=== PATIENT | female | born 1940 | race Caucasian/White ===

== ENCOUNTER 2023-06-19 10:44 | Emergency (ER) | payer MEDICARE, OTHER, SELFPAY ==
[2023-06-19] VITALS (34 sets, daily range): BP systolic 134–176; BP diastolic 48–64; PULSE 67–80; TEMP 36.6; O2SAT 90–100; BMI 21.8
--- NOTE | 2023-06-19 11:02 | ED.GENADUL1 ---
HPI HPI - General Adult General Chief complaint: Weakness Stated complaint: BLOOD PRESSURE Time Seen by Provider: 06/19/23 10:57 Source: patient Mode of arrival: ambulance Limitations: no limitations History of Present Illness HPI narrative: Brought by squad to the emergency room. Initially she called them because she has had a cough for couple of days. Initially she had some mucus. She did not see any blood in it. She did not have myalgias arthralgias sore throat or influenza type symptoms. She said today she continued to have a little bit of a cough but then she says she just did not feel very good and felt weak so she called for the paramedics. She did not have any chest pain pressure or heaviness in her chest. She he was seen by the paramedics who gave her nitroglycerin followed by labetalol and her initial blood pressure that was elevated by the report became quite low. On arrival here her blood pressure has stabilized. She is not having any discomfort heaviness or discomfort in her chest or abdomen area. She has not had nausea vomiting or diarrhea symptoms recently. She has not had any real change in her medications recently. 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 Related Data Home Medications ?Medication ?Instructions ?Recorded ?Confirmed amlodipine 5 mg tablet 5 mg PO DAILY 06/19/23 06/19/23 atorvastatin 80 mg tablet 40 mg PO .qhs 06/19/23 06/19/23 clopidogrel 75 mg tablet 75 mg PO DAILY 06/19/23 06/19/23 levothyroxine 100 mcg tablet 100 mcg PO DAILY 06/19/23 06/19/23 metoprolol succinate 25 mg 12.5 mg PO DAILY 06/19/23 06/19/23 tablet,extended release 24 hr prednisone 5 mg tablet 10 mg PO DAILY PRN flares 06/19/23 06/19/23 Allergies Allergy/AdvReac Type Severity Reaction Status Date / Time No Known Drug Allergies Allergy Verified 06/19/23 10:51 Opioid HPI Opioid Management Most Recent Opioid Data: No Data to Display Exam Narrative Exam Narrative: Patient was seen shortly after arrival she is awake alert oriented x 3 good historian denies any symptoms or discomfort at this time but still says she just feels a little bit weak. She is able to complete sentences she has no stridor she has no recurring cough or evidence of bronchospasm Her skin is warm and dry there is no clamminess or diaphoresis, mucous membranes are moist and pink. There is no scleral icterus or evidence of pallor Her lungs were clear with no wheeze rales or rhonchi. She does not have a bronchospastic Cough. Heart rate and rhythm were regular although her EKG showed ventricular trigeminy. She does not have any epigastric pain. Abdominal area is soft and supple with no guarding rebound rigidity or discomfort to palpation. Her extremities have good warmth no evidence of hypoperfusion no evidence of swelling or edema. Constitutional Vital Signs, click to edit/add: Last Vital Signs Temp 97.9 F 06/19/23 10:48 Pulse 68 06/19/23 13:15 Resp 31 H 06/19/23 11:45 BP 166/56 H 06/19/23 13:15 Pulse Ox 97 06/19/23 11:45 O2 Del Method Room Air 06/19/23 10:48 Course Vital Signs Vital signs: Vital Signs Temperature 97.9 F 06/19/23 10:48 Pulse Rate 70 06/19/23 10:48 Respiratory Rate 18 06/19/23 10:48 Blood Pressure 144/48 H 06/19/23 10:48 Pulse Oximetry 100 06/19/23 10:48 Oxygen Delivery Method Room Air 06/19/23 10:48 Temperature 97.9 F 06/19/23 10:48 Pulse Rate 68 06/19/23 13:15 Respiratory Rate 31 H 06/19/23 11:45 Blood Pressure 166/56 H 06/19/23 13:15 Pulse Oximetry 97 06/19/23 11:45 Oxygen Delivery Method Room Air 06/19/23 10:48 Medical Decision Making [facility] Narrative Medical decision making narrative: We did an extensive workup on this patient's symptoms. A respiratory panel was negative for all pathogens. Her lactate was modestly elevated but was coming down. She voided very efficiently and well her urine does not show any evidence urinary infection. She never had any further hypotension. I believe she was overmedicated by paramedics before arrival here. I will discuss her case for appropriate follow-up with her primary care doctor. Lab Data Labs: Lab Results 06/19/23 06/19/23 06/19/23 Range/Units 11:23 11:24 12:41 WBC 11.3 H (4.0-11.0) 10^3/uL RBC 4.28 (4.20-5.40) 10^6/uL Hgb 12.3 (12.0-16.0) g/dL Hct 37.6 (36.0-48.0) % MCV 87.9 (81.0-99.0) fL MCH 28.7 (26.7-34.0) pg MCHC 32.7 (29.9-35.2) g/dL RDW 13.1 (11.0-15.0) % Plt Count 222 (150-450) 10^3/uL MPV 10.7 (9.5-13.5) fL Neut % (Auto) 81.5 H (43.0-75.0) % Lymph % (Auto) 8.8 L (20.5-60.0) % [place] % (Auto) 8.2 (1.7-12.0) % Eos % (Auto) 0.7 L (0.9-7.0) % Baso % (Auto) 0.4 (0.2-2.0) % Neut # (Auto) 9.2 H (1.4-6.5) 10^3/uL Lymph # (Auto) 1.0 L (1.2-3.8) 10^3/uL [place] # (Auto) 0.9 H (0.3-0.8) 10^3/uL Eos # (Auto) 0.1 (0.0-0.7) 10^3/uL Baso # (Auto) 0.1 (0.0-0.1) 10^3/uL Abs Immat Gran (auto) 0.04 H (0.00-0.03) 10^3/uL Imm/Tot Granulo (auto) 0.4 (0.0-0.5) % PT 10.8 (9.0-11.6) sec INR 1.02 D-Dimer 1.10 H* (<=0.59) mg/L FEU VBG pH (7.330-7.430) VBG pCO2 (40.0-52.0) mmHg Sodium 131 L (136-145) mmol/L Potassium 3.2 L (3.5-5.1) mmol/L Chloride 97 L (98-107) mmol/L Carbon Dioxide 20.3 L (21.0-32.0) mmol/L Anion Gap 16.9 BUN 15.0 (7.0-18.0) mg/dL Creatinine 0.97 (0.55-1.02) mg/dL Est GFR ( Amer) >60 (>=60) Est GFR (Non-Af Amer) 55 L (>=60) BUN/Creatinine Ratio 15.5 Glucose 139 H (74-106) mg/dL Lactate 3.4 H* (0.4-2.0) mmol/L Calcium 8.5 (8.5-10.1) mg/dL Total Bilirubin 0.5 (0.2-1.0) mg/dL AST 23 (15-37) U/L ALT 22 (14-59) U/L Alkaline Phosphatase 79 (46-116) U/L Troponin I High Sens 40.5 (4.0-51.3) pg/mL NT-Pro-B Natriuret Pep 811.0 (<=1800.0) pg/mL Total Protein 6.7 (6.4-8.2) g/dL Albumin 2.9 L (3.4-5.0) g/dL Globulin 3.8 g/dL Albumin/Globulin Ratio 0.8 Procalcitonin <0.05 (0.00-0.50) ng/mL Urine Color Lt. yellow (YELLOW) Urine Clarity Clear (CLEAR) Urine pH 7.5 (5.0-9.0) Ur Specific [place] 1.015 (1.005-1.025) Urine Protein Negative (NEG/TRACE) mg/dL Urine Glucose (UA) Negative (NEGATIVE) mg/dL Urine Ketones Negative (NEGATIVE) mg/dL Urine Occult Blood Small A (NEGATIVE) Urine Nitrite Negative (NEGATIVE) Urine Bilirubin Negative (NEGATIVE) Urine Urobilinogen 0.2 (0.2-1.0) EU/dL Ur Leukocyte Esterase Negative (NEGATIVE) Urine RBC 5-10 A (0-2) #/HPF Urine WBC 0-2 A (NONE SEEN) #/HPF Ur Squamous Epith Cells Rare (NONE/RARE) #/LPF Urine Crystals None seen (None Seen) #/HPF Urine Bacteria Trace A (NONE SEEN) #/HPF Urine Casts None seen (NONE SEEN) #/LPF Urine Mucus None seen (NONE SEEN) Ur Culture Indicated? No Adenovirus (PCR) Not detected (NOT DETECTE) C. pneumoniae DNA (PCR) Not detected (NOT DETECTE) Coronavirus Type OC43 Not detected (NOT DETECTE) Coronavirus Type HKU1 Not detected (NOT DETECTE) Coronavirus Type 229E Not detected (NOT DETECTE) Coronavirus Type NL63 Not detected (NOT DETECTE) Human Metapneumovir PCR Not detected (NOT DETECTE) M. pneumoniae (PCR) Not detected (NOT DETECTE) Parainfluenza PCR Not detected (NOT DETECTE) Parainfluenza 2 (PCR) Not detected (NOT DETECTE) Parainfluenza 3 (PCR) Not detected (NOT DETECTE) Parainfluenza 4 (PCR) Not detected (NOT DETECTE) RSV (RT-PCR) Not detected (NOT DETECTE) Entero/Rhino (PCR) Not detected (NOT DETECTE) SARS-CoV-2 (PCR) Not detected (NOT DETECTE) Bordetella pertussis (PCR) Not detected (NOT DETECTE) B parapertussis DNA PCR Not detected (NOT DETECTE) Influenza Type A (PCR) Not detected (NOT DETECTE) Influenza Type B (PCR) Not detected (NOT DETECTE) 06/19/23 06/19/23 Range/Units 12:55 14:26 WBC (4.0-11.0) 10^3/uL RBC (4.20-5.40) 10^6/uL Hgb (12.0-16.0) g/dL Hct (36.0-48.0) % MCV (81.0-99.0) fL MCH (26.7-34.0) pg MCHC (29.9-35.2) g/dL RDW (11.0-15.0) % Plt Count (150-450) 10^3/uL MPV (9.5-13.5) fL Neut % (Auto) (43.0-75.0) % Lymph % (Auto) (20.5-60.0) % [place] % (Auto) (1.7-12.0) % Eos % (Auto) (0.9-7.0) % Baso % (Auto) (0.2-2.0) % Neut # (Auto) (1.4-6.5) 10^3/uL Lymph # (Auto) (1.2-3.8) 10^3/uL [place] # (Auto) (0.3-0.8) 10^3/uL Eos # (Auto) (0.0-0.7) 10^3/uL Baso # (Auto) (0.0-0.1) 10^3/uL Abs Immat Gran (auto) (0.00-0.03) 10^3/uL Imm/Tot Granulo (auto) (0.0-0.5) % PT (9.0-11.6) sec INR D-Dimer (<=0.59) mg/L FEU VBG pH 7.415 (7.330-7.430) VBG pCO2 33.5 L (40.0-52.0) mmHg Sodium (136-145) mmol/L Potassium (3.5-5.1) mmol/L Chloride (98-107) mmol/L Carbon Dioxide (21.0-32.0) mmol/L Anion Gap BUN (7.0-18.0) mg/dL Creatinine (0.55-1.02) mg/dL Est GFR ( Amer) (>=60) Est GFR (Non-Af Amer) (>=60) BUN/Creatinine Ratio Glucose (74-106) mg/dL Lactate 3.3 H* (0.4-2.0) mmol/L Calcium (8.5-10.1) mg/dL Total Bilirubin (0.2-1.0) mg/dL AST (15-37) U/L ALT (14-59) U/L Alkaline Phosphatase (46-116) U/L Troponin I High Sens (4.0-51.3) pg/mL NT-Pro-B Natriuret Pep (<=1800.0) pg/mL Total Protein (6.4-8.2) g/dL Albumin (3.4-5.0) g/dL Globulin g/dL Albumin/Globulin Ratio Procalcitonin (0.00-0.50) ng/mL Urine Color (YELLOW) Urine Clarity (CLEAR) Urine pH (5.0-9.0) Ur Specific [place] (1.005-1.025) Urine Protein (NEG/TRACE) mg/dL Urine Glucose (UA) (NEGATIVE) mg/dL Urine Ketones (NEGATIVE) mg/dL Urine Occult Blood (NEGATIVE) Urine Nitrite (NEGATIVE) Urine Bilirubin (NEGATIVE) Urine Urobilinogen (0.2-1.0) EU/dL Ur Leukocyte Esterase (NEGATIVE) Urine RBC (0-2) #/HPF Urine WBC (NONE SEEN) #/HPF Ur Squamous Epith Cells (NONE/RARE) #/LPF Urine Crystals (None Seen) #/HPF Urine Bacteria (NONE SEEN) #/HPF Urine Casts (NONE SEEN) #/LPF Urine Mucus (NONE SEEN) Ur Culture Indicated? Adenovirus (PCR) (NOT DETECTE) C. pneumoniae DNA (PCR) (NOT DETECTE) Coronavirus Type OC43 (NOT DETECTE) Coronavirus Type HKU1 (NOT DETECTE) Coronavirus Type 229E (NOT DETECTE) Coronavirus Type NL63 (NOT DETECTE) Human Metapneumovir PCR (NOT DETECTE) M. pneumoniae (PCR) (NOT DETECTE) Parainfluenza PCR (NOT DETECTE) Parainfluenza 2 (PCR) (NOT DETECTE) Parainfluenza 3 (PCR) (NOT DETECTE) Parainfluenza 4 (PCR) (NOT DETECTE) RSV (RT-PCR) (NOT DETECTE) Entero/Rhino (PCR) (NOT DETECTE) SARS-CoV-2 (PCR) (NOT DETECTE) Bordetella pertussis (PCR) (NOT DETECTE) B parapertussis DNA PCR (NOT DETECTE) Influenza Type A (PCR) (NOT DETECTE) Influenza Type B (PCR) (NOT DETECTE) Discharge Plan Discharge Stand Alone Forms: Portal Instructions Chief Complaint: Weakness Clinical Impression: Weakness Patient Disposition: Home, Self-Care Time of Disposition Decision: 15:28 Prescriptions / Home Meds: No Action amlodipine 5 mg tablet 5 mg PO DAILY atorvastatin 80 mg tablet 40 mg PO .qhs clopidogrel 75 mg tablet 75 mg PO DAILY levothyroxine 100 mcg tablet 100 mcg PO DAILY metoprolol succinate 25 mg tablet extended release 24 hr 12.5 mg PO DAILY prednisone 5 mg tablet 10 mg PO DAILY PRN (Reason: flares) Print Language: Lithuanian Additional Instructions: Continue present medication. Follow-up with your primary care doctor this week. Return should there be any change in your symptoms Referrals: Jonathon Alvarez MD [Primary Care Provider] - 1 week
--- NOTE | 2023-06-19 11:06 | XR_ITS ---
The [address] [address] Patient Name: MARISOL BARBOSA MRN: [id number] date: 1940 Sex: F Assigned Patient Location: ER Current Patient Location: ER Accession/Order Number: [id number] Exam Date: 06/19/2023 11:35 Report Date: 06/19/2023 13:17 At the request of: NATASHA GARG Procedure: XR chest 1V PROCEDURE: XR chest 1V, 06/19/2023 11:35 AM EDT CLINICAL INDICATIONS: Cough, symptoms for 3 days, weakness, hypertension COMPARISON: 01/02/2010 TECHNIQUE: Upright portable chest 1135 hours FINDINGS: There has been previous sternotomy. The heart is enlarged. Moderate thoracic aortic calcified plaque noted. Lung volumes upper normal. Trace bronchial wall thickening noted. Acute consolidation, pleural effusion, or pneumothorax is not demonstrated. Bilateral shoulder arthropathy is seen. Acute osseous pathology is not evident. Regional soft tissues normal. XR/XR chest 1V IMPRESSION: 1. Cardiomegaly 2. Trace bronchial wall thickening noted. Mild bronchitis, airways disease could present this pattern. 3. No acute pulmonary consolidation, pleural effusion or pneumothorax Electronically authenticated by: SAMANTA TABARES Date: 06/19/2023 13:17
--- NOTE | 2023-06-19 11:06 | ECG_ITS ---
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
[2023-06-19] MEDS: 0.9 % SODIUM CHLORIDE 1,000 ML 999 ML IV (11:10)
[2023-06-19 11:36] LABS: Basophils Absolute Auto 0.1 10^3/uL (0.0-0.1); Basophils Percent Auto 0.4 % (0.2-2.0); Eosinophils Absolute Auto 0.1 10^3/uL (0.0-0.7); Eosinophils Percent Auto 0.7 % (0.9-7.0); Hematocrit 37.6 % (36.0-48.0); Hemoglobin 12.3 g/dL (12.0-16.0); Immature Granulocytes Abs Auto 0.04 10^3/uL (0.00-0.03); Immature Granulocytes Pct Auto 0.4 % (0.0-0.5); Lymphocytes Percent Auto 8.8 % (20.5-60.0); Mean Corpuscular HGB Conc 32.7 g/dL (29.9-35.2); Mean Corpuscular Hemoglobin 28.7 pg (26.7-34.0); Mean Corpuscular Volume 87.9 fL (81.0-99.0); Mean Platelet Volume 10.7 fL (9.5-13.5); Monocytes Absolute Auto 0.9 10^3/uL (0.3-0.8); Monocytes Percent Auto 8.2 % (1.7-12.0); Neutrophils Absolute Auto 9.2 10^3/uL (1.4-6.5); Neutrophils Percent Auto 81.5 % (43.0-75.0); Platelet Count 222 10^3/uL (150-450); Red Blood Count 4.28 10^6/uL (4.20-5.40); Red Cell Distribution Width 13.1 % (11.0-15.0); White Blood Count 11.3 10^3/uL (4.0-11.0)
[2023-06-19 11:36] LABS: Adenovirus NOT DETECTED (NOT DETECTE); Bordetella parapertussis NOT DETECTED (NOT DETECTE); Coronavirus 229E NOT DETECTED (NOT DETECTE); Coronavirus HKU1 NOT DETECTED (NOT DETECTE); Coronavirus NL63 NOT DETECTED (NOT DETECTE); Coronavirus OC43 NOT DETECTED (NOT DETECTE); Human Metapneumovirus NOT DETECTED (NOT DETECTE); Human Rhinovirus/Enterovirus NOT DETECTED (NOT DETECTE); Influenza A NOT DETECTED (NOT DETECTE); Influenza B NOT DETECTED (NOT DETECTE); Mycoplasma pneumoniae NOT DETECTED (NOT DETECTE); Parainfluenza Virus 1 NOT DETECTED (NOT DETECTE); Parainfluenza Virus 2 NOT DETECTED (NOT DETECTE); Parainfluenza Virus 3 NOT DETECTED (NOT DETECTE); Parainfluenza Virus 4 NOT DETECTED (NOT DETECTE); Respiratory Syncytial Virus NOT DETECTED (NOT DETECTE); SARS-CoV-2 NOT DETECTED (NOT DETECTE)
--- NOTE | 2023-06-19 11:39 | ECG_ITS ---
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
[2023-06-19] MEDS: ONDANSETRON PF 4 MG/2 ML VIAL IV (11:45)
[2023-06-19 12:05] LABS: Alanine Aminotransferase 22 U/L (14-59); Albumin Globulin Ratio 0.8; Albumin Level 2.9 g/dL (3.4-5.0); Alkaline Phosphatase 79 U/L (46-116); Anion Gap 16.9; Aspartate Amino Transferase 23 U/L (15-37); BUN Creatinine Ratio 15.5; Bilirubin Total 0.5 mg/dL (0.2-1.0); Calcium 8.5 mg/dL (8.5-10.1); Carbon Dioxide 20.3 mmol/L (21.0-32.0); Chloride 97 mmol/L (98-107); Estimated GFR (African America >60 (>=60); Estimated GFR (Non-African Ame 55 (>=60); Globulin 3.8 g/dL; Glucose 139 mg/dL (74-106); Potassium 3.2 mmol/L (3.5-5.1); Sodium 131 mmol/L (136-145); Total Protein 6.7 g/dL (6.4-8.2); Troponin I High Sensitivity 40.5 pg/mL (4.0-51.3)
[2023-06-19 12:09] LABS: Lactate/Lactic Acid 3.4 mmol/L (0.4-2.0)
--- NOTE | 2023-06-19 12:24 | CT_ITS ---
The [address] [address] Patient Name: MARISOL BARBOSA MRN: [id number] date: 1940 Sex: F Assigned Patient Location: ER Current Patient Location: ER Accession/Order Number: [id number] Exam Date: 06/19/2023 13:30 Report Date: 06/19/2023 15:16 At the request of: NATASHA GARG Procedure: CT angio chest EXAMINATION: CT angio chest HISTORY: Weakness/elevated D-dimer COMPARISON: None. TECHNIQUE: Axial scans obtained postcontrast. Type and amount of contrast specified at institution. MIP (maximum intensity projection) images or 3D post processing was performed. Dose reduction techniques were achieved by using automated exposure control and/or adjustment of mA and/or kV according to patient size and/or use of iterative reconstruction technique. FINDINGS: Bolus opacification of the pulmonary arteries was adequate for purposes of diagnosis. There is no central, lobar, or segmental pulmonary arterial filling defect to suggest pulmonary embolus. Focal peripheral patchy infiltrate lateral segment left lower lobe likely atelectasis. Lungs otherwise clear and expanded. No pneumothorax. No hilar or mediastinal lymphadenopathy. Prior sternotomy and CABG. Cardiac chambers are normal in size. No pericardial effusion. Atherosclerotic changes involving wall of aorta with calcified plaque. No dissection or aneurysm. No pulmonary venous congestion. There is no pleural effusion or mass. No pulmonary nodules or masses are identified. No acute upper abdominal findings. Cholecystectomy. There is no body wall mass. There is no destructive osseous process. CT/CT angio chest IMPRESSION: 1. Negative for acute PE. 2. Localized scarring and atelectasis lateral segment left lower lobe. Electronically authenticated by: BRITTANI SANCHEZ Date: 06/19/2023 15:16
[2023-06-19] MEDS: 0.9 % SODIUM CHLORIDE 1,641 ML 547 ML IV (12:45)
[2023-06-19 12:52] LABS: INR 1.02; Prothrombin Time 10.8 sec (9.0-11.6)
[2023-06-19 13:08] LABS: PCO2 VBG 33.5 mmHg (40.0-52.0); pH VBG 7.415 (7.330-7.430)
[2023-06-19 13:09] LABS: Bilirubin Urine NEGATIVE (NEGATIVE); Blood Urine SMALL (NEGATIVE); Clarity Urine CLEAR (CLEAR); Color Urine LT. YELLOW (YELLOW); Glucose Urine UA NEGATIVE (NEGATIVE); Ketones Urine NEGATIVE (NEGATIVE); Leukocyte Esterase Urine NEGATIVE (NEGATIVE); Nitrite Urine NEGATIVE (NEGATIVE); Protein Urine NEGATIVE (NEG/TRACE); Specific Gravity Urine 1.015 (1.005-1.025); Urobilinogen Urine 0.2 EU/dL (0.2-1.0); pH Urine 7.5 (5.0-9.0)
[2023-06-19 13:14] LABS: Urine Microscopic Indicated YES
[2023-06-19 13:17] LABS: Bacteria Urine TRACE #/HPF (NONE SEEN); Cast Seen? NONE SEEN #/LPF (NONE SEEN); Crystals Seen? None Seen #/HPF (None Seen); Mucus Urine NONE SEEN (NONE SEEN); Squamous Epithelial Cell Urine RARE #/LPF (NONE/RARE); Urine Culture Indicated NO; WBC Urine 0-2 #/HPF (NONE SEEN)
[2023-06-19 13:17] LABS: PROCALCITONIN <0.05 ng/mL (0.00-0.50)
--- NOTE | 2023-06-19 13:27 | CT_ITS ---
The [address] [address] Patient Name: MARISOL BARBOSA MRN: [id number] date: 1940 Sex: F Assigned Patient Location: ER Current Patient Location: ER Accession/Order Number: [id number] Exam Date: 06/19/2023 13:30 Report Date: 06/19/2023 13:58 At the request of: NATASHA GARG Procedure: CT head/brain wo con EXAM: CT head/brain wo con HISTORY: dizziness,HTN COMPARISON: CT brain 01/02/2022 TECHNIQUE: Axial CT scans through the head were obtained without IV contrast administration. Dose reduction techniques were achieved by using: automated exposure control and/or adjustment of mA and /or kV according to patient size and/or use of iterative reconstruction technique. FINDINGS: There is no evidence of acute intracranial hemorrhage or abnormal extra-axial fluid collection. No mass effect or midline shift is seen. There is no evidence of large acute territorial infarction. There is no hydrocephalus. The cortical sulci and ventricles are within normal limits. Moderate decreased attenuation of the supratentorial white matter, likely represents chronic microvascular ischemia. To the limit of CT, the posterior fossa appears unremarkable. Mild atherosclerotic calcifications of bilateral intracranial carotid arteries. No definite acute fracture is identified. Soft tissues are unremarkable. The visualized orbits show no abnormality. The visualized paranasal sinuses show no air-fluid level. Mastoid air cells are clear. CT/CT head/brain wo con IMPRESSION: No CT evidence of acute intracranial abnormality. If there is sufficient clinical concern for acute brain parenchymal pathology, consider MRI for further evaluation. Moderate chronic microvascular ischemia. Electronically authenticated by: TAN ARCEU Date: 06/19/2023 13:58
[2023-06-19 15:13] LABS: Lactate/Lactic Acid 3.3 mmol/L (0.4-2.0)
== END 2023-06-19 16:06 | disposition home or self-care (01) ==
PROVIDERS: Emergency Provider Emergency Medicine Emergency Medical Services; Family Provider Internal Medicine Interventional Cardiology; PCP Family Medicine
DX: R53.1 Weakness (principal); Z20.822 Contact with and (suspected) exposure to COVID-19; R79.1 Abnormal coagulation profile; Z79.899 Other long term (current) drug therapy; Z79.890 Hormone replacement therapy; Z79.02 Long term (current) use of antithrombotics/antiplatelets; Z95.1 Presence of aortocoronary bypass graft
CPT/HCPCS: 0202U; 36415; 70450; 71045; 71275; 80053; 81001; 82800; 83605; 83880; 84145; 84484; 85025; 85378; 85610; 87040; 93005; 96374; 99285; Q9967

== ENCOUNTER 2023-07-15 07:22 | Outpatient (OUT) | payer MEDICARE, OTHER, SELFPAY ==
[2023-07-15 08:01] LABS: Basophils Absolute Auto 0.1 10^3/uL (0.0-0.1); Basophils Percent Auto 0.8 % (0.2-2.0); Eosinophils Absolute Auto 0.3 10^3/uL (0.0-0.7); Eosinophils Percent Auto 4.1 % (0.9-7.0); Hematocrit 41.2 % (36.0-48.0); Hemoglobin 13.3 g/dL (12.0-16.0); Immature Granulocytes Abs Auto 0.02 10^3/uL (0.00-0.03); Immature Granulocytes Pct Auto 0.3 % (0.0-0.5); Lymphocytes Absolute Auto 2.1 10^3/uL (1.2-3.8); Lymphocytes Percent Auto 28.2 % (20.5-60.0); Mean Corpuscular HGB Conc 32.3 g/dL (29.9-35.2); Mean Corpuscular Hemoglobin 28.7 pg (26.7-34.0); Mean Corpuscular Volume 88.8 fL (81.0-99.0); Mean Platelet Volume 10.4 fL (9.5-13.5); Monocytes Absolute Auto 0.7 10^3/uL (0.3-0.8); Monocytes Percent Auto 9.9 % (1.7-12.0); Neutrophils Absolute Auto 4.1 10^3/uL (1.4-6.5); Neutrophils Percent Auto 56.7 % (43.0-75.0); Platelet Count 288 10^3/uL (150-450); Red Blood Count 4.64 10^6/uL (4.20-5.40); Red Cell Distribution Width 13.9 % (11.0-15.0); White Blood Count 7.3 10^3/uL (4.0-11.0)
[2023-07-15 10:32] LABS: Alanine Aminotransferase 22 U/L (14-59); Albumin Globulin Ratio 0.8; Albumin Level 3.3 g/dL (3.4-5.0); Alkaline Phosphatase 82 U/L (46-116); Anion Gap 12.8; Aspartate Amino Transferase 20 U/L (15-37); BUN Creatinine Ratio 16.5; Bilirubin Direct 0.1 mg/dL (0.0-0.2); Bilirubin Total 0.5 mg/dL (0.2-1.0); Calcium 9.4 mg/dL (8.5-10.1); Chloride 103 mmol/L (98-107); Chol HDL Ratio 2.2; Cholesterol 146 mg/dL (<=200); Estimated GFR (African America >60 (>=60); Estimated GFR (Non-African Ame 51 (>=60); Free T3 2.54 pg/mL (2.18-3.98); Globulin 4.1 g/dL; Glucose 91 mg/dL (74-106); HDL Cholesterol 67 mg/dL (40-60); Potassium 3.8 mmol/L (3.5-5.1); Sodium 140 mmol/L (136-145); Thyroid Stimulating Hormone 0.543 uIU/mL (0.358-3.740); Total Protein 7.4 g/dL (6.4-8.2); Triglycerides 98 mg/dL (<=150); VLDL CHOLESTEROL 19.6 mg/dL
[2023-07-15 10:39] LABS: Free T4 1.33 ng/dL (0.76-1.46)
== END 2023-07-15 07:23 | disposition home or self-care (01) ==
LOC: LAB 07:24
PROVIDERS: Family Provider Internal Medicine Interventional Cardiology; PCP Family Medicine; Visit Provider Family Medicine
DX: E78.5 Hyperlipidemia, unspecified (principal); N18.31 Chronic kidney disease, stage 3a; Z79.899 Other long term (current) drug therapy; E03.9 Hypothyroidism, unspecified; I12.9 Hypertensive chronic kidney disease with stage 1 through stage 4 chronic kidney disease, or unspecified chronic kidney disease
CPT/HCPCS: 36415; 80048; 80061; 80076; 82306; 84439; 84443; 84481; 85025

== ENCOUNTER 2023-09-26 10:44 | Observation (INO) | payer MEDICARE, OTHER, SELFPAY ==
[2023-09-26] VITALS (36 sets, daily range): BP systolic 128–224; BP diastolic 51–80; PULSE 47–70; TEMP 36.4–36.8; O2SAT 90–100; BMI 21.5; BMI 22.5
--- NOTE | 2023-09-26 11:37 | CT_ITS ---
The [address] [address] Patient Name: MARISOL BARBOSA MRN: [id number] date: 1940 Sex: F Assigned Patient Location: ER Current Patient Location: ER Accession/Order Number: [id number] Exam Date: 09/26/2023 12:15 Report Date: 09/26/2023 12:39 At the request of: JASON BRODY Procedure: CT head/brain wo con EXAM: CT head/brain wo con HISTORY: dizziness COMPARISON: CT brain 06/19/2023 TECHNIQUE: Axial CT scans through the head were obtained without IV contrast administration. Dose reduction techniques were achieved by using: automated exposure control and/or adjustment of mA and /or kV according to patient size and/or use of iterative reconstruction technique. FINDINGS: There is no evidence of acute intracranial hemorrhage or abnormal extra-axial fluid collection. No mass effect or midline shift is seen. There is no evidence of large acute territorial infarction. There is no hydrocephalus. Old lacunar infarction versus dilated perivascular space in the left basal ganglia. There is mild global cortical atrophy with periventricular decreased white matter attenuation. To the limit of CT, the posterior fossa appears unremarkable. There are atherosclerotic calcifications of bilateral cavernous carotid arteries No definite acute fracture is identified. Soft tissues are unremarkable. The visualized orbits show no abnormality. The visualized paranasal sinuses show no air-fluid level. Mastoid air cells are clear. CT/CT head/brain wo con IMPRESSION: No CT evidence of acute intracranial abnormality. If there is clinical suspicion for acute cerebrovascular accident, brain MRI would be recommended for further evaluation. Moderate chronic microvascular ischemic changes. Electronically authenticated by: TAN UNLU Date: 09/26/2023 12:39
--- NOTE | 2023-09-26 11:37 | ECG_ITS ---
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
--- NOTE | 2023-09-26 11:37 | XR_ITS ---
The [address] [address] Patient Name: MARISOL BARBOSA MRN: [id number] date: 1940 Sex: F Assigned Patient Location: ER Current Patient Location: MS Accession/Order Number: [id number] Exam Date: 09/26/2023 12:13 Report Date: 09/26/2023 14:39 At the request of: JASON BRODY Procedure: XR chest 1V EXAM: XR chest 1V HISTORY: dizziness COMPARISON: Chest 06/19/2023. TECHNIQUE: One view of the chest. FINDINGS: There are median sternotomy wires and mediastinal surgical clips consistent with CABG. The cardiac silhouette is normal in size. There is mild ectasia and atherosclerotic calcification of the thoracic aorta. Lungs are clear. There is no pleural effusion or pneumothorax. Bones and soft tissues appear unremarkable. XR/XR chest 1V IMPRESSION: No acute cardiopulmonary process. Electronically authenticated by: JOHANA CISNEROS Date: 09/26/2023 14:39
--- NOTE | 2023-09-26 11:42 | ED_ITS ---
HPI HPI - General Adult General Chief complaint: Dizziness Stated complaint: DIZZINESS/NAUSEA Time Seen by Provider: 09/26/23 10:47 Source: patient Mode of arrival: walk-in History of Present Illness HPI narrative: 83-year-old female to the emergency department with chief complaint of dizziness. Patient reports that she woke up this morning and feels persistently dizzy and nauseous. This has been worsening over the last 2 days. She reports her blood pressure has been high at home. She does have a history of hypertension on amlodipine and Coreg. She has been taking her medications. She denies any vision changes, numbness, weakness, tingling. She reports difficulty walking. Related Data Home Medications ?Medication ?Instructions ?Recorded ?Confirmed amlodipine 5 mg tablet 5 mg PO DAILY 06/19/23 09/26/23 atorvastatin 80 mg tablet 40 mg PO .qhs 06/19/23 09/26/23 clopidogrel 75 mg tablet 75 mg PO DAILY 06/19/23 09/26/23 levothyroxine 100 mcg tablet 100 mcg PO DAILY 06/19/23 09/26/23 prednisone 5 mg tablet 10 mg PO DAILY PRN flares 06/19/23 09/26/23 carvedilol 12.5 mg tablet 12.5 mg PO Q12H 09/26/23 09/26/23 sodium chloride 1,000 mg soluble 1,000 mg PO BID 09/26/23 09/26/23 tablet Allergies Allergy/AdvReac Type Severity Reaction Status Date / Time No Known Drug Allergies Allergy Verified 06/19/23 10:51 Opioid HPI Opioid Management Most Recent Opioid Data: No Data to Display Review of Systems ROS Status of ROS 10 or more systems reviewed and unremark able except as noted in history and below Exam Narrative Exam Narrative: VITALS: I have reviewed the triage vital signs. GENERAL: Well developed, well appearing adult in no acute distress. NEURO: Alert and oriented x4. Moves all extremities. Face is symmetric and expressive. Cranial nerves II through XII grossly intact as tested. Muscular strength and sensation grossly intact upper and lower extremities bilaterally. No dysarthria. No aphasia. No ataxia. Normal gait. NIHSS 0. EYES: PERRL. No scleral icterus or conjunctival injection. No discharge. HENT: Normocephalic, atraumatic. Hearing is grossly intact. Nares grossly patent and without discharge. Mucous membranes moist. NECK: No JVD. Patient moves neck without restriction. CARDIO: Rhythm regular. Normal rate. No murmur, rub, or gallop. Pulses equal bilaterally in the upper and lower extremity. No lower extremity edema. PULM: Lungs clear to auscultation in all giron. No wheezes, rales, or rhonchi. No conversational dyspnea. No splinting, stridor, or accessory muscle use. GI/: Abdomen is soft and non-tender. Normoactive bowel sounds. EXTREMITIES: Symmetric muscle bulk. No joint swelling. No clubbing, cyanosis, or deformity. SKIN: Warm and dry. Normal turgor. No rash or lesions appreciated. PSYCH: Mood, affect, and interaction is appropriate to the setting. Constitutional Vital Signs, click to edit/add: Last Vital Signs Temp 97.9 F 09/26/23 10:48 Pulse 50 L 09/26/23 13:02 Resp 19 09/26/23 13:02 BP 187/64 H 09/26/23 13:02 Pulse Ox 97 09/26/23 13:02 O2 Del Method Room Air 09/26/23 10:48 Course Vital Signs Vital signs: Vital Signs Temperature 97.9 F 09/26/23 10:48 Pulse Rate 67 09/26/23 10:48 Respiratory Rate 16 09/26/23 10:48 Blood Pressure 220/80 H 09/26/23 10:48 Pulse Oximetry 99 09/26/23 10:48 Oxygen Delivery Method Room Air 09/26/23 10:48 Temperature 97.9 F 09/26/23 10:48 Pulse Rate 50 L 09/26/23 13:02 Respiratory Rate 19 09/26/23 13:02 Blood Pressure 187/64 H 09/26/23 13:02 Pulse Oximetry 97 09/26/23 13:02 Oxygen Delivery Method Room Air 09/26/23 10:48 Medical Decision Making [facility] Narrative Medical decision making narrative: 83-year-old female to the emergency department with chief complaint of dizziness. Hypertensive, otherwise stable vitals. No focal neurologic deficits appreciated on exam. Basic labs ordered. CT imaging of the head to evaluate for stroke. Will trend her blood pressure to see where she settles out and determine need for acute intervention. Zofran for nausea. Patient and her son agree with this plan. Lab work reviewed and noted. She is hyponatremic 140 down to 127 today. Blood pressure is improving. Patient feels improved. Her blood pressure did spike back up in the 200s. 5 of IV hydralazine was given. Case discussed with the hospitalist who agreed admit the patient to his service. Patient and her son agree with this plan Medical Records Medical records reviewed: Yes I reviewed the patient's medical records Lab Data Lab results reviewed: Yes I reviewed the patient's lab results Labs: Lab Results 09/26/23 09/26/23 09/26/23 Range/Units 10:56 11:37 12:00 WBC 9.7 (4.0-11.0) 10^3/uL RBC 5.32 (4.20-5.40) 10^6/uL Hgb 15.4 (12.0-16.0) g/dL Hct 45.4 (36.0-48.0) % MCV 85.3 (81.0-99.0) fL MCH 28.9 (26.7-34.0) pg MCHC 33.9 (29.9-35.2) g/dL RDW 13.7 (11.0-15.0) % Plt Count 298 (150-450) 10^3/uL MPV 10.8 (9.5-13.5) fL Neut % (Auto) 72.2 (43.0-75.0) % Lymph % (Auto) 18.7 L (20.5-60.0) % [place] % (Auto) 6.7 (1.7-12.0) % Eos % (Auto) 1.6 (0.9-7.0) % Baso % (Auto) 0.5 (0.2-2.0) % Neut # (Auto) 7.0 H (1.4-6.5) 10^3/uL Lymph # (Auto) 1.8 (1.2-3.8) 10^3/uL [place] # (Auto) 0.7 (0.3-0.8) 10^3/uL Eos # (Auto) 0.2 (0.0-0.7) 10^3/uL Baso # (Auto) 0.1 (0.0-0.1) 10^3/uL Abs Immat Gran (auto) 0.03 (0.00-0.03) 10^3/uL Imm/Tot Granulo (auto) 0.3 (0.0-0.5) % Sodium 127 L (136-145) mmol/L Potassium 3.8 (3.5-5.1) mmol/L Chloride 92 L (98-107) mmol/L Carbon Dioxide 26.9 (21.0-32.0) mmol/L Anion Gap 11.9 BUN 17.0 (7.0-18.0) mg/dL Creatinine 0.86 (0.55-1.02) mg/dL Est GFR ( Amer) >60 (>=60) Est GFR (Non-Af Amer) >60 (>=60) BUN/Creatinine Ratio 19.8 Glucose 113 H (74-106) mg/dL Calcium 9.1 (8.5-10.1) mg/dL Troponin I High Sens 47.3 (4.0-51.3) pg/mL Urine Color Lt. yellow (YELLOW) Urine Clarity Clear (CLEAR) Urine pH 7.0 (5.0-9.0) Ur Specific [place] 1.010 (1.005-1.025) Urine Protein Negative (NEG/TRACE) mg/dL Urine Glucose (UA) Negative (NEGATIVE) mg/dL Urine Ketones Negative (NEGATIVE) mg/dL Urine Occult Blood Negative (NEGATIVE) Urine Nitrite Negative (NEGATIVE) Urine Bilirubin Negative (NEGATIVE) Urine Urobilinogen 0.2 (0.2-1.0) EU/dL Ur Leukocyte Esterase Negative (NEGATIVE) ECG Data Attestation: I personally reviewed and interpreted this ECG as follows: (Normal sinus rhythm at a rate of 58. Normal QTc. No STEMI.) Critical Care Time Critical Care Time Critical Care Time: Yes Total Critical Care Time: 31 Attestation: Critical Care Procedure Note Authorized and Performed by: Costa Nance DO Total critical care time: 31 minutes Due to a high probability of clinically significant, life threatening deterioration, the patient required my highest level of preparedness to intervene emergently and I personally spent this critical care time directly and personally managing the patient. This critical care time included obtaining a history; examining the patient; pulse oximetry; ordering and review of studies; arranging urgent treatment with development of a management plan; evaluation of patient's response to treatment; frequent reassessment; and, discussions with other providers. This critical care time was performed to assess and manage the high probability of imminent, life-threatening deterioration that could result in multi-organ failure. It was exclusive of separately billable procedures and treating other patients and teaching time. Please see MDM section and the rest of the note for further information on patient assessment and treatment. Discharge Plan Discharge Chief Complaint: Dizziness Clinical Impression: Hyponatremia, Hypertension Patient Disposition: Admitted as Observation Time of Disposition Decision: 13:42 Condition: Fair Prescriptions / Home Meds: No Action amlodipine 5 mg tablet 5 mg PO DAILY atorvastatin 80 mg tablet 40 mg PO .qhs clopidogrel 75 mg tablet 75 mg PO DAILY levothyroxine 100 mcg tablet 100 mcg PO DAILY prednisone 5 mg tablet 10 mg PO DAILY PRN (Reason: flares) sodium chloride 1,000 mg tablet,soluble 1,000 mg PO BID carvedilol 12.5 mg tablet 12.5 mg PO Q12H Print Language: Pakistani Referrals: Jonathon Alvarez MD [Primary Care Provider] - 1 week
[2023-09-26 11:49] LABS: Basophils Absolute Auto 0.1 10^3/uL (0.0-0.1); Basophils Percent Auto 0.5 % (0.2-2.0); Eosinophils Absolute Auto 0.2 10^3/uL (0.0-0.7); Eosinophils Percent Auto 1.6 % (0.9-7.0); Hematocrit 45.4 % (36.0-48.0); Hemoglobin 15.4 g/dL (12.0-16.0); Immature Granulocytes Abs Auto 0.03 10^3/uL (0.00-0.03); Immature Granulocytes Pct Auto 0.3 % (0.0-0.5); Lymphocytes Absolute Auto 1.8 10^3/uL (1.2-3.8); Lymphocytes Percent Auto 18.7 % (20.5-60.0); Mean Corpuscular HGB Conc 33.9 g/dL (29.9-35.2); Mean Corpuscular Hemoglobin 28.9 pg (26.7-34.0); Mean Corpuscular Volume 85.3 fL (81.0-99.0); Mean Platelet Volume 10.8 fL (9.5-13.5); Monocytes Absolute Auto 0.7 10^3/uL (0.3-0.8); Monocytes Percent Auto 6.7 % (1.7-12.0); Neutrophils Percent Auto 72.2 % (43.0-75.0); Platelet Count 298 10^3/uL (150-450); Red Blood Count 5.32 10^6/uL (4.20-5.40); Red Cell Distribution Width 13.7 % (11.0-15.0); White Blood Count 9.7 10^3/uL (4.0-11.0)
[2023-09-26 12:09] LABS: Anion Gap 11.9; BUN Creatinine Ratio 19.8; Calcium 9.1 mg/dL (8.5-10.1); Carbon Dioxide 26.9 mmol/L (21.0-32.0); Chloride 92 mmol/L (98-107); Estimated GFR (African America >60 (>=60); Estimated GFR (Non-African Ame >60 (>=60); Glucose 113 mg/dL (74-106); Potassium 3.8 mmol/L (3.5-5.1); Sodium 127 mmol/L (136-145)
[2023-09-26 12:12] LABS: Bilirubin Urine NEGATIVE (NEGATIVE); Blood Urine NEGATIVE (NEGATIVE); Clarity Urine CLEAR (CLEAR); Color Urine LT. YELLOW (YELLOW); Glucose Urine UA NEGATIVE (NEGATIVE); Ketones Urine NEGATIVE (NEGATIVE); Leukocyte Esterase Urine NEGATIVE (NEGATIVE); Nitrite Urine NEGATIVE (NEGATIVE); Protein Urine NEGATIVE (NEG/TRACE); Urobilinogen Urine 0.2 EU/dL (0.2-1.0)
[2023-09-26 12:15] LABS: Troponin I High Sensitivity 47.3 pg/mL (4.0-51.3)
[2023-09-26 12:20] LABS: Urine Microscopic Indicated NO
--- NOTE | 2023-09-26 13:37 | P.HP_ITS ---
HPI H&P: HPI History of Present Illness Chief complaint: DIZZINESS/NAUSEA Narrative: Patient presented to the emergency room with increasing dizziness. She does describe 2 types of dizziness, she does have some vertiginous symptoms but also more off-balance lightheaded symptoms. In ER blood pressure significantly elevated, improving slowly on its own, with dizziness and off-balance persisting. Found to have significant hyponatremia. When she had her bypass surgery approximately 20 months ago she had issues with hyponatremia and spending additional week trying to resolve this. She to her knowledge does not have an etiology for why she becomes hyponatremic. She was placed on sodium chloride tablets. Has been stable with that. When I saw patient in the emergency room, she was resting comfortably in bed, did not move significantly with her head secondary to that causing exacerbation of her dizziness. Opioid HPI Opioid Management Most Recent Pain and Opioid Data: No Data to Display Review of Systems ROS Status of ROS 10 or more systems reviewed and unremark able except as noted in history and below Meds Home Medications and Allergies Home Medications ?Medication ?Instructions ?Recorded ?Confirmed ?Type amlodipine 5 mg tablet 5 mg PO DAILY 06/19/23 09/26/23 History atorvastatin 80 mg tablet 40 mg PO .qhs 06/19/23 09/26/23 History clopidogrel 75 mg tablet 75 mg PO DAILY 06/19/23 09/26/23 History levothyroxine 100 mcg tablet 100 mcg PO DAILY 06/19/23 09/26/23 History prednisone 5 mg tablet 10 mg PO DAILY PRN flares 06/19/23 09/26/23 History carvedilol 12.5 mg tablet 12.5 mg PO Q12H 09/26/23 09/26/23 History sodium chloride 1,000 mg soluble 1,000 mg PO BID 09/26/23 09/26/23 History tablet Allergies Allergy/AdvReac Type Severity Reaction Status Date / Time No Known Drug Allergies Allergy Verified 06/19/23 10:51 Exam Constitutional Vital Signs, click to edit/add: Last Vital Signs Temp 97.9 F 09/26/23 10:48 Pulse 50 L 09/26/23 13:02 Resp 19 09/26/23 13:02 BP 187/64 H 09/26/23 13:02 Pulse Ox 97 09/26/23 13:02 O2 Del Method Room Air 09/26/23 10:48 Documenting provider has reviewed patient's vital signs: yes Common normals: no apparent distress Chest Common normals: inspection of chest normal Respiratory Common normals: normal respiratory effort and no retractions Cardio Common normals: regular rate, regular rhythm and no murmurs GI Common normals: Normal to inspection, nondistended, normoactive bowel sounds present, soft to palpation and non-tender Extremity Common normals: normal to inspection and no clubbing, cyanosis or edema Neuro Common normals: oriented x3, CN's II-XII intact bilaterally and moves all extremities Results Labs Labs: Short CBC 09/26/23 Range/Units 11:37 WBC 9.7 (4.0-11.0) 10^3/uL Hgb 15.4 (12.0-16.0) g/dL Hct 45.4 (36.0-48.0) % Plt Count 298 (150-450) 10^3/uL BMP 09/26/23 10:56 Sodium 127 L Potassium 3.8 Chloride 92 L Carbon Dioxide 26.9 BUN 17.0 Creatinine 0.86 Glucose 113 H Calcium 9.1 Urine 09/26/23 Range/Units 12:00 Urine Color Lt. yellow (YELLOW) Urine Clarity Clear (CLEAR) Urine pH 7.0 (5.0-9.0) Ur Specific [place] 1.010 (1.005-1.025) Urine Protein Negative (NEG/TRACE) mg/dL Urine Glucose (UA) Negative (NEGATIVE) mg/dL Assessment and Plan Assessment and Plan (1) Weakness: (2) Hyponatremia: (3) Coronary artery disease: (4) Hypertension: Plan Admission findings: Bradycardia, hypertensive urgency with symptomatic hypertension, dizziness as the neurological complaint, but is improved somewhat with blood pressure slowly improving. Monitor on telemetry, neurochecks. Hyponatremia-this is chronic for her, this is worse from a level standpoint than previously. Check urine sodium, continue with oral sodium supplementation, serial labs. Hypertension by history-as outlined above, will maintain home medications, as needed hydralazine. Vertigo type symptoms-try meclizine Near syncope likely more related to blood pressure control, if symptoms completely resolved we will hold off on carotid Doppler and echocardiogram. No focal neurological deficits to suggest TIA or CVA Hypothyroidism-check levels Admission status: Weakness and lightheadedness, poss related to vertigo versus hypertensive urgency on top of the vertigo. Blood pressure slowly improving, medically necessary treatment likely to span only 1 midnight, observation status.
[2023-09-26] MEDS: HYDRALAZINE HCL 20 MG/ML VIAL 5 MG IVP (13:52)
[2023-09-26] MEDS: 0.9 % SODIUM CHLORIDE 1,000 ML 125 ML IV ×2 (13:53→20:49)
[2023-09-26 14:11] LABS: Free T3 2.93 pg/mL (2.18-3.98); Magnesium 2.2 mg/dL (1.8-2.4); Thyroid Stimulating Hormone 0.405 uIU/mL (0.358-3.740)
[2023-09-26] MEDS: SODIUM CHLORIDE 1,000 MG TABLET 1000 MG PO (15:39)
[2023-09-26] MEDS: MECLIZINE HCL 12.5 MG TABLET 25 MG PO ×2 (15:41→20:49)
[2023-09-26] MEDS: CARVEDILOL 12.5 MG TABLET PO (20:49)
[2023-09-26 21:43] LABS: Sodium Urine Random 20 mmol/L (30-90)
[2023-09-27] VITALS (9 sets, daily range): BP systolic 148–183; BP diastolic 53–67; PULSE 45–60; TEMP 36.6–36.8; O2SAT 95
[2023-09-27] MEDS: MECLIZINE HCL 12.5 MG TABLET 25 MG PO ×2 (02:34→08:57)
[2023-09-27 05:33] LABS: Basophils Percent Auto 0.7 % (0.2-2.0); Eosinophils Absolute Auto 0.2 10^3/uL (0.0-0.7); Eosinophils Percent Auto 3.7 % (0.9-7.0); Hemoglobin 11.9 g/dL (12.0-16.0); Immature Granulocytes Abs Auto 0.01 10^3/uL (0.00-0.03); Immature Granulocytes Pct Auto 0.2 % (0.0-0.5); Lymphocytes Absolute Auto 1.7 10^3/uL (1.2-3.8); Lymphocytes Percent Auto 30.4 % (20.5-60.0); Mean Corpuscular HGB Conc 33.1 g/dL (29.9-35.2); Mean Corpuscular Hemoglobin 28.7 pg (26.7-34.0); Mean Platelet Volume 10.5 fL (9.5-13.5); Monocytes Absolute Auto 0.8 10^3/uL (0.3-0.8); Monocytes Percent Auto 13.3 % (1.7-12.0); Neutrophils Percent Auto 51.7 % (43.0-75.0); Platelet Count 217 10^3/uL (150-450); Red Blood Count 4.14 10^6/uL (4.20-5.40); Red Cell Distribution Width 14.1 % (11.0-15.0); White Blood Count 5.7 10^3/uL (4.0-11.0)
[2023-09-27 06:03] LABS: Alanine Aminotransferase 15 U/L (14-59); Albumin Globulin Ratio 0.7; Albumin Level 2.5 g/dL (3.4-5.0); Alkaline Phosphatase 62 U/L (46-116); Anion Gap 13.6; Aspartate Amino Transferase 15 U/L (15-37); BUN Creatinine Ratio 18.8; Bilirubin Total 0.4 mg/dL (0.2-1.0); Calcium 8.2 mg/dL (8.5-10.1); Carbon Dioxide 22.4 mmol/L (21.0-32.0); Chloride 106 mmol/L (98-107); Estimated GFR (African America >60 (>=60); Estimated GFR (Non-African Ame >60 (>=60); Globulin 3.4 g/dL; Glucose 91 mg/dL (74-106); Sodium 138 mmol/L (136-145); Total Protein 5.9 g/dL (6.4-8.2)
[2023-09-27] MEDS: 0.9 % SODIUM CHLORIDE 1,000 ML 125 ML IV (06:37)
--- NOTE | 2023-09-27 08:16 | P.DS_ITS ---
DS: Providers Provider Date of admission: 09/26/23 14:30 Primary care physician: Jonathon Alvarez MD Consults: 09/26/23 13:29 Consult to Pharmacy Routine Consulting Provider: Reason for consultation: Please [place] me when Med Rec is Updated Has provider been notified: No Occupational Therapy Eval and Treat Routine Reason for consultation: Only if needed for Rehab Has provider been notified: No Physical Therapy Eval and Treat Routine Reason for consultation: Eval and Treat Has provider been notified: No DS: Diagnosis Discharge Diagnosis (1) Weakness: (2) Hyponatremia: (3) Coronary artery disease: (4) Hypertension: Plan Admission findings: Bradycardia, hypertensive urgency with symptomatic hypertension, dizziness as the neurological complaint, but is improved somewhat with blood pressure slowly improving. Stable at the time of discharge Hyponatremia-this is chronic for her, this is worse from a level standpoint than previously. Normal at the time of discharge Hypertension by history-stable at the time of discharge Vertigo type symptoms-resolved at the time of discharge Near syncope likely more related to blood pressure control, if symptoms completely resolved we will hold off on carotid Doppler and echocardiogram. No focal neurological deficits to suggest TIA or CVA Hypothyroidism-check levels Admission status: Weakness and lightheadedness, poss related to vertigo versus hypertensive urgency on top of the vertigo. Blood pressure slowly improving, medically necessary treatment likely to span only 1 midnight, observation status. ? DS: Summary Hospital Course Hospital Course: Patient presented to the emergency room with dizziness and near syncope. She also describes some vertiginous symptoms, significant bradycardia in the emergency room as well. Patient was watched on telemetry and her heart rates been staying in the 50s, she was given fluids overnight, meclizine and overall is improved. She feels back to her baseline. With that the patient will be discharged home in improving condition. Medications see list. Follow-up with PCP for better blood pressure control and will send patient home with a 7-day Holter. Status at Discharge Overall status at discharge: patient is back to baseline Time Spent with Patient Time attestation: Total time spent providing and/or coordinating discharge services: Time spent: greater than 30 minutes Exam Constitutional Vital Signs, click to edit/add: Last Vital Signs Temp 97.9 F 09/27/23 02:54 Pulse 51 L 09/27/23 06:00 Resp 18 09/27/23 02:54 BP 183/66 H 09/27/23 02:57 Pulse Ox 95 07/15/24 02:54 O2 Del Method Room Air 09/27/23 02:54 Documenting provider has reviewed patient's vital signs: yes Common normals: no apparent distress Chest Common normals: inspection of chest normal Respiratory Common normals: normal respiratory effort and no retractions Cardio Common normals: regular rate (Bradycardia at times), regular rhythm and no murmurs GI Common normals: Normal to inspection, nondistended, normoactive bowel sounds present, soft to palpation and non-tender Extremity Common normals: normal to inspection and no clubbing, cyanosis or edema Neuro Common normals: oriented x3, CN's II-XII intact bilaterally and moves all extremities DS: Data Data Completed and Pending Labs on day of discharge: Labs from last 24 hours 09/27/23 09/26/23 09/26/23 05:03 21:00 12:00 WBC 5.7 RBC 4.14 L Hgb 11.9 L Hct 36.0 MCV 87.0 MCH 28.7 MCHC 33.1 RDW 14.1 Plt Count 217 MPV 10.5 Neut % (Auto) 51.7 Lymph % (Auto) 30.4 [place] % (Auto) 13.3 H Eos % (Auto) 3.7 Baso % (Auto) 0.7 Neut # (Auto) 3.0 Lymph # (Auto) 1.7 [place] # (Auto) 0.8 Eos # (Auto) 0.2 Baso # (Auto) 0.0 Abs Immat Gran (auto) 0.01 Imm/Tot Granulo (auto) 0.2 Sodium 138 Potassium 4.0 Chloride 106 Carbon Dioxide 22.4 Anion Gap 13.6 BUN 15.0 Creatinine 0.80 Est GFR ( Amer) >60 Est GFR (Non-Af Amer) >60 BUN/Creatinine Ratio 18.8 Glucose 91 Calcium 8.2 L Magnesium Total Bilirubin 0.4 AST 15 ALT 15 Alkaline Phosphatase 62 Troponin I High Sens NT-Pro-B Natriuret Pep Total Protein 5.9 L Albumin 2.5 L Globulin 3.4 Albumin/Globulin Ratio 0.7 TSH Thyroxine (T4) Free T3 Urine Color Lt. yellow Urine Clarity Clear Urine pH 7.0 Ur Specific [place] 1.010 Urine Protein Negative Urine Glucose (UA) Negative Urine Ketones Negative Urine Occult Blood Negative Urine Nitrite Negative Urine Bilirubin Negative Urine Urobilinogen 0.2 Ur Leukocyte Esterase Negative Ur Random Sodium 20 L 09/26/23 09/26/23 11:37 10:56 WBC 9.7 RBC 5.32 Hgb 15.4 Hct 45.4 MCV 85.3 MCH 28.9 MCHC 33.9 RDW 13.7 Plt Count 298 MPV 10.8 Neut % (Auto) 72.2 Lymph % (Auto) 18.[address] [place] % (Auto) 6.7 Eos % (Auto) 1.6 Baso % (Auto) 0.5 Neut # (Auto) 7.0 H Lymph # (Auto) 1.8 [place] # (Auto) 0.7 Eos # (Auto) 0.2 Baso # (Auto) 0.1 Abs Immat Gran (auto) 0.03 Imm/Tot Granulo (auto) 0.3 Sodium 127 L Potassium 3.8 Chloride 92 L Carbon Dioxide 26.9 Anion Gap 11.9 BUN 17.0 Creatinine 0.86 Est GFR ( Amer) >60 Est GFR (Non-Af Amer) >60 BUN/Creatinine Ratio 19.8 Glucose 113 H Calcium 9.1 Magnesium 2.2 Total Bilirubin AST ALT Alkaline Phosphatase Troponin I High Sens 47.3 NT-Pro-B Natriuret Pep 1014.0 Total Protein Albumin Globulin Albumin/Globulin Ratio TSH 0.405 Thyroxine (T4) 14.10 H Free T3 2.93 Urine Color Urine Clarity Urine pH Ur Specific [place] Urine Protein Urine Glucose (UA) Urine Ketones Urine Occult Blood Urine Nitrite Urine Bilirubin Urine Urobilinogen Ur Leukocyte Esterase Ur Random Sodium Discharge Plan Discharge Disposition: Home, Self-Care Condition: Fair Discharge Medications: New lisinopril 20 mg Tablet 20 mg PO QD Qty: 30 11RF meclizine 12.5 mg Tablet 25 mg PO Q6H Qty: 20 0RF levothyroxine 100 mcg Tablet 88 mcg PO ACB Qty: 30 11RF Continued amlodipine 5 mg tablet 5 mg PO DAILY atorvastatin 80 mg tablet 40 mg PO .qhs clopidogrel 75 mg tablet 75 mg PO DAILY prednisone 5 mg tablet 10 mg PO DAILY PRN (Reason: flares) sodium chloride 1,000 mg tablet,soluble 1,000 mg PO BID carvedilol 12.5 mg tablet 12.5 mg PO Q12H Discontinued levothyroxine 100 mcg tablet 100 mcg PO DAILY Activity: increase activity as tolerated Diet: advance to your usual diet Print Language: Yi Patient Instructions: Lisinopril (By mouth), Levothyroxine (By mouth), Meclizine (By mouth), Hyponatremia (ED), Hypertension in the Older Adult (ED) Forms: Portal Instructions Follow Up Appointments: October 06 @ 11:30am with Dr. Alvarez [phone] Discharge Date/Time: 09/27/23 09:55
[2023-09-27] MEDS: AMLODIPINE BESYLATE 5 MG TABLET PO (08:57)
[2023-09-27] MEDS: LISINOPRIL 20 MG TABLET PO (08:57)
--- NOTE | 2023-09-27 08:57 | CM.NOTE ---
Rounds made with Dr. Palacio. Offers no complaints of dizziness. Discharge today. Has a Cardiology appointment approx October 18, 2023. Follow up with PCP in approx 10 days. Verbalizes understanding.
[2023-09-27] MEDS: CARVEDILOL 12.5 MG TABLET PO (08:58)
[2023-09-27] MEDS: CLOPIDOGREL BISULFATE 75 MG TABLET PO (08:58)
--- NOTE | 2023-09-27 10:00 | SWNOTE1 ---
SW met with pt to discuss dc needs. Pt lives at home alone. Her son and daughter live a few miles away from her. Pt does not use any DME at home. She voiced she is feeling better and has no concerns about discharge. No anticipated discharge needs at this time. SW to follow as needed. Medicare Outpatient Observation Notice reviewed and discussed with patient. Pt. verbalized understanding and signed the form. Original given to patient and copy placed in patient?s chart.
--- NOTE | 2023-09-28 12:32 | CM.DCFOLLOWU ---
1st attempt 09/28/23
--- NOTE | 2023-09-28 12:34 | CM.DCFOLLOWU ---
1st attempt 09/28/23
--- NOTE | 2023-09-29 11:23 | CM.DCFOLLOWU ---
Person spoke with: patient How are you feeling? OK, feeling dizzy off and on, possibly from new meds. Going to see acute dialysis registered nurse tomorrow How is your pain? none Did you understand your discharge instructions? yes Do you have any questions about your discharge instructions? no Were you given any prescriptions at discharge? yes Were you able to get your prescriptions filled? yes Do you understand how to take your medications as ordered? yes Do you have any questions about your follow up appointment and do you plan to keep your follow up appointment? no questions, follow ups reviewed Is there anything else that you would like to discuss? no Questions/Comments/Concerns/Other: none
== END 2023-09-27 09:55 | disposition home or self-care (01) ==
LOC: ER 13:43 → MS 14:36
PROVIDERS: Admitting Provider Family Medicine; Emergency Provider Student in an Organized Health Care Education/Training Program; Family Provider Internal Medicine Interventional Cardiology; PCP Family Medicine; Visit Provider Family Medicine
DX: I16.0 Hypertensive urgency (principal); R00.1 Bradycardia, unspecified; R42 Dizziness and giddiness; E87.1 Hypo-osmolality and hyponatremia; R55 Syncope and collapse; E03.9 Hypothyroidism, unspecified; I25.10 Atherosclerotic heart disease of native coronary artery without angina pectoris; R53.1 Weakness
CPT/HCPCS: 36415; 70450; 71045; 80048; 80053; 81003; 83735; 83880; 84300; 84436; 84443; 84481; 84484; 85025; 93005; 93242; 94761; 96361; 96374; 99285; G0328; G0378; J0360

== ENCOUNTER 2023-10-07 15:45 | Outpatient (OUT) | payer MEDICARE, OTHER, SELFPAY ==
--- OUTSIDE RECORDS SUMMARY | 2023-10-07 15:57 | XMS_ITS | CCD ---
Author Organization [facility] Care Team Providers Care Radio Time Salesperson Name Role Phone PROVIDER, UNKNOWN Attending Unavailable PROVIDER, UNKNOWN Admitting Unavailable NO FAMILY, PHYSICIAN Primary Care Provider Unava ilable MARILU HarrisC Brianda Box Attending Provider MD Jonathon Kaur Primary Care Provider MD Kyree Blair Admit Provider PIPER Flanagan Other Provider Unavailable DO Tee Braun Other Provider [phone] MD Solitario Lucas Other Provider [phone] MD Felipe Cabezas Other Provider MD Gold Patrick Other Provider MD Nikolai Egan Other Provider ZAC York Other Provider MD Jillian Hernandez Other Provider MD Jono Jenkins Other Provider MD Wilmer Guzman Other Provider Desiree [facility] Noelle Box Other Provider [phone] MD Miri Hill Other Provider [phone] MD Vandana Torres Attending Provider Unknown, Pcp Unavailable Unavailable Abu-Christian Albin Unavailable Unavailable Cardiac Surgery Unavailable Unavailable Rusty Dejesus Unavailable Miri Hill Unavailable Unavailable Sivakumar Corbett Unavailable Unavailable Kvng Romo Unavailable Jonathon Kaur Unavailable Unavailable Unavailable MD Jonathon Kaur Primary Care Provider MD Kyree Blair Admit Provider [phone] PIPER Flanagan Other Provider Unavailable DO Tee Braun Other Provider MD Solitario Lucas Other Provider MD Felipe Cabezas Other Provider MD Gold Patrick Other Provider MD Nikolai Egan Other Provider ZAC York Other Provider MD Jillian Hernandez Other Provider MD Jono Jenkins Najerrell Other Provider MD Wilmer Guzman Other Provider Desiree [facility] Noelle Box Other Provider [phone] MD Miri Hill Other Provider MD Vandana Torres Attending Provider DO Kvng Romo Attending Provider MEME Harris-Keira Box Attending Provider Blake Zhao Unavailable NATASHA, DR JONATHON Shaffer Admitting Unavailable NADERER, DR JONATHON Shaffer Attending Unavailable NADERER, DR JONATHON Shaffer Consulting Unavailable NADEREKeagan, DR JONATHON Shaffer Primary Care Unavailable MISC, DR BONILLA Attending Unavailable MISC, DR BONILLA Consulting Unavailable NADEREKeagan, DR JONATHON Shaffer Primary Care Unavailable MISC, DR BONILLA Admitting Unavailable ELTAHAWY, DR SERNA Consulting Unavailable NADEREKeagan, DR JONATHON Shaffer Primary Care Unavailable NADEREKeagan, DR JONATHON Shaffer Admitting Unavailable NADEREKeagan, DR JONATHON Shaffer Attending Unavailable NADEREKeagan, DR JONATHON Shaffer Consulting Unavailable RENETTA, DR BUCSH Consulting Unavailable LEASBURG, DR BUD Hogan Consulting Unavailable MIKEEREKeagan, DR JONATHON Shaffer Primary Care Unavailable JAMES JOHNSON Admitting Unavailable JAMES JOHNSON Attending Unavailable JEREL ., JAMES Consulting Unavailable ALANIS, IRON Consulting Unavailable MISC, DR BONILLA Consulting Unavailable MISC, DR BONILLA Admitting Unavailable NADERER, DR JONATHON Shaffer Primary Care Unavailable MISC, DR BONILLA Attending Unavailable NADERER, DR JONATHON Shaffer Admitting Unavailable NADERER, DR JONATHON Shaffer Attending Unavailable NADERER, DR JONATHON Shaffer Consulting Unavailable NADERER, DR JONATHON Shaffer Primary Care Unavailable MD Jonathon Kaur Primary Care Provider MD Blake Zhao Attending Provider DIANA Harris Attending Provider Fidmargarito, Dr. Chery Attending Unavailable Fidone, Dr. Chery Referring Unavailable Naderer, Dr. Jonathon Tan Primary Care Unavai lable Fidone, Dr. Chery Attending Unavailable ABU-CHRISTIAN, ALBIN Referring Unavailable UNKNOWN, PCP Primary Care Unavailable Young, Dr. Kvng Busch Attending Unavail able ABU-CHRISTIAN, ALBIN Referring Unavailable Naderer, Dr. Jonathon Tan Primary Care Unavai lable Min M.D., Radha Attending Unavailable Min M.D., Radha Referring Unavailable Naderer, Dr. Jonathon Tan Primary Care Unavai lable ABU-CHRISTIAN, ALBIN Attending Unavailable Naderer, Dr. Jonathon Tan Primary Care Unavai lable ABU-CHRISTIAN, ALBIN Attending Unavailable Naderer, Dr. Jonathon Tan Primary Care Unavai lable ABU-CHRISTIAN, ALBIN Attending Unavailable Naderer, Dr. Jonathon Tan Primary Care Unavai lable Fidone, Dr. Chery Attending Unavailable Fidone, Dr. Chery Referring Unavailable Naderer, Dr. Jonathon Tan Primary Care MD Jonathon Sutton Primary Care Provider MD Blake Zhao Attending Provider DIANA Harris Attending Provider JONATHON KAUR Attending Unavailable MD Jonathon Kaur Primary Care Provider [phone] DIANA Harris Attending Provider Blake Zhao Attending Unavailable Jonathon Kaur Primary Care Unavailable Blake Zhao Admitting Unavailable ObermeyerBrianda L Admitting Unavailable Obermeyreinier, Brianda L Attending Unavailable Jonathon Kaur Primary Care Unavailable Blake Zhao Attending Unavailable Jonathon Kaur Primary Care Unavailable Blake Zhao Admitting Unavailable Obermeyer, Brianda L Admitting Unavailable Obermeyer, Brianda L Attending Unavailable Jonathon Kaur Primary Care Unavailable Obermeyer, Brianda L Admitting Unavailable Obermeyer, Brianda L Attending Unavailable Jonathon Kaur Primary Care Unavailable JORGE BARRIGA Attending Unavailable DAPHNE PATEL Attending Unavailable DAPHNE PATEL Attending Unavailable Medications Current Medications Medication Drug Class(es) Dates Sig (Normalized) Sig (Original) acetaminophen 325 mg oral tablet (1 source) Start: 01-16-2022 take 2 tablets by mouth every six hours as needed acetaminophen 325 mg oral tablet ; 2 tab(s) orally every 6 hours, As Needed - for pain Quantity: 0 Refills: 0 Ordered: 16-Jan-2022 Stephania Kim Start: 16-Jan-2022 Generic Substitution Allowed amLODIPine 5 mg oral tablet (2 sources) Dihydropyridine Calcium Channel Kristal Start: 05-25-2023 Amlodipine Active MG PO May 25, 2023 12:00am ascorbic acid 100 mg oral tablet (1 source) Vitamin C take 1 tablet by mouth once daily Vitamin C 100 mg oral tablet ; 1 tab(s) orally once a day Quantity: 0 Refills: 0 Ordered: 08-Jan-2022 Gerity, Sammie Generic Substitution Allowed aspirin 81 mg delayed release oral tablet (10 sources) Platelet Aggregation Inhibitor, Nonsteroidal Anti-inflammatory Drug Start: 01-16-2022 take 1 tablet by mouth once daily Aspirin Enteric Coated 81 mg oral delayed release tablet ; 1 tab(s) orally once a day Quantity: 0 Refills: 0 Ordered: 16-Jan-2022 Stephania Kim Start: 16-Jan-2022 Generic Substitution Allowed atorvastatin (12 sources) HMG-CoA Reductase Inhibitor Start: 05-25-2023 Atorvastatin Active MG PO May 25, 2023 12:00am Start: 01-27-2022 take 1 tablet by saturnino th once daily Atorvastatin Calcium 80 MG Oral Tablet TAKE 1 TABLET BY MOUTH DAILY Quantity: 90 Refills: 3 Ordered: 13-Feb-2022 Miri Hill MD Start : 03-Feb-2022 Active take 0.5 tablet by m outh once daily Atorvastatin Calcium 80 MG Oral Tablet TAKE 1/2 TABLET DAILY. Quantity: 0 Refills: 0 Ordered: 27-Mar-2022 DO Active clopidogrel 75 mg oral tablet (12 sources) P2Y12 Platelet Inhibitor Start: 05-25-2023 Clopidogrel Active M G PO May 25, 2023 12:00am Start: 01-27-2022 take 1 tablet by saturnino th once daily Clopidogrel Bisulfate 75 MG Oral Tablet TAKE 1 TABLET BY MOUTH DAILY Quantity: 30 Refills: 0 Ordered: 04-Feb-2022 DO Start : 03-Feb-2022 Active ergocalciferol 0.05 mg oral capsule (1 source) Provitamin D2 Compound take 1 capsule by mouth once daily Vitamin D2 50 mcg (2000 intl units) oral capsule ; 1 cap(s) orally once a day Quantity: 0 Refills: 0 Ordered: 08-Jan-2022 Sammie Tena Generic Substitution Allowed fluticasone propionate 0.05 mg/actuat metered dose nasal spray (1 source) Corticosteroid Start: 2021 take 1 spray(s) nasal route once daily fluticasone 50 mcg/inh nasal spray ; 1 spray(s) in each nostril once a day Quantity: 0 Refills: 0 Ordered: 27-Jan-2022 Stephania Kim Start: 27-Jan-2022 Generic Substitution Allowed inFLIXimab 100 mg injection (1 source) Tumor Necrosis Factor Kristal inject 100 mg intravenously every two months inFLIXimab 100 mg intravenous injection ; 100 milligram(s) intravenous every 2 months Quantity: 0 Refills: 0 Ordered: 08-Jan-2022 Sammie Tena Status: Discontinued Generic Substitution Allowed levothyroxine sodium 0.1 mg oral tablet (14 sources) l-Thyroxine Start: 2021 take 100 ug by mouth once daily Levothyroxine Active 100 MCG PO Daily January 02, 2022 12:00am take 1 tablet by mouth once selma y levothyroxine 100 mcg (0.1 mg) oral tablet ; 1 tab(s) orally once a day Quantity: 0 Refills: 0 Ordered: 08-Jan-2022 Gerity, Sammie Generic Substitution Allowed methylPREDNISolone 4 mg oral tablet (1 source) Corticosteroid methylPREDNISolo ne 4 mg oral tablet ; take as directed on the package Quantity: 0 Refills: 0 Ordered: 08-Jan-2022 Sammie Tena Status: Discontinued Generic Substitution Allowed 24 hr metoprolol succinate 25 mg extended release oral tablet (12 sources) beta-Adrenergic Kristal Start: 05-25-19 Metoprolol Succinate Active MG PO May 25, 2023 12:00am Start: 02-04-2022 take 1.5 tablets by mouth once daily Metoprolol Succinate ER 50 MG Oral Tablet Extended Release 24 Hour TAKE 1.5 TABLET Daily Quantity: 0 Refills: 0 Ordered: 04-Feb-2022 DO Start : 04-Feb-2022 Active Start: 01-27-2022 take 1.5 tablets by mouth once daily at bedtime metoprolol succinate 50 mg oral tablet, extended release ; 1.5 tabs = 75 mg orally once a day (at bedtime) Quantity: 0 Refills: 0 Ordered: 27-Jan-2022 Stephania Kim Start: 27-Jan-2022 Generic Substitution Allowed take 0.5 tablet by m outh once daily Toprol XL 50 MG Oral Tablet Extended Release 24 Hour TAKE 1/2 TABLET DAILY. Quantity: 0 Refills: 0 Ordered: 26-Mar-2022 DO Active per pcp Metoprolol Succi aj ER 50 MG Oral for 90 Days Active Multiple Vitamins with Minerals oral tablet (1 source) Start: 01-16-2022 take 1 tablet by mouth once daily Multiple Vitamins with Minerals oral tablet ; 1 tab(s) orally once a day Quantity: 0 Refills: 0 Ordered: 16-Jan-2022 Stephania Kim Start: 16-Jan-2022 Generic Substitution Allowed polyethylene glycol 3350 47621 mg powder for oral solution (1 source) Osmotic Laxative Start: 01-16-2022 polyethylene glycol 3350 oral powder for reconstitution ; 17 gram(s) orally once a day, As Needed - for constipation. May buy over the counter. Quantity: 0 Refills: 0 Ordered: 16-Jan-2022 Stephania Kim Start: 16-Jan-2022 Generic Substitution Allowed predniSONE 5 mg oral tablet (2 sources) Start: 05-25-2023 Prednisone Act bryant MG PO May 25, 2023 12:00am sodium chloride 1000 mg oral tablet (10 sources) Start: 05-25-2023 take 1000 mg by mouth once daily Sodium Chloride Active 1000 MG PO Daily May 25, 2023 12:00am Start: 02-17-2022 take 1 tablet by saturnino th twice daily Sodium Chloride 1 GM Oral Tablet TAKE 1 TABLET BY MOUTH TWICE DAILY Quantity: 60 Refills: 6 Ordered: 18-Aug-2022 Kvng Romo DO Start : 17-Feb-2022 Active Start: 02-17-2022 take 1 tablet by saturnino th once daily Sodium Chloride 1 GM Oral Tablet Take 1 tablet 2x/day. Quantity: 60 Refills: 3 Ordered: 17-Feb-2022 Kvng Romo DO Start : 17-Feb-2022 Active take 1 tablet by saturnino th twice daily Sodium Chloride 1 GM TAKE 1 TABLET BY MOUTH TWICE DAILY Oral for 90 Days Active thiamine 50 mg oral tablet (1 source) take 1 tablet by saturnino th once daily thiamine 50 mg oral tablet ; 1 tab(s) orally once a day Quantity: 0 Refills: 0 Ordered: 08-Jan-2022 Gerced, Sammie Generic Substitution Allowed Urea (1 source) ure-Na 15 g oral powder for reconstitution ; 15 gram(s) orally 2 times a day Quantity: 0 Refills: 0 Ordered: 27-Jan-2022 Stephania Kim Generic Substitution Allowed zinc sulfate 66 mg oral tablet (1 source) take 1 tablet by saturnino th once daily zinc sulfate 66 mg oral tablet ; 1 tab(s) orally once a day Quantity: 0 Refills: 0 Ordered: 08-Jan-2022 Gerity, Sammie Generic Substitution Allowed Completed/Discontinued Medications Medication Drug Class(es) Dates Sig (Normalized) Sig (Original) docusate sodium 100 mg oral capsule (4 sources) Start: 02-03-2022 take 1 capsule by mouth once daily as needed Docusate Sodium 100 MG Oral Capsule TAKE 1 CAPSULE BY MOUTH DAILY NEEDED Quantity: 30 Refills: 0 Ordered: 04-Feb-2022 DO Start : 03-Feb-2022 Active Start: 01-16-2022 take 1 capsule by mo [facility] twice daily as needed docusate sodium 100 mg oral capsule ; 1 cap(s) orally 2 times a day, As Needed for hard stools. May buy over the counter. Quantity: 0 Refills: 0 Ordered: 16-Jan-2022 Stephania Kim Start: 16-Jan-2022 Generic Substitution Allowed furosemide 20 mg oral tablet (8 sources) Loop Diuretic Start: 02-17-2022 take 1 tablet by mouth twice daily Furosemide 20 MG Oral Tablet TAKE 1 TABLET BY MOUTH TWICE DAILY Quantity: 60 Refills: 6 Ordered: 18-Aug-2022 Kvng Romo DO Start : 17-Feb-2022 Active 4 ml golimumab 12.5 mg/ml injection (6 sources) Tumor Necrosis Factor Kristal Start: 01-02-2022 End: 05-25-2023 Golimumab (Simponi Aria) 12.5 mg/mL Solution Discontinued 125 MG IV EVERY 8 WEEKS January 02, 2022 12:00am May 25, 2023 12:47pm administer over 30 mins heparin sodium, porcine 5000 unt/ml injectable solution (18 sources) Unfractionated Heparin, Anti-coagulant Start: 01-06-2022 End: 05-25-2023 take 2400 [IU] intravenously once Heparin (Porcine) Discontinued 2400 UNIT IV-PUSH Per protocol January 06, 2022 12:00am May 25, 2023 12:47pm Start: 01-06-2022 End: 05-25-2023 take 4000 [IU] intravenously once Heparin (Porcine) Di scontinued 4000 UNIT IV-PUSH Per protocol January 06, 2022 12:00am May 25, 2023 12:47pm Start: 01-06-2022 End: 05-25-2023 Heparin(Porcine) In 0.45% Na cl Discontinued [id number] UNIT IV .Q24H January 06, 2022 12:00am May 25, 2023 12:47pm lisinopril 5 mg oral tablet (17 sources) Angiotensin Converting Enzyme Inhibitor Start: 02-25-2022 take 1 tablet by mouth once daily Lisinopril 5 MG Oral Tablet TAKE 1 TABLET BY MOUTH DAILY Quantity: 90 Refills: 0 Ordered: 02-Mar-2022 DO Start : 25-Feb-2022 Active Start: 02-03-2022 take 1 tablet by saturnino th once daily Lisinopril 2.5 MG Oral Tablet TAKE 1 TABLET BY MOUTH DAILY Quantity: 30 Refills: 0 Ordered: 04-Feb-2022 DO Start : 03-Feb-2022 Active Start: 01-27-2022 take 1 tablet by saturnino th once daily lisinopril 2.5 mg oral tablet ; 1 tab(s) orally once a day Quantity: 0 Refills: 0 Ordered: 27-Jan-2022 Stephania Kim Start: 27-Jan-2022 Generic Substitution Allowed Start: 01-02-2022 End: 05-25-2023 take 25 mg by mouth once daily Lisinopril Discontinued 25 MG PO Daily January 02, 2022 12:00am May 25, 2023 12:48pm take 1 tablet by saturnino th once daily lisinopril 40 mg oral tablet ; 1 tab(s) orally once a day Quantity: 0 Refills: 0 Ordered: 08-Jan-2022 Sammie Tena Status: Discontinued Generic Substitution Allowed polysaccharide iron complex 150 mg oral capsule (4 sources) Start: 02-03-2022 take 1 capsule by mouth once daily IFerex 150 150 MG Oral Capsule TAKE 1 CAPSULE BY MOUTH DAILY Quantity: 30 Refills: 0 Ordered: 04-Feb-2022 DO Start : 03-Feb-2022 Active Start: 01-27-2022 take 1 capsule by mo uth once daily iron polysaccharide (as elemental iron) 150 mg oral capsule ; 1 cap(s) orally once a day x1 month Quantity: 0 Refills: 0 Ordered: 27-Jan-2022 Stephania Kim Start: 27-Jan-2022 Generic Substitution Allowed sodium bicarbonate 650 mg oral tablet (2 sources) Start: 02-03-2022 take 1 tablet by mouth once daily Sodium Bicarbonate 650 MG Oral Tablet TAKE 1 TABLET BY MOUTH DAILY Quantity: 30 Refills: 0 Ordered: 04-Feb-2022 DO Start : 03-Feb-2022 Active Start: 01-27-2022 take 1 tablet by saturnino th twice daily sodium bicarbonate 650 mg oral tablet ; 1 tab(s) orally 2 times a day Quantity: 0 Refills: 0 Ordered: 27-Jan-2022 Stephania Kim Start: 27-Jan-2022 Generic Substitution Allowed Problems Active Problems Problem Classification Problem Date Documented Date Episodic/Chronic Acute myocardial infarction (12 sources) Myocardial infarction; Translations: [Non-ST elevation (NSTEMI) myocardial infarction] Onset: 01-06-2022 01-02-2022 Chronic Cardiac dysrhythmias (4 sources) Multiple premature ventricular complexes; Translations: [Other premature beats] Chronic Coagulation and hemorrhagic disorders (1 source) Thrombocytopenic disorder; Translations: [Thrombocytopenia, unspecified] 01-09-2022 Chronic Conditions associated with dizziness or vertigo (4 sources) Lightheadedness; Translations: [Dizziness and giddiness] Episodic Congestive heart failure; nonhypertensive (4 sources) Left heart failure; Translations: [Left heart failure] Onset: 01-12-2022 01-13-2022 Chronic Congestive heart failure; nonhypertensive (5 sources) Congestive heart failure; nonhypertensive 01-06-2022 Coronary atherosclerosis and other heart disease (20 sources) Ischemic myocardial dysfunction; Translations: [Ischemic cardiomyopathy] Onset: 01-13-2022 01-04-2022 Chronic Deficiency and other anemia (1 source) Anemia due to blood loss; Translations: [Iron deficiency anemia secondary to blood loss (chronic)] 01-16-2022 Chronic Deficiency and other anemia (1 source) Deficiency and other anemia 01-16-2022 Disorders of lipid metabolism (3 sources) Hyperlipidemia, unspecified; Translations: [Mixed hyperlipidemia] Onset: 06-24-2022 Chronic Essential hypertension (20 sources) Hypertensive disorder; Translations: [Essential (primary) hypertension] Onset: 06-26-2022 01-02-2022 Chronic Fluid and electrolyte disorders (18 sources) Hyponatremia; Translations: [Hyposmolality and/or hyponatremia] Onset: 04-03-2022 01-16-2022 Episodic Hypertension with complications and secondary hypertension (4 sources) Hypertensive heart disease with heart failure; Translations: [Hypertensive heart disease without heart failure] 01-06-2022 Chronic Occlusion or stenosis of precerebral arteries (11 sources) Right carotid artery stenosis; Translations: [Occlusion and stenosis of right carotid artery] Chronic Osteoarthritis (1 source) Primary generalized (osteo)arthritis; Translations: [PRIMARY GENERALIZED OSTEOARTHRITIS] Onset: 08-27-2021 Chronic Other aftercare (1 source) Anticoagulant control - finding; Translations: [Long-term (current) use of anticoagulants] 01-09-2022 Episodic Other aftercare (5 sources) Other buttermilk drier operator (current) drug therapy; Translations: [OTH [facility] CURRENT DRUG THERAPY] Onset: 03-11-2022 Episodic Other circulatory disease (7 sources) Disorder of carotid artery; Translations: [Unspecified disorders of arteries and arterioles] Chronic Other endocrine disorders (6 sources) Syndrome of inappropriate vasopressin secretion; Translations: [Other disorders of neurohypophysis] Chronic Other nervous system disorders (2 sources) Acute postoperative pain; Translations: [Other acute postoperative pain] 01-13-2022 Episodic Residual codes; unclassified (11 sources) Body mass index 20-24 - normal; Translations: [Body Mass Index between 19-24, adult] Episodic Rheumatoid arthritis and related disease (14 sources) Rheumatoid arthritis; Translations: [Rheumatoid arthritis, unspecified] Onset: 08-25-2021 01-03-2022 Chronic Screening and history of mental health and substance abuse codes (8 sources) Ex-smoker; Translations: [Personal history of tobacco use] Onset: 01-06-2022 Episodic Comment on above: 1 pack daily- Quit i n ; Thyroid disorders (9 sources) Hypothyroidism; Translations: [Hypothyroidism, unspecified] Onset: 07-02-2022 01-02-2022 Chronic Unclassified (2 sources) 47443; CABG X2/3 PABLO VEIN; CAD 01-08-2022 Comment on above: [id number]; CABG X2/3 ESPINOZA A VEIN; CAD Unclassified (1 source) HOSP DISCHARGE CAROTID STENOSIS PT PREFERS PROVIDER CHANGE DUE TO DISTANCE 01-22-2022 Comment on above: HOSP DISCHARGE CAROT ID STENOSIS PT PREFERS PROVIDER CHANGE DUE TO DISTANCE Unclassified (1 source) RN PHONE VISIT 01-19-2022 Comment on above: RN PHONE VISIT Unclassified (1 source) VIRTUAL -- 5-6 WK HOSP F/U FOR CAROTID STENOSIS -- NO TESTING 01-08-2022 Comment on above: VIRTUAL -- 5-6 WK HO SP F/U FOR CAROTID STENOSIS -- NO TESTING Unclassified (1 source) HOSP DISCHARGE HYPONATREMIA 01-28-2022 Comment on above: HOSP DISCHARGE HYPON ATREMIA Unclassified (1 source) ALBIN ABU-CHRISTIAN NPVRFRL POST CABG HF HTN 01-19-2022 Comment on above: ALBIN ABU-CHRISTIAN NPVRF RL POST CABG HF HTN Unclassified (1 source) Non-ST elevation myocardial infarction (NSTEMI) 01-07-2022 Unclassified (1 source) Thrombocytopenia 01-09-2022 Unclassified (1 source) Anticoagulation adequate 01-09-2022 Unclassified (1 source) S/P CABG x 3 01-28-2022 Unclassified (1 source) CONTACT W/AND (SUSP) EXPOS COVID-19; Translations: [CONTACT W/AND (SUSP) EXPOS COVID-19] Onset: 01-06-2022 Unclassified (1 source) Rheumatoid arthritis with rheumatoid factor of multiple sites without organ or systems involvement; Translations: [Rheumatoid arthritis with rheumatoid factor of multiple sites without organ or systems involvement] Onset: 12-15-2022 Unclassified (1 source) Occlusion and stenosis of bilateral carotid arteries; Translations: [Occlusion and stenosis of bilateral carotid arteries] Onset: 11-24-2022 Past or Other Problems Problem Classification Problem Date Documented Da te Episodic/Chronic Coronary atherosclerosis and other heart disease (6 sources) Presence of aortocoronary bypass graft; Translations: [Presence of aortocoronary bypass graft] Onset: 02-27-2022 Episodic E Codes: Fall (1 source) Unspecified fall, initial encounter; Translations: [UNSPECIFIED FALL INITIAL ENCOUNTER] Onset: 01-06-2022 Episodic Immunizations and screening for infectious disease (1 source) Encounter for immunization; Translations: [ENCOUNTER FOR IMMUNIZATION] Onset: 01-06-2022 Episodic Nonspecific chest pain (3 sources) Chest pain, unspecified; Translations: [CHEST PAIN UNSPECIFIED] Onset: 01-02-2022 Episodic Open wounds of extremities (1 source) Laceration without foreign body of right elbow, initial encounter; Translations: [LACERATION W/O FB RT ELBOW INITIAL] Onset: 01-06-2022 Episodic Pleurisy; pneumothorax; pulmonary collapse (1 source) Atelectasis; Translations: [Atelectasis] Onset: 02-27-2022 Episodic Unclassified (1 source) CAD 01-08-2022 Comment on above: CAD Results Test Name Value Interpretation Reference Range Facility Office Visiton 09-30-2023 Follow-up visit [id number] Lorraine Barbosa 1940 F Date Provider Department Center 09/30/2023 [address] PATEL [facility] Family History Problem Relation Age of Onset Valvular heart disease Mother Heart attack Father Heart attack Brother Coronary artery disease Brother Family Status - Relation Status Age at Mother Father Brother Level of Service:32555 [place] OFFICE/OUTPATIENT ESTABLISHED LOW MDM 20 MIN Normal [facility] Alanine aminotransferase [En zymatic activity/volume] in Serum or PlasmaOrdered By: Rakan Del Toro on 09-23-2023 ALT [Catalytic activity/Vol] 14 U/L Normal 7-52 [facility] Comment on above: Performed By: #### C BC ESR, CMP #### [address] Albumin [Mass/volume] in Ser um or Plasma by Bromocresol green (BCG) dye binding methoOrdered By: Rakan Del Toro on 09-23-2023 Albumin BCG dye [Mass/Vol] 3.8 g/dL 3.5-5.7 [facility] Alkaline phosphatase [Enzyma tic activity/volume] in Serum or PlasmaOrdered By: Rakan Del Toro on 09-23-2023 ALP [Catalytic activity/Vol] 63 U/L Normal 34-104 [facility] Comment on above: Result Comment: PERF ORMED BY: [place] [address] PATHOLOGIST STAFFING ASSOCIATE RENE BOWSER M.D. Performed By: #### C BC ESR, CMP #### [address] Aspartate aminotransferase [ Enzymatic activity/volume] in Serum or PlasmaOrdered By: Rakan Del Toro on 09-23-2023 AST [Catalytic activity/Vol] 22 U/L Normal 13-39 [facility] Comment on above: Performed By: #### C BC, ESR, CMP #### [address] Automated basophil %Ordered By: Rakan Del Toro on 09-23-2023 Basophils/100 WBC (Bld) 0.8 % Normal . [facility] Comment on above: Performed By: #### C BC, ESR, CMP #### [address] Automated basophil countOrde red By: Rakan Del Toro on 09-23-2023 Basophils (Bld) [#/Vol] 0.1 10*3/uL Normal 0.0-0.2 [facility] Comment on above: Performed By: #### C BC, ESR, CMP #### [address] Automated blood monocyte cou ntOrdered By: Rakan Coxrow on 09-23-2023 Monocytes (Bld) [#/Vol] 0.9 10*3/uL High 0.0-0.8 [facility] Comment on above: Performed By: #### C BC, ESR, CMP #### [address] Automated eosinophil %Ordere d By: Rakan Coxrow on 09-23-2023 Eosinophils/100 WBC (Bld) 2.7 % Normal . [facility] Comment on above: Performed By: #### C BC, ESR, CMP #### [address] Automated eosinophil countOr dered By: Rakan Coxrow on 09-23-2023 Eosinophils (Bld) [#/Vol] 0.2 10*3/uL Normal 0.0-0.45 [facility] Comment on above: Performed By: #### C BC, ESR, CMP #### [address] Automated monocyte %Ordered By: Rakan Coxrow on 09-23-2023 Monocytes/100 WBC (Bld) 11.3 % Normal . [facility] Comment on above: Performed By: #### C BC, ESR, CMP #### [address] Automated neutrophil %Ordere d By: Rakan Coxrow on 09-23-2023 Neutrophils/100 WBC (Bld) 67.2 % Normal . [facility] Comment on above: Performed By: #### C BC, ESR, CMP #### [address] Bilirubin.total [Mass/volume ] in Serum or PlasmaOrdered By: Rakan Coxrow on 09-23-2023 Bilirubin [Mass/Vol] 0.4 mg/dL Normal 0.3-1.0 [facility] Comment on above: Performed By: #### C BC, ESR, CMP #### [address] Calcium [Mass/volume] in Ser um or PlasmaOrdered By: Rakan Renetta on 09-23-2023 Calcium [Mass/Vol] 9.3 mg/dL Normal 8.6-10.3 [facility] Comment on above: Performed By: #### C BC, ESR, CMP #### [address] Carbon dioxide, total [Moles /volume] in Serum or PlasmaOrdered By: Rakan Renetta on 09-23-2023 CO2 [Moles/Vol] 24.9 mmol/L Normal 21.0-31.0 [facility] Comment on above: Performed By: #### C BC, ESR, CMP #### [address] Chloride [Moles/volume] in S sarwat or PlasmaOrdered By: Rakan Del Toro on 09-23-2023 Chloride [Moles/Vol] 96 mmol/L Low 98-107 [facility] Comment on above: Performed By: #### C BC, ESR, CMP #### [address] Complete Blood Count Auto Di ffon 09-23-2023 Mean Corpuscular HGB Conc 33.9 g/dL Normal 32.0-35.0 [facility] Comment on above: Performed By: #### C BC, ESR, CMP #### [address] NRBC% 0.1 /100{WBC} Normal 0-0.5 [facility] Comment on above: Performed By: #### C BC, ESR, CMP #### [address] Comprehensive Metabolic Pane radha 09-23-2023 Albumin [Mass/Vol] 3.8 g/dL Normal 3.5-5.7 [facility] Comment on above: Performed By: #### C BC, ESR, CMP #### [place] [address] [place] GFR/1.73 sq M.predicted MDRD (S/P/Bld) [Vol rate/Area] mL/min/{1.73_m2} Normal [facility] Comment on above: Performed By: #### C BC, ESR, CMP #### [address] Creatinine [Mass/volume] in Serum or PlasmaOrdered By: Rakan Del Toro on 09-23-2023 Creatinine [Mass/Vol] 0.84 mg/dL Normal 0.60-1.20 [facility] Comment on above: Performed By: #### C BC, ESR, CMP #### [address] Erythrocyte Sedimentation Ra moose 09-23-2023 ESR (Bld) [Velocity] 50 mm/h High 0-29 [facility] Comment on above: Result Comment: PERF ORMED BY: [place] [address] PATHOLOGIST STAFFING ASSOCIATE RENE BOWSER M.D. Performed By: #### C BC, ESR, CMP #### [address] Erythrocyte distribution wid th [Ratio] by Automated countOrdered By: Rakan Del Toro on 09-23-2023 Erythrocyte distribution width (RBC) [Ratio] 14.6 % Normal 11.9-15.3 [facility] Comment on above: Performed By: #### C BC, ESR, CMP #### [address] Erythrocyte sedimentation ra te by Photometric methodOrdered By: Rakan Del Toro on 09-23-2023 ESR Photometric method (Bld) [Velocity] 50 mm/hr High 0-29 [facility] Erythrocytes [#/volume] in B lood by Automated countOrdered By: Rakan Del Toro on 09-23-2023 RBC (Bld) [#/Vol] 4.53 10*6/uL Normal 3.60-5.00 [facility] Comment on above: Performed By: #### C BC, ESR, CMP #### [address] Glucose [Mass/volume] in Ser um or PlasmaOrdered By: Rakan Del Toro on 09-23-2023 Glucose [Mass/Vol] 106 mg/dL High 70-100 [facility] Comment on above: ADA recommended refe rence rangeRandom Glucose Reference Range is dependent on time and content of last meal. Glucose of more than 200 mg/dL in a nonstressed, ambulatory subject supports the diagnosis of Diabetes Mellitus. Result Comment: [place] Glucose Reference Range is dependent on time and content of last meal. Glucose of more than 200 mg/dL in a nonstressed, ambulatory subject supports the diagnosis of Diabetes Mellitus. ADA recommended reference range Performed By: #### C BC, ESR, CMP #### [facility] [address] [place] [address] Hematocrit [Volume Fraction] of Blood by Automated countOrdered By: Rakan Del Toro on 09-23-2023 Hematocrit (Bld) [Volume fraction] 38.8 % Normal 34.0-46.4 [facility] Comment on above: Performed By: #### C BC, ESR, CMP #### [facility] [address] [place] [address] Hemoglobin [Mass/volume] in BloodOrdered By: Rakan Del Toro on 09-23-2023 Hemoglobin (Bld) [Mass/Vol] 13.2 g/dL Normal 11.8-15.4 [facility] Comment on above: Performed By: #### C BC, ESR, CMP #### [facility] [address] [place] [address] Leukocytes [#/volume] correc abena for nucleated erythrocytes in Blood by Automated counOrdered By: Rakan Del Toro on 09-23-2023 WBC corrected for nucl RBC Auto (Bld) [#/Vol] 8.2 10*3/uL 3.8-11.6 [facility] Leukocytes [#/volume] in Blo od by Automated countOrdered By: Rakan Del Toro on 09-23-2023 WBC (Bld) [#/Vol] 8.2 10*3/uL Normal 3.8-11.6 [facility] Comment on above: Performed By: #### C BC, ESR, CMP #### [address] Lymphocytes [#/volume] in Bl ood by Automated countOrdered By: Rakan Renetta on 09-23-2023 Lymphocytes (Bld) [#/Vol] 1.5 10*3/uL Normal 1.00-4.8 [facility] Comment on above: Performed By: #### C BC, ESR, CMP #### [address] Lymphocytes/100 leukocytes i n Blood by Automated countOrdered By: Rakan Del Toro on 09-23-2023 Lymphocytes/100 WBC (Bld) 18.0 % Normal . [facility] Comment on above: Performed By: #### C BC, ESR, CMP #### [address] MCH [Entitic mass] by Automa abena countOrdered By: Rakan Del Toro on 09-23-2023 MCH (RBC) [Entitic mass] 29.1 pg Normal 24.7-34.3 [facility] Comment on above: Performed By: #### C BC, ESR, CMP #### [address] MCHC Auto (RBC) [Mass/Vol]Or dered By: Rakan Del Toro on 09-23-2023 MCHC (RBC) [Mass/Vol] 33.9 g/dL 32.0-35.0 [facility] MCV [Entitic volume] by Auto mated countOrdered By: Rakan Del Toro on 09-23-2023 MCV (RBC) [Entitic vol] 85.7 fL Normal 80-100 [facility] Comment on above: Performed By: #### C BC, ESR, CMP #### [address] Neutrophils [#/volume] in Bl ood by Automated countOrdered By: Rkaan Del Toro on 09-23-2023 Neutrophils (Bld) [#/Vol] 5.5 10*3/uL Normal 1.8-7.7 [facility] Comment on above: Performed By: #### C BC, ESR, CMP #### [address] No Panel InformationOrdered By: Rakan Coxrow on 09-23-2023 Estimated GFR (CKD-EPI) > 60.0 mL/Min [facility] Creatinine Clearance (Chem N/A [facility] Nucleated erythrocytes [Pres ence] in Blood by Automated countOrdered By: Rakan Coxrow on 09-23-2023 Nucleated RBC Auto Ql (Bld) 0.1 /100{WBC} 0-0.5 [facility] Platelet mean volume [Entiti c volume] in Blood by Automated countOrdered By: Rakan Coxrow on 09-23-2023 Platelet mean volume (Bld) [Entitic vol] 9.3 fL Normal 6.3-10.7 [facility] Comment on above: Performed By: #### C BC, ESR, CMP #### [address] Platelets [#/volume] in Bloo d by Automated countOrdered By: Rakan Del Toro on 09-23-2023 Platelets (Bld) [#/Vol] 239 10*3/uL Normal 150-450 [facility] Comment on above: Performed By: #### C BC, ESR, CMP #### [address] Potassium [Moles/volume] in Serum or PlasmaOrdered By: Rakan Del Toro on 09-23-2023 Potassium [Moles/Vol] 4.3 mmol/L Normal 3.5-5.1 [facility] Comment on above: Performed By: #### C BC, ESR, CMP #### [place] [address] [place] Protein [Mass/volume] in Ser um or PlasmaOrdered By: Rakan Del Toro on 09-23-2023 Protein [Mass/Vol] 7.3 g/dL Normal 6.4-8.9 [facility] Comment on above: Performed By: #### C BC, ESR, CMP #### [address] Serum globulin measurement b y calculation (mass/volume)Ordered By: Rakan Coxrow on 09-23-2023 Globulin (S) [Mass/Vol] 3.5 g/dL [facility] Comment on above: Performed By: #### C BC, ESR, CMP #### [facility] [address] Serum or plasma albumin/glob ulin mass ratioOrdered By: Rakan Renetta on 09-23-2023 Albumin/Globulin [Mass ratio] 1.1 {ratio} [facility] Comment on above: Performed By: #### C BC, ESR, CMP #### [address] Serum or plasma anion gap de terminationOrdered By: Rakananahi Del Toro on 09-23-2023 Anion gap [Moles/Vol] 11.4 mmol/L Normal 6.0-15.0 [facility] Comment on above: Performed By: #### C BC, ESR, CMP #### [address] Sodium [Moles/volume] in Ser um or PlasmaOrdered By: Rakan Del Toro on 09-23-2023 Sodium [Moles/Vol] 128 mmol/L Low 136-145 [facility] Comment on above: Performed By: #### C BC, ESR, CMP #### [address] Urea nitrogen [Mass/volume] in Serum or PlasmaOrdered By: Rakan Del Toro on 09-23-2023 Urea nitrogen [Mass/Vol] 19 mg/dL Normal 7-25 [facility] Comment on above: Performed By: #### C BC, ESR, CMP #### [address] Office Visiton 07-19-2023 Follow-up visit [id number] Lorraine Barbosa 1940 F Date Provider Department Center 07/19/2023 [facility] Family History Problem Relation Age of Onset Valvular heart disease Mother Heart attack Father Heart attack Brother Coronary artery disease Brother Family Status - Relation Status Age at Mother Father Brother Level of Service:45096 [place] OFFICE/OUTPATIENT ESTABLISHED MOD MDM 30 MIN Normal [facility] Alanine aminotransferase [En zymatic activity/volume] in Serum or PlasmaOrdered By: Brianda Harris on 06-03-2023 ALT [Catalytic activity/Vol] 16 U/L Normal 7-52 [facility] Comment on above: Performed By: #### C MP, CBC, ESR #### [facility] [address] Albumin [Mass/volume] in Ser um or Plasma by Bromocresol green (BCG) dye binding methoOrdered By: Brianda Harris on 06-03-2023 Albumin BCG dye [Mass/Vol] 4.1 g/dL 3.5-5.7 [facility] Alkaline phosphatase [Enzyma tic activity/volume] in Serum or PlasmaOrdered By: Brianda Harris on 06-03-2023 ALP [Catalytic activity/Vol] 69 U/L Normal 34-104 [facility] Comment on above: Result Comment: PERF ORMED BY: [place] [address] PATHOLOGIST STAFFING ASSOCIATE RENE BOWSER M.D. Performed By: #### C MP, CBC, ESR #### [facility] [address] Aspartate aminotransferase [ Enzymatic activity/volume] in Serum or PlasmaOrdered By: Brianda Harris on 06-03-2023 AST [Catalytic activity/Vol] 23 U/L Normal 13-39 [facility] Comment on above: Performed By: #### C MP, CBC, ESR #### [facility] [address] [place] [address] [place] Automated basophil %Ordered By: Brianda Harris on 06-03-2023 Basophils/100 WBC (Bld) 0.9 % Normal . [facility] Comment on above: Performed By: #### C MP, CBC, ESR #### [facility] [address] [place] [address] [place] Automated basophil countOrde red By: Brianda Harris on 06-03-2023 Basophils (Bld) [#/Vol] 0.1 10*3/uL Normal 0.0-0.2 [facility] Comment on above: Performed By: #### C MP, CBC, ESR #### [address] Automated blood monocyte cou ntOrdered By: Brianda Harris on 06-03-2023 Monocytes (Bld) [#/Vol] 0.9 10*3/uL High 0.0-0.8 [facility] Comment on above: Performed By: #### C MP, CBC, ESR #### [address] Automated eosinophil %Ordere d By: Brianda Harris on 06-03-2023 Eosinophils/100 WBC (Bld) 2.4 % Normal . [facility] Comment on above: Performed By: #### C MP, CBC, ESR #### [address] Automated eosinophil countOr dered By: Brianda Harris on 06-03-2023 Eosinophils (Bld) [#/Vol] 0.2 10*3/uL Normal 0.0-0.45 [facility] Comment on above: Performed By: #### C MP, CBC, ESR #### [address] Automated monocyte %Ordered By: Brianda Harris on 06-03-2023 Monocytes/100 WBC (Bld) 11.1 % Normal . [facility] Comment on above: Performed By: #### C MP, CBC, ESR #### [address] Automated neutrophil %Ordere d By: Brianda Harris on 06-03-2023 Neutrophils/100 WBC (Bld) 66.3 % Normal . [facility] Comment on above: Performed By: #### C MP, CBC, ESR #### [address] Bilirubin.total [Mass/volume ] in Serum or PlasmaOrdered By: Brianda Harris on 06-03-2023 Bilirubin [Mass/Vol] 0.5 mg/dL Normal 0.3-1.0 [facility] Comment on above: Performed By: #### C MP, CBC, ESR #### [address] Calcium [Mass/volume] in Ser um or PlasmaOrdered By: Brianda Harris on 06-03-2023 Calcium [Mass/Vol] 9.4 mg/dL Normal 8.6-10.3 [facility] Comment on above: Performed By: #### C MP, CBC, ESR #### [address] Carbon dioxide, total [Moles /volume] in Serum or PlasmaOrdered By: Brianda Harris on 06-03-2023 CO2 [Moles/Vol] 25.4 mmol/L Normal 21.0-31.0 [facility] Comment on above: Performed By: #### C MP, CBC, ESR #### [address] Chloride [Moles/volume] in S sarwat or PlasmaOrdered By: Brianda Harris on 06-03-2023 Chloride [Moles/Vol] 102 mmol/L Normal 98-107 [facility] Comment on above: Performed By: #### C MP, CBC, ESR #### [address] Complete Blood Count Auto Di ffon 06-03-2023 Mean Corpuscular HGB Conc 32.9 g/dL Normal 32.0-35.0 [facility] Comment on above: Performed By: #### C MP, CBC, ESR #### [address] NRBC% 0.1 /100{WBC} Normal 0-0.5 [facility] Comment on above: Performed By: #### C MP, CBC, ESR #### [address] Comprehensive Metabolic Pane radha 06-03-2023 Albumin [Mass/Vol] 4.1 g/dL Normal 3.5-5.7 [facility] Comment on above: Performed By: #### C MP, CBC, ESR #### [address] GFR/1.73 sq M.predicted MDRD (S/P/Bld) [Vol rate/Area] mL/min/{1.73_m2} Normal [facility] Comment on above: Performed By: #### C MP, CBC, ESR #### [address] Creatinine [Mass/volume] in Serum or PlasmaOrdered By: Brianda Harris on 06-03-2023 Creatinine [Mass/Vol] 0.89 mg/dL Normal 0.60-1.20 [facility] Comment on above: Performed By: #### C MP, CBC, ESR #### [address] Erythrocyte Sedimentation Ra moose 06-03-2023 ESR (Bld) [Velocity] 42 mm/h High 0-29 [facility] Comment on above: Result Comment: PERF ORMED BY: [place] [address] PATHOLOGIST STAFFING ASSOCIATE RENE BOWSER M.D. Performed By: #### C MP, CBC, ESR #### [address] Erythrocyte distribution wid th [Ratio] by Automated countOrdered By: Brianda Harris on 06-03-2023 Erythrocyte distribution width (RBC) [Ratio] 14.1 % Normal 11.9-15.3 [facility] Comment on above: Performed By: #### C MP, CBC, ESR #### [address] Erythrocyte sedimentation ra te by Photometric methodOrdered By: Brianda Harris on 06-03-2023 ESR Photometric method (Bld) [Velocity] 42 mm/hr 0-29 [facility] Erythrocytes [#/volume] in B lood by Automated countOrdered By: Brianda Harris on 06-03-2023 RBC (Bld) [#/Vol] 4.80 10*6/uL Normal 3.60-5.00 [facility] Comment on above: Performed By: #### C MP, CBC, ESR #### [facility] [address] [place] [address] [place] Glucose [Mass/volume] in Ser um or PlasmaOrdered By: Brianda Harris on 06-03-2023 Glucose [Mass/Vol] 91 mg/dL Normal 70-100 [facility] Comment on above: ADA recommended refe rence rangeRandom Glucose Reference Range is dependent on time and content of last meal. Glucose of more than 200 mg/dL in a nonstressed, ambulatory subject supports the diagnosis of Diabetes Mellitus. Result Comment: [place] om Glucose Reference Range is dependent on time and content of last meal. Glucose of more than 200 mg/dL in a nonstressed, ambulatory subject supports the diagnosis of Diabetes Mellitus. ADA recommended reference range Performed By: #### C MP, CBC, ESR #### [facility] [address] Hematocrit [Volume Fraction] of Blood by Automated countOrdered By: Brianda Harris on 06-03-2023 Hematocrit (Bld) [Volume fraction] 41.8 % Normal 34.0-46.4 [facility] Comment on above: Performed By: #### C MP, CBC, ESR #### [facility] [address] Hemoglobin [Mass/volume] in BloodOrdered By: Brianda Harris on 06-03-2023 Hemoglobin (Bld) [Mass/Vol] 13.8 g/dL Normal 11.8-15.4 [facility] Comment on above: Performed By: #### C MP, CBC, ESR #### [facility] [address] Leukocytes [#/volume] correc abena for nucleated erythrocytes in Blood by Automated counOrdered By: Brianda Harris on 06-03-2023 WBC corrected for nucl RBC Auto (Bld) [#/Vol] 8.3 10*3/uL 3.8-11.6 [facility] Leukocytes [#/volume] in Blo od by Automated countOrdered By: Brianda Harris on 06-03-2023 WBC (Bld) [#/Vol] 8.3 10*3/uL Normal 3.8-11.6 [facility] Comment on above: Performed By: #### C MP, CBC, ESR #### [facility] [address] [place] [address] [place] Lymphocytes [#/volume] in Bl ood by Automated countOrdered By: Brianda Harris on 06-03-2023 Lymphocytes (Bld) [#/Vol] 1.6 10*3/uL Normal 1.00-4.8 [facility] Comment on above: Performed By: #### C MP, CBC, ESR #### [facility] [address] [place] [address] [place] Lymphocytes/100 leukocytes i n Blood by Automated countOrdered By: Brianda Harris on 06-03-2023 Lymphocytes/100 WBC (Bld) 19.3 % Normal . [facility] Comment on above: Performed By: #### C MP, CBC, ESR #### [facility] [address] [place] [address] [place] MCH [Entitic mass] by Automa abena countOrdered By: Brianda Harris on 06-03-2023 MCH (RBC) [Entitic mass] 28.7 pg Normal 24.7-34.3 [facility] Comment on above: Performed By: #### C MP, CBC, ESR #### [place] [address] [place] MCHC Auto (RBC) [Mass/Vol]Or dered By: Brianda Harris on 06-03-2023 MCHC (RBC) [Mass/Vol] 32.9 g/dL 32.0-35.0 [facility] MCV [Entitic volume] by Auto mated countOrdered By: Brianda Harris on 06-03-2023 MCV (RBC) [Entitic vol] 87.0 fL Normal 80-100 [facility] Comment on above: Performed By: #### C MP, CBC, ESR #### [facility] [address] Neutrophils [#/volume] in Bl ood by Automated countOrdered By: Brianda Harris on 06-03-2023 Neutrophils (Bld) [#/Vol] 5.5 10*3/uL Normal 1.8-7.7 [facility] Comment on above: Performed By: #### C MP, CBC, ESR #### [address] No Panel InformationOrdered By: Brianda Harris on 06-03-2023 Estimated GFR (CKD-EPI) > 60.0 mL/Min [facility] Creatinine Clearance (Chem N/A [facility] Nucleated erythrocytes [Pres ence] in Blood by Automated countOrdered By: Brianda Harris on 06-03-2023 Nucleated RBC Auto Ql (Bld) 0.1 /100{WBC} 0-0.5 [facility] Platelet mean volume [Entiti c volume] in Blood by Automated countOrdered By: Brianda Harris on 06-03-2023 Platelet mean volume (Bld) [Entitic vol] 9.3 fL Normal 6.3-10.7 [facility] Comment on above: Performed By: #### C MP, CBC, ESR #### [facility] [address] [place] [address] Platelets [#/volume] in Bloo d by Automated countOrdered By: Brianda Harris on 06-03-2023 Platelets (Bld) [#/Vol] 251 10*3/uL Normal 150-450 [facility] Comment on above: Performed By: #### C MP, CBC, ESR #### [address] Potassium [Moles/volume] in Serum or PlasmaOrdered By: Brianda Harris on 06-03-2023 Potassium [Moles/Vol] 3.8 mmol/L Normal 3.5-5.1 [facility] Comment on above: Performed By: #### C MP, CBC, ESR #### [address] Protein [Mass/volume] in Ser um or PlasmaOrdered By: Brianda Harris on 06-03-2023 Protein [Mass/Vol] 7.1 g/dL Normal 6.4-8.9 [facility] Comment on above: Performed By: #### C MP, CBC, ESR #### [address] Serum globulin measurement b y calculation (mass/volume)Ordered By: Brianda Harris on Globulin (S) [Mass/Vol] 3.0 g/dL [facility] Comment on above: Performed By: #### C MP, CBC, ESR #### [address] Serum or plasma albumin/glob ulin mass ratioOrdered By: Brianda Harris on 06-03-2023 Albumin/Globulin [Mass ratio] 1.4 {ratio} [facility] Comment on above: Performed By: #### C MP, CBC, ESR #### [address] Serum or plasma anion gap de terminationOrdered By: Brianda Harris on 06-03-2023 Anion gap [Moles/Vol] 11.4 mmol/L Normal 6.0-15.0 [facility] Comment on above: Performed By: #### C MP, CBC, ESR #### [address] Sodium [Moles/volume] in Ser um or PlasmaOrdered By: Brianda Harris on 06-03-2023 Sodium [Moles/Vol] 135 mmol/L Low 136-145 [facility] Comment on above: Performed By: #### C MP, CBC, ESR #### [address] Urea nitrogen [Mass/volume] in Serum or PlasmaOrdered By: Brianda Harris on 06-03-2023 Urea nitrogen [Mass/Vol] 24 mg/dL Normal 7- [facility] Comment on above: Performed By: #### C MP, CBC, ESR #### [facility] [address] [place] [id number] [place] US carotid doppler BIon 05-13 US carotid doppler BI [facility] [address] [place] [address] [place] [address] Ultrasound Report Signed Patient: Cely Barbosa MR#: [id number] 80 : 1940 Acct:[id number] Age/Sex: 83 / F ADM Date: 05/25/23 Loc: [facility] Room: Type: [facility] Attending Dr: Blake Zhao MD Ordering Provider: Blake Zhao MD Date of Service: 05/25/23 US/US carotid doppler BI: [id number] Copies to: Blake Zhao MD CAROTID DUPLEX INDICATION: Known carotid occlusive disease PROCEDURE: Color-flow duplex scanning is used to interrogate the extracranial carotid arterial system, as well as both vertebral arteries. Both carotid bifurcations show mild to moderate heterogeneous plaque formation. The proximal right internal carotid artery shows a highest peak systolic velocity of 412 cm/s with an end-diastolic velocity of 28.2 cm/s . The mid internal carotid artery measures 146 cm/s peak systolic and 24.1 cm/s end diastolic. The distal segment measures 133 cm/s peak systolic with an end diastolic velocity of 23 cm/s . The velocities of the right common carotid artery are 81.8 cm/s peak systolic and 12.1 cm/s end-diastolic proximally and 82.3 cm/s peak systolic and 12.6 cm/s end diastolic distally. The peak systolic velocity ratio of the internal to the common carotid artery is 5.04. The right external carotid artery measures 351 cm/s peak systolic. The right vertebral artery is patent at 88.4 cm/s with antegrade flow. The proximal left internal carotid artery shows a highest peak systolic velocity of 250 cm/s with an end-diastolic velocity of 48.5 cm/s . The mid internal carotid artery measures 236 cm/s peak systolic and 27.7 cm/s end diastolic. The distal segment measures 123 cm/s peak systolic with an end diastolic velocity of 21.3 cm/s . The velocities of the left common carotid artery are 127 cm/s peak systolic and 14.7 cm/s end-diastolic proximally and 146 cm/s peak systolic and 17.2 cm/s end diastolic distally. The peak systolic velocity ratio of the internal to the common carotid artery is 1.71 . The left external carotid artery measures 376 cm/s peak systolic. The left vertebral artery is patent at 60.1 cm/s with antegrade flow. 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 The end-diastolic velocity is not particularly elevated and the stenosis may be in the range of 50- 69% but they markedly elevated peak systolic velocity and the elevated peak systolic velocity ratio suggest a greater than 70% stenosis. 50-69% stenosis of the left extracranial internal carotid artery. Impression dictated by: Blake Zhao M.D.05/31/2023 12:47 PM Dictation Location: [place] [address] Tech: Juliana Licona Transcribed By: TORIN 05/31/23 124 Dictated By: Blake Zhao MD 05/31/23 124 Signed By: 05/31/23 1247 Normal [facility] Office Visiton 12-21-2022 Follow-up visit [id number] Lorraine Barbosa 1940 F Date Provider Department [place] 12/21/2022 [id number] BARRIGA [facility] Family History Problem Relation Age of Onset Valvular heart disease Mother Heart attack Father Heart attack Brother Coronary artery disease Brother Family Status - Relation Status Age at Mother Father Brother Level of Service:42744 CA OFFICE/OUTPATIENT ESTABLISHED MOD MDM 30-39 MIN Normal [facility] Alanine aminotransferase [En zymatic activity/volume] in Serum or PlasmaOrdered By: Brianda Harris on 12-15-2022 ALT [Catalytic activity/Vol] 16 U/L Normal 7-52 [facility] Comment on above: Performed By: #### C MP, CBC, ESR #### [facility] [address] [place] [address] Albumin [Mass/volume] in Ser um or Plasma by Bromocresol green (BCG) dye binding methoOrdered By: Brianda Harris on 12-15-2022 Albumin BCG dye [Mass/Vol] 3.8 g/dL 3.5-5.7 [facility] Alkaline phosphatase [Enzyma tic activity/volume] in Serum or PlasmaOrdered By: Brianda Harris on 12-15-2022 ALP [Catalytic activity/Vol] 60 U/L Normal 34-104 [facility] Comment on above: Result Comment: PERF ORMED BY: [place] [address] PATHOLOGIST STAFFING ASSOCIATE RENE BOWSER M.D. Performed By: #### C MP, CBC, ESR #### [address] Aspartate aminotransferase [ Enzymatic activity/volume] in Serum or PlasmaOrdered By: Brianda Harris on 12-15-2022 AST [Catalytic activity/Vol] 20 U/L Normal 13-39 [facility] Comment on above: Performed By: #### C MP, CBC, ESR #### [address] Automated basophil %Ordered By: Brianda Harris on 12-15-2022 Basophils/100 WBC (Bld) 0.6 % Normal . [facility] Comment on above: Performed By: #### C MP, CBC, ESR #### [address] Automated basophil countOrde red By: Brianda Harris on 12-15-2022 Basophils (Bld) [#/Vol] 0.1 10*3/uL Normal 0.0-0.2 [facility] Comment on above: Performed By: #### C MP, CBC, ESR #### [address] Automated blood monocyte cou ntOrdered By: Brianda Harris on 12-15-2022 Monocytes (Bld) [#/Vol] 1.2 10*3/uL High 0.0-0.8 [facility] Comment on above: Performed By: #### C MP, CBC, ESR #### [address] Automated eosinophil %Ordere d By: Brianda Harris on 12-15-2022 Eosinophils/100 WBC (Bld) 1.5 % Normal . [facility] Comment on above: Performed By: #### C MP, CBC, ESR #### [address] Automated eosinophil countOr dered By: Brianda Harris on 12-15-2022 Eosinophils (Bld) [#/Vol] 0.2 10*3/uL Normal 0.0-0.45 [facility] Comment on above: Performed By: #### C MP, CBC, ESR #### [address] Automated monocyte %Ordered By: Brianda Harris on 12-15-2022 Monocytes/100 WBC (Bld) 10.6 % Normal . [facility] Comment on above: Performed By: #### C MP, CBC, ESR #### [address] Automated neutrophil %Ordere d By: Brianda Harris on 12-15-2022 Neutrophils/100 WBC (Bld) 62.3 % Normal . [facility] Comment on above: Performed By: #### C MP, CBC, ESR #### [address] Bilirubin.total [Mass/volume ] in Serum or PlasmaOrdered By: Brianda Harris on 12-15-2022 Bilirubin [Mass/Vol] 0.3 mg/dL Normal 0.3-1.0 [facility] Comment on above: Performed By: #### C MP, CBC, ESR #### [address] Calcium [Mass/volume] in Ser um or PlasmaOrdered By: Brianda Harris on 12-15-2022 Calcium [Mass/Vol] 9.3 mg/dL Normal 8.6-10.3 [facility] Comment on above: Performed By: #### C MP, CBC, ESR #### [address] Carbon dioxide, total [Moles /volume] in Serum or PlasmaOrdered By: Brianda Harris on 12-15-2022 CO2 [Moles/Vol] 26.6 mmol/L Normal 21.0-31.0 [facility] Comment on above: Performed By: #### C MP, CBC, ESR #### [address] Chloride [Moles/volume] in S sarwat or PlasmaOrdered By: Brianda Harris on 12-15-2022 Chloride [Moles/Vol] 102 mmol/L Normal 98-107 [facility] Comment on above: Performed By: #### C MP, CBC, ESR #### [address] Complete Blood Count Auto Di ffon 12-15-2022 Mean Corpuscular HGB Conc 33.5 g/dL Normal 32.0-35.0 [facility] Comment on above: Performed By: #### C MP, CBC, ESR #### [address] NRBC% 0.1 /100{WBC} Normal 0-0.5 [facility] Comment on above: Performed By: #### C MP, CBC, ESR #### [address] Comprehensive Metabolic Pane radha 12-15-2022 Albumin [Mass/Vol] 3.8 g/dL Normal 3.5-5.7 [facility] Comment on above: Performed By: #### C MP, CBC, ESR #### [address] GFR/1.73 sq M.predicted MDRD (S/P/Bld) [Vol rate/Area] mL/min/{1.73_m2} Normal [facility] Comment on above: Performed By: #### C MP, CBC, ESR #### [address] Creatinine [Mass/volume] in Serum or PlasmaOrdered By: Brianda Harris on 12-15-2022 Creatinine [Mass/Vol] 0.87 mg/dL Normal 0.60-1.20 [facility] Comment on above: Performed By: #### C MP, CBC, ESR #### [address] Erythrocyte Sedimentation Ra moose 12-15-2022 ESR (Bld) [Velocity] 44 mm/h High 0-29 [facility] Comment on above: Result Comment: PERF ORMED BY: [place] [address] PATHOLOGIST STAFFING ASSOCIATE RENE BOWSER M.D. Performed By: #### C MP, CBC, ESR #### [address] Erythrocyte distribution wid th [Ratio] by Automated countOrdered By: Brianda Harris on 12-15-2022 Erythrocyte distribution width (RBC) [Ratio] 14.7 % Normal 11.9-15.3 [facility] Comment on above: Performed By: #### C MP, CBC, ESR #### [address] Erythrocyte sedimentation ra te by Photometric methodOrdered By: Brianda Harris on 12-15-2022 ESR Photometric method (Bld) [Velocity] 44 mm/hr 0-29 [facility] Erythrocytes [#/volume] in B lood by Automated countOrdered By: Brianda Harris on 12-15-2022 RBC (Bld) [#/Vol] 5.01 10*6/uL High 3.60-5.00 [facility] Comment on above: Performed By: #### C MP, CBC, ESR #### [address] Glucose [Mass/volume] in Ser um or PlasmaOrdered By: Brianda Harris on 12-15-2022 Glucose [Mass/Vol] 69 mg/dL Low 70-100 [facility] Comment on above: ADA recommended refe rence rangeRandom Glucose Reference Range is dependent on time and content of last meal. Glucose of more than 200 mg/dL in a nonstressed, ambulatory subject supports the diagnosis of Diabetes Mellitus. Result Comment: [place] om Glucose Reference Range is dependent on time and content of last meal. Glucose of more than 200 mg/dL in a nonstressed, ambulatory subject supports the diagnosis of Diabetes Mellitus. ADA recommended reference range Performed By: #### C MP, CBC, ESR #### [address] Hematocrit [Volume Fraction] of Blood by Automated countOrdered By: Brianda Harris on 12-15-2022 Hematocrit (Bld) [Volume fraction] 43.3 % Normal 34.0-46.4 [facility] Comment on above: Performed By: #### C MP, CBC, ESR #### [address] Hemoglobin [Mass/volume] in BloodOrdered By: Brianda Harris on 12-15-2022 Hemoglobin (Bld) [Mass/Vol] 14.5 g/dL Normal 11.8-15.4 [facility] Comment on above: Performed By: #### C MP, CBC, ESR #### [address] Leukocytes [#/volume] correc abena for nucleated erythrocytes in Blood by Automated counOrdered By: Brianda Harris on 12-15-2022 WBC corrected for nucl RBC Auto (Bld) [#/Vol] 11.5 10*3/uL 3.8-11.6 [facility] Leukocytes [#/volume] in Blo od by Automated countOrdered By: Brianda Harris on 12-15-2022 WBC (Bld) [#/Vol] 11.5 10*3/uL Normal 3.8-11.6 [facility] Comment on above: Performed By: #### C MP, CBC, ESR #### [address] [place] [address] [place] Lymphocytes [#/volume] in Bl ood by Automated countOrdered By: Brianda Harris on 12-15-2022 Lymphocytes (Bld) [#/Vol] 2.9 10*3/uL Normal 1.00-4.8 [facility] Comment on above: Performed By: #### C MP, CBC, ESR #### [address] Lymphocytes/100 leukocytes i n Blood by Automated countOrdered By: Brianda Harris on 12-15-2022 Lymphocytes/100 WBC (Bld) 25.0 % Normal . [facility] Comment on above: Performed By: #### C MP, CBC, ESR #### [address] MCH [Entitic mass] by Automa abena countOrdered By: Brianda Harris on 12-15-2022 MCH (RBC) [Entitic mass] 29.0 pg Normal 24.7-34.3 [facility] Comment on above: Performed By: #### C MP, CBC, ESR #### [address] MCHC Auto (RBC) [Mass/Vol]Or dered By: Brianda Harris on 12-15-2022 MCHC (RBC) [Mass/Vol] 33.5 g/dL 32.0-35.0 [facility] MCV [Entitic volume] by Auto mated countOrdered By: Brianda Harris on 12-15-2022 MCV (RBC) [Entitic vol] 86.4 fL Normal 80-100 [facility] Comment on above: Performed By: #### C MP, CBC, ESR #### [place] [address] [place] Neutrophils [#/volume] in Bl ood by Automated countOrdered By: Brianda Harris on 12-15-2022 Neutrophils (Bld) [#/Vol] 7.1 10*3/uL Normal 1.8-7.7 [facility] Comment on above: Performed By: #### C MP, CBC, ESR #### [address] No Panel InformationOrdered By: Brianda Harris on 12-15-2022 Estimated GFR (CKD-EPI) > 60.0 mL/Min [facility] Creatinine Clearance (Chem N/A [facility] Nucleated erythrocytes [Pres ence] in Blood by Automated countOrdered By: Brianda Harris on 12-15-2022 Nucleated RBC Auto Ql (Bld) 0.1 /100{WBC} 0-0.5 [facility] Platelet mean volume [Entiti c volume] in Blood by Automated countOrdered By: Brianda Harris on 12-15-2022 Platelet mean volume (Bld) [Entitic vol] 9.2 fL Normal 6.3-10.7 [facility] Comment on above: Performed By: #### C MP, CBC, ESR #### [facility] [address] [place] [address] Platelets [#/volume] in Bloo d by Automated countOrdered By: Brianda Harris on 12-15-2022 Platelets (Bld) [#/Vol] 305 10*3/uL Normal 150-450 [facility] Comment on above: Performed By: #### C MP, CBC, ESR #### [address] Potassium [Moles/volume] in Serum or PlasmaOrdered By: Brianda Harris on 12-15-2022 Potassium [Moles/Vol] 3.8 mmol/L Normal 3.5-5.1 [facility] Comment on above: Performed By: #### C MP, CBC, ESR #### [place] [address] [place] Protein [Mass/volume] in Ser um or PlasmaOrdered By: Brianda Harris on 12-15-2022 Protein [Mass/Vol] 6.8 g/dL Normal 6.4-8.9 [facility] Comment on above: Performed By: #### C MP, CBC, ESR #### [facility] [address] Serum globulin measurement b y calculation (mass/volume)Ordered By: Brianda Harris on 12-15-2022 Globulin (S) [Mass/Vol] 3.0 g/dL [facility] Comment on above: Performed By: #### C MP, CBC, ESR #### [address] Serum or plasma albumin/glob ulin mass ratioOrdered By: Brianda Harris on 12-15-2022 Albumin/Globulin [Mass ratio] 1.3 {ratio} [facility] Comment on above: Performed By: #### C MP, CBC, ESR #### [address] Serum or plasma anion gap de terminationOrdered By: Brianda Harris on 12-15-2022 Anion gap [Moles/Vol] 12.2 mmol/L Normal 6.0-15.0 [facility] Comment on above: Performed By: #### C MP, CBC, ESR #### [address] Sodium [Moles/volume] in Ser um or PlasmaOrdered By: Brianda Harris on 12-15-2022 Sodium [Moles/Vol] 137 mmol/L Normal 136-145 [facility] Comment on above: Performed By: #### C MP, CBC, ESR #### [address] Urea nitrogen [Mass/volume] in Serum or PlasmaOrdered By: Brianda Harris on 12-15-2022 Urea nitrogen [Mass/Vol] 27 mg/dL High 7-25 [facility] Comment on above: Performed By: #### C MP, CBC, ESR #### [address] US carotid doppler BIon 09- US carotid doppler BI [facility] [place] [address] [place] [address] Ultrasound Report Signed Patient: Cely Barbosa MR#: [id number] 80 : 1940 Acct:[id number] Age/Sex: 82 / F ADM Date: 11/24/22 Loc: [facility] Room: Type: [facility] Attending Dr: Blake Zhao MD Ordering Provider: Blake Zhao MD Date of Service: 11/24/22 US/US carotid doppler BI: I65.23 Copies to: Blake Zhao MD CAROTID DUPLEX INDICATION: known carotid occlusive disease PROCEDURE: Color-flow duplex scanning is used to interrogate the extracranial carotid arterial system, as well as both vertebral arteries. Both carotid bifurcations show mild to moderate heterogeneous plaque formation. The proximal right internal carotid artery shows a highest peak systolic velocity of 335 cm/s with an end-diastolic velocity of 34.9 cm/s . The mid internal carotid artery measures 109 cm/s peak systolic and 18 cm/s end diastolic. The distal segment measures 95.1 cm/s peak systolic with an end diastolic velocity of 20.5 cm/s . The velocities of the right common carotid artery are 73.9 cm/s peak systolic and 7.46 cm/s end-diastolic proximally and 73.3 cm/s peak systolic and 12.4 cm/s end diastolic distally. The peak systolic velocity ratio of the internal to the common carotid artery is 4.57. The right external carotid artery measures 202 cm/s peak systolic. The right vertebral artery is patent at 59 cm/s with antegrade flow. The proximal left internal carotid artery shows a highest peak systolic velocity of 104 cm/s with an end-diastolic velocity of 25.2 cm/s . The mid internal carotid artery measures 154 cm/s peak systolic and 17.6 cm/s end diastolic. The distal segment measures 91.9 cm/s peak systolic with an end diastolic velocity of 20.6 cm/s . The velocities of the left common carotid artery are 83.2 cm/s peak systolic and 12.4 cm/s end-diastolic proximally and 147 cm/s peak systolic and 32.9 cm/s end diastolic distally. The peak systolic velocity ratio of the internal to the common carotid artery is 1.05 . The left external carotid artery measures 203 cm/s peak systolic. The left vertebral artery is patent at 57.5 cm/s with antegrade flow. US/US carotid doppler BI IMPRESSION: Greater than 70% stenosis of the right internal carotid artery. Approximately 50% stenosis of the left internal carotid artery. Impression dictated by: Blake Zhao M.D.11/24/2022 1:54 PM Dictation Location: [place] [address] Tech: Lorraine Heckmarlene Transcribed By: TORIN 11/24/22 1354 Dictated By: Blake Zhao MD 11/24/22 1351 Signed By: 11/24/22 1354 Normal [facility] CBC AUTO DIFFon 06-26-2022 BASO # 0.1 103/ul Normal 0.0-0.1 [facility] Comment on above: Performed By: #### C MADM, BNP, CMP #### [facility] [address] [place] [address] Dr. Marco Greer Basophils/100 WBC (Bld) 0.6 % Normal 0.2-2.0 [facility] Comment on above: Performed By: #### C MADM, BNP, CMP #### [facility] [address] [place] [address] [address] Marco Greer EO # 0.2 103/ul Normal 0.0-0.7 [facility] Comment on above: Performed By: #### C MADM, BNP, CMP #### [facility] [address] [place] [address] [address] Marco Greer Eosinophils/100 WBC (Bld) 2.1 % Normal 0.9-7.0 [facility] Comment on above: Performed By: #### C MADM, BNP, CMP #### [facility] [address] [place] [address] [address] Marco Greer Erythrocyte distribution width (RBC) [Ratio] 17.3 % Critically high 11.0-15.0 [facility] Comment on above: Performed By: #### C MADM, BNP, CMP #### [facility] [address] [place] [address] Dr. Marco Greer Hematocrit (Bld) [Volume fraction] 40.2 % Normal 36.0-48.0 [facility] Comment on above: Performed By: #### C MADM, BNP, CMP #### [facility] [address] [place] [address] Dr. Marco Greer Hemoglobin (Bld) [Mass/Vol] 13.0 g/dL Normal 12.0-16.0 [facility] Comment on above: Performed By: #### C MADM, BNP, CMP #### [facility] [address] [place] [address] Dr. Marco Greer IG # 0.06 10e3/ul Critically high 0.00-0.03 [facility] Comment on above: Performed By: #### C MADM, BNP, CMP #### [facility] [address] [place] [address] Dr. Marco Greer IG % 0.6 % Critically high 0.0-0.5 [facility] Comment on above: Performed By: #### C MADM, BNP, CMP #### [facility] [address] [place] [address] Dr. Marco Greer LYMPH # 2.1 103/ul Normal 1.2-3.8 [facility] Comment on above: Performed By: #### C MADM, BNP, CMP #### [facility] [address] [place] [address] Dr. Marco Greer Lymphocytes/100 WBC (Bld) 19.6 % Critically low 20.5-60.0 [facility] Comment on above: Performed By: #### C MADM, BNP, CMP #### [facility] [address] [place] [address] Dr. Marco Greer MANUAL DIFF REQ NO Normal [facility] Comment on above: Performed By: #### C MADM, BNP, CMP #### [facility] [address] [place] [address] Dr. Marco Greer MCH (RBC) [Entitic mass] 27.3 pg Normal 26.7-34.0 [facility] Comment on above: Performed By: #### C MADM, BNP, CMP #### [facility] [address] [place] [address] Dr. Marco Greer MCHC (RBC) [Mass/Vol] 32.3 g/dL Normal 29.9-35.2 [facility] Comment on above: Performed By: #### C MADM, BNP, CMP #### [facility] [address] [place] [address] Dr. Marco Greer MCV (RBC) [Entitic vol] 84.5 fL Normal 81.0-99.0 [facility] Comment on above: Performed By: #### C MADM, BNP, CMP #### [facility] [address] [place] [address] Dr. Marco Greer MONO # 0.9 103/ul Critically high 0.3-0.8 [facility] Comment on above: Performed By: #### C MADM, BNP, CMP #### [facility] [address] [place] [address] Dr. Marco Greer Monocytes/100 WBC (Bld) 8.6 % Normal 1.7-12.0 [facility] Comment on above: Performed By: #### C MADM, BNP, CMP #### [facility] [address] [place] [address] Dr. Marco Greer NEUT # 7.4 103/ul Critically high 1.4-6.5 [facility] Comment on above: Performed By: #### C MADM, BNP, CMP #### [facility] [address] [place] [address] Dr. Marco Greer Neutrophils/100 WBC (Bld) 68.5 % Normal 43.0-75.0 [facility] Comment on above: Performed By: #### C MADM, BNP, CMP #### [facility] [address] [place] [address] Dr. Marco Greer Platelet mean volume (Bld) [Entitic vol] 9.6 fL Normal 9.5-13.5 [facility] Comment on above: Performed By: #### C MADM, BNP, CMP #### [facility] [address] [place] [address] Dr. Marco Greer PLT 283 103/ul Normal 150-450 [facility] Comment on above: Performed By: #### C MADM, BNP, CMP #### [facility] [address] [place] [address] [address] Marco Greer RBC 4.76 106/ul Normal 4.20-5.40 [facility] Comment on above: Performed By: #### C MADM, BNP, CMP #### [facility] [address] [place] [address] [address] Marco Greer WBC 10.7 103/ul Normal 4.0-11.0 [facility] Comment on above: Performed By: #### C MADM, BNP, CMP #### [facility] [address] [place] [address] [address] Marco Greer FREE T3on 06-26-2022 FREE T3 2.47 pg/mlL Normal 2.18-3.98 [facility] Comment on above: Performed By: #### C MADM, BNP, CMP #### [facility] [address] [place] [address] Dr. Marco Greer FREE T4on 06-26-2022 Free T4 [Mass/Vol] 1.39 ng/dL Normal 0.76-1.46 [facility] Comment on above: Performed By: #### C MP #### [facility] [address] [place] [address] Dr. Marco Greer LIPID PROFILEon 06-26-2022 CHOL-HDL RATIO NORM SEE BELOW Normal [facility] Comment on above: Result Comment: 3.3 - 4.4 LOW RISK 4.4 - 7.1 AVERAGE RISK 7.1 - 11.0 MODERATE RISK >11.0 HIGH RISK Performed By: #### C MADM, BNP, CMP #### [facility] [address] [place] [address] Dr. Marco Greer Cholesterol [Mass/Vol] 234 mg/dL Critically high <=200 [facility] Comment on above: Performed By: #### C MADM, BNP, CMP #### [facility] [address] [place] [address] Dr. Marco Greer Cholesterol in HDL [Mass/Vol] 63 mg/dL Critically high 40-60 [facility] Comment on above: Performed By: #### C MADM, BNP, CMP #### [facility] [address] [place] [address] [address] Marco Greer Cholesterol in LDL [Mass/Vol] 139.2 mg/dL Normal [facility] Comment on above: Performed By: #### C MADM, BNP, CMP #### [facility] [address] [place] [address] [address] Marco Greer Cholesterol.total/Chol esterol in HDL [Mass ratio] 3.7 {ratio} Normal [facility] Comment on above: Performed By: #### C MADM, BNP, CMP #### [facility] [address] [place] [address] [address] Marco Greer HDL NORMAL > or = 60 mg/dl - LO W CARDIOVASCULAR RISK <40 mg/dl - HIGH CARDIOVASCULAR RISK Normal [facility] Comment on above: Performed By: #### C MADM, BNP, CMP #### [facility] [address] [place] [address] [address] Marco Greer LDL CALC NORMAL SEE BELOW Normal [facility] Comment on above: Result Comment: <100 mg/dl OPTIMAL 100 - 129 mg/dl NEAR OR ABOVE OPTIMAL 130 - 159 mg/dl BORDERLINE HIGH 160 - 189 mg/dl HIGH >190 mg/dl VERY HIGH Performed By: #### C MADM, BNP, CMP #### [facility] [address] [place] [address] [address] Marco Greer Triglyceride [Mass/Vol] 159 mg/dL Critically high <=150 [facility] Comment on above: Performed By: #### C MADM, BNP, CMP #### [facility] [address] [place] [address] [address] Marco Greer VLDL CALC 31.8 mg/dL Normal [facility] Comment on above: Performed By: #### C MADM, BNP, CMP #### [facility] [address] [address] [address] Marco Greer LIVER PROFILEon 06-26-2022 Albumin [Mass/Vol] 3.1 g/dL Critically low 3.4-5.0 [facility] Comment on above: Performed By: #### C MADM, BNP, CMP #### [facility] [address] [address] [address] Marco Greer Albumin/Globulin [Mass ratio] 0.7 {ratio} Normal [facility] Comment on above: Performed By: #### C MADM, BNP, CMP #### [facility] [address] [address] [address] Marco Greer ALP [Catalytic activity/Vol] 75 U/L Normal 46-116 [facility] Comment on above: Performed By: #### C MADM, BNP, CMP #### [facility] [address] [address] [address] Marco Greer ALT [Catalytic activity/Vol] 28 U/L Normal 14-59 [facility] Comment on above: Performed By: #### C MADM, BNP, CMP #### [facility] [address] [address] [address] Marco Greer AST [Catalytic activity/Vol] 22 U/L Normal 15-37 [facility] Comment on above: Performed By: #### C MADM, BNP, CMP #### [facility] [address] [address] [address] Marco Greer BILI, CONJUGATED 0.1 mg/dL Normal 0.0-0.2 [facility] Comment on above: Performed By: #### C MADM, BNP, CMP #### [facility] [address] [place] [address] [address] Marco Greer Bilirubin [Mass/Vol] 0.3 mg/dL Normal 0.2-1.0 [facility] Comment on above: Performed By: #### C MADM, BNP, CMP #### [facility] [address] [address] [address] Marco Greer Globulin (S) [Mass/Vol] 4.3 g/dL Normal [facility] Comment on above: Performed By: #### C MADM, BNP, CMP #### [facility] [address] [address] [address] Marco Greer Protein [Mass/Vol] 7.4 g/dL Normal 6.4-8.2 [facility] Comment on above: Performed By: #### C MADM, BNP, CMP #### [facility] [address] [address] [address] Marco Greer PROF CHEM 8 (BAS METB)on Anion gap [Moles/Vol] 14.3 mmol/L Normal [facility] Comment on above: Performed By: #### F T3, TSH, BMP, LIVER, LIPID #### [facility] [address] [place] [address] Dr. Marco Greer Calcium [Mass/Vol] 9.2 mg/dL Normal 8.5-10.1 [facility] Comment on above: Performed By: #### F T3, TSH, BMP, LIVER, LIPID #### [facility] [address] [address] [address] Marco Greer Chloride [Moles/Vol] 100 mmol/L Normal 98-107 [facility] Comment on above: Performed By: #### F T3, TSH, BMP, LIVER, LIPID #### [facility] [address] [address] [address] Marco Greer CO2 [Moles/Vol] 27.2 mmol/L Normal 21.0-32.0 [facility] Comment on above: Performed By: #### F T3, TSH, BMP, LIVER, LIPID #### [facility] [address] [place] [address] Dr. Marco Greer Creatinine [Mass/Vol] 0.94 mg/dL Normal 0.55-1.02 [facility] Comment on above: Performed By: #### F T3, TSH, BMP, LIVER, LIPID #### [facility] [address] [address] [address] Marco Greer EGFR-AF CITIZEN [place] >60 Normal >=60 [facility] Comment on above: Performed By: #### F T3, TSH, BMP, LIVER, LIPID #### [facility] [address] [address] [address] Marco Greer EGFR-NON AF CITIZEN [place] 57 mL/min/1.73m2 Critically low >=60 [facility] Comment on above: Performed By: #### F T3, TSH, BMP, LIVER, LIPID #### [facility] [address] [address] [address] Marco Greer Glucose [Mass/Vol] 84 mg/dL Normal 74-106 [facility] Comment on above: Performed By: #### F T3, TSH, BMP, LIVER, LIPID #### [facility] [address] [place] [address] Dr. Marco Greer Potassium [Moles/Vol] 4.5 mmol/L Normal 3.5-5.1 [facility] Comment on above: Performed By: #### F T3, TSH, BMP, LIVER, LIPID #### [facility] [address] [place] [address] Dr. Marco Greer Sodium [Moles/Vol] 137 mmol/L Normal 136-145 [facility] Comment on above: Performed By: #### F T3, TSH, BMP, LIVER, LIPID #### [facility] [address] [place] [address] Dr. Marco Greer Urea nitrogen [Mass/Vol] 21.0 mg/dL Critically high 7.0-18.0 [facility] Comment on above: Performed By: #### F T3, TSH, BMP, LIVER, LIPID #### [facility] [address] [place] [address] Dr. Marco Greer Urea nitrogen/Creatinine [Mass ratio] 22.3 mg/mg Normal [facility] Comment on above: Performed By: #### F T3, TSH, BMP, LIVER, LIPID #### [facility] [address] [place] [address] Dr. Marco Greer SED RATE WESTERGRENon 2022 SED RATE 56 mm/hr Critically high <=30 [facility] Comment on above: Performed By: #### C MP #### [facility] [address] [place] [address] Dr. Marco Greer TSHon 06-26-2022 TSH 0.286 uIU/mL Critically low 0.358-3.74 0 [facility] Comment on above: Performed By: #### C MADM, BNP, CMP #### [facility] [address] [place] [address] Dr. Marco Greer PROF CHEM 8 (BAS METB)on Anion gap [Moles/Vol] 14.2 mmol/L Normal [facility] Comment on above: Performed By: #### C MADM, BNP, CMP #### [facility] [address] [place] [address] Dr. Marco Greer Calcium [Mass/Vol] 9.0 mg/dL Normal 8.5-10.1 [facility] Comment on above: Performed By: #### C MADM, BNP, CMP #### [facility] [address] [place] [address] Dr. Marco Greer Chloride [Moles/Vol] 102 mmol/L Normal 98-107 [facility] Comment on above: Performed By: #### C MADM, BNP, CMP #### [facility] [address] [place] [address] Dr. Marco Greer CO2 [Moles/Vol] 27.3 mmol/L Normal 21.0-32.0 [facility] Comment on above: Performed By: #### C MADM, BNP, CMP #### [facility] [address] [place] [address] Dr. Marco Greer Creatinine [Mass/Vol] 1.18 mg/dL Critically high 0.55-1.02 [facility] Comment on above: Performed By: #### C MADM, BNP, CMP #### [facility] [address] [place] [address] Dr. Marco Greer EGFR-AF [place] 53 mL/min/1.73m2 Critically low >=60 [facility] Comment on above: Performed By: #### C MADM, BNP, CMP #### [facility] [address] [place] [address] Dr. Marco Greer EGFR-NON AF [place] 44 mL/min/1.73m2 Critically low >=60 [facility] Comment on above: Performed By: #### C MADM, BNP, CMP #### [facility] [address] [address] [address] Marco Greer Glucose [Mass/Vol] 115 mg/dL Critically high 74-106 [facility] Comment on above: Performed By: #### C MADM, BNP, CMP #### [facility] [address] [place] [address] Dr. Marco Greer Potassium [Moles/Vol] 3.5 mmol/L Normal 3.5-5.1 [facility] Comment on above: Performed By: #### C MADM, BNP, CMP #### [facility] [address] [address] [address] Marco Greer Sodium [Moles/Vol] 140 mmol/L Normal 136-145 [facility] Comment on above: Performed By: #### C MADM, BNP, CMP #### [facility] [address] [place] [address] Dr. Marco Greer Urea nitrogen [Mass/Vol] 31.0 mg/dL Critically high 7.0-18.0 [facility] Comment on above: Performed By: #### C MADM, BNP, CMP #### [facility] [address] [place] [address] Dr. Marco Greer Urea nitrogen/Creatinine [Mass ratio] 26.3 mg/mg Normal [facility] Comment on above: Performed By: #### C MADM, BNP, CMP #### [facility] [address] [place] [address] Dr. Marco Greer Cardiovasc Arrhythmia Result son 04-01-2022 Cardiovas Arrhythmia Results Reason For Visit Event Monitor: Costa is only wearing monitor for 5 days CELY is here for the application of a 30 day event monitor in office., Diagnosis: lightheaded and PVC Ordering Physician: Dr. Miri Hill MD Enrollment sent to: [employer] [address] Monitor number [id number] applied. Procedure Date I received for dictation 04/13/22 5 day monitor Indication for test - dizziness 2 patient triggered events at rest. 1 auto triggered event. All rhythms are normal sinus rhythm. Heart rates varied from 73 - 87 bpm. Imp: No clinically significant rhythm. Clinical correlation recommended. Diagnosis/Problems Assessed Lightheaded (780.4) (R42) PVC (premature ventricular contraction) (427.69) (I49.3) Future Appointments Date/TimeProviderSpecialty Site 06/19/2022 03:00 VASHTIlindsey, Miri, [id number] [facility] 2 [place] 250 DO Signatures Electronically signed by : Radha Copeland MD; Apr 13 2022 9:10AM EST (Author) Normal Recognia Office Visit (Cardiology)on 03-27-2022 Follow-up visit Diagnoses/Problems Assessed S/P CABG x 3 (V45.81) (Z95.1) Benign essential hypertension (401.1) (I10) Bilateral carotid artery disease, unspecified type (447.9) (I77.9) CAD (coronary artery disease) (414.00) (I25.10) PVC (premature ventricular contraction) (427.69) (I49.3) Former smoker (V15.82) (Z87.891) 1 pack daily- Quit in Lightheaded (780.4) (R42) Body mass index (BMI) of 20.0 to 20.9 in adult (V85.1) (Z68.20) Orders Body mass index (BMI) of 20.0 to 20.9 in adult, Lightheaded, PVC (premature ventricular contraction) IO Event Monitor 30 days; Status:Active - Perform Order,Retrospective Authorization; Requested for:[id number]; SocHx: Former smoker Tobacco Use Screening; Status:Complete; Done: [id number] Patient Instructions Please bring all medicines, vitamins, and herbal supplements with you when you come to the office. Prescriptions will not be filled unless you are compliant with your follow up appointments or have a follow up appointment scheduled as per instruction of your physician. Refills should be requested at the time of your visit. Event Holter monitor for 5 days Follow up in 3 months Patient to monitor blood pressures at home and keep a log to bring to next appt. Chief Complaint CELY BARBOSA is being seen for a medication change. Dizzness and fatigue. History of Present Illness 81 yo female here for follow-up. She was recently participating in cardiac rehab as she is s/p CABG and was noted to have frequent PVCs during that time. She states she was asymptomatic during this episode. She was advised to f/u with cardiology. She was also seen by nephrology who is managing hyponatremia. 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 Atorvastatin Calcium 80 MG Oral TabletTAKE 1/2 TABLET DAILY. Clopidogrel Bisulfate 75 MG Oral TabletTAKE 1 TABLET BY MOUTH DAILY Furosemide 20 MG Oral TabletTAKE 1 TABLET BY MOUTH TWICE DAILY Levothyroxine Sodium 100 MCG Oral TabletTake 1 tablet daily Lisinopril 5 MG Oral TabletTAKE 1 TABLET BY MOUTH DAILY Sodium Chloride 1 GM Oral TabletTake 1 tablet 2x/day. Toprol XL 50 MG Oral Tablet Extended Release 24 HourTAKE 1/2 TABLET DAILY. Patient brought in an updated medication list. Mitra Ellis MA Allergies Medication No Known Drug Allergies Recorded By: Yanira Lazaro; 02/13/2022 11:12:05 AM Social History Problems Former smoker (V15.82) (Z87.891) 1 pack daily- Quit in No alcohol use No caffeine use No illicit drug use Review of Systems Constitutional: not feeling tired. Cardiovascular: no intermittent leg claudication and as noted in HPI. Respiratory: no cough and no shortness of breath. Gastrointestinal: nausea, but no change in bowel habits and no blood in stools. Integumentary: no skin rashes. Neurological: dizziness, but no seizures and no frequent falls. All other systems have been reviewed and are negative for complaint. Vitals Vital Signs Recorded: 27Mar2022 11:52AM Heart Rate60, L Radial Eitbsiao311, LUE, Sitting Zoayqzisc91, LUE, Sitting Height5 ft 4 in Ovsmqx459 lb BMI Hnbravsrfq39.43 kg/m2 BSA Calculated1.57 Tobacco Useb) No PHQ-2 #1. Over the last 2 weeks have you felt down, depressed or hopeless? (If yes, answer PHQ-9 below)No PHQ-2 #2. Over the last 2 weeks have you felt little interest or pleasure in doing things? (If yes, answer PHQ-9 below)No Falls Screening (Age 18+)a) No falls within the last year Physical Exam Constitutional: alert and in no acute distress. Neck: neck is supple, symmetric, trachea midline, no masses and no thyromegaly . Pulmonary: no increased work of breathing or signs of respiratory distress and lungs clear to auscultation. Cardiovascular: carotid pulses 2+ bilaterally with no bruit , JVP was normal, no thrills , regular rhythm, normal S1 and S2, no murmurs , pedal pulses 2+ bilaterally and no edema . Abdomen: abdomen non-tender, no masses and no hepatomegaly . Skin: skin warm and dry, normal skin turgor . Psychiatric judgment and insight is normal and oriented to person, place and time . Impressions 1. Coronary artery disease - S/p CABG x 3 - On DAPT with ASA and plavix, on lipitor 2. HLD - On statin 3. HTN - On toprol-xL and lisinopril - Patient's BP is high in clinic today but she states home health checks her BPs regularly and they are low to normal. Also had low BPs while in hospital. BP at PCPs office re (more content not included)... [facility] Screening.on 023 Adult depression screening assessment No [facility] 250 DO Work Phone: Fall risk assessment a) No falls within the last year [facility] 250 DO Work Phone: Tobacco use status CPHS b) No [facility]-[place] 250 DO Work Phone: CBC AUTO DIFFon 03-11-2022 BASO # 0.1 103/ul Normal 0.0-0.1 [facility] Comment on above: Performed By: #### C MADM, BNP, CMP #### [facility] [address] [address] [address] Marco Greer Basophils/100 WBC (Bld) 0.9 % Normal 0.2-2.0 [facility] Comment on above: Performed By: #### C MADM, BNP, CMP #### [facility] [address] [place] [address] Dr. Marco Greer EO # 0.9 103/ul Critically high 0.0-0.7 [facility] Comment on above: Performed By: #### C MADM, BNP, CMP #### [facility] [address] [place] [address] Dr. Marco Greer Eosinophils/100 WBC (Bld) 9.3 % Critically high 0.9-7.0 [facility] Comment on above: Performed By: #### C MADM, BNP, CMP #### [facility] [address] [place] [address] Dr. Marco Greer Erythrocyte distribution width (RBC) [Ratio] 15.5 % Critically high 11.0-15.0 [facility] Comment on above: Performed By: #### C MADM, BNP, CMP #### [facility] [address] [place] [address] Dr. Marco Greer Hematocrit (Bld) [Volume fraction] 37.4 % Normal 36.0-48.0 [facility] Comment on above: Performed By: #### C MADM, BNP, CMP #### [facility] [address] [place] [address] Dr. Marco Greer Hemoglobin (Bld) [Mass/Vol] 11.9 g/dL Critically low 12.0-16.0 [facility] Comment on above: Performed By: #### C MADM, BNP, CMP #### [facility] [address] [place] [address] Dr. Marco Greer IG # 0.03 10e3/ul Normal 0.00-0.03 [facility] Comment on above: Performed By: #### C MADM, BNP, CMP #### [facility] [address] [place] [address] Dr. Marco Greer IG % 0.3 % Normal 0.0-0.5 [facility] Comment on above: Performed By: #### C MADM, BNP, CMP #### [facility] [address] [place] [address] Dr. Marco Greer LYMPH # 2.0 103/ul Normal 1.2-3.8 [facility] Comment on above: Performed By: #### C MADM, BNP, CMP #### [facility] [address] [place] [address] Dr. Marco Greer Lymphocytes/100 WBC (Bld) 20.9 % Normal 20.5-60.0 [facility] Comment on above: Performed By: #### C MADM, BNP, CMP #### [facility] [address] [place] [address] Dr. Marco Greer MANUAL DIFF REQ NO Normal [facility] Comment on above: Performed By: #### C MADM, BNP, CMP #### [facility] [address] [place] [address] Dr. Marco Greer MCH (RBC) [Entitic mass] 27.2 pg Normal 26.7-34.0 [facility] Comment on above: Performed By: #### C MADM, BNP, CMP #### [facility] [address] [place] [address] Dr. Marco Greer MCHC (RBC) [Mass/Vol] 31.8 g/dL Normal 29.9-35.2 [facility] Comment on above: Performed By: #### C MADM, BNP, CMP #### [facility] [address] [place] [address] Dr. Marco Greer MCV (RBC) [Entitic vol] 85.6 fL Normal 81.0-99.0 [facility] Comment on above: Performed By: #### C MADM, BNP, CMP #### [facility] [address] [place] [address] Dr. Marco Greer MONO # 0.9 103/ul Critically high 0.3-0.8 [facility] Comment on above: Performed By: #### C MADM, BNP, CMP #### [facility] [address] [place] [address] Dr. Marco Greer Monocytes/100 WBC (Bld) 9.1 % Normal 1.7-12.0 [facility] Comment on above: Performed By: #### C MADM, BNP, CMP #### [facility] [address] [place] [address] Dr. Marco Greer NEUT # 5.6 103/ul Normal 1.4-6.5 [facility] Comment on above: Performed By: #### C MADM, BNP, CMP #### [facility] [address] [place] [address] Dr. Marco Greer Neutrophils/100 WBC (Bld) 59.5 % Normal 43.0-75.0 [facility] Comment on above: Performed By: #### C MADM, BNP, CMP #### [facility] [address] [place] [address] Dr. Marco Greer Platelet mean volume (Bld) [Entitic vol] 9.9 fL Normal 9.5-13.5 [facility] Comment on above: Performed By: #### C MADM, BNP, CMP #### [facility] [address] [place] [address] Dr. Marco Greer PLT 343 103/ul Normal 150-450 [facility] Comment on above: Performed By: #### C MADM, BNP, CMP #### [facility] [address] [place] [address] Dr. Marco Greer RBC 4.37 106/ul Normal 4.20-5.40 [facility] Comment on above: Performed By: #### C MADM, BNP, CMP #### [facility] [address] [place] [address] Dr. Marco Greer WBC 9.4 103/ul Normal 4.0-11.0 [facility] Comment on above: Performed By: #### C MADM, BNP, CMP #### [facility] [address] [place] [address] Dr. Marco Greer CRPon 03-11-2022 CRP [Mass/Vol] mg/L Normal <=1.0 [facility] Comment on above: Performed By: #### C MP #### [facility] [address] [address] [address] Marco Greer FREE T3on 03-11-2022 FREE T3 2.74 pg/mlL Normal 2.18-3.98 [facility] Comment on above: Performed By: #### C MP #### [facility] [address] [place] [address] Dr. Marco Greer FREE T4on 03-11-2022 Free T4 [Mass/Vol] 1.41 ng/dL Normal 0.76-1.46 [facility] Comment on above: Performed By: #### C MADM, BNP, CMP #### [facility] [address] [address] [address] Marco Greer LIVER PROFILEon 03-11-2022 Albumin [Mass/Vol] 3.0 g/dL Critically low 3.4-5.0 [facility] Comment on above: Performed By: #### C MP #### [facility] [address] [place] [address] Dr. Marco Greer Albumin/Globulin [Mass ratio] 0.9 {ratio} Normal [facility] Comment on above: Performed By: #### C MP #### [facility] [address] [place] [address] Dr. Marco Greer ALP [Catalytic activity/Vol] 89 U/L Normal 46-116 [facility] Comment on above: Performed By: #### C MP #### [facility] [address] [place] [address] Dr. Marco Greer ALT [Catalytic activity/Vol] 19 U/L Normal 14-59 [facility] Comment on above: Performed By: #### C MP #### [facility] [address] [place] [address] Dr. Marco Greer AST [Catalytic activity/Vol] 22 U/L Normal 15-37 [facility] Comment on above: Performed By: #### C MP #### [facility] [address] [place] [address] Dr. Marco Greer BILI, CONJUGATED 0.1 mg/dL Normal 0.0-0.2 [facility] Comment on above: Performed By: #### C MP #### [facility] [address] [address] [address] aMrco Greer Bilirubin [Mass/Vol] 0.3 mg/dL Normal 0.2-1.0 [facility] Comment on above: Performed By: #### C MP #### [facility] [address] [address] [address] Marco Greer Globulin (S) [Mass/Vol] 3.5 g/dL Normal [facility] Comment on above: Performed By: #### C MP #### [facility] [address] [address] [address] Marco Greer Protein [Mass/Vol] 6.5 g/dL Normal 6.4-8.2 [facility] Comment on above: Performed By: #### C MP #### [facility] [address] [place] [address] Dr. Marco Greer PROF CHEM 8 (BAS METB)on Anion gap [Moles/Vol] 11.3 mmol/L Normal [facility] Comment on above: Performed By: #### C MP #### [facility] [address] [place] [address] Dr. Marco Greer Calcium [Mass/Vol] 8.7 mg/dL Normal 8.5-10.1 [facility] Comment on above: Performed By: #### C MP #### [facility] [address] [place] [address] Dr. Marco Greer Chloride [Moles/Vol] 103 mmol/L Normal 98-107 [facility] Comment on above: Performed By: #### C MP #### [facility] [address] [place] [address] Dr. Marco Greer CO2 [Moles/Vol] 26.6 mmol/L Normal 21.0-32.0 [facility] Comment on above: Performed By: #### C MP #### [facility] [address] [place] [address] Dr. Marco Greer Creatinine [Mass/Vol] 0.88 mg/dL Normal 0.55-1.02 [facility] Comment on above: Performed By: #### C MP #### [facility] [address] [address] [address] Marco Greer EGFR-AF [place]IZ[place] >60 Normal >=60 [facility] Comment on above: Performed By: #### C MP #### [facility] [address] [place] [address] Dr. Marco Greer EGFR-NON AF [place]IZ[place] OF [place] >60 Normal >=60 [facility] Comment on above: Performed By: #### C MP #### [facility] [address] [address] [address] Marco Greer Glucose [Mass/Vol] 91 mg/dL Normal 74-106 [facility] Comment on above: Performed By: #### C MP #### [facility] [address] [place] [address] Dr. Marco Greer Potassium [Moles/Vol] 3.9 mmol/L Normal 3.5-5.1 [facility] Comment on above: Performed By: #### C MP #### [facility] [address] [place] [address] Dr. Marco Greer Sodium [Moles/Vol] 137 mmol/L Normal 136-145 [facility] Comment on above: Performed By: #### C MP #### [facility] [address] [place] [address] Dr. Marco Greer Urea nitrogen [Mass/Vol] 20.0 mg/dL Critically high 7.0-18.0 [facility] Comment on above: Performed By: #### C MP #### [facility] [address] [place] [address] Dr. Marco Greer Urea nitrogen/Creatinine [Mass ratio] 22.7 mg/mg Normal [facility] Comment on above: Performed By: #### C MP #### [facility] [address] [place] [address] Dr. Marco Greer SED RATE [facility] 2021 SED RATE 60 mm/hr Critically high <=30 [facility] Comment on above: Performed By: #### C MADM, BNP, CMP #### [facility] [address] [place], [place] [address] Dr. Marco Greer TSHon 03-11-2022 TSH 0.600 uIU/mL Normal 0.358-3.74 0 [facility] Comment on above: Performed By: #### C MP #### [facility] [address] [place], [place] [address] Dr. Marco Greer Albumin [Mass/volume] in Ser um or PlasmaOrdered By: Brianda Harris on 03-04-2022 Albumin [Mass/Vol] 3.1 g/dL 3.2-5.5 [facility] Basophils Auto (Bld) [#/Vol] Ordered By: Brianda Harris on 03-04-2022 Basophils (Bld) [#/Vol] 0.1 10*3/uL 0.0-0.2 [facility] Basophils/100 WBC Auto (Bld) Ordered By: Brianda Harris on 03-04-2022 Basophils/100 WBC (Bld) 0.5 % . [facility] Creatinine and Glomerular fi ltration rate.predicted panel (S/P/Bld)Ordered By: Brianda Harris on 03-04-2022 Creatinine [Mass/Vol] 0.88 mg/dL 0.44-1.03 [facility] Eosinophils Auto (Bld) [#/Vo l]Ordered By: Brianda Harris on 03-04-2022 Eosinophils (Bld) [#/Vol] 0.0 10*3/uL 0.0-0.45 [facility] Eosinophils/100 WBC Auto (Bl d)Ordered By: Brianda Harris on 03-04-2022 Eosinophils/100 WBC (Bld) 0.4 % . [facility] Erythrocyte distribution wid th Auto (RBC) [Ratio]Ordered By: Brianda Harris on 03-04-2022 Erythrocyte distribution width (RBC) [Ratio] 15.7 % 11.9-15.3 [facility] Erythrocyte sedimentation ra te by Photometric methodOrdered By: Brianda Harris on 03-04-2022 ESR Photometric method (Bld) [Velocity] 59 mm/hr 0-29 [facility] Estimated glomerular filtrat ion rate (GFR) non- AmericanOrdered By: Brianda Harris on 03-04-2022 GFR/1.73 sq M.predicted among non-blacks MDRD (S/P/Bld) [Vol rate/Area] > 60 mL/Min [facility] Globulin Calc (S) [Mass/Vol] Ordered By: Brianda Harris on 03-04-2022 Globulin (S) [Mass/Vol] 3.7 g/dL [facility] Hematocrit Auto (Bld) [Volum e fraction]Ordered By: Brianda Harris on 03-04-2022 Hematocrit (Bld) [Volume fraction] 36.5 % 34.0-46.4 [facility] Hemoglobin [Mass/volume] in BloodOrdered By: Brianda Harris on 03-04-2022 Hemoglobin (Bld) [Mass/Vol] 11.7 g/dL 11.8-15.4 [facility] Leukocytes [#/volume] correc abena for nucleated erythrocytes in Blood by Automated counOrdered By: Brianda Harris on 03-04-2022 WBC corrected for nucl RBC Auto (Bld) [#/Vol] 10.4 10*3/uL 3.8-11.6 [facility] Lymphocytes Auto (Bld) [#/Vo l]Ordered By: Brianda Harris on 03-04-2022 Lymphocytes (Bld) [#/Vol] 0.9 10*3/uL 1.00-4.8 [facility] Lymphocytes/100 WBC Auto (Bl d)Ordered By: Brianda Harris on 03-04-2022 Lymphocytes/100 WBC (Bld) 8.5 % . [facility] MCH Auto (RBC) [Entitic mass ]Ordered By: Brianda Harris on 03-04-2022 MCH (RBC) [Entitic mass] 26.7 pg 24.7-34.3 [facility] MCHC Auto (RBC) [Mass/Vol]Or dered By: Brianda Harris on 03-04-2022 MCHC (RBC) [Mass/Vol] 31.9 g/dL 32.0-35.0 [facility] MCV Auto (RBC) [Entitic vol] Ordered By: Brianda Harris on 03-04-2022 MCV (RBC) [Entitic vol] 83.8 fL 80-100 [facility] Monocytes Auto (Bld) [#/Vol] Ordered By: Brianda Harris on 03-04-2022 Monocytes (Bld) [#/Vol] 0.2 10*3/uL 0.0-0.8 [facility] Monocytes/100 WBC Auto (Bld) Ordered By: Brianda Harris on 03-04-2022 Monocytes/100 WBC (Bld) 2.3 % . [facility] Neutrophils Auto (Bld) [#/Vo l]Ordered By: Brianda Harris on 03-04-2022 Neutrophils (Bld) [#/Vol] 9.2 10*3/uL 1.8-7.7 [facility] Neutrophils/100 WBC Auto (Bl d)Ordered By: Brianda Harris on 03-04-2022 Neutrophils/100 WBC (Bld) 88.3 % . [facility] No Panel InformationOrdered By: Brianda Harris on 03-04-2022 Estimated GFR () > 60 mL/Min [facility] Comment on above: GFR estimated refere nce range: According to KDOQI guidelines, <60 ml/min/1.73m2 is sufficient to diagnose a patient with chronic kidney disease. Pharmacy Creatinine Clearance (Chem N/A [facility] Nucleated erythrocytes [Pres ence] in Blood by Automated countOrdered By: Brianda Harris on 03-04-2022 Nucleated RBC Auto Ql (Bld) 0.0 /100{WBC} 0-0.5 [facility] Platelet mean volume Auto (B ld) [Entitic vol]Ordered By: Brianda Harris on 03-04-2022 Platelet mean volume (Bld) [Entitic vol] 8.5 fL 6.3-10.7 [facility] Platelets Auto (Bld) [#/Vol] Ordered By: Brianda Harris on 03-04-2022 Platelets (Bld) [#/Vol] 395 10*3/uL 150-450 [facility] Protein [Mass/volume] in Ser um or PlasmaOrdered By: Brianda Harris on 03-04-2022 Protein [Mass/Vol] 6.8 g/dL 6.1-7.9 [facility] RBC Auto (Bld) [#/Vol]Ordere d By: Brianda Harris on 03-04-2022 RBC (Bld) [#/Vol] 4.36 10*6/uL 3.60-5.00 [facility] Serum or plasma alanine kenny otransferase measurement without P-5'-P (enzymatic activiOrdered By: Brianda Harris on 03-04-2022 ALT No additional P-5'-P [Catalytic activity/Vol] 25 U/L 10-60 [facility] Serum or plasma albumin/glob ulin mass ratioOrdered By: Brianda Harris on 03-04-2022 Albumin/Globulin [Mass ratio] 0.8 {ratio} [facility] Serum or plasma alkaline lisy sphatase measurement (enzymatic activity/volume)Ordered By: Brianda Harris on 03-04-2022 ALP [Catalytic activity/Vol] 87 U/L 32-92 [facility] Serum or plasma anion gap de terminationOrdered By: Brianda Harris on 03-04-2022 Anion gap [Moles/Vol] 12.6 mmol/L 6.0-15.0 [facility] Serum or plasma aspartate am inotransferase measurement (enzymatic activity/volume)Ordered By: Brianda Harris on 03-04-2022 AST [Catalytic activity/Vol] 29 U/L 10-42 [facility] Serum or plasma calcium rashmi urement (mass/volume)Ordered By: Brianda Harris on 03-04-2022 Calcium [Mass/Vol] 8.9 mg/dL 8.2-10.2 [facility] Serum or plasma chloride reece surement (moles/volume)Ordered By: Brianda Harris on 03-04-2022 Chloride [Moles/Vol] 98 mmol/L 95-114 [facility] Serum or plasma glucose rashmi urement (mass/volume)Ordered By: Brianda Harris on 03-04-2022 Glucose [Mass/Vol] 109 mg/dL 70-100 [facility] Comment on above: ADA recommended refe rence rangeRandom Glucose Reference Range is dependent on time and content of last meal. Glucose of more than 200 mg/dL in a nonstressed, ambulatory subject supports the diagnosis of Diabetes Mellitus. Serum or plasma potassium me asurement (moles/volume)Ordered By: Brianda Harris on 03-04-2022 Potassium [Moles/Vol] 3.6 mmol/L 3.5-5.1 [facility] Serum or plasma sodium measu rement (moles/volume)Ordered By: Brianda Harris on 03-04-2022 Sodium [Moles/Vol] 131 mmol/L 136-146 [facility] Serum or plasma total biliru bin measurement (mass/volume)Ordered By: Brianda Harris on 03-04-2022 Bilirubin [Mass/Vol] 0.5 mg/dL 0.3-1.2 [facility] Serum or plasma total carbon dioxide measurement (moles/volume)Ordered By: Brianda Harris on 03-04-2022 CO2 [Moles/Vol] 24.0 mmol/L 22.0-30.0 [facility] Serum or plasma urea nitroge n measurement (mass/volume)Ordered By: Brianda Harris on 03-04-2022 Urea nitrogen [Mass/Vol] 15 mg/dL 9-23 [facility] WBC Auto (Bld) [#/Vol]Ordere d By: Brianda Harris on 03-04-2022 WBC (Bld) [#/Vol] 10.4 10*3/uL 3.8-11.6 [facility] Electrocardiogram 12 Leadon 02-27-2022 Electrocardiogram 12 Lead Ventricular Rate 61 Atrial Rate 61 P-R Interval 172 QRS Duration 90 Q-T Interval 446 QTC Calculation(Bazett) 448 P Ingomar 64 R Ingomar 27 T Ingomar 95 QRS Count 11 Q Onset 221 P Onset 135 P Offset 188 T Offset 444 QTC Fredericia 448 Diagnosis Class Abnormal Diagnosis Sinus rhythm with occasional Premature ventricular complexes Possible Left atrial enlargement Anterior infarct (cited on or before 06-JAN-2022) T wave abnormality, consider lateral ischemia Abnormal ECG When compared with ECG of 06-JAN-2022 11:46, T wave inversion more evident in Anterior-lateral leads Confirmed by Jan Gaona ([id number]) on 03/02/2022 2:16:11 PM [facility] No Panel Informationon 02-27 [email or web address] ?RetrieveTestByDateTime?Pa fopzjWM=[id number]&Date=&Time=13%3a11%3a48% 3a00&TestType=ECG&Site=1&O utputType=PDF&Ext=PDF [facility] 250 DO Work Phone: Sinus rhythm with occasional Premature ventricular complexes [facility] 250 DO Work Phone: Abnormal [facility] 250 DO Work Phone: [phone] [facility] 250 DO Work Phone: [phone] [facility] 250 DO Work Phone: [phone] [facility] 250 DO Work Phone: 135 1 [facility] 250 DO Work Phone: 221 1 [facility] 250 DO Work Phone: 11 1 [facility] 250 DO Work Phone: 95 1 [facility] 250 DO Work Phone: 27 1 [facility] 250 DO Work Phone: 64 1 [facility] 250 DO Work Phone: 446 1 [facility] 250 DO Work Phone: 90 1 [facility] 250 DO Work Phone: 172 1 [facility] 250 DO Work Phone: 61 1 [facility] 250 DO Work Phone: Office Visit (Cardiac Surger y)on 02-27-2022 Follow-up visit Diagnoses/Problems Assessed CAD (coronary artery disease) (414.00) (I25.10) S/P CABG x 3 (V45.81) (Z95.1) Orders CAD (coronary artery disease) Electrocardiogram 12 Lead; Status:Complete; Done: [id number] 01:23PM S/P CABG x 3 Cardiac Rehab Referral Evaluation and Treatment BELLVUE Status: Hold For - Scheduling,Retrospective By Protocol Authorization Requested for: [id number] Agreement : I agree to have my patient participate in the phase III outpatient cardiac rehabilitation program after completion of the phase II program. Consent : I consent to have my patient participate in the cardiac rehabilitation program. I will continue regular medical care of my patient throughout his/her participation in the program. Individualized Treatment Plan and Exercise Prescription : Defer the patients ITP and exercise prescription to be developed by the staff for your review and approval I authorize the Cardiac Rehabilitation Department to : Current lab values are helpful in order to assess the lipid status and individualize diet therapy. A venous blood sample will be drawn and lipids analyzed at the laboratory I authorize the Cardiac Rehabilitation Department to : Schedule a symptom limited graded exercise test with 12 lead ECG prior to starting cardiac rehabilitation and at discharge, if needed. Provider Impressions Excellent recovery following coronary bypass grafting x3 Impaired ventricular function. She would be referred for cardiac rehab. Further follow-up will be under the care of the cardiology team. I will arrange any further follow-up but happy to see her again at any point if required Chief Complaint Patient is here for a P/OP visit following CABG x3 done on January 12, 2022. Rehan CASTAÑEDAN, RN-BC. History of Present IllnessI reviewed her at the clinic today. She underwent coronary bypass grafting x3 on January 12 background of impaired left ventricular function. She has made an excellent recovery. At review today she had no complaints. She has been followed up at the cardiology clinic and is keen to start rehab. 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) Surgical History Problems History of Arm surgery History of Cholecystectomy Denied: History of Complete colonoscopy History of Coronary artery bypass graft Family History Mother Family history of Status post heart valve replacement Father Family history of myocardial infarction (V17.3) (Z82.49) Sister Family history of diabetes mellitus (V18.0) (Z83.3) Brother Family history of myocardial infarction (V17.3) (Z82.49) History of PTCA Social History Problems Former smoker (V15.82) (Z87.891) 1 pack daily- Quit in No alcohol use No caffeine use No illicit drug use Allergies Medication No Known Drug Allergies Recorded By: Yanira Lazaro; 02/13/2022 11:12:05 AM Current Meds Medication NameInstruction Aspirin 81 MG Oral Tablet Delayed ReleaseTAKE 1 TABLET DAILY. Atorvastatin Calcium 80 MG Oral TabletTAKE 1 TABLET BY MOUTH DAILY Clopidogrel Bisulfate 75 MG Oral TabletTAKE 1 TABLET BY MOUTH DAILY Docusate Sodium 100 MG Oral CapsuleTAKE 1 CAPSULE BY MOUTH DAILY NEEDED Furosemide 20 MG Oral TabletTAKE 1 TABLET BY MOUTH TWICE DAILY IFerex 150 150 MG Oral CapsuleTAKE 1 CAPSULE BY MOUTH DAILY Levothyroxine Sodium 100 MCG Oral TabletTake 1 tablet daily Lisinopril 2.5 MG Oral TabletTAKE 1 TABLET BY MOUTH DAILY Metoprolol Succinate ER 50 MG Oral Tablet Extended Release 24 HourTAKE 1.5 TABLET Daily Sodium Chloride 1 GM Oral TabletTake 1 tablet 2x/day. Vitals Vital Signs Recorded: [id number] 01:19PM Heart Rate61 Rrsypfcm086, LUE, Sitting Plenkjusb52, LUE, Sitting Height5 ft 4 in Biitth816 lb 2 oz BMI Uyigesgrqq85.79 kg/m2 BSA Calculated1.58 Tobacco Useb) No Falls Screening (Age 18+)a) No falls within the last year O2 Tseosqhbzx73, RA Pain Scale0/10 Physical Exam On examination she looked well Her blood pressure at the clinic today was 174/63. Auscultation of this reviewed by her primary care physician in due course and she indicated that her blood pressure has not been high previously. Sternal wound essentially healed. Examination was otherwise unremarkable. Results/Data Chest x-ray was mostly clear and her EKG demonstrated sinus rhythm at a rate of 60 bpm. Signatures Electronically signed by : Albin Pierce MD; Feb 27 2022 2:11PM EST (Author) [facility]27[facility]2022 XR Chest 2 Views Please click on the link to view the study images [facility] [address] [place] Work Phone: TH CHEST 2 VIEW PA AND LATon 02-27-2022 TH CHEST 2 VIEW PA AND LAT Patient Name: CELY BARBOSA STUDY: TH CHEST 2 VIEW PA AND LAT; 02/27/2022 11:28 am INDICATION: P/OP Z95.1: S/P CABG x 3. COMPARISON: Chest radiograph 01/24/2022 ACCESSION NUMBER(S): [id number] ORDERING CLINICIAN: ALBIN PIERCE FINDINGS: PA and lateral radiographs of the chest were provided. Additional PA dual energy images were also provided. Status post median sternotomy with similar appearance of cerclage wires. Postsurgical changes are noted of the cardiomediastinum. Epicardial leads are present. CARDIOMEDIASTINAL SILHOUETTE: Cardiomediastinal silhouette is stable in size and configuration. LUNGS: There is mild volume loss involving the left lung without definite evidence of a pleural effusion. Linear basilar opacities favor subsegmental atelectasis. Nonspecific cavitary appearing lesion is noted at the left lung base. No pneumothorax. ABDOMEN: No remarkable upper abdominal findings. BONES: No acute osseous changes. IMPRESSION: 1. Bibasilar atelectasis, left greater than right with questionable cavitary/cystic lesions within the left lung base. Correlate with recent pneumonia involving the left lung. I personally reviewed the images/study and I agree with the resident findings as stated. This study was interpreted at [facility], [place], [place]. Electronically signed by: Keagan ROSARIO MD [facility] Tobacco Screening.on 022 Fall risk assessment a) No falls within the last year [facility] [address] [place] Work Phone: Tobacco use status [facility] b) No [facility] [address] [place] Work Phone: Creatinine and Glomerular fi ltration rate.predicted panel (S/P/Bld)Ordered By: Kvng Romo on 02-24-2022 Creatinine [Mass/Vol] 0.81 mg/dL 0.44-1.03 [facility] Estimated glomerular filtrat ion rate (GFR) non- AmericanOrdered By: Kvng Romo on 02-24-2022 GFR/1.73 sq M.predicted among non-blacks MDRD (S/P/Bld) [Vol rate/Area] > 60 mL/Min [facility] No Panel InformationOrdered By: Kvng Romo on 02-24-2022 Estimated GFR () > 60 mL/Min [facility] Comment on above: GFR estimated refere nce range: According to KDOQI guidelines, <60 ml/min/1.73m2 is sufficient to diagnose a patient with chronic kidney disease. Pharmacy Creatinine Clearance (Chem N/A [facility] Serum or plasma anion gap de terminationOrdered By: Kvng Romo on 02-24-2022 Anion gap [Moles/Vol] 15.0 mmol/L 6.0-15.0 [facility] Serum or plasma calcium rashmi urement (mass/volume)Ordered By: Kvng Romo on 02-24-2022 Calcium [Mass/Vol] 9.1 mg/dL 8.2-10.2 [facility] Serum or plasma chloride reece surement (moles/volume)Ordered By: Kvng Romo on 02-24-2022 Chloride [Moles/Vol] 96 mmol/L 95-114 [facility] Serum or plasma glucose rashmi urement (mass/volume)Ordered By: Kvng Romo on 02-24-2022 Glucose [Mass/Vol] 77 mg/dL 70-100 [facility] Comment on above: ADA recommended refe rence rangeRandom Glucose Reference Range is dependent on time and content of last meal. Glucose of more than 200 mg/dL in a nonstressed, ambulatory subject supports the diagnosis of Diabetes Mellitus. Serum or plasma potassium me asurement (moles/volume)Ordered By: Kvng Romo on 02-24-2022 Potassium [Moles/Vol] 3.9 mmol/L 3.5-5.1 [facility] Serum or plasma sodium measu rement (moles/volume)Ordered By: Kvng Romo on 02-24-2022 Sodium [Moles/Vol] 129 mmol/L 136-146 [facility] Serum or plasma total carbon dioxide measurement (moles/volume)Ordered By: Kvng Romo on 02-24-2022 CO2 [Moles/Vol] 21.9 mmol/L 22.0-30.0 [facility] Serum or plasma urea nitroge n measurement (mass/volume)Ordered By: Kvng Romo on 02-24-2022 Urea nitrogen [Mass/Vol] 10 mg/dL 9-23 [facility] Initial Visit (Nephrology)on 02-17-2022 Initial Visit (Nephrology) Diagnoses/Problems Benign essential hypertension (401.1) (I10) S/P CABG x 3 (V45.81) (Z95.1) 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 We discussed low sodium and not something that we should really tolerate She was on sodium bicarbonate her bicarb levels in her blood are normal and her potassium is actually low currently She was limiting her potassium intake I have discussed to be able to liberalize her potassium intake Also we will start her on salt tabs and Lasix and stop the sodium bicarbonate. We will recheck her labs in a month If her sodium level has normalized at that time then we will talk about backing off medications and see what is the lowest that we will be able to get at She can use salt with her meals Continue fluid restriction as she is on We will have to watch volume status closely however it does not appear that volume is an issue for her She will call if she has issues or needs Provider Impressions Hyponatremia with underlying SIADH with urine osmole 400 and urine sodium of 45 History of coronary artery disease with recent CABG Hypothyroidism Metabolic acidosis on sodium bicarbonate Hypertension Dyslipidemia Chief Complaint NPV- Hospital follow up/ Hyponatremia Labs 02/11/2022 History of Present IllnessAileen is here for a new patient visit She is here for follow-up after being admitted at [facility] [place] [facility] after a mechanical fall and she underwent a coronary artery bypass graft surgery. She was seen also secondary to hyponatremia she has chronic hyponatremia per records with baseline sodium per the records of 04 12- She was on urea packets, Lasix as needed and a sodium bicarbonate when she was in the hospital in [place] In December a urine osmolality was measured at 400 and a urine sodium was measured at 45 pretty consistent with SIADH. Her most recent metabolic panel was scanned in on February 11 Sodium is 133 potassium 3.2 bicarb is 25 BUN is 13 with a creatinine of 0.77 albumin is just on the low side at 3.2 Medications currently include aspirin, atorvastatin, Plavix, levothyroxine, lisinopril, sodium bicarbonate and metoprolol. She is doing pretty well. She has no CP. She has itching. She livis in [place]. She She is limiting her fluid intake with 6 cups per day. Review of Systems Constitutional: no fever, no chills, no recent weight gain and no recent weight loss. Eyes: no blurred vision and no diplopia. ENT: no hearing loss, no earache, no sore throat, no swollen glands in the neck and no nasal discharge. Cardiovascular: no chest pain, no palpitations and no lower extremity edema. Respiratory: no shortness of breath, no chronic cough and no shortness of breath during exertion. Gastrointestinal: no abdominal pain, no constipation, no heartburn, no vomiting, no bloody stools and no change in bowel movements. Genitourinary: no dysuria and no hematuria. Musculoskeletal: no arthralgias and no myalgias. Skin: no rashes and no skin lesions. Neurological: no headaches and no dizziness. Psychiatric: no confusion, no depression and no anxiety. Endocrine: no heat intolerance, no cold intolerance, appetite not increased, no thyroid disorder, no increased urinary frequency and no dry skin. Hematologic/Lymphatic: does not bleed easily and does not bruise easily. All other systems have been reviewed and are negative for complaint. Active Problems Benign essential hypertension (401.1) (I10) Bilateral carotid artery disease, unspecified type (447.9) (I77.9) Body mass index (BMI) of 21.0 to 21.9 in adult (V85.1) (Z68.21) CAD (coronary artery disease) (414.00) (I25.10) Former smoker (V15.82) (Z87.891) 1 pack daily- Quit in S/P CABG x 3 (V45.81) (Z95.1) Surgical History History of Arm surgery History of Cholecystectomy Denied: History of Complete colonoscopy History of Coronary artery bypass graft Family History Family history of Status post heart valve replacement Family history of myocardial infarction (V17.3) (Z82.49) Family history of diabetes mellitus (V18.0) (Z83.3) Family history of myocardial infarction (V17.3) (Z82.49) History of PTCA Social History Former smoker (V15.82) (Z87.891) 1 pack daily- Quit in No alcohol use No caffeine use No illicit drug use Allergies No Known Drug Allergies Recorded By: Yanira Lazaro; 02/13/2022 11:12:05 AM Current Meds Medication NameInstruction Aspirin 81 MG Oral Tablet Delayed ReleaseTAKE 1 TABLET DAILY. Atorvastatin Calcium 80 MG Oral TabletTAKE 1 TABLET BY MOUTH DA (more content not included)... Normal [facility] Tobacco Screening.on 022 Fall risk assessment a) No falls within the last year [facility] Work Phone: Tobacco use status [facility] b) No [facility] Work Phone: Office Visit (Cardiology)on 02-13-2022 Follow-up visit Diagnoses/Problems Assessed S/P CABG x 3 (V45.81) (Z95.1) CAD (coronary artery disease) (414.00) (I25.10) Body mass index (BMI) of 21.0 to 21.9 in adult (V85.1) (Z68.21) Former smoker (V15.82) (Z87.891) 1 pack daily- Quit in Benign essential hypertension (401.1) (I10) Bilateral carotid artery disease, unspecified type (447.9) (I77.9) Orders Benign essential hypertension, Body mass index (BMI) of 21.0 to 21.9 in adult, CAD (coronary artery disease), S/P CABG x 3 IO EKG Electrocardiogram- 12 Lead; Status:Complete; Done: 13Feb2022 CAD (coronary artery disease), S/P CABG x 3 Renew: Aspirin 81 MG Oral Tablet Delayed Release; TAKE 1 TABLET DAILY Renew: Atorvastatin Calcium 80 MG Oral Tablet; TAKE 1 TABLET BY MOUTH DAILY SocHx: Former smoker Tobacco Use Screening; Status:Complete; Done: 13Feb2022 Patient Instructions Please bring all medicines, vitamins, and herbal supplements with you when you come to the office. Prescriptions will not be filled unless you are compliant with your follow up appointments or have a follow up appointment scheduled as per instruction of your physician. Refills should be requested at the time of your visit. Patient provided Falls Prevention education sheet. Dr. Alejandro and Dr. Zhao names provided to pt for local vascular Follow up in 4 months Chief Complaint CELY BARBOSA is being seen for Dr. Albin Pierce- Post CABG, HF, HTN. History of Present Illness 81 yo female here to establish care. Recently underwent 3vCABG (PABLO-LAD, SVG-OM, SVG-diagonal) after NSTEMI. She has done very well post-operatively. She did have some hyponatremia during her hospitalization for which nephrology was consulted and for which she will be seeing in a couple weeks. Most recent Na 133+. She is wearing compression stockings and has noticed an improvement in R leg swelling s/p vein harvesting. No chest pain, SOB, palpitations. Surgical History Problems History of Arm surgery History of Cholecystectomy Denied: History of Complete colonoscopy History of Coronary artery bypass graft Current Meds Medication NameInstruction Aspirin 81 MG Oral Tablet Delayed ReleaseTAKE 1 TABLET DAILY. Atorvastatin Calcium 80 MG Oral TabletTAKE 1 TABLET BY MOUTH DAILY Clopidogrel Bisulfate 75 MG Oral TabletTAKE 1 TABLET BY MOUTH DAILY Docusate Sodium 100 MG Oral CapsuleTAKE 1 CAPSULE BY MOUTH DAILY NEEDED IFerex 150 150 MG Oral CapsuleTAKE 1 CAPSULE BY MOUTH DAILY Levothyroxine Sodium 100 MCG Oral TabletTake 1 tablet daily Lisinopril 2.5 MG Oral TabletTAKE 1 TABLET BY MOUTH DAILY Metoprolol Succinate ER 50 MG Oral Tablet Extended Release 24 HourTAKE 1.5 TABLET Daily Sodium Bicarbonate 650 MG Oral TabletTAKE 1 TABLET BY MOUTH DAILY Allergies Medication No Known Drug Allergies Recorded By: Yanira Lazaro; 02/13/2022 11:12:05 AM Social History Problems Former smoker (V15.82) (Z87.891) 1 pack daily- Quit in No alcohol use No caffeine use No illicit drug use Review of Systems Constitutional: not feeling tired. Cardiovascular: no intermittent leg claudication and as noted in HPI. Respiratory: shortness of breath, but no cough. Gastrointestinal: no change in bowel habits and no blood in stools. Integumentary: no skin rashes. Neurological: no seizures and no frequent falls. All other systems have been reviewed and are negative for complaint. Vitals Vital Signs Printed in Appendix #1 below. EKG done in office today Physical Exam Constitutional: alert and in no acute distress. Neck: neck is supple, symmetric, trachea midline, no masses and no thyromegaly . Pulmonary: no increased work of breathing or signs of respiratory distress and lungs clear to auscultation. Cardiovascular: carotid pulses 2+ bilaterally with no bruit , JVP was normal, no thrills , regular rhythm, normal S1 and S2, no murmurs , pedal pulses 2+ bilaterally and no edema . Abdomen: abdomen non-tender, no masses and no hepatomegaly . Skin: skin warm and dry, normal skin turgor . Psychiatric judgment and insight is normal and oriented to person, place and time . Impressions 1. Coronary artery disease - S/p CABG x 3 - On DAPT with ASA and plavix, on lipitor - Has f/u with CTS next week 2. HLD - On statin 3. HTN - On toprol-xL and lisinopril - Patient's BP is high in clinic today but she states home health checks her BPs regularly and they are low to normal. Also had low BPs while in hospital. BP at PCPs office recently was also normal - I have asked patient to continue to monitor home BPs 4. Carotid artery disease - Already scheduled to see vascular surgery for this RTC in 3 months. Signatures Electronically signed by : Miri Hill MD; Feb 13 2022 12:09PM EST (Author) Appendix #1 Vital Signs Patient: CELY BARBOSA; : 1940; Recorded: [id number] 11:46AMRecorded: [id number] 11:20AMRecorded: [id number] 11:15AM [id number], LUE, Si (more content not included)... Normal [employer] Tobacco Screening.on 022 Adult depression screening assessment No [facility] [employer] 250 DO Work Phone: Fall risk assessment b) One or more fall s in the last year [facility] [employer] 250 DO Work Phone: Tobacco use status CPHS b) No [facility] kori 250 DO Work Phone: CBC AUTO DIFFon 02-10-2022 BASO # 0.1 103/ul Normal 0.0-0.1 [facility] Comment on above: Performed By: #### C MADM, BNP, CMP #### [facility] [address] [address] [address] Marco Greer Basophils/100 WBC (Bld) 1.1 % Normal 0.2-2.0 [facility] Comment on above: Performed By: #### C MADM, BNP, CMP #### [facility] [address] [address] [address] Marco Greer EO # 0.5 103/ul Normal 0.0-0.7 [facility] Comment on above: Performed By: #### C MADM, BNP, CMP #### [facility] [address] [address] [address] Marco Greer Eosinophils/100 WBC (Bld) 6.0 % Normal 0.9-7.0 [facility] Comment on above: Performed By: #### C MADM, BNP, CMP #### [facility] [address] [place] [address] Dr. Marco Greer Erythrocyte distribution width (RBC) [Ratio] 15.2 % Critically high 11.0-15.0 [facility] Comment on above: Performed By: #### C MADM, BNP, CMP #### [facility] [address] [place] [address] Dr. Marco Greer Hematocrit (Bld) [Volume fraction] 39.6 % Normal 36.0-48.0 [facility] Comment on above: Performed By: #### C MADM, BNP, CMP #### [facility] [address] [place] [address] Dr. Marco Greer Hemoglobin (Bld) [Mass/Vol] 12.4 g/dL Normal 12.0-16.0 [facility] Comment on above: Performed By: #### C MADM, BNP, CMP #### [facility] [address] [place] [address] Dr. Marco Greer IG # 0.02 10e3/ul Normal 0.00-0.03 [facility] Comment on above: Performed By: #### C MADM, BNP, CMP #### [facility] [address] [place] [address] Dr. Marco Greer IG % 0.3 % Normal 0.0-0.5 [facility] Comment on above: Performed By: #### C MADM, BNP, CMP #### [facility] [address] [place] [address] Dr. Marco Greer LYMPH # 1.2 103/ul Normal 1.2-3.8 [facility] Comment on above: Performed By: #### C MADM, BNP, CMP #### [facility] [address] [place] [address] Dr. Marco Greer Lymphocytes/100 WBC (Bld) 15.5 % Critically low 20.5-60.0 [facility] Comment on above: Performed By: #### C MADM, BNP, CMP #### [facility] [address] [place] [address] Dr. Marco Greer MANUAL DIFF REQ NO Normal [facility] Comment on above: Performed By: #### C MADM, BNP, CMP #### [facility] [address] [place] [address] Dr. Marco Greer MCH (RBC) [Entitic mass] 28.1 pg Normal 26.7-34.0 [facility] Comment on above: Performed By: #### C MADM, BNP, CMP #### [facility] [address] [place] [address] Dr. Marco Greer MCHC (RBC) [Mass/Vol] 31.3 g/dL Normal 29.9-35.2 [facility] Comment on above: Performed By: #### C MADM, BNP, CMP #### [facility] [address] [place] [address] Dr. Marco Greer MCV (RBC) [Entitic vol] 89.6 fL Normal 81.0-99.0 [facility] Comment on above: Performed By: #### C MADM, BNP, CMP #### [facility] [address] [place] [address] Dr. Marco Greer MONO # 0.7 103/ul Normal 0.3-0.8 [facility] Comment on above: Performed By: #### C MADM, BNP, CMP #### [facility] [address] [place] [address] Dr. Marco Greer Monocytes/100 WBC (Bld) 8.9 % Normal 1.7-12.0 [facility] Comment on above: Performed By: #### C MADM, BNP, CMP #### [facility] [address] [place] [address] Dr. Marco Greer NEUT # 5.4 103/ul Normal 1.4-6.5 [facility] Comment on above: Performed By: #### C MADM, BNP, CMP #### [facility] [address] [place] [address] Dr. Marco Greer Neutrophils/100 WBC (Bld) 68.2 % Normal 43.0-75.0 [facility] Comment on above: Performed By: #### C MADM, BNP, CMP #### [facility] [address] [place] [address] Dr. Marco Greer Platelet mean volume (Bld) [Entitic vol] 10.1 fL Normal 9.5-13.5 [facility] Comment on above: Performed By: #### C MADM, BNP, CMP #### [facility] [address] [place] [address] Dr. Marco Greer PLT 518 103/ul Critically high 150-450 [facility] Comment on above: Performed By: #### C MADM, BNP, CMP #### [facility] [address] [place] [address] Dr. Marco Greer RBC 4.42 106/ul Normal 4.20-5.40 [facility] Comment on above: Performed By: #### C MADM, BNP, CMP #### [facility] [address] [place] [address] Dr. Marco Greer WBC 7.9 103/ul Normal 4.0-11.0 [facility] Comment on above: Performed By: #### C MADM, BNP, CMP #### [facility] [address] [place] [address] Dr. Marco Grere CRPon 02-10-2022 CRP 1.6 mg/dL Critically high <=1.0 [facility] Comment on above: Performed By: #### C RP, LIVER, TSH, BMP, FT3 #### [facility] [address] [place] [address] Dr. Marco Greer FREE T3on 02-10-2022 FREE T3 1.99 pg/mlL Critically low 2.18-3.98 [facility] Comment on above: Performed By: #### C RP, LIVER, TSH, BMP, FT3 #### [facility] [address] [place] [address] Dr. Marco Greer FREE T4on 02-10-2022 Free T4 [Mass/Vol] 1.43 ng/dL Normal 0.76-1.46 [facility] Comment on above: Performed By: #### C MP #### [facility] [address] [place] [address] Dr. Marco Greer LIVER PROFILEon 02-10-2022 Albumin [Mass/Vol] 3.2 g/dL Critically low 3.4-5.0 [facility] Comment on above: Performed By: #### C RP, LIVER, TSH, BMP, FT3 #### [facility] [address] [place] [address] Dr. Marco Greer Albumin/Globulin [Mass ratio] 0.7 {ratio} Normal [facility] Comment on above: Performed By: #### C RP, LIVER, TSH, BMP, FT3 #### [facility] [address] [place] [address] Dr. Marco Greer ALP [Catalytic activity/Vol] 109 U/L Normal 46-116 [facility] Comment on above: Performed By: #### C RP, LIVER, TSH, BMP, FT3 #### [facility] [address] [place] [address] Dr. Marco Greer ALT [Catalytic activity/Vol] 22 U/L Normal 14-59 [facility] Comment on above: Performed By: #### C RP, LIVER, TSH, BMP, FT3 #### [facility] [address] [place] [address] Dr. Marco Greer AST [Catalytic activity/Vol] 24 U/L Normal 15-37 [facility] Comment on above: Performed By: #### C RP, LIVER, TSH, BMP, FT3 #### [facility] [address] [place] [address] Dr. Marco Greer BILI, CONJUGATED 0.2 mg/dL Normal 0.0-0.2 [facility] Comment on above: Performed By: #### C RP, LIVER, TSH, BMP, FT3 #### [facility] [address] [place] [address] Dr. Marco Greer Bilirubin [Mass/Vol] 0.5 mg/dL Normal 0.2-1.0 [facility] Comment on above: Performed By: #### C RP, LIVER, TSH, BMP, FT3 #### [facility] [address] [place] [address] Dr. Marco Greer Globulin (S) [Mass/Vol] 4.3 g/dL Normal [facility] Comment on above: Performed By: #### C RP, LIVER, TSH, BMP, FT3 #### [facility] [address] [place] [address] Dr. Marco Greer Protein [Mass/Vol] 7.5 g/dL Normal 6.4-8.2 [facility] Comment on above: Performed By: #### C RP, LIVER, TSH, BMP, FT3 #### [facility] [address] [place] [address] Dr. Marco Greer PROF CHEM 8 (BAS METB)on Anion gap [Moles/Vol] 13.8 mmol/L Normal [facility] Comment on above: Performed By: #### C RP, LIVER, TSH, BMP, FT3 #### [facility] [address] [place] [address] Dr. Marco Greer Calcium [Mass/Vol] 9.3 mg/dL Normal 8.5-10.1 [facility] Comment on above: Performed By: #### C RP, LIVER, TSH, BMP, FT3 #### [facility] [address] [place] [address] Dr. Marco Greer Chloride [Moles/Vol] 97 mmol/L Critically low 98-107 [facility] Comment on above: Performed By: #### C RP, LIVER, TSH, BMP, FT3 #### [facility] [address] [place] [address] Dr. Marco Greer CO2 [Moles/Vol] 25.4 mmol/L Normal 21.0-32.0 [facility] Comment on above: Performed By: #### C RP, LIVER, TSH, BMP, FT3 #### [facility] [address] [place] [address] Dr. Marco Greer Creatinine [Mass/Vol] 0.77 mg/dL Normal 0.55-1.02 [facility] Comment on above: Performed By: #### C RP, LIVER, TSH, BMP, FT3 #### [facility] [address] [place] [address] Dr. Marco Greer EGFR-AF CITIZ[place] >60 Normal >=60 [facility] Comment on above: Performed By: #### C RP, LIVER, TSH, BMP, FT3 #### [facility] [address] [place] [address] Dr. Marco Greer EGFR-NON AF CITIZEN [place] >60 Normal >=60 [facility] Comment on above: Performed By: #### C RP, LIVER, TSH, BMP, FT3 #### [facility] [address] [place] [address] Dr. Marco Greer Glucose [Mass/Vol] 78 mg/dL Normal 74-106 [facility] Comment on above: Performed By: #### C RP, LIVER, TSH, BMP, FT3 #### [facility] [address] [place] [address] Dr. Marco Greer Potassium [Moles/Vol] 3.2 mmol/L Critically low 3.5-5.1 [facility] Comment on above: Performed By: #### C RP, LIVER, TSH, BMP, FT3 #### [facility] [address] [place] [address] Dr. Marco Greer Sodium [Moles/Vol] 133 mmol/L Critically low 136-145 [facility] Comment on above: Performed By: #### C RP, LIVER, TSH, BMP, FT3 #### [facility] [address] [place] [address] Dr. Marco Greer Urea nitrogen [Mass/Vol] 13.0 mg/dL Normal 7.0-18.0 [facility] Comment on above: Performed By: #### C RP, LIVER, TSH, BMP, FT3 #### [facility] [address] [place] [address] Dr. Marco Greer Urea nitrogen/Creatinine [Mass ratio] 16.9 mg/mg Normal [facility] Comment on above: Performed By: #### C RP, LIVER, TSH, BMP, FT3 #### [facility] [address] [place] [address] Dr. Marco Greer SED RATE WESTERGRENon 2021 SED RATE 83 mm/hr Critically high <=30 [facility] Comment on above: Performed By: #### C MADM, BNP, CMP #### [facility] [address] [address] [address] Marco Greer TSHon 02-10-2022 TSH 4.983 uIU/mL Critically high 0.358-3.74 0 [facility] Comment on above: Performed By: #### C RP, LIVER, TSH, BMP, FT3 #### [facility] [address] [address] [address] Marco Greer Laboratory - Hematology and Cell countson 01-28-2022 Erythrocyte distribution width (RBC) [Ratio] 15.9 % above high threshold See Below [facility] kori [employer] DO Work Phone: Comment on above: Reference Range: 11. 5 - 14.5 Hematocrit (Bld) [Volume fraction] 29.8 % below low threshold See Below [facility] k[employer] DO Work Phone: Comment on above: Reference Range: 36. 0 - 46.0 Hemoglobin (Bld) [Mass/Vol] 9.8 g/dL below low threshold See Below [facility] [employer] [address] DO Work Phone: Comment on above: Reference Range: 12. 0 - 16.0 MCHC (RBC) [Mass/Vol] 32.9 g/dL See Below [address] [address] DO Work Phone: Comment on above: Reference Range: 32. 0 - 36.0 MCV (RBC) [Entitic vol] 92 fL 80 - [address] [address] DO Work Phone: Platelets (Bld) [#/Vol] 435 10*3/uL 150 - 450 [address] [address] DO Work Phone: RBC (Bld) [#/Vol] 3.25 {x10E12/L} below low threshold See Below [facility] 250 DO Work Phone: Comment on above: Reference Range: 4.0 0 - 5.20 WBC (Bld) [#/Vol] 9.2 10*3/uL 4.4 - 11.3 [facility] [employer] 250 DO Work Phone: Magnesium, Serumon 2 Magnesium [Mass/Vol] 2.02 mg/dL See Below [facility] [employer] 250 DO Work Phone: Comment on above: Reference Range: 1.6 0 - 2.40 No Panel Informationon 01-28 0.0 {/100_WBC} 0.0-0.[address] [facility] [employer] 250 DO Work Phone: Renal Function Panelon 01-28 Albumin BCP dye [Mass/Vol] 2.8 g/dL below low threshold 3.4 - 5.[address] [facility] [employer] 250 DO Work Phone: Anion gap [Moles/Vol] 16 mmol/L 10 - 20 [facility] [employer] DO Work Phone: Calcium [Mass/Vol] 8.5 mg/dL below low threshold 8.6 - 10.[address] [facility] [employer] 250 DO Work Phone: Chloride [Moles/Vol] 99 mmol/L 98 - 107 [facility] [employer] 250 DO Work Phone: CO2 [Moles/Vol] 23 mmol/L 21 - [address] [facility] [employer] 250 DO Work Phone: Creatinine [Mass/Vol] 0.71 mg/dL See Below [facility] [employer] 250 DO Work Phone: Comment on above: Reference Range: 0.5 0 - 1.05 Glucose [Mass/Vol] 71 mg/dL below low threshold 74 - [address] [facility] [employer] 250 DO Work Phone: Phosphate [Mass/Vol] 3.8 mg/dL 2.5 - 4.9 [facility] [employer] kori MAYKOR DO Work Phone: Comment on above: The performance andra acteristics of phosphorus testing in heparinized plasma have been validated by the individual laboratory site where testing is performed. Testing on heparinized plasma is not approved by the FDA; however, such approval is not necessary. Potassium [Moles/Vol] 4.9 mmol/L 3.5 - 5.3 [facility] [employer] DO Work Phone: Sodium [Moles/Vol] 133 mmol/L below low threshold 136 - 145 [address] [address] DO Work Phone: Urea nitrogen [Mass/Vol] 48 mg/dL above high threshold 6 - 23 [address] [address] DO Work Phone: Renal Function Panel 86 {mL/min/1.73m2} >90 [address] [address] DO Work Phone: Comment on above: CALCULATIONS OF MOISES MATED GFR ARE PERFORMED USING THE 2020 CKD-EPI STUDY REFIT EQUATION WITHOUT THE RACE VARIABLE FOR THE IDMS-TRACEABLE CREATININE METHODS.https://jasn.asnjournals.org/content//A SN.[email or web address] Coronavirus 2019 RNA by PCR, Screening Asymptomticon 01-27-2022 Coronavirus 2019 RNA by PCR, Screening Asymptomtic Not detected Normal See Below [facility] kori [employer]KOR DO Work Phone: Comment on above: SOURCE: Nasal, Nasop haryngealReference Range: Not Detected.This assay is designed to detect the ORF1ab and/or S genes of SARS-CoV-2 via nucleic acid amplification. A Not Detected result does not preclude 2019-nCoV infection since the adequacy of sample collection and/or low viral burden may result in presence of viral nucleic acids below the clinical sensitivity of this test method. Fact sheet for providers: www.fda.gov/media/298425/downloadFact sheet for patients: www.fda.gov/media/017537/downloadThis test has received FDA Emergency Use Authorization (EUA) and has been verified by [facility] ([facility]). This test is only authorized for the duration of time that circumstances exist to justify the authorization of the emergency use of in vitro diagnostic tests for the detection of SARS-CoV-2 virus and/or diagnosis of COVID-19 infection under section 564(b)(1) of the Act, 21 U.S.C. 360bbb-3(b)(1), unless the authorization is terminated or revoked sooner. [facility] is certified under CLIA-88 as qualified to perform high complexity testing. Testing is performed in the [facility] laboratories located at [address] [place] [address]. Laboratory - Hematology and Cell countson 01-27-2022 Erythrocyte distribution width (RBC) [Ratio] 15.6 % above high threshold See Below [facility] [employer] DO Work Phone: Comment on above: Reference Range: 11. 5 - 14.5 Hematocrit (Bld) [Volume fraction] 28.3 % below low threshold See Below [facility] [employer] DO Work Phone: Comment on above: Reference Range: 36. 0 - 46.0 Hemoglobin (Bld) [Mass/Vol] 9.5 g/dL below low threshold See Below [facility] [employer] DO Work Phone: Comment on above: Reference Range: 12. 0 - 16.0 MCHC (RBC) [Mass/Vol] 33.6 g/dL See Below [facility] [employer] DO Work Phone: Comment on above: Reference Range: 32. 0 - 36.0 MCV (RBC) [Entitic vol] 90 fL 80 - [address] [facility] [employer] DO Work Phone: Platelets (Bld) [#/Vol] 462 10*3/uL above high threshold 150 - [address] [facility] [employer] DO Work Phone: RBC (Bld) [#/Vol] 3.16 {x10E12/L} below low threshold See Below [facility] [employer] 250 DO Work Phone: Comment on above: Reference Range: 4.0 0 - 5.20 WBC (Bld) [#/Vol] 10.4 10*3/uL 4.4 - 11.3 MP-No [facility] [employer] 250 DO Work Phone: Magnesium, Serumon 2 Magnesium [Mass/Vol] 1.99 mg/dL See Below -[facility] [employer]ori 250 DO Work Phone: Comment on above: Reference Range: 1.6 0 - 2.40 No Panel Informationon 01-27 0.0 {/100_WBC} 0.0-0.0 [facility] [employer] DO Work Phone: Renal Function Panelon 01-27 Albumin BCP dye [Mass/Vol] 2.7 g/dL below low threshold 3.4 - 5.[address] [facility] [employer]ori 250 DO Work Phone: Anion gap [Moles/Vol] 12 mmol/L 10 - 20 [facility] kori 250 DO Work Phone: Calcium [Mass/Vol] 8.3 mg/dL below low threshold 8.6 - 10.6 [facility] kori 250 DO Work Phone: Chloride [Moles/Vol] 95 mmol/L below low threshold 98 - 107 [facility] kori 250 DO Work Phone: CO2 [Moles/Vol] 26 mmol/L 21 - 32 [facility] 250 DO Work Phone: Creatinine [Mass/Vol] 0.73 mg/dL See Below [facility] [employer]ori 250 DO Work Phone: Comment on above: Reference Range: 0.5 0 - 1.05 Glucose [Mass/Vol] 77 mg/dL 74 - 99 [facility] [employer] 250 DO Work Phone: Phosphate [Mass/Vol] 4.2 mg/dL 2.5 - 4.9 [facility] [employer] 250 DO Work Phone: Comment on above: The performance andra acteristics of phosphorus testing in heparinized plasma have been validated by the individual laboratory site where testing is performed. Testing on heparinized plasma is not approved by the FDA; however, such approval is not necessary. Potassium [Moles/Vol] 4.9 mmol/L 3.5 - 5.3 [facility] kori [employer]KOR DO Work Phone: Sodium [Moles/Vol] 128 mmol/L below low threshold 136 - 145 [address] [address] DO Work Phone: Urea nitrogen [Mass/Vol] 48 mg/dL above high threshold 6 - 23 [facility] [employer] DO Work Phone: Renal Function Panel 83 {mL/min/1.73m2} >90 [facility] [employer] DO Work Phone: Comment on above: CALCULATIONS OF MOISES MATED GFR ARE PERFORMED USING THE 2020 CKD-EPI STUDY REFIT EQUATION WITHOUT THE RACE VARIABLE FOR THE IDMS-TRACEABLE CREATININE METHODS.https://jasn.asnjournals.org/content//A .[id number] Laboratory - Hematology and Cell countson 01-26-2022 Erythrocyte distribution width (RBC) [Ratio] 15.5 % above high threshold See Below [facility] [employer] DO Work Phone: Comment on above: Reference Range: 11. 5 - 14.5 Hematocrit (Bld) [Volume fraction] 30.3 % below low threshold See Below [facility] [employer] DO Work Phone: Comment on above: Reference Range: 36. 0 - 46.0 Hemoglobin (Bld) [Mass/Vol] 10.0 g/dL below low threshold See Below [facility] [employer] 250 DO Work Phone: Comment on above: Reference Range: 12. 0 - 16.0 MCHC (RBC) [Mass/Vol] 33.0 g/dL See Below [facility] [employer]ori 250 DO Work Phone: Comment on above: Reference Range: 32. 0 - 36.0 MCV (RBC) [Entitic vol] 90 fL 80 - 100 [facility] [employer] DO Work Phone: Platelets (Bld) [#/Vol] 454 10*3/uL above high threshold 150 - 450 [facility] kori MAYKOR DO Work Phone: RBC (Bld) [#/Vol] 3.36 {x10E12/L} below low threshold See Below [facility] [employer] k[employer] MAYKOR DO Work Phone: Comment on above: Reference Range: 4.0 0 - 5.20 WBC (Bld) [#/Vol] 12.6 10*3/uL above high threshold 4.4 - 11.[address] [facility] kori MAYKOR DO Work Phone: Magnesium, Serumon 2 Magnesium [Mass/Vol] 2.00 mg/dL See Below [facility] [employer]ori 250 DO Work Phone: Comment on above: Reference Range: 1.6 0 - 2.40 No Panel Informationon 01-26 0.0 {/100_WBC} 0.0-0.0 [facility] kori MAYKOR DO Work Phone: Renal Function Panelon 01-26 Albumin BCP dye [Mass/Vol] 3.1 g/dL below low threshold 3.4 - 5.0 [facility] Technical CorporationEss[facility] Health kori MAYKOR DO Work Phone: Anion gap [Moles/Vol] 16 mmol/L 10 - 20 [facility]Gu[facility] and Technical CorporationAst[facility] MAYKOR DO Work Phone: Calcium [Mass/Vol] 8.7 mg/dL 8.6 - 10.6 [facility] kori 250 DO Work Phone: Chloride [Moles/Vol] 92 mmol/L below low threshold 98 - 107 [facility] 250 DO Work Phone: CO2 [Moles/Vol] 24 mmol/L 21 - 32 [place] [address] DO Work Phone: Creatinine [Mass/Vol] 0.82 mg/dL See Below [place] [address] DO Work Phone: Comment on above: Reference Range: 0.5 0 - 1.05 Glucose [Mass/Vol] 113 mg/dL above high threshold 74 - 99 [place] [address] DO Work Phone: Phosphate [Mass/Vol] 4.2 mg/dL 2.5 - 4.9 [facility] kori 250 DO Work Phone: Comment on above: The performance andra acteristics of phosphorus testing in heparinized plasma have been validated by the individual laboratory site where testing is performed. Testing on heparinized plasma is not approved by the FDA; however, such approval is not necessary. Potassium [Moles/Vol] 4.3 mmol/L 3.5 - 5.3 [place] [address] DO Work Phone: Sodium [Moles/Vol] 128 mmol/L below low threshold 136 - 145 [facility] MAYKOR DO Work Phone: Urea nitrogen [Mass/Vol] 46 mg/dL above high threshold 6 - 23 [facility] MAYKOR DO Work Phone: Renal Function Panel 72 {mL/min/1.73m2} >90 [place] [address] DO Work Phone: Comment on above: CALCULATIONS OF MOISES MATED GFR ARE PERFORMED USING THE 2020 CKD-EPI STUDY REFIT EQUATION WITHOUT THE RACE VARIABLE FOR THE IDMS-TRACEABLE CREATININE METHODS.https://jasn.asnjournals.org/content//A SN.[id number] Albumin BCP dye [Mass/Vol] 2.9 g/dL below low threshold 3.4 - 5.0 [facility]imercy health DO Work Phone: Anion gap [Moles/Vol] 14 mmol/L 10 - 20 [place] [address] DO Work Phone: Calcium [Mass/Vol] 8.4 mg/dL below low threshold 8.6 - 10.6 [place] [address] DO Work Phone: Chloride [Moles/Vol] 92 mmol/L below low threshold 98 - 107 [place] [address] DO Work Phone: CO2 [Moles/Vol] 25 mmol/L 21 - 32 [place] [address] DO Work Phone: Creatinine [Mass/Vol] 0.73 mg/dL See Below [place] [address] DO Work Phone: Comment on above: Reference Range: 0.5 0 - 1.05 Glucose [Mass/Vol] 79 mg/dL 74 - 99 [facility] kori MAYKOR DO Work Phone: Phosphate [Mass/Vol] 4.4 mg/dL 2.5 - 4.9 [facility] kori MAYKOR DO Work Phone: Comment on above: The performance andra acteristics of phosphorus testing in heparinized plasma have been validated by the individual laboratory site where testing is performed. Testing on heparinized plasma is not approved by the FDA; however, such approval is not necessary. Potassium [Moles/Vol] 5.2 mmol/L 3.5 - 5.3 [place] [address] DO Work Phone: Sodium [Moles/Vol] 126 mmol/L below low threshold 136 - 145 [place] [address] DO Work Phone: Urea nitrogen [Mass/Vol] 40 mg/dL above high threshold 6 - [address] [facility] [employer] Surikate DO Work Phone: Renal Function Panel 83 {mL/min/1.73m2} >[address] [facility] [employer] Surikate DO Work Phone: Comment on above: CALCULATIONS OF MOISES MATED GFR ARE PERFORMED USING THE 2020 CKD-EPI STUDY REFIT EQUATION WITHOUT THE RACE VARIABLE FOR THE IDMS-TRACEABLE CREATININE METHODS.https://jasn.asnjournals.org/content//A SN.[email or web address] Laboratory - Hematology and Cell countson 01-25-2022 Erythrocyte distribution width (RBC) [Ratio] 15.2 % above high threshold See Below [facility] [employer] Surikate DO Work Phone: Comment on above: Reference Range: 11. 5 - 14.5 Hematocrit (Bld) [Volume fraction] 29.7 % below low threshold See Below [facility] [employer] Surikate DO Work Phone: Comment on above: Reference Range: 36. 0 - 46.0 Hemoglobin (Bld) [Mass/Vol] 9.9 g/dL below low threshold See Below [facility] [employer] Surikate DO Work Phone: Comment on above: Reference Range: 12. 0 - 16.0 MCHC (RBC) [Mass/Vol] 33.3 g/dL See Below [facility] [employer] Surikate DO Work Phone: Comment on above: Reference Range: 32. 0 - 36.0 MCV (RBC) [Entitic vol] 89 fL 80 - [address] [facility] Surikate DO Work Phone: Platelets (Bld) [#/Vol] 490 10*3/uL above high threshold 150 - [address] [facility] [employer] Surikate DO Work Phone: RBC (Bld) [#/Vol] 3.33 {x10E12/L} below low threshold See Below [facility] [employer] Surikate DO Work Phone: Comment on above: Reference Range: 4.0 0 - 5.20 WBC (Bld) [#/Vol] 15.4 10*3/uL above high threshold 4.4 - 11.[address] [facility] [employer]Macaren[employer] Surikate DO Work Phone: Magnesium, Serumon 2 Magnesium [Mass/Vol] 1.89 mg/dL See Below [facility] [employer] kori 250 DO Work Phone: Comment on above: Reference Range: 1.6 0 - 2.40 No Panel Informationon 01-25 0.0 {/100_WBC} 0.0-0.[address] [facility] Id[employer]Guerita Surikate DO Work Phone: Renal Function Panelon 01-25 Albumin BCP dye [Mass/Vol] 3.1 g/dL below low threshold 3.4 - 5.[address] [facility] [employer] Sur[employer]ate DO Work Phone: Anion gap [Moles/Vol] 16 mmol/L 10 - 20 [facility] ClinicGuo Xian Scientific and Technical CorporationGuerita kori MAYKOR DO Work Phone: Calcium [Mass/Vol] 8.5 mg/dL below low threshold 8.6 - 10.[address] [facility] [employer]Gu[employer] kori MAYKOR DO Work Phone: Chloride [Moles/Vol] 91 mmol/L below low threshold 98 - [address] [facility] [employer] kori 250 DO Work Phone: CO2 [Moles/Vol] 22 mmol/L 21 - [address] [facility] [employer] Surikate DO Work Phone: Creatinine [Mass/Vol] 0.72 mg/dL See Below [facility] [employer] kori Jhonny DO Work Phone: Comment on above: Reference Range: 0.5 0 - 1.05 Glucose [Mass/Vol] 94 mg/dL 74 - 99 [facility] [employer] 250 DO Work Phone: Phosphate [Mass/Vol] 4.5 mg/dL 2.5 - 4.9 [facility] kori 250 DO Work Phone: Comment on above: The performance andra acteristics of phosphorus testing in heparinized plasma have been validated by the individual laboratory site where testing is performed. Testing on heparinized plasma is not approved by the FDA; however, such approval is not necessary. Potassium [Moles/Vol] 5.1 mmol/L 3.5 - 5.3 [place] [address] DO Work Phone: Sodium [Moles/Vol] 124 mmol/L below low threshold 136 - 145 [place] [address] DO Work Phone: Urea nitrogen [Mass/Vol] 40 mg/dL above high threshold 6 - 23 [place] [address] DO Work Phone: Renal Function Panel 84 {mL/min/1.73m2} >90 [place] [address] DO Work Phone: Comment on above: CALCULATIONS OF MOISES MATED GFR ARE PERFORMED USING THE 2020 CKD-EPI STUDY REFIT EQUATION WITHOUT THE RACE VARIABLE FOR THE IDMS-TRACEABLE CREATININE METHODS.https://jasn.asnjournals.org/content//A SN.[id number] Albumin BCP dye [Mass/Vol] 3.1 g/dL below low threshold 3.4 - 5.0 [facility] 250 DO Work Phone: Anion gap [Moles/Vol] 15 mmol/L 10 - 20 [facility] MAYKOR DO Work Phone: Calcium [Mass/Vol] 8.6 mg/dL 8.6 - 10.6 [facility] kori 250 DO Work Phone: Chloride [Moles/Vol] 92 mmol/L below low threshold 98 - 107 [facility] MAYKOR DO Work Phone: CO2 [Moles/Vol] 21 mmol/L 21 - 32 [facility] kori 250 DO Work Phone: Creatinine [Mass/Vol] 0.74 mg/dL See Below [place] [address] DO Work Phone: Comment on above: Reference Range: 0.5 0 - 1.05 Glucose [Mass/Vol] 85 mg/dL 74 - 99 [facility] kori 250 DO Work Phone: Phosphate [Mass/Vol] 3.9 mg/dL 2.5 - 4.9 [facility] kori 250 DO Work Phone: Comment on above: The performance andra acteristics of phosphorus testing in heparinized plasma have been validated by the individual laboratory site where testing is performed. Testing on heparinized plasma is not approved by the FDA; however, such approval is not necessary. Potassium [Moles/Vol] 5.3 mmol/L 3.5 - 5.3 [place] [address] DO Work Phone: Sodium [Moles/Vol] 123 mmol/L below low threshold 136 - 145 [place] [address] DO Work Phone: Urea nitrogen [Mass/Vol] 17 mg/dL 6 - 23 [place] [address] DO Work Phone: Renal Function Panel 82 {mL/min/1.73m2} >90 [place] [address] DO Work Phone: Comment on above: CALCULATIONS OF MOISES MATED GFR ARE PERFORMED USING THE 2020 CKD-EPI STUDY REFIT EQUATION WITHOUT THE RACE VARIABLE FOR THE IDMS-TRACEABLE CREATININE METHODS.https://jasn.asnjournals.org/content//A SN.9180618442 Cortisol, Unspecifiedon 11- Cortisol [Mass/Vol] 18.4 ug/dL 2.5 - 20.0 [facility] Surikate DO Work Phone: Laboratory - Chemistry and C hemistry - challengeon 01-24-2022 Creatinine (U) [Mass/Vol] 71.9 mg/dL See Below [facility]imer[facility] health DO Work Phone: Comment on above: Reference Range: 20. 0 - 320.0 Osmolality (U) [Osmolality] 646 mosm/kg 200 - 1200 [place] [address] DO Work Phone: Potassium (U) [Moles/Vol] 48 mmol/L See Below [place] [address] DO Work Phone: Comment on above: Reference Range: Not Established Potassium/Creatinine (U) [Molar ratio] 67 {mmol/g_Creat} See Below [place] [address] DO Work Phone: Comment on above: Reference Range: Not Established Sodium (U) [Moles/Vol] 131 mmol/L See Below [place] [address] DO Work Phone: Comment on above: Reference Range: Not Established Sodium/Creatinine (U) [Ratio] 182 {mmol/g_Creat} See Below [place] [address] DO Work Phone: Comment on above: Reference Range: Not Established Urea nitrogen (U) [Mass/Vol] 671 mg/dL See Below [place] [address] DO Work Phone: Comment on above: Reference Range: Not Established Urea/Creatinine (U) [Molar ratio] 9.3 {g/g_Creat} See Below [place] [address] DO Work Phone: Comment on above: Reference Range: Not Established Laboratory - Hematology and Cell countson 01-24-2022 Erythrocyte distribution width (RBC) [Ratio] 15.2 % above high threshold See Below [place] [address] DO Work Phone: Comment on above: Reference Range: 11. 5 - 14.5 Hematocrit (Bld) [Volume fraction] 29.8 % below low threshold See Below [facility] [employer] kori 250 DO Work Phone: Comment on above: Reference Range: 36. 0 - 46.0 Hemoglobin (Bld) [Mass/Vol] 10.0 g/dL below low threshold See Below [facility] [employer]Vincent sheikh 250 DO Work Phone: Comment on above: Reference Range: 12. 0 - 16.0 MCHC (RBC) [Mass/Vol] 33.6 g/dL See Below [facility] [employer]Vincent sheikh 250 DO Work Phone: Comment on above: Reference Range: 32. 0 - 36.0 MCV (RBC) [Entitic vol] 89 fL 80 - [address] [facility] Sai sheikh 250 DO Work Phone: Platelets (Bld) [#/Vol] 463 10*3/uL above high threshold 150 - [address] [facility] [employer] kori 250 DO Work Phone: RBC (Bld) [#/Vol] 3.33 {x10E12/L} below low threshold See Below [facility] [employer]Guerita kori 250 DO Work Phone: Comment on above: Reference Range: 4.0 0 - 5.20 WBC (Bld) [#/Vol] 12.6 10*3/uL above high threshold 4.4 - 11.[address] [facility] [employer]Vincent sheikh 250 DO Work Phone: Magnesium, Serumon 2 Magnesium [Mass/Vol] 1.85 mg/dL See Below [facility] [employer] kori 250 DO Work Phone: Comment on above: Reference Range: 1.6 0 - 2.40 No Panel Informationon 01-24 210 {mmol/g_Creat} 38 - 318 [facility] [employer] kori 250 DO Work Phone: 151 mmol/L See Below [facility] [employer]Guer[employer] kori 250 DO Work Phone: Comment on above: Reference Range: Not Established 0.0 {/100_WBC} 0.0-0.[address] [facility] kori 250 DO Work Phone: Osmolality, Serumon 01-25-20 22 Osmolality [Osmolality] 260 {mOsm/kg_H2O} below low threshold 280 - [address] [facility] [place] 250 DO Work Phone: Radiologyon 01-24-2022 XR Chest Single view Normal [facility] [place] 250 DO Work Phone: Renal Function Panelon 01-24 Albumin BCP dye [Mass/Vol] 3.0 g/dL below low threshold 3.4 - 5.0 [facility] 250 DO Work Phone: Anion gap [Moles/Vol] 13 mmol/L 10 - 20 [place] [address] DO Work Phone: Calcium [Mass/Vol] 8.2 mg/dL below low threshold 8.6 - 10.6 [facility] MAYKOR DO Work Phone: Chloride [Moles/Vol] 95 mmol/L below low threshold 98 - 107 [facility] 250 DO Work Phone: CO2 [Moles/Vol] 20 mmol/L below low threshold 21 - 32 [facility] 250 DO Work Phone: Creatinine [Mass/Vol] 0.73 mg/dL See Below [facility] 250 DO Work Phone: Comment on above: Reference Range: 0.5 0 - 1.05 Glucose [Mass/Vol] 88 mg/dL 74 - 99 [facility] kori 250 DO Work Phone: Phosphate [Mass/Vol] 3.4 mg/dL 2.5 - 4.9 [facility] kori 250 DO Work Phone: Comment on above: The performance andra acteristics of phosphorus testing in heparinized plasma have been validated by the individual laboratory site where testing is performed. Testing on heparinized plasma is not approved by the FDA; however, such approval is not necessary. Potassium [Moles/Vol] 5.1 mmol/L 3.5 - 5.3 [facility] kori MAYKOR DO Work Phone: Sodium [Moles/Vol] 123 mmol/L below low threshold 136 - 145 [facility] MAYKOR DO Work Phone: Urea nitrogen [Mass/Vol] 17 mg/dL 6 - 23 [facility] MAYKOR DO Work Phone: Renal Function Panel 83 {mL/min/1.73m2} >90 [facility] MAYKOR DO Work Phone: Comment on above: CALCULATIONS OF MOISSE MATED GFR ARE PERFORMED USING THE 2020 CKD-EPI STUDY REFIT EQUATION WITHOUT THE RACE VARIABLE FOR THE IDMS-TRACEABLE CREATININE METHODS.https://jasn.asnjournals.org/content//A .[id number] Laboratory - Hematology and Cell countson 01-23-2022 Erythrocyte distribution width (RBC) [Ratio] 15.5 % above high threshold See Below [facility] MAYKOR DO Work Phone: Comment on above: Reference Range: 11. 5 - 14.5 Hematocrit (Bld) [Volume fraction] 32.9 % below low threshold See Below [facility] MAYKOR DO Work Phone: Comment on above: Reference Range: 36. 0 - 46.0 Hemoglobin (Bld) [Mass/Vol] 10.6 g/dL below low threshold See Below [facility] MAYKOR DO Work Phone: Comment on above: Reference Range: 12. 0 - 16.0 MCHC (RBC) [Mass/Vol] 32.2 g/dL See Below [place] [address] DO Work Phone: Comment on above: Reference Range: 32. 0 - 36.0 MCV (RBC) [Entitic vol] 95 fL 80 - 100 [facility] kori 250 DO Work Phone: Platelets (Bld) [#/Vol] 420 10*3/uL 150 - 450 [facility] 250 DO Work Phone: [phone] RBC (Bld) [#/Vol] 3.47 {x10E12/L} below low threshold See Below [facility] Jhonny DO Work Phone: Comment on above: Reference Range: 4.0 0 - 5.20 WBC (Bld) [#/Vol] 11.9 10*3/uL above high threshold 4.4 - 11.3 [facility] 250 DO Work Phone: Magnesium, Serumon Magnesium [Mass/Vol] 1.95 mg/dL See Below [facility] MAYKOR DO Work Phone: Comment on above: Reference Range: 1.6 0 - 2.40 No Panel Informationon 01-23 0.0 {/100_WBC} 0.0-0.0 [facility] MAYKOR DO Work Phone: Renal Function Panelon 01-23 Albumin BCP dye [Mass/Vol] 2.9 g/dL below low threshold 3.4 - 5.0 [facility] MAYKOR DO Work Phone: Anion gap [Moles/Vol] 14 mmol/L 10 - 20 [facility] 250 DO Work Phone: Calcium [Mass/Vol] 8.5 mg/dL below low threshold 8.6 - 10.6 [facility] 250 DO Work Phone: Chloride [Moles/Vol] 96 mmol/L below low threshold 98 - 107 [facility] MAYKOR DO Work Phone: CO2 [Moles/Vol] 20 mmol/L below low threshold 21 - 32 [facility] kori MAYKOR DO Work Phone: Creatinine [Mass/Vol] 0.80 mg/dL See Below [place] [address] DO Work Phone: Comment on above: Reference Range: 0.5 0 - 1.05 Glucose [Mass/Vol] 78 mg/dL 74 - 99 [facility] Sur[employer] DO Work Phone: Phosphate [Mass/Vol] 4.2 mg/dL 2.5 - 4.9 [facility] Surikate DO Work Phone: Comment on above: The performance andra acteristics of phosphorus testing in heparinized plasma have been validated by the individual laboratory site where testing is performed. Testing on heparinized plasma is not approved by the FDA; however, such approval is not necessary. Potassium [Moles/Vol] 5.4 mmol/L above high threshold 3.5 - 5.3 [facility] MAYKOR DO Work Phone: Sodium [Moles/Vol] 125 mmol/L below low threshold 136 - 145 [place] [address] DO Work Phone: Urea nitrogen [Mass/Vol] 15 mg/dL 6 - 23 [place] [address] DO Work Phone: Renal Function Panel 74 {mL/min/1.73m2} >90 [place] [address] DO Work Phone: Comment on above: CALCULATIONS OF MOISES MATED GFR ARE PERFORMED USING THE 2020 CKD-EPI STUDY REFIT EQUATION WITHOUT THE RACE VARIABLE FOR THE IDMS-TRACEABLE CREATININE METHODS.https://jasn.asnjournals.org/content//A SN.[id number] Coronavirus 2019 RNA by PCR, Screening Asymptomticon 01-22-2022 Coronavirus 2019 RNA by PCR, Screening Asymptomtic Not detected Normal See Below [facility] MAYKOR DO Work Phone: Comment on above: SOURCE: Nasal, Nasop haryngealReference Range: Not Detected.This assay is designed to detect the ORF1ab and/or S genes of SARS-CoV-2 via nucleic acid amplification. A Not Detected result does not preclude 2019-nCoV infection since the adequacy of sample collection and/or low viral burden may result in presence of viral nucleic acids below the clinical sensitivity of this test method. Fact sheet for providers: www.fda.gov/media/818097/downloadFact sheet for patients: www.fda.gov/media/781649/downloadThis test has received FDA Emergency Use Authorization (EUA) and has been verified by [facility] ([facility]). This test is only authorized for the duration of time that circumstances exist to justify the authorization of the emergency use of in vitro diagnostic tests for the detection of SARS-CoV-2 virus and/or diagnosis of COVID-19 infection under section 564(b)(1) of the Act, 21 U.S.C. 360bbb-3(b)(1), unless the authorization is terminated or revoked sooner. [facility] is certified under CLIA-88 as qualified to perform high complexity testing. Testing is performed in the [facility] laboratories located at [address] [place] [address]. Laboratory - Hematology and Cell countson 01-22-2022 Erythrocyte distribution width (RBC) [Ratio] 15.2 % above high threshold See Below [facility] [employer] DO Work Phone: Comment on above: Reference Range: 11. 5 - 14.5 Hematocrit (Bld) [Volume fraction] 31.2 % below low threshold See Below [facility] Surikate DO Work Phone: Comment on above: Reference Range: 36. 0 - 46.0 Hemoglobin (Bld) [Mass/Vol] 10.0 g/dL below low threshold See Below [facility] Surikate DO Work Phone: Comment on above: Reference Range: 12. 0 - 16.0 MCHC (RBC) [Mass/Vol] 32.1 g/dL See Below [facility] kori 250 DO Work Phone: Comment on above: Reference Range: 32. 0 - 36.0 MCV (RBC) [Entitic vol] 94 fL 80 - [address] [facility] [employer] kori 250 DO Work Phone: Platelets (Bld) [#/Vol] 409 10*3/uL 150 - [address] [facility] [employer]Gu[employer] kori 250 DO Work Phone: RBC (Bld) [#/Vol] 3.33 {x10E12/L} below low threshold See Below [facility] [employer] kori 250 DO Work Phone: Comment on above: Reference Range: 4.0 0 - 5.20 WBC (Bld) [#/Vol] 12.4 10*3/uL above high threshold 4.4 - 11.[address] [facility] [employer] kori 250 DO Work Phone: Magnesium, Serumon 2 Magnesium [Mass/Vol] 1.94 mg/dL See Below [facility] [employer] kori 250 DO Work Phone: Comment on above: Reference Range: 1.6 0 - 2.40 No Panel Informationon 01-22 0.0 {/100_WBC} 0.0-0.[address] [facility] [employer]Macarena kori 250 DO Work Phone: Renal Function Panelon 01-22 Albumin BCP dye [Mass/Vol] 3.1 g/dL below low threshold 3.4 - 5.[address] [facility] [employer] 250 DO Work Phone: Anion gap [Moles/Vol] 13 mmol/L 10 - 20 [facility] [employer] kori 250 DO Work Phone: Calcium [Mass/Vol] 8.7 mg/dL 8.6 - 10.6 [facility] [employer] 250 DO Work Phone: Chloride [Moles/Vol] 97 mmol/L below low threshold 98 - [address] [facility] 250 DO Work Phone: CO2 [Moles/Vol] 19 mmol/L below low threshold 21 - 32 [place] [address] DO Work Phone: Creatinine [Mass/Vol] 0.81 mg/dL See Below [place] [address] DO Work Phone: Comment on above: Reference Range: 0.5 0 - 1.05 Glucose [Mass/Vol] 90 mg/dL 74 - 99 [facility] Surikate DO Work Phone: Phosphate [Mass/Vol] 4.3 mg/dL 2.5 - 4.9 [facility] kori MAYKOR DO Work Phone: Comment on above: The performance andra acteristics of phosphorus testing in heparinized plasma have been validated by the individual laboratory site where testing is performed. Testing on heparinized plasma is not approved by the FDA; however, such approval is not necessary. Potassium [Moles/Vol] 5.3 mmol/L 3.5 - 5.3 [place] [address] DO Work Phone: Urea nitrogen [Mass/Vol] 15 mg/dL 6 - 23 [place] [address] DO Work Phone: Renal Function Panel 73 {mL/min/1.73m2} >90 [place] [address] DO Work Phone: Comment on above: CALCULATIONS OF MOISES MATED GFR ARE PERFORMED USING THE 2020 CKD-EPI STUDY REFIT EQUATION WITHOUT THE RACE VARIABLE FOR THE IDMS-TRACEABLE CREATININE METHODS.https://jasn.asnjournals.org/content//A SN.[id number] Albumin BCP dye [Mass/Vol] 2.8 g/dL below low threshold 3.4 - 5.0 [place] [address] DO Work Phone: Anion gap [Moles/Vol] 14 mmol/L 10 - 20 [place] [address] DO Work Phone: Calcium [Mass/Vol] 7.9 mg/dL below low threshold 8.6 - 10.6 [facility] kori 250 DO Work Phone: Chloride [Moles/Vol] 96 mmol/L below low threshold 98 - 107 [facility] 250 DO Work Phone: CO2 [Moles/Vol] 20 mmol/L below low threshold 21 - 32 [facility] 250 DO Work Phone: Creatinine [Mass/Vol] 0.77 mg/dL See Below [place] [address] DO Work Phone: Comment on above: Reference Range: 0.5 0 - 1.05 Glucose [Mass/Vol] 79 mg/dL 74 - 99 [facility] kori 250 DO Work Phone: Phosphate [Mass/Vol] 3.9 mg/dL 2.5 - 4.9 [facility] kori 250 DO Work Phone: Comment on above: The performance andra acteristics of phosphorus testing in heparinized plasma have been validated by the individual laboratory site where testing is performed. Testing on heparinized plasma is not approved by the FDA; however, such approval is not necessary. Potassium [Moles/Vol] 5.8 mmol/L above high threshold 3.5 - 5.3 [facility] MAYKOR DO Work Phone: Sodium [Moles/Vol] 124 mmol/L below low threshold 136 - 145 [facility] 250 DO Work Phone: Urea nitrogen [Mass/Vol] 11 mg/dL 6 - 23 [place] [address] DO Work Phone: Renal Function Panel 78 {mL/min/1.73m2} >90 [place] [address] DO Work Phone: Comment on above: CALCULATIONS OF MOISES MATED GFR ARE PERFORMED USING THE 2020 CKD-EPI STUDY REFIT EQUATION WITHOUT THE RACE VARIABLE FOR THE IDMS-TRACEABLE CREATININE METHODS.https://jasn.asnjournals.org/content//A .[email or web address] Laboratory - Hematology and Cell countson 01-21-2022 Erythrocyte distribution width (RBC) [Ratio] 14.8 % above high threshold See Below [facility] [employer] Surikate DO Work Phone: Comment on above: Reference Range: 11. 5 - 14.5 Hematocrit (Bld) [Volume fraction] 33.4 % below low threshold See Below [facility] [employer] kori [facility] DO Work Phone: Comment on above: Reference Range: 36. 0 - 46.0 Hemoglobin (Bld) [Mass/Vol] 10.8 g/dL below low threshold See Below [facility] [employer] [facility] DO Work Phone: Comment on above: Reference Range: 12. 0 - 16.0 MCHC (RBC) [Mass/Vol] 32.3 g/dL See Below [facility] [employer] [facility] DO Work Phone: Comment on above: Reference Range: 32. 0 - 36.0 MCV (RBC) [Entitic vol] 91 fL 80 - [address] [facility] [place] [address] DO Work Phone: Platelets (Bld) [#/Vol] 393 10*3/uL 150 - [address] [facility] DO Work Phone: RBC (Bld) [#/Vol] 3.67 {x10E12/L} below low threshold See Below [facility] [employer] Surikate DO Work Phone: Comment on above: Reference Range: 4.0 0 - 5.20 WBC (Bld) [#/Vol] 13.1 10*3/uL above high threshold 4.4 - 11.[address] [facility] kori MAYKOR DO Work Phone: Magnesium, Serumon 2 Magnesium [Mass/Vol] 1.94 mg/dL See Below [facility] [employer] kori MAYKOR DO Work Phone: Comment on above: Reference Range: 1.6 0 - 2.40 No Panel Informationon 01-21 0.0 {/100_WBC} 0.0-0.[address] [facility] DO Work Phone: Renal Function Panelon 01-21 Albumin BCP dye [Mass/Vol] 3.1 g/dL below low threshold 3.4 - 5.0 [facility] kori MAYKOR DO Work Phone: Anion gap [Moles/Vol] 14 mmol/L 10 - 20 [place] [address] DO Work Phone: Calcium [Mass/Vol] 8.1 mg/dL below low threshold 8.6 - 10.6 [place] [address] DO Work Phone: Chloride [Moles/Vol] 93 mmol/L below low threshold 98 - 107 [facility] MAYKOR DO Work Phone: CO2 [Moles/Vol] 20 mmol/L below low threshold 21 - 32 [place] [address] DO Work Phone: Creatinine [Mass/Vol] 0.70 mg/dL See Below [place] [address] DO Work Phone: Comment on above: Reference Range: 0.5 0 - 1.05 Glucose [Mass/Vol] 117 mg/dL above high threshold 74 - 99 [facility] kori MAYKOR DO Work Phone: Phosphate [Mass/Vol] 2.9 mg/dL 2.5 - 4.9 [facility] kori 250 DO Work Phone: Comment on above: The performance andra acteristics of phosphorus testing in heparinized plasma have been validated by the individual laboratory site where testing is performed. Testing on heparinized plasma is not approved by the FDA; however, such approval is not necessary.MILD HEMOLYSIS DETECTED. The result may be falsely elevated due tohemolysis or other interferents. Clinical correlation is recommended.Repeat testing may be considered. Potassium [Moles/Vol] 5.1 mmol/L 3.5 - 5.3 [facility] [employer] DO Work Phone: Comment on above: MILD HEMOLYSIS DETEC ABENA. The result may be falsely elevated due tohemolysis or other interferents. Clinical correlation is recommended.Repeat testing may be considered. Sodium [Moles/Vol] 122 mmol/L below low threshold 136 - [address] [facility] [employer] Surikate DO Work Phone: Urea nitrogen [Mass/Vol] 8 mg/dL 6 - 23 [facility] [employer] DO Work Phone: Renal Function Panel 87 {mL/min/1.73m2} >[address] [facility] Surikate DO Work Phone: Comment on above: CALCULATIONS OF MOISES MATED GFR ARE PERFORMED USING THE 2020 CKD-EPI STUDY REFIT EQUATION WITHOUT THE RACE VARIABLE FOR THE IDMS-TRACEABLE CREATININE METHODS.https://jasn.asnjournals.org/content//A .[email or web address] Laboratory - Hematology and Cell countson 01-20-2022 Erythrocyte distribution width (RBC) [Ratio] 14.2 % See Below [facility] Surikate DO Work Phone: Comment on above: Reference Range: 11. 5 - 14.5 Hematocrit (Bld) [Volume fraction] 30.7 % below low threshold See Below [facility] Sur[employer] DO Work Phone: Comment on above: Reference Range: 36. 0 - 46.0 Hemoglobin (Bld) [Mass/Vol] 11.1 g/dL below low threshold See Below [facility] [employer] Surikate DO Work Phone: Comment on above: Reference Range: 12. 0 - 16.0 MCHC (RBC) [Mass/Vol] 36.2 g/dL above high threshold See Below [facility] Sai sheikh 250 DO Work Phone: Comment on above: Reference Range: 32. 0 - 36.0 MCV (RBC) [Entitic vol] 84 fL 80 - [address] [facility] Sai padillay 250 DO Work Phone: [phone] Platelets (Bld) [#/Vol] 382 10*3/uL 150 - [address] [facility] Becky kori 250 DO Work Phone: RBC (Bld) [#/Vol] 3.65 {x10E12/L} below low threshold See Below [facility] Jhonny DO Work Phone: Comment on above: Reference Range: 4.0 0 - 5.20 WBC (Bld) [#/Vol] 14.9 10*3/uL above high threshold 4.4 - 11.3 [facility] kori Jhonny DO Work Phone: Magnesium, Serumon 2 Magnesium [Mass/Vol] 1.77 mg/dL See Below [facility] Sai sheikh 250 DO Work Phone: Comment on above: Reference Range: 1.6 0 - 2.40 No Panel Informationon 01-20 0.0 {/100_WBC} 0.0-0.[address] [facility] Becky kori Jhonny DO Work Phone: Radiologyon 01-20-2022 XR Chest 2 Views Normal [facility] pad[facility]ay 250 DO Work Phone: Renal Function Panelon 01-20 Albumin BCP dye [Mass/Vol] 3.1 g/dL below low threshold 3.4 - 5.0 [facility] Jhonny DO Work Phone: Anion gap [Moles/Vol] 12 mmol/L 10 - 20 [facility] Jhonny DO Work Phone: Calcium [Mass/Vol] 8.2 mg/dL below low threshold 8.6 - 10.6 [facility] 250 DO Work Phone: Chloride [Moles/Vol] 92 mmol/L below low threshold 98 - 107 [place] [address] DO Work Phone: CO2 [Moles/Vol] 22 mmol/L 21 - 32 [place] [address] DO Work Phone: Creatinine [Mass/Vol] 0.71 mg/dL See Below [place] [address] DO Work Phone: Comment on above: Reference Range: 0.5 0 - 1.05 Glucose [Mass/Vol] 77 mg/dL 74 - 99 [facility] MAYKOR DO Work Phone: Phosphate [Mass/Vol] 3.2 mg/dL 2.5 - 4.9 [place] [address] DO Work Phone: Comment on above: The performance andra acteristics of phosphorus testing in heparinized plasma have been validated by the individual laboratory site where testing is performed. Testing on heparinized plasma is not approved by the FDA; however, such approval is not necessary. Potassium [Moles/Vol] 4.4 mmol/L 3.5 - 5.3 [place] [address] DO Work Phone: Sodium [Moles/Vol] 122 mmol/L below low threshold 136 - 145 [place] [address] DO Work Phone: Urea nitrogen [Mass/Vol] 9 mg/dL 6 - 23 [place] [address] DO Work Phone: Renal Function Panel 86 {mL/min/1.73m2} >90 [place] [address] DO Work Phone: Comment on above: CALCULATIONS OF MOISES MATED GFR ARE PERFORMED USING THE 2020 CKD-EPI STUDY REFIT EQUATION WITHOUT THE RACE VARIABLE FOR THE IDMS-TRACEABLE CREATININE METHODS.https://jasn.asnjournals.org/content//A SN.[email or web address] Albumin BCP dye [Mass/Vol] 3.1 g/dL below low threshold 3.4 - 5.0 [facility] kori MAYKOR DO Work Phone: Anion gap [Moles/Vol] 16 mmol/L 10 - 20 [place] [address] DO Work Phone: Calcium [Mass/Vol] 8.1 mg/dL below low threshold 8.6 - 10.6 [place] [address] DO Work Phone: Chloride [Moles/Vol] 91 mmol/L below low threshold 98 - 107 [place] [address] DO Work Phone: CO2 [Moles/Vol] 19 mmol/L below low threshold 21 - 32 [place] [address] DO Work Phone: Creatinine [Mass/Vol] 0.64 mg/dL See Below [place] [address] DO Work Phone: Comment on above: Reference Range: 0.5 0 - 1.05 Glucose [Mass/Vol] 72 mg/dL below low threshold 74 - 99 [place] [address] DO Work Phone: Phosphate [Mass/Vol] 3.6 mg/dL 2.5 - 4.9 [place] [address] DO Work Phone: Comment on above: The performance andra acteristics of phosphorus testing in heparinized plasma have been validated by the individual laboratory site where testing is performed. Testing on heparinized plasma is not approved by the FDA; however, such approval is not necessary. Potassium [Moles/Vol] 4.9 mmol/L 3.5 - 5.3 [place] [address] DO Work Phone: Sodium [Moles/Vol] 121 mmol/L below low threshold 136 - 145 [place] [address] DO Work Phone: Urea nitrogen [Mass/Vol] 8 mg/dL 6 - 23 [place] [address] DO Work Phone: Renal Function Panel 89 {mL/min/1.73m2} >90 [place] [address] DO Work Phone: Comment on above: CALCULATIONS OF MOISES MATED GFR ARE PERFORMED USING THE 2020 CKD-EPI STUDY REFIT EQUATION WITHOUT THE RACE VARIABLE FOR THE IDMS-TRACEABLE CREATININE METHODS.https://jasn.asnjournals.org/content/early//A SN.2583000658 Amylase, Body Fluidon 2021 Amylase (Body fld) [Catalytic activity/Vol] 10 U/L [place] [address] DO Work Phone: Comment on above: SOURCE: Pleural flui d (thoracentesis fld)REF VALUENOT ESTABLISHEDThe performance characteristics of this test have beenvalidated by the [facility] laboratory. This test has not been approved by the FDA; however, such approval is not necessary. Cell Count + Differential, B heather Fluidon 01-19-2022 WBC (Bld) [#/Vol] 0.614 10*3/uL [facility] kori 250 DO Work Phone: Cell Count + Differential, Body Fluid 100 1 [facility] 250 DO Work Phone: [phone] Cell Count + Differential, Body Fluid 1 % [facility] 250 DO Work Phone: Cell Count + Differential, Body Fluid 47 % [facility] 250 DO Work Phone: Cell Count + Differential, Body Fluid 16 % [facility] 250 DO Work Phone: [phone] Cell Count + Differential, Body Fluid 36 % [facility] 250 DO Work Phone: [phone] Cell Count + Differential, Body Fluid 194637 /uL [facility] 250 DO Work Phone: Cell Count, Fluidon 01-20-20 22 WBC (Bld) [#/Vol] 0.605 10*3/uL -N [place] [address] DO Work Phone: [phone] Cell Count, Fluid 789024 /uL [facility] [place] [address] DO Work Phone: [phone] Cell Count, Fluid Cloudy CLEAR [facility] 250 DO Work Phone: Cell Count, Fluid Red YELLOW [place] [address] DO Work Phone: Comment on above: SOURCE: Pleural flui d (thoracentesis fld) Cult, AFB, Misc.+ smearon Mycobacterium sp identified Org specific cx Nom (Unsp spec) [place] [address] DO Work Phone: [phone] Cult, Body Fluid, + smearon 01-19-2022 Bacteria identified Cx Nom (Body fld) [place] [address] DO Work Phone: Cult, Fungus +smearon 2021 Fungus identified Cx Nom (Unsp spec) [place] [address] DO Work Phone: Cult, Urineon 01-19-2022 Bacteria identified Cx Nom (U) Abnormal [place] [address] DO Work Phone: Glucose, Fluidon 01-19-2022 Glucose (Body fld) [Mass/Vol] 134 mg/dL [place] [address] DO Work Phone: [phone] Comment on above: SOURCE: Pleural flui d (thoracentesis fld)REF VALUENOT ESTABLISHEDThe performance characteristics of this test have beenvalidated by the [facility] laboratory. This test has not been approved by the FDA; however, such approval is not necessary. Laboratory - Chemistry and C hemistry - challengeon 01-19-2022 Creatinine (U) [Mass/Vol] 49.0 mg/dL See Below [place] [address] DO Work Phone: Comment on above: Reference Range: 20. 0 - 320.0 Osmolality (U) [Osmolality] 250 mosm/kg 200 - 1200 [facility] pad[facility]ay 250 DO Work Phone: Potassium (U) [Moles/Vol] 27 mmol/L See Below [place] [address] DO Work Phone: Comment on above: Reference Range: Not Established Potassium/Creatinine (U) [Molar ratio] 55 {mmol/g_Creat} See Below [facility] DO Work Phone: Comment on above: Reference Range: Not Established Sodium (U) [Moles/Vol] 41 mmol/L See Below [facility] HealthGuerit[facility] [place] [address] DO Work Phone: Comment on above: Reference Range: Not Established Sodium/Creatinine (U) [Ratio] 84 {mmol/g_Creat} See Below [facility] DO Work Phone: Comment on above: Reference Range: Not Established Urea nitrogen (U) [Mass/Vol] 250 mg/dL See Below [facility] DO Work Phone: Comment on above: Reference Range: Not Established Urea/Creatinine (U) [Molar ratio] 5.1 {g/g_Creat} See Below [facility] DO Work Phone: Comment on above: Reference Range: Not Established Laboratory - Hematology and Cell countson 01-19-2022 Erythrocyte distribution width (RBC) [Ratio] 14.6 % above high threshold See Below [facility] DO Work Phone: Comment on above: Reference Range: 11. 5 - 14.5 Hematocrit (Bld) [Volume fraction] 34.4 % below low threshold See Below [place] [address] DO Work Phone: Comment on above: Reference Range: 36. 0 - 46.0 Hemoglobin (Bld) [Mass/Vol] 11.6 g/dL below low threshold See Below [facility] Sai sheikh 250 DO Work Phone: Comment on above: Reference Range: 12. 0 - 16.0 MCHC (RBC) [Mass/Vol] 33.7 g/dL See Below [facility] Sai sheikh 250 DO Work Phone: Comment on above: Reference Range: 32. 0 - 36.0 MCV (RBC) [Entitic vol] 89 fL 80 - [address] [facility] Sai padillay 250 DO Work Phone: Platelets (Bld) [#/Vol] 392 10*3/uL 150 - [address] [facility] 250 DO Work Phone: RBC (Bld) [#/Vol] 3.85 {x10E12/L} below low threshold See Below [facility] Becky kori Barry DO Work Phone: Comment on above: Reference Range: 4.0 0 - 5.20 WBC (Bld) [#/Vol] 19.0 10*3/uL above high threshold 4.4 - 11.[address] [facility] Sai padillay 250 DO Work Phone: Magnesium, Serumon 2 Magnesium [Mass/Vol] 1.74 mg/dL See Below [facility] Sai sheikh 250 DO Work Phone: Comment on above: Reference Range: 1.6 0 - 2.40 No Panel Informationon 01-19 84 {mmol/g_Creat} 38 - 318 [facility] Sai sheikh 250 DO Work Phone: 41 mmol/L See Below [facility] Becky kori 250 DO Work Phone: Comment on above: Reference Range: Not Established Normal [facility] Sai sheikh 250 DO Work Phone: 230 U/L [facility] 250 DO Work Phone: Comment on above: SOURCE: Pleural flui d (thoracentesis fld)REF VALUENOT ESTABLISHEDThe performance characteristics of this test have beenvalidated by the [facility] laboratory. This test has not been approved by the FDA; however, such approval is not necessary. 0.0 {/100_WBC} 0.0-0.0 [facility] kori 250 DO Work Phone: Osmolality, Serumon 01-20-20 22 Osmolality [Osmolality] 252 {mOsm/kg_H2O} below low threshold 280 - 300 [facility] kori 250 DO Work Phone: Radiologyon 01-19-2022 XR Chest Single view Normal [facility] 250 DO Work Phone: Renal Function Panelon 01-19 Albumin BCP dye [Mass/Vol] 3.3 g/dL below low threshold 3.4 - 5.0 [place] [address] DO Work Phone: Anion gap [Moles/Vol] 14 mmol/L 10 - 20 [place] [address] DO Work Phone: [phone] Calcium [Mass/Vol] 7.5 mg/dL below low threshold 8.6 - 10.6 [facility] 250 DO Work Phone: Chloride [Moles/Vol] 88 mmol/L below low threshold 98 - 107 [facility] 250 DO Work Phone: CO2 [Moles/Vol] 23 mmol/L 21 - 32 [facility] 250 DO Work Phone: Creatinine [Mass/Vol] 0.58 mg/dL See Below [facility] 250 DO Work Phone: Comment on above: Reference Range: 0.5 0 - 1.05 Glucose [Mass/Vol] 82 mg/dL 74 - 99 [facility]Gu[facility] Scientific and Technical CorporationEssentia Health kori 250 DO Work Phone: Phosphate [Mass/Vol] 3.0 mg/dL 2.5 - 4.9 [facility] kori 250 DO Work Phone: Comment on above: The performance andra acteristics of phosphorus testing in heparinized plasma have been validated by the individual laboratory site where testing is performed. Testing on heparinized plasma is not approved by the FDA; however, such approval is not necessary. Potassium [Moles/Vol] 4.4 mmol/L 3.5 - 5.3 [facility] 250 DO Work Phone: Sodium [Moles/Vol] 121 mmol/L below low threshold 136 - 145 [place] [address] DO Work Phone: Urea nitrogen [Mass/Vol] 8 mg/dL 6 - 23 [place] [address] DO Work Phone: Renal Function Panel >90 >90 [place] [address] DO Work Phone: Comment on above: CALCULATIONS OF MOISES MATED GFR ARE PERFORMED USING THE 2020 CKD-EPI STUDY REFIT EQUATION WITHOUT THE RACE VARIABLE FOR THE IDMS-TRACEABLE CREATININE METHODS.https://jasn.asnjournals.org/content//A SN.[id number] Albumin BCP dye [Mass/Vol] 3.1 g/dL below low threshold 3.4 - 5.0 [place] [address] DO Work Phone: Anion gap [Moles/Vol] 16 mmol/L 10 - 20 [facility] 250 DO Work Phone: Calcium [Mass/Vol] 7.9 mg/dL below low threshold 8.6 - 10.6 [place] [address] DO Work Phone: Chloride [Moles/Vol] 91 mmol/L below low threshold 98 - 107 [place] [address] DO Work Phone: CO2 [Moles/Vol] 19 mmol/L below low threshold 21 - 32 [facility] 250 DO Work Phone: Creatinine [Mass/Vol] 0.58 mg/dL See Below [place] [address] DO Work Phone: Comment on above: Reference Range: 0.5 0 - 1.05 Glucose [Mass/Vol] 125 mg/dL above high threshold 74 - 99 [place] [address] DO Work Phone: Phosphate [Mass/Vol] 3.0 mg/dL 2.5 - 4.9 [place] [address] DO Work Phone: Comment on above: The performance andra acteristics of phosphorus testing in heparinized plasma have been validated by the individual laboratory site where testing is performed. Testing on heparinized plasma is not approved by the FDA; however, such approval is not necessary. Potassium [Moles/Vol] 4.6 mmol/L 3.5 - 5.3 [place] [address] DO Work Phone: Sodium [Moles/Vol] 121 mmol/L below low threshold 136 - 145 [place] [address] DO Work Phone: Urea nitrogen [Mass/Vol] 9 mg/dL 6 - 23 [place] [address] DO Work Phone: Renal Function Panel >90 >90 [place] [address] DO Work Phone: Comment on above: CALCULATIONS OF MOISES MATED GFR ARE PERFORMED USING THE 2020 CKD-EPI STUDY REFIT EQUATION WITHOUT THE RACE VARIABLE FOR THE IDMS-TRACEABLE CREATININE METHODS.https://jasn.asnjournals.org/content//A SN.1485661420 Total Protein, Body Fluidon 01-19-2022 Protein (Body fld) [Mass/Vol] 2.7 g/dL [place] [address] DO Work Phone: Comment on above: SOURCE: Pleural flui d (thoracentesis fld)REF VALUENOT ESTABLISHEDThe performance characteristics of this test have beenvalidated by the performing [facility] laboratory. This test has not been approved by the FDA; however, such approval is not necessary. URINALYSIS WITH CULTURE IF I NDICATEDon 01-19-2022 Protein (U) [Mass/Vol] 100 (2+) Abnormal NEGATIVE [facility] [employer] 250 DO Work Phone: Specific gravity (U) [Rel density] 1.011 1 See Below [facility] [employer] 250 DO Work Phone: Comment on above: Reference Range: 1.0 05 - 1.035 Uric Acid, Serumon 2 Urate [Mass/Vol] 4.2 mg/dL 2.3 - 6.[address] [facility] [employer] 250 DO Work Phone: Comment on above: Venipuncture immedia tely after or during the administration of Metamizole may lead to falsely low results. Testing should be performed immediately prior to Metamizole dosing. Urinalysison 01-19-2022 Color (U) YELLOW See Below [facility] [employer] 250 DO Work Phone: Comment on above: Reference Range: STR AW,YELLOW Glucose Ql (U) Negative NEGATIVE [facility] [employer] 250 DO Work Phone: Ketones Ql (U) Negative NEGATIVE [facility] [employer] 250 DO Work Phone: Leukocyte esterase Test strip Ql (U) LARGE (3+) Abnormal NEGATIVE [facility] [employer] 250 DO Work Phone: pH (U) 7.0 [pH] 5.0 - 8.[address] [facility] [employer] 250 DO Work Phone: Protein (U) [Mass/Vol] 30 (1+) Abnormal NEGATIVE [facility] [employer] 250 DO Work Phone: RBC (U) [#/Vol] LARGE (3+) Abnormal NEGATIVE [facility] [employer] 250 DO Work Phone: Specific gravity (U) [Rel density] 1.[address] [facility] [employer] [facility] DO Work Phone: Comment on above: Reference Range: 1.0 05 - 1.035 Urinalysis Negative NEGATIVE [facility] DO Work Phone: Urinalysis <2.0 0.0 - 1.9 [facility] 250 DO Work Phone: Urinalysis HAZY CLEAR [place] [address] DO Work Phone: Urinalysis, Microscopicon Urinalysis, Microscopic <1 [place] [address] DO Work Phone: Urinalysis, Microscopic >182 Abnormal 0-5 [place] [address] DO Work Phone: [phone] Urinalysis, Microscopic RARE [facility] kori 250 DO Work Phone: Urinalysis, Microscopic 1+ [facility] 250 DO Work Phone: Urinalysis, Microscopic 396 {/HPF} Abnormal 0-5 [facility] 250 DO Work Phone: Urinalysis, Microscopic 658 {/HPF} Abnormal 0-5 [facility] 250 DO Work Phone: Laboratory - Hematology and Cell countson 01-18-2022 Erythrocyte distribution width (RBC) [Ratio] 14.5 % See Below [place] [address] DO Work Phone: Comment on above: Reference Range: 11. 5 - 14.5 Hematocrit (Bld) [Volume fraction] 35.0 % below low threshold See Below [place] [address] DO Work Phone: Comment on above: Reference Range: 36. 0 - 46.0 Hemoglobin (Bld) [Mass/Vol] 11.7 g/dL below low threshold See Below [facility] kori 250 DO Work Phone: Comment on above: Reference Range: 12. 0 - 16.0 MCHC (RBC) [Mass/Vol] 33.4 g/dL See Below [facility] [employer] kori 250 DO Work Phone: Comment on above: Reference Range: 32. 0 - 36.0 MCV (RBC) [Entitic vol] 90 fL 80 - 100 [facility] kori MAYKOR DO Work Phone: Platelets (Bld) [#/Vol] 390 10*3/uL 150 - 450 [facility]Gu[facility] CorporationEss[facility] Health kori MAYKOR DO Work Phone: RBC (Bld) [#/Vol] 3.90 {x10E12/L} below low threshold See Below [facility] [employer] kori Jhonny DO Work Phone: Comment on above: Reference Range: 4.0 0 - 5.20 WBC (Bld) [#/Vol] 14.4 10*3/uL above high threshold 4.4 - 11.[address] [facility] [employer] kori MAYKOR DO Work Phone: Magnesium, Serumon 2 Magnesium [Mass/Vol] 1.82 mg/dL See Below [facility] [employer] Sur[employer]ate DO Work Phone: Comment on above: Reference Range: 1.6 0 - 2.40 No Panel Informationon 01-18 0.0 {/100_WBC} 0.0-0.[address] [facility] [employer] kori MAYKOR DO Work Phone: Radiologyon 01-18-2022 XR Chest Single view Normal [facility] kori MAYKOR DO Work Phone: Renal Function Panelon 01-18 Albumin BCP dye [Mass/Vol] 3.3 g/dL below low threshold 3.4 - 5.[address] [facility] MAYKOR DO Work Phone: Anion gap [Moles/Vol] 14 mmol/L 10 - 20 [facility] kori 250 DO Work Phone: Calcium [Mass/Vol] 8.2 mg/dL below low threshold 8.6 - 10.6 [place] [address] DO Work Phone: Chloride [Moles/Vol] 91 mmol/L below low threshold 98 - 107 [place] [address] DO Work Phone: CO2 [Moles/Vol] 23 mmol/L 21 - 32 [place] [address] DO Work Phone: Creatinine [Mass/Vol] 0.73 mg/dL See Below [place] [address] DO Work Phone: Comment on above: Reference Range: 0.5 0 - 1.05 Glucose [Mass/Vol] 90 mg/dL 74 - 99 [facility] MAYKOR DO Work Phone: Phosphate [Mass/Vol] 3.3 mg/dL 2.5 - 4.9 [facility] MAYKOR DO Work Phone: Comment on above: The performance andra acteristics of phosphorus testing in heparinized plasma have been validated by the individual laboratory site where testing is performed. Testing on heparinized plasma is not approved by the FDA; however, such approval is not necessary. Potassium [Moles/Vol] 4.1 mmol/L 3.5 - 5.3 [place] [address] DO Work Phone: Sodium [Moles/Vol] 124 mmol/L below low threshold 136 - 145 [place] [address] DO Work Phone: Urea nitrogen [Mass/Vol] 10 mg/dL 6 - 23 [place] [address] DO Work Phone: Renal Function Panel 83 {mL/min/1.73m2} >90 [place] [address] DO Work Phone: Comment on above: CALCULATIONS OF MOISES MATED GFR ARE PERFORMED USING THE 2020 CKD-EPI STUDY REFIT EQUATION WITHOUT THE RACE VARIABLE FOR THE IDMS-TRACEABLE CREATININE METHODS.https://jasn.asnjournals.org/content//A SN.[email or web address] Laboratory - Hematology and Cell countson 01-17-2022 Erythrocyte distribution width (RBC) [Ratio] 14.4 % See Below [facility] [employer] Surikate DO Work Phone: Comment on above: Reference Range: 11. 5 - 14.5 Hematocrit (Bld) [Volume fraction] 33.4 % below low threshold See Below [facility] kor[facility] health DO Work Phone: Comment on above: Reference Range: 36. 0 - 46.0 Hemoglobin (Bld) [Mass/Vol] 11.2 g/dL below low threshold See Below [facility] [employer] korimercy health DO Work Phone: Comment on above: Reference Range: 12. 0 - 16.0 MCHC (RBC) [Mass/Vol] 33.5 g/dL See Below [facility] health DO Work Phone: Comment on above: Reference Range: 32. 0 - 36.0 MCV (RBC) [Entitic vol] 90 fL 80 - [address] [facility] korimercy health DO Work Phone: Platelets (Bld) [#/Vol] 325 10*3/uL 150 - 450 [facility] kori MAYKOR DO Work Phone: RBC (Bld) [#/Vol] 3.73 {x10E12/L} below low threshold See Below [facility] kori MAYKOR DO Work Phone: Comment on above: Reference Range: 4.0 0 - 5.20 WBC (Bld) [#/Vol] 13.2 10*3/uL above high threshold 4.4 - 11.[address] [facility] kori MAYKOR DO Work Phone: Magnesium, Serumon 2 Magnesium [Mass/Vol] 1.83 mg/dL See Below [facility] [employer] kori 250 DO Work Phone: Comment on above: Reference Range: 1.6 0 - 2.40 No Panel Informationon 01-17 0.0 {/100_WBC} 0.0-0.[address] [facility] health DO Work Phone: Renal Function Panelon 01-17 Albumin BCP dye [Mass/Vol] 2.8 g/dL below low threshold 3.4 - 5.0 [facility] kori MAYKOR DO Work Phone: Anion gap [Moles/Vol] 14 mmol/L 10 - 20 [place] [address] DO Work Phone: Calcium [Mass/Vol] 8.1 mg/dL below low threshold 8.6 - 10.6 [place] [address] DO Work Phone: Chloride [Moles/Vol] 96 mmol/L below low threshold 98 - 107 [facility] 250 DO Work Phone: CO2 [Moles/Vol] 21 mmol/L 21 - 32 [place] [address] DO Work Phone: Creatinine [Mass/Vol] 0.64 mg/dL See Below [place] [address] DO Work Phone: Comment on above: Reference Range: 0.5 0 - 1.05 Glucose [Mass/Vol] 79 mg/dL 74 - 99 [facility] and Technical CorporationEssent[facility] Health kori 250 DO Work Phone: Phosphate [Mass/Vol] 3.5 mg/dL 2.5 - 4.9 [facility] kori 250 DO Work Phone: Comment on above: The performance andra acteristics of phosphorus testing in heparinized plasma have been validated by the individual laboratory site where testing is performed. Testing on heparinized plasma is not approved by the FDA; however, such approval is not necessary. Potassium [Moles/Vol] 4.3 mmol/L 3.5 - 5.3 [facility] [employer] Surikate DO Work Phone: Sodium [Moles/Vol] 127 mmol/L below low threshold 136 - 145 [facility] kori MAYKOR DO Work Phone: Urea nitrogen [Mass/Vol] 11 mg/dL 6 - 23 [facility] kori MAYKOR DO Work Phone: Renal Function Panel 89 {mL/min/1.73m2} >[address] [facility] kori MAYKOR DO Work Phone: Comment on above: CALCULATIONS OF MOISES MATED GFR ARE PERFORMED USING THE 2020 CKD-EPI STUDY REFIT EQUATION WITHOUT THE RACE VARIABLE FOR THE IDMS-TRACEABLE CREATININE METHODS.https://jasn.asnjournals.org/content//A .[id number] Laboratory - Hematology and Cell countson 01-16-2022 Erythrocyte distribution width (RBC) [Ratio] 14.6 % above high threshold See Below [facility] [employer] kori MAYKOR DO Work Phone: Comment on above: Reference Range: 11. 5 - 14.5 Hematocrit (Bld) [Volume fraction] 33.9 % below low threshold See Below [facility] [employer] [employer] kori MAYKOR DO Work Phone: Comment on above: Reference Range: 36. 0 - 46.0 Hemoglobin (Bld) [Mass/Vol] 11.7 g/dL below low threshold See Below [facility] koir MAYKOR DO Work Phone: Comment on above: Reference Range: 12. 0 - 16.0 MCHC (RBC) [Mass/Vol] 34.5 g/dL See Below [facility] kori MAYKOR DO Work Phone: Comment on above: Reference Range: 32. 0 - 36.0 MCV (RBC) [Entitic vol] 89 fL 80 - 100 [facility] kori MAYKOR DO Work Phone: Platelets (Bld) [#/Vol] 285 10*3/uL 150 - [address] [facility] kori 250 DO Work Phone: RBC (Bld) [#/Vol] 3.80 {x10E12/L} below low threshold See Below [facility] 250 DO Work Phone: Comment on above: Reference Range: 4.0 0 - 5.20 WBC (Bld) [#/Vol] 12.4 10*3/uL above high threshold 4.4 - 11.3 [facility]Gu[facility] CorporationEssent[facility] Health korimercy health DO Work Phone: Magnesium, Serumon 2 Magnesium [Mass/Vol] 1.85 mg/dL See Below [facility] kori 250 DO Work Phone: Comment on above: Reference Range: 1.6 0 - 2.40 No Panel Informationon 01-16 0.0 {/100_WBC} 0.0-0.0 [facility] MAYKOR DO Work Phone: Renal Function Panelon 01-16 Albumin BCP dye [Mass/Vol] 2.9 g/dL below low threshold 3.4 - 5.0 [place] [address] DO Work Phone: Anion gap [Moles/Vol] 14 mmol/L 10 - 20 [facility] 250 DO Work Phone: Calcium [Mass/Vol] 8.3 mg/dL below low threshold 8.6 - 10.6 [facility] kori 250 DO Work Phone: Chloride [Moles/Vol] 97 mmol/L below low threshold 98 - 107 [facility] 250 DO Work Phone: CO2 [Moles/Vol] 23 mmol/L 21 - 32 [place] [address] DO Work Phone: Creatinine [Mass/Vol] 0.53 mg/dL See Below [place] [address] DO Work Phone: Comment on above: Reference Range: 0.5 0 - 1.05 Glucose [Mass/Vol] 81 mg/dL 74 - 99 [facility] 250 DO Work Phone: Phosphate [Mass/Vol] 2.8 mg/dL 2.5 - 4.9 [place] [address] DO Work Phone: Comment on above: The performance andra acteristics of phosphorus testing in heparinized plasma have been validated by the individual laboratory site where testing is performed. Testing on heparinized plasma is not approved by the FDA; however, such approval is not necessary. Potassium [Moles/Vol] 4.8 mmol/L 3.5 - 5.3 [place] [address] DO Work Phone: Sodium [Moles/Vol] 129 mmol/L below low threshold 136 - 145 [place] [address] DO Work Phone: Urea nitrogen [Mass/Vol] 13 mg/dL 6 - 23 [place] [address] DO Work Phone: Renal Function Panel >90 >90 [place] [address] DO Work Phone: Comment on above: CALCULATIONS OF MOISES MATED GFR ARE PERFORMED USING THE 2020 CKD-EPI STUDY REFIT EQUATION WITHOUT THE RACE VARIABLE FOR THE IDMS-TRACEABLE CREATININE METHODS.https://jasn.asnjournals.org/content///A SN.7497542431 Laboratory - Chemistry and C hemistry - challengeon 01-15-2022 Glucose [Mass/Vol] 128 mg/dL above high threshold 74 - 99 [place] [address] DO Work Phone: Glucose [Mass/Vol] 141 mg/dL above high threshold 74 - 99 [place] [address] DO Work Phone: Glucose [Mass/Vol] 75 mg/dL 74 - 99 [facility] [employer] kori 250 DO Work Phone: Glucose [Mass/Vol] 83 mg/dL 74 - 99 [facility] k[facility] 250 DO Work Phone: Laboratory - Hematology and Cell countson 01-15-2022 Erythrocyte distribution width (RBC) [Ratio] 14.7 % above high threshold See Below [facility] Jhonny DO Work Phone: Comment on above: Reference Range: 11. 5 - 14.5 Hematocrit (Bld) [Volume fraction] 31.5 % below low threshold See Below [facility] kori 250 DO Work Phone: Comment on above: Reference Range: 36. 0 - 46.0 Hemoglobin (Bld) [Mass/Vol] 10.6 g/dL below low threshold See Below [facility] Jhonny DO Work Phone: Comment on above: Reference Range: 12. 0 - 16.0 MCHC (RBC) [Mass/Vol] 33.7 g/dL See Below [facility] Jhonny DO Work Phone: Comment on above: Reference Range: 32. 0 - 36.0 MCV (RBC) [Entitic vol] 89 fL 80 - 100 [facility] korimercy health DO Work Phone: Platelets (Bld) [#/Vol] 234 10*3/uL 150 - 450 [facility] 250 DO Work Phone: RBC (Bld) [#/Vol] 3.52 {x10E12/L} below low threshold See Below [facility] Jhonny DO Work Phone: Comment on above: Reference Range: 4.0 0 - 5.20 WBC (Bld) [#/Vol] 12.6 10*3/uL above high threshold 4.4 - 11.3 [facility] 250 DO Work Phone: Magnesium, Serumon 2 Magnesium [Mass/Vol] 1.96 mg/dL See Below [facility] [employer] kori 250 DO Work Phone: Comment on above: Reference Range: 1.6 0 - 2.40 No Panel Informationon 01-15 0.0 {/100_WBC} 0.0-0.[address] [facility] kori 250 DO Work Phone: Radiologyon 01-15-2022 XR Chest 2 Views Normal [facility] 250 DO Work Phone: Renal Function Panelon 01-15 Albumin BCP dye [Mass/Vol] 2.9 g/dL below low threshold 3.4 - 5.0 [facility] 250 DO Work Phone: Anion gap [Moles/Vol] 13 mmol/L 10 - 20 [facility] 250 DO Work Phone: Calcium [Mass/Vol] 8.1 mg/dL below low threshold 8.6 - 10.[address] [facility] 250 DO Work Phone: Chloride [Moles/Vol] 100 mmol/L 98 - 107 [facility] kori 250 DO Work Phone: CO2 [Moles/Vol] 22 mmol/L 21 - 32 [facility] 250 DO Work Phone: Creatinine [Mass/Vol] 0.67 mg/dL See Below [facility] kori 250 DO Work Phone: Comment on above: Reference Range: 0.5 0 - 1.05 Glucose [Mass/Vol] 74 mg/dL 74 - 99 [facility] kori 250 DO Work Phone: Phosphate [Mass/Vol] 2.8 mg/dL 2.5 - 4.9 [facility] kori 250 DO Work Phone: Comment on above: The performance andra acteristics of phosphorus testing in heparinized plasma have been validated by the individual laboratory site where testing is performed. Testing on heparinized plasma is not approved by the FDA; however, such approval is not necessary. Potassium [Moles/Vol] 4.1 mmol/L 3.5 - 5.3 [employer] [facility] [employer] DO Work Phone: Sodium [Moles/Vol] 131 mmol/L below low threshold 136 - 145 [facility] [employer] DO Work Phone: Urea nitrogen [Mass/Vol] 15 mg/dL 6 - [address] [facility] [employer] DO Work Phone: Renal Function Panel 88 {mL/min/1.73m2} >90 [facility] [employer] DO Work Phone: Comment on above: CALCULATIONS OF MOISES MATED GFR ARE PERFORMED USING THE 2020 CKD-EPI STUDY REFIT EQUATION WITHOUT THE RACE VARIABLE FOR THE IDMS-TRACEABLE CREATININE METHODS.https://jasn.asnjournals.org/content/early//A SN.6196546358 URINALYSIS WITH CULTURE IF I NDICATEDon 01-15-2022 Color (U) YELLOW See Below [facility] [employer] DO Work Phone: Comment on above: Reference Range: STR AW,YELLOW Glucose Ql (U) Negative NEGATIVE [facility] [employer] DO Work Phone: Ketones Ql (U) 5 (TRACE) Abnormal NEGATIVE [facility] [employer] DO Work Phone: Leukocyte esterase Test strip Ql (U) Negative NEGATIVE [facility] [employer] DO Work Phone: pH (U) 7.0 [pH] 5.0 - 8.0 [facility] [employer] DO Work Phone: Protein (U) [Mass/Vol] Negative NEGATIVE [facility] [employer] DO Work Phone: RBC (U) [#/Vol] SMALL (1+) Abnormal NEGATIVE [facility] [employer] kori 250 DO Work Phone: Specific gravity (U) [Rel density] 1.011 1 See Below [facility] kori 250 DO Work Phone: Comment on above: Reference Range: 1.0 05 - 1.035 URINALYSIS WITH CULTURE IF INDICATED Negative NEGATIVE [facility] [employer] kori 250 DO Work Phone: URINALYSIS WITH CULTURE IF INDICATED <2.0 0.0 - 1.9 [facility] kori 250 DO Work Phone: URINALYSIS WITH CULTURE IF INDICATED CLEAR CLEAR [facility] kori [facility] DO Work Phone: Urinalysis, Microscopicon Urinalysis, Microscopic <1 0-5 [place] [address] DO Work Phone: Urinalysis, Microscopic 18 {/HPF} Abnormal 0-5 [place] [address] DO Work Phone: Calcium, Ionized Levelon Calcium, Ionized Level 1.12 mmol/L See Below [facility] [employer] kori MAYKOR DO Work Phone: Comment on above: Reference Range: 1.1 0 - 1.33 The performance characteristics of ionized calcium tested in heparinized plasma or serum have been validated by the individual laboratory site where testing is performed. Testing on heparinized plasma or serum is not approved by the FDA; however, such approval is not necessary. Calcium, Ionized Level 1.13 mmol/L See Below [facility] kori MAYKOR DO Work Phone: Comment on above: Reference Range: 1.1 0 - 1.33 The performance characteristics of ionized calcium tested in heparinized plasma or serum have been validated by the individual laboratory site where testing is performed. Testing on heparinized plasma or serum is not approved by the FDA; however, such approval is not necessary. Laboratory - Chemistry and C hemistry - challengeon 01-14-2022 Glucose [Mass/Vol] 88 mg/dL 74 - 99 [facility] Sai sheikh 250 DO Work Phone: Glucose [Mass/Vol] 105 mg/dL above high threshold 74 - [address] [facility] Sai padillay 250 DO Work Phone: Glucose [Mass/Vol] 96 mg/dL 74 - 99 [facility] Sai padillay 250 DO Work Phone: Glucose [Mass/Vol] 83 mg/dL 74 - 99 [facility] Becky kori 250 DO Work Phone: Glucose [Mass/Vol] 85 mg/dL 74 - 99 [facility] kori 250 DO Work Phone: Laboratory - Hematology and Cell countson 01-14-2022 Erythrocyte distribution width (RBC) [Ratio] 14.6 % above high threshold See Below [facility] Sai Barry DO Work Phone: Comment on above: Reference Range: 11. 5 - 14.5 Hematocrit (Bld) [Volume fraction] 28.8 % below low threshold See Below [facility] Sai Barry DO Work Phone: Comment on above: Reference Range: 36. 0 - 46.0 Hemoglobin (Bld) [Mass/Vol] 9.8 g/dL below low threshold See Below [facility] Becky kori Jhonny DO Work Phone: Comment on above: Reference Range: 12. 0 - 16.0 MCHC (RBC) [Mass/Vol] 34.0 g/dL See Below [facility] Jhonny DO Work Phone: Comment on above: Reference Range: 32. 0 - 36.0 MCV (RBC) [Entitic vol] 88 fL 80 - 100 [facility] korimercy health DO Work Phone: Platelets (Bld) [#/Vol] 209 10*3/uL 150 - 450 [facility] kori 250 DO Work Phone: RBC (Bld) [#/Vol] 3.26 {x10E12/L} below low threshold See Below [facility] [employer] kori 250 DO Work Phone: Comment on above: Reference Range: 4.0 0 - 5.20 WBC (Bld) [#/Vol] 13.8 10*3/uL above high threshold 4.4 - 11.[address] [facility] [employer] kori 250 DO Work Phone: Erythrocyte distribution width (RBC) [Ratio] 14.6 % above high threshold See Below [facility] [employer] kori 250 DO Work Phone: Comment on above: Reference Range: 11. 5 - 14.5 Hematocrit (Bld) [Volume fraction] 30.4 % below low threshold See Below [facility] [employer] Surikate DO Work Phone: Comment on above: Reference Range: 36. 0 - 46.0 Hemoglobin (Bld) [Mass/Vol] 10.7 g/dL below low threshold See Below [facility] [employer] kori MAYKOR DO Work Phone: Comment on above: Reference Range: 12. 0 - 16.0 MCHC (RBC) [Mass/Vol] 35.2 g/dL See Below [facility] [employer] Surikate DO Work Phone: Comment on above: Reference Range: 32. 0 - 36.0 MCV (RBC) [Entitic vol] 86 fL 80 - 100 [facility] kori 250 DO Work Phone: Platelets (Bld) [#/Vol] 203 10*3/uL 150 - 450 [facility]Gu[facility] CorporationEss[facility]ia Health kori 250 DO Work Phone: RBC (Bld) [#/Vol] 3.52 {x10E12/L} below low threshold See Below [facility] [employer] kori MAYKOR DO Work Phone: Comment on above: Reference Range: 4.0 0 - 5.20 WBC (Bld) [#/Vol] 14.7 10*3/uL above high threshold 4.4 - 11.[address] [facility] [employer]Macarena kori 250 DO Work Phone: Magnesium, Serumon Magnesium [Mass/Vol] 1.89 mg/dL See Below [facility] [employer]Macarena padillay 250 DO Work Phone: Comment on above: Reference Range: 1.6 0 - 2.40 Magnesium [Mass/Vol] 1.97 mg/dL See Below [facility] [employer]Gu[employer] kori 250 DO Work Phone: Comment on above: Reference Range: 1.6 0 - 2.40 No Panel Informationon 01-14 0.0 {/100_WBC} 0.0-0.0 [facility] Scientific and Technical CorporationGuerita kori 250 DO Work Phone: 0.0 {/100_WBC} 0.0-0.0 [facility] kori 250 DO Work Phone: Radiologyon 01-14-2022 XR Chest Single view Normal [facility] [employer] kori 250 DO Work Phone: Renal Function Panelon 01-14 Albumin BCP dye [Mass/Vol] 3.0 g/dL below low threshold 3.4 - 5.0 [facility] kori 250 DO Work Phone: Anion gap [Moles/Vol] 12 mmol/L 10 - 20 [facility] 250 DO Work Phone: Calcium [Mass/Vol] 8.0 mg/dL below low threshold 8.6 - 10.6 [facility] okri 250 DO Work Phone: Chloride [Moles/Vol] 97 mmol/L below low threshold 98 - 107 [facility] 250 DO Work Phone: CO2 [Moles/Vol] 22 mmol/L 21 - 32 [facility] 250 DO Work Phone: Creatinine [Mass/Vol] 0.77 mg/dL See Below [place] [address] DO Work Phone: Comment on above: Reference Range: 0.5 0 - 1.05 Glucose [Mass/Vol] 135 mg/dL above high threshold 74 - 99 [place] [address] DO Work Phone: Phosphate [Mass/Vol] 2.6 mg/dL 2.5 - 4.9 [facility] 250 DO Work Phone: Comment on above: The performance andra acteristics of phosphorus testing in heparinized plasma have been validated by the individual laboratory site where testing is performed. Testing on heparinized plasma is not approved by the FDA; however, such approval is not necessary. Potassium [Moles/Vol] 4.1 mmol/L 3.5 - 5.3 [place] [address] DO Work Phone: Sodium [Moles/Vol] 127 mmol/L below low threshold 136 - 145 [place] [address] DO Work Phone: Urea nitrogen [Mass/Vol] 16 mg/dL 6 - 23 [place] [address] DO Work Phone: Renal Function Panel 78 {mL/min/1.73m2} >90 [place] [address] DO Work Phone: Comment on above: CALCULATIONS OF MOISES MATED GFR ARE PERFORMED USING THE 2020 CKD-EPI STUDY REFIT EQUATION WITHOUT THE RACE VARIABLE FOR THE IDMS-TRACEABLE CREATININE METHODS.https://jasn.asnjournals.org/content///A SN.5172783195 Albumin BCP dye [Mass/Vol] 2.9 g/dL below low threshold 3.4 - 5.0 [place] [address] DO Work Phone: Anion gap [Moles/Vol] 13 mmol/L 10 - 20 [place] [address] DO Work Phone: Calcium [Mass/Vol] 7.8 mg/dL below low threshold 8.6 - 10.6 [facility] kori 250 DO Work Phone: Chloride [Moles/Vol] 98 mmol/L 98 - 107 [facility] 250 DO Work Phone: CO2 [Moles/Vol] 22 mmol/L 21 - 32 [place] [address] DO Work Phone: Creatinine [Mass/Vol] 0.72 mg/dL See Below [place] [address] DO Work Phone: Comment on above: Reference Range: 0.5 0 - 1.05 Glucose [Mass/Vol] 99 mg/dL 74 - 99 [facility] 250 DO Work Phone: Phosphate [Mass/Vol] 2.7 mg/dL 2.5 - 4.9 [facility] 250 DO Work Phone: Comment on above: The performance andra acteristics of phosphorus testing in heparinized plasma have been validated by the individual laboratory site where testing is performed. Testing on heparinized plasma is not approved by the FDA; however, such approval is not necessary. Potassium [Moles/Vol] 4.1 mmol/L 3.5 - 5.3 [place] [address] DO Work Phone: Sodium [Moles/Vol] 129 mmol/L below low threshold 136 - 145 [place] [address] DO Work Phone: Urea nitrogen [Mass/Vol] 16 mg/dL 6 - 23 [place] [address] DO Work Phone: Renal Function Panel 85 {mL/min/1.73m2} >90 [place] [address] DO Work Phone: Comment on above: CALCULATIONS OF MOISES MATED GFR ARE PERFORMED USING THE 2020 CKD-EPI STUDY REFIT EQUATION WITHOUT THE RACE VARIABLE FOR THE IDMS-TRACEABLE CREATININE METHODS.https://jasn.asnjournals.org/content//A .9004482472 Albumin BCP dye [Mass/Vol] 3.0 g/dL below low threshold 3.4 - 5.[address] [facility] [employer] Surikate DO Work Phone: Anion gap [Moles/Vol] 13 mmol/L 10 - 20 [place] [address] DO Work Phone: Calcium [Mass/Vol] 7.9 mg/dL below low threshold 8.6 - 10.6 [place] [address] DO Work Phone: Chloride [Moles/Vol] 97 mmol/L below low threshold 98 - 107 [place] [address] DO Work Phone: CO2 [Moles/Vol] 23 mmol/L 21 - 32 [place] [address] DO Work Phone: Creatinine [Mass/Vol] 0.81 mg/dL See Below [place] [address] DO Work Phone: Comment on above: Reference Range: 0.5 0 - 1.05 Glucose [Mass/Vol] 97 mg/dL 74 - 99 [facility] Surikate DO Work Phone: Phosphate [Mass/Vol] 3.1 mg/dL 2.5 - 4.9 [facility] Surikate DO Work Phone: Comment on above: The performance andra acteristics of phosphorus testing in heparinized plasma have been validated by the individual laboratory site where testing is performed. Testing on heparinized plasma is not approved by the FDA; however, such approval is not necessary. Potassium [Moles/Vol] 4.7 mmol/L 3.5 - 5.3 [facility] korimercy health DO Work Phone: Sodium [Moles/Vol] 128 mmol/L below low threshold 136 - 145 [facility] MAYKOR DO Work Phone: Urea nitrogen [Mass/Vol] 16 mg/dL 6 - [address] [facility] [employer] 250 DO Work Phone: Renal Function Panel 73 {mL/min/1.73m2} >[address] [facility] [employer] 250 DO Work Phone: Comment on above: CALCULATIONS OF MOISES MATED GFR ARE PERFORMED USING THE 2020 CKD-EPI STUDY REFIT EQUATION WITHOUT THE RACE VARIABLE FOR THE IDMS-TRACEABLE CREATININE METHODS.https://jasn.asnjournals.org/content//A SN.8852127785 Activated partial thrombopla stin time (aPTT) in platelet poor plasma by coagulation aOrdered By: Vandana Torres on 01-06-2022 aPTT Coag (PPP) [Time] 61.7 s 25.1-36.5 [facility] Creatinine and Glomerular fi ltration rate.predicted panel (S/P/Bld)Ordered By: Vandana Torres on 01-06-2022 Creatinine [Mass/Vol] 0.78 mg/dL 0.44-1.03 [facility] Estimated glomerular filtrat ion rate (GFR) non- AmericanOrdered By: Vandana Torres on 01-06-2022 GFR/1.73 sq M.predicted among non-blacks MDRD (S/P/Bld) [Vol rate/Area] > 60 mL/Min [facility] No Panel Informationon 01-06 [email or web address] ?RetrieveTestByDateTime?Pa [id number]&Date=&Time=11%3a46%3a43% 3a00&TestType=ECG&Site=1&O utputType=PDF&Ext=PDF [facility] [employer] 250 DO Work Phone: Sinus rhythm with occasional Premature ventricular complexes [facility] [employer] 250 DO Work Phone: Abnormal [facility] [facility] DO Work Phone: [phone] [facility] kori 250 DO Work Phone: [phone] [facility]ori 250 DO Work Phone: [phone] [facility] kori 250 DO Work Phone: [phone] [facility] kori 250 DO Work Phone: [phone] [facility] kori 250 DO Work Phone: [phone] [facility] kori 250 DO Work Phone: [phone] [facility] kori 250 DO Work Phone: [phone] [facility] kori 250 DO Work Phone: [phone] [facility] kori 250 DO Work Phone: [phone] [facility] kori 250 DO Work Phone: [phone] [facility] kori 250 DO Work Phone: [phone] [facility] kori 250 DO Work Phone: [phone] [facility] kori 250 DO Work Phone: No Panel InformationOrdered By: Vandana Torres on 01-06-2022 Estimated GFR () > 60 mL/Min [facility] Comment on above: GFR estimated refere nce range: According to KDOQI guidelines, <60 ml/min/1.73m2 is sufficient to diagnose a patient with chronic kidney disease. Pharmacy Creatinine Clearance (Chem 49.24 [facility] Serum or plasma anion gap de terminationOrdered By: Vandana Torres on 01-06-2022 Anion gap [Moles/Vol] 11.8 mmol/L 6.0-15.0 [facility] Serum or plasma calcium rashmi urement (mass/volume)Ordered By: Vandana Torres on 01-06-2022 Calcium [Mass/Vol] 8.5 mg/dL 8.2-10.2 [facility] Serum or plasma chloride reece surement (moles/volume)Ordered By: Vandana Torres on 01-06-2022 Chloride [Moles/Vol] 103 mmol/L 95-114 [facility] Serum or plasma glucose rashmi urement (mass/volume)Ordered By: Vandana Torres on 01-06-2022 Glucose [Mass/Vol] 108 mg/dL 70-100 [facility] Comment on above: ADA recommended refe rence rangeRandom Glucose Reference Range is dependent on time and content of last meal. Glucose of more than 200 mg/dL in a nonstressed, ambulatory subject supports the diagnosis of Diabetes Mellitus. Serum or plasma potassium me asurement (moles/volume)Ordered By: Vandana Torres on 01-06-2022 Potassium [Moles/Vol] 4.1 mmol/L 3.5-5.1 [facility] Serum or plasma sodium measu rement (moles/volume)Ordered By: Vandana Torres on 01-06-2022 Sodium [Moles/Vol] 131 mmol/L 136-146 [facility] Serum or plasma total carbon dioxide measurement (moles/volume)Ordered By: Vandana Torres on 01-06-2022 CO2 [Moles/Vol] 20.3 mmol/L 22.0-30.0 [facility] Serum or plasma urea nitroge n measurement (mass/volume)Ordered By: Vandana Torres on 01-06-2022 Urea nitrogen [Mass/Vol] 11 mg/dL 9- [facility] Basophils Auto (Bld) [#/Vol] Ordered By: Gold Patrick on 01-05-2022 Basophils (Bld) [#/Vol] 0.1 10*3/uL 0.0-0.2 [facility] Basophils/100 WBC Auto (Bld) Ordered By: Gold Patrick on 01-05-2022 Basophils/100 WBC (Bld) 1.0 % . [facility] Eosinophils Auto (Bld) [#/Vo l]Ordered By: Gold Patrick on 01-05-2022 Eosinophils (Bld) [#/Vol] 0.2 10*3/uL 0.0-0.45 [facility] Eosinophils/100 WBC Auto (Bl d)Ordered By: Gold Patrick on 01-05-2022 Eosinophils/100 WBC (Bld) 2.9 % . [facility] Erythrocyte distribution wid th Auto (RBC) [Ratio]Ordered By: Gold Patrick on 01-05-2022 Erythrocyte distribution width (RBC) [Ratio] 14.6 % 11.9-15.3 [facility] Hematocrit Auto (Bld) [Volum e fraction]Ordered By: Gold Patrick on 01-05-2022 Hematocrit (Bld) [Volume fraction] 38.3 % 34.0-46.4 [facility] Hemoglobin [Mass/volume] in BloodOrdered By: Gold Patrick on 01-05-2022 Hemoglobin (Bld) [Mass/Vol] 12.8 g/dL 11.8-15.4 [facility] Laboratory - CoagulationOrde red By: Gold Patrick on 01-05-2022 PT Coag (PPP) [Time] 12.4 s 9.0-12.9 [facility] - Hematology and Cell countsOrdered By: Gold Patrick on 01-05-2022 Nucleated RBC/100 WBC (Bld) [Ratio] 0.0 % 0-0.5 [facility] Leukocytes [#/volume] in Blo od by Automated countOrdered By: Gold Patrick on 01-05-2022 WBC (Bld) [#/Vol] 7.9 10*3/uL 4.5-11.0 [facility] Lymphocytes Auto (Bld) [#/Vo l]Ordered By: Gold Patrick on 01-05-2022 Lymphocytes (Bld) [#/Vol] 2.0 10*3/uL 1.00-4.8 [facility] Lymphocytes/100 WBC Auto (Bl d)Ordered By: Gold Patrick on 01-05-2022 Lymphocytes/100 WBC (Bld) 25.1 % . [facility] MCH Auto (RBC) [Entitic mass ]Ordered By: Gold Patrick on 01-05-2022 MCH (RBC) [Entitic mass] 28.8 pg 24.7-34.3 [facility] MCHC Auto (RBC) [Mass/Vol]Or dered By: Gold Patrick on 01-05-2022 MCHC (RBC) [Mass/Vol] 33.4 g/dL 32.0-35.0 [facility] MCV Auto (RBC) [Entitic vol] Ordered By: Gold Patrick on 01-05-2022 MCV (RBC) [Entitic vol] 86.4 fL 80-100 [facility] Monocytes Auto (Bld) [#/Vol] Ordered By: Gold Patrick on 01-05-2022 Monocytes (Bld) [#/Vol] 0.7 10*3/uL 0.0-0.8 [facility] Monocytes/100 WBC Auto (Bld) Ordered By: Gold Patrick on 01-05-2022 Monocytes/100 WBC (Bld) 9.2 % . [facility] Neutrophils Auto (Bld) [#/Vo l]Ordered By: Gold Patrick on 01-05-2022 Neutrophils (Bld) [#/Vol] 4.9 10*3/uL 1.8-7.7 [facility] Neutrophils/100 WBC Auto (Bl d)Ordered By: Gold Patrick on 01-05-2022 Neutrophils/100 WBC (Bld) 61.8 % . [facility] No Panel InformationOrdered By: Vandana Torres on 01-05-2022 Urine Osmolality 211 mosm 250-900 [facility] Platelet mean volume Auto (B ld) [Entitic vol]Ordered By: Gold Patrick on 01-05-2022 Platelet mean volume (Bld) [Entitic vol] 9.1 fL 6.3-10.7 [facility] Platelet poor plasma interna tional normalized ratio (INR) by coagulation assay (relatOrdered By: Gold Patrick on 01-05-2022 INR Coag (PPP) [Relative time] 1.1 {INR} [facility] Comment on above: INR Therapeutic Rang e A) Pre- and Peroperative OAT started two weeks before surgery. NOT HIP SURGERY: 1.5 - 2.5 HIP SURGERY: 2 - 3B) Primary and secondary prevention of venous THROMBOSIS: 2 - 3C) Active venous thrombosis, pulmonary embolismand prevention of recurrent venous thrombosis: 2 - 3D) Prevention of arterial thromboembolismincluding patients with mechanical heart valves: 3 - 4.5 Platelets Auto (Bld) [#/Vol] Ordered By: Gold Patrick on 01-05-2022 Platelets (Bld) [#/Vol] 210 10*3/uL 150-450 [facility] RBC Auto (Bld) [#/Vol]Ordere d By: Gold Patrick on 01-05-2022 RBC (Bld) [#/Vol] 4.43 10*6/uL 3.60-5.00 [facility] Urine sodium measurement (mo les/volume)Ordered By: Vandana Torres on 01-05-2022 Sodium (U) [Moles/Vol] 30.0 mmol/L [facility] Comment on above: No reference range e stablished Cholesterol [Mass/volume] in Serum or PlasmaOrdered By: Jaya Bae on 01-03-2022 Cholesterol [Mass/Vol] 196 mg/dL 140-200 [facility] Comment on above: Chol less than 200 m g/dl low riskChol 201-239 mg/dl borderline riskChol 240 mg/dl and greater high risk Cholesterol in LDL Calc [Mas s/Vol]Ordered By: Jaya Bae on 01-03-2022 Cholesterol in LDL [Mass/Vol] 133 mg/dL 0-100 [facility] Comment on above: LDL ATP III CLASSIFI CATIONLDL less than 100 mg/dL OptimalLDL 100-129 mg/dL Near or above optimalLDL 130-159 mg/dL Borderline highLDL 160-189 mg/dL HighLDL greater than 189 mg/dL Very high Cholesterol in VLDL Calc [Ma ss/Vol]Ordered By: Jaya Bae on 01-03-2022 Cholesterol in VLDL [Mass/Vol] 14 mg/dL [facility] Laboratory - Chemistry and C hemistry - challengeOrdered By: Jaya Bae on 01-03-2022 Cobalamin (Vitamin B12) [Mass/Vol] 458 pg/mL 180-914 [facility] Magnesium [Mass/Vol] 2.0 mg/dL 1.6-2.6 [facility] No Panel InformationOrdered By: Jaya Bae on 01-03-2022 25-Hydroxy Vitamin D Total 42.8 ng/mL 30-100 [facility] Comment on above: VITAMIN D STATUS 25( [place])VITAMIN D RANGE (ng/mL) Deficient <20 Insufficient 20 to <30Sufficient 30 to 100Reference: Kasey DO,Ranjeet PAGE, Earl REYES, et al. Evaluation,treatment, and prevention of vitamin D deficiency; an Endocrine Society clinical practice guideline. JCEM. 2010; 96(7):1911-30. Serum or plasma high density lipoprotein (HDL) cholesterol measurementOrdered By: Jaya Bae on 01-03-2022 Cholesterol in HDL [Mass/Vol] 49 mg/dL 35-85 [facility] Comment on above: HDL CHOL ATP-III CLA SSIFICATION Cardiovascular RiskHDL > or equal to 60 mg/dL LOWHDL < 40 mg/dL HIGH Serum or plasma total choles terol/high density lipoprotein (HDL) cholesterol mass ratOrdered By: Jaya Bae on 01-03-2022 Cholesterol.total/Chol esterol in HDL [Mass ratio] 4.0 {ratio} <5.0 [facility] TSH DL <= 0.005 mIU/L QnOrde red By: Jaya Bae on 01-03-2022 TSH Qn 0.04 m[IU]/L 0.45-5.33 [facility] Triglyceride [Mass/volume] i n Serum or PlasmaOrdered By: Jaya Bae on 01-03-2022 Triglyceride [Mass/Vol] 70 mg/dL 35-149 [facility] Comment on above: TRIG ATP III CLASSIF ICATIONTRIG less than 150 mg/dL NormalTRIG 150-199 mg/dL Borderline highTRIG 200-500 mg/dL High TRIG greater than 500 mg/dL Very highStandard traceable to the Center for Disease Conrtrol and Prevention (CDC) test method. Troponin I.cardiac [Mass/vol ume] in Serum or Plasma by High sensitivity methodOrdered By: Jaya Bae on 01-03-2022 Troponin I.cardiac High sensitivity method [Mass/Vol] 7668 pg/mL 0-15 [facility] Comment on above: Results calledat 062 5 on 01/03/22 BNPon 01-02-2022 Natriuretic peptide B (Bld) [Mass/Vol] 971.0 pg/mL Normal <=1,800.0 [facility] Comment on above: Performed By: #### C MADM, BNP, CMP #### [facility] [address] [address] [address] Marco Greer Body fluid albumin measureme nt (mass/volume)Ordered By: Jaya Bae on 01-02-2022 Albumin (Body fld) [Mass/Vol] 3.1 g/dL 3.2-5.5 [facility] CARDIAC BALJIT ADMITon 022 CK [Catalytic activity/Vol] 103 U/L Normal 26-192 [facility] Comment on above: Performed By: #### C MADM, BNP, CMP #### [facility] [address] [address] [address] Marco Greer CK.MB [Mass/Vol] 12.75 ng/mL Critically high <=3.60 [facility] Comment on above: Performed By: #### C MADM, BNP, CMP #### [facility] [address] [address] [address] Marco Greer HSTROP 2985.3 pg/mL Critically high 4.0-51.3 [facility] Comment on above: Result Comment: CUT- OFF POINTS HAVE BEEN ESTABLISHED BASED ON THE FOURTH UNIVERSAL DEFINITIONS OF MYOCARDIAL INFARCTION. THE UPPER REFERENCE LIMIT (URL) OF TROPONIN, DEFINED THE 99TH PERCENTILE OF cTnI DISTRIBUTION IN A REFERENCE POPULATION, HAS BEEN CONFIRMED THE DECISION THRESHOLD FOR OR DIAGNOSIS. Performed By: #### C MADM, BNP, CMP #### [facility] [address] [address] [address] Marco Greer MANINDER 282 ng/mL Critically high 9-82 [facility] Comment on above: Performed By: #### C MADM, BNP, CMP #### [facility] [address] [place] [address] Dr. Marco Greer CBC AUTO DIFFon 01-02-2022 BASO # 0.0 103/ul Normal 0.0-0.1 [facility] Comment on above: Performed By: #### C MP #### [facility] [address] [place] [address] Dr. Marco Greer Basophils/100 WBC (Bld) 0.4 % Normal 0.2-2.0 [facility] Comment on above: Performed By: #### C MP #### [facility] [address] [place] [address] Dr. Marco Greer EO # 0.1 103/ul Normal 0.0-0.7 [facility] Comment on above: Performed By: #### C MP #### [facility] [address] [place] [address] Dr. Marco Greer Eosinophils/100 WBC (Bld) 0.6 % Critically low 0.9-7.0 [facility] Comment on above: Performed By: #### C MP #### [facility] [address] [place] [address] Dr. Marco Greer Erythrocyte distribution width (RBC) [Ratio] 14.3 % Normal 11.0-15.0 [facility] Comment on above: Performed By: #### C MP #### [facility] [address] [place] [address] Dr. Marco Greer Hematocrit (Bld) [Volume fraction] 41.3 % Normal 36.0-48.0 [facility] Comment on above: Performed By: #### C MP #### [facility] [address] [place] [address] Dr. Marco Greer Hemoglobin (Bld) [Mass/Vol] 13.6 g/dL Normal 12.0-16.0 [facility] Comment on above: Performed By: #### C MP #### [facility] [address] [place] [address] Dr. Marco Greer IG # 0.04 10e3/ul Critically high 0.00-0.03 [facility] Comment on above: Performed By: #### C MP #### [facility] [address] [place] [address] Dr. Marco Greer IG % 0.4 % Normal 0.0-0.5 [facility] Comment on above: Performed By: #### C MP #### [facility] [address] [place] [address] Dr. Marco Greer LYMPH # 1.6 103/ul Normal 1.2-3.8 [facility] Comment on above: Performed By: #### C MP #### [facility] [address] [place] [address] Dr. Marco Greer Lymphocytes/100 WBC (Bld) 15.9 % Critically low 20.5-60.0 [facility] Comment on above: Performed By: #### C MP #### [facility] [address] [place] [address] Dr. Marco Greer MANUAL DIFF REQ NO Normal [facility] Comment on above: Performed By: #### C MP #### [facility] [address] [place] [address] Dr. Marco Greer MCH (RBC) [Entitic mass] 28.7 pg Normal 26.7-34.0 [facility] Comment on above: Performed By: #### C MP #### [facility] [address] [place] [address] Dr. Marco Greer MCHC (RBC) [Mass/Vol] 32.9 g/dL Normal 29.9-35.2 [facility] Comment on above: Performed By: #### C MP #### [facility] [address] [place] [address] Dr. Marco Greer MCV (RBC) [Entitic vol] 87.1 fL Normal 81.0-99.0 [facility] Comment on above: Performed By: #### C MP #### [facility] [address] [address] [address] Marco Greer MONO # 0.7 103/ul Normal 0.3-0.8 [facility] Comment on above: Performed By: #### C MP #### [facility] [address] [place] [address] Dr. Marco Greer Monocytes/100 WBC (Bld) 7.1 % Normal 1.7-12.0 [facility] Comment on above: Performed By: #### C MP #### [facility] [address] [place] [address] Dr. Marco Greer NEUT # 7.8 103/ul Critically high 1.4-6.5 [facility] Comment on above: Performed By: #### C MP #### [facility] [address] [place] [address] Dr. Marco Greer Neutrophils/100 WBC (Bld) 75.6 % Critically high 43.0-75.0 [facility] Comment on above: Performed By: #### C MP #### [facility] [address] [place] [address] Dr. Marco Greer Platelet mean volume (Bld) [Entitic vol] 10.5 fL Normal 9.5-13.5 [facility] Comment on above: Performed By: #### C MP #### [facility] [address] [place] [address] Dr. Marco Greer PLT 233 103/ul Normal 150-450 [facility] Comment on above: Performed By: #### C MP #### [facility] [address] [place] [address] Dr. Marco Greer RBC 4.74 106/ul Normal 4.20-5.40 [facility] Comment on above: Performed By: #### C MP #### [facility] [address] [place] [address] Dr. Marco Greer WBC 10.3 103/ul Normal 4.0-11.0 [facility] Comment on above: Performed By: #### C MP #### [facility] [address] [place] [address] HEAD WO CONon 01-02-[address] HEAD WO CON CT HEAD WITHOUT CONT RAST. INDICATION: Fall. COMPARISON: 08/17/2020 TECHNIQUE: Axial CT head images from the skull base to the vertex without IV contrast were acquired. Coronal and sagittal reformats were also obtained. FINDINGS: EXTRA-AXIAL SPACE: Age-appropriate ventricles. No acute extra-axial collection. No extra-axial mass. No midline shift. CEREBRUM: There are areas of periventricular and deep white matter low-attenuation, which is nonspecific but likely reflective of chronic microvascular ischemic disease.. No CT evidence of acute large territorial cortical infarct, hemorrhage or mass effect. CEREBELLUM: No focal abnormality. No CT evidence of acute infarct, hemorrhage or mass effect. BRAINSTEM: No focal abnormality. No CT evidence of acute infarct, hemorrhage or mass effect. EXTRACRANIAL STRUCTURES. The paranasal sinuses are clear. Mastoid air cells are clear. Orbits are unremarkable. No discrete pituitary mass. Intact calvarium. IMPRESSION: No acute intracranial abnormality. Electronically authenticated by: IRON ALANIS Date: 2022-01-02 13:37 Normal [facility] Covid-19 PCR (CVDTB)on 12-14 SARS-CoV-2 (COVID-19) RNA NADER+probe Ql (Unsp spec) Not detected Normal NOT DETECTED [facility] Comment on above: Result Comment: When diagnostic testing is negative, the possibility of a false negative should be considered in the context of a patient's recent exposures and the presence of clinical signs and symptoms consistent with SARS-CoV-2. This test is not yet approved or cleared by the [place] FDA. When there are no FDA-approved or cleared tests available, and other criteria are met, FDA can make tests available under an emergency access mechanism called an Emergency Use Authorization (EUA). The EUA for this test is supported by the [place] of Health and Human Service's declaration that circumstances exist to justify the emergency use of in vitro diagnostics for the detection and/or diagnosis of the virus that causes COVID-19. This EUA will remain in effect for the duration of the COVID-19 declaration justifying emergency of IVDs, unless it is terminated or revoked by the FDA (after which the test may no longer be used). Performed By: #### C MADM, BNP, CMP #### [facility] [address] [address] [address] Marco Greer Globulin Calc (S) [Mass/Vol] Ordered By: Jaya Bae on 01-02-2022 Globulin (S) [Mass/Vol] 3.9 g/dL [facility] PROF 14(COMP METB)on 022 Albumin [Mass/Vol] 3.0 g/dL Critically low 3.4-5.0 [facility] Comment on above: Performed By: #### C MADM, BNP, CMP #### [facility] [address] [address] [address] Marco Greer Albumin/Globulin [Mass ratio] 0.7 {ratio} Normal [facility] Comment on above: Performed By: #### C MADM, BNP, CMP #### [facility] [address] [place] [address] Dr. Marco Greer ALP [Catalytic activity/Vol] 68 U/L Normal 46-116 [facility] Comment on above: Performed By: #### C MADM, BNP, CMP #### [facility] [address] [address] [address] Marco Greer ALT [Catalytic activity/Vol] 19 U/L Normal 14-59 [facility] Comment on above: Performed By: #### C MADM, BNP, CMP #### [facility] [address] [address] [address] Marco Greer Anion gap [Moles/Vol] 11.2 mmol/L Normal [facility] Comment on above: Performed By: #### C MADM, BNP, CMP #### [facility] [address] [address] [address] Marco Greer AST [Catalytic activity/Vol] 24 U/L Normal 15-37 [facility] Comment on above: Performed By: #### C MADM, BNP, CMP #### [facility] [address] [address] [address] Marco Greer Bilirubin [Mass/Vol] 0.4 mg/dL Normal 0.2-1.0 [facility] Comment on above: Performed By: #### C MADM, BNP, CMP #### [facility] [address] [address] [address] Marco Greer Calcium [Mass/Vol] 9.1 mg/dL Normal 8.5-10.1 [facility] Comment on above: Performed By: #### C MADM, BNP, CMP #### [facility] [address] [place] [address] Dr. Marco Greer Chloride [Moles/Vol] 101 mmol/L Normal 98-107 [facility] Comment on above: Performed By: #### C MADM, BNP, CMP #### [facility] [address] [place] [address] Dr. Marco Greer CO2 [Moles/Vol] 24.1 mmol/L Normal 21.0-32.0 [facility] Comment on above: Performed By: #### C MADM, BNP, CMP #### [facility] [address] [place] [address] Dr. Marco Greer Creatinine [Mass/Vol] 0.99 mg/dL Normal 0.55-1.02 [facility] Comment on above: Performed By: #### C MADM, BNP, CMP #### [facility] [address] [place] [address] Dr. Marco Greer EGFR-AF [place]IZ[place] >60 Normal >=60 [facility] Comment on above: Performed By: #### C MADM, BNP, CMP #### [facility] [address] [place] [address] Dr. Marco Greer EGFR-NON AF CITIZEN OF [place] 54 mL/min/1.73m2 Critically low >=60 [facility] Comment on above: Performed By: #### C MADM, BNP, CMP #### [facility] [address] [place] [address] Dr. Marco Greer Globulin (S) [Mass/Vol] 4.5 g/dL Normal [facility] Comment on above: Performed By: #### C MADM, BNP, CMP #### [facility] [address] [place] [address] Dr. Marco Greer Glucose [Mass/Vol] 145 mg/dL Critically high 74-106 T [facility] Comment on above: Performed By: #### C MADM, BNP, CMP #### [facility] [address] [place] [address] Dr. Marco Greer Potassium [Moles/Vol] 3.3 mmol/L Critically low 3.5-5.1 [facility] Comment on above: Performed By: #### C MADM, BNP, CMP #### [facility] [address] [place] [address] Dr. Marco Greer Protein [Mass/Vol] 7.5 g/dL Normal 6.4-8.2 [facility] Comment on above: Performed By: #### C MADM, BNP, CMP #### [facility] [address] [place] [address] Dr. Marco Greer Sodium [Moles/Vol] 133 mmol/L Critically low 136-145 [facility] Comment on above: Performed By: #### C MADM, BNP, CMP #### [facility] [address] [place] [address] Dr. Marco Greer Urea nitrogen [Mass/Vol] 16.0 mg/dL Normal 7.0-18.0 [facility] Comment on above: Performed By: #### C MADM, BNP, CMP #### [facility] [address] [place] [address] Dr. Marco Greer Urea nitrogen/Creatinine [Mass ratio] 16.2 mg/mg Normal [facility] Comment on above: Performed By: #### C MADM, BNP, CMP #### [facility] [address] [place] [address] Dr. Marco Greer PROTIMEon 01-02-2022 INR Coag (PPP) [Relative time] 1.02 {INR} Normal [facility] Comment on above: Performed By: #### C MADM, BNP, CMP #### [facility] [address] [place] [address] Dr. Marco Greer INR GUIDELINES SEE BELOW Normal [facility] Comment on above: Result Comment: YULIET RED INR: 2.0 - 3.0 CONDITIONS NOT LISTED BELOW 2.5 - 3.5 FOR PROSTHETIC HEART VALVE REPLACEMENT 2.5 - 3.5 RECURRENT THROMBOSIS Performed By: #### C MADM, BNP, CMP #### [facility] [address] [place], [place] [address] Dr. Marco Greer PT Coag (PPP) [Time] 11.0 s Normal 9.0-11.6 [facility] Comment on above: Performed By: #### C MADM, BNP, CMP #### [facility] [address] [place], [place] [address] Dr. Marco Greer PTTon 01-02-2022 aPTT Coag (Bld) [Time] 31.0 s Normal 22.3-36.2 [facility] Comment on above: Performed By: #### C MADM, BNP, CMP #### [facility] [address] [place], [place] [address] Dr. Marco Greer Protein [Mass/volume] in Ser um or PlasmaOrdered By: Jaya Bae on 01-02-2022 Protein [Mass/Vol] 7.0 g/dL 6.1-7.9 [facility] Serum or plasma alanine kenny otransferase measurement without P-5'-P (enzymatic activiOrdered By: Jaya Bae on 01-02-2022 ALT No additional P-5'-P [Catalytic activity/Vol] 20 U/L [facility] Serum or plasma albumin/glob ulin mass ratioOrdered By: Jaya Bae on 01-02-2022 Albumin/Globulin [Mass ratio] 0.8 {ratio} [facility] Serum or plasma alkaline lisy sphatase measurement (enzymatic activity/volume)Ordered By: Jaya Bae on 01-02-2022 ALP [Catalytic activity/Vol] 58 U/L 92 [facility] Serum or plasma aspartate am inotransferase measurement (enzymatic activity/volume)Ordered By: Jaya Bae on 01-02-2022 AST [Catalytic activity/Vol] 59 U/L [facility] Serum or plasma total biliru bin measurement (mass/volume)Ordered By: Jaya Bae on 01-02-2022 Bilirubin [Mass/Vol] 0.6 mg/dL 0.3-1.2 [facility] XR CHEST 1 Von 01-02-2022 XR CHEST 1 V EXAMINATION: XR CHES T 1 V HISTORY: CHEST PAIN, UNSPECIFIED COMPARISON: 06/19/2021 TECHNIQUE: AP portable erect FINDINGS: LUNGS: No significant pulmonary parenchymal abnormalities. VASCULATURE: No increased pulmonary vasculature. PLEURA: No pneumothorax, effusion, or pleural thickening. CARDIAC: No cardiomegaly or cardiac silhouette abnormality. MEDIASTINUM: No visible mass or adenopathy. BONES: No fracture or visible bone lesion. OTHER: Negative. IMPRESSION: No acute disease. Electronically authenticated by: BUD BROUSSARD Date: 2022-01-02 13:42 Normal [facility] Albumin [Mass/volume] in Ser um or PlasmaOrdered By: Brianda Harris on 11-26-2021 Albumin [Mass/Vol] 3.1 g/dL 3.2-5.5 [facility] Basophils Auto (Bld) [#/Vol] Ordered By: Brianda Harris on 11-26-2021 Basophils (Bld) [#/Vol] 0.1 10*3/uL 0.0-0.2 [facility] Basophils/100 WBC Auto (Bld) Ordered By: Brianda Harris on 11-26-2021 Basophils/100 WBC (Bld) 0.4 % . [facility] Creatinine and Glomerular fi ltration rate.predicted panel (S/P/Bld)Ordered By: Brianda Harris on 11-26-2021 Creatinine [Mass/Vol] 0.69 mg/dL 0.44-1.03 [facility] Eosinophils Auto (Bld) [#/Vo l]Ordered By: Brianda Harris on 11-26-2021 Eosinophils (Bld) [#/Vol] 0.0 10*3/uL 0.0-0.45 [facility] Eosinophils/100 WBC Auto (Bl d)Ordered By: Brianda Harris on 11-26-2021 Eosinophils/100 WBC (Bld) 0.1 % . [facility] Erythrocyte distribution wid th Auto (RBC) [Ratio]Ordered By: Brianda Harris on 11-26-2021 Erythrocyte distribution width (RBC) [Ratio] 14.1 % 11.9-15.3 [facility] Erythrocyte sedimentation ra te by Photometric methodOrdered By: Brianda Harris on 11-26-2021 ESR Photometric method (Bld) [Velocity] 78 mm/hr 0-29 [facility] Estimated glomerular filtrat ion rate (GFR) non- AmericanOrdered By: Brianda Harris on 11-26-2021 GFR/1.73 sq M.predicted among non-blacks MDRD (S/P/Bld) [Vol rate/Area] > 60 mL/Min [facility] Globulin Calc (S) [Mass/Vol] Ordered By: Brianda Harris on 11-26-2021 Globulin (S) [Mass/Vol] 4.1 g/dL [facility] Hematocrit Auto (Bld) [Volum e fraction]Ordered By: Brianda Harris on 11-26-2021 Hematocrit (Bld) [Volume fraction] 40.4 % 34.0-46.4 [facility] Hemoglobin [Mass/volume] in BloodOrdered By: Brianda Harris on 11-26-2021 Hemoglobin (Bld) [Mass/Vol] 13.2 g/dL 11.8-15.4 [facility] Laboratory - Hematology and Cell countsOrdered By: Brianda Harris on 11-26-2021 Nucleated RBC/100 WBC (Bld) [Ratio] 0.1 % 0-0.5 [facility] Leukocytes [#/volume] in Blo od by Automated countOrdered By: Brianda Harris on 11-26-2021 WBC (Bld) [#/Vol] 15.8 10*3/uL 4.5-11.0 [facility] Lymphocytes Auto (Bld) [#/Vo l]Ordered By: Brianda Harris on 11-26-2021 Lymphocytes (Bld) [#/Vol] 1.2 10*3/uL 1.00-4.8 [facility] Lymphocytes/100 WBC Auto (Bl d)Ordered By: Brianda Harris on 11-26-2021 Lymphocytes/100 WBC (Bld) 7.8 % . [facility] MCH Auto (RBC) [Entitic mass ]Ordered By: Brianda Harris on 11-26-2021 MCH (RBC) [Entitic mass] 28.2 pg 24.7-34.3 [facility] MCHC Auto (RBC) [Mass/Vol]Or dered By: Brianda Harris on 11-26-2021 MCHC (RBC) [Mass/Vol] 32.6 g/dL 32.0-35.0 [facility] MCV Auto (RBC) [Entitic vol] Ordered By: Brianda Harris on 11-26-2021 MCV (RBC) [Entitic vol] 86.4 fL 80-100 [facility] Monocytes Auto (Bld) [#/Vol] Ordered By: Brianda Harris on 11-26-2021 Monocytes (Bld) [#/Vol] 0.8 10*3/uL 0.0-0.8 [facility] Monocytes/100 WBC Auto (Bld) Ordered By: Brianda Harris on 11-26-2021 Monocytes/100 WBC (Bld) 5.0 % . [facility] Neutrophils Auto (Bld) [#/Vo l]Ordered By: Brianda Harris on 11-26-2021 Neutrophils (Bld) [#/Vol] 13.7 10*3/uL 1.8-7.7 [facility] Neutrophils/100 WBC Auto (Bl d)Ordered By: Brianda Harris on 11-26-2021 Neutrophils/100 WBC (Bld) 86.7 % . [facility] No Panel InformationOrdered By: Brianda Harris on 11-26-2021 Estimated GFR () > 60 mL/Min [facility] Comment on above: GFR estimated refere nce range: According to KDOQI guidelines, <60 ml/min/1.73m2 is sufficient to diagnose a patient with chronic kidney disease. Pharmacy Creatinine Clearance (Chem N/A [facility] Platelet mean volume Auto (B ld) [Entitic vol]Ordered By: Brianda Harris on 11-26-2021 Platelet mean volume (Bld) [Entitic vol] 9.3 fL 6.3-10.7 [facility] Platelets Auto (Bld) [#/Vol] Ordered By: Brianda Harris on 11-26-2021 Platelets (Bld) [#/Vol] 277 10*3/uL 150-450 [facility] Protein [Mass/volume] in Ser um or PlasmaOrdered By: Brianda Harris on 11-26-2021 Protein [Mass/Vol] 7.2 g/dL 6.1-7.9 [facility] RBC Auto (Bld) [#/Vol]Ordere d By: Brianda Harris on 11-26-2021 RBC (Bld) [#/Vol] 4.68 10*6/uL 3.60-5.00 [facility] Serum or plasma alanine kenny otransferase measurement without P-5'-P (enzymatic activiOrdered By: Brianda Harris on 11-26-2021 ALT No additional P-5'-P [Catalytic activity/Vol] 20 U/L 10-60 [facility] Serum or plasma albumin/glob ulin mass ratioOrdered By: Brianda Harris on 11-26-2021 Albumin/Globulin [Mass ratio] 0.8 {ratio} [facility] Serum or plasma alkaline lisy sphatase measurement (enzymatic activity/volume)Ordered By: Brianda Harris on 11-26-2021 ALP [Catalytic activity/Vol] 60 U/L 32-92 [facility] Serum or plasma anion gap de terminationOrdered By: Brianda Harris on 11-26-2021 Anion gap [Moles/Vol] 18.5 mmol/L 6.0-15.0 [facility] Serum or plasma aspartate am inotransferase measurement (enzymatic activity/volume)Ordered By: Brianda Harris on 11-26-2021 AST [Catalytic activity/Vol] 28 U/L 10-42 [facility] Serum or plasma calcium rashmi urement (mass/volume)Ordered By: Brianda Harris on 11-26-2021 Calcium [Mass/Vol] 9.1 mg/dL 8.2-10.2 [facility] Serum or plasma chloride reece surement (moles/volume)Ordered By: Brianda Harris on 11-26-2021 Chloride [Moles/Vol] 90 mmol/L 95-114 [facility] Serum or plasma glucose rashmi urement (mass/volume)Ordered By: Brianda Harris on 11-26-2021 Glucose [Mass/Vol] 93 mg/dL 70-100 [facility] Comment on above: ADA recommended refe rence rangeRandom Glucose Reference Range is dependent on time and content of last meal. Glucose of more than 200 mg/dL in a nonstressed, ambulatory subject supports the diagnosis of Diabetes Mellitus. Serum or plasma potassium me asurement (moles/volume)Ordered By: Brianda Harris on 11-26-2021 Potassium [Moles/Vol] 3.7 mmol/L 3.5-5.1 [facility] Serum or plasma sodium measu rement (moles/volume)Ordered By: Brianda Harris on 11-26-2021 Sodium [Moles/Vol] 127 mmol/L 136-146 [facility] Serum or plasma total biliru bin measurement (mass/volume)Ordered By: Brianda Harris on 11-26-2021 Bilirubin [Mass/Vol] 0.3 mg/dL 0.3-1.2 [facility] Serum or plasma total carbon dioxide measurement (moles/volume)Ordered By: Brianda Harris on 11-26-2021 CO2 [Moles/Vol] 22.2 mmol/L 22.0-30.0 [facility] Serum or plasma urea nitroge n measurement (mass/volume)Ordered By: Brianda Harris on 11-26-2021 Urea nitrogen [Mass/Vol] 13 mg/dL 9-23 [facility] CBC AUTO DIFFon 08-25-2021 BASO # 0.0 103/ul Normal 0.0-0.1 [facility] Comment on above: Performed By: #### C MADM, BNP, CMP #### [facility] [address] [address] [address] Marco Greer Basophils/100 WBC (Bld) 0.8 % Normal 0.2-2.0 [facility] Comment on above: Performed By: #### C MADM, BNP, CMP #### [facility] [address] [place] [address] Dr. Marco Greer EO # 0.2 103/ul Normal 0.0-0.7 [facility] Comment on above: Performed By: #### C MADM, BNP, CMP #### [facility] [address] [place] [address] Dr. Marco Greer Eosinophils/100 WBC (Bld) 4.0 % Normal 0.9-7.0 [facility] Comment on above: Performed By: #### C MADM, BNP, CMP #### [facility] [address] [place] [address] Dr. Marco Greer Erythrocyte distribution width (RBC) [Ratio] 14.7 % Normal 11.0-15.0 [facility] Comment on above: Performed By: #### C MADM, BNP, CMP #### [facility] [address] [place] [address] Dr. Marco Greer Hematocrit (Bld) [Volume fraction] 40.4 % Normal 36.0-48.0 [facility] Comment on above: Performed By: #### C MADM, BNP, CMP #### [facility] [address] [place] [address] Dr. Marco Greer Hemoglobin (Bld) [Mass/Vol] 13.3 g/dL Normal 12.0-16.0 [facility] Comment on above: Performed By: #### C MADM, BNP, CMP #### [facility] [address] [place] [address] Dr. Marco Greer IG # 0.01 10e3/ul Normal 0.00-0.03 [facility] Comment on above: Performed By: #### C MADM, BNP, CMP #### [facility] [address] [place] [address] Dr. Marco Greer IG % 0.2 % Normal 0.0-0.5 [facility] Comment on above: Performed By: #### C MADM, BNP, CMP #### [facility] [address] [place] [address] Dr. Marco Greer LYMPH # 1.7 103/ul Normal 1.2-3.8 [facility] Comment on above: Performed By: #### C MADM, BNP, CMP #### [facility] [address] [place] [address] Dr. Marco Greer Lymphocytes/100 WBC (Bld) 36.1 % Normal 20.5-60.0 [facility] Comment on above: Performed By: #### C MADM, BNP, CMP #### [facility] [address] [place] [address] Dr. Marco Greer MANUAL DIFF REQ NO Normal [facility] Comment on above: Performed By: #### C MADM, BNP, CMP #### [facility] [address] [place] [address] Dr. Marco Greer MCH (RBC) [Entitic mass] 28.9 pg Normal 26.7-34.0 [facility] Comment on above: Performed By: #### C MADM, BNP, CMP #### [facility] [address] [place] [address] Dr. Marco Greer MCHC (RBC) [Mass/Vol] 32.9 g/dL Normal 29.9-35.2 [facility] Comment on above: Performed By: #### C MADM, BNP, CMP #### [facility] [address] [place] [address] Dr. Marco Greer MCV (RBC) [Entitic vol] 87.8 fL Normal 81.0-99.0 [facility] Comment on above: Performed By: #### C MADM, BNP, CMP #### [facility] [address] [place] [address] Dr. Marco Greer MONO # 0.9 103/ul Critically high 0.3-0.8 [facility] Comment on above: Performed By: #### C MADM, BNP, CMP #### [facility] [address] [place] [address] Dr. Mraco Greer Monocytes/100 WBC (Bld) 19.0 % Critically high 1.7-12.0 [facility] Comment on above: Performed By: #### C MADM, BNP, CMP #### [facility] [address] [place] [address] Dr. Marco Greer NEUT # 1.9 103/ul Normal 1.4-6.5 [facility] Comment on above: Performed By: #### C MADM, BNP, CMP #### [facility] [address] [place] [address] Dr. Marco Greer Neutrophils/100 WBC (Bld) 39.9 % Critically low 43.0-75.0 [facility] Comment on above: Performed By: #### C MADM, BNP, CMP #### [facility] [address] [place] [address] Dr. Marco Greer Platelet mean volume (Bld) [Entitic vol] 11.1 fL Normal 9.5-13.5 [facility] Comment on above: Performed By: #### C MADM, BNP, CMP #### [facility] [address] [place] [address] Dr. Marco Greer PLT 230 103/ul Normal 150-450 [facility] Comment on above: Performed By: #### C MADM, BNP, CMP #### [facility] [address] [place] [address] Dr. Marco Greer RBC 4.60 106/ul Normal 4.20-5.40 [facility] Comment on above: Performed By: #### C MADM, BNP, CMP #### [facility] [address] [place] [address] Dr. Marco Greer WBC 4.7 103/ul Normal 4.0-11.0 [facility] Comment on above: Performed By: #### C MADM, BNP, CMP #### [facility] [address] [place] [address] Dr. Marco Greer PROF 14(COMP METB)on 022 Albumin [Mass/Vol] 3.1 g/dL Critically low 3.4-5.0 [facility] Comment on above: Performed By: #### C MP #### [facility] [address] [place] [address] Dr. Marco Greer Albumin/Globulin [Mass ratio] 0.8 {ratio} Normal [facility] Comment on above: Performed By: #### C MP #### [facility] [address] [place] [address] Dr. Marco Greer ALP [Catalytic activity/Vol] 65 U/L Normal 46-116 [facility] Comment on above: Performed By: #### C MP #### [facility] [address] [place] [address] Dr. Marco Greer ALT [Catalytic activity/Vol] 21 U/L Normal 14-59 [facility] Comment on above: Performed By: #### C MP #### [facility] [address] [place] [address] Dr. Marco Greer Anion gap [Moles/Vol] 12.0 mmol/L Normal [facility] Comment on above: Performed By: #### C MP #### [facility] [address] [place] [address] Dr. Marco Greer AST [Catalytic activity/Vol] 21 U/L Normal 15-37 [facility] Comment on above: Performed By: #### C MP #### [facility] [address] [place] [address] Dr. Marco Greer Bilirubin [Mass/Vol] 0.3 mg/dL Normal 0.2-1.0 [facility] Comment on above: Performed By: #### C MP #### [facility] [address] [place] [address] Dr. Marco Greer Calcium [Mass/Vol] 8.8 mg/dL Normal 8.5-10.1 [facility] Comment on above: Performed By: #### C MP #### [facility] [address] [place] [address] Dr. Marco Greer Chloride [Moles/Vol] 99 mmol/L Normal 98-107 [facility] Comment on above: Performed By: #### C MP #### [facility] [address] [place] [address] Dr. Marco Greer CO2 [Moles/Vol] 26.3 mmol/L Normal 21.0-32.0 [facility] Comment on above: Performed By: #### C MP #### [facility] [address] [address] [address] Marco Greer Creatinine [Mass/Vol] 0.80 mg/dL Normal 0.55-1.02 [facility] Comment on above: Performed By: #### C MP #### [facility] [address] [address] [address] Marco Greer EGFR-AF CITIZEN [place] >60 Normal >=60 [facility] Comment on above: Performed By: #### C MP #### [facility] [address] [address] [address] Marco Greer EGFR-NON AF CITIZEN OF [place] >60 Normal >=60 [facility] Comment on above: Performed By: #### C MP #### [facility] [address] [place] [address] Dr. Marco Greer Globulin (S) [Mass/Vol] 3.8 g/dL Normal [facility] Comment on above: Performed By: #### C MP #### [facility] [address] [address] [address] Marco Greer Glucose [Mass/Vol] 87 mg/dL Normal 74-106 [facility] Comment on above: Performed By: #### C MP #### [facility] [address] [place] [address] Dr. Marco Greer Potassium [Moles/Vol] 4.3 mmol/L Normal 3.5-5.1 [facility] Comment on above: Performed By: #### C MP #### [facility] [address] [place] [address] Dr. Marco Greer Protein [Mass/Vol] 6.9 g/dL Normal 6.4-8.2 [facility] Comment on above: Performed By: #### C MP #### [facility] [address] [place] [address] Dr. Marco Greer Sodium [Moles/Vol] 133 mmol/L Critically low 136-145 [facility] Comment on above: Performed By: #### C MP #### [facility] [address] [address] [address] Marco Greer Urea nitrogen [Mass/Vol] 10.0 mg/dL Normal 7.0-18.0 [facility] Comment on above: Performed By: #### C MP #### [facility] [address] [address] [address] Marco Greer Urea nitrogen/Creatinine [Mass ratio] 12.5 mg/mg Normal [facility] Comment on above: Performed By: #### C MP #### [facility] [address] [address] [address] Marco Greer SED RATE [facility] 2021 SED RATE 38 mm/hr Critically high <=30 [facility] Comment on above: Performed By: #### C MADM, BNP, CMP #### [facility] [address] [address] [address] Marco Greer Vital Signs Date Time Vital Sign Value Performing Clinician Facility 05-25-2023 12:53-0400 Body height 162.56 cm MD Jonathon Kaur Work Phone: [facility] 05-25-2023 12:53-0400 Body mass index (BMI) [Ratio] 21.6 kg/m2 MD Jonathon Kaur Work Phone: [facility] 05-25-2023 12:53-0400 Body temperature 96.4 [degF] MD Jonathon Kaur Work Phone: [facility] 05-25-2023 12:53-0400 Body weight 57.15 kg MD Jonathon Kaur Work Phone: [facility] 05-25-2023 12:53-0400 Diastolic blood pressure 68 mm[Hg] MD Jonathon Kaur Work Phone: [facility] 05-25-2023 12:53-0400 Heart rate 60 /min MD Jonathon Kaur Work Phone: [facility] 05-25-2023 12:53-0400 SaO2% (BldA) [Mass fraction] 99 % MD Jonathon Kaur Work Phone: [facility] 05-25-2023 12:53-0400 Systolic blood pressure 120 mm[Hg] MD Jonathon Kaur Work Phone: [facility] 04-21-2022 13:15-0500 Body height 162.56 cm Blake Buehrer Other [facility] Other 04-21-2022 13:15-0500 Body mass index (BMI) [Ratio] 20.42 kg/m2 Blake Buehrer Other [facility] Other 04-21-2022 13:15-0500 Body temperature 96.3 [degF] Blake Buehrer Other [facility] Other 04-21-2022 13:15-0500 Body weight 53.98 kg Blake Buehrer Other [facility] Other 04-21-2022 13:15-0500 Diastolic blood pressure 60 mm[Hg] Blake Buehrer Other [facility] Other 04-21-2022 13:15-0500 SaO2% (BldA) [Mass fraction] 98 % Blake Buehrer Other [facility] Other 04-21-2022 13:15-0500 Systolic blood pressure 160 mm[Hg] Blake Buehrer Other [facility] Other 04-06-2022 10:45-0500 Body height 162.56 cm Blake Buehrer Other [facility] Other 01-23-2023 10:45-0500 Body mass index (BMI) [Ratio] 20.42 kg/m2 Blake Zhao Other [facility] Other 04-06-2022 10:45-0500 Body temperature 97.8 [degF] Blake Zhao Other [facility] Other 04-06-2022 10:45-0500 Body weight 53.98 kg Blake Zhao Other [facility] Other 04-06-2022 10:45-0500 Diastolic blood pressure 78 mm[Hg] Blake Zhao Other [facility] Other 04-06-2022 10:45-0500 SaO2% (BldA) [Mass fraction] 95 % Blake Zhao Other [facility] Other 04-06-2022 10:45-0500 Systolic blood pressure 112 mm[Hg] Blake Zhao Other [facility] Other 03-27-2022 11:52-0500 Body height 162.56 cm Jonathon A Naderer Work Phone: [facility] [place] [address] [place] Work Phone: 03-27-2022 11:52-0500 Body mass index (BMI) [Ratio] 20.43 kg/m2 Jonathon A Naderer Work Phone: XT-Scvdsmxdds-Dmnmfo [place] [address] [place] Work Phone: 03-27-2022 11:52-0500 Body surface area Derived from formula 1.57 m2 Jonathon A Naderer Work Phone: QA-Xpgxmmvuab-Emwjxh [place] [address] [place] Work Phone: 03-27-2022 11:52-0500 Body weight 53.98 kg Jonathon Mckeonerer Work Phone: JK-Aapljuhxay-Wrvhlx [place] [address] [place] Work Phone: 03-27-2022 11:52-0500 Diastolic blood pressure 70 mm[Hg] Jonathon Mckeonerer Work Phone: LA-Luwcubptne-Znhxfy [place] [address] [place] Work Phone: 03-27-2022 11:52-0500 Heart rate 60 /min Jonathon Mckeonerer Work Phone: DG-Reqxtiucbe-Xrroze [place] [address] [place] Work Phone: 03-27-2022 11:52-0500 Systolic blood pressure 168 mm[Hg] Jonathon Mckeonerer Work Phone: ZA-Npxptgofrd-Zrwmtc [place] [address] [place] Work Phone: 02-27-2022 13:19-0500 Body height 162.56 cm Jonathon Mckeonerer Work Phone: SY-Yrmmgvqaeu-HSO [facility] [address] [place] Work Phone: 02-27-2022 13:19-0500 Body mass index (BMI) [Ratio] 20.79 kg/m2 Jonathon Mckeonerer Work Phone: MG-Iuaqbikxic-TBB [facility] [address] [place] Work Phone: 02-27-2022 13:19-0500 Body surface area Derived from formula 1.58 m2 Jonathon Mckeonerer Work Phone: EE-Klojpaskvw-GHX [facility] [address] [place] Work Phone: 02-27-2022 13:19-0500 Body weight 54.94 kg Jonathon Mckeonerer Work Phone: SC-Hvqjhikjfb-ITZ [facility] [address] [place] Work Phone: 02-27-2022 13:19-0500 Diastolic blood pressure 63 mm[Hg] Jonathon Mckeonerer Work Phone: NZ-Aukwrwzcsm-VAW [facility] [address] [place] Work Phone: 02-27-2022 13:19-0500 Heart rate 61 /min Jonathon Leesr Work Phone: VQ-Yhvubqvprm-RTW [facility] [address] [place] Work Phone: 02-27-2022 13:19-0500 SaO2% (BldA) [Mass fraction] 95 % Jonathon Edmund Nabeelr Work Phone: NP-Bsmrtuokzo-VNB [facility] [address] [place] Work Phone: 02-27-2022 13:19-0500 Systolic blood pressure 174 mm[Hg] Jonathon Edmund Nabeelr Work Phone: YT-Xzfbfjsrev-GDK [facility] [address] [place] Work Phone: 02-27-2022 13:19-0500 0 1 Jonathon Leesr Work Phone: [facility] [address] [place] Work Phone: Comment on above: [employer] 02-17-2022 13:53-0500 Body height 162.56 cm Jonathon Leesr Work Phone: [facility] Work Phone: 02-17-2022 13:53-0500 Body mass index (BMI) [Ratio] 21.89 kg/m2 Jonathon Edmund Mikeerer Work Phone: [facility] Work Phone: 02-17-2022 13:53-0500 Body surface area Derived from formula 1.62 m2 Jonathon Shaffer Mikeerer Work Phone: [facility] Work Phone: 02-17-2022 13:53-0500 Body weight 57.83 kg Jonathon Shaffer Mikeerer Work Phone: [facility] Work Phone: 02-17-2022 13:53-0500 Diastolic blood pressure 90 mm[Hg] Jonathon Shaffer Naderer Work Phone: [facility] Work Phone: 02-17-2022 13:53-0500 Heart rate 54 /min Jonathon Shaffer Naderer Work Phone: [facility] Work Phone: 02-17-2022 13:53-0500 Systolic blood pressure 132 mm[Hg] Jonathon Shaffer Naderer Work Phone: [facility] Work Phone: 02-13-2022 11:46-0500 Diastolic blood pressure 84 mm[Hg] Jonathon Shaffer Naderer Work Phone: [facility] [address] [place] Work Phone: 02-13-2022 11:46-0500 Systolic blood pressure 192 mm[Hg] Jonathon Shaffer Naderer Work Phone: [facility] [address] [place] Work Phone: 02-13-2022 11:20-0500 Diastolic blood pressure 62 mm[Hg] Jonathon Shaffer Naderer Work Phone: [facility] [address] [place] Work Phone: 02-13-2022 11:20-0500 Systolic blood pressure 200 mm[Hg] Jonathon Shaffer Naderer Work Phone: [facility] [address] [place] Work Phone: 02-13-2022 11:15-0500 Body height 162.56 cm Jonathon A Naderer Work Phone: [facility] [address] [place] Work Phone: 02-13-2022 11:15-0500 Body mass index (BMI) [Ratio] 21.46 kg/m2 Jonathon Shaffer Naderer Work Phone: [facility] [address] [place] Work Phone: 02-13-2022 11:15-0500 Body surface area Derived from formula 1.6 m2 Jonathon Shaffer Naderer Work Phone: [facility] 250 DO Work Phone: 02-13-2022 11:15-0500 Body weight 56.7 kg Jonathon A Naderer Work Phone: [facility] 250 DO Work Phone: 02-13-2022 11:15-0500 Diastolic blood pressure 70 mm[Hg] Jonathon Shaffer Naderer Work Phone: [facility] 250 DO Work Phone: 02-13-2022 11:15-0500 Heart rate 61 /min Jonathon Shaffer Naderer Work Phone: [facility] 250 DO Work Phone: 02-13-2022 11:15-0500 Systolic blood pressure 204 mm[Hg] Jonathon A Naderer Work Phone: [facility] 250 DO Work Phone: 01-28-2022 17:01-0500 Body temperature 98.6 [degF] Pcp Unknown [facility] 01-28-2022 17:01-0500 Diastolic blood pressure 68 mm[Hg] Pcp Unknown [facility] 01-28-2022 17:01-0500 Heart rate 75 /min Pcp Unknown [facility] 01-28-2022 17:01-0500 Respiratory rate 18 /min Pcp Unknown [facility] 01-28-2022 17:01-0500 SaO2% (BldA) [Mass fraction] 97 % Pcp Unknown [facility] 01-28-2022 17:01-0500 Systolic blood pressure 148 mm[Hg] Pcp Unknown [facility] 01-28-2022 03:27-0500 Body weight 62.2 kg Pcp Unknown [facility] 01-06-2022 08:00-0400 Body temperature 97.2 [degF] PHYSICIAN NO [facility] [place] 01-06-2022 08:00-0400 Diastolic blood pressure 56 mm[Hg] PHYSICIAN NO [facility] 01-06-2022 08:00-0400 Heart rate 74 /min PHYSICIAN NO [facility] 01-06-2022 08:00-0400 Respiratory rate 18 /min PHYSICIAN NO [facility] 01-06-2022 08:00-0400 SaO2% (BldA) [Mass fraction] 97 % PHYSICIAN NO [facility] 01-06-2022 08:00-0400 Systolic blood pressure 125 mm[Hg] PHYSICIAN NO [facility] 01-06-2022 06:00-0400 Body weight 58.9 kg PHYSICIAN NO [facility] [place] 01-02-2022 18:59-0400 Body height 162.56 cm PHYSICIAN NO [facility] [place] Encounters Encounter Date Encounter Type Care Provider Facility Start: 09-30-2023 End: 09-30-2023 ambulatory [facility] Start: 09-23-2023 End: 09-23-2023 Patient encounter procedure MD Jonathon Kaur Work Phone: [facility] [address] Work Phone: Start: 09-23-2023 End: 09-23-2023 ambulatory MD Jonathon Kaur Work Phone: [facility] Work Phone: Start: 07-19-2023 End: 07-19-2023 ambulatory [facility] Start: 07-14-2023 End: 07-14-2023 ambulatory JONATHON KAUR Not Available Start: 06-03-2023 End: 06-03-2023 Patient encounter procedure MD Jonathon Kaur Work Phone: [facility] [address] Work Phone: Start: 06-03-2023 End: 06-03-2023 ambulatory MD Jonathon Kaur Work Phone: [facility] Work Phone: Start: 05-25-2023 End: 05-25-2023 Patient encounter procedure MD Jonathon Kaur Work Phone: [facility] Work Phone: Start: 05-25-2023 End: 05-25-2023 ambulatory Blake Zhao Facility:[facility] Start: 12-21-2022 End: 12-21-2022 ambulatory JORGE [facility] Start: 12-15-2022 End: 12-15-2022 Patient encounter procedure MD Jonathon Kaur Work Phone: [facility] [address] Work Phone: Start: 12-15-2022 End: 12-15-2022 ambulatory MD Jonathon Kaur Work Phone: [facility] Work Phone: Start: 11-24-2022 End: 11-24-2022 Patient encounter procedure MD Jonathon Kaur Work Phone: [facility] Start: 11-24-2022 End: 11-24-2022 ambulatory MD Jonathon Kaur Work Phone: [facility] Work Phone: Start: 08-18-2022 Rx Renewal Jonathon Kaur Work Phone: [facility] Work Phone: Start: 06-26-2022 End: 06-27-[address] DAPHNE PATEL Facility: Start: 05-20-2022 Rx Renewal Jonathon Kaur Work Phone: [facility] [place] Work Phone: Start: 04-21-2022 End: 04-21-2022 ambulatory Blake Kenyonkeagan Other [facility] Other Start: 04-21-2022 Office outpatient visit 25 minutes Blake Zhao [facility] Start: 04-13-2022 ambulatory Radha Copeland M.D. Facility : Start: 04-06-2022 End: 04-06-2022 ambulatory Blake Singhrasta Other [facility] Other Start: 04-06-2022 Office outpatient ne w 45 minutes Blake Singhrer [facility] Surgery Start: 04-03-2022 End: 04-04-[address] DOCTOR PABON Facility:[facility] Start: 04-01-2022 Patient encounter procedure Jonathon Kaur Work Phone: [facility] 250 DO Work Phone: Start: 04-01-[address] Miri Hunt ty: Start: 03-27-2022 Office outpatient visit 25 minutes Jonathon Kaur Work Phone: [facility]-Gxxoiprzyw-Ihlpwvho 250 DO Work Phone: Start: 03-27-[address] Miri Hunt ty: Start: 03-11-2022 End: 03-12-[address] JONATHON KAUR Facility:[facility] Start: 03-04-2022 End: 03-04-2022 ambulatory MD Jonathon Kaur Work Phone: [facility] Work Phone: Start: 03-04-2022 End: 03-04-2022 Patient encounter procedure MD Jonathon Kaur Work Phone: [facility] [address] Start: 02-27-2022 ambulatory ALBIN PIERCE Facility :[facility] Start: 02-27-2022 Postop follow up vis it related to original px Jonathon Kaur Work Phone: LF-Mqvwwihwlh-MXT Tierra Sanchez [address] [place] Work Phone: Start: 02-27-2022 ambulatory ALBIN ABU-CHRISTIAN Facility :[facility] Start: 02-27-2022 ambulatory ALBIN ABU-CHRISTIAN Facility :[facility] Start: 02-24-2022 End: 02-24-2022 Departed Referred MD Jonathon Kaur Work Phone: [facility] [address] [place] Start: 02-17-2022 Office outpatient ne w 45 minutes Jonathon Kaur Work Phone: [facility] Work Phone: Start: 02-17-[address] Kvng Romo Facility:[id number] Start: 02-13-2022 Office outpatient ne w 45 minutes Jonathon Kaur Work Phone: [facility] 250 DO Work Phone: Start: 02-13-[address] Miri Hunt ty: Start: 02-10-2022 End: 02-11-[address] JONATHON KAUR Facility:[facility] Start: 01-06-2022 End: 01-06-2022 ambulatory [facility] PROVIDER [facility] Start: 01-06-2022 End: 01-28-2022 Evaluation and management of inpatient Albin Abu-Christian [facility] Dinesh [id number] Rm [id number] Start: 01-02-2022 End: 01-06-2022 Evaluation and management of inpatient PHYSICIAN NO [facility] [place] [facility] Start: 01-02-2022 End: 01-02-[address] BUD BROUSSARD Facility:[facility] Start: 11-26-2021 End: 11-26-2021 Patient encounter procedure PHYSICIAN NO [facility] [address] Start: 08-25-2021 End: 08-26-[address] DOCTOR PABON Facility:[facility] Procedures Date Procedure Procedure Detail Performing Clinician Start: 05-25-2023 Doppler ultrasonogra phy of bilateral carotid arteries MD Jonathon Kaur Work Phone: Start: 11-24-2022 Doppler ultrasonogra phy of bilateral carotid arteries MD Jonathon Kaur Work Phone: Start: 01-13-2022 End: 01-13-2022 Arterial Full Panel -Stat Jillian eid Start: 01-12-2022 Blood coagulation panel Jillian Hagan Start: 01-12-2022 Fibrinogen [Mass/vol ume] in Platelet poor plasma by Coagulation assay Jillian Hagan Start: 01-08-2022 aPTT in Platelet poo r plasma by Coagulation assay Jason Ibanez Start: 01-07-2022 End: 01-21-2022 Intraoperative Transesophageal Echo Stephania Kim Start: 01-05-2022 CL LHC & COR Angio PHYS ICIAN NO FAMILY Cholecystectomy Jonathon Arreguin er Work Phone: Coronary artery bypa ss graft Jonathon Kaur Work Phone: History of coronary artery bypass grafting S/P CABG x 3 Jonathon Kaur Work Phone: Surgical repair of u pper extremity Jonahton Kaur Work Phone: NEGATED: Highlighted row has not occurred! Total colonoscopy oJnathon Kaur Work Phone: Plan of Treatment Date Care Activity Detail Author Start: 06-19-2022 FUV, Provider: Miri Hill, Status: Pen, Time: 3:00 PM FUV, Provider: Miri Hill, Status: Pen, Time: 3:00 PM [facility] 250 DO Work Phone: Start: 04-03-2022 NPV, Provider: Sivakumar Corbett, Status: Pen, Time: 9:15 AM NPV, Provider: Sivakumar Corbett, Status: Pen, Time: 9:15 AM [facility] 250 DO Work Phone: Start: 04-03-2022 Patient encounter procedure [facility] [place] Start: 04-02-2022 EVENT JEREMY, Provider: DEV PEPPER STRAIGHTENER 1,[id number], Status: Pen, Time: 1:30 PM EVENT JEREMY, Provider: DEV PEPPER STRAIGHTENER 1,[id number], Status: Pen, Time: 1:30 PM [facility]-[place]si[facility] [place] 250 DO Work Phone: Start: 02-27-2022 Patient encounter procedure [facility] Start: 02-27-2022 POV, Provider: Albin Pierce, Status: Pen, Time: 1:00 PM POV, Provider: Albin Pierce, Status: Pen, Time: 1:00 PM -[facility] 250 DO Work Phone: Start: 02-17-2022 Patient encounter procedure [facility] Card[facility] [place] Start: 02-17-2022 NPV, Provider: Kvng Romo, Status: Pen, Time: 1:45 PM NPV, Provider: Kvng Romo, Status: Pen, Time: 1:45 PM -[facility] 250 DO Work Phone: Start: 02-17-2022 Patient encounter procedure [facility] U[facility] [place] Start: 02-13-2022 Patient encounter procedure [facility] [place] Start: 01-12-2022 End: 01-13-2023 Bisacodyl Rectal 10 mg Suppository Daily PRN ; Suppository (DULCOLAX)DOSE = 10 mg Rectal Daily, PRN Constipation Start: 12-Jan-2022 End: 12-Jan-2023 Ordered: 12-Jan-2022 Jillian Hagan Intent [facility] Start: 01-08-2022 Preprocedural cardiovascular examination Preprocedural cardiovascular examination Date: 08-Jan-2022 [facility] Start: 01-06-2022 Cardiac ischemia Cardiac ischemia Date: 06-Jan-2022 [facility] Start: 01-06-2022 Carotid stenosis Carotid stenosis Date: 06-Jan-2022 [facility] Start: 01-06-2022 Pre-operative cardiovascular examination [facility] Start: 01-06-2022 PVD (peripheral vascular disease) PVD (peripheral vascular disease) Date: 06-Jan-2022 [facility] Start: 01-06-2022 [facility] Start: 01-05-2022 [facility] Start: 01-02-2022 Referral to brush sander [facility] Start: 01-02-2022 Hospital admission [facility] Start: 01-02-2022 Fluoroscopy of Left Heart using Low Osmolar Contrast Fluoroscopy of Left Heart using Low Osmolar Contrast [facility] Start: 01-02-2022 Fluoroscopy of Multiple Coronary Arteries using Low Osmolar Contrast Fluoroscopy of Multiple Coronary Arteries using Low Osmolar Contrast [facility] Start: 01-02-2022 Measurement of Cardiac Sampling and Pressure, Left Heart, Percutaneous Approach Measurement of Cardiac Sampling and Pressure, Left Heart, Percutaneous Approach [facility] Patient referral [facility] Work Phone: US.doppler Carotid arteries - bilateral [facility] Payers Date Payer Category Payer Self-pay [id number] 2019 Unknown 2010 Unknown [id number] 1959 Medicare [id number] 1959 Unknown [id number] 1942 Unknown [id number] 2.16. [id number] 1942 Unknown [id number] 2.16.84 0.1.428279.3.579.2.593 1942 Unknown [id number] 2.16.84 0.1.192581.3.579.2.593 1942 Unknown [id number] 2.16.84 0.1.354023.3.579.2.593 1942 Unknown [id number] 2.16.84 0.1.433591.3.579.2.593 1942 Unknown [id number] 2.16.84 0.1.643871.3.579.2.593 1942 Unknown [id number] 2.16.84 0.1.852209.3.579.2.593 1942 Unknown [id number] 2.16. 840.1.733915.3.579.2.356 1942 Unknown [id number] 2.16. 840.1.419201.3.579.2.356 1942 Unknown [id number] 2.16. 840.1.610072.3.579.2.356 1942 Unknown [id number] 2.16. 840.1.236906.3.579.2.356 1942 Unknown [id number] 2.16. 840.1.318507.3.579.2.356 1942 Unknown [id number] 2.16. 840.1.995280.3.579.2.356 1942 Unknown [id number] 2.16. 840.1.455232.3.579.2.356 1942 Unknown [id number] 2.16. 840.1.725778.3.579.2.356 1942 Unknown [id number] 2.16.84 0.1.952825.3.579.2.1259 Unknown [id number] 2.16.8 40.1.274110.3.579.2.531 Unknown [id number] 2.16.8 40.1.617937.3.579.2.531 Unknown [id number] 2.16.8 40.1.829139.3.579.2.531 Unknown [id number] 2.16.8 40.1.122886.3.579.2.531 Unknown [id number] 2.16.8 40.1.102041.3.579.2.531 Social History Date Type Detail Facility Start: 01-03-2022 End: 01-03-2022 Tobacco smoking status NHIS Ex-smoker (finding) [facility] Start: 1940 Sex Assigned At Female [facility] Tobacco smoking consumption unknown [facility] No alcohol use No alcohol use [facility] 250 DO Work Phone: Comment on above: 1 pack daily- Quit i n 1990s; Sex Assigned At Sex Assigned At [facility] Other Goals Date Patient Goal Desired Activity /State Functional Status Date Assessment Result Facility 01-02-2022 Functional status Patient at Baseline [facility] Work Phone: Bladder: fully continent [facility] Mental Status Date Assessment Result Facility 01-17-2022 Mentally alert [facility] 01-02-2022 Cognitive function Cognitive Sta tus Patient at Baseline [facility] Work Phone: Clinical Notes 01-02-2022 to 09-30-2023 Note Date & Type Note Facility 09-30-2023 Note [facility] Note Chief Complaint: Patient here for 6 mo follow up CAD, chronic systolic heart failure, and hypertension. Had routine labs last week with lipid panel. She presented to [facility] last month for BP over 200 systolic. Denies chest pain, SOB, and palpitations. Chief Complaint: hospital Wednesday, BP was over 224 on top, started new BP med, sodium was low, thyroid was high. HPI: Cely Barbosa is a 83 y.o. female with a history of hypertension and dyslipidemia and recent coronary artery bypass graft surgery here to establish care. In December, she was feeling unwell, she was brought to the [facility] and found to have a non-ST elevation myocardial infarction. She was subsequently transferred to [facility] for cardiac catheterization and then [facility] for bypass surgery. She has been doing well since. She currently denies exertional symptoms UPDATE 07/19/2023 She presented to [facility] ED last month for BP over 200 systolic. Denies chest pain, SOB, and palpitations. Currently she feels well. She has had no significant symptoms since I last saw her. Cardiology ROS: Review of Systems Gastrointestinal: Positive for nausea. Neurological: Positive for dizziness and light-headedness. All other systems reviewed and are negative. Past Medical History She has a past medical history of Abnormal ECG, Arrhythmia, Carotid artery stenosis, Coronary artery disease, Hypertension, Hyponatremia, and PVC (premature ventricular contraction). Surgical History She has a past surgical history that includes Cardiac catheterization; Coronary artery bypass graft; Cholecystectomy; and Elbow surgery. Social History She reports that she has quit smoking. Her smoking use included cigarettes. She has never used smokeless tobacco. She reports that she does not currently use alcohol. No history on file for drug use. Family History Family History Problem Relation Name Age of Onset Valvular heart disease Mother Heart attack Father Heart attack Brother Coronary artery disease Brother Allergies Patient has no known allergies. Medications Current Outpatient Medications: amLODIPine (Norvasc) 5 mg tablet, Take 5 mg by mouth in the morning., Disp: , Rfl: atorvastatin (Lipitor) 80 mg tablet, Take 40 mg by mouth at bedtime., Disp: , Rfl: carvedilol (Coreg) 25 mg tablet, Take 25 mg by mouth with breakfast and with evening meal., Disp: , Rfl: clopidogrel (Plavix) 75 mg tablet, Take 75 mg by mouth in the morning., Disp: , Rfl: levothyroxine (Synthroid, Levoxyl) 100 mcg tablet, Take 100 mcg by mouth in the morning., Disp: , Rfl: lisinopril 20 mg tablet, Take 20 mg by mouth in the morning., Disp: , Rfl: meclizine (Antivert) 12.5 mg tablet, Take 12.5 mg by mouth every 6 (six) hours if needed for nausea., Disp: , Rfl: sodium chloride 1,000 mg tablet, Take 0.5 g by mouth once daily as directed., Disp: , Rfl: aspirin 81 mg EC tablet, Take 81 mg by mouth in the morning., Disp: , Rfl: carvedilol (Coreg) 12.5 mg tablet, Take 1 tablet (12.5 mg) by mouth with breakfast and with evening meal. STOP METOPROLOL (Patient not taking: Reported on 09/30/2023), Disp: 180 tablet, Rfl: 3 inFLIXimab (Remicade) 100 mg injection, Infuse into a venous catheter., Disp: , Rfl: metoprolol succinate XL (Toprol-XL) 25 mg 24 hr tablet, Take 12.5 mg by mouth in the morning. Do not crush or chew., Disp: , Rfl: Last Recorded Vitals BP 151/69 Pulse 56 Resp 18 Ht 1.626 m (5' 4 ) Wt 58.8 kg (129 lb 9.6 oz) SpO2 98% BMI 22.25 kg/m??? Physical Examination: GENERAL: alert and oriented x3, well developed, in no acute distress. HEAD: atraumatic, normocephalic. EYES: GEORGE, EOMI. NECK: trachea midline, no JVD present, no carotid bruits present. CARDIAC: S1, S2 present. RRR. No murmur, rubs, or gallops. RESPIRATORY: CTAB, no increased effort of breathing, no rales, rhonchi, or wheezing. ABDOMEN: soft, nontender, nondistended. EXTREMITIES: no lower extremity edema, peripheral pulses are 2+ bilaterally. No rash/skin discoloration present. NEURO: strength/sensation equal and symmetric in bilateral upper and lower extremities. PSYCH: appropriate mood, affect, and judgement. Echocardiogram 01/02/2022 Ejection fraction 35 to 40%. Severe hypokinesis of the mid to distal anteroseptal and apex Trace aortic regurgitation mitral regurgitation tricuspid regurgitation Cardiac catheterization 01/01/2022 for non-STEMI Left main: Complex distal disease 75% stenosis involving the ostium of the left circumflex and LAD LAD: Complex ostial disease, 70% mid vessel stenosis at the bifurcation with the diagonal, mid to distal 60 to 70% stenosis Circumflex 75 to 80% stenosis RCA: No significant disease Left ventriculography EF around 45%. Coronary artery bypass graft surgery 01/12/2022: Left internal mammary artery graft to the left anterior descend (more content not included)... [facility] 07-19-2023 Note [facility] Cardiology Clinic Note Chief Complaint: Patient here for 6 mo follow up CAD, chronic systolic heart failure, and hypertension. Had routine labs last week with lipid panel. She presented to [facility] ED last month for BP over 200 systolic. Denies chest pain, SOB, and palpitations. HPI: Cely Barbosa is a 83 y.o. female with a history of hypertension and dyslipidemia and recent coronary artery bypass graft surgery here to establish care. In December, she was feeling unwell, she was brought to the [facility] and found to have a non-ST elevation myocardial infarction. She was subsequently transferred to [facility] for cardiac catheterization and then [facility] for bypass surgery. She has been doing well since. She currently denies exertional symptoms UPDATE 07/19/2023 She presented to [facility] ED last month for BP over 200 systolic. Denies chest pain, SOB, and palpitations. Currently she feels well. She has had no significant symptoms since I last saw her. Cardiology ROS: Review of Systems Respiratory: Positive for cough. Hematologic/Lymphatic: Bruises/bleeds easily. Musculoskeletal: Positive for arthritis and joint pain. All other systems reviewed and are negative. Past Medical History She has a past medical history of Abnormal ECG, Arrhythmia, Carotid artery stenosis, Coronary artery disease, Hypertension, Hyponatremia, and PVC (premature ventricular contraction). Surgical History She has a past surgical history that includes Cardiac catheterization; Coronary artery bypass graft; Cholecystectomy; and Elbow surgery. Social History She reports that she has quit smoking. Her smoking use included cigarettes. She has never used smokeless tobacco. She reports that she does not currently use alcohol. No history on file for drug use. Family History Family History Problem Relation Name Age of Onset Valvular heart disease Mother Heart attack Father Heart attack Brother Coronary artery disease Brother Allergies Patient has no known allergies. Medications Current Outpatient Medications: amLODIPine (Norvasc) 5 mg tablet, Take 5 mg by mouth in the morning., Disp: , Rfl: aspirin 81 mg EC tablet, Take 81 mg by mouth in the morning., Disp: , Rfl: atorvastatin (Lipitor) 80 mg tablet, Take 40 mg by mouth at bedtime., Disp: , Rfl: clopidogrel (Plavix) 75 mg tablet, Take 75 mg by mouth in the morning., Disp: , Rfl: furosemide (Lasix) 20 mg tablet, Take 10 mg by mouth in the morning., Disp: , Rfl: inFLIXimab (Remicade) 100 mg injection, Infuse into a venous catheter., Disp: , Rfl: levothyroxine (Synthroid, Levoxyl) 100 mcg tablet, Take 100 mcg by mouth in the morning., Disp: , Rfl: metoprolol succinate XL (Toprol-XL) 50 mg 24 hr tablet, Take 25 mg by mouth in the morning., Disp: , Rfl: predniSONE (Deltasone) 5 mg tablet, Take 10 mg by mouth if needed., Disp: , Rfl: sodium chloride 1,000 mg tablet, Take 0.5 g by mouth once daily as directed., Disp: , Rfl: Last Recorded Vitals BP 174/62 (BP Location: Left arm, Patient Position: Sitting) Pulse 74 Ht 1.626 m (5' 4 ) Wt 59.4 kg (131 lb) SpO2 98% BMI 22.49 kg/m??? Physical Examination: GENERAL: alert and oriented x3, well developed, in no acute distress. HEAD: atraumatic, normocephalic. EYES: GEORGE, EOMI. NECK: trachea midline, no JVD present, no carotid bruits present. CARDIAC: S1, S2 present. RRR. No murmur, rubs, or gallops. RESPIRATORY: CTAB, no increased effort of breathing, no rales, rhonchi, or wheezing. ABDOMEN: soft, nontender, nondistended. EXTREMITIES: no lower extremity edema, peripheral pulses are 2+ bilaterally. No rash/skin discoloration present. NEURO: strength/sensation equal and symmetric in bilateral upper and lower extremities. PSYCH: appropriate mood, affect, and judgement. Echocardiogram 01/02/2022 Ejection fraction 35 to 40%. Severe hypokinesis of the mid to distal anteroseptal and apex Trace aortic regurgitation mitral regurgitation tricuspid regurgitation Cardiac catheterization 01/01/2022 for non-STEMI Left main: Complex distal disease 75% stenosis involving the ostium of the left circumflex and LAD LAD: Complex ostial disease, 70% mid vessel stenosis at the bifurcation with the diagonal, mid to distal 60 to 70% stenosis Circumflex 75 to 80% stenosis RCA: No significant disease Left ventriculography EF around 45%. Coronary artery bypass graft surgery 01/12/2022: Left internal mammary artery graft to the left anterior descending, vein graft to the obtuse marginal and diagonal Echocardiogram 08/04/2022 Global left ventricular systolic function is normal; EF is 55%. Normal diastolic function. Mild aortic valve stenosis; mild AR. Normal right-sided pressures. No pericardial effusion. CT/CT angio chest 06/2023 IMPRESSION: 1. Negative for acute PE. 2. Localized scarring and atelectasis lateral segment lef (more content not included)... [facility] 12-21-2022 Note Patient here for 6 m o follow up CAD, HFrEF, and hypertension. She had labs in June and echo back in July 2022. PCP switched her from lisinopril to amlodipine. She said her BP has been better controlled with the switch. Denies chest pain, SOB, and LE edema. C/o easy bruising. She has completed cardiac rehab since her last visit. Review of Systems Cardiovascular: Positive for palpitations ( once in awhile at night ). Hematologic/Lymphatic: Bruises/bleeds easily. Musculoskeletal: Positive for arthritis and joint pain. All other systems reviewed and are negative. [facility] 12-21-2022 Note Cardiology Clinic No te Subjective Cely Barbosa is a 82 y.o. year old female patient with history of hypertension and dyslipidemia and coronary artery disease status post recent 3-vessel coronary artery bypass graft (12/2021) seen in follow-up. 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 Atherosclerosis of little traverse coronary artery of little traverse heart Essential hypertension, benign Heart failure (CMS/HCC) Hyperlipidemia Hyponatremia Other abnormalities of gait and mobility Chronic arthritis Rheumatoid arthritis (CMS/FORMERLY [facility]) S/P CABG (coronary artery bypass graft) Family History Problem Relation Name Age of Onset Valvular heart disease Mother Heart attack Father Heart attack Brother Coronary artery disease Brother Social History Tobacco Use Smoking status: Former Types: Cigarettes Smokeless tobacco: Never Substance Use Topics Alcohol use: Not Currently HPI In December 2022, she was feeling unwell, she was brought to the [facility] and found to have a non-ST elevation myocardial infarction. She was subsequently transferred to [facility] for cardiac catheterization and then [facility] for bypass surgery. Update: 12/21/2022 Seen in follow-up Has occasional palpitations brief in nature lasting seconds to a couple of minutes Blood pressure is elevated, no longer taking Lisinopril Denies chest pain, dyspnea or lower extremity edema Review of Systems Cardiovascular: Positive for palpitations. Negative for chest pain, claudication, dyspnea on exertion, irregular heartbeat, leg swelling, near-syncope, orthopnea, paroxysmal nocturnal dyspnea and syncope. Objective Visit Vitals BP 159/73 (BP Location: Left arm, Patient Position: Sitting) Pulse 70 Ht 1.626 m (5' 4 ) Wt 59.9 kg (132 lb) SpO2 99% BMI 22.66 kg/m??? Smoking Status Former BSA 1.64 m??? Physical Exam General: Awake, alert, NAD Neck: No elevated JVP. No carotid bruit Pulm: Breath sounds clear to ascultation bilaterally with no wheeze, crackles or rhonchi Cards: Regular rate and rhythm, S1, S2. No S3 or S4 gallop. Murmur: none Extr: Lower extremity edema: None. Skin: warm, dry, well perfused Neuro: A&Ox3, No gross deficits Allergies No Known Allergies Medications Current Outpatient Medications: amLODIPine (Norvasc) 5 mg tablet, Take 5 mg by mouth in the morning., Disp: , Rfl: aspirin 81 mg EC tablet, Take 81 mg by mouth in the morning., Disp: , Rfl: atorvastatin (Lipitor) 80 mg tablet, Take 40 mg by mouth at bedtime., Disp: , Rfl: clopidogrel (Plavix) 75 mg tablet, Take 75 mg by mouth in the morning., Disp: , Rfl: furosemide (Lasix) 20 mg tablet, Take 10 mg by mouth in the morning., Disp: , Rfl: inFLIXimab (Remicade) 100 mg injection, Infuse into a venous catheter., Disp: , Rfl: levothyroxine (Synthroid, Levoxyl) 100 mcg tablet, Take 100 mcg by mouth in the morning., Disp: , Rfl: metoprolol succinate XL (Toprol-XL) 50 mg 24 hr tablet, Take 25 mg by mouth in the morning., Disp: , Rfl: predniSONE (Deltasone) 5 mg tablet, Take 10 mg by mouth if needed., Disp: , Rfl: sodium chloride 1,000 mg tablet, Take 0.5 g by mouth once daily as directed., Disp: , Rfl: Recent Labs 06/26/2022 Sodium 137, potassium 4.5, chloride 100, BUN 21, serum creatinine 0.94, estimated GFR 57% Total cholesterol 234, HDL 63, triglycerides 159, LDL 139 WBC 10.7, hemoglobin 13, hematocrit 40.2, platelets 283 Imaging and other tests Echo: 08/04/2022 Normal ventricular systolic function. LVEF is 55% Normal diastolic function Mild aortic valve stenosis Normal right-sided pressures No pericardial effusion Holter monitor: 04/01 - 04/06/2022 Sinus rhythm with rates ranging from 73 to 87 bpm Echocardiogram 01/02/2022 Ejection fraction 35 to 40%. Severe hypokinesis of the mid to distal anteroseptal and apex Trace aortic regurgitation mitral regurgitation tricuspid regurgitation Cardiac catheterization 01/01/2022 for non-STEMI Left main: Complex distal disease 75% stenosis involving the ostium of the left circumflex and LAD LAD: Complex ostial disease, 70% mid vessel stenosis at the bifurcation with the diagonal, mid to distal 60 to 70% stenosis Circumflex 75 to 80% stenosis RCA: No significant disease Left ventriculography EF around 45%. Coronary artery bypass graft surgery 01/12/2022: Left internal mammary artery graft to the left anterior descending, vein graft to the obtuse marginal and diagonal Assessment Diagnoses and all orders for this visit: Coronary artery disease involving little traverse coronary artery of little traverse heart without angina pectoris Hx of CABG Chronic systolic heart failure (CMS/HCC) Essential hypertension Mixed hyperlipidemia Plan 1. Coronary artery disease (more content not included)... [facility] 04-21-2022 Evaluation note Encounter Date Diagnosis Assessment Notes Apr, Right-sided extracranial carotid artery stenosis (ICD-10 - I65.21) Apr, Other 70% right internal carotid artery stenosis She is asymptomatic and on good medical therapy. We had a long discussion today about the choices between operative management and medical management. Given her recent coronary revascularization and age she wishes to continue with medical management at this time. She and her family are aware that should she develop symptoms intervention would be required. We will see her back in 6 months with a repeat duplex examination. Brenco Other 01-23-2023 Evaluation note* Encounter Date Diagnosis Assessment Notes Treatment Notes Treatment Clinical Notes Mar, Asymptomatic stenosis of right carotid artery (ICD-10 - I65.21) Mar, Other Right carotid stenosis greater than 70% She will undergo CT angiogram to better define her carotid anatomy, the degree of stenosis, and the severity of common carotid artery disease. I will see her back once her CT is completed so we can review the findings and decide on intervention versus medical therapy along with mode of intervention if such as needed. She would prefer TCAR after discussion if her anatomy is acceptable. [facility] Other 10-31-2022 History of Present illness Narrative* I reviewed her at the clinic today. She underwent coronary bypass grafting x3 on January 12 background of impaired left ventricular function. She has made an excellent recovery. At review today she had no complaints. * She has been followed up at the cardiology clinic and is keen to start rehab. [id number] [address] [address] [place] Work Phone: 1(234) 376-531210-31-2022 Reason for referral (narrative)* Reason for Referral: OT re-eval s/p CABG x3 (01/12) [facility]10-24-2022 Progress note Author Vandana Torres [facility] January 05, 2022 11:26am Note Date/Time January 05, 2022 1 1:26am [facility] [address] [place] [address] Hospitalist Progress Note Signed Patient: Cely Barbosa MR#: [id number] : 1940 Acct:[id number] Age/Sex: 81 / F Adm Date: 2 Loc: Room: [address] [place] [address] Type: ADM IN Attending Dr: Vandana Torres MD Copies to: ~ Date of Service: 01/05/2022 Subjective Subjective Narrative: Patient examined bedside with no overnight event. She denies any chest pain. Seen by cardiology and scheduled for cardiac cath later today. ASSESSMENT AND PLAN: 81F with PMH of RA, Hypothyroidism who p/w fall to [facility] and transferred for the evaluation and treatment of possible NSTEMI NSTEMI with Cardiomyopathy No chest pain today at rest, Feeling better The patient presents with chest pain after a fall. Troponin is elevated up to 8000 CXR ([facility] ED) reported as no acute cardiopulmonary abnormality Serial EKG shows NSR, no acute changes LDL 133, HDL 49 Mg wnl Echocardiogram shows EF 40%, severe hypokinesis of the mid to distal anteroseptal wall and apex, Nitroglycerin prn Morphine prn Telemetry Antiplatelet: Aspirin Anticoagulation: Heparin Drip Beta kristal therapy Cardiology was consulted, recommendation appreciated. For [facility] on Wednesday Mechanical Fall with right elbow laceration Right elbow XR ([facility] ED) reported as no Fx CT brain ([facility]) reported no acute intracranial process CT cervical spine without contrast ([facility] ED) reported DJD no acutebony injury Vit D, b12 are wnl TSH borderline low at 0.04 (Synthroid dosing better done in outpatient setting) PT/OT after cardiac cath Hyponatremia, Hypoalbuminemia Mild, outpatient follow up Check urine sodium and osmolality to further evaluate. Chronic Conditions: Unless mentioned Above, All chronic conditions are stable. home medications/treatment if any were continued DVT Px : Addressed Deposition: To be determined CC: Follow up for the conditions above. INTERVAL HPI: As Above, Pt resting in bed. feeling better anxious About the heart cath in the morning ROS: Denies any fever, abdominal pain Exam Physical Exam Vital Signs: Temp Pulse Resp BP Pulse Ox O2 Del Method 98.0 F 63 16 122/56 L 96 Room Air 01/05/22 08:00 01/05/22 08:00 01/05/22 08:00 01/05/22 08:00 01/05/22 08:00 01/05/22 08:00 Objective Lab Results CBC & Chem 7: 01/05/22 04:26 01/05/22 04:26 Meds Allergies and Active Meds Allergies No Known Allergies Allergy (Verified 01/02/22 19:02) Active Meds: Active Medications Generic Name Dose Route Start Last Admin Trade Name Freq PRN Reason Stop Dose Admin Acetaminophen 650 mg 01/02/22 19:49 01/03/22 21:49 Acetaminophen 325 Mg Tablet PO 01/02/23 19:48 650 mg Q6H PRN Administration Pain 1-5 or fever Alprazolam 0.5 mg 01/03/22 19:08 Alprazolam 0.5 Mg Tablet PO 07/02/22 19:07 Q6H PRN Anxiety Aspirin 81 mg 01/03/22 09:00 01/05/22 08:45 Aspirin 81 Mg Tab.Chew PO 01/03/23 08:59 81 mg DAILY RUSTY Administration Atorvastatin Calcium 40 mg 01/03/22 21:00 01/04/22 20:51 Atorvastatin 40 Mg Tablet PO 01/03/23 20:59 40 mg QPM RUSTY Administration Heparin Sodium (Porcine) 2,200 unit 01/02/22 19:49 01/04/22 22:25 Heparin *Protocol Bolus* 5,000 Unit/Ml Vial 40 unit/kg (2200 unit) 01/02/23 19:48 2,200 unit IV-PUSH Administration PROTOCOL PRN PTT 40-53 Heparin Sodium (Porcine) 4,000 unit 01/02/22 19:49 Heparin *Protocol Bolus* 5,000 Unit/Ml Vial IV-PUSH 01/02/23 19:48 PROTOCOL PRN PTT < 40 Dextrose/Sodium Chloride 1,000 mls @ 100 mls/hr 01/05/22 08:00 01/05/22 10:10 5 % Dextrose-0.45 % Nacl IV 01/05/23 07:59 100 mls/hr .Q10H RUSTY Administration Levothyroxine Sodium 100 mcg 01/03/22 06:30 01/05/22 07:35 Levothyroxine 100 Mcg Tablet PO 01/03/23 06:29 100 mcg DAILY@0630 RUSTY Administration Lisinopril 25 mg 01/03/22 09:00 01/05/22 08:44 Lisinopril 5 Mg Tablet PO 01/03/23 08:59 25 mg DAILY RUSTY Administration Metoprolol Tartrate 12.5 mg 01/02/22 21:00 01/05/22 08:45 Metoprolol Tartrate 12.5 Mg Tablet PO 01/02/23 20:59 12.5 mg BID RUSTY Administration Miscellaneous Information 1 each 01/04/22 11:39 Consult To Pharmacy MISCELLANE 01/04/23 11:38 .PHACONSULT PRN ZZ.Pharmacy Consult Protocol Morphine Sulfate 1 mg 01/02/22 19:49 Morphine Sulfate 2 Mg/Ml Vial IV-PUSH Q4H PRN Pain Scale 7 - 10 Nitroglycerin 0.4 mg 01/02/22 19:49 Nitroglycerin 0.4 Mg Tab.Subl SUBLINGUAL Q5MIN.X3 PRN Chest Pain Ondansetron HCl 4 mg 01/02/22 19:49 Ondansetron 4 Mg/2 Ml Vial IV-PUSH 01/02/23 19:48 Q6H PRN Nausea And Vomiting Oxycodone/Acetaminophen 1 tab 01/02/22 19:49 Oxycodone/Acetaminophen 5-325 Mg Tablet PO Q6H PRN Pain Scale 6 - 10 Potassium Chloride 40 meq 01/04/22 11:39 Potassium Chloride Er 20 Meq Tab.Er.Prt PO STAT PRN Hypokalemia Sodium Chloride 0 ml 01/04/22 11:39 Sodium Chloride 0.9 % 10 Ml Syringe IV-PUSH 01/04/23 11:38 PRN PRN Flush Zolpidem Tartrate 5 mg 01/03/22 19:08 Zolpidem 5 Mg Tablet PO 07/02/22 19:07 QHS PRN Sleep A&P - Hospitalist Assessment/Plan (1) NSTEMI (non-ST elevated myocardial infarction): (2) Hypertension: (3) Hypothyroid: Plan . Documented By: Vandana Torres MD 01/05/221120 Signed By: <Electronically signed by Vandana Torres MD> 01/05/22 [address] [facility] Work Phone: 1(433) 259-287410-24-2022 Progress note Author Gold Patrick [facility] January 05, 2022 11:26am Note Date/Time January 05, 2022 1 1:26am [facility] [address] [place] [address] Cardiology Progress Note Signed Patient: Cely Barbosa MR#: [id number] : 1940 Acct:[id number] Age/Sex: 81 / F Adm Date: 2 Loc: Room: [address] [place] [address] Type: ADM IN Attending Dr: Vandana Torres MD Copies to: ~ Date of Service: 01/05/2022 Subjective Interval history: No complaint. Echocardiogram showed LV systolic Exam Physical Exam Vital Signs: Temp Pulse Resp BP Pulse Ox O2 Del Method 98.0 F 63 16 122/56 L 96 Room Air 01/05/22 08:00 01/05/22 08:00 01/05/22 08:00 01/05/22 08:00 01/05/22 08:00 01/05/22 08:00 Eyes General: appearance normal, both eyes and all related structures Pupils: PERRL Neck Neck: normal visual inspection, supple and no lymphadenopathy noted Neck mass: No Thyroid: thyroid normal Carotids: normal carotid upstroke Chest Chest palpation & inspection: normal inspection of the chest Resp Effort & Inspection: normal respiratory effort Auscultation: clear to auscultation bilaterally Cardio Palpation: normal PMI Rate: regular rate Rhythm: regular rhythm Heart Sounds: S1 normal and S2 normal GI Palpation: soft and no hepatosplenomegaly Percussion: normal to percussion Auscultation: normal bowel sounds Skin General: no rashes or lesions noted and dry skin Neuro General: patient alert, patient awake, patient oriented x3, tone normal and moves all extremities Objective Labs CBC & Chem 7: 01/05/22 04:26 01/05/22 04:26 Labs: Laboratory Results - last 24 hr 01/04/22 01/04/22 01/05/22 14:31 21:46 04:26 Corrected WBC Uncorrected WBC Count RBC Hgb Hct MCV MCH MCHC RDW Plt Count MPV Neut % (Auto) Lymph % (Auto) Roane % (Auto) Eos % (Auto) Baso % (Auto) Neut # (Auto) Lymph # (Auto) Roane # (Auto) Eos # (Auto) Baso # (Auto) Nucleated RBC % (auto) PT INR APTT 46.6 H 51.9 H 103.6 H* PHA Creatinine Clear Sodium Potassium Chloride Carbon Dioxide Anion Gap BUN Creatinine Est GFR ( Amer) Est GFR (Non-Af Amer) Glucose Calcium 01/05/22 01/05/22 01/05/22 04:26 04:26 04:26 Corrected WBC 7.9 Uncorrected WBC Count 7.9 RBC 4.43 Hgb 12.8 Hct 38.3 MCV 86.4 MCH 28.8 MCHC 33.4 RDW 14.6 Plt Count 210 MPV 9.1 Neut % (Auto) 61.8 Lymph % (Auto) 25.1 Roane % (Auto) 9.2 Eos % (Auto) 2.9 Baso % (Auto) 1.0 Neut # (Auto) 4.9 Lymph # (Auto) 2.0 Roane # (Auto) 0.7 Eos # (Auto) 0.2 Baso # (Auto) 0.1 Nucleated RBC % (auto) 0.0 PT 12.4 INR 1.1 APTT 113.1 H* PHA Creatinine Clear 47.46 Sodium 131 L Potassium 4.2 Chloride 102 Carbon Dioxide 22.2 Anion Gap 11.0 BUN 10 Creatinine 0.83 Est GFR ( Amer) > 60 Est GFR (Non-Af Amer) > 60 Glucose 99 Calcium 8.5 01/05/22 06:26 Corrected WBC Uncorrected WBC Count RBC Hgb Hct MCV MCH MCHC RDW Plt Count MPV Neut % (Auto) Lymph % (Auto) Roane % (Auto) Eos % (Auto) Baso % (Auto) Neut # (Auto) Lymph # (Auto) Roane # (Auto) Eos # (Auto) Baso # (Auto) Nucleated RBC % (auto) PT INR APTT 43.0 H PHA Creatinine Clear Sodium Potassium Chloride Carbon Dioxide Anion Gap BUN Creatinine Est GFR ( Amer) Est GFR (Non-Af Amer) Glucose Calcium A&P - Cardiology (1) NSTEMI (non-ST elevated myocardial infarction): Assessment/Problem Details: Patient presented with large myocardial infarction. She had intermittent ST segment elevation but by the time she arrived over here she was completely chestpain- free and ECG changes seem to normalize. She did have significant troponin rise. At the time my assessment around 9:00 the patient had no further chest pain since last night 7 PM and appears to be stable Code(s): I21.4 - Non-ST elevation (NSTEMI) myocardial infarction Status: Acute (2) Hypertension: Code(s): I10 - Essential (primary) hypertension Status: Acute (3) Hypothyroid: Code(s): E03.9 - Hypothyroidism, unspecified Status: Acute (4) Rheumatoid arthritis: Code(s): M06.9 - Rheumatoid arthritis, unspecified Status: Acute (5) Ischemic cardiomyopathy: Code(s): I25.5 - Ischemic cardiomyopathy Status: Acute Plan 1. Standard therapy for acute coronary syndrome including aspirin, beta-kristal, IV heparin and nitrate as needed 2. plan to proceed with cardiac catheterization today. Risk, benefit alternative and possible need for PCI discussed with patient she understood and agreed. ative reviewed with the patient. If patient had any recurrence of her ischemic symptomatology will consider urgent cardiac cath Documented By: Gold Patrick MD 01/05/221124 Signed By: <Electronically signed by MD Gold Patrick> 01/05/221125 [facility] Work Phone: 1(950) 668-674010-24-2022 [facility] Progress note Author Jaya Bae [facility] January 04, 2022 6:30pm Note Date/Time January 04, 2022 6 :19pm [facility] [address] [place] [address] Hospitalist Progress Note Signed Patient: Cely Barbosa MR#: [id number] : 1940 Acct:[id number] Age/Sex: 81 / F Adm Date: 2 Loc: 4 Room: [address] [place] [address] Type: ADM IN Attending Dr: Jaya Bae MD Copies to: ~ Date of Service: 01/04/2022 Subjective Subjective Narrative: Hospitalist Progress Note ASSESSMENT AND PLAN: 81F with PMH of RA, Hypothyroidism who p/w fall to [facility] and transferred for the evaluation and treatment of possible NSTEMI NSTEMI with Cardiomyopathy No chest pain today at rest, Feeling better The patient presents with chest pain after a fall. Troponin is elevated up to 8000 CXR ([facility] ED) reported as no acute cardiopulmonary abnormality Serial EKG shows NSR, no acute changes LDL 133, HDL 49 Mg wnl Echocardiogram shows EF 40%, severe hypokinesis of the mid to distal anteroseptal wall and apex, Nitroglycerin prn Morphine prn Telemetry Antiplatelet: Aspirin Anticoagulation: Heparin Drip Beta kristal therapy Cardiology was consulted, recommendation appreciated. For [facility] on Wednesday Mechanical Fall with right elbow laceration Right elbow XR ([facility] ED) reported as no Fx CT brain ([facility] ED) reported no acute intracranial process CT cervical spine without contrast ([facility] ED) reported DJD no acutebony injury Vit D, b12 are wnl TSH borderline low at 0.04 (Synthroid dosing better done in outpatient setting) PT/OT after cardiac cath Hyponatremia, Hypoalbuminemia Mild, outpatient follow up Chronic Conditions: Unless mentioned Above, All chronic conditions are stable. home medications/treatment if any were continued DVT Px : Addressed Deposition: To be determined CC: Follow up for the conditions above. INTERVAL HPI: As Above, Pt resting in bed. feeling better anxious About the heart cath in the morning ROS: Denies any fever, abdominal pain Plan of care Discussed with: the medical team, the patient Exam Physical Exam Vital Signs: Temp Pulse Resp BP Pulse Ox O2 Del Method 36.3 C L 64 16 151/51 H 99 Room Air 01/04/22 16:00 01/04/22 16:00 01/04/22 16:00 01/04/22 16:00 01/04/22 16:00 01/04/22 16:00 Narrative: GEN: Pleasant, Cooperative, Not in acute distress. LUNGS: CTA. normal respiratory effort. CV: S1S2 nl, ? M/R/G ABD: Soft, ND, NT, + BS, ? HSM EXT: No edema in LE bilaterally, no calf muscle tenderness. RUE with bruises. right elbow dressed NEURO: ? FND PSYCH: nl affect, AOx3. Objective Lab Results CBC & Chem 7: 01/04/22 04:38 01/04/22 04:38 Meds Allergies and Active Meds Allergies No Known Allergies Allergy (Verified 01/02/22 19:02) Active Meds: Active Medications Generic Name Dose Route Start Last Admin Trade Name Freq PRN Reason Stop Dose Admin Acetaminophen 650 mg 01/02/22 19:49 01/03/22 21:49 Acetaminophen 325 Mg Tablet PO 01/02/23 19:48 650 mg Q6H PRN Administration Pain 1-5 or fever Alprazolam 0.5 mg 01/03/22 19:08 Alprazolam 0.5 Mg Tablet PO 07/02/22 19:07 Q6H PRN Anxiety Aspirin 81 mg 01/03/22 09:00 01/04/22 08:52 Aspirin 81 Mg Tab.Chew PO 01/03/23 08:59 81 mg DAILY RUSTY Administration Atorvastatin Calcium 40 mg 01/03/22 21:00 01/03/22 21:49 Atorvastatin 40 Mg Tablet PO 01/03/23 20:59 40 mg QPM RUSTY Administration Heparin Sodium (Porcine) 2,200 unit 01/02/22 19:49 01/04/22 15:32 Heparin *Protocol Bolus* 5,000 Unit/Ml Vial 40 unit/kg (2200 unit) 01/02/23 19:48 2,200 unit IV-PUSH Administration PROTOCOL PRN PTT 40-53 Heparin Sodium (Porcine) 4,000 unit 01/02/22 19:49 Heparin *Protocol Bolus* 5,000 Unit/Ml Vial IV-PUSH 01/02/23 19:48 PROTOCOL PRN PTT < 40 Heparin Sodium/Sodium Chloride 25,000 unit in 250 mls @ 7 mls/hr 01/02/22 20:00 01/04/22 15:32 Heparin IV 01/05/22 08:00 500 units/hr .Q24H RUSTY 5 mls/hr Titration Protocol 700 UNITS/HR Dextrose/Sodium Chloride 1,000 mls @ 100 mls/hr 01/05/22 08:00 5 % Dextrose-0.45 % Nacl IV 01/05/23 07:59 .Q10H RUSTY Levothyroxine Sodium 100 mcg 01/03/22 06:30 01/04/22 06:34 Levothyroxine 100 Mcg Tablet PO 01/03/23 06:29 100 mcg DAILY@0630 RUSTY Administration Lisinopril 25 mg 01/03/22 09:00 01/04/22 08:52 Lisinopril 5 Mg Tablet PO 01/03/23 08:59 25 mg DAILY RUSTY Administration Metoprolol Tartrate 12.5 mg 01/02/22 21:00 01/04/22 08:52 Metoprolol Tartrate 12.5 Mg Tablet PO 01/02/23 20:59 12.5 mg BID RUSTY Administration Miscellaneous Information 1 each 01/04/22 11:39 Consult To Pharmacy MISCELLANE 01/04/23 11:38 .PHACONSULT PRN ZZ.Pharmacy Consult Protocol Morphine Sulfate 1 mg 01/02/22 19:49 Morphine Sulfate 2 Mg/Ml Vial IV-PUSH Q4H PRN Pain Scale 7 - 10 Nitroglycerin 0.4 mg 01/02/22 19:49 Nitroglycerin 0.4 Mg Tab.Subl SUBLINGUAL Q5MIN.X3 PRN Chest Pain Ondansetron HCl 4 mg 01/02/22 19:49 Ondansetron 4 Mg/2 Ml Vial IV-PUSH 01/02/23 19:48 Q6H PRN Nausea And Vomiting Oxycodone/Acetaminophen 1 tab 01/02/22 19:49 Oxycodone/Acetaminophen 5-325 Mg Tablet PO Q6H PRN Pain Scale 6 - 10 Potassium Chloride 40 meq 01/04/22 11:39 Potassium Chloride Er 20 Meq Tab.Er.Prt PO STAT PRN Hypokalemia Sodium Chloride 0 ml 01/04/22 11:39 Sodium Chloride 0.9 % 10 Ml Syringe IV-PUSH 01/04/23 11:38 PRN PRN Flush Zolpidem Tartrate 5 mg 01/03/22 19:08 Zolpidem 5 Mg Tablet PO 07/02/22 19:07 QHS PRN Sleep A&P - Hospitalist Assessment/Plan (1) NSTEMI (non-ST elevated myocardial infarction): (2) Hypertension: (3) Hypothyroid: Plan . Documented By: Jaya Bae MD 01/04/221816 Signed By: <Electronically signed by Jaya Bae MD> 01/04/221829 [facility] Work Phone: [phone] 792-374210-23-2022 Progress note Author Gold Patrick [facility] January 04, 2022 11:39am Note Date/Time January 04, 2022 1 1:38am [facility] [address] [place] [address] Cardiology Progress Note Signed Patient: Cely Barbosa MR#: [id number] : 1940 Acct:[id number] Age/Sex: 81 / F Adm Date: 2 Loc: Room: [address] [place] [address] Type: ADM IN Attending Dr: Jaya Bae MD Copies to: ~ Date of Service: 01/04/2022 Subjective Interval history: No complaint. Echocardiogram showed LV systolic Exam Physical Exam Vital Signs: Temp Pulse Resp BP Pulse Ox O2 Del Method 98.8 F 62 16 147/64 H 98 Room Air 01/04/22 08:00 01/04/22 08:00 01/04/22 08:00 01/04/22 08:00 01/04/22 08:00 01/04/22 08:00 Eyes General: appearance normal, both eyes and all related structures Pupils: PERRL Neck Neck: normal visual inspection, supple and no lymphadenopathy noted Neck mass: No Thyroid: thyroid normal Carotids: normal carotid upstroke Chest Chest palpation & inspection: normal inspection of the chest Cardio Palpation: normal PMI Rate: regular rate Rhythm: regular rhythm Heart Sounds: S1 normal and S2 normal Neuro General: patient alert, patient awake, patient oriented x3, tone normal and moves all extremities Extrem General: full ROM, capillary refill normal and no clubbing, cyanosis or edema Objective Labs CBC & Chem 7: 01/04/22 04:38 01/04/22 04:38 Labs: Laboratory Results - last 24 hr 01/03/22 01/03/22 01/03/22 11:32 17:52 23:48 Corrected WBC Uncorrected WBC Count RBC Hgb Hct MCV MCH MCHC RDW Plt Count MPV Neut % (Auto) Lymph % (Auto) Roane % (Auto) Eos % (Auto) Baso % (Auto) Neut # (Auto) Lymph # (Auto) Roane # (Auto) Eos # (Auto) Baso # (Auto) Nucleated RBC % (auto) PT INR APTT 42.8 H 48.8 H 124.4 H* PHA Creatinine Clear Sodium Potassium Chloride Carbon Dioxide Anion Gap BUN Creatinine Est GFR ( Amer) Est GFR (Non-Af Amer) Glucose Calcium 01/04/22 01/04/22 01/04/22 01:56 04:38 04:38 Corrected WBC 5.7 Uncorrected WBC Count 5.7 RBC 4.46 Hgb 12.8 Hct 38.6 MCV 86.6 MCH 28.7 MCHC 33.2 RDW 14.6 Plt Count 192 MPV 9.4 Neut % (Auto) 53.5 Lymph % (Auto) 32.1 Roane % (Auto) 10.5 Eos % (Auto) 2.9 Baso % (Auto) 1.0 Neut # (Auto) 3.0 Lymph # (Auto) 1.8 Roane # (Auto) 0.6 Eos # (Auto) 0.2 Baso # (Auto) 0.1 Nucleated RBC % (auto) 0.1 PT INR APTT 59.2 H PHA Creatinine Clear 47.46 Sodium 132 L Potassium 3.9 Chloride 101 Carbon Dioxide 23.1 Anion Gap 11.8 BUN 11 Creatinine 0.83 Est GFR ( Amer) > 60 Est GFR (Non-Af Amer) > 60 Glucose 96 Calcium 8.5 01/04/22 01/04/22 04:38 08:31 Corrected WBC Uncorrected WBC Count RBC Hgb Hct MCV MCH MCHC RDW Plt Count MPV Neut % (Auto) Lymph % (Auto) Roane % (Auto) Eos % (Auto) Baso % (Auto) Neut # (Auto) Lymph # (Auto) Roane # (Auto) Eos # (Auto) Baso # (Auto) Nucleated RBC % (auto) PT 13.2 H INR 1.2 APTT 44.7 H 59.1 H PHA Creatinine Clear Sodium Potassium Chloride Carbon Dioxide Anion Gap BUN Creatinine Est GFR ( Amer) Est GFR (Non-Af Amer) Glucose Calcium A&P - Cardiology (1) NSTEMI (non-ST elevated myocardial infarction): Assessment/Problem Details: Patient presented with large myocardial infarction. She had intermittent ST segment elevation but by the time she arrived over here she was completely chestpain- free and ECG changes seem to normalize. She did have significant troponin rise. At the time my assessment around 9:00 the patient had no further chest pain since last night 7 PM and appears to be stable Code(s): I21.4 - Non-ST elevation (NSTEMI) myocardial infarction Status: Acute (2) Hypertension: Code(s): I10 - Essential (primary) hypertension Status: Acute (3) Hypothyroid: Code(s): E03.9 - Hypothyroidism, unspecified Status: Acute (4) Rheumatoid arthritis: Code(s): M06.9 - Rheumatoid arthritis, unspecified Status: Acute (5) Ischemic cardiomyopathy: Code(s): I25.5 - Ischemic cardiomyopathy Status: Acute Plan 1. Standard therapy for acute coronary syndrome including aspirin, beta-kristal, IV heparin and nitrate as needed 2. Start statin therapy 3. If remains stable we will proceed with cardiac catheterization tomorrow y. Risk, benefit alternative reviewed with the patient. If patient had any recurrence of her ischemic symptomatology will consider urgent cardiac cath Documented By: Gold Patrick MD 01/04/221137 Signed By: <Electronically signed by MD Gold Patrick> 01/04/229 [facility] Work Phone: [phone] 524-987510-23-2022 Progress note Author Jaya Bae [facility] January 04, 2022 12:52am Note Date/Time January 03, 2022 7 :13pm [facility] [address] [place] [address] Hospitalist Progress Note Signed Patient: Cely Barbosa MR#: [id number] : 1940 Acct:[id number] Age/Sex: 81 / F Adm Date: 2 Loc: Room: [address] [place] [address] Type: ADM IN Attending Dr: Jaya Bae MD Copies to: ~ Date of Service: 01/03/2022 Subjective Subjective Narrative: Hospitalist Progress Note ASSESSMENT AND PLAN: 81F with PMH of RA, Hypothyroidism who p/w fall to [facility] and transferred for the evaluation and treatment of possible NSTEMI NSTEMI with Cardiomyopathy No chest pain today at rest The patient presents with chest pain after a fall. Troponin is elevated up to 8000 CXR ([facility] ED) reported as no acute cardiopulmonary abnormality Serial EKG shows NSR, no acute changes LDL 133, HDL 49 Mg wnl Echocardiogram shows EF 40%, severe hypokinesis of the mid to distal anteroseptal wall and apex, Nitroglycerin prn Morphine prn Telemetry Antiplatelet: Aspirin Anticoagulation: Heparin Drip Beta kristal therapy Cardiology was consulted, recommendation appreciated. For [facility] on Wednesday Mechanical Fall with right elbow laceration Right elbow XR ([facility] ED) reported as no Fx CT brain ([facility] ED) reported no acute intracranial process CT cervical spine without contrast ([facility] ED) reported DJD no acutebony injury Vit D, b12 are wnl TSH borderline low at 0.04 (Synthroid dosing better done in outpatient setting) PT/OT after cardiac cath Hyponatremia, Hypoalbuminemia Mild, outpatient follow up Chronic Conditions: Unless mentioned Above, All chronic conditions are stable. home medications/treatment if any were continued DVT Px : Addressed Deposition: To be determined CC: Follow up for the conditions above. INTERVAL HPI: As Above, Pt resting in bed. feeling little . anxious about the [facility] will add xanax as needed ROS: Denies any fever, abdominal pain Plan of care Discussed with: the medical team, the patient Exam Physical Exam Vital Signs: Temp Pulse Resp BP Pulse Ox O2 Del Method 36.6 C 62 14 127/66 98 Room Air 01/03/22 17:00 01/03/22 17:00 01/03/22 17:00 01/03/22 17:00 01/03/22 17:00 01/03/22 17:00 Narrative: GEN: Pleasant, Cooperative, Not in acute distress. LUNGS: CTA. normal respiratory effort. CV: S1S2 nl, ? M/R/G ABD: Soft, ND, NT, + BS, ? HSM EXT: No edema in LE bilaterally, no calf muscle tenderness. RUE with bruises . right elbow dressed NEURO: ? FND PSYCH: nl affect, ? hallucinations, nl speech, AOx3. Objective Lab Results CBC & Chem 7: 01/03/22 04:43 01/02/22 20:45 Meds Allergies and Active Meds Allergies No Known Allergies Allergy (Verified 01/02/22 19:02) Active Meds: Active Medications Generic Name Dose Route Start Last Admin Trade Name Neo PRN Reason Stop Dose Admin Acetaminophen 650 mg 01/02/22 19:49 01/03/22 04:19 Acetaminophen 325 Mg Tablet PO 01/02/23 19:48 650 mg Q6H PRN Administration Pain 1-5 or fever Aspirin 81 mg 01/03/22 09:00 01/03/22 08:46 Aspirin 81 Mg Tab.Chew PO 01/03/23 08:59 81 mg DAILY RUSTY Administration Atorvastatin Calcium 40 mg 01/03/22 21:00 Atorvastatin 40 Mg Tablet PO 01/03/23 20:59 QPM RUSTY Heparin Sodium (Porcine) 2,200 unit 01/02/22 19:49 01/03/22 18:11 Heparin *Protocol Bolus* 5,000 Unit/Ml Vial 40 unit/kg (2200 unit) 01/02/23 19:48 2,200 unit IV-PUSH Administration PROTOCOL PRN PTT 40-53 Heparin Sodium (Porcine) 4,000 unit 01/02/22 19:49 Heparin *Protocol Bolus* 5,000 Unit/Ml Vial IV-PUSH 01/02/23 19:48 PROTOCOL PRN PTT < 40 Heparin Sodium/Sodium Chloride 25,000 unit in 250 mls @ 7 mls/hr 01/02/22 20:00 01/03/22 18:11 Heparin IV 01/02/23 19:59 600 units/hr .Q24H RUSTY 6 mls/hr Titration Protocol 700 UNITS/HR Levothyroxine Sodium 100 mcg 01/03/22 06:30 01/03/22 06:40 Levothyroxine 100 Mcg Tablet PO 01/03/23 06:29 100 mcg DAILY@0630 RUSTY Administration Lisinopril 25 mg 01/03/22 09:00 01/03/22 08:46 Lisinopril 5 Mg Tablet PO 01/03/23 08:59 25 mg DAILY RUSTY Administration Metoprolol Tartrate 12.5 mg 01/02/22 21:00 01/03/22 08:46 Metoprolol Tartrate 12.5 Mg Tablet PO 01/02/23 20:59 12.5 mg BID RUSTY Administration Morphine Sulfate 1 mg 01/02/22 19:49 Morphine Sulfate 2 Mg/Ml Vial IV-PUSH Q4H PRN Pain Scale 7 - 10 Nitroglycerin 0.4 mg 01/02/22 19:49 Nitroglycerin 0.4 Mg Tab.Subl SUBLINGUAL Q5MIN.X3 PRN Chest Pain Ondansetron HCl 4 mg 01/02/22 19:49 Ondansetron 4 Mg/2 Ml Vial IV-PUSH 01/02/23 19:48 Q6H PRN Nausea And Vomiting Oxycodone/Acetaminophen 1 tab 01/02/22 19:49 Oxycodone/Acetaminophen 5-325 Mg Tablet PO Q6H PRN Pain Scale 6 - 10 A&P - Hospitalist Assessment/Plan (1) NSTEMI (non-ST elevated myocardial infarction): (2) Hypertension: (3) Hypothyroid: Plan . Documented By: Jaya Bae MD 01/03/221908 Signed By: <Electronically signed by Jaya Bae MD> 01/04/22 005 [facility] Work Phone: [phone] 446-146910-22-2022 Consult note Author Gold Patrick [facility] January 03, 2022 1:48pm Note Date/Time January 03, 2022 1 :39pm [facility] [address] [place] [address] Cardiology Consult Note Signed Patient: Cely Barbosa MR#: [id number] : 1940 Acct:[id number] Age/Sex: 81 / F Adm Date: 2 Loc: Room: [address] [place] [address] Type: ADM IN Attending Dr: Jaya Bae MD Copies to: MD Jaya Vicente MD Mourhaf A Traboulssi, MD~ Cardiology HPI History of Present Illness Consult Date: 01/03/22 Reason for Consult: Cardiac consultation requested for evaluation for acute coronary syndrome HPI: Ms. Barbosa is a 81 year old female with no prior history of coronary artery disease. She reports yesterday while outside apparently she fell because of theevent. Following that she started to feel some chest pressure, shortness of breath, diaphoresis, lightheadedness and mild nausea. Symptoms did not improve. Symptoms started according to her around 11:00. She went to [facility] where a suspicion of acute coronary syndrome. She was treated appropriately andwas transferred over here. She arrived over here around 6:00 by then her symptoms seem to have subsided. I reviewed several EKG she appears to have intermittent ST segment elevation in V2 to V6 however this seemed to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 here to establish care. Recently underwent 3vCABG (PABLO-LAD, SVG-OM, SVG-diagonal) after NSTEMI. She has done very well post-operatively. She did have some hyponatremia during her hospitalization for which nephrology was consulted and for which she will be seeing in a couple weeks. Most recent Na 133+. She is wearing compression stockings and has noticed an improvement in R leg swelling s/p vein harvesting. No chest pain, SOB, palpitations.-[facility] [address] DO Work Phone: History of Present illness Narrative* She is here for a new patient visit * She is here for follow-up after being admitted at [facility] after a mechanical fall andshe underwent a coronary artery bypass graft surgery. * She was seen also secondary to hyponatremia she has chronic hyponatremia per records with baseline sodium per the records of 04 12- * She was on urea packets, Lasix as needed and a sodium bicarbonate when she was in the hospital in [place] * In December a urine osmolality was measured at 400 and a urine sodium was measured at 45 pretty consistent with SIADH. * Her most recent metabolic panel was scanned in on February 11 * Sodium is 133 potassium 3.2 bicarb is 25 BUN is 13 with a creatinine of 0.77 albumin is just on thelow side at 3.2 * Medications currently include aspirin, atorvastatin, Plavix, levothyroxine, lisinopril, sodium bicarbonate and metoprolol. * She is doing pretty well. * She has no CP. * She has itching. * She livis in [place]. * She * She is limiting her fluid intake with 6 cups per day. [facility] Work Phone: History of Present illness H[age]tyzesoe70 yo female here for follow-up. She was recently participating in cardiac rehab as she is s/p CABGand was noted to have frequent PVCs during that time. She states she was asymptomatic during this episode. She was advised to f/u with cardiology. She was also seen by nephrology who is managing hyponatremia.[facility] Work Phone: Hospital Discharge instructionsAmbulatory Orders* DME Home Medical Equipment Time Frame: 1 Day, Location: Determined By Patient Additional Instructions [facility] to manage care: - Full code - Routine vital signs - Right upper arm, right hand and left forearm skin tear- Clean with NS and pat dry. Apply Hydrogel to the wound bed. Top with Adaptic and 4x4 gauze. Secure with conform and paper tape. To the right hand top with Adaptic and Telfa and secure with opsite. Change daily and as needed. DISCHARGE INSTRUCTIONS FOR CARDIAC PLATING ENGINEER PHONE NUMBER OF YOUR PHYSICIAN: [phone] PROCEDURE: Heart Cath The following instructions have been prepared to help you care for yourself, or be cared for upon your return home. 1. You were given conscious sedation. Do not operate a vehicle, power tools, make important decisions, or drink alcohol for 24 hours. You might be drowsy or light headed. Return to the Emergency Room if you have trouble breathing, walking or nausea and vomiting. 2. FOR BLEEDING: Apply continuous pressure to the site and call 911. 3. Operative Site Care: Keep the dressing clean and dry. You may change the dressing only if soiled or wet. You may remove the dressing the following morning. You may wash over the puncture site in the shower. If the puncture site is at the wrist no soaking for 3 days. Some bruising or slight swelling may be present. -Signs of infection are redness, warmth, swelling, getting more sore, colored drainage, fever or chills. -Should the arm or leg become cold, numb, blue or white, call the brush sander immediately. 4. ACTIVITY: You are advised to go directly home from the hospital. Restrict your activities for the rest of the day. Resume light or normal activities tomorrow. Do not engage in any activity that will stress the puncture site. Avoid heavy lifting (over 15 lbs.), straining or bending at the catheter site for 48 hours after discharge. If the puncture site is at the wrist do not manipulate wrist for 24 hours and no lifting more than 3 lbs for 3 days. 5. DIET:You may eat your regular diet when you desire. 6. MEDICATIONS: Resume your daily prescription schedule. Prescriptions may be sent with you if needed. Use as directed. When taking pain medications, you may experience dizziness or drowsiness. Do not drink alcohol or drive when taking pain medications. 7. If you should experience episodes of angina e.g. chest discomfort, heaviness, tightness, pressure, burning, with or without radiation to the neck, jaws, arms, or back- Use 1 Nitrostat under your tongue every 5-10 minutes, and up to 3 tablets. If no relief- Call 911 and go to the nearest Emergency Room. -Notify the office for recurrent angina, chest pain or other concerns. You may NOT drive yourself home! Follow the medication instructions provided on your discharge. If the dosages and instructions on this sheet differ from the dosage and instructions on the bottle, follow the instructions on the bottle. [facility] is not responsible for incorrect prescription information provided by the patient during their visit. Do not stop your medications without consulting your health care provider. Please take the list with you to your next doctor's appointment.[facility] Work Phone: Hospital Discharge instructions* Activity:Weight- bearing Instructions: weight-bearing as tolerated. Other activity instructions: As part of your recovery process you will be referred to cardiac rehab as an outpatient. After your discharge from the hospital and home recovery period, you will have your follow up visit with your brush sander. They will clear you to exercise and further refer you to an outpatient cardiac rehab facility. Please call [facility] at [phone] extension [phone] to set up future appointments. * Labs 1 (Modify Template):Lab Test(s): Basic Metabolic Panel, CBC, MagnesiumDate To Be Drawn: Twice weekly on Mondays and while in [facility]/ rehab * Oxygen:Other Instructions incentive spirometer 10x/ hr while awake. * Additional Orders:Vital Signs: Every shiftWeight: daily weights; keep a log and bring to all of your appointmentsAdditional Instructions: Keep Your Move in the Tube!! And think of a [employer] dinosaur! Please refer to the Move in the Tube handout. Load bearing activities can be completed if you are staying in the tube. If you are attempting load bearing activities, let pain be your guide with when trying an activity out of the tube . If an activity hurts or is uncomfortable go back to doing it while you stay in the tube . There is no time limit to stay in the tube . Non-load bearing activities which are your activities of daily living can be completed with your arms out of the tube as long as you remain pain free. Some activities of daily living examples are dressing, personal care, showering, washing hair, and toilet hygiene. * Activity:- Continue to increase activity and use incentive spirometer, cough and deep breathing. - Pace activities as tolerated. Avoid heavy physical exertion and lifting. Balance rest periods with activity. - All medication refills will be obtained from the Primary Care Provider or Clerical Manager. -For severe chest pain, extreme shortness of breath, coughing up frothy sputum, or fainting, GO DIRECTLY TO THE EMERGENCY ROOM OR CALL 911 IF YOU HAVE ANY OF THESE SYMPTOMS. - No pushing, pulling, or lifting objects greater than 10 pounds for 3 months (sternal precautions). - MAY shower. - MAY NOT drive for 4 to 6 weeks, until follow up visit with the surgeon. Discuss driving at your follow-up appointment. - Maintain a daily weight log. Use same scale, before breakfast, after voiding. Take the log to your follow-up appointments. - Inform Radiology of retained epicardial pacing wires if you ever need a MRI. Make an appointment with the Cardiac Surgeon if the wires ever poke out, or if you develop chronic drainage or pain from the site of the previous wires. No NSAIDs (common [id number] NSAIDs are ibuprofen/Motrin/Advil, naproxen/Naprosyn/Aleve) for 3 months after cardiac surgery; ifNSAIDs needed after 3 months, clear use with brush sander before starting. * Wound Instructions:- Cleanse incisions with soap and water daily. No dressing, leave open to air. No lotions, creams or tub soaks/swimming until healed. * Call Provider If:- Redness, drainage or other problems with incisions, notify the Cardiac Surgeon'soffice. - Signs and symptoms of Heart Failure: call your Clerical Manager if you have weight gain of 3 pounds or more in less than 3 days; shortness of breath at rest, with activity, or when lying flat; dizziness or fainting. - Notify the Cardiac Surgeon s office of any readmission to a hospital beforeyour follow-up appointment with the Cardiac Surgeon. * Care Recommendation:I recommend that INPATIENT care is required at: SkilledEstimated Stay: Convalescent stay < 30 daysPrognosis: GoodRehab Potential/Function: Improve * Therapy Orders:Occupational Therapy Orders: [facility] ([facility]), dailyPhysical Therapy Orders: [facility]), daily * Follow Up Appointment 1:Physician/Dept/Service: Dr. Albin Champagne, cardiac surgeonScheduled Date/Time: 27-Feb-2022 12:00[facility]: [facility] [phone]: 02/27at 12pm for chest xray in [facility] 5th floor radiology, then 1pm for appointment in [place] [address] * Follow Up Appointment 2:Physician/Dept/Service: Dr. Jonathon Kaur, PCPLocation: [facility]; [address] [place], [place] [address]Phone Number: [phone] * Follow Up Appointment 3:Physician/Dept/Service: Dr. Miri Hill, CardiologyReason for Referral: Heart Failure and General CardiologyScheduled Date/Time: 13-Feb-2022 11:15Location: [facility]; [address] [facility], [place] [address]Phone Number: [phone]: Please bring insurance information and photo ID * Follow Up Appointment 4:Physician/Dept/Service: Dr. Sivakumar Corbett, Vascular SurgeryReason for Referral: carotid stenosisScheduled Date/Time: 03-Apr-2022 09:15Location: [address] [facility], [facility] [address] [address]Pjgoq Number: [phone]: Please bring insurance information and photo ID * Follow Up Appointment 5:Physician/Dept/Service: Dr. Kvng Romo, NephrologyScheduled Date/Time: 17-Feb-2022 13:45Location: [address] [facility], [facility] [address] [address]Bievp Number: [phone]: Please bring insurance information and photo ID * IV Hydration:Type Of Vascular Access: Peripheral IVPeripheral IV #1 Insertion Date: [id number] IV #1 Location: left basilic vein (medial side of arm)Device #1: butterfly cathPeripheral IV #1 Gauge: 22 gauge * Safety:Siderails: noRestraints: noSitter: noFall Risk: dizziness, weakness * Incision 1:Location: MidsternumAppearance: WNLDressing: SOPHIE * Community Support:Support System: [facility] Summary Purpose Family History No Family History Records Found Relationship Condition Age at Onset Recorded Date/T ana Not Specified Coronary artery disease Unknown Unknown Family Member Name Dates Details Family history of diabetes m ellitus: Sister(V18.0, Z83.3) Status:Active Family history of myocardial infarction: Father, Brother(V17.3, Z82.49) Status:Active History of PTCA: Brother(V45 .82, Z98.61) Status:Active Status post heart valve repl acement: Mother(V43.3, Z95.4) Status:Active Unknown Family Member Name Dates Details Family history of diabetes m ellitus: Sister(V18.0, Z83.3) Status:Active Family history of myocardial infarction: Father, Brother(V17.3, Z82.49) Status:Active History of PTCA: Brother(V45 .82, Z98.61) Status:Active Status post heart valve repl acement: Mother(V43.3, Z95.4) Status:Active Unknown Family Member Name Dates Details Family history of diabetes m ellitus: Sister(V18.0, Z83.3) Status:Active Family history of myocardial infarction: Father, Brother(V17.3, Z82.49) Status:Active History of PTCA: Brother(V45 .82, Z98.61) Status:Active Status post heart valve repl acement: Mother(V43.3, Z95.4) Status:Active Unknown Family Member Name Dates Details Family history of diabetes m ellitus: Sister(V18.0, Z83.3) Status:Active Family history of myocardial infarction: Father, Brother(V17.3, Z82.49) Status:Active History of PTCA: Brother(V45 .82, Z98.61) Status:Active Status post heart valve repl acement: Mother(V43.3, Z95.4) Status:Active Unknown Family Member Name Dates Details Family history of diabetes m ellitus: Sister(V18.0, Z83.3) Status:Active Family history of myocardial infarction: Father, Brother(V17.3, Z82.49) Status:Active History of PTCA: Brother(V45 .82, Z98.61) Status:Active Status post heart valve repl acement: Mother(V43.3, Z95.4) Status:Active Unknown Family Member Name Dates Details Family history of diabetes m ellitus: Sister(V18.0, Z83.3) Status:Active Family history of myocardial infarction: Father, Brother(V17.3, Z82.49) Status:Active History of PTCA: Brother(V45 .82, Z98.61) Status:Active Status post heart valve repl acement: Mother(V43.3, Z95.4) Status:Active Unknown Family Member Name Dates Details Family history of diabetes m ellitus: Sister(V18.0, Z83.3) Status:Active Family history of myocardial infarction: Father, Brother(V17.3, Z82.49) Status:Active History of PTCA: Brother(V45 .82, Z98.61) Status:Active Status post heart valve repl acement: Mother(V43.3, Z95.4) Status:Active Relationship Condition Age at Onset Recorded Date/T ana Not Specified Coronary artery disease Unknown father Unknown Not Specified Unknown Relationship Condition Age at Onset Recorded Date/T ana Not Specified Coronary artery disease Unknown father Unknown mother Unknown Advance Directives No Advanced Directives Records Found Advance Directive Response Recorded Date/ Time Advance Directives No June 20 2:51pm Advance Directive Response Recorded Date/ Time Advance Directives No June 20 1:51pm Chief Complaint and Reason for Visit Chief Complaint M05.79 M15.0 Z79.899 N stemi Reason for Visit Hypertension Hypothyroid Ischemic cardiomyopathy NSTEMI (non-ST elevated myocardial infarction) Rheumatoid arthritis Chief Complaint N stemi E87.1 Reason for Visit Hypertension Hypothyroid Ischemic cardiomyopathy NSTEMI (non-ST elevated myocardial infarction) Rheumatoid arthritis Chief Complaint I65.23 Chief Complaint I65.23 6 month follow up; Carotid U/S at 12:00pm Reason for Visit Bilateral carotid ar ramya stenosis Chief Complaint M05.79 M15.0 Z79.899 Chief Complaint CELY BARBOSA is being seen for Dr. Albin Pierce- Post CABG, HF, HTN.* NPV- Hospital follow up/ Hyponatremia * Labs 02/11/2022 Patient is here for a P/OP visit following CABG x3 done on January 12, 2022. Rehan CASTAÑEDAN, RN-BC.CELY BARBOSA is being seen for a medication change. Dizzness and fatigue. Additional Source Comments INFORMATION SOURCE (unrecogn ized section and content) DATE CREATED AUTHOR 01/07/2022 [employer] [facility] DATE CREATED AUTHOR AUTHOR'S ORGANIZ ATION 04/13/2022 [employer] DATE CREATED AUTHOR AUTHOR'S ORGANIZ ATION 07/02/2022 [facility] DATE CREATED AUTHOR AUTHOR'S ORGANIZ ATION 02/11/2023 [facility] DATE CREATED AUTHOR AUTHOR'S ORGANIZ ATION 07/15/2023 [facility] EPIC DATE CREATED AUTHOR AUTHOR'S ORGANIZ ATION 10/04/2023 [facility] DATE CREATED AUTHOR AUTHOR'S ORGANIZ ATION 10/04/2023 [facility] Care Teams (unrecognized sec tion and content) Team Status: Inactive Member Role Status Dates PHYSICIAN NO FAMILY Primary Care Provider Active DIANA Merida Attending Provider Active Team Status: Inactive Member Role Status Dates Jonathon Kaur MD Primary Care Provider Active Kyree Blair MD Admit Provider Active Sandrine Flanagan RN Other Provider Active Tee Braun , Other Provider Active Solitario Lucas MD Other Provider Active Felipe Cabezas MD Other Provider Active Gold Patrick MD Other Provider Active Nikolai Egan MD Other Provider Active Sydney Rivas , EMAIL ADMINISTRATOR Other Provider Active Jillian Hernandez MD Other Provider Active Jono Jenkins MD Other Provider Active Wilmer Guzman MD Other Provider Active Noelle Ramírez , [facility]- Other Provider Active Miri Hill MD Other Provider Active Vandana Torres MD Attending Provider Active Team Status: Active Member Role Status Dates Jonathon Kaur MD Primary Care Provider Active Team Status: Inactive Member Role Status Dates Jonathon Kaur MD Primary Care Provider Active Kvng Romo DO Attending Provider Active Team Status: Inactive Member Role Status Dates Jonathon Kaur MD Primary Care Provider Active DIANA Merida Attending Provider Active Team Status: Inactive Member Role Status Dates Jonathon Kaur MD Primary Care Provider Active Blake Zhao MD Attending Provider Active Team Status: Inactive Member Role Status Dates Jonathon Kaur MD Primary Care Provider Active S tart: May 25, 2023 End: May 25, 2023 Blake Zhao MD Attending Provider Active S tart: May 25, 2023 End: May 25, 2023 Team Status: Inactive Member Role Status Dates Jonathon Kaur MD Primary Care Provider Active S tart: June 03, 2023 End: June 03, 2023 DIANA Merida Attending Provider Active Start: June 03, 2023 End: June 03, 2023 Team Status: Inactive Member Role Status Dates Jonathon Kaur MD Primary Care Provider Active S tart: September 23, 2023 End: September 23, 2023 DIANA Merida Attending Provider Active Start: September 23, 2023 End: September 23, 2023 <item> Privacy Markings (unrecogniz ed section and content) Section Author: Ronda Vazquez PROHIBITION ON REDISCLOSURE OF CONFIDENTIAL INFORMATION This notice accompanies a disclosure of information concerning a client made to you with the consent of such client. Reason for Visit (unrecogniz ed section and content) Event Monitor: Costa is on ly wearing monitor for 5 daysCELY is here for the application of a 30 day event monitor in office., Diagnosis: lightheaded and PVCOrdering Physician: Dr. Miri Hill MDEnrollment sent to: Acumentricsor number [id number] applied.URGENT REF FOR RIGHT ICA GREATER THATN 70%, Abnormal carotid duplex2 WK FOLLOW UP; CT[facility] 04/08/22, Follow-up carotid stenosis Goals (unrecognized section and content) Goals may be documented in a n alternate section FOR RECORDS PERTAINING TO PATIENTS WHO ARE OR HAVE BEEN ENROLLED IN A CHEMICAL DEPENDENCY/SUBSTANCEABUSE PROGRAM, SOME INFORMATION MAY BE OMITTED. This clinical summary was aggregated from multiple sources. Caution should be exercised in using it in the provision of clinical care. This summary normalizes information from multiple sources, and as a consequence, information in this document may materially change the coding, format and clinical context of patient data. In addition, data may be omitted in some cases. CLINICAL DECISIONS SHOULD BE BASED ON THE PRIMARY CLINICAL RECORDS. [facility]. provides no warranty or guarantee of the accuracy or completeness of information in this document.
[2023-10-07 16:22] LABS: BUN Creatinine Ratio 23.1; Calcium 9.2 mg/dL (8.5-10.1); Carbon Dioxide 25.8 mmol/L (21.0-32.0); Chloride 97 mmol/L (98-107); Estimated GFR (African America >60 (>=60); Estimated GFR (Non-African Ame 59 (>=60); Glucose 129 mg/dL (74-106); Potassium 3.8 mmol/L (3.5-5.1); Sodium 132 mmol/L (136-145)
== END 2023-10-07 15:46 | disposition home or self-care (01) ==
LOC: LAB 15:45
PROVIDERS: Family Provider Internal Medicine Interventional Cardiology; PCP Family Medicine; Visit Provider Family Medicine
DX: Z79.899 Other long term (current) drug therapy (principal)
CPT/HCPCS: 36415; 80048

== ENCOUNTER 2023-10-28 12:51 | Outpatient (OUT) | payer MEDICARE, OTHER, SELFPAY ==
[2023-10-28 15:58] LABS: Anion Gap 13.8; BUN Creatinine Ratio 26.1; Calcium 9.2 mg/dL (8.5-10.1); Carbon Dioxide 26.1 mmol/L (21.0-32.0); Chloride 89 mmol/L (98-107); Estimated GFR (African America >60 (>=60); Estimated GFR (Non-African Ame >60 (>=60); Glucose 110 mg/dL (74-106); Potassium 3.9 mmol/L (3.5-5.1); Sodium 125 mmol/L (136-145)
== END 2023-10-28 12:52 | disposition home or self-care (01) ==
LOC: LAB 11-01 12:52
PROVIDERS: Family Provider Internal Medicine Interventional Cardiology; PCP Family Medicine; Visit Provider Internal Medicine Interventional Cardiology
DX: I10 Essential (primary) hypertension (principal)
CPT/HCPCS: 36415; 80048

== ENCOUNTER 2023-11-11 10:22 | Outpatient (OUT) | payer MEDICARE, OTHER, SELFPAY ==
[2023-11-11 11:20] LABS: Anion Gap 12.4; BUN Creatinine Ratio 25.3; Calcium 8.9 mg/dL (8.5-10.1); Carbon Dioxide 25.9 mmol/L (21.0-32.0); Chloride 95 mmol/L (98-107); Estimated GFR (African America >60 (>=60); Estimated GFR (Non-African Ame >60 (>=60); Glucose 72 mg/dL (74-106); Potassium 4.3 mmol/L (3.5-5.1); Sodium 129 mmol/L (136-145)
== END 2023-11-11 10:23 | disposition home or self-care (01) ==
LOC: LAB 10:23
PROVIDERS: Family Provider Internal Medicine Interventional Cardiology; PCP Family Medicine; Visit Provider Internal Medicine Interventional Cardiology
DX: I11.9 Hypertensive heart disease without heart failure (principal)
CPT/HCPCS: 36415; 80048

== ENCOUNTER 2024-01-04 16:54 | Observation (INO) | payer MEDICARE, OTHER, SELFPAY ==
[2024-01-04 16:59] VITALS: BP 180/66; PULSE 70; TEMP 36.7; O2SAT 100; BMI 21.6
--- OUTSIDE RECORDS SUMMARY | 2024-01-04 17:04 | XMS_ITS | CCD ---
Author Organization [facility] Care Team Providers Care Operations Intelligence Superintendent Name Role Phone PROVIDER, UNKNOWN Attending Unavailable PROVIDER, UNKNOWN Admitting Unavailable NO FAMILY, PHYSICIAN Primary Care Provider Unava ilable DIANA Harris Attending Provider MD Jonathon Kaur Primary Care Provider MD Kyree Blair Admit Provider [phone] PIPER Flanagan Other Provider Unavailable DO Tee Braun Other Provider [phone] MD Solitario Lucas Other Provider [phone] MD Felipe Cabezas Other Provider MD Gold Patrick Other Provider MD Nikolai Egan Other Provider ZAC York Other Provider MD Jillian Hernandez Other Provider MD Jono Jenkins Other Provider MD Wilmer Guzman Other Provider Desiree CONSTRUCTION PROJECT ENGINEER- Noelle Box Other Provider [phone] MD Miri Hill Other Provider [phone] MD Vandana Torres Attending Provider [phone] Unknown, Pcp Unavailable Unavailable Abu-Christian Albin Unavailable [...] Provider MD Wilmer Guzman Other Provider Desiree [facility] Noelle Box Other Provider [phone] MD Miri Hill Other Provider [phone] MD Vandana Torres Attending Provider DO Kvng Romo Attending Provider MEME Harris-Keira Box Attending Provider Blake Zhao Unavailable NTAASHA, DR JONATHON Shaffer Admitting Unavailable NADEREKeagan, DR JONATHON Shaffer Attending Unavailable NADEREKeagan, DR JONATHON Shaffer Consulting Unavailable NADEREKeagan, DR JONATHON Shaffer Primary Care Unavailable MISC, DR BONILLA Attending Unavailable MISC, DR BONILLA Consulting Unavailable NADPAULINE, DR JONATHON Shaffer Primary Care Unavailable MISC, DR BONILLA Admitting Unavailable ELTAHAWY, DR SERNA Consulting Unavailable NADEREKeagan, DR JONATHON Shaffer Primary Care Unavailable NADEREKeagan, DR JONATHON Shaffer Admitting Unavailable NADEREKeagan, DR JONATHON Shaffer Attending Unavailable NADEREKeagan, DR JONATHON Shaffer Consulting Unavailable RENETTA, DR BUSCH Consulting Unavailable RIVESVILLE, DR BUD Hogan Consulting Unavailable NATASHA, DR JONATHON Shaffer Primary Care Unavailable JAMES JOHNSON Admitting Unavailable JEREL ., JAMES Attending Unavailable JEREL ., JAMES Consulting Unavailable ALANISIRON Consulting Unavailable MISC, DR BONILLA Consulting Unavailable [...] Dr. Jonathon Tan Primary Care Unavai lable ABU-CHRSITIAN, ALBIN Attending Unavailable Naderer, Dr. Jonathon Tan Primary Care Unavai lable Fidone, Dr. Chery Attending Unavailable Fidone, Dr. Chery Referring Unavailable Naderer, Dr. Jonathon Tan Primary Care MD Jonathon Sutton Primary Care Provider MD Blake Zhao Attending Provider [phone] DIANA Harris Attending Provider JONATHON KAUR Attending Unavailable MD Jonathon Kaur Primary Care Provider [phone] DIANA Harris Attending Provider DAPHNE MCGUIRE Attending Unavailable AMANDA, DAPHNE Attending Unavailable JORGE BARRIGA Attending Unavailable DAPHNE MCGUIRE Attending Unavailable MD Blake Zhao Attending Provider Obermeyer Brianda L Admitting Unavailable Obermeyer, Brianda L Attending Unavailable Jonathon Kaur Primary Care Unavailable Obermeyer, Brianda L Admitting Unavailable Obermeyer, Brianda L Attending Unavailable Jonathon Kaur Primary Care Unavailable Blake Zhao Attending Unavailable Jonathon Kaur Primary Care Unavailable Blake Zhao Admitting Unavailable Blake Zhao Attending Unavailable Jonathon Kaur Primary Care Unavailable Blake Zhao Admitting Unavailable Obermeyer Brianda L Admitting Unavailable Obermeyer, Brianda Box Attending Unavailable oJnathon Kaur Primary Care Unavailable Medications Current Medications Medication Drug Class(es) [...] Substitution Allowed amLODIPine 5 mg oral tablet (4 sources) Dihydropyridine Calcium Channel Kristal Start: 05-25-2023 [...] Kim Start: 16-Jan-2022 Generic Substitution Allowed atorvastatin (14 sources) HMG-CoA Reductase Inhibitor Start: 05-25-2023 Atorvastatin [...] DO Active clopidogrel 75 mg oral tablet (14 sources) P2Y12 Platelet Inhibitor Start: 05-25-2023 Clopidogrel [...] Allowed levothyroxine sodium 0.1 mg oral tablet (16 sources) l-Thyroxine Start: 2021 take 100 ug [...] package Quantity: 0 Refills: 0 Ordered: 08-Jan-2022 Gerity, Sammie Status: Discontinued Generic Substitution Allowed 24 hr metoprolol succinate 25 mg extended release oral tablet (14 sources) beta-Adrenergic Kristal Start: 05-25-19 Metoprolol Succinate [...] 16-Jan-2022 Generic Substitution Allowed polyethylene glycol 3350 75196 mg powder for oral solution (1 source) Osmotic Laxative Start: 01-16-2022 polyethylene glycol 3350 oral powder for reconstitution ; 17 gram(s) orally once a day, As Needed - for constipation. May buy over the counter. Quantity: 0 Refills: 0 Ordered: 16-Jan-2022 Stephania Kim Start: 16-Jan-2022 Generic Substitution Allowed predniSONE 5 mg oral tablet (4 sources) Start: 05-25-2023 Prednisone Act bryant MG PO May 25, 2023 12:00am sodium chloride 1000 mg oral tablet (12 sources) Start: 05-25-2023 take 1000 mg by [...] Ordered: 08-Jan-2022 Gerity, Sammie Generic Substitution Allowed Urea (1 source) [...] Start: 01-16-2022 take 1 capsule by mo ut twice daily as needed docusate sodium 100 [...] Active 4 ml golimumab 12.5 mg/ml injection (8 sources) Tumor Necrosis Factor Kristal Start: 01-02-2022 End: 05-25-2023 Golimumab (Simponi Aria) 12.5 mg/mL Solution Discontinued 125 MG IV EVERY 8 WEEKS January 02, 2022 12:00am May 25, 2023 12:47pm administer over 30 mins heparin sodium, porcine 5000 unt/ml injectable solution (20 sources) Unfractionated Heparin, Anti-coagulant Start: 01-06-2022 End: [...] 05-25-2023 Heparin(Porcine) In 0.45% Na cl Discontinued 96914 UNIT IV .Q24H January 06, 2022 12:00am May 25, 2023 12:47pm lisinopril 5 mg oral tablet (19 sources) Angiotensin Converting Enzyme Inhibitor Start: 02-25-2022 [...] Date Documented Date Episodic/Chronic Acute myocardial infarction (14 sources) Myocardial infarction; Translations: [Non-ST elevation (NSTEMI) [...] Chronic Occlusion or stenosis of precerebral arteries (17 sources) Right carotid artery stenosis; Translations: [Occlusion and stenosis of right carotid artery] Onset: 12-06-2023 Chronic Osteoarthritis (1 source) Primary generalized (osteo)arthritis; Translations: [PRIMARY GENERALIZED OSTEOARTHRITIS] Onset: 08-27-2021 Chronic Other aftercare (1 source) Anticoagulant control - finding; Translations: [Long-term (current) use of anticoagulants] 01-09-2022 Episodic Other aftercare (5 sources) Other long term care pharmacist (current) drug therapy; Translations: [OTH IS TECHNICIAN CURRENT DRUG THERAPY] Onset: 03-11-2022 Episodic Other [...] adult] Episodic Rheumatoid arthritis and related disease (16 sources) Rheumatoid arthritis; Translations: [Rheumatoid arthritis, unspecified] Onset: 08-25-2021 01-03-2022 Chronic Screening and history of mental health and substance abuse codes (8 sources) Ex-smoker; Translations: [Personal history of tobacco use] Onset: 01-06-2022 Episodic Comment on above: 1 pack daily- Quit i n ; Thyroid disorders (11 sources) Hypothyroidism; Translations: [Hypothyroidism, unspecified] Onset: 07-02-2022 01-02-2022 Chronic Unclassified (2 sources) 33527; CABG X2/3 PABLO VEIN; CAD 01-08-2022 Comment on above: 29670; CABG X2/3 ESPINOZA A VEIN; CAD Unclassified [...] DISCHARGE HYPON ATREMIA Unclassified (1 source) ALBIN PIERCE NPVRFRL POST CABG HF HTN 01-19-2022 Comment on above: ALBIN PIERCE NPVRF RL POST CABG HF HTN Unclassified (1 source) Non-ST elevation myocardial infarction (NSTEMI) 01-07-2022 Unclassified (1 source) Thrombocytopenia 01-09-2022 Unclassified (1 source) Anticoagulation adequate 01-09-2022 Unclassified (1 source) S/P CABG x 3 01-28-2022 Unclassified (1 source) CONTACT W/AND (SUSP) EXPOS COVID-19; Translations: [CONTACT W/AND (SUSP) EXPOS COVID-19] Onset: 01-06-2022 Unclassified (1 source) Resistant hypertension; Translations: [Resistant hypertension] Onset: 10-18-2023 Unclassified (1 source) Occlusion and stenosis of bilateral carotid arteries; Translations: [Occlusion and stenosis of bilateral carotid arteries] Onset: 05-25-2023 Unclassified (1 source) Rheumatoid arthritis with rheumatoid factor of multiple sites without organ or systems involvement; Translations: [Rheumatoid arthritis with rheumatoid factor of multiple sites without organ or systems involvement] Onset: 12-15-2022 Past or Other Problems Problem Classification Problem [...] source) CAD 01-08-2022 Comment on above: CAD Unclassified (1 source) Resistant hypertension; Translations: [Resistant hypertension] Onset: 10-18-2023 Results Test Name Value Interpretation Reference Range Facility US carotid doppler BIon 09- US carotid doppler [facility] [address] [place] [address] Ultrasound Report Signed Patient: Nenita Finch MR#: [id number] 8 : 1940 Acct:[id number] Age/Sex: 83 / F ADM Date: 12/06/23 Loc: [facility] Room: Type: [facility] Attending Dr: Blake Zhao MD Ordering Provider: Blake Zhao MD Date of Service: 12/06/23 US/US carotid doppler BI: I65.29 - Occlusion and stenosis of unspecified carotid ar... Copies to: Blake Zhao MD CAROTID DUPLEX INDICATION: Follow-up known carotid occlusive disease PROCEDURE: Color-flow duplex scanning is used to interrogate the extracranial carotid arterial system, as well as both vertebral arteries. Both carotid bifurcations show mild to moderate heterogeneous plaque formation. The proximal right internal carotid artery shows a highest peak systolic velocity of 400 cm/s with an end-diastolic velocity of 43.9 cm/s . The mid internal carotid artery measures 152 cm/s peak systolic and 32.9 cm/s end diastolic. The distal segment measures 130 cm/s peak systolic with an end diastolic velocity of 26.1 cm/s . The velocities of the right common carotid artery are 78.9 cm/s peak systolic and 13.7 cm/s end-diastolic proximally and 93.2 cm/s peak systolic and 11.8 cm/s end diastolic distally. The peak systolic velocity ratio of the internal to the common carotid artery is 4.29. The right external carotid artery measures 274 cm/s peak systolic. The right vertebral artery is patent at 83.9 cm/s with antegrade flow. The proximal left internal carotid artery shows a highest peak systolic velocity of 245 cm/s with an end-diastolic velocity of 42.3 cm/s . The mid internal carotid artery measures 185 cm/s peak systolic and 39.8 cm/s end diastolic. The distal segment measures 107 cm/s peak systolic with an end diastolic velocity of 20.8 cm/s . The velocities of the left common carotid artery are 85 cm/s peak systolic and 11.3 cm/s end-diastolic proximally and 133 cm/s peak systolic and 22.3 cm/s end diastolic distally. The peak systolic velocity ratio of the internal to the common carotid artery is 1.84 . The left external carotid artery measures 251 cm/s peak systolic. The left vertebral artery is patent at 52.1 cm/s with antegrade flow. US/US carotid doppler BI IMPRESSION: Greater than 70% stenosis of the right extracranial internal carotid artery. 50-69% stenosis of the left extracranial internal carotid artery. Both vertebral arteries are patent with antegrade flow. Impression dictated by: Blake Zhao M.D.12/06/2023 12:38 PM Dictation Location: [place] [address] Tech: Jannie Nieto Transcribed By: TORIN 12/06/23 1238 Dictated By: Blake Zhao MD 12/06/23 1237 Signed By: 12/06/23 1238 Normal [facility] 11-03-2023 36 Patient returned my call this morning and was made aware of medication changes per Dr. Mcguire. She will have labs 1 week later. RX and lab order sent. [facility] 11-02-2023 36 LM on patient's CITTIO number for her to return my call. [facility] 11-01-2023 36 Patient called to jessica garcia you aware that she's not tolerating the addition of chlorthalidone. She's been nauseous since she started it. She did have labs recently. Did you want to make any changes? Please advise. Thanks. [facility] Office Visiton 10-18-2023 Follow-up visit [id number] Lorraine Finch justino 1940 F Date Provider Department Center 10/18/2023 DAPHNE GILLETTE Family History Problem Relation Age of Onset Valvular heart disease Mother Heart attack Father Heart attack Brother Coronary artery disease Brother Family Status - Relation Status Age at Mother Father Brother Level of Service:16635 MO OFFICE/OUTPATIENT ESTABLISHED MOD MDM 30 MIN [facility] Office Visiton 09-30-2023 Follow-up visit [id number] Lorraine Finch justino 1940 F Date Provider Department Center 09/30/2023 DAPHNE GILLETTE Family History Problem Relation Age of Onset Valvular heart disease Mother Heart attack Father Heart attack Brother Coronary artery disease Brother Family Status - Relation Status Age at Mother Father Brother Level of Service:01799 MO OFFICE/OUTPATIENT ESTABLISHED LOW MDM 20 MIN Normal [facility] Alanine aminotransferase [En zymatic activity/volume] in Serum or PlasmaOrdered By: Rakan eDl Toro on 09-23-2023 ALT [Catalytic activity/Vol] 14 U/L Normal 7-52 [facility] Comment on above: Performed By: #### C BC, CMP, ESR #### [facility] [address] [place] [address] [place] Albumin [Mass/volume] in Ser um or Plasma by Bromocresol green (BCG) dye binding methoOrdered By: Rakan Del Toro on 09-23-2023 Albumin BCG dye [Mass/Vol] 3.8 g/dL 3.5-5.7 [facility] Alkaline phosphatase [Enzyma tic activity/volume] in Serum or PlasmaOrdered By: Rakan Del Toro on 09-23-2023 ALP [Catalytic activity/Vol] 63 U/L Normal 34-104 [facility] Comment on above: Result Comment: PERF ORMED BY: [place] [address] PATHOLOGIST DENTAL PROFESSIONAL RENE BOWSER M.D. Performed By: #### C BC, CMP, ESR #### [address] Aspartate aminotransferase [ Enzymatic activity/volume] in Serum or PlasmaOrdered By: Rakan Del Toro on 09-23-2023 AST [Catalytic activity/Vol] 22 U/L Normal 13-39 [facility] Comment on above: Performed By: #### C BC, CMP, ESR #### [address] Automated basophil %Ordered By: Rakan Del Toro on 09-23-2023 Basophils/100 WBC (Bld) 0.8 % Normal . [facility] Comment on above: Performed By: #### C BC, CMP, ESR #### [place] [address] [place] Automated basophil countOrde red By: Rakan Del Toro on 09-23-2023 Basophils (Bld) [#/Vol] 0.1 10*3/uL Normal 0.0-0.2 [facility] Comment on above: Performed By: #### C BC, CMP, ESR #### [address] Automated blood monocyte cou ntOrdered By: Rakananahi Del Toro on 09-23-2023 Monocytes (Bld) [#/Vol] 0.9 10*3/uL High 0.0-0.8 [facility] Comment on above: Performed By: #### C BC, CMP, ESR #### [address] Automated eosinophil %Ordere d By: Rakan Renetta on 09-23-2023 Eosinophils/100 WBC (Bld) 2.7 % Normal . [facility] Comment on above: Performed By: #### C BC, CMP, ESR #### [address] Automated eosinophil countOr dered By: Rakan Del Toro on 09-23-2023 Eosinophils (Bld) [#/Vol] 0.2 10*3/uL Normal 0.0-0.45 [facility] Comment on above: Performed By: #### C BC, CMP, ESR #### [address] Automated monocyte %Ordered By: Rakan Del Toro on 09-23-2023 Monocytes/100 WBC (Bld) 11.3 % Normal . [facility] Comment on above: Performed By: #### C BC, CMP, ESR #### [address] Automated neutrophil %Ordere d By: Rakan Del Toor on 09-23-2023 Neutrophils/100 WBC (Bld) 67.2 % Normal . [facility] Comment on above: Performed By: #### C BC, CMP, ESR #### [address] Bilirubin.total [Mass/volume ] in Serum or PlasmaOrdered By: Rakan Del Toro on 07-11-2024 Bilirubin [Mass/Vol] 0.4 mg/dL Normal 0.3-1.0 [facility] Comment on above: Performed By: #### C BC, CMP, ESR #### [facility] [address] Calcium [Mass/volume] in Ser um or PlasmaOrdered By: Rakan Renetta on 09-23-2023 Calcium [Mass/Vol] 9.3 mg/dL Normal 8.6-10.3 [facility] Comment on above: Performed By: #### C BC, CMP, ESR #### [address] Carbon dioxide, total [Moles /volume] in Serum or PlasmaOrdered By: Rakan Renetta on 09-23-2023 CO2 [Moles/Vol] 24.9 mmol/L Normal 21.0-31.0 [facility] Comment on above: Performed By: #### C BC, CMP, ESR #### [address] Chloride [Moles/volume] in S sarwat or PlasmaOrdered By: Rakananahi Del Toro on 09-23-2023 Chloride [Moles/Vol] 96 mmol/L Low 98-107 [facility] Comment on above: Performed By: #### C BC, CMP, ESR #### [address] Complete Blood Count Auto Di ffon 09-23-2023 Mean Corpuscular HGB Conc 33.9 g/dL Normal 32.0-35.0 [facility] Comment on above: Performed By: #### C BC, CMP, ESR #### [address] NRBC% 0.1 /100{WBC} Normal 0-0.5 [facility] Comment on above: Performed By: #### C BC, CMP, ESR #### [address] Comprehensive Metabolic Pane radha 09-23-2023 Albumin [Mass/Vol] 3.8 g/dL Normal 3.5-5.7 [facility] Comment on above: Performed By: #### C BC, CMP, ESR #### [address] GFR/1.73 sq M.predicted MDRD (S/P/Bld) [Vol rate/Area] mL/min/{1.73_m2} Normal [facility] Comment on above: Performed By: #### C BC, CMP, ESR #### [address] Creatinine [Mass/volume] in Serum or PlasmaOrdered By: Rakan Del Toro on 09-23-2023 Creatinine [Mass/Vol] 0.84 mg/dL Normal 0.60-1.20 [facility] Comment on above: Performed By: #### C BC, CMP, ESR #### [address] Erythrocyte Sedimentation Ra moose 09-23-2023 ESR (Bld) [Velocity] 50 mm/h High 0-29 [facility] Comment on above: Result Comment: PERF ORMED BY: [place] [address] PATHOLOGIST DENTAL PROFESSIONAL RENE BOWSER M.D. Performed By: #### C BC, CMP, ESR #### [address] Erythrocyte distribution wid th [Ratio] by Automated countOrdered By: Rakan Del Toro on 09-23-2023 Erythrocyte distribution width (RBC) [Ratio] 14.6 % Normal 11.9-15.3 [facility] Comment on above: Performed By: #### C BC, CMP, ESR #### [address] Erythrocyte sedimentation ra te by Photometric methodOrdered By: Rakan Del Toro on 09-23-2023 ESR Photometric method (Bld) [Velocity] 50 mm/hr High 0-29 [facility] Erythrocytes [#/volume] in B lood by Automated countOrdered By: Rakan Del Toro on 09-23-2023 RBC (Bld) [#/Vol] 4.53 10*6/uL Normal 3.60-5.00 [facility] Comment on above: Performed By: #### C ANALILIA ALVES, ESR #### [facility] [address] Glucose [Mass/volume] in Ser um or PlasmaOrdered By: Rakan Del Toro on 09-23-2023 Glucose [Mass/Vol] 106 mg/dL High 70-100 [facility] Comment on above: ADA recommended refe rence rangeRandom Glucose Reference Range is dependent on time and content of last meal. Glucose of more than 200 mg/dL in a nonstressed, ambulatory subject supports the diagnosis of Diabetes Mellitus. Result Comment: [place] om Glucose Reference Range is dependent on time and content of last meal. Glucose of more than 200 mg/dL in a nonstressed, ambulatory subject supports the diagnosis of Diabetes Mellitus. ADA recommended reference range Performed By: #### C ANALILIA ALVES, ESR #### [facility] [address] Hematocrit [Volume Fraction] of Blood by Automated countOrdered By: Rakan Del Toro on 09-23-2023 Hematocrit (Bld) [Volume fraction] 38.8 % Normal 34.0-46.4 [facility] Comment on above: Performed By: #### C ANALILIA ALVES, ESR #### [facility] [address] Hemoglobin [Mass/volume] in BloodOrdered By: Rakan Del Toro on 09-23-2023 Hemoglobin (Bld) [Mass/Vol] 13.2 g/dL Normal 11.8-15.4 [facility] Comment on above: Performed By: #### C ANALILIA ALVES, ESR #### [facility] [address] Leukocytes [#/volume] correc abena for nucleated erythrocytes in Blood by Automated counOrdered By: Rakan Del Toro on 09-23-2023 WBC corrected for nucl RBC Auto (Bld) [#/Vol] 8.2 10*3/uL 3.8-11.6 [facility] Leukocytes [#/volume] in Blo od by Automated countOrdered By: Rakan Coxrow on 09-23-2023 WBC (Bld) [#/Vol] 8.2 10*3/uL Normal 3.8-11.6 [facility] Comment on above: Performed By: #### C BC, CMP, ESR #### [address] Lymphocytes [#/volume] in Bl ood by Automated countOrdered By: Rakan Renetta on 09-23-2023 Lymphocytes (Bld) [#/Vol] 1.5 10*3/uL Normal 1.00-4.8 [facility] Comment on above: Performed By: #### C BC, CMP, ESR #### [address] Lymphocytes/100 leukocytes i n Blood by Automated countOrdered By: Rakan Del Toro on 09-23-2023 Lymphocytes/100 WBC (Bld) 18.0 % Normal . [facility] Comment on above: Performed By: #### C BC, CMP, ESR #### [address] MCH [Entitic mass] by Automa abena countOrdered By: Rakananahi Del Toro on 09-23-2023 MCH (RBC) [Entitic mass] 29.1 pg Normal 24.7-34.3 [facility] Comment on above: Performed By: #### C BC, CMP, ESR #### [address] MCHC Auto (RBC) [Mass/Vol]Or dered By: Rakan Del Toro on 09-23-2023 MCHC (RBC) [Mass/Vol] 33.9 g/dL 32.0-35.0 [facility] MCV [Entitic volume] by Auto mated countOrdered By: Rakan Del Toro on 09-23-2023 MCV (RBC) [Entitic vol] 85.7 fL Normal 80-100 [facility] Comment on above: Performed By: #### C BC, CMP, ESR #### [place] [address] [place] Neutrophils [#/volume] in Bl ood by Automated countOrdered By: Rakananahi Del Toro on 09-23-2023 Neutrophils (Bld) [#/Vol] 5.5 10*3/uL Normal 1.8-7.7 [facility] Comment on above: Performed By: #### C BC, CMP, ESR #### [facility] [address] No Panel InformationOrdered By: Rakan Del Toro on 09-23-2023 Estimated GFR (CKD-EPI) > 60.0 mL/Min [facility] Creatinine Clearance (Chem N/A [facility] Nucleated erythrocytes [Pres ence] in Blood by Automated countOrdered By: Rakan Del Toro on 09-23-2023 Nucleated RBC Auto Ql (Bld) 0.1 /100{WBC} 0-0.5 [facility] Platelet mean volume [Entiti c volume] in Blood by Automated countOrdered By: Rakan Del Toro on 09-23-2023 Platelet mean volume (Bld) [Entitic vol] 9.3 fL Normal 6.3-10.7 [facility] Comment on above: Performed By: #### C BC, CMP, ESR #### [facility] [address] [place] [address] [place] Platelets [#/volume] in Bloo d by Automated countOrdered By: Rakan Del Toro on 09-23-2023 Platelets (Bld) [#/Vol] 239 10*3/uL Normal 150-450 [facility] Comment on above: Performed By: #### C BC, CMP, ESR #### [facility] [address] [place] [address] [place] Potassium [Moles/volume] in Serum or PlasmaOrdered By: Rakan Del Toro on 09-23-2023 Potassium [Moles/Vol] 4.3 mmol/L Normal 3.5-5.1 [facility] Comment on above: Performed By: #### C BC, CMP, ESR #### [place] [address] [place] Protein [Mass/volume] in Ser um or PlasmaOrdered By: Rakan Del Toro on 09-23-2023 Protein [Mass/Vol] 7.3 g/dL Normal 6.4-8.9 [facility] Comment on above: Performed By: #### C ANALILIA ALVES, ESR #### [address] Serum globulin measurement b y calculation (mass/volume)Ordered By: Rakan Del Toro on 09-23-2023 Globulin (S) [Mass/Vol] 3.5 g/dL Normal [facility] Comment on above: Performed By: #### C LONG CMP, ESR #### [address] Serum or plasma albumin/glob ulin mass ratioOrdered By: Rakan Del Toro on 09-23-2023 Albumin/Globulin [Mass ratio] 1.1 {ratio} [facility] Comment on above: Performed By: #### C LONG CMP, ESR #### [address] Serum or plasma anion gap de terminationOrdered By: Rakan Del Toro on 09-23-2023 Anion gap [Moles/Vol] 11.4 mmol/L Normal 6.0-15.0 [facility] Comment on above: Performed By: #### C ANALILIA ALVES, ESR #### [address] Sodium [Moles/volume] in Ser um or PlasmaOrdered By: Rakan Del Toro on 09-23-2023 Sodium [Moles/Vol] 128 mmol/L Low 136-145 [facility] Comment on above: Performed By: #### C LONG CMP, ESR #### [address] Urea nitrogen [Mass/volume] in Serum or PlasmaOrdered By: Rakan Del Toro on 09-23-2023 Urea nitrogen [Mass/Vol] 19 mg/dL Normal 7-25 [facility] Comment on above: Performed By: #### C LONG CMP, ESR #### [address] Office Visiton 07-19-2023 Follow-up visit [id number] Lorraine Finch 1940 F Date Provider Department Center 07/19/2023 271-[id number] MCGUIRE CARD Cristóbal Champion Family History Problem Relation Age of Onset Valvular heart disease Mother Heart attack Father Heart attack Brother Coronary artery disease Brother Family Status - Relation Status Age at Mother Father Brother Level of Service:43342 MO OFFICE/OUTPATIENT ESTABLISHED MOD MDM 30 MIN Normal [facility] Alanine aminotransferase [En zymatic activity/volume] in Serum or PlasmaOrdered By: Brianda Harris on 06-03-2023 ALT [Catalytic activity/Vol] 16 U/L Normal 7-52 [facility] Comment on above: Performed By: #### C MP, CBC, ESR #### [facility] [address] [place] [address] [place] Albumin [Mass/volume] in Ser um or Plasma by Bromocresol green (BCG) dye binding methoOrdered By: Brianda Harris on 06-03-2023 Albumin BCG dye [Mass/Vol] 4.1 g/dL 3.5-5.7 [facility] Alkaline phosphatase [Enzyma tic activity/volume] in Serum or PlasmaOrdered By: Brianda Harris on 06-03-2023 ALP [Catalytic activity/Vol] 69 U/L Normal 34-104 [facility] Comment on above: Result Comment: PERF ORMED BY: [place] [address] PATHOLOGIST DENTAL PROFESSIONAL RENE BOWSER M.D. Performed By: #### C MP, CBC, ESR #### [facility] [address] [place] [address] [place] Aspartate aminotransferase [ Enzymatic activity/volume] in Serum or PlasmaOrdered By: Brianda Harris on 06-03-2023 AST [Catalytic activity/Vol] 23 U/L Normal 13-39 [facility] Comment on above: Performed By: #### C MP, CBC, ESR #### [facility] [address] [place] [address] [place] Automated basophil %Ordered By: Brianda Harris on 06-03-2023 Basophils/100 WBC (Bld) 0.9 % Normal . [facility] Comment on above: Performed By: #### C MP, CBC, ESR #### [address] Automated basophil countOrde red By: Brianda Harris on 06-03-2023 Basophils (Bld) [#/Vol] 0.1 10*3/uL Normal 0.0-0.2 [facility] Comment on above: Performed By: #### C MP, CBC, ESR #### [address] Automated blood monocyte cou ntOrdered By: Brianda Harris on 06-03-2023 Monocytes (Bld) [#/Vol] 0.9 10*3/uL High 0.0-0.8 [facility] Comment on above: Performed By: #### C MP, CBC, ESR #### [address] Automated eosinophil %Ordere d By: Brianda Harris on 06-03-2023 Eosinophils/100 WBC (Bld) 2.4 % Normal . [facility] Comment on above: Performed By: #### C MP, CBC, ESR #### [address] Automated eosinophil countOr dered By: Brianda Harris on 06-03-2023 Eosinophils (Bld) [#/Vol] 0.2 10*3/uL Normal 0.0-0.45 [facility] Comment on above: Performed By: #### C MP, CBC, ESR #### [address] Automated monocyte %Ordered By: Brianda Harris on 06-03-2023 Monocytes/100 WBC (Bld) 11.1 % Normal . [facility] Comment on above: Performed By: #### C MP, CBC, ESR #### [address] Automated neutrophil %Ordere d By: Brianda Harris on 06-03-2023 Neutrophils/100 WBC (Bld) 66.3 % Normal . [facility] Comment on above: Performed By: #### C MP, CBC, ESR #### [facility] [address] Bilirubin.total [Mass/volume ] in Serum or PlasmaOrdered By: Brianda Harris on 06-03-2023 Bilirubin [Mass/Vol] 0.5 mg/dL Normal 0.3-1.0 [facility] Comment on above: Performed By: #### C MP, CBC, ESR #### [facility] [address] Calcium [Mass/volume] in Ser um or PlasmaOrdered By: Brianda Harris on 06-03-2023 Calcium [Mass/Vol] 9.4 mg/dL Normal 8.6-10.3 [facility] Comment on above: Performed By: #### C MP, CBC, ESR #### [address] Carbon dioxide, total [Moles /volume] in Serum or PlasmaOrdered By: Brianda Harris on 06-03-2023 CO2 [Moles/Vol] 25.4 mmol/L Normal 21.0-31.0 [facility] Comment on above: Performed By: #### C MP, CBC, ESR #### [address] Chloride [Moles/volume] in S sarwat or PlasmaOrdered By: Brianda Harris on 06-03-2023 Chloride [Moles/Vol] 102 mmol/L Normal 98-107 [facility] Comment on above: Performed By: #### C MP, CBC, ESR #### [address] Complete Blood Count Auto Di ffon 06-03-2023 Mean Corpuscular HGB Conc 32.9 g/dL Normal 32.0-35.0 [facility] Comment on above: Performed By: #### C MP, CBC, ESR #### [address] NRBC% 0.1 /100{WBC} Normal 0-0.5 [facility] Comment on above: Performed By: #### C MP, CBC, ESR #### [address] Comprehensive Metabolic Pane radha 06-03-2023 Albumin [Mass/Vol] 4.1 g/dL Normal 3.5-5.7 [facility] Comment on above: Performed By: #### C MP, CBC, ESR #### [address] GFR/1.73 sq M.predicted MDRD (S/P/Bld) [Vol rate/Area] mL/min/{1.73_m2} Normal [facility] Comment on above: Performed By: #### C MP, CBC, ESR #### [address] Creatinine [Mass/volume] in Serum or PlasmaOrdered By: Brianda Harris on 06-03-2023 Creatinine [Mass/Vol] 0.89 mg/dL Normal 0.60-1.20 [facility] Comment on above: Performed By: #### C MP, CBC, ESR #### [address] Erythrocyte Sedimentation Ra moose 06-03-2023 ESR (Bld) [Velocity] 42 mm/h High 0-29 [facility] Comment on above: Result Comment: PERF ORMED BY: [place] [address] PATHOLOGIST DENTAL PROFESSIONAL RENE BOWSER M.D. Performed By: #### C MP, CBC, ESR #### [address] Erythrocyte distribution wid th [Ratio] by Automated countOrdered By: Brianda Harris on 06-03-2023 Erythrocyte distribution width (RBC) [Ratio] 14.1 % Normal 11.9-15.3 [facility] Comment on above: Performed By: #### C MP, CBC, ESR #### [address] [place] [address] [place] Erythrocyte sedimentation ra te by Photometric methodOrdered By: Brianda Harris on 06-03-2023 ESR Photometric method (Bld) [Velocity] 42 mm/hr 0-29 [facility] Erythrocytes [#/volume] in B lood by Automated countOrdered By: Brianda Harris on 06-03-2023 RBC (Bld) [#/Vol] 4.80 10*6/uL Normal 3.60-5.00 [facility] Comment on above: Performed By: #### C MP, CBC, ESR #### [facility] [address] Glucose [Mass/volume] in Ser um or PlasmaOrdered By: Brianda Harris on 06-03-2023 Glucose [Mass/Vol] 91 mg/dL Normal 70-100 [facility] Comment on above: ADA recommended refe rence rangeRandom Glucose Reference Range is dependent on time and content of last meal. Glucose of more than 200 mg/dL in a nonstressed, ambulatory subject supports the diagnosis of Diabetes Mellitus. Result Comment: [place] om Glucose Reference Range is dependent on time and content of last meal. Glucose of more than 200 mg/dL in a nonstressed, ambulatory subject supports the diagnosis of Diabetes Mellitus. ADA recommended reference range Performed By: #### C MP, CBC, ESR #### [facility] [address] Hematocrit [Volume Fraction] of Blood by Automated countOrdered By: Brianda Harris on 06-03-2023 Hematocrit (Bld) [Volume fraction] 41.8 % Normal 34.0-46.4 [facility] Comment on above: Performed By: #### C MP, CBC, ESR #### [facility] [address] [place] [address] [place] Hemoglobin [Mass/volume] in BloodOrdered By: Brianda Harris on 06-03-2023 Hemoglobin (Bld) [Mass/Vol] 13.8 g/dL Normal 11.8-15.4 [facility] Comment on above: Performed By: #### C MP, CBC, ESR #### [address] Leukocytes [#/volume] correc abena for nucleated erythrocytes in Blood by Automated counOrdered By: Brianda Harris on 06-03-2023 WBC corrected for nucl RBC Auto (Bld) [#/Vol] 8.3 10*3/uL 3.8-11.6 [facility] Leukocytes [#/volume] in Blo od by Automated countOrdered By: Brianda Harris on 06-03-2023 WBC (Bld) [#/Vol] 8.3 10*3/uL Normal 3.8-11.6 [facility] Comment on above: Performed By: #### C MP, CBC, ESR #### [address] Lymphocytes [#/volume] in Bl ood by Automated countOrdered By: Brianda Harris on 06-03-2023 Lymphocytes (Bld) [#/Vol] 1.6 10*3/uL Normal 1.00-4.8 [facility] Comment on above: Performed By: #### C MP, CBC, ESR #### [facility] [address] [place] [address] Lymphocytes/100 leukocytes i n Blood by Automated countOrdered By: Brianda Harris on 06-03-2023 Lymphocytes/100 WBC (Bld) 19.3 % Normal . [facility] Comment on above: Performed By: #### C MP, CBC, ESR #### [facility] [address] [place] [address] MCH [Entitic mass] by Automa abena countOrdered By: Brianda Harris on 06-03-2023 MCH (RBC) [Entitic mass] 28.7 pg Normal 24.7-34.3 [facility] Comment on above: Performed By: #### C MP, CBC, ESR #### [address] MCHC Auto (RBC) [Mass/Vol]Or dered By: Brianda Harris on 06-03-2023 MCHC (RBC) [Mass/Vol] 32.9 g/dL 32.0-35.0 [facility] MCV [Entitic volume] by Auto mated countOrdered By: Brianda Harris on 06-03-2023 MCV (RBC) [Entitic vol] 87.0 fL Normal 80-100 [facility] Comment on above: Performed By: #### C MP, CBC, ESR #### [facility] [address] [place] [address] Neutrophils [#/volume] in Bl ood by Automated countOrdered By: Brianda Harris on 06-03-2023 Neutrophils (Bld) [#/Vol] 5.5 10*3/uL Normal 1.8-7.7 [facility] Comment on above: Performed By: #### C MP, CBC, ESR #### [address] No Panel InformationOrdered By: Brianda Harris on 06-03-2023 Estimated GFR (CKD-EPI) > 60.0 mL/Min [facility] Creatinine Clearance (Chem N/A [facility] Nucleated erythrocytes [Pres ence] in Blood by Automated countOrdered By: Brianda Harris on 06-03-2023 Nucleated RBC Auto Ql (Bld) 0.1 /100{WBC} 0-0.5 [facility] Platelet mean volume [Entiti c volume] in Blood by Automated countOrdered By: Brianda Harris on 06-03-2023 Platelet mean volume (Bld) [Entitic vol] 9.3 fL Normal 6.3-10.7 [facility] Comment on above: Performed By: #### C MP, CBC, ESR #### [address] Platelets [#/volume] in Bloo d by Automated countOrdered By: Brianda Harris on 06-03-2023 Platelets (Bld) [#/Vol] 251 10*3/uL Normal 150-450 [facility] Comment on above: Performed By: #### C MP, CBC, ESR #### [facility] [address] Potassium [Moles/volume] in Serum or PlasmaOrdered By: Brianda Harris on 06-03-2023 Potassium [Moles/Vol] 3.8 mmol/L Normal 3.5-5.1 [facility] Comment on above: Performed By: #### C MP, CBC, ESR #### [address] Protein [Mass/volume] in Ser um or PlasmaOrdered By: Brianda Harris on 06-03-2023 Protein [Mass/Vol] 7.1 g/dL Normal 6.4-8.9 [facility] Comment on above: Performed By: #### C MP, CBC, ESR #### [address] Serum globulin measurement b y calculation (mass/volume)Ordered By: Brianda Harris on 06-03-2023 Globulin (S) [Mass/Vol] 3.0 g/dL [facility] Comment on above: Performed By: #### C MP, CBC, ESR #### [address] Serum or plasma albumin/glob ulin mass ratioOrdered By: Brianda Harris on 06-03-2023 Albumin/Globulin [Mass ratio] 1.4 {ratio} [facility] Comment on above: Performed By: #### C MP, CBC, ESR #### [address] Serum or plasma anion gap de terminationOrdered By: Brianda Harris on 06-03-2023 Anion gap [Moles/Vol] 11.4 mmol/L Normal 6.0-15.0 [facility] Comment on above: Performed By: #### C MP, CBC, ESR #### [place] [address] [place] Sodium [Moles/volume] in Ser um or PlasmaOrdered By: Brianda Harris on 06-03-2023 Sodium [Moles/Vol] 135 mmol/L Low 136-145 [facility] Comment on above: Performed By: #### C MP, CBC, ESR #### [facility] [address] Urea nitrogen [Mass/volume] in Serum or PlasmaOrdered By: Brianda Harris on 06-03-2023 Urea nitrogen [Mass/Vol] 24 mg/dL Normal 7-25 [facility] Comment on above: Performed By: #### C MP, CBC, ESR #### [facility] [address] [place] [id number] [facility] US carotid doppler BIon 05-13 US carotid doppler BI [facility] [place] [address] [place] [address] Ultrasound Report Signed Patient: Cely Finch MR#: [id number] : 1940 Acct:[id number] Age/Sex: 83 / F ADM Date: 05/25/23 Loc: [facility] Room: Type: [facility] Attending Dr: Blake Zhao MD Ordering Provider: [...] Blake Zhao M.D.05/31/2023 12:47 PM Dictation Location: [place] [address] Tech: Juliana Licona Transcribed By: TORIN 05/31/23 1247 Dictated By: Blake Zhao MD 05/31/23 1243 Signed By: 05/31/23 1247 Normal [facility] Office Visiton 12-21-2022 Follow-up visit [id number] Lorraine Finch 1940 F Date Provider Department Center 12/21/2022 [id number] BARRIGA Family History Problem Relation Age of Onset Valvular heart disease Mother Heart attack Father Heart attack Brother Coronary artery disease Brother Family Status - Relation Status Age at Mother Father Brother Level of Service:93023 MO OFFICE/OUTPATIENT ESTABLISHED MOD MDM 30-39 MIN Normal [facility] Alanine aminotransferase [En zymatic activity/volume] in Serum or PlasmaOrdered By: Brianda Harris on 12-15-2022 ALT [Catalytic activity/Vol] 16 U/L Normal 7-52 [facility] Comment on above: Performed By: #### C MP, ESR, CBC #### [address] Albumin [Mass/volume] in Ser um or Plasma by Bromocresol green (BCG) dye binding methoOrdered By: Brianda Harris on 12-15-2022 Albumin BCG dye [Mass/Vol] 3.8 g/dL 3.5-5.7 [facility] Alkaline phosphatase [Enzyma tic activity/volume] in Serum or PlasmaOrdered By: Brianda Harris on 12-15-2022 ALP [Catalytic activity/Vol] 60 U/L Normal 34-104 [facility] Comment on above: Result Comment: PERF ORMED BY: [place] [address] PATHOLOGIST DENTAL PROFESSIONAL RENE BOWSER M.D. Performed By: #### C MP, ESR, CBC #### [address] Aspartate aminotransferase [ Enzymatic activity/volume] in Serum or PlasmaOrdered By: Brianda Harris on 12-15-2022 AST [Catalytic activity/Vol] 20 U/L Normal 13-39 [facility] Comment on above: Performed By: #### C MP, ESR, CBC #### [address] Automated basophil %Ordered By: Brianda Harris on 12-15-2022 Basophils/100 WBC (Bld) 0.6 % Normal . [facility] Comment on above: Performed By: #### C MP, ESR, CBC #### [address] Automated basophil countOrde red By: Brianda Harris on 12-15-2022 Basophils (Bld) [#/Vol] 0.1 10*3/uL Normal 0.0-0.2 [facility] Comment on above: Performed By: #### C MP, ESR, CBC #### [address] Automated blood monocyte cou ntOrdered By: Brianad Harris on 12-15-2022 Monocytes (Bld) [#/Vol] 1.2 10*3/uL High 0.0-0.8 [facility] Comment on above: Performed By: #### C MP, ESR, CBC #### [address] Automated eosinophil %Ordere d By: Brianda Harris on 12-15-2022 Eosinophils/100 WBC (Bld) 1.5 % Normal . [facility] Comment on above: Performed By: #### C MP, ESR, CBC #### [address] Automated eosinophil countOr dered By: Brianda Harris on 12-15-2022 Eosinophils (Bld) [#/Vol] 0.2 10*3/uL Normal 0.0-0.45 [facility] Comment on above: Performed By: #### C MP, ESR, CBC #### [address] Automated monocyte %Ordered By: Brianda Harris on 12-15-2022 Monocytes/100 WBC (Bld) 10.6 % Normal . [facility] Comment on above: Performed By: #### C MP, ESR, CBC #### [address] Automated neutrophil %Ordere d By: Brianda Harris on 12-15-2022 Neutrophils/100 WBC (Bld) 62.3 % Normal . [facility] Comment on above: Performed By: #### C MP, ESR, CBC #### [address] Bilirubin.total [Mass/volume ] in Serum or PlasmaOrdered By: Brianda Harris on 12-15-2022 Bilirubin [Mass/Vol] 0.3 mg/dL Normal 0.3-1.0 [facility] Comment on above: Performed By: #### C MP, ESR, CBC #### [address] Calcium [Mass/volume] in Ser um or PlasmaOrdered By: Brianda Harris on 12-15-2022 Calcium [Mass/Vol] 9.3 mg/dL Normal 8.6-10.3 [facility] Comment on above: Performed By: #### C MP, ESR, CBC #### [address] Carbon dioxide, total [Moles /volume] in Serum or PlasmaOrdered By: Brianda Harris on 12-15-2022 CO2 [Moles/Vol] 26.6 mmol/L Normal 21.0-31.0 [facility] Comment on above: Performed By: #### C MP, ESR, CBC #### [address] Chloride [Moles/volume] in S sarwat or PlasmaOrdered By: Brianda Harris on 12-15-2022 Chloride [Moles/Vol] 102 mmol/L Normal 98-107 [facility] Comment on above: Performed By: #### C MP, ESR, CBC #### [address] Complete Blood Count Auto Di ffon 12-15-2022 Mean Corpuscular HGB Conc 33.5 g/dL Normal 32.0-35.0 [facility] Comment on above: Performed By: #### C MP, ESR, CBC #### [address] NRBC% 0.1 /100{WBC} Normal 0-0.5 [facility] Comment on above: Performed By: #### C MP, ESR, CBC #### [address] Comprehensive Metabolic Pane radha 12-15-2022 Albumin [Mass/Vol] 3.8 g/dL Normal 3.5-5.7 [facility] Comment on above: Performed By: #### C MP, ESR, CBC #### [address] GFR/1.73 sq M.predicted MDRD (S/P/Bld) [Vol rate/Area] mL/min/{1.73_m2} Normal [facility] Comment on above: Performed By: #### C MP, ESR, CBC #### [address] Creatinine [Mass/volume] in Serum or PlasmaOrdered By: Brianda Harris on 12-15-2022 Creatinine [Mass/Vol] 0.87 mg/dL Normal 0.60-1.20 [facility] Comment on above: Performed By: #### C MP, ESR, CBC #### [address] Erythrocyte Sedimentation Ra moose 12-15-2022 ESR (Bld) [Velocity] 44 mm/h High 0-29 [facility] Comment on above: Result Comment: PERF ORMED BY: [place] [address] PATHOLOGIST DENTAL PROFESSIONAL RENE BOWSER M.D. Performed By: #### C MP, CBC, ESR #### [address] Erythrocyte distribution wid th [Ratio] by Automated countOrdered By: Brianda Harris on 12-15-2022 Erythrocyte distribution width (RBC) [Ratio] 14.7 % Normal 11.9-15.3 [facility] Comment on above: Performed By: #### C MP, ESR, CBC #### [address] Erythrocyte sedimentation ra te by Photometric methodOrdered By: Brianda Harris on 12-15-2022 ESR Photometric method (Bld) [Velocity] 44 mm/hr 0-29 [facility] Erythrocytes [#/volume] in B lood by Automated countOrdered By: Brianda Harris on 12-15-2022 RBC (Bld) [#/Vol] 5.01 10*6/uL High 3.60-5.00 [facility] Comment on above: Performed By: #### C MP, ESR, CBC #### [facility] [address] [place] [address] [place] Glucose [Mass/volume] in Ser um or PlasmaOrdered By: Brianda Harris on 12-15-2022 Glucose [Mass/Vol] 69 mg/dL Low 70-100 [facility] Comment on above: ADA recommended refe rence rangeRandom Glucose Reference Range is dependent on time and content of last meal. Glucose of more than 200 mg/dL in a nonstressed, ambulatory subject supports the diagnosis of Diabetes Mellitus. Result Comment: [place] Glucose Reference Range is dependent on time and content of last meal. Glucose of more than 200 mg/dL in a nonstressed, ambulatory subject supports the diagnosis of Diabetes Mellitus. ADA recommended reference range Performed By: #### C MP, ESR, CBC #### [facility] [address] Hematocrit [Volume Fraction] of Blood by Automated countOrdered By: Brianda Harris on 12-15-2022 Hematocrit (Bld) [Volume fraction] 43.3 % Normal 34.0-46.4 [facility] Comment on above: Performed By: #### C MP, ESR, CBC #### [facility] [address] Hemoglobin [Mass/volume] in BloodOrdered By: Brianda Harris on 12-15-2022 Hemoglobin (Bld) [Mass/Vol] 14.5 g/dL Normal 11.8-15.4 [facility] Comment on above: Performed By: #### C MP, ESR, CBC #### [facility] [address] Leukocytes [#/volume] correc abena for nucleated erythrocytes in Blood by Automated counOrdered By: Brianda Harris on 12-15-2022 WBC corrected for nucl RBC Auto (Bld) [#/Vol] 11.5 10*3/uL 3.8-11.6 [facility] Leukocytes [#/volume] in Blo od by Automated countOrdered By: Brianda Harris on 12-15-2022 WBC (Bld) [#/Vol] 11.5 10*3/uL Normal 3.8-11.6 [facility] Comment on above: Performed By: #### C MP, ESR, CBC #### [facility] [address] Lymphocytes [#/volume] in Bl ood by Automated countOrdered By: Brianda Harris on 12-15-2022 Lymphocytes (Bld) [#/Vol] 2.9 10*3/uL Normal 1.00-4.8 [facility] Comment on above: Performed By: #### C MP, ESR, CBC #### [facility] [address] Lymphocytes/100 leukocytes i n Blood by Automated countOrdered By: Brianda Harris on 12-15-2022 Lymphocytes/100 WBC (Bld) 25.0 % Normal . [facility] Comment on above: Performed By: #### C MP, ESR, CBC #### [address] MCH [Entitic mass] by Automa abena countOrdered By: Brianda Harris on 12-15-2022 MCH (RBC) [Entitic mass] 29.0 pg Normal 24.7-34.3 [facility] Comment on above: Performed By: #### C MP, ESR, CBC #### [address] MCHC Auto (RBC) [Mass/Vol]Or dered By: Brianda Harris on 12-15-2022 MCHC (RBC) [Mass/Vol] 33.5 g/dL 32.0-35.0 [facility] MCV [Entitic volume] by Auto mated countOrdered By: Brianda Harris on 12-15-2022 MCV (RBC) [Entitic vol] 86.4 fL Normal 80-100 [facility] Comment on above: Performed By: #### C MP, ESR, CBC #### [place] [address] [place] Neutrophils [#/volume] in Bl ood by Automated countOrdered By: Brianda Harris on 12-15-2022 Neutrophils (Bld) [#/Vol] 7.1 10*3/uL Normal 1.8-7.7 [facility] Comment on above: Performed By: #### C MP, ESR, CBC #### [address] No Panel InformationOrdered By: Brianda Harris on 12-15-2022 Estimated GFR (CKD-EPI) > 60.0 mL/Min [facility] Creatinine Clearance (Chem N/A [facility] Nucleated erythrocytes [Pres ence] in Blood by Automated countOrdered By: Brianda Harris on 12-15-2022 Nucleated RBC Auto Ql (Bld) 0.1 /100{WBC} 0-0.5 [facility] Platelet mean volume [Entiti c volume] in Blood by Automated countOrdered By: Brianda Harris on 12-15-2022 Platelet mean volume (Bld) [Entitic vol] 9.2 fL Normal 6.3-10.7 [facility] Comment on above: Performed By: #### C MP, ESR, CBC #### [place] [address] [place] Platelets [#/volume] in Bloo d by Automated countOrdered By: Brianda Harris on 12-15-2022 Platelets (Bld) [#/Vol] 305 10*3/uL Normal 150-450 [facility] Comment on above: Performed By: #### C MP, ESR, CBC #### [place] [address] [place] Potassium [Moles/volume] in Serum or PlasmaOrdered By: Brianda Harris on 12-15-2022 Potassium [Moles/Vol] 3.8 mmol/L Normal 3.5-5.1 [facility] Comment on above: Performed By: #### C MP, ESR, CBC #### [place] [address] [place] Protein [Mass/volume] in Ser um or PlasmaOrdered By: Brianda Harris on 12-15-2022 Protein [Mass/Vol] 6.8 g/dL Normal 6.4-8.9 [facility] Comment on above: Performed By: #### C MP, ESR, CBC #### [address] Serum globulin measurement b y calculation (mass/volume)Ordered By: Brianda Harris on 12-15-2022 Globulin (S) [Mass/Vol] 3.0 g/dL Normal [facility] Comment on above: Performed By: #### C MP, ESR, CBC #### [address] Serum or plasma albumin/glob ulin mass ratioOrdered By: Brianda Harris on 12-15-2022 Albumin/Globulin [Mass ratio] 1.3 {ratio} [facility] Comment on above: Performed By: #### C MP, ESR, CBC #### [address] Serum or plasma anion gap de terminationOrdered By: Brianda Harris on 12-15-2022 Anion gap [Moles/Vol] 12.2 mmol/L Normal 6.0-15.0 [facility] Comment on above: Performed By: #### C MP, ESR, CBC #### [address] Sodium [Moles/volume] in Ser um or PlasmaOrdered By: Brianda Harris on 12-15-2022 Sodium [Moles/Vol] 137 mmol/L Normal 136-145 [facility] Comment on above: Performed By: #### C MP, ESR, CBC #### [address] Urea nitrogen [Mass/volume] in Serum or PlasmaOrdered By: Brianda Harris on 12-15-2022 Urea nitrogen [Mass/Vol] 27 mg/dL High 7-25 [facility] Comment on above: Performed By: #### C MP, ESR, CBC #### [address] [place] [address] [facility] CBC AUTO DIFFon 06-26-2022 BASO # 0.1 103/ul Normal 0.0-0.1 [facility] Comment on above: Performed By: #### C MADM, BNP, CMP #### [facility] [place] [facility] [address] [place] [address] Dr. Marco Greer Basophils/100 WBC (Bld) 0.6 % Normal 0.2-2.0 [facility] [place] Comment on above: Performed By: #### C MADM, BNP, CMP #### [facility] [place] [facility] [address] [place] [address] Dr. Marco Greer EO # 0.2 103/ul Normal 0.0-0.7 [facility] Comment on above: Performed By: #### C MADM, BNP, CMP #### [facility] [place] [facility] [address] [place] [address] Dr. Marco Greer Eosinophils/100 WBC (Bld) 2.1 % Normal 0.9-7.0 [facility] Comment on above: Performed By: #### C MADM, BNP, CMP #### [facility] [place] [facility] [address] [place] [address] Dr. Marco Greer Erythrocyte distribution width (RBC) [Ratio] 17.3 % Critically high 11.0-15.0 [facility] Comment on above: Performed By: #### C MADM, BNP, CMP #### [facility] [place] [facility] [address] [place] [address] Dr. Marco Greer Hematocrit (Bld) [Volume fraction] 40.2 % Normal 36.0-48.0 [facility] Comment on above: Performed By: #### C MADM, BNP, CMP #### [facility] [place] [facility] [address] [place] [address] Dr. Marco Greer Hemoglobin (Bld) [Mass/Vol] 13.0 g/dL Normal 12.0-16.0 [facility] Comment on above: Performed By: #### C MADM, BNP, CMP #### [facility] [place] [facility] [address] [place] [address] Dr. Marco Greer IG # 0.06 10e3/ul Critically high 0.00-0.03 [facility] Comment on above: Performed By: #### C MADM, BNP, CMP #### [facility] [place] [facility] [address] [place] [address] Dr. Marco Greer IG % 0.6 % Critically high 0.0-0.5 [facility] Comment on above: Performed By: #### C MADM, BNP, CMP #### [facility] [place] [facility] [address] [place] [address] Dr. Marco Greer LYMPH # 2.1 103/ul Normal 1.2-3.8 [facility] [place] Comment on above: Performed By: #### C MADM, BNP, CMP #### [facility] [place] [facility] [address] [place] [address] Dr. Marco Greer Lymphocytes/100 WBC (Bld) 19.6 % Critically low 20.5-60.0 [facility] Comment on above: Performed By: #### C MADM, BNP, CMP #### [facility] [place] [facility] [address] [place] [address] Dr. Marco Greer MANUAL DIFF REQ NO Normal [facility] [place] Comment on above: Performed By: #### C MADM, BNP, CMP #### [facility] [place] [facility] [address] [place] [address] Dr. Marco Greer MCH (RBC) [Entitic mass] 27.3 pg Normal 26.7-34.0 [facility] Comment on above: Performed By: #### C MADM, BNP, CMP #### [facility] [place] [facility] [address] [place] [address] Dr. Marco Greer MCHC (RBC) [Mass/Vol] 32.3 g/dL Normal 29.9-35.2 [facility] [place] Comment on above: Performed By: #### C MADM, BNP, CMP #### [facility] [place] [facility] [address] [place] [address] Dr. Marco Greer MCV (RBC) [Entitic vol] 84.5 fL Normal 81.0-99.0 [facility] Comment on above: Performed By: #### C MADM, BNP, CMP #### [facility] [place] [facility] [address] [address] [address] Marco Greer MONO # 0.9 103/ul Critically high 0.3-0.8 [facility] [place] Comment on above: Performed By: #### C MADM, BNP, CMP #### [facility] [place] [facility] [address] [address] [address] Marco Greer Monocytes/100 WBC (Bld) 8.6 % Normal 1.7-12.0 [facility] [place] Comment on above: Performed By: #### C MADM, BNP, CMP #### [facility] [place] [facility] [address] [place] [address] Dr. Marco Greer NEUT # 7.4 103/ul Critically high 1.4-6.5 [facility] Comment on above: Performed By: #### C MADM, BNP, CMP #### [facility] [place] [facility] [address] [place] [address] Dr. Marco Greer Neutrophils/100 WBC (Bld) 68.5 % Normal 43.0-75.0 [facility] [place] Comment on above: Performed By: #### C MADM, BNP, CMP #### [facility] [place] [facility] [address] [place] [address] Dr. Marco Greer Platelet mean volume (Bld) [Entitic vol] 9.6 fL Normal 9.5-13.5 [facility] Comment on above: Performed By: #### C MADM, BNP, CMP #### [facility] [place] [facility] [address] [place] [address] Dr. Marco Greer PLT 283 103/ul Normal 150-450 [facility] [place] Comment on above: Performed By: #### C MADM, BNP, CMP #### [facility] [place] [facility] [address] [place] [address] Dr. Marco Greer RBC 4.76 106/ul Normal 4.20-5.40 [facility] [place] Comment on above: Performed By: #### C MADM, BNP, CMP #### [facility] [place] [facility] [address] [place] [address] Dr. Marco Greer WBC 10.7 103/ul Normal 4.0-11.0 [facility] [place] Comment on above: Performed By: #### C MADM, BNP, CMP #### [facility] [place] [facility] [address] [address] [address] Marco Greer FREE T3on 06-26-2022 FREE T3 2.47 pg/mlL Normal 2.18-3.98 [facility] Comment on above: Performed By: #### C MADM, BNP, CMP #### [facility] [place] [facility] [address] [address] [address] Marco Greer FREE T4on 06-26-2022 Free T4 [Mass/Vol] 1.39 ng/dL Normal 0.76-1.46 [facility] Comment on above: Performed By: #### C MP #### [facility] [place] [facility] [address] [place] [address] Dr. Marco Greer LIPID PROFILEon 06-26-2022 CHOL-HDL RATIO NORM SEE BELOW Normal [facility] Comment on above: Result Comment: 3.3 - 4.4 LOW RISK 4.4 - 7.1 AVERAGE RISK 7.1 - 11.0 MODERATE RISK >11.0 HIGH RISK Performed By: #### C MADM, BNP, CMP #### [facility] [place] [facility] [address] [address] [address] Marco Greer Cholesterol [Mass/Vol] 234 mg/dL Critically high <=200 [facility] Comment on above: Performed By: #### C MADM, BNP, CMP #### [facility] [place] [facility] [address] [address] [address] Marco Greer Cholesterol in HDL [Mass/Vol] 63 mg/dL Critically high 40-60 [facility] [place] Comment on above: Performed By: #### C MADM, BNP, CMP #### [facility] [place] [facility] [address] [address] [address] Marco Greer Cholesterol in LDL [Mass/Vol] 139.2 mg/dL Normal [facility] [place] Comment on above: Performed By: #### C MADM, BNP, CMP #### [facility] [place] [facility] [address] [address] [address] Marco Greer Cholesterol.total/Chol esterol in HDL [Mass ratio] 3.7 {ratio} Normal [facility] Comment on above: Performed By: #### C MADM, BNP, CMP #### [facility] [place] [facility] [address] [address] [address] Marco Greer HDL NORMAL > or = 60 mg/dl - LO W CARDIOVASCULAR RISK <40 mg/dl - HIGH CARDIOVASCULAR RISK Normal [facility] Comment on above: Performed By: #### C MADM, BNP, CMP #### [facility] [place] [facility] [address] [address] [address] Marco Greer LDL CALC NORMAL SEE BELOW Normal [facility] Comment on above: Result Comment: <100 mg/dl OPTIMAL 100 - 129 mg/dl NEAR OR ABOVE OPTIMAL 130 - 159 mg/dl BORDERLINE HIGH 160 - 189 mg/dl HIGH >190 mg/dl VERY HIGH Performed By: #### C MADM, BNP, CMP #### [facility] [place] [facility] [address] [address] [address] Marco Greer Triglyceride [Mass/Vol] 159 mg/dL Critically high <=150 [facility] Comment on above: Performed By: #### C MADM, BNP, CMP #### [facility] [place] [facility] [address] [address] [address] Marco Greer VLDL CALC 31.8 mg/dL Normal [facility] Comment on above: Performed By: #### C MADM, BNP, CMP #### [facility] [place] [facility] [address] [place] [address] Dr. Marco Greer LIVER PROFILEon 06-26-2022 Albumin [Mass/Vol] 3.1 g/dL Critically low 3.4-5.0 [facility] Comment on above: Performed By: #### C MADM, BNP, CMP #### [facility] [place] [facility] [address] [address] [address] Marco Greer Albumin/Globulin [Mass ratio] 0.7 {ratio} Normal [facility] Comment on above: Performed By: #### C MADM, BNP, CMP #### [facility] [place] [facility] [address] [address] [address] Marco Greer ALP [Catalytic activity/Vol] 75 U/L Normal 46-116 [facility] Comment on above: Performed By: #### C MADM, BNP, CMP #### [facility] [place] [facility] [address] [place] [address] Dr. Marco Greer ALT [Catalytic activity/Vol] 28 U/L Normal 14-59 [facility] Comment on above: Performed By: #### C MADM, BNP, CMP #### [facility] [place] [facility] [address] [place] [address] Dr. Marco Greer AST [Catalytic activity/Vol] 22 U/L Normal 15-37 [facility] Comment on above: Performed By: #### C MADM, BNP, CMP #### [facility] [place] [facility] [address] [place] [address] Dr. Marco Greer BILI, CONJUGATED 0.1 mg/dL Normal 0.0-0.2 [facility] Comment on above: Performed By: #### C MADM, BNP, CMP #### [facility] [place] [facility] [address] [place] [address] Dr. Marco Greer Bilirubin [Mass/Vol] 0.3 mg/dL Normal 0.2-1.0 [facility] Comment on above: Performed By: #### C MADM, BNP, CMP #### [facility] [place] [facility] [address] [place] [address] Dr. Marco Greer Globulin (S) [Mass/Vol] 4.3 g/dL Normal [facility] Comment on above: Performed By: #### C MADM, BNP, CMP #### [facility] [place] [facility] [address] [place] [address] Dr. Marco Greer Protein [Mass/Vol] 7.4 g/dL Normal 6.4-8.2 [facility] Comment on above: Performed By: #### C MADM, BNP, CMP #### [facility] [place] [facility] [address] [place] [address] Dr. Marco Greer PROF CHEM 8 (BAS METB)on Anion gap [Moles/Vol] 14.3 mmol/L Normal [facility] Comment on above: Performed By: #### F T3, TSH, BMP, LIVER, LIPID #### [facility] [place] [facility] [address] [address] [address] Marco Greer Calcium [Mass/Vol] 9.2 mg/dL Normal 8.5-10.1 [facility] [place] Comment on above: Performed By: #### F T3, TSH, BMP, LIVER, LIPID #### [facility] [place] [facility] [address] [address] [address] Marco Greer Chloride [Moles/Vol] 100 mmol/L Normal 98-107 [facility] [place] Comment on above: Performed By: #### F T3, TSH, BMP, LIVER, LIPID #### [facility] [place] [facility] [address] [address] [address] Marco Greer CO2 [Moles/Vol] 27.2 mmol/L Normal 21.0-32.0 [facility] Comment on above: Performed By: #### F T3, TSH, BMP, LIVER, LIPID #### [facility] [place] [facility] [address] [address] [address] Marco Greer Creatinine [Mass/Vol] 0.94 mg/dL Normal 0.55-1.02 [facility] Comment on above: Performed By: #### F T3, TSH, BMP, LIVER, LIPID #### [facility] [place] [facility] [address] [address] [address] Marco Greer EGFR-AF LAO >60 Normal >=60 [facility] [place] Comment on above: Performed By: #### F T3, TSH, BMP, LIVER, LIPID #### [facility] [place] [facility] [address] [address] [address] Marco Greer EGFR-NON AF LAO 57 mL/min/1.73m2 Critically low >=60 [facility] [place] Comment on above: Performed By: #### F T3, TSH, BMP, LIVER, LIPID #### [facility] [place] [facility] [address] [address] [address] Marco Greer Glucose [Mass/Vol] 84 mg/dL Normal 74-106 [facility] Comment on above: Performed By: #### F T3, TSH, BMP, LIVER, LIPID #### [facility] [place] [facility] [address] [address] [address] Marco Greer Potassium [Moles/Vol] 4.5 mmol/L Normal 3.5-5.1 [facility] Comment on above: Performed By: #### F T3, TSH, BMP, LIVER, LIPID #### [facility] [place] [facility] [address] [address] [address] Marco Greer Sodium [Moles/Vol] 137 mmol/L Normal 136-145 [facility] Comment on above: Performed By: #### F T3, TSH, BMP, LIVER, LIPID #### [facility] [place] [facility] [address] [address] [address] Marco Greer Urea nitrogen [Mass/Vol] 21.0 mg/dL Critically high 7.0-18.0 [facility] Comment on above: Performed By: #### F T3, TSH, BMP, LIVER, LIPID #### [facility] [place] [facility] [address] [place] [address] Dr. Marco Greer Urea nitrogen/Creatinine [Mass ratio] 22.3 mg/mg Normal [facility] Comment on above: Performed By: #### F T3, TSH, BMP, LIVER, LIPID #### [facility] [place] [facility] [address] [place] [address] Dr. Marco Gre[facility] mm/hr Critically high <=30 [facility] Comment on above: Performed By: #### C MP #### [facility] [place] [facility] [address] [place] [address] Dr. Marco Greer TSHon 06-26-2022 TSH 0.286 uIU/mL Critically low 0.358-3.74 0 [facility] Comment on above: Performed By: #### C MADM, BNP, CMP #### [facility] [place] [facility] [address] [place] [address] Dr. Marco Greer PROF CHEM 8 (BAS METB)on Anion gap [Moles/Vol] 14.2 mmol/L Normal [facility] Comment on above: Performed By: #### C MADM, BNP, CMP #### [facility] [place] [facility] [address] [place] [address] Dr. Marco Greer Calcium [Mass/Vol] 9.0 mg/dL Normal 8.5-10.1 [facility] Comment on above: Performed By: #### C MADM, BNP, CMP #### [facility] [place] [facility] [address] [place] [address] Dr. Marco Greer Chloride [Moles/Vol] 102 mmol/L Normal 98-107 [facility] Comment on above: Performed By: #### C MADM, BNP, CMP #### [facility] [place] [facility] [address] [place] [address] Dr. Marco Greer CO2 [Moles/Vol] 27.3 mmol/L Normal 21.0-32.0 [facility] [place] Comment on above: Performed By: #### C MADM, BNP, CMP #### [facility] [place] [facility] [address] [place] [address] Dr. Marco Greer Creatinine [Mass/Vol] 1.18 mg/dL Critically high 0.55-1.02 [facility] Comment on above: Performed By: #### C MADM, BNP, CMP #### [facility] [place] [facility] [address] [place] [address] Dr. Marco Greer EGFR-AF LAO 53 mL/min/1.73m2 Critically low >=60 [facility] [place] Comment on above: Performed By: #### C MADM, BNP, CMP #### [facility] [place] [facility] [address] [place] [address] Dr. Marco Greer EGFR-NON AF LAO 44 mL/min/1.73m2 Critically low >=60 [facility] Comment on above: Performed By: #### C MADM, BNP, CMP #### [facility] [place] [facility] [address] [place] [address] Dr. Marco Greer Glucose [Mass/Vol] 115 mg/dL Critically high 74-106 T [facility] Comment on above: Performed By: #### C MADM, BNP, CMP #### [facility] [place] [facility] [address] [place] [address] Dr. Marco Greer Potassium [Moles/Vol] 3.5 mmol/L Normal 3.5-5.1 [facility] [place] Comment on above: Performed By: #### C MADM, BNP, CMP #### [facility] [place] [facility] [address] [place], [place] [address] Dr. Marco Greer Sodium [Moles/Vol] 140 mmol/L Normal 136-145 [facility] Comment on above: Performed By: #### C MADM, BNP, CMP #### [facility] [place] [facility] [address] [place], [place] [address] Dr. Marco Greer Urea nitrogen [Mass/Vol] 31.0 mg/dL Critically high 7.0-18.0 [facility] Comment on above: Performed By: #### C MADM, BNP, CMP #### [facility] [place] [facility] [address] [place], [place] [address] Dr. Macro Greer Urea nitrogen/Creatinine [Mass ratio] 26.3 mg/mg Normal [facility] Comment on above: Performed By: #### C MADM, BNP, CMP #### [facility] [place] [facility] [address] [place], [place] [address] Dr. Marco Greer Cardiovasc Arrhythmia Result son 04-01-2022 Cardiovas Arrhythmia Results Reason For Visit Event Monitor: Costa is only wearing monitor for 5 days CELY is here for the application of a 30 day event monitor in office., Diagnosis: lightheaded and PVC Ordering Physician: Dr. Miri Hill MD Enrollment sent to: [employer] Monitor number [id number] applied. Procedure Date I received for dictation [...] (I49.3) Future Appointments Date/TimeProviderSpecialty Site 06/19/2022 03:00 Miri Gray MDCardiology703 [facility] [address] 250 DO Signatures Electronically signed by : Radha Copeland MD; Apr 13 2022 9:10AM EST (Author) Normal [facility] Office Visit (Cardiology)on 03-27-2022 Follow-up visit Diagnoses/Problems [...] days; Status:Active - Perform Order,Retrospective Authorization; Requested for:[id number]; SocHx: Former smoker Tobacco Use Screening; Status:Complete; Done: 27Mar2022 Patient Instructions Please bring all medicines, vitamins, [...] bring to next appt. Chief Complaint CELY FINCH is being seen for a medication change. [...] Recorded: 27Mar2022 11:52AM Heart Rate60, L Radial [id number], LUE, Sitting [id number], LUE, Sitting Height5 ft 4 in Yeypsq489 lb BMI Qxlocifxqn65.43 kg/m2 BSA Calculated1.57 Tobacco Useb) No PHQ-2 [...] office re (more content not included)... Normal [facility] Tobacco Screening.on 023 Adult depression screening assessment No [facility]-Cardiolo gy-[place] 250 DO Work Phone: Fall risk assessment a) No falls within the last year [facility]-[place] 250 DO Work Phone: Tobacco use status CPHS b) No [facility]iol[facility]-[place] 250 DO Work Phone: CBC AUTO DIFFon 03-11-2022 BASO # 0.1 103/ul Normal 0.0-0.1 [facility] [place] Comment on above: Performed By: #### C MADM, BNP, CMP #### [facility] [place] [facility] [address] [place] [address] Dr. Marco Greer Basophils/100 WBC (Bld) 0.9 % Normal 0.2-2.0 [facility] [place] Comment on above: Performed By: #### C MADM, BNP, CMP #### [facility] [place] [facility] [address] [address] [address] Marco Greer EO # 0.9 103/ul Critically high 0.0-0.7 [facility] Comment on above: Performed By: #### C MADM, BNP, CMP #### [facility] [place] [facility] [address] [place] [address] Dr. Marco Greer Eosinophils/100 WBC (Bld) 9.3 % Critically high 0.9-7.0 [facility] [place] Comment on above: Performed By: #### C MADM, BNP, CMP #### [facility] [place] [facility] [address] [place] [address] Dr. Marco Greer Erythrocyte distribution width (RBC) [Ratio] 15.5 % Critically high 11.0-15.0 [facility] [place] Comment on above: Performed By: #### C MADM, BNP, CMP #### [facility] [place] [facility] [address] [place] [address] Dr. Marco Greer Hematocrit (Bld) [Volume fraction] 37.4 % Normal 36.0-48.0 [facility] Comment on above: Performed By: #### C MADM, BNP, CMP #### [facility] [place] [facility] [address] [place] [address] Dr. Marco Greer Hemoglobin (Bld) [Mass/Vol] 11.9 g/dL Critically low 12.0-16.0 [facility] Comment on above: Performed By: #### C MADM, BNP, CMP #### [facility] [place] [facility] [address] [place] [address] Dr. Marco Greer IG # 0.03 10e3/ul Normal 0.00-0.03 [facility] Comment on above: Performed By: #### C MADM, BNP, CMP #### [facility] [place] [facility] [address] [place] [address] Dr. Marco Greer IG % 0.3 % Normal 0.0-0.5 [facility] [place] Comment on above: Performed By: #### C MADM, BNP, CMP #### [facility] [place] [facility] [address] [place] [address] Dr. Marco Greer LYMPH # 2.0 103/ul Normal 1.2-3.8 [facility] [place] Comment on above: Performed By: #### C MADM, BNP, CMP #### [facility] [place] [facility] [address] [place] [address] Dr. Marco Greer Lymphocytes/100 WBC (Bld) 20.9 % Normal 20.5-60.0 [facility] [place] Comment on above: Performed By: #### C MADM, BNP, CMP #### [facility] [place] [facility] [address] [place] [address] Dr. Marco Greer MANUAL DIFF REQ NO Normal [facility] [place] Comment on above: Performed By: #### C MADM, BNP, CMP #### [facility] [place] [facility] [address] [place] [address] Dr. Marco Greer MCH (RBC) [Entitic mass] 27.2 pg Normal 26.7-34.0 [facility] [place] Comment on above: Performed By: #### C MADM, BNP, CMP #### [facility] [place] [facility] [address] [place] [address] Dr. Marco Greer MCHC (RBC) [Mass/Vol] 31.8 g/dL Normal 29.9-35.2 [facility] [place] Comment on above: Performed By: #### C MADM, BNP, CMP #### [facility] [place] [facility] [address] [place] [address] Dr. Marco Greer MCV (RBC) [Entitic vol] 85.6 fL Normal 81.0-99.0 [facility] [place] Comment on above: Performed By: #### C MADM, BNP, CMP #### [facility] [place] [facility] [address] [place] [address] Dr. Marco Greer MONO # 0.9 103/ul Critically high 0.3-0.8 [facility] [place] Comment on above: Performed By: #### C MADM, BNP, CMP #### [facility] [place] [facility] [address] [place] [address] Dr. Marco Greer Monocytes/100 WBC (Bld) 9.1 % Normal 1.7-12.0 [facility] [place] Comment on above: Performed By: #### C MADM, BNP, CMP #### [facility] [place] [facility] [address] [place] [address] Dr. Marco Greer NEUT # 5.6 103/ul Normal 1.4-6.5 [facility] [place] Comment on above: Performed By: #### C MADM, BNP, CMP #### [facility] [place] [facility] [address] [place] [address] Dr. Marco Greer Neutrophils/100 WBC (Bld) 59.5 % Normal 43.0-75.0 [facility] [place] Comment on above: Performed By: #### C MADM, BNP, CMP #### [facility] [place] [facility] [address] [place] [address] Dr. Marco Greer Platelet mean volume (Bld) [Entitic vol] 9.9 fL Normal 9.5-13.5 [facility] [place] Comment on above: Performed By: #### C MADM, BNP, CMP #### [facility] [place] [facility] [address] [place] [address] Dr. Marco Greer PLT 343 103/ul Normal 150-450 [facility] [place] Comment on above: Performed By: #### C MADM, BNP, CMP #### [facility] [place] [facility] [address] [place] [address] Dr. Marco Greer RBC 4.37 106/ul Normal 4.20-5.40 [facility] [place] Comment on above: Performed By: #### C MADM, BNP, CMP #### [facility] [place] [facility] [address] [place] [address] Dr. Marco Greer WBC 9.4 103/ul Normal 4.0-11.0 [facility] [place] Comment on above: Performed By: #### C MADM, BNP, CMP #### [facility] [place] [facility] [address] [place] [address] Dr. Marco Greer CRPon 03-11-2022 CRP [Mass/Vol] mg/L Normal <=1.0 [facility] Comment on above: Performed By: #### C MP #### [facility] [place] [facility] [address] [place] [address] Dr. Marco Greer FREE T3on 03-11-2022 FREE T3 2.74 pg/mlL Normal 2.18-3.98 [facility] Comment on above: Performed By: #### C MP #### [facility] [address] [place] [address] Dr. Marco Greer FREE T4on 03-11-2022 Free T4 [Mass/Vol] 1.41 ng/dL Normal 0.76-1.46 [facility] Comment on above: Performed By: #### C MADM, BNP, CMP #### [facility] [place] [facility] [address] [place] [address] Dr. Marco Greer LIVER PROFILEon 03-11-2022 Albumin [Mass/Vol] 3.0 g/dL Critically low 3.4-5.0 Th e [facility] Comment on above: Performed By: #### C MP #### [facility] [address] [place] [address] Dr. Marco Greer Albumin/Globulin [Mass ratio] 0.9 {ratio} Normal [facility] Comment on above: Performed By: #### C MP #### [facility] [place] [facility] [address] [place] [address] Dr. Marco Greer ALP [Catalytic activity/Vol] 89 U/L Normal 46-116 [facility] Comment on above: Performed By: #### C MP #### [facility] [place] [facility] [address] [place] [address] Dr. Marco Greer ALT [Catalytic activity/Vol] 19 U/L Normal 14-59 [facility] Comment on above: Performed By: #### C MP #### [facility] [place] [facility] [address] [place] [address] Dr. Marco Greer AST [Catalytic activity/Vol] 22 U/L Normal 15-37 [facility] Comment on above: Performed By: #### C MP #### [facility] [place] [facility] [address] [place] [address] Dr. Marco Greer BILI, CONJUGATED 0.1 mg/dL Normal 0.0-0.2 [facility] Comment on above: Performed By: #### C MP #### [facility] [place] [facility] [address] [place] [address] Dr. Marco Greer Bilirubin [Mass/Vol] 0.3 mg/dL Normal 0.2-1.0 [facility] Comment on above: Performed By: #### C MP #### [facility] [place] [facility] [address] [place] [address] Dr. Marco Greer Globulin (S) [Mass/Vol] 3.5 g/dL Normal [facility] [place] Comment on above: Performed By: #### C MP #### [facility] [place] [facility] [address] [address] [address] Marco Greer Protein [Mass/Vol] 6.5 g/dL Normal 6.4-8.2 [facility] Comment on above: Performed By: #### C MP #### [facility] [place] [facility] [address] [place] [address] Dr. Marco Greer PROF CHEM 8 (BAS METB)on Anion gap [Moles/Vol] 11.3 mmol/L Normal [facility] Comment on above: Performed By: #### C MP #### [facility] [place] [facility] [address] [place] [address] Dr. Marco Greer Calcium [Mass/Vol] 8.7 mg/dL Normal 8.5-10.1 [facility] Comment on above: Performed By: #### C MP #### [facility] [place] [facility] [address] [place] [address] Dr. Marco Greer Chloride [Moles/Vol] 103 mmol/L Normal 98-107 [facility] Comment on above: Performed By: #### C MP #### [facility] [place] [facility] [address] [place] [address] Dr. Marco Greer CO2 [Moles/Vol] 26.6 mmol/L Normal 21.0-32.0 [facility] Comment on above: Performed By: #### C MP #### [facility] [place] [facility] [address] [place] [address] Dr. Marco Greer Creatinine [Mass/Vol] 0.88 mg/dL Normal 0.55-1.02 [facility] Comment on above: Performed By: #### C MP #### [facility] [place] [facility] [address] [place] [address] Dr. Marco Greer EGFR-AF LAO >60 Normal >=60 [facility] Comment on above: Performed By: #### C MP #### [facility] [place] [facility] [address] [place] [address] Dr. Marco Greer EGFR-NON AF LAO >60 Normal >=60 [facility] Comment on above: Performed By: #### C MP #### [facility] [place] [facility] [address] [address] [address] Marco Greer Glucose [Mass/Vol] 91 mg/dL Normal 74-106 [facility] Comment on above: Performed By: #### C MP #### [facility] [place] [facility] [address] [address] [address] Marco Greer Potassium [Moles/Vol] 3.9 mmol/L Normal 3.5-5.1 [facility] Comment on above: Performed By: #### C MP #### [facility] [place] [facility] [address] [address] [address] Marco Greer Sodium [Moles/Vol] 137 mmol/L Normal 136-145 [facility] Comment on above: Performed By: #### C MP #### [facility] [place] [facility] [address] [address] [address] Marco Greer Urea nitrogen [Mass/Vol] 20.0 mg/dL Critically high 7.0-18.0 [facility] Comment on above: Performed By: #### C MP #### [facility] [place] [facility] [address] [address] [address] Marco Greer Urea nitrogen/Creatinine [Mass ratio] 22.7 mg/mg Normal [facility] Comment on above: Performed By: #### C MP #### [facility] [place] [facility] [address] [address] [address] Marco Greer SED RATE [facility] 2021 SED RATE 60 mm/hr Critically high <=30 [facility] Comment on above: Performed By: #### C MADM, BNP, CMP #### [facility] [place] [facility] [address] [address] [address] Marco Greer TSHon 03-11-2022 TSH 0.600 uIU/mL Normal 0.358-3.74 0 [facility] Comment on above: Performed By: #### C MP #### [facility] [place] [facility] [address] [place] [address] Dr. Marco Greer Albumin [Mass/volume] in Ser um or PlasmaOrdered By: Brianda Harris on 03-04-2022 Albumin [Mass/Vol] 3.1 g/dL 3.2-5.5 [facility] Basophils Auto (Bld) [#/Vol] Ordered By: Brianda Harris on 03-04-2022 Basophils (Bld) [#/Vol] 0.1 10*3/uL 0.0-0.2 [facility] Basophils/100 WBC Auto (Bld) Ordered By: Brianda Harris on 03-04-2022 Basophils/100 WBC (Bld) 0.5 % . [facility] Creatinine and Glomerular fi ltration rate.predicted panel (S/P/Bld)Ordered By: Brianda Harris on 03-04-2022 Creatinine [Mass/Vol] 0.88 mg/dL 0.44-1.03 [facility] Eosinophils Auto (Bld) [#/Vo l]Ordered By: Brianda Harris on 03-04-2022 Eosinophils (Bld) [#/Vol] 0.0 10*3/uL 0.0-0.45 [facility] Eosinophils/100 WBC Auto (Bl d)Ordered By: Brianda Harris on 03-04-2022 Eosinophils/100 WBC (Bld) 0.4 % . [facility] Erythrocyte distribution wid th Auto (RBC) [Ratio]Ordered By: Brianda Harris on 03-04-2022 Erythrocyte distribution width (RBC) [Ratio] 15.7 % 11.9-15.3 [facility] Erythrocyte sedimentation ra te by Photometric methodOrdered By: Brianda Harris on 03-04-2022 ESR Photometric method (Bld) [Velocity] 59 mm/hr 0-29 [facility] Estimated glomerular filtrat ion rate (GFR) non- AmericanOrdered By: Brianda Harris on 03-04-2022 GFR/1.73 sq M.predicted among non-blacks MDRD (S/P/Bld) [Vol rate/Area] > 60 mL/Min [facility] Globulin Calc (S) [Mass/Vol] Ordered By: Brianda Harris on 03-04-2022 Globulin (S) [Mass/Vol] 3.7 g/dL [facility] Hematocrit Auto (Bld) [Volum e fraction]Ordered By: Brianda Harris on 03-04-2022 Hematocrit (Bld) [Volume fraction] 36.5 % 34.0-46.4 [facility] Hemoglobin [Mass/volume] in BloodOrdered By: Brianda Harris on 03-04-2022 Hemoglobin (Bld) [Mass/Vol] 11.7 g/dL 11.8-15.4 [facility] Leukocytes [#/volume] correc abena for nucleated erythrocytes in Blood by Automated counOrdered By: Brianda Harris on 03-04-2022 WBC corrected for nucl RBC Auto (Bld) [#/Vol] 10.4 10*3/uL 3.8-11.6 [facility] Lymphocytes Auto (Bld) [#/Vo l]Ordered By: Brianda Harris on 03-04-2022 Lymphocytes (Bld) [#/Vol] 0.9 10*3/uL 1.00-4.8 [facility] Lymphocytes/100 WBC Auto (Bl d)Ordered By: Brianda Harris on 03-04-2022 Lymphocytes/100 WBC (Bld) 8.5 % . [facility] MCH Auto (RBC) [Entitic mass ]Ordered By: Brianda Harris on 03-04-2022 MCH (RBC) [Entitic mass] 26.7 pg 24.7-34.3 [facility] MCHC Auto (RBC) [Mass/Vol]Or dered By: Brianda Harris on 03-04-2022 MCHC (RBC) [Mass/Vol] 31.9 g/dL 32.0-35.0 [facility] MCV Auto (RBC) [Entitic vol] Ordered By: Brianda Harris on 03-04-2022 MCV (RBC) [Entitic vol] 83.8 fL 80-100 [facility] Monocytes Auto (Bld) [#/Vol] Ordered By: Brianda Harris on 03-04-2022 Monocytes (Bld) [#/Vol] 0.2 10*3/uL 0.0-0.8 [facility] Monocytes/100 WBC Auto (Bld) Ordered By: Brianda Harris on 03-04-2022 Monocytes/100 WBC (Bld) 2.3 % . [facility] Neutrophils Auto (Bld) [#/Vo l]Ordered By: Brianda Harris on 03-04-2022 Neutrophils (Bld) [#/Vol] 9.2 10*3/uL 1.8-7.7 [facility] Neutrophils/100 WBC Auto (Bl d)Ordered By: Brianda Harris on 03-04-2022 Neutrophils/100 WBC (Bld) 88.3 % . [facility] No Panel InformationOrdered By: Brianda Harris on 03-04-2022 Estimated GFR () > 60 mL/Min [facility] Comment on above: GFR estimated refere nce range: According to KDOQI guidelines, <60 ml/min/1.73m2 is sufficient to diagnose a patient with chronic kidney disease. Pharmacy Creatinine Clearance (Chem N/A [facility] Nucleated erythrocytes [Pres ence] in Blood by Automated countOrdered By: Brianda Harris on 03-04-2022 Nucleated RBC Auto Ql (Bld) 0.0 /100{WBC} 0-0.5 [facility] Platelet mean volume Auto (B ld) [Entitic vol]Ordered By: Brianda Harris on 03-04-2022 Platelet mean volume (Bld) [Entitic vol] 8.5 fL 6.3-10.7 [facility] Platelets Auto (Bld) [#/Vol] Ordered By: Brianda Harris on 03-04-2022 Platelets (Bld) [#/Vol] 395 10*3/uL 150-450 [facility] Protein [Mass/volume] in Ser um or PlasmaOrdered By: Brianda Harris on 03-04-2022 Protein [Mass/Vol] 6.8 g/dL 6.1-7.9 [facility] RBC Auto (Bld) [#/Vol]Ordere d By: Brianda Harris on 03-04-2022 RBC (Bld) [#/Vol] 4.36 10*6/uL 3.60-5.00 [facility] Serum or plasma alanine kenny otransferase measurement without P-5'-P (enzymatic activiOrdered By: Brianda Harris on 03-04-2022 ALT No additional P-5'-P [Catalytic activity/Vol] 25 U/L 10-60 [facility] Serum or plasma albumin/glob ulin mass ratioOrdered By: Brianda Harris on 03-04-2022 Albumin/Globulin [Mass ratio] 0.8 {ratio} [facility] Serum or plasma alkaline lisy sphatase measurement (enzymatic activity/volume)Ordered By: Brianda Harris on 03-04-2022 ALP [Catalytic activity/Vol] 87 U/L 32-92 [facility] Serum or plasma anion gap de terminationOrdered By: Brianda Harris on 03-04-2022 Anion gap [Moles/Vol] 12.6 mmol/L 6.0-15.0 [facility] Serum or plasma aspartate am inotransferase measurement (enzymatic activity/volume)Ordered By: Brianda Harris on 03-04-2022 AST [Catalytic activity/Vol] 29 U/L 10 [facility] Serum or plasma calcium rashmi urement (mass/volume)Ordered By: Brianda Harris on 03-04-2022 Calcium [Mass/Vol] 8.9 mg/dL 8.2-10.2 [facility] Serum or plasma chloride reece surement (moles/volume)Ordered By: Brianda Harris on 03-04-2022 Chloride [Moles/Vol] 98 mmol/L 95-114 [facility] Serum or plasma glucose rashmi urement (mass/volume)Ordered By: Brianda Harris on 03-04-2022 Glucose [Mass/Vol] 109 mg/dL 70-100 [facility] Comment on above: ADA recommended refe rence rangeRandom Glucose Reference Range is dependent on time and content of last meal. Glucose of more than 200 mg/dL in a nonstressed, ambulatory subject supports the diagnosis of Diabetes Mellitus. Serum or plasma potassium me asurement (moles/volume)Ordered By: Brianda Harris on 03-04-2022 Potassium [Moles/Vol] 3.6 mmol/L 3.5-5.1 [facility] Serum or plasma sodium measu rement (moles/volume)Ordered By: Brianda Harris on 03-04-2022 Sodium [Moles/Vol] 131 mmol/L 136-146 [facility] Serum or plasma total biliru bin measurement (mass/volume)Ordered By: Brianda Harris on 03-04-2022 Bilirubin [Mass/Vol] 0.5 mg/dL 0.3-1.2 [facility] Serum or plasma total carbon dioxide measurement (moles/volume)Ordered By: Brianda Harris on 03-04-2022 CO2 [Moles/Vol] 24.0 mmol/L 22.0-30.0 [facility] Serum or plasma urea nitroge n measurement (mass/volume)Ordered By: Brianda Harris on 03-04-2022 Urea nitrogen [Mass/Vol] 15 mg/dL 9-23 [facility] WBC Auto (Bld) [#/Vol]Ordere d By: Brianda Harris on 03-04-2022 WBC (Bld) [#/Vol] 10.4 10*3/uL 3.8-11.6 [facility] Electrocardiogram 12 Leadon 02-27-2022 Electrocardiogram 12 Lead Ventricular Rate 61 Atrial Rate 61 P-R Interval 172 QRS Duration 90 Q-T Interval 446 QTC Calculation(Bazett) 448 P Seadrift 64 R Seadrift 27 T Seadrift 95 QRS Count 11 Q Onset 221 [...] in Anterior-lateral leads Confirmed by Jan Gaona ([id number]) on 03/02/2022 2:16:11 PM Normal [facility] No Panel Informationon 02-27 [email or web address] ?RetrieveTestByDateTime?Pa eggbtOF=[id number]&Date=&Time=13%3a11%3a48% 3a00&TestType=ECG&Site=1&O utputType=PDF&Ext=PDF [facility] 250 DO Work Phone: Sinus rhythm with occasional Premature ventricular complexes [facility] 250 DO Work Phone: Abnormal [facility] 250 DO Work Phone: [phone] [facility] 250 DO Work Phone: [phone] [facility] 250 DO Work Phone: [phone] [facility] 250 DO Work Phone: 135 1 [facility] 250 DO Work Phone: [phone] [facility] 250 DO Work Phone: 11 1 [facility] 250 DO Work Phone: 95 1 [facility] 250 DO Work Phone: 27 1 [facility] 250 DO Work Phone: 64 1 [facility] 250 DO Work Phone: 446 1 [facility] 250 DO Work Phone: 90 1 [facility] 250 DO Work Phone: 172 1 [facility] 250 DO Work Phone: 61 1 [facility] 250 DO Work Phone: Office Visit (Cardiac Surger y)on 02-27-2022 Follow-up visit Diagnoses/Problems Assessed CAD (coronary artery disease) (414.00) (I25.10) S/P CABG x 3 (V45.81) (Z95.1) Orders CAD (coronary artery disease) Electrocardiogram 12 Lead; Status:Complete; Done: [id number] 01:23PM S/P CABG x 3 Cardiac Rehab Referral Evaluation and Treatment BELLVUE Status: Hold For - Scheduling,Retrospective By Protocol Authorization Requested for: [id number] Agreement : I agree to have my [...] 1 tablet 2x/day. Vitals Vital Signs Recorded: [id number] 01:19PM Heart Rate61 Liglcjqy752, LUE, Sitting Khsbcmwoy04, LUE, Sitting Height5 ft 4 in Xhjxrr775 lb 2 oz BMI Zjechsjynv36.79 kg/m2 BSA Calculated1.58 Tobacco Useb) No Falls Screening (Age 18+)a) No falls within the last year O2 Vqfnolphik17, RA Pain Scale0/10 Physical Exam On examination [...] Feb 27 2022 2:11PM EST (Author) Normal [facility] 02-27-2022 XR Chest 2 Views Please click on the link to view the study images Normal [facility] [address] [place] Work Phone: TH CHEST 2 VIEW PA AND LATon 02-27-2022 TH CHEST 2 VIEW PA AND LAT Patient Name: CELY FINCH STUDY: TH CHEST 2 VIEW PA AND LAT; 02/27/2022 11:28 am INDICATION: P/OP Z95.1: S/P CABG x 3. COMPARISON: Chest radiograph 01/24/2022 ACCESSION NUMBER(S): [id number] ORDERING CLINICIAN: ALBIN PIERCE FINDINGS: PA and [...] as stated. This study was interpreted at [facility] [place], [place], [place]. Electronically signed by: Keagan ROSARIO MD Normal [facility] Tobacco Screening.on 022 Fall risk assessment a) No falls within the last year [facility] [address] [place] Work Phone: Tobacco use status [facility] b) No [facility] [address] [place] Work Phone: Creatinine and Glomerular fi ltration rate.predicted panel (S/P/Bld)Ordered By: Kvng Romo on 02-24-2022 Creatinine [Mass/Vol] 0.81 mg/dL 0.44-1.03 [facility] Estimated glomerular filtrat ion rate (GFR) non- AmericanOrdered By: Kvng Romo on 02-24-2022 GFR/1.73 sq M.predicted among non-blacks MDRD (S/P/Bld) [Vol rate/Area] > 60 mL/Min [facility] No Panel InformationOrdered By: Kvng Romo on 02-24-2022 Estimated GFR () > 60 mL/Min [facility] Comment on above: GFR estimated refere nce range: According to KDOQI guidelines, <60 ml/min/1.73m2 is sufficient to diagnose a patient with chronic kidney disease. Pharmacy Creatinine Clearance (Chem N/A [facility] Serum or plasma anion gap de terminationOrdered By: Kvng Romo on 02-24-2022 Anion gap [Moles/Vol] 15.0 mmol/L 6.0-15.0 [facility] Serum or plasma calcium rashmi urement (mass/volume)Ordered By: Kvng Romo on 02-24-2022 Calcium [Mass/Vol] 9.1 mg/dL 8.2-10.2 [facility] Serum or plasma chloride reece surement (moles/volume)Ordered By: Kvng Romo on 02-24-2022 Chloride [Moles/Vol] 96 mmol/L 95-114 [facility] Serum or plasma glucose rashmi urement (mass/volume)Ordered By: Kvng Romo on 02-24-2022 Glucose [Mass/Vol] 77 mg/dL 70-100 [facility] Comment on above: ADA recommended refe rence rangeRandom Glucose Reference Range is dependent on time and content of last meal. Glucose of more than 200 mg/dL in a nonstressed, ambulatory subject supports the diagnosis of Diabetes Mellitus. Serum or plasma potassium me asurement (moles/volume)Ordered By: Kvng Romo on 02-24-2022 Potassium [Moles/Vol] 3.9 mmol/L 3.5-5.1 [facility] Serum or plasma sodium measu rement (moles/volume)Ordered By: Kvng Romo on 02-24-2022 Sodium [Moles/Vol] 129 mmol/L 136-146 [facility] Serum or plasma total carbon dioxide measurement (moles/volume)Ordered By: Kvng Romo on 02-24-2022 CO2 [Moles/Vol] 21.9 mmol/L 22.0-30.0 [facility] Serum or plasma urea nitroge n measurement (mass/volume)Ordered By: Kvng Romo on 02-24-2022 Urea nitrogen [Mass/Vol] 10 mg/dL 9- [facility] Initial Visit (Nephrology)on 02-17-2022 Initial Visit (Nephrology) Diagnoses/Problems Benign essential hypertension (401.1) (I10) S/P CABG x 3 (V45.81) (Z95.1) 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 She was seen also secondary to hyponatremia she has chronic hyponatremia per records with baseline sodium per the records of 04 12- She was on urea packets, Lasix as needed and a sodium bicarbonate when she was in the hospital in [place] In December a urine osmolality was measured [...] MOUTH DA (more content not included)... Normal [facility] Tobacco Screening.on 022 Fall risk assessment a) No falls within the last year [facility] Work Phone: Tobacco use status PORTER [facility] b) No [facility] Work Phone: Office Visit (Cardiology)on 02-13-2022 Follow-up [...] IO EKG Electrocardiogram- 12 Lead; Status:Complete; Done: [id number] CAD (coronary artery disease), S/P CABG x 3 Renew: Aspirin 81 MG Oral Tablet Delayed Release; TAKE 1 TABLET DAILY Renew: Atorvastatin Calcium 80 MG Oral Tablet; TAKE 1 TABLET BY MOUTH DAILY SocHx: Former smoker Tobacco Use Screening; Status:Complete; Done: [id number] Patient Instructions Please bring all medicines, vitamins, [...] up in 4 months Chief Complaint CELY FINCH is being seen for Dr. Albin Pierce- [...] (Author) Appendix #1 Vital Signs Patient: CELY FINCH; : 1940; Recorded: [id number] 11:46AMRecorded: [id number] 11:20AMRecorded: [id number] 11:15AM [id number], LUE, Si (more content not included)... Normal Touchworks Tobacco Screening.on 022 Adult depression screening assessment No [facility] [employer] [place] 250 DO Work Phone: Fall risk assessment b) One or more fall s in the last year [facility] Wagon 250 DO Work Phone: Tobacco use status CPHS b) No [facility] [employer] [place] 250 DO Work Phone: CBC AUTO DIFFon 02-10-2022 BASO # 0.1 103/ul Normal 0.0-0.1 [facility] Comment on above: Performed By: #### C MADM, BNP, CMP #### [facility] [place] [facility] [address] [place] [address] Dr. Marco Greer Basophils/100 WBC (Bld) 1.1 % Normal 0.2-2.0 [facility] Comment on above: Performed By: #### C MADM, BNP, CMP #### [facility] [place] [facility] [address] [place] [address] Dr. Marco Greer EO # 0.5 103/ul Normal 0.0-0.7 [facility] Comment on above: Performed By: #### C MADM, BNP, CMP #### [facility] [place] [facility] [address] [place] [address] Dr. Marco Greer Eosinophils/100 WBC (Bld) 6.0 % Normal 0.9-7.0 [facility] Comment on above: Performed By: #### C MADM, BNP, CMP #### [facility] [place] [facility] [address] [place] [address] Dr. Marco Greer Erythrocyte distribution width (RBC) [Ratio] 15.2 % Critically high 11.0-15.0 [facility] Comment on above: Performed By: #### C MADM, BNP, CMP #### [facility] [place] [facility] [address] [place] [address] Dr. Marco Greer Hematocrit (Bld) [Volume fraction] 39.6 % Normal 36.0-48.0 [facility] Comment on above: Performed By: #### C MADM, BNP, CMP #### [facility] [place] [facility] [address] [place] [address] Dr. Marco Greer Hemoglobin (Bld) [Mass/Vol] 12.4 g/dL Normal 12.0-16.0 The [facility] [place] Comment on above: Performed By: #### C MADM, BNP, CMP #### [facility] [place] [facility] [address] [place] [address] Dr. Marco Greer IG # 0.02 10e3/ul Normal 0.00-0.03 The [facility] [place] Comment on above: Performed By: #### C MADM, BNP, CMP #### [facility] [place] [facility] [address] [place] [address] Dr. Marco Greer IG % 0.3 % Normal 0.0-0.5 [facility] Comment on above: Performed By: #### C MADM, BNP, CMP #### [facility] [place] [facility] [address] [place] [address] Dr. Marco Greer LYMPH # 1.2 103/ul Normal 1.2-3.8 The [facility] [place] Comment on above: Performed By: #### C MADM, BNP, CMP #### [facility] [place] [facility] [address] [place] [address] Dr. Marco Greer Lymphocytes/100 WBC (Bld) 15.5 % Critically low 20.5-60.0 The [facility] [place] Comment on above: Performed By: #### C MADM, BNP, CMP #### [facility] [place] [facility] [address] [place] [address] Dr. Marco Greer MANUAL DIFF REQ NO Normal The [facility] [place] Comment on above: Performed By: #### C MADM, BNP, CMP #### [facility] [place] [facility] [address] [place] [address] Dr. Marco Greer MCH (RBC) [Entitic mass] 28.1 pg Normal 26.7-34.0 The [facility] [place] Comment on above: Performed By: #### C MADM, BNP, CMP #### [facility] [place] [facility] [address] [place] [address] Dr. Marco Greer MCHC (RBC) [Mass/Vol] 31.3 g/dL Normal 29.9-35.2 The [facility] [place] Comment on above: Performed By: #### C MADM, BNP, CMP #### [facility] [place] [facility] [address] [place] [address] Dr. Marco Greer MCV (RBC) [Entitic vol] 89.6 fL Normal 81.0-99.0 The [facility] [place] Comment on above: Performed By: #### C MADM, BNP, CMP #### [facility] [place] [facility] [address] [place] [address] Dr. Marco Greer MONO # 0.7 103/ul Normal 0.3-0.8 The [facility] [place] Comment on above: Performed By: #### C MADM, BNP, CMP #### [facility] [place] [facility] [address] [place] [address] Dr. Marco Greer Monocytes/100 WBC (Bld) 8.9 % Normal 1.7-12.0 [facility] Comment on above: Performed By: #### C MADM, BNP, CMP #### [facility] [place] [facility] [address] [place] [address] Dr. Marco Greer NEUT # 5.4 103/ul Normal 1.4-6.5 [facility] Comment on above: Performed By: #### C MADM, BNP, CMP #### [facility] [place] [facility] [address] [place] [address] Dr. Marco Greer Neutrophils/100 WBC (Bld) 68.2 % Normal 43.0-75.0 The [facility] [place] Comment on above: Performed By: #### C MADM, BNP, CMP #### [facility] [place] [facility] [address] [place] [address] Dr. Marco Greer Platelet mean volume (Bld) [Entitic vol] 10.1 fL Normal 9.5-13.5 [facility] Comment on above: Performed By: #### C MADM, BNP, CMP #### [facility] [place] [facility] [address] [place] [address] Dr. Marco Greer PLT 518 103/ul Critically high 150-450 [facility] Comment on above: Performed By: #### C MADM, BNP, CMP #### [facility] [place] [facility] [address] [place] [address] Dr. Marco Greer RBC 4.42 106/ul Normal 4.20-5.40 [facility] Comment on above: Performed By: #### C MADM, BNP, CMP #### [facility] [place] [facility] [address] [place] [address] Dr. Marco Greer WBC 7.9 103/ul Normal 4.0-11.0 [facility] Comment on above: Performed By: #### C MADM, BNP, CMP #### [facility] [place] [facility] [address] [place] [address] Dr. Marco Greer CRPon 02-10-2022 CRP 1.6 mg/dL Critically high <=1.0 [facility] Comment on above: Performed By: #### C RP, LIVER, TSH, BMP, FT3 #### [facility] [place] [facility] [address] [place] [address] Dr. Marco Greer FREE T3on 02-10-2022 FREE T3 1.99 pg/mlL Critically low 2.18-3.98 [facility] Comment on above: Performed By: #### C RP, LIVER, TSH, BMP, FT3 #### [facility] [place] [facility] [address] [place] [address] Dr. Marco Greer FREE T4on 02-10-2022 Free T4 [Mass/Vol] 1.43 ng/dL Normal 0.76-1.46 [facility] Comment on above: Performed By: #### C MP #### [facility] [place] [facility] [address] [place] [address] Dr. Marco Greer LIVER PROFILEon 02-10-2022 Albumin [Mass/Vol] 3.2 g/dL Critically low 3.4-5.0 Th [facility] Comment on above: Performed By: #### C RP, LIVER, TSH, BMP, FT3 #### [facility] [place] [facility] [address] [place] [address] Dr. Marco Greer Albumin/Globulin [Mass ratio] 0.7 {ratio} Normal [facility] Comment on above: Performed By: #### C RP, LIVER, TSH, BMP, FT3 #### [facility] [place] [facility] [address] [place] [address] Dr. Marco Greer ALP [Catalytic activity/Vol] 109 U/L Normal 46-116 The [facility] [place] Comment on above: Performed By: #### C RP, LIVER, TSH, BMP, FT3 #### [facility] [place] [facility] [address] [place] [address] Dr. Marco Greer ALT [Catalytic activity/Vol] 22 U/L Normal 14-59 The [facility] [place] Comment on above: Performed By: #### C RP, LIVER, TSH, BMP, FT3 #### [facility] [place] [facility] [address] [place] [address] Dr. Marco Greer AST [Catalytic activity/Vol] 24 U/L Normal 15-37 [facility] Comment on above: Performed By: #### C RP, LIVER, TSH, BMP, FT3 #### [facility] [place] [facility] [address] [place] [address] Dr. Marco Greer BILI, CONJUGATED 0.2 mg/dL Normal 0.0-0.2 The [facility] Comment on above: Performed By: #### C RP, LIVER, TSH, BMP, FT3 #### [facility] [place] [facility] [address] [place] [address] Dr. Marco Greer Bilirubin [Mass/Vol] 0.5 mg/dL Normal 0.2-1.0 The [facility] [place] Comment on above: Performed By: #### C RP, LIVER, TSH, BMP, FT3 #### [facility] [place] [facility] [address] [place] [address] Dr. Marco Greer Globulin (S) [Mass/Vol] 4.3 g/dL Normal The [facility] [place] Comment on above: Performed By: #### C RP, LIVER, TSH, BMP, FT3 #### [facility] [place] [facility] [address] [place] [address] Dr. Marco Greer Protein [Mass/Vol] 7.5 g/dL Normal 6.4-8.2 The [facility] [place] Comment on above: Performed By: #### C RP, LIVER, TSH, BMP, FT3 #### [facility] [place] [facility] [address] [place] [address] Dr. Marco Greer PROF CHEM 8 (BAS METB)on Anion gap [Moles/Vol] 13.8 mmol/L Normal Th e [facility] [place] Comment on above: Performed By: #### C RP, LIVER, TSH, BMP, FT3 #### [facility] [place] [facility] [address] [place] [address] Dr. Marco Greer Calcium [Mass/Vol] 9.3 mg/dL Normal 8.5-10.1 [facility] Comment on above: Performed By: #### C RP, LIVER, TSH, BMP, FT3 #### [facility] [place] [facility] [address] [place] [address] Dr. Marco Greer Chloride [Moles/Vol] 97 mmol/L Critically low 98-107 [facility] Comment on above: Performed By: #### C RP, LIVER, TSH, BMP, FT3 #### [facility] [place] [facility] [address] [place] [address] Dr. Marco Greer CO2 [Moles/Vol] 25.4 mmol/L Normal 21.0-32.0 [facility] Comment on above: Performed By: #### C RP, LIVER, TSH, BMP, FT3 #### [facility] [place] [facility] [address] [place] [address] Dr. Marco Greer Creatinine [Mass/Vol] 0.77 mg/dL Normal 0.55-1.02 [facility] Comment on above: Performed By: #### C RP, LIVER, TSH, BMP, FT3 #### [facility] [place] [facility] [address] [place] [address] Dr. Marco Greer EGFR-AF LAO >60 Normal >=60 The [facility] [place] Comment on above: Performed By: #### C RP, LIVER, TSH, BMP, FT3 #### [facility] [place] [facility] [address] [place] [address] Dr. Marco Greer EGFR-NON AF LAO >60 Normal >=60 [facility] Comment on above: Performed By: #### C RP, LIVER, TSH, BMP, FT3 #### [facility] [place] [facility] [address] [place] [address] Dr. Marco Greer Glucose [Mass/Vol] 78 mg/dL Normal 74-106 [facility] Comment on above: Performed By: #### C RP, LIVER, TSH, BMP, FT3 #### [facility] [place] [facility] [address] [place] [address] Dr. Marco Greer Potassium [Moles/Vol] 3.2 mmol/L Critically low 3.5-5.1 [facility] Comment on above: Performed By: #### C RP, LIVER, TSH, BMP, FT3 #### [facility] [place] [facility] [address] [place] [address] Dr. Marco Greer Sodium [Moles/Vol] 133 mmol/L Critically low 136-145 Th [facility] Comment on above: Performed By: #### C RP, LIVER, TSH, BMP, FT3 #### [facility] [place] [facility] [address] [place] [address] Dr. Marco Greer Urea nitrogen [Mass/Vol] 13.0 mg/dL Normal 7.0-18.0 [facility] Comment on above: Performed By: #### C RP, LIVER, TSH, BMP, FT3 #### [facility] [place] [facility] [address] [place] [address] Dr. Marco Greer Urea nitrogen/Creatinine [Mass ratio] 16.9 mg/mg Normal [facility] Comment on above: Performed By: #### C RP, LIVER, TSH, BMP, FT3 #### [facility] [place] [facility] [address] [place] [address] Dr. Marco Gre[facility] 83 mm/hr Critically high <=30 [facility] Comment on above: Performed By: #### C MADM, BNP, CMP #### [facility] [place] [facility] [address] [place] [address] Dr. Marco Greer TSHon 02-10-2022 TSH 4.983 uIU/mL Critically high 0.358-3.74 0 [facility] Comment on above: Performed By: #### C RP, LIVER, TSH, BMP, FT3 #### [facility] [place] [facility] [address] [place], [place] [address] Dr. Marco Greer Laboratory - Hematology and Cell countson 01-28-2022 Erythrocyte distribution width (RBC) [Ratio] 15.9 % above high threshold See Below [facility] Jaco Solarsi [employer] DO Work Phone: Comment on above: Reference Range: 11. 5 - 14.5 Hematocrit (Bld) [Volume fraction] 29.8 % below low threshold See Below [facility] Jaco Solarsi [employer] DO Work Phone: Comment on above: Reference Range: 36. 0 - 46.0 Hemoglobin (Bld) [Mass/Vol] 9.8 g/dL below low threshold See Below [facility] Jaco Solarsi [facility] DO Work Phone: Comment on above: Reference Range: 12. 0 - 16.0 MCHC (RBC) [Mass/Vol] 32.9 g/dL See Below [facility] [employer] [facility] DO Work Phone: Comment on above: Reference Range: 32. 0 - 36.0 MCV (RBC) [Entitic vol] 92 fL 80 - 100 [place] [address] DO Work Phone: Platelets (Bld) [#/Vol] 435 10*3/uL 150 - 450 [facility] DO Work Phone: RBC (Bld) [#/Vol] 3.25 {x10E12/L} below low threshold See Below [facility] [employer] kori lark DO Work Phone: Comment on above: Reference Range: 4.0 0 - 5.20 WBC (Bld) [#/Vol] 9.2 10*3/uL 4.4 - 11.3 [facility] [employer]agon 250 DO Work Phone: Magnesium, Serumon Magnesium [Mass/Vol] 2.02 mg/dL See Below [facility] Jaco Solarsi kori 250 DO Work Phone: Comment on above: Reference Range: 1.6 0 - 2.40 No Panel Informationon 01-28 0.0 {/100_WBC} 0.0-0.0 [facility] kori 250 DO Work Phone: Renal Function Panelon 01-28 Albumin BCP dye [Mass/Vol] 2.8 g/dL below low threshold 3.4 - 5.0 [facility] kori 250 DO Work Phone: Anion gap [Moles/Vol] 16 mmol/L 10 - 20 [place] [address] DO Work Phone: Calcium [Mass/Vol] 8.5 mg/dL below low threshold 8.6 - 10.6 [facility] 250 DO Work Phone: Chloride [Moles/Vol] 99 mmol/L 98 - 107 [facility] kori 250 DO Work Phone: CO2 [Moles/Vol] 23 mmol/L 21 - 32 [place] [address] DO Work Phone: Creatinine [Mass/Vol] 0.71 mg/dL See Below [facility] 250 DO Work Phone: Comment on above: Reference Range: 0.5 0 - 1.05 Glucose [Mass/Vol] 71 mg/dL below low threshold 74 - 99 [facility] kori 250 DO Work Phone: Phosphate [Mass/Vol] 3.8 mg/dL 2.5 - 4.9 [facility] kori 250 DO Work Phone: Comment on above: The performance andra acteristics of phosphorus testing in heparinized plasma have been validated by the individual laboratory site where testing is performed. Testing on heparinized plasma is not approved by the FDA; however, such approval is not necessary. Potassium [Moles/Vol] 4.9 mmol/L 3.5 - 5.3 [facility] [employer] DO Work Phone: Sodium [Moles/Vol] 133 mmol/L below low threshold 136 - 145 [facility] [employer] DO Work Phone: Urea nitrogen [Mass/Vol] 48 mg/dL above high threshold 6 - 23 [facility] Jaco Solarsiasa [employer] DO Work Phone: Renal Function Panel 86 {mL/min/1.73m2} >90 [facility] Jaco Solarsiasa [employer] DO Work Phone: Comment on above: CALCULATIONS OF MOISES MATED GFR ARE PERFORMED USING THE 2020 CKD-EPI STUDY REFIT EQUATION WITHOUT THE RACE VARIABLE FOR THE IDMS-TRACEABLE CREATININE METHODS.https://jasn.asnjournals.org/content/early/A SN.2086112929 Coronavirus 2019 RNA by PCR, Screening Asymptomticon 01-27-2022 Coronavirus 2019 RNA by PCR, Screening Asymptomtic Not detected Normal See Below -[facility] [employer] kori lark DO Work Phone: Comment on above: SOURCE: [...] this test method. Fact sheet for providers: www.fda.gov/media/698086/downloadFact sheet for patients: www.fda.gov/media/207932/downloadThis test has received FDA Emergency Use Authorization (EUA) and has been verified by [facility] [place] ([facility]). This test is only authorized for the duration of time that circumstances exist to justify the authorization of the emergency use of in vitro diagnostic tests for the detection of SARS-CoV-2 virus and/or diagnosis of COVID-19 infection under section 564(b)(1) of the Act, 21 U.S.C. 360bbb-3(b)(1), unless the authorization is terminated or revoked sooner. [facility] [place] is certified under CLIA-88 as qualified to perform high complexity testing. Testing is performed in the [facility] laboratories located at [address] [place] [address]. Laboratory - Hematology and Cell countson 01-27-2022 Erythrocyte distribution width (RBC) [Ratio] 15.6 % above high threshold See Below [facility] Jaco Solarsi kori 250 DO Work Phone: Comment on above: Reference Range: 11. 5 - 14.5 Hematocrit (Bld) [Volume fraction] 28.3 % below low threshold See Below [facility] kori 250 DO Work Phone: Comment on above: Reference Range: 36. 0 - 46.0 Hemoglobin (Bld) [Mass/Vol] 9.5 g/dL below low threshold See Below [facility] DO Work Phone: Comment on above: Reference Range: 12. 0 - 16.0 MCHC (RBC) [Mass/Vol] 33.6 g/dL See Below [place] [address] DO Work Phone: Comment on above: Reference Range: 32. 0 - 36.0 MCV (RBC) [Entitic vol] 90 fL 80 - 100 [facility] DO Work Phone: Platelets (Bld) [#/Vol] 462 10*3/uL above high threshold 150 - 450 [facility] 250 DO Work Phone: RBC (Bld) [#/Vol] 3.16 {x10E12/L} below low threshold See Below [facility] 250 DO Work Phone: Comment on above: Reference Range: 4.0 0 - 5.20 WBC (Bld) [#/Vol] 10.4 10*3/uL 4.4 - 11.3 [facility] kori 250 DO Work Phone: Magnesium, Serumon 2 Magnesium [Mass/Vol] 1.99 mg/dL See Below [facility] Jaco Solarsi [place]oir 250 DO Work Phone: Comment on above: Reference Range: 1.6 0 - 2.40 No Panel Informationon 01-27 0.0 {/100_WBC} 0.0-0.0 [facility] crowd[facility]etingChi [facility] kori 250 DO Work Phone: Renal Function Panelon 01-27 Albumin BCP dye [Mass/Vol] 2.7 g/dL below low threshold 3.4 - 5.0 [facility] kori 250 DO Work Phone: Anion gap [Moles/Vol] 12 mmol/L 10 - 20 [place] [address] DO Work Phone: Calcium [Mass/Vol] 8.3 mg/dL below low threshold 8.6 - 10.6 [facility] 250 DO Work Phone: Chloride [Moles/Vol] 95 mmol/L below low threshold 98 - 107 [facility] 250 DO Work Phone: CO2 [Moles/Vol] 26 mmol/L 21 - 32 [place] [address] DO Work Phone: Creatinine [Mass/Vol] 0.73 mg/dL See Below [place] [address] DO Work Phone: Comment on above: Reference Range: 0.5 0 - 1.05 Glucose [Mass/Vol] 77 mg/dL 74 - 99 [facility] ServicesBrand[facility] kori 250 DO Work Phone: Phosphate [Mass/Vol] 4.2 mg/dL 2.5 - 4.9 [facility] kori 250 DO Work Phone: Comment on above: The performance andra acteristics of phosphorus testing in heparinized plasma have been validated by the individual laboratory site where testing is performed. Testing on heparinized plasma is not approved by the FDA; however, such approval is not necessary. Potassium [Moles/Vol] 4.9 mmol/L 3.5 - 5.3 [facility] Jaco Solarsi [employer] DO Work Phone: Sodium [Moles/Vol] 128 mmol/L below low threshold 136 - 145 [facility] kori lark DO Work Phone: Urea nitrogen [Mass/Vol] 48 mg/dL above high threshold 6 - 23 [facility] kori lark DO Work Phone: Renal Function Panel 83 {mL/min/1.73m2} >90 [facility] Jaco Solarsi [employer] DO Work Phone: Comment on above: CALCULATIONS OF MOISES MATED GFR ARE PERFORMED USING THE 2020 CKD-EPI STUDY REFIT EQUATION WITHOUT THE RACE VARIABLE FOR THE IDMS-TRACEABLE CREATININE METHODS.https://jasn.asnjournals.org/content//A .4826607699 Laboratory - Hematology and Cell countson 01-26-2022 Erythrocyte distribution width (RBC) [Ratio] 15.5 % above high threshold See Below [facility] Jaco Solarsi kori lark DO Work Phone: Comment on above: Reference Range: 11. 5 - 14.5 Hematocrit (Bld) [Volume fraction] 30.3 % below low threshold See Below [facility] Jaco Solarsi I[employer]ocks DO Work Phone: Comment on above: Reference Range: 36. 0 - 46.0 Hemoglobin (Bld) [Mass/Vol] 10.0 g/dL below low threshold See Below [facility] [employer] IPLocks DO Work Phone: Comment on above: Reference Range: 12. 0 - 16.0 MCHC (RBC) [Mass/Vol] 33.0 g/dL See Below [facility] [employer] IPLocks DO Work Phone: Comment on above: Reference Range: 32. 0 - 36.0 MCV (RBC) [Entitic vol] 90 fL 80 - 100 [facility] [employer]u kori 250 DO Work Phone: Platelets (Bld) [#/Vol] 454 10*3/uL above high threshold 150 - 450 [facility] Jaco Solarsi kori 250 DO Work Phone: RBC (Bld) [#/Vol] 3.36 {x10E12/L} below low threshold See Below [facility] Jaco Solarsi kori 250 DO Work Phone: Comment on above: Reference Range: 4.0 0 - 5.20 WBC (Bld) [#/Vol] 12.6 10*3/uL above high threshold 4.4 - 11.3 [facility] kori 250 DO Work Phone: Magnesium, Serumon 2 Magnesium [Mass/Vol] 2.00 mg/dL See Below [facility] Jaco Solarsi kori 250 DO Work Phone: Comment on above: Reference Range: 1.6 0 - 2.40 No Panel Informationon 01-26 0.0 {/100_WBC} 0.0-0.0 [facility] Jaco Solarsi kori 250 DO Work Phone: Renal Function Panelon 01-26 Albumin BCP dye [Mass/Vol] 3.1 g/dL below low threshold 3.4 - 5.0 [facility] DO Work Phone: Anion gap [Moles/Vol] 16 mmol/L 10 - 20 [facility] [address] kori 250 DO Work Phone: Calcium [Mass/Vol] 8.7 mg/dL 8.6 - 10.6 [facility] Jaco Solarsi kori 250 DO Work Phone: Chloride [Moles/Vol] 92 mmol/L below low threshold 98 - 107 [facility] kori 250 DO Work Phone: CO2 [Moles/Vol] 24 mmol/L 21 - 32 [facility] [facility] kori 250 DO Work Phone: Creatinine [Mass/Vol] 0.82 mg/dL See Below [place] [address] DO Work Phone: Comment on above: Reference Range: 0.5 0 - 1.05 Glucose [Mass/Vol] 113 mg/dL above high threshold 74 - 99 [place] [address] DO Work Phone: Phosphate [Mass/Vol] 4.2 mg/dL 2.5 - 4.9 [facility] 250 DO Work Phone: Comment on above: The performance andra acteristics of phosphorus testing in heparinized plasma have been validated by the individual laboratory site where testing is performed. Testing on heparinized plasma is not approved by the FDA; however, such approval is not necessary. Potassium [Moles/Vol] 4.3 mmol/L 3.5 - 5.3 [place] [address] DO Work Phone: Sodium [Moles/Vol] 128 mmol/L below low threshold 136 - 145 [place] [address] DO Work Phone: Urea nitrogen [Mass/Vol] 46 mg/dL above high threshold 6 - 23 [place] [address] DO Work Phone: Renal Function Panel 72 {mL/min/1.73m2} >90 [place] [address] DO Work Phone: Comment on above: CALCULATIONS OF MOISES MATED GFR ARE PERFORMED USING THE 2020 CKD-EPI STUDY REFIT EQUATION WITHOUT THE RACE VARIABLE FOR THE IDMS-TRACEABLE CREATININE METHODS.https://jasn.asnjournals.org/content//A SN.[id number] Albumin BCP dye [Mass/Vol] 2.9 g/dL below low threshold 3.4 - 5.0 [place] [address] DO Work Phone: Anion gap [Moles/Vol] 14 mmol/L 10 - 20 [place] [address] DO Work Phone: Calcium [Mass/Vol] 8.4 mg/dL below low threshold 8.6 - 10.6 [place] [address] DO Work Phone: Chloride [Moles/Vol] 92 mmol/L below low threshold 98 - 107 [place] [address] DO Work Phone: CO2 [Moles/Vol] 25 mmol/L 21 - 32 [place] [address] DO Work Phone: Creatinine [Mass/Vol] 0.73 mg/dL See Below [place] [address] DO Work Phone: Comment on above: Reference Range: 0.5 0 - 1.05 Glucose [Mass/Vol] 79 mg/dL 74 - 99 [facility] 250 DO Work Phone: Phosphate [Mass/Vol] 4.4 mg/dL 2.5 - 4.9 [facility] 250 DO Work Phone: Comment on above: The performance andra acteristics of phosphorus testing in heparinized plasma have been validated by the individual laboratory site where testing is performed. Testing on heparinized plasma is not approved by the FDA; however, such approval is not necessary. Potassium [Moles/Vol] 5.2 mmol/L 3.5 - 5.3 [place] [address] DO Work Phone: Sodium [Moles/Vol] 126 mmol/L below low threshold 136 - 145 [place] [address] DO Work Phone: Urea nitrogen [Mass/Vol] 40 mg/dL above high threshold 6 - 23 [place] [address] DO Work Phone: Renal Function Panel 83 {mL/min/1.73m2} >90 [place] [address] DO Work Phone: Comment on above: CALCULATIONS OF MOISES MATED GFR ARE PERFORMED USING THE 2020 CKD-EPI STUDY REFIT EQUATION WITHOUT THE RACE VARIABLE FOR THE IDMS-TRACEABLE CREATININE METHODS.https://jasn.asnjournals.org/content//A .[id number] Laboratory - Hematology and Cell countson 01-25-2022 Erythrocyte distribution width (RBC) [Ratio] 15.2 % above high threshold See Below [facility] IPLocks DO Work Phone: Comment on above: Reference Range: 11. 5 - 14.5 Hematocrit (Bld) [Volume fraction] 29.7 % below low threshold See Below [facility] IPLocks DO Work Phone: Comment on above: Reference Range: 36. 0 - 46.0 Hemoglobin (Bld) [Mass/Vol] 9.9 g/dL below low threshold See Below [place] [address] DO Work Phone: Comment on above: Reference Range: 12. 0 - 16.0 MCHC (RBC) [Mass/Vol] 33.3 g/dL See Below [facility] lark DO Work Phone: Comment on above: Reference Range: 32. 0 - 36.0 MCV (RBC) [Entitic vol] 89 fL 80 - 100 [place] [address] DO Work Phone: Platelets (Bld) [#/Vol] 490 10*3/uL above high threshold 150 - 450 [place] [address] DO Work Phone: RBC (Bld) [#/Vol] 3.33 {x10E12/L} below low threshold See Below [facility] lark DO Work Phone: Comment on above: Reference Range: 4.0 0 - 5.20 WBC (Bld) [#/Vol] 15.4 10*3/uL above high threshold 4.4 - 11.3 [facility] lark DO Work Phone: Magnesium, Serumon 2 Magnesium [Mass/Vol] 1.89 mg/dL See Below [facility] Atooma DO Work Phone: Comment on above: Reference Range: 1.6 0 - 2.40 No Panel Informationon 01-25 0.0 {/100_WBC} 0.0-0.0 [facility] Jaco Solarsi IPLocks DO Work Phone: Renal Function Panelon 01-25 Albumin BCP dye [Mass/Vol] 3.1 g/dL below low threshold 3.4 - 5.0 [facility] Jaco Solarsi IPLocks DO Work Phone: Anion gap [Moles/Vol] 16 mmol/L 10 - 20 [place] [address] DO Work Phone: Calcium [Mass/Vol] 8.5 mg/dL below low threshold 8.6 - 10.6 [facility] DO Work Phone: Chloride [Moles/Vol] 91 mmol/L below low threshold 98 - 107 [facility] [facility] IPLocks DO Work Phone: CO2 [Moles/Vol] 22 mmol/L 21 - 32 [place] [address] DO Work Phone: Creatinine [Mass/Vol] 0.72 mg/dL See Below [facility]orm[facility] IPLocks DO Work Phone: Comment on above: Reference Range: 0.5 0 - 1.05 Glucose [Mass/Vol] 94 mg/dL 74 - 99 [facility] Atooma DO Work Phone: Phosphate [Mass/Vol] 4.5 mg/dL 2.5 - 4.9 [facility] Jaco Solarsi IPLocks DO Work Phone: Comment on above: The performance andra acteristics of phosphorus testing in heparinized plasma have been validated by the individual laboratory site where testing is performed. Testing on heparinized plasma is not approved by the FDA; however, such approval is not necessary. Potassium [Moles/Vol] 5.1 mmol/L 3.5 - 5.3 [facility] Jaco Solarsi kori 250 DO Work Phone: Sodium [Moles/Vol] 124 mmol/L below low threshold 136 - 145 [facility] kori 250 DO Work Phone: Urea nitrogen [Mass/Vol] 40 mg/dL above high threshold 6 - 23 [place] [address] DO Work Phone: Renal Function Panel 84 {mL/min/1.73m2} >90 [facility] lark DO Work Phone: Comment on above: CALCULATIONS OF MOISES MATED GFR ARE PERFORMED USING THE 2020 CKD-EPI STUDY REFIT EQUATION WITHOUT THE RACE VARIABLE FOR THE IDMS-TRACEABLE CREATININE METHODS.https://jasn.asnjournals.org/content//A SN.[id number] Albumin BCP dye [Mass/Vol] 3.1 g/dL below low threshold 3.4 - 5.0 [facility] kori lark DO Work Phone: Anion gap [Moles/Vol] 15 mmol/L 10 - 20 [facility] lark DO Work Phone: Calcium [Mass/Vol] 8.6 mg/dL 8.6 - 10.6 [facility] Jaco Solarsi kori 250 DO Work Phone: Chloride [Moles/Vol] 92 mmol/L below low threshold 98 - 107 [facility] kori 250 DO Work Phone: CO2 [Moles/Vol] 21 mmol/L 21 - 32 [facility] lark DO Work Phone: Creatinine [Mass/Vol] 0.74 mg/dL See Below [facility] lark DO Work Phone: Comment on above: Reference Range: 0.5 0 - 1.05 Glucose [Mass/Vol] 85 mg/dL 74 - 99 [facility]StormAppTapalbu[facility] 250 DO Work Phone: Phosphate [Mass/Vol] 3.9 mg/dL 2.5 - 4.9 MP-N orth [facility] 250 DO Work Phone: Comment on above: The performance andra acteristics of phosphorus testing in heparinized plasma have been validated by the individual laboratory site where testing is performed. Testing on heparinized plasma is not approved by the FDA; however, such approval is not necessary. Potassium [Moles/Vol] 5.3 mmol/L 3.5 - 5.3 [place] [address] DO Work Phone: Sodium [Moles/Vol] 123 mmol/L below low threshold 136 - 145 [place] [address] DO Work Phone: Urea nitrogen [Mass/Vol] 17 mg/dL 6 - 23 [place] [address] DO Work Phone: Renal Function Panel 82 {mL/min/1.73m2} >90 [place] [address] DO Work Phone: Comment on above: CALCULATIONS OF MOISES MATED GFR ARE PERFORMED USING THE 2020 CKD-EPI STUDY REFIT EQUATION WITHOUT THE RACE VARIABLE FOR THE IDMS-TRACEABLE CREATININE METHODS.https://jasn.asnjournals.org/content//A .[id number] Cortisol, Unspecifiedon 01-13 Cortisol [Mass/Vol] 18.4 ug/dL 2.5 - 20.0 -No rth [place] [address] DO Work Phone: Laboratory - Chemistry and C hemistry - challengeon 01-24-2022 Creatinine (U) [Mass/Vol] 71.9 mg/dL See Below [place] [address] DO Work Phone: Comment on above: Reference Range: 20. 0 - 320.0 Osmolality (U) [Osmolality] 646 mosm/kg 200 - 1200 [place] [address] DO Work Phone: Potassium (U) [Moles/Vol] 48 mmol/L See Below [facility] DO Work Phone: Comment on above: Reference Range: Not Established Potassium/Creatinine (U) [Molar ratio] 67 {mmol/g_Creat} See Below [place] [address] DO Work Phone: Comment on above: Reference Range: Not Established Sodium (U) [Moles/Vol] 131 mmol/L See Below [place] [address] DO Work Phone: Comment on above: Reference Range: Not Established Sodium/Creatinine (U) [Ratio] 182 {mmol/g_Creat} See Below [place] [address] DO Work Phone: Comment on above: Reference Range: Not Established Urea nitrogen (U) [Mass/Vol] 671 mg/dL See Below [place] [address] DO Work Phone: Comment on above: Reference Range: Not Established Urea/Creatinine (U) [Molar ratio] 9.3 {g/g_Creat} See Below [facility] DO Work Phone: Comment on above: Reference Range: Not Established Laboratory - Hematology and Cell countson 01-24-2022 Erythrocyte distribution width (RBC) [Ratio] 15.2 % above high threshold See Below [place] [address] DO Work Phone: Comment on above: Reference Range: 11. 5 - 14.5 Hematocrit (Bld) [Volume fraction] 29.8 % below low threshold See Below [place] [address] DO Work Phone: Comment on above: Reference Range: 36. 0 - 46.0 Hemoglobin (Bld) [Mass/Vol] 10.0 g/dL below low threshold See Below [place] [address] DO Work Phone: Comment on above: Reference Range: 12. 0 - 16.0 MCHC (RBC) [Mass/Vol] 33.6 g/dL See Below [facility] Sai sheikh 250 DO Work Phone: Comment on above: Reference Range: 32. 0 - 36.0 MCV (RBC) [Entitic vol] 89 fL 80 - 100 [facility] Sai kori 250 DO Work Phone: Platelets (Bld) [#/Vol] 463 10*3/uL above high threshold 150 - 450 [facility] 250 DO Work Phone: RBC (Bld) [#/Vol] 3.33 {x10E12/L} below low threshold See Below [facility] 250 DO Work Phone: Comment on above: Reference Range: 4.0 0 - 5.20 WBC (Bld) [#/Vol] 12.6 10*3/uL above high threshold 4.4 - 11.3 [facility] 250 DO Work Phone: Magnesium, Serumon 2 Magnesium [Mass/Vol] 1.85 mg/dL See Below [facility] ProximexGuerita kori 250 DO Work Phone: Comment on above: Reference Range: 1.6 0 - 2.40 No Panel Informationon 01-24 210 {mmol/g_Creat} 38 - 318 [facility] Sai sheikh 250 DO Work Phone: 151 mmol/L See Below [facility] SystemKentonalbuquer[facility] 250 DO Work Phone: Comment on above: Reference Range: Not Established 0.0 {/100_WBC} 0.0-0.0 [facility] SystemEnriqueNew [facility] 250 DO Work Phone: Osmolality, Serumon 01-25-20 22 Osmolality [Osmolality] 260 {mOsm/kg_H2O} below low threshold 280 - 300 [facility] SystemVincent kori 250 DO Work Phone: Radiologyon 01-24-2022 XR Chest Single view Normal [facility] 250 DO Work Phone: Renal Function Panelon 01-24 Albumin BCP dye [Mass/Vol] 3.0 g/dL below low threshold 3.4 - 5.0 [place] [address] DO Work Phone: Anion gap [Moles/Vol] 13 mmol/L 10 - 20 [place] [address] DO Work Phone: Calcium [Mass/Vol] 8.2 mg/dL below low threshold 8.6 - 10.6 [place] [address] DO Work Phone: Chloride [Moles/Vol] 95 mmol/L below low threshold 98 - 107 [place] [address] DO Work Phone: CO2 [Moles/Vol] 20 mmol/L below low threshold 21 - 32 [place] [address] DO Work Phone: Creatinine [Mass/Vol] 0.73 mg/dL See Below [place] [address] DO Work Phone: Comment on above: Reference Range: 0.5 0 - 1.05 Glucose [Mass/Vol] 88 mg/dL 74 - 99 [facility] 250 DO Work Phone: Phosphate [Mass/Vol] 3.4 mg/dL 2.5 - 4.9 [facility] 250 DO Work Phone: Comment on above: The performance andra acteristics of phosphorus testing in heparinized plasma have been validated by the individual laboratory site where testing is performed. Testing on heparinized plasma is not approved by the FDA; however, such approval is not necessary. Potassium [Moles/Vol] 5.1 mmol/L 3.5 - 5.3 [place] [address] DO Work Phone: Sodium [Moles/Vol] 123 mmol/L below low threshold 136 - 145 [place] [address] DO Work Phone: Urea nitrogen [Mass/Vol] 17 mg/dL 6 - 23 [facility] Jaco Solarsi IPLocks DO Work Phone: Renal Function Panel 83 {mL/min/1.73m2} >90 [facility] [facility] kori lark DO Work Phone: Comment on above: CALCULATIONS OF MOISES MATED GFR ARE PERFORMED USING THE 2020 CKD-EPI STUDY REFIT EQUATION WITHOUT THE RACE VARIABLE FOR THE IDMS-TRACEABLE CREATININE METHODS.https://jasn.asnjournals.org/content/early/A .[id number] Laboratory - Hematology and Cell countson 01-23-2022 Erythrocyte distribution width (RBC) [Ratio] 15.5 % above high threshold See Below [facility] Jaco Solarsi IPLocks DO Work Phone: Comment on above: Reference Range: 11. 5 - 14.5 Hematocrit (Bld) [Volume fraction] 32.9 % below low threshold See Below [facility] Jaco Solarsi kori lark DO Work Phone: Comment on above: Reference Range: 36. 0 - 46.0 Hemoglobin (Bld) [Mass/Vol] 10.6 g/dL below low threshold See Below [facility] Jaco Solarsi IPLocks DO Work Phone: Comment on above: Reference Range: 12. 0 - 16.0 MCHC (RBC) [Mass/Vol] 32.2 g/dL See Below [facility] kori lark DO Work Phone: Comment on above: Reference Range: 32. 0 - 36.0 MCV (RBC) [Entitic vol] 95 fL 80 - 100 [facility] kori lark DO Work Phone: Platelets (Bld) [#/Vol] 420 10*3/uL 150 - 450 [facility] lark DO Work Phone: RBC (Bld) [#/Vol] 3.47 {x10E12/L} below low threshold See Below [facility] [employer]StormApp[employer] kori 250 DO Work Phone: Comment on above: Reference Range: 4.0 0 - 5.20 WBC (Bld) [#/Vol] 11.9 10*3/uL above high threshold 4.4 - 11.3 [facility] ProximexMacarena kori 250 DO Work Phone: Magnesium, Serumon 2 Magnesium [Mass/Vol] 1.95 mg/dL See Below [facility] ProximexGuerita kori 250 DO Work Phone: Comment on above: Reference Range: 1.6 0 - 2.40 No Panel Informationon 01-23 0.0 {/100_WBC} 0.0-0.0 [facility] ProximexGeurita IPLocks DO Work Phone: Renal Function Panelon 01-23 Albumin BCP dye [Mass/Vol] 2.9 g/dL below low threshold 3.4 - 5.0 [facility] ProximexGuerita IPLocks DO Work Phone: Anion gap [Moles/Vol] 14 mmol/L 10 - 20 [facility] CenterBrandMe crowdmarketingGuerita kori lark DO Work Phone: Calcium [Mass/Vol] 8.5 mg/dL below low threshold 8.6 - 10.6 [facility] SystemBrandMe crowdmarketingGuerita IPLocks DO Work Phone: Chloride [Moles/Vol] 96 mmol/L below low threshold 98 - 107 [facility] AnovaStormGuerita kori 250 DO Work Phone: CO2 [Moles/Vol] 20 mmol/L below low threshold 21 - 32 [facility] kori 250 DO Work Phone: Creatinine [Mass/Vol] 0.80 mg/dL See Below [facility] lark DO Work Phone: Comment on above: Reference Range: 0.5 0 - 1.05 Glucose [Mass/Vol] 78 mg/dL 74 - 99 [facility] Wagon 250 DO Work Phone: Phosphate [Mass/Vol] 4.2 mg/dL 2.5 - 4.9 -[facility] Atooma DO Work Phone: Comment on above: The performance andra acteristics of phosphorus testing in heparinized plasma have been validated by the individual laboratory site where testing is performed. Testing on heparinized plasma is not approved by the FDA; however, such approval is not necessary. Potassium [Moles/Vol] 5.4 mmol/L above high threshold 3.5 - 5.3 [facility] IPLocks DO Work Phone: Sodium [Moles/Vol] 125 mmol/L below low threshold 136 - 145 [place] [address] DO Work Phone: Urea nitrogen [Mass/Vol] 15 mg/dL 6 - 23 [place] [address] DO Work Phone: Renal Function Panel 74 {mL/min/1.73m2} >90 [place] [address] DO Work Phone: Comment on above: CALCULATIONS OF MOISES MATED GFR ARE PERFORMED USING THE 2020 CKD-EPI STUDY REFIT EQUATION WITHOUT THE RACE VARIABLE FOR THE IDMS-TRACEABLE CREATININE METHODS.https://jasn.asnjournals.org/content//A SN.2098099976 Coronavirus 2019 RNA by PCR, Screening Asymptomticon 01-22-2022 Coronavirus 2019 RNA by PCR, Screening Asymptomtic Not detected Normal See Below [facility] kori lark DO Work Phone: Comment on above: SOURCE: [...] this test method. Fact sheet for providers: www.fda.gov/media/752929/downloadFact sheet for patients: www.fda.gov/media/923921/downloadThis test has received FDA Emergency Use Authorization (EUA) and has been verified by [facility] ([facility]). This test is only authorized for the duration of time that circumstances exist to justify the authorization of the emergency use of in vitro diagnostic tests for the detection of SARS-CoV-2 virus and/or diagnosis of COVID-19 infection under section 564(b)(1) of the Act, 21 U.S.C. 360bbb-3(b)(1), unless the authorization is terminated or revoked sooner. [facility] is certified under CLIA-88 as qualified to perform high complexity testing. Testing is performed in the [facility] laboratories located at [address] [place] [address]. Laboratory - Hematology and Cell countson 01-22-2022 Erythrocyte distribution width (RBC) [Ratio] 15.2 % above high threshold See Below [facility] Atooma DO Work Phone: Comment on above: Reference Range: 11. 5 - 14.5 Hematocrit (Bld) [Volume fraction] 31.2 % below low threshold See Below [facility] Jaco Solarsi IPLocks DO Work Phone: Comment on above: Reference Range: 36. 0 - 46.0 Hemoglobin (Bld) [Mass/Vol] 10.0 g/dL below low threshold See Below [facility] Atooma DO Work Phone: Comment on above: Reference Range: 12. 0 - 16.0 MCHC (RBC) [Mass/Vol] 32.1 g/dL See Below [facility] Jaco Solarsi IPLocks DO Work Phone: Comment on above: Reference Range: 32. 0 - 36.0 MCV (RBC) [Entitic vol] 94 fL 80 - 100 [facility] SystemBrandMe crowd[facility]etingChi [facility] IPLocks DO Work Phone: Platelets (Bld) [#/Vol] 409 10*3/uL 150 - 450 [facility] SystemBrandMe crowdmarketingNew [facility] lark DO Work Phone: RBC (Bld) [#/Vol] 3.33 {x10E12/L} below low threshold See Below [facility] Wagon 250 DO Work Phone: Comment on above: Reference Range: 4.0 0 - 5.20 WBC (Bld) [#/Vol] 12.4 10*3/uL above high threshold 4.4 - 11.3 [facility] Jaco Solarsi kori 250 DO Work Phone: Magnesium, Serumon 2 Magnesium [Mass/Vol] 1.94 mg/dL See Below [facility] Wagon 250 DO Work Phone: Comment on above: Reference Range: 1.6 0 - 2.40 No Panel Informationon 01-22 0.0 {/100_WBC} 0.0-0.0 [facility] Jaco Solarsi kori 250 DO Work Phone: Renal Function Panelon 01-22 Albumin BCP dye [Mass/Vol] 3.1 g/dL below low threshold 3.4 - 5.0 [facility] Jaco Solarsi kori 250 DO Work Phone: Anion gap [Moles/Vol] 13 mmol/L 10 - 20 [facility] Jaco Solarsi kori 250 DO Work Phone: Calcium [Mass/Vol] 8.7 mg/dL 8.6 - 10.6 [facility] Wagon 250 DO Work Phone: Chloride [Moles/Vol] 97 mmol/L below low threshold 98 - 107 [facility] Wagon 250 DO Work Phone: CO2 [Moles/Vol] 19 mmol/L below low threshold 21 - 32 [facility] Jaco Solarsi kori 250 DO Work Phone: Creatinine [Mass/Vol] 0.81 mg/dL See Below [facility] Jaco Solarsi kori 250 DO Work Phone: Comment on above: Reference Range: 0.5 0 - 1.05 Glucose [Mass/Vol] 90 mg/dL 74 - 99 [facility] kori 250 DO Work Phone: Phosphate [Mass/Vol] 4.3 mg/dL 2.5 - 4.9 [facility]StormChi [facility] kori 250 DO Work Phone: Comment on above: The performance andra acteristics of phosphorus testing in heparinized plasma have been validated by the individual laboratory site where testing is performed. Testing on heparinized plasma is not approved by the FDA; however, such approval is not necessary. Potassium [Moles/Vol] 5.3 mmol/L 3.5 - 5.3 [place] [address] DO Work Phone: Urea nitrogen [Mass/Vol] 15 mg/dL 6 - 23 [place] [address] DO Work Phone: Renal Function Panel 73 {mL/min/1.73m2} >90 [place] [address] DO Work Phone: Comment on above: CALCULATIONS OF MOISES MATED GFR ARE PERFORMED USING THE 2020 CKD-EPI STUDY REFIT EQUATION WITHOUT THE RACE VARIABLE FOR THE IDMS-TRACEABLE CREATININE METHODS.https://jasn.asnjournals.org/content//A SN.[id number] Albumin BCP dye [Mass/Vol] 2.8 g/dL below low threshold 3.4 - 5.0 [place] [address] DO Work Phone: Anion gap [Moles/Vol] 14 mmol/L 10 - 20 [place] [address] DO Work Phone: Calcium [Mass/Vol] 7.9 mg/dL below low threshold 8.6 - 10.6 [place] [address] DO Work Phone: Chloride [Moles/Vol] 96 mmol/L below low threshold 98 - 107 [place] [address] DO Work Phone: CO2 [Moles/Vol] 20 mmol/L below low threshold 21 - 32 [facility] 250 DO Work Phone: Creatinine [Mass/Vol] 0.77 mg/dL See Below [place] [address] DO Work Phone: Comment on above: Reference Range: 0.5 0 - 1.05 Glucose [Mass/Vol] 79 mg/dL 74 - 99 [facility] kori 250 DO Work Phone: Phosphate [Mass/Vol] 3.9 mg/dL 2.5 - 4.9 [facility]St[facility]Chi [facility] kori 250 DO Work Phone: Comment on above: The performance andra acteristics of phosphorus testing in heparinized plasma have been validated by the individual laboratory site where testing is performed. Testing on heparinized plasma is not approved by the FDA; however, such approval is not necessary. Potassium [Moles/Vol] 5.8 mmol/L above high threshold 3.5 - 5.3 [place] [address] DO Work Phone: Sodium [Moles/Vol] 124 mmol/L below low threshold 136 - 145 [place] [address] DO Work Phone: Urea nitrogen [Mass/Vol] 11 mg/dL 6 - 23 [place] [address] DO Work Phone: Renal Function Panel 78 {mL/min/1.73m2} >90 [place] [address] DO Work Phone: Comment on above: CALCULATIONS OF MOISES MATED GFR ARE PERFORMED USING THE 2020 CKD-EPI STUDY REFIT EQUATION WITHOUT THE RACE VARIABLE FOR THE IDMS-TRACEABLE CREATININE METHODS.https://jasn.asnjournals.org/content//A SN.[id number] Laboratory - Hematology and Cell countson 01-21-2022 Erythrocyte distribution width (RBC) [Ratio] 14.8 % above high threshold See Below [place] [address] DO Work Phone: Comment on above: Reference Range: 11. 5 - 14.5 Hematocrit (Bld) [Volume fraction] 33.4 % below low threshold See Below [facility] Jaco Solarsi IPLocks DO Work Phone: Comment on above: Reference Range: 36. 0 - 46.0 Hemoglobin (Bld) [Mass/Vol] 10.8 g/dL below low threshold See Below [facility] Jaco Solarsi kori 250 DO Work Phone: Comment on above: Reference Range: 12. 0 - 16.0 MCHC (RBC) [Mass/Vol] 32.3 g/dL See Below [facility] Jaco Solarsi IPLocks DO Work Phone: Comment on above: Reference Range: 32. 0 - 36.0 MCV (RBC) [Entitic vol] 91 fL 80 - 100 [facility]Chi [facility] IPLocks DO Work Phone: Platelets (Bld) [#/Vol] 393 10*3/uL 150 - 450 [facility] Jaco Solarsi kori lark DO Work Phone: RBC (Bld) [#/Vol] 3.67 {x10E12/L} below low threshold See Below [facility] Jaco Solarsi kori lark DO Work Phone: Comment on above: Reference Range: 4.0 0 - 5.20 WBC (Bld) [#/Vol] 13.1 10*3/uL above high threshold 4.4 - 11.3 [facility] Jaco Solarsi kori lark DO Work Phone: Magnesium, Serumon 2 Magnesium [Mass/Vol] 1.94 mg/dL See Below [facility] Jaco Solarsi kori 250 DO Work Phone: Comment on above: Reference Range: 1.6 0 - 2.40 No Panel Informationon 01-21 0.0 {/100_WBC} 0.0-0.0 [facility] IPLocks DO Work Phone: Renal Function Panelon 01-21 Albumin BCP dye [Mass/Vol] 3.1 g/dL below low threshold 3.4 - 5.0 [facility] kori lark DO Work Phone: Anion gap [Moles/Vol] 14 mmol/L 10 - 20 [place] [address] DO Work Phone: Calcium [Mass/Vol] 8.1 mg/dL below low threshold 8.6 - 10.6 [place] [address] DO Work Phone: Chloride [Moles/Vol] 93 mmol/L below low threshold 98 - 107 [place] [address] DO Work Phone: CO2 [Moles/Vol] 20 mmol/L below low threshold 21 - 32 [place] [address] DO Work Phone: Creatinine [Mass/Vol] 0.70 mg/dL See Below [place] [address] DO Work Phone: Comment on above: Reference Range: 0.5 0 - 1.05 Glucose [Mass/Vol] 117 mg/dL above high threshold 74 - 99 [place] [address] DO Work Phone: Phosphate [Mass/Vol] 2.9 mg/dL 2.5 - 4.9 [facility] lark DO Work Phone: Comment on above: The [...] Potassium [Moles/Vol] 5.1 mmol/L 3.5 - 5.3 [place] [address] DO Work Phone: Comment on above: MILD HEMOLYSIS DETEC ABENA. The result may be falsely elevated due tohemolysis or other interferents. Clinical correlation is recommended.Repeat testing may be considered. Sodium [Moles/Vol] 122 mmol/L below low threshold 136 - 145 [facility] Atooma DO Work Phone: Urea nitrogen [Mass/Vol] 8 mg/dL 6 - 23 [facility] [facility] kori lark DO Work Phone: Renal Function Panel 87 {mL/min/1.73m2} >90 [facility] [facility] kori lark DO Work Phone: Comment on above: CALCULATIONS OF MOISES MATED GFR ARE PERFORMED USING THE 2020 CKD-EPI STUDY REFIT EQUATION WITHOUT THE RACE VARIABLE FOR THE IDMS-TRACEABLE CREATININE METHODS.https://jasn.asnjournals.org/content//A SN.[id number] Laboratory - Hematology and Cell countson 01-20-2022 Erythrocyte distribution width (RBC) [Ratio] 14.2 % See Below [facility] Jaco Solarsi kori lark DO Work Phone: Comment on above: Reference Range: 11. 5 - 14.5 Hematocrit (Bld) [Volume fraction] 30.7 % below low threshold See Below [facility] Jaco Solarsi IPLocks DO Work Phone: Comment on above: Reference Range: 36. 0 - 46.0 Hemoglobin (Bld) [Mass/Vol] 11.1 g/dL below low threshold See Below [facility] Jaco Solarsi IPLocks DO Work Phone: Comment on above: Reference Range: 12. 0 - 16.0 MCHC (RBC) [Mass/Vol] 36.2 g/dL above high threshold See Below [facility] Jaco Solarsi kori lark DO Work Phone: Comment on above: Reference Range: 32. 0 - 36.0 MCV (RBC) [Entitic vol] 84 fL 80 - 100 [facility] [facility] IPLocks DO Work Phone: Platelets (Bld) [#/Vol] 382 10*3/uL 150 - 450 [facility] [facility] kori lark DO Work Phone: RBC (Bld) [#/Vol] 3.65 {x10E12/L} below low threshold See Below [facility] ProximexGuerita kori 250 DO Work Phone: Comment on above: Reference Range: 4.0 0 - 5.20 WBC (Bld) [#/Vol] 14.9 10*3/uL above high threshold 4.4 - 11.3 [facility]BrandMe crowd[facility]etingChi [facility] kori 250 DO Work Phone: Magnesium, Serumon Magnesium [Mass/Vol] 1.77 mg/dL See Below [facility] kori 250 DO Work Phone: Comment on above: Reference Range: 1.6 0 - 2.40 No Panel Informationon 01-20 0.0 {/100_WBC} 0.0-0.0 [facility] 250 DO Work Phone: Radiologyon 01-20-2022 XR Chest 2 Views Normal [place] [address] DO Work Phone: Renal Function Panelon 01-20 Albumin BCP dye [Mass/Vol] 3.1 g/dL below low threshold 3.4 - 5.0 [facility] 250 DO Work Phone: Anion gap [Moles/Vol] 12 mmol/L 10 - 20 [facility] 250 DO Work Phone: Calcium [Mass/Vol] 8.2 mg/dL below low threshold 8.6 - 10.6 [facility] 250 DO Work Phone: Chloride [Moles/Vol] 92 mmol/L below low threshold 98 - 107 [facility] 250 DO Work Phone: CO2 [Moles/Vol] 22 mmol/L 21 - 32 [facility] 250 DO Work Phone: Creatinine [Mass/Vol] 0.71 mg/dL See Below [facility] 250 DO Work Phone: Comment on above: Reference Range: 0.5 0 - 1.05 Glucose [Mass/Vol] 77 mg/dL 74 - 99 [facility] 250 DO Work Phone: Phosphate [Mass/Vol] 3.2 mg/dL 2.5 - 4.9 [facility] 250 DO Work Phone: Comment on above: The performance andra acteristics of phosphorus testing in heparinized plasma have been validated by the individual laboratory site where testing is performed. Testing on heparinized plasma is not approved by the FDA; however, such approval is not necessary. Potassium [Moles/Vol] 4.4 mmol/L 3.5 - 5.3 [place] [address] DO Work Phone: Sodium [Moles/Vol] 122 mmol/L below low threshold 136 - 145 [place] [address] DO Work Phone: Urea nitrogen [Mass/Vol] 9 mg/dL 6 - 23 [place] [address] DO Work Phone: Renal Function Panel 86 {mL/min/1.73m2} >90 [place] [address] DO Work Phone: Comment on above: CALCULATIONS OF MOISES MATED GFR ARE PERFORMED USING THE 2020 CKD-EPI STUDY REFIT EQUATION WITHOUT THE RACE VARIABLE FOR THE IDMS-TRACEABLE CREATININE METHODS.https://jasn.asnjournals.org/content//A SN.6795467362 Albumin BCP dye [Mass/Vol] 3.1 g/dL below low threshold 3.4 - 5.0 [place] [address] DO Work Phone: Anion gap [Moles/Vol] 16 mmol/L 10 - 20 [place] [address] DO Work Phone: Calcium [Mass/Vol] 8.1 mg/dL below low threshold 8.6 - 10.6 [facility] 250 DO Work Phone: Chloride [Moles/Vol] 91 mmol/L below low threshold 98 - 107 [facility] 250 DO Work Phone: CO2 [Moles/Vol] 19 mmol/L below low threshold 21 - 32 [place] [address] DO Work Phone: Creatinine [Mass/Vol] 0.64 mg/dL See Below [place] [address] DO Work Phone: Comment on above: Reference Range: 0.5 0 - 1.05 Glucose [Mass/Vol] 72 mg/dL below low threshold 74 - 99 [place] [address] DO Work Phone: Phosphate [Mass/Vol] 3.6 mg/dL 2.5 - 4.9 [facility] lark DO Work Phone: Comment on above: The performance andra acteristics of phosphorus testing in heparinized plasma have been validated by the individual laboratory site where testing is performed. Testing on heparinized plasma is not approved by the FDA; however, such approval is not necessary. Potassium [Moles/Vol] 4.9 mmol/L 3.5 - 5.3 [place] [address] DO Work Phone: Sodium [Moles/Vol] 121 mmol/L below low threshold 136 - 145 [place] [address] DO Work Phone: Urea nitrogen [Mass/Vol] 8 mg/dL 6 - 23 [place] [address] DO Work Phone: Renal Function Panel 89 {mL/min/1.73m2} >90 [place] [address] DO Work Phone: Comment on above: CALCULATIONS OF MOISES MATED GFR ARE PERFORMED USING THE 2020 CKD-EPI STUDY REFIT EQUATION WITHOUT THE RACE VARIABLE FOR THE IDMS-TRACEABLE CREATININE METHODS.https://jasn.asnjournals.org/content/early/A SN.5428901343 Amylase, Body Fluidon 2021 Amylase (Body fld) [Catalytic activity/Vol] 10 U/L [facility] kori 250 DO Work Phone: [phone] Comment on above: SOURCE: Pleural flui d (thoracentesis fld)REF VALUENOT ESTABLISHEDThe performance characteristics of this test have beenvalidated by the [facility] laboratory. This test has not been approved by the FDA; however, such approval is not necessary. Cell Count + Differential, B heather Fluidon 01-19-2022 WBC (Bld) [#/Vol] 0.614 10*3/uL MP-N [facility] HeartBrandMe crowdmarketingChi [facility] kori 250 DO Work Phone: [phone] Cell Count + Differential, Body Fluid 100 1 [facility] kori 250 DO Work Phone: [phone] Cell Count + Differential, Body Fluid 1 % [facility] kori 250 DO Work Phone: Cell Count + Differential, Body Fluid 47 % [facility] kori 250 DO Work Phone: Cell Count + Differential, Body Fluid 16 % [facility] 250 DO Work Phone: Cell Count + Differential, Body Fluid 36 % [facility]Chi [facility] kori 250 DO Work Phone: [phone] Cell Count + Differential, Body Fluid [id number] /uL [facility] kori 250 DO Work Phone: Cell Count, Fluidon 01-20-20 22 WBC (Bld) [#/Vol] 0.605 10*3/uL MP[facility]N [facility]ori 250 DO Work Phone: Cell Count, Fluid 799046 /uL [facility] DO Work Phone: Cell Count, Fluid Cloudy CLEAR MP[facility] kori 250 DO Work Phone: [phone] Cell Count, Fluid Red YELLOW MP-Nort [place] [address] DO Work Phone: Comment on above: SOURCE: Pleural flui d (thoracentesis fld) Cult, AFB, Misc.+ smearon Mycobacterium sp identified Org specific cx Nom (Unsp spec) [place] [address] DO Work Phone: Cult, Body Fluid, + smearon 01-19-2022 Bacteria identified Cx Nom (Body fld) [place] [address] DO Work Phone: Cult, Fungus +smearon 2021 Fungus identified Cx Nom (Unsp spec) [place] [address] DO Work Phone: Cult, Urineon 01-19-2022 Bacteria identified Cx Nom (U) Abnormal [place] [address] DO Work Phone: Glucose, Fluidon 01-19-2022 Glucose (Body fld) [Mass/Vol] 134 mg/dL [place] [address] DO Work Phone: Comment on above: SOURCE: Pleural flui d (thoracentesis fld)REF VALUENOT ESTABLISHEDThe performance characteristics of this test have beenvalidated by the [facility] laboratory. This test has not been approved by the FDA; however, such approval is not necessary. Laboratory - Chemistry and C hemistry - challengeon 01-19-2022 Creatinine (U) [Mass/Vol] 49.0 mg/dL See Below [place] [address] DO Work Phone: Comment on above: Reference Range: 20. 0 - 320.0 Osmolality (U) [Osmolality] 250 mosm/kg 200 - 1200 [place] [address] DO Work Phone: Potassium (U) [Moles/Vol] 27 mmol/L See Below [place] [address] DO Work Phone: Comment on above: Reference Range: Not Established Potassium/Creatinine (U) [Molar ratio] 55 {mmol/g_Creat} See Below [facility] DO Work Phone: Comment on above: Reference Range: Not Established Sodium (U) [Moles/Vol] 41 mmol/L See Below [place] [address] DO Work Phone: Comment on above: Reference Range: Not Established Sodium/Creatinine (U) [Ratio] 84 {mmol/g_Creat} See Below [place] [address] DO Work Phone: Comment on above: Reference Range: Not Established Urea nitrogen (U) [Mass/Vol] 250 mg/dL See Below [place] [address] DO Work Phone: Comment on above: Reference Range: Not Established Urea/Creatinine (U) [Molar ratio] 5.1 {g/g_Creat} See Below [place] [address] DO Work Phone: Comment on above: Reference Range: Not Established Laboratory - Hematology and Cell countson 01-19-2022 Erythrocyte distribution width (RBC) [Ratio] 14.6 % above high threshold See Below [place] [address] DO Work Phone: Comment on above: Reference Range: 11. 5 - 14.5 Hematocrit (Bld) [Volume fraction] 34.4 % below low threshold See Below [place] [address] DO Work Phone: Comment on above: Reference Range: 36. 0 - 46.0 Hemoglobin (Bld) [Mass/Vol] 11.6 g/dL below low threshold See Below [place] [address] DO Work Phone: Comment on above: Reference Range: 12. 0 - 16.0 MCHC (RBC) [Mass/Vol] 33.7 g/dL See Below [place] [address] DO Work Phone: Comment on above: Reference Range: 32. 0 - 36.0 MCV (RBC) [Entitic vol] 89 fL 80 - 100 [facility] 250 DO Work Phone: Platelets (Bld) [#/Vol] 392 10*3/uL 150 - 450 [facility] 250 DO Work Phone: [phone] RBC (Bld) [#/Vol] 3.85 {x10E12/L} below low threshold See Below [place] [address] DO Work Phone: Comment on above: Reference Range: 4.0 0 - 5.20 WBC (Bld) [#/Vol] 19.0 10*3/uL above high threshold 4.4 - 11.3 [place] [address] DO Work Phone: Magnesium, Serumon 2 Magnesium [Mass/Vol] 1.74 mg/dL See Below [facility] 250 DO Work Phone: Comment on above: Reference Range: 1.6 0 - 2.40 No Panel Informationon 01-19 84 {mmol/g_Creat} 38 - 318 [facility] 250 DO Work Phone: 41 mmol/L See Below [place] [address] DO Work Phone: Comment on above: Reference Range: Not Established Normal [place] [address] DO Work Phone: 230 U/L [place] [address] DO Work Phone: Comment on above: SOURCE: Pleural flui d (thoracentesis fld)REF VALUENOT ESTABLISHEDThe performance characteristics of this test have beenvalidated by the [facility] laboratory. This test has not been approved by the FDA; however, such approval is not necessary. 0.0 {/100_WBC} 0.0-0.0 [facility] Jhonny DO Work Phone: Osmolality, Serumon 01-20-20 22 Osmolality [Osmolality] 252 {mOsm/kg_H2O} below low threshold 280 - 300 [facility]is[facility] DO Work Phone: Radiologyon 01-19-2022 XR Chest Single view Normal [facility] kori 250 DO Work Phone: Renal Function Panelon 01-19 Albumin BCP dye [Mass/Vol] 3.3 g/dL below low threshold 3.4 - 5.0 [place] [address] DO Work Phone: Anion gap [Moles/Vol] 14 mmol/L 10 - 20 [place] [address] DO Work Phone: Calcium [Mass/Vol] 7.5 mg/dL below low threshold 8.6 - 10.6 [place] [address] DO Work Phone: Chloride [Moles/Vol] 88 mmol/L below low threshold 98 - 107 [place] [address] DO Work Phone: CO2 [Moles/Vol] 23 mmol/L 21 - 32 [place] [address] DO Work Phone: Creatinine [Mass/Vol] 0.58 mg/dL See Below [facility] 250 DO Work Phone: Comment on above: Reference Range: 0.5 0 - 1.05 Glucose [Mass/Vol] 82 mg/dL 74 - 99 [facility] kori 250 DO Work Phone: Phosphate [Mass/Vol] 3.0 mg/dL 2.5 - 4.9 [facility] 250 DO Work Phone: Comment on above: The performance andra acteristics of phosphorus testing in heparinized plasma have been validated by the individual laboratory site where testing is performed. Testing on heparinized plasma is not approved by the FDA; however, such approval is not necessary. Potassium [Moles/Vol] 4.4 mmol/L 3.5 - 5.3 [facility] kori lark DO Work Phone: Sodium [Moles/Vol] 121 mmol/L below low threshold 136 - 145 [place] [address] DO Work Phone: Urea nitrogen [Mass/Vol] 8 mg/dL 6 - 23 [place] [address] DO Work Phone: Renal Function Panel >90 >90 [place] [address] DO Work Phone: Comment on above: CALCULATIONS OF MOISES MATED GFR ARE PERFORMED USING THE 2020 CKD-EPI STUDY REFIT EQUATION WITHOUT THE RACE VARIABLE FOR THE IDMS-TRACEABLE CREATININE METHODS.https://jasn.asnjournals.org/content///A SN.1561729230 Albumin BCP dye [Mass/Vol] 3.1 g/dL below low threshold 3.4 - 5.0 [place] [address] DO Work Phone: Anion gap [Moles/Vol] 16 mmol/L 10 - 20 [place] [address] DO Work Phone: Calcium [Mass/Vol] 7.9 mg/dL below low threshold 8.6 - 10.6 [place] [address] DO Work Phone: Chloride [Moles/Vol] 91 mmol/L below low threshold 98 - 107 [place] [address] DO Work Phone: CO2 [Moles/Vol] 19 mmol/L below low threshold 21 - 32 [place] [address] DO Work Phone: Creatinine [Mass/Vol] 0.58 mg/dL See Below [place] [address] DO Work Phone: Comment on above: Reference Range: 0.5 0 - 1.05 Glucose [Mass/Vol] 125 mg/dL above high threshold 74 - 99 [facility] 250 DO Work Phone: Phosphate [Mass/Vol] 3.0 mg/dL 2.5 - 4.9 [facility] Jaco Solarsi IPLocks DO Work Phone: Comment on above: The performance andra acteristics of phosphorus testing in heparinized plasma have been validated by the individual laboratory site where testing is performed. Testing on heparinized plasma is not approved by the FDA; however, such approval is not necessary. Potassium [Moles/Vol] 4.6 mmol/L 3.5 - 5.3 [facility] kori lark DO Work Phone: Sodium [Moles/Vol] 121 mmol/L below low threshold 136 - 145 [place] [address] DO Work Phone: Urea nitrogen [Mass/Vol] 9 mg/dL 6 - 23 [place] [address] DO Work Phone: Renal Function Panel >90 >90 [place] [address] DO Work Phone: Comment on above: CALCULATIONS OF MOISES MATED GFR ARE PERFORMED USING THE 2020 CKD-EPI STUDY REFIT EQUATION WITHOUT THE RACE VARIABLE FOR THE IDMS-TRACEABLE CREATININE METHODS.https://jasn.asnjournals.org/content//A SN.[id number] Total Protein, Body Fluidon 01-19-2022 Protein (Body fld) [Mass/Vol] 2.7 g/dL [place] [address] DO Work Phone: Comment on above: SOURCE: Pleural flui d (thoracentesis fld)REF VALUENOT ESTABLISHEDThe performance characteristics of this test have beenvalidated by the [facility] laboratory. This test has not been approved by the FDA; however, such approval is not necessary. URINALYSIS WITH CULTURE IF I NDICATEDon 01-19-2022 Protein (U) [Mass/Vol] 100 (2+) Abnormal NEGATIVE [facility] korisouthern [facility] DO Work Phone: Specific gravity (U) [Rel density] 1.011 1 See Below [facility] kori lark DO Work Phone: Comment on above: Reference Range: 1.0 05 - 1.035 Uric Acid, Serumon Urate [Mass/Vol] 4.2 mg/dL 2.3 - 6.7 [facility] Atooma DO Work Phone: Comment on above: Venipuncture immedia tely after or during the administration of Metamizole may lead to falsely low results. Testing should be performed immediately prior to Metamizole dosing. Urinalysison 01-19-2022 Color (U) YELLOW See Below [facility] Atooma DO Work Phone: Comment on above: Reference Range: STR AW,YELLOW Glucose Ql (U) Negative NEGATIVE [facility] Atooma DO Work Phone: Ketones Ql (U) Negative NEGATIVE [facility] Atooma DO Work Phone: Leukocyte esterase Test strip Ql (U) LARGE (3+) Abnormal NEGATIVE [facility] Atooma DO Work Phone: pH (U) 7.0 [pH] 5.0 - 8.0 [facility] Atooma DO Work Phone: Protein (U) [Mass/Vol] 30 (1+) Abnormal NEGATIVE [facility] Atooma DO Work Phone: RBC (U) [#/Vol] LARGE (3+) Abnormal NEGATIVE [facility] [employer] 250 DO Work Phone: Specific gravity (U) [Rel density] 1.010 1 See Below [facility] Ato[place] DO Work Phone: Comment on above: Reference Range: 1.0 05 - 1.035 Urinalysis Negative NEGATIVE [facility] Atooma DO Work Phone: Urinalysis <2.0 0.0 - 1.9 [facility] Atooma DO Work Phone: Urinalysis HAZY CLEAR [facility] 250 DO Work Phone: [phone] Urinalysis, Microscopicon Urinalysis, Microscopic <1 [facility] 250 DO Work Phone: Urinalysis, Microscopic >182 Abnormal 0-5 [place] [address] DO Work Phone: [phone] Urinalysis, Microscopic RARE [facility] 250 DO Work Phone: Urinalysis, Microscopic 1+ [facility] 250 DO Work Phone: [phone] Urinalysis, Microscopic 396 {/HPF} Abnormal 0-5 [facility] 250 DO Work Phone: Urinalysis, Microscopic 658 {/HPF} Abnormal 0-5 [place] [address] DO Work Phone: Laboratory - Hematology and Cell countson 01-18-2022 Erythrocyte distribution width (RBC) [Ratio] 14.5 % See Below [place] [address] DO Work Phone: Comment on above: Reference Range: 11. 5 - 14.5 Hematocrit (Bld) [Volume fraction] 35.0 % below low threshold See Below [place] [address] DO Work Phone: Comment on above: Reference Range: 36. 0 - 46.0 Hemoglobin (Bld) [Mass/Vol] 11.7 g/dL below low threshold See Below [place] [address] DO Work Phone: Comment on above: Reference Range: 12. 0 - 16.0 MCHC (RBC) [Mass/Vol] 33.4 g/dL See Below [place] [address] DO Work Phone: Comment on above: Reference Range: 32. 0 - 36.0 MCV (RBC) [Entitic vol] 90 fL 80 - 100 [facility] 250 DO Work Phone: Platelets (Bld) [#/Vol] 390 10*3/uL 150 - 450 [facility] crowd[facility]Chi [facility] kori 250 DO Work Phone: RBC (Bld) [#/Vol] 3.90 {x10E12/L} below low threshold See Below [facility] SystemBrandMe crowdmarketingNew [facility] 250 DO Work Phone: Comment on above: Reference Range: 4.0 0 - 5.20 WBC (Bld) [#/Vol] 14.4 10*3/uL above high threshold 4.4 - 11.3 [facility] SystemBrandMe crowd[facility]Chi [facility] kori 250 DO Work Phone: Magnesium, Serumon 2 Magnesium [Mass/Vol] 1.82 mg/dL See Below [facility] 250 DO Work Phone: Comment on above: Reference Range: 1.6 0 - 2.40 No Panel Informationon 01-18 0.0 {/100_WBC} 0.0-0.0 [facility] SystemBrandMe crowdmarketingNew [facility] 250 DO Work Phone: Radiologyon 01-18-2022 XR Chest Single view Normal [facility] 250 DO Work Phone: Renal Function Panelon 01-18 Albumin BCP dye [Mass/Vol] 3.3 g/dL below low threshold 3.4 - 5.0 [facility] 250 DO Work Phone: Anion gap [Moles/Vol] 14 mmol/L 10 - 20 [facility] 250 DO Work Phone: Calcium [Mass/Vol] 8.2 mg/dL below low threshold 8.6 - 10.6 [facility] 250 DO Work Phone: Chloride [Moles/Vol] 91 mmol/L below low threshold 98 - 107 [facility] 250 DO Work Phone: CO2 [Moles/Vol] 23 mmol/L 21 - 32 [place] [address] DO Work Phone: Creatinine [Mass/Vol] 0.73 mg/dL See Below [place] [address] DO Work Phone: Comment on above: Reference Range: 0.5 0 - 1.05 Glucose [Mass/Vol] 90 mg/dL 74 - 99 [facility] 250 DO Work Phone: Phosphate [Mass/Vol] 3.3 mg/dL 2.5 - 4.9 [facility] lark DO Work Phone: Comment on above: The performance andra acteristics of phosphorus testing in heparinized plasma have been validated by the individual laboratory site where testing is performed. Testing on heparinized plasma is not approved by the FDA; however, such approval is not necessary. Potassium [Moles/Vol] 4.1 mmol/L 3.5 - 5.3 [place] [address] DO Work Phone: Sodium [Moles/Vol] 124 mmol/L below low threshold 136 - 145 [place] [address] DO Work Phone: Urea nitrogen [Mass/Vol] 10 mg/dL 6 - 23 [place] [address] DO Work Phone: Renal Function Panel 83 {mL/min/1.73m2} >90 [place] [address] DO Work Phone: Comment on above: CALCULATIONS OF MOISES MATED GFR ARE PERFORMED USING THE 2020 CKD-EPI STUDY REFIT EQUATION WITHOUT THE RACE VARIABLE FOR THE IDMS-TRACEABLE CREATININE METHODS.https://jasn.asnjournals.org/content//A .[email or web address] Laboratory - Hematology and Cell countson 01-17-2022 Erythrocyte distribution width (RBC) [Ratio] 14.4 % See Below [place] [address] DO Work Phone: Comment on above: Reference Range: 11. 5 - 14.5 Hematocrit (Bld) [Volume fraction] 33.4 % below low threshold See Below [place] [facility] Jaco Solarsi IPLocks DO Work Phone: Comment on above: Reference Range: 36. 0 - 46.0 Hemoglobin (Bld) [Mass/Vol] 11.2 g/dL below low threshold See Below [facility] Jaco Solarsi IPLocks DO Work Phone: Comment on above: Reference Range: 12. 0 - 16.0 MCHC (RBC) [Mass/Vol] 33.5 g/dL See Below [facility] Jaco Solarsi IPLocks DO Work Phone: Comment on above: Reference Range: 32. 0 - 36.0 MCV (RBC) [Entitic vol] 90 fL 80 - 100 [facility]BrandMe [facility]etingChi [facility] kori lark DO Work Phone: Platelets (Bld) [#/Vol] 325 10*3/uL 150 - 450 [facility] Jaco Solarsi kori lark DO Work Phone: RBC (Bld) [#/Vol] 3.73 {x10E12/L} below low threshold See Below [facility] Jaco Solarsi kori lark DO Work Phone: Comment on above: Reference Range: 4.0 0 - 5.20 WBC (Bld) [#/Vol] 13.2 10*3/uL above high threshold 4.4 - 11.3 [facility] Jaco Solarsi IPLocks DO Work Phone: Magnesium, Serumon 2 Magnesium [Mass/Vol] 1.83 mg/dL See Below [facility] Jaco Solarsi IPLocks DO Work Phone: Comment on above: Reference Range: 1.6 0 - 2.40 No Panel Informationon 01-17 0.0 {/100_WBC} 0.0-0.0 [facility] [address] [facility] IPLocks DO Work Phone: Renal Function Panelon 01-17 Albumin BCP dye [Mass/Vol] 2.8 g/dL below low threshold 3.4 - 5.0 [facility] kori 250 DO Work Phone: Anion gap [Moles/Vol] 14 mmol/L 10 - 20 [place] [address] DO Work Phone: Calcium [Mass/Vol] 8.1 mg/dL below low threshold 8.6 - 10.6 [place] [address] DO Work Phone: Chloride [Moles/Vol] 96 mmol/L below low threshold 98 - 107 [place] [address] DO Work Phone: CO2 [Moles/Vol] 21 mmol/L 21 - 32 [place] [address] DO Work Phone: Creatinine [Mass/Vol] 0.64 mg/dL See Below [place] [address] DO Work Phone: Comment on above: Reference Range: 0.5 0 - 1.05 Glucose [Mass/Vol] 79 mg/dL 74 - 99 [facility] 250 DO Work Phone: Phosphate [Mass/Vol] 3.5 mg/dL 2.5 - 4.9 [place] [address] DO Work Phone: Comment on above: The performance andra acteristics of phosphorus testing in heparinized plasma have been validated by the individual laboratory site where testing is performed. Testing on heparinized plasma is not approved by the FDA; however, such approval is not necessary. Potassium [Moles/Vol] 4.3 mmol/L 3.5 - 5.3 [facility] lark DO Work Phone: Sodium [Moles/Vol] 127 mmol/L below low threshold 136 - 145 [place] [address] DO Work Phone: Urea nitrogen [Mass/Vol] 11 mg/dL 6 - 23 [place] [address] DO Work Phone: Renal Function Panel 89 {mL/min/1.73m2} >90 [facility] [place] DO Work Phone: Comment on above: CALCULATIONS OF MOISES MATED GFR ARE PERFORMED USING THE 2020 CKD-EPI STUDY REFIT EQUATION WITHOUT THE RACE VARIABLE FOR THE IDMS-TRACEABLE CREATININE METHODS.https://jasn.asnjournals.org/content//A .[email or web address] Laboratory - Hematology and Cell countson 01-16-2022 Erythrocyte distribution width (RBC) [Ratio] 14.6 % above high threshold See Below [facility] [place] DO Work Phone: Comment on above: Reference Range: 11. 5 - 14.5 Hematocrit (Bld) [Volume fraction] 33.9 % below low threshold See Below [facility] [place] DO Work Phone: Comment on above: Reference Range: 36. 0 - 46.0 Hemoglobin (Bld) [Mass/Vol] 11.7 g/dL below low threshold See Below [facility] [place] DO Work Phone: Comment on above: Reference Range: 12. 0 - 16.0 MCHC (RBC) [Mass/Vol] 34.5 g/dL See Below [facility] Atooma DO Work Phone: Comment on above: Reference Range: 32. 0 - 36.0 MCV (RBC) [Entitic vol] 89 fL 80 - 100 [facility] Atooma DO Work Phone: Platelets (Bld) [#/Vol] 285 10*3/uL 150 - 450 [facility] Atooma DO Work Phone: RBC (Bld) [#/Vol] 3.80 {x10E12/L} below low threshold See Below [facility] [place] DO Work Phone: Comment on above: Reference Range: 4.0 0 - 5.20 WBC (Bld) [#/Vol] 12.4 10*3/uL above high threshold 4.4 - 11.3 [facility] ProximexMacarena kori 250 DO Work Phone: Magnesium, Serumon 2 Magnesium [Mass/Vol] 1.85 mg/dL See Below [facility] Jaco Solarsiasa kori 250 DO Work Phone: Comment on above: Reference Range: 1.6 0 - 2.40 No Panel Informationon 01-16 0.0 {/100_WBC} 0.0-0.0 [facility] ProximexGuerita kori 250 DO Work Phone: Renal Function Panelon 01-16 Albumin BCP dye [Mass/Vol] 2.9 g/dL below low threshold 3.4 - 5.0 [facility] ProximexGuerita kori [facility] DO Work Phone: Anion gap [Moles/Vol] 14 mmol/L 10 - 20 [facility] CenterBrandMe crowdmarketingGuerita kori 250 DO Work Phone: Calcium [Mass/Vol] 8.3 mg/dL below low threshold 8.6 - 10.6 [facility] ProximexGuerita kori 250 DO Work Phone: Chloride [Moles/Vol] 97 mmol/L below low threshold 98 - 107 [facility] ProximexGuerita [facility] DO Work Phone: CO2 [Moles/Vol] 23 mmol/L 21 - 32 [facility] SystemBrandMe crowdmarketingGuerita kori 250 DO Work Phone: Creatinine [Mass/Vol] 0.53 mg/dL See Below [facility] ProximexGuerita kori 250 DO Work Phone: Comment on above: Reference Range: 0.5 0 - 1.05 Glucose [Mass/Vol] 81 mg/dL 74 - 99 [facility] Wagon 250 DO Work Phone: Phosphate [Mass/Vol] 2.8 mg/dL 2.5 - 4.9 [facility] Wagon 250 DO Work Phone: Comment on above: The performance andra acteristics of phosphorus testing in heparinized plasma have been validated by the individual laboratory site where testing is performed. Testing on heparinized plasma is not approved by the FDA; however, such approval is not necessary. Potassium [Moles/Vol] 4.8 mmol/L 3.5 - 5.3 [place] [address] DO Work Phone: Sodium [Moles/Vol] 129 mmol/L below low threshold 136 - 145 [place] [address] DO Work Phone: Urea nitrogen [Mass/Vol] 13 mg/dL 6 - 23 [place] [address] DO Work Phone: Renal Function Panel >90 >90 [place] [address] DO Work Phone: Comment on above: CALCULATIONS OF MOISES MATED GFR ARE PERFORMED USING THE 2020 CKD-EPI STUDY REFIT EQUATION WITHOUT THE RACE VARIABLE FOR THE IDMS-TRACEABLE CREATININE METHODS.https://jasn.asnjournals.org/content/early//A SN.3955857702 Laboratory - Chemistry and C hemistry - challengeon 01-15-2022 Glucose [Mass/Vol] 128 mg/dL above high threshold 74 - 99 [place] [address] DO Work Phone: Glucose [Mass/Vol] 141 mg/dL above high threshold 74 - 99 [facility] 250 DO Work Phone: Glucose [Mass/Vol] 75 mg/dL 74 - 99 [facility] 250 DO Work Phone: Glucose [Mass/Vol] 83 mg/dL 74 - 99 [facility] 250 DO Work Phone: Laboratory - Hematology and Cell countson 01-15-2022 Erythrocyte distribution width (RBC) [Ratio] 14.7 % above high threshold See Below [place] [address] DO Work Phone: Comment on above: Reference Range: 11. 5 - 14.5 Hematocrit (Bld) [Volume fraction] 31.5 % below low threshold See Below [facility] ProximexGuerita kori 250 DO Work Phone: Comment on above: Reference Range: 36. 0 - 46.0 Hemoglobin (Bld) [Mass/Vol] 10.6 g/dL below low threshold See Below [facility] kori 250 DO Work Phone: Comment on above: Reference Range: 12. 0 - 16.0 MCHC (RBC) [Mass/Vol] 33.7 g/dL See Below [place] [address] DO Work Phone: Comment on above: Reference Range: 32. 0 - 36.0 MCV (RBC) [Entitic vol] 89 fL 80 - 100 [place] [address] DO Work Phone: Platelets (Bld) [#/Vol] 234 10*3/uL 150 - 450 [facility] lark DO Work Phone: RBC (Bld) [#/Vol] 3.52 {x10E12/L} below low threshold See Below [facility] Jhonny DO Work Phone: Comment on above: Reference Range: 4.0 0 - 5.20 WBC (Bld) [#/Vol] 12.6 10*3/uL above high threshold 4.4 - 11.3 [facility] kori lark DO Work Phone: Magnesium, Serumon Magnesium [Mass/Vol] 1.96 mg/dL See Below [facility] kori 250 DO Work Phone: Comment on above: Reference Range: 1.6 0 - 2.40 No Panel Informationon 01-15 0.0 {/100_WBC} 0.0-0.0 [facility] kori lark DO Work Phone: Radiologyon 01-15-2022 XR Chest 2 Views Normal [place] [address] DO Work Phone: Renal Function Panelon 01-15 Albumin BCP dye [Mass/Vol] 2.9 g/dL below low threshold 3.4 - 5.0 [place] [address] DO Work Phone: Anion gap [Moles/Vol] 13 mmol/L 10 - 20 [place] [address] DO Work Phone: Calcium [Mass/Vol] 8.1 mg/dL below low threshold 8.6 - 10.6 [place] [address] DO Work Phone: Chloride [Moles/Vol] 100 mmol/L 98 - 107 [place] [address] DO Work Phone: CO2 [Moles/Vol] 22 mmol/L 21 - 32 [place] [address] DO Work Phone: Creatinine [Mass/Vol] 0.67 mg/dL See Below [place] [address] DO Work Phone: Comment on above: Reference Range: 0.5 0 - 1.05 Glucose [Mass/Vol] 74 mg/dL 74 - 99 [place] [address] DO Work Phone: Phosphate [Mass/Vol] 2.8 mg/dL 2.5 - 4.9 [place] [address] DO Work Phone: Comment on above: The performance andra acteristics of phosphorus testing in heparinized plasma have been validated by the individual laboratory site where testing is performed. Testing on heparinized plasma is not approved by the FDA; however, such approval is not necessary. Potassium [Moles/Vol] 4.1 mmol/L 3.5 - 5.3 [place] [address] DO Work Phone: Sodium [Moles/Vol] 131 mmol/L below low threshold 136 - 145 [place] [address] DO Work Phone: Urea nitrogen [Mass/Vol] 15 mg/dL 6 - 23 [facility] Work Phone: Renal Function Panel 88 {mL/min/1.73m2} >90 [facility] DO Work Phone: Comment on above: CALCULATIONS OF MOISES MATED GFR ARE PERFORMED USING THE 2020 CKD-EPI STUDY REFIT EQUATION WITHOUT THE RACE VARIABLE FOR THE IDMS-TRACEABLE CREATININE METHODS.https://jasn.asnjournals.org/content/early//A SN.1240270120 URINALYSIS WITH CULTURE IF I NDICATEDon 01-15-2022 Color (U) YELLOW See Below [facility] DO Work Phone: Comment on above: Reference Range: STR AW,YELLOW Glucose Ql (U) Negative NEGATIVE [facility] crowdmarketingPe[facility] DO Work Phone: Ketones Ql (U) 5 (TRACE) Abnormal NEGATIVE [facility] DO Work Phone: Leukocyte esterase Test strip Ql (U) Negative NEGATIVE [facility] DO Work Phone: pH (U) 7.0 [pH] 5.0 - 8.0 [facility] DO Work Phone: Protein (U) [Mass/Vol] Negative NEGATIVE [facility] DO Work Phone: RBC (U) [#/Vol] SMALL (1+) Abnormal NEGATIVE [facility] [place] DO Work Phone: Specific gravity (U) [Rel density] 1.011 1 See Below [employer] [place] DO Work Phone: Comment on above: Reference Range: 1.0 05 - 1.035 URINALYSIS WITH CULTURE IF INDICATED Negative NEGATIVE ZiebelCambridge CureVac DO Work Phone: URINALYSIS WITH CULTURE IF INDICATED <2.0 0.0 - 1.9 [place] [address] DO Work Phone: URINALYSIS WITH CULTURE IF INDICATED CLEAR CLEAR [place] [address] DO Work Phone: Urinalysis, Microscopicon Urinalysis, Microscopic <1 0-5 [place] [address] DO Work Phone: Urinalysis, Microscopic 18 {/HPF} Abnormal 0-5 [place] [address] DO Work Phone: Calcium, Ionized Levelon Calcium, Ionized Level 1.12 mmol/L See Below M [place] [address] DO Work Phone: Comment on above: Reference Range: 1.1 0 - 1.33 The performance characteristics of ionized calcium tested in heparinized plasma or serum have been validated by the individual laboratory site where testing is performed. Testing on heparinized plasma or serum is not approved by the FDA; however, such approval is not necessary. Calcium, Ionized Level 1.13 mmol/L See Below M [place] [address] DO Work Phone: Comment on above: Reference [...] Glucose [Mass/Vol] 88 mg/dL 74 - 99 [facility] 250 DO Work Phone: Glucose [Mass/Vol] 105 mg/dL above high threshold 74 - 99 [place] [address] DO Work Phone: Glucose [Mass/Vol] 96 mg/dL 74 - 99 [facility] 250 DO Work Phone: Glucose [Mass/Vol] 83 mg/dL 74 - 99 [facility] ProximexMacarena kori 250 DO Work Phone: Glucose [Mass/Vol] 85 mg/dL 74 - 99 [facility] ProximexGuerita kori 250 DO Work Phone: Laboratory - Hematology and Cell countson 01-14-2022 Erythrocyte distribution width (RBC) [Ratio] 14.6 % above high threshold See Below [facility] Jaco Solarsiasa IPLocks DO Work Phone: Comment on above: Reference Range: 11. 5 - 14.5 Hematocrit (Bld) [Volume fraction] 28.8 % below low threshold See Below [facility] Jaco Solarsi IPLocks DO Work Phone: Comment on above: Reference Range: 36. 0 - 46.0 Hemoglobin (Bld) [Mass/Vol] 9.8 g/dL below low threshold See Below [facility] Jaco Solarsi IPLocks DO Work Phone: Comment on above: Reference Range: 12. 0 - 16.0 MCHC (RBC) [Mass/Vol] 34.0 g/dL See Below [facility] Jaco Solarsi IPLocks DO Work Phone: Comment on above: Reference Range: 32. 0 - 36.0 MCV (RBC) [Entitic vol] 88 fL 80 - 100 [facility] [facility] IPLocks DO Work Phone: Platelets (Bld) [#/Vol] 209 10*3/uL 150 - 450 [facility] AnovaStormGuerita kori lark DO Work Phone: RBC (Bld) [#/Vol] 3.26 {x10E12/L} below low threshold See Below [facility] Jaco Solarsi IPLocks DO Work Phone: Comment on above: Reference Range: 4.0 0 - 5.20 WBC (Bld) [#/Vol] 13.8 10*3/uL above high threshold 4.4 - 11.3 [facility] Jaco Solarsi IPLocks DO Work Phone: Erythrocyte distribution width (RBC) [Ratio] 14.6 % above high threshold See Below [facility] Wagon 250 DO Work Phone: Comment on above: Reference Range: 11. 5 - 14.5 Hematocrit (Bld) [Volume fraction] 30.4 % below low threshold See Below [facility] Jaco Solarsi kori 250 DO Work Phone: Comment on above: Reference Range: 36. 0 - 46.0 Hemoglobin (Bld) [Mass/Vol] 10.7 g/dL below low threshold See Below [facility] Jaco Solarsi IPLocks DO Work Phone: Comment on above: Reference Range: 12. 0 - 16.0 MCHC (RBC) [Mass/Vol] 35.2 g/dL See Below [facility] IPLocks DO Work Phone: Comment on above: Reference Range: 32. 0 - 36.0 MCV (RBC) [Entitic vol] 86 fL 80 - 100 [facility] [facility] IPLocks DO Work Phone: Platelets (Bld) [#/Vol] 203 10*3/uL 150 - 450 [facility] Jaco Solarsi IPLocks DO Work Phone: RBC (Bld) [#/Vol] 3.52 {x10E12/L} below low threshold See Below [facility] Jaco Solarsi IPLocks DO Work Phone: Comment on above: Reference Range: 4.0 0 - 5.20 WBC (Bld) [#/Vol] 14.7 10*3/uL above high threshold 4.4 - 11.3 [facility] [facility] [facility] IPLocks DO Work Phone: Magnesium, Serumon 2 Magnesium [Mass/Vol] 1.89 mg/dL See Below [facility] IPLocks DO Work Phone: Comment on above: Reference Range: 1.6 0 - 2.40 Magnesium [Mass/Vol] 1.97 mg/dL See Below [facility] kori 250 DO Work Phone: Comment on above: Reference Range: 1.6 0 - 2.40 No Panel Informationon 01-14 0.0 {/100_WBC} 0.0-0.0 [facility] Wagon 250 DO Work Phone: 0.0 {/100_WBC} 0.0-0.0 [facility] Jaco Solarsi kori 250 DO Work Phone: Radiologyon 01-14-2022 XR Chest Single view Normal [facility] Jaco Solarsi kori 250 DO Work Phone: Renal Function Panelon 01-14 Albumin BCP dye [Mass/Vol] 3.0 g/dL below low threshold 3.4 - 5.0 [facility] Jaco Solarsi IPLocks DO Work Phone: Anion gap [Moles/Vol] 12 mmol/L 10 - 20 [facility] Jaco Solarsi kori 250 DO Work Phone: Calcium [Mass/Vol] 8.0 mg/dL below low threshold 8.6 - 10.6 [facility] Jaco Solarsi kori 250 DO Work Phone: Chloride [Moles/Vol] 97 mmol/L below low threshold 98 - 107 [facility] Jaco Solarsi kori 250 DO Work Phone: CO2 [Moles/Vol] 22 mmol/L 21 - 32 [facility] Jaco Solarsi kori 250 DO Work Phone: Creatinine [Mass/Vol] 0.77 mg/dL See Below [facility] Jaco Solarsi kori 250 DO Work Phone: Comment on above: Reference Range: 0.5 0 - 1.05 Glucose [Mass/Vol] 135 mg/dL above high threshold 74 - 99 [facility] Wagon 250 DO Work Phone: Phosphate [Mass/Vol] 2.6 mg/dL 2.5 - 4.9 [facility] Wagon 250 DO Work Phone: Comment on above: The performance andra acteristics of phosphorus testing in heparinized plasma have been validated by the individual laboratory site where testing is performed. Testing on heparinized plasma is not approved by the FDA; however, such approval is not necessary. Potassium [Moles/Vol] 4.1 mmol/L 3.5 - 5.3 [place] [address] DO Work Phone: Sodium [Moles/Vol] 127 mmol/L below low threshold 136 - 145 [place] [address] DO Work Phone: Urea nitrogen [Mass/Vol] 16 mg/dL 6 - 23 [place] [address] DO Work Phone: Renal Function Panel 78 {mL/min/1.73m2} >90 [place] [address] DO Work Phone: Comment on above: CALCULATIONS OF MOISES MATED GFR ARE PERFORMED USING THE 2020 CKD-EPI STUDY REFIT EQUATION WITHOUT THE RACE VARIABLE FOR THE IDMS-TRACEABLE CREATININE METHODS.https://jasn.asnjournals.org/content/early/A SN.6441927881 Albumin BCP dye [Mass/Vol] 2.9 g/dL below low threshold 3.4 - 5.0 [place] [address] DO Work Phone: Anion gap [Moles/Vol] 13 mmol/L 10 - 20 [place] [address] DO Work Phone: Calcium [Mass/Vol] 7.8 mg/dL below low threshold 8.6 - 10.6 [place] [address] DO Work Phone: Chloride [Moles/Vol] 98 mmol/L 98 - 107 [facility] 250 DO Work Phone: CO2 [Moles/Vol] 22 mmol/L 21 - 32 [place] [address] DO Work Phone: Creatinine [Mass/Vol] 0.72 mg/dL See Below [place] [address] DO Work Phone: Comment on above: Reference Range: 0.5 0 - 1.05 Glucose [Mass/Vol] 99 mg/dL 74 - 99 [facility] 250 DO Work Phone: Phosphate [Mass/Vol] 2.7 mg/dL 2.5 - 4.9 [facility] 250 DO Work Phone: Comment on above: The performance andra acteristics of phosphorus testing in heparinized plasma have been validated by the individual laboratory site where testing is performed. Testing on heparinized plasma is not approved by the FDA; however, such approval is not necessary. Potassium [Moles/Vol] 4.1 mmol/L 3.5 - 5.3 [place] [address] DO Work Phone: Sodium [Moles/Vol] 129 mmol/L below low threshold 136 - 145 [place] [address] DO Work Phone: Urea nitrogen [Mass/Vol] 16 mg/dL 6 - 23 [place] [address] DO Work Phone: Renal Function Panel 85 {mL/min/1.73m2} >90 [place] [address] DO Work Phone: Comment on above: CALCULATIONS OF MOISES MATED GFR ARE PERFORMED USING THE 2020 CKD-EPI STUDY REFIT EQUATION WITHOUT THE RACE VARIABLE FOR THE IDMS-TRACEABLE CREATININE METHODS.https://jasn.asnjournals.org/content///A SN.4623538958 Albumin BCP dye [Mass/Vol] 3.0 g/dL below low threshold 3.4 - 5.0 [place] [address] DO Work Phone: Anion gap [Moles/Vol] 13 mmol/L 10 - 20 [place] [address] DO Work Phone: Calcium [Mass/Vol] 7.9 mg/dL below low threshold 8.6 - 10.6 [facility] DO Work Phone: Chloride [Moles/Vol] 97 mmol/L below low threshold 98 - 107 [place] [address] DO Work Phone: CO2 [Moles/Vol] 23 mmol/L 21 - 32 [place] [address] DO Work Phone: Creatinine [Mass/Vol] 0.81 mg/dL See Below [place] [address] DO Work Phone: Comment on above: Reference Range: 0.5 0 - 1.05 Glucose [Mass/Vol] 97 mg/dL 74 - 99 [facility] kori lark DO Work Phone: Phosphate [Mass/Vol] 3.1 mg/dL 2.5 - 4.9 [facility] 250 DO Work Phone: Comment on above: The performance andra acteristics of phosphorus testing in heparinized plasma have been validated by the individual laboratory site where testing is performed. Testing on heparinized plasma is not approved by the FDA; however, such approval is not necessary. Potassium [Moles/Vol] 4.7 mmol/L 3.5 - 5.3 [place] [address] DO Work Phone: Sodium [Moles/Vol] 128 mmol/L below low threshold 136 - 145 [place] [address] DO Work Phone: Urea nitrogen [Mass/Vol] 16 mg/dL 6 - 23 [place] [address] DO Work Phone: Renal Function Panel 73 {mL/min/1.73m2} >90 [place] [address] DO Work Phone: Comment on above: CALCULATIONS OF MOISES MATED GFR ARE PERFORMED USING THE 2020 CKD-EPI STUDY REFIT EQUATION WITHOUT THE RACE VARIABLE FOR THE IDMS-TRACEABLE CREATININE METHODS.https://jasn.asnjournals.org/content//A SN.4798363464 Activated partial thrombopla stin time (aPTT) in platelet poor plasma by coagulation aOrdered By: Vandana Torres on 01-06-2022 aPTT Coag (PPP) [Time] 61.7 s 25.1-36.5 [facility] Creatinine and Glomerular fi ltration rate.predicted panel (S/P/Bld)Ordered By: Vandana Torres on 01-06-2022 Creatinine [Mass/Vol] 0.78 mg/dL 0.44-1.03 [facility] Estimated glomerular filtrat ion rate (GFR) non- AmericanOrdered By: Vandana Torres on 01-06-2022 GFR/1.73 sq M.predicted among non-blacks MDRD (S/P/Bld) [Vol rate/Area] > 60 mL/Min [facility] No Panel Informationon 01-06 [email or web address] ?RetrieveTestByDateTime?Pa fannvKN=[id number]&Date=&Time=11%3a46%3a43% 3a00&TestType=ECG&Site=1&O utputType=PDF&Ext=PDF [facility] 250 DO Work Phone: Sinus rhythm with occasional Premature ventricular complexes [facility] 250 DO Work Phone: Abnormal [facility]App[employer] kori 250 DO Work Phone: [phone] [facility] kori 250 DO Work Phone: [phone] [facility] kori 250 DO Work Phone: [phone] [facility] kori 250 DO Work Phone: 138 1 [facility] kori 250 DO Work Phone: [phone] 1 [facility]Sandu kori 250 DO Work Phone: 11 1 [facility]u kori 250 DO Work Phone: 70 1 [facility]-Sandu kori 250 DO Work Phone: [phone] [facility] kori 250 DO Work Phone: [phone] [facility] kori 250 DO Work Phone: [phone] [facility] kori 250 DO Work Phone: 84 1 [facility] kori 250 DO Work Phone: [phone] [facility] kori 250 DO Work Phone: [phone] [facility] kori 250 DO Work Phone: No Panel InformationOrdered By: Vandana Torres on 01-06-2022 Estimated GFR () > 60 mL/Min [facility] Comment on above: GFR estimated refere nce range: According to KDOQI guidelines, <60 ml/min/1.73m2 is sufficient to diagnose a patient with chronic kidney disease. Pharmacy Creatinine Clearance (Chem 49.24 [facility] Serum or plasma anion gap de terminationOrdered By: Vandana Torres on 01-06-2022 Anion gap [Moles/Vol] 11.8 mmol/L 6.0-15.0 [facility] Serum or plasma calcium rashmi urement (mass/volume)Ordered By: Vandana Torres on 01-06-2022 Calcium [Mass/Vol] 8.5 mg/dL 8.2-10.2 [facility] Serum or plasma chloride reece surement (moles/volume)Ordered By: Vandana Torres on 01-06-2022 Chloride [Moles/Vol] 103 mmol/L 95-114 [facility] Serum or plasma glucose rashmi urement (mass/volume)Ordered By: Vandana Torres on 01-06-2022 Glucose [Mass/Vol] 108 mg/dL 70-100 [facility] Comment on above: ADA recommended refe rence rangeRandom Glucose Reference Range is dependent on time and content of last meal. Glucose of more than 200 mg/dL in a nonstressed, ambulatory subject supports the diagnosis of Diabetes Mellitus. Serum or plasma potassium me asurement (moles/volume)Ordered By: Vandana Torres on 01-06-2022 Potassium [Moles/Vol] 4.1 mmol/L 3.5-5.1 [facility] Serum or plasma sodium measu rement (moles/volume)Ordered By: Vandana Torres on 01-06-2022 Sodium [Moles/Vol] 131 mmol/L 136-146 [facility] Serum or plasma total carbon dioxide measurement (moles/volume)Ordered By: Vandana Torres on 01-06-2022 CO2 [Moles/Vol] 20.3 mmol/L 22.0-30.0 [facility] Serum or plasma urea nitroge n measurement (mass/volume)Ordered By: Vandana Torres on 01-06-2022 Urea nitrogen [Mass/Vol] 11 mg/dL 12-05 [facility] Basophils Auto (Bld) [#/Vol] Ordered By: Gold Patrick on 01-05-2022 Basophils (Bld) [#/Vol] 0.1 10*3/uL 0.0-0.2 [facility] Basophils/100 WBC Auto (Bld) Ordered By: Gold Patrick on 01-05-2022 Basophils/100 WBC (Bld) 1.0 % . [facility] Eosinophils Auto (Bld) [#/Vo l]Ordered By: Gold Patrick on 01-05-2022 Eosinophils (Bld) [#/Vol] 0.2 10*3/uL 0.0-0.45 [facility] Eosinophils/100 WBC Auto (Bl d)Ordered By: Gold Patrick on 01-05-2022 Eosinophils/100 WBC (Bld) 2.9 % . [facility] Erythrocyte distribution wid th Auto (RBC) [Ratio]Ordered By: Gold Patrick on 01-05-2022 Erythrocyte distribution width (RBC) [Ratio] 14.6 % 11.9-15.3 [facility] Hematocrit Auto (Bld) [Volum e fraction]Ordered By: Gold Patrick on 01-05-2022 Hematocrit (Bld) [Volume fraction] 38.3 % 34.0-46.4 [facility] Hemoglobin [Mass/volume] in BloodOrdered By: Gold Patrick on 01-05-2022 Hemoglobin (Bld) [Mass/Vol] 12.8 g/dL 11.8-15.4 [facility] Laboratory - CoagulationOrde red By: Gold Patrick on 01-05-2022 PT Coag (PPP) [Time] 12.4 s 9.0-12.9 [facility] Laboratory - Hematology and Cell countsOrdered By: Gold Patrick on 01-05-2022 Nucleated RBC/100 WBC (Bld) [Ratio] 0.0 % 0-0.5 [facility] Leukocytes [#/volume] in Blo od by Automated countOrdered By: Gold Patrick on 01-05-2022 WBC (Bld) [#/Vol] 7.9 10*3/uL 4.5-11.0 [facility] Lymphocytes Auto (Bld) [#/Vo l]Ordered By: Gold Patrick on 01-05-2022 Lymphocytes (Bld) [#/Vol] 2.0 10*3/uL 1.00-4.8 [facility] Lymphocytes/100 WBC Auto (Bl d)Ordered By: Gold Patrick on 01-05-2022 Lymphocytes/100 WBC (Bld) 25.1 % . [facility] MCH Auto (RBC) [Entitic mass ]Ordered By: Gold Patrick on 01-05-2022 MCH (RBC) [Entitic mass] 28.8 pg 24.7-34.3 [facility] MCHC Auto (RBC) [Mass/Vol]Or dered By: Gold Patrick on 01-05-2022 MCHC (RBC) [Mass/Vol] 33.4 g/dL 32.0-35.0 [facility] MCV Auto (RBC) [Entitic vol] Ordered By: Gold Patrick on 01-05-2022 MCV (RBC) [Entitic vol] 86.4 fL 80-100 [facility] Monocytes Auto (Bld) [#/Vol] Ordered By: Glod Patrick on 01-05-2022 Monocytes (Bld) [#/Vol] 0.7 10*3/uL 0.0-0.8 [facility] Monocytes/100 WBC Auto (Bld) Ordered By: Gold Patrick on 01-05-2022 Monocytes/100 WBC (Bld) 9.2 % . [facility] Neutrophils Auto (Bld) [#/Vo l]Ordered By: Gold Patrick on 01-05-2022 Neutrophils (Bld) [#/Vol] 4.9 10*3/uL 1.8-7.7 [facility] Neutrophils/100 WBC Auto (Bl d)Ordered By: Gold Patrick on 01-05-2022 Neutrophils/100 WBC (Bld) 61.8 % . [facility] No Panel InformationOrdered By: Vandana Torres on 01-05-2022 Urine Osmolality 211 mosm 250-900 [facility] Platelet mean volume Auto (B ld) [Entitic vol]Ordered By: Gold Patrick on 01-05-2022 Platelet mean volume (Bld) [Entitic vol] 9.1 fL 6.3-10.7 [facility] Platelet poor plasma interna tional normalized ratio (INR) by coagulation assay (relatOrdered By: Gold Patrick on 01-05-2022 INR Coag (PPP) [Relative time] 1.1 {INR} [facility] Comment on above: INR Therapeutic Rang e [...] 01-05-2022 Platelets (Bld) [#/Vol] 210 10*3/uL 150-450 [facility] RBC Auto (Bld) [#/Vol]Ordere d By: Gold Patrick on 01-05-2022 RBC (Bld) [#/Vol] 4.43 10*6/uL 3.60-5.00 [facility] Urine sodium measurement (mo les/volume)Ordered By: Vandana Torres on 01-05-2022 Sodium (U) [Moles/Vol] 30.0 mmol/L [facility] Comment on above: No reference range e stablished Cholesterol [Mass/volume] in Serum or PlasmaOrdered By: Jaya Bae on 01-03-2022 Cholesterol [Mass/Vol] 196 mg/dL 140-200 [facility] Comment on above: Chol less than 200 m g/dl low riskChol 201-239 mg/dl borderline riskChol 240 mg/dl and greater high risk Cholesterol in LDL Calc [Mas s/Vol]Ordered By: Jaya Bae on 01-03-2022 Cholesterol in LDL [Mass/Vol] 133 mg/dL 0-100 [facility] Comment on above: LDL ATP III CLASSIFI CATIONLDL less than 100 mg/dL OptimalLDL 100-129 mg/dL Near or above optimalLDL 130-159 mg/dL Borderline highLDL 160-189 mg/dL HighLDL greater than 189 mg/dL Very high Cholesterol in VLDL Calc [Ma ss/Vol]Ordered By: Jaya Bae on 01-03-2022 Cholesterol in VLDL [Mass/Vol] 14 mg/dL [facility] Laboratory - Chemistry and C hemistry - challengeOrdered By: Jaya Bae on 01-03-2022 Cobalamin (Vitamin B12) [Mass/Vol] 458 pg/mL 180-914 [facility] Magnesium [Mass/Vol] 2.0 mg/dL 1.6-2.6 [facility] No Panel InformationOrdered By: Jaya Bae on 01-03-2022 25-Hydroxy Vitamin D Total 42.8 ng/mL 30-100 [facility] Comment on above: VITAMIN D STATUS 25( [...] Cholesterol in HDL [Mass/Vol] 49 mg/dL 35-85 [facility] Comment on above: HDL CHOL ATP-III CLA SSIFICATION Cardiovascular RiskHDL > or equal to 60 mg/dL LOWHDL < 40 mg/dL HIGH Serum or plasma total choles terol/high density lipoprotein (HDL) cholesterol mass ratOrdered By: Jaya Bae on 01-03-2022 Cholesterol.total/Chol esterol in HDL [Mass ratio] 4.0 {ratio} <5.0 [facility] TSH DL <= 0.005 mIU/L QnOrde red By: Jaya Bae on 01-03-2022 TSH Qn 0.04 m[IU]/L 0.45-5.33 [facility] Triglyceride [Mass/volume] i n Serum or PlasmaOrdered By: Jaya Bae on 01-03-2022 Triglyceride [Mass/Vol] 70 mg/dL 35-149 [facility] Comment on above: TRIG ATP III CLASSIF [...] High sensitivity method [Mass/Vol] 7668 pg/mL 0-15 [facility] Comment on above: Results calledat 062 5 on 10/22/22 BNPon 01-02-2022 Natriuretic peptide B (Bld) [Mass/Vol] 971.0 pg/mL Normal <=1,800.0 [facility] Comment on above: Performed By: #### C MADM, BNP, CMP #### [facility] [place] [facility] [address] [place] [address] Dr. Marco Greer Body fluid albumin measureme nt (mass/volume)Ordered By: Jaya Jeshiloh on 01-02-2022 Albumin (Body fld) [Mass/Vol] 3.1 g/dL 3.2-5.5 [facility] CARDIAC BALJIT ADMITon 022 CK [Catalytic activity/Vol] 103 U/L Normal 26-192 [facility] Comment on above: Performed By: #### C MADM, BNP, CMP #### [facility] [place] [facility] [address] [place] [address] Dr. Marco Greer CK.MB [Mass/Vol] 12.75 ng/mL Critically high <=3.60 [facility] Comment on above: Performed By: #### C MADM, BNP, CMP #### [facility] [place] [facility] [address] [address] [address] Marco Greer HSTROP 2985.3 pg/mL Critically high 4.0-51.3 [facility] Comment on above: Result Comment: CUT- OFF POINTS HAVE BEEN ESTABLISHED BASED ON THE FOURTH UNIVERSAL DEFINITIONS OF MYOCARDIAL INFARCTION. THE UPPER REFERENCE LIMIT (URL) OF TROPONIN, DEFINED THE 99TH PERCENTILE OF cTnI DISTRIBUTION IN A REFERENCE POPULATION, HAS BEEN CONFIRMED THE DECISION THRESHOLD FOR MT DIAGNOSIS. Performed By: #### C MADM, BNP, CMP #### [facility] [place] [facility] [address] [address] [address] Marco Greer MANINDER 282 ng/mL Critically high 9-82 [facility] Comment on above: Performed By: #### C MADM, BNP, CMP #### [facility] [place] [facility] [address] [place] [address] Dr. Marco Greer CBC AUTO DIFFon 01-02-2022 BASO # 0.0 103/ul Normal 0.0-0.1 [facility] Comment on above: Performed By: #### C MP #### [facility] [place] [facility] [address] [place] [address] Dr. Marco Greer Basophils/100 WBC (Bld) 0.4 % Normal 0.2-2.0 [facility] Comment on above: Performed By: #### C MP #### [facility] [place] [facility] [address] [place] [address] Dr. Marco Greer EO # 0.1 103/ul Normal 0.0-0.7 [facility] [place] Comment on above: Performed By: #### C MP #### [facility] [place] [facility] [address] [place] [address] Dr. Marco Greer Eosinophils/100 WBC (Bld) 0.6 % Critically low 0.9-7.0 [facility] Comment on above: Performed By: #### C MP #### [facility] [place] [facility] [address] [place] [address] Dr. Marco Greer Erythrocyte distribution width (RBC) [Ratio] 14.3 % Normal 11.0-15.0 [facility] Comment on above: Performed By: #### C MP #### [facility] [place] [facility] [address] [place] [address] Dr. Marco Greer Hematocrit (Bld) [Volume fraction] 41.3 % Normal 36.0-48.0 [facility] Comment on above: Performed By: #### C MP #### [facility] [place] [facility] [address] [place] [address] Dr. Marco Greer Hemoglobin (Bld) [Mass/Vol] 13.6 g/dL Normal 12.0-16.0 [facility] Comment on above: Performed By: #### C MP #### [facility] [place] [facility] [address] [place] [address] Dr. Marco Greer IG # 0.04 10e3/ul Critically high 0.00-0.03 [facility] Comment on above: Performed By: #### C MP #### [facility] [place] [facility] [address] [place] [address] Dr. Marco Greer IG % 0.4 % Normal 0.0-0.5 [facility] [place] Comment on above: Performed By: #### C MP #### [facility] [place] [facility] [address] [place] [address] Dr. Marco Greer LYMPH # 1.6 103/ul Normal 1.2-3.8 [facility] Comment on above: Performed By: #### C MP #### [facility] [place] [facility] [address] [place] [address] Dr. Marco Greer Lymphocytes/100 WBC (Bld) 15.9 % Critically low 20.5-60.0 [facility] Comment on above: Performed By: #### C MP #### [facility] [place] [facility] [address] [place] [address] Dr. Marco Greer MANUAL DIFF REQ NO Normal [facility] Comment on above: Performed By: #### C MP #### [facility] [place] [facility] [address] [place] [address] Dr. Marco Greer MCH (RBC) [Entitic mass] 28.7 pg Normal 26.7-34.0 [facility] Comment on above: Performed By: #### C MP #### [facility] [place] [facility] [address] [place] [address] Dr. Marco Greer MCHC (RBC) [Mass/Vol] 32.9 g/dL Normal 29.9-35.2 [facility] [place] Comment on above: Performed By: #### C MP #### [facility] [place] [facility] [address] [place] [address] Dr. Marco Greer MCV (RBC) [Entitic vol] 87.1 fL Normal 81.0-99.0 [facility] [place] Comment on above: Performed By: #### C MP #### [facility] [place] [facility] [address] [place] [address] Dr. Marco Greer MONO # 0.7 103/ul Normal 0.3-0.8 [facility] [place] Comment on above: Performed By: #### C MP #### [facility] [place] [facility] [address] [place] [address] Dr. Marco Greer Monocytes/100 WBC (Bld) 7.1 % Normal 1.7-12.0 [facility] Comment on above: Performed By: #### C MP #### [facility] [place] [facility] [address] [address] [address] Marco Greer NEUT # 7.8 103/ul Critically high 1.4-6.5 [facility] [place] Comment on above: Performed By: #### C MP #### [facility] [place] [facility] [address] [id number] Marco Greer Neutrophils/100 WBC (Bld) 75.6 % Critically high 43.0-75.0 [facility] [place] Comment on above: Performed By: #### C MP #### [facility] [place] [facility] [address] [address] [address] Marco Greer Platelet mean volume (Bld) [Entitic vol] 10.5 fL Normal 9.5-13.5 [facility] [place] Comment on above: Performed By: #### C MP #### [facility] [place] [facility] [address] [address] [address] Marco Greer PLT 233 103/ul Normal 150-450 [facility] [place] Comment on above: Performed By: #### C MP #### [facility] [place] [facility] [address] [address] [address] Marco Greer RBC 4.74 106/ul Normal 4.20-5.40 [facility] [place] Comment on above: Performed By: #### C MP #### [facility] [place] [facility] [address] [address] [address] Marco Greer WBC 10.3 103/ul Normal 4.0-11.0 [facility] [place] Comment on above: Performed By: #### C MP #### [facility] [place] [facility] [address] [place] [address] HEAD WO CONon [...] IRON ALANIS Date: 2022-01-02 13:37 Normal [facility] [place] [facility]14 SARS-CoV-2 (COVID-19) RNA NADER+probe Ql (Unsp spec) Not detected Normal NOT DETECTED [facility] [place] Comment on above: Result Comment: When diagnostic [...] for this test is supported by the Assistant Teacher of [employer] and [employer] Service's declaration that [...] By: #### C MADM, BNP, CMP #### [facility] [place] [facility] [address] [address] [address] Marco Greer Globulin Calc (S) [Mass/Vol] Ordered By: Jaya Bae on 01-02-2022 Globulin (S) [Mass/Vol] 3.9 g/dL [facility] PROF 14(COMP METB)on 022 Albumin [Mass/Vol] 3.0 g/dL Critically low 3.4-5.0 Th [facility] Comment on above: Performed By: #### C MADM, BNP, CMP #### [facility] [place] [facility] [address] [address] [address] Marco Greer Albumin/Globulin [Mass ratio] 0.7 {ratio} Normal [facility] Comment on above: Performed By: #### C MADM, BNP, CMP #### [facility] [place] [facility] [address] [address] [address] Marco Greer ALP [Catalytic activity/Vol] 68 U/L Normal 46-116 [facility] Comment on above: Performed By: #### C MADM, BNP, CMP #### [facility] [place] [facility] [address] [address] [address] Marco Greer ALT [Catalytic activity/Vol] 19 U/L Normal 14-59 [facility] Comment on above: Performed By: #### C MADM, BNP, CMP #### [facility] [place] [facility] [address] [place] [address] Dr. Marco Greer Anion gap [Moles/Vol] 11.2 mmol/L Normal [facility] Comment on above: Performed By: #### C MADM, BNP, CMP #### [facility] [place] [facility] [address] [address] [address] Marco Greer AST [Catalytic activity/Vol] 24 U/L Normal 15-37 [facility] Comment on above: Performed By: #### C MADM, BNP, CMP #### [facility] [place] [facility] [address] [address] [address] Marco Greer Bilirubin [Mass/Vol] 0.4 mg/dL Normal 0.2-1.0 [facility] Comment on above: Performed By: #### C MADM, BNP, CMP #### [facility] [place] [facility] [address] [address] [address] Marco Greer Calcium [Mass/Vol] 9.1 mg/dL Normal 8.5-10.1 [facility] Comment on above: Performed By: #### C MADM, BNP, CMP #### [facility] [place] [facility] [address] [address] [address] Marco Greer Chloride [Moles/Vol] 101 mmol/L Normal 98-107 [facility] Comment on above: Performed By: #### C MADM, BNP, CMP #### [facility] [place] [facility] [address] [address] [address] Marco Greer CO2 [Moles/Vol] 24.1 mmol/L Normal 21.0-32.0 [facility] Comment on above: Performed By: #### C MADM, BNP, CMP #### [facility] [place] [facility] [address] [place] [address] Dr. Marco Greer Creatinine [Mass/Vol] 0.99 mg/dL Normal 0.55-1.02 [facility] Comment on above: Performed By: #### C MADM, BNP, CMP #### [facility] [place] [facility] [address] [place] [address] Dr. Marco Greer EGFR-AF LAO >60 Normal >=60 [facility] Comment on above: Performed By: #### C MADM, BNP, CMP #### [facility] [place] [facility] [address] [place] [address] Dr. Marco Greer EGFR-NON AF LAO 54 mL/min/1.73m2 Critically low >=60 [facility] Comment on above: Performed By: #### C MADM, BNP, CMP #### [facility] [place] [facility] [address] [place] [address] Dr. Marco Greer Globulin (S) [Mass/Vol] 4.5 g/dL Normal [facility] Comment on above: Performed By: #### C MADM, BNP, CMP #### [facility] [place] [facility] [address] [place] [address] Dr. Marco Greer Glucose [Mass/Vol] 145 mg/dL Critically high 74-106 T [facility] Comment on above: Performed By: #### C MADM, BNP, CMP #### [facility] [place] [facility] [address] [place] [address] Dr. Marco Greer Potassium [Moles/Vol] 3.3 mmol/L Critically low 3.5-5.1 [facility] Comment on above: Performed By: #### C MADM, BNP, CMP #### [facility] [place] [facility] [address] [place] [address] Dr. Marco Greer Protein [Mass/Vol] 7.5 g/dL Normal 6.4-8.2 [facility] [place] Comment on above: Performed By: #### C MADM, BNP, CMP #### [facility] [place] [facility] [address] [place] [address] Dr. Marco Greer Sodium [Moles/Vol] 133 mmol/L Critically low 136-145 Th e [facility] [place] Comment on above: Performed By: #### C MADM, BNP, CMP #### [facility] [place] [facility] [address] [place] [address] Dr. Marco Greer Urea nitrogen [Mass/Vol] 16.0 mg/dL Normal 7.0-18.0 [facility] Comment on above: Performed By: #### C MADM BNP, CMP #### [facility] [place] [facility] [address] [place] [address] Dr. Marco Greer Urea nitrogen/Creatinine [Mass ratio] 16.2 mg/mg Normal [facility] [place] Comment on above: Performed By: #### C MADM, BNP, CMP #### [facility] [place] [facility] [address] [place] [address] Dr. Marco Greer PROTIMEon 01-02-2022 INR Coag (PPP) [Relative time] 1.02 {INR} Normal [facility] Comment on above: Performed By: #### C MADM, BNP, CMP #### [facility] [place] [facility] [address] [place] [address] Dr. Marco Greer INR GUIDELINES SEE BELOW Normal [facility] [place] Comment on above: Result Comment: YULIET RED INR: 2.0 - 3.0 CONDITIONS NOT LISTED BELOW 2.5 - 3.5 FOR PROSTHETIC HEART VALVE REPLACEMENT 2.5 - 3.5 RECURRENT THROMBOSIS Performed By: #### C MADM, BNP, CMP #### [facility] [place] [facility] [address] [place] [address] Dr. Marco Greer PT Coag (PPP) [Time] 11.0 s Normal 9.0-11.6 [facility] Comment on above: Performed By: #### C MADM, BNP, CMP #### [facility] [place] [facility] [address] [place] [address] Dr. Marco Greer PTTon 01-02-2022 aPTT Coag (Bld) [Time] 31.0 s Normal 22.3-36.2 Th e [facility] [place] Comment on above: Performed By: #### C MADM, BNP, CMP #### [facility] [place] [facility] [address] [place], [place] [address] Dr. Marco Greer Protein [Mass/volume] in Ser um or PlasmaOrdered By: Jaya Bae on 01-02-2022 Protein [Mass/Vol] 7.0 g/dL 6.1-7.9 [facility] Serum or plasma alanine kenny otransferase measurement without P-5'-P (enzymatic activiOrdered By: Jaya Bae on 01-02-2022 ALT No additional P-5'-P [Catalytic activity/Vol] 20 U/L 10-60 [facility] Serum or plasma albumin/glob ulin mass ratioOrdered By: Jaya Bae on 01-02-2022 Albumin/Globulin [Mass ratio] 0.8 {ratio} [facility] Serum or plasma alkaline lisy sphatase measurement (enzymatic activity/volume)Ordered By: Jaya Bae on 01-02-2022 ALP [Catalytic activity/Vol] 58 U/L 32-92 [facility] Serum or plasma aspartate am inotransferase measurement (enzymatic activity/volume)Ordered By: Jaya Bae on 01-02-2022 AST [Catalytic activity/Vol] 59 U/L 10-42 [facility] Serum or plasma total biliru bin measurement (mass/volume)Ordered By: Jaya Bae on 01-02-2022 Bilirubin [Mass/Vol] 0.6 mg/dL 0.3-1.2 [facility] XR CHEST 1 Von 01-02-2022 XR CHEST [...] by: BUD BROUSSARD Date: 2022-01-02 13:42 Normal [facility] Albumin [Mass/volume] in Ser um or PlasmaOrdered By: Brianda Harris on 11-26-2021 Albumin [Mass/Vol] 3.1 g/dL 3.2-5.5 [facility] Basophils Auto (Bld) [#/Vol] Ordered By: Brianda Harris on 11-26-2021 Basophils (Bld) [#/Vol] 0.1 10*3/uL 0.0-0.2 [facility] Basophils/100 WBC Auto (Bld) Ordered By: Brianda Harris on 11-26-2021 Basophils/100 WBC (Bld) 0.4 % . [facility] Creatinine and Glomerular fi ltration rate.predicted panel (S/P/Bld)Ordered By: Brianda Harris on 11-26-2021 Creatinine [Mass/Vol] 0.69 mg/dL 0.44-1.03 [facility] Eosinophils Auto (Bld) [#/Vo l]Ordered By: Brianda Harris on 11-26-2021 Eosinophils (Bld) [#/Vol] 0.0 10*3/uL 0.0-0.45 [facility] Eosinophils/100 WBC Auto (Bl d)Ordered By: Brianda Harris on 11-26-2021 Eosinophils/100 WBC (Bld) 0.1 % . [facility] Erythrocyte distribution wid th Auto (RBC) [Ratio]Ordered By: Brianda Harris on 11-26-2021 Erythrocyte distribution width (RBC) [Ratio] 14.1 % 11.9-15.3 [facility] Erythrocyte sedimentation ra te by Photometric methodOrdered By: Brianda Harris on 11-26-2021 ESR Photometric method (Bld) [Velocity] 78 mm/hr 0-29 [facility] Estimated glomerular filtrat ion rate (GFR) non- AmericanOrdered By: Brianda Harris on 11-26-2021 GFR/1.73 sq M.predicted among non-blacks MDRD (S/P/Bld) [Vol rate/Area] > 60 mL/Min [facility] Globulin Calc (S) [Mass/Vol] Ordered By: Brianda Harris on 11-26-2021 Globulin (S) [Mass/Vol] 4.1 g/dL [facility] Hematocrit Auto (Bld) [Volum e fraction]Ordered By: Brianda Harris on 11-26-2021 Hematocrit (Bld) [Volume fraction] 40.4 % 34.0-46.4 [facility] Hemoglobin [Mass/volume] in BloodOrdered By: Brianda Harris on 11-26-2021 Hemoglobin (Bld) [Mass/Vol] 13.2 g/dL 11.8-15.4 [facility] Laboratory - Hematology and Cell countsOrdered By: Brianda Harris on 11-26-2021 Nucleated RBC/100 WBC (Bld) [Ratio] 0.1 % 0-0.5 [facility] Leukocytes [#/volume] in Blo od by Automated countOrdered By: Brianda Harris on 11-26-2021 WBC (Bld) [#/Vol] 15.8 10*3/uL 4.5-11.0 [facility] Lymphocytes Auto (Bld) [#/Vo l]Ordered By: Brianda Harris on 11-26-2021 Lymphocytes (Bld) [#/Vol] 1.2 10*3/uL 1.00-4.8 [facility] Lymphocytes/100 WBC Auto (Bl d)Ordered By: Brianda Harris on 11-26-2021 Lymphocytes/100 WBC (Bld) 7.8 % . [facility] MCH Auto (RBC) [Entitic mass ]Ordered By: Brianda Harris on 11-26-2021 MCH (RBC) [Entitic mass] 28.2 pg 24.7-34.3 [facility] MCHC Auto (RBC) [Mass/Vol]Or dered By: Brianda Harris on 11-26-2021 MCHC (RBC) [Mass/Vol] 32.6 g/dL 32.0-35.0 [facility] MCV Auto (RBC) [Entitic vol] Ordered By: Brianda Harris on 11-26-2021 MCV (RBC) [Entitic vol] 86.4 fL 80-100 [facility] Monocytes Auto (Bld) [#/Vol] Ordered By: Brianda Harris on 11-26-2021 Monocytes (Bld) [#/Vol] 0.8 10*3/uL 0.0-0.8 [facility] Monocytes/100 WBC Auto (Bld) Ordered By: Brianda Harris on 11-26-2021 Monocytes/100 WBC (Bld) 5.0 % . [facility] Neutrophils Auto (Bld) [#/Vo l]Ordered By: Brianda Harris on 11-26-2021 Neutrophils (Bld) [#/Vol] 13.7 10*3/uL 1.8-7.7 [facility] Neutrophils/100 WBC Auto (Bl d)Ordered By: Brianda Harris on 11-26-2021 Neutrophils/100 WBC (Bld) 86.7 % . [facility] No Panel InformationOrdered By: Brianda Harris on 11-26-2021 Estimated GFR () > 60 mL/Min [facility] Comment on above: GFR estimated refere nce range: According to KDOQI guidelines, <60 ml/min/1.73m2 is sufficient to diagnose a patient with chronic kidney disease. Pharmacy Creatinine Clearance (Chem N/A [facility] Platelet mean volume Auto (B ld) [Entitic vol]Ordered By: Brianda Harris on 11-26-2021 Platelet mean volume (Bld) [Entitic vol] 9.3 fL 6.3-10.7 [facility] Platelets Auto (Bld) [#/Vol] Ordered By: Brianda Harris on 11-26-2021 Platelets (Bld) [#/Vol] 277 10*3/uL 150-450 [facility] Protein [Mass/volume] in Ser um or PlasmaOrdered By: Brianda Harris on 11-26-2021 Protein [Mass/Vol] 7.2 g/dL 6.1-7.9 [facility] RBC Auto (Bld) [#/Vol]Ordere d By: Brianda Harris on 11-26-2021 RBC (Bld) [#/Vol] 4.68 10*6/uL 3.60-5.00 [facility] Serum or plasma alanine kenny otransferase measurement without P-5'-P (enzymatic activiOrdered By: Brianda Harris on 11-26-2021 ALT No additional P-5'-P [Catalytic activity/Vol] 20 U/L 10-60 [facility] Serum or plasma albumin/glob ulin mass ratioOrdered By: Brianda Harris on 11-26-2021 Albumin/Globulin [Mass ratio] 0.8 {ratio} [facility] Serum or plasma alkaline lisy sphatase measurement (enzymatic activity/volume)Ordered By: Brianda Harris on 11-26-2021 ALP [Catalytic activity/Vol] 60 U/L 32-92 [facility] Serum or plasma anion gap de terminationOrdered By: Brianda Harris on 11-26-2021 Anion gap [Moles/Vol] 18.5 mmol/L 6.0-15.0 [facility] Serum or plasma aspartate am inotransferase measurement (enzymatic activity/volume)Ordered By: Brianda Harris on 11-26-2021 AST [Catalytic activity/Vol] 28 U/L 10-42 [facility] Serum or plasma calcium rashmi urement (mass/volume)Ordered By: Brianda Harris on 11-26-2021 Calcium [Mass/Vol] 9.1 mg/dL 8.2-10.2 [facility] Serum or plasma chloride reece surement (moles/volume)Ordered By: Brianda Harris on 11-26-2021 Chloride [Moles/Vol] 90 mmol/L 95-114 [facility] Serum or plasma glucose rashmi urement (mass/volume)Ordered By: Brianda Harris on 11-26-2021 Glucose [Mass/Vol] 93 mg/dL 70-100 [facility] Comment on above: ADA recommended refe rence rangeRandom Glucose Reference Range is dependent on time and content of last meal. Glucose of more than 200 mg/dL in a nonstressed, ambulatory subject supports the diagnosis of Diabetes Mellitus. Serum or plasma potassium me asurement (moles/volume)Ordered By: Brianda Harris on 11-26-2021 Potassium [Moles/Vol] 3.7 mmol/L 3.5-5.1 [facility] Serum or plasma sodium measu rement (moles/volume)Ordered By: Brianda Harris on 11-26-2021 Sodium [Moles/Vol] 127 mmol/L 136-146 [facility] Serum or plasma total biliru bin measurement (mass/volume)Ordered By: Brianda Harris on 11-26-2021 Bilirubin [Mass/Vol] 0.3 mg/dL 0.3-1.2 [facility] Serum or plasma total carbon dioxide measurement (moles/volume)Ordered By: Brianda Harris on 11-26-2021 CO2 [Moles/Vol] 22.2 mmol/L 22.0-30.0 [facility] Serum or plasma urea nitroge n measurement (mass/volume)Ordered By: Brianda Harris on 11-26-2021 Urea nitrogen [Mass/Vol] 13 mg/dL 9-23 [facility] CBC AUTO DIFFon 08-25-2021 BASO # 0.0 103/ul Normal 0.0-0.1 [facility] Comment on above: Performed By: #### C MADM, BNP, CMP #### [facility] [place] [facility] [address] [address] [address] Marco Greer Basophils/100 WBC (Bld) 0.8 % Normal 0.2-2.0 [facility] [place] Comment on above: Performed By: #### C MADM, BNP, CMP #### [facility] [place] [facility] [address] [address] [address] Marco Greer EO # 0.2 103/ul Normal 0.0-0.7 [facility] [place] Comment on above: Performed By: #### C MADM, BNP, CMP #### [facility] [place] [facility] [address] [address] [address] Marco Greer Eosinophils/100 WBC (Bld) 4.0 % Normal 0.9-7.0 [facility] [place] Comment on above: Performed By: #### C MADM, BNP, CMP #### [facility] [place] [facility] [address] [place] [address] Dr. Marco Greer Erythrocyte distribution width (RBC) [Ratio] 14.7 % Normal 11.0-15.0 [facility] Comment on above: Performed By: #### C MADM, BNP, CMP #### [facility] [place] [facility] [address] [place] [address] Dr. Marco Greer Hematocrit (Bld) [Volume fraction] 40.4 % Normal 36.0-48.0 [facility] Comment on above: Performed By: #### C MADM, BNP, CMP #### [facility] [place] [facility] [address] [place] [address] Dr. Marco Greer Hemoglobin (Bld) [Mass/Vol] 13.3 g/dL Normal 12.0-16.0 [facility] Comment on above: Performed By: #### C MADM, BNP, CMP #### [facility] [place] [facility] [address] [place] [address] Dr. Marco Greer IG # 0.01 10e3/ul Normal 0.00-0.03 [facility] [place] Comment on above: Performed By: #### C MADM, BNP, CMP #### [facility] [place] [facility] [address] [place] [address] Dr. Marco Greer IG % 0.2 % Normal 0.0-0.5 [facility] [place] Comment on above: Performed By: #### C MADM, BNP, CMP #### [facility] [place] [facility] [address] [place] [address] Dr. Marco Greer LYMPH # 1.7 103/ul Normal 1.2-3.8 [facility] [place] Comment on above: Performed By: #### C MADM, BNP, CMP #### [facility] [place] [facility] [address] [place] [address] Dr. Marco Greer Lymphocytes/100 WBC (Bld) 36.1 % Normal 20.5-60.0 [facility] [place] Comment on above: Performed By: #### C MADM, BNP, CMP #### [facility] [place] [facility] [address] [address] [address] Marco Greer MANUAL DIFF REQ NO Normal [facility] [place] Comment on above: Performed By: #### C MADM, BNP, CMP #### [facility] [place] [facility] [address] [place] [address] Dr. Marco Greer MCH (RBC) [Entitic mass] 28.9 pg Normal 26.7-34.0 [facility] Comment on above: Performed By: #### C MADM, BNP, CMP #### [facility] [place] [facility] [address] [place] [address] Dr. Marco Greer MCHC (RBC) [Mass/Vol] 32.9 g/dL Normal 29.9-35.2 [facility] Comment on above: Performed By: #### C MADM, BNP, CMP #### [facility] [place] [facility] [address] [place] [address] Dr. Marco Greer MCV (RBC) [Entitic vol] 87.8 fL Normal 81.0-99.0 [facility] Comment on above: Performed By: #### C MADM, BNP, CMP #### [facility] [place] [facility] [address] [place] [address] Dr. Marco Greer MONO # 0.9 103/ul Critically high 0.3-0.8 [facility] Comment on above: Performed By: #### C MADM, BNP, CMP #### [facility] [place] [facility] [address] [place] [address] Dr. Marco Greer Monocytes/100 WBC (Bld) 19.0 % Critically high 1.7-12.0 [facility] Comment on above: Performed By: #### C MADM, BNP, CMP #### [facility] [place] [facility] [address] [place] [address] Dr. Marco Greer NEUT # 1.9 103/ul Normal 1.4-6.5 [facility] Comment on above: Performed By: #### C MADM, BNP, CMP #### [facility] [place] [facility] [address] [place] [address] Dr. Marco Greer Neutrophils/100 WBC (Bld) 39.9 % Critically low 43.0-75.0 [facility] Comment on above: Performed By: #### C MADM, BNP, CMP #### [facility] [place] [facility] [address] [place] [address] Dr. Marco Greer Platelet mean volume (Bld) [Entitic vol] 11.1 fL Normal 9.5-13.5 [facility] Comment on above: Performed By: #### C MADM, BNP, CMP #### [facility] [place] [facility] [address] [place] [address] Dr. Marco Greer PLT 230 103/ul Normal 150-450 [facility] Comment on above: Performed By: #### C MADM, BNP, CMP #### [facility] [place] [facility] [address] [place] [address] Dr. Marco Greer RBC 4.60 106/ul Normal 4.20-5.40 [facility] Comment on above: Performed By: #### C MADM, BNP, CMP #### [facility] [place] [facility] [address] [place] [address] Dr. Marco Greer WBC 4.7 103/ul Normal 4.0-11.0 [facility] Comment on above: Performed By: #### C MADM, BNP, CMP #### [facility] [place] [facility] [address] [place] [address] Dr. Marco Greer PROF 14(COMP METB)on 022 Albumin [Mass/Vol] 3.1 g/dL Critically low 3.4-5.0 [facility] Comment on above: Performed By: #### C MP #### [facility] [place] [facility] [address] [place] [address] Dr. Marco Greer Albumin/Globulin [Mass ratio] 0.8 {ratio} Normal [facility] Comment on above: Performed By: #### C MP #### [facility] [place] [facility] [address] [place] [address] Dr. Marco Greer ALP [Catalytic activity/Vol] 65 U/L Normal 46-116 [facility] Comment on above: Performed By: #### C MP #### [facility] [place] [facility] [address] [place] [address] Dr. Marco Greer ALT [Catalytic activity/Vol] 21 U/L Normal 14-59 [facility] [place] Comment on above: Performed By: #### C MP #### [facility] [place] [facility] [address] [address] [address] Marco Greer Anion gap [Moles/Vol] 12.0 mmol/L Normal Th e [facility] [place] Comment on above: Performed By: #### C MP #### [facility] [place] [facility] [address] [address] [address] Marco Greer AST [Catalytic activity/Vol] 21 U/L Normal 15-37 [facility] Comment on above: Performed By: #### C MP #### [facility] [place] [facility] [address] [place] [address] Dr. Marco Greer Bilirubin [Mass/Vol] 0.3 mg/dL Normal 0.2-1.0 [facility] Comment on above: Performed By: #### C MP #### [facility] [place] [facility] [address] [place] [address] Dr. Marco Greer Calcium [Mass/Vol] 8.8 mg/dL Normal 8.5-10.1 [facility] Comment on above: Performed By: #### C MP #### [facility] [place] [facility] [address] [place] [address] Dr. Marco Greer Chloride [Moles/Vol] 99 mmol/L Normal 98-107 [facility] [place] Comment on above: Performed By: #### C MP #### [facility] [place] [facility] [address] [place] [address] Dr. Marco Greer CO2 [Moles/Vol] 26.3 mmol/L Normal 21.0-32.0 [facility] [place] Comment on above: Performed By: #### C MP #### [facility] [place] [facility] [address] [place] [address] Dr. Marco Greer Creatinine [Mass/Vol] 0.80 mg/dL Normal 0.55-1.02 [facility] [place] Comment on above: Performed By: #### C MP #### [facility] [place] [facility] [address] [place] [address] Dr. Marco Greer EGFR-AF LAO >60 Normal >=60 [facility] Comment on above: Performed By: #### C MP #### [facility] [place] [facility] [address] [address] [address] Marco Greer EGFR-NON AF LAO >60 Normal >=60 [facility] Comment on above: Performed By: #### C MP #### [facility] [place] [facility] [address] [address] [address] Marco Greer Globulin (S) [Mass/Vol] 3.8 g/dL Normal [facility] Comment on above: Performed By: #### C MP #### [facility] [place] [facility] [address] [address] [address] Marco Greer Glucose [Mass/Vol] 87 mg/dL Normal 74-106 [facility] Comment on above: Performed By: #### C MP #### [facility] [place] [facility] [address] [place] [address] Dr. Marco Greer Potassium [Moles/Vol] 4.3 mmol/L Normal 3.5-5.1 [facility] Comment on above: Performed By: #### C MP #### [facility] [place] [facility] [address] [place] [address] Dr. Marco Greer Protein [Mass/Vol] 6.9 g/dL Normal 6.4-8.2 [facility] Comment on above: Performed By: #### C MP #### [facility] [place] [facility] [address] [place] [address] Dr. Marco Greer Sodium [Moles/Vol] 133 mmol/L Critically low 136-145 [facility] Comment on above: Performed By: #### C MP #### [facility] [place] [facility] [address] [place] [address] Dr. Marco Greer Urea nitrogen [Mass/Vol] 10.0 mg/dL Normal 7.0-18.0 [facility] Comment on above: Performed By: #### C MP #### [facility] [place] [facility] [address] [address] [address] Marco Greer Urea nitrogen/Creatinine [Mass ratio] 12.5 mg/mg Normal [facility] Comment on above: Performed By: #### C MP #### [facility] [place] [facility] [address] [place], [place] [address] Dr. Marco Greer SED RATE [facility] 2021 SED RATE 38 mm/hr Critically high <=30 [facility] [place] Comment on above: Performed By: #### C MADM, BNP, CMP #### [facility] [place] [facility] [address] [place], [place] [address] Dr. Marco Greer Vital Signs Date Time Vital Sign Value Performing Clinician Facility 12-06-2023 11:46-0400 Body height 162.56 cm MD Jonathon Kaur Work Phone: [facility] 12-06-2023 11:46-0400 Body mass index (BMI) [Ratio] 21.5 kg/m2 MD Jonathon Kaur Work Phone: [facility] 12-06-2023 11:46-0400 Body temperature 97.6 [degF] MD Jonathon Kaur Work Phone: [facility] 12-06-2023 11:46-0400 Body weight 57 kg MD Jonathon Kaur Work Phone: [facility] 12-06-2023 11:46-0400 Diastolic blood pressure 82 mm[Hg] MD Jonathon Kaur Work Phone: [facility] 12-06-2023 11:46-0400 Heart rate 50 /min MD Jonathon Kaur Work Phone: [facility] 12-06-2023 11:46-0400 Respiratory rate 16 /min MD Jonathon Kaur Work Phone: [facility] 12-06-2023 11:46-0400 SaO2% (BldA) [Mass fraction] 95 % MD Jonathon Kaur Work Phone: [facility] 12-06-2023 11:46-0400 Systolic blood pressure 124 mm[Hg] MD Jonathon Kaur Work Phone: [facility] 05-25-2023 12:53-0400 Body height 162.56 cm MD Jonathon Kaur Work Phone: [facility] 05-25-2023 12:53-0400 Body mass index (BMI) [Ratio] 21.6 kg/m2 MD Jonathon Kaur Work Phone: [facility] 05-25-2023 12:53-0400 Body temperature 96.4 [degF] MD Jonathon Kaur Work Phone: [facility] 05-25-2023 12:53-0400 Body weight 57.15 kg MD Jonathon Kaur Work Phone: [facility] 05-25-2023 12:53-0400 Diastolic blood pressure 68 mm[Hg] MD Jonathon Kaur Work Phone: [facility] 05-25-2023 12:53-0400 Heart rate 60 /min MD Jonathon Kaur Work Phone: [facility] 05-25-2023 12:53-0400 SaO2% (BldA) [Mass fraction] 99 % MD Jonathon Kaur Work Phone: [facility] 05-25-2023 12:53-0400 Systolic blood pressure 120 mm[Hg] MD Jonathon Kaur Work Phone: [facility] 04-21-2022 13:15-0500 Body height 162.56 cm Blake Zhao Other [employer] [facility] [employer] Other 04-21-2022 13:15-0500 Body mass index (BMI) [Ratio] 20.42 kg/m2 Blake Zhao Other [facility] Other 04-21-2022 13:15-0500 Body temperature 96.3 [degF] Blake Zhao Other [facility] Other 04-21-2022 13:15-0500 Body weight 53.98 kg Blake Buehrer Other [facility] Other 04-21-2022 13:15-0500 Diastolic blood pressure 60 mm[Hg] Blake Buehrer Other [facility] Other 04-21-2022 13:15-0500 SaO2% (BldA) [Mass fraction] 98 % Blake Buehrer Other [facility] Other 04-21-2022 13:15-0500 Systolic blood pressure 160 mm[Hg] Blake Buehrer Other [facility] Other 04-06-2022 10:45-0500 Body height 162.56 cm Blake Buehrer Other [facility] Other 04-06-2022 10:45-0500 Body mass index (BMI) [Ratio] 20.42 kg/m2 Blake Buehrer Other [facility] Other 04-06-2022 10:45-0500 Body temperature 97.8 [degF] Blake Buehrer Other [facility] Other 04-06-2022 10:45-0500 Body weight 53.98 kg Blake Buehrer Other [facility] Other 04-06-2022 10:45-0500 Diastolic blood pressure 78 mm[Hg] Blake Buehrer Other [facility] Other 04-06-2022 10:45-0500 SaO2% (BldA) [Mass fraction] 95 % Blake Buehrer Other [facility] Other 04-06-2022 10:45-0500 Systolic blood pressure 112 mm[Hg] Blake Zhao Other [facility] Other 03-27-2022 11:52-0500 Body height 162.56 cm Jonathon A Naderer Work Phone: AQ-Rllfofhmje-Cyru[address] [place] [address] Work Phone: 03-27-2022 11:52-0500 Body mass index (BMI) [Ratio] 20.43 kg/m2 Jonathon A Naderer Work Phone: PR-Lcpmsajzjl-Xblcwp [place] [address] Work Phone: 03-27-2022 11:52-0500 Body surface area Derived from formula 1.57 m2 Jonathon A Naderer Work Phone: SE-Iejeuypjwn-[place] [address] Work Phone: 03-27-2022 11:52-0500 Body weight 53.98 kg Jonathon A Naderer Work Phone: RE-Ffimpzbjwx-Juyozj [address] Work Phone: 03-27-2022 11:52-0500 Diastolic blood pressure 70 mm[Hg] Jonathon A Naderer Work Phone: SB-Fiarycifoo-Rroeiq [place] [address] Work Phone: 03-27-2022 11:52-0500 Heart rate 60 /min Jonathon A Naderer Work Phone: ZI-Qvxazpbtyf-Zcheso [place] [address] Work Phone: 03-27-2022 11:52-0500 Systolic blood pressure 168 mm[Hg] Jonathon A Naderer Work Phone: JR-Kdyeuigxcs-Iiural [address] Work Phone: 02-27-2022 13:19-0500 Body height 162.56 cm Jonathon A Naderer Work Phone: DK-Ojveblnfga-GMN [facility] [address] [place] Work Phone: 02-27-2022 13:19-0500 Body mass index (BMI) [Ratio] 20.79 kg/m2 Jonathon Leesr Work Phone: KK-Rcsiiulxwc-TTC [facility] [address] [place] Work Phone: 02-27-2022 13:19-0500 Body surface area Derived from formula 1.58 m2 Jonathon Leesr Work Phone: YZ-Pyjfeijchp-GXM [facility] [address] [place] Work Phone: 02-27-2022 13:19-0500 Body weight 54.94 kg Jonathon Kaur Work Phone: MU-Yjgqkojyqt-YGT [facility] [address] [place] Work Phone: 02-27-2022 13:19-0500 Diastolic blood pressure 63 mm[Hg] Jonathon Leesr Work Phone: AO-Rxxqaksvgk-INA [facility] [address] [place] Work Phone: 02-27-2022 13:19-0500 Heart rate 61 /min Jonathon Kaur Work Phone: GF-Gqhamcgece-HDI [facility] [address] [place] Work Phone: 02-27-2022 13:19-0500 SaO2% (BldA) [Mass fraction] 95 % Jonathon Kaur Work Phone: TB-Umoqnjnpwa-GMG [facility] [address] [place] Work Phone: 02-27-2022 13:19-0500 Systolic blood pressure 174 mm[Hg] Jonathon Leesr Work Phone: FH-Lmdoyoijyy-HBF [facility] [address] [place] Work Phone: 02-27-2022 13:19-0500 0 1 Jonathon Leesr Work Phone: PA-Pcvsyrioxz-GNT [facility] [address] [place] Work Phone: Comment on above: [employer] 02-17-2022 13:53-0500 Body height 162.56 cm Jonathon Shaffer Naderer Work Phone: -[facility] Work Phone: 02-17-2022 13:53-0500 Body mass index (BMI) [Ratio] 21.89 kg/m2 Jonathon Shaffer Naderer Work Phone: -[facility] Work Phone: 02-17-2022 13:53-0500 Body surface area Derived from formula 1.62 m2 Jonathon Shaffer Naderer Work Phone: -[facility] Work Phone: 02-17-2022 13:53-0500 Body weight 57.83 kg Jonathon Shaffer Naderer Work Phone: -[facility] Work Phone: 02-17-2022 13:53-0500 Diastolic blood pressure 90 mm[Hg] Jonathon Shaffer Naderer Work Phone: -[facility] Work Phone: 02-17-2022 13:53-0500 Heart rate 54 /min Jonathon Shaffer Naderer Work Phone: -[facility] Work Phone: 02-17-2022 13:53-0500 Systolic blood pressure 132 mm[Hg] Jonathon Shaffer Naderer Work Phone: -[facility] Work Phone: 02-13-2022 11:46-0500 Diastolic blood pressure 84 mm[Hg] Jonathon Shaffer Naderer Work Phone: [facility] [address] Work Phone: 02-13-2022 11:46-0500 Systolic blood pressure 192 mm[Hg] Jonathon Shaffer Naderer Work Phone: [facility] [address] [place] Work Phone: 02-13-2022 11:20-0500 Diastolic blood pressure 62 mm[Hg] Jonathon Edmund Naderer Work Phone: [facility] [address] Work Phone: 02-13-2022 11:20-0500 Systolic blood pressure 200 mm[Hg] Jonathon Edmund Naderer Work Phone: [facility] [address] [place] Work Phone: 02-13-2022 11:15-0500 Body height 162.56 cm Jonathon Edmund Naderer Work Phone: [facility] [address] [place] Work Phone: 02-13-2022 11:15-0500 Body mass index (BMI) [Ratio] 21.46 kg/m2 Jonathon Edmund Naderer Work Phone: [facility] [facility] 250 DO Work Phone: 02-13-2022 11:15-0500 Body surface area Derived from formula 1.6 m2 Jonathon Edmund Naderer Work Phone: [facility] 250 DO Work Phone: 02-13-2022 11:15-0500 Body weight 56.7 kg Jonathon Edmund Naderer Work Phone: [facility] 250 DO Work Phone: 02-13-2022 11:15-0500 Diastolic blood pressure 70 mm[Hg] Jonathon Shaffer Naderer Work Phone: [facility] 250 DO Work Phone: 02-13-2022 11:15-0500 Heart rate 61 /min Jonathon Shaffer Naderer Work Phone: [facility] 250 DO Work Phone: 02-13-2022 11:15-0500 Systolic blood pressure 204 mm[Hg] Jonathon Kaur Work Phone: [facility] 250 DO Work Phone: 01-28-2022 17:01-0500 Body temperature 98.6 [degF] Pcp Unknown [facility] 01-28-2022 17:01-0500 Diastolic blood pressure 68 mm[Hg] Pcp Unknown [facility] 01-28-2022 17:01-0500 Heart rate 75 /min Pcp Unknown [facility] 01-28-2022 17:01-0500 Respiratory rate 18 /min Pcp Unknown [facility] 01-28-2022 17:01-0500 SaO2% (BldA) [Mass fraction] 97 % Pcp Unknown [facility] 01-28-2022 17:01-0500 Systolic blood pressure 148 mm[Hg] Pcp Unknown [facility] 01-28-2022 03:27-0500 Body weight 62.2 kg Pcp Unknown [facility] 01-06-2022 08:00-0400 Body temperature 97.2 [degF] PHYSICIAN NO [facility] 01-06-2022 08:00-0400 Diastolic blood pressure 56 mm[Hg] PHYSICIAN NO [facility] 01-06-2022 08:00-0400 Heart rate 74 /min PHYSICIAN NO [facility] 01-06-2022 08:00-0400 Respiratory rate 18 /min PHYSICIAN NO [facility] 01-06-2022 08:00-0400 SaO2% (BldA) [Mass fraction] 97 % PHYSICIAN NO [facility] 01-06-2022 08:00-0400 Systolic blood pressure 125 mm[Hg] PHYSICIAN NO [facility] 01-06-2022 06:00-0400 Body weight 58.9 kg PHYSICIAN NO [facility] 01-02-2022 18:59-0400 Body height 162.56 cm PHYSICIAN NO [facility] Encounters Encounter Date Encounter Type Care Provider Facility Start: 12-06-2023 End: 12-06-2023 ambulatory MD Jonathon Kaur Work Phone: [facility] Work Phone: Start: 12-06-2023 End: 12-06-2023 Patient encounter procedure MD Jonathon Kaur Work Phone: [facility] Work Phone: Start: 10-18-2023 End: 10-18-2023 ambulatory [facility] Start: 10-12-2023 Non-patient / Non-visit MD Jonathon Kaur Work Phone: [facility] Work Phone: Start: 09-30-2023 End: 09-30-2023 ambulatory [facility] Start: 09-23-2023 End: 09-23-2023 Patient encounter procedure MD Jonathon Kaur Work Phone: [facility] [address] Work Phone: Start: 09-23-2023 End: 09-23-2023 ambulatory MD Jonathon Kaur Work Phone: [facility] Work Phone: Start: 07-19-2023 End: 07-19-2023 ambulatory [facility] Start: 07-14-2023 End: 07-14-2023 ambulatory JONATHON KAUR Not Available Start: 06-03-2023 End: 06-03-2023 Patient encounter procedure MD Jonathon Kaur Work Phone: [facility] [address] Work Phone: Start: 06-03-2023 End: 06-03-2023 ambulatory MD Jonathon Kaur Work Phone: [facility] Work Phone: Start: 05-25-2023 End: 05-25-2023 Patient encounter procedure MD Jonathon Kaur Work Phone: [facility] V[facility] Surgery Work Phone: Start: 05-25-2023 End: 05-25-2023 ambulatory Blake Zhao Facility:[facility] Start: 12-21-2022 End: 12-21-2022 ambulatory [facility] Start: 12-15-2022 End: 12-15-2022 Patient encounter procedure MD Jonathon Kaur Work Phone: [facility] [address] Work Phone: Start: 12-15-2022 End: 12-15-2022 ambulatory MD Jonathon Kaur Work Phone: [facility] Work Phone: Start: 11-24-2022 End: 11-24-2022 ambulatory MD Jonathon Kaur Work Phone: [facility] Work Phone: Start: 11-24-2022 End: 11-24-2022 Patient encounter procedure MD Jonathon Kaur Work Phone: [facility] Start: 08-18-2022 Rx Renewal Jonathon Kaur Work Phone: [facility] Work Phone: Start: 06-26-2022 End: 06-27-[address] DAPHNE MCGUIRE Facility: Start: 05-20-2022 Rx Renewal Jonathon Kaur Work Phone: [facility] Work Phone: Start: 04-21-2022 End: 04-21-2022 ambulatory Blake Zhao Other [facility] Other Start: 04-21-2022 Office outpatient visit 25 minutes Blake Zhao [facility] Vascular Surgery Start: 04-13-2022 ambulatory Radha Copeland M.D. Facility : Start: 04-06-2022 End: 04-06-2022 ambulatory Blake Zhao Other [facility] Other Start: 04-06-2022 Office outpatient ne w 45 minutes Blake Zhao [facility] Vascular Surgery Start: 04-03-2022 End: 04-04-[address] DOCTOR PABON Facility:[facility] Start: 04-01-2022 Patient encounter procedure Jonathon Kaur Work Phone: [facility] 250 DO Work Phone: Start: 04-01-[address] Miri Hunt ty: Start: 03-27-2022 Office outpatient visit 25 minutes Jonathon Kaur Work Phone: [facility]-Ypsgscqccz-Fbuseuzq 250 DO Work Phone: Start: 03-27-[address] Miri Hunt ty: Start: 03-11-2022 End: 03-12-[address] JONATHON KAUR Facility: Start: 03-04-2022 End: 03-04-2022 ambulatory MD Jonathon Kaur Work Phone: [facility] Work Phone: Start: 03-04-2022 End: 03-04-2022 Patient encounter procedure MD Jonathon Kaur Work Phone: [facility] [address] Start: 02-27-2022 ambulatory ALBIN ABU-CHRISTIAN Facility :[facility] Start: 02-27-2022 Postop follow up vis it related to original px Jonathon Kaur Work Phone: ZZ-Srjiwnlegn-TMZ [place] [address] [place] Work Phone: Start: 02-27-2022 ambulatory ALBIN ABU-CHRISTIAN Facility :[facility] Start: 02-27-2022 ambulatory ALBIN ABU-CHRISTIAN Facility :[facility] Start: 02-24-2022 End: 02-24-2022 Departed Referred MD Jonathon Kaur Work Phone: [facility] [address] [place] Start: 02-17-2022 Office outpatient ne w 45 minutes Jonathon Kaur Work Phone: -[facility] Work Phone: Start: 02-17-[address] Kvng santana Graham Facility:[id number] Start: 02-13-2022 Office outpatient ne w 45 minutes Jonathon Kaur Work Phone: -[facility] 250 DO Work Phone: Start: 02-13-[address] Miri Hunt ty: Start: 02-10-2022 End: 02-11-[address] JONATHON KAUR Facility:[facility] Start: 01-06-2022 End: 01-06-2022 ambulatory UNKNOWN PROVIDER Facility:[facility] Start: 01-06-2022 End: 01-28-2022 Evaluation and management of inpatient Albin Abu-Christian [facility] [id number] Rm [id number] Start: 01-02-2022 End: 01-06-2022 Evaluation and management of inpatient PHYSICIAN NO [facility] [place] [facility] Start: 01-02-2022 End: 01-02-[address] BUD BROUSSARD Facility:[facility] Start: 11-26-2021 End: 11-26-2021 Patient encounter procedure PHYSICIAN NO [facility] [address] Start: 08-25-2021 End: 08-26-[address] DOCTOR PABON Facility:[facility] Procedures Date Procedure Procedure Detail Performing Clinician Start: 12-06-2023 Doppler ultrasonogra phy of bilateral carotid arteries MD Jonathon Kaur Work Phone: Start: 05-25-2023 Doppler ultrasonogra phy of bilateral [...] Phone: Surgical repair of u pper extremity Jonathon Kaur Work Phone: NEGATED: Highlighted row has not occurred! Total colonoscopy Jonathon Kaur Work Phone: Plan of Treatment Date Care Activity Detail Author Start: 12-06-2023 Doppler ultrasonography of bilateral carotid arteries US carotid doppler [facility] Start: 06-19-2022 FUV, Provider: Miri Hill, Status: Pen, Time: 3:00 PM FUV, Provider: Miri Hill, Status: Pen, Time: 3:[address] [facility]-Sanders 250 DO Work Phone: Start: 04-03-2022 NPV, Provider: Sivakumar Corbett, Status: Pen, Time: 9:15 AM NPV, Provider: Sivakumar Corbett, Status: Pen, Time: 9:[address] [facility] 250 DO Work Phone: Start: 04-03-2022 Patient encounter procedure [facility] [place] Start: 04-02-2022 EVENT JEREMY, Provider: DEV PEPPER CLAIMS REPRESENTATIVE 1,[id number], Status: Pen, Time: 1:30 PM EVENT JEREMY, Provider: DEV PEPPER CLAIMS REPRESENTATIVE 1,[id number], Status: Pen, Time: 1:30 PM [facility]-Ezyzhpwsig-Bgrtay [place] 250 DO Work Phone: Start: 02-27-2022 Patient encounter procedure [facility] Start: 02-27-2022 POV, Provider: Albin Pierce, Status: Pen, Time: 1:00 PM POV, Provider: Albin Pierce, Status: Pen, Time: 1:00 PM -[facility] 250 DO Work Phone: Start: 02-17-2022 Patient encounter procedure [facility] Cardiology [place] Start: 02-17-2022 NPV, Provider: Kvng Romo, Status: Pen, Time: 1:45 PM NPV, Provider: Kvng Romo, Status: Pen, Time: 1:45 PM -[facility] 250 DO Work Phone: Start: 02-17-2022 Patient encounter procedure [facility] Start: 02-13-2022 Patient encounter procedure [facility] Start: 01-12-2022 End: 01-13-2023 Bisacodyl Rectal 10 mg Suppository Daily PRN ; Suppository (DULCOLAX)DOSE = 10 mg Rectal Daily, PRN Constipation Start: 12-Jan-2022 End: 12-Jan-2023 Ordered: 12-Jan-2022 Jillian Hagan Intent [facility] Start: 01-08-2022 Preprocedural cardiovascular examination Preprocedural cardiovascular examination Date: 08-Jan-2022 [facility] Start: 01-06-2022 Cardiac ischemia Cardiac ischemia Date: 06-Jan-2022 [facility] Start: 01-06-2022 Carotid stenosis Carotid stenosis Date: 06-Jan-2022 [facility] Start: 01-06-2022 Pre-operative cardiovascular examination [facility] Start: 01-06-2022 PVD (peripheral vascular disease) PVD (peripheral vascular disease) Date: 06-Jan-2022 [facility] Start: 01-06-2022 [facility] Start: 01-05-2022 [facility] Start: 01-02-2022 Referral to dental mechanic [facility] Start: 01-02-2022 Hospital admission [facility] Start: 01-02-2022 Fluoroscopy of Left Heart using Low Osmolar Contrast Fluoroscopy of Left Heart using Low Osmolar Contrast [facility] Start: 01-02-2022 Fluoroscopy of Multiple Coronary Arteries using Low Osmolar Contrast Fluoroscopy of Multiple Coronary Arteries using Low Osmolar Contrast [facility] Start: 01-02-2022 Measurement of Cardiac Sampling and Pressure, Left Heart, Percutaneous Approach Measurement of Cardiac Sampling and Pressure, Left Heart, Percutaneous Approach [facility] Patient referral [facility] Work Phone: US.doppler Carotid arteries - bilateral [facility] Payers Date Payer Category Payer Self-pay [id number] 2019 Unknown 2010 Unknown [id number] 1959 Medicare [id number] 1959 Unknown [id number] 1942 Unknown [id number] 2.16. [id number] 1942 Unknown [id number] 2.16.84 0.1.263984.3.579.2.593 1942 Unknown [id number] 2.16.84 0.1.674715.3.579.2.593 1942 Unknown [id number] 2.16.84 0.1.098221.3.579.2.593 1942 Unknown [id number] 2.16.84 0.1.511876.3.579.2.593 1942 Unknown [id number] 2.16.84 0.1.538703.3.579.2.593 1942 Unknown [id number] 2.16.84 0.1.887850.3.579.2.593 1942 Unknown [id number] 2.16. 840.1.108993.3.579.2.356 1942 Unknown [id number] 2.16. 840.1.574953.3.579.2.356 1942 Unknown [id number] 2.16. 840.1.105128.3.579.2.356 1942 Unknown [id number] 2.16. 840.1.754196.3.579.2.356 1942 Unknown [id number] 2.16. 840.1.637988.3.579.2.356 1942 Unknown [id number] 2.16. 840.1.581655.3.579.2.356 1942 Unknown [id number] 2.16. 840.1.008677.3.579.2.356 1942 Unknown [id number] 2.16. 840.1.577071.3.579.2.356 1942 Unknown [id number] 2.16.84 0.1.414831.3.579.2.1259 Unknown [id number] 2.16.8 40.1.086437.3.579.2.531 Unknown [id number] 2.16.8 40.1.905430.3.579.2.531 Unknown [id number] 2.16.8 40.1.890175.3.579.2.531 Unknown [id number] 2.16.8 40.1.159925.3.579.2.531 Unknown [id number] 2.16.8 40.1.620259.3.579.2.531 Social History Date Type Detail Facility Start: 01-03-2022 End: 01-03-2022 Tobacco smoking status PAIS Ex-smoker (finding) [facility] Start: 1940 Sex Assigned At Female [facility] Tobacco smoking consumption unknown [facility] No alcohol use No alcohol use -[facility] 250 DO Work Phone: Comment on above: 1 pack daily- Quit i n 1990s; Sex Assigned At Sex Assigned At [facility] Other Goals Date Patient Goal Desired Activity /State Functional Status Date Assessment Result Facility 01-02-2022 Functional status Patient at Baseline [facility] Work Phone: Bladder: fully continent [facility] Mental Status Date Assessment Result Facility 01-17-2022 Mentally alert [facility] 01-02-2022 Cognitive function Cognitive Sta tus Patient at Baseline [facility] Work Phone: Clinical Notes 01-02-2022 to 10-18-2023 Note Date & Type Note Facility 10-18-2023 Note [facility] Cardiology Clinic Note Chief Complaint: Patient here for 6 mo follow up CAD, chronic systolic heart failure, and hypertension. Had routine labs last week with lipid panel. She presented to [facility] ED last month for BP over 200 systolic. Denies chest pain, SOB, and palpitations. Chief Complaint: hospital Wednesday, BP was over 224 on top, started new BP med, sodium was low, thyroid was high. HPI: Cely Finch is a 83 y.o. female with a history of hypertension and dyslipidemia and recent coronary artery bypass graft surgery here to establish care. In December, she was feeling unwell, she was brought to the [facility] and found to have a non-ST elevation myocardial infarction. She was subsequently transferred to [facility] for cardiac catheterization and then [facility] for bypass surgery. She has been doing well since. She currently denies exertional symptoms UPDATE 07/19/2023 She presented to [facility] ED last month for BP over 200 systolic. Denies chest pain, SOB, and palpitations. Currently she feels well. She has had no significant symptoms since I last saw her. UPDATE 10/18/2023: Feels okay Her PCP decreased her lisinopril due to low diastolic blood pressure She apparently has hyponatremia and is given salt tablets as well as encouraged to add salt at the table Cardiology ROS: Review of Systems Gastrointestinal: Positive [...] at bedtime., Disp: , Rfl: carvedilol (Coreg) 12.5 mg tablet, Take 1 tablet (12.5 mg) by mouth with breakfast and with evening meal. STOP METOPROLOL, Disp: 180 tablet, Rfl: 3 clopidogrel (Plavix) 75 mg tablet, Take 75 mg by mouth in the morning., Disp: , Rfl: inFLIXimab (Remicade) 100 mg injection, Infuse into a venous catheter., Disp: , Rfl: levothyroxine (Synthroid, Levoxyl) 100 mcg tablet, Take 100 mcg by mouth in the morning., Disp: , Rfl: lisinopril 20 mg tablet, Take 10 mg by mouth in the morning., Disp: , Rfl: meclizine (Antivert) 12.5 mg tablet, Take 12.5 mg by mouth every 6 (six) hours if needed for nausea., Disp: , Rfl: sodium chloride 1,000 mg tablet, Take 0.5 g by mouth once daily as directed., Disp: , Rfl: carvedilol (Coreg) 25 mg tablet, Take 25 mg by mouth with breakfast and with evening meal., Disp: , Rfl: metoprolol succinate XL (Toprol-XL) 25 mg 24 hr tablet, Take 12.5 mg by mouth in the morning. Do not crush or chew., Disp: , Rfl: Last Recorded Vitals BP (!) 184/72 (BP Location: Left arm, Patient Position: Sitting) Pulse 61 Ht 1.626 m (5' 4 ) Wt [...] to distal 60 to 70% stenosis Circumflex (more content not included)... [facility] 09-30-2023 Note [facility] Cardiology Clinic Note Chief Complaint: Patient here for 6 mo follow up CAD, chronic systolic heart failure, and hypertension. Had routine labs last week with lipid panel. She presented to [facility] ED last month for BP over 200 systolic. Denies chest pain, SOB, and palpitations. Chief Complaint: hospital Wednesday, BP was over 224 on top, started new BP med, sodium was low, thyroid was high. HPI: Cely Finch is a 83 y.o. female with a history of hypertension and dyslipidemia and recent coronary artery bypass graft surgery here to establish care. In December, she was feeling unwell, she was brought to the [facility] and found to have a non-ST elevation myocardial infarction. She was subsequently transferred to [facility] for cardiac catheterization and then [facility] for bypass surgery. She has been doing well since. She currently denies exertional symptoms UPDATE 07/19/2023 She presented to [facility] ED last month for BP over 200 [...] left anterior descend (more content not included)... [facility] 07-19-2023 Note [facility] Cardiology Clinic Note Chief Complaint: Patient here for 6 mo follow up CAD, chronic systolic heart failure, and hypertension. Had routine labs last week with lipid panel. She presented to [facility] ED last month for BP over 200 systolic. Denies chest pain, SOB, and palpitations. HPI: Cely Finch is a 83 y.o. female with a history of hypertension and dyslipidemia and recent coronary artery bypass graft surgery here to establish care. In December, she was feeling unwell, she was brought to the [facility] and found to have a non-ST elevation myocardial infarction. She was subsequently transferred to [facility] for cardiac catheterization and then [facility] for bypass surgery. She has been doing well since. She currently denies exertional symptoms UPDATE 07/19/2023 She presented to [facility] ED last month for BP over 200 [...] lateral segment lef (more content not included)... [facility] 12-21-2022 Note Cardiology Clinic No te Subjective Cely Finch is a 82 y.o. year old female patient with history of hypertension and dyslipidemia and coronary artery disease status post recent 3-vessel coronary artery bypass graft (12/2021) seen in follow-up. 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 Atherosclerosis of [place] coronary artery of [place] heart Essential hypertension, benign Heart failure (CMS/HCC) Hyperlipidemia Hyponatremia Other abnormalities of gait and mobility Chronic arthritis Rheumatoid arthritis (CMS/HCC) S/P CABG (coronary artery bypass graft) Family History Problem Relation Name Age of Onset Valvular heart disease Mother Heart attack Father Heart attack Brother Coronary artery disease Brother Social History Tobacco Use Smoking status: Former Types: Cigarettes Smokeless tobacco: Never Substance Use Topics Alcohol use: Not Currently HPI In December 2022, she was feeling unwell, she was brought to the [facility] and found to have a non-ST elevation myocardial infarction. She was subsequently transferred to [facility] for cardiac catheterization and then [facility] for bypass surgery. Update: 12/21/2022 Seen in [...] for this visit: Coronary artery disease involving [place] coronary artery of [place] heart without angina pectoris Hx of CABG Chronic systolic heart failure (CMS/HCC) Essential hypertension Mixed hyperlipidemia Plan 1. Coronary artery disease (more content not included)... [facility] 12-21-2022 Note Patient here for 6 [...] All other systems reviewed and are negative. [facility] 04-21-2022 Evaluation note Encounter Date Diagnosis [...] 6 months with a repeat duplex examination. [facility] Other 01-23-2023 Evaluation note* Encounter Date Diagnosis Assessment Notes Treatment Notes Treatment Clinical Notes Mar, Asymptomatic stenosis of right carotid artery (ICD-10 - I65.21) 23 Mar, 2022 Other Right carotid stenosis greater than 70% [...] after discussion if her anatomy is acceptable. [facility] Other 10-31-2022 History of Present illness Narrative* I reviewed her at the clinic today. She underwent coronary bypass grafting x3 on January 12 background of impaired left ventricular function. She has made an excellent recovery. At review today she had no complaints. * She has been followed up at the cardiology clinic and is keen to start rehab. MR-Bzvilwpuxd-HWT T[place] Sanchez [address] [place] Work Phone: 1(762) 301-811010-31-2022 Reason for referral (narrative)* Reason for Referral: OT re-eval s/p CABG x3 (01/12) [facility]10-24-2022 Progress note Author Vandana Torres [facility] January 05, 2022 11:26am Note Date/Time January 05, 2022 1 1:26am [facility] [address] [place] [address] Hospitalist Progress Note Signed Patient: Cely Finch MR#: [id number] : 1940 Acct:[id number] Age/Sex: 81 / F Adm Date: 2 Loc: Room: [address] [place] [address] Type: ADM IN Attending Dr: Vandana Torres MD Copies to: ~ Date of Service: 01/05/2022 Subjective Subjective Narrative: Patient examined bedside with no overnight event. She denies any chest pain. Seen by cardiology and scheduled for cardiac cath later today. ASSESSMENT AND PLAN: 81F with PMH of RA, Hypothyroidism who p/w fall to [facility] and transferred for the evaluation and treatment of possible NSTEMI NSTEMI with Cardiomyopathy No chest pain today at rest, Feeling better The patient presents with chest pain after a fall. Troponin is elevated up to 8000 CXR ([facility] ED) reported as no acute cardiopulmonary abnormality [...] with right elbow laceration Right elbow XR ([facility]) reported as no Fx CT brain ([facility]) reported no acute intracranial process CT cervical spine without contrast ([facility]) reported DJD no acutebony injury Vit [...] PRN Chest Pain Ondansetron HCl 4 mg 10/21/22 19:49 Ondansetron 4 Mg/2 Ml Vial IV-PUSH [...] signed by Vandana Torres MD> 01/05/22 [address] [facility] Work Phone: 1(650) 855-466310-24-2022 Progress note Author Gold Patrick [facility] January 05, 2022 11:26am Note Date/Time January 05, 2022 1 1:26am [facility] [address] [place] [address] Cardiology Progress Note Signed Patient: Cely Finch MR#: [id number] : 1940 Acct:[id number] Age/Sex: 81 / F Adm Date: 2 Loc: Room: [address] [place] [address] Type: ADM IN Attending Dr: Vandana Torres [...] MPV Neut % (Auto) Lymph % (Auto) [place] % (Auto) Eos % (Auto) Baso % (Auto) Neut # (Auto) Lymph # (Auto) [place] # (Auto) Eos # (Auto) Baso # [...] % (Auto) 61.8 Lymph % (Auto) 25.1 [place] % (Auto) 9.2 Eos % (Auto) 2.9 Baso % (Auto) 1.0 Neut # (Auto) 4.9 Lymph # (Auto) 2.0 [place] # (Auto) 0.7 Eos # (Auto) 0.2 [...] MPV Neut % (Auto) Lymph % (Auto) [place] % (Auto) Eos % (Auto) Baso % (Auto) Neut # (Auto) Lymph # (Auto) [place] # (Auto) Eos # (Auto) Baso # [...] By: <Electronically signed by MD Gold Patrick> 01/05/22 [address] [facility] Work Phone: 1([phone]) 118-275010-24-2022 [facility] Progress note Author Jaya Bae [facility] January 04, 2022 6:30pm Note Date/Time January 04, 2022 6 :19pm [facility] [address] [place] [address] Hospitalist Progress Note Signed Patient: Cely Finch MR#: [id number] : 1940 Acct:[id number] Age/Sex: 81 / F Adm Date: 2 Loc: Room: [address] [place] [address] Type: ADM IN Attending Dr: Jaya Bae MD Copies to: ~ Date of Service: 01/04/2022 Subjective Subjective Narrative: Hospitalist Progress Note ASSESSMENT AND PLAN: 81F with PMH of RA, Hypothyroidism who p/w fall to [facility] and transferred for the evaluation and treatment of possible NSTEMI NSTEMI with Cardiomyopathy No chest pain today at rest, Feeling better The patient presents with chest pain after a fall. Troponin is elevated up to 8000 CXR ([facility] ED) reported as no acute cardiopulmonary abnormality Serial EKG shows NSR, no acute changes LDL 133, HDL 49 Mg wnl Echocardiogram shows EF 40%, severe hypokinesis of the mid to distal anteroseptal wall and apex, Nitroglycerin prn Morphine prn Telemetry Antiplatelet: Aspirin Anticoagulation: Heparin Drip Beta kristal therapy Cardiology was consulted, recommendation appreciated. For [facility] on Wednesday Mechanical Fall with right elbow laceration Right elbow XR ([facility]) reported as no Fx CT brain ([facility]) reported no acute intracranial process CT cervical spine without contrast ([facility]) reported DJD no acutebony injury Vit [...] <Electronically signed by Jaya Bae MD> 01/04/22 [address] [facility] Work Phone: 1(402) 378-295510-23-2022 Progress note Author Gold Patrick [facility] January 04, 2022 11:39am Note Date/Time January 04, 2022 1 1:38am [facility] [address] [place] [address] Cardiology Progress Note Signed Patient: Cely Finch MR#: [id number] : 1940 Acct:[id number] Age/Sex: 81 / F Adm Date: 2 Loc: Room: [address] [place] [address] Type: ADM IN Attending Dr: Jaya Bae [...] MPV Neut % (Auto) Lymph % (Auto) [place] % (Auto) Eos % (Auto) Baso % (Auto) Neut # (Auto) Lymph # (Auto) [place] # (Auto) Eos # (Auto) Baso # [...] % (Auto) 53.5 Lymph % (Auto) 32.1 [place] % (Auto) 10.5 Eos % (Auto) 2.9 Baso % (Auto) 1.0 Neut # (Auto) 3.0 Lymph # (Auto) 1.8 [place] # (Auto) 0.6 Eos # (Auto) 0.2 [...] MPV Neut % (Auto) Lymph % (Auto) [place] % (Auto) Eos % (Auto) Baso % (Auto) Neut # (Auto) Lymph # (Auto) [place] # (Auto) Eos # (Auto) Baso # [...] By: <Electronically signed by MD Gold Patrick> 01/04/22 1139 [facility] Work Phone: 1(299) 143-497910-23-2022 Progress note Author Jaya Bae [facility] January 04, 2022 12:52am Note Date/Time January 03, 2022 7 :13pm [facility] [address] [place] [address] Hospitalist Progress Note Signed Patient: Cely Finch MR#: [id number] : 1940 Acct:[id number] Age/Sex: 81 / F Adm Date: 2 Loc: 4 Room: [address] [place] [address] Type: ADM IN Attending Dr: Jaya Bae MD Copies to: ~ Date of Service: 01/03/2022 Subjective Subjective Narrative: Hospitalist Progress Note ASSESSMENT AND PLAN: 81F with PMH of RA, Hypothyroidism who p/w fall to [facility] and transferred for the evaluation and treatment of possible NSTEMI NSTEMI with Cardiomyopathy No chest pain today at rest The patient presents with chest pain after a fall. Troponin is elevated up to 8000 CXR ([facility]) reported as no acute cardiopulmonary abnormality Serial EKG shows NSR, no acute changes LDL 133, HDL 49 Mg wnl Echocardiogram shows EF 40%, severe hypokinesis of the mid to distal anteroseptal wall and apex, Nitroglycerin prn Morphine prn Telemetry Antiplatelet: Aspirin Anticoagulation: Heparin Drip Beta kristal therapy Cardiology was consulted, recommendation appreciated. For C on Wednesday Mechanical Fall with right elbow laceration Right elbow XR ([facility]) reported as no Fx CT brain ([facility]) reported no acute intracranial process CT cervical spine without contrast ([facility]) reported DJD no acutebony injury Vit [...] bed. feeling little . anxious about the [facility] will add xanax as needed ROS: Denies any fever, abdominal pain Plan of care Discussed with: the medical team, the patient Exam Physical Exam Vital Signs: Temp Pulse Resp BP Pulse Ox O2 Del Method 36.6 C 62 14 127/66 98 Room Air 01/03/22 17:00 10/22/22 17:00 01/03/22 17:00 01/03/22 17:00 01/03/22 17:00 [...] Plan . Documented By: Jaya Bae MD 01/03/22 190 Signed By: <Electronically signed by Jaya Bae MD> 01/04/22 0052 [facility] Work Phone: 1(412) 988-445610-22-2022 Consult note Author Gold Patrick [facility] January 03, 2022 1:48pm Note Date/Time January 03, 2022 1 :39pm [facility] [address] [place] [address] Cardiology Consult Note Signed Patient: Cely Finch MR#: [id number] : 1940 Acct:[id number] Age/Sex: 81 / F Adm Date: 2 Loc: 4P Room: 7A1493-8 Type: ADM IN Attending Dr: Jaya Bae MD Copies to: MD Jaya Vicente MD Mourhaf A Traboulssi, MD~ Cardiology HPI History of Present Illness Consult Date: 01/03/22 Reason for Consult: Cardiac consultation requested for evaluation for acute coronary syndrome HPI: Ms. Finch is a 81 year old female with no prior history of coronary artery disease. She reports yesterday while outside apparently she fell because of theevent. Following that she started to feel some chest pressure, shortness of breath, diaphoresis, lightheadedness and mild nausea. Symptoms did not improve. Symptoms started according to her around 11:00. She went to [facility] where a suspicion of acute coronary syndrome. [...] Lymph # (Auto) 1.3 2.1 (1.00-4.8) x10E3/uL [place] # (Auto) 0.4 0.8 (0.0-0.8) x10E3/uL Eos [...] <Electronically signed by MD Gold Patrick> 01/03/22 134[address] [facility] Work Phone: 1(195) 575-471710-22-2022 History and physical note Author Jaya Bae [facility] January 02, 2022 11:51pm Note Date/Time January 02, 2022 1 1:51pm [facility] [address] [place] [address] Hospitalist H&P Signed Patient: Cely Finch MR#: [id number] : 1940 Acct:[id number] Age/Sex: 81 / F Adm Date: 2 Loc: Room: [address] [place] [address] Type: ADM IN Attending Dr: Kyree Blair MD Copies to: MD Jonathon Smith MD Marwan Wassouf, MD~ HPI DATE OF EXAMINATION: 01/02/22 HISTORY OF PRESENT ILLNESS: This is a pleasant 81F with PMH of RA, Hypothyroidism who p/w fall to [facility] and transferred for the evaluation and treatment [...] elbowafter the fall. as per record form [facility] she had one episode of nausea and vomited there. She denies any vision changes, weakness, loss of consciousness, slurred speech. no exacerbating or alleviating factors. no similar symptoms in the past. Her father at the age of 82 of MT. no historyof any CAD or stress tests. Review of Systems Review of Systems Review of systems: Ten Systems reviewed with the patient, all negative except what stated in the HPI [facility] Vaccinated for COVID-19?: No Medical History (Updated [...] % (Auto) 15.9 % (.) 01/02/22 20:45 [place] % (Auto) 5.5 % (.) 01/02/22 20:45 Eos % (Auto) 0.1 % (.) 01/02/22 20:45 Baso % (Auto) 0.6 % (.) 01/02/22 20:45 Neut # (Auto) 6.3 x10E3/uL (1.8-7.7) 01/02/22 20:45 Lymph # (Auto) 1.3 x10E3/uL (1.00-4.8) 01/02/22 20:45 [place] # (Auto) 0.4 x10E3/uL (0.0-0.8) 01/02/22 20:45 [...] of RA, Hypothyroidism who p/w fall to [facility] ED and transferred for the evaluation and treatment of possible NSTEMI NSTEMI No chest pain now The patient presents with chest pain after a fall . Troponin is elevated She was given aspirin in the ambulance. Her EKG reported some ectopy (no EKG wassent with the patient) she supposed to be on heparin drip but she arrived not onany drip CXR ([facility]) reported as no acute cardiopulmonary abnormality EKG was ordered on arrival (i personally reviewed it) shows NSR@68 bpm no acute changes Nitroglycerin prn Morphine prn Telemetry Antiplatelet: Aspirin Anticoagulation: start Heparin Drip Beta kristal therapy Serial EKGs Repeat Troponin Lipid panel in am Echocardiogram Cardiology consult Mechanical Fall with right elbow laceration Right elbow XR ([facility]) reported as no Fx CT brain ([facility]) reported no acute intracranial process CT cervical spine without contrast ([facility]) reported DJD no acutebony injury Likely [...] 01/02/22 1900 Signed By: <Electronically signed by Jyaa Bae MD> 01/02/22 [address] [facility] Work Phone: 1(753) 911-659010-21-2022 NotePROCEDURE: XR ELBOW RT MIN 3 VIEWS COMPARISON: 09/02/2020 HISTORY: Falls FINDINGS: BONES:Remote traumatic injury of the distal humerus with internal fixation utilizing 2 plates and screws. Severe degenerative changes with othe-tf-bzfx articulation and marginal osteophyte formation. No definite acute fracture or dislocation SOFT TISSUES:Negative. No visible soft tissue swelling. EFFUSION:None visible. OTHER: Limited nonstandard, nonorthogonal projections IMPRESSION: No acute fracture Electronically authenticated by: BUD BROUSSARD Date: 2022-01-02 13:44[facility]10-21-2022 NotePROCEDURE: CT CSPINE WO CON COMPARISON: None. [...] Electronically authenticated by: BUD BROUSSARD Date: 2022-01-02 13:41[facility] Author Vandana Torres [facility] January 06, 2022 1:35pm Note Date/Time January 06, 2022 1 :31pm [facility] [address] [place] [address] Discharge Summary Signed Patient: Cely Finch MR#: [id number] : 1940 Acct:[id number] Age/Sex: 81 / F Adm Date: 2 Loc: Room: [address] [place] [address]: Vandana Torres MD Copies to: [...] facility due to concern for non-ST elevated MT. She initially presented to ER after a fall leading to chest pain with diaphoresis. Her labs showed elevated troponin and was transferred to [facility] for further management. ED she remained pain-free [...] by cardiology. Patient has been accepted at [facility] for bypass surgery and transferred upon availability [...] Other Diet: Low-Fat and Low-Sodium Additional Instructions: [facility] to manage care: - Full code - [...] and as needed. DISCHARGE INSTRUCTIONS FOR CARDIAC SUPERVISOR FORMING DEPARTMENT PHONE NUMBER OF YOUR PHYSICIAN: [phone] PROCEDURE: Heart Cath The following instructions have [...] cold, numb, blue or white, call the dental mechanic immediately. 4. ACTIVITY: You are advised to [...] bottle, follow the instructions on the bottle. [facility] is not responsible for incorrect prescription information [...] by Vandana Torres MD> 01/06/22 1335 [facility] Work Phone: Evaluation note* Diagnosis Onset Date Resolution Status Hypertension acute Hypothyroid acute Ischemic cardiomyopathy acut e NSTEMI (non-ST elevated myocardial infarction) acute Rheumatoid arthritis acute [facility] Work Phone: Evaluation note* Extremities: pitting LE edema R>L; well perfusedNeurological: awake; A&Ox4; no focal defPsychological: Appropriate mood and behaviorSkin: warm and dryINCISIONS: midsternal, R leg SOPHIE, well approx, w/o s/s infectionEyes: clear scleraRespiratory/Thorax: nonlabored; fair inspir effort and cough; mildly diminished bases; on RAsternum stableHead/Neck: neck suppleCardiovascular: RRR, no m/g/rTele: SR 60s-80sepicardial wires cappedGastrointestinal: soft, non-tender, mildly distended, +BS, +BMGenitourinary: voiding w/o difficulty; denies dysuriaMusculoskeletal: ROSSI, generalized weakness and deconditioningENMT: mucous membranes moist, denturesConstitutional: Awake, NAD, alert and cooperative,laying in bed * Skin comment:Skin comment: Right SVG is BOW STRING MAKER Left groin site is SOPHIE Pt has generalized bruising. [facility] assessment information available [facility] Work Phone: Evaluation note* Diagnosis Onset Date Resolution Status Bilateral carotid artery stenosis acute [facility] Work Phone: Evaluation note* Diagnosis Onset Date Resolution Status Occlusion and stenosis of bilateral carotid arteries acute [facility] Work Phone: History general Narrative - Reported* Type Description Date Medical History Hypertension Surgical History cholecystectomy 2012 Surgical History CABG 2021 Hospitalization History See Above GPal Other History of Present illness Jywyznmci89 yo female here to establish care. Recently [...] s/p vein harvesting. No chest pain, SOB, palpitations.-[facility] Chandan [address] DO Work Phone: History of Present illness Narrative* She is here for a new patient visit * She is here for follow-up after being admitted at [facility] after a mechanical fall andshe underwent a coronary artery bypass graft surgery. * She was seen also secondary to hyponatremia she has chronic hyponatremia per records with baseline sodium per the records of 04 12- * She was on urea packets, Lasix as needed and a sodium bicarbonate when she was in the hospital in [place] * In December a urine osmolality was [...] fluid intake with 6 cups per day. [facility] Work Phone: History of Present illness Nbjtyeiwy89 yo female here for follow-up. She was recently participating in cardiac rehab as she is s/p CABGand was noted to have frequent PVCs during that time. She states she was asymptomatic during this episode. She was advised to f/u with cardiology. She was also seen by nephrology who is managing hyponatremia.[facility] DO Work Phone: Hospital Discharge instructionsAmbulatory Orders* DME Home Medical Equipment Time Frame: 1 Day, Location: Determined By Patient Additional Instructions [facility] to manage care: - Full code - [...] and as needed. DISCHARGE INSTRUCTIONS FOR CARDIAC SUPERVISOR FORMING DEPARTMENT PHONE NUMBER OF YOUR PHYSICIAN: [phone] PROCEDURE: Heart Cath The following instructions have [...] cold, numb, blue or white, call the dental mechanic immediately. 4. ACTIVITY: You are advised to [...] bottle, follow the instructions on the bottle. [facility] is not responsible for incorrect prescription information provided by the patient during their visit. Do not stop your medications without consulting your health care provider. Please take the list with you to your next doctor's appointment.[facility] Work Phone: Hospital Discharge instructions* Activity:Weight- bearing Instructions: weight-bearing as tolerated. Other activity instructions: As part of your recovery process you will be referred to cardiac rehab as an outpatient. After your discharge from the hospital and home recovery period, you will have your follow up visit with your dental mechanic. They will clear you to exercise and further refer you to an outpatient cardiac rehab facility. Please call [facility] [place] [facility] at [phone] to set up future appointments. * Labs 1 (Modify Template):Lab Test(s): Basic Metabolic Panel, CBC, MagnesiumDate To Be Drawn: Twice weekly on Mondays and while in correction/ rehab * Oxygen:Other Instructions incentive spirometer 10x/ hr while awake. * Additional Orders:Vital Signs: Every shiftWeight: daily weights; keep a log and bring to all of your appointmentsAdditional Instructions: Keep Your Move in the Tube!! And think of a Ricardo Senior dinosaur! Please refer to the Move in [...] obtained from the Primary Care Provider or Improvement Engineer. -For severe chest pain, extreme shortness of [...] of the previous wires. No NSAIDs (common jotm-dxe-plgwxhv NSAIDs are ibuprofen/Motrin/Advil, naproxen/Naprosyn/Aleve) for 3 months after cardiac surgery; ifNSAIDs needed after 3 months, clear use with dental mechanic before starting. * Wound Instructions:- Cleanse incisions with soap and water daily. No dressing, leave open to air. No lotions, creams or tub soaks/swimming until healed. * Call Provider If:- Redness, drainage or other problems with incisions, notify the Cardiac Surgeon'soffice. - Signs and symptoms of Heart Failure: call your Improvement Engineer if you have weight gain of 3 [...] Albin Champagne, cardiac surgeonScheduled Date/Time: 27-Feb-2022 12:00[facility]: [facility]: [phone]: 02/27at 12pm for chest xray in [facility] 5th floor radiology, then 1pm for appointment in [place] [address] * Follow Up Appointment 2:Physician/Dept/Service: Dr. Jonathon Kaur, PCPLocation: [facility]; [address], [place] [address]Ujpgo Number: [phone] * Follow Up Appointment 3:Physician/Dept/Service: Dr. Miri Hill, CardiologyReason for Referral: Heart Failure and General CardiologyScheduled Date/Time: 13-Feb-2022 11:15Location: [facility]; [address], [address] [address]Snuqa Number: [phone]: Please bring insurance information and photo ID * Follow Up Appointment 4:Physician/Dept/Service: Dr. Sivakumar Corbett, Vascular SurgeryReason for Referral: carotid stenosisScheduled Date/Time: 03-Apr-2022 09:15Location: [address], [address] [address]Dmnqf Number: [phone]: Please bring insurance information and photo ID * Follow Up Appointment 5:Physician/Dept/Service: Dr. Kvng Romo, NephrologyScheduled Date/Time: 17-Feb-2022 13:45Location: [address] [facility] [address] [address]Bkdqu Number: [phone]: Please bring insurance information and photo ID * IV Hydration:Type Of Vascular Access: Peripheral IVPeripheral IV #1 Insertion Date: [id number] IV #1 Location: left basilic vein (medial side of arm)Device #1: butterfly cathPeripheral IV #1 Gauge: 22 gauge * Safety:Siderails: noRestraints: noSitter: noFall Risk: dizziness, weakness * Incision 1:Location: MidsternumAppearance: WNLDressing: SOPHIE * Community Support:Support System: Family [facility] Summary Purpose Family History No Family History [...] Chief Complaint M05.79 M15.0 Z79.899 Chief Complaint M05.79 M15.0 Z79.899 6 MO F/U CAR U/S 1200 I65.23 Chief Complaint M05.79 M15.0 Z79.899 6 MO F/U CAR U/S 1200 I65.23 Reason for Visit 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 Albin Pierce- Post CABG, HF, HTN.* NPV- Hospital follow up/ Hyponatremia * Labs 02/11/2022 Patient is here for a P/OP visit following CABG x3 done on January 12, 2022. Rehan SHAFER, RN-BC.CELY FINCH is being seen for a medication change. Dizzness and fatigue. Additional Source Comments INFORMATION SOURCE (unrecogn ized section and content) DATE CREATED AUTHOR 01/07/2022 [facility] DATE CREATED AUTHOR AUTHOR'S ORGANIZ ATION 04/13/2022 [employer] DATE CREATED AUTHOR AUTHOR'S ORGANIZ ATION 07/02/2022 [facility] DATE CREATED AUTHOR AUTHOR'S ORGANIZ ATION 02/11/2023 [facility] DATE CREATED AUTHOR AUTHOR'S ORGANIZ ATION 07/15/2023 [facility] EPIC DATE CREATED AUTHOR AUTHOR'S ORGANIZ ATION 11/04/2023 [facility] DATE CREATED AUTHOR AUTHOR'S ORGANIZ ATION 12/08/2023 [facility] ys[facility] Care Teams (unrecognized sec tion and content) Team Status: Inactive Member Role Status Dates PHYSICIAN NO FAMILY Primary Care Provider Active MARILU MeridaC Attending Provider Active Team Status: Inactive Member Role Status Dates Jonathon Kaur MD Primary Care Provider Active Kyree Blair MD Admit Provider Active Sandrine Flanagan RN Other Provider Active Tee Braun DO Other Provider Active Solitario Lucas MD Other Provider Active Felipe Cabezas MD Other Provider Active Gold Patrick MD Other Provider Active Nikolai Egan MD Other Provider Active Sydney Rivas APRN Other Provider Active Jillian Hernandez MD Other Provider Active Jono Jenkins MD Other Provider Active Wilmer Guzman MD Other Provider Active Noelle Ramírez [facility] Other Provider Active Miri Hill MD Other Provider Active Vandana Torres MD Attending Provider Active Team Status: Active Member Role Status Dates Jonathon Kaur MD Primary Care Provider Active Team Status: Inactive Member Role Status Dates Jonathon Kaur MD Primary Care Provider Active Kvng Romo DO Attending Provider Active Team Status: Inactive Member Role Status Dates Jonathon Kaur MD Primary Care Provider Active MARILU MeridaC Attending Provider Active Team Status: Inactive Member [...] September 23, 2023 End: September 23, 2023 Team Status: Active Member Role Status Dates Jonathon Kaur MD Primary Care Provider Active S tart: October 12, 2023 Sivakumar Tyson DO Attending Provider Active Sta rt: October 12, 2023 Team Status: Inactive Member Role Status Dates Jonathon Kaur MD Primary Care Provider Active S tart: December 06, 2023 End: December 06, 2023 Blake Zhao MD Attending Provider Active S tart: December 06, 2023 End: December 06, 2023 Team Status: Active Member Role Status Dates Jonathon Kaur MD Primary Care Provider Active S tart: December 06, 2023 Blake Zhao MD Attending Provider Active S tart: December 06, 2023 <item> Privacy Markings (unrecogniz ed section [...] Physician: Dr. Miri Hill MDEnrollment sent to: [employer] number [id number] applied.URGENT REF FOR RIGHT ICA GREATER THATN 70%, Abnormal carotid duplex2 WK FOLLOW UP; [facility] 04/08/22, Follow-up carotid stenosis Goals (unrecognized section [...] BE BASED ON THE PRIMARY CLINICAL RECORDS. [employer] provides no warranty or guarantee of the accuracy or completeness of information in this document.
--- NOTE | 2024-01-04 17:06 | XR_ITS ---
The [place] [id number] Patient Name: MARISOL BARBOSA MRN: [id number] date: 1940 Sex: F Assigned Patient Location: ER Current Patient Location: ER Accession/Order Number: [id number] Exam Date: 01/04/2024 17:25 Report Date: 01/04/2024 18:12 At the request of: JEREMY BONE Procedure: XR hip RT 2V w/ pelvis EXAM: XR hip RT 2V w/ pelvis HISTORY: pain COMPARISON: None. TECHNIQUE: 3 views of right hip FINDINGS: There is no acute fracture or dislocation. There is bilateral hip moderate osteoarthritis. The soft tissue is unremarkable. XR/XR hip RT 2V w/ pelvis IMPRESSION: No acute process. Electronically authenticated by: ELIOT MARIE Date: 01/04/2024 18:12
--- NOTE | 2024-01-04 17:07 | XR_ITS ---
The [address] [address] Patient Name: MARISOL BARBOSA MRN: [id number] date: 1940 Sex: F Assigned Patient Location: ER Current Patient Location: ER Accession/Order Number: [id number] Exam Date: 01/04/2024 17:25 Report Date: 01/04/2024 18:20 At the request of: JEREMY BONE Procedure: XR ankle RT 2V EXAM: XR ankle RT 2V HISTORY: sprain. Fall. COMPARISON: None. TECHNIQUE: 2 views. FINDINGS: The ankle mortise is preserved. No evidence of fracture or dislocation. XR/XR ankle RT 2V IMPRESSION: No evidence of fracture or dislocation. Electronically authenticated by: TENZIN PACHECO Date: 01/04/2024 18:20
--- NOTE | 2024-01-04 17:14 | ED.BACK1 ---
HPI HPI - Back Pain/Injury General Chief Complaint: Back Pain/Injury Stated Complaint: FALL BACK PAIN Time Seen by Provider: 01/04/24 16:56 Source: patient Mode of arrival: Wheelchair Limitations: no limitations History of Present Illness HPI Narrative: The patient coming to the ER an hour after she tripped outside her house, she fell backward sitting and she is complaining of right side pain, no head injury no loss of consciousness she was able to stand up and walk she mentioned that it only hurts with certain movement Related Data Home Medications ?Medication ?Instructions ?Recorded ?Confirmed atorvastatin 80 mg tablet 40 mg PO .qhs 06/19/23 01/04/24 clopidogrel 75 mg tablet 75 mg PO DAILY 06/19/23 01/04/24 carvedilol 12.5 mg tablet 12.5 mg PO Q12H 09/26/23 01/04/24 sodium chloride 1,000 mg soluble 1,000 mg PO BID 09/26/23 01/04/24 tablet levothyroxine 88 mcg tablet 88 mcg PO .ACB 01/05/24 01/05/24 Previous Rx's ?Medication ?Instructions ?Recorded amlodipine 10 mg tablet 10 mg PO DAILY #30 tabs 01/05/24 diclofenac sodium 1 % topical gel 2 g topical QID PRN pain #100 grams 01/05/24 (Voltaren Arthritis Pain) lisinopril 20 mg tablet 20 mg PO DAILY #30 tabs 01/05/24 oxycodone-acetaminophen 5 mg-325 1 tab PO Q6H PRN pain 3 days #10 01/05/24 mg tablet (Percocet) tabs Allergies Allergy/AdvReac Type Severity Reaction Status Date / Time No Known Drug Allergies Allergy Verified 06/19/23 10:51 Opioid HPI Opioid Management Most Recent Opioid Data: Last Pain Scale 0 01/05/24 11:27 01/05/24 Last Pain Assessment 01/05/24 13:10 Last MAR Pain Assessment 01/05/24 11:27 Last ORT Total Score 0 01/04/24 22:20 01/04/24 Last ORT Risk Category Low Risk 01/04/24 22:20 01/04/24 PFSH PFSH Medical History (Updated 01/05/24 @ 10:23 by Shaikh Leti MD) Rheumatoid arthritis ?M06.9 - Rheumatoid arthritis, unspecified (ICD-10) HLD (hyperlipidemia) ?E78.5 - Hyperlipidemia, unspecified (ICD-10) Hypertension ?I10 - Essential (primary) hypertension (ICD-10) Hypertension ?I10 - Essential (primary) hypertension (ICD-10) Coronary artery disease ?I25.10 - Atherosclerotic heart disease of [place] coronary artery without angina pectoris (ICD-10) Hyponatremia ?E87.1 - Hypo-osmolality and hyponatremia (ICD-10) Weakness ?R53.1 - Weakness (ICD-10) Surgical History (Updated 09/26/23 @ 15:17 by Lorraine Mallory) History of open heart surgery (~12/2021) ?Z98.890 - Other specified postprocedural states (ICD-10) Family History (Updated 01/04/24 @ 22:26 by Goldie Nieves RN) Father Family history of myocardial infarction Family history of hypertension Sister Family history of diabetes mellitus Brother Family history of hypertension Social History (Updated 01/04/24 @ 22:28 by Goldie Nieves RN) Within the past year, how often did you have a drink containing alcohol: never Score interpretation: A score less than 3 is consistent with normal alcohol consumption. Smoking status: Former smoker Non-prescribed substance use: denies use Known occupational exposures/hazards: No Highest level of school completed/degree received: high school graduate Are you now , , , , never or living with a partner: In a typical week, how many times do you talk on the telephone with family, friends, or neighbors: 3 or more times per week How often do you get together with friends or relatives: 3 or more times per week Little interest or pleasure in doing things: not at all Feeling down, depressed, or hopeless: not at all Feel stressed/tense/nervous/anxious/difficulty sleeping: not at all Do you think of yourself as: straight/heterosexual Gender Identity: female Exam Constitutional Vital Signs, click to edit/add: Last Vital Signs Temp 97.8 F 01/05/24 10:28 Pulse 50 L 01/05/24 10:28 Resp 16 01/05/24 10:28 BP 113/52 01/05/24 10:28 Pulse Ox 97 01/05/24 11:20 O2 Del Method Room Air 01/05/24 11:20 Course Vital Signs Vital signs: Vital Signs Temperature 98.1 F 01/04/24 16:59 Pulse Rate 70 01/04/24 16:59 Respiratory Rate 18 01/04/24 16:59 Blood Pressure 180/66 H 01/04/24 16:59 Pulse Oximetry 100 01/04/24 16:59 Oxygen Delivery Method Room Air 01/04/24 16:59 Temperature 97.8 F 01/05/24 10:28 Pulse Rate 50 L 01/05/24 10:28 Respiratory Rate 16 01/05/24 10:28 Blood Pressure 113/52 01/05/24 10:28 Pulse Oximetry 97 01/05/24 11:20 Oxygen Delivery Method Room Air 01/05/24 11:20 MDM - Back Pain/Injury MDM Narrative Medical decision making narrative: The patient x-ray of the hip as well as x-ray of the right ankle showed no acute pathology Initially the patient only treated with Tylenol because she expressed that the pain was not severe but apparently when she walked to the bathroom she mentioned that she is in a lot of pain and she lives by herself The patient provided with Toradol in addition to tramadol and Norflex-----pt care transferred to Dr Alba awaiting further evaluation Lab Data Labs: Lab Results 01/04/24 Range/Units 21:40 WBC 7.7 (4.0-11.0) 10^3/uL RBC 4.50 (4.20-5.40) 10^6/uL Hgb 13.3 (12.0-16.0) g/dL Hct 39.6 (36.0-48.0) % MCV 88.0 (81.0-99.0) fL MCH 29.6 (26.7-34.0) pg MCHC 33.6 (29.9-35.2) g/dL RDW 14.6 (11.0-15.0) % Plt Count 254 (150-450) 10^3/uL MPV 10.6 (9.5-13.5) fL Neut % (Auto) 84.0 H (43.0-75.0) % Lymph % (Auto) 12.9 L (20.5-60.0) % [place] % (Auto) 2.3 (1.7-12.0) % Eos % (Auto) 0.1 L (0.9-7.0) % Baso % (Auto) 0.3 (0.2-2.0) % Neut # (Auto) 6.5 (1.4-6.5) 10^3/uL Lymph # (Auto) 1.0 L (1.2-3.8) 10^3/uL [place] # (Auto) 0.2 L (0.3-0.8) 10^3/uL Eos # (Auto) 0.0 (0.0-0.7) 10^3/uL Baso # (Auto) 0.0 (0.0-0.1) 10^3/uL Abs Immat Gran (auto) 0.03 (0.00-0.03) 10^3/uL Imm/Tot Granulo (auto) 0.4 (0.0-0.5) % Sodium 132 L (136-145) mmol/L Potassium 4.1 (3.5-5.1) mmol/L Chloride 98 (98-107) mmol/L Carbon Dioxide 19.6 L (21.0-32.0) mmol/L Anion Gap 18.5 BUN 25.0 H (7.0-18.0) mg/dL Creatinine 1.24 H (0.55-1.02) mg/dL Est GFR ( Amer) 50 L (>=60 mL/min/1.73m^2) Est GFR (Non-Af Amer) 42 L (>=60 mL/min/1.73m^2) BUN/Creatinine Ratio 20.2 Glucose 226 H (74-106) mg/dL Calcium 9.7 (8.5-10.1) mg/dL Discharge Plan Discharge Chief Complaint: Back Pain/Injury Clinical Impression: Fall Qualifiers: Encounter type: subsequent encounter Qualified Code(s): W19.XXXD - Unspecified fall, subsequent encounter Contusion of hip Qualifiers: Encounter type: subsequent encounter Laterality: right Qualified Code(s): S70.01XD - Contusion of right hip, subsequent encounter Fracture of transverse process of lumbar vertebra Qualifiers: Encounter type: subsequent encounter Fracture type: closed Fracture healing: with routine healing Qualified Code(s): S32.009D - Unspecified fracture of unspecified lumbar vertebra, subsequent encounter for fracture with routine healing Patient Disposition: Admitted as Observation Discharge Date/Time: 01/04/24 22:02
[2024-01-04] MEDS: ACETAMINOPHEN 325 MG TABLET 650 MG PO (18:05)
[2024-01-04] MEDS: KETOROLAC TROMETHAMINE 30 MG/ML VIAL 15 MG IM (18:40)
[2024-01-04] MEDS: TRAMADOL HCL 50 MG TABLET PO (18:41)
[2024-01-04] MEDS: ORPHENADRINE 60 MG/ 2 ML VIAL 30 MG IM (18:41)
[2024-01-04 19:01] VITALS: BP 193/72; PULSE 63; O2SAT 98
--- NOTE | 2024-01-04 19:20 | CT_ITS ---
The [address] [address] Patient Name: MARISOL BARBOSA MRN: [id number] date: 1940 Sex: F Assigned Patient Location: ER Current Patient Location: ER Accession/Order Number: [id number] Exam Date: 01/04/2024 19:30 Report Date: 01/04/2024 21:00 At the request of: DARLENE TORRES Procedure: CT lumbar spine wo con EXAM: CT lumbar spine wo con HISTORY: fall COMPARISON: None. TECHNIQUE: Axial CT scans of the lumbar spine were obtained without contrast. MPR images were obtained. Dose reduction techniques were achieved by using: automated exposure control and/or adjustment of mA and /or kV according to patient size and/or use of iterative reconstruction technique. FINDINGS: An acute minimally displaced fracture in the lateral right L1 transverse process. No other fracture. Decreased disc height from L2 to S1 and vacuum disc phenomena at L3-L4 and L5-S1 are secondary to disc degeneration. Mild posterior discovertebral complexes is at L2-L3, L4-5 and L5-S1 and mild posterior disc bulge at L3-L4 without central spinal stenosis. Mild to moderate stenosis of L5-S1 neural foramina secondary to decreased disc height and discovertebral complex. No spondylolysis or spondylolisthesis. No destructive bony lesions. SI joints are intact. The visualized retroperitoneum shows no adenopathy. CT/CT lumbar spine wo con IMPRESSION: An acute minimally displaced fracture in the lateral right L1 transverse process. No other fracture. Degenerative changes in the lumbar spine without central spinal stenosis. Mild to moderate stenosis of L5-S1 neural foramina. Electronically authenticated by: ALEE CUENCA Date: 01/04/2024 21:00
--- NOTE | 2024-01-04 19:20 | CT_ITS ---
The [address] [address] Patient Name: MARISOL BARBOSA MRN: [id number] date: 1940 Sex: F Assigned Patient Location: ER Current Patient Location: ER Accession/Order Number: [id number] Exam Date: 01/04/2024 19:30 Report Date: 01/04/2024 21:06 At the request of: DARLENE TORRES Procedure: CT hip RT wo con EXAM: CT hip RT wo con HISTORY: fall COMPARISON: Right hip x-ray of today's date. TECHNIQUE: Multiple axial images of the right hip are obtained without the use of IV contrast material. Coronal and sagittal reformatted sequences are submitted for review. FINDINGS: No acute fracture is seen. Alignment is normal. Joint spaces are preserved. The visualized soft tissues appear unremarkable. The visualized urinary bladder appears unremarkable. No significant free fluid or abnormal fluid collection is seen in the visualized right pelvic region. CT/CT hip RT wo con IMPRESSION: No acute fracture or malalignment. Electronically authenticated by: KT ANDERS Date: 01/04/2024 21:06
--- NOTE | 2024-01-04 21:23 | ECG_ITS ---
The [facility] Test Date: 2024-01-04 Pat Name: MARISOL BARBOSA Department: Room: - Gender: Female [employer]: : 1940 Requested By: [id number] Order Number: [id number] Reading MD: ERWIN FUENTES Measurements Intervals Stevenson Rate: 61 P: 46 NE: 164 QRS: 18 QRSD: 80 T: 27 QT: 398 QTc: 401 Interpretive Statements 1100 Sinus rhythm 5222 Moderate voltage criteria for LVH, may be normal variant 9130 borderline ECG Compared to ECG 09/26/2023 10:52:24 Left ventricular hypertrophy now present Ventricular premature complex(es) no longer present Electronically Signed On 01-04-2024 22:26:01 EDT by ERWIN FUENTES
--- NOTE | 2024-01-04 21:36 | ED.BACK1 ---
HPI HPI - Back Pain/Injury General Chief Complaint: Back Pain/Injury Stated Complaint: FALL BACK PAIN Time Seen by Provider: 01/04/24 16:56 Source: patient Mode of arrival: Wheelchair Limitations: no limitations History of Present Illness HPI Narrative: 83-year-old female presented to the emergency department and was initially seen by Dr. Ronquillo and signed out to me after discussing the case with her thoroughly. Please see her full history and physical exam. Related Data Home Medications ?Medication ?Instructions ?Recorded ?Confirmed amlodipine 5 mg tablet 5 mg PO DAILY 06/19/23 01/04/24 atorvastatin 80 mg tablet 40 mg PO .qhs 06/19/23 01/04/24 clopidogrel 75 mg tablet 75 mg PO DAILY 06/19/23 01/04/24 carvedilol 12.5 mg tablet 12.5 mg PO Q12H 09/26/23 01/04/24 sodium chloride 1,000 mg soluble 1,000 mg PO BID 09/26/23 01/04/24 tablet lisinopril 10 mg tablet 10 mg PO DAILY 01/04/24 01/04/24 Previous Rx's ?Medication ?Instructions ?Recorded levothyroxine 100 mcg tablet 88 mcg (0.88 x 100 mcg) PO ACB #30 09/27/23 tabs Allergies Allergy/AdvReac Type Severity Reaction Status Date / Time No Known Drug Allergies Allergy Verified 06/19/23 10:51 Opioid HPI Opioid Management Most Recent Opioid Data: Last Pain Scale 10 01/04/24 18:41 01/04/24 Last MAR Pain Assessment 01/04/24 18:41 Last ORT Total Score 0 09/26/23 14:42 09/26/23 Last ORT Risk Category Low Risk 09/26/23 14:42 09/26/23 [facility] Medical History (Updated 01/04/24 @ 21:39 by Keagan Alba MD) Hypertension ?I10 - Essential (primary) hypertension (ICD-10) Hypertension ?I10 - Essential (primary) hypertension (ICD-10) Coronary artery disease ?I25.10 - Atherosclerotic heart disease of [place] coronary artery without angina pectoris (ICD-10) Hyponatremia ?E87.1 - Hypo-osmolality and hyponatremia (ICD-10) Weakness ?R53.1 - Weakness (ICD-10) Surgical History (Updated 07/14/24 @ 15:17 by Lorraine Mallory) History of open heart surgery (~12/2021) ?Z98.890 - Other specified postprocedural states (ICD-10) Social History Highest level of school completed/degree received: high school graduate Exam Constitutional Vital Signs, click to edit/add: Last Vital Signs Temp 98.1 F 01/04/24 16:59 Pulse 63 01/04/24 19:01 Resp 17 01/04/24 19:01 BP 193/72 H 01/04/24 19:01 Pulse Ox 98 01/04/24 19:01 O2 Del Method Room Air 01/04/24 16:59 Course Vital Signs Vital signs: Vital Signs Temperature 98.1 F 01/04/24 16:59 Pulse Rate 70 01/04/24 16:59 Respiratory Rate 18 01/04/24 16:59 Blood Pressure 180/66 H 01/04/24 16:59 Pulse Oximetry 100 01/04/24 16:59 Oxygen Delivery Method Room Air 01/04/24 16:59 Temperature 98.1 F 01/04/24 16:59 Pulse Rate 63 01/04/24 19:01 Respiratory Rate 17 01/04/24 19:01 Blood Pressure 193/72 H 01/04/24 19:01 Pulse Oximetry 98 01/04/24 19:01 Oxygen Delivery Method Room Air 01/04/24 16:59 MDM - Back Pain/Injury MDM Narrative Medical decision making narrative: X-rays were negative but CAT scan shows L1 transverse process fracture and we discussed admission versus discharge home. She states she is having too much pain to go home and she lives by herself so should be admitted. I spoke to Dr. Valdez and the admitting service. Treatment diagnosis and disposition were discussed with the patient. Differential Diagnosis Differential diagnosis: Likely other (Lumbar fracture, hip fracture, contusion) Imaging Data CT lumbar: Radiologist's impression: ITS Impressions Hip/Pelvis X-Ray 01/04/24 17:06 IMPRESSION: No acute process. Electronically authenticated by: ELIOT MARIE Date: 01/04/2024 18:12 Ankle X-Ray 01/04/24 17:07 IMPRESSION: No evidence of fracture or dislocation. Electronically authenticated by: TENZIN PACHECO Date: 01/04/2024 18:[address] 10/22/24 19:20 IMPRESSION: No acute fracture or malalignment. Electronically authenticated by: KT ANDERS Date: 01/04/2024 21:[address] 01/04/24 19:20 IMPRESSION: An acute minimally displaced fracture in the lateral right L1 transverse process. No other fracture. Degenerative changes in the lumbar spine without central spinal stenosis. Mild to moderate stenosis of L5-S1 neural foramina. Electronically authenticated by: ALEE CUENCA Date: 01/04/2024 21:00 Discharge Plan Discharge Chief Complaint: Back Pain/Injury Clinical Impression: Fall, Contusion of hip, Fracture of transverse process of lumbar vertebra Patient Disposition: Admitted as Observation
[2024-01-04 21:59] LABS: Basophils Percent Auto 0.3 % (0.2-2.0); Eosinophils Percent Auto 0.1 % (0.9-7.0); Hematocrit 39.6 % (36.0-48.0); Hemoglobin 13.3 g/dL (12.0-16.0); Immature Granulocytes Abs Auto 0.03 10^3/uL (0.00-0.03); Immature Granulocytes Pct Auto 0.4 % (0.0-0.5); Lymphocytes Percent Auto 12.9 % (20.5-60.0); Mean Corpuscular HGB Conc 33.6 g/dL (29.9-35.2); Mean Corpuscular Hemoglobin 29.6 pg (26.7-34.0); Mean Platelet Volume 10.6 fL (9.5-13.5); Monocytes Absolute Auto 0.2 10^3/uL (0.3-0.8); Monocytes Percent Auto 2.3 % (1.7-12.0); Neutrophils Absolute Auto 6.5 10^3/uL (1.4-6.5); Platelet Count 254 10^3/uL (150-450); Red Cell Distribution Width 14.6 % (11.0-15.0); White Blood Count 7.7 10^3/uL (4.0-11.0)
[2024-01-04 22:08] LABS: Anion Gap 18.5; BUN Creatinine Ratio 20.2; Calcium 9.7 mg/dL (8.5-10.1); Carbon Dioxide 19.6 mmol/L (21.0-32.0); Chloride 98 mmol/L (98-107); Estimated GFR (African America 50 (>=60 mL/min/1.73m^2); Estimated GFR (Non-African Ame 42 (>=60 mL/min/1.73m^2); Glucose 226 mg/dL (74-106); Potassium 4.1 mmol/L (3.5-5.1); Sodium 132 mmol/L (136-145)
--- OUTSIDE RECORDS SUMMARY | 2024-01-04 22:13 | XMS_ITS | CCD ---
Author Organization [facility] Care Team Providers Care Surveyor Mine Name Role Phone PROVIDER, UNKNOWN Attending Unavailable [...] Provider MD Wilmer Guzman Other Provider Desiree PASSENGER TIRE BUILDER- Noelle Box Other Provider [phone] MD Miri Hill Other Provider [phone] [...] MD Gold Patrick Other Provider MD Nikolai Eagn Other Provider ZAC York Other Provider MD Jillian Hernandez Other Provider MD Jono Jenkins Najerrell Other Provider MD Wilmer Guzman Other Provider Desiree [facility] Noelle Box Other Provider [phone] MD Miri Hill Other Provider [phone] MD Vandana Torres Attending Provider DO Kvng Romo Attending Provider MEME Harris-Keira Box Attending Provider Blake Zhao Unavailable NATASHA, DR JONATHON Shaffer Admitting Unavailable NADEREKeagan, DR [...] Consulting Unavailable RENETTA, DR BUSCH Consulting Unavailable WASHINGTON, DR BUD Hogan Consulting Unavailable NATASHA, DR [...] Care MD Jonathon Sutton Primary Care Provider [phone] MD Blake Zhao Attending Provider DIANA Harris Attending Provider JONATHON KAUR Attending Unavailable MD Jonathon Kaur Primary Care Provider DIANA Harris Attending Provider DAPHNE MCGUIRE Attending Unavailable AMANDA, DAPHNE Attending Unavailable JORGE BARRIGA Attending Unavailable DAPHNE MCGUIRE Attending Unavailable MD Blake Zhao Attending Provider [phone] Obermeyer Brianda L Admitting Unavailable Obermeyer, Brianda [...] Admitting Unavailable Obermeyer, Brianda Box Attending Unavailable Jonathon Kaur Primary Care Unavailable Medications Current Medications [...] 16-Jan-2022 Generic Substitution Allowed polyethylene glycol 3350 24287 mg powder for oral solution (1 source) [...] 05-25-2023 Heparin(Porcine) In 0.45% Na cl Discontinued 83732 UNIT IV .Q24H January 06, 2022 12:00am [...] 01-09-2022 Episodic Other aftercare (5 sources) Other termination clerk (current) drug therapy; Translations: [[employer] SHIP STEWARD CURRENT DRUG THERAPY] Onset: 03-11-2022 Episodic Other [...] Onset: 07-02-2022 01-02-2022 Chronic Unclassified (2 sources) 55140; CABG X2/3 PABLO VEIN; CAD 01-08-2022 Comment on above: 37070; CABG X2/3 ESPINOZA A VEIN; CAD Unclassified [...] carotid doppler BIon 09- US carotid doppler [facility] [address] [place] [address] Ultrasound Report Signed Patient: Nenita Finch MR#: [id number] 8 : 1940 Acct:[id number] Age/Sex: 83 / F ADM Date: 12/06/23 Loc: [facility] Room: Type: [facility] Attending Dr: Blake Zhao MD Ordering Provider: [...] Blake Zhao M.D.12/06/2023 12:38 PM Dictation Location: [place] [address] Tech: Jannie Nieto Transcribed By: TORIN 12/06/23 1238 Dictated By: Blake Zhao MD 12/06/23 1237 Signed By: 12/06/23 1238 Normal [facility] 11-03-2023 36 Patient returned my call this morning and was made aware of medication changes per Dr. Mcguire. She will have labs 1 week later. RX and lab order sent. [facility] 11-02-2023 36 LM on patient's [employer] number for her to return my call. [facility] 11-01-2023 36 Patient called to jessica garcia you aware that she's not tolerating the addition of chlorthalidone. She's been nauseous since she started it. She did have labs recently. Did you want to make any changes? Please advise. Thanks. [facility] Office Visiton 10-18-2023 Follow-up visit [id number] Lorraine Finch justino 1940 F Date Provider Department Center 10/18/2023 DAPHNE GILLETTE Family History Problem Relation Age of Onset Valvular heart disease Mother Heart attack Father Heart attack Brother Coronary artery disease Brother Family Status - Relation Status Age at Mother Father Brother Level of Service:80358 MT OFFICE/OUTPATIENT ESTABLISHED MOD MDM 30 MIN [facility] Office Visiton 09-30-2023 Follow-up visit [id number] Lorraine Finch justino 1940 F Date Provider Department Center 09/30/2023 DAPHNE GILLETTE Family History Problem Relation Age of Onset Valvular heart disease Mother Heart attack Father Heart attack Brother Coronary artery disease Brother Family Status - Relation Status Age at Mother Father Brother Level of Service:91453 MT OFFICE/OUTPATIENT ESTABLISHED LOW MDM 20 MIN Normal [facility] Alanine aminotransferase [En zymatic activity/volume] in Serum or PlasmaOrdered By: Rakan Del Toro on 09-23-2023 ALT [Catalytic activity/Vol] 14 U/L Normal 7-52 [facility] Comment on above: Performed By: #### C BC, CMP, ESR #### [facility] [address] [place] [address] [place] Albumin [Mass/volume] in Ser um or Plasma by Bromocresol green (BCG) dye binding methoOrdered By: Rakan Del Toro on 09-23-2023 Albumin BCG dye [Mass/Vol] 3.8 g/dL 3.5-5.7 [facility] Alkaline phosphatase [Enzyma tic activity/volume] in Serum or PlasmaOrdered By: Rakan Del Toro on 09-23-2023 ALP [Catalytic activity/Vol] 63 U/L Normal 34-104 [facility] Comment on above: Result Comment: PERF ORMED BY: [place] [address] PATHOLOGIST DELICATESSEN SLICER RENE BOWSER M.D. Performed By: #### C BC, CMP, ESR #### [address] Aspartate aminotransferase [ Enzymatic activity/volume] in Serum or PlasmaOrdered By: Rakan Del Toro on 09-23-2023 AST [Catalytic activity/Vol] 22 U/L Normal 13-39 [facility] Comment on above: Performed By: #### C BC, CMP, ESR #### [address] Automated basophil %Ordered By: Rakan Del Toro on 09-23-2023 Basophils/100 WBC (Bld) 0.8 % Normal . [facility] Comment on above: Performed By: #### C BC, CMP, ESR #### [place] [address] [place] Automated basophil countOrde red By: Rakan Del Toro on 09-23-2023 Basophils (Bld) [#/Vol] 0.1 10*3/uL Normal 0.0-0.2 [facility] Comment on above: Performed By: #### C BC, CMP, ESR #### [address] Automated blood monocyte cou ntOrdered By: Rakananahi Del Toro on 09-23-2023 Monocytes (Bld) [#/Vol] 0.9 10*3/uL High 0.0-0.8 [facility] Comment on above: Performed By: #### C BC, CMP, ESR #### [address] Automated eosinophil %Ordere d By: Rakan Renetta on 09-23-2023 Eosinophils/100 WBC (Bld) 2.7 % Normal . [facility] Comment on above: Performed By: #### C BC, CMP, ESR #### [address] Automated eosinophil countOr dered By: Rakan Del Toro on 09-23-2023 Eosinophils (Bld) [#/Vol] 0.2 10*3/uL Normal 0.0-0.45 [facility] Comment on above: Performed By: #### C BC, CMP, ESR #### [address] Automated monocyte %Ordered By: Rakan Del Toro on 09-23-2023 Monocytes/100 WBC (Bld) 11.3 % Normal . [facility] Comment on above: Performed By: #### C BC, CMP, ESR #### [address] Automated neutrophil %Ordere d By: Rakan Del Toro on 09-23-2023 Neutrophils/100 WBC (Bld) 67.2 % Normal . [facility] Comment on above: Performed By: #### C BC, CMP, ESR #### [address] Bilirubin.total [Mass/volume ] in Serum or PlasmaOrdered By: Rakan Del Toro on 07-11-2024 Bilirubin [Mass/Vol] 0.4 mg/dL Normal 0.3-1.0 [facility] Comment on above: Performed By: #### C BC, CMP, ESR #### [facility] [address] Calcium [Mass/volume] in Ser um or PlasmaOrdered By: Rakan Renetta on 09-23-2023 Calcium [Mass/Vol] 9.3 mg/dL Normal 8.6-10.3 [facility] Comment on above: Performed By: #### C BC, CMP, ESR #### [address] Carbon dioxide, total [Moles /volume] in Serum or PlasmaOrdered By: Rakan Renetta on 09-23-2023 CO2 [Moles/Vol] 24.9 mmol/L Normal 21.0-31.0 [facility] Comment on above: Performed By: #### C BC, CMP, ESR #### [address] Chloride [Moles/volume] in S sarwat or PlasmaOrdered By: Rakananahi Del Toro on 09-23-2023 Chloride [Moles/Vol] 96 mmol/L Low 98-107 [facility] Comment on above: Performed By: #### C BC, CMP, ESR #### [address] Complete Blood Count Auto Di ffon 09-23-2023 Mean Corpuscular HGB Conc 33.9 g/dL Normal 32.0-35.0 [facility] Comment on above: Performed By: #### C BC, CMP, ESR #### [address] NRBC% 0.1 /100{WBC} Normal 0-0.5 [facility] Comment on above: Performed By: #### C BC, CMP, ESR #### [address] Comprehensive Metabolic Pane radha 09-23-2023 Albumin [Mass/Vol] 3.8 g/dL Normal 3.5-5.7 [facility] Comment on above: Performed By: #### C BC, CMP, ESR #### [address] GFR/1.73 sq M.predicted MDRD (S/P/Bld) [Vol rate/Area] mL/min/{1.73_m2} Normal [facility] Comment on above: Performed By: #### C BC, CMP, ESR #### [address] Creatinine [Mass/volume] in Serum or PlasmaOrdered By: Rakan Del Toro on 09-23-2023 Creatinine [Mass/Vol] 0.84 mg/dL Normal 0.60-1.20 [facility] Comment on above: Performed By: #### C BC, CMP, ESR #### [address] Erythrocyte Sedimentation Ra moose 09-23-2023 ESR (Bld) [Velocity] 50 mm/h High 0-29 [facility] Comment on above: Result Comment: PERF ORMED BY: [place] [address] PATHOLOGIST DELICATESSEN SLICER RENE BOWSER M.D. Performed By: #### C BC, CMP, ESR #### [address] Erythrocyte distribution wid th [Ratio] by Automated countOrdered By: Raakn Del Toro on 09-23-2023 Erythrocyte distribution width (RBC) [Ratio] 14.6 % Normal 11.9-15.3 [facility] Comment on above: Performed By: #### C BC, CMP, ESR #### [address] Erythrocyte sedimentation ra te by Photometric methodOrdered By: Rakan Del Toro on 09-23-2023 ESR Photometric method (Bld) [Velocity] 50 mm/hr High 0-29 [facility] Erythrocytes [#/volume] in B lood by Automated countOrdered By: Rakan Del Toro on 09-23-2023 RBC (Bld) [#/Vol] 4.53 10*6/uL Normal 3.60-5.00 [facility] Comment on above: Performed By: #### C ANALILIA ALVES, ESR #### [facility] [address] Glucose [Mass/volume] in Ser um or PlasmaOrdered By: Rakan Del Toro on 09-23-2023 Glucose [Mass/Vol] 106 mg/dL High 70-100 [facility] Comment on above: ADA recommended refe rence rangeRandom Glucose Reference Range is dependent on time and content of last meal. Glucose of more than 200 mg/dL in a nonstressed, ambulatory subject supports the diagnosis of Diabetes Mellitus. Result Comment: [place] om Glucose Reference Range is dependent on time and content of last meal. Glucose of more than 200 mg/dL in a nonstressed, ambulatory subject supports the diagnosis of Diabetes Mellitus. ADA recommended reference range Performed By: #### C ANALILIA ALVES, ESR #### [facility] [address] Hematocrit [Volume Fraction] of Blood by Automated countOrdered By: Rakan Del Toro on 09-23-2023 Hematocrit (Bld) [Volume fraction] 38.8 % Normal 34.0-46.4 [facility] Comment on above: Performed By: #### C ANALILIA ALVES, ESR #### [facility] [address] Hemoglobin [Mass/volume] in BloodOrdered By: Rakan Del Toro on 09-23-2023 Hemoglobin (Bld) [Mass/Vol] 13.2 g/dL Normal 11.8-15.4 [facility] Comment on above: Performed By: #### C ANALILIA ALVES, ESR #### [facility] [address] Leukocytes [#/volume] correc abena for nucleated erythrocytes in Blood by Automated counOrdered By: Rakan Del Toro on 09-23-2023 WBC corrected for nucl RBC Auto (Bld) [#/Vol] 8.2 10*3/uL 3.8-11.6 [facility] Leukocytes [#/volume] in Blo od by Automated countOrdered By: Rakan Coxrow on 09-23-2023 WBC (Bld) [#/Vol] 8.2 10*3/uL Normal 3.8-11.6 [facility] Comment on above: Performed By: #### C BC, CMP, ESR #### [address] Lymphocytes [#/volume] in Bl ood by Automated countOrdered By: Rakan Renetta on 09-23-2023 Lymphocytes (Bld) [#/Vol] 1.5 10*3/uL Normal 1.00-4.8 [facility] Comment on above: Performed By: #### C BC, CMP, ESR #### [address] Lymphocytes/100 leukocytes i n Blood by Automated countOrdered By: Rakan Del Toro on 09-23-2023 Lymphocytes/100 WBC (Bld) 18.0 % Normal . [facility] Comment on above: Performed By: #### C BC, CMP, ESR #### [address] MCH [Entitic mass] by Automa abena countOrdered By: Rakananahi Del Toro on 09-23-2023 MCH (RBC) [Entitic mass] 29.1 pg Normal 24.7-34.3 [facility] Comment on above: Performed By: #### C BC, CMP, ESR #### [address] MCHC Auto (RBC) [Mass/Vol]Or dered By: Rakan Del Toro on 09-23-2023 MCHC (RBC) [Mass/Vol] 33.9 g/dL 32.0-35.0 [facility] MCV [Entitic volume] by Auto mated countOrdered By: Rakan Del Toro on 09-23-2023 MCV (RBC) [Entitic vol] 85.7 fL Normal 80-100 [facility] Comment on above: Performed By: #### C BC, CMP, ESR #### [place] [address] [place] Neutrophils [#/volume] in Bl ood by Automated countOrdered By: Rakananahi Del Toro on 09-23-2023 Neutrophils (Bld) [#/Vol] 5.5 10*3/uL Normal 1.8-7.7 [facility] Comment on above: Performed By: #### C BC, CMP, ESR #### [facility] [address] No Panel InformationOrdered By: Rakan Del Toro on 09-23-2023 Estimated GFR (CKD-EPI) > 60.0 mL/Min [facility] Creatinine Clearance (Chem N/A [facility] Nucleated erythrocytes [Pres ence] in Blood by Automated countOrdered By: Rakan Del Toro on 09-23-2023 Nucleated RBC Auto Ql (Bld) 0.1 /100{WBC} 0-0.5 [facility] Platelet mean volume [Entiti c volume] in Blood by Automated countOrdered By: Rakan Del Toro on 09-23-2023 Platelet mean volume (Bld) [Entitic vol] 9.3 fL Normal 6.3-10.7 [facility] Comment on above: Performed By: #### C BC, CMP, ESR #### [facility] [address] [place] [address] [place] Platelets [#/volume] in Bloo d by Automated countOrdered By: Rakan Del Toro on 09-23-2023 Platelets (Bld) [#/Vol] 239 10*3/uL Normal 150-450 [facility] Comment on above: Performed By: #### C BC, CMP, ESR #### [facility] [address] [place] [address] [place] Potassium [Moles/volume] in Serum or PlasmaOrdered By: Rakan Del Toro on 09-23-2023 Potassium [Moles/Vol] 4.3 mmol/L Normal 3.5-5.1 [facility] Comment on above: Performed By: #### C BC, CMP, ESR #### [place] [address] [place] Protein [Mass/volume] in Ser um or PlasmaOrdered By: Rakan Del Toro on 09-23-2023 Protein [Mass/Vol] 7.3 g/dL Normal 6.4-8.9 [facility] Comment on above: Performed By: #### C ANALILIA ALVES, ESR #### [address] Serum globulin measurement b y calculation (mass/volume)Ordered By: Rakan Del Toro on 09-23-2023 Globulin (S) [Mass/Vol] 3.5 g/dL Normal [facility] Comment on above: Performed By: #### C LONG CMP, ESR #### [address] Serum or plasma albumin/glob ulin mass ratioOrdered By: Rakan Del Toro on 09-23-2023 Albumin/Globulin [Mass ratio] 1.1 {ratio} [facility] Comment on above: Performed By: #### C LONG CMP, ESR #### [address] Serum or plasma anion gap de terminationOrdered By: Rakan Del Toro on 09-23-2023 Anion gap [Moles/Vol] 11.4 mmol/L Normal 6.0-15.0 [facility] Comment on above: Performed By: #### C ANALILIA ALVES, ESR #### [address] Sodium [Moles/volume] in Ser um or PlasmaOrdered By: Rakan Del Toro on 09-23-2023 Sodium [Moles/Vol] 128 mmol/L Low 136-145 [facility] Comment on above: Performed By: #### C LONG CMP, ESR #### [address] Urea nitrogen [Mass/volume] in Serum or PlasmaOrdered By: Rakan Del Toro on 09-23-2023 Urea nitrogen [Mass/Vol] 19 mg/dL Normal 7-25 [facility] Comment on above: Performed By: #### C LONG CMP, ESR #### [address] Office Visiton 07-19-2023 Follow-up visit [id number] Lorraine Finch 1940 F Date Provider Department Center 07/19/2023 271-DAPHNE MCGUIRE CARD Cristóbal Champion Family History Problem Relation Age of Onset Valvular heart disease Mother Heart attack Father Heart attack Brother Coronary artery disease Brother Family Status - Relation Status Age at Mother Father Brother Level of Service:21693 MT OFFICE/OUTPATIENT ESTABLISHED MOD MDM 30 MIN Normal [facility] Alanine aminotransferase [En zymatic activity/volume] in Serum or PlasmaOrdered By: Brianda Harris on 06-03-2023 ALT [Catalytic activity/Vol] 16 U/L Normal 7-52 [facility] Comment on above: Performed By: #### C MP, CBC, ESR #### [facility] [address] [place] [address] [place] Albumin [Mass/volume] in Ser um or Plasma by Bromocresol green (BCG) dye binding methoOrdered By: Brianda Harris on 06-03-2023 Albumin BCG dye [Mass/Vol] 4.1 g/dL 3.5-5.7 [facility] Alkaline phosphatase [Enzyma tic activity/volume] in Serum or PlasmaOrdered By: Brianda Harris on 06-03-2023 ALP [Catalytic activity/Vol] 69 U/L Normal 34-104 [facility] Comment on above: Result Comment: PERF ORMED BY: [place] [address] PATHOLOGIST DELICATESSEN SLICER RENE BOWSER M.D. Performed By: #### C MP, CBC, ESR #### [facility] [address] [place] [address] [place] Aspartate aminotransferase [ Enzymatic activity/volume] in Serum or PlasmaOrdered By: Brianda Harris on 06-03-2023 AST [Catalytic activity/Vol] 23 U/L Normal 13-39 [facility] Comment on above: Performed By: #### C MP, CBC, ESR #### [facility] [address] [place] [address] [place] Automated basophil %Ordered By: Brianda Harris on 06-03-2023 Basophils/100 WBC (Bld) 0.9 % Normal . [facility] Comment on above: Performed By: #### C MP, CBC, ESR #### [address] Automated basophil countOrde red By: Brianda Harris on 06-03-2023 Basophils (Bld) [#/Vol] 0.1 10*3/uL Normal 0.0-0.2 [facility] Comment on above: Performed By: #### C MP, CBC, ESR #### [address] Automated blood monocyte cou ntOrdered By: Brianda Harris on 06-03-2023 Monocytes (Bld) [#/Vol] 0.9 10*3/uL High 0.0-0.8 [facility] Comment on above: Performed By: #### C MP, CBC, ESR #### [address] Automated eosinophil %Ordere d By: Brianda Harris on 06-03-2023 Eosinophils/100 WBC (Bld) 2.4 % Normal . [facility] Comment on above: Performed By: #### C MP, CBC, ESR #### [address] Automated eosinophil countOr dered By: Brianda Harris on 06-03-2023 Eosinophils (Bld) [#/Vol] 0.2 10*3/uL Normal 0.0-0.45 [facility] Comment on above: Performed By: #### C MP, CBC, ESR #### [address] Automated monocyte %Ordered By: Brianda Harris on 06-03-2023 Monocytes/100 WBC (Bld) 11.1 % Normal . [facility] Comment on above: Performed By: #### C MP, CBC, ESR #### [address] Automated neutrophil %Ordere d By: Brianda Harris on 06-03-2023 Neutrophils/100 WBC (Bld) 66.3 % Normal . [facility] Comment on above: Performed By: #### C MP, CBC, ESR #### [facility] [address] Bilirubin.total [Mass/volume ] in Serum or PlasmaOrdered By: Brianda Harris on 06-03-2023 Bilirubin [Mass/Vol] 0.5 mg/dL Normal 0.3-1.0 [facility] Comment on above: Performed By: #### C MP, CBC, ESR #### [facility] [address] Calcium [Mass/volume] in Ser um or PlasmaOrdered By: Brianda Harris on 06-03-2023 Calcium [Mass/Vol] 9.4 mg/dL Normal 8.6-10.3 [facility] Comment on above: Performed By: #### C MP, CBC, ESR #### [address] Carbon dioxide, total [Moles /volume] in Serum or PlasmaOrdered By: Brianda Harris on 06-03-2023 CO2 [Moles/Vol] 25.4 mmol/L Normal 21.0-31.0 [facility] Comment on above: Performed By: #### C MP, CBC, ESR #### [address] Chloride [Moles/volume] in S sarwat or PlasmaOrdered By: Brianda Harris on 06-03-2023 Chloride [Moles/Vol] 102 mmol/L Normal 98-107 [facility] Comment on above: Performed By: #### C MP, CBC, ESR #### [address] Complete Blood Count Auto Di ffon 06-03-2023 Mean Corpuscular HGB Conc 32.9 g/dL Normal 32.0-35.0 [facility] Comment on above: Performed By: #### C MP, CBC, ESR #### [address] NRBC% 0.1 /100{WBC} Normal 0-0.5 [facility] Comment on above: Performed By: #### C MP, CBC, ESR #### [address] Comprehensive Metabolic Pane radha 06-03-2023 Albumin [Mass/Vol] 4.1 g/dL Normal 3.5-5.7 [facility] Comment on above: Performed By: #### C MP, CBC, ESR #### [address] GFR/1.73 sq M.predicted MDRD (S/P/Bld) [Vol rate/Area] mL/min/{1.73_m2} Normal [facility] Comment on above: Performed By: #### C MP, CBC, ESR #### [address] Creatinine [Mass/volume] in Serum or PlasmaOrdered By: Brianda Harris on 06-03-2023 Creatinine [Mass/Vol] 0.89 mg/dL Normal 0.60-1.20 [facility] Comment on above: Performed By: #### C MP, CBC, ESR #### [address] Erythrocyte Sedimentation Ra moose 06-03-2023 ESR (Bld) [Velocity] 42 mm/h High 0-29 [facility] Comment on above: Result Comment: PERF ORMED BY: [place] [address] PATHOLOGIST DELICATESSEN SLICER RENE BOWSER M.D. Performed By: #### C MP, CBC, ESR #### [address] Erythrocyte distribution wid th [Ratio] by Automated countOrdered By: Brianda Harris on 06-03-2023 Erythrocyte distribution width (RBC) [Ratio] 14.1 % Normal 11.9-15.3 [facility] Comment on above: Performed By: #### C MP, CBC, ESR #### [address] [place] [address] [place] Erythrocyte sedimentation ra te by Photometric methodOrdered By: Brianda Harris on 06-03-2023 ESR Photometric method (Bld) [Velocity] 42 mm/hr 0-29 [facility] Erythrocytes [#/volume] in B lood by Automated countOrdered By: Brianda Harris on 06-03-2023 RBC (Bld) [#/Vol] 4.80 10*6/uL Normal 3.60-5.00 [facility] Comment on above: Performed By: #### C MP, CBC, ESR #### [facility] [address] Glucose [Mass/volume] in Ser um or PlasmaOrdered By: Brianda Harris on 06-03-2023 Glucose [Mass/Vol] 91 mg/dL Normal 70-100 [facility] Comment on above: ADA recommended refe rence rangeRandom Glucose Reference Range is dependent on time and content of last meal. Glucose of more than 200 mg/dL in a nonstressed, ambulatory subject supports the diagnosis of Diabetes Mellitus. Result Comment: [place] om Glucose Reference Range is dependent on time and content of last meal. Glucose of more than 200 mg/dL in a nonstressed, ambulatory subject supports the diagnosis of Diabetes Mellitus. ADA recommended reference range Performed By: #### C MP, CBC, ESR #### [facility] [address] Hematocrit [Volume Fraction] of Blood by Automated countOrdered By: Brianda Harris on 06-03-2023 Hematocrit (Bld) [Volume fraction] 41.8 % Normal 34.0-46.4 [facility] Comment on above: Performed By: #### C MP, CBC, ESR #### [facility] [address] [place] [address] [place] Hemoglobin [Mass/volume] in BloodOrdered By: Brianda Harris on 06-03-2023 Hemoglobin (Bld) [Mass/Vol] 13.8 g/dL Normal 11.8-15.4 [facility] Comment on above: Performed By: #### C MP, CBC, ESR #### [address] Leukocytes [#/volume] correc abena for nucleated erythrocytes in Blood by Automated counOrdered By: Brianda Harris on 06-03-2023 WBC corrected for nucl RBC Auto (Bld) [#/Vol] 8.3 10*3/uL 3.8-11.6 [facility] Leukocytes [#/volume] in Blo od by Automated countOrdered By: Brianda Harris on 06-03-2023 WBC (Bld) [#/Vol] 8.3 10*3/uL Normal 3.8-11.6 [facility] Comment on above: Performed By: #### C MP, CBC, ESR #### [address] Lymphocytes [#/volume] in Bl ood by Automated countOrdered By: Brianda Harris on 06-03-2023 Lymphocytes (Bld) [#/Vol] 1.6 10*3/uL Normal 1.00-4.8 [facility] Comment on above: Performed By: #### C MP, CBC, ESR #### [facility] [address] [place] [address] Lymphocytes/100 leukocytes i n Blood by Automated countOrdered By: Brianda Harris on 06-03-2023 Lymphocytes/100 WBC (Bld) 19.3 % Normal . [facility] Comment on above: Performed By: #### C MP, CBC, ESR #### [facility] [address] [place] [address] MCH [Entitic mass] by Automa aebna countOrdered By: Brianda Harris on 06-03-2023 MCH (RBC) [Entitic mass] 28.7 pg Normal 24.7-34.3 [facility] Comment on above: Performed By: #### C MP, CBC, ESR #### [address] MCHC Auto (RBC) [Mass/Vol]Or dered By: Brianda Harris on 06-03-2023 MCHC (RBC) [Mass/Vol] 32.9 g/dL 32.0-35.0 [facility] MCV [Entitic volume] by Auto mated countOrdered By: Brianda Harris on 06-03-2023 MCV (RBC) [Entitic vol] 87.0 fL Normal 80-100 [facility] Comment on above: Performed By: #### C MP, CBC, ESR #### [facility] [address] [place] [address] Neutrophils [#/volume] in Bl ood by Automated countOrdered By: Brianda Harris on 06-03-2023 Neutrophils (Bld) [#/Vol] 5.5 10*3/uL Normal 1.8-7.7 [facility] Comment on above: Performed By: #### C MP, CBC, ESR #### [address] No Panel InformationOrdered By: Brianda Harris on 06-03-2023 Estimated GFR (CKD-EPI) > 60.0 mL/Min [facility] Creatinine Clearance (Chem N/A [facility] Nucleated erythrocytes [Pres ence] in Blood by Automated countOrdered By: Brianda Harris on 06-03-2023 Nucleated RBC Auto Ql (Bld) 0.1 /100{WBC} 0-0.5 [facility] Platelet mean volume [Entiti c volume] in Blood by Automated countOrdered By: Brianda Harris on 06-03-2023 Platelet mean volume (Bld) [Entitic vol] 9.3 fL Normal 6.3-10.7 [facility] Comment on above: Performed By: #### C MP, CBC, ESR #### [address] Platelets [#/volume] in Bloo d by Automated countOrdered By: Brianda Harris on 06-03-2023 Platelets (Bld) [#/Vol] 251 10*3/uL Normal 150-450 [facility] Comment on above: Performed By: #### C MP, CBC, ESR #### [facility] [address] Potassium [Moles/volume] in Serum or PlasmaOrdered By: Brianda Harris on 06-03-2023 Potassium [Moles/Vol] 3.8 mmol/L Normal 3.5-5.1 [facility] Comment on above: Performed By: #### C MP, CBC, ESR #### [address] Protein [Mass/volume] in Ser um or PlasmaOrdered By: Brianda Harris on 06-03-2023 Protein [Mass/Vol] 7.1 g/dL Normal 6.4-8.9 [facility] Comment on above: Performed By: #### C MP, CBC, ESR #### [address] Serum globulin measurement b y calculation (mass/volume)Ordered By: Brianda Harris on 06-03-2023 Globulin (S) [Mass/Vol] 3.0 g/dL [facility] Comment on above: Performed By: #### C MP, CBC, ESR #### [address] Serum or plasma albumin/glob ulin mass ratioOrdered By: Brianda Harris on 06-03-2023 Albumin/Globulin [Mass ratio] 1.4 {ratio} [facility] Comment on above: Performed By: #### C MP, CBC, ESR #### [address] Serum or plasma anion gap de terminationOrdered By: Brianda Harris on 06-03-2023 Anion gap [Moles/Vol] 11.4 mmol/L Normal 6.0-15.0 [facility] Comment on above: Performed By: #### C MP, CBC, ESR #### [place] [address] [place] Sodium [Moles/volume] in Ser um or PlasmaOrdered By: Brianda Harris on 06-03-2023 Sodium [Moles/Vol] 135 mmol/L Low 136-145 [facility] Comment on above: Performed By: #### C MP, CBC, ESR #### [facility] [address] Urea nitrogen [Mass/volume] in Serum or PlasmaOrdered By: Brianda Harris on 06-03-2023 Urea nitrogen [Mass/Vol] 24 mg/dL Normal 7-25 [facility] Comment on above: Performed By: #### C MP, CBC, ESR #### [facility] [address] [place] [id number] [facility] US carotid doppler BIon 05-13 US carotid doppler BI [facility] [place] [address] [place] [address] Ultrasound Report Signed Patient: Cely Finch MR#: [id number] 80 : 1940 Acct:[id number] Age/Sex: 83 / F ADM Date: 05/25/23 Loc: [facility] Room: Type: [facility] Attending Dr: Blake Zhao MD Ordering Provider: [...] Blake Zhao M.D.05/31/2023 12:47 PM Dictation Location: [place] [address] Tech: Juliana Licona Transcribed By: TORIN 05/31/23 1247 Dictated By: Blake Zhao MD 05/31/23 1243 Signed By: 05/31/23 1247 Normal [facility] Office Visiton 12-21-2022 Follow-up visit [id number] Lorraine Finch 1940 F Date Provider Department Center 12/21/2022 [id number] BARRIGA Family History Problem Relation Age of Onset Valvular heart disease Mother Heart attack Father Heart attack Brother Coronary artery disease Brother Family Status - Relation Status Age at Mother Father Brother Level of Service:70895 MT OFFICE/OUTPATIENT ESTABLISHED MOD MDM 30-39 MIN Normal [facility] Alanine aminotransferase [En zymatic activity/volume] in Serum or PlasmaOrdered By: Brianda Harris on 12-15-2022 ALT [Catalytic activity/Vol] 16 U/L Normal 7-52 [facility] Comment on above: Performed By: #### C MP, ESR, CBC #### [address] Albumin [Mass/volume] in Ser um or Plasma by Bromocresol green (BCG) dye binding methoOrdered By: Brianda Harris on 12-15-2022 Albumin BCG dye [Mass/Vol] 3.8 g/dL 3.5-5.7 [facility] Alkaline phosphatase [Enzyma tic activity/volume] in Serum or PlasmaOrdered By: Brianda Harris on 12-15-2022 ALP [Catalytic activity/Vol] 60 U/L Normal 34-104 [facility] Comment on above: Result Comment: PERF ORMED BY: [place] [address] PATHOLOGIST DELICATESSEN SLICER RENE BOWSER M.D. Performed By: #### C MP, ESR, CBC #### [address] Aspartate aminotransferase [ Enzymatic activity/volume] in Serum or PlasmaOrdered By: Brianda Harris on 12-15-2022 AST [Catalytic activity/Vol] 20 U/L Normal 13-39 [facility] Comment on above: Performed By: #### C MP, ESR, CBC #### [address] Automated basophil %Ordered By: Brianda Harris on 12-15-2022 Basophils/100 WBC (Bld) 0.6 % Normal . [facility] Comment on above: Performed By: #### C MP, ESR, CBC #### [address] Automated basophil countOrde red By: Brianda Harris on 12-15-2022 Basophils (Bld) [#/Vol] 0.1 10*3/uL Normal 0.0-0.2 [facility] Comment on above: Performed By: #### C MP, ESR, CBC #### [address] Automated blood monocyte cou ntOrdered By: Brianda Harris on 12-15-2022 Monocytes (Bld) [#/Vol] 1.2 10*3/uL High 0.0-0.8 [facility] Comment on above: Performed By: #### C MP, ESR, CBC #### [address] Automated eosinophil %Ordere d By: Brianda Harris on 12-15-2022 Eosinophils/100 WBC (Bld) 1.5 % Normal . [facility] Comment on above: Performed By: #### C MP, ESR, CBC #### [address] Automated eosinophil countOr dered By: Brianda Harris on 12-15-2022 Eosinophils (Bld) [#/Vol] 0.2 10*3/uL Normal 0.0-0.45 [facility] Comment on above: Performed By: #### C MP, ESR, CBC #### [address] Automated monocyte %Ordered By: Brianda Harris on 12-15-2022 Monocytes/100 WBC (Bld) 10.6 % Normal . [facility] Comment on above: Performed By: #### C MP, ESR, CBC #### [address] Automated neutrophil %Ordere d By: Brianda Harris on 12-15-2022 Neutrophils/100 WBC (Bld) 62.3 % Normal . [facility] Comment on above: Performed By: #### C MP, ESR, CBC #### [address] Bilirubin.total [Mass/volume ] in Serum or PlasmaOrdered By: Brianda Harris on 12-15-2022 Bilirubin [Mass/Vol] 0.3 mg/dL Normal 0.3-1.0 [facility] Comment on above: Performed By: #### C MP, ESR, CBC #### [address] Calcium [Mass/volume] in Ser um or PlasmaOrdered By: Brianda Harris on 12-15-2022 Calcium [Mass/Vol] 9.3 mg/dL Normal 8.6-10.3 [facility] Comment on above: Performed By: #### C MP, ESR, CBC #### [address] Carbon dioxide, total [Moles /volume] in Serum or PlasmaOrdered By: Brianda Harris on 12-15-2022 CO2 [Moles/Vol] 26.6 mmol/L Normal 21.0-31.0 [facility] Comment on above: Performed By: #### C MP, ESR, CBC #### [address] Chloride [Moles/volume] in S sarwat or PlasmaOrdered By: Brianda Harris on 12-15-2022 Chloride [Moles/Vol] 102 mmol/L Normal 98-107 [facility] Comment on above: Performed By: #### C MP, ESR, CBC #### [address] Complete Blood Count Auto Di ffon 12-15-2022 Mean Corpuscular HGB Conc 33.5 g/dL Normal 32.0-35.0 [facility] Comment on above: Performed By: #### C MP, ESR, CBC #### [address] NRBC% 0.1 /100{WBC} Normal 0-0.5 [facility] Comment on above: Performed By: #### C MP, ESR, CBC #### [address] Comprehensive Metabolic Pane radha 12-15-2022 Albumin [Mass/Vol] 3.8 g/dL Normal 3.5-5.7 [facility] Comment on above: Performed By: #### C MP, ESR, CBC #### [address] GFR/1.73 sq M.predicted MDRD (S/P/Bld) [Vol rate/Area] mL/min/{1.73_m2} Normal [facility] Comment on above: Performed By: #### C MP, ESR, CBC #### [address] Creatinine [Mass/volume] in Serum or PlasmaOrdered By: Brianda Harris on 12-15-2022 Creatinine [Mass/Vol] 0.87 mg/dL Normal 0.60-1.20 [facility] Comment on above: Performed By: #### C MP, ESR, CBC #### [address] Erythrocyte Sedimentation Ra moose 12-15-2022 ESR (Bld) [Velocity] 44 mm/h High 0-29 [facility] Comment on above: Result Comment: PERF ORMED BY: [place] [address] PATHOLOGIST DELICATESSEN SLICER RENE BOWSER M.D. Performed By: #### C MP, CBC, ESR #### [address] Erythrocyte distribution wid th [Ratio] by Automated countOrdered By: Brianda Harris on 12-15-2022 Erythrocyte distribution width (RBC) [Ratio] 14.7 % Normal 11.9-15.3 [facility] Comment on above: Performed By: #### C MP, ESR, CBC #### [address] Erythrocyte sedimentation ra te by Photometric methodOrdered By: Brianda Harris on 12-15-2022 ESR Photometric method (Bld) [Velocity] 44 mm/hr 0-29 [facility] Erythrocytes [#/volume] in B lood by Automated countOrdered By: Brianda Harris on 12-15-2022 RBC (Bld) [#/Vol] 5.01 10*6/uL High 3.60-5.00 [facility] Comment on above: Performed By: #### C MP, ESR, CBC #### [facility] [address] [place] [address] [place] Glucose [Mass/volume] in Ser um or PlasmaOrdered By: Brianda Harris on 12-15-2022 Glucose [Mass/Vol] 69 mg/dL Low 70-100 [facility] Comment on above: ADA recommended refe rence rangeRandom Glucose Reference Range is dependent on time and content of last meal. Glucose of more than 200 mg/dL in a nonstressed, ambulatory subject supports the diagnosis of Diabetes Mellitus. Result Comment: [place] om Glucose Reference Range is dependent on time and content of last meal. Glucose of more than 200 mg/dL in a nonstressed, ambulatory subject supports the diagnosis of Diabetes Mellitus. ADA recommended reference range Performed By: #### C MP, ESR, CBC #### [facility] [address] Hematocrit [Volume Fraction] of Blood by Automated countOrdered By: Brianda Harris on 12-15-2022 Hematocrit (Bld) [Volume fraction] 43.3 % Normal 34.0-46.4 [facility] Comment on above: Performed By: #### C MP, ESR, CBC #### [facility] [address] Hemoglobin [Mass/volume] in BloodOrdered By: Brianda Harris on 12-15-2022 Hemoglobin (Bld) [Mass/Vol] 14.5 g/dL Normal 11.8-15.4 [facility] Comment on above: Performed By: #### C MP, ESR, CBC #### [facility] [address] Leukocytes [#/volume] correc abena for nucleated erythrocytes in Blood by Automated counOrdered By: Brianda Harris on 12-15-2022 WBC corrected for nucl RBC Auto (Bld) [#/Vol] 11.5 10*3/uL 3.8-11.6 [facility] Leukocytes [#/volume] in Blo od by Automated countOrdered By: Brianda Harris on 12-15-2022 WBC (Bld) [#/Vol] 11.5 10*3/uL Normal 3.8-11.6 [facility] Comment on above: Performed By: #### C MP, ESR, CBC #### [facility] [address] Lymphocytes [#/volume] in Bl ood by Automated countOrdered By: Brianda Harris on 12-15-2022 Lymphocytes (Bld) [#/Vol] 2.9 10*3/uL Normal 1.00-4.8 [facility] Comment on above: Performed By: #### C MP, ESR, CBC #### [facility] [address] Lymphocytes/100 leukocytes i n Blood by Automated countOrdered By: Brianda Harris on 12-15-2022 Lymphocytes/100 WBC (Bld) 25.0 % Normal . [facility] Comment on above: Performed By: #### C MP, ESR, CBC #### [address] MCH [Entitic mass] by Automa abena countOrdered By: Brianda Harris on 12-15-2022 MCH (RBC) [Entitic mass] 29.0 pg Normal 24.7-34.3 [facility] Comment on above: Performed By: #### C MP, ESR, CBC #### [address] MCHC Auto (RBC) [Mass/Vol]Or dered By: Brianda Harris on 12-15-2022 MCHC (RBC) [Mass/Vol] 33.5 g/dL 32.0-35.0 [facility] MCV [Entitic volume] by Auto mated countOrdered By: Brianda Harris on 12-15-2022 MCV (RBC) [Entitic vol] 86.4 fL Normal 80-100 [facility] Comment on above: Performed By: #### C MP, ESR, CBC #### [place] [address] [place] Neutrophils [#/volume] in Bl ood by Automated countOrdered By: Brianda Harris on 12-15-2022 Neutrophils (Bld) [#/Vol] 7.1 10*3/uL Normal 1.8-7.7 [facility] Comment on above: Performed By: #### C MP, ESR, CBC #### [address] No Panel InformationOrdered By: Brianda Harris on 12-15-2022 Estimated GFR (CKD-EPI) > 60.0 mL/Min [facility] Creatinine Clearance (Chem N/A [facility] Nucleated erythrocytes [Pres ence] in Blood by Automated countOrdered By: Brianda Harris on 12-15-2022 Nucleated RBC Auto Ql (Bld) 0.1 /100{WBC} 0-0.5 [facility] Platelet mean volume [Entiti c volume] in Blood by Automated countOrdered By: Brianda Harris on 12-15-2022 Platelet mean volume (Bld) [Entitic vol] 9.2 fL Normal 6.3-10.7 [facility] Comment on above: Performed By: #### C MP, ESR, CBC #### [place] [address] [place] Platelets [#/volume] in Bloo d by Automated countOrdered By: Brianda Harris on 12-15-2022 Platelets (Bld) [#/Vol] 305 10*3/uL Normal 150-450 [facility] Comment on above: Performed By: #### C MP, ESR, CBC #### [place] [address] [place] Potassium [Moles/volume] in Serum or PlasmaOrdered By: Brianda Harris on 12-15-2022 Potassium [Moles/Vol] 3.8 mmol/L Normal 3.5-5.1 [facility] Comment on above: Performed By: #### C MP, ESR, CBC #### [place] [address] [place] Protein [Mass/volume] in Ser um or PlasmaOrdered By: Brianda Harris on 12-15-2022 Protein [Mass/Vol] 6.8 g/dL Normal 6.4-8.9 [facility] Comment on above: Performed By: #### C MP, ESR, CBC #### [address] Serum globulin measurement b y calculation (mass/volume)Ordered By: Brianda Harris on 12-15-2022 Globulin (S) [Mass/Vol] 3.0 g/dL Normal [facility] Comment on above: Performed By: #### C MP, ESR, CBC #### [address] Serum or plasma albumin/glob ulin mass ratioOrdered By: Brianda Harris on 12-15-2022 Albumin/Globulin [Mass ratio] 1.3 {ratio} [facility] Comment on above: Performed By: #### C MP, ESR, CBC #### [address] Serum or plasma anion gap de terminationOrdered By: Brianda Harris on 12-15-2022 Anion gap [Moles/Vol] 12.2 mmol/L Normal 6.0-15.0 [facility] Comment on above: Performed By: #### C MP, ESR, CBC #### [address] Sodium [Moles/volume] in Ser um or PlasmaOrdered By: Brianda Harris on 12-15-2022 Sodium [Moles/Vol] 137 mmol/L Normal 136-145 [facility] Comment on above: Performed By: #### C MP, ESR, CBC #### [address] Urea nitrogen [Mass/volume] in Serum or PlasmaOrdered By: Brianda Harris on 12-15-2022 Urea nitrogen [Mass/Vol] 27 mg/dL High 7-25 [facility] Comment on above: Performed By: #### C MP, ESR, CBC #### [address] [place] [address] [facility] CBC AUTO DIFFon 06-26-2022 BASO # 0.1 103/ul Normal 0.0-0.1 [facility] Comment on above: Performed By: #### C MADM, BNP, CMP #### [facility] [address] [place] [address] Dr. Marco Greer Basophils/100 WBC (Bld) 0.6 % Normal 0.2-2.0 [facility] Comment on above: Performed By: #### C MADM, BNP, CMP #### [facility] [address] [place] [address] Dr. Marco Greer EO # 0.2 103/ul Normal 0.0-0.7 [facility] Comment on above: Performed By: #### C MADM, BNP, CMP #### [facility] [address] [place] [address] Dr. Marco Greer Eosinophils/100 WBC (Bld) 2.1 % Normal 0.9-7.0 [facility] Comment on above: Performed By: #### C MADM, BNP, CMP #### [facility] [address] [place] [address] Dr. Marco Greer Erythrocyte distribution width (RBC) [Ratio] 17.3 % Critically high 11.0-15.0 [facility] Comment on above: Performed By: #### C MADM, BNP, CMP #### [facility] [address] [place] [address] Dr. Marco Greer Hematocrit (Bld) [Volume fraction] 40.2 % Normal 36.0-48.0 [facility] Comment on above: Performed By: #### C MADM, BNP, CMP #### [facility] [address] [place] [address] Dr. Marco Greer Hemoglobin (Bld) [Mass/Vol] 13.0 g/dL Normal 12.0-16.0 [facility] Comment on above: Performed By: #### C MADM, BNP, CMP #### [facility] [address] [place] [address] Dr. Marco Greer IG # 0.06 10e3/ul Critically high 0.00-0.03 [facility] Comment on above: Performed By: #### C MADM, BNP, CMP #### [facility] [address] [place] [address] Dr. Marco Greer IG % 0.6 % Critically high 0.0-0.5 [facility] Comment on above: Performed By: #### C MADM, BNP, CMP #### [facility] [address] [place] [address] Dr. Marco Greer LYMPH # 2.1 103/ul Normal 1.2-3.8 [facility] Comment on above: Performed By: #### C MADM, BNP, CMP #### [facility] [address] [place] [address] Dr. Marco Greer Lymphocytes/100 WBC (Bld) 19.6 % Critically low 20.5-60.0 [facility] Comment on above: Performed By: #### C MADM, BNP, CMP #### [facility] [address] [place] [address] Dr. Marco Greer MANUAL DIFF REQ NO Normal [facility] Comment on above: Performed By: #### C MADM, BNP, CMP #### [facility] [address] [place] [address] Dr. Marco Greer MCH (RBC) [Entitic mass] 27.3 pg Normal 26.7-34.0 [facility] Comment on above: Performed By: #### C MADM, BNP, CMP #### [facility] [address] [place] [address] Dr. Marco Greer MCHC (RBC) [Mass/Vol] 32.3 g/dL Normal 29.9-35.2 [facility] Comment on above: Performed By: #### C MADM, BNP, CMP #### [facility] [address] [place] [address] Dr. Marco Greer MCV (RBC) [Entitic vol] 84.5 fL Normal 81.0-99.0 [facility] Comment on above: Performed By: #### C MADM, BNP, CMP #### [facility] [address] [place] [address] [address] Marco Greer MONO # 0.9 103/ul Critically high 0.3-0.8 [facility] Comment on above: Performed By: #### C MADM, BNP, CMP #### [facility] [address] [place] [address] [address] Marco Greer Monocytes/100 WBC (Bld) 8.6 % Normal 1.7-12.0 [facility] Comment on above: Performed By: #### C MADM, BNP, CMP #### [facility] [address] [place] [address] Dr. Marco Greer NEUT # 7.4 103/ul Critically high 1.4-6.5 [facility] Comment on above: Performed By: #### C MADM, BNP, CMP #### [facility] [address] [place] [address] Dr. Marco Greer Neutrophils/100 WBC (Bld) 68.5 % Normal 43.0-75.0 [facility] Comment on above: Performed By: #### C MADM, BNP, CMP #### [facility] [address] [place] [address] Dr. Marco Greer Platelet mean volume (Bld) [Entitic vol] 9.6 fL Normal 9.5-13.5 [facility] Comment on above: Performed By: #### C MADM, BNP, CMP #### [facility] [address] [place] [address] Dr. Marco Greer PLT 283 103/ul Normal 150-450 [facility] Comment on above: Performed By: #### C MADM, BNP, CMP #### [facility] [address] [place] [address] Dr. Marco Greer RBC 4.76 106/ul Normal 4.20-5.40 [facility] Comment on above: Performed By: #### C MADM, BNP, CMP #### [facility] [address] [place] [address] Dr. Marco Greer WBC 10.7 103/ul Normal 4.0-11.0 [facility] Comment on above: Performed By: #### C MADM, BNP, CMP #### [facility] [address] [place] [address] [address] Marco Greer FREE T3on 06-26-2022 FREE T3 2.47 pg/mlL Normal 2.18-3.98 [facility] Comment on above: Performed By: #### C MADM, BNP, CMP #### [facility] [address] [place] [address] [address] Marco Greer FREE T4on 06-26-2022 Free T4 [Mass/Vol] 1.39 ng/dL Normal 0.76-1.46 [facility] Comment on above: Performed By: #### C MP #### [facility] [address] [place] [address] Dr. Marco Greer LIPID PROFILEon 06-26-2022 CHOL-HDL RATIO NORM SEE BELOW Normal [facility] Comment on above: Result Comment: 3.3 - 4.4 LOW RISK 4.4 - 7.1 AVERAGE RISK 7.1 - 11.0 MODERATE RISK >11.0 HIGH RISK Performed By: #### C MADM, BNP, CMP #### [facility] [address] [place] [address] [address] Marco Greer Cholesterol [Mass/Vol] 234 mg/dL Critically high <=200 [facility] Comment on above: Performed By: #### C MADM, BNP, CMP #### [facility] [address] [place] [address] [address] Marco Greer Cholesterol in HDL [Mass/Vol] 63 mg/dL Critically high 40-60 [facility] Comment on above: Performed By: #### C MADM, BNP, CMP #### [facility] [address] [place] [address] [address] Marco Greer Cholesterol in LDL [Mass/Vol] 139.2 mg/dL Normal [facility] Comment on above: Performed By: #### C MADM, BNP, CMP #### [facility] [address] [address] [address] Marco Greer Cholesterol.total/Chol esterol in HDL [Mass ratio] 3.7 {ratio} Normal [facility] Comment on above: Performed By: #### C MADM, BNP, CMP #### [facility] [address] [address] [address] Marco Greer HDL NORMAL > or = 60 mg/dl - LO W CARDIOVASCULAR RISK <40 mg/dl - HIGH CARDIOVASCULAR RISK Normal [facility] Comment on above: Performed By: #### C MADM, BNP, CMP #### [facility] [address] [address] [address] Marco Greer LDL CALC NORMAL SEE BELOW Normal [facility] Comment on above: Result Comment: <100 mg/dl OPTIMAL 100 - 129 mg/dl NEAR OR ABOVE OPTIMAL 130 - 159 mg/dl BORDERLINE HIGH 160 - 189 mg/dl HIGH >190 mg/dl VERY HIGH Performed By: #### C MADM, BNP, CMP #### [facility] [address] [address] [address] Marco Greer Triglyceride [Mass/Vol] 159 mg/dL Critically high <=150 [facility] Comment on above: Performed By: #### C MADM, BNP, CMP #### [facility] [address] [address] [address] Marco Greer VLDL CALC 31.8 mg/dL Normal [facility] Comment on above: Performed By: #### C MADM, BNP, CMP #### [facility] [address] [place] [address] Dr. Marco Greer LIVER PROFILEon 06-26-2022 Albumin [Mass/Vol] 3.1 g/dL Critically low 3.4-5.[address] [facility] Comment on above: Performed By: #### C MADM, BNP, CMP #### [facility] [address] [address] [address] Marco Greer Albumin/Globulin [Mass ratio] 0.7 {ratio} Normal [facility] Comment on above: Performed By: #### C MADM, BNP, CMP #### [facility] [address] [address] [address] Marco Greer ALP [Catalytic activity/Vol] 75 U/L Normal 46-116 [facility] Comment on above: Performed By: #### C MADM, BNP, CMP #### [facility] [address] [place] [address] Dr. Marco Greer ALT [Catalytic activity/Vol] 28 U/L Normal 14-59 [facility] Comment on above: Performed By: #### C MADM, BNP, CMP #### [facility] [address] [place] [address] Dr. Marco Greer AST [Catalytic activity/Vol] 22 U/L Normal 15-37 [facility] Comment on above: Performed By: #### C MADM, BNP, CMP #### [facility] [address] [place] [address] Dr. Marco Greer BILI, CONJUGATED 0.1 mg/dL Normal 0.0-0.2 [facility] Comment on above: Performed By: #### C MADM, BNP, CMP #### [facility] [address] [place] [address] Dr. Marco Greer Bilirubin [Mass/Vol] 0.3 mg/dL Normal 0.2-1.0 [facility] Comment on above: Performed By: #### C MADM, BNP, CMP #### [facility] [address] [place] [address] Dr. Marco Greer Globulin (S) [Mass/Vol] 4.3 g/dL Normal [facility] Comment on above: Performed By: #### C MADM, BNP, CMP #### [facility] [address] [place] [address] Dr. Marco Greer Protein [Mass/Vol] 7.4 g/dL Normal 6.4-8.2 [facility] Comment on above: Performed By: #### C MADM, BNP, CMP #### [facility] [address] [place] [address] Dr. Marco Greer PROF CHEM 8 (BAS METB)on Anion gap [Moles/Vol] 14.3 mmol/L Normal [facility] Comment on above: Performed By: #### F T3, TSH, BMP, LIVER, LIPID #### [facility] [address] [address] [address] Marco Greer Calcium [Mass/Vol] 9.2 mg/dL Normal 8.5-10.1 [facility] Comment on above: Performed By: #### F T3, TSH, BMP, LIVER, LIPID #### [facility] [address] [address] [address] Marco Greer Chloride [Moles/Vol] 100 mmol/L Normal 98-107 [facility] Comment on above: Performed By: #### F T3, TSH, BMP, LIVER, LIPID #### [facility] [address] [address] [address] Marco Greer CO2 [Moles/Vol] 27.2 mmol/L Normal 21.0-32.0 [facility] Comment on above: Performed By: #### F T3, TSH, BMP, LIVER, LIPID #### [facility] [address] [address] [address] Marco Greer Creatinine [Mass/Vol] 0.94 mg/dL Normal 0.55-1.02 [facility] Comment on above: Performed By: #### F T3, TSH, BMP, LIVER, LIPID #### [facility] [address] [address] [address] Marco Greer EGFR-AF [place]IZ[place] >60 Normal >=60 [facility] Comment on above: Performed By: #### F T3, TSH, BMP, LIVER, LIPID #### [facility] [address] [address] [address] Marco Greer EGFR-NON AF [place]IZ[place] 57 mL/min/1.73m2 Critically low >=60 [facility] Comment on above: Performed By: #### F T3, TSH, BMP, LIVER, LIPID #### [facility] [address] [address] [address] Marco Greer Glucose [Mass/Vol] 84 mg/dL Normal 74-106 [facility] Comment on above: Performed By: #### F T3, TSH, BMP, LIVER, LIPID #### [facility] [address] [address] [address] Marco Greer Potassium [Moles/Vol] 4.5 mmol/L Normal 3.5-5.1 [facility] Comment on above: Performed By: #### F T3, TSH, BMP, LIVER, LIPID #### [facility] [address] [address] [address] Marco Greer Sodium [Moles/Vol] 137 mmol/L Normal 136-145 [facility] Comment on above: Performed By: #### F T3, TSH, BMP, LIVER, LIPID #### [facility] [address] [address] [address] Marco Greer Urea nitrogen [Mass/Vol] 21.0 mg/dL Critically high 7.0-18.0 [facility] Comment on above: Performed By: #### F T3, TSH, BMP, LIVER, LIPID #### [facility] [address] [place] [address] Dr. Marco Greer Urea nitrogen/Creatinine [Mass ratio] 22.3 mg/mg Normal [facility] Comment on above: Performed By: #### F T3, TSH, BMP, LIVER, LIPID #### [facility] [address] [place] [address] Dr. Marco Greer [facility] 56 mm/hr Critically high <=30 [facility] Comment on above: Performed By: #### C MP #### [facility] [address] [place] [address] Dr. Marco Greer TSHon 06-26-2022 TSH 0.286 uIU/mL Critically low 0.358-3.74 0 [facility] Comment on above: Performed By: #### C MADM, BNP, CMP #### [facility] [address] [place] [address] Dr. Marco Greer PROF CHEM 8 (BAS METB)on Anion gap [Moles/Vol] 14.2 mmol/L Normal [facility] Comment on above: Performed By: #### C MADM, BNP, CMP #### [facility] [address] [place] [address] Dr. Marco Greer Calcium [Mass/Vol] 9.0 mg/dL Normal 8.5-10.1 [facility] Comment on above: Performed By: #### C MADM, BNP, CMP #### [facility] [address] [place] [address] Dr. Marco Greer Chloride [Moles/Vol] 102 mmol/L Normal 98-107 [facility] Comment on above: Performed By: #### C MADM, BNP, CMP #### [facility] [address] [place] [address] Dr. Marco Greer CO2 [Moles/Vol] 27.3 mmol/L Normal 21.0-32.0 [facility] Comment on above: Performed By: #### C MADM, BNP, CMP #### [facility] [address] [place] [address] Dr. Marco Greer Creatinine [Mass/Vol] 1.18 mg/dL Critically high 0.55-1.02 [facility] Comment on above: Performed By: #### C MADM, BNP, CMP #### [facility] [address] [place] [address] Dr. Marco Greer EGFR-AF [place] 53 mL/min/1.73m2 Critically low >=60 [facility] Comment on above: Performed By: #### C MADM, BNP, CMP #### [facility] [address] [place] [address] Dr. Marco Greer EGFR-NON AF [place]IZ[place] 44 mL/min/1.73m2 Critically low >=60 [facility] Comment on above: Performed By: #### C MADM, BNP, CMP #### [facility] [address] [place] [address] Dr. Marco Greer Glucose [Mass/Vol] 115 mg/dL Critically high 74-106 [facility] Comment on above: Performed By: #### C MADM, BNP, CMP #### [facility] [address] [place] [address] Dr. Marco Greer Potassium [Moles/Vol] 3.5 mmol/L Normal 3.5-5.1 [facility] Comment on above: Performed By: #### C MADM, BNP, CMP #### [facility] [address] [place], [place] [address] Dr. Marco Greer Sodium [Moles/Vol] 140 mmol/L Normal 136-145 [facility] Comment on above: Performed By: #### C MADM, BNP, CMP #### [facility] [address] [place], [place] [address] Dr. Marco Greer Urea nitrogen [Mass/Vol] 31.0 mg/dL Critically high 7.0-18.0 [facility] Comment on above: Performed By: #### C MADM, BNP, CMP #### [facility] [address] [place], [place] [address] Dr. Marco Greer Urea nitrogen/Creatinine [Mass ratio] 26.3 mg/mg Normal [facility] Comment on above: Performed By: #### C MADM, BNP, CMP #### [facility] [address] [place], [place] [address] Dr. Marco Greer Cardiovasc Arrhythmia Result son 04-01-2022 Cardiovas Arrhythmia Results Reason For Visit Event Monitor: Costa is only wearing monitor for 5 days CELY is here for the application of a 30 day event monitor in office., Diagnosis: lightheaded and PVC Ordering Physician: Dr. Miri Hill MD Enrollment sent to: [employer] Monitor number [id number] applied. Procedure Date I received for dictation [...] Date/TimeProviderSpecialty Site 06/19/2022 03:00 Miri Gray MDCardiology703 [facility] [address] [place] 250 DO Signatures Electronically signed by : Radha Copeland MD; Apr 13 2022 9:10AM EST (Author) Normal [facility] Office Visit (Cardiology)on 03-27-2022 Follow-up visit Diagnoses/Problems [...] days; Status:Active - Perform Order,Retrospective Authorization; Requested for:[id number]; SocHx: Former smoker Tobacco Use Screening; Status:Complete; [...] Recorded: 27Mar2022 11:52AM Heart Rate60, L Radial Nvlujttn639, LUE, Sitting Tuwrgrvhd88, LUE, Sitting Height5 ft 4 in Tmrgta392 lb BMI Gxqrrpztsl45.43 kg/m2 BSA Calculated1.57 Tobacco Useb) No PHQ-2 [...] office re (more content not included)... Normal [facility] Tobacco Screening.on 023 Adult depression screening assessment No [facility] 250 DO Work Phone: Fall risk assessment a) No falls within the last year [facility]-[place] 250 DO Work Phone: Tobacco use status CPHS b) No [facility]-[place] 250 DO Work Phone: CBC AUTO DIFFon 03-11-2022 BASO # 0.1 103/ul Normal 0.0-0.1 [facility] Comment on above: Performed By: #### C MADM, BNP, CMP #### [facility] [address] [place] [address] Dr. Marco Greer Basophils/100 WBC (Bld) 0.9 % Normal 0.2-2.0 [facility] Comment on above: Performed By: #### C MADM, BNP, CMP #### [facility] [address] [address] [address] Marco Greer EO # 0.9 103/ul Critically high 0.0-0.7 [facility] Comment on above: Performed By: #### C MADM, BNP, CMP #### [facility] [address] [place] [address] Dr. Marco Greer Eosinophils/100 WBC (Bld) 9.3 % Critically high 0.9-7.0 [facility] Comment on above: Performed By: #### C MADM, BNP, CMP #### [facility] [address] [place] [address] Dr. Marco Greer Erythrocyte distribution width (RBC) [Ratio] 15.5 % Critically high 11.0-15.0 [facility] Comment on above: Performed By: #### C MADM, BNP, CMP #### [facility] [address] [place] [address] Dr. Marco Greer Hematocrit (Bld) [Volume fraction] 37.4 % Normal 36.0-48.0 [facility] Comment on above: Performed By: #### C MADM, BNP, CMP #### [facility] [address] [place] [address] Dr. Marco Greer Hemoglobin (Bld) [Mass/Vol] 11.9 g/dL Critically low 12.0-16.0 [facility] Comment on above: Performed By: #### C MADM, BNP, CMP #### [facility] [address] [place] [address] Dr. Marco Greer IG # 0.03 10e3/ul Normal 0.00-0.03 [facility] Comment on above: Performed By: #### C MADM, BNP, CMP #### [facility] [address] [place] [address] Dr. Marco Greer IG % 0.3 % Normal 0.0-0.5 [facility] Comment on above: Performed By: #### C MADM, BNP, CMP #### [facility] [address] [place] [address] Dr. Marco Greer LYMPH # 2.0 103/ul Normal 1.2-3.8 [facility] Comment on above: Performed By: #### C MADM, BNP, CMP #### [facility] [address] [place] [address] Dr. Marco Greer Lymphocytes/100 WBC (Bld) 20.9 % Normal 20.5-60.0 [facility] Comment on above: Performed By: #### C MADM, BNP, CMP #### [facility] [address] [place] [address] Dr. Marco Greer MANUAL DIFF REQ NO Normal [facility] Comment on above: Performed By: #### C MADM, BNP, CMP #### [facility] [address] [place] [address] Dr. Marco Greer MCH (RBC) [Entitic mass] 27.2 pg Normal 26.7-34.0 [facility] Comment on above: Performed By: #### C MADM, BNP, CMP #### [facility] [address] [place] [address] Dr. Marco Greer MCHC (RBC) [Mass/Vol] 31.8 g/dL Normal 29.9-35.2 [facility] Comment on above: Performed By: #### C MADM, BNP, CMP #### [facility] [address] [place] [address] Dr. Marco Greer MCV (RBC) [Entitic vol] 85.6 fL Normal 81.0-99.0 [facility] Comment on above: Performed By: #### C MADM, BNP, CMP #### [facility] [address] [place] [address] Dr. Marco Greer MONO # 0.9 103/ul Critically high 0.3-0.8 [facility] Comment on above: Performed By: #### C MADM, BNP, CMP #### [facility] [address] [place] [address] Dr. Marco Greer Monocytes/100 WBC (Bld) 9.1 % Normal 1.7-12.0 [facility] Comment on above: Performed By: #### C MADM, BNP, CMP #### [facility] [address] [place] [address] Dr. Marco Greer NEUT # 5.6 103/ul Normal 1.4-6.5 [facility] Comment on above: Performed By: #### C MADM, BNP, CMP #### [facility] [address] [place] [address] Dr. Marco Greer Neutrophils/100 WBC (Bld) 59.5 % Normal 43.0-75.0 [facility] Comment on above: Performed By: #### C MADM, BNP, CMP #### [facility] [address] [place] [address] Dr. Marco Greer Platelet mean volume (Bld) [Entitic vol] 9.9 fL Normal 9.5-13.5 [facility] Comment on above: Performed By: #### C MADM, BNP, CMP #### [facility] [address] [place] [address] Dr. Marco Greer PLT 343 103/ul Normal 150-450 [facility] Comment on above: Performed By: #### C MADM, BNP, CMP #### [facility] [address] [place] [address] Dr. Marco Greer RBC 4.37 106/ul Normal 4.20-5.40 [facility] Comment on above: Performed By: #### C MADM, BNP, CMP #### [facility] [address] [place] [address] Dr. Marco Greer WBC 9.4 103/ul Normal 4.0-11.0 [facility] Comment on above: Performed By: #### C MADM, BNP, CMP #### [facility] [address] [place] [address] Dr. Marco Greer CRPon 03-11-2022 CRP [Mass/Vol] mg/L Normal <=1.0 [facility] Comment on above: Performed By: #### C MP #### [facility] [address] [place] [address] Dr. Marco Greer FREE T3on 03-11-2022 FREE T3 2.74 pg/mlL Normal 2.18-3.98 [facility] Comment on above: Performed By: #### C MP #### [facility] [address] [place] [address] Dr. Marco Greer FREE T4on 03-11-2022 Free T4 [Mass/Vol] 1.41 ng/dL Normal 0.76-1.46 [facility] Comment on above: Performed By: #### C MADM, BNP, CMP #### [facility] [address] [place] [address] Dr. Marco Greer LIVER PROFILEon 03-11-2022 Albumin [Mass/Vol] 3.0 g/dL Critically low 3.4-5.0 Th e [facility] Comment on above: Performed By: #### C MP #### [facility] [address] [place] [address] Dr. Marco Greer Albumin/Globulin [Mass ratio] 0.9 {ratio} Normal [facility] Comment on above: Performed By: #### C MP #### [facility] [address] [place] [address] Dr. Marco Greer ALP [Catalytic activity/Vol] 89 U/L Normal 46-116 [facility] Comment on above: Performed By: #### C MP #### [facility] [address] [place] [address] Dr. Marco Greer ALT [Catalytic activity/Vol] 19 U/L Normal 14-59 [facility] Comment on above: Performed By: #### C MP #### [facility] [address] [place] [address] Dr. Marco Greer AST [Catalytic activity/Vol] 22 U/L Normal 15-37 [facility] Comment on above: Performed By: #### C MP #### [facility] [address] [place] [address] Dr. Marco Greer BILI, CONJUGATED 0.1 mg/dL Normal 0.0-0.2 [facility] Comment on above: Performed By: #### C MP #### [facility] [address] [place] [address] Dr. Marco Greer Bilirubin [Mass/Vol] 0.3 mg/dL Normal 0.2-1.0 [facility] Comment on above: Performed By: #### C MP #### [facility] [address] [place] [address] Dr. Marco Greer Globulin (S) [Mass/Vol] 3.5 g/dL Normal [facility] Comment on above: Performed By: #### C MP #### [facility] [address] [address] [address] Marco Greer Protein [Mass/Vol] 6.5 g/dL Normal 6.4-8.2 [facility] Comment on above: Performed By: #### C MP #### [facility] [address] [place] [address] Dr. Marco Greer PROF CHEM 8 (BAS METB)on Anion gap [Moles/Vol] 11.3 mmol/L Normal [facility] Comment on above: Performed By: #### C MP #### [facility] [address] [place] [address] Dr. Marco Greer Calcium [Mass/Vol] 8.7 mg/dL Normal 8.5-10.1 [facility] Comment on above: Performed By: #### C MP #### [facility] [address] [place] [address] Dr. Marco Greer Chloride [Moles/Vol] 103 mmol/L Normal 98-107 [facility] Comment on above: Performed By: #### C MP #### [facility] [address] [place] [address] Dr. Marco Greer CO2 [Moles/Vol] 26.6 mmol/L Normal 21.0-32.0 [facility] Comment on above: Performed By: #### C MP #### [facility] [address] [place] [address] Dr. Marco Greer Creatinine [Mass/Vol] 0.88 mg/dL Normal 0.55-1.02 [facility] Comment on above: Performed By: #### C MP #### [facility] [address] [place] [address] Dr. Marco Greer EGFR-AF [place] >60 Normal >=60 [facility] Comment on above: Performed By: #### C MP #### [facility] [address] [place] [address] Dr. Marco Greer EGFR-NON AF [place]IZ[place] >60 Normal >=60 [facility] Comment on above: Performed By: #### C MP #### [facility] [address] [address] [address] Marco Greer Glucose [Mass/Vol] 91 mg/dL Normal 74-106 [facility] Comment on above: Performed By: #### C MP #### [facility] [address] [address] [address] Marco Greer Potassium [Moles/Vol] 3.9 mmol/L Normal 3.5-5.1 [facility] Comment on above: Performed By: #### C MP #### [facility] [address] [address] [address] Marco Greer Sodium [Moles/Vol] 137 mmol/L Normal 136-145 [facility] Comment on above: Performed By: #### C MP #### [facility] [address] [address] [address] Marco Greer Urea nitrogen [Mass/Vol] 20.0 mg/dL Critically high 7.0-18.0 [facility] Comment on above: Performed By: #### C MP #### [facility] [address] [address] [address] Marco Greer Urea nitrogen/Creatinine [Mass ratio] 22.7 mg/mg Normal [facility] Comment on above: Performed By: #### C MP #### [facility] [address] [address] [address] Marco Greer SED RATE [facility] 2021 SED RATE 60 mm/hr Critically high <=30 [facility] Comment on above: Performed By: #### C MADM, BNP, CMP #### [facility] [address] [address] [address] Marco Greer TSHon 03-11-2022 TSH 0.600 uIU/mL Normal 0.358-3.74 0 [facility] Comment on above: Performed By: #### C MP #### [facility] [address] [place] [address] Dr. Marco Greer Albumin [Mass/volume] in Ser um or PlasmaOrdered By: Brianda Harris on 03-04-2022 Albumin [Mass/Vol] 3.1 g/dL 3.2-5.5 [facility] Basophils Auto (Bld) [#/Vol] Ordered By: Brianda Harris on 03-04-2022 Basophils (Bld) [#/Vol] 0.1 10*3/uL 0.0-0.2 [facility] Basophils/100 WBC Auto (Bld) Ordered By: Brianda Harris on 03-04-2022 Basophils/100 WBC (Bld) 0.5 % . [facility] Creatinine and Glomerular fi ltration rate.predicted panel (S/P/Bld)Ordered By: Brianda Harris on 03-04-2022 Creatinine [Mass/Vol] 0.88 mg/dL 0.44-1.03 [facility] Eosinophils Auto (Bld) [#/Vo l]Ordered By: Brianda Harris on 03-04-2022 Eosinophils (Bld) [#/Vol] 0.0 10*3/uL 0.0-0.45 [facility] Eosinophils/100 WBC Auto (Bl d)Ordered By: Brianda Harris on 03-04-2022 Eosinophils/100 WBC (Bld) 0.4 % . [facility] Erythrocyte distribution wid th Auto (RBC) [Ratio]Ordered By: Brianda Harris on 03-04-2022 Erythrocyte distribution width (RBC) [Ratio] 15.7 % 11.9-15.3 [facility] Erythrocyte sedimentation ra te by Photometric methodOrdered By: Brianda Harris on 03-04-2022 ESR Photometric method (Bld) [Velocity] 59 mm/hr 0-29 [facility] Estimated glomerular filtrat ion rate (GFR) non- AmericanOrdered By: Brianda Harris on 03-04-2022 GFR/1.73 sq M.predicted among non-blacks MDRD (S/P/Bld) [Vol rate/Area] > 60 mL/Min [facility] Globulin Calc (S) [Mass/Vol] Ordered By: Brianda Harris on 03-04-2022 Globulin (S) [Mass/Vol] 3.7 g/dL [facility] Hematocrit Auto (Bld) [Volum e fraction]Ordered By: Brianda Harris on 03-04-2022 Hematocrit (Bld) [Volume fraction] 36.5 % 34.0-46.4 [facility] Hemoglobin [Mass/volume] in BloodOrdered By: Brianda Harris on 03-04-2022 Hemoglobin (Bld) [Mass/Vol] 11.7 g/dL 11.8-15.4 [facility] Leukocytes [#/volume] correc abena for nucleated erythrocytes in Blood by Automated counOrdered By: Brianda Harris on 03-04-2022 WBC corrected for nucl RBC Auto (Bld) [#/Vol] 10.4 10*3/uL 3.8-11.6 [facility] Lymphocytes Auto (Bld) [#/Vo l]Ordered By: Brianda Harris on 03-04-2022 Lymphocytes (Bld) [#/Vol] 0.9 10*3/uL 1.00-4.8 [facility] Lymphocytes/100 WBC Auto (Bl d)Ordered By: Brianda Harris on 03-04-2022 Lymphocytes/100 WBC (Bld) 8.5 % . [facility] MCH Auto (RBC) [Entitic mass ]Ordered By: Brianda Harris on 03-04-2022 MCH (RBC) [Entitic mass] 26.7 pg 24.7-34.3 [facility] MCHC Auto (RBC) [Mass/Vol]Or dered By: Brianda Harris on 03-04-2022 MCHC (RBC) [Mass/Vol] 31.9 g/dL 32.0-35.0 [facility] MCV Auto (RBC) [Entitic vol] Ordered By: Brianda Harris on 03-04-2022 MCV (RBC) [Entitic vol] 83.8 fL 80-100 [facility] Monocytes Auto (Bld) [#/Vol] Ordered By: Brianda Harris on 03-04-2022 Monocytes (Bld) [#/Vol] 0.2 10*3/uL 0.0-0.8 [facility] Monocytes/100 WBC Auto (Bld) Ordered By: Brianda Harris on 03-04-2022 Monocytes/100 WBC (Bld) 2.3 % . [facility] Neutrophils Auto (Bld) [#/Vo l]Ordered By: Brianda Harris on 03-04-2022 Neutrophils (Bld) [#/Vol] 9.2 10*3/uL 1.8-7.7 [facility] Neutrophils/100 WBC Auto (Bl d)Ordered By: Brianda Harris on 03-04-2022 Neutrophils/100 WBC (Bld) 88.3 % . [facility] No Panel InformationOrdered By: Brianda Harris on 03-04-2022 Estimated GFR () > 60 mL/Min [facility] Comment on above: GFR estimated refere nce range: According to KDOQI guidelines, <60 ml/min/1.73m2 is sufficient to diagnose a patient with chronic kidney disease. Pharmacy Creatinine Clearance (Chem N/A [facility] Nucleated erythrocytes [Pres ence] in Blood by Automated countOrdered By: Brianda Harris on 03-04-2022 Nucleated RBC Auto Ql (Bld) 0.0 /100{WBC} 0-0.5 [facility] Platelet mean volume Auto (B ld) [Entitic vol]Ordered By: Brianda Harris on 03-04-2022 Platelet mean volume (Bld) [Entitic vol] 8.5 fL 6.3-10.7 [facility] Platelets Auto (Bld) [#/Vol] Ordered By: Brianda Harris on 03-04-2022 Platelets (Bld) [#/Vol] 395 10*3/uL 150-450 [facility] Protein [Mass/volume] in Ser um or PlasmaOrdered By: Brianda Harris on 03-04-2022 Protein [Mass/Vol] 6.8 g/dL 6.1-7.9 [facility] RBC Auto (Bld) [#/Vol]Ordere d By: Brianda Harris on 03-04-2022 RBC (Bld) [#/Vol] 4.36 10*6/uL 3.60-5.00 [facility] Serum or plasma alanine kenny otransferase measurement without P-5'-P (enzymatic activiOrdered By: Brianda Harris on 03-04-2022 ALT No additional P-5'-P [Catalytic activity/Vol] 25 U/L 10-60 [facility] Serum or plasma albumin/glob ulin mass ratioOrdered By: Brianda Harris on 03-04-2022 Albumin/Globulin [Mass ratio] 0.8 {ratio} [facility] Serum or plasma alkaline lisy sphatase measurement (enzymatic activity/volume)Ordered By: Brianda Harris on 03-04-2022 ALP [Catalytic activity/Vol] 87 U/L 32-92 [facility] Serum or plasma anion gap de terminationOrdered By: Brianda Harris on 03-04-2022 Anion gap [Moles/Vol] 12.6 mmol/L 6.0-15.0 [facility] Serum or plasma aspartate am inotransferase measurement (enzymatic activity/volume)Ordered By: Brianda Harris on 03-04-2022 AST [Catalytic activity/Vol] 29 U/L 10 [facility] Serum or plasma calcium rashmi urement (mass/volume)Ordered By: Brianda Harris on 03-04-2022 Calcium [Mass/Vol] 8.9 mg/dL 8.2-10.2 [facility] Serum or plasma chloride reece surement (moles/volume)Ordered By: Brianda Harris on 03-04-2022 Chloride [Moles/Vol] 98 mmol/L 95-114 [facility] Serum or plasma glucose rashmi urement (mass/volume)Ordered By: Brianda Harris on 03-04-2022 Glucose [Mass/Vol] 109 mg/dL 70-100 [facility] Comment on above: ADA recommended refe rence rangeRandom Glucose Reference Range is dependent on time and content of last meal. Glucose of more than 200 mg/dL in a nonstressed, ambulatory subject supports the diagnosis of Diabetes Mellitus. Serum or plasma potassium me asurement (moles/volume)Ordered By: Brianda Harris on 03-04-2022 Potassium [Moles/Vol] 3.6 mmol/L 3.5-5.1 [facility] Serum or plasma sodium measu rement (moles/volume)Ordered By: Brianda Harris on 03-04-2022 Sodium [Moles/Vol] 131 mmol/L 136-146 [facility] Serum or plasma total biliru bin measurement (mass/volume)Ordered By: Brianda Harris on 03-04-2022 Bilirubin [Mass/Vol] 0.5 mg/dL 0.3-1.2 [facility] Serum or plasma total carbon dioxide measurement (moles/volume)Ordered By: Brianda Harris on 03-04-2022 CO2 [Moles/Vol] 24.0 mmol/L 22.0-30.0 [facility] Serum or plasma urea nitroge n measurement (mass/volume)Ordered By: Brianda Harris on 03-04-2022 Urea nitrogen [Mass/Vol] 15 mg/dL 9-23 [facility] WBC Auto (Bld) [#/Vol]Ordere d By: Brianda Harris on 03-04-2022 WBC (Bld) [#/Vol] 10.4 10*3/uL 3.8-11.6 [facility] Electrocardiogram 12 Leadon 02-27-2022 Electrocardiogram 12 Lead Ventricular Rate 61 Atrial Rate 61 P-R Interval 172 QRS Duration 90 Q-T Interval 446 QTC Calculation(Bazett) 448 P Jean 64 R Jean 27 T Jean 95 QRS Count 11 Q Onset 221 [...] Gaona ([id number]) on 03/02/2022 2:16:11 PM Normal [facility] No Panel Informationon 02-27 [email or web address] ?RetrieveTestByDateTime?Pa gwjglJB=[id number]&Date=&Time=13%3a11%3a48% 3a00&TestType=ECG&Site=1&O utputType=PDF&Ext=PDF [facility] 250 DO Work Phone: Sinus rhythm with occasional Premature ventricular complexes [facility] 250 DO Work Phone: Abnormal [facility] 250 DO Work Phone: [phone] [facility] 250 DO Work Phone: 444 1 [facility] 250 DO Work Phone: 188 1 [facility] 250 DO Work Phone: 135 1 [facility] 250 DO Work Phone: 221 1 [facility] 250 DO Work Phone: 11 1 [facility] 250 DO Work Phone: 95 1 [facility] 250 DO Work Phone: 27 1 [facility] 250 DO Work Phone: 64 1 [facility] 250 DO Work Phone: 446 1 [facility] 250 DO Work Phone: 90 1 [facility] 250 DO Work Phone: 172 1 [facility] 250 DO Work Phone: 61 1 [facility] 250 DO Work Phone: Office Visit (Cardiac Surger y)on 02-27-2022 Follow-up visit Diagnoses/Problems Assessed CAD (coronary artery disease) (414.00) (I25.10) S/P CABG x 3 (V45.81) (Z95.1) Orders CAD (coronary artery disease) Electrocardiogram 12 Lead; Status:Complete; Done: [id number] 01:23PM S/P CABG x 3 Cardiac Rehab Referral Evaluation and Treatment BELLVUE Status: Hold For - Scheduling,Retrospective By Protocol Authorization Requested for: [id number] Agreement : I agree to have my [...] 1 tablet 2x/day. Vitals Vital Signs Recorded: [id number] 01:19PM Heart Rate61 Sebdldqr655, LUE, Sitting Jslpqcvzj29, LUE, Sitting Height5 ft 4 in Udgjbw678 lb 2 oz BMI Zxlafryvae33.79 kg/m2 BSA Calculated1.58 Tobacco Useb) No Falls Screening (Age 18+)a) No falls within the last year O2 Jthyxcmdqm16, RA Pain Scale0/10 Physical Exam On examination [...] 3. COMPARISON: Chest radiograph 01/24/2022 ACCESSION NUMBER(S): [id number] ORDERING CLINICIAN: ALBIN PIERCE FINDINGS: PA and [...] as stated. This study was interpreted at [facility], [place], [place]. Electronically signed by: Keagan ROSARIO MD Normal [facility] Tobacco Screening.on 022 Fall risk assessment a) No falls within the last year [facility] [address] [place] Work Phone: Tobacco use status [facility] b) No [facility] [address] [place] Work Phone: Creatinine and Glomerular fi ltration rate.predicted panel (S/P/Bld)Ordered By: Kvng Romo on 02-24-2022 Creatinine [Mass/Vol] 0.81 mg/dL 0.44-1.03 [facility] Estimated glomerular filtrat ion rate (GFR) non- AmericanOrdered By: Kvng Romo on 02-24-2022 GFR/1.73 sq M.predicted among non-blacks MDRD (S/P/Bld) [Vol rate/Area] > 60 mL/Min [facility] No Panel InformationOrdered By: Kvng Romo on 02-24-2022 Estimated GFR () > 60 mL/Min [facility] Comment on above: GFR estimated refere nce range: According to KDOQI guidelines, <60 ml/min/1.73m2 is sufficient to diagnose a patient with chronic kidney disease. Pharmacy Creatinine Clearance (Chem N/A [facility] Serum or plasma anion gap de terminationOrdered By: Kvng Romo on 02-24-2022 Anion gap [Moles/Vol] 15.0 mmol/L 6.0-15.0 [facility] Serum or plasma calcium rashmi urement (mass/volume)Ordered By: Kvng Romo on 02-24-2022 Calcium [Mass/Vol] 9.1 mg/dL 8.2-10.2 [facility] Serum or plasma chloride reece surement (moles/volume)Ordered By: Kvng Romo on 02-24-2022 Chloride [Moles/Vol] 96 mmol/L 95-114 [facility] Serum or plasma glucose rashmi urement (mass/volume)Ordered By: Kvng Romo on 02-24-2022 Glucose [Mass/Vol] 77 mg/dL 70-100 [facility] Comment on above: ADA recommended refe rence rangeRandom Glucose Reference Range is dependent on time and content of last meal. Glucose of more than 200 mg/dL in a nonstressed, ambulatory subject supports the diagnosis of Diabetes Mellitus. Serum or plasma potassium me asurement (moles/volume)Ordered By: Kvng Romo on 02-24-2022 Potassium [Moles/Vol] 3.9 mmol/L 3.5-5.1 [facility] Serum or plasma sodium measu rement (moles/volume)Ordered By: Kvng Romo on 02-24-2022 Sodium [Moles/Vol] 129 mmol/L 136-146 [facility] Serum or plasma total carbon dioxide measurement (moles/volume)Ordered By: Kvng Romo on 02-24-2022 CO2 [Moles/Vol] 21.9 mmol/L 22.0-30.0 [facility] Serum or plasma urea nitroge n measurement (mass/volume)Ordered By: Kvng Romo on 02-24-2022 Urea nitrogen [Mass/Vol] 10 mg/dL 9- [facility] Initial Visit (Nephrology)on 02-17-2022 Initial Visit (Nephrology) Diagnoses/Problems Benign essential hypertension (401.1) (I10) S/P CABG x 3 (V45.81) (Z95.1) 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 She was seen also secondary to hyponatremia she has chronic hyponatremia per records with baseline sodium per the records of 04 12- She was on urea packets, Lasix as needed and a sodium bicarbonate when she was in the hospital in [place] In December a urine osmolality was measured [...] MOUTH DA (more content not included)... Normal [employer] Tobacco Screening.on 022 Fall risk assessment a) No falls within the last year [facility] Work Phone: Tobacco use status [facility] b) No [facility] Work Phone: Office Visit (Cardiology)on 02-13-2022 Follow-up [...] IO EKG Electrocardiogram- 12 Lead; Status:Complete; Done: [id number] CAD (coronary artery disease), S/P CABG x 3 Renew: Aspirin 81 MG Oral Tablet Delayed Release; TAKE 1 TABLET DAILY Renew: Atorvastatin Calcium 80 MG Oral Tablet; TAKE 1 TABLET BY MOUTH DAILY SocHx: Former smoker Tobacco Use Screening; Status:Complete; Done: [id number] Patient Instructions Please bring all medicines, vitamins, [...] Signs Patient: CELY FINCH; : 1940; Recorded: [id number] 11:46AMRecorded: [id number] 11:20AMRecorded: 39Ogq6404 11:15AM Dofywxrd827, LUE, Si (more content not included)... Normal [employer] Tobacco Screening.on 022 Adult depression screening assessment No [facility] [address] DO Work Phone: Fall risk assessment b) One or more fall s in the last year [facility] 250 DO Work Phone: Tobacco use status [facility] b) No [facility] [employer] [facility] 250 DO Work Phone: CBC AUTO DIFFon 02-10-2022 BASO # 0.1 103/ul Normal 0.0-0.1 [facility] Comment on above: Performed By: #### C MADM, BNP, CMP #### [facility] [address] [place] [address] Dr. Marco Greer Basophils/100 WBC (Bld) 1.1 % Normal 0.2-2.0 [facility] Comment on above: Performed By: #### C MADM, BNP, CMP #### [facility] [address] [place] [address] Dr. Marco Greer EO # 0.5 103/ul Normal 0.0-0.7 [facility] Comment on above: Performed By: #### C MADM, BNP, CMP #### [facility] [address] [place] [address] Dr. Marco Greer Eosinophils/100 WBC (Bld) 6.0 % Normal 0.9-7.0 [facility] Comment on above: Performed By: #### C MADM, BNP, CMP #### [facility] [address] [place] [address] Dr. Marco Greer Erythrocyte distribution width (RBC) [Ratio] 15.2 % Critically high 11.0-15.0 [facility] Comment on above: Performed By: #### C MADM, BNP, CMP #### [facility] [address] [place] [address] Dr. Marco Greer Hematocrit (Bld) [Volume fraction] 39.6 % Normal 36.0-48.0 [facility] Comment on above: Performed By: #### C MADM, BNP, CMP #### [facility] [address] [place] [address] Dr. Marco Greer Hemoglobin (Bld) [Mass/Vol] 12.4 g/dL Normal 12.0-16.0 [facility] Comment on above: Performed By: #### C MADM, BNP, CMP #### [facility] [address] [place] [address] Dr. Marco Greer IG # 0.02 10e3/ul Normal 0.00-0.03 [facility] Comment on above: Performed By: #### C MADM, BNP, CMP #### [facility] [address] [place] [address] Dr. Marco Greer IG % 0.3 % Normal 0.0-0.5 [facility] Comment on above: Performed By: #### C MADM, BNP, CMP #### [facility] [address] [place] [address] Dr. Marco Greer LYMPH # 1.2 103/ul Normal 1.2-3.8 [facility] Comment on above: Performed By: #### C MADM, BNP, CMP #### [facility] [address] [place] [address] Dr. Marco Greer Lymphocytes/100 WBC (Bld) 15.5 % Critically low 20.5-60.0 [facility] Comment on above: Performed By: #### C MADM, BNP, CMP #### [facility] [address] [place] [address] Dr. Marco Greer MANUAL DIFF REQ NO Normal [facility] Comment on above: Performed By: #### C MADM, BNP, CMP #### [facility] [address] [place] [address] Dr. Marco Greer MCH (RBC) [Entitic mass] 28.1 pg Normal 26.7-34.0 [facility] Comment on above: Performed By: #### C MADM, BNP, CMP #### [facility] [address] [place] [address] Dr. Marco Greer MCHC (RBC) [Mass/Vol] 31.3 g/dL Normal 29.9-35.2 [facility] Comment on above: Performed By: #### C MADM, BNP, CMP #### [facility] [address] [place] [address] Dr. Marco Greer MCV (RBC) [Entitic vol] 89.6 fL Normal 81.0-99.0 [facility] Comment on above: Performed By: #### C MADM, BNP, CMP #### [facility] [address] [place] [address] Dr. Marco Greer MONO # 0.7 103/ul Normal 0.3-0.8 [facility] Comment on above: Performed By: #### C MADM, BNP, CMP #### [facility] [address] [place] [address] Dr. Marco Greer Monocytes/100 WBC (Bld) 8.9 % Normal 1.7-12.0 [facility] Comment on above: Performed By: #### C MADM, BNP, CMP #### [facility] [address] [place] [address] Dr. Marco Greer NEUT # 5.4 103/ul Normal 1.4-6.5 [facility] Comment on above: Performed By: #### C MADM, BNP, CMP #### [facility] [address] [place] [address] Dr. Marco Greer Neutrophils/100 WBC (Bld) 68.2 % Normal 43.0-75.0 [facility] Comment on above: Performed By: #### C MADM, BNP, CMP #### [facility] [address] [place] [address] Dr. Marco Greer Platelet mean volume (Bld) [Entitic vol] 10.1 fL Normal 9.5-13.5 [facility] Comment on above: Performed By: #### C MADM, BNP, CMP #### [facility] [address] [place] [address] Dr. Marco Greer PLT 518 103/ul Critically high 150-450 [facility] Comment on above: Performed By: #### C MADM, BNP, CMP #### [facility] [address] [place] [address] Dr. Marco Greer RBC 4.42 106/ul Normal 4.20-5.40 [facility] Comment on above: Performed By: #### C MADM, BNP, CMP #### [facility] [address] [place] [address] Dr. Marco Greer WBC 7.9 103/ul Normal 4.0-11.0 [facility] Comment on above: Performed By: #### C MADM, BNP, CMP #### [facility] [address] [place] [address] Dr. Marco Greer CRPon 02-10-2022 CRP 1.6 mg/dL Critically high <=1.0 [facility] Comment on above: Performed By: #### C RP, LIVER, TSH, BMP, FT3 #### [facility] [address] [place] [address] Dr. Marco Greer FREE T3on 02-10-2022 FREE T3 1.99 pg/mlL Critically low 2.18-3.98 [facility] Comment on above: Performed By: #### C RP, LIVER, TSH, BMP, FT3 #### [facility] [address] [place] [address] Dr. Marco Greer FREE T4on 02-10-2022 Free T4 [Mass/Vol] 1.43 ng/dL Normal 0.76-1.46 [facility] Comment on above: Performed By: #### C MP #### [facility] [address] [place] [address] Dr. Marco Greer LIVER PROFILEon 02-10-2022 Albumin [Mass/Vol] 3.2 g/dL Critically low 3.4-5.[address] [facility] Comment on above: Performed By: #### C RP, LIVER, TSH, BMP, FT3 #### [facility] [address] [place] [address] Dr. Marco Greer Albumin/Globulin [Mass ratio] 0.7 {ratio} Normal [facility] Comment on above: Performed By: #### C RP, LIVER, TSH, BMP, FT3 #### [facility] [address] [place] [address] Dr. Marco Greer ALP [Catalytic activity/Vol] 109 U/L Normal 46-116 [facility] Comment on above: Performed By: #### C RP, LIVER, TSH, BMP, FT3 #### [facility] [address] [place] [address] Dr. Marco Greer ALT [Catalytic activity/Vol] 22 U/L Normal 14-59 [facility] Comment on above: Performed By: #### C RP, LIVER, TSH, BMP, FT3 #### [facility] [address] [place] [address] Dr. Marco Greer AST [Catalytic activity/Vol] 24 U/L Normal 15-37 [facility] Comment on above: Performed By: #### C RP, LIVER, TSH, BMP, FT3 #### [facility] [address] [place] [address] Dr. Marco Greer BILI, CONJUGATED 0.2 mg/dL Normal 0.0-0.2 [facility] Comment on above: Performed By: #### C RP, LIVER, TSH, BMP, FT3 #### [facility] [address] [place] [address] Dr. Marco Greer Bilirubin [Mass/Vol] 0.5 mg/dL Normal 0.2-1.0 [facility] Comment on above: Performed By: #### C RP, LIVER, TSH, BMP, FT3 #### [facility] Laboratory [address] [place] [address] Dr. Marco Greer Globulin (S) [Mass/Vol] 4.3 g/dL Normal [facility] Comment on above: Performed By: #### C RP, LIVER, TSH, BMP, FT3 #### [facility] Laboratory [address] [place] [address] Dr. Marco Greer Protein [Mass/Vol] 7.5 g/dL Normal 6.4-8.2 [facility] Comment on above: Performed By: #### C RP, LIVER, TSH, BMP, FT3 #### [facility] Laboratory [address] [place] [address] Dr. Marco Greer PROF CHEM 8 (BAS METB)on Anion gap [Moles/Vol] 13.8 mmol/L Normal Th e [facility] Comment on above: Performed By: #### C RP, LIVER, TSH, BMP, FT3 #### [facility] Laboratory [address] [place] [address] Dr. Marco Greer Calcium [Mass/Vol] 9.3 mg/dL Normal 8.5-10.1 [facility] Comment on above: Performed By: #### C RP, LIVER, TSH, BMP, FT3 #### [facility] Laboratory [address] [place] [address] Dr. Marco Greer Chloride [Moles/Vol] 97 mmol/L Critically low 98-107 [facility] Comment on above: Performed By: #### C RP, LIVER, TSH, BMP, FT3 #### [facility] Laboratory [address] [place] [address] Dr. Marco Greer CO2 [Moles/Vol] 25.4 mmol/L Normal 21.0-32.0 [facility] Comment on above: Performed By: #### C RP, LIVER, TSH, BMP, FT3 #### [facility] Laboratory [address] [place] [address] Dr. Marco Greer Creatinine [Mass/Vol] 0.77 mg/dL Normal 0.55-1.02 [facility] Comment on above: Performed By: #### C RP, LIVER, TSH, BMP, FT3 #### [facility] Laboratory [address] [place] [address] Dr. Marco Greer EGFR-AF CITIZEN [place] >60 Normal >=60 [facility] Comment on above: Performed By: #### C RP, LIVER, TSH, BMP, FT3 #### [facility] Laboratory [address] [place] [address] Dr. Marco Greer EGFR-NON AF CITIZEN OF [place] >60 Normal >=60 [facility] Comment on above: Performed By: #### C RP, LIVER, TSH, BMP, FT3 #### [facility] Laboratory [address] [place] [address] Dr. Marco Greer Glucose [Mass/Vol] 78 mg/dL Normal 74-106 [facility] Comment on above: Performed By: #### C RP, LIVER, TSH, BMP, FT3 #### [facility] Laboratory [address] [place] [address] Dr. Marco Greer Potassium [Moles/Vol] 3.2 mmol/L Critically low 3.5-5.1 [facility] Comment on above: Performed By: #### C RP, LIVER, TSH, BMP, FT3 #### [facility] Laboratory [address] [place] [address] Dr. Marco Greer Sodium [Moles/Vol] 133 mmol/L Critically low 136-[address] [facility] Comment on above: Performed By: #### C RP, LIVER, TSH, BMP, FT3 #### [facility] Laboratory [address] [place] [address] Dr. Maroc Greer Urea nitrogen [Mass/Vol] 13.0 mg/dL Normal 7.0-18.0 [facility] Comment on above: Performed By: #### C RP, LIVER, TSH, BMP, FT3 #### [facility] Laboratory [address] [place] [address] Dr. Marco Greer Urea nitrogen/Creatinine [Mass ratio] 16.9 mg/mg Normal [facility] Comment on above: Performed By: #### C RP, LIVER, TSH, BMP, FT3 #### [facility] Laboratory [address] [place] [address] Dr. Marco Greer [facility] SED RATE 83 mm/hr Critically high <=30 [facility] Comment on above: Performed By: #### C MADM, BNP, CMP #### [facility] Laboratory [address] [place] [address] Dr. Marco Greer TSHon 02-10-2022 TSH 4.983 uIU/mL Critically high 0.358-3.74 0 [facility] Comment on above: Performed By: #### C RP, LIVER, TSH, BMP, FT3 #### [facility] Laboratory [address] [place], [place] [address] Dr. Marco Greer Laboratory - Hematology and Cell countson 01-28-2022 Erythrocyte distribution width (RBC) [Ratio] 15.9 % above high threshold See Below [facility] [employer] DO Work Phone: Comment on above: Reference Range: 11. 5 - 14.5 Hematocrit (Bld) [Volume fraction] 29.8 % below low threshold See Below [facility] [employer] DO Work Phone: Comment on above: Reference Range: 36. 0 - 46.0 Hemoglobin (Bld) [Mass/Vol] 9.8 g/dL below low threshold See Below [facility] [employer] [facility] DO Work Phone: Comment on above: Reference Range: 12. 0 - 16.0 MCHC (RBC) [Mass/Vol] 32.9 g/dL See Below [facility] [employer] [facility] DO Work Phone: Comment on above: Reference Range: 32. 0 - 36.0 MCV (RBC) [Entitic vol] 92 fL 80 - 100 [place] [address] DO Work Phone: Platelets (Bld) [#/Vol] 435 10*3/uL 150 - 450 [facility] [employer] [facility] DO Work Phone: RBC (Bld) [#/Vol] 3.25 {x10E12/L} below low threshold See Below [facility] [employer] [facility]ori [facility] DO Work Phone: Comment on above: Reference Range: 4.0 0 - 5.20 WBC (Bld) [#/Vol] 9.2 10*3/uL 4.4 - 11.3 [facility] 250 DO Work Phone: Magnesium, Serumon Magnesium [Mass/Vol] 2.02 mg/dL See Below [facility] [employer] 250 DO Work Phone: Comment on above: Reference Range: 1.6 0 - 2.40 No Panel Informationon 01-28 0.0 {/100_WBC} 0.0-0.0 [facility] kori 250 DO Work Phone: Renal Function Panelon 01-28 Albumin BCP dye [Mass/Vol] 2.8 g/dL below low threshold 3.4 - 5.0 [facility] kori 250 DO Work Phone: Anion gap [Moles/Vol] 16 mmol/L 10 - 20 [place] [address] DO Work Phone: Calcium [Mass/Vol] 8.5 mg/dL below low threshold 8.6 - 10.6 [facility] 250 DO Work Phone: Chloride [Moles/Vol] 99 mmol/L 98 - 107 [facility] [address] [facility] [facility] 250 DO Work Phone: CO2 [Moles/Vol] 23 mmol/L 21 - 32 [place] [address] DO Work Phone: Creatinine [Mass/Vol] 0.71 mg/dL See Below [facility] 250 DO Work Phone: Comment on above: Reference Range: 0.5 0 - 1.05 Glucose [Mass/Vol] 71 mg/dL below low threshold 74 - 99 [facility] kori 250 DO Work Phone: Phosphate [Mass/Vol] 3.8 mg/dL 2.5 - 4.9 [facility] [facility] kori 250 DO Work Phone: Comment on above: The performance andra acteristics of phosphorus testing in heparinized plasma have been validated by the individual laboratory site where testing is performed. Testing on heparinized plasma is not approved by the FDA; however, such approval is not necessary. Potassium [Moles/Vol] 4.9 mmol/L 3.5 - 5.3 [facility] [employer] DO Work Phone: Sodium [Moles/Vol] 133 mmol/L below low threshold 136 - 145 [facility] [employer] DO Work Phone: Urea nitrogen [Mass/Vol] 48 mg/dL above high threshold 6 - 23 [facility] [employer] DO Work Phone: Renal Function Panel 86 {mL/min/1.73m2} >90 [facility] [employer] DO Work Phone: Comment on above: CALCULATIONS OF MOISES MATED GFR ARE PERFORMED USING THE 2020 CKD-EPI STUDY REFIT EQUATION WITHOUT THE RACE VARIABLE FOR THE IDMS-TRACEABLE CREATININE METHODS.https://jasn.asnjournals.org/content/early/A SN.6937139841 Coronavirus 2019 RNA by PCR, Screening Asymptomticon 01-27-2022 Coronavirus 2019 RNA by PCR, Screening Asymptomtic Not detected Normal See Below -[facility] [employer] DO Work Phone: Comment on above: SOURCE: [...] this test method. Fact sheet for providers: www.fda.gov/media/659438/downloadFact sheet for patients: www.fda.gov/media/312419/downloadThis test has received FDA Emergency Use Authorization (EUA) and has been verified by [facility] ([facility]). This test is only authorized for the duration of time that circumstances exist to justify the authorization of the emergency use of in vitro diagnostic tests for the detection of SARS-CoV-2 virus and/or diagnosis of COVID-19 infection under section 564(b)(1) of the Act, 21 U.S.C. 360bbb-3(b)(1), unless the authorization is terminated or revoked sooner. [facility] is certified under CLIA-88 as qualified to perform high complexity testing. Testing is performed in the [facility] laboratories located at [address] [place] [address]. Laboratory - Hematology and Cell countson 01-27-2022 Erythrocyte distribution width (RBC) [Ratio] 15.6 % above high threshold See Below [facility] [employer] 250 DO Work Phone: Comment on above: Reference Range: 11. 5 - 14.5 Hematocrit (Bld) [Volume fraction] 28.3 % below low threshold See Below [facility] kori 250 DO Work Phone: Comment on above: Reference Range: 36. 0 - 46.0 Hemoglobin (Bld) [Mass/Vol] 9.5 g/dL below low threshold See Below [facility] DO Work Phone: Comment on above: Reference Range: 12. 0 - 16.0 MCHC (RBC) [Mass/Vol] 33.6 g/dL See Below [place] [address] DO Work Phone: Comment on above: Reference Range: 32. 0 - 36.0 MCV (RBC) [Entitic vol] 90 fL 80 - 100 [facility] DO Work Phone: Platelets (Bld) [#/Vol] 462 10*3/uL above high threshold 150 - 450 [facility] 250 DO Work Phone: RBC (Bld) [#/Vol] 3.16 {x10E12/L} below low threshold See Below [facility] 250 DO Work Phone: Comment on above: Reference Range: 4.0 0 - 5.20 WBC (Bld) [#/Vol] 10.4 10*3/uL 4.4 - 11.3 -[facility] [address] kori 250 DO Work Phone: Magnesium, Serumon 2 Magnesium [Mass/Vol] 1.99 mg/dL See Below [facility] [employer] 250 DO Work Phone: Comment on above: Reference Range: 1.6 0 - 2.40 No Panel Informationon 01-27 0.0 {/100_WBC} 0.0-0.0 [facility] kori 250 DO Work Phone: Renal Function Panelon 01-27 Albumin BCP dye [Mass/Vol] 2.7 g/dL below low threshold 3.4 - 5.0 [facility] kori 250 DO Work Phone: Anion gap [Moles/Vol] 12 mmol/L 10 - 20 [place] [address] DO Work Phone: Calcium [Mass/Vol] 8.3 mg/dL below low threshold 8.6 - 10.6 [facility] 250 DO Work Phone: Chloride [Moles/Vol] 95 mmol/L below low threshold 98 - 107 [facility] 250 DO Work Phone: CO2 [Moles/Vol] 26 mmol/L 21 - 32 [place] [address] DO Work Phone: Creatinine [Mass/Vol] 0.73 mg/dL See Below [place] [address] DO Work Phone: Comment on above: Reference Range: 0.5 0 - 1.05 Glucose [Mass/Vol] 77 mg/dL 74 - [address] [facility] kori 250 DO Work Phone: Phosphate [Mass/Vol] 4.2 mg/dL 2.5 - 4.9 [facility] [address] [facility] kori 250 DO Work Phone: Comment on above: The performance andra acteristics of phosphorus testing in heparinized plasma have been validated by the individual laboratory site where testing is performed. Testing on heparinized plasma is not approved by the FDA; however, such approval is not necessary. Potassium [Moles/Vol] 4.9 mmol/L 3.5 - 5.3 [facility] [employer] DO Work Phone: Sodium [Moles/Vol] 128 mmol/L below low threshold 136 - 145 [facility] DO Work Phone: Urea nitrogen [Mass/Vol] 48 mg/dL above high threshold 6 - 23 [facility] [employer] DO Work Phone: Renal Function Panel 83 {mL/min/1.73m2} >90 [facility] [employer] DO Work Phone: Comment on above: CALCULATIONS OF MOISES MATED GFR ARE PERFORMED USING THE 2020 CKD-EPI STUDY REFIT EQUATION WITHOUT THE RACE VARIABLE FOR THE IDMS-TRACEABLE CREATININE METHODS.https://jasn.asnjournals.org/content//A .[email or web address] Laboratory - Hematology and Cell countson 01-26-2022 Erythrocyte distribution width (RBC) [Ratio] 15.5 % above high threshold See Below [facility] [employer] [facility] DO Work Phone: Comment on above: Reference Range: 11. 5 - 14.5 Hematocrit (Bld) [Volume fraction] 30.3 % below low threshold See Below [facility] [employer] DO Work Phone: Comment on above: Reference Range: 36. 0 - 46.0 Hemoglobin (Bld) [Mass/Vol] 10.0 g/dL below low threshold See Below [facility] [employer] DO Work Phone: Comment on above: Reference Range: 12. 0 - 16.0 MCHC (RBC) [Mass/Vol] 33.0 g/dL See Below [facility] [employer] DO Work Phone: Comment on above: Reference Range: 32. 0 - 36.0 MCV (RBC) [Entitic vol] 90 fL 80 - 100 [facility] [employer]u kori 250 DO Work Phone: Platelets (Bld) [#/Vol] 454 10*3/uL above high threshold 150 - 450 [facility] [employer] 250 DO Work Phone: RBC (Bld) [#/Vol] 3.36 {x10E12/L} below low threshold See Below [facility] [employer]ori 250 DO Work Phone: Comment on above: Reference Range: 4.0 0 - 5.20 WBC (Bld) [#/Vol] 12.6 10*3/uL above high threshold 4.4 - 11.3 [facility] [employer] kori 250 DO Work Phone: Magnesium, Serumon 2 Magnesium [Mass/Vol] 2.00 mg/dL See Below [facility] [employer] 250 DO Work Phone: Comment on above: Reference Range: 1.6 0 - 2.40 No Panel Informationon 01-26 0.0 {/100_WBC} 0.0-0.0 [facility] [employer] 250 DO Work Phone: Renal Function Panelon 01-26 Albumin BCP dye [Mass/Vol] 3.1 g/dL below low threshold 3.4 - 5.0 [facility] 250 DO Work Phone: Anion gap [Moles/Vol] 16 mmol/L 10 - [address] [facility] [address] [facility] kori 250 DO Work Phone: Calcium [Mass/Vol] 8.7 mg/dL 8.6 - 10.6 [facility] [employer]ori 250 DO Work Phone: Chloride [Moles/Vol] 92 mmol/L below low threshold 98 - 107 [facility] kori 250 DO Work Phone: CO2 [Moles/Vol] 24 mmol/L 21 - 32 [facility] kori 250 DO Work Phone: Creatinine [Mass/Vol] 0.82 mg/dL See Below [place] [address] DO Work Phone: Comment on above: Reference Range: 0.5 0 - 1.05 Glucose [Mass/Vol] 113 mg/dL above high threshold 74 - 99 [place] [address] DO Work Phone: Phosphate [Mass/Vol] 4.2 mg/dL 2.5 - 4.9 [facility] 250 DO Work Phone: Comment on above: The performance andra acteristics of phosphorus testing in heparinized plasma have been validated by the individual laboratory site where testing is performed. Testing on heparinized plasma is not approved by the FDA; however, such approval is not necessary. Potassium [Moles/Vol] 4.3 mmol/L 3.5 - 5.3 [place] [address] DO Work Phone: Sodium [Moles/Vol] 128 mmol/L below low threshold 136 - 145 [place] [address] DO Work Phone: Urea nitrogen [Mass/Vol] 46 mg/dL above high threshold 6 - 23 [place] [address] DO Work Phone: Renal Function Panel 72 {mL/min/1.73m2} >90 [place] [address] DO Work Phone: Comment on above: CALCULATIONS OF MOISES MATED GFR ARE PERFORMED USING THE 2020 CKD-EPI STUDY REFIT EQUATION WITHOUT THE RACE VARIABLE FOR THE IDMS-TRACEABLE CREATININE METHODS.https://jasn.asnjournals.org/content//A SN.[id number] Albumin BCP dye [Mass/Vol] 2.9 g/dL below low threshold 3.4 - 5.0 [place] [address] DO Work Phone: Anion gap [Moles/Vol] 14 mmol/L 10 - 20 [place] [address] DO Work Phone: Calcium [Mass/Vol] 8.4 mg/dL below low threshold 8.6 - 10.6 [place] [address] DO Work Phone: Chloride [Moles/Vol] 92 mmol/L below low threshold 98 - 107 [place] [address] DO Work Phone: CO2 [Moles/Vol] 25 mmol/L 21 - 32 [place] [address] DO Work Phone: Creatinine [Mass/Vol] 0.73 mg/dL See Below [place] [address] DO Work Phone: Comment on above: Reference Range: 0.5 0 - 1.05 Glucose [Mass/Vol] 79 mg/dL 74 - 99 [facility] 250 DO Work Phone: Phosphate [Mass/Vol] 4.4 mg/dL 2.5 - 4.9 [facility] 250 DO Work Phone: Comment on above: The performance andra acteristics of phosphorus testing in heparinized plasma have been validated by the individual laboratory site where testing is performed. Testing on heparinized plasma is not approved by the FDA; however, such approval is not necessary. Potassium [Moles/Vol] 5.2 mmol/L 3.5 - 5.3 [place] [address] DO Work Phone: Sodium [Moles/Vol] 126 mmol/L below low threshold 136 - 145 [place] [address] DO Work Phone: Urea nitrogen [Mass/Vol] 40 mg/dL above high threshold 6 - 23 [place] [address] DO Work Phone: Renal Function Panel 83 {mL/min/1.73m2} >90 [place] [address] DO Work Phone: Comment on above: CALCULATIONS OF MOISES MATED GFR ARE PERFORMED USING THE 2020 CKD-EPI STUDY REFIT EQUATION WITHOUT THE RACE VARIABLE FOR THE IDMS-TRACEABLE CREATININE METHODS.https://jasn.asnjournals.org/content//A .[id number] Laboratory - Hematology and Cell countson 01-25-2022 Erythrocyte distribution width (RBC) [Ratio] 15.2 % above high threshold See Below [facility] [employer] DO Work Phone: Comment on above: Reference Range: 11. 5 - 14.5 Hematocrit (Bld) [Volume fraction] 29.7 % below low threshold See Below [facility] [employer] DO Work Phone: Comment on above: Reference Range: 36. 0 - 46.0 Hemoglobin (Bld) [Mass/Vol] 9.9 g/dL below low threshold See Below [place] [address] DO Work Phone: Comment on above: Reference Range: 12. 0 - 16.0 MCHC (RBC) [Mass/Vol] 33.3 g/dL See Below [facility] DO Work Phone: Comment on above: Reference Range: 32. 0 - 36.0 MCV (RBC) [Entitic vol] 89 fL 80 - 100 [place] [address] DO Work Phone: Platelets (Bld) [#/Vol] 490 10*3/uL above high threshold 150 - 450 [place] [address] DO Work Phone: RBC (Bld) [#/Vol] 3.33 {x10E12/L} below low threshold See Below [facility] DO Work Phone: Comment on above: Reference Range: 4.0 0 - 5.20 WBC (Bld) [#/Vol] 15.4 10*3/uL above high threshold 4.4 - 11.3 [facility] DO Work Phone: Magnesium, Serumon 2 Magnesium [Mass/Vol] 1.89 mg/dL See Below [facility] DO Work Phone: Comment on above: Reference Range: 1.6 0 - 2.40 No Panel Informationon 01-25 0.0 {/100_WBC} 0.0-0.0 [facility] [employer] DO Work Phone: Renal Function Panelon 01-25 Albumin BCP dye [Mass/Vol] 3.1 g/dL below low threshold 3.4 - 5.0 [facility] [employer] DO Work Phone: Anion gap [Moles/Vol] 16 mmol/L 10 - 20 [place] [address] DO Work Phone: Calcium [Mass/Vol] 8.5 mg/dL below low threshold 8.6 - 10.6 [facility] DO Work Phone: Chloride [Moles/Vol] 91 mmol/L below low threshold 98 - 107 [facility] [employer] DO Work Phone: CO2 [Moles/Vol] 22 mmol/L 21 - 32 [place] [address] DO Work Phone: Creatinine [Mass/Vol] 0.72 mg/dL See Below [facility] [employer] DO Work Phone: Comment on above: Reference Range: 0.5 0 - 1.05 Glucose [Mass/Vol] 94 mg/dL 74 - 99 [facility] DO Work Phone: Phosphate [Mass/Vol] 4.5 mg/dL 2.5 - 4.9 [facility] [employer] DO Work Phone: Comment on above: The performance andra acteristics of phosphorus testing in heparinized plasma have been validated by the individual laboratory site where testing is performed. Testing on heparinized plasma is not approved by the FDA; however, such approval is not necessary. Potassium [Moles/Vol] 5.1 mmol/L 3.5 - 5.3 [facility] [employer] 250 DO Work Phone: Sodium [Moles/Vol] 124 mmol/L below low threshold 136 - 145 [facility] kori 250 DO Work Phone: Urea nitrogen [Mass/Vol] 40 mg/dL above high threshold 6 - 23 [place] [address] DO Work Phone: Renal Function Panel 84 {mL/min/1.73m2} >90 [facility] DO Work Phone: Comment on above: CALCULATIONS OF MOISES MATED GFR ARE PERFORMED USING THE 2020 CKD-EPI STUDY REFIT EQUATION WITHOUT THE RACE VARIABLE FOR THE IDMS-TRACEABLE CREATININE METHODS.https://jasn.asnjournals.org/content//A SN.[id number] Albumin BCP dye [Mass/Vol] 3.1 g/dL below low threshold 3.4 - 5.0 [facility] DO Work Phone: Anion gap [Moles/Vol] 15 mmol/L 10 - 20 [facility] [employer] DO Work Phone: Calcium [Mass/Vol] 8.6 mg/dL 8.6 - 10.6 [facility] [employer] 250 DO Work Phone: Chloride [Moles/Vol] 92 mmol/L below low threshold 98 - 107 [facility] kori 250 DO Work Phone: CO2 [Moles/Vol] 21 mmol/L 21 - 32 [facility] DO Work Phone: Creatinine [Mass/Vol] 0.74 mg/dL See Below [facility] DO Work Phone: Comment on above: Reference Range: 0.5 0 - 1.05 Glucose [Mass/Vol] 85 mg/dL 74 - 99 [facility] [employer] [facility] 250 DO Work Phone: Phosphate [Mass/Vol] 3.9 mg/dL 2.5 - 4.9 MP-N orth [facility] 250 DO Work Phone: Comment on above: The performance andra acteristics of phosphorus testing in heparinized plasma have been validated by the individual laboratory site where testing is performed. Testing on heparinized plasma is not approved by the FDA; however, such approval is not necessary. Potassium [Moles/Vol] 5.3 mmol/L 3.5 - 5.3 [place] [address] DO Work Phone: Sodium [Moles/Vol] 123 mmol/L below low threshold 136 - 145 [place] [address] DO Work Phone: Urea nitrogen [Mass/Vol] 17 mg/dL 6 - 23 [place] [address] DO Work Phone: Renal Function Panel 82 {mL/min/1.73m2} >90 [place] [address] DO Work Phone: Comment on above: CALCULATIONS OF MOISES MATED GFR ARE PERFORMED USING THE 2020 CKD-EPI STUDY REFIT EQUATION WITHOUT THE RACE VARIABLE FOR THE IDMS-TRACEABLE CREATININE METHODS.https://jasn.asnjournals.org/content//A .[id number] Cortisol, Unspecifiedon 01-13 Cortisol [Mass/Vol] 18.4 ug/dL 2.5 - 20.0 -No rth [place] [address] DO Work Phone: Laboratory - Chemistry and C hemistry - challengeon 01-24-2022 Creatinine (U) [Mass/Vol] 71.9 mg/dL See Below [place] [address] DO Work Phone: Comment on above: Reference Range: 20. 0 - 320.0 Osmolality (U) [Osmolality] 646 mosm/kg 200 - 1200 [place] [address] DO Work Phone: Potassium (U) [Moles/Vol] 48 mmol/L See Below [facility] DO Work Phone: Comment on above: Reference Range: Not Established Potassium/Creatinine (U) [Molar ratio] 67 {mmol/g_Creat} See Below [place] [address] DO Work Phone: Comment on above: Reference Range: Not Established Sodium (U) [Moles/Vol] 131 mmol/L See Below [place] [address] DO Work Phone: Comment on above: Reference Range: Not Established Sodium/Creatinine (U) [Ratio] 182 {mmol/g_Creat} See Below [place] [address] DO Work Phone: Comment on above: Reference Range: Not Established Urea nitrogen (U) [Mass/Vol] 671 mg/dL See Below [place] [address] DO Work Phone: Comment on above: Reference Range: Not Established Urea/Creatinine (U) [Molar ratio] 9.3 {g/g_Creat} See Below [facility] DO Work Phone: Comment on above: Reference Range: Not Established Laboratory - Hematology and Cell countson 01-24-2022 Erythrocyte distribution width (RBC) [Ratio] 15.2 % above high threshold See Below [place] [address] DO Work Phone: Comment on above: Reference Range: 11. 5 - 14.5 Hematocrit (Bld) [Volume fraction] 29.8 % below low threshold See Below [place] [address] DO Work Phone: Comment on above: Reference Range: 36. 0 - 46.0 Hemoglobin (Bld) [Mass/Vol] 10.0 g/dL below low threshold See Below [place] [address] DO Work Phone: Comment on above: Reference Range: 12. 0 - 16.0 MCHC (RBC) [Mass/Vol] 33.6 g/dL See Below [facility] Sai sheikh 250 DO Work Phone: Comment on above: Reference Range: 32. 0 - 36.0 MCV (RBC) [Entitic vol] 89 fL 80 - 100 [facility] Sai kori 250 DO Work Phone: Platelets (Bld) [#/Vol] 463 10*3/uL above high threshold 150 - 450 [facility] DO Work Phone: RBC (Bld) [#/Vol] 3.33 {x10E12/L} below low threshold See Below [facility] DO Work Phone: Comment on above: Reference Range: 4.0 0 - 5.20 WBC (Bld) [#/Vol] 12.6 10*3/uL above high threshold 4.4 - 11.3 [facility] 250 DO Work Phone: Magnesium, Serumon 2 Magnesium [Mass/Vol] 1.85 mg/dL See Below [facility] [employer] kori 250 DO Work Phone: Comment on above: Reference Range: 1.6 0 - 2.40 No Panel Informationon 01-24 210 {mmol/g_Creat} 38 - 318 [facility] Sai sheikh 250 DO Work Phone: 151 mmol/L See Below [facility] 250 DO Work Phone: Comment on above: Reference Range: Not Established 0.0 {/100_WBC} 0.0-0.0 [facility] 250 DO Work Phone: Osmolality, Serumon 01-25-20 22 Osmolality [Osmolality] 260 {mOsm/kg_H2O} below low threshold 280 - 300 [facility] Center[facility] kori 250 DO Work Phone: Radiologyon 01-24-2022 XR Chest Single view Normal [facility] DO Work Phone: Renal Function Panelon 01-24 Albumin BCP dye [Mass/Vol] 3.0 g/dL below low threshold 3.4 - 5.0 [place] [address] DO Work Phone: Anion gap [Moles/Vol] 13 mmol/L 10 - 20 [place] [address] DO Work Phone: Calcium [Mass/Vol] 8.2 mg/dL below low threshold 8.6 - 10.6 [place] [address] DO Work Phone: Chloride [Moles/Vol] 95 mmol/L below low threshold 98 - 107 [place] [address] DO Work Phone: CO2 [Moles/Vol] 20 mmol/L below low threshold 21 - 32 [place] [address] DO Work Phone: Creatinine [Mass/Vol] 0.73 mg/dL See Below [place] [address] DO Work Phone: Comment on above: Reference Range: 0.5 0 - 1.05 Glucose [Mass/Vol] 88 mg/dL 74 - 99 [facility] 250 DO Work Phone: Phosphate [Mass/Vol] 3.4 mg/dL 2.5 - 4.9 [facility] 250 DO Work Phone: Comment on above: The performance andra acteristics of phosphorus testing in heparinized plasma have been validated by the individual laboratory site where testing is performed. Testing on heparinized plasma is not approved by the FDA; however, such approval is not necessary. Potassium [Moles/Vol] 5.1 mmol/L 3.5 - 5.3 [place] [address] DO Work Phone: Sodium [Moles/Vol] 123 mmol/L below low threshold 136 - 145 [place] [address] DO Work Phone: Urea nitrogen [Mass/Vol] 17 mg/dL 6 - 23 [facility] [employer] DO Work Phone: Renal Function Panel 83 {mL/min/1.73m2} >90 [facility] kori [facility] DO Work Phone: Comment on above: CALCULATIONS OF MOISES MATED GFR ARE PERFORMED USING THE 2020 CKD-EPI STUDY REFIT EQUATION WITHOUT THE RACE VARIABLE FOR THE IDMS-TRACEABLE CREATININE METHODS.https://jasn.asnjournals.org/content/early/A .[email or web address] Laboratory - Hematology and Cell countson 01-23-2022 Erythrocyte distribution width (RBC) [Ratio] 15.5 % above high threshold See Below [facility] [employer] DO Work Phone: Comment on above: Reference Range: 11. 5 - 14.5 Hematocrit (Bld) [Volume fraction] 32.9 % below low threshold See Below [facility] [employer] [facility] DO Work Phone: Comment on above: Reference Range: 36. 0 - 46.0 Hemoglobin (Bld) [Mass/Vol] 10.6 g/dL below low threshold See Below [facility] [employer] DO Work Phone: Comment on above: Reference Range: 12. 0 - 16.0 MCHC (RBC) [Mass/Vol] 32.2 g/dL See Below [facility] kori [facility] DO Work Phone: Comment on above: Reference Range: 32. 0 - 36.0 MCV (RBC) [Entitic vol] 95 fL 80 - 100 [facility] kori [facility] DO Work Phone: Platelets (Bld) [#/Vol] 420 10*3/uL 150 - 450 [facility] DO Work Phone: RBC (Bld) [#/Vol] 3.47 {x10E12/L} below low threshold See Below [facility] [employer] kori 250 DO Work Phone: Comment on above: Reference Range: 4.0 0 - 5.20 WBC (Bld) [#/Vol] 11.9 10*3/uL above high threshold 4.4 - 11.3 [facility] 19payMacarena kori 250 DO Work Phone: Magnesium, Serumon 2 Magnesium [Mass/Vol] 1.95 mg/dL See Below [facility] 19[employer]Guerita kori 250 DO Work Phone: Comment on above: Reference Range: 1.6 0 - 2.40 No Panel Informationon 01-23 0.0 {/100_WBC} 0.0-0.0 [facility] [employer] DO Work Phone: Renal Function Panelon 01-23 Albumin BCP dye [Mass/Vol] 2.9 g/dL below low threshold 3.4 - 5.0 [facility] [employer] DO Work Phone: Anion gap [Moles/Vol] 14 mmol/L 10 - 20 [facility] DO Work Phone: Calcium [Mass/Vol] 8.5 mg/dL below low threshold 8.6 - 10.6 [facility] CenterQuestliGuerita [employer] DO Work Phone: Chloride [Moles/Vol] 96 mmol/L below low threshold 98 - 107 [facility] [employer] kori 250 DO Work Phone: CO2 [Moles/Vol] 20 mmol/L below low threshold 21 - 32 [facility] kori 250 DO Work Phone: Creatinine [Mass/Vol] 0.80 mg/dL See Below [facility] DO Work Phone: Comment on above: Reference Range: 0.5 0 - 1.05 Glucose [Mass/Vol] 78 mg/dL 74 - 99 [facility] 250 DO Work Phone: Phosphate [Mass/Vol] 4.2 mg/dL 2.5 - 4.9 -[facility] DO Work Phone: Comment on above: The performance andra acteristics of phosphorus testing in heparinized plasma have been validated by the individual laboratory site where testing is performed. Testing on heparinized plasma is not approved by the FDA; however, such approval is not necessary. Potassium [Moles/Vol] 5.4 mmol/L above high threshold 3.5 - 5.3 [facility] [employer] DO Work Phone: Sodium [Moles/Vol] 125 mmol/L below low threshold 136 - 145 [place] [address] DO Work Phone: Urea nitrogen [Mass/Vol] 15 mg/dL 6 - 23 [place] [address] DO Work Phone: Renal Function Panel 74 {mL/min/1.73m2} >90 [place] [address] DO Work Phone: Comment on above: CALCULATIONS OF MOISES MATED GFR ARE PERFORMED USING THE 2020 CKD-EPI STUDY REFIT EQUATION WITHOUT THE RACE VARIABLE FOR THE IDMS-TRACEABLE CREATININE METHODS.https://jasn.asnjournals.org/content//A SN.[email or web address] Coronavirus 2019 RNA by PCR, Screening Asymptomticon 01-22-2022 Coronavirus 2019 RNA by PCR, Screening Asymptomtic Not detected Normal See Below [facility] kori [facility] DO Work Phone: Comment on above: SOURCE: [...] this test method. Fact sheet for providers: www.fda.gov/media/940348/downloadFact sheet for patients: www.fda.gov/media/449879/downloadThis test has received FDA Emergency Use Authorization (EUA) and has been verified by [facility] ([facility]). This test is only authorized for the duration of time that circumstances exist to justify the authorization of the emergency use of in vitro diagnostic tests for the detection of SARS-CoV-2 virus and/or diagnosis of COVID-19 infection under section 564(b)(1) of the Act, 21 U.S.C. 360bbb-3(b)(1), unless the authorization is terminated or revoked sooner. [facility] is certified under CLIA-88 as qualified to perform high complexity testing. Testing is performed in the [facility] laboratories located at [address] [place] [address]. Laboratory - Hematology and Cell countson 01-22-2022 Erythrocyte distribution width (RBC) [Ratio] 15.2 % above high threshold See Below [facility] DO Work Phone: Comment on above: Reference Range: 11. 5 - 14.5 Hematocrit (Bld) [Volume fraction] 31.2 % below low threshold See Below [facility] [employer] DO Work Phone: Comment on above: Reference Range: 36. 0 - 46.0 Hemoglobin (Bld) [Mass/Vol] 10.0 g/dL below low threshold See Below [facility] DO Work Phone: Comment on above: Reference Range: 12. 0 - 16.0 MCHC (RBC) [Mass/Vol] 32.1 g/dL See Below [facility] [employer] DO Work Phone: Comment on above: Reference Range: 32. 0 - 36.0 MCV (RBC) [Entitic vol] 94 fL 80 - 100 [facility] [employer] DO Work Phone: Platelets (Bld) [#/Vol] 409 10*3/uL 150 - 450 [facility]Questli[facility] DO Work Phone: RBC (Bld) [#/Vol] 3.33 {x10E12/L} below low threshold See Below [facility] 250 DO Work Phone: Comment on above: Reference Range: 4.0 0 - 5.20 WBC (Bld) [#/Vol] 12.4 10*3/uL above high threshold 4.4 - 11.3 [facility] [employer] 250 DO Work Phone: Magnesium, Serumon 2 Magnesium [Mass/Vol] 1.94 mg/dL See Below [facility] 250 DO Work Phone: Comment on above: Reference Range: 1.6 0 - 2.40 No Panel Informationon 01-22 0.0 {/100_WBC} 0.0-0.0 [facility] [employer] 250 DO Work Phone: Renal Function Panelon 01-22 Albumin BCP dye [Mass/Vol] 3.1 g/dL below low threshold 3.4 - 5.0 [facility] [employer] 250 DO Work Phone: Anion gap [Moles/Vol] 13 mmol/L 10 - 20 [facility] [employer] kori 250 DO Work Phone: Calcium [Mass/Vol] 8.7 mg/dL 8.6 - 10.6 [facility] 250 DO Work Phone: Chloride [Moles/Vol] 97 mmol/L below low threshold 98 - 107 [facility] 250 DO Work Phone: CO2 [Moles/Vol] 19 mmol/L below low threshold 21 - 32 [facility] [employer] 250 DO Work Phone: Creatinine [Mass/Vol] 0.81 mg/dL See Below [facility] [employer] k[employer] 250 DO Work Phone: Comment on above: Reference Range: 0.5 0 - 1.05 Glucose [Mass/Vol] 90 mg/dL 74 - 99 [facility] kori 250 DO Work Phone: Phosphate [Mass/Vol] 4.3 mg/dL 2.5 - 4.9 [facility] [employer] kori 250 DO Work Phone: Comment on above: The performance andra acteristics of phosphorus testing in heparinized plasma have been validated by the individual laboratory site where testing is performed. Testing on heparinized plasma is not approved by the FDA; however, such approval is not necessary. Potassium [Moles/Vol] 5.3 mmol/L 3.5 - 5.3 [place] [address] DO Work Phone: Urea nitrogen [Mass/Vol] 15 mg/dL 6 - 23 [place] [address] DO Work Phone: Renal Function Panel 73 {mL/min/1.73m2} >90 [place] [address] DO Work Phone: Comment on above: CALCULATIONS OF MOISES MATED GFR ARE PERFORMED USING THE 2020 CKD-EPI STUDY REFIT EQUATION WITHOUT THE RACE VARIABLE FOR THE IDMS-TRACEABLE CREATININE METHODS.https://jasn.asnjournals.org/content//A SN.6307025514 Albumin BCP dye [Mass/Vol] 2.8 g/dL below low threshold 3.4 - 5.0 [place] [address] DO Work Phone: Anion gap [Moles/Vol] 14 mmol/L 10 - 20 [place] [address] DO Work Phone: Calcium [Mass/Vol] 7.9 mg/dL below low threshold 8.6 - 10.6 [place] [address] DO Work Phone: Chloride [Moles/Vol] 96 mmol/L below low threshold 98 - 107 [place] [address] DO Work Phone: CO2 [Moles/Vol] 20 mmol/L below low threshold 21 - 32 [facility] 250 DO Work Phone: Creatinine [Mass/Vol] 0.77 mg/dL See Below [place] [address] DO Work Phone: Comment on above: Reference Range: 0.5 0 - 1.05 Glucose [Mass/Vol] 79 mg/dL 74 - 99 [facility] kori 250 DO Work Phone: Phosphate [Mass/Vol] 3.9 mg/dL 2.5 - 4.9 [facility] [employer] kori 250 DO Work Phone: Comment on above: The performance andra acteristics of phosphorus testing in heparinized plasma have been validated by the individual laboratory site where testing is performed. Testing on heparinized plasma is not approved by the FDA; however, such approval is not necessary. Potassium [Moles/Vol] 5.8 mmol/L above high threshold 3.5 - 5.3 [place] [address] DO Work Phone: Sodium [Moles/Vol] 124 mmol/L below low threshold 136 - 145 [place] [address] DO Work Phone: Urea nitrogen [Mass/Vol] 11 mg/dL 6 - 23 [place] [address] DO Work Phone: Renal Function Panel 78 {mL/min/1.73m2} >90 [place] [address] DO Work Phone: Comment on above: CALCULATIONS OF MOISES MATED GFR ARE PERFORMED USING THE 2020 CKD-EPI STUDY REFIT EQUATION WITHOUT THE RACE VARIABLE FOR THE IDMS-TRACEABLE CREATININE METHODS.https://jasn.asnjournals.org/content//A SN.[email or web address] Laboratory - Hematology and Cell countson 01-21-2022 Erythrocyte distribution width (RBC) [Ratio] 14.8 % above high threshold See Below [place] [address] DO Work Phone: Comment on above: Reference Range: 11. 5 - 14.5 Hematocrit (Bld) [Volume fraction] 33.4 % below low threshold See Below [facility] [employer] DO Work Phone: Comment on above: Reference Range: 36. 0 - 46.0 Hemoglobin (Bld) [Mass/Vol] 10.8 g/dL below low threshold See Below [facility] [employer] kori 250 DO Work Phone: Comment on above: Reference Range: 12. 0 - 16.0 MCHC (RBC) [Mass/Vol] 32.3 g/dL See Below [facility] [employer] DO Work Phone: Comment on above: Reference Range: 32. 0 - 36.0 MCV (RBC) [Entitic vol] 91 fL 80 - 100 [facility] [employer] DO Work Phone: Platelets (Bld) [#/Vol] 393 10*3/uL 150 - 450 [facility] [employer] DO Work Phone: RBC (Bld) [#/Vol] 3.67 {x10E12/L} below low threshold See Below [facility] [employer] k[employer] [facility] DO Work Phone: Comment on above: Reference Range: 4.0 0 - 5.20 WBC (Bld) [#/Vol] 13.1 10*3/uL above high threshold 4.4 - 11.3 [facility] [employer] [facility] DO Work Phone: Magnesium, Serumon 2 Magnesium [Mass/Vol] 1.94 mg/dL See Below [facility] [employer] kori 250 DO Work Phone: Comment on above: Reference Range: 1.6 0 - 2.40 No Panel Informationon 01-21 0.0 {/100_WBC} 0.0-0.0 [facility] [employer] DO Work Phone: Renal Function Panelon 01-21 Albumin BCP dye [Mass/Vol] 3.1 g/dL below low threshold 3.4 - 5.0 [facility] kori [facility] DO Work Phone: Anion gap [Moles/Vol] 14 mmol/L 10 - 20 [place] [address] DO Work Phone: Calcium [Mass/Vol] 8.1 mg/dL below low threshold 8.6 - 10.6 [place] [address] DO Work Phone: Chloride [Moles/Vol] 93 mmol/L below low threshold 98 - 107 [place] [address] DO Work Phone: CO2 [Moles/Vol] 20 mmol/L below low threshold 21 - 32 [place] [address] DO Work Phone: Creatinine [Mass/Vol] 0.70 mg/dL See Below [place] [address] DO Work Phone: Comment on above: Reference Range: 0.5 0 - 1.05 Glucose [Mass/Vol] 117 mg/dL above high threshold 74 - 99 [place] [address] DO Work Phone: Phosphate [Mass/Vol] 2.9 mg/dL 2.5 - 4.9 [facility] DO Work Phone: Comment on above: The [...] Potassium [Moles/Vol] 5.1 mmol/L 3.5 - 5.3 [place] [address] DO Work Phone: Comment on above: MILD HEMOLYSIS DETEC ABENA. The result may be falsely elevated due tohemolysis or other interferents. Clinical correlation is recommended.Repeat testing may be considered. Sodium [Moles/Vol] 122 mmol/L below low threshold 136 - 145 [facility] DO Work Phone: Urea nitrogen [Mass/Vol] 8 mg/dL 6 - 23 [facility] kori [facility] DO Work Phone: Renal Function Panel 87 {mL/min/1.73m2} >90 [facility] kori [facility] DO Work Phone: Comment on above: CALCULATIONS OF MOISES MATED GFR ARE PERFORMED USING THE 2020 CKD-EPI STUDY REFIT EQUATION WITHOUT THE RACE VARIABLE FOR THE IDMS-TRACEABLE CREATININE METHODS.https://jasn.asnjournals.org/content//A SN.[email or web address] Laboratory - Hematology and Cell countson 01-20-2022 Erythrocyte distribution width (RBC) [Ratio] 14.2 % See Below [facility] [employer] [facility] DO Work Phone: Comment on above: Reference Range: 11. 5 - 14.5 Hematocrit (Bld) [Volume fraction] 30.7 % below low threshold See Below [facility] [employer] DO Work Phone: Comment on above: Reference Range: 36. 0 - 46.0 Hemoglobin (Bld) [Mass/Vol] 11.1 g/dL below low threshold See Below [facility] [employer] DO Work Phone: Comment on above: Reference Range: 12. 0 - 16.0 MCHC (RBC) [Mass/Vol] 36.2 g/dL above high threshold See Below [facility] [employer] k[employer] [facility] DO Work Phone: Comment on above: Reference Range: 32. 0 - 36.0 MCV (RBC) [Entitic vol] 84 fL 80 - 100 [facility] [employer] DO Work Phone: Platelets (Bld) [#/Vol] 382 10*3/uL 150 - 450 [facility] kori [facility] DO Work Phone: RBC (Bld) [#/Vol] 3.65 {x10E12/L} below low threshold See Below [facility] [employer] kori 250 DO Work Phone: Comment on above: Reference Range: 4.0 0 - 5.20 WBC (Bld) [#/Vol] 14.9 10*3/uL above high threshold 4.4 - 11.3 [facility] kori 250 DO Work Phone: Magnesium, Serumon Magnesium [Mass/Vol] 1.77 mg/dL See Below [facility] [facility] kori 250 DO Work Phone: Comment on above: Reference Range: 1.6 0 - 2.40 No Panel Informationon 01-20 0.0 {/100_WBC} 0.0-0.0 [facility] 250 DO Work Phone: Radiologyon 01-20-2022 XR Chest 2 Views Normal [place] [address] DO Work Phone: Renal Function Panelon 01-20 Albumin BCP dye [Mass/Vol] 3.1 g/dL below low threshold 3.4 - 5.0 [facility] 250 DO Work Phone: Anion gap [Moles/Vol] 12 mmol/L 10 - 20 [facility] 250 DO Work Phone: Calcium [Mass/Vol] 8.2 mg/dL below low threshold 8.6 - 10.6 [facility] 250 DO Work Phone: Chloride [Moles/Vol] 92 mmol/L below low threshold 98 - 107 [facility] 250 DO Work Phone: CO2 [Moles/Vol] 22 mmol/L 21 - 32 [facility] 250 DO Work Phone: Creatinine [Mass/Vol] 0.71 mg/dL See Below [facility] 250 DO Work Phone: Comment on above: Reference Range: 0.5 0 - 1.05 Glucose [Mass/Vol] 77 mg/dL 74 - 99 [facility] 250 DO Work Phone: Phosphate [Mass/Vol] 3.2 mg/dL 2.5 - 4.9 [facility] 250 DO Work Phone: Comment on above: The performance andra acteristics of phosphorus testing in heparinized plasma have been validated by the individual laboratory site where testing is performed. Testing on heparinized plasma is not approved by the FDA; however, such approval is not necessary. Potassium [Moles/Vol] 4.4 mmol/L 3.5 - 5.3 [place] [address] DO Work Phone: Sodium [Moles/Vol] 122 mmol/L below low threshold 136 - 145 [place] [address] DO Work Phone: Urea nitrogen [Mass/Vol] 9 mg/dL 6 - 23 [place] [address] DO Work Phone: Renal Function Panel 86 {mL/min/1.73m2} >90 [place] [address] DO Work Phone: Comment on above: CALCULATIONS OF MOISES MATED GFR ARE PERFORMED USING THE 2020 CKD-EPI STUDY REFIT EQUATION WITHOUT THE RACE VARIABLE FOR THE IDMS-TRACEABLE CREATININE METHODS.https://jasn.asnjournals.org/content//A SN.3938230657 Albumin BCP dye [Mass/Vol] 3.1 g/dL below low threshold 3.4 - 5.0 [place] [address] DO Work Phone: Anion gap [Moles/Vol] 16 mmol/L 10 - 20 [place] [address] DO Work Phone: Calcium [Mass/Vol] 8.1 mg/dL below low threshold 8.6 - 10.6 [facility] 250 DO Work Phone: Chloride [Moles/Vol] 91 mmol/L below low threshold 98 - 107 [facility] 250 DO Work Phone: CO2 [Moles/Vol] 19 mmol/L below low threshold 21 - 32 [place] [address] DO Work Phone: Creatinine [Mass/Vol] 0.64 mg/dL See Below [place] [address] DO Work Phone: Comment on above: Reference Range: 0.5 0 - 1.05 Glucose [Mass/Vol] 72 mg/dL below low threshold 74 - 99 [place] [address] DO Work Phone: Phosphate [Mass/Vol] 3.6 mg/dL 2.5 - 4.9 [facility] DO Work Phone: Comment on above: The performance andra acteristics of phosphorus testing in heparinized plasma have been validated by the individual laboratory site where testing is performed. Testing on heparinized plasma is not approved by the FDA; however, such approval is not necessary. Potassium [Moles/Vol] 4.9 mmol/L 3.5 - 5.3 [place] [address] DO Work Phone: Sodium [Moles/Vol] 121 mmol/L below low threshold 136 - 145 [place] [address] DO Work Phone: Urea nitrogen [Mass/Vol] 8 mg/dL 6 - 23 [place] [address] DO Work Phone: Renal Function Panel 89 {mL/min/1.73m2} >90 [place] [address] DO Work Phone: Comment on above: CALCULATIONS OF MOISES MATED GFR ARE PERFORMED USING THE 2020 CKD-EPI STUDY REFIT EQUATION WITHOUT THE RACE VARIABLE FOR THE IDMS-TRACEABLE CREATININE METHODS.https://jasn.asnjournals.org/content/early/A SN.8511275399 Amylase, Body Fluidon 2021 Amylase (Body fld) [Catalytic activity/Vol] 10 U/L [facility] [employer] kori 250 DO Work Phone: [phone] Comment on above: SOURCE: Pleural flui d (thoracentesis fld)REF VALUENOT ESTABLISHEDThe performance characteristics of this test have beenvalidated by the [facility] laboratory. This test has not been approved by the FDA; however, such approval is not necessary. Cell Count + Differential, B heather Fluidon 01-19-2022 WBC (Bld) [#/Vol] 0.614 10*3/uL MP-N [facility] kori 250 DO Work Phone: [phone] Cell Count + Differential, Body Fluid 100 1 [facility] kori 250 DO Work Phone: [phone] Cell Count + Differential, Body Fluid 1 % [facility] kori 250 DO Work Phone: Cell Count + Differential, Body Fluid 47 % [facility] kori 250 DO Work Phone: Cell Count + Differential, Body Fluid 16 % [facility] DO Work Phone: Cell Count + Differential, Body Fluid 36 % [facility] kori 250 DO Work Phone: [phone] Cell Count + Differential, Body Fluid [id number] /uL [facility] kori 250 DO Work Phone: Cell Count, Fluidon 01-20-20 22 WBC (Bld) [#/Vol] 0.605 10*3/uL [facility] 250 DO Work Phone: Cell Count, Fluid [id number] /uL [facility] DO Work Phone: Cell Count, Fluid Cloudy CLEAR [facility] DO Work Phone: [phone] Cell Count, Fluid Red YELLOW MP-Nort [place] [address] DO Work Phone: Comment on above: SOURCE: Pleural flui d (thoracentesis fld) Cult, AFB, Misc.+ smearon Mycobacterium sp identified Org specific cx Nom (Unsp spec) [place] [address] DO Work Phone: Cult, Body Fluid, + smearon 01-19-2022 Bacteria identified Cx Nom (Body fld) [place] [address] DO Work Phone: Cult, Fungus +smearon 2021 Fungus identified Cx Nom (Unsp spec) [place] [address] DO Work Phone: Cult, Urineon 01-19-2022 Bacteria identified Cx Nom (U) Abnormal [place] [address] DO Work Phone: Glucose, Fluidon 01-19-2022 Glucose (Body fld) [Mass/Vol] 134 mg/dL [place] [address] DO Work Phone: Comment on above: SOURCE: Pleural flui d (thoracentesis fld)REF VALUENOT ESTABLISHEDThe performance characteristics of this test have beenvalidated by the [facility] laboratory. This test has not been approved by the FDA; however, such approval is not necessary. Laboratory - Chemistry and C hemistry - challengeon 01-19-2022 Creatinine (U) [Mass/Vol] 49.0 mg/dL See Below [place] [address] DO Work Phone: Comment on above: Reference Range: 20. 0 - 320.0 Osmolality (U) [Osmolality] 250 mosm/kg 200 - 1200 [place] [address] DO Work Phone: Potassium (U) [Moles/Vol] 27 mmol/L See Below [place] [address] DO Work Phone: Comment on above: Reference Range: Not Established Potassium/Creatinine (U) [Molar ratio] 55 {mmol/g_Creat} See Below [facility] DO Work Phone: Comment on above: Reference Range: Not Established Sodium (U) [Moles/Vol] 41 mmol/L See Below [place] [address] DO Work Phone: Comment on above: Reference Range: Not Established Sodium/Creatinine (U) [Ratio] 84 {mmol/g_Creat} See Below [place] [address] DO Work Phone: Comment on above: Reference Range: Not Established Urea nitrogen (U) [Mass/Vol] 250 mg/dL See Below [place] [address] DO Work Phone: Comment on above: Reference Range: Not Established Urea/Creatinine (U) [Molar ratio] 5.1 {g/g_Creat} See Below [place] [address] DO Work Phone: Comment on above: Reference Range: Not Established Laboratory - Hematology and Cell countson 01-19-2022 Erythrocyte distribution width (RBC) [Ratio] 14.6 % above high threshold See Below [place] [address] DO Work Phone: Comment on above: Reference Range: 11. 5 - 14.5 Hematocrit (Bld) [Volume fraction] 34.4 % below low threshold See Below [place] [address] DO Work Phone: Comment on above: Reference Range: 36. 0 - 46.0 Hemoglobin (Bld) [Mass/Vol] 11.6 g/dL below low threshold See Below [place] [address] DO Work Phone: Comment on above: Reference Range: 12. 0 - 16.0 MCHC (RBC) [Mass/Vol] 33.7 g/dL See Below [place] [address] DO Work Phone: Comment on above: Reference Range: 32. 0 - 36.0 MCV (RBC) [Entitic vol] 89 fL 80 - 100 [facility] 250 DO Work Phone: Platelets (Bld) [#/Vol] 392 10*3/uL 150 - 450 [facility] 250 DO Work Phone: [phone] RBC (Bld) [#/Vol] 3.85 {x10E12/L} below low threshold See Below [place] [address] DO Work Phone: Comment on above: Reference Range: 4.0 0 - 5.20 WBC (Bld) [#/Vol] 19.0 10*3/uL above high threshold 4.4 - 11.3 [place] [address] DO Work Phone: Magnesium, Serumon 2 Magnesium [Mass/Vol] 1.74 mg/dL See Below [facility] 250 DO Work Phone: Comment on above: Reference Range: 1.6 0 - 2.40 No Panel Informationon 01-19 84 {mmol/g_Creat} 38 - 318 [facility] 250 DO Work Phone: 41 mmol/L See Below [place] [address] DO Work Phone: Comment on above: Reference Range: Not Established Normal [place] [address] DO Work Phone: 230 U/L [place] [address] DO Work Phone: Comment on above: SOURCE: Pleural flui d (thoracentesis fld)REF VALUENOT ESTABLISHEDThe performance characteristics of this test have beenvalidated by the [facility] laboratory. This test has not been approved by the FDA; however, such approval is not necessary. 0.0 {/100_WBC} 0.0-0.0 [facility] Jhonny DO Work Phone: Osmolality, Serumon 01-20-20 22 Osmolality [Osmolality] 252 {mOsm/kg_H2O} below low threshold 280 - 300 [facility] DO Work Phone: Radiologyon 01-19-2022 XR Chest Single view Normal [facility] [employer] kori 250 DO Work Phone: Renal Function Panelon 01-19 Albumin BCP dye [Mass/Vol] 3.3 g/dL below low threshold 3.4 - 5.0 [place] [address] DO Work Phone: Anion gap [Moles/Vol] 14 mmol/L 10 - 20 [place] [address] DO Work Phone: Calcium [Mass/Vol] 7.5 mg/dL below low threshold 8.6 - 10.6 [place] [address] DO Work Phone: Chloride [Moles/Vol] 88 mmol/L below low threshold 98 - 107 [place] [address] DO Work Phone: CO2 [Moles/Vol] 23 mmol/L 21 - 32 [place] [address] DO Work Phone: Creatinine [Mass/Vol] 0.58 mg/dL See Below [facility] 250 DO Work Phone: Comment on above: Reference Range: 0.5 0 - 1.05 Glucose [Mass/Vol] 82 mg/dL 74 - 99 [facility] kori 250 DO Work Phone: Phosphate [Mass/Vol] 3.0 mg/dL 2.5 - 4.9 [facility] DO Work Phone: Comment on above: The performance andra acteristics of phosphorus testing in heparinized plasma have been validated by the individual laboratory site where testing is performed. Testing on heparinized plasma is not approved by the FDA; however, such approval is not necessary. Potassium [Moles/Vol] 4.4 mmol/L 3.5 - 5.3 [facility] kori [facility] DO Work Phone: Sodium [Moles/Vol] 121 mmol/L below low threshold 136 - 145 [place] [address] DO Work Phone: Urea nitrogen [Mass/Vol] 8 mg/dL 6 - 23 [place] [address] DO Work Phone: Renal Function Panel >90 >90 [place] [address] DO Work Phone: Comment on above: CALCULATIONS OF MOISES MATED GFR ARE PERFORMED USING THE 2020 CKD-EPI STUDY REFIT EQUATION WITHOUT THE RACE VARIABLE FOR THE IDMS-TRACEABLE CREATININE METHODS.https://jasn.asnjournals.org/content///A SN.[email or web address] Albumin BCP dye [Mass/Vol] 3.1 g/dL below low threshold 3.4 - 5.0 [place] [address] DO Work Phone: Anion gap [Moles/Vol] 16 mmol/L 10 - 20 [place] [address] DO Work Phone: Calcium [Mass/Vol] 7.9 mg/dL below low threshold 8.6 - 10.6 [place] [address] DO Work Phone: Chloride [Moles/Vol] 91 mmol/L below low threshold 98 - 107 [place] [address] DO Work Phone: CO2 [Moles/Vol] 19 mmol/L below low threshold 21 - 32 [place] [address] DO Work Phone: Creatinine [Mass/Vol] 0.58 mg/dL See Below [place] [address] DO Work Phone: Comment on above: Reference Range: 0.5 0 - 1.05 Glucose [Mass/Vol] 125 mg/dL above high threshold 74 - 99 [facility] 250 DO Work Phone: Phosphate [Mass/Vol] 3.0 mg/dL 2.5 - 4.9 [facility] [employer] DO Work Phone: Comment on above: The performance andra acteristics of phosphorus testing in heparinized plasma have been validated by the individual laboratory site where testing is performed. Testing on heparinized plasma is not approved by the FDA; however, such approval is not necessary. Potassium [Moles/Vol] 4.6 mmol/L 3.5 - 5.3 [facility] kori [facility] DO Work Phone: Sodium [Moles/Vol] 121 mmol/L below low threshold 136 - 145 [place] [address] DO Work Phone: Urea nitrogen [Mass/Vol] 9 mg/dL 6 - 23 [place] [address] DO Work Phone: Renal Function Panel >90 >90 [place] [address] DO Work Phone: Comment on above: CALCULATIONS OF MOISES MATED GFR ARE PERFORMED USING THE 2020 CKD-EPI STUDY REFIT EQUATION WITHOUT THE RACE VARIABLE FOR THE IDMS-TRACEABLE CREATININE METHODS.https://jasn.asnjournals.org/content//A SN.4078024442 Total Protein, Body Fluidon 01-19-2022 Protein (Body fld) [Mass/Vol] 2.7 g/dL [place] [address] DO Work Phone: Comment on above: SOURCE: Pleural flui d (thoracentesis fld)REF VALUENOT ESTABLISHEDThe performance characteristics of this test have beenvalidated by the [facility] laboratory. This test has not been approved by the FDA; however, such approval is not necessary. URINALYSIS WITH CULTURE IF I NDICATEDon 01-19-2022 Protein (U) [Mass/Vol] 100 (2+) Abnormal NEGATIVE [facility] DO Work Phone: Specific gravity (U) [Rel density] 1.011 1 See Below [facility] kori [facility] DO Work Phone: Comment on above: Reference Range: 1.0 05 - 1.035 Uric Acid, Serumon Urate [Mass/Vol] 4.2 mg/dL 2.3 - 6.7 [facility] DO Work Phone: Comment on above: Venipuncture immedia tely after or during the administration of Metamizole may lead to falsely low results. Testing should be performed immediately prior to Metamizole dosing. Urinalysison 01-19-2022 Color (U) YELLOW See Below [facility] DO Work Phone: Comment on above: Reference Range: STR AW,YELLOW Glucose Ql (U) Negative NEGATIVE [facility] DO Work Phone: Ketones Ql (U) Negative NEGATIVE [facility] DO Work Phone: Leukocyte esterase Test strip Ql (U) LARGE (3+) Abnormal NEGATIVE [facility] DO Work Phone: pH (U) 7.0 [pH] 5.0 - 8.0 [facility] DO Work Phone: Protein (U) [Mass/Vol] 30 (1+) Abnormal NEGATIVE [facility] DO Work Phone: RBC (U) [#/Vol] LARGE (3+) Abnormal NEGATIVE [facility] 250 DO Work Phone: Specific gravity (U) [Rel density] 1.010 1 See Below [facility] DO Work Phone: Comment on above: Reference Range: 1.0 05 - 1.035 Urinalysis Negative NEGATIVE [facility] DO Work Phone: Urinalysis <2.0 0.0 - 1.9 [facility] DO Work Phone: Urinalysis HAZY CLEAR [facility] 250 DO Work Phone: Urinalysis, Microscopicon Urinalysis, Microscopic <1 [facility] 250 DO Work Phone: Urinalysis, Microscopic >182 Abnormal 0-5 [place] [address] DO Work Phone: Urinalysis, Microscopic RARE [facility] 250 DO Work Phone: Urinalysis, Microscopic 1+ [facility] 250 DO Work Phone: Urinalysis, Microscopic 396 {/HPF} Abnormal 0-5 [facility] 250 DO Work Phone: Urinalysis, Microscopic 658 {/HPF} Abnormal 0-5 [place] [address] DO Work Phone: Laboratory - Hematology and Cell countson 01-18-2022 Erythrocyte distribution width (RBC) [Ratio] 14.5 % See Below [place] [address] DO Work Phone: Comment on above: Reference Range: 11. 5 - 14.5 Hematocrit (Bld) [Volume fraction] 35.0 % below low threshold See Below [place] [address] DO Work Phone: Comment on above: Reference Range: 36. 0 - 46.0 Hemoglobin (Bld) [Mass/Vol] 11.7 g/dL below low threshold See Below [place] [address] DO Work Phone: Comment on above: Reference Range: 12. 0 - 16.0 MCHC (RBC) [Mass/Vol] 33.4 g/dL See Below [place] [address] DO Work Phone: Comment on above: Reference Range: 32. 0 - 36.0 MCV (RBC) [Entitic vol] 90 fL 80 - 100 [facility] 250 DO Work Phone: Platelets (Bld) [#/Vol] 390 10*3/uL 150 - 450 [facility] kori 250 DO Work Phone: RBC (Bld) [#/Vol] 3.90 {x10E12/L} below low threshold See Below [facility] 250 DO Work Phone: Comment on above: Reference Range: 4.0 0 - 5.20 WBC (Bld) [#/Vol] 14.4 10*3/uL above high threshold 4.4 - 11.3 [facility] kori 250 DO Work Phone: Magnesium, Serumon 2 Magnesium [Mass/Vol] 1.82 mg/dL See Below [facility] DO Work Phone: Comment on above: Reference Range: 1.6 0 - 2.40 No Panel Informationon 01-18 0.0 {/100_WBC} 0.0-0.0 [facility] 250 DO Work Phone: Radiologyon 01-18-2022 XR Chest Single view Normal [facility] DO Work Phone: Renal Function Panelon 01-18 Albumin BCP dye [Mass/Vol] 3.3 g/dL below low threshold 3.4 - 5.0 [facility] 250 DO Work Phone: Anion gap [Moles/Vol] 14 mmol/L 10 - 20 [facility] 250 DO Work Phone: Calcium [Mass/Vol] 8.2 mg/dL below low threshold 8.6 - 10.6 [facility] 250 DO Work Phone: Chloride [Moles/Vol] 91 mmol/L below low threshold 98 - 107 [facility] 250 DO Work Phone: CO2 [Moles/Vol] 23 mmol/L 21 - 32 [place] [address] DO Work Phone: Creatinine [Mass/Vol] 0.73 mg/dL See Below [place] [address] DO Work Phone: Comment on above: Reference Range: 0.5 0 - 1.05 Glucose [Mass/Vol] 90 mg/dL 74 - 99 [facility] 250 DO Work Phone: Phosphate [Mass/Vol] 3.3 mg/dL 2.5 - 4.9 [facility] DO Work Phone: Comment on above: The performance andra acteristics of phosphorus testing in heparinized plasma have been validated by the individual laboratory site where testing is performed. Testing on heparinized plasma is not approved by the FDA; however, such approval is not necessary. Potassium [Moles/Vol] 4.1 mmol/L 3.5 - 5.3 [place] [address] DO Work Phone: Sodium [Moles/Vol] 124 mmol/L below low threshold 136 - 145 [place] [address] DO Work Phone: Urea nitrogen [Mass/Vol] 10 mg/dL 6 - 23 [place] [address] DO Work Phone: Renal Function Panel 83 {mL/min/1.73m2} >90 [place] [address] DO Work Phone: Comment on above: CALCULATIONS OF MOISES MATED GFR ARE PERFORMED USING THE 2020 CKD-EPI STUDY REFIT EQUATION WITHOUT THE RACE VARIABLE FOR THE IDMS-TRACEABLE CREATININE METHODS.https://jasn.asnjournals.org/content//A .[id number] Laboratory - Hematology and Cell countson 01-17-2022 Erythrocyte distribution width (RBC) [Ratio] 14.4 % See Below [place] [address] DO Work Phone: Comment on above: Reference Range: 11. 5 - 14.5 Hematocrit (Bld) [Volume fraction] 33.4 % below low threshold See Below [facility] [employer] DO Work Phone: Comment on above: Reference Range: 36. 0 - 46.0 Hemoglobin (Bld) [Mass/Vol] 11.2 g/dL below low threshold See Below [facility] [employer] DO Work Phone: Comment on above: Reference Range: 12. 0 - 16.0 MCHC (RBC) [Mass/Vol] 33.5 g/dL See Below [facility] [employer] DO Work Phone: Comment on above: Reference Range: 32. 0 - 36.0 MCV (RBC) [Entitic vol] 90 fL 80 - 100 [facility] [address] kori [facility] DO Work Phone: Platelets (Bld) [#/Vol] 325 10*3/uL 150 - 450 [facility] [employer] [facility] DO Work Phone: RBC (Bld) [#/Vol] 3.73 {x10E12/L} below low threshold See Below [facility] [employer] [facility] DO Work Phone: Comment on above: Reference Range: 4.0 0 - 5.20 WBC (Bld) [#/Vol] 13.2 10*3/uL above high threshold 4.4 - 11.3 [facility] [employer] DO Work Phone: Magnesium, Serumon 2 Magnesium [Mass/Vol] 1.83 mg/dL See Below [facility] [employer] DO Work Phone: Comment on above: Reference Range: 1.6 0 - 2.40 No Panel Informationon 01-17 0.0 {/100_WBC} 0.0-0.0 [facility] [employer] DO Work Phone: Renal Function Panelon 01-17 Albumin BCP dye [Mass/Vol] 2.8 g/dL below low threshold 3.4 - 5.0 [facility] kori 250 DO Work Phone: Anion gap [Moles/Vol] 14 mmol/L 10 - 20 [place] [address] DO Work Phone: Calcium [Mass/Vol] 8.1 mg/dL below low threshold 8.6 - 10.6 [place] [address] DO Work Phone: Chloride [Moles/Vol] 96 mmol/L below low threshold 98 - 107 [place] [address] DO Work Phone: CO2 [Moles/Vol] 21 mmol/L 21 - 32 [place] [address] DO Work Phone: Creatinine [Mass/Vol] 0.64 mg/dL See Below [place] [address] DO Work Phone: Comment on above: Reference Range: 0.5 0 - 1.05 Glucose [Mass/Vol] 79 mg/dL 74 - 99 [facility] 250 DO Work Phone: Phosphate [Mass/Vol] 3.5 mg/dL 2.5 - 4.9 [place] [address] DO Work Phone: Comment on above: The performance andra acteristics of phosphorus testing in heparinized plasma have been validated by the individual laboratory site where testing is performed. Testing on heparinized plasma is not approved by the FDA; however, such approval is not necessary. Potassium [Moles/Vol] 4.3 mmol/L 3.5 - 5.3 [facility] DO Work Phone: Sodium [Moles/Vol] 127 mmol/L below low threshold 136 - 145 [place] [address] DO Work Phone: Urea nitrogen [Mass/Vol] 11 mg/dL 6 - 23 [place] [address] DO Work Phone: Renal Function Panel 89 {mL/min/1.73m2} >90 [facility] DO Work Phone: Comment on above: CALCULATIONS OF MOISES MATED GFR ARE PERFORMED USING THE 2020 CKD-EPI STUDY REFIT EQUATION WITHOUT THE RACE VARIABLE FOR THE IDMS-TRACEABLE CREATININE METHODS.https://jasn.asnjournals.org/content//A .[email or web address] Laboratory - Hematology and Cell countson 01-16-2022 Erythrocyte distribution width (RBC) [Ratio] 14.6 % above high threshold See Below [facility] DO Work Phone: Comment on above: Reference Range: 11. 5 - 14.5 Hematocrit (Bld) [Volume fraction] 33.9 % below low threshold See Below [facility] DO Work Phone: Comment on above: Reference Range: 36. 0 - 46.0 Hemoglobin (Bld) [Mass/Vol] 11.7 g/dL below low threshold See Below [facility] DO Work Phone: Comment on above: Reference Range: 12. 0 - 16.0 MCHC (RBC) [Mass/Vol] 34.5 g/dL See Below [facility] DO Work Phone: Comment on above: Reference Range: 32. 0 - 36.0 MCV (RBC) [Entitic vol] 89 fL 80 - 100 [facility] DO Work Phone: Platelets (Bld) [#/Vol] 285 10*3/uL 150 - 450 [facility] DO Work Phone: RBC (Bld) [#/Vol] 3.80 {x10E12/L} below low threshold See Below [facility] DO Work Phone: Comment on above: Reference Range: 4.0 0 - 5.20 WBC (Bld) [#/Vol] 12.4 10*3/uL above high threshold 4.4 - 11.3 [facility] [employer] kori 250 DO Work Phone: Magnesium, Serumon 2 Magnesium [Mass/Vol] 1.85 mg/dL See Below [facility] [employer] kori 250 DO Work Phone: Comment on above: Reference Range: 1.6 0 - 2.40 No Panel Informationon 01-16 0.0 {/100_WBC} 0.0-0.0 [facility] [employer] kori 250 DO Work Phone: Renal Function Panelon 01-16 Albumin BCP dye [Mass/Vol] 2.9 g/dL below low threshold 3.4 - 5.0 [facility] [employer]Gu[employer]ita kori [facility] DO Work Phone: Anion gap [Moles/Vol] 14 mmol/L 10 - 20 [facility] 250 DO Work Phone: Calcium [Mass/Vol] 8.3 mg/dL below low threshold 8.6 - 10.6 [facility] [employer] kori 250 DO Work Phone: Chloride [Moles/Vol] 97 mmol/L below low threshold 98 - 107 [facility] [employer] DO Work Phone: CO2 [Moles/Vol] 23 mmol/L 21 - 32 [facility] 250 DO Work Phone: Creatinine [Mass/Vol] 0.53 mg/dL See Below [facility] [employer] kori 250 DO Work Phone: Comment on above: Reference Range: 0.5 0 - 1.05 Glucose [Mass/Vol] 81 mg/dL 74 - 99 [facility] 250 DO Work Phone: Phosphate [Mass/Vol] 2.8 mg/dL 2.5 - 4.9 [facility] 250 DO Work Phone: Comment on above: The performance andra acteristics of phosphorus testing in heparinized plasma have been validated by the individual laboratory site where testing is performed. Testing on heparinized plasma is not approved by the FDA; however, such approval is not necessary. Potassium [Moles/Vol] 4.8 mmol/L 3.5 - 5.3 [place] [address] DO Work Phone: Sodium [Moles/Vol] 129 mmol/L below low threshold 136 - 145 [place] [address] DO Work Phone: Urea nitrogen [Mass/Vol] 13 mg/dL 6 - 23 [place] [address] DO Work Phone: Renal Function Panel >90 >90 [place] [address] DO Work Phone: Comment on above: CALCULATIONS OF MOISES MATED GFR ARE PERFORMED USING THE 2020 CKD-EPI STUDY REFIT EQUATION WITHOUT THE RACE VARIABLE FOR THE IDMS-TRACEABLE CREATININE METHODS.https://jasn.asnjournals.org/content/early//A SN.7710982869 Laboratory - Chemistry and C hemistry - challengeon 01-15-2022 Glucose [Mass/Vol] 128 mg/dL above high threshold 74 - 99 [place] [address] DO Work Phone: Glucose [Mass/Vol] 141 mg/dL above high threshold 74 - 99 [facility] 250 DO Work Phone: Glucose [Mass/Vol] 75 mg/dL 74 - 99 [facility] 250 DO Work Phone: Glucose [Mass/Vol] 83 mg/dL 74 - 99 [facility] 250 DO Work Phone: Laboratory - Hematology and Cell countson 01-15-2022 Erythrocyte distribution width (RBC) [Ratio] 14.7 % above high threshold See Below [place] [address] DO Work Phone: Comment on above: Reference Range: 11. 5 - 14.5 Hematocrit (Bld) [Volume fraction] 31.5 % below low threshold See Below [facility] [employer] kori 250 DO Work Phone: Comment on above: Reference Range: 36. 0 - 46.0 Hemoglobin (Bld) [Mass/Vol] 10.6 g/dL below low threshold See Below [facility] kori 250 DO Work Phone: Comment on above: Reference Range: 12. 0 - 16.0 MCHC (RBC) [Mass/Vol] 33.7 g/dL See Below [place] [address] DO Work Phone: Comment on above: Reference Range: 32. 0 - 36.0 MCV (RBC) [Entitic vol] 89 fL 80 - 100 [place] [address] DO Work Phone: Platelets (Bld) [#/Vol] 234 10*3/uL 150 - 450 [facility] DO Work Phone: RBC (Bld) [#/Vol] 3.52 {x10E12/L} below low threshold See Below [facility] Jhonny DO Work Phone: Comment on above: Reference Range: 4.0 0 - 5.20 WBC (Bld) [#/Vol] 12.6 10*3/uL above high threshold 4.4 - 11.3 [facility] kori [facility] DO Work Phone: Magnesium, Serumon Magnesium [Mass/Vol] 1.96 mg/dL See Below [facility] kori 250 DO Work Phone: Comment on above: Reference Range: 1.6 0 - 2.40 No Panel Informationon 01-15 0.0 {/100_WBC} 0.0-0.0 [facility] kori [facility] DO Work Phone: Radiologyon 01-15-2022 XR Chest 2 Views Normal [place] [address] DO Work Phone: Renal Function Panelon 01-15 Albumin BCP dye [Mass/Vol] 2.9 g/dL below low threshold 3.4 - 5.0 [place] [address] DO Work Phone: Anion gap [Moles/Vol] 13 mmol/L 10 - 20 [place] [address] DO Work Phone: Calcium [Mass/Vol] 8.1 mg/dL below low threshold 8.6 - 10.6 [place] [address] DO Work Phone: Chloride [Moles/Vol] 100 mmol/L 98 - 107 [place] [address] DO Work Phone: CO2 [Moles/Vol] 22 mmol/L 21 - 32 [place] [address] DO Work Phone: Creatinine [Mass/Vol] 0.67 mg/dL See Below [place] [address] DO Work Phone: Comment on above: Reference Range: 0.5 0 - 1.05 Glucose [Mass/Vol] 74 mg/dL 74 - 99 [place] [address] DO Work Phone: Phosphate [Mass/Vol] 2.8 mg/dL 2.5 - 4.9 [place] [address] DO Work Phone: Comment on above: The performance andra acteristics of phosphorus testing in heparinized plasma have been validated by the individual laboratory site where testing is performed. Testing on heparinized plasma is not approved by the FDA; however, such approval is not necessary. Potassium [Moles/Vol] 4.1 mmol/L 3.5 - 5.3 [place] [address] DO Work Phone: Sodium [Moles/Vol] 131 mmol/L below low threshold 136 - 145 [place] [address] DO Work Phone: Urea nitrogen [Mass/Vol] 15 mg/dL 6 - 23 [facility] DO Work Phone: Renal Function Panel 88 {mL/min/1.73m2} >90 [facility] DO Work Phone: Comment on above: CALCULATIONS OF MOISES MATED GFR ARE PERFORMED USING THE 2020 CKD-EPI STUDY REFIT EQUATION WITHOUT THE RACE VARIABLE FOR THE IDMS-TRACEABLE CREATININE METHODS.https://jasn.asnjournals.org/content/early//A SN.3009563997 URINALYSIS WITH CULTURE IF I NDICATEDon 01-15-2022 Color (U) YELLOW See Below [facility] DO Work Phone: Comment on above: Reference Range: STR AW,YELLOW Glucose Ql (U) Negative NEGATIVE [facility] DO Work Phone: Ketones Ql (U) 5 (TRACE) Abnormal NEGATIVE [facility] DO Work Phone: Leukocyte esterase Test strip Ql (U) Negative NEGATIVE [facility] DO Work Phone: pH (U) 7.0 [pH] 5.0 - 8.0 [facility] DO Work Phone: Protein (U) [Mass/Vol] Negative NEGATIVE [facility] DO Work Phone: RBC (U) [#/Vol] SMALL (1+) Abnormal NEGATIVE [facility] DO Work Phone: Specific gravity (U) [Rel density] 1.011 1 See Below [employer] [place] [facility] DO Work Phone: Comment on above: Reference Range: 1.0 05 - 1.035 URINALYSIS WITH CULTURE IF INDICATED Negative NEGATIVE [facility] DO Work Phone: URINALYSIS WITH CULTURE IF INDICATED <2.0 0.0 - 1.9 [place] [address] DO Work Phone: URINALYSIS WITH CULTURE IF INDICATED CLEAR CLEAR [place] [address] DO Work Phone: Urinalysis, Microscopicon Urinalysis, Microscopic <1 0-5 [place] [address] DO Work Phone: Urinalysis, Microscopic 18 {/HPF} Abnormal 0-5 [place] [address] DO Work Phone: Calcium, Ionized Levelon Calcium, Ionized Level 1.12 mmol/L See Below M [place] [address] DO Work Phone: Comment on above: Reference Range: 1.1 0 - 1.33 The performance characteristics of ionized calcium tested in heparinized plasma or serum have been validated by the individual laboratory site where testing is performed. Testing on heparinized plasma or serum is not approved by the FDA; however, such approval is not necessary. Calcium, Ionized Level 1.13 mmol/L See Below M [place] [address] DO Work Phone: Comment on above: Reference [...] Glucose [Mass/Vol] 88 mg/dL 74 - 99 [facility] 250 DO Work Phone: Glucose [Mass/Vol] 105 mg/dL above high threshold 74 - 99 [place] [address] DO Work Phone: Glucose [Mass/Vol] 96 mg/dL 74 - 99 [facility] 250 DO Work Phone: Glucose [Mass/Vol] 83 mg/dL 74 - 99 [facility] [employer] 250 DO Work Phone: Glucose [Mass/Vol] 85 mg/dL 74 - 99 [facility] [employer]Guerita kori 250 DO Work Phone: Laboratory - Hematology and Cell countson 01-14-2022 Erythrocyte distribution width (RBC) [Ratio] 14.6 % above high threshold See Below [facility] [employer] DO Work Phone: Comment on above: Reference Range: 11. 5 - 14.5 Hematocrit (Bld) [Volume fraction] 28.8 % below low threshold See Below [facility] [employer] DO Work Phone: Comment on above: Reference Range: 36. 0 - 46.0 Hemoglobin (Bld) [Mass/Vol] 9.8 g/dL below low threshold See Below [facility] [employer] DO Work Phone: Comment on above: Reference Range: 12. 0 - 16.0 MCHC (RBC) [Mass/Vol] 34.0 g/dL See Below [facility] [employer] DO Work Phone: Comment on above: Reference Range: 32. 0 - 36.0 MCV (RBC) [Entitic vol] 88 fL 80 - 100 [facility] [employer] DO Work Phone: Platelets (Bld) [#/Vol] 209 10*3/uL 150 - 450 [facility] [employer] DO Work Phone: RBC (Bld) [#/Vol] 3.26 {x10E12/L} below low threshold See Below [facility] [employer] DO Work Phone: Comment on above: Reference Range: 4.0 0 - 5.20 WBC (Bld) [#/Vol] 13.8 10*3/uL above high threshold 4.4 - 11.3 [facility] [employer] DO Work Phone: Erythrocyte distribution width (RBC) [Ratio] 14.6 % above high threshold See Below [facility] 250 DO Work Phone: Comment on above: Reference Range: 11. 5 - 14.5 Hematocrit (Bld) [Volume fraction] 30.4 % below low threshold See Below [facility] [employer] 250 DO Work Phone: Comment on above: Reference Range: 36. 0 - 46.0 Hemoglobin (Bld) [Mass/Vol] 10.7 g/dL below low threshold See Below [facility] [employer] DO Work Phone: Comment on above: Reference Range: 12. 0 - 16.0 MCHC (RBC) [Mass/Vol] 35.2 g/dL See Below [facility] [employer] DO Work Phone: Comment on above: Reference Range: 32. 0 - 36.0 MCV (RBC) [Entitic vol] 86 fL 80 - 100 [facility] [employer] DO Work Phone: Platelets (Bld) [#/Vol] 203 10*3/uL 150 - 450 [facility] [employer] DO Work Phone: RBC (Bld) [#/Vol] 3.52 {x10E12/L} below low threshold See Below [facility] [employer] DO Work Phone: Comment on above: Reference Range: 4.0 0 - 5.20 WBC (Bld) [#/Vol] 14.7 10*3/uL above high threshold 4.4 - 11.3 [facility] [employer] DO Work Phone: Magnesium, Serumon 2 Magnesium [Mass/Vol] 1.89 mg/dL See Below [facility] [employer] DO Work Phone: Comment on above: Reference Range: 1.6 0 - 2.40 Magnesium [Mass/Vol] 1.97 mg/dL See Below [facility] Work Phone: Comment on above: Reference Range: 1.6 0 - 2.40 No Panel Informationon 01-14 0.0 {/100_WBC} 0.0-0.0 [facility] 250 DO Work Phone: 0.0 {/100_WBC} 0.0-0.0 [facility] [employer] 250 DO Work Phone: Radiologyon 01-14-2022 XR Chest Single view Normal [facility] [employer] 250 DO Work Phone: Renal Function Panelon 01-14 Albumin BCP dye [Mass/Vol] 3.0 g/dL below low threshold 3.4 - 5.0 [facility] [employer] DO Work Phone: Anion gap [Moles/Vol] 12 mmol/L 10 - 20 [facility] [employer] kori 250 DO Work Phone: Calcium [Mass/Vol] 8.0 mg/dL below low threshold 8.6 - 10.6 [facility] [employer] 250 DO Work Phone: Chloride [Moles/Vol] 97 mmol/L below low threshold 98 - 107 [facility] [employer] 250 DO Work Phone: CO2 [Moles/Vol] 22 mmol/L 21 - 32 [facility] [employer] 250 DO Work Phone: Creatinine [Mass/Vol] 0.77 mg/dL See Below [facility] [employer] 250 DO Work Phone: Comment on above: Reference Range: 0.5 0 - 1.05 Glucose [Mass/Vol] 135 mg/dL above high threshold 74 - 99 [facility] 250 DO Work Phone: Phosphate [Mass/Vol] 2.6 mg/dL 2.5 - 4.9 [facility] 250 DO Work Phone: Comment on above: The performance andra acteristics of phosphorus testing in heparinized plasma have been validated by the individual laboratory site where testing is performed. Testing on heparinized plasma is not approved by the FDA; however, such approval is not necessary. Potassium [Moles/Vol] 4.1 mmol/L 3.5 - 5.3 [place] [address] DO Work Phone: Sodium [Moles/Vol] 127 mmol/L below low threshold 136 - 145 [place] [address] DO Work Phone: Urea nitrogen [Mass/Vol] 16 mg/dL 6 - 23 [place] [address] DO Work Phone: Renal Function Panel 78 {mL/min/1.73m2} >90 [place] [address] DO Work Phone: Comment on above: CALCULATIONS OF MOISES MATED GFR ARE PERFORMED USING THE 2020 CKD-EPI STUDY REFIT EQUATION WITHOUT THE RACE VARIABLE FOR THE IDMS-TRACEABLE CREATININE METHODS.https://jasn.asnjournals.org/content/early/A SN.1030089319 Albumin BCP dye [Mass/Vol] 2.9 g/dL below low threshold 3.4 - 5.0 [place] [address] DO Work Phone: Anion gap [Moles/Vol] 13 mmol/L 10 - 20 [place] [address] DO Work Phone: Calcium [Mass/Vol] 7.8 mg/dL below low threshold 8.6 - 10.6 [place] [address] DO Work Phone: Chloride [Moles/Vol] 98 mmol/L 98 - 107 [facility] 250 DO Work Phone: CO2 [Moles/Vol] 22 mmol/L 21 - 32 [place] [address] DO Work Phone: Creatinine [Mass/Vol] 0.72 mg/dL See Below [place] [address] DO Work Phone: Comment on above: Reference Range: 0.5 0 - 1.05 Glucose [Mass/Vol] 99 mg/dL 74 - 99 [facility] 250 DO Work Phone: Phosphate [Mass/Vol] 2.7 mg/dL 2.5 - 4.9 [facility] 250 DO Work Phone: Comment on above: The performance andra acteristics of phosphorus testing in heparinized plasma have been validated by the individual laboratory site where testing is performed. Testing on heparinized plasma is not approved by the FDA; however, such approval is not necessary. Potassium [Moles/Vol] 4.1 mmol/L 3.5 - 5.3 [place] [address] DO Work Phone: Sodium [Moles/Vol] 129 mmol/L below low threshold 136 - 145 [place] [address] DO Work Phone: Urea nitrogen [Mass/Vol] 16 mg/dL 6 - 23 [place] [address] DO Work Phone: Renal Function Panel 85 {mL/min/1.73m2} >90 [place] [address] DO Work Phone: Comment on above: CALCULATIONS OF MOISES MATED GFR ARE PERFORMED USING THE 2020 CKD-EPI STUDY REFIT EQUATION WITHOUT THE RACE VARIABLE FOR THE IDMS-TRACEABLE CREATININE METHODS.https://jasn.asnjournals.org/content///A SN.8629317396 Albumin BCP dye [Mass/Vol] 3.0 g/dL below low threshold 3.4 - 5.0 [place] [address] DO Work Phone: Anion gap [Moles/Vol] 13 mmol/L 10 - 20 [place] [address] DO Work Phone: Calcium [Mass/Vol] 7.9 mg/dL below low threshold 8.6 - 10.6 [facility] Work Phone: Chloride [Moles/Vol] 97 mmol/L below low threshold 98 - 107 [place] [address] DO Work Phone: CO2 [Moles/Vol] 23 mmol/L 21 - 32 [place] [address] DO Work Phone: Creatinine [Mass/Vol] 0.81 mg/dL See Below [place] [address] DO Work Phone: Comment on above: Reference Range: 0.5 0 - 1.05 Glucose [Mass/Vol] 97 mg/dL 74 - 99 [facility] kori [facility] DO Work Phone: Phosphate [Mass/Vol] 3.1 mg/dL 2.5 - 4.9 [facility] 250 DO Work Phone: Comment on above: The performance andra acteristics of phosphorus testing in heparinized plasma have been validated by the individual laboratory site where testing is performed. Testing on heparinized plasma is not approved by the FDA; however, such approval is not necessary. Potassium [Moles/Vol] 4.7 mmol/L 3.5 - 5.3 [place] [address] DO Work Phone: Sodium [Moles/Vol] 128 mmol/L below low threshold 136 - 145 [place] [address] DO Work Phone: Urea nitrogen [Mass/Vol] 16 mg/dL 6 - 23 [place] [address] DO Work Phone: Renal Function Panel 73 {mL/min/1.73m2} >90 [place] [address] DO Work Phone: Comment on above: CALCULATIONS OF MOISES MATED GFR ARE PERFORMED USING THE 2020 CKD-EPI STUDY REFIT EQUATION WITHOUT THE RACE VARIABLE FOR THE IDMS-TRACEABLE CREATININE METHODS.https://jasn.asnjournals.org/content//A SN.3046471162 Activated partial thrombopla stin time (aPTT) in platelet poor plasma by coagulation aOrdered By: Vandana Torres on 01-06-2022 aPTT Coag (PPP) [Time] 61.7 s 25.1-36.5 [facility] Creatinine and Glomerular fi ltration rate.predicted panel (S/P/Bld)Ordered By: Vandana Torres on 01-06-2022 Creatinine [Mass/Vol] 0.78 mg/dL 0.44-1.03 [facility] Estimated glomerular filtrat ion rate (GFR) non- AmericanOrdered By: Vandana Torres on 01-06-2022 GFR/1.73 sq M.predicted among non-blacks MDRD (S/P/Bld) [Vol rate/Area] > 60 mL/Min [facility] No Panel Informationon 01-06 [email or web address] ?RetrieveTestByDateTime?Pa [id number]&Date=&Time=11%3a46%3a43% 3a00&TestType=ECG&Site=1&O utputType=PDF&Ext=PDF [facility] [employer] 250 DO Work Phone: Sinus rhythm with occasional Premature ventricular complexes [facility] [employer] 250 DO Work Phone: Abnormal [facility] kori 250 DO Work Phone: [phone] [facility] [facility] 250 DO Work Phone: [phone] [facility] 250 DO Work Phone: [phone] [facility] 250 DO Work Phone: [phone] [facility] 250 DO Work Phone: [phone] [facility] 250 DO Work Phone: [phone] [facility] 250 DO Work Phone: [phone] 1 [facility] 250 DO Work Phone: [phone] [facility] 250 DO Work Phone: [phone] [facility] 250 DO Work Phone: [phone] [facility] 250 DO Work Phone: [phone] [facility] 250 DO Work Phone: [phone] [facility] 250 DO Work Phone: [phone] [facility] 250 DO Work Phone: No Panel InformationOrdered By: Vandana Torres on 01-06-2022 Estimated GFR () > 60 mL/Min [facility] Comment on above: GFR estimated refere nce range: According to KDOQI guidelines, <60 ml/min/1.73m2 is sufficient to diagnose a patient with chronic kidney disease. Pharmacy Creatinine Clearance (Chem 49.24 [facility] Serum or plasma anion gap de terminationOrdered By: Vandana Torres on 01-06-2022 Anion gap [Moles/Vol] 11.8 mmol/L 6.0-15.0 [facility] Serum or plasma calcium rashmi urement (mass/volume)Ordered By: Vandana Torres on 01-06-2022 Calcium [Mass/Vol] 8.5 mg/dL 8.2-10.2 [facility] Serum or plasma chloride reece surement (moles/volume)Ordered By: Vandana Torres on 01-06-2022 Chloride [Moles/Vol] 103 mmol/L 95-114 [facility] Serum or plasma glucose rashmi urement (mass/volume)Ordered By: Vandana Torres on 01-06-2022 Glucose [Mass/Vol] 108 mg/dL 70-100 [facility] Comment on above: ADA recommended refe rence rangeRandom Glucose Reference Range is dependent on time and content of last meal. Glucose of more than 200 mg/dL in a nonstressed, ambulatory subject supports the diagnosis of Diabetes Mellitus. Serum or plasma potassium me asurement (moles/volume)Ordered By: Vandana Torres on 01-06-2022 Potassium [Moles/Vol] 4.1 mmol/L 3.5-5.1 [facility] Serum or plasma sodium measu rement (moles/volume)Ordered By: Vandana Torres on 01-06-2022 Sodium [Moles/Vol] 131 mmol/L 136-146 [facility] Serum or plasma total carbon dioxide measurement (moles/volume)Ordered By: Vandana Torres on 01-06-2022 CO2 [Moles/Vol] 20.3 mmol/L 22.0-30.0 [facility] Serum or plasma urea nitroge n measurement (mass/volume)Ordered By: Vandana Torres on 01-06-2022 Urea nitrogen [Mass/Vol] 11 mg/dL 12-05 [facility] Basophils Auto (Bld) [#/Vol] Ordered By: Gold Patrick on 01-05-2022 Basophils (Bld) [#/Vol] 0.1 10*3/uL 0.0-0.2 [facility] Basophils/100 WBC Auto (Bld) Ordered By: Gold Patrick on 01-05-2022 Basophils/100 WBC (Bld) 1.0 % . [facility] Eosinophils Auto (Bld) [#/Vo l]Ordered By: Gold Patrick on 01-05-2022 Eosinophils (Bld) [#/Vol] 0.2 10*3/uL 0.0-0.45 [facility] Eosinophils/100 WBC Auto (Bl d)Ordered By: Gold Patrick on 01-05-2022 Eosinophils/100 WBC (Bld) 2.9 % . [facility] Erythrocyte distribution wid th Auto (RBC) [Ratio]Ordered By: Gold Patrick on 01-05-2022 Erythrocyte distribution width (RBC) [Ratio] 14.6 % 11.9-15.3 [facility] Hematocrit Auto (Bld) [Volum e fraction]Ordered By: Gold Patrick on 01-05-2022 Hematocrit (Bld) [Volume fraction] 38.3 % 34.0-46.4 [facility] Hemoglobin [Mass/volume] in BloodOrdered By: Gold Patrick on 01-05-2022 Hemoglobin (Bld) [Mass/Vol] 12.8 g/dL 11.8-15.4 [facility] Laboratory - CoagulationOrde red By: Gold Patrick on 01-05-2022 PT Coag (PPP) [Time] 12.4 s 9.0-12.9 [facility] Laboratory - Hematology and Cell countsOrdered By: Gold Patrick on 01-05-2022 Nucleated RBC/100 WBC (Bld) [Ratio] 0.0 % 0-0.5 [facility] Leukocytes [#/volume] in Blo od by Automated countOrdered By: Gold Patrick on 01-05-2022 WBC (Bld) [#/Vol] 7.9 10*3/uL 4.5-11.0 [facility] Lymphocytes Auto (Bld) [#/Vo l]Ordered By: Gold Patrick on 01-05-2022 Lymphocytes (Bld) [#/Vol] 2.0 10*3/uL 1.00-4.8 [facility] Lymphocytes/100 WBC Auto (Bl d)Ordered By: Gold Patrick on 01-05-2022 Lymphocytes/100 WBC (Bld) 25.1 % . [facility] MCH Auto (RBC) [Entitic mass ]Ordered By: Gold Patrick on 01-05-2022 MCH (RBC) [Entitic mass] 28.8 pg 24.7-34.3 [facility] MCHC Auto (RBC) [Mass/Vol]Or dered By: Gold Patrick on 01-05-2022 MCHC (RBC) [Mass/Vol] 33.4 g/dL 32.0-35.0 [facility] MCV Auto (RBC) [Entitic vol] Ordered By: Gold Patrick on 01-05-2022 MCV (RBC) [Entitic vol] 86.4 fL 80-100 [facility] Monocytes Auto (Bld) [#/Vol] Ordered By: Gold Patrick on 01-05-2022 Monocytes (Bld) [#/Vol] 0.7 10*3/uL 0.0-0.8 [facility] Monocytes/100 WBC Auto (Bld) Ordered By: Gold Patrick on 01-05-2022 Monocytes/100 WBC (Bld) 9.2 % . [facility] Neutrophils Auto (Bld) [#/Vo l]Ordered By: Gold Patrick on 01-05-2022 Neutrophils (Bld) [#/Vol] 4.9 10*3/uL 1.8-7.7 [facility] Neutrophils/100 WBC Auto (Bl d)Ordered By: Gold Patrick on 01-05-2022 Neutrophils/100 WBC (Bld) 61.8 % . [facility] No Panel InformationOrdered By: Vandana Torres on 01-05-2022 Urine Osmolality 211 mosm 250-900 [facility] Platelet mean volume Auto (B ld) [Entitic vol]Ordered By: Gold Patrick on 01-05-2022 Platelet mean volume (Bld) [Entitic vol] 9.1 fL 6.3-10.7 [facility] Platelet poor plasma interna tional normalized ratio (INR) by coagulation assay (relatOrdered By: Gold Patrick on 01-05-2022 INR Coag (PPP) [Relative time] 1.1 {INR} [facility] Comment on above: INR Therapeutic Rang [...] (Bld) [#/Vol] 210 10*3/uL 150-450 [facility] RBC Auto (Bld) [#/Vol]Ordere d By: Gold Patrick on 01-05-2022 RBC (Bld) [#/Vol] 4.43 10*6/uL 3.60-5.00 [facility] Urine sodium measurement (mo les/volume)Ordered By: Vandana Torres on 01-05-2022 Sodium (U) [Moles/Vol] 30.0 mmol/L [facility] Comment on above: No reference range e stablished Cholesterol [Mass/volume] in Serum or PlasmaOrdered By: Jaya Bae on 01-03-2022 Cholesterol [Mass/Vol] 196 mg/dL 140-200 [facility] Comment on above: Chol less than 200 m g/dl low riskChol 201-239 mg/dl borderline riskChol 240 mg/dl and greater high risk Cholesterol in LDL Calc [Mas s/Vol]Ordered By: Jaya Bae on 01-03-2022 Cholesterol in LDL [Mass/Vol] 133 mg/dL 0-100 [facility] Comment on above: LDL ATP III CLASSIFI CATIONLDL less than 100 mg/dL OptimalLDL 100-129 mg/dL Near or above optimalLDL 130-159 mg/dL Borderline highLDL 160-189 mg/dL HighLDL greater than 189 mg/dL Very high Cholesterol in VLDL Calc [Ma ss/Vol]Ordered By: Jaya Bae on 01-03-2022 Cholesterol in VLDL [Mass/Vol] 14 mg/dL [facility] Laboratory - Chemistry and C hemistry - challengeOrdered By: Jaya Bae on 01-03-2022 Cobalamin (Vitamin B12) [Mass/Vol] 458 pg/mL 180-914 [facility] Magnesium [Mass/Vol] 2.0 mg/dL 1.6-2.6 [facility] No Panel InformationOrdered By: Jaya Bae on 01-03-2022 25-Hydroxy Vitamin D Total 42.8 ng/mL 30-100 [facility] Comment on above: VITAMIN D STATUS [...] HDL [Mass/Vol] 49 mg/dL 35-85 [facility] Comment on above: HDL CHOL ATP-III CLA SSIFICATION Cardiovascular RiskHDL > or equal to 60 mg/dL LOWHDL < 40 mg/dL HIGH Serum or plasma total choles terol/high density lipoprotein (HDL) cholesterol mass ratOrdered By: Jaya Bae on 01-03-2022 Cholesterol.total/Chol esterol in HDL [Mass ratio] 4.0 {ratio} <5.0 [facility] TSH DL <= 0.005 mIU/L QnOrde red By: Jaya Bae on 01-03-2022 TSH Qn 0.04 m[IU]/L 0.45-5.33 [facility] Triglyceride [Mass/volume] i n Serum or PlasmaOrdered By: Jaya Bae on 01-03-2022 Triglyceride [Mass/Vol] 70 mg/dL 35-149 [facility] Comment on above: TRIG ATP III [...] method [Mass/Vol] 7668 pg/mL 0-15 [facility] Comment on above: Results calledat 062 5 on 10/22/22 BNPon 01-02-2022 Natriuretic peptide B (Bld) [Mass/Vol] 971.0 pg/mL Normal <=1,800.0 [facility] Comment on above: Performed By: #### C MADM, BNP, CMP #### [facility] [address] [place] [address] Dr. Marco Greer Body fluid albumin measureme nt (mass/volume)Ordered By: Jaya Jeshiloh on 01-02-2022 Albumin (Body fld) [Mass/Vol] 3.1 g/dL 3.2-5.5 [facility] CARDIAC BALJIT ADMITon 022 CK [Catalytic activity/Vol] 103 U/L Normal 26-192 [facility] Comment on above: Performed By: #### C MADM, BNP, CMP #### [facility] [address] [place] [address] Dr. Marco Greer CK.MB [Mass/Vol] 12.75 ng/mL Critically high <=3.[address] [facility] Comment on above: Performed By: #### C MADM, BNP, CMP #### [facility] [address] [place] [address] [address] Marco Greer HSTROP 2985.3 pg/mL Critically high 4.0-51.3 [facility] Comment on above: Result Comment: CUT- OFF POINTS HAVE BEEN ESTABLISHED BASED ON THE FOURTH UNIVERSAL DEFINITIONS OF MYOCARDIAL INFARCTION. THE UPPER REFERENCE LIMIT (URL) OF TROPONIN, DEFINED THE 99TH PERCENTILE OF cTnI DISTRIBUTION IN A REFERENCE POPULATION, HAS BEEN CONFIRMED THE DECISION THRESHOLD FOR RI DIAGNOSIS. Performed By: #### C MADM, BNP, CMP #### [facility] [address] [place] [address] [address] Marco Greer MANINDER 282 ng/mL Critically high 9-82 [facility] Comment on above: Performed By: #### C MADM, BNP, CMP #### [facility] [address] [place] [address] Dr. Marco Greer CBC AUTO DIFFon 01-02-2022 BASO # 0.0 103/ul Normal 0.0-0.1 [facility] Comment on above: Performed By: #### C MP #### [facility] [address] [place] [address] Dr. Marco Greer Basophils/100 WBC (Bld) 0.4 % Normal 0.2-2.0 [facility] Comment on above: Performed By: #### C MP #### [facility] [address] [place] [address] Dr. Marco Greer EO # 0.1 103/ul Normal 0.0-0.7 [facility] Comment on above: Performed By: #### C MP #### [facility] [address] [place] [address] Dr. Marco Greer Eosinophils/100 WBC (Bld) 0.6 % Critically low 0.9-7.0 [facility] Comment on above: Performed By: #### C MP #### [facility] [address] [place] [address] Dr. Marco Greer Erythrocyte distribution width (RBC) [Ratio] 14.3 % Normal 11.0-15.0 [facility] Comment on above: Performed By: #### C MP #### [facility] [address] [place] [address] Dr. Marco Greer Hematocrit (Bld) [Volume fraction] 41.3 % Normal 36.0-48.0 [facility] [facility] Comment on above: Performed By: #### C MP #### [facility] [address] [place] [address] Dr. Marco Greer Hemoglobin (Bld) [Mass/Vol] 13.6 g/dL Normal 12.0-16.0 [facility] Comment on above: Performed By: #### C MP #### [facility] [address] [place] [address] Dr. Marco Greer IG # 0.04 10e3/ul Critically high 0.00-0.03 [facility] Comment on above: Performed By: #### C MP #### [facility] [address] [place] [address] Dr. Marco Greer IG % 0.4 % Normal 0.0-0.5 [facility] Comment on above: Performed By: #### C MP #### [facility] [address] [place] [address] Dr. Marco Greer LYMPH # 1.6 103/ul Normal 1.2-3.8 [facility] Comment on above: Performed By: #### C MP #### [facility] [address] [place] [address] Dr. Marco Greer Lymphocytes/100 WBC (Bld) 15.9 % Critically low 20.5-60.0 [facility] Comment on above: Performed By: #### C MP #### [facility] [address] [place] [address] Dr. Marco Greer MANUAL DIFF REQ NO Normal [facility] Comment on above: Performed By: #### C MP #### [facility] [address] [place] [address] Dr. Marco Greer MCH (RBC) [Entitic mass] 28.7 pg Normal 26.7-34.0 [facility] Comment on above: Performed By: #### C MP #### [facility] [address] [place] [address] Dr. Marco Greer MCHC (RBC) [Mass/Vol] 32.9 g/dL Normal 29.9-35.2 [facility] Comment on above: Performed By: #### C MP #### [facility] [address] [place] [address] Dr. Marco Greer MCV (RBC) [Entitic vol] 87.1 fL Normal 81.0-99.0 [facility] Comment on above: Performed By: #### C MP #### [facility] [address] [place] [address] Dr. Marco Greer MONO # 0.7 103/ul Normal 0.3-0.8 [facility] Comment on above: Performed By: #### C MP #### [facility] [address] [place] [address] Dr. Marco Greer Monocytes/100 WBC (Bld) 7.1 % Normal 1.7-12.0 [facility] Comment on above: Performed By: #### C MP #### [facility] [address] [address] [address] Marco Greer NEUT # 7.8 103/ul Critically high 1.4-6.5 [facility] Comment on above: Performed By: #### C MP #### [facility] [id number] Marco Greer Neutrophils/100 WBC (Bld) 75.6 % Critically high 43.0-75.0 [facility] Comment on above: Performed By: #### C MP #### [facility] [address] [address] [address] Marco Greer Platelet mean volume (Bld) [Entitic vol] 10.5 fL Normal 9.5-13.5 [facility] Comment on above: Performed By: #### C MP #### [facility] [address] [address] [address] Marco Greer PLT 233 103/ul Normal 150-450 [facility] Comment on above: Performed By: #### C MP #### [facility] [address] [address] [address] Marco Greer RBC 4.74 106/ul Normal 4.20-5.40 [facility] Comment on above: Performed By: #### C MP #### [facility] [address] [address] [address] Marco Greer WBC 10.3 103/ul Normal 4.0-11.0 [facility] Comment on above: Performed By: #### C MP #### [facility] [address] [place] [address] HEAD WO CONon [...] Normal [facility] SARS-CoV-2 (COVID-19) RNA NADER+probe Ql (Unsp spec) Not detected Normal NOT DETECTED The [facility] Comment on above: Result Comment: When diagnostic [...] for this test is supported by the Wildlife Ecologist of Health and Human Service's declaration that [...] CMP #### [facility] [address] [address] [address] Marco Greer Globulin Calc (S) [Mass/Vol] Ordered By: Jaya Bae on 01-02-2022 Globulin (S) [Mass/Vol] 3.9 g/dL [facility] PROF 14(COMP METB)on 022 Albumin [Mass/Vol] 3.0 g/dL Critically low 3.4-5.[address] [facility] Comment on above: Performed By: #### C MADM, BNP, CMP #### [facility] [address] [address] [address] Marco Greer Albumin/Globulin [Mass ratio] 0.7 {ratio} Normal [facility] Comment on above: Performed By: #### C MADM, BNP, CMP #### [facility] [address] [address] [address] Marco Greer ALP [Catalytic activity/Vol] 68 U/L Normal 46-116 [facility] Comment on above: Performed By: #### C MADM, BNP, CMP #### [facility] [address] [address] [address] Marco Greer ALT [Catalytic activity/Vol] 19 U/L Normal 14-59 [facility] Comment on above: Performed By: #### C MADM, BNP, CMP #### [facility] [address] [place] [address] Dr. Marco Greer Anion gap [Moles/Vol] 11.2 mmol/L Normal [facility] Comment on above: Performed By: #### C MADM, BNP, CMP #### [facility] [address] [address] [address] Marco Greer AST [Catalytic activity/Vol] 24 U/L Normal 15-37 [facility] Comment on above: Performed By: #### C MADM, BNP, CMP #### [facility] [address] [address] [address] Marco Greer Bilirubin [Mass/Vol] 0.4 mg/dL Normal 0.2-1.0 [facility] Comment on above: Performed By: #### C MADM, BNP, CMP #### [facility] [address] [address] [address] Marco Greer Calcium [Mass/Vol] 9.1 mg/dL Normal 8.5-10.1 [facility] Comment on above: Performed By: #### C MADM, BNP, CMP #### [facility] [address] [address] [address] Marco Greer Chloride [Moles/Vol] 101 mmol/L Normal 98-107 [facility] Comment on above: Performed By: #### C MADM, BNP, CMP #### [facility] [address] [address] [address] Marco Greer CO2 [Moles/Vol] 24.1 mmol/L Normal 21.0-32.0 [facility] Comment on above: Performed By: #### C MADM, BNP, CMP #### [facility] [address] [place] [address] Dr. Marco Greer Creatinine [Mass/Vol] 0.99 mg/dL Normal 0.55-1.02 [facility] Comment on above: Performed By: #### C MADM, BNP, CMP #### [facility] [address] [place] [address] Dr. Marco Greer EGFR-AF CITIZ[place] >60 Normal >=60 [facility] Comment on above: Performed By: #### C MADM, BNP, CMP #### [facility] [address] [place] [address] Dr. Marco Greer EGFR-NON AF CITIZEN [place] 54 mL/min/1.73m2 Critically low >=60 [facility] Comment on above: Performed By: #### C MADM, BNP, CMP #### [facility] [address] [place] [address] Dr. Marco Greer Globulin (S) [Mass/Vol] 4.5 g/dL Normal [facility] Comment on above: Performed By: #### C MADM, BNP, CMP #### [facility] [address] [place] [address] Dr. Marco Greer Glucose [Mass/Vol] 145 mg/dL Critically high 74-106 [facility] Comment on above: Performed By: #### C MADM, BNP, CMP #### [facility] [address] [place] [address] Dr. Marco Greer Potassium [Moles/Vol] 3.3 mmol/L Critically low 3.5-5.1 [facility] Comment on above: Performed By: #### C MADM, BNP, CMP #### [facility] [address] [place] [address] Dr. Marco Greer Protein [Mass/Vol] 7.5 g/dL Normal 6.4-8.2 [facility] Comment on above: Performed By: #### C MADM, BNP, CMP #### [facility] [address] [place] [address] Dr. Marco Greer Sodium [Moles/Vol] 133 mmol/L Critically low 136-145 Th e [facility] Comment on above: Performed By: #### C MADM, BNP, CMP #### [facility] [address] [place] [address] Dr. Marco Greer Urea nitrogen [Mass/Vol] 16.0 mg/dL Normal 7.0-18.0 [facility] Comment on above: Performed By: #### C MADM BNP, CMP #### [facility] [address] [place] [address] Dr. Marco Greer Urea nitrogen/Creatinine [Mass ratio] 16.2 mg/mg Normal [facility] Comment on above: Performed By: #### C MADM, BNP, CMP #### [facility] [address] [place] [address] Dr. Marco Greer PROTIMEon 01-02-2022 INR Coag (PPP) [Relative time] 1.02 {INR} Normal [facility] Comment on above: Performed By: #### C MADM, BNP, CMP #### [facility] [address] [place] [address] Dr. Marco Greer INR GUIDELINES SEE BELOW Normal [facility] Comment on above: Result Comment: YULIET RED INR: 2.0 - 3.0 CONDITIONS NOT LISTED BELOW 2.5 - 3.5 FOR PROSTHETIC HEART VALVE REPLACEMENT 2.5 - 3.5 RECURRENT THROMBOSIS Performed By: #### C MADM, BNP, CMP #### [facility] [address] [place] [address] Dr. Marco Greer PT Coag (PPP) [Time] 11.0 s Normal 9.0-11.6 [facility] Comment on above: Performed By: #### C MADM, BNP, CMP #### [facility] [address] [place] [address] Dr. Marco Greer PTTon 01-02-2022 aPTT Coag (Bld) [Time] 31.0 s Normal 22.3-36.2 Th e [facility] Comment on above: Performed By: #### C MADM, BNP, CMP #### [facility] [address] [place], [place] [address] Dr. Marco Greer Protein [Mass/volume] in Ser um or PlasmaOrdered By: Jaya Bae on 01-02-2022 Protein [Mass/Vol] 7.0 g/dL 6.1-7.9 [facility] Serum or plasma alanine kenny otransferase measurement without P-5'-P (enzymatic activiOrdered By: Jaya Bae on 01-02-2022 ALT No additional P-5'-P [Catalytic activity/Vol] 20 U/L 10-60 [facility] Serum or plasma albumin/glob ulin mass ratioOrdered By: Jaya Bae on 01-02-2022 Albumin/Globulin [Mass ratio] 0.8 {ratio} [facility] Serum or plasma alkaline lisy sphatase measurement (enzymatic activity/volume)Ordered By: Jaya Bae on 01-02-2022 ALP [Catalytic activity/Vol] 58 U/L 32-92 [facility] Serum or plasma aspartate am inotransferase measurement (enzymatic activity/volume)Ordered By: Jaya Bae on 01-02-2022 AST [Catalytic activity/Vol] 59 U/L 10-42 [facility] Serum or plasma total biliru bin measurement (mass/volume)Ordered By: Jaya Bae on 01-02-2022 Bilirubin [Mass/Vol] 0.6 mg/dL 0.3-1.2 [facility] XR CHEST 1 Von 01-02-2022 XR [...] by: BUD BROUSSARD Date: 2022-01-02 13:42 Normal [facility] Albumin [Mass/volume] in Ser um or PlasmaOrdered By: Brianda Harris on 11-26-2021 Albumin [Mass/Vol] 3.1 g/dL 3.2-5.5 [facility] Basophils Auto (Bld) [#/Vol] Ordered By: Brianda Harris on 11-26-2021 Basophils (Bld) [#/Vol] 0.1 10*3/uL 0.0-0.2 [facility] Basophils/100 WBC Auto (Bld) Ordered By: Brianda Harris on 11-26-2021 Basophils/100 WBC (Bld) 0.4 % . [facility] Creatinine and Glomerular fi ltration rate.predicted panel (S/P/Bld)Ordered By: Brianda Harris on 11-26-2021 Creatinine [Mass/Vol] 0.69 mg/dL 0.44-1.03 [facility] Eosinophils Auto (Bld) [#/Vo l]Ordered By: Brianda Harris on 11-26-2021 Eosinophils (Bld) [#/Vol] 0.0 10*3/uL 0.0-0.45 [facility] Eosinophils/100 WBC Auto (Bl d)Ordered By: Brianda Harris on 11-26-2021 Eosinophils/100 WBC (Bld) 0.1 % . [facility] Erythrocyte distribution wid th Auto (RBC) [Ratio]Ordered By: Brianda Harris on 11-26-2021 Erythrocyte distribution width (RBC) [Ratio] 14.1 % 11.9-15.3 [facility] Erythrocyte sedimentation ra te by Photometric methodOrdered By: Brianda Harris on 11-26-2021 ESR Photometric method (Bld) [Velocity] 78 mm/hr 0-29 [facility] Estimated glomerular filtrat ion rate (GFR) non- AmericanOrdered By: Brianda Harris on 11-26-2021 GFR/1.73 sq M.predicted among non-blacks MDRD (S/P/Bld) [Vol rate/Area] > 60 mL/Min [facility] Globulin Calc (S) [Mass/Vol] Ordered By: Brianda Harris on 11-26-2021 Globulin (S) [Mass/Vol] 4.1 g/dL [facility] Hematocrit Auto (Bld) [Volum e fraction]Ordered By: Brianda Harris on 11-26-2021 Hematocrit (Bld) [Volume fraction] 40.4 % 34.0-46.4 [facility] Hemoglobin [Mass/volume] in BloodOrdered By: Brianda Harris on 11-26-2021 Hemoglobin (Bld) [Mass/Vol] 13.2 g/dL 11.8-15.4 [facility] - Hematology and Cell countsOrdered By: Brianda Harris on 11-26-2021 Nucleated RBC/100 WBC (Bld) [Ratio] 0.1 % 0-0.5 [facility] Leukocytes [#/volume] in Blo od by Automated countOrdered By: Brianda Harris on 11-26-2021 WBC (Bld) [#/Vol] 15.8 10*3/uL 4.5-11.0 [facility] Lymphocytes Auto (Bld) [#/Vo l]Ordered By: Brianda Harris on 11-26-2021 Lymphocytes (Bld) [#/Vol] 1.2 10*3/uL 1.00-4.8 [facility] Lymphocytes/100 WBC Auto (Bl d)Ordered By: Brianda Harris on 11-26-2021 Lymphocytes/100 WBC (Bld) 7.8 % . [facility] MCH Auto (RBC) [Entitic mass ]Ordered By: Brianda Harris on 11-26-2021 MCH (RBC) [Entitic mass] 28.2 pg 24.7-34.3 [facility] MCHC Auto (RBC) [Mass/Vol]Or dered By: Brianda Harris on 11-26-2021 MCHC (RBC) [Mass/Vol] 32.6 g/dL 32.0-35.0 [facility] MCV Auto (RBC) [Entitic vol] Ordered By: Brianda Harris on 11-26-2021 MCV (RBC) [Entitic vol] 86.4 fL 80-100 [facility] Monocytes Auto (Bld) [#/Vol] Ordered By: Brianda Harris on 11-26-2021 Monocytes (Bld) [#/Vol] 0.8 10*3/uL 0.0-0.8 [facility] Monocytes/100 WBC Auto (Bld) Ordered By: Brianda Harris on 11-26-2021 Monocytes/100 WBC (Bld) 5.0 % . [facility] Neutrophils Auto (Bld) [#/Vo l]Ordered By: Brianda Harris on 11-26-2021 Neutrophils (Bld) [#/Vol] 13.7 10*3/uL 1.8-7.7 [facility] Neutrophils/100 WBC Auto (Bl d)Ordered By: Brianda Harris on 11-26-2021 Neutrophils/100 WBC (Bld) 86.7 % . [facility] No Panel InformationOrdered By: Brianda Harris on 11-26-2021 Estimated GFR () > 60 mL/Min [facility] Comment on above: GFR estimated refere nce range: According to KDOQI guidelines, <60 ml/min/1.73m2 is sufficient to diagnose a patient with chronic kidney disease. Pharmacy Creatinine Clearance (Chem N/A [facility] Platelet mean volume Auto (B ld) [Entitic vol]Ordered By: Brianda Harris on 11-26-2021 Platelet mean volume (Bld) [Entitic vol] 9.3 fL 6.3-10.7 [facility] Platelets Auto (Bld) [#/Vol] Ordered By: Brianda Harris on 11-26-2021 Platelets (Bld) [#/Vol] 277 10*3/uL 150-450 [facility] Protein [Mass/volume] in Ser um or PlasmaOrdered By: Brianda Harris on 11-26-2021 Protein [Mass/Vol] 7.2 g/dL 6.1-7.9 [facility] RBC Auto (Bld) [#/Vol]Ordere d By: Brianda Harris on 11-26-2021 RBC (Bld) [#/Vol] 4.68 10*6/uL 3.60-5.00 [facility] Serum or plasma alanine kenny otransferase measurement without P-5'-P (enzymatic activiOrdered By: Brianda Harris on 11-26-2021 ALT No additional P-5'-P [Catalytic activity/Vol] 20 U/L 10-60 [facility] Serum or plasma albumin/glob ulin mass ratioOrdered By: Brianda Harris on 11-26-2021 Albumin/Globulin [Mass ratio] 0.8 {ratio} [facility] Serum or plasma alkaline lisy sphatase measurement (enzymatic activity/volume)Ordered By: Brianda Harris on 11-26-2021 ALP [Catalytic activity/Vol] 60 U/L 32-92 [facility] Serum or plasma anion gap de terminationOrdered By: Brianda Harris on 11-26-2021 Anion gap [Moles/Vol] 18.5 mmol/L 6.0-15.0 [facility] Serum or plasma aspartate am inotransferase measurement (enzymatic activity/volume)Ordered By: Brianda Harris on 11-26-2021 AST [Catalytic activity/Vol] 28 U/L 10-42 [facility] Serum or plasma calcium rashmi urement (mass/volume)Ordered By: Brianda Harris on 11-26-2021 Calcium [Mass/Vol] 9.1 mg/dL 8.2-10.2 [facility] Serum or plasma chloride reece surement (moles/volume)Ordered By: Brianda Harris on 11-26-2021 Chloride [Moles/Vol] 90 mmol/L 95-114 [facility] Serum or plasma glucose rashmi urement (mass/volume)Ordered By: Brianda Harris on 11-26-2021 Glucose [Mass/Vol] 93 mg/dL 70-100 [facility] Comment on above: ADA recommended refe rence rangeRandom Glucose Reference Range is dependent on time and content of last meal. Glucose of more than 200 mg/dL in a nonstressed, ambulatory subject supports the diagnosis of Diabetes Mellitus. Serum or plasma potassium me asurement (moles/volume)Ordered By: Brianda Harris on 11-26-2021 Potassium [Moles/Vol] 3.7 mmol/L 3.5-5.1 [facility] Serum or plasma sodium measu rement (moles/volume)Ordered By: Brianda Harris on 11-26-2021 Sodium [Moles/Vol] 127 mmol/L 136-146 [facility] Serum or plasma total biliru bin measurement (mass/volume)Ordered By: Brianda Harris on 11-26-2021 Bilirubin [Mass/Vol] 0.3 mg/dL 0.3-1.2 [facility] Serum or plasma total carbon dioxide measurement (moles/volume)Ordered By: Brianda Harris on 11-26-2021 CO2 [Moles/Vol] 22.2 mmol/L 22.0-30.0 [facility] Serum or plasma urea nitroge n measurement (mass/volume)Ordered By: Brianda Harris on 11-26-2021 Urea nitrogen [Mass/Vol] 13 mg/dL 9-23 [facility] CBC AUTO DIFFon 08-25-2021 BASO # 0.0 103/ul Normal 0.0-0.1 [facility] Comment on above: Performed By: #### C MADM, BNP, CMP #### [facility] [address] [address] [address] Marco Greer Basophils/100 WBC (Bld) 0.8 % Normal 0.2-2.0 [facility] Comment on above: Performed By: #### C MADM, BNP, CMP #### [facility] [address] [address] [address] Marco Greer EO # 0.2 103/ul Normal 0.0-0.7 [facility] Comment on above: Performed By: #### C MADM, BNP, CMP #### [facility] [address] [address] [address] Marco Greer Eosinophils/100 WBC (Bld) 4.0 % Normal 0.9-7.0 [facility] Comment on above: Performed By: #### C MADM, BNP, CMP #### [facility] [address] [place] [address] Dr. Marco Greer Erythrocyte distribution width (RBC) [Ratio] 14.7 % Normal 11.0-15.0 [facility] Comment on above: Performed By: #### C MADM, BNP, CMP #### [facility] [address] [place] [address] Dr. Marco Greer Hematocrit (Bld) [Volume fraction] 40.4 % Normal 36.0-48.0 [facility] Comment on above: Performed By: #### C MADM, BNP, CMP #### [facility] [address] [place] [address] Dr. Marco Greer Hemoglobin (Bld) [Mass/Vol] 13.3 g/dL Normal 12.0-16.0 [facility] Comment on above: Performed By: #### C MADM, BNP, CMP #### [facility] [address] [place] [address] Dr. Marco Greer IG # 0.01 10e3/ul Normal 0.00-0.03 [facility] Comment on above: Performed By: #### C MADM, BNP, CMP #### [facility] [address] [place] [address] Dr. Marco Greer IG % 0.2 % Normal 0.0-0.5 [facility] Comment on above: Performed By: #### C MADM, BNP, CMP #### [facility] [address] [place] [address] Dr. Marco Greer LYMPH # 1.7 103/ul Normal 1.2-3.8 [facility] Comment on above: Performed By: #### C MADM, BNP, CMP #### [facility] [address] [place] [address] Dr. Marco Greer Lymphocytes/100 WBC (Bld) 36.1 % Normal 20.5-60.0 [facility] Comment on above: Performed By: #### C MADM, BNP, CMP #### [facility] [address] [address] [address] Marco Greer MANUAL DIFF REQ NO Normal [facility] Comment on above: Performed By: #### C MADM, BNP, CMP #### [facility] [address] [place] [address] Dr. Marco Greer MCH (RBC) [Entitic mass] 28.9 pg Normal 26.7-34.0 [facility] Comment on above: Performed By: #### C MADM, BNP, CMP #### [facility] [address] [place] [address] Dr. Marco Greer MCHC (RBC) [Mass/Vol] 32.9 g/dL Normal 29.9-35.2 [facility] Comment on above: Performed By: #### C MADM, BNP, CMP #### [facility] [address] [place] [address] Dr. Marco Gerer MCV (RBC) [Entitic vol] 87.8 fL Normal 81.0-99.0 [facility] Comment on above: Performed By: #### C MADM, BNP, CMP #### [facility] [address] [place] [address] Dr. Marco Greer MONO # 0.9 103/ul Critically high 0.3-0.8 [facility] Comment on above: Performed By: #### C MADM, BNP, CMP #### [facility] [address] [place] [address] Dr. Marco Greer Monocytes/100 WBC (Bld) 19.0 % Critically high 1.7-12.0 [facility] Comment on above: Performed By: #### C MADM, BNP, CMP #### [facility] [address] [place] [address] Dr. Marco Greer NEUT # 1.9 103/ul Normal 1.4-6.5 [facility] Comment on above: Performed By: #### C MADM, BNP, CMP #### [facility] [address] [place] [address] Dr. Marco Greer Neutrophils/100 WBC (Bld) 39.9 % Critically low 43.0-75.0 [facility] Comment on above: Performed By: #### C MADM, BNP, CMP #### [facility] [address] [place] [address] Dr. Marco Greer Platelet mean volume (Bld) [Entitic vol] 11.1 fL Normal 9.5-13.5 [facility] Comment on above: Performed By: #### C MADM, BNP, CMP #### [facility] [address] [place] [address] Dr. Marco Greer PLT 230 103/ul Normal 150-450 [facility] Comment on above: Performed By: #### C MADM, BNP, CMP #### [facility] [address] [place] [address] Dr. Marco Greer RBC 4.60 106/ul Normal 4.20-5.40 [facility] Comment on above: Performed By: #### C MADM, BNP, CMP #### [facility] [address] [place] [address] Dr. Marco Greer WBC 4.7 103/ul Normal 4.0-11.0 [facility] Comment on above: Performed By: #### C MADM, BNP, CMP #### [facility] [address] [place] [address] Dr. Marco Greer PROF 14(COMP METB)on 022 Albumin [Mass/Vol] 3.1 g/dL Critically low 3.4-5.0 [facility] Comment on above: Performed By: #### C MP #### [facility] [address] [place] [address] Dr. Marco Greer Albumin/Globulin [Mass ratio] 0.8 {ratio} Normal [facility] Comment on above: Performed By: #### C MP #### [facility] [address] [place] [address] Dr. Macro Greer ALP [Catalytic activity/Vol] 65 U/L Normal 46-116 [facility] Comment on above: Performed By: #### C MP #### [facility] [address] [place] [address] Dr. Marco Greer ALT [Catalytic activity/Vol] 21 U/L Normal 14-59 [facility] Comment on above: Performed By: #### C MP #### [facility] [address] [address] [address] Marco Greer Anion gap [Moles/Vol] 12.0 mmol/L Normal Th e [facility] Comment on above: Performed By: #### C MP #### [facility] [address] [address] [address] Marco Greer AST [Catalytic activity/Vol] 21 U/L Normal 15-37 [facility] Comment on above: Performed By: #### C MP #### [facility] [address] [place] [address] Dr. Marco Greer Bilirubin [Mass/Vol] 0.3 mg/dL Normal 0.2-1.0 [facility] Comment on above: Performed By: #### C MP #### [facility] [address] [place] [address] Dr. Marco Greer Calcium [Mass/Vol] 8.8 mg/dL Normal 8.5-10.1 [facility] Comment on above: Performed By: #### C MP #### [facility] [address] [place] [address] Dr. Marco Greer Chloride [Moles/Vol] 99 mmol/L Normal 98-107 [facility] Comment on above: Performed By: #### C MP #### [facility] [address] [place] [address] Dr. Marco Greer CO2 [Moles/Vol] 26.3 mmol/L Normal 21.0-32.0 [facility] Comment on above: Performed By: #### C MP #### [facility] [address] [place] [address] Dr. Marco Greer Creatinine [Mass/Vol] 0.80 mg/dL Normal 0.55-1.02 [facility] Comment on above: Performed By: #### C MP #### [facility] [address] [place] [address] Dr. Marco Greer EGFR-AF CITIZEN OF [place] >60 Normal >=60 [facility] Comment on above: Performed By: #### C MP #### [facility] [address] [address] [address] Marco Greer EGFR-NON AF CITIZEN OF [place] >60 Normal >=60 [facility] Comment on above: Performed By: #### C MP #### [facility] [address] [address] [address] Marco Greer Globulin (S) [Mass/Vol] 3.8 g/dL Normal [facility] Comment on above: Performed By: #### C MP #### [facility] [address] [address] [address] Marco Greer Glucose [Mass/Vol] 87 mg/dL Normal 74-106 [facility] Comment on above: Performed By: #### C MP #### [facility] [address] [place] [address] Dr. Marco Greer Potassium [Moles/Vol] 4.3 mmol/L Normal 3.5-5.1 [facility] Comment on above: Performed By: #### C MP #### [facility] [address] [place] [address] Dr. Marco Greer Protein [Mass/Vol] 6.9 g/dL Normal 6.4-8.2 [facility] Comment on above: Performed By: #### C MP #### [facility] [address] [place] [address] Dr. Marco Greer Sodium [Moles/Vol] 133 mmol/L Critically low 136-[address] [facility] Comment on above: Performed By: #### C MP #### [facility] [address] [place] [address] Dr. Marco Greer Urea nitrogen [Mass/Vol] 10.0 mg/dL Normal 7.0-18.0 [facility] Comment on above: Performed By: #### C MP #### [facility] [address] [address] [address] Marco Greer Urea nitrogen/Creatinine [Mass ratio] 12.5 mg/mg Normal [facility] Comment on above: Performed By: #### C MP #### [facility] [address] [place], [place] [address] Dr. Marco Greer SED RATE [facility] 2021 SED RATE 38 mm/hr Critically high <=30 The [facility] Comment on above: Performed By: #### C MADM, BNP, CMP #### [facility] [address] [place], [place] [address] Dr. Marco Greer Vital Signs Date Time Vital Sign Value Performing Clinician Facility 12-06-2023 11:46-0400 Body height 162.56 cm MD Jonathon Kaur Work Phone: [facility] 12-06-2023 11:46-0400 Body mass index (BMI) [Ratio] 21.5 kg/m2 MD Jonathon Kaur Work Phone: [facility] 12-06-2023 11:46-0400 Body temperature 97.6 [degF] MD Jonathon Kaur Work Phone: [facility] 12-06-2023 11:46-0400 Body weight 57 kg MD Jonathon Kaur Work Phone: [facility] 12-06-2023 11:46-0400 Diastolic blood pressure 82 mm[Hg] MD Jonathon Kaur Work Phone: [facility] 12-06-2023 11:46-0400 Heart rate 50 /min MD Jonathon Kaur Work Phone: [facility] 12-06-2023 11:46-0400 Respiratory rate 16 /min MD Jonathon Kaur Work Phone: [facility] 12-06-2023 11:46-0400 SaO2% (BldA) [Mass fraction] 95 % MD Jonathon Kaur Work Phone: [facility] 12-06-2023 11:46-0400 Systolic blood pressure 124 mm[Hg] MD Jonathon Kaur Work Phone: [facility] 05-25-2023 12:53-0400 Body height 162.56 cm MD Jonathon Kaur Work Phone: [facility] 05-25-2023 12:53-0400 Body mass index (BMI) [Ratio] 21.6 kg/m2 MD Jonathon Kaur Work Phone: [facility] 05-25-2023 12:53-0400 Body temperature 96.4 [degF] MD Jonathon Kaur Work Phone: [facility] 05-25-2023 12:53-0400 Body weight 57.15 kg MD Jonathon Kaur Work Phone: [facility] 05-25-2023 12:53-0400 Diastolic blood pressure 68 mm[Hg] MD Jonathon Kaur Work Phone: [facility] 05-25-2023 12:53-0400 Heart rate 60 /min MD Jonathon Kaur Work Phone: [facility] 05-25-2023 12:53-0400 SaO2% (BldA) [Mass fraction] 99 % MD Jonathon Kaur Work Phone: [facility] 05-25-2023 12:53-0400 Systolic blood pressure 120 mm[Hg] MD Jonathon Kaur Work Phone: [facility] 04-21-2022 13:15-0500 Body height 162.56 cm Blake Zhao Other [facility] Other 04-21-2022 13:15-0500 Body mass index (BMI) [Ratio] 20.42 kg/m2 Blake Zhao Other [facility] [employer] Other 04-21-2022 13:15-0500 Body temperature 96.3 [degF] Blake Zhao Other [facility] [employer] Other 04-21-2022 13:15-0500 Body weight 53.98 kg Blake Buehrer Other [employer] Other 04-21-2022 13:15-0500 Diastolic blood pressure 60 mm[Hg] Blake Buehrer Other [facility] [employer] Other 04-21-2022 13:15-0500 SaO2% (BldA) [Mass fraction] 98 % Blake Buehrer Other [employer] Other 04-21-2022 13:15-0500 Systolic blood pressure 160 mm[Hg] Blake Buehrer Other [facility] [employer] Other 04-06-2022 10:45-0500 Body height 162.56 cm Blake Buehrer Other [employer] [facility] [employer] Other 04-06-2022 10:45-0500 Body mass index (BMI) [Ratio] 20.42 kg/m2 Blake Buehrer Other [facility] [employer] Other 04-06-2022 10:45-0500 Body temperature 97.8 [degF] Blake Buehrer Other [employer] Other 04-06-2022 10:45-0500 Body weight 53.98 kg Blake Buehrer Other [employer] Other 04-06-2022 10:45-0500 Diastolic blood pressure 78 mm[Hg] Blake Buehrer Other [employer] Other 04-06-2022 10:45-0500 SaO2% (BldA) [Mass fraction] 95 % Blake Buehrer Other [employer] Other 04-06-2022 10:45-0500 Systolic blood pressure 112 mm[Hg] Blake Zhao Other [employer] Other 03-27-2022 11:52-0500 Body height 162.56 cm Jonathon A Naderer Work Phone: [facility]Zyniyfisps[facility] [place] [address] [place] Work Phone: 03-27-2022 11:52-0500 Body mass index (BMI) [Ratio] 20.43 kg/m2 Jonathon A Naderer Work Phone: UN-Qnkelwpcni-Ieszla [place] [address] DO Work Phone: 03-27-2022 11:52-0500 Body surface area Derived from formula 1.57 m2 Jonathon A Naderer Work Phone: RV-Czjpkqgfcm-Pdbkye [place] [address] DO Work Phone: 03-27-2022 11:52-0500 Body weight 53.98 kg Jonathon A Naderer Work Phone: UC-Pzzcndfggl-Oziyaa [place] [address] DO Work Phone: 03-27-2022 11:52-0500 Diastolic blood pressure 70 mm[Hg] Jonathon A Naderer Work Phone: CX-Gyzhjpewrx-Dyvpye [place] [address] DO Work Phone: 03-27-2022 11:52-0500 Heart rate 60 /min Jonathon A Naderer Work Phone: XL-Dwqhdrjqer-Pmlnuu [place] [address] DO Work Phone: 03-27-2022 11:52-0500 Systolic blood pressure 168 mm[Hg] Jonathon A Naderer Work Phone: DB-Rtndjxjmoh-Tbisyq [place] [address] DO Work Phone: 02-27-2022 13:19-0500 Body height 162.56 cm Jonathon A Naderer Work Phone: EU-Nfqyyxrhcr-UHC [facility] [address] [place] Work Phone: 02-27-2022 13:19-0500 Body mass index (BMI) [Ratio] 20.79 kg/m2 Jonathon Leesr Work Phone: SD-Vnkxhyiyzj-ZPH [facility] [address] [place] Work Phone: 02-27-2022 13:19-0500 Body surface area Derived from formula 1.58 m2 Jonathon Leesr Work Phone: VT-Bjwqidxvyl-HLU [facility] [address] [place] Work Phone: 02-27-2022 13:19-0500 Body weight 54.94 kg Jonathon Kaur Work Phone: BQ-Ebjcjuqbdx-MPF [facility] [address] [place] Work Phone: 02-27-2022 13:19-0500 Diastolic blood pressure 63 mm[Hg] Jonathon Leesr Work Phone: BO-Zvdmoczyld-KUZ [facility] [address] [place] Work Phone: 02-27-2022 13:19-0500 Heart rate 61 /min Jonathon Kaur Work Phone: CJ-Xdabfnjxyu-TAM [facility] [address] [place] Work Phone: 02-27-2022 13:19-0500 SaO2% (BldA) [Mass fraction] 95 % Jonathon Kaur Work Phone: OU-Awkiqcejdg-PVT [facility] [address] [place] Work Phone: 02-27-2022 13:19-0500 Systolic blood pressure 174 mm[Hg] Jonathon Leesr Work Phone: ZP-Nxohaycouz-ARE [facility] [address] [place] Work Phone: 02-27-2022 13:19-0500 0 1 Jonathon Leesr Work Phone: NG-Wvelegoeif-VOB [facility] [address] [place] Work Phone: Comment on above: [employer] 02-17-2022 13:53-0500 Body height 162.56 cm Jonathon Shaffer Naderer Work Phone: -[facility] Work Phone: 02-17-2022 13:53-0500 Body mass index (BMI) [Ratio] 21.89 kg/m2 Jonathon Shaffer Naderer Work Phone: -[facility] Work Phone: 02-17-2022 13:53-0500 Body surface area Derived from formula 1.62 m2 Jonathon Shaffer Naderer Work Phone: -[facility] Work Phone: 02-17-2022 13:53-0500 Body weight 57.83 kg Jonathon Shaffer Naderer Work Phone: -[facility] Work Phone: 02-17-2022 13:53-0500 Diastolic blood pressure 90 mm[Hg] Jonathon Shaffer Naderer Work Phone: -[facility] Work Phone: 02-17-2022 13:53-0500 Heart rate 54 /min Jonathon Shaffer Naderer Work Phone: -[facility] Work Phone: 02-17-2022 13:53-0500 Systolic blood pressure 132 mm[Hg] Jonathon Shaffer Naderer Work Phone: -[facility] Work Phone: 02-13-2022 11:46-0500 Diastolic blood pressure 84 mm[Hg] Jonathon Shaffer Naderer Work Phone: [facility] [address] [place] Work Phone: 02-13-2022 11:46-0500 Systolic blood pressure 192 mm[Hg] Jonathon Shaffer Naderer Work Phone: [facility] [address] DO Work Phone: 02-13-2022 11:20-0500 Diastolic blood pressure 62 mm[Hg] Jonathon Edmund Naderer Work Phone: [facility] [address] DO Work Phone: 02-13-2022 11:20-0500 Systolic blood pressure 200 mm[Hg] Jonathon Edmund Naderer Work Phone: [facility] [address] DO Work Phone: 02-13-2022 11:15-0500 Body height 162.56 cm Jonathon Edmund Naderer Work Phone: [facility] [address] DO Work Phone: 02-13-2022 11:15-0500 Body mass index (BMI) [Ratio] 21.46 kg/m2 Jonathon Edmund Naderer Work Phone: [facility] [address] DO Work Phone: 02-13-2022 11:15-0500 Body surface area Derived from formula 1.6 m2 Jonathon Edmund Naderer Work Phone: [facility] [address] DO Work Phone: 02-13-2022 11:15-0500 Body weight 56.7 kg Jonathon Edmund Naderer Work Phone: [facility] [address] DO Work Phone: 02-13-2022 11:15-0500 Diastolic blood pressure 70 mm[Hg] Jonathon Shaffer Naderer Work Phone: [facility] [address] DO Work Phone: 02-13-2022 11:15-0500 Heart rate 61 /min Jonathon Shaffer Naderer Work Phone: [facility] [address] DO Work Phone: 02-13-2022 11:15-0500 Systolic blood pressure 204 mm[Hg] Jonathon Kaur Work Phone: [facility] [address] DO Work Phone: 01-28-2022 17:01-0500 Body temperature 98.6 [degF] Pcp Unknown [facility] 01-28-2022 17:01-0500 Diastolic blood pressure 68 mm[Hg] Pcp Unknown [facility] 01-28-2022 17:01-0500 Heart rate 75 /min Pcp Unknown [facility] 01-28-2022 17:01-0500 Respiratory rate 18 /min Pcp Unknown [facility] 01-28-2022 17:01-0500 SaO2% (BldA) [Mass fraction] 97 % Pcp Unknown [facility] 01-28-2022 17:01-0500 Systolic blood pressure 148 mm[Hg] Pcp Unknown [facility] 01-28-2022 03:27-0500 Body weight 62.2 kg Pcp Unknown [facility] 01-06-2022 08:00-0400 Body temperature 97.2 [degF] PHYSICIAN NO [facility] 01-06-2022 08:00-0400 Diastolic blood pressure 56 mm[Hg] PHYSICIAN NO [facility] 01-06-2022 08:00-0400 Heart rate 74 /min PHYSICIAN NO [facility] 01-06-2022 08:00-0400 Respiratory rate 18 /min PHYSICIAN NO [facility] 01-06-2022 08:00-0400 SaO2% (BldA) [Mass fraction] 97 % PHYSICIAN NO [facility] 01-06-2022 08:00-0400 Systolic blood pressure 125 mm[Hg] PHYSICIAN NO [facility] 01-06-2022 06:00-0400 Body weight 58.9 kg PHYSICIAN NO [facility] 01-02-2022 18:59-0400 Body height 162.56 cm PHYSICIAN NO [facility] Encounters Encounter Date Encounter Type Care Provider Facility Start: 12-06-2023 End: 12-06-2023 ambulatory MD Jonathon Kaur Work Phone: [facility] Work Phone: Start: 12-06-2023 End: 12-06-2023 Patient encounter procedure MD Jonathon Kaur Work Phone: [facility] Surgery Work Phone: Start: 10-18-2023 End: 10-18-2023 ambulatory [facility] Start: 10-12-2023 Non-patient / Non-visit MD Jonathon Kaur Work Phone: [facility] Work Phone: Start: 09-30-2023 End: 09-30-2023 ambulatory [facility] Start: 09-23-2023 End: 09-23-2023 Patient encounter procedure MD Jonathon Kaur Work Phone: [facility] [address] Work Phone: Start: 09-23-2023 End: 09-23-2023 ambulatory MD Jonathon Kaur Work Phone: [facility] Work Phone: Start: 07-19-2023 End: 07-19-2023 ambulatory [facility] Start: 07-14-2023 End: 07-14-2023 ambulatory JONATHON KAUR Not Available Start: 06-03-2023 End: 06-03-2023 Patient encounter procedure MD Jonathon Kaur Work Phone: [facility] [address] Work Phone: Start: 06-03-2023 End: 06-03-2023 ambulatory MD Jonathon Kaur Work Phone: [facility] Work Phone: Start: 05-25-2023 End: 05-25-2023 Patient encounter procedure MD Jonathon Kaur Work Phone: [facility] Vascular Surgery Work Phone: Start: 05-25-2023 End: 05-25-2023 ambulatory Blake Zhao Facility:[facility] Start: 12-21-2022 End: 12-21-2022 ambulatory [facility] Start: 12-15-2022 End: 12-15-2022 Patient encounter procedure MD Jonathon Kaur Work Phone: [facility] [address] Work Phone: Start: 12-15-2022 End: 12-15-2022 ambulatory MD Jonathon Kaur Work Phone: [facility] Work Phone: Start: 11-24-2022 End: 11-24-2022 ambulatory MD Jonathon Kaur Work Phone: [facility] Work Phone: Start: 11-24-2022 End: 11-24-2022 Patient encounter procedure MD Jonathon Kaur Work Phone: [facility]Ultrasound [facility] Start: 08-18-2022 Rx Renewal Jonathon Kaur Work Phone[facility] [place] [facility] Work Phone: Start: 06-26-2022 End: 06-27-[address] DAPHNE MCGUIRE Facility: Start: 05-20-2022 Rx Renewal Jonathon Kaur Work Phone: [facility] [place] [facility] Work Phone: Start: 04-21-2022 End: 04-21-2022 ambulatory Blake Zhao Other [facility] [employer] Other Start: 04-21-2022 Office outpatient visit 25 minutes Blake Zhao [facility] Vascular Surgery Start: 04-13-2022 ambulatory Radha Copeland M.D. Facility : Start: 04-06-2022 End: 04-06-2022 ambulatory Blake Zhao Other [facility] [employer] Other Start: 04-06-2022 Office outpatient ne w 45 minutes Blake Zhao [facility] Vascular Surgery Start: 04-03-2022 End: 04-04-[address] DOCTOR PABON Facility:[facility] Start: 04-01-2022 Patient encounter procedure Jonathon Kaur Work Phone: [facility] [address] DO Work Phone: Start: 04-01-[address] Miri Hunt ty: Start: 03-27-2022 Office outpatient visit 25 minutes Jonathon Kaur Work Phone: VX-Gznjlsbbek-Yrysykcc 250 DO Work Phone: Start: 03-27-[address] Miri Hunt ty: Start: 03-11-2022 End: 03-12-[address] JONATHON KAUR Facility: Start: 03-04-2022 End: 03-04-2022 ambulatory MD Jonathon Kaur Work Phone: [facility] Work Phone: Start: 03-04-2022 End: 03-04-2022 Patient encounter procedure MD Jonathon Kaur Work Phone: [facility] [address] Start: 02-27-2022 ambulatory ALBIN ABU-CHRISTIAN Facility :[facility] Start: 02-27-2022 Postop follow up vis it related to original px Jonathon Kaur Work Phone: EO-Pwsrtnpujr-K[facility] [address] [place] Work Phone: Start: 02-27-2022 ambulatory ALBIN ABU-CHRISTIAN Facility :[facility] Start: 02-27-2022 ambulatory ALBIN ABU-CHRISTIAN Facility :[facility] Start: 02-24-2022 End: 02-24-2022 Departed Referred MD Jonathon Kaur Work Phone: [facility] [address] [place] Start: 02-17-2022 Office outpatient ne w 45 minutes Jonathon Kaur Work Phone: -[facility] Work Phone: Start: 02-17-[address] Kvng santana [place] Facility:[id number] Start: 02-13-2022 Office outpatient ne w 45 minutes Jonathon Kaur Work Phone: -[facility] [address] DO Work Phone: Start: 02-13-[address] Miri Hunt ty: Start: 02-10-2022 End: 02-11-[address] JONATHON KAUR Facility:[facility] Start: 01-06-2022 End: 01-06-2022 ambulatory UNKNOWN PROVIDER Facility:[facility] Start: 01-06-2022 End: 01-28-2022 Evaluation and management of inpatient Albin [facility] [id number] Rm [id number] Start: 01-02-2022 End: 01-06-2022 Evaluation and management of inpatient PHYSICIAN NO [facility] [place] [facility] Start: 01-02-2022 End: 01-02-[address] BUD BROUSSARD Facility:[facility] Start: 11-26-2021 End: 11-26-2021 Patient encounter procedure PHYSICIAN NO [facility] [address] Start: 08-25-2021 [...] COR Angio PHYS ICIAN NO FAMILY Cholecystectomy oJnathon Arreguin er Work Phone: Coronary artery bypa [...] of bilateral carotid arteries US carotid doppler [facility] Start: 06-19-2022 FUV, Provider: Miri Hill, Status: Pen, Time: 3:00 PM FUV, Provider: Miri Hill, Status: Pen, Time: 3:[address] [facility] 250 DO Work Phone: Start: 04-03-2022 NPV, Provider: Sivakumar Corbett, Status: Pen, Time: 9:15 AM NPV, Provider: Sivakumar Corbett, Status: Pen, Time: 9:[address] [facility] 250 DO Work Phone: Start: 04-03-2022 Patient encounter procedure P [facility] [place] Start: 04-02-2022 EVENT JEREMY, Provider: DEV PEPPER DOT ETCHER APPRENTICE 1,[id number], Status: Pen, Time: 1:30 PM EVENT JEREMY, Provider: DEV PEPPER DOT ETCHER APPRENTICE 1,[id number], Status: Pen, Time: 1:30 PM [facility]-Lhmyvzcuta-[place] [address] DO Work Phone: Start: 02-27-2022 Patient encounter procedure [facility] [place] Start: 02-27-2022 POV, Provider: Albin Pierce, Status: Pen, Time: 1:00 PM POV, Provider: Albin Pierce, Status: Pen, Time: 1:00 PM -[facility] 250 DO Work Phone: Start: 02-17-2022 Patient encounter procedure [facility] Cardiology [place] Start: 02-17-2022 NPV, Provider: Kvng Romo, Status: Pen, Time: 1:45 PM NPV, Provider: Kvng Romo, Status: Pen, Time: 1:45 PM -[facility] 250 DO Work Phone: Start: 02-17-2022 Patient encounter procedure [facility] [place] Start: 02-13-2022 Patient encounter procedure [facility] Cardiology [place] Start: 01-12-2022 End: 01-13-2023 Bisacodyl Rectal 10 mg Suppository Daily PRN ; Suppository (DULCOLAX)DOSE = 10 mg Rectal Daily, PRN Constipation Start: 12-Jan-2022 End: 12-Jan-2023 Ordered: 12-Jan-2022 Jillian Hagan Intent [facility] Start: 01-08-2022 Preprocedural cardiovascular examination Preprocedural cardiovascular examination Date: 08-Jan-2022 [facility] Start: 01-06-2022 Cardiac ischemia Cardiac ischemia Date: 06-Jan-2022 [facility] Start: 01-06-2022 Carotid stenosis Carotid stenosis Date: 06-Jan-2022 [facility] Start: 01-06-2022 Pre-operative cardiovascular examination [facility] Start: 01-06-2022 PVD (peripheral vascular disease) PVD (peripheral vascular disease) Date: 06-Jan-2022 [facility] Start: 01-06-2022 [facility] Start: 01-05-2022 [facility] Start: 01-02-2022 Referral to health worker [facility] Start: 01-02-2022 Hospital admission [facility] Start: 01-02-2022 Fluoroscopy of Left Heart using Low Osmolar Contrast Fluoroscopy of Left Heart using Low Osmolar Contrast [facility] Start: 01-02-2022 Fluoroscopy of Multiple Coronary Arteries using Low Osmolar Contrast Fluoroscopy of Multiple Coronary Arteries using Low Osmolar Contrast [facility] Start: 01-02-2022 Measurement of Cardiac Sampling and Pressure, Left Heart, Percutaneous Approach Measurement of Cardiac Sampling and Pressure, Left Heart, Percutaneous Approach [facility] Patient referral [facility] Work Phone: US.doppler Carotid arteries - bilateral [facility] Payers Date Payer Category Payer Self-pay [id number] 2019 Unknown 2010 Unknown [id number] 1959 Medicare [id number] 1959 Unknown [id number] 1942 Unknown [id number] 2.16. 840.1.887636.3.579.2.732 1942 Unknown [id number] 2.16.84 0.1.504971.3.579.2.593 1942 Unknown [id number] 2.16.84 0.1.743631.3.579.2.593 1942 Unknown [id number] 2.16.84 0.1.876266.3.579.2.593 1942 Unknown [id number] 2.16.84 0.1.569125.3.579.2.593 1942 Unknown [id number] 2.16.84 0.1.534589.3.579.2.593 1942 Unknown [id number] 2.16.84 0.1.502939.3.579.2.593 1942 Unknown [id number] 2.16. 840.1.316125.3.579.2.356 1942 Unknown [id number] 2.16. 840.1.560418.3.579.2.356 1942 Unknown [id number] 2.16. 840.1.484700.3.579.2.356 1942 Unknown [id number] 2.16. 840.1.626365.3.579.2.356 1942 Unknown [id number] 2.16. 840.1.333710.3.579.2.356 1942 Unknown [id number] 2.16. 840.1.269685.3.579.2.356 1942 Unknown [id number] 2.16. 840.1.220373.3.579.2.356 1942 Unknown [id number] 2.16. 840.1.108860.3.579.2.356 1942 Unknown [id number] 2.16.84 0.1.406714.3.579.2.1259 Unknown [id number] 2.16.8 40.1.929604.3.579.2.531 Unknown [id number] 2.16.8 40.1.200171.3.579.2.531 Unknown [id number] 2.16.8 40.1.128190.3.579.2.531 Unknown [id number] 2.16.8 40.1.021994.3.579.2.531 Unknown [id number] 2.16.8 40.1.653066.3.579.2.531 Social History Date Type Detail Facility Start: 01-03-2022 End: 01-03-2022 Tobacco smoking status DCIS Ex-smoker (finding) [facility] Start: 1940 Sex Assigned At Female [facility] Tobacco smoking consumption unknown [facility] No alcohol use No alcohol use -[facility] [address] DO Work Phone: Comment on above: 1 pack daily- Quit i n 1990s; Sex Assigned At Sex Assigned At [facility] Compufirst Other Goals Date Patient Goal Desired Activity /State Functional Status Date Assessment Result Facility 01-02-2022 Functional status Patient at Baseline [facility] Work Phone: Bladder: fully continent [facility] Mental Status Date Assessment Result Facility 01-17-2022 Mentally alert [facility] 01-02-2022 Cognitive function Cognitive Sta tus Patient at Baseline [facility] Work Phone: Clinical Notes 01-02-2022 to 10-18-2023 Note Date & Type Note Facility 10-18-2023 Note [facility] Cardiology Clinic Note Chief Complaint: Patient here for 6 mo follow up CAD, chronic systolic heart failure, and hypertension. Had routine labs last week with lipid panel. She presented to [facility] ED last month for BP over [...] to the [facility] and found to have a non-ST elevation myocardial infarction. She was subsequently transferred to [facility] for cardiac catheterization and then [facility] for bypass surgery. She has been doing well since. She currently denies exertional symptoms UPDATE 07/19/2023 She presented to [facility] ED last month for BP over [...] 70% stenosis Circumflex (more content not included)... [facility] 09-30-2023 Note [facility] Cardiology Clinic Note Chief Complaint: Patient here for 6 mo follow up CAD, chronic systolic heart failure, and hypertension. Had routine labs last week with lipid panel. She presented to [facility] ED last month for BP over [...] to the [facility] and found to have a non-ST elevation myocardial infarction. She was subsequently transferred to [facility] for cardiac catheterization and then [facility] for bypass surgery. She has been doing well since. She currently denies exertional symptoms UPDATE 07/19/2023 She presented to [facility] ED last month for BP over [...] left anterior descend (more content not included)... [facility] 07-19-2023 Note [facility] Cardiology Clinic Note Chief Complaint: Patient here for 6 mo follow up CAD, chronic systolic heart failure, and hypertension. Had routine labs last week with lipid panel. She presented to [facility] ED last month for BP over 200 systolic. Denies chest pain, SOB, and palpitations. HPI: Cely Finch is a 83 y.o. female with a history of hypertension and dyslipidemia and recent coronary artery bypass graft surgery here to establish care. In December, she was feeling unwell, she was brought to the [facility] and found to have a non-ST elevation myocardial infarction. She was subsequently transferred to [facility] for cardiac catheterization and then [facility] for bypass surgery. She has been doing well since. She currently denies exertional symptoms UPDATE 07/19/2023 She presented to [facility] ED last month for BP over [...] lateral segment lef (more content not included)... [facility] 12-21-2022 Note Cardiology Clinic No te Subjective [...] vein coronary artery bypass graft Atherosclerosis of chippewa-cree coronary artery of chip[place]cree heart Essential hypertension, benign Heart failure (CMS/HCC) [...] to the [facility] and found to have a non-ST elevation myocardial infarction. She was subsequently transferred to [facility] for cardiac catheterization and then [facility] for bypass surgery. Update: 12/21/2022 Seen in [...] for this visit: Coronary artery disease involving chippewa-cree coronary artery of chip[place]cree heart without angina pectoris Hx of CABG Chronic systolic heart failure (CMS/HCC) Essential hypertension Mixed hyperlipidemia Plan 1. Coronary artery disease (more content not included)... [facility] 12-21-2022 Note Patient here for 6 m [...] All other systems reviewed and are negative. [facility] 04-21-2022 Evaluation note Encounter Date Diagnosis Assessment [...] 6 months with a repeat duplex examination. [employer] [facility] [employer] [facility] 01-23-2023 Evaluation note* Encounter Date Diagnosis [...] after discussion if her anatomy is acceptable. [facility] [employer] 10-31-2022 History of Present illness Narrative* I reviewed her at the clinic today. She underwent coronary bypass grafting x3 on January 12 background of impaired left ventricular function. She has made an excellent recovery. At review today she had no complaints. * She has been followed up at the cardiology clinic and is keen to start rehab. CJ-Jqwmvnsykd-CDO Tierra Sanchez [address] [place] Work Phone: 1(997) 524-595710-31-2022 Reason for referral (narrative)* Reason for Referral: OT re-eval s/p CABG x3 (01/12) [facility]10-24-2022 Progress note Author Vandana Torres [facility] January 05, 2022 11:26am Note Date/Time January 05, 2022 1 1:26am [facility] [address] [place] [address] Hospitalist Progress Note Signed Patient: Cely Finch MR#: [id number] : 1940 Acct:[id number] Age/Sex: 81 / F Adm Date: 2 Loc: Room: [address] [place] [address] Type: ADM IN Attending Dr: Vandana Torres MD Copies to: ~ Date of Service: 01/05/2022 Subjective Subjective Narrative: Patient examined bedside with no overnight event. She denies any chest pain. Seen by cardiology and scheduled for cardiac cath later today. ASSESSMENT AND PLAN: 81F with PMH of RA, Hypothyroidism who p/w fall to [facility] and transferred for the evaluation and treatment of possible NSTEMI NSTEMI with Cardiomyopathy No chest pain today at rest, Feeling better The patient presents with chest pain after a fall. Troponin is elevated up to 8000 CXR ([facility] ED) reported as no acute cardiopulmonary abnormality [...] with right elbow laceration Right elbow XR ([facility]) reported as no Fx CT brain ([facility]) reported no acute intracranial process CT cervical spine without contrast ([facility]) reported DJD no acutebony injury Vit [...] signed by Vandana Torres MD> 01/05/22 1126 [facility] Work Phone: 1(838) 971-944110-24-2022 Progress note Author Gold Patrick [facility] January 05, 2022 11:26am Note Date/Time January 05, 2022 1 1:26am [facility] [address] [place] [address] Cardiology Progress Note Signed Patient: Cely Finch MR#: [id number] : 1940 Acct:[id number] Age/Sex: 81 / F Adm Date: 2 Loc: Room: [address] [place] [address] Type: ADM IN Attending Dr: Vandana Torres [...] MPV Neut % (Auto) Lymph % (Auto) [place] % (Auto) Eos % (Auto) Baso % (Auto) Neut # (Auto) Lymph # (Auto) [place] # (Auto) Eos # (Auto) Baso # [...] % (Auto) 61.8 Lymph % (Auto) 25.1 [place] % (Auto) 9.2 Eos % (Auto) 2.9 Baso % (Auto) 1.0 Neut # (Auto) 4.9 Lymph # (Auto) 2.0 [place] # (Auto) 0.7 Eos # (Auto) 0.2 [...] MPV Neut % (Auto) Lymph % (Auto) [place] % (Auto) Eos % (Auto) Baso % (Auto) Neut # (Auto) Lymph # (Auto) [place] # (Auto) Eos # (Auto) Baso # [...] signed by MD Gold Patrick> 01/05/22 1126 [facility] Work Phone: 1(652) 377-798110-24-2022 [facility] Progress note Author Jaya Bae [facility] January 04, 2022 6:30pm Note Date/Time January 04, 2022 6 :19pm [facility] [address] [place] [address] Hospitalist Progress Note Signed Patient: Cely Finch MR#: [id number] : 1940 Acct:[id number] Age/Sex: 81 / F Adm Date: 2 Loc: Room: [address] [place] [address] Type: ADM IN Attending Dr: Jaya Bae MD Copies to: ~ Date of Service: 01/04/2022 Subjective Subjective Narrative: Hospitalist Progress Note ASSESSMENT AND PLAN: 81F with PMH of RA, Hypothyroidism who p/w fall to [facility] and transferred for the evaluation and treatment of possible NSTEMI NSTEMI with Cardiomyopathy No chest pain today at rest, Feeling better The patient presents with chest pain after a fall. Troponin is elevated up to 8000 CXR ([facility] ED) reported as no acute cardiopulmonary abnormality Serial EKG shows NSR, no acute changes LDL 133, HDL 49 Mg wnl Echocardiogram shows EF 40%, severe hypokinesis of the mid to distal anteroseptal wall and apex, Nitroglycerin prn Morphine prn Telemetry Antiplatelet: Aspirin Anticoagulation: Heparin Drip Beta kristal therapy Cardiology was consulted, recommendation appreciated. For [facility] on Wednesday Mechanical Fall with right elbow laceration Right elbow XR ([facility]) reported as no Fx CT brain ([facility]) reported no acute intracranial process CT cervical spine without contrast ([facility]) reported DJD no acutebony injury Vit [...] signed by Jaya Bae MD> 01/04/22 183 [facility] Work Phone: 1(842) 480-508710-23-2022 Progress note Author Gold Patrick [facility] January 04, 2022 11:39am Note Date/Time January 04, 2022 1 1:38am [facility] [address] [place] [address] Cardiology Progress Note Signed Patient: Cely Finch MR#: [id number] : 1940 Acct:[id number] Age/Sex: 81 / F Adm Date: 2 Loc: Room: [address] [place] [address] Type: ADM IN Attending Dr: Jaya Bae [...] MPV Neut % (Auto) Lymph % (Auto) [place] % (Auto) Eos % (Auto) Baso % (Auto) Neut # (Auto) Lymph # (Auto) [place] # (Auto) Eos # (Auto) Baso # [...] % (Auto) 53.5 Lymph % (Auto) 32.1 [place] % (Auto) 10.5 Eos % (Auto) 2.9 Baso % (Auto) 1.0 Neut # (Auto) 3.0 Lymph # (Auto) 1.8 [place] # (Auto) 0.6 Eos # (Auto) 0.2 [...] MPV Neut % (Auto) Lymph % (Auto) [place] % (Auto) Eos % (Auto) Baso % (Auto) Neut # (Auto) Lymph # (Auto) [place] # (Auto) Eos # (Auto) Baso # [...] signed by MD Gold Patrick> 01/04/22 1139 [facility] Work Phone: 1(401) 121-401610-23-2022 Progress note Author Jaya Bae [facility] January 04, 2022 12:52am Note Date/Time January 03, 2022 7 :13pm [facility] [address] [place] [address] Hospitalist Progress Note Signed Patient: Cely Finch MR#: [id number] : 1940 Acct:[id number] Age/Sex: 81 / F Adm Date: 2 Loc: 4 Room: [address] [place] [address] Type: ADM IN Attending Dr: Jaya Bae MD Copies to: ~ Date of Service: 01/03/2022 Subjective Subjective Narrative: Hospitalist Progress Note ASSESSMENT AND PLAN: 81F with PMH of RA, Hypothyroidism who p/w fall to [facility] and transferred for the evaluation and treatment of possible NSTEMI NSTEMI with Cardiomyopathy No chest pain today at rest The patient presents with chest pain after a fall. Troponin is elevated up to 8000 CXR ([facility]) reported as no acute cardiopulmonary abnormality [...] with right elbow laceration Right elbow XR ([facility]) reported as no Fx CT brain ([facility]) reported no acute intracranial process CT cervical spine without contrast ([facility]) reported DJD no acutebony injury Vit [...] bed. feeling little . anxious about the [facility] will add xanax as needed ROS: [...] signed by Jaya Bae MD> 01/04/22 0052 [facility] Work Phone: 1(174) 718-664910-22-2022 Consult note Author Gold Patrick [facility] January 03, 2022 1:48pm Note Date/Time January 03, 2022 1 :39pm [facility] [address] [place] [address] Cardiology Consult Note Signed Patient: Cely Finch MR#: [id number] : 1940 Acct:[id number] Age/Sex: 81 / F Adm Date: 2 Loc: 4P Room: 4W7045-0 Type: ADM IN Attending Dr: Jaya Bae [...] to her around 11:00. She went to [facility] where a suspicion of acute coronary [...] Lymph # (Auto) 1.3 2.1 (1.00-4.8) x10E3/uL [place] # (Auto) 0.4 0.8 (0.0-0.8) x10E3/uL Eos [...] <Electronically signed by MD Gold Patrick> 01/03/22 1345 [facility] Work Phone: 1(409) 511-428210-22-2022 History and physical note Author Jaya Bae [facility] January 02, 2022 11:51pm Note Date/Time January 02, 2022 1 1:51pm [facility] [address] [place] [address] Hospitalist H&P Signed Patient: Cely Finch MR#: [id number] : 1940 Acct:[id number] Age/Sex: 81 / F Adm Date: 2 Loc: Room: [address] [place] [address] Type: ADM IN Attending Dr: Kyree Blair MD Copies to: MD Jonathon Smith MD Marwan Wassouf, MD~ HPI DATE OF EXAMINATION: 01/02/22 HISTORY OF PRESENT ILLNESS: This is a pleasant 81F with PMH of RA, Hypothyroidism who p/w fall to [facility] and transferred for the evaluation and treatment [...] elbowafter the fall. as per record form [place] ED she had one episode of nausea and vomited there. She denies any vision changes, weakness, loss of consciousness, slurred speech. no exacerbating or alleviating factors. no similar symptoms in the past. Her father at the age of 82 of RI. no historyof any CAD or stress tests. Review of Systems Review of Systems Review of systems: Ten Systems reviewed with the patient, all negative except what stated in the [facility] Vaccinated for COVID-19?: No Medical History (Updated [...] % (Auto) 15.9 % (.) 01/02/22 20:45 [place] % (Auto) 5.5 % (.) 01/02/22 20:45 Eos % (Auto) 0.1 % (.) 01/02/22 20:45 Baso % (Auto) 0.6 % (.) 01/02/22 20:45 Neut # (Auto) 6.3 x10E3/uL (1.8-7.7) 01/02/22 20:45 Lymph # (Auto) 1.3 x10E3/uL (1.00-4.8) 01/02/22 20:45 [place] # (Auto) 0.4 x10E3/uL (0.0-0.8) 01/02/22 20:45 [...] of RA, Hypothyroidism who p/w fall to [facility] ED and transferred for the evaluation and treatment of possible NSTEMI NSTEMI No chest pain now The patient presents with chest pain after a fall . Troponin is elevated She was given aspirin in the ambulance. Her EKG reported some ectopy (no EKG wassent with the patient) she supposed to be on heparin drip but she arrived not onany drip CXR ([facility]) reported as no acute cardiopulmonary abnormality EKG was ordered on arrival (i personally reviewed it) shows NSR@68 bpm no acute changes Nitroglycerin prn Morphine prn Telemetry Antiplatelet: Aspirin Anticoagulation: start Heparin Drip Beta kristal therapy Serial EKGs Repeat Troponin Lipid panel in am Echocardiogram Cardiology consult Mechanical Fall with right elbow laceration Right elbow XR ([facility]) reported as no Fx CT brain ([facility]) reported no acute intracranial process CT cervical spine without contrast ([facility]) reported DJD no acutebony injury Likely [...] <Electronically signed by Jaya Bae MD> 01/02/22 3742 [facility] Work Phone: 1(953) 133-175410-21-2022 NotePROCEDURE: XR ELBOW RT MIN 3 VIEWS COMPARISON: 09/02/2020 HISTORY: Falls FINDINGS: BONES:Remote traumatic injury of the distal humerus with internal fixation utilizing 2 plates and screws. Severe degenerative changes with pbdv-gb-jape articulation and marginal osteophyte formation. No definite acute fracture or dislocation SOFT TISSUES:Negative. No visible soft tissue swelling. EFFUSION:None visible. OTHER: Limited nonstandard, nonorthogonal projections IMPRESSION: No acute fracture Electronically authenticated by: BUD BROUSSARD Date: 2022-01-02 13:44[facility]10-21-2022 NotePROCEDURE: CT CSPINE WO CON COMPARISON: None. [...] Electronically authenticated by: BUD BROUSSARD Date: 2022-01-02 13:41[facility] Vandana Torres [facility] January 06, 2022 1:35pm Note Date/Time January 06, 2022 1 :31pm [facility] [address] [place] [address] Discharge Summary Signed Patient: Cely Finch MR#: [id number] : 1940 Acct:[id number] Age/Sex: 81 / F Adm Date: 2 Loc: Room: [address] [place] [address]: Vandana Torres MD Copies to: MD Vandaan Vicente MD~ Providers Date of Discharge: 01/06/22 [...] facility due to concern for non-ST elevated RI. She initially presented to ER after a fall leading to chest pain with diaphoresis. Her labs showed elevated troponin and was transferred to [facility] for further management. ED she remained [...] by cardiology. Patient has been accepted at [facility] for bypass surgery and transferred upon availability [...] Other Diet: Low-Fat and Low-Sodium Additional Instructions: [facility] to manage care: - Full code - [...] and as needed. DISCHARGE INSTRUCTIONS FOR CARDIAC IMMIGRATION CASE WORKER PHONE NUMBER OF YOUR PHYSICIAN: [phone] PROCEDURE: Heart Cath The following instructions have [...] cold, numb, blue or white, call the health worker immediately. 4. ACTIVITY: You are advised to [...] the instructions on the bottle. [facility] is not responsible for incorrect prescription [...] signed by Vandana Torres MD> 01/06/22 1335 [facility] Work Phone: Evaluation note* Diagnosis Onset Date Resolution Status Hypertension acute Hypothyroid acute Ischemic cardiomyopathy acut e NSTEMI (non-ST elevated myocardial infarction) acute Rheumatoid arthritis acute [facility] Work Phone: Evaluation note* Extremities: pitting LE [...] * Skin comment:Skin comment: Right SVG is TIP SCOURER Left groin site is SOPHIE Pt has generalized bruising. [facility] Work Phone: Evaluation note* Diagnosis Onset Date Resolution Status Bilateral carotid artery stenosis acute [facility] Work Phone: Evaluation note* Diagnosis Onset Date Resolution Status Occlusion and stenosis of bilateral carotid arteries acute [facility] Work Phone: History general Narrative - Reported* Type Description Date Medical History Hypertension Surgical History cholecystectomy 2012 Surgical History CABG 2021 Hospitalization History See Above [employer] Other History of Present illness [age]qcioq53 yo female here to establish care. Recently [...] s/p vein harvesting. No chest pain, SOB, palpitations.-[facility] [place] [address] DO Work Phone: History of Present illness Narrative* She is here for a new patient visit * She is here for follow-up after being admitted at [facility] after a mechanical fall andshe underwent a coronary artery bypass graft surgery. * She was seen also secondary to hyponatremia she has chronic hyponatremia per records with baseline sodium per the records of 04 12- * She was on urea packets, Lasix as needed and a sodium bicarbonate when she was in the hospital in [place] * In December a urine osmolality was [...] fluid intake with 6 cups per day. [facility] Work Phone: History of Present illness C[age]qkwvx27 yo female here for follow-up. She was recently participating in cardiac rehab as she is s/p CABGand was noted to have frequent PVCs during that time. She states she was asymptomatic during this episode. She was advised to f/u with cardiology. She was also seen by nephrology who is managing hyponatremia.[facility]-Zwwvhcjfrm-Ttirvzkg 250 DO Work Phone: Hospital Discharge instructionsAmbulatory Orders* DME Home Medical Equipment Time Frame: 1 Day, Location: Determined By Patient Additional Instructions [facility] to manage care: - Full code - [...] and as needed. DISCHARGE INSTRUCTIONS FOR CARDIAC IMMIGRATION CASE WORKER PHONE NUMBER OF YOUR PHYSICIAN: [phone] PROCEDURE: Heart Cath The following instructions have [...] cold, numb, blue or white, call the health worker immediately. 4. ACTIVITY: You are advised to [...] the instructions on the bottle. [facility] is not responsible for incorrect prescription information provided by the patient during their visit. Do not stop your medications without consulting your health care provider. Please take the list with you to your next doctor's appointment.[facility] Work Phone: Hospital Discharge instructions* Activity:Weight- bearing Instructions: weight-bearing as tolerated. Other activity instructions: As part of your recovery process you will be referred to cardiac rehab as an outpatient. After your discharge from the hospital and home recovery period, you will have your follow up visit with your health worker. They will clear you to exercise and further refer you to an outpatient cardiac rehab facility. Please call [facility] at [phone] to set up future appointments. * Labs 1 (Modify Template):Lab Test(s): Basic Metabolic Panel, CBC, MagnesiumDate To Be Drawn: Twice weekly on Mondays and while in fpc/ rehab * Oxygen:Other Instructions incentive spirometer 10x/ [...] obtained from the Primary Care Provider or Bible Reader. -For severe chest pain, extreme shortness of [...] of the previous wires. No NSAIDs (common rziw-vzq-nxgzyaz NSAIDs are ibuprofen/Motrin/Advil, naproxen/Naprosyn/Aleve) for 3 months after cardiac surgery; ifNSAIDs needed after 3 months, clear use with health worker before starting. * Wound Instructions:- Cleanse incisions with soap and water daily. No dressing, leave open to air. No lotions, creams or tub soaks/swimming until healed. * Call Provider If:- Redness, drainage or other problems with incisions, notify the Cardiac Surgeon'soffice. - Signs and symptoms of Heart Failure: call your Bible Reader if you have weight gain of 3 [...] Albin Champagne, cardiac surgeonScheduled Date/Time: 27-Feb-2022 12:00[facility] [phone]: 02/27at 12pm for chest xray in [facility] 5th floor radiology, then 1pm for appointment in [place] [address] * Follow Up Appointment 2:Physician/Dept/Service: Dr. Jonathon Kaur, PCPLocation: [facility]; [address], [place] [address]Mwyrd Number: [phone] * Follow Up Appointment 3:Physician/Dept/Service: Dr. Miri Hill, CardiologyReason for Referral: Heart Failure and General CardiologyScheduled Date/Time: 13-Feb-2022 11:15Location: [facility]; [address], [address] [address]Jrxal Number: [phone]: Please bring insurance information and photo ID * Follow Up Appointment 4:Physician/Dept/Service: Dr. Sivakumar Corbett, Vascular SurgeryReason for Referral: carotid stenosisScheduled Date/Time: 03-Apr-2022 09:15Location: [address], [address] [address]Lzwpc Number: [phone]: Please bring insurance information and photo ID * Follow Up Appointment 5:Physician/Dept/Service: Dr. Kvng Romo, NephrologyScheduled Date/Time: 17-Feb-2022 13:45Location: [address], [facility] [address] [address]Vfgyz Number: [phone]: Please bring insurance information and photo ID * IV Hydration:Type Of Vascular Access: Peripheral IVPeripheral IV #1 Insertion Date: [id number] IV #1 Location: left basilic vein (medial side of arm)Device #1: butterfly cathPeripheral IV #1 Gauge: 22 gauge * Safety:Siderails: noRestraints: noSitter: noFall Risk: dizziness, weakness * Incision 1:Location: MidsternumAppearance: WNLDressing: SOPHIE * Community Support:Support System: Family [facility] Summary Purpose Family History No Family History [...] DATE CREATED AUTHOR AUTHOR'S ORGANIZ ATION 02/11/2023 [facility] DATE CREATED AUTHOR AUTHOR'S ORGANIZ ATION 07/15/2023 [facility] EPIC DATE CREATED AUTHOR AUTHOR'S ORGANIZ ATION 11/04/2023 [facility] [place] DATE CREATED AUTHOR AUTHOR'S ORGANIZ ATION 12/08/2023 [facility] Care Teams (unrecognized sec [...] Guzman MD Other Provider Active Noelle Ramírez [facility] Other Provider Active Miri Hill MD [...] Physician: Dr. Miri Hill MDEnrollment sent to: TruliootarMonitor number [id number] applied.URGENT REF FOR RIGHT ICA GREATER THATN 70%, Abnormal carotid duplex2 WK FOLLOW UP; [facility] 04/08/22, Follow-up carotid stenosis Goals (unrecognized section [...] BE BASED ON THE PRIMARY CLINICAL RECORDS. [employer] provides no warranty or guarantee of the accuracy or completeness of information in this document.
[2024-01-04 22:14] VITALS: BP 172/66; PULSE 58; TEMP 36.4; O2SAT 95; BMI 22.6
[2024-01-04] MEDS: CARVEDILOL 12.5 MG TABLET PO (22:47)
[2024-01-04] MEDS: ATORVASTATIN CALCIUM 40 MG TABLET PO (22:47)
[2024-01-04 23:13] VITALS: O2SAT 95
[2024-01-05] VITALS (9 sets, daily range): BP systolic 113–202; BP diastolic 52–71; PULSE 50–60; TEMP 36.6; O2SAT 94–97
[2024-01-05] MEDS: ACETAMINOPHEN 500 MG TABLET 1000 MG PO ×3 (00:05→11:27)
[2024-01-05 06:17] LABS: Basophils Percent Auto 0.3 % (0.2-2.0); Eosinophils Absolute Auto 0.1 10^3/uL (0.0-0.7); Eosinophils Percent Auto 1.1 % (0.9-7.0); Hematocrit 36.8 % (36.0-48.0); Hemoglobin 12.2 g/dL (12.0-16.0); Immature Granulocytes Abs Auto 0.02 10^3/uL (0.00-0.03); Immature Granulocytes Pct Auto 0.3 % (0.0-0.5); Lymphocytes Absolute Auto 2.2 10^3/uL (1.2-3.8); Lymphocytes Percent Auto 29.2 % (20.5-60.0); Mean Corpuscular HGB Conc 33.2 g/dL (29.9-35.2); Mean Corpuscular Hemoglobin 29.3 pg (26.7-34.0); Mean Corpuscular Volume 88.5 fL (81.0-99.0); Mean Platelet Volume 10.5 fL (9.5-13.5); Monocytes Absolute Auto 0.6 10^3/uL (0.3-0.8); Monocytes Percent Auto 8.1 % (1.7-12.0); Neutrophils Absolute Auto 4.5 10^3/uL (1.4-6.5); Platelet Count 233 10^3/uL (150-450); Red Blood Count 4.16 10^6/uL (4.20-5.40); Red Cell Distribution Width 14.6 % (11.0-15.0); White Blood Count 7.4 10^3/uL (4.0-11.0)
[2024-01-05 06:38] LABS: Anion Gap 16.9; Calcium 8.9 mg/dL (8.5-10.1); Chloride 98 mmol/L (98-107); Estimated GFR (African America >60 (>=60 mL/min/1.73m^2); Estimated GFR (Non-African Ame 51 (>=60 mL/min/1.73m^2); Glucose 90 mg/dL (74-106); Magnesium 2.2 mg/dL (1.8-2.4); Potassium 3.9 mmol/L (3.5-5.1); Sodium 132 mmol/L (136-145)
[2024-01-05] MEDS: CALCITONIN,SALMON,SYNTHETIC 30 SPRAY/3.7 ML BOTTLE NS (09:02)
[2024-01-05] MEDS: SODIUM CHLORIDE 1,000 MG TABLET 1000 MG PO (09:03)
[2024-01-05] MEDS: ENOXAPARIN SODIUM 40 MG/0.4 ML SYRINGE SUBQ (09:03)
[2024-01-05] MEDS: LISINOPRIL 10 MG TABLET PO (09:03)
[2024-01-05] MEDS: CLOPIDOGREL BISULFATE 75 MG TABLET PO (09:03)
[2024-01-05] MEDS: CARVEDILOL 12.5 MG TABLET PO (09:03)
[2024-01-05] MEDS: AMLODIPINE BESYLATE 5 MG TABLET PO (09:03)
[2024-01-05] MEDS: OXYCODONE HCL 5 MG TABLET PO (09:04)
[2024-01-05] MEDS: HYDRALAZINE HCL 20 MG/ML VIAL 10 MG IVP (09:47)
--- NOTE | 2024-01-05 09:55 | CM.NOTE ---
Rounds made with Dr. Landeros, discussed with pt findings on x-ray from fall. Dr. Valdez will consult for further recommendations. Called central supply for back brace, do not carry any back braces at hospital. Updated Dr. Landeros about not carrying back braces, will await recommendations from Dr. Valdez and PT.
--- NOTE | 2024-01-05 10:02 | CM.NOTE ---
Medicare Outpatient Observation Notice discussed with pt, pt verbalizes understanding and signs paper. Original given to pt and copy placed on pt's chart.
--- NOTE | 2024-01-05 10:12 | P.HP_ITS ---
HPI H&P: HPI History of Present Illness Chief complaint: Ankle Sprain,Fx-transverse process of lumbar veteb Narrative: HPI and Hospital Course: 83 y o f was working in her yard when she lost her footing and fell on her right side. She was able to get up and walk afterwards. Her daughter brought her to ED for a check up after fall as she is on ASA and Plavix. Patient denies head trauma, LOC. She is reporting right sided low back pain, hip pain. Work up in ED revealed minimally displaced transverse process fx at L1 and multilevel degenerative changes of lumbar spine on CT. Patient denies any weakness/numbness or radicular symptoms and denies urinary or fecal incontinence. Her pain is reasonably controlled. Her BP upon arrival was poorly controlled and elevated likely due to Pain and is now relatively better once her oral medications were resumed. Patient denies CP, SOB, palpitations. Orthopedic surgery was consulted and their recommendation was conservative/supportive care. Patient was evaluated by PT and was able to ambulate safely. She will benefit from outpatient PT for Back pain. She has no needs otherwise. Given her hx of RA, intermittent prednisone use and pathological fx, she most likely has osteoporosis for which I recommended outpatient DEXA scan and treatment for it. Patient is medically stable for discharge. I will also call in oral percocet as needed for short term pain control. Opioid HPI Opioid Management Most Recent Pain and Opioid Data: Last Pain Scale 0 01/05/24 11:27 01/05/24 Last Pain Assessment 01/05/24 11:22 Last MAR Pain Assessment 01/05/24 11:27 Last ORT Total Score 0 01/04/24 22:20 01/04/24 Last ORT Risk Category Low Risk 01/04/24 22:20 01/04/24 Review of Systems ROS Status of ROS 10 or more systems reviewed and unremark able except as noted in history and below [facility] Medical History (Updated 01/05/24 @ 10:23 by Shaikh Leti MD) Rheumatoid arthritis ?M06.9 - Rheumatoid arthritis, unspecified (ICD-10) HLD (hyperlipidemia) ?E78.5 - Hyperlipidemia, unspecified (ICD-10) Hypertension ?I10 - Essential (primary) hypertension (ICD-10) Hypertension ?I10 - Essential (primary) hypertension (ICD-10) Coronary artery disease ?I25.10 - Atherosclerotic heart disease of [place] coronary artery without angina pectoris (ICD-10) Hyponatremia ?E87.1 - Hypo-osmolality and hyponatremia (ICD-10) Weakness ?R53.1 - Weakness (ICD-10) Surgical History (Updated 09/26/23 @ 15:17 by Lorraine Mallory) History of open heart surgery (~12/2021) ?Z98.890 - Other specified postprocedural states (ICD-10) Family History (Updated 01/04/24 @ 22:26 by Goldie Nieves RN) Father Family history of myocardial infarction Family history of hypertension Sister Family history of diabetes mellitus Brother Family history of hypertension Social History (Updated 01/04/24 @ 22:28 by Goldie Nieves RN) Within the past year, how often did you have a drink containing alcohol: never Score interpretation: A score less than 3 is consistent with normal alcohol consumption. Smoking status: Former smoker Non-prescribed substance use: denies use Known occupational exposures/hazards: No Highest level of school completed/degree received: high school graduate Are you now , , , , never or living with a partner: In a typical week, how many times do you talk on the telephone with family, friends, or neighbors: 3 or more times per week How often do you get together with friends or relatives: 3 or more times per week Little interest or pleasure in doing things: not at all Feeling down, depressed, or hopeless: not at all Feel stressed/tense/nervous/anxious/difficulty sleeping: not at all Do you think of yourself as: straight/heterosexual Gender Identity: female Meds Home Medications and Allergies Home Medications ?Medication ?Instructions ?Recorded ?Confirmed ?Type amlodipine 5 mg tablet 5 mg PO DAILY 06/19/23 01/04/24 History atorvastatin 80 mg tablet 40 mg PO .qhs 06/19/23 01/04/24 History clopidogrel 75 mg tablet 75 mg PO DAILY 06/19/23 01/04/24 History carvedilol 12.5 mg tablet 12.5 mg PO Q12H 09/26/23 01/04/24 History sodium chloride 1,000 mg soluble 1,000 mg PO BID 09/26/23 01/04/24 History tablet lisinopril 10 mg tablet 10 mg PO DAILY 01/04/24 01/04/24 History chlorthalidone 25 mg tablet 12.5 mg PO DAILY 01/05/24 01/05/24 History levothyroxine 88 mcg tablet 88 mcg PO .ACB 01/05/24 01/05/24 History Allergies Allergy/AdvReac Type Severity Reaction Status Date / Time No Known Drug Allergies Allergy Verified 06/19/23 10:51 Exam Constitutional Vital Signs, click to edit/add: Last Vital Signs Temp 97.8 F 01/05/24 09:39 Pulse 60 01/05/24 09:39 Resp 16 01/05/24 09:39 BP 172/62 H 01/05/24 09:39 Pulse Ox 96 01/05/24 09:39 O2 Del Method Room Air 01/05/24 09:39 Documenting provider has reviewed patient's vital signs: yes Common normals: no apparent distress and oriented x3 General appearance: cooperative HENMT Common normals: normocephalic and head/scalp atraumatic Head and scalp: normocephalic and atraumatic Respiratory Common normals: normal respiratory effort and clear to auscultation bilaterally Effort & inspection: able to speak in complete sentences Auscultation: clear to auscultation bilaterally Cardio Common normals: regular rate, S1 normal heart sound and S2 normal heart sound Rate: regular rate Heart sounds: S1 normal and S2 normal GI Common normals: Normal to inspection, nondistended, normoactive bowel sounds present, soft to palpation, non-tender and no hepatosplenomegaly Palpation: soft and no hepatosplenomegaly Back & Pelvis Common normals: no CVA tenderness and thoracic and lumbar spine normal to inspection Lumbar spine/lower back: normal to inspection, pain with ROM, lumbar spinal tenderness Lumbar spinal tenderness location: L4 and L5 and paraspinal muscle tenderness Lumbar paraspinal muscle tenderness: right Right lumbar paraspinal muscle tenderness: L4 and L5 Extremity Common normals: no clubbing, cyanosis or edema Neuro Common normals: oriented x3, moves all extremities and no focal motor deficits Psych Common normals: mental status grossly normal, denies hallucinations, denies homicidal ideation and denies suicidal ideation Results Labs Labs: Short CBC 01/04/24 01/05/24 Range/Units 21:40 05:55 WBC 7.7 7.4 (4.0-11.0) 10^3/uL Hgb 13.3 12.2 (12.0-16.0) g/dL Hct 39.6 36.8 (36.0-48.0) % Plt Count 254 233 (150-450) 10^3/uL BMP 01/04/24 01/05/24 21:40 05:55 Sodium 132 L 132 L Potassium 4.1 3.9 Chloride 98 98 Carbon Dioxide 19.6 L 21.0 BUN 25.0 H 26.0 H Creatinine 1.24 H 1.04 H Glucose 226 H 90 Calcium 9.7 8.9 Assessment and Plan Assessment and Plan (1) Fracture of transverse process of lumbar vertebra: Assessment and Plan: Pain well controlled. Conservative management. Outpatient f/u with Dr Valdez for it. Qualifiers: Encounter type: subsequent encounter Fracture healing: with routine healing Fracture type: closed Qualified Code(s): S32.009D - Unspecified fracture of unspecified lumbar vertebra, subsequent encounter for fracture with routine healing (2) Fall: Assessment and Plan: Mechanical fall. PT eval. Able to ambulate safely. Outpatient PT. Qualifiers: Encounter type: subsequent encounter Qualified Code(s): W19.XXXD - Unspecified fall, subsequent encounter (3) Contusion of hip: Assessment and Plan: Pain well controlled. Outpatient PT. Qualifiers: Encounter type: subsequent encounter Laterality: right Qualified Code(s): S70.01XD - Contusion of right hip, subsequent encounter (4) Degenerative disc disease, lumbar: Assessment and Plan: Chronic, No acute changes. PT as outpatient. Qualifiers: Disc-related pain type: discogenic back pain only Qualified Code(s): M51.360 - Other intervertebral disc degeneration, lumbar region with discogenic back pain only (5) Rheumatoid arthritis: Assessment and Plan: On Remicade infusion. F.u with rheumatology Qualifiers: Rheumatoid arthritis location: multiple sites Rheumatoid factor presence: with rheumatoid factor Qualified Code(s): M05.79 - Rheumatoid arthritis with rheumatoid factor of multiple sites without organ or systems involvement (6) Coronary artery disease: Assessment and Plan: Stable. Cw/ ASA, plavix and statin Qualifiers: Associated angina: without angina Coronary Disease-Associated Artery/Lesion type: [place] artery Lime vs. transplanted heart: ass[place] si[place] heart Qualified Code(s): I25.10 - Atherosclerotic heart disease of [place] coronary artery without angina pectoris (7) Hyponatremia: Assessment and Plan: on NACL. c/w same. D/c chlorthalidone (8) Hypertension: Assessment and Plan: Poorly controlled. Increase amlodipine to 10 mg. Lisinopril to 20 mg. Required IV hydralazine during the course of admisison Qualifiers: Hypertension type: primary hypertension Qualified Code(s): I10 - Essential (primary) hypertension (9) HLD (hyperlipidemia): Assessment and Plan: C/w statin Qualifiers: Hyperlipidemia type: unspecified Qualified Code(s): E78.5 - Hyperlipidemia, unspecified
[2024-01-05] MEDS: LEVOTHYROXINE SODIUM 88 MCG TABLET PO (10:37)
--- NOTE | 2024-01-05 13:10 | CM.NOTE ---
Discussed with pt discharge planning and PT recommendations for services. Pt at this time after talking with family has decided to do outpatient PT, outpatient order given to pt to set up appointment. Talked with Dr. Landeros, no back brace at this time after speaking with Dr. Valdez (phone conversation). Updated pt.
--- NOTE | 2024-01-05 13:21 | SWNOTE1 ---
HH was recommended for pt. Case management spoke to pt and she refused HH and she wants to do outpt.
--- NOTE | 2024-01-06 11:38 | CM.DCFOLLOWU ---
Person spoke with:patient How are you feeling?well How is your pain? comes and goes Did you understand your discharge instructions?yes Do you have any questions about your discharge instructions?no Were you given any prescriptions at discharge?yes Were you able to get your prescriptions filled?yes Do you understand how to take your medications as ordered?yes Do you have any questions about your follow up appointment and do you plan to keep your follow up appointment? no questions, follow up reviewed Is there anything else that you would like to discuss?no Questions/Comments/Concerns/Other:none
== END 2024-01-05 13:31 | disposition home or self-care (01) ==
LOC: ER 21:43 → MS 22:09
PROVIDERS: Registered Nurse; Admitting Provider Internal Medicine; Emergency Provider Emergency Medicine; Family Provider Internal Medicine Interventional Cardiology; PCP Family Medicine; Visit Provider Internal Medicine
DX: S32.019A Unspecified fracture of first lumbar vertebra, initial encounter for closed fracture (principal); S70.01XA Contusion of right hip, initial encounter; M51.360 Other intervertebral disc degeneration, lumbar region with discogenic back pain only; M05.79 Rheumatoid arthritis with rheumatoid factor of multiple sites without organ or systems involvement; I25.10 Atherosclerotic heart disease of native coronary artery without angina pectoris; E87.1 Hypo-osmolality and hyponatremia; I10 Essential (primary) hypertension; E78.5 Hyperlipidemia, unspecified; W01.10XA Fall on same level from slipping, tripping and stumbling with subsequent striking against unspecified object, initial encounter; Z79.899 Other long term (current) drug therapy; Z79.82 Long term (current) use of aspirin; Z79.02 Long term (current) use of antithrombotics/antiplatelets; Z87.891 Personal history of nicotine dependence
CPT/HCPCS: 36415; 72131; 73502; 73600; 73700; 80048; 83735; 85025; 93005; 94761; 96372; 96374; 97161; 99285; G0378; J0360; J1650; J1885; J2360

== ENCOUNTER 2024-05-12 09:32 | Outpatient (OUT) | payer MEDICARE, OTHER, SELFPAY ==
--- OUTSIDE RECORDS SUMMARY | 2024-05-12 09:39 | XMS_ITS | CCD ---
Author Organization [facility] ion Partnership [facility] Care Team Providers Care Epoxy Coatings Installer Name Role Phone PROVIDER, UNKNOWN Attending Unavailable PROVIDER, UNKNOWN Admitting Unavailable NO FAMILY, PHYSICIAN Primary Care Provider Unava ilable DIANA Harris Attending Provider MD Jonathon Kaur Primary Care Provider [phone] MD Kyree Blair Admit Provider PIPER Flanagan Other Provider Unavailable DO Tee Braun Other Provider [phone] MD Solitario Lucas Other Provider MD Felipe Cabezas Other Provider MD Gold Patrick Other Provider MD Nikolai Egan Other Provider ZAC York Other Provider MD Jillian Hernandez Other Provider MD Jono Jenkins Other Provider MD Wilmer Guzman Other Provider GRISELDA Ramírez- Noelle Box Other Provider [phone] MD Miri Hill Other Provider [phone] MD Vandana Torres Attending Provider [phone] Unknown, Pcp Unavailable Unavailable Abu-Christian Albin Unavailable Unavailable Cardiac Surgery Unavailable Unavailable Rusty Dejesus Unavailable Miri Hill Unavailable Unavailable Sivakumar Corbett Unavailable Unavailable Kvng Romo Unavailable Jonathon Kaur Unavailable Unavailable Unavailable MD Jonathon Kaur Primary Care Provider MD Kyree Blair Admit Provider [phone] PIPER Flanagan Other Provider Unavailable DO Tee Braun Other Provider MD Solitario Lucas Other Provider [phone] MD Felipe Cabezas Other Provider [phone] MD Gold Patrick Other Provider [phone] MD Nikolai Egan Other Provider ZAC York Other Provider MD Jillian Hernandez Other Provider MD Jono Jenkins Najerrell Other Provider MD Wilmer Guzman Other Provider Desiree [facility]- Noelle Box Other Provider MD Miri Hill Other Provider MD Vandana Torres Attending Provider DO Kvng Romo Attending Provider MEME Harris-Keira Box Attending Provider Blake Zhao Unavailable NATASHA, DR JONATHON Shaffer Admitting Unavailable NADERER, DR JONATHON Shaffer Attending Unavailable NADERER, DR JONATHON Shaffer Consulting Unavailable NADERER, DR JONATHON Shaffer Primary Care Unavailable MIS, DR BONILLA Attending Unavailable MISC, DR BONILLA Consulting Unavailable NADEREKeagan, DR JONATHON Shaffer Primary Care Unavailable MISC, DR BONILLA Admitting Unavailable ELTAHAWY, DR SERNA Consulting Unavailable NADERER, DR JONATHON Shaffer Primary Care Unavailable NADERER, DR JONATHON Shaffer Admitting Unavailable NADERER, DR JONATHON Shaffer Attending Unavailable NADERER, DR JONATHON Shaffer Consulting Unavailable JACKSON, DR BUSCH Consulting Unavailable MILLVILLE, DR BUD Hogan Consulting Unavailable NADERER, DR JONATHON Shaffer Primary Care Unavailable JEREL ., JAMES Admitting Unavailable JEREL ., JAMES Attending Unavailable JEREL ., JAMES Consulting Unavailable ALANIS, IRON Consulting Unavailable MISC, DR BONILLA Consulting Unavailable MISC, DR BONILLA Admitting Unavailable NADERER, DR JONATHON Shaffer Primary Care Unavailable MISC, DR BONILLA Attending Unavailable NADERER, DR JONATHON Shaffer Admitting Unavailable NADERER, DR JONATHON Shaffer Attending Unavailable NADERER, DR JONATHON Shaffer Consulting Unavailable NADERER, DR JONATHON Shaffer Primary Care Unavailable Natasha, MD Holt Primary Care Provider [phone] MD Blake Zhao Attending Provider [phone] DIANA Harris Attending Provider Sergio, Dr. Chery Attending Unavailable Fidone, Dr. Chery Referring Unavailable Naderer, Dr. Jonathon Tan Primary Care Unavai lable Fidone, Dr. Chery Attending Unavailable ABU-CHRISTIAN, ALBIN Referring Unavailable UNKNOWN, PCP Primary Care Unavailable Young, Dr. Kvng Busch Attending Unavail able ABU-CHRISTIAN, ALBIN Referring Unavailable Naderer, Dr. Jonahton Tan Primary Care Unavai lable Min M.D., [...] Care MD Jonathon Sutton Primary Care Provider [phone] MD Blake Zhao Attending Provider DIANA Harris Attending Provider MD Jonathon Kaur Primary Care Provider [phone] DIANA Harris Attending Provider MD Blake Zhao Attending Provider [phone] ELTAHAWY, EHAB Attending Unavailable ELTAHAWY, EHAB Attending Unavailable ELTAHAWY, EHAB Attending Unavailable ELTAHAWY, EHAB Attending Unavailable Jonathon Kaur MD Primary Care Provider [phone] Unavailable Primary Care Provider UnavailMD Jonathon Casarez Primary Care Provider MD Rakan Jackson Attending Provider JONATHON KAUR Attending Unavailable NATASHA, JONATHON Attending Unavailable NATASHA, JONATHON Attending Unavailable SHAIKH LANDEROS Referring Unavailable PALOMA MAXWELL Attending Unavailable LORRAINE CHURCH Attending Unavailable SHAIKH LANDEROS Referring Unavailable Jonathon Kaur MD Primary Care Provider Rakan Jackson MD Attending Provider Obermeyer TAIL PULLER-C, Brianda Box Attending Provider Obermeyer, Brianda L Admitting Unavailable Obermeyer, Brianda L Attending Unavailable Natasha, Jonathon Primary Care Unavailable Obermeyer, Brianda L Admitting Unavailable Obermeyer, Brianda L Attending Unavailable Natasha, Jonathon Primary Care Unavailable Rakan Jackson Admitting Unavailable Rakan Jackson Attending Unavailable Natasha, Jonathon Primary Care Unavailable Obermeyer, Brianda L Admitting Unavailable Obermeyer, Brianda L Attending Unavailable Natasha, Jonathon Primary Care Unavailable Natasha, Jonathon Primary Care Unavailable Blake Zhao Admitting Unavailable Blake Zhao Attending Unavailable Jonathon Kaur Primary Care Unavailable Blake Zhao Admitting Unavailable Blake Zhao Attending Unavailable Jonathon Kaur MD Primary Care Provider Allergies Allergy Classification Reported Allergen(s) Allergy Type Date of Onset Reaction(s) Facility (1 source) Chlorthalidone; Translations: [CHLORTHALIDONE] Drug Allergy 01-10-2024 [facility] Repository (1 source) Spironolactone; Translations: [SPIRONOLACTONE] Drug Allergy 01-10-2024 [facility] Repository Medications Current Medications Medication Drug Class(es) Dates Sig (Normalized) Sig (Original) acetaminophen 325 mg oral tablet (1 source) Start: 01-16-2022 take 2 tablets by mouth every six hours as needed acetaminophen 325 mg oral tablet ; 2 tab(s) orally every 6 hours, As Needed - for pain Quantity: 0 Refills: 0 Ordered: 16-Jan-2022 Rudyrenay Stephania Start: 16-Jan-2022 Generic Substitution Allowed amLODIPine 5 mg oral tablet (20 sources) Dihydropyridine Calcium Channel Kristal Start: 05-11-2024 take 1 tablet by mouth once daily amLODIPine (Norvasc) 5 MG tablet Indications: Essential (primary) hypertension (CMS/HCC) Take 1 tablet (5 mg) by mouth Daily 90 tablet 3 05/11/2024 Active Start: 05-11-2024 take 1 tablet by saturnino th once daily amLODIPine (Norvasc) 5 MG tablet Indications: Essential (primary) hypertension (CMS/HCC) Take 1 tablet (5 mg) by mouth Daily 90 tablet 3 05/11/2024 Active Start: 03-28-2024 End: 05-11-2024 take 1 tablet by mouth once daily amLODIPine (Norvasc) 10 MG tablet Indications: Essential (primary) hypertension (CMS/HCC) Take 1 tablet (10 mg) by mouth Daily 30 tablet 5 03/28/2024 05/11/2024 Discontinued (Reorder) Start: 05-25-2023 End: 03-28-2024 take 1 tablet by mouth once daily amLODIPine (Norvasc) 5 MG tablet Indications: Essential (primary) hypertension (CMS/HCC) TAKE 1 TABLET BY MOUTH DAILY 30 tablet 5 2024 03/28/2024 Discontinued (Reorder) Start: 05-25-2023 Amlodipine Act bryant MG PO May 25, 2023 12:00am ascorbic acid 100 mg oral tablet (1 source) Vitamin C take 1 tablet by mouth once daily Vitamin C 100 mg oral tablet ; 1 tab(s) orally once a day Quantity: 0 Refills: 0 Ordered: 08-Jan-2022 Gerity, Sammie Generic Substitution Allowed aspirin 81 mg delayed release oral tablet (10 sources) Platelet Aggregation Inhibitor, Nonsteroidal Anti-inflammatory Drug Start: 01-17-20 take 1 tablet by mouth once daily Aspirin Enteric Coated 81 mg oral delayed release tablet ; 1 tab(s) orally once a day Quantity: 0 Refills: 0 Ordered: 16-Jan-2022 RudyrenayStephania Start: 16-Jan-2022 Generic Substitution Allowed atorvastatin 80 mg oral tablet (20 sources) HMG-CoA Reductase Inhibitor Start: 02-14-20 take 0.5 tablet by mouth at bedtime atorvastatin (Lipitor) 80 MG tablet Indications: Hyperlipidemia, unspecified (CMS/HCC) TAKE 1/2 (ONE-HALF) OF A TABLET BY MOUTH AT BEDTIME 15 tablet 5 2024 Active Start: 08-13-2023 take 0.5 tablet by m outh at bedtime atorvastatin (Lipitor) 80 MG tablet Indications: Hyperlipidemia, unspecified (CMS/HCC) TAKE 1/2 (ONE-HALF) OF A TABLET BY MOUTH AT BEDTIME 15 tablet 5 08/13/2023 Active Start: 05-25-2023 Atorvastatin 8 0 mg tablet Active MG PO May 24, 2023 11:00pm Start: 05-25-2023 Atorvastatin A ctive MG PO May 25, 2023 12:00am Start: [...] 0 Refills: 0 Ordered: 27-Mar-2022 DO Active carvedilol 12.5 mg oral tablet (11 sources) alpha-Adrenergic Kristal, beta-Adrenergic Kristal take 2 tablets by mouth in the morning carvedilol (Coreg) 12.5 MG tablet Take 25 mg by mouth in the morning and 25 mg in the evening. Take with meals. Active take 1 tablet by mouth in the mo rning carvedilol (Coreg) 12.5 MG tablet Take 12.5 mg by mouth in the morning and 12.5 mg in the evening. Take with meals. 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) TAKE 1 TABLET BY MOUTH DAILY 30 tablet 5 2024 Active Start: 05-25-2023 Clopidogrel Ac tive MG PO May 25, 2023 12:00am Start: [...] Status: Discontinued Generic Substitution Allowed levothyroxine sodium 0.088 mg oral tablet (20 sources) l-Thyroxine Start: 2023 take 1 tablet by mouth once daily levothyroxine (Synthroid, Levoxyl) 88 MCG tablet Indications: Adult hypothyroidism (CMS/HCC) TAKE 1 TABLET BY MOUTH DAILY 30 tablet 5 2024 Active Start: 10-07-2023 take 1 tablet by saturnino th once daily levothyroxine (Synthroid, Levoxyl) 88 MCG tablet Indications: Adult hypothyroidism (CMS/HCC) Take 1 tablet (88 mcg) by mouth Daily 30 tablet 5 10/07/2023 Active Start: 01-02-2022 take 1 tablet by saturnino th once daily Levothyroxine 100 mcg tablet Active 100 MCG PO Daily January 01, 2022 11:00pm take 1 tablet by saturnino th once daily levothyroxine 100 mcg (0.1 mg) oral tablet ; 1 tab(s) orally once a day Quantity: 0 Refills: 0 Ordered: 08-Jan-2022 Sammie Tena Generic Substitution Allowed lisinopril 10 mg oral tablet (20 sources) Angiotensin Converting Enzyme Inhibitor Start: 01-24-2024 take 1 tablet by mouth once daily lisinopril 10 MG tablet Indications: Essential hypertension, benign (CMS/HCC) TAKE 1 TABLET BY MOUTH DAILY 30 tablet 3 01/24/2024 Active Start: 10-07-2023 take 1 tablet by saturnino th once daily lisinopril 10 MG tablet Indications: Essential hypertension, benign (CMS/HCC) Take 1 tablet (10 mg) by mouth Daily 30 tablet 3 10/07/2023 Active Start: 02-25-2022 take 1 tablet by saturnino th once daily Lisinopril 5 MG Oral Tablet [...] Generic Substitution Allowed Start: 01-02-2022 End: 05-25-2023 Lisinopril 20 mg Tablet Disc ontinued 25 MG PO Daily January 01, 2022 11:00pm May 25, 2023 11:48am Start: 01-02-2022 End: 05-25-2023 take 25 mg by mouth once daily Lisinopril Discontinued 25 MG PO Daily January 02, 2022 12:00am May 25, 2023 12:48pm take 1 tablet by saturnino th once daily lisinopril 40 mg oral tablet ; 1 tab(s) orally once a day Quantity: 0 Refills: 0 Ordered: 08-Jan-2022 Sammie Tena Status: Discontinued Generic Substitution Allowed meclizine hydrochloride 12.5 mg oral tablet (4 sources) Antiemetic Start: 09-27-2023 End: 01-12-2024 take 1 tablet by mouth every six hours as needed meclizine (Antivert) 12.5 MG tablet Take 12.5 mg by mouth every 6 (six) hours if needed 09/27/2023 01/12/2024 Discontinued methylPREDNISolone 4 mg oral tablet (1 source) Corticosteroid methylPREDNISolo ne 4 mg oral tablet ; take as directed on the package Quantity: 0 Refills: 0 Ordered: 08-Jan-2022 Mallika Sammie Status: Discontinued Generic Substitution Allowed 24 hr metoprolol succinate 25 mg extended release oral tablet (16 sources) beta-Adrenergic Kristal Start: 05-25-2023 take 1 tablet by mouth every twenty-fou r hours Metoprolol Succinate 25 mg tablet extended release 24 hr Active MG PO May 24, 2023 11:00pm Start: 05-25-2023 Metoprolol Suc cinate Active MG PO May 25, 2023 12:00am [...] 16-Jan-2022 Generic Substitution Allowed polyethylene glycol 3350 85113 mg powder for oral solution (1 source) Osmotic Laxative Start: 01-16-2022 polyethylene glycol 3350 oral powder for reconstitution ; 17 gram(s) orally once a day, As Needed - for constipation. May buy over the counter. Quantity: 0 Refills: 0 Ordered: 16-Jan-2022 Stephania Kim Start: 16-Jan-2022 Generic Substitution Allowed predniSONE 5 mg oral tablet (6 sources) Start: 05-25-2023 Prednisone 5 m g tablet Active MG PO May 24, 2023 11:00pm Start: 05-25-2023 Prednisone Act bryant MG PO May 25, 2023 12:00am sodium chloride 1000 mg oral tablet (20 sources) Start: 08-25-2023 End: 08-24-2024 take 1 tablet by mouth at bedtime sodium chloride 1 g tablet Indications: Encounter for long-term (current) use of medications Take 1 tablet (1 g) by mouth in the morning and 1 tablet (1 g) before bedtime. 60 tablet 11 08/25/2023 08/24/2024 Active Start: 05-25-2023 take 1 tablet by saturnino th once daily as needed Sodium Chloride 1,000 mg tablet,soluble Active 1000 MG PO Daily as needed May 24, 2023 11:00pm Start: 02-17-2022 take 1 tablet by saturnino [...] (1 source) take 1 tablet by saturnino once daily zinc sulfate 66 mg oral [...] Start: 01-16-2022 take 1 capsule by mo [facility] twice daily as needed docusate sodium 100 [...] Active 4 ml golimumab 12.5 mg/ml injection (10 sources) Tumor Necrosis Factor Kristal Start: 01-02-2022 End: 05-25-2023 Golimumab (Simponi Aria) 12.5 mg/mL Solution Discontinued 125 MG IV EVERY 8 WEEKS January 01, 2022 11:00pm May 25, 2023 11:47am administer over 30 mins heparin sodium, porcine 5000 unt/ml injectable solution (20 sources) Unfractionated Heparin, Anti-coagulant Start: 01-06-2022 End: 05-25-2023 take 5000 [IU] intravenously once as needed Heparin (Porcine) 5,000 unit/mL Solution Discontinued 2400 UNIT IV-PUSH Per protocol as needed for PTT 40-53 January 05, 2022 11:00pm May 25, 2023 11:47am Start: 01-06-2022 End: 05-25-2023 take 5000 [IU] intravenously once as needed Heparin (Porcine) 5,000 unit/mL Solution Discontinued 4000 UNIT IV-PUSH Per protocol as needed for PTT January 05, 2022 11:00pm May 25, 2023 11:47am Start: 01-06-2022 End: 05-25-2023 Heparin(Porcine) In 0.45% Na cl 25,000 unit/250 mL Parenteral Solution Discontinued 66140 UNIT IV .Q24H January 05, 2022 11:00pm May 25, 2023 11:47am Start: 01-06-2022 End: 05-25-2023 take 2400 [IU] intravenously once Heparin (Porcine) Di scontinued 2400 UNIT IV-PUSH Per protocol January 06, 2022 12:00am May 25, 2023 12:47pm Start: 01-06-2022 End: 05-25-2023 take 4000 [IU] intravenously once Heparin (Porcine) Di scontinued 4000 UNIT IV-PUSH Per protocol January 06, 2022 12:00am May 25, 2023 12:47pm polysaccharide iron complex 150 mg oral capsule (4 sources) Start: 02-03-2022 take 1 capsule by mouth once daily IFerex 150 150 MG Oral Capsule TAKE 1 CAPSULE BY MOUTH DAILY Quantity: 30 Refills: 0 Ordered: 04-Feb-2022 DO Start : 03-Feb-2022 Active Start: 01-27-2022 take 1 capsule by mo [facility] once daily iron polysaccharide (as elemental iron) [...] Active Start: 01-27-2022 take 1 tablet by [facility] twice daily sodium bicarbonate 650 mg oral tablet ; 1 tab(s) orally 2 times a day Quantity: 0 Refills: 0 Ordered: 27-Jan-2022 Stephania Kim Start: 27-Jan-2022 Generic Substitution Allowed Problems Active Problems Problem Classification Problem Date Documented Date Episodic/Chronic Acute myocardial infarction (16 sources) Myocardial infarction; Translations: [Non-ST elevation (NSTEMI) myocardial infarction] Onset: 01-06-2022 01-02-2022 Chronic Comment on above: Problem List clean-u p per request of Phys. EHR Cmte Cardiac dysrhythmias (4 sources) Multiple premature ventricular complexes; Translations: [Other premature beats] Chronic Chronic kidney disease (13 sources) Chronic kidney disease stage 3A ; Translations: [Stage 3a chronic kidney disease (CKD)] Onset: 07-14-2023 07-14-2023 Chronic Coagulation and hemorrhagic disorders (1 source) Thrombocytopenic disorder; Translations: [Thrombocytopenia, unspecified] 01-09-2022 Chronic Conditions associated with dizziness or vertigo (4 sources) Lightheadedness; Translations: [Dizziness and giddiness] Episodic Congestive heart failure; nonhypertensive (15 sources) Left heart failure; Translations: [Left heart failure] Onset: 01-12-2022 01-13-2022 Chronic Congestive heart failure; nonhypertensive (5 sources) Congestive heart failure; nonhypertensive 01-06-2022 Coronary atherosclerosis and other heart disease (20 sources) Ischemic myocardial dysfunction; Translations: [Ischemic cardiomyopathy] Onset: 01-13-2022 01-04-2022 Chronic Comment on above: Problem List clean-u p per request of Phys. EHR Cmte Deficiency and other anemia (1 source) Anemia due to blood loss; Translations: [Iron deficiency anemia secondary to blood loss (chronic)] 01-16-2022 Chronic Deficiency and other anemia (1 source) Deficiency and other anemia 01-16-2022 Disorders of lipid metabolism (14 sources) Hyperlipidemia, unspecified; Translations: [Dyslipidemia] Onset: 07-02-2022 07-14-2023 Chronic Essential hypertension (20 sources) Hypertensive disorder; Translations: [Essential (primary) hypertension] Onset: 06-26-2022 01-02-2022 Chronic Comment on above: Problem List clean-u p per request of Phys. EHR Cmte Hypertension with complications and secondary hypertension (4 sources) Hypertensive heart disease with heart failure; Translations: [Hypertensive heart disease without heart failure] 01-06-2022 Chronic Occlusion or stenosis of precerebral arteries (20 sources) Right carotid artery stenosis; Translations: [Occlusion and stenosis of right carotid artery] Onset: 12-06-2023 Chronic Osteoarthritis (1 source) Primary generalized (osteo)arthritis; Translations: [PRIMARY GENERALIZED OSTEOARTHRITIS] Onset: 08-27-2021 Chronic Other aftercare (1 source) Anticoagulant control - finding; Translations: [Long-term (current) use of anticoagulants] 01-09-2022 Episodic Other aftercare (5 sources) Other superintendent container terminal (current) drug therapy; Translations: [OTH JUVENILE PROBATION OFFICER CURRENT DRUG THERAPY] Onset: 03-11-2022 Episodic Other aftercare (12 sources) Long-term current use of drug therapy; Translations: [Other senior care (current) drug therapy] Onset: 07-14-2023 07-14-2023 Episodic Other circulatory disease (7 sources) Disorder [...] adult] Episodic Rheumatoid arthritis and related disease (20 sources) Rheumatoid arthritis; Translations: [Rheumatoid arthritis, unspecified] Onset: 08-25-2021 01-03-2022 Chronic Comment on above: Problem List clean-u p per request of Phys. EHR Cmte Screening and history of mental health and substance abuse codes (8 sources) Ex-smoker; Translations: [Personal history of tobacco use] Onset: 01-06-2022 Episodic Comment on above: 1 pack daily- Quit i n ; Spondylosis; intervertebral disc disorders; other back problems (2 sources) Acute low back pain; Translations: [Acute low back pain, unspecified back pain laterality, unspecified whether sciatica present] 01-12-2024 Episodic Thyroid disorders (20 sources) Hypothyroidism; Translations: [Hypothyroidism, unspecified] Onset: 07-02-2022 01-02-2022 Chronic Comment on above: Problem List clean-u p per request of Phys. EHR Cmte Unclassified (2 sources) 46917; CABG X2/3 PABLO VEIN; CAD 01-08-2022 Comment on above: [id number]; CABG X2/3 ESPINOZA A VEIN; CAD Unclassified [...] stenosis of bilateral carotid arteries] Onset: 05-25-2023 Past or Other Problems Problem Classification Problem Date Documented Da te Episodic/Chronic Coronary atherosclerosis and other heart disease (4 sources) Presence of aortocoronary bypass graft; Translations: [Presence of aortocoronary bypass graft] Onset: 02-27-2022 Episodic E Codes: Fall (1 source) Unspecified fall, initial encounter; Translations: [UNSPECIFIED FALL INITIAL ENCOUNTER] Onset: 01-06-2022 Episodic Fluid and electrolyte disorders (20 sources) Hyponatremia; Translations: [Hyposmolality and/or hyponatremia] Onset: 04-03-2022 01-16-2022 Episodic Immunizations and screening for infectious disease (1 source) Encounter for immunization; Translations: [ENCOUNTER FOR IMMUNIZATION] Onset: 01-06-2022 Episodic Mood disorders (2 sources) Mood disorders Onset: 05-11-2024 05-11-2024 Nonspecific chest pain (3 sources) Chest pain, unspecified; Translations: [CHEST PAIN UNSPECIFIED] Onset: 01-02-2022 Episodic Open wounds of extremities (1 source) Laceration without foreign body of right elbow, initial encounter; Translations: [LACERATION W/O FB RT ELBOW INITIAL] Onset: 01-06-2022 Episodic Other aftercare (1 source) Patient encounter status; Translations: [Other superintendent container terminal (current) drug therapy] Onset: 07-14-2023 07-14-2023 Episodic Other fractures (13 sources) Closed fracture lumbar vertebra, transverse process ; Translations: [Unspecified fracture of unspecified lumbar vertebra, subsequent encounter for fracture with routine healing] Onset: 01-12-2024 01-12-2024 Episodic Pleurisy; pneumothorax; pulmonary collapse (1 source) Atelectasis; Translations: [Atelectasis] Onset: 02-27-2022 Episodic Residual codes; unclassified (11 sources) Postmenopausal state; Translations: [Asymptomatic menopausal state] Onset: 01-12-2024 01-12-2024 Episodic Unclassified (1 source) CAD 01-08-2022 Comment on above: CAD Unclassified (1 source) Resistant hypertension; Translations: [Resistant hypertension] Onset: 10-18-2023 Results Test Name Value Interpretation Reference Range Facility Alanine aminotransferase [En zymatic activity/volume] in Serum or PlasmaOrdered By: Brianda Harris on 03-21-2024 ALT [Catalytic activity/Vol] Alanine aminotransferase [Enzymatic activity/volume] in Serum or Plasma [facility] Albumin [Mass/volume] in Ser um or Plasma by Bromocresol green (BCG) dye binding methoOrdered By: Brianda Harris on 03-21-2024 Albumin BCG dye [Mass/Vol] Albumin [Mass/volume] in Serum or Plasma by Bromocresol green (BCG) dye binding metho 3.5-5.7 [facility] Alkaline phosphatase [Enzyma tic activity/volume] in Serum or PlasmaOrdered By: Brianda Harris on 03-21-2024 ALP [Catalytic activity/Vol] Alkaline phosphatase [Enzymatic activity/volume] in Serum or Plasma 34-104 [facility] Aspartate aminotransferase [ Enzymatic activity/volume] in Serum or PlasmaOrdered By: Brianda Harris on 03-21-2024 AST [Catalytic activity/Vol] Aspartate aminotransferase [Enzymatic activity/volume] in Serum or Plasma 13-39 [facility] Basophils Auto (Bld) [#/Vol] Ordered By: Brianda Harris on 03-21-2024 Basophils (Bld) [#/Vol] Automated basophil count 0.0-0.2 [facility] Basophils/100 WBC Auto (Bld) Ordered By: Brianda Harris on 03-21-2024 Basophils/100 WBC (Bld) Automated basophil % . [facility] Bilirubin.total [Mass/volume ] in Serum or PlasmaOrdered By: Brianda Harris on 03-21-2024 Bilirubin [Mass/Vol] Bilirubin.total [Mass/volume] in Serum or Plasma 0.3-1.0 [facility] Calcium [Mass/volume] in Ser um or PlasmaOrdered By: Brianda Harris on 03-21-2024 Calcium [Mass/Vol] Calcium [Mass/volume ] in Serum or Plasma 8.6-10.3 [facility] Carbon dioxide, total [Moles /volume] in Serum or PlasmaOrdered By: Brianda Harris on 03-21-2024 CO2 [Moles/Vol] Carbon dioxide, tota l [Moles/volume] in Serum or Plasma 21.0-31.0 [facility] Chloride [Moles/volume] in S sarwat or PlasmaOrdered By: Brianda Harris on 03-21-2024 Chloride [Moles/Vol] Chloride [Moles/vol ume] in Serum or Plasma 98-107 [facility] Complete Blood Count Auto Di ffon 03-21-2024 Basophils (Bld) [#/Vol] 0.1 10*3/uL Normal 0.0-0.2 [facility] Group Comment on above: Performed By: #### C MP, ESR, CBC #### [facility] [address] [place] [address] [place] Basophils/100 WBC (Bld) 0.8 % Normal . [facility] Comment on above: Performed By: #### C MP, ESR, CBC #### [facility] [address] [place] [address] [place] Eosinophils (Bld) [#/Vol] 0.2 10*3/uL Normal 0.0-0.45 [facility] Comment on above: Performed By: #### C MP, ESR, CBC #### [address] Eosinophils/100 WBC (Bld) 2.2 % Normal . [facility] Comment on above: Performed By: #### C MP, ESR, CBC #### [address] Erythrocyte distribution width (RBC) [Ratio] 14.3 % Normal 11.9-15.3 [facility] Comment on above: Performed By: #### C MP, ESR, CBC #### [address] Hematocrit (Bld) [Volume fraction] 40.1 % Normal 34.0-46.4 [facility] Comment on above: Performed By: #### C MP, ESR, CBC #### [place] [address] [place] Hemoglobin (Bld) [Mass/Vol] 13.5 g/dL Normal 11.8-15.4 [facility] Comment on above: Performed By: #### C MP, ESR, CBC #### [place] [address] [place] Lymphocytes (Bld) [#/Vol] 1.5 10*3/uL Normal 1.00-4.8 [facility] Comment on above: Performed By: #### C MP, ESR, CBC #### [place] [address] [place] Lymphocytes/100 WBC (Bld) 18.8 % Normal . [facility] Comment on above: Performed By: #### C MP, ESR, CBC #### [address] MCH (RBC) [Entitic mass] 30.4 pg Normal 24.7-34.3 [facility] Comment on above: Performed By: #### C MP, ESR, CBC #### [address] MCV (RBC) [Entitic vol] 90.2 fL Normal 80-100 [facility] Comment on above: Performed By: #### C MP, ESR, CBC #### [address] Mean Corpuscular HGB Conc 33.7 g/dL Normal 32.0-35.0 [facility] Comment on above: Performed By: #### C MP, ESR, CBC #### [address] Monocytes (Bld) [#/Vol] 0.8 10*3/uL Normal 0.0-0.8 [facility] Comment on above: Performed By: #### C MP, ESR, CBC #### [address] Monocytes/100 WBC (Bld) 10.3 % Normal . [facility] Comment on above: Performed By: #### C MP, ESR, CBC #### [address] Neutrophils (Bld) [#/Vol] 5.5 10*3/uL Normal 1.8-7.7 [facility] Comment on above: Performed By: #### C MP, ESR, CBC #### [address] Neutrophils/100 WBC (Bld) 67.9 % Normal . [facility] Comment on above: Performed By: #### C MP, ESR, CBC #### [address] NRBC% 0.1 /100{WBC} Normal 0-0.5 [facility] Comment on above: Performed By: #### C MP, ESR, CBC #### [address] Platelet mean volume (Bld) [Entitic vol] 9.4 fL Normal 6.3-10.7 [facility] Comment on above: Performed By: #### C MP, ESR, CBC #### [address] Platelets (Bld) [#/Vol] 254 10*3/uL Normal 150-450 [facility] Comment on above: Performed By: #### C MP, ESR, CBC #### [address] RBC (Bld) [#/Vol] 4.45 10*6/uL Normal 3.60-5.00 [facility] Comment on above: Performed By: #### C MP, ESR, CBC #### [address] WBC (Bld) [#/Vol] 8.1 10*3/uL Normal 3.8-11.6 [facility] Comment on above: Performed By: #### C MP, ESR, CBC #### [address] Comprehensive Metabolic Pane radha 03-21-2024 Albumin [Mass/Vol] 4.0 g/dL Normal 3.5-5.7 [facility] Comment on above: Performed By: #### C MP, ESR, CBC #### [address] Albumin/Globulin [Mass ratio] 1.3 {ratio} Normal [facility] Comment on above: Performed By: #### C MP, ESR, CBC #### [address] ALP [Catalytic activity/Vol] 55 U/L Normal 34-104 [facility] Comment on above: Result Comment: PERF ORMED BY: [place] [address] PATHOLOGIST [employer]IT[employer] BRIAN BARROW M.D. Performed By: #### C MP, ESR, CBC #### [facility] [address] [place] [id number] [facility] ALT [Catalytic activity/Vol] 14 U/L Normal 7-52 [facility] Comment on above: Performed By: #### C MP, ESR, CBC #### [facility] [address] [place] [id number] [facility] Anion gap [Moles/Vol] 10.8 mmol/L Normal 6.0-15.0 [facility] Comment on above: Performed By: #### C MP, ESR, CBC #### [facility] [address] AST [Catalytic activity/Vol] 23 U/L Normal 13-39 [facility] Comment on above: Performed By: #### C MP, ESR, CBC #### [facility] [address] [place] [address] [place] Bilirubin [Mass/Vol] 0.3 mg/dL Normal 0.3-1.0 [facility] Comment on above: Performed By: #### C MP, ESR, CBC #### [facility] [address] [place] [address] [place] Calcium [Mass/Vol] 9.5 mg/dL Normal 8.6-10.3 [facility] Comment on above: Performed By: #### C MP, ESR, CBC #### [facility] [address] [place] [address] [place] Chloride [Moles/Vol] 102 mmol/L Normal 98-107 [facility] Comment on above: Performed By: #### C MP, ESR, CBC #### [facility] [address] [place] [id number] [place] CO2 [Moles/Vol] 24.5 mmol/L Normal 21.0-31.0 [facility] Comment on above: Performed By: #### C MP, ESR, CBC #### [facility] [address] [place] [id number] [facility] Creatinine [Mass/Vol] 0.89 mg/dL Normal 0.60-1.20 [facility] Comment on above: Performed By: #### C MP, ESR, CBC #### [facility] [address] [place] [address] [place] GFR/1.73 sq M.predicted MDRD (S/P/Bld) [Vol rate/Area] mL/min/{1.73_m2} Normal [facility] Comment on above: Performed By: #### C MP, ESR, CBC #### [facility] [address] [place] [address] [place] Globulin (S) [Mass/Vol] 3.1 g/dL Normal [facility] Comment on above: Performed By: #### C MP, ESR, CBC #### [facility] [address] Glucose [Mass/Vol] 84 mg/dL Normal 70-100 [facility] Comment on above: Result Comment: [facility] Glucose Reference Range is dependent on time and content of last meal. Glucose of more than 200 mg/dL in a nonstressed, ambulatory subject supports the diagnosis of Diabetes Mellitus. ADA recommended reference range Performed By: #### C MP, ESR, CBC #### [facility] [address] Potassium [Moles/Vol] 4.3 mmol/L Normal 3.5-5.1 [facility] Comment on above: Performed By: #### C MP, ESR, CBC #### [facility] [address] Protein [Mass/Vol] 7.1 g/dL Normal 6.4-8.9 [facility] Comment on above: Performed By: #### C MP, ESR, CBC #### [facility] [address] [place] [address] [place] Sodium [Moles/Vol] 133 mmol/L Low 136-145 [facility] Comment on above: Performed By: #### C MP, ESR, CBC #### [facility] [address] Urea nitrogen [Mass/Vol] 21 mg/dL Normal 7-25 [facility] Comment on above: Performed By: #### C MP, ESR, CBC #### [facility] [address] [place] [id number] [facility] Creatinine [Mass/volume] in Serum or PlasmaOrdered By: Brianda Harris on 03-21-2024 Creatinine [Mass/Vol] Creatinine [Mass/v olume] in Serum or Plasma 0.60-1.20 [facility] Eosinophils Auto (Bld) [#/Vo l]Ordered By: Brianda Harris on 03-21-2024 Eosinophils (Bld) [#/Vol] Automated eosinophil count 0.0-0.45 [facility] Eosinophils/100 WBC Auto (Bl d)Ordered By: Brianda Harris on 03-21-2024 Eosinophils/100 WBC (Bld) Automated eosinophil % . [facility] Erythrocyte Sedimentation Ra moose 03-21-2024 ESR (Bld) [Velocity] 54 mm/h High 0-29 [facility] Comment on above: Result Comment: PERF ORMED BY: [address] [place] [address] PATHOLOGIST [employer] BRIAN BARROW M.D. Performed By: #### C BC, CMP, ESR #### [facility] [address] [place] [address] Erythrocyte distribution wid th Auto (RBC) [Ratio]Ordered By: Brianda Harris on 03-21-2024 Erythrocyte distribution width (RBC) [Ratio] Erythrocyte distribution width [Ratio] by Automated count 11.9-15.3 [facility] Erythrocyte sedimentation ra te by Photometric methodOrdered By: Brianda Harris on 03-21-2024 ESR Photometric method (Bld) [Velocity] Erythrocyte sedimentation rate by Photometric method High 0-29 [facility] Globulin Calc (S) [Mass/Vol] Ordered By: Brianda Harris on 03-21-2024 Globulin (S) [Mass/Vol] Serum globulin measurement by calculation (mass/volume) [facility] Glucose [Mass/volume] in Ser um or PlasmaOrdered By: Brianda Harris on 03-21-2024 Glucose [Mass/Vol] Glucose [Mass/volume ] in Serum or Plasma 70-100 [facility] Comment on above: ADA recommended refe rence rangeRandom Glucose Reference Range is dependent on time and content of last meal. Glucose of more than 200 mg/dL in a nonstressed, ambulatory subject supports the diagnosis of Diabetes Mellitus. Hematocrit Auto (Bld) [Volum e fraction]Ordered By: Brianda Harris on 03-21-2024 Hematocrit (Bld) [Volume fraction] Hematocrit [Volume Fraction] of Blood by Automated count 34.0-46.4 [facility] Hemoglobin [Mass/volume] in BloodOrdered By: Brianda Harris on 03-21-2024 Hemoglobin (Bld) [Mass/Vol] Hemoglobin [Mass/volume] in Blood 11.8-15.4 [facility] Leukocytes [#/volume] correc abena for nucleated erythrocytes in Blood by Automated counOrdered By: Brianda Harris on 03-21-2024 WBC corrected for nucl RBC Auto (Bld) [#/Vol] Leukocytes [#/volume] corrected for nucleated erythrocytes in Blood by Automated coun 3.8-11.6 [facility] Lymphocytes Auto (Bld) [#/Vo l]Ordered By: Brianda Harris on 03-21-2024 Lymphocytes (Bld) [#/Vol] Lymphocytes [#/volume] in Blood by Automated count 1.00-4.8 [facility] Lymphocytes/100 WBC Auto (Bl d)Ordered By: Brianda Harris on 03-21-2024 Lymphocytes/100 WBC (Bld) Lymphocytes/100 leukocytes in Blood by Automated count . [facility] MCH Auto (RBC) [Entitic mass ]Ordered By: Brianda Harris on 03-21-2024 MCH (RBC) [Entitic mass] MCH [Entitic mass] by Automated count 24.7-34.3 [facility] MCHC Auto (RBC) [Mass/Vol]Or dered By: Brianda Harris on 03-21-2024 MCHC (RBC) [Mass/Vol] MCHC [Mass/volume] by Automated count 32.0-35.0 [facility] MCV Auto (RBC) [Entitic vol] Ordered By: Brianda Harris on 03-21-2024 MCV (RBC) [Entitic vol] MCV [Entitic volume] by Automated count 80-100 [facility] Monocytes Auto (Bld) [#/Vol] Ordered By: Brianda Harris on 03-21-2024 Monocytes (Bld) [#/Vol] Automated blood monocyte count 0.0-0.8 [facility] Monocytes/100 WBC Auto (Bld) Ordered By: Brianda Harris on 03-21-2024 Monocytes/100 WBC (Bld) Automated monocyte % . [facility] Neutrophils Auto (Bld) [#/Vo l]Ordered By: Brianda Harris on 03-21-2024 Neutrophils (Bld) [#/Vol] Neutrophils [#/volume] in Blood by Automated count 1.8-7.7 [facility] Neutrophils/100 WBC Auto (Bl d)Ordered By: Brianda Harris on 03-21-2024 Neutrophils/100 WBC (Bld) Automated neutrophil % . [facility] No Panel InformationOrdered By: Brianda Harris on 03-21-2024 Estimated GFR (CKD-EPI) > 60.0 mL/Min [facility] Creatinine Clearance (Chem N/A [facility] Nucleated erythrocytes [Pres ence] in Blood by Automated countOrdered By: Brianda Harris on 03-21-2024 Nucleated RBC Auto Ql (Bld) Nucleated erythrocytes [Presence] in Blood by Automated count 0-0.5 [facility] Platelet mean volume Auto (B ld) [Entitic vol]Ordered By: Brianda Harris on 03-21-2024 Platelet mean volume (Bld) [Entitic vol] Platelet mean volume [Entitic volume] in Blood by Automated count 6.3-10.7 [facility] Platelets Auto (Bld) [#/Vol] Ordered By: Brianda Harris on 03-21-2024 Platelets (Bld) [#/Vol] Platelets [#/volume] in Blood by Automated count 150-450 [facility] Potassium [Moles/volume] in Serum or PlasmaOrdered By: Brianda Harris on 03-21-2024 Potassium [Moles/Vol] Potassium [Moles/v olume] in Serum or Plasma 3.5-5.1 [facility] Protein [Mass/volume] in Ser um or PlasmaOrdered By: Brianda Harris on 03-21-2024 Protein [Mass/Vol] Protein [Mass/volume ] in Serum or Plasma 6.4-8.9 [facility] RBC Auto (Bld) [#/Vol]Ordere d By: Brianda Harris on 03-21-2024 RBC (Bld) [#/Vol] Erythrocytes [#/volu me] in Blood by Automated count 3.60-5.00 [facility] Serum or plasma albumin/glob ulin mass ratioOrdered By: Brianda Harris on 03-21-2024 Albumin/Globulin [Mass ratio] Serum or plasma albumin/globulin mass ratio [facility] Serum or plasma anion gap de terminationOrdered By: Brianda Harris on 03-21-2024 Anion gap [Moles/Vol] Serum or plasma an ion gap determination 6.0-15.0 [facility] Sodium [Moles/volume] in Ser um or PlasmaOrdered By: Brianda Harris on 03-21-2024 Sodium [Moles/Vol] Sodium [Moles/volume ] in Serum or Plasma Low 136-145 [facility] Urea nitrogen [Mass/volume] in Serum or PlasmaOrdered By: Brianda Harris on 03-21-2024 Urea nitrogen [Mass/Vol] Urea nitrogen [Mass/volume] in Serum or Plasma 7-25 [facility] WBC Auto (Bld) [#/Vol]Ordere d By: Brianda Harris on 03-21-2024 WBC (Bld) [#/Vol] Leukocytes [#/volume ] in Blood by Automated count 3.8-11.6 [facility] Alanine aminotransferase [En zymatic activity/volume] in Serum or PlasmaOrdered By: Rakan Jackson on 01-13-2024 ALT [Catalytic activity/Vol] 15 U/L Normal 7-52 [facility] Comment on above: Performed By: #### C MP, ESR, CBC #### [address] ALT [Catalytic activity/Vol] Alanine aminotransferase [Enzymatic activity/volume] in Serum or Plasma [facility] Albumin [Mass/volume] in Ser um or Plasma by Bromocresol green (BCG) dye binding methoOrdered By: Rakan Jackson on 01-13-2024 Albumin BCG dye [Mass/Vol] 4.2 g/dL 3.5-5.7 [facility] Albumin BCG dye [Mass/Vol] Albumin [Mass/volume] in Serum or Plasma by Bromocresol green (BCG) dye binding metho 3.5-5.7 [facility] Alkaline phosphatase [Enzyma tic activity/volume] in Serum or PlasmaOrdered By: Rakan Jackson on 01-13-2024 ALP [Catalytic activity/Vol] 63 U/L Normal 34 [facility] Comment on above: Result Comment: PERF ORMED BY: [place] [address] PATHOLOGIST [employer]IT[employer] RENE BOWSER M.D. Performed By: #### C MP, ESR, CBC #### [address] ALP [Catalytic activity/Vol] Alkaline phosphatase [Enzymatic activity/volume] in Serum or Plasma [facility] Aspartate aminotransferase [ Enzymatic activity/volume] in Serum or PlasmaOrdered By: Rakan Jackson on 01-13-2024 AST [Catalytic activity/Vol] 21 U/L Normal [facility] Comment on above: Performed By: #### C MP, ESR, CBC #### [address] AST [Catalytic activity/Vol] Aspartate aminotransferase [Enzymatic activity/volume] in Serum or Plasma [facility] Automated basophil %Ordered By: Rakan Jackson on 01-13-2024 Basophils/100 WBC (Bld) 0.9 % Normal . [facility] Comment on above: Performed By: #### C MP, ESR, CBC #### [address] Automated basophil countOrde red By: Rakan Jackson on 01-13-2024 Basophils (Bld) [#/Vol] 0.1 10*3/uL Normal 0.0-0.2 [facility] Comment on above: Performed By: #### C MP, ESR, CBC #### [address] Automated blood monocyte cou ntOrdered By: Rakan Coxrow on 01-13-2024 Monocytes (Bld) [#/Vol] 0.7 10*3/uL Normal 0.0-0.8 [facility] Comment on above: Performed By: #### C MP, ESR, CBC #### [address] Automated eosinophil %Ordere d By: Rakan Coxrow on 01-13-2024 Eosinophils/100 WBC (Bld) 3.2 % Normal . [facility] Comment on above: Performed By: #### C MP, ESR, CBC #### [address] Automated eosinophil countOr dered By: Rakan Coxrow on 01-13-2024 Eosinophils (Bld) [#/Vol] 0.2 10*3/uL Normal 0.0-0.45 [facility] Comment on above: Performed By: #### C MP, ESR, CBC #### [address] Automated monocyte %Ordered By: Rakan Coxrow on 01-13-2024 Monocytes/100 WBC (Bld) 9.7 % Normal . [facility] Comment on above: Performed By: #### C MP, ESR, CBC #### [address] Automated neutrophil %Ordere d By: Rakan Coxrow on 01-13-2024 Neutrophils/100 WBC (Bld) 66.5 % Normal . [facility] Comment on above: Performed By: #### C MP, ESR, CBC #### [address] Basophils Auto (Bld) [#/Vol] Ordered By: Rakan Alverto on 01-13-2024 Basophils (Bld) [#/Vol] Automated basophil count 0.0-0.2 [facility] Basophils/100 WBC Auto (Bld) Ordered By: Rakan Jackson on 01-13-2024 Basophils/100 WBC (Bld) Automated basophil % . [facility] Bilirubin.total [Mass/volume ] in Serum or PlasmaOrdered By: Rakan Jackson on 01-13-2024 Bilirubin [Mass/Vol] 0.3 mg/dL Normal 0.3-1.0 [facility] Comment on above: Performed By: #### C MP, ESR, CBC #### [facility] [address] Bilirubin [Mass/Vol] Bilirubin.total [Mass/volume] in Serum or Plasma 0.3-1.0 [facility] Calcium [Mass/volume] in Ser um or PlasmaOrdered By: Rakan Jackson on 01-13-2024 Calcium [Mass/Vol] 9.3 mg/dL Normal 8.6-10.3 [facility] Comment on above: Performed By: #### C MP, ESR, CBC #### [facility] [address] Calcium [Mass/Vol] Calcium [Mass/volume ] in Serum or Plasma 8.6-10.3 [facility] Carbon dioxide, total [Moles /volume] in Serum or PlasmaOrdered By: Rakan Jackson on 01-13-2024 CO2 [Moles/Vol] 24.6 mmol/L Normal 21.0-31.0 [facility] Comment on above: Performed By: #### C MP, ESR, CBC #### [facility] [address] [place] [id number] [facility] CO2 [Moles/Vol] Carbon dioxide, tota l [Moles/volume] in Serum or Plasma 21.0-31.0 [facility] Chloride [Moles/volume] in S sarwat or PlasmaOrdered By: Rakan Jackson on 01-13-2024 Chloride [Moles/Vol] 99 mmol/L Normal 98-107 [facility] Comment on above: Performed By: #### C MP, ESR, CBC #### [facility] [address] [place] [id number] [place] Chloride [Moles/Vol] Chloride [Moles/vol ume] in Serum or Plasma 98-107 [facility] Complete Blood Count Auto Di ffon 01-13-2024 Mean Corpuscular HGB Conc 33.7 g/dL Normal 32.0-35.0 [facility] Comment on above: Performed By: #### C MP, ESR, CBC #### [facility] [address] NRBC% 0.1 /100{WBC} Normal 0-0.5 [facility] Comment on above: Performed By: #### C MP, ESR, CBC #### [facility] [address] [place] [address] Comprehensive Metabolic Pane radha 01-13-2024 Albumin [Mass/Vol] 4.2 g/dL Normal 3.5-5.7 [facility] Comment on above: Performed By: #### C MP, ESR, CBC #### [address] GFR/1.73 sq M.predicted MDRD (S/P/Bld) [Vol rate/Area] mL/min/{1.73_m2} Normal [facility] Comment on above: Performed By: #### C MP, ESR, CBC #### [address] Creatinine [Mass/volume] in Serum or PlasmaOrdered By: Rakan Jackson on 01-13-2024 Creatinine [Mass/Vol] 0.78 mg/dL Normal 0.60-1.20 [facility] Comment on above: Performed By: #### C MP, ESR, CBC #### [facility] [address] [place] [address] Creatinine [Mass/Vol] Creatinine [Mass/v olume] in Serum or Plasma 0.60-1.20 [facility] Eosinophils Auto (Bld) [#/Vo l]Ordered By: Rakan Jackson on 01-13-2024 Eosinophils (Bld) [#/Vol] Automated eosinophil count 0.0-0.45 [facility] Eosinophils/100 WBC Auto (Bl d)Ordered By: Rakan Jackson on 01-13-2024 Eosinophils/100 WBC (Bld) Automated eosinophil % . [facility] Erythrocyte Sedimentation Ra moose 01-13-2024 ESR (Bld) [Velocity] 46 mm/h High 0-29 [facility] Comment on above: Result Comment: PERF ORMED BY: [place] [address] PATHOLOGIST [employer] RENE BOWSER M.D. Performed By: #### C MP, ESR, CBC #### [address] Erythrocyte distribution wid th Auto (RBC) [Ratio]Ordered By: Rakan Jackson on 01-13-2024 Erythrocyte distribution width (RBC) [Ratio] Erythrocyte distribution width [Ratio] by Automated count High 11.9-15.3 [facility] Erythrocyte distribution wid th [Ratio] by Automated countOrdered By: Rakan Jackson on 01-13-2024 Erythrocyte distribution width (RBC) [Ratio] 15.4 % High 11.9-15.3 [facility] Comment on above: Performed By: #### C MP, ESR, CBC #### [facility] [address] [place] [address] Erythrocyte sedimentation ra te by Photometric methodOrdered By: Rakan Jackson on 01-13-2024 ESR Photometric method (Bld) [Velocity] 46 mm/hr High 0-29 [facility] ESR Photometric method (Bld) [Velocity] Erythrocyte sedimentation rate by Photometric method High 0-29 [facility] Erythrocytes [#/volume] in B lood by Automated countOrdered By: Rakan Jackson on 01-13-2024 RBC (Bld) [#/Vol] 4.40 10*6/uL Normal 3.60-5.00 [facility] Comment on above: Performed By: #### C MP, ESR, CBC #### [address] Globulin Calc (S) [Mass/Vol] Ordered By: Rakan Jackson on 01-13-2024 Globulin (S) [Mass/Vol] Serum globulin measurement by calculation (mass/volume) [facility] Glucose [Mass/volume] in Ser um or PlasmaOrdered By: Rakan Jackson on 01-13-2024 Glucose [Mass/Vol] 85 mg/dL Normal 70-100 [facility] Comment on above: ADA recommended refe rence rangeRandom Glucose Reference Range is dependent on time and content of last meal. Glucose of more than 200 mg/dL in a nonstressed, ambulatory subject supports the diagnosis of Diabetes Mellitus. Result Comment: [place] Glucose Reference Range is dependent on time and content of last meal. Glucose of more than 200 mg/dL in a nonstressed, ambulatory subject supports the diagnosis of Diabetes Mellitus. ADA recommended reference range Performed By: #### C MP, ESR, CBC #### [address] Glucose [Mass/Vol] Glucose [Mass/volume ] in Serum or Plasma 70-100 [facility] Comment on above: ADA recommended refe rence rangeRandom Glucose Reference Range is dependent on time and content of last meal. Glucose of more than 200 mg/dL in a nonstressed, ambulatory subject supports the diagnosis of Diabetes Mellitus. Hematocrit Auto (Bld) [Volum e fraction]Ordered By: Rakan Jackson on 01-13-2024 Hematocrit (Bld) [Volume fraction] Hematocrit [Volume Fraction] of Blood by Automated count 34.0-46.4 [facility] Hematocrit [Volume Fraction] of Blood by Automated countOrdered By: Rakan Jackson on 01-13-2024 Hematocrit (Bld) [Volume fraction] 39.0 % Normal 34.0-46.4 [facility] Comment on above: Performed By: #### C MP, ESR, CBC #### [facility] [address] Hemoglobin [Mass/volume] in BloodOrdered By: Rakan Jackson on 01-13-2024 Hemoglobin (Bld) [Mass/Vol] 13.2 g/dL Normal 11.8-15.4 [facility] Comment on above: Performed By: #### C MP, ESR, CBC #### [facility] [address] [place] [address] [place] Hemoglobin (Bld) [Mass/Vol] Hemoglobin [Mass/volume] in Blood 11.8-15.4 [facility] Leukocytes [#/volume] correc baena for nucleated erythrocytes in Blood by Automated counOrdered By: Rakan Jackson on 01-13-2024 WBC corrected for nucl RBC Auto (Bld) [#/Vol] 7.5 10*3/uL 3.8-11.6 [facility] WBC corrected for nucl RBC Auto (Bld) [#/Vol] Leukocytes [#/volume] corrected for nucleated erythrocytes in Blood by Automated coun 3.8-11.6 [facility] Leukocytes [#/volume] in Blo od by Automated countOrdered By: Rakan Jackson on 01-13-2024 WBC (Bld) [#/Vol] 7.5 10*3/uL Normal 3.8-11.6 [facility] Comment on above: Performed By: #### C MP, ESR, CBC #### [facility] [address] [place] [address] Lymphocytes Auto (Bld) [#/Vo l]Ordered By: Rakan Jackson on 01-13-2024 Lymphocytes (Bld) [#/Vol] Lymphocytes [#/volume] in Blood by Automated count 1.00-4.8 [facility] Lymphocytes [#/volume] in Bl ood by Automated countOrdered By: Rakan Jackson on 01-13-2024 Lymphocytes (Bld) [#/Vol] 1.5 10*3/uL Normal 1.00-4.8 [facility] Comment on above: Performed By: #### C MP, ESR, CBC #### [facility] [address] [place] [address] Lymphocytes/100 WBC Auto (Bl d)Ordered By: Rakan Jackson on 01-13-2024 Lymphocytes/100 WBC (Bld) Lymphocytes/100 leukocytes in Blood by Automated count . [facility] Lymphocytes/100 leukocytes i n Blood by Automated countOrdered By: Rakan Jackson on 01-13-2024 Lymphocytes/100 WBC (Bld) 19.7 % Normal . [facility] Comment on above: Performed By: #### C MP, ESR, CBC #### [facility] [address] MCH Auto (RBC) [Entitic mass ]Ordered By: Rakan Jackson on 01-13-2024 MCH (RBC) [Entitic mass] MCH [Entitic mass] by Automated count 24.7-34.3 [facility] MCH [Entitic mass] by Automa abena countOrdered By: Rakan Jackson on 01-13-2024 MCH (RBC) [Entitic mass] 29.9 pg Normal 24.7-34.3 [facility] Comment on above: Performed By: #### C MP, ESR, CBC #### [facility] [address] [place] [address] MCHC Auto (RBC) [Mass/Vol]Or dered By: Rakan Jackson on 01-13-2024 MCHC (RBC) [Mass/Vol] 33.7 g/dL 32.0-35.0 [facility] MCHC (RBC) [Mass/Vol] MCHC [Mass/volume] by Automated count 32.0-35.0 [facility] MCV Auto (RBC) [Entitic vol] Ordered By: Rakan Jackson on 01-13-2024 MCV (RBC) [Entitic vol] MCV [Entitic volume] by Automated count 80-100 [facility] MCV [Entitic volume] by Auto mated countOrdered By: Rakan Jackson on 01-13-2024 MCV (RBC) [Entitic vol] 88.6 fL Normal 80-100 [facility] Comment on above: Performed By: #### C MP, ESR, CBC #### [facility] [address] [place] [address] Monocytes Auto (Bld) [#/Vol] Ordered By: Rakan Jackson on 01-13-2024 Monocytes (Bld) [#/Vol] Automated blood monocyte count 0.0-0.8 [facility] Monocytes/100 WBC Auto (Bld) Ordered By: Rakan Jackson on 01-13-2024 Monocytes/100 WBC (Bld) Automated monocyte % . [facility] Neutrophils Auto (Bld) [#/Vo l]Ordered By: Rakan Jackson on 01-13-2024 Neutrophils (Bld) [#/Vol] Neutrophils [#/volume] in Blood by Automated count 1.8-7.7 [facility] Neutrophils [#/volume] in Bl ood by Automated countOrdered By: Rakan Jackson on 01-13-2024 Neutrophils (Bld) [#/Vol] 5.0 10*3/uL Normal 1.8-7.7 [facility] Comment on above: Performed By: #### C MP, ESR, CBC #### [facility] [address] [place] [address] Neutrophils/100 WBC Auto (Bl d)Ordered By: Rakan Jackson on 01-13-2024 Neutrophils/100 WBC (Bld) Automated neutrophil % . [facility] No Panel InformationOrdered By: Rakan Jackson on 01-13-2024 Estimated GFR (CKD-EPI) > 60.0 mL/Min [facility] Creatinine Clearance (Chem N/A [facility] Nucleated erythrocytes [Pres ence] in Blood by Automated countOrdered By: Rakan Jackson on 01-13-2024 Nucleated RBC Auto Ql (Bld) 0.1 /100{WBC} 0-0.5 [facility] Nucleated RBC Auto Ql (Bld) Nucleated erythrocytes [Presence] in Blood by Automated count 0-0.5 [facility] Platelet mean volume Auto (B ld) [Entitic vol]Ordered By: Rakan Jackson on 01-13-2024 Platelet mean volume (Bld) [Entitic vol] Platelet mean volume [Entitic volume] in Blood by Automated count 6.3-10.7 [facility] Platelet mean volume [Entiti c volume] in Blood by Automated countOrdered By: Rakan Jackson on 01-13-2024 Platelet mean volume (Bld) [Entitic vol] 8.9 fL Normal 6.3-10.7 [facility] Comment on above: Performed By: #### C MP, ESR, CBC #### [facility] [address] [place] [address] Platelets Auto (Bld) [#/Vol] Ordered By: Rakan Jackson on 10-31-2024 Platelets (Bld) [#/Vol] Platelets [#/volume] in Blood by Automated count 150-450 [facility] Platelets [#/volume] in Bloo d by Automated countOrdered By: Rakananahi Jackson on 01-13-2024 Platelets (Bld) [#/Vol] 312 10*3/uL Normal 150-450 [facility] Comment on above: Performed By: #### C MP, ESR, CBC #### [address] Potassium [Moles/volume] in Serum or PlasmaOrdered By: Rakan Jackson on 01-13-2024 Potassium [Moles/Vol] 4.4 mmol/L Normal 3.5-5.1 [facility] Comment on above: Performed By: #### C MP, ESR, CBC #### [address] Potassium [Moles/Vol] Potassium [Moles/v olume] in Serum or Plasma 3.5-5.1 [facility] Protein [Mass/volume] in Ser um or PlasmaOrdered By: Rakan Jackson on 01-13-2024 Protein [Mass/Vol] 7.5 g/dL Normal 6.4-8.9 [facility] Comment on above: Performed By: #### C MP, ESR, CBC #### [address] Protein [Mass/Vol] Protein [Mass/volume ] in Serum or Plasma 6.4-8.9 [facility] RBC Auto (Bld) [#/Vol]Ordere d By: Rakan Jackson on 01-13-2024 RBC (Bld) [#/Vol] Erythrocytes [#/volu me] in Blood by Automated count 3.60-5.00 [facility] Serum globulin measurement b y calculation (mass/volume)Ordered By: Rakan Jackson on 01-13-2024 Globulin (S) [Mass/Vol] 3.3 g/dL Normal [facility] Comment on above: Performed By: #### C MP, ESR, CBC #### [address] Serum or plasma albumin/glob ulin mass ratioOrdered By: Rakan Jackson on 01-13-2024 Albumin/Globulin [Mass ratio] 1.3 {ratio} Normal [facility] Comment on above: Performed By: #### C MP, ESR, CBC #### [address] Albumin/Globulin [Mass ratio] Serum or plasma albumin/globulin mass ratio [facility] Serum or plasma anion gap de terminationOrdered By: Rakan Jackson on 01-13-2024 Anion gap [Moles/Vol] 11.8 mmol/L Normal 6.0-15.0 [facility] Comment on above: Performed By: #### C MP, ESR, CBC #### [address] Anion gap [Moles/Vol] Serum or plasma an ion gap determination 6.0-15.0 [facility] Sodium [Moles/volume] in Ser um or PlasmaOrdered By: Rakan Jackson on 01-13-2024 Sodium [Moles/Vol] 131 mmol/L Low 136-145 [facility] Comment on above: Performed By: #### C MP, ESR, CBC #### [address] Sodium [Moles/Vol] Sodium [Moles/volume ] in Serum or Plasma Low 136-145 [facility] Urea nitrogen [Mass/volume] in Serum or PlasmaOrdered By: Rakan Jackson on 01-13-2024 Urea nitrogen [Mass/Vol] 16 mg/dL Normal 10-06 [facility] Comment on above: Performed By: #### C MP, ESR, CBC #### [facility] [address] [place] [address] Urea nitrogen [Mass/Vol] Urea nitrogen [Mass/volume] in Serum or Plasma 10-06 [facility] WBC Auto (Bld) [#/Vol]Ordere d By: Rakan Jackson on 01-13-2024 WBC (Bld) [#/Vol] Leukocytes [#/volume ] in Blood by Automated count 3.8-11.6 [facility] Office Visiton 01-10-2024 Follow-up visit [id number] Marisol Barbosa 1940 F Date Provider Department Center 01/10/2024 Demarco-REGGIEMATHIEUJOHNNAMckaylaDAPHNE LILIYA [facility] Family History Problem Relation Age of Onset Valvular heart disease Mother Heart attack Father Heart attack Brother Coronary artery disease Brother Family Status - Relation Status Age at Mother Father Brother Level of Service:98158 OR OFFICE/OUTPATIENT ESTABLISHED LOW MDM 20 MIN Normal [facility] US carotid doppler BIon 11-14 US carotid doppler BI [facility] [address] [place] [address] Ultrasound Report Signed Patient: Nenita Barbosa MR#: [id number] 8 : 1940 Acct:[id number] Age/Sex: 83 / F ADM Date: 12/06/23 Loc: [facility] Room: Type: [facility] Attending Dr: Blake Zhao MD Ordering [...] Blake Zhao M.D.12/06/2023 12:38 PM Dictation Location: [place] [address] Tech: Jannie Nieto Transcribed By: TORIN 12/06/23 1238 Dictated By: Blake Zhao MD 12/06/23 1237 Signed By: 12/06/23 1238 Normal [facility] ALL BASIC METABOLIC PANELon 11-11-2023 Anion gap [Moles/Vol] 12.4 mmol/L [facility] Calcium [Mass/Vol] 8.9 mg/dL 8.5 - 10. 1 mg/dL [facility] Chloride [Moles/Vol] 95 mmol/L Low 98 - 10 7 mmol/L [facility] CO2 [Moles/Vol] 25.9 mmol/L 21.0 - 32.0 mmol/L [facility] Creatinine [Mass/Vol] 0.83 mg/dL 0.55 - 1.02 mg[facility]1.[facility] sq M.predicted CKD-EPI (S/P/Bld) [Vol rate/Area] >60 60 - PINF [facility] Glucose [Mass/Vol] 72 mg/dL Low 74 - 106 mg/dL [facility] Interpretation and review of laboratory results Abnormal [facility] Potassium [Moles/Vol] 4.3 mmol/L 3.5 - 5.1 mmol/L [facility] Sodium [Moles/Vol] 129 mmol/L Low 136 - 145 mmol/L [facility] TBH EGFR-NON AF NIGERIEN >60 60 - PINF [facility] Urea nitrogen [Mass/Vol] 21.0 mg/dL High 7.0 - 18.0 mg/dL [facility] Urea nitrogen/Creatinine [Mass ratio] 25.3 mg/mg [facility] 36on 11-03-2023 36 Patient returned my call this morning and was made aware of medication changes per Dr. Mcguire. She will have labs 1 week later. RX and lab order sent. [facility] 11-02-2023 36 LM on patient's jennifer segundo number for her to return my call. [facility] 11-01-2023 36 Patient called to jessica wolff aware that she's not tolerating the addition of chlorthalidone. She's been nauseous since she started it. She did have labs recently. Did you want to make any changes? Please advise. Thanks. [facility] Office Visiton 10-18-2023 Follow-up visit [id number] Marisol Barbosa justino 1940 Date Provider Department Center 10/18/2023 DAPHNE GILLETTE Family History Problem Relation Age of Onset Valvular heart disease Mother Heart attack Father Heart attack Brother Coronary artery disease Brother Family Status - Relation Status Age at Mother Father Brother Level of Service:36134 OR OFFICE/OUTPATIENT ESTABLISHED MOD MDM 30 MIN [facility] Office Visiton 09-30-2023 Follow-up visit [id number] StefMarisol justino 1940 Date Provider Department Center 09/30/2023 DAPHNE GILLETTE Family History Problem Relation Age of Onset Valvular heart disease Mother Heart attack Father Heart attack Brother Coronary artery disease Brother Family Status - Relation Status Age at Mother Father Brother Level of Service:83189 OR OFFICE/OUTPATIENT ESTABLISHED LOW MDM 20 MIN Normal [facility] Alanine aminotransferase [En zymatic activity/volume] in Serum or PlasmaOrdered By: Rakan Jackson on 09-23-2023 ALT [Catalytic activity/Vol] 14 U/L Normal 7-52 [facility] Comment on above: Performed By: #### C BC, CMP, ESR #### [place] [address] [place] Albumin [Mass/volume] in Ser um or Plasma by Bromocresol green (BCG) dye binding methoOrdered By: Rakan Jackson on 09-23-2023 Albumin BCG dye [Mass/Vol] 3.8 g/dL 3.5-5.7 [facility] Alkaline phosphatase [Enzyma tic activity/volume] in Serum or PlasmaOrdered By: Rakan Jackson on 09-23-2023 ALP [Catalytic activity/Vol] 63 U/L Normal 34-104 [facility] Comment on above: Result Comment: PERF ORMED BY: [place] [address] PATHOLOGIST [employer] RENE BOWSER M.D. Performed By: #### C BC, CMP, ESR #### [address] Aspartate aminotransferase [ Enzymatic activity/volume] in Serum or PlasmaOrdered By: Rakan Jackson on 09-23-2023 AST [Catalytic activity/Vol] 22 U/L Normal 13-39 [facility] Comment on above: Performed By: #### C BC, CMP, ESR #### [address] Automated basophil %Ordered By: Rakan Jackson on 09-23-2023 Basophils/100 WBC (Bld) 0.8 % Normal . [facility] Comment on above: Performed By: #### C BC, CMP, ESR #### [address] Automated basophil countOrde red By: Rakan Jackson on 09-23-2023 Basophils (Bld) [#/Vol] 0.1 10*3/uL Normal 0.0-0.2 [facility] Comment on above: Performed By: #### C BC, CMP, ESR #### [address] Automated blood monocyte cou ntOrdered By: Rakananahi Jackson on 09-23-2023 Monocytes (Bld) [#/Vol] 0.9 10*3/uL High 0.0-0.8 [facility] Comment on above: Performed By: #### C BC, CMP, ESR #### [address] Automated eosinophil %Ordere d By: Rakan Alverto on 09-23-2023 Eosinophils/100 WBC (Bld) 2.7 % Normal . [facility] Comment on above: Performed By: #### C BC, CMP, ESR #### [address] Automated eosinophil countOr dered By: Rakan Jackson on 09-23-2023 Eosinophils (Bld) [#/Vol] 0.2 10*3/uL Normal 0.0-0.45 [facility] Comment on above: Performed By: #### C BC, CMP, ESR #### [address] Automated monocyte %Ordered By: Rakananahi Jackson on 09-23-2023 Monocytes/100 WBC (Bld) 11.3 % Normal . [facility] Comment on above: Performed By: #### C BC, CMP, ESR #### [address] Automated neutrophil %Ordere d By: Rakananahi Jackson on 09-23-2023 Neutrophils/100 WBC (Bld) 67.2 % Normal . [facility] Comment on above: Performed By: #### C BC, CMP, ESR #### [address] Bilirubin.total [Mass/volume ] in Serum or PlasmaOrdered By: Rakan Jackson on 09-23-2023 Bilirubin [Mass/Vol] 0.4 mg/dL Normal 0.3-1.0 [facility] Comment on above: Performed By: #### C BC, CMP, ESR #### [address] Calcium [Mass/volume] in Ser um or PlasmaOrdered By: Rakan Jackson on 09-23-2023 Calcium [Mass/Vol] 9.3 mg/dL Normal 8.6-10.3 [facility] Comment on above: Performed By: #### C BC, CMP, ESR #### [address] Carbon dioxide, total [Moles /volume] in Serum or PlasmaOrdered By: Rakan Jackson on 09-23-2023 CO2 [Moles/Vol] 24.9 mmol/L Normal 21.0-31.0 [facility] Comment on above: Performed By: #### C BC, CMP, ESR #### [address] Chloride [Moles/volume] in S sarwat or PlasmaOrdered By: Rakan Jackson on 09-23-2023 Chloride [Moles/Vol] 96 mmol/L Low 98-107 [facility] Comment on above: Performed By: #### C BC, CMP, ESR #### [address] Complete Blood Count Auto Di ffon 09-23-2023 Mean Corpuscular HGB Conc 33.9 g/dL Normal 32.0-35.0 [facility] Comment on above: Performed By: #### C BC, CMP, ESR #### [address] NRBC% 0.1 /100{WBC} Normal 0-0.5 [facility] Comment on above: Performed By: #### C BC, CMP, ESR #### [address] Comprehensive Metabolic Pane radha 09-23-2023 Albumin [Mass/Vol] 3.8 g/dL Normal 3.5-5.7 [facility] Comment on above: Performed By: #### C BC, CMP, ESR #### [address] GFR/1.73 sq M.predicted MDRD (S/P/Bld) [Vol rate/Area] mL/min/{1.73_m2} Normal [facility] Comment on above: Performed By: #### C BC, CMP, ESR #### [address] Creatinine [Mass/volume] in Serum or PlasmaOrdered By: Rakan Jackson on 09-23-2023 Creatinine [Mass/Vol] 0.84 mg/dL Normal 0.60-1.20 [facility] Comment on above: Performed By: #### C BC, CMP, ESR #### [address] Erythrocyte Sedimentation Ra moose 09-23-2023 ESR (Bld) [Velocity] 50 mm/h High 0-29 [facility] Comment on above: Result Comment: PERF ORMED BY: [place] [address] PATHOLOGIST [employer] RENE BOWSER M.D. Performed By: #### C BC, CMP, ESR #### [address] Erythrocyte distribution wid th [Ratio] by Automated countOrdered By: Rakan Jackson on 09-23-2023 Erythrocyte distribution width (RBC) [Ratio] 14.6 % Normal 11.9-15.3 [facility] Comment on above: Performed By: #### C BC, CMP, ESR #### [address] Erythrocyte sedimentation ra te by Photometric methodOrdered By: Rakan Jackson on 09-23-2023 ESR Photometric method (Bld) [Velocity] 50 mm/hr High 0-29 [facility] Erythrocytes [#/volume] in B lood by Automated countOrdered By: Rakan Jackson on 09-23-2023 RBC (Bld) [#/Vol] 4.53 10*6/uL Normal 3.60-5.00 [facility] Comment on above: Performed By: #### C ANALILIA ALVES, ESR #### [facility] [address] [place] [address] [place] Glucose [Mass/volume] in Ser um or PlasmaOrdered By: Rakan Jackson on 09-23-2023 Glucose [Mass/Vol] 106 mg/dL High 70-100 [facility] Comment on above: ADA recommended refe rence rangeRandom Glucose Reference Range is dependent on time and content of last meal. Glucose of more than 200 mg/dL in a nonstressed, ambulatory subject supports the diagnosis of Diabetes Mellitus. Result Comment: [place] om Glucose Reference Range is dependent on time and content of last meal. Glucose of more than 200 mg/dL in a nonstressed, ambulatory subject supports the diagnosis of Diabetes Mellitus. ADA recommended reference range Performed By: #### C ANALILIA ALVES, ESR #### [address] Hematocrit [Volume Fraction] of Blood by Automated countOrdered By: Rakan Jackson on 09-23-2023 Hematocrit (Bld) [Volume fraction] 38.8 % Normal 34.0-46.4 [facility] Comment on above: Performed By: #### C ANALILIA ALVES, ESR #### [address] Hemoglobin [Mass/volume] in BloodOrdered By: Rakan Jackson on 09-23-2023 Hemoglobin (Bld) [Mass/Vol] 13.2 g/dL Normal 11.8-15.4 [facility] Comment on above: Performed By: #### C ANALILIA ALVES, ESR #### [address] Leukocytes [#/volume] correc abena for nucleated erythrocytes in Blood by Automated counOrdered By: Rakan Jackson on 09-23-2023 WBC corrected for nucl RBC Auto (Bld) [#/Vol] 8.2 10*3/uL 3.8-11.6 [facility] Leukocytes [#/volume] in Blo od by Automated countOrdered By: Rakan Jackson on 09-23-2023 WBC (Bld) [#/Vol] 8.2 10*3/uL Normal 3.8-11.6 [facility] Comment on above: Performed By: #### C BC, CMP, ESR #### [address] Lymphocytes [#/volume] in Bl ood by Automated countOrdered By: Rakan Jackson on 09-23-2023 Lymphocytes (Bld) [#/Vol] 1.5 10*3/uL Normal 1.00-4.8 [facility] Comment on above: Performed By: #### C BC, CMP, ESR #### [address] Lymphocytes/100 leukocytes i n Blood by Automated countOrdered By: Rakan Jackson on 09-23-2023 Lymphocytes/100 WBC (Bld) 18.0 % Normal . [facility] Comment on above: Performed By: #### C BC, CMP, ESR #### [address] MCH [Entitic mass] by Automa abena countOrdered By: Rakan Jackson on 09-23-2023 MCH (RBC) [Entitic mass] 29.1 pg Normal 24.7-34.3 [facility] Comment on above: Performed By: #### C BC, CMP, ESR #### [address] MCHC Auto (RBC) [Mass/Vol]Or dered By: Rakan Jackson on 09-23-2023 MCHC (RBC) [Mass/Vol] 33.9 g/dL 32.0-35.0 [facility] MCV [Entitic volume] by Auto mated countOrdered By: Rakan Jackson on 09-23-2023 MCV (RBC) [Entitic vol] 85.7 fL Normal 80-100 [facility] Comment on above: Performed By: #### C BC, CMP, ESR #### [address] Neutrophils [#/volume] in Bl ood by Automated countOrdered By: Rakan Jackson on 09-23-2023 Neutrophils (Bld) [#/Vol] 5.5 10*3/uL Normal 1.8-7.7 [facility] Comment on above: Performed By: #### C BC, CMP, ESR #### [address] No Panel InformationOrdered By: Rakananahi Jackson on 09-23-2023 Estimated GFR (CKD-EPI) > 60.0 mL/Min [facility] Creatinine Clearance (Chem N/A [facility] Nucleated erythrocytes [Pres ence] in Blood by Automated countOrdered By: Rakan Jackson on 09-23-2023 Nucleated RBC Auto Ql (Bld) 0.1 /100{WBC} 0-0.5 [facility] Platelet mean volume [Entiti c volume] in Blood by Automated countOrdered By: Rakan Jackson on 09-23-2023 Platelet mean volume (Bld) [Entitic vol] 9.3 fL Normal 6.3-10.7 [facility] Comment on above: Performed By: #### C BC, CMP, ESR #### [address] Platelets [#/volume] in Bloo d by Automated countOrdered By: Rakan Jackson on 09-23-2023 Platelets (Bld) [#/Vol] 239 10*3/uL Normal 150-450 [facility] Comment on above: Performed By: #### C BC, CMP, ESR #### [place] [address] [place] Potassium [Moles/volume] in Serum or PlasmaOrdered By: Rakan Jackson on 09-23-2023 Potassium [Moles/Vol] 4.3 mmol/L Normal 3.5-5.1 [facility] Comment on above: Performed By: #### C BC, CMP, ESR #### [address] Protein [Mass/volume] in Ser um or PlasmaOrdered By: Rakan Jackson on 09-23-2023 Protein [Mass/Vol] 7.3 g/dL Normal 6.4-8.9 [facility] Comment on above: Performed By: #### C LONG CMP, ESR #### [address] Serum globulin measurement b y calculation (mass/volume)Ordered By: Rakan Jackson on 09-23-2023 Globulin (S) [Mass/Vol] 3.5 g/dL [facility] Comment on above: Performed By: #### C LONG CMP, ESR #### [address] Serum or plasma albumin/glob ulin mass ratioOrdered By: Rakan Jackson on 09-23-2023 Albumin/Globulin [Mass ratio] 1.1 {ratio} [facility] Comment on above: Performed By: #### C LONG CMP, ESR #### [address] Serum or plasma anion gap de terminationOrdered By: Rakan Jackson on 09-23-2023 Anion gap [Moles/Vol] 11.4 mmol/L Normal 6.0-15.0 [facility] Comment on above: Performed By: #### C LONG CMP, ESR #### [address] Sodium [Moles/volume] in Ser um or PlasmaOrdered By: Rakan Jackson on 09-23-2023 Sodium [Moles/Vol] 128 mmol/L Low 136-145 [facility] Comment on above: Performed By: #### C LONG CMP, ESR #### [address] Urea nitrogen [Mass/volume] in Serum or PlasmaOrdered By: Rakan Jackson on 09-23-2023 Urea nitrogen [Mass/Vol] 19 mg/dL Normal 7-25 [facility] Comment on above: Performed By: #### C LONG CMP, ESR #### [address] Office Visiton 07-19-2023 Follow-up visit [id number] Marisol Barbosa 1940 F Date Provider Department Center 07/19/2023 [facility] Family History Problem Relation Age of Onset Valvular heart disease Mother Heart attack Father Heart attack Brother Coronary artery disease Brother Family Status - Relation Status Age at Mother Father Brother Level of Service:89688 OR OFFICE/OUTPATIENT ESTABLISHED MOD MDM 30 MIN Normal [facility] Alanine aminotransferase [En zymatic activity/volume] in Serum or PlasmaOrdered By: Brianda Harris on 06-03-2023 ALT [Catalytic activity/Vol] 16 U/L Normal 7-52 [facility] Comment on above: Performed By: #### C BC, CMP, ESR #### [facility] [address] [place] [address] [place] Albumin [Mass/volume] in Ser um or Plasma by Bromocresol green (BCG) dye binding methoOrdered By: Brianda Harris on 06-03-2023 Albumin BCG dye [Mass/Vol] 4.1 g/dL 3.5-5.7 [facility] Alkaline phosphatase [Enzyma tic activity/volume] in Serum or PlasmaOrdered By: Brianda Harris on 06-03-2023 ALP [Catalytic activity/Vol] 69 U/L Normal 34-104 [facility] Comment on above: Result Comment: PERF ORMED BY: [place] [address] PATHOLOGIST [employer]IT[employer] RENE BOWSER M.D. Performed By: #### C BC, CMP, ESR #### [facility] [address] [place] [address] [place] Aspartate aminotransferase [ Enzymatic activity/volume] in Serum or PlasmaOrdered By: Brianda Harris on 06-03-2023 AST [Catalytic activity/Vol] 23 U/L Normal 13-39 [facility] Comment on above: Performed By: #### C BC, CMP, ESR #### [facility] [address] [place], [place] [id number] [place] Automated basophil %Ordered By: Brianda Harris on 06-03-2023 Basophils/100 WBC (Bld) 0.9 % Normal . [facility] Comment on above: Performed By: #### C BC, CMP, ESR #### [address] Automated basophil countOrde red By: Brianda Harris on 06-03-2023 Basophils (Bld) [#/Vol] 0.1 10*3/uL Normal 0.0-0.2 [facility] Comment on above: Performed By: #### C BC, CMP, ESR #### [address] Automated blood monocyte cou ntOrdered By: Brianda Harris on 06-03-2023 Monocytes (Bld) [#/Vol] 0.9 10*3/uL High 0.0-0.8 [facility] Comment on above: Performed By: #### C BC, CMP, ESR #### [address] Automated eosinophil %Ordere d By: Brianda Harris on 06-03-2023 Eosinophils/100 WBC (Bld) 2.4 % Normal . [facility] Comment on above: Performed By: #### C BC, CMP, ESR #### [address] Automated eosinophil countOr dered By: Brianda Harris on 06-03-2023 Eosinophils (Bld) [#/Vol] 0.2 10*3/uL Normal 0.0-0.45 [facility] Comment on above: Performed By: #### C BC, CMP, ESR #### [address] Automated monocyte %Ordered By: Brianda Harris on 06-03-2023 Monocytes/100 WBC (Bld) 11.1 % Normal . [facility] Comment on above: Performed By: #### C BC, CMP, ESR #### [address] Automated neutrophil %Ordere d By: Brianda Harris on 06-03-2023 Neutrophils/100 WBC (Bld) 66.3 % Normal . [facility] Comment on above: Performed By: #### C BC, CMP, ESR #### [facility] [address] Bilirubin.total [Mass/volume ] in Serum or PlasmaOrdered By: Brianda Harris on 06-03-2023 Bilirubin [Mass/Vol] 0.5 mg/dL Normal 0.3-1.0 [facility] Comment on above: Performed By: #### C BC, CMP, ESR #### [facility] [address] [place] [address] [place] Calcium [Mass/volume] in Ser um or PlasmaOrdered By: Brianda Harris on 06-03-2023 Calcium [Mass/Vol] 9.4 mg/dL Normal 8.6-10.3 [facility] Comment on above: Performed By: #### C BC, CMP, ESR #### [facility] [address] Carbon dioxide, total [Moles /volume] in Serum or PlasmaOrdered By: Brianda Harris on 06-03-2023 CO2 [Moles/Vol] 25.4 mmol/L Normal 21.0-31.0 [facility] Comment on above: Performed By: #### C BC, CMP, ESR #### [facility] [address] [place] [address] [place] Chloride [Moles/volume] in S sarwat or PlasmaOrdered By: Brianda Harris on 06-03-2023 Chloride [Moles/Vol] 102 mmol/L Normal 98-107 [facility] Comment on above: Performed By: #### C BC, CMP, ESR #### [facility] [address] Complete Blood Count Auto Di ffon 06-03-2023 Mean Corpuscular HGB Conc 32.9 g/dL Normal 32.0-35.0 [facility] Comment on above: Performed By: #### C BC, CMP, ESR #### [facility] [address] [place] [address] [place] NRBC% 0.1 /100{WBC} Normal 0-0.5 [facility] Comment on above: Performed By: #### C BC, CMP, ESR #### [address] Comprehensive Metabolic Pane radha 06-03-2023 Albumin [Mass/Vol] 4.1 g/dL Normal 3.5-5.7 [facility] Comment on above: Performed By: #### C BC, CMP, ESR #### [address] GFR/1.73 sq M.predicted MDRD (S/P/Bld) [Vol rate/Area] mL/min/{1.73_m2} Normal [facility] Comment on above: Performed By: #### C BC, CMP, ESR #### [address] Creatinine [Mass/volume] in Serum or PlasmaOrdered By: Brianda Harris on 06-03-2023 Creatinine [Mass/Vol] 0.89 mg/dL Normal 0.60-1.20 [facility] Comment on above: Performed By: #### C BC, CMP, ESR #### [address] Erythrocyte Sedimentation Ra moose 06-03-2023 ESR (Bld) [Velocity] 42 mm/h High 0-29 [facility] Comment on above: Result Comment: PERF ORMED BY: [place] [address] PATHOLOGIST [employer] RENE BOWSER M.D. Performed By: #### C BC, CMP, ESR #### [address] Erythrocyte distribution wid th [Ratio] by Automated countOrdered By: Brianda Harris on 06-03-2023 Erythrocyte distribution width (RBC) [Ratio] 14.1 % Normal 11.9-15.3 [facility] Comment on above: Performed By: #### C BC, CMP, ESR #### [address] Erythrocyte sedimentation ra te by Photometric methodOrdered By: Brianda Harris on 06-03-2023 ESR Photometric method (Bld) [Velocity] 42 mm/hr 0-29 [facility] Erythrocytes [#/volume] in B lood by Automated countOrdered By: Brianda Harris on 06-03-2023 RBC (Bld) [#/Vol] 4.80 10*6/uL Normal 3.60-5.00 [facility] Comment on above: Performed By: #### C LONG CMP, ESR #### [facility] [address] Glucose [Mass/volume] in Ser um or PlasmaOrdered By: Brianda Harris on 06-03-2023 Glucose [Mass/Vol] 91 mg/dL Normal 70-100 [facility] Comment on above: ADA recommended refe rence rangeRandom Glucose Reference Range is dependent on time and content of last meal. Glucose of more than 200 mg/dL in a nonstressed, ambulatory subject supports the diagnosis of Diabetes Mellitus. Result Comment: [place] om Glucose Reference Range is dependent on time and content of last meal. Glucose of more than 200 mg/dL in a nonstressed, ambulatory subject supports the diagnosis of Diabetes Mellitus. ADA recommended reference range Performed By: #### C LONG CMP, ESR #### [facility] [address] Hematocrit [Volume Fraction] of Blood by Automated countOrdered By: Brianda Harris on 06-03-2023 Hematocrit (Bld) [Volume fraction] 41.8 % Normal 34.0-46.4 [facility] Comment on above: Performed By: #### C LONG CMP, ESR #### [facility] [address] Hemoglobin [Mass/volume] in BloodOrdered By: Brianda Harris on 06-03-2023 Hemoglobin (Bld) [Mass/Vol] 13.8 g/dL Normal 11.8-15.4 [facility] Comment on above: Performed By: #### C BC, CMP, ESR #### [facility] [address] Leukocytes [#/volume] correc abena for nucleated erythrocytes in Blood by Automated counOrdered By: Brianda Harris on 06-03-2023 WBC corrected for nucl RBC Auto (Bld) [#/Vol] 8.3 10*3/uL 3.8-11.6 [facility] Leukocytes [#/volume] in Blo od by Automated countOrdered By: Brianda Harris on 06-03-2023 WBC (Bld) [#/Vol] 8.3 10*3/uL Normal 3.8-11.6 [facility] Comment on above: Performed By: #### C BC, CMP, ESR #### [address] Lymphocytes [#/volume] in Bl ood by Automated countOrdered By: Brianda Harris on 06-03-2023 Lymphocytes (Bld) [#/Vol] 1.6 10*3/uL Normal 1.00-4.8 [facility] Comment on above: Performed By: #### C BC, CMP, ESR #### [address] Lymphocytes/100 leukocytes i n Blood by Automated countOrdered By: Brianda Harris on 06-03-2023 Lymphocytes/100 WBC (Bld) 19.3 % Normal . [facility] Comment on above: Performed By: #### C BC, CMP, ESR #### [address] MCH [Entitic mass] by Automa abena countOrdered By: Brianda Harris on 06-03-2023 MCH (RBC) [Entitic mass] 28.7 pg Normal 24.7-34.3 [facility] Comment on above: Performed By: #### C BC, CMP, ESR #### [address] MCHC Auto (RBC) [Mass/Vol]Or dered By: Brianda Harris on 06-03-2023 MCHC (RBC) [Mass/Vol] 32.9 g/dL 32.0-35.0 [facility] MCV [Entitic volume] by Auto mated countOrdered By: Brianda Harris on 06-03-2023 MCV (RBC) [Entitic vol] 87.0 fL Normal 80-100 [facility] Comment on above: Performed By: #### C BC, CMP, ESR #### [address] Neutrophils [#/volume] in Bl ood by Automated countOrdered By: Brianda aHrris on 06-03-2023 Neutrophils (Bld) [#/Vol] 5.5 10*3/uL Normal 1.8-7.7 [facility] Comment on above: Performed By: #### C BC, CMP, ESR #### [address] No Panel InformationOrdered By: Brianda Harris on 06-03-2023 Estimated GFR (CKD-EPI) > 60.0 mL/Min [facility] Creatinine Clearance (Chem N/A [facility] Nucleated erythrocytes [Pres ence] in Blood by Automated countOrdered By: Brianda Harris on 06-03-2023 Nucleated RBC Auto Ql (Bld) 0.1 /100{WBC} 0-0.5 [facility] Platelet mean volume [Entiti c volume] in Blood by Automated countOrdered By: Brianda Harris on 06-03-2023 Platelet mean volume (Bld) [Entitic vol] 9.3 fL Normal 6.3-10.7 [facility] Comment on above: Performed By: #### C BC, CMP, ESR #### [address] Platelets [#/volume] in Bloo d by Automated countOrdered By: Brianda Harris on 06-03-2023 Platelets (Bld) [#/Vol] 251 10*3/uL Normal 150-450 [facility] Comment on above: Performed By: #### C BC, CMP, ESR #### [address] Potassium [Moles/volume] in Serum or PlasmaOrdered By: Brianda Harris on 06-03-2023 Potassium [Moles/Vol] 3.8 mmol/L Normal 3.5-5.1 [facility] Comment on above: Performed By: #### C BC, CMP, ESR #### [address] Protein [Mass/volume] in Ser um or PlasmaOrdered By: Brianda Harris on 06-03-2023 Protein [Mass/Vol] 7.1 g/dL Normal 6.4-8.9 [facility] Comment on above: Performed By: #### C BC, CMP, ESR #### [address] Serum globulin measurement b y calculation (mass/volume)Ordered By: Brianda Harris on Globulin (S) [Mass/Vol] 3.0 g/dL [facility] Comment on above: Performed By: #### C BC, CMP, ESR #### [address] Serum or plasma albumin/glob ulin mass ratioOrdered By: Brianda Harris on 06-03-2023 Albumin/Globulin [Mass ratio] 1.4 {ratio} [facility] Comment on above: Performed By: #### C LONG CMP, ESR #### [address] Serum or plasma anion gap de terminationOrdered By: Brianda Harris on 06-03-2023 Anion gap [Moles/Vol] 11.4 mmol/L Normal 6.0-15.0 [facility] Comment on above: Performed By: #### C BC, CMP, ESR #### [place] [address] [place] Sodium [Moles/volume] in Ser um or PlasmaOrdered By: Brianda Harris on 06-03-2023 Sodium [Moles/Vol] 135 mmol/L Low 136-145 [facility] Comment on above: Performed By: #### C BC, CMP, ESR #### [facility] [address] [place] [id number] [facility] Urea nitrogen [Mass/volume] in Serum or PlasmaOrdered By: Brianda Harris on 06-03-2023 Urea nitrogen [Mass/Vol] 24 mg/dL Normal 10-06 [facility] Comment on above: Performed By: #### C BC, CMP, ESR #### [facility] [address] [place] [id number] [facility] US carotid doppler BIon 05-13 US carotid doppler BI [facility] [place] [address] [place] [address] Ultrasound Report Signed Patient: Cely Barbosa MR#: [id number] : 1940 Acct:[id number] Age/Sex: 83 / F ADM Date: 05/25/23 Loc: [facility] Room: Type: [facility] Attending Dr: Blake [...] Blake Zhao M.D.05/31/2023 12:47 PM Dictation Location: [place] [address] Tech: Juliana Licona Transcribed By: TORIN 05/31/23 1247 Dictated By: Blake Zhao MD 05/31/23 1243 Signed By: 05/31/23 1247 Normal [facility] Alanine aminotransferase [En zymatic activity/volume] in Serum or PlasmaOrdered By: Brianda Harris on 12-15-2022 ALT [Catalytic activity/Vol] 16 U/L 7-52 [facility] Albumin [Mass/volume] in Ser um or Plasma by Bromocresol green (BCG) dye binding methoOrdered By: Brianda Harris on 12-15-2022 Albumin BCG dye [Mass/Vol] 3.8 g/dL 3.5-5.7 [facility] Alkaline phosphatase [Enzyma tic activity/volume] in Serum or PlasmaOrdered By: Brianda Harris on 12-15-2022 ALP [Catalytic activity/Vol] 60 U/L 34-104 [facility] Aspartate aminotransferase [ Enzymatic activity/volume] in Serum or PlasmaOrdered By: Brianda Harris on 12-15-2022 AST [Catalytic activity/Vol] 20 U/L 13-39 [facility] Basophils Auto (Bld) [#/Vol] Ordered By: Brianda Harris on 12-15-2022 Basophils (Bld) [#/Vol] 0.1 10*3/uL 0.0-0.2 [facility] Basophils/100 WBC Auto (Bld) Ordered By: Brianda Harris on 12-15-2022 Basophils/100 WBC (Bld) 0.6 % . [facility] Bilirubin.total [Mass/volume ] in Serum or PlasmaOrdered By: Brianda Harris on 12-15-2022 Bilirubin [Mass/Vol] 0.3 mg/dL 0.3-1.0 [facility] Calcium [Mass/volume] in Ser um or PlasmaOrdered By: Brianda Harris on 12-15-2022 Calcium [Mass/Vol] 9.3 mg/dL 8.6-10.3 [facility] Carbon dioxide, total [Moles /volume] in Serum or PlasmaOrdered By: Brianda Harris on 12-15-2022 CO2 [Moles/Vol] 26.6 mmol/L 21.0-31.0 [facility] Chloride [Moles/volume] in S sarwat or PlasmaOrdered By: Brianda Harris on 12-15-2022 Chloride [Moles/Vol] 102 mmol/L 98-107 [facility] Creatinine [Mass/volume] in Serum or PlasmaOrdered By: Brianda Harris on 12-15-2022 Creatinine [Mass/Vol] 0.87 mg/dL 0.60-1.20 [facility] Eosinophils Auto (Bld) [#/Vo l]Ordered By: Brianda Harris on 12-15-2022 Eosinophils (Bld) [#/Vol] 0.2 10*3/uL 0.0-0.45 [facility] Eosinophils/100 WBC Auto (Bl d)Ordered By: Brianda Harris on 12-15-2022 Eosinophils/100 WBC (Bld) 1.5 % . [facility] Erythrocyte distribution wid th Auto (RBC) [Ratio]Ordered By: Brianda Harris on 12-15-2022 Erythrocyte distribution width (RBC) [Ratio] 14.7 % 11.9-15.3 [facility] Erythrocyte sedimentation ra te by Photometric methodOrdered By: Brianda Harris on 12-15-2022 ESR Photometric method (Bld) [Velocity] 44 mm/hr 0-29 [facility] Globulin Calc (S) [Mass/Vol] Ordered By: Brianda Harris on 12-15-2022 Globulin (S) [Mass/Vol] 3.0 g/dL [facility] Glucose [Mass/volume] in Ser um or PlasmaOrdered By: Brianda Harris on 12-15-2022 Glucose [Mass/Vol] 69 mg/dL 70-100 [facility] Comment on above: ADA recommended refe rence rangeRandom Glucose Reference Range is dependent on time and content of last meal. Glucose of more than 200 mg/dL in a nonstressed, ambulatory subject supports the diagnosis of Diabetes Mellitus. Hematocrit Auto (Bld) [Volum e fraction]Ordered By: Brianda Harris on 12-15-2022 Hematocrit (Bld) [Volume fraction] 43.3 % 34.0-46.4 [facility] Hemoglobin [Mass/volume] in BloodOrdered By: Brianda Harris on 12-15-2022 Hemoglobin (Bld) [Mass/Vol] 14.5 g/dL 11.8-15.4 [facility] Leukocytes [#/volume] correc abena for nucleated erythrocytes in Blood by Automated counOrdered By: Brianda Harris on 12-15-2022 WBC corrected for nucl RBC Auto (Bld) [#/Vol] 11.5 10*3/uL 3.8-11.6 [facility] Lymphocytes Auto (Bld) [#/Vo l]Ordered By: Brianda Harris on 12-15-2022 Lymphocytes (Bld) [#/Vol] 2.9 10*3/uL 1.00-4.8 [facility] Lymphocytes/100 WBC Auto (Bl d)Ordered By: Brianda Harris on 12-15-2022 Lymphocytes/100 WBC (Bld) 25.0 % . [facility] MCH Auto (RBC) [Entitic mass ]Ordered By: Brianda Harris on 12-15-2022 MCH (RBC) [Entitic mass] 29.0 pg 24.7-34.3 [facility] MCHC Auto (RBC) [Mass/Vol]Or dered By: Brianda Harris on 12-15-2022 MCHC (RBC) [Mass/Vol] 33.5 g/dL 32.0-35.0 [facility] MCV Auto (RBC) [Entitic vol] Ordered By: Brianda Harris on 12-15-2022 MCV (RBC) [Entitic vol] 86.4 fL 80-100 [facility] Monocytes Auto (Bld) [#/Vol] Ordered By: Brianda Harris on 12-15-2022 Monocytes (Bld) [#/Vol] 1.2 10*3/uL 0.0-0.8 [facility] Monocytes/100 WBC Auto (Bld) Ordered By: Brianda Harris on 12-15-2022 Monocytes/100 WBC (Bld) 10.6 % . [facility] Neutrophils Auto (Bld) [#/Vo l]Ordered By: Brianda Harris on 12-15-2022 Neutrophils (Bld) [#/Vol] 7.1 10*3/uL 1.8-7.7 [facility] Neutrophils/100 WBC Auto (Bl d)Ordered By: Brianda Harris on 12-15-2022 Neutrophils/100 WBC (Bld) 62.3 % . [facility] No Panel InformationOrdered By: Brianda Harris on 12-15-2022 Estimated GFR (CKD-EPI) > 60.0 mL/Min [facility] Creatinine Clearance (Chem N/A [facility] Nucleated erythrocytes [Pres ence] in Blood by Automated countOrdered By: Brianda Harris on 12-15-2022 Nucleated RBC Auto Ql (Bld) 0.1 /100{WBC} 0-0.5 [facility] Platelet mean volume Auto (B ld) [Entitic vol]Ordered By: Brianda Harris on 12-15-2022 Platelet mean volume (Bld) [Entitic vol] 9.2 fL 6.3-10.7 [facility] Platelets Auto (Bld) [#/Vol] Ordered By: Brianda Harris on 12-15-2022 Platelets (Bld) [#/Vol] 305 10*3/uL 150-450 [facility] Potassium [Moles/volume] in Serum or PlasmaOrdered By: Brianda Harris on 12-15-2022 Potassium [Moles/Vol] 3.8 mmol/L 3.5-5.1 [facility] Protein [Mass/volume] in Ser um or PlasmaOrdered By: Brianda Harris on 12-15-2022 Protein [Mass/Vol] 6.8 g/dL 6.4-8.9 [facility] RBC Auto (Bld) [#/Vol]Ordere d By: Brianda Harris on 12-15-2022 RBC (Bld) [#/Vol] 5.01 10*6/uL 3.60-5.00 [facility] Serum or plasma albumin/glob ulin mass ratioOrdered By: Brianda Harris on 12-15-2022 Albumin/Globulin [Mass ratio] 1.3 {ratio} [facility] Serum or plasma anion gap de terminationOrdered By: Brianda Harris on 12-15-2022 Anion gap [Moles/Vol] 12.2 mmol/L 6.0-15.0 [facility] Sodium [Moles/volume] in Ser um or PlasmaOrdered By: Brianda Harris on 12-15-2022 Sodium [Moles/Vol] 137 mmol/L 136-145 [facility] Urea nitrogen [Mass/volume] in Serum or PlasmaOrdered By: Brianda Harris on 12-15-2022 Urea nitrogen [Mass/Vol] 27 mg/dL 7-25 [facility] WBC Auto (Bld) [#/Vol]Ordere d By: Brianda Harris on 12-15-2022 WBC (Bld) [#/Vol] 11.5 10*3/uL 3.8-11.6 [facility] CBC AUTO DIFFon 06-26-2022 BASO # 0.1 103/ul Normal 0.0-0.1 Comment on above: Performed By: #### C MADM, BNP, CMP #### [facility] [address] [place] [address] Dr. Marco Greer Basophils/100 WBC (Bld) 0.6 % Normal 0.2-2.0 [facility] Comment on above: Performed By: #### C MADM, BNP, CMP #### [facility] [address] [place] [address] Dr. Marco Greer EO # 0.2 103/ul Normal 0.0-0.7 [facility] Comment on above: Performed By: #### C MADM, BNP, CMP #### [facility] [address] [place] [address] Dr. Marco Greer Eosinophils/100 WBC (Bld) 2.1 % Normal 0.9-7.0 [facility] Comment on above: Performed By: #### C MADM, BNP, CMP #### [facility] [address] [place] [address] Dr. Marco Greer Erythrocyte distribution width (RBC) [Ratio] 17.3 % Critically high 11.0-15.0 Comment on above: Performed By: #### C MADM, BNP, CMP #### [facility] [address] [place] [address] Dr. Marco Greer Hematocrit (Bld) [Volume fraction] 40.2 % Normal 36.0-48.0 [facility] Comment on above: Performed By: #### C MADM, BNP, CMP #### [facility] [address] [place] [address] Dr. Marco Greer Hemoglobin (Bld) [Mass/Vol] 13.0 g/dL Normal 12.0-16.0 [facility] Comment on above: Performed By: #### C MADM, BNP, CMP #### [facility] [address] [place] [address] Dr. Marco Greer IG # 0.06 10e3/ul Critically high 0.00-0.03 Comment on above: Performed By: #### C MADM, BNP, CMP #### [facility] [address] [place] [address] Dr. Marco Greer IG % 0.6 % Critically high 0.0-0.5 Comment on above: Performed By: #### C MADM, BNP, CMP #### [facility] [address] [place] [address] Dr. Marco Greer LYMPH # 2.1 103/ul Normal 1.2-3.8 Comment on above: Performed By: #### C MADM, BNP, CMP #### [facility] [address] [place] [address] Dr. Marco Greer Lymphocytes/100 WBC (Bld) 19.6 % Critically low 20.5-60.0 Comment on above: Performed By: #### C MADM, BNP, CMP #### [facility] [address] [place] [address] Dr. Marco Greer MANUAL DIFF REQ NO Normal Comment on above: Performed By: #### C MADM, BNP, CMP #### [facility] [address] [place] [address] Dr. Marco Greer MCH (RBC) [Entitic mass] 27.3 pg Normal 26.7-34.0 Comment on above: Performed By: #### C MADM, BNP, CMP #### [facility] [address] [place] [address] Dr. Marco Greer MCHC (RBC) [Mass/Vol] 32.3 g/dL Normal 29.9-35.2 Comment on above: Performed By: #### C MADM, BNP, CMP #### [facility] [address] [place] [address] Dr. Marco Greer MCV (RBC) [Entitic vol] 84.5 fL Normal 81.0-99.0 Comment on above: Performed By: #### C MADM, BNP, CMP #### [facility] [address] [place] [address] Dr. Marco Greer MONO # 0.9 103/ul Critically high 0.3-0.8 Comment on above: Performed By: #### C MADM, BNP, CMP #### [facility] [address] [place] [address] Dr. Marco Greer Monocytes/100 WBC (Bld) 8.6 % Normal 1.7-12.0 [facility] Comment on above: Performed By: #### C MADM, BNP, CMP #### [facility] [address] [place] [address] Dr. Marco Greer NEUT # 7.4 103/ul Critically high 1.4-6.5 Comment on above: Performed By: #### C MADM, BNP, CMP #### [facility] [address] [place] [address] Dr. Marco Greer Neutrophils/100 WBC (Bld) 68.5 % Normal 43.0-75.0 [facility] Comment on above: Performed By: #### C MADM, BNP, CMP #### [facility] [address] [place] [address] Dr. Marco Greer Platelet mean volume (Bld) [Entitic vol] 9.6 fL Normal 9.5-13.5 [facility] Comment on above: Performed By: #### C MADM, BNP, CMP #### [facility] [address] [place] [address] Dr. Marco Greer PLT 283 103/ul Normal 150-450 [facility] Comment on above: Performed By: #### C MADM, BNP, CMP #### [facility] [address] [place] [address] Dr. Marco Greer RBC 4.76 106/ul Normal 4.20-5.40 [facility] Comment on above: Performed By: #### C MADM, BNP, CMP #### [facility] [address] [place], [place] [id number] Dr. Marco Greer WBC 10.7 103/ul Normal 4.0-11.0 [facility] Comment on above: Performed By: #### C MADM, BNP, CMP #### [facility] [address] [place] [address] Dr. Marco Greer FREE T3on 06-26-2022 FREE T3 2.47 pg/mlL Normal 2.18-3.98 [facility] Comment on above: Performed By: #### C MADM, BNP, CMP #### [facility] [address] [place] [address] Dr. Marco Greer FREE T4on 06-26-2022 Free T4 [Mass/Vol] 1.39 ng/dL Normal 0.76-1.46 Comment on above: Performed By: #### C MP #### [facility] [address] [place] [address] Dr. Marco Greer LIPID PROFILEon 06-26-2022 CHOL-HDL RATIO NORM SEE BELOW Normal [facility] Comment on above: Result Comment: 3.3 - 4.4 LOW RISK 4.4 - 7.1 AVERAGE RISK 7.1 - 11.0 MODERATE RISK >11.0 HIGH RISK Performed By: #### C MADM, BNP, CMP #### [facility] [address] [place] [address] Dr. Marco Greer Cholesterol [Mass/Vol] 234 mg/dL Critically high <=200 [facility] Comment on above: Performed By: #### C MADM, BNP, CMP #### [facility] [address] [place] [address] Dr. Marco Greer Cholesterol in HDL [Mass/Vol] 63 mg/dL Critically high 40-60 [facility] Comment on above: Performed By: #### C MADM, BNP, CMP #### [facility] [address] [place] [address] Dr. Marco Greer Cholesterol in LDL [Mass/Vol] 139.2 mg/dL Normal [facility] Comment on above: Performed By: #### C MADM, BNP, CMP #### [facility] [address] [address] [address] Marco Greer Cholesterol.total/Chol esterol in HDL [Mass ratio] 3.7 {ratio} Normal Comment on above: Performed By: #### C MADM, BNP, CMP #### [facility] [address] [address] [address] Marco Greer HDL NORMAL > or = 60 mg/dl - LO W CARDIOVASCULAR RISK <40 mg/dl - HIGH CARDIOVASCULAR RISK Normal Comment on above: Performed By: #### C MADM, BNP, CMP #### [facility] [address] [address] [address] Marco Greer LDL CALC NORMAL SEE BELOW Normal Comment on above: Result Comment: <100 mg/dl OPTIMAL 100 - 129 mg/dl NEAR OR ABOVE OPTIMAL 130 - 159 mg/dl BORDERLINE HIGH 160 - 189 mg/dl HIGH >190 mg/dl VERY HIGH Performed By: #### C MADM, BNP, CMP #### [facility] [address] [address] [address] Marco Greer Triglyceride [Mass/Vol] 159 mg/dL Critically high <=150 [facility] Comment on above: Performed By: #### C MADM, BNP, CMP #### [facility] [address] [address] [address] Marco Greer VLDL CALC 31.8 mg/dL Normal Comment on above: Performed By: #### C MADM, BNP, CMP #### [facility] [address] [place] [address] Dr. Marco Greer LIVER PROFILEon 06-26-2022 Albumin [Mass/Vol] 3.1 g/dL Critically low 3.4-5.0 Th e [facility] Comment on above: Performed By: #### C MADM, BNP, CMP #### [facility] [address] [place] [address] Dr. Marco Greer Albumin/Globulin [Mass ratio] 0.7 {ratio} Normal Comment on above: Performed By: #### C MADM, BNP, CMP #### [facility] [address] [place] [address] Dr. Marco Greer ALP [Catalytic activity/Vol] 75 U/L Normal 46-116 Comment on above: Performed By: #### C MADM, BNP, CMP #### [facility] [address] [place] [address] Dr. Marco Greer ALT [Catalytic activity/Vol] 28 U/L Normal 14-59 Comment on above: Performed By: #### C MADM, BNP, CMP #### [facility] [address] [place] [address] Dr. Marco Greer AST [Catalytic activity/Vol] 22 U/L Normal 15-37 Comment on above: Performed By: #### C MADM, BNP, CMP #### [facility] [address] [place] [address] Dr. Marco Greer BILI, CONJUGATED 0.1 mg/dL Normal 0.0-0.2 Comment on above: Performed By: #### C MADM, BNP, CMP #### [facility] [address] [place] [address] Dr. Marco Greer Bilirubin [Mass/Vol] 0.3 mg/dL Normal 0.2-1.0 Comment on above: Performed By: #### C MADM, BNP, CMP #### [facility] [address] [place] [address] Dr. Marco Greer Globulin (S) [Mass/Vol] 4.3 g/dL Normal Comment on above: Performed By: #### C MADM, BNP, CMP #### [facility] [address] [place] [address] Dr. Marco Greer Protein [Mass/Vol] 7.4 g/dL Normal 6.4-8.2 Comment on above: Performed By: #### C MADM, BNP, CMP #### [facility] [address] [place] [address] Dr. Marco Greer PROF CHEM 8 (BAS METB)on Anion gap [Moles/Vol] 14.3 mmol/L Normal [facility] Comment on above: Performed By: #### F T3, TSH, BMP, LIVER, LIPID #### [facility] [address] [address] [address] Marco Greer Calcium [Mass/Vol] 9.2 mg/dL Normal 8.5-10.1 [facility] Comment on above: Performed By: #### F T3, TSH, BMP, LIVER, LIPID #### [facility] [address] [address] [address] Marco Greer Chloride [Moles/Vol] 100 mmol/L Normal 98-107 [facility] Comment on above: Performed By: #### F T3, TSH, BMP, LIVER, LIPID #### [facility] [address] [place] [address] Dr. Marco Greer CO2 [Moles/Vol] 27.2 mmol/L Normal 21.0-32.0 Comment on above: Performed By: #### F T3, TSH, BMP, LIVER, LIPID #### [facility] [address] [place] [address] Dr. Marco Greer Creatinine [Mass/Vol] 0.94 mg/dL Normal 0.55-1.02 [facility] Comment on above: Performed By: #### F T3, TSH, BMP, LIVER, LIPID #### [facility] [address] [place] [address] Dr. Marco Greer EGFR-AF NIGERIEN >60 Normal >=60 [facility] Comment on above: Performed By: #### F T3, TSH, BMP, LIVER, LIPID #### [facility] [address] [place] [address] Dr. Marco Greer EGFR-NON AF NIGERIEN 57 mL/min/1.73m2 Critically low >=60 [facility] Comment on above: Performed By: #### F T3, TSH, BMP, LIVER, LIPID #### [facility] [address] [place] [address] Dr. Marco Greer Glucose [Mass/Vol] 84 mg/dL Normal 74-106 [facility] Comment on above: Performed By: #### F T3, TSH, BMP, LIVER, LIPID #### [facility] [address] [place] [address] Dr. Marco Greer Potassium [Moles/Vol] 4.5 mmol/L Normal 3.5-5.1 Comment on above: Performed By: #### F T3, TSH, BMP, LIVER, LIPID #### [facility] [address] [place] [address] Dr. Marco Greer Sodium [Moles/Vol] 137 mmol/L Normal 136-145 Comment on above: Performed By: #### F T3, TSH, BMP, LIVER, LIPID #### [facility] [address] [place] [address] Dr. Marco Greer Urea nitrogen [Mass/Vol] 21.0 mg/dL Critically high 7.0-18.0 Comment on above: Performed By: #### F T3, TSH, BMP, LIVER, LIPID #### [facility] [address] [place] [address] Dr. Marco Greer Urea nitrogen/Creatinine [Mass ratio] 22.3 mg/mg Normal Comment on above: Performed By: #### F T3, TSH, BMP, LIVER, LIPID #### [facility] [address] [place] [address] Dr. Marco Greer SED RATE [facility] 2022 SED RATE 56 mm/hr Critically high <=30 Comment on above: Performed By: #### C MP #### [facility] [address] [place] [address] Dr. Marco Greer TSHon 06-26-2022 TSH 0.286 uIU/mL Critically low 0.358-3.74 0 Comment on above: Performed By: #### C MADM, BNP, CMP #### [facility] [address] [place] [address] Dr. Marco Greer PROF CHEM 8 (BAS METB)on Anion gap [Moles/Vol] 14.2 mmol/L Normal [facility] Comment on above: Performed By: #### C MADM, BNP, CMP #### [facility] [address] [address] [address] Marco Greer Calcium [Mass/Vol] 9.0 mg/dL Normal 8.5-10.1 Comment on above: Performed By: #### C MADM, BNP, CMP #### [facility] [address] [address] [address] Marco Greer Chloride [Moles/Vol] 102 mmol/L Normal 98-107 Comment on above: Performed By: #### C MADM, BNP, CMP #### [facility] [address] [address] [address] Marco Greer CO2 [Moles/Vol] 27.3 mmol/L Normal 21.0-32.0 Comment on above: Performed By: #### C MADM, BNP, CMP #### [facility] [address] [place] [address] Dr. Marco Greer Creatinine [Mass/Vol] 1.18 mg/dL Critically high 0.55-1.02 Comment on above: Performed By: #### C MADM, BNP, CMP #### [facility] [address] [address] [address] Marco Greer EGFR-AF NIGERIEN 53 mL/min/1.73m2 Critically low >=60 Comment on above: Performed By: #### C MADM, BNP, CMP #### [facility] [address] [address] [address] Marco Greer EGFR-NON AF NIGERIEN 44 mL/min/1.73m2 Critically low >=60 Comment on above: Performed By: #### C MADM, BNP, CMP #### [facility] [address] [address] [address] Marco Greer Glucose [Mass/Vol] 115 mg/dL Critically high 74-106 [facility] Comment on above: Performed By: #### C MADM, BNP, CMP #### [facility] [address] [address] [address] Marco Greer Potassium [Moles/Vol] 3.5 mmol/L Normal 3.5-5.1 Comment on above: Performed By: #### C MADM, BNP, CMP #### [facility] [address] [address] [address] Marco Greer Sodium [Moles/Vol] 140 mmol/L Normal 136-145 Comment on above: Performed By: #### C MADM, BNP, CMP #### [facility] [address] [address] [address] Marco Greer Urea nitrogen [Mass/Vol] 31.0 mg/dL Critically high 7.0-18.0 Comment on above: Performed By: #### C MADM, BNP, CMP #### [facility] [address] [address] [address] Marco Greer Urea nitrogen/Creatinine [Mass ratio] 26.3 mg/mg Normal Comment on above: Performed By: #### C MADM, BNP, CMP #### [facility] [address] [place] [address] Dr. Marco Greer Cardiovasc Arrhythmia Result son 04-01-2022 Cardiovasc Arrhythmia Results Reason For Visit Event Monitor: Costa is only wearing monitor for 5 days CELY is here for the application of a 30 day event monitor in office., Diagnosis: lightheaded and PVC Ordering Physician: Dr. Miri Hill MD Enrollment sent to: [employer] Monitor number [id number] applied. Procedure Date I received for dictation [...] Future Appointments Date/TimeProviderSpecialty Site 06/19/2022 03:00 Miri Gray, [id number] [facility] [address] 250 DO Signatures Electronically signed by : Radha Copeland MD; Apr 13 2022 9:10AM EST (Author) Normal [facility] Office Visit (Cardiology)on 03-27-2022 Follow-up visit Diagnoses/Problems [...] days; Status:Active - Perform Order,Retrospective Authorization; Requested for:27Mar2022; SocHx: Former smoker Tobacco Use Screening; Status:Complete; [...] Recorded: 27Mar2022 11:52AM Heart Rate60, L Radial [id number], LUE, Sitting Cdkhrbroz81, LUE, Sitting Height5 ft 4 in Xotmdv604 lb BMI Exrrvfflgf49.43 kg/m2 BSA Calculated1.57 Tobacco Useb) No PHQ-2 [...] office re (more content not included)... Normal [place] Tobacco Screening.on 023 Adult depression screening assessment No [facility] 250 DO Work Phone: Fall risk assessment a) No falls within the last year [facility] 250 DO Work Phone: Tobacco use status CPHS b) No [facility] 250 DO Work Phone: CBC AUTO DIFFon 03-11-2022 BASO # 0.1 103/ul Normal 0.0-0.1 Comment on above: Performed By: #### C MADM, BNP, CMP #### [facility] [address] [place], [place] [address] Dr. Marco Greer Basophils/100 WBC (Bld) 0.9 % Normal 0.2-2.0 [facility] Comment on above: Performed By: #### C MADM, BNP, CMP #### [facility] [address] [place], [place] [address] Dr. Marco Greer EO # 0.9 103/ul Critically high 0.0-0.7 [facility] Comment on above: Performed By: #### C MADM, BNP, CMP #### [facility] [address] [place] [address] Dr. Marco Greer Eosinophils/100 WBC (Bld) 9.3 % Critically high 0.9-7.0 [facility] Comment on above: Performed By: #### C MADM, BNP, CMP #### [facility] [address] [place] [address] Dr. Marco Greer Erythrocyte distribution width (RBC) [Ratio] 15.5 % Critically high 11.0-15.0 [facility] Comment on above: Performed By: #### C MADM, BNP, CMP #### [facility] [address] [place] [address] Dr. Marco Greer Hematocrit (Bld) [Volume fraction] 37.4 % Normal 36.0-48.0 [facility] Comment on above: Performed By: #### C MADM, BNP, CMP #### [facility] [address] [place] [address] Dr. Marco Greer Hemoglobin (Bld) [Mass/Vol] 11.9 g/dL Critically low 12.0-16.0 [facility] Comment on above: Performed By: #### C MADM, BNP, CMP #### [facility] [address] [place] [address] Dr. Marco Greer IG # 0.03 10e3/ul Normal 0.00-0.03 [facility] Comment on above: Performed By: #### C MADM, BNP, CMP #### [facility] [address] [place] [address] Dr. Marco Greer IG % 0.3 % Normal 0.0-0.5 [facility] Comment on above: Performed By: #### C MADM, BNP, CMP #### [facility] [address] [place] [address] Dr. Marco Greer LYMPH # 2.0 103/ul Normal 1.2-3.8 [facility] Comment on above: Performed By: #### C MADM, BNP, CMP #### [facility] [address] [place] [address] Dr. Marco Greer Lymphocytes/100 WBC (Bld) 20.9 % Normal 20.5-60.0 [facility] Comment on above: Performed By: #### C MADM, BNP, CMP #### [facility] [address] [place] [address] Dr. Marco Greer MANUAL DIFF REQ NO Normal [facility] Comment on above: Performed By: #### C MADM, BNP, CMP #### [facility] [address] [place] [address] Dr. Marco Greer MCH (RBC) [Entitic mass] 27.2 pg Normal 26.7-34.0 [facility] Comment on above: Performed By: #### C MADM, BNP, CMP #### [facility] [address] [place] [address] Dr. Marco Greer MCHC (RBC) [Mass/Vol] 31.8 g/dL Normal 29.9-35.2 [facility] Comment on above: Performed By: #### C MADM, BNP, CMP #### [facility] [address] [place] [address] Dr. Marco Greer MCV (RBC) [Entitic vol] 85.6 fL Normal 81.0-99.0 [facility] Comment on above: Performed By: #### C MADM, BNP, CMP #### [facility] [address] [place] [address] Dr. Marco Greer MONO # 0.9 103/ul Critically high 0.3-0.8 [facility] Comment on above: Performed By: #### C MADM, BNP, CMP #### [facility] [address] [place] [address] Dr. Marco Greer Monocytes/100 WBC (Bld) 9.1 % Normal 1.7-12.0 [facility] Comment on above: Performed By: #### C MADM, BNP, CMP #### [facility] [address] [place] [address] Dr. Marco Greer NEUT # 5.6 103/ul Normal 1.4-6.5 [facility] Comment on above: Performed By: #### C MADM, BNP, CMP #### [facility] [address] [place] [address] Dr. Marco Greer Neutrophils/100 WBC (Bld) 59.5 % Normal 43.0-75.0 [facility] Comment on above: Performed By: #### C MADM, BNP, CMP #### [facility] [address] [place] [address] Dr. Marco Greer Platelet mean volume (Bld) [Entitic vol] 9.9 fL Normal 9.5-13.5 [facility] Comment on above: Performed By: #### C MADM, BNP, CMP #### [facility] [address] [place] [address] Dr. Marco Greer PLT 343 103/ul Normal 150-450 [facility] Comment on above: Performed By: #### C MADM, BNP, CMP #### [facility] [address] [place] [address] Dr. Marco Greer RBC 4.37 106/ul Normal 4.20-5.40 [facility] Comment on above: Performed By: #### C MADM, BNP, CMP #### [facility] [address] [place] [address] Dr. Marco Greer WBC 9.4 103/ul Normal 4.0-11.0 [facility] Comment on above: Performed By: #### C MADM, BNP, CMP #### [facility] [address] [place] [address] Dr. Marco Greer CRPon 03-11-2022 CRP [Mass/Vol] mg/L Normal <=1.0 [facility] Comment on above: Performed By: #### C MP #### [facility] [address] [place] [address] Dr. Marco Greer FREE T3on 03-11-2022 FREE T3 2.74 pg/mlL Normal 2.18-3.98 [facility] Comment on above: Performed By: #### C MP #### [facility] [address] [place] [address] Dr. Marco Greer FREE T4on 03-11-2022 Free T4 [Mass/Vol] 1.41 ng/dL Normal 0.76-1.46 Comment on above: Performed By: #### C MADM, BNP, CMP #### [facility] [address] [address] [address] Marco Greer LIVER PROFILEon 03-11-2022 Albumin [Mass/Vol] 3.0 g/dL Critically low 3.4-5.0 Th e [facility] Comment on above: Performed By: #### C MP #### [facility] [address] [place] [address] Dr. Marco Greer Albumin/Globulin [Mass ratio] 0.9 {ratio} Normal Comment on above: Performed By: #### C MP #### [facility] [address] [place] [address] Dr. Marco Greer ALP [Catalytic activity/Vol] 89 U/L Normal 46-116 Comment on above: Performed By: #### C MP #### [facility] [address] [place] [address] Dr. Marco Greer ALT [Catalytic activity/Vol] 19 U/L Normal 14-59 Comment on above: Performed By: #### C MP #### [facility] [address] [place] [address] Dr. Marco Greer AST [Catalytic activity/Vol] 22 U/L Normal 15-37 Comment on above: Performed By: #### C MP #### [facility] [address] [place] [address] Dr. Marco Greer BILI, CONJUGATED 0.1 mg/dL Normal 0.0-0.2 Comment on above: Performed By: #### C MP #### [facility] [address] [place] [address] Dr. Marco Greer Bilirubin [Mass/Vol] 0.3 mg/dL Normal 0.2-1.0 Comment on above: Performed By: #### C MP #### [facility] [address] [place] [address] Dr. Marco Greer Globulin (S) [Mass/Vol] 3.5 g/dL Normal Comment on above: Performed By: #### C MP #### [facility] [address] [address] [address] Marco Greer Protein [Mass/Vol] 6.5 g/dL Normal 6.4-8.2 Comment on above: Performed By: #### C MP #### [facility] [address] [address] [address] Marco Greer PROF CHEM 8 (BAS METB)on Anion gap [Moles/Vol] 11.3 mmol/L Normal [facility] Comment on above: Performed By: #### C MP #### [facility] [address] [place] [address] Dr. Marco Greer Calcium [Mass/Vol] 8.7 mg/dL Normal 8.5-10.1 Comment on above: Performed By: #### C MP #### [facility] [address] [place] [address] Dr. Marco Greer Chloride [Moles/Vol] 103 mmol/L Normal 98-107 [facility] Comment on above: Performed By: #### C MP #### [facility] [address] [place] [address] Dr. Marco Greer CO2 [Moles/Vol] 26.6 mmol/L Normal 21.0-32.0 [facility] Comment on above: Performed By: #### C MP #### [facility] [address] [place] [address] Dr. Marco Greer Creatinine [Mass/Vol] 0.88 mg/dL Normal 0.55-1.02 Comment on above: Performed By: #### C MP #### [facility] [address] [place] [address] Dr. Marco Greer EGFR-AF NIGERIEN >60 Normal >=60 Comment on above: Performed By: #### C MP #### [facility] [address] [place] [address] Dr. Marco Greer EGFR-NON AF NIGERIEN >60 Normal >=60 Comment on above: Performed By: #### C MP #### [facility] [address] [address] [address] Marco Greer Glucose [Mass/Vol] 91 mg/dL Normal 74-106 Comment on above: Performed By: #### C MP #### [facility] [address] [address] [address] Marco Greer Potassium [Moles/Vol] 3.9 mmol/L Normal 3.5-5.1 Comment on above: Performed By: #### C MP #### [facility] [address] [place] [address] Dr. Marco Greer Sodium [Moles/Vol] 137 mmol/L Normal 136-145 Comment on above: Performed By: #### C MP #### [facility] [address] [place] [address] Dr. Marco Greer Urea nitrogen [Mass/Vol] 20.0 mg/dL Critically high 7.0-18.0 Comment on above: Performed By: #### C MP #### [facility] [address] [place] [address] Dr. Marco Greer Urea nitrogen/Creatinine [Mass ratio] 22.7 mg/mg Normal Comment on above: Performed By: #### C MP #### [facility] [address] [place] [address] Dr. Marco Greer SED RATE [facility] 2021 SED RATE 60 mm/hr Critically high <=30 [facility] Comment on above: Performed By: #### C MADM, BNP, CMP #### [facility] [address] [place] [address] Dr. Marco Greer TSHon 03-11-2022 TSH 0.600 uIU/mL Normal 0.358-3.74 0 Comment on above: Performed By: #### C MP #### [facility] [address] [place] [address] Dr. Marco Greer Albumin [Mass/volume] in Ser um or PlasmaOrdered By: Brianda Harris on 03-04-2022 Albumin [Mass/Vol] 3.1 g/dL 3.2-5.5 [facility] Basophils Auto (Bld) [#/Vol] Ordered By: Brianda Harris on 03-04-2022 Basophils (Bld) [#/Vol] 0.1 10*3/uL 0.0-0.2 [facility] Basophils/100 WBC Auto (Bld) Ordered By: Brianda Harris on 03-04-2022 Basophils/100 WBC (Bld) 0.5 % . [facility] Creatinine and Glomerular fi ltration rate.predicted panel (S/P/Bld)Ordered By: Brianda Harris on 03-04-2022 Creatinine [Mass/Vol] 0.88 mg/dL 0.44-1.03 [facility] Eosinophils Auto (Bld) [#/Vo l]Ordered By: Brianda Harris on 03-04-2022 Eosinophils (Bld) [#/Vol] 0.0 10*3/uL 0.0-0.45 [facility] Eosinophils/100 WBC Auto (Bl d)Ordered By: Brianda Harris on 03-04-2022 Eosinophils/100 WBC (Bld) 0.4 % . [facility] Erythrocyte distribution wid th Auto (RBC) [Ratio]Ordered By: Brianda Harris on 03-04-2022 Erythrocyte distribution width (RBC) [Ratio] 15.7 % 11.9-15.3 [facility] Erythrocyte sedimentation ra te by Photometric methodOrdered By: Brianda Harris on 03-04-2022 ESR Photometric method (Bld) [Velocity] 59 mm/hr 0-29 [facility] Estimated glomerular filtrat ion rate (GFR) non- AmericanOrdered By: Brianda Harris on 03-04-2022 GFR/1.73 sq M.predicted among non-blacks MDRD (S/P/Bld) [Vol rate/Area] > 60 mL/Min [facility] Globulin Calc (S) [Mass/Vol] Ordered By: Brianda Harris on 03-04-2022 Globulin (S) [Mass/Vol] 3.7 g/dL [facility] Hematocrit Auto (Bld) [Volum e fraction]Ordered By: Brianda Harris on 03-04-2022 Hematocrit (Bld) [Volume fraction] 36.5 % 34.0-46.4 [facility] Hemoglobin [Mass/volume] in BloodOrdered By: Brianda Harris on 03-04-2022 Hemoglobin (Bld) [Mass/Vol] 11.7 g/dL 11.8-15.4 [facility] Leukocytes [#/volume] correc abena for nucleated erythrocytes in Blood by Automated counOrdered By: Brianda Harris on 03-04-2022 WBC corrected for nucl RBC Auto (Bld) [#/Vol] 10.4 10*3/uL 3.8-11.6 [facility] Lymphocytes Auto (Bld) [#/Vo l]Ordered By: Brianda Harris on 03-04-2022 Lymphocytes (Bld) [#/Vol] 0.9 10*3/uL 1.00-4.8 [facility] Lymphocytes/100 WBC Auto (Bl d)Ordered By: Brianda Harris on 03-04-2022 Lymphocytes/100 WBC (Bld) 8.5 % . [facility] MCH Auto (RBC) [Entitic mass ]Ordered By: Brianda Harris on 03-04-2022 MCH (RBC) [Entitic mass] 26.7 pg 24.7-34.3 [facility] MCHC Auto (RBC) [Mass/Vol]Or dered By: Brianda Harris on 03-04-2022 MCHC (RBC) [Mass/Vol] 31.9 g/dL 32.0-35.0 [facility] MCV Auto (RBC) [Entitic vol] Ordered By: Brianda Harris on 03-04-2022 MCV (RBC) [Entitic vol] 83.8 fL 80-100 [facility] Monocytes Auto (Bld) [#/Vol] Ordered By: Brianda Harris on 03-04-2022 Monocytes (Bld) [#/Vol] 0.2 10*3/uL 0.0-0.8 [facility] Monocytes/100 WBC Auto (Bld) Ordered By: Brianda Harris on 03-04-2022 Monocytes/100 WBC (Bld) 2.3 % . [facility] Neutrophils Auto (Bld) [#/Vo l]Ordered By: Brianda Harris on 03-04-2022 Neutrophils (Bld) [#/Vol] 9.2 10*3/uL 1.8-7.7 [facility] Neutrophils/100 WBC Auto (Bl d)Ordered By: Brianda Harris on 03-04-2022 Neutrophils/100 WBC (Bld) 88.3 % . [facility] No Panel InformationOrdered By: Brianda Harris on 03-04-2022 Estimated GFR () > 60 mL/Min [facility] Comment on above: GFR estimated refere nce range: According to KDOQI guidelines, <60 ml/min/1.73m2 is sufficient to diagnose a patient with chronic kidney disease. Pharmacy Creatinine Clearance (Chem N/A [facility] Nucleated erythrocytes [Pres ence] in Blood by Automated countOrdered By: Brianda Harris on 03-04-2022 Nucleated RBC Auto Ql (Bld) 0.0 /100{WBC} 0-0.5 [facility] Platelet mean volume Auto (B ld) [Entitic vol]Ordered By: Brianda Harris on 03-04-2022 Platelet mean volume (Bld) [Entitic vol] 8.5 fL 6.3-10.7 [facility] Platelets Auto (Bld) [#/Vol] Ordered By: Brianda Harris on 03-04-2022 Platelets (Bld) [#/Vol] 395 10*3/uL 150-450 [facility] Protein [Mass/volume] in Ser um or PlasmaOrdered By: Brianda Harris on 03-04-2022 Protein [Mass/Vol] 6.8 g/dL 6.1-7.9 [facility] RBC Auto (Bld) [#/Vol]Ordere d By: Brianda Harris on 03-04-2022 RBC (Bld) [#/Vol] 4.36 10*6/uL 3.60-5.00 [facility] Serum or plasma alanine kenny otransferase measurement without P-5'-P (enzymatic activiOrdered By: Brianda Harris on 03-04-2022 ALT No additional P-5'-P [Catalytic activity/Vol] 25 U/L 10-60 [facility] Serum or plasma albumin/glob ulin mass ratioOrdered By: Brianda Harris on 03-04-2022 Albumin/Globulin [Mass ratio] 0.8 {ratio} [facility] Serum or plasma alkaline lisy sphatase measurement (enzymatic activity/volume)Ordered By: Brianda Harris on 03-04-2022 ALP [Catalytic activity/Vol] 87 U/L 32-92 [facility] Serum or plasma anion gap de terminationOrdered By: Brianda Harris on 03-04-2022 Anion gap [Moles/Vol] 12.6 mmol/L 6.0-15.0 [facility] Serum or plasma aspartate am inotransferase measurement (enzymatic activity/volume)Ordered By: Brianda Harris on 03-04-2022 AST [Catalytic activity/Vol] 29 U/L 10-42 [facility] Serum or plasma calcium rashmi urement (mass/volume)Ordered By: Brianda Harris on 03-04-2022 Calcium [Mass/Vol] 8.9 mg/dL 8.2-10.2 [facility] Serum or plasma chloride reece surement (moles/volume)Ordered By: Brianda Harris on 03-04-2022 Chloride [Moles/Vol] 98 mmol/L 95-114 [facility] Serum or plasma glucose rashmi urement (mass/volume)Ordered By: Brianda Harris on 03-04-2022 Glucose [Mass/Vol] 109 mg/dL 70-100 [facility] Comment on above: ADA recommended refe rence rangeRandom Glucose Reference Range is dependent on time and content of last meal. Glucose of more than 200 mg/dL in a nonstressed, ambulatory subject supports the diagnosis of Diabetes Mellitus. Serum or plasma potassium me asurement (moles/volume)Ordered By: Brianda Harris on 03-04-2022 Potassium [Moles/Vol] 3.6 mmol/L 3.5-5.1 [facility] Serum or plasma sodium measu rement (moles/volume)Ordered By: Brianda Harris on 03-04-2022 Sodium [Moles/Vol] 131 mmol/L 136-146 [facility] Serum or plasma total biliru bin measurement (mass/volume)Ordered By: Brianda Harris on 03-04-2022 Bilirubin [Mass/Vol] 0.5 mg/dL 0.3-1.2 [facility] Serum or plasma total carbon dioxide measurement (moles/volume)Ordered By: Brianda Harris on 03-04-2022 CO2 [Moles/Vol] 24.0 mmol/L 22.0-30.0 [facility] Serum or plasma urea nitroge n measurement (mass/volume)Ordered By: Brianda Harris on 03-04-2022 Urea nitrogen [Mass/Vol] 15 mg/dL 9- [facility] WBC Auto (Bld) [#/Vol]Ordere d By: Brianda Harris on 03-04-2022 WBC (Bld) [#/Vol] 10.4 10*3/uL 3.8-11.6 [facility] Electrocardiogram 12 Leadon 02-27-2022 Electrocardiogram 12 Lead Ventricular Rate 61 Atrial Rate 61 P-R Interval 172 QRS Duration 90 Q-T Interval 446 QTC Calculation(Bazett) 448 P [place] 64 R [place] 27 T [place] 95 QRS Count 11 Q Onset 221 [...] Gaona ([id number]) on 03/02/2022 2:16:11 PM Normal [facility] No Panel Informationon 02-27 [email or web address] ?RetrieveTestByDateTime?Pa qznhwRX=[id number]&Date=&Time=13%3a11%3a48% 3a00&TestType=ECG&Site=1&O utputType=PDF&Ext=PDF [facility] 250 DO Work Phone: Sinus rhythm with occasional Premature ventricular complexes [facility] 250 DO Work Phone: Abnormal [facility] 250 DO Work Phone: [phone] [facility] 250 DO Work Phone: [phone] [facility] 250 DO Work Phone: [phone] 1 [facility] 250 DO Work Phone: 135 1 [facility] 250 DO Work Phone: 221 1 [facility] 250 DO Work Phone: 11 1 [facility]ad[facility] 250 DO Work Phone: 95 1 [facility] 250 DO Work Phone: 27 1 [facility] 250 DO Work Phone: 64 1 [facility] 250 DO Work Phone: 446 1 [facility] 250 DO Work Phone: 90 1 [facility] 250 DO Work Phone: 172 1 [facility] 250 DO Work Phone: 61 1 [facility] 250 DO Work Phone: Office Visit (Cardiac Surger y)on 02-27-2022 Follow-up visit Diagnoses/Problems Assessed CAD (coronary artery disease) (414.00) (I25.10) S/P CABG x 3 (V45.81) (Z95.1) Orders CAD (coronary artery disease) Electrocardiogram 12 Lead; Status:Complete; Done: [id number] 01:23PM S/P CABG x 3 Cardiac Rehab Referral Evaluation and Treatment BELLVUE Status: Hold For - Scheduling,Retrospective By Protocol Authorization Requested for: [id number] Agreement : I agree to have my [...] 1 tablet 2x/day. Vitals Vital Signs Recorded: [id number] 01:19PM Heart Rate61 Uerajffb571, LUE, Sitting Nxuzrhwih22, LUE, Sitting Height5 ft 4 in Zgnjbq058 lb 2 oz BMI Pxttxjufgk02.79 kg/m2 BSA Calculated1.58 Tobacco Useb) No Falls Screening (Age 18+)a) No falls within the last year O2 Yjpnlyvewt32, RA Pain Scale0/10 Physical Exam On examination [...] link to view the study images Normal [facility] [address] [place] Work Phone: TH CHEST 2 VIEW PA AND LATon 02-27-2022 TH CHEST 2 VIEW PA AND LAT Patient Name: CELY BARBOSA STUDY: TH CHEST 2 VIEW PA AND LAT; 02/27/2022 11:28 am INDICATION: P/OP Z95.1: S/P CABG x 3. COMPARISON: Chest radiograph 01/24/2022 ACCESSION NUMBER(S): [id number] ORDERING CLINICIAN: ALBIN PIERCE FINDINGS: PA and [...] as stated. This study was interpreted at [facility], [place], [place]. Electronically signed by: Keagan ROSARIO MD Normal [facility] Tobacco Screening.on 022 Fall risk assessment a) No falls within the last year -[facility] [address] [place] Work Phone: Tobacco use status [facility] b) No [facility] [address] [place] Work Phone: Creatinine and Glomerular fi ltration rate.predicted panel (S/P/Bld)Ordered By: Kvng Rmoo on 02-24-2022 Creatinine [Mass/Vol] 0.81 mg/dL 0.44-1.03 [facility] Estimated glomerular filtrat ion rate (GFR) non- AmericanOrdered By: Kvng Romo on 02-24-2022 GFR/1.73 sq M.predicted among non-blacks MDRD (S/P/Bld) [Vol rate/Area] > 60 mL/Min [facility] No Panel InformationOrdered By: Kvng Romo on 02-24-2022 Estimated GFR () > 60 mL/Min [facility] Comment on above: GFR estimated refere nce range: According to KDOQI guidelines, <60 ml/min/1.73m2 is sufficient to diagnose a patient with chronic kidney disease. Pharmacy Creatinine Clearance (Chem N/A [facility] Serum or plasma anion gap de terminationOrdered By: Kvng Romo on 02-24-2022 Anion gap [Moles/Vol] 15.0 mmol/L 6.0-15.0 [facility] Serum or plasma calcium rashmi urement (mass/volume)Ordered By: Kvng Romo on 02-24-2022 Calcium [Mass/Vol] 9.1 mg/dL 8.2-10.2 [facility] Serum or plasma chloride reece surement (moles/volume)Ordered By: Kvng Romo on 02-24-2022 Chloride [Moles/Vol] 96 mmol/L 95-114 [facility] Serum or plasma glucose rashmi urement (mass/volume)Ordered By: Kvng Romo on 02-24-2022 Glucose [Mass/Vol] 77 mg/dL 70-100 [facility] Comment on above: ADA recommended refe rence rangeRandom Glucose Reference Range is dependent on time and content of last meal. Glucose of more than 200 mg/dL in a nonstressed, ambulatory subject supports the diagnosis of Diabetes Mellitus. Serum or plasma potassium me asurement (moles/volume)Ordered By: Kvng Romo on 02-24-2022 Potassium [Moles/Vol] 3.9 mmol/L 3.5-5.1 [facility] Serum or plasma sodium measu rement (moles/volume)Ordered By: Kvng Romo on 02-24-2022 Sodium [Moles/Vol] 129 mmol/L 136-146 [facility] Serum or plasma total carbon dioxide measurement (moles/volume)Ordered By: Kvng Romo on 02-24-2022 CO2 [Moles/Vol] 21.9 mmol/L 22.0-30.0 [facility] Serum or plasma urea nitroge n measurement (mass/volume)Ordered By: Kvng Romo on 02-24-2022 Urea nitrogen [Mass/Vol] 10 mg/dL 9- [facility] Initial Visit (Nephrology)on 02-17-2022 Initial Visit (Nephrology) Diagnoses/Problems Benign essential hypertension (401.1) (I10) S/P CABG x 3 (V45.81) (Z95.1) 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 She was seen also secondary to hyponatremia she has chronic hyponatremia per records with baseline sodium per the records of 04 12- She was on urea packets, Lasix as needed and a sodium bicarbonate when she was in the hospital in [place] In December a urine osmolality was measured [...] MOUTH DA (more content not included)... Normal [facility] Tobacco Screening.on 022 Fall risk assessment a) No falls within the last year [facility] Work Phone: Tobacco use status [facility] b) No [facility] Work Phone: Office Visit (Cardiology)on [...] IO EKG Electrocardiogram- 12 Lead; Status:Complete; Done: [id number] CAD (coronary artery disease), S/P CABG x 3 Renew: Aspirin 81 MG Oral Tablet Delayed Release; TAKE 1 TABLET DAILY Renew: Atorvastatin Calcium 80 MG Oral Tablet; TAKE 1 TABLET BY MOUTH DAILY SocHx: Former smoker Tobacco Use Screening; Status:Complete; Done: [id number] Patient Instructions Please bring all medicines, vitamins, [...] EST (Author) Appendix #1 Vital Signs Patient: MARISOL BARBOSALOU; : 1940; Recorded: [id number] 11:46AMRecorded: 61Lyc1915 11:20AMRecorded: 46Evk1757 11:15AM Qnratnwm128, LUE, Si (more content not included)... Normal [facility] Tobacco Screening.on 022 Adult depression screening assessment No [facility] 250 DO Work Phone: Fall risk assessment b) One or more fall s in the last year [facility] 250 DO Work Phone: Tobacco use status [facility] b) No [facility] [employer] 250 DO Work Phone: CBC AUTO DIFFon 02-10-2022 BASO # 0.1 103/ul Normal 0.0-0.1 Comment on above: Performed By: #### C MADM, BNP, CMP #### [facility] [address] [place] [address] Dr. Marco Greer Basophils/100 WBC (Bld) 1.1 % Normal 0.2-2.0 [facility] Comment on above: Performed By: #### C MADM, BNP, CMP #### [facility] [address] [place] [address] Dr. Marco Greer EO # 0.5 103/ul Normal 0.0-0.7 [facility] Comment on above: Performed By: #### C MADM, BNP, CMP #### [facility] [address] [place] [address] Dr. Marco Greer Eosinophils/100 WBC (Bld) 6.0 % Normal 0.9-7.0 [facility] Comment on above: Performed By: #### C MADM, BNP, CMP #### [facility] [address] [place] [address] Dr. Marco Greer Erythrocyte distribution width (RBC) [Ratio] 15.2 % Critically high 11.0-15.0 [facility] Comment on above: Performed By: #### C MADM, BNP, CMP #### [facility] [address] [place] [address] Dr. Marco Greer Hematocrit (Bld) [Volume fraction] 39.6 % Normal 36.0-48.0 Comment on above: Performed By: #### C MADM, BNP, CMP #### [facility] [address] [place] [address] Dr. Marco Greer Hemoglobin (Bld) [Mass/Vol] 12.4 g/dL Normal 12.0-16.0 Comment on above: Performed By: #### C MADM, BNP, CMP #### [facility] [address] [place] [address] Dr. Marco Greer IG # 0.02 10e3/ul Normal 0.00-0.03 Comment on above: Performed By: #### C MADM, BNP, CMP #### [facility] [address] [place] [address] Dr. Marco Greer IG % 0.3 % Normal 0.0-0.5 Comment on above: Performed By: #### C MADM, BNP, CMP #### [facility] [address] [place] [address] Dr. Marco Greer LYMPH # 1.2 103/ul Normal 1.2-3.8 Comment on above: Performed By: #### C MADM, BNP, CMP #### [facility] [address] [place] [address] Dr. Marco Greer Lymphocytes/100 WBC (Bld) 15.5 % Critically low 20.5-60.0 Comment on above: Performed By: #### C MADM, BNP, CMP #### [facility] [address] [place] [address] Dr. Marco Greer MANUAL DIFF REQ NO Normal Comment on above: Performed By: #### C MADM, BNP, CMP #### [facility] [address] [place] [address] Dr. Marco Greer MCH (RBC) [Entitic mass] 28.1 pg Normal 26.7-34.0 [facility] Comment on above: Performed By: #### C MADM, BNP, CMP #### [facility] [address] [place] [address] Dr. Marco Greer MCHC (RBC) [Mass/Vol] 31.3 g/dL Normal 29.9-35.2 [facility] Comment on above: Performed By: #### C MADM, BNP, CMP #### [facility] [address] [place] [address] Dr. Marco Greer MCV (RBC) [Entitic vol] 89.6 fL Normal 81.0-99.0 [facility] Comment on above: Performed By: #### C MADM, BNP, CMP #### [facility] [address] [place] [address] Dr. Marco Greer MONO # 0.7 103/ul Normal 0.3-0.8 [facility] Comment on above: Performed By: #### C MADM, BNP, CMP #### [facility] [address] [place] [address] Dr. aMrco Greer Monocytes/100 WBC (Bld) 8.9 % Normal 1.7-12.0 [facility] Comment on above: Performed By: #### C MADM, BNP, CMP #### [facility] [address] [place] [address] Dr. Marco Greer NEUT # 5.4 103/ul Normal 1.4-6.5 [facility] Comment on above: Performed By: #### C MADM, BNP, CMP #### [facility] [address] [place] [address] Dr. Marco Greer Neutrophils/100 WBC (Bld) 68.2 % Normal 43.0-75.0 [facility] Comment on above: Performed By: #### C MADM, BNP, CMP #### [facility] [address] [place] [address] Dr. Marco Greer Platelet mean volume (Bld) [Entitic vol] 10.1 fL Normal 9.5-13.5 [facility] Comment on above: Performed By: #### C MADM, BNP, CMP #### [facility] [address] [address] [address] Marco Greer PLT 518 103/ul Critically high 150-450 [facility] Comment on above: Performed By: #### C MADM, BNP, CMP #### [facility] [address] [address] [address] Marco Greer RBC 4.42 106/ul Normal 4.20-5.40 [facility] Comment on above: Performed By: #### C MADM, BNP, CMP #### [facility] [address] [place] [address] Dr. Marco Greer WBC 7.9 103/ul Normal 4.0-11.0 Comment on above: Performed By: #### C MADM, BNP, CMP #### [facility] [address] [place] [address] Dr. Marco Greer CRPon 02-10-2022 CRP 1.6 mg/dL Critically high <=1.0 Comment on above: Performed By: #### C RP, LIVER, TSH, BMP, FT3 #### [facility] [address] [place] [address] Dr. Marco Greer FREE T3on 02-10-2022 FREE T3 1.99 pg/mlL Critically low 2.18-3.98 Comment on above: Performed By: #### C RP, LIVER, TSH, BMP, FT3 #### [facility] [address] [place] [address] Dr. Marco Greer FREE T4on 02-10-2022 Free T4 [Mass/Vol] 1.43 ng/dL Normal 0.76-1.46 Comment on above: Performed By: #### C MP #### [facility] [address] [place] [address] Dr. Marco Greer LIVER PROFILEon 02-10-2022 Albumin [Mass/Vol] 3.2 g/dL Critically low 3.4-5.0 [facility] Comment on above: Performed By: #### C RP, LIVER, TSH, BMP, FT3 #### [facility] [address] [place] [address] Dr. Marco Greer Albumin/Globulin [Mass ratio] 0.7 {ratio} Normal Comment on above: Performed By: #### C RP, LIVER, TSH, BMP, FT3 #### [facility] [address] [place] [address] Dr. Marco Greer ALP [Catalytic activity/Vol] 109 U/L Normal 46-116 [facility] Comment on above: Performed By: #### C RP, LIVER, TSH, BMP, FT3 #### [facility] [address] [place] [address] Dr. Marco Greer ALT [Catalytic activity/Vol] 22 U/L Normal 14-59 Comment on above: Performed By: #### C RP, LIVER, TSH, BMP, FT3 #### [facility] [address] [place] [address] Dr. Marco Greer AST [Catalytic activity/Vol] 24 U/L Normal 15-37 Comment on above: Performed By: #### C RP, LIVER, TSH, BMP, FT3 #### [facility] [address] [place] [address] Dr. Marco Greer BILI, CONJUGATED 0.2 mg/dL Normal 0.0-0.2 Comment on above: Performed By: #### C RP, LIVER, TSH, BMP, FT3 #### [facility] [address] [place] [address] Dr. Marco Greer Bilirubin [Mass/Vol] 0.5 mg/dL Normal 0.2-1.0 Comment on above: Performed By: #### C RP, LIVER, TSH, BMP, FT3 #### [facility] [address] [place] [address] Dr. Marco Greer Globulin (S) [Mass/Vol] 4.3 g/dL Normal Comment on above: Performed By: #### C RP, LIVER, TSH, BMP, FT3 #### [facility] [address] [place] [address] Dr. Marco Greer Protein [Mass/Vol] 7.5 g/dL Normal 6.4-8.2 Comment on above: Performed By: #### C RP, LIVER, TSH, BMP, FT3 #### [facility] [address] [place] [address] Dr. Marco Greer PROF CHEM 8 (BAS METB)on Anion gap [Moles/Vol] 13.8 mmol/L Normal Th [facility] Comment on above: Performed By: #### C RP, LIVER, TSH, BMP, FT3 #### [facility] [address] [address] [address] Marco Greer Calcium [Mass/Vol] 9.3 mg/dL Normal 8.5-10.1 Comment on above: Performed By: #### C RP, LIVER, TSH, BMP, FT3 #### [facility] [address] [place] [address] Dr. Marco Greer Chloride [Moles/Vol] 97 mmol/L Critically low 98-107 Comment on above: Performed By: #### C RP, LIVER, TSH, BMP, FT3 #### [facility] [address] [place] [address] Dr. Marco Greer CO2 [Moles/Vol] 25.4 mmol/L Normal 21.0-32.0 Comment on above: Performed By: #### C RP, LIVER, TSH, BMP, FT3 #### [facility] [address] [place] [address] Dr. Marco Greer Creatinine [Mass/Vol] 0.77 mg/dL Normal 0.55-1.02 Comment on above: Performed By: #### C RP, LIVER, TSH, BMP, FT3 #### [facility] [address] [place] [address] Dr. Marco Greer EGFR-AF NIGERIEN >60 Normal >=60 Comment on above: Performed By: #### C RP, LIVER, TSH, BMP, FT3 #### [facility] [address] [place] [address] Dr. Marco Greer EGFR-NON AF NIGERIEN >60 Normal >=60 Comment on above: Performed By: #### C RP, LIVER, TSH, BMP, FT3 #### [facility] [address] [address] [address] Marco Greer Glucose [Mass/Vol] 78 mg/dL Normal 74-106 Comment on above: Performed By: #### C RP, LIVER, TSH, BMP, FT3 #### [facility] [address] [address] [address] Marco Greer Potassium [Moles/Vol] 3.2 mmol/L Critically low 3.5-5.1 Comment on above: Performed By: #### C RP, LIVER, TSH, BMP, FT3 #### [facility] [address] [place] [address] Dr. Marco Greer Sodium [Moles/Vol] 133 mmol/L Critically low 136-145 [facility] Comment on above: Performed By: #### C RP, LIVER, TSH, BMP, FT3 #### [facility] [address] [address] [address] Marco Greer Urea nitrogen [Mass/Vol] 13.0 mg/dL Normal 7.0-18.0 Comment on above: Performed By: #### C RP, LIVER, TSH, BMP, FT3 #### [facility] [address] [place] [address] Dr. Marco Greer Urea nitrogen/Creatinine [Mass ratio] 16.9 mg/mg Normal Comment on above: Performed By: #### C RP, LIVER, TSH, BMP, FT3 #### [facility] [address] [place] [address] Dr. Marco Greer SED RATE [facility] 2021 SED RATE 83 mm/hr Critically high <=30 Comment on above: Performed By: #### C MADM, BNP, CMP #### [facility] [address] [place] [address] Dr. Marco Greer TSHon 02-10-2022 TSH 4.983 uIU/mL Critically high 0.358-3.74 0 [facility] Comment on above: Performed By: #### C RP, LIVER, TSH, BMP, FT3 #### [facility] [address] [place], [place] [address] Dr. Marco Greer Laboratory - Hematology and Cell countson 01-28-2022 Erythrocyte distribution width (RBC) [Ratio] 15.9 % above high threshold See Below [facility] [employer] DO Work Phone: Comment on above: Reference Range: 11. 5 - 14.5 Hematocrit (Bld) [Volume fraction] 29.8 % below low threshold See Below [place] [address] DO Work Phone: Comment on above: Reference Range: 36. 0 - 46.0 Hemoglobin (Bld) [Mass/Vol] 9.8 g/dL below low threshold See Below [place] [address] DO Work Phone: Comment on above: Reference Range: 12. 0 - 16.0 MCHC (RBC) [Mass/Vol] 32.9 g/dL See Below [place] [address] DO Work Phone: Comment on above: Reference Range: 32. 0 - 36.0 MCV (RBC) [Entitic vol] 92 fL 80 - 100 [place] [address] DO Work Phone: Platelets (Bld) [#/Vol] 435 10*3/uL 150 - 450 [place] [address] DO Work Phone: RBC (Bld) [#/Vol] 3.25 {x10E12/L} below low threshold See Below [place] [address] DO Work Phone: Comment on above: Reference Range: 4.0 0 - 5.20 WBC (Bld) [#/Vol] 9.2 10*3/uL 4.4 - 11.3 [facility] [employer] kori 250 DO Work Phone: Magnesium, Serumon 2 Magnesium [Mass/Vol] 2.02 mg/dL See Below -[facility] [employer] kori 250 DO Work Phone: Comment on above: Reference Range: 1.6 0 - 2.40 No Panel Informationon 01-28 0.0 {/100_WBC} 0.0-0.0 [facility] [employer] DO Work Phone: Renal Function Panelon 01-28 Albumin BCP dye [Mass/Vol] 2.8 g/dL below low threshold 3.4 - 5.0 [facility] kori [employer] DO Work Phone: Anion gap [Moles/Vol] 16 mmol/L 10 - 20 [place] [address] DO Work Phone: Calcium [Mass/Vol] 8.5 mg/dL below low threshold 8.6 - 10.6 [place] [address] DO Work Phone: Chloride [Moles/Vol] 99 mmol/L 98 - 107 [facility] [employer] kori 250 DO Work Phone: CO2 [Moles/Vol] 23 mmol/L 21 - 32 [place] [address] DO Work Phone: Creatinine [Mass/Vol] 0.71 mg/dL See Below [place] [address] DO Work Phone: Comment on above: Reference Range: 0.5 0 - 1.05 Glucose [Mass/Vol] 71 mg/dL below low threshold 74 - 99 [facility] 250 DO Work Phone: Phosphate [Mass/Vol] 3.8 mg/dL 2.5 - 4.9 [facility] [employer] kori 250 DO Work Phone: Comment on above: The performance andra acteristics of phosphorus testing in heparinized plasma have been validated by the individual laboratory site where testing is performed. Testing on heparinized plasma is not approved by the FDA; however, such approval is not necessary. Potassium [Moles/Vol] 4.9 mmol/L 3.5 - 5.3 [facility] kori [employer] DO Work Phone: Sodium [Moles/Vol] 133 mmol/L below low threshold 136 - 145 [place] [address] DO Work Phone: Urea nitrogen [Mass/Vol] 48 mg/dL above high threshold 6 - 23 [facility] [employer] DO Work Phone: Renal Function Panel 86 {mL/min/1.73m2} >90 [place] [address] DO Work Phone: Comment on above: CALCULATIONS OF MOISES MATED GFR ARE PERFORMED USING THE 2020 CKD-EPI STUDY REFIT EQUATION WITHOUT THE RACE VARIABLE FOR THE IDMS-TRACEABLE CREATININE METHODS.https://jasn.asnjournals.org/content/early/A SN.8333093850 Coronavirus 2019 RNA by PCR, Screening Asymptomticon 01-27-2022 Coronavirus 2019 RNA by PCR, Screening Asymptomtic Not detected Normal See Below [place] [address] DO Work Phone: Comment on above: SOURCE: [...] this test method. Fact sheet for providers: www.fda.gov/media/967180/downloadFact sheet for patients: www.fda.gov/media/001029/downloadThis test has received FDA Emergency Use Authorization (EUA) and has been verified by [facility] ([facility]). This test is only authorized for the duration of time that circumstances exist to justify the authorization of the emergency use of in vitro diagnostic tests for the detection of SARS-CoV-2 virus and/or diagnosis of COVID-19 infection under section 564(b)(1) of the Act, 21 U.S.C. 360bbb-3(b)(1), unless the authorization is terminated or revoked sooner. [facility] is certified under CLIA-88 as qualified to perform high complexity testing. Testing is performed in the [facility] laboratories located at [address] [place] [address]. Laboratory - Hematology and Cell countson 01-27-2022 Erythrocyte distribution width (RBC) [Ratio] 15.6 % above high threshold See Below [facility] [place] 250 DO Work Phone: Comment on above: Reference Range: 11. 5 - 14.5 Hematocrit (Bld) [Volume fraction] 28.3 % below low threshold See Below [facility] DO Work Phone: Comment on above: Reference Range: 36. 0 - 46.0 Hemoglobin (Bld) [Mass/Vol] 9.5 g/dL below low threshold See Below [facility] [employer] kori [employer] DO Work Phone: Comment on above: Reference Range: 12. 0 - 16.0 MCHC (RBC) [Mass/Vol] 33.6 g/dL See Below [place] [address] DO Work Phone: Comment on above: Reference Range: 32. 0 - 36.0 MCV (RBC) [Entitic vol] 90 fL 80 - 100 [place] [address] DO Work Phone: Platelets (Bld) [#/Vol] 462 10*3/uL above high threshold 150 - 450 [facility] [employer] DO Work Phone: RBC (Bld) [#/Vol] 3.16 {x10E12/L} below low threshold See Below [facility] InstituteTV[facility] Logistics ServicesUn[facility] kori 250 DO Work Phone: Comment on above: Reference Range: 4.0 0 - 5.20 WBC (Bld) [#/Vol] 10.4 10*3/uL 4.4 - 11.3 -[facility] [place] 250 DO Work Phone: Magnesium, Serumon 2 Magnesium [Mass/Vol] 1.99 mg/dL See Below [facility] [employer] kori 250 DO Work Phone: Comment on above: Reference Range: 1.6 0 - 2.40 No Panel Informationon 01-27 0.0 {/100_WBC} 0.0-0.0 [facility] [employer] kori 250 DO Work Phone: Renal Function Panelon 01-27 Albumin BCP dye [Mass/Vol] 2.7 g/dL below low threshold 3.4 - 5.0 [facility] [employer] DO Work Phone: Anion gap [Moles/Vol] 12 mmol/L 10 - 20 [place] [address] DO Work Phone: Calcium [Mass/Vol] 8.3 mg/dL below low threshold 8.6 - 10.6 [facility]TV[facility] ServicesSk[facility] [employer] DO Work Phone: Chloride [Moles/Vol] 95 mmol/L below low threshold 98 - 107 [facility] [employer] kori 250 DO Work Phone: CO2 [Moles/Vol] 26 mmol/L 21 - 32 [facility] InstituteTVS Logistics ServicesJac[place] [address] DO Work Phone: Creatinine [Mass/Vol] 0.73 mg/dL See Below [facility] [employer] kori 250 DO Work Phone: Comment on above: Reference Range: 0.5 0 - 1.05 Glucose [Mass/Vol] 77 mg/dL 74 - 99 [facility] [employer] kori 250 DO Work Phone: Phosphate [Mass/Vol] 4.2 mg/dL 2.5 - 4.9 [facility] [employer] kori 250 DO Work Phone: Comment on above: The performance andra acteristics of phosphorus testing in heparinized plasma have been validated by the individual laboratory site where testing is performed. Testing on heparinized plasma is not approved by the FDA; however, such approval is not necessary. Potassium [Moles/Vol] 4.9 mmol/L 3.5 - 5.3 [facility] kori [employer] DO Work Phone: Sodium [Moles/Vol] 128 mmol/L below low threshold 136 - 145 [facility] [employer] DO Work Phone: Urea nitrogen [Mass/Vol] 48 mg/dL above high threshold 6 - 23 [facility] [employer] DO Work Phone: Renal Function Panel 83 {mL/min/1.73m2} >90 [facility] [employer] DO Work Phone: Comment on above: CALCULATIONS OF MOISES MATED GFR ARE PERFORMED USING THE 2020 CKD-EPI STUDY REFIT EQUATION WITHOUT THE RACE VARIABLE FOR THE IDMS-TRACEABLE CREATININE METHODS.https://jasn.asnjournals.org/content//A .5228815113 Laboratory - Hematology and Cell countson 01-26-2022 Erythrocyte distribution width (RBC) [Ratio] 15.5 % above high threshold See Below [facility] [employer] DO Work Phone: Comment on above: Reference Range: 11. 5 - 14.5 Hematocrit (Bld) [Volume fraction] 30.3 % below low threshold See Below [facility] [employer] DO Work Phone: Comment on above: Reference Range: 36. 0 - 46.0 Hemoglobin (Bld) [Mass/Vol] 10.0 g/dL below low threshold See Below [facility] [employer] DO Work Phone: Comment on above: Reference Range: 12. 0 - 16.0 MCHC (RBC) [Mass/Vol] 33.0 g/dL See Below [facility] [employer] DO Work Phone: Comment on above: Reference Range: 32. 0 - 36.0 MCV (RBC) [Entitic vol] 90 fL 80 - 100 [facility] [employer] kori 250 DO Work Phone: Platelets (Bld) [#/Vol] 454 10*3/uL above high threshold 150 - 450 [facility] [employer] kori 250 DO Work Phone: RBC (Bld) [#/Vol] 3.36 {x10E12/L} below low threshold See Below [facility] [employer] DO Work Phone: Comment on above: Reference Range: 4.0 0 - 5.20 WBC (Bld) [#/Vol] 12.6 10*3/uL above high threshold 4.4 - 11.3 [facility] [employer] kori 250 DO Work Phone: Magnesium, Serumon Magnesium [Mass/Vol] 2.00 mg/dL See Below [facility] [employer] kori 250 DO Work Phone: Comment on above: Reference Range: 1.6 0 - 2.40 No Panel Informationon 01-26 0.0 {/100_WBC} 0.0-0.0 [facility] [employer] [employer] DO Work Phone: Renal Function Panelon 01-26 Albumin BCP dye [Mass/Vol] 3.1 g/dL below low threshold 3.4 - 5.0 [facility] [employer] kori 250 DO Work Phone: Anion gap [Moles/Vol] 16 mmol/L 10 - 20 [facility] [employer] kori 250 DO Work Phone: Calcium [Mass/Vol] 8.7 mg/dL 8.6 - 10.6 [facility] [place] 250 DO Work Phone: Chloride [Moles/Vol] 92 mmol/L below low threshold 98 - 107 [facility] [employer] kori 250 DO Work Phone: CO2 [Moles/Vol] 24 mmol/L 21 - 32 [place] [address] DO Work Phone: Creatinine [Mass/Vol] 0.82 mg/dL See Below [place] [address] DO Work Phone: Comment on above: Reference Range: 0.5 0 - 1.05 Glucose [Mass/Vol] 113 mg/dL above high threshold 74 - 99 [place] [address] DO Work Phone: Phosphate [Mass/Vol] 4.2 mg/dL 2.5 - 4.9 [facility] [employer] DO Work Phone: Comment on above: The performance andra acteristics of phosphorus testing in heparinized plasma have been validated by the individual laboratory site where testing is performed. Testing on heparinized plasma is not approved by the FDA; however, such approval is not necessary. Potassium [Moles/Vol] 4.3 mmol/L 3.5 - 5.3 [place] [address] DO Work Phone: Sodium [Moles/Vol] 128 mmol/L below low threshold 136 - 145 [place] [address] DO Work Phone: Urea nitrogen [Mass/Vol] 46 mg/dL above high threshold 6 - 23 [place] [address] DO Work Phone: Renal Function Panel 72 {mL/min/1.73m2} >90 [place] [address] DO Work Phone: Comment on above: CALCULATIONS OF MOISES MATED GFR ARE PERFORMED USING THE 2020 CKD-EPI STUDY REFIT EQUATION WITHOUT THE RACE VARIABLE FOR THE IDMS-TRACEABLE CREATININE METHODS.https://jasn.asnjournals.org/content//A SN.1195993760 Albumin BCP dye [Mass/Vol] 2.9 g/dL below low threshold 3.4 - 5.0 [place] [address] DO Work Phone: Anion gap [Moles/Vol] 14 mmol/L 10 - 20 [facility] [place] [facility] kori 250 DO Work Phone: Calcium [Mass/Vol] 8.4 mg/dL below low threshold 8.6 - 10.6 [place] [address] DO Work Phone: Chloride [Moles/Vol] 92 mmol/L below low threshold 98 - 107 [place] [address] DO Work Phone: CO2 [Moles/Vol] 25 mmol/L 21 - 32 [place] [address] DO Work Phone: Creatinine [Mass/Vol] 0.73 mg/dL See Below [place] [address] DO Work Phone: Comment on above: Reference Range: 0.5 0 - 1.05 Glucose [Mass/Vol] 79 mg/dL 74 - 99 [facility] [employer] DO Work Phone: Phosphate [Mass/Vol] 4.4 mg/dL 2.5 - 4.9 [facility] 250 DO Work Phone: Comment on above: The performance andra acteristics of phosphorus testing in heparinized plasma have been validated by the individual laboratory site where testing is performed. Testing on heparinized plasma is not approved by the FDA; however, such approval is not necessary. Potassium [Moles/Vol] 5.2 mmol/L 3.5 - 5.3 [place] [address] DO Work Phone: Sodium [Moles/Vol] 126 mmol/L below low threshold 136 - 145 [place] [address] DO Work Phone: Urea nitrogen [Mass/Vol] 40 mg/dL above high threshold 6 - 23 [place] [address] DO Work Phone: Renal Function Panel 83 {mL/min/1.73m2} >90 [place] [address] DO Work Phone: Comment on above: CALCULATIONS OF MOISES MATED GFR ARE PERFORMED USING THE 2020 CKD-EPI STUDY REFIT EQUATION WITHOUT THE RACE VARIABLE FOR THE IDMS-TRACEABLE CREATININE METHODS.https://jasn.asnjournals.org/content/early/A SN.7925436870 Laboratory - Hematology and Cell countson 01-25-2022 Erythrocyte distribution width (RBC) [Ratio] 15.2 % above high threshold See Below [employer] [facility] [employer] DO Work Phone: Comment on above: Reference Range: 11. 5 - 14.5 Hematocrit (Bld) [Volume fraction] 29.7 % below low threshold See Below [facility] [employer] DO Work Phone: Comment on above: Reference Range: 36. 0 - 46.0 Hemoglobin (Bld) [Mass/Vol] 9.9 g/dL below low threshold See Below [facility] [employer] DO Work Phone: Comment on above: Reference Range: 12. 0 - 16.0 MCHC (RBC) [Mass/Vol] 33.3 g/dL See Below [facility] [employer] DO Work Phone: Comment on above: Reference Range: 32. 0 - 36.0 MCV (RBC) [Entitic vol] 89 fL 80 - 100 [facility] [employer] DO Work Phone: Platelets (Bld) [#/Vol] 490 10*3/uL above high threshold 150 - 450 [facility] [employer] DO Work Phone: RBC (Bld) [#/Vol] 3.33 {x10E12/L} below low threshold See Below [facility] [employer] DO Work Phone: Comment on above: Reference Range: 4.0 0 - 5.20 WBC (Bld) [#/Vol] 15.4 10*3/uL above high threshold 4.4 - 11.3 [facility] [employer] DO Work Phone: Magnesium, Serumon 2 Magnesium [Mass/Vol] 1.89 mg/dL See Below [facility] kori 250 DO Work Phone: Comment on above: Reference Range: 1.6 0 - 2.40 No Panel Informationon 01-25 0.0 {/100_WBC} 0.0-0.0 [place] [address] DO Work Phone: Renal Function Panelon 01-25 Albumin BCP dye [Mass/Vol] 3.1 g/dL below low threshold 3.4 - 5.0 [facility] 250 DO Work Phone: Anion gap [Moles/Vol] 16 mmol/L 10 - 20 [place] [address] DO Work Phone: Calcium [Mass/Vol] 8.5 mg/dL below low threshold 8.6 - 10.6 [place] [address] DO Work Phone: Chloride [Moles/Vol] 91 mmol/L below low threshold 98 - 107 [facility] 250 DO Work Phone: CO2 [Moles/Vol] 22 mmol/L 21 - 32 [place] [address] DO Work Phone: Creatinine [Mass/Vol] 0.72 mg/dL See Below [place] [address] DO Work Phone: Comment on above: Reference Range: 0.5 0 - 1.05 Glucose [Mass/Vol] 94 mg/dL 74 - 99 [facility] ServicesTV[facility] ServicesUn[facility] kori 250 DO Work Phone: Phosphate [Mass/Vol] 4.5 mg/dL 2.5 - 4.9 [facility]HQ[facility] 250 DO Work Phone: Comment on above: The performance andra acteristics of phosphorus testing in heparinized plasma have been validated by the individual laboratory site where testing is performed. Testing on heparinized plasma is not approved by the FDA; however, such approval is not necessary. Potassium [Moles/Vol] 5.1 mmol/L 3.5 - 5.3 [facility] [employer] [employer] DO Work Phone: Sodium [Moles/Vol] 124 mmol/L below low threshold 136 - 145 [place] [address] DO Work Phone: Urea nitrogen [Mass/Vol] 40 mg/dL above high threshold 6 - 23 [facility] [employer] DO Work Phone: Renal Function Panel 84 {mL/min/1.73m2} >90 [facility] [employer] DO Work Phone: Comment on above: CALCULATIONS OF MOISES MATED GFR ARE PERFORMED USING THE 2020 CKD-EPI STUDY REFIT EQUATION WITHOUT THE RACE VARIABLE FOR THE IDMS-TRACEABLE CREATININE METHODS.https://jasn.asnjournals.org/content//A SN.8251707335 Albumin BCP dye [Mass/Vol] 3.1 g/dL below low threshold 3.4 - 5.0 [facility] kori [employer] DO Work Phone: Anion gap [Moles/Vol] 15 mmol/L 10 - 20 [place] [address] DO Work Phone: Calcium [Mass/Vol] 8.6 mg/dL 8.6 - 10.6 [facility] kori 250 DO Work Phone: Chloride [Moles/Vol] 92 mmol/L below low threshold 98 - 107 [facility] [employer] DO Work Phone: CO2 [Moles/Vol] 21 mmol/L 21 - 32 [facility] [employer] DO Work Phone: Creatinine [Mass/Vol] 0.74 mg/dL See Below [facility] kori [employer] DO Work Phone: Comment on above: Reference Range: 0.5 0 - 1.05 Glucose [Mass/Vol] 85 mg/dL 74 - 99 -[facility] [employer] kori 250 DO Work Phone: Phosphate [Mass/Vol] 3.9 mg/dL 2.5 - 4.9 [facility] [place] [facility] kori 250 DO Work Phone: Comment on above: The performance andra acteristics of phosphorus testing in heparinized plasma have been validated by the individual laboratory site where testing is performed. Testing on heparinized plasma is not approved by the FDA; however, such approval is not necessary. Potassium [Moles/Vol] 5.3 mmol/L 3.5 - 5.3 [place] [address] DO Work Phone: Sodium [Moles/Vol] 123 mmol/L below low threshold 136 - 145 [place] [address] DO Work Phone: Urea nitrogen [Mass/Vol] 17 mg/dL 6 - 23 [place] [address] DO Work Phone: Renal Function Panel 82 {mL/min/1.73m2} >90 [place] [address] DO Work Phone: Comment on above: CALCULATIONS OF MOISES MATED GFR ARE PERFORMED USING THE 2020 CKD-EPI STUDY REFIT EQUATION WITHOUT THE RACE VARIABLE FOR THE IDMS-TRACEABLE CREATININE METHODS.https://jasn.asnjournals.org/content//A .1737228903 Cortisol, Unspecifiedon 01-13 Cortisol [Mass/Vol] 18.4 ug/dL 2.5 - 20.0 -No [facility]th [place] [facility] kori [employer] DO Work Phone: Laboratory - Chemistry and C hemistry - challengeon 01-24-2022 Creatinine (U) [Mass/Vol] 71.9 mg/dL See Below [facility] [place]HQ[place] [address] DO Work Phone: Comment on above: Reference Range: 20. 0 - 320.0 Osmolality (U) [Osmolality] 646 mosm/kg 200 - 1200 [facility] padillay 250 DO Work Phone: Potassium (U) [Moles/Vol] 48 mmol/L See Below [facility] kori Jhonny DO Work Phone: Comment on above: Reference Range: Not Established Potassium/Creatinine (U) [Molar ratio] 67 {mmol/g_Creat} See Below [facility] kori Jhonny DO Work Phone: Comment on above: Reference Range: Not Established Sodium (U) [Moles/Vol] 131 mmol/L See Below [facility] DO Work Phone: Comment on above: Reference Range: Not Established Sodium/Creatinine (U) [Ratio] 182 {mmol/g_Creat} See Below [facility] DO Work Phone: Comment on above: Reference Range: Not Established Urea nitrogen (U) [Mass/Vol] 671 mg/dL See Below [facility] DO Work Phone: Comment on above: Reference Range: Not Established Urea/Creatinine (U) [Molar ratio] 9.3 {g/g_Creat} See Below [facility] Institute[facility] padillay Jhonny DO Work Phone: Comment on above: Reference Range: Not Established Laboratory - Hematology and Cell countson 01-24-2022 Erythrocyte distribution width (RBC) [Ratio] 15.2 % above high threshold See Below [facility] ClinicMacarena padillay Jhonny DO Work Phone: Comment on above: Reference Range: 11. 5 - 14.5 Hematocrit (Bld) [Volume fraction] 29.8 % below low threshold See Below [facility] DO Work Phone: Comment on above: Reference Range: 36. 0 - 46.0 Hemoglobin (Bld) [Mass/Vol] 10.0 g/dL below low threshold See Below [facility] ClinicGueritarobin [place] [address] DO Work Phone: Comment on above: Reference Range: 12. 0 - 16.0 MCHC (RBC) [Mass/Vol] 33.6 g/dL See Below [facility] Sai padillay 250 DO Work Phone: Comment on above: Reference Range: 32. 0 - 36.0 MCV (RBC) [Entitic vol] 89 fL 80 - 100 [facility] 250 DO Work Phone: [phone] Platelets (Bld) [#/Vol] 463 10*3/uL above high threshold 150 - 450 [facility] Becky kori 250 DO Work Phone: RBC (Bld) [#/Vol] 3.33 {x10E12/L} below low threshold See Below [facility] Becky kori 250 DO Work Phone: Comment on above: Reference Range: 4.0 0 - 5.20 WBC (Bld) [#/Vol] 12.6 10*3/uL above high threshold 4.4 - 11.3 [facility] Sai padillay 250 DO Work Phone: Magnesium, Serumon 2 Magnesium [Mass/Vol] 1.85 mg/dL See Below [facility] PlanHQVincent sheikh 250 DO Work Phone: Comment on above: Reference Range: 1.6 0 - 2.40 No Panel Informationon 01-24 210 {mmol/g_Creat} 38 - 318 [facility] Sai kori 250 DO Work Phone: 151 mmol/L See Below [facility] ClinicGuerita [facility] DO Work Phone: Comment on above: Reference Range: Not Established 0.0 {/100_WBC} 0.0-0.0 [facility] 250 DO Work Phone: Osmolality, Serumon 01-25-20 22 Osmolality [Osmolality] 260 {mOsm/kg_H2O} below low threshold 280 - 300 [facility] Clinic[facility] kori 250 DO Work Phone: Radiologyon 01-24-2022 XR Chest Single view Normal [facility] [employer] kori 250 DO Work Phone: Renal Function Panelon 01-24 Albumin BCP dye [Mass/Vol] 3.0 g/dL below low threshold 3.4 - 5.0 [facility] kori 250 DO Work Phone: Anion gap [Moles/Vol] 13 mmol/L 10 - 20 [place] [address] DO Work Phone: Calcium [Mass/Vol] 8.2 mg/dL below low threshold 8.6 - 10.6 [place] [address] DO Work Phone: Chloride [Moles/Vol] 95 mmol/L below low threshold 98 - 107 [place] [address] DO Work Phone: CO2 [Moles/Vol] 20 mmol/L below low threshold 21 - 32 [place] [address] DO Work Phone: Creatinine [Mass/Vol] 0.73 mg/dL See Below [place] [address] DO Work Phone: Comment on above: Reference Range: 0.5 0 - 1.05 Glucose [Mass/Vol] 88 mg/dL 74 - 99 [facility] ServicesTVS Logistics ServicesUnimed Medical Center kori 250 DO Work Phone: Phosphate [Mass/Vol] 3.4 mg/dL 2.5 - 4.9 [facility] [employer] kori 250 DO Work Phone: Comment on above: The performance andra acteristics of phosphorus testing in heparinized plasma have been validated by the individual laboratory site where testing is performed. Testing on heparinized plasma is not approved by the FDA; however, such approval is not necessary. Potassium [Moles/Vol] 5.1 mmol/L 3.5 - 5.3 [facility] DO Work Phone: Sodium [Moles/Vol] 123 mmol/L below low threshold 136 - 145 [facility] [employer] kori [employer] DO Work Phone: Urea nitrogen [Mass/Vol] 17 mg/dL 6 - 23 [facility] [employer] DO Work Phone: Renal Function Panel 83 {mL/min/1.73m2} >90 [place] [address] DO Work Phone: Comment on above: CALCULATIONS OF MOISES MATED GFR ARE PERFORMED USING THE 2020 CKD-EPI STUDY REFIT EQUATION WITHOUT THE RACE VARIABLE FOR THE IDMS-TRACEABLE CREATININE METHODS.https://jasn.asnjournals.org/content//A SN.6831929554 Laboratory - Hematology and Cell countson 01-23-2022 Erythrocyte distribution width (RBC) [Ratio] 15.5 % above high threshold See Below [facility] [employer] kori [employer] DO Work Phone: Comment on above: Reference Range: 11. 5 - 14.5 Hematocrit (Bld) [Volume fraction] 32.9 % below low threshold See Below [facility] kori [employer] DO Work Phone: Comment on above: Reference Range: 36. 0 - 46.0 Hemoglobin (Bld) [Mass/Vol] 10.6 g/dL below low threshold See Below [facility] kori [employer] DO Work Phone: Comment on above: Reference Range: 12. 0 - 16.0 MCHC (RBC) [Mass/Vol] 32.2 g/dL See Below [facility] kori [employer] DO Work Phone: Comment on above: Reference Range: 32. 0 - 36.0 MCV (RBC) [Entitic vol] 95 fL 80 - 100 [facility] [employer] DO Work Phone: Platelets (Bld) [#/Vol] 420 10*3/uL 150 - 450 [facility] [employer] DO Work Phone: RBC (Bld) [#/Vol] 3.47 {x10E12/L} below low threshold See Below [facility] [place] 250 DO Work Phone: Comment on above: Reference Range: 4.0 0 - 5.20 WBC (Bld) [#/Vol] 11.9 10*3/uL above high threshold 4.4 - 11.3 [facility] [place] 250 DO Work Phone: Magnesium, Serumon 2 Magnesium [Mass/Vol] 1.95 mg/dL See Below [facility] [place] 250 DO Work Phone: Comment on above: Reference Range: 1.6 0 - 2.40 No Panel Informationon 01-23 0.0 {/100_WBC} 0.0-0.0 [facility] [employer] DO Work Phone: Renal Function Panelon 01-23 Albumin BCP dye [Mass/Vol] 2.9 g/dL below low threshold 3.4 - 5.0 [facility] [employer] DO Work Phone: Anion gap [Moles/Vol] 14 mmol/L 10 - 20 [facility] [employer] DO Work Phone: Calcium [Mass/Vol] 8.5 mg/dL below low threshold 8.6 - 10.6 [facility] [employer] kori 250 DO Work Phone: Chloride [Moles/Vol] 96 mmol/L below low threshold 98 - 107 [facility] [employer] kori 250 DO Work Phone: CO2 [Moles/Vol] 20 mmol/L below low threshold 21 - 32 [facility] [employer] kori 250 DO Work Phone: Creatinine [Mass/Vol] 0.80 mg/dL See Below [facility] [employer] DO Work Phone: Comment on above: Reference Range: 0.5 0 - 1.05 Glucose [Mass/Vol] 78 mg/dL 74 - 99 [facility] kori 250 DO Work Phone: Phosphate [Mass/Vol] 4.2 mg/dL 2.5 - 4.9 [facility] kori 250 DO Work Phone: Comment on above: The performance andra acteristics of phosphorus testing in heparinized plasma have been validated by the individual laboratory site where testing is performed. Testing on heparinized plasma is not approved by the FDA; however, such approval is not necessary. Potassium [Moles/Vol] 5.4 mmol/L above high threshold 3.5 - 5.3 [place] [address] DO Work Phone: Sodium [Moles/Vol] 125 mmol/L below low threshold 136 - 145 [place] [address] DO Work Phone: Urea nitrogen [Mass/Vol] 15 mg/dL 6 - 23 [place] [address] DO Work Phone: Renal Function Panel 74 {mL/min/1.73m2} >90 [place] [address] DO Work Phone: Comment on above: CALCULATIONS OF MOISES MATED GFR ARE PERFORMED USING THE 2020 CKD-EPI STUDY REFIT EQUATION WITHOUT THE RACE VARIABLE FOR THE IDMS-TRACEABLE CREATININE METHODS.https://jasn.asnjournals.org/content//A SN.7160529052 Coronavirus 2019 RNA by PCR, Screening Asymptomticon 01-22-2022 Coronavirus 2019 RNA by PCR, Screening Asymptomtic Not detected Normal See Below [facility] kori [employer] DO Work Phone: Comment on above: SOURCE: [...] this test method. Fact sheet for providers: www.fda.gov/media/934470/downloadFact sheet for patients: www.fda.gov/media/432815/downloadThis test has received FDA Emergency Use Authorization (EUA) and has been verified by [facility] ([facility]). This test is only authorized for the duration of time that circumstances exist to justify the authorization of the emergency use of in vitro diagnostic tests for the detection of SARS-CoV-2 virus and/or diagnosis of COVID-19 infection under section 564(b)(1) of the Act, 21 U.S.C. 360bbb-3(b)(1), unless the authorization is terminated or revoked sooner. [facility] is certified under CLIA-88 as qualified to perform high complexity testing. Testing is performed in the [facility] laboratories located at [address] [place] [address]. Laboratory - Hematology and Cell countson 01-22-2022 Erythrocyte distribution width (RBC) [Ratio] 15.2 % above high threshold See Below [facility] [employer] DO Work Phone: Comment on above: Reference Range: 11. 5 - 14.5 Hematocrit (Bld) [Volume fraction] 31.2 % below low threshold See Below [facility] [employer] DO Work Phone: Comment on above: Reference Range: 36. 0 - 46.0 Hemoglobin (Bld) [Mass/Vol] 10.0 g/dL below low threshold See Below [facility] [employer] DO Work Phone: Comment on above: Reference Range: 12. 0 - 16.0 MCHC (RBC) [Mass/Vol] 32.1 g/dL See Below [facility] [employer] DO Work Phone: Comment on above: Reference Range: 32. 0 - 36.0 MCV (RBC) [Entitic vol] 94 fL 80 - 100 [facility] [employer] kori [employer] DO Work Phone: Platelets (Bld) [#/Vol] 409 10*3/uL 150 - 450 [facility]TVS Logistics ServicesUnimed Medical Center kori 250 DO Work Phone: RBC (Bld) [#/Vol] 3.33 {x10E12/L} below low threshold See Below [facility] PlanHQVincent sheikh 250 DO Work Phone: Comment on above: Reference Range: 4.0 0 - 5.20 WBC (Bld) [#/Vol] 12.4 10*3/uL above high threshold 4.4 - 11.3 [facility] PlanHQVincent padillay 250 DO Work Phone: Magnesium, Serumon 2 Magnesium [Mass/Vol] 1.94 mg/dL See Below [facility] [employer]Macarena kori 250 DO Work Phone: Comment on above: Reference Range: 1.6 0 - 2.40 No Panel Informationon 01-22 0.0 {/100_WBC} 0.0-0.0 [facility] PlanHQVincent sheikh [employer] DO Work Phone: Renal Function Panelon 01-22 Albumin BCP dye [Mass/Vol] 3.1 g/dL below low threshold 3.4 - 5.0 [facility] [employer]Macarena kori [employer] DO Work Phone: Anion gap [Moles/Vol] 13 mmol/L 10 - 20 [facility] [employer]Macarena kori 250 DO Work Phone: Calcium [Mass/Vol] 8.7 mg/dL 8.6 - 10.6 [facility] [employer]Macarena kori 250 DO Work Phone: Chloride [Moles/Vol] 97 mmol/L below low threshold 98 - 107 [facility] [employer]Macarena kori 250 DO Work Phone: CO2 [Moles/Vol] 19 mmol/L below low threshold 21 - 32 [facility] PlanHQVincent sheikh 250 DO Work Phone: Creatinine [Mass/Vol] 0.81 mg/dL See Below [facility] PlanHQKenton kori 250 DO Work Phone: Comment on above: Reference Range: 0.5 0 - 1.05 Glucose [Mass/Vol] 90 mg/dL 74 - 99 [facility] 250 DO Work Phone: Phosphate [Mass/Vol] 4.3 mg/dL 2.5 - 4.9 [facility] 250 DO Work Phone: Comment on above: The performance andra acteristics of phosphorus testing in heparinized plasma have been validated by the individual laboratory site where testing is performed. Testing on heparinized plasma is not approved by the FDA; however, such approval is not necessary. Potassium [Moles/Vol] 5.3 mmol/L 3.5 - 5.3 [place] [address] DO Work Phone: Urea nitrogen [Mass/Vol] 15 mg/dL 6 - 23 [place] [address] DO Work Phone: Renal Function Panel 73 {mL/min/1.73m2} >90 [place] [address] DO Work Phone: Comment on above: CALCULATIONS OF MOISES MATED GFR ARE PERFORMED USING THE 2020 CKD-EPI STUDY REFIT EQUATION WITHOUT THE RACE VARIABLE FOR THE IDMS-TRACEABLE CREATININE METHODS.https://jasn.asnjournals.org/content//A .0825124615 Albumin BCP dye [Mass/Vol] 2.8 g/dL below low threshold 3.4 - 5.0 [facility] 250 DO Work Phone: Anion gap [Moles/Vol] 14 mmol/L 10 - 20 [place] [address] DO Work Phone: Calcium [Mass/Vol] 7.9 mg/dL below low threshold 8.6 - 10.6 [place] [address] DO Work Phone: Chloride [Moles/Vol] 96 mmol/L below low threshold 98 - 107 [place] [address] DO Work Phone: CO2 [Moles/Vol] 20 mmol/L below low threshold 21 - 32 [facility] kori 250 DO Work Phone: Creatinine [Mass/Vol] 0.77 mg/dL See Below [place] [address] DO Work Phone: Comment on above: Reference Range: 0.5 0 - 1.05 Glucose [Mass/Vol] 79 mg/dL 74 - 99 [facility] kori 250 DO Work Phone: Phosphate [Mass/Vol] 3.9 mg/dL 2.5 - 4.9 [facility] kori 250 DO Work Phone: Comment on above: The performance andra acteristics of phosphorus testing in heparinized plasma have been validated by the individual laboratory site where testing is performed. Testing on heparinized plasma is not approved by the FDA; however, such approval is not necessary. Potassium [Moles/Vol] 5.8 mmol/L above high threshold 3.5 - 5.3 [facility] [employer] DO Work Phone: Sodium [Moles/Vol] 124 mmol/L below low threshold 136 - 145 [place] [address] DO Work Phone: Urea nitrogen [Mass/Vol] 11 mg/dL 6 - 23 [place] [address] DO Work Phone: Renal Function Panel 78 {mL/min/1.73m2} >90 [place] [address] DO Work Phone: Comment on above: CALCULATIONS OF MOISES MATED GFR ARE PERFORMED USING THE 2020 CKD-EPI STUDY REFIT EQUATION WITHOUT THE RACE VARIABLE FOR THE IDMS-TRACEABLE CREATININE METHODS.https://jasn.asnjournals.org/content/early/A SN.8241491386 Laboratory - Hematology and Cell countson 01-21-2022 Erythrocyte distribution width (RBC) [Ratio] 14.8 % above high threshold See Below [place] [address] DO Work Phone: Comment on above: Reference Range: 11. 5 - 14.5 Hematocrit (Bld) [Volume fraction] 33.4 % below low threshold See Below [facility] [employer]Macarena [employer] DO Work Phone: Comment on above: Reference Range: 36. 0 - 46.0 Hemoglobin (Bld) [Mass/Vol] 10.8 g/dL below low threshold See Below [facility] [employer]Macarena [employer] DO Work Phone: Comment on above: Reference Range: 12. 0 - 16.0 MCHC (RBC) [Mass/Vol] 32.3 g/dL See Below [facility] [employer]Guerita [employer] DO Work Phone: Comment on above: Reference Range: 32. 0 - 36.0 MCV (RBC) [Entitic vol] 91 fL 80 - 100 [facility] [employer] DO Work Phone: Platelets (Bld) [#/Vol] 393 10*3/uL 150 - 450 [facility] [employer]Guerita kori [employer] DO Work Phone: RBC (Bld) [#/Vol] 3.67 {x10E12/L} below low threshold See Below [facility] [employer]Macarena kori [employer] DO Work Phone: Comment on above: Reference Range: 4.0 0 - 5.20 WBC (Bld) [#/Vol] 13.1 10*3/uL above high threshold 4.4 - 11.3 [facility] [employer]Macarena kori [employer] DO Work Phone: Magnesium, Serumon 2 Magnesium [Mass/Vol] 1.94 mg/dL See Below [facility] MobileOCTasa [employer] DO Work Phone: Comment on above: Reference Range: 1.6 0 - 2.40 No Panel Informationon 01-21 0.0 {/100_WBC} 0.0-0.0 [facility] [employer]Guerita [employer] DO Work Phone: Renal Function Panelon 01-21 Albumin BCP dye [Mass/Vol] 3.1 g/dL below low threshold 3.4 - 5.0 [facility] DO Work Phone: Anion gap [Moles/Vol] 14 mmol/L 10 - 20 [place] [address] DO Work Phone: Calcium [Mass/Vol] 8.1 mg/dL below low threshold 8.6 - 10.6 [place] [address] DO Work Phone: Chloride [Moles/Vol] 93 mmol/L below low threshold 98 - 107 [place] [address] DO Work Phone: CO2 [Moles/Vol] 20 mmol/L below low threshold 21 - 32 [place] [address] DO Work Phone: Creatinine [Mass/Vol] 0.70 mg/dL See Below [place] [address] DO Work Phone: Comment on above: Reference Range: 0.5 0 - 1.05 Glucose [Mass/Vol] 117 mg/dL above high threshold 74 - 99 [place] [address] DO Work Phone: Phosphate [Mass/Vol] 2.9 mg/dL 2.5 - 4.9 [place] [address] DO Work Phone: Comment on above: The [...] Potassium [Moles/Vol] 5.1 mmol/L 3.5 - 5.3 [place] [address] DO Work Phone: Comment on above: MILD HEMOLYSIS DETEC ABENA. The result may be falsely elevated due tohemolysis or other interferents. Clinical correlation is recommended.Repeat testing may be considered. Sodium [Moles/Vol] 122 mmol/L below low threshold 136 - 145 [facility] [employer] DO Work Phone: Urea nitrogen [Mass/Vol] 8 mg/dL 6 - 23 [facility]Prov[facility] [employer] DO Work Phone: Renal Function Panel 87 {mL/min/1.73m2} >90 [facility]Prov[facility] [employer] DO Work Phone: Comment on above: CALCULATIONS OF MOISES MATED GFR ARE PERFORMED USING THE 2020 CKD-EPI STUDY REFIT EQUATION WITHOUT THE RACE VARIABLE FOR THE IDMS-TRACEABLE CREATININE METHODS.https://jasn.asnjournals.org/content/early//A SN.9983204481 Laboratory - Hematology and Cell countson 01-20-2022 Erythrocyte distribution width (RBC) [Ratio] 14.2 % See Below [facility] ServicesProv[facility] [employer] DO Work Phone: Comment on above: Reference Range: 11. 5 - 14.5 Hematocrit (Bld) [Volume fraction] 30.7 % below low threshold See Below [facility] [employer] DO Work Phone: Comment on above: Reference Range: 36. 0 - 46.0 Hemoglobin (Bld) [Mass/Vol] 11.1 g/dL below low threshold See Below [facility] [employer] DO Work Phone: Comment on above: Reference Range: 12. 0 - 16.0 MCHC (RBC) [Mass/Vol] 36.2 g/dL above high threshold See Below [facility] [employer] DO Work Phone: Comment on above: Reference Range: 32. 0 - 36.0 MCV (RBC) [Entitic vol] 84 fL 80 - 100 [facility] [employer] DO Work Phone: Platelets (Bld) [#/Vol] 382 10*3/uL 150 - 450 [facility] Sai sheikh 250 DO Work Phone: RBC (Bld) [#/Vol] 3.65 {x10E12/L} below low threshold See Below [facility] Becky kori 250 DO Work Phone: Comment on above: Reference Range: 4.0 0 - 5.20 WBC (Bld) [#/Vol] 14.9 10*3/uL above high threshold 4.4 - 11.3 [facility] NickGuerita kori 250 DO Work Phone: Magnesium, Serumon Magnesium [Mass/Vol] 1.77 mg/dL See Below [facility] Becky kori 250 DO Work Phone: Comment on above: Reference Range: 1.6 0 - 2.40 No Panel Informationon 01-20 0.0 {/100_WBC} 0.0-0.0 [facility]Guerit[facility] 250 DO Work Phone: Radiologyon 01-20-2022 XR Chest 2 Views Normal [place] [address] DO Work Phone: Renal Function Panelon 01-20 Albumin BCP dye [Mass/Vol] 3.1 g/dL below low threshold 3.4 - 5.0 [facility] DO Work Phone: Anion gap [Moles/Vol] 12 mmol/L 10 - 20 [facility] 250 DO Work Phone: Calcium [Mass/Vol] 8.2 mg/dL below low threshold 8.6 - 10.6 [facility] 250 DO Work Phone: Chloride [Moles/Vol] 92 mmol/L below low threshold 98 - 107 [facility] 250 DO Work Phone: CO2 [Moles/Vol] 22 mmol/L 21 - 32 [facility] 250 DO Work Phone: Creatinine [Mass/Vol] 0.71 mg/dL See Below [place] [address] DO Work Phone: Comment on above: Reference Range: 0.5 0 - 1.05 Glucose [Mass/Vol] 77 mg/dL 74 - 99 [facility] 250 DO Work Phone: Phosphate [Mass/Vol] 3.2 mg/dL 2.5 - 4.9 [facility] 250 DO Work Phone: Comment on above: The performance andra acteristics of phosphorus testing in heparinized plasma have been validated by the individual laboratory site where testing is performed. Testing on heparinized plasma is not approved by the FDA; however, such approval is not necessary. Potassium [Moles/Vol] 4.4 mmol/L 3.5 - 5.3 [place] [address] DO Work Phone: Sodium [Moles/Vol] 122 mmol/L below low threshold 136 - 145 [place] [address] DO Work Phone: Urea nitrogen [Mass/Vol] 9 mg/dL 6 - 23 [place] [address] DO Work Phone: Renal Function Panel 86 {mL/min/1.73m2} >90 [place] [address] DO Work Phone: Comment on above: CALCULATIONS OF MOISES MATED GFR ARE PERFORMED USING THE 2020 CKD-EPI STUDY REFIT EQUATION WITHOUT THE RACE VARIABLE FOR THE IDMS-TRACEABLE CREATININE METHODS.https://jasn.asnjournals.org/content//A SN.8672711065 Albumin BCP dye [Mass/Vol] 3.1 g/dL below low threshold 3.4 - 5.0 [place] [address] DO Work Phone: Anion gap [Moles/Vol] 16 mmol/L 10 - 20 [place] [address] DO Work Phone: Calcium [Mass/Vol] 8.1 mg/dL below low threshold 8.6 - 10.6 [place] [address] DO Work Phone: Chloride [Moles/Vol] 91 mmol/L below low threshold 98 - 107 [place] [address] DO Work Phone: CO2 [Moles/Vol] 19 mmol/L below low threshold 21 - 32 [place] [address] DO Work Phone: Creatinine [Mass/Vol] 0.64 mg/dL See Below [place] [address] DO Work Phone: Comment on above: Reference Range: 0.5 0 - 1.05 Glucose [Mass/Vol] 72 mg/dL below low threshold 74 - 99 [place] [address] DO Work Phone: Phosphate [Mass/Vol] 3.6 mg/dL 2.5 - 4.9 [facility] 250 DO Work Phone: Comment on above: The performance andra acteristics of phosphorus testing in heparinized plasma have been validated by the individual laboratory site where testing is performed. Testing on heparinized plasma is not approved by the FDA; however, such approval is not necessary. Potassium [Moles/Vol] 4.9 mmol/L 3.5 - 5.3 [place] [address] DO Work Phone: Sodium [Moles/Vol] 121 mmol/L below low threshold 136 - 145 [place] [address] DO Work Phone: Urea nitrogen [Mass/Vol] 8 mg/dL 6 - 23 [place] [address] DO Work Phone: Renal Function Panel 89 {mL/min/1.73m2} >90 [place] [address] DO Work Phone: Comment on above: CALCULATIONS OF MOISES MATED GFR ARE PERFORMED USING THE 2020 CKD-EPI STUDY REFIT EQUATION WITHOUT THE RACE VARIABLE FOR THE IDMS-TRACEABLE CREATININE METHODS.https://jasn.asnjournals.org/content//A SN.7940478556 Amylase, Body Fluidon 2021 Amylase (Body fld) [Catalytic activity/Vol] 10 U/L [facility] [employer] kori 250 DO Work Phone: Comment on above: SOURCE: Pleural flui d (thoracentesis fld)REF VALUENOT ESTABLISHEDThe performance characteristics of this test have beenvalidated by the [facility] laboratory. This test has not been approved by the FDA; however, such approval is not necessary. Cell Count + Differential, B heather Fluidon 01-19-2022 WBC (Bld) [#/Vol] 0.614 10*3/uL MP-N [facility] MobileOCTu kori 250 DO Work Phone: Cell Count + Differential, Body Fluid [address] [facility] 250 DO Work Phone: [phone] Cell Count + Differential, Body Fluid 1 % [facility] Work Phone: Cell Count + Differential, Body Fluid 47 % [facility] DO Work Phone: Cell Count + Differential, Body Fluid 16 % [facility] kori 250 DO Work Phone: Cell Count + Differential, Body Fluid 36 % [facility] kori 250 DO Work Phone: Cell Count + Differential, Body Fluid 702146 /uL [facility] kori 250 DO Work Phone: [phone] Cell Count, Fluidon 01-20-20 22 WBC (Bld) [#/Vol] 0.605 10*3/uL MP-N [facility] kori 250 DO Work Phone: [phone] Cell Count, Fluid 367443 /uL [facility] kori 250 DO Work Phone: [phone] Cell Count, Fluid Cloudy CLEAR MP-Nort [facility] 250 DO Work Phone: Cell Count, Fluid Red YELLOW -[facility] 250 DO Work Phone: Comment on above: SOURCE: Pleural flui d (thoracentesis fld) Cult, AFB, Misc.+ smearon Mycobacterium sp identified Org specific cx Nom (Unsp spec) [place] [address] DO Work Phone: Cult, Body Fluid, + smearon 01-19-2022 Bacteria identified Cx Nom (Body fld) [place] [address] DO Work Phone: Cult, Fungus +smearon 2021 Fungus identified Cx Nom (Unsp spec) [place] [address] DO Work Phone: Cult, Urineon 01-19-2022 Bacteria identified Cx Nom (U) Abnormal [place] [address] DO Work Phone: Glucose, Fluidon 01-19-2022 Glucose (Body fld) [Mass/Vol] 134 mg/dL [place] [address] DO Work Phone: Comment on above: SOURCE: Pleural flui d (thoracentesis fld)REF VALUENOT ESTABLISHEDThe performance characteristics of this test have beenvalidated by the [facility] laboratory. This test has not been approved by the FDA; however, such approval is not necessary. Laboratory - Chemistry and C hemistry - challengeon 01-19-2022 Creatinine (U) [Mass/Vol] 49.0 mg/dL See Below [place] [address] DO Work Phone: Comment on above: Reference Range: 20. 0 - 320.0 Osmolality (U) [Osmolality] 250 mosm/kg 200 - 1200 [place] [address] DO Work Phone: Potassium (U) [Moles/Vol] 27 mmol/L See Below [place] [address] DO Work Phone: Comment on above: Reference Range: Not Established Potassium/Creatinine (U) [Molar ratio] 55 {mmol/g_Creat} See Below [facility] Barry DO Work Phone: Comment on above: Reference Range: Not Established Sodium (U) [Moles/Vol] 41 mmol/L See Below [place] [address] DO Work Phone: Comment on above: Reference Range: Not Established Sodium/Creatinine (U) [Ratio] 84 {mmol/g_Creat} See Below [facility] kori Jhonny DO Work Phone: Comment on above: Reference Range: Not Established Urea nitrogen (U) [Mass/Vol] 250 mg/dL See Below [facility] ClinicGuerita [facility] DO Work Phone: Comment on above: Reference Range: Not Established Urea/Creatinine (U) [Molar ratio] 5.1 {g/g_Creat} See Below [facility] ClinicMacarena padillay [employer] DO Work Phone: Comment on above: Reference Range: Not Established Laboratory - Hematology and Cell countson 01-19-2022 Erythrocyte distribution width (RBC) [Ratio] 14.6 % above high threshold See Below [facility] ClinicMacarena [facility]illamem[facility] DO Work Phone: Comment on above: Reference Range: 11. 5 - 14.5 Hematocrit (Bld) [Volume fraction] 34.4 % below low threshold See Below [facility] kori [employer] DO Work Phone: Comment on above: Reference Range: 36. 0 - 46.0 Hemoglobin (Bld) [Mass/Vol] 11.6 g/dL below low threshold See Below [facility]. [facility] kori [employer] DO Work Phone: Comment on above: Reference Range: 12. 0 - 16.0 MCHC (RBC) [Mass/Vol] 33.7 g/dL See Below [place] [address] DO Work Phone: Comment on above: Reference Range: 32. 0 - 36.0 MCV (RBC) [Entitic vol] 89 fL 80 - 100 [facility] NickMacarena padillay Jhonny DO Work Phone: Platelets (Bld) [#/Vol] 392 10*3/uL 150 - 450 [facility] Jhonny DO Work Phone: [phone] RBC (Bld) [#/Vol] 3.85 {x10E12/L} below low threshold See Below [facility] NickMacarena padillay Jhonny DO Work Phone: [phone] Comment on above: Reference Range: 4.0 0 - 5.20 WBC (Bld) [#/Vol] 19.0 10*3/uL above high threshold 4.4 - 11.3 [facility] NickGuerita [facility] DO Work Phone: Magnesium, Serumon 2 Magnesium [Mass/Vol] 1.74 mg/dL See Below [facility] Becky kori Jhonny DO Work Phone: Comment on above: Reference Range: 1.6 0 - 2.40 No Panel Informationon 01-19 84 {mmol/g_Creat} 38 - 318 [facility] Sai padillay Jhonny DO Work Phone: 41 mmol/L See Below [facility] Clinic[facility] Jhonny DO Work Phone: Comment on above: Reference Range: Not Established Normal [facility] Jhonny DO Work Phone: 230 U/L [facility] Jhonny DO Work Phone: Comment on above: SOURCE: Pleural flui d (thoracentesis fld)REF VALUENOT ESTABLISHEDThe performance characteristics of this test have beenvalidated by the [facility] laboratory. This test has not been approved by the FDA; however, such approval is not necessary. 0.0 {/100_WBC} 0.0-0.0 [facility] Becky kori Jhonny DO Work Phone: Osmolality, Serumon 01-20-20 22 Osmolality [Osmolality] 252 {mOsm/kg_H2O} below low threshold 280 - 300 [place] [address] DO Work Phone: Radiologyon 01-19-2022 XR Chest Single view Normal [place] [address] DO Work Phone: Renal Function Panelon 01-19 Albumin BCP dye [Mass/Vol] 3.3 g/dL below low threshold 3.4 - 5.0 [place] [address] DO Work Phone: Anion gap [Moles/Vol] 14 mmol/L 10 - 20 [place] [address] DO Work Phone: Calcium [Mass/Vol] 7.5 mg/dL below low threshold 8.6 - 10.6 [place] [address] DO Work Phone: Chloride [Moles/Vol] 88 mmol/L below low threshold 98 - 107 [place] [address] DO Work Phone: CO2 [Moles/Vol] 23 mmol/L 21 - 32 [place] [address] DO Work Phone: Creatinine [Mass/Vol] 0.58 mg/dL See Below [place] [address] DO Work Phone: Comment on above: Reference Range: 0.5 0 - 1.05 Glucose [Mass/Vol] 82 mg/dL 74 - 99 [facility] 250 DO Work Phone: Phosphate [Mass/Vol] 3.0 mg/dL 2.5 - 4.9 [facility] 250 DO Work Phone: Comment on above: The performance andra acteristics of phosphorus testing in heparinized plasma have been validated by the individual laboratory site where testing is performed. Testing on heparinized plasma is not approved by the FDA; however, such approval is not necessary. Potassium [Moles/Vol] 4.4 mmol/L 3.5 - 5.3 [facility] kori 250 DO Work Phone: Sodium [Moles/Vol] 121 mmol/L below low threshold 136 - 145 [facility] 250 DO Work Phone: Urea nitrogen [Mass/Vol] 8 mg/dL 6 - 23 [place] [address] DO Work Phone: Renal Function Panel >90 >90 [facility] 250 DO Work Phone: Comment on above: CALCULATIONS OF MOISES MATED GFR ARE PERFORMED USING THE 2020 CKD-EPI STUDY REFIT EQUATION WITHOUT THE RACE VARIABLE FOR THE IDMS-TRACEABLE CREATININE METHODS.https://jasn.asnjournals.org/content//A SN.8836414410 Albumin BCP dye [Mass/Vol] 3.1 g/dL below low threshold 3.4 - 5.0 [facility] kori [employer] DO Work Phone: Anion gap [Moles/Vol] 16 mmol/L 10 - 20 [place] [address] DO Work Phone: Calcium [Mass/Vol] 7.9 mg/dL below low threshold 8.6 - 10.6 [place] [address] DO Work Phone: Chloride [Moles/Vol] 91 mmol/L below low threshold 98 - 107 [facility] 250 DO Work Phone: CO2 [Moles/Vol] 19 mmol/L below low threshold 21 - 32 [facility] [employer] DO Work Phone: Creatinine [Mass/Vol] 0.58 mg/dL See Below [place] [address] DO Work Phone: Comment on above: Reference Range: 0.5 0 - 1.05 Glucose [Mass/Vol] 125 mg/dL above high threshold 74 - 99 [facility] 250 DO Work Phone: Phosphate [Mass/Vol] 3.0 mg/dL 2.5 - 4.9 [facility] DO Work Phone: Comment on above: The performance andra acteristics of phosphorus testing in heparinized plasma have been validated by the individual laboratory site where testing is performed. Testing on heparinized plasma is not approved by the FDA; however, such approval is not necessary. Potassium [Moles/Vol] 4.6 mmol/L 3.5 - 5.3 [place] [address] DO Work Phone: Sodium [Moles/Vol] 121 mmol/L below low threshold 136 - 145 [place] [address] DO Work Phone: Urea nitrogen [Mass/Vol] 9 mg/dL 6 - 23 [place] [address] DO Work Phone: Renal Function Panel >90 >90 [place] [address] DO Work Phone: Comment on above: CALCULATIONS OF MOISES MATED GFR ARE PERFORMED USING THE 2020 CKD-EPI STUDY REFIT EQUATION WITHOUT THE RACE VARIABLE FOR THE IDMS-TRACEABLE CREATININE METHODS.https://jasn.asnjournals.org/content/early/A SN.4898249566 Total Protein, Body Fluidon 01-19-2022 Protein (Body fld) [Mass/Vol] 2.7 g/dL [place] [address] DO Work Phone: Comment on above: SOURCE: Pleural flui d (thoracentesis fld)REF VALUENOT ESTABLISHEDThe performance characteristics of this test have beenvalidated by the [facility] laboratory. This test has not been approved by the FDA; however, such approval is not necessary. URINALYSIS WITH CULTURE IF I NDICATEDon 01-19-2022 Protein (U) [Mass/Vol] 100 (2+) Abnormal NEGATIVE [place] [address] DO Work Phone: Specific gravity (U) [Rel density] 1.011 1 See Below [facility] [facility] [employer] DO Work Phone: Comment on above: Reference Range: 1.0 05 - 1.035 Uric Acid, Serumon Urate [Mass/Vol] 4.2 mg/dL 2.3 - 6.7 [facility] [employer] DO Work Phone: Comment on above: Venipuncture immedia tely after or during the administration of Metamizole may lead to falsely low results. Testing should be performed immediately prior to Metamizole dosing. Urinalysison 01-19-2022 Color (U) YELLOW See Below [facility] [employer] DO Work Phone: Comment on above: Reference Range: STR AW,YELLOW Glucose Ql (U) Negative NEGATIVE [facility] [employer] DO Work Phone: Ketones Ql (U) Negative NEGATIVE [facility] [employer] DO Work Phone: Leukocyte esterase Test strip Ql (U) LARGE (3+) Abnormal NEGATIVE [facility] [employer] DO Work Phone: pH (U) 7.0 [pH] 5.0 - 8.0 [facility] [employer] DO Work Phone: Protein (U) [Mass/Vol] 30 (1+) Abnormal NEGATIVE [facility] [employer] DO Work Phone: RBC (U) [#/Vol] LARGE (3+) Abnormal NEGATIVE [facility] [place] 250 DO Work Phone: Specific gravity (U) [Rel density] 1.010 1 See Below [facility] [employer] DO Work Phone: Comment on above: Reference Range: 1.0 05 - 1.035 Urinalysis Negative NEGATIVE [facility] [employer] DO Work Phone: Urinalysis <2.0 0.0 - 1.9 [facility] 250 DO Work Phone: Urinalysis HAZY CLEAR [facility] 250 DO Work Phone: Urinalysis, Microscopicon Urinalysis, Microscopic <1 [facility] 250 DO Work Phone: Urinalysis, Microscopic >182 Abnormal 0-5 [facility] 250 DO Work Phone: Urinalysis, Microscopic RARE [facility] 250 DO Work Phone: Urinalysis, Microscopic 1+ [facility] 250 DO Work Phone: [phone] Urinalysis, Microscopic 396 {/HPF} Abnormal 0-5 [place] [address] DO Work Phone: Urinalysis, Microscopic 658 {/HPF} Abnormal 0-5 [facility] 250 DO Work Phone: Laboratory - Hematology and Cell countson 01-18-2022 Erythrocyte distribution width (RBC) [Ratio] 14.5 % See Below [place] [address] DO Work Phone: Comment on above: Reference Range: 11. 5 - 14.5 Hematocrit (Bld) [Volume fraction] 35.0 % below low threshold See Below [place] [address] DO Work Phone: Comment on above: Reference Range: 36. 0 - 46.0 Hemoglobin (Bld) [Mass/Vol] 11.7 g/dL below low threshold See Below [place] [address] DO Work Phone: Comment on above: Reference Range: 12. 0 - 16.0 MCHC (RBC) [Mass/Vol] 33.4 g/dL See Below [place] [address] DO Work Phone: Comment on above: Reference Range: 32. 0 - 36.0 MCV (RBC) [Entitic vol] 90 fL 80 - 100 [facility] Sai sheikh 250 DO Work Phone: Platelets (Bld) [#/Vol] 390 10*3/uL 150 - 450 [facility] Sai padillay 250 DO Work Phone: RBC (Bld) [#/Vol] 3.90 {x10E12/L} below low threshold See Below [facility] Sai Barry DO Work Phone: [phone] Comment on above: Reference Range: 4.0 0 - 5.20 WBC (Bld) [#/Vol] 14.4 10*3/uL above high threshold 4.4 - 11.3 [facility] Becky kori Jhonny DO Work Phone: Magnesium, Serumon Magnesium [Mass/Vol] 1.82 mg/dL See Below [facility] Sai padillay 250 DO Work Phone: Comment on above: Reference Range: 1.6 0 - 2.40 No Panel Informationon 01-18 0.0 {/100_WBC} 0.0-0.0 [facility] Sai sheikh 250 DO Work Phone: Radiologyon 01-18-2022 XR Chest Single view Normal [facility] Sai padillay 250 DO Work Phone: Renal Function Panelon 01-18 Albumin BCP dye [Mass/Vol] 3.3 g/dL below low threshold 3.4 - 5.0 [facility] padillay 250 DO Work Phone: Anion gap [Moles/Vol] 14 mmol/L 10 - 20 [facility] kori 250 DO Work Phone: Calcium [Mass/Vol] 8.2 mg/dL below low threshold 8.6 - 10.6 [facility] DO Work Phone: Chloride [Moles/Vol] 91 mmol/L below low threshold 98 - 107 [facility] [employer] DO Work Phone: CO2 [Moles/Vol] 23 mmol/L 21 - 32 [place] [address] DO Work Phone: Creatinine [Mass/Vol] 0.73 mg/dL See Below [place] [address] DO Work Phone: Comment on above: Reference Range: 0.5 0 - 1.05 Glucose [Mass/Vol] 90 mg/dL 74 - 99 [facility] kori [employer] DO Work Phone: Phosphate [Mass/Vol] 3.3 mg/dL 2.5 - 4.9 [facility] [employer] DO Work Phone: Comment on above: The performance andra acteristics of phosphorus testing in heparinized plasma have been validated by the individual laboratory site where testing is performed. Testing on heparinized plasma is not approved by the FDA; however, such approval is not necessary. Potassium [Moles/Vol] 4.1 mmol/L 3.5 - 5.3 [place] [address] DO Work Phone: Sodium [Moles/Vol] 124 mmol/L below low threshold 136 - 145 [place] [address] DO Work Phone: Urea nitrogen [Mass/Vol] 10 mg/dL 6 - 23 [place] [address] DO Work Phone: Renal Function Panel 83 {mL/min/1.73m2} >90 [place] [address] DO Work Phone: Comment on above: CALCULATIONS OF MOISES MATED GFR ARE PERFORMED USING THE 2020 CKD-EPI STUDY REFIT EQUATION WITHOUT THE RACE VARIABLE FOR THE IDMS-TRACEABLE CREATININE METHODS.https://jasn.asnjournals.org/content//A SN.5319533070 Laboratory - Hematology and Cell countson 01-17-2022 Erythrocyte distribution width (RBC) [Ratio] 14.4 % See Below [facility] kori 250 DO Work Phone: Comment on above: Reference Range: 11. 5 - 14.5 Hematocrit (Bld) [Volume fraction] 33.4 % below low threshold See Below [facility] [employer] kori 250 DO Work Phone: Comment on above: Reference Range: 36. 0 - 46.0 Hemoglobin (Bld) [Mass/Vol] 11.2 g/dL below low threshold See Below [facility] [employer] DO Work Phone: Comment on above: Reference Range: 12. 0 - 16.0 MCHC (RBC) [Mass/Vol] 33.5 g/dL See Below [facility] [employer] DO Work Phone: Comment on above: Reference Range: 32. 0 - 36.0 MCV (RBC) [Entitic vol] 90 fL 80 - 100 [facility] InstituteTVS Logistics ServicesUnimed [facility] kori [employer] DO Work Phone: Platelets (Bld) [#/Vol] 325 10*3/uL 150 - 450 [facility] [employer] k[employer] DO Work Phone: RBC (Bld) [#/Vol] 3.73 {x10E12/L} below low threshold See Below [facility] [employer] DO Work Phone: Comment on above: Reference Range: 4.0 0 - 5.20 WBC (Bld) [#/Vol] 13.2 10*3/uL above high threshold 4.4 - 11.3 [facility] [employer] DO Work Phone: Magnesium, Serumon 2 Magnesium [Mass/Vol] 1.83 mg/dL See Below [facility] [employer] DO Work Phone: Comment on above: Reference Range: 1.6 0 - 2.40 No Panel Informationon 01-17 0.0 {/100_WBC} 0.0-0.0 [facility] [employer] kori 250 DO Work Phone: Renal Function Panelon 01-17 Albumin BCP dye [Mass/Vol] 2.8 g/dL below low threshold 3.4 - 5.0 [place] [address] DO Work Phone: Anion gap [Moles/Vol] 14 mmol/L 10 - 20 [place] [address] DO Work Phone: Calcium [Mass/Vol] 8.1 mg/dL below low threshold 8.6 - 10.6 [place] [address] DO Work Phone: Chloride [Moles/Vol] 96 mmol/L below low threshold 98 - 107 [place] [address] DO Work Phone: CO2 [Moles/Vol] 21 mmol/L 21 - 32 [place] [address] DO Work Phone: Creatinine [Mass/Vol] 0.64 mg/dL See Below [place] [address] DO Work Phone: Comment on above: Reference Range: 0.5 0 - 1.05 Glucose [Mass/Vol] 79 mg/dL 74 - 99 [place] [address] DO Work Phone: Phosphate [Mass/Vol] 3.5 mg/dL 2.5 - 4.9 [place] [address] DO Work Phone: Comment on above: The performance andra acteristics of phosphorus testing in heparinized plasma have been validated by the individual laboratory site where testing is performed. Testing on heparinized plasma is not approved by the FDA; however, such approval is not necessary. Potassium [Moles/Vol] 4.3 mmol/L 3.5 - 5.3 [place] [address] DO Work Phone: Sodium [Moles/Vol] 127 mmol/L below low threshold 136 - 145 [place] [address] DO Work Phone: Urea nitrogen [Mass/Vol] 11 mg/dL 6 - 23 [facility] [employer] DO Work Phone: Renal Function Panel 89 {mL/min/1.73m2} >90 [facility] [employer] DO Work Phone: Comment on above: CALCULATIONS OF MOISES MATED GFR ARE PERFORMED USING THE 2020 CKD-EPI STUDY REFIT EQUATION WITHOUT THE RACE VARIABLE FOR THE IDMS-TRACEABLE CREATININE METHODS.https://jasn.asnjournals.org/content/early/A .7139316150 Laboratory - Hematology and Cell countson 01-16-2022 Erythrocyte distribution width (RBC) [Ratio] 14.6 % above high threshold See Below [facility] [employer] DO Work Phone: Comment on above: Reference Range: 11. 5 - 14.5 Hematocrit (Bld) [Volume fraction] 33.9 % below low threshold See Below [facility] [employer] DO Work Phone: Comment on above: Reference Range: 36. 0 - 46.0 Hemoglobin (Bld) [Mass/Vol] 11.7 g/dL below low threshold See Below [facility] [employer] DO Work Phone: Comment on above: Reference Range: 12. 0 - 16.0 MCHC (RBC) [Mass/Vol] 34.5 g/dL See Below [facility] [employer] kori [employer] DO Work Phone: Comment on above: Reference Range: 32. 0 - 36.0 MCV (RBC) [Entitic vol] 89 fL 80 - 100 [facility] [employer]HQRegeneMed [employer] DO Work Phone: Platelets (Bld) [#/Vol] 285 10*3/uL 150 - 450 [facility] kori [employer] DO Work Phone: RBC (Bld) [#/Vol] 3.80 {x10E12/L} below low threshold See Below [facility] [employer] DO Work Phone: Comment on above: Reference Range: 4.0 0 - 5.20 WBC (Bld) [#/Vol] 12.4 10*3/uL above high threshold 4.4 - 11.3 [facility] [employer]asa [employer] DO Work Phone: Magnesium, Serumon 2 Magnesium [Mass/Vol] 1.85 mg/dL See Below [facility] [employer] kori 250 DO Work Phone: Comment on above: Reference Range: 1.6 0 - 2.40 No Panel Informationon 01-16 0.0 {/100_WBC} 0.0-0.0 [facility] [employer] DO Work Phone: Renal Function Panelon 01-16 Albumin BCP dye [Mass/Vol] 2.9 g/dL below low threshold 3.4 - 5.0 [facility] [employer] k[employer] DO Work Phone: Anion gap [Moles/Vol] 14 mmol/L 10 - 20 [facility] CenterTVS Logistics ServicesUnim[facility] Center kori [employer] DO Work Phone: Calcium [Mass/Vol] 8.3 mg/dL below low threshold 8.6 - 10.6 [facility] [employer] DO Work Phone: Chloride [Moles/Vol] 97 mmol/L below low threshold 98 - 107 [facility] [employer] kori [employer] DO Work Phone: CO2 [Moles/Vol] 23 mmol/L 21 - 32 [facility] [employer] [employer] DO Work Phone: Creatinine [Mass/Vol] 0.53 mg/dL See Below [facility] [employer] [employer] DO Work Phone: Comment on above: Reference Range: 0.5 0 - 1.05 Glucose [Mass/Vol] 81 mg/dL 74 - 99 [facility] [place] 250 DO Work Phone: Phosphate [Mass/Vol] 2.8 mg/dL 2.5 - 4.9 [place] [address] DO Work Phone: Comment on above: The performance andra acteristics of phosphorus testing in heparinized plasma have been validated by the individual laboratory site where testing is performed. Testing on heparinized plasma is not approved by the FDA; however, such approval is not necessary. Potassium [Moles/Vol] 4.8 mmol/L 3.5 - 5.3 [place] [address] DO Work Phone: Sodium [Moles/Vol] 129 mmol/L below low threshold 136 - 145 [place] [address] DO Work Phone: Urea nitrogen [Mass/Vol] 13 mg/dL 6 - 23 [place] [address] DO Work Phone: Renal Function Panel >90 >90 [place] [address] DO Work Phone: Comment on above: CALCULATIONS OF MOISES MATED GFR ARE PERFORMED USING THE 2020 CKD-EPI STUDY REFIT EQUATION WITHOUT THE RACE VARIABLE FOR THE IDMS-TRACEABLE CREATININE METHODS.https://jasn.asnjournals.org/content//A SN.0045308269 Laboratory - Chemistry and C hemistry - challengeon 01-15-2022 Glucose [Mass/Vol] 128 mg/dL above high threshold 74 - 99 [place] [address] DO Work Phone: Glucose [Mass/Vol] 141 mg/dL above high threshold 74 - 99 [facility] 250 DO Work Phone: Glucose [Mass/Vol] 75 mg/dL 74 - 99 [facility] 250 DO Work Phone: Glucose [Mass/Vol] 83 mg/dL 74 - 99 [facility] 250 DO Work Phone: Laboratory - Hematology and Cell countson 01-15-2022 Erythrocyte distribution width (RBC) [Ratio] 14.7 % above high threshold See Below [facility] [employer] kori 250 DO Work Phone: Comment on above: Reference Range: 11. 5 - 14.5 Hematocrit (Bld) [Volume fraction] 31.5 % below low threshold See Below [facility] [employer] kori 250 DO Work Phone: Comment on above: Reference Range: 36. 0 - 46.0 Hemoglobin (Bld) [Mass/Vol] 10.6 g/dL below low threshold See Below [facility] [employer] DO Work Phone: Comment on above: Reference Range: 12. 0 - 16.0 MCHC (RBC) [Mass/Vol] 33.7 g/dL See Below [facility] kori [employer] DO Work Phone: Comment on above: Reference Range: 32. 0 - 36.0 MCV (RBC) [Entitic vol] 89 fL 80 - 100 [facility] kori [employer] DO Work Phone: Platelets (Bld) [#/Vol] 234 10*3/uL 150 - 450 [facility] kori [employer] DO Work Phone: RBC (Bld) [#/Vol] 3.52 {x10E12/L} below low threshold See Below [facility] [employer] kori [employer] DO Work Phone: Comment on above: Reference Range: 4.0 0 - 5.20 WBC (Bld) [#/Vol] 12.6 10*3/uL above high threshold 4.4 - 11.3 [facility] kori [employer] DO Work Phone: Magnesium, Serumon 2 Magnesium [Mass/Vol] 1.96 mg/dL See Below [facility] [employer] kori [employer] DO Work Phone: Comment on above: Reference Range: 1.6 0 - 2.40 No Panel Informationon 01-15 0.0 {/100_WBC} 0.0-0.0 [facility] 250 DO Work Phone: Radiologyon 01-15-2022 XR Chest 2 Views Normal [place] [address] DO Work Phone: Renal Function Panelon 01-15 Albumin BCP dye [Mass/Vol] 2.9 g/dL below low threshold 3.4 - 5.0 [facility] 250 DO Work Phone: Anion gap [Moles/Vol] 13 mmol/L 10 - 20 [facility] 250 DO Work Phone: Calcium [Mass/Vol] 8.1 mg/dL below low threshold 8.6 - 10.6 [place] [address] DO Work Phone: Chloride [Moles/Vol] 100 mmol/L 98 - 107 [facility]HQ[facility] 250 DO Work Phone: CO2 [Moles/Vol] 22 mmol/L 21 - 32 [facility] 250 DO Work Phone: Creatinine [Mass/Vol] 0.67 mg/dL See Below [place] [address] DO Work Phone: Comment on above: Reference Range: 0.5 0 - 1.05 Glucose [Mass/Vol] 74 mg/dL 74 - 99 [facility] ServicesTVS Logistics ServicesUnim[facility] Center kori 250 DO Work Phone: Phosphate [Mass/Vol] 2.8 mg/dL 2.5 - 4.9 [facility] HomeTVS Logistics ServicesUnim[facility] Center kori 250 DO Work Phone: Comment on above: The performance andra acteristics of phosphorus testing in heparinized plasma have been validated by the individual laboratory site where testing is performed. Testing on heparinized plasma is not approved by the FDA; however, such approval is not necessary. Potassium [Moles/Vol] 4.1 mmol/L 3.5 - 5.3 [facility] [employer] DO Work Phone: Sodium [Moles/Vol] 131 mmol/L below low threshold 136 - 145 [facility] [employer] DO Work Phone: Urea nitrogen [Mass/Vol] 15 mg/dL 6 - 23 [facility] [employer] DO Work Phone: Renal Function Panel 88 {mL/min/1.73m2} >90 [facility] [employer] DO Work Phone: Comment on above: CALCULATIONS OF MOISES MATED GFR ARE PERFORMED USING THE 2020 CKD-EPI STUDY REFIT EQUATION WITHOUT THE RACE VARIABLE FOR THE IDMS-TRACEABLE CREATININE METHODS.https://jasn.asnjournals.org/content/early/A SN.7624213151 URINALYSIS WITH CULTURE IF I NDICATEDon 01-15-2022 Color (U) YELLOW See Below [facility] [employer] DO Work Phone: Comment on above: Reference Range: STR AW,YELLOW Glucose Ql (U) Negative NEGATIVE [facility] [employer] DO Work Phone: Ketones Ql (U) 5 (TRACE) Abnormal NEGATIVE [facility] [employer] DO Work Phone: Leukocyte esterase Test strip Ql (U) Negative NEGATIVE [facility] [employer] DO Work Phone: pH (U) 7.0 [pH] 5.0 - 8.0 [facility] [employer] DO Work Phone: Protein (U) [Mass/Vol] Negative NEGATIVE [facility] [employer] DO Work Phone: RBC (U) [#/Vol] SMALL (1+) Abnormal NEGATIVE [facility] [employer] DO Work Phone: Specific gravity (U) [Rel density] 1.011 1 See Below [facility]Prov[facility] [employer] DO Work Phone: Comment on above: Reference Range: 1.0 05 - 1.035 URINALYSIS WITH CULTURE IF INDICATED Negative NEGATIVE [place] [address] DO Work Phone: URINALYSIS WITH CULTURE IF INDICATED <2.0 0.0 - 1.9 [place] [address] DO Work Phone: URINALYSIS WITH CULTURE IF INDICATED CLEAR CLEAR [place] [address] DO Work Phone: Urinalysis, Microscopicon Urinalysis, Microscopic <1 0-5 [place] [address] DO Work Phone: Urinalysis, Microscopic 18 {/HPF} Abnormal 0-5 [place] [address] DO Work Phone: Calcium, Ionized Levelon Calcium, Ionized Level 1.12 mmol/L See Below M [place] [address] DO Work Phone: Comment on above: Reference Range: 1.1 0 - 1.33 The performance characteristics of ionized calcium tested in heparinized plasma or serum have been validated by the individual laboratory site where testing is performed. Testing on heparinized plasma or serum is not approved by the FDA; however, such approval is not necessary. Calcium, Ionized Level 1.13 mmol/L See Below [address] [place] [address] DO Work Phone: Comment on above: Reference [...] Glucose [Mass/Vol] 88 mg/dL 74 - 99 [facility] 250 DO Work Phone: Glucose [Mass/Vol] 105 mg/dL above high threshold 74 - 99 [place] [address] DO Work Phone: Glucose [Mass/Vol] 96 mg/dL 74 - 99 [facility] [employer]incent kori 250 DO Work Phone: Glucose [Mass/Vol] 83 mg/dL 74 - 99 [facility] DO Work Phone: Glucose [Mass/Vol] 85 mg/dL 74 - 99 [facility] DO Work Phone: Laboratory - Hematology and Cell countson 01-14-2022 Erythrocyte distribution width (RBC) [Ratio] 14.6 % above high threshold See Below [facility] [employer] DO Work Phone: Comment on above: Reference Range: 11. 5 - 14.5 Hematocrit (Bld) [Volume fraction] 28.8 % below low threshold See Below [facility] 250 DO Work Phone: Comment on above: Reference Range: 36. 0 - 46.0 Hemoglobin (Bld) [Mass/Vol] 9.8 g/dL below low threshold See Below [facility] PlanHQGuerita [employer] DO Work Phone: Comment on above: Reference Range: 12. 0 - 16.0 MCHC (RBC) [Mass/Vol] 34.0 g/dL See Below [facility] PlanHQGuerita kori 250 DO Work Phone: Comment on above: Reference Range: 32. 0 - 36.0 MCV (RBC) [Entitic vol] 88 fL 80 - 100 [facility] 250 DO Work Phone: Platelets (Bld) [#/Vol] 209 10*3/uL 150 - 450 [facility] kori [employer] DO Work Phone: RBC (Bld) [#/Vol] 3.26 {x10E12/L} below low threshold See Below [facility] DO Work Phone: Comment on above: Reference Range: 4.0 0 - 5.20 WBC (Bld) [#/Vol] 13.8 10*3/uL above high threshold 4.4 - 11.3 [facility] kori [employer] DO Work Phone: Erythrocyte distribution width (RBC) [Ratio] 14.6 % above high threshold See Below [facility] kori [employer] DO Work Phone: Comment on above: Reference Range: 11. 5 - 14.5 Hematocrit (Bld) [Volume fraction] 30.4 % below low threshold See Below [facility] kori [employer] DO Work Phone: Comment on above: Reference Range: 36. 0 - 46.0 Hemoglobin (Bld) [Mass/Vol] 10.7 g/dL below low threshold See Below [facility] kori [employer] DO Work Phone: Comment on above: Reference Range: 12. 0 - 16.0 MCHC (RBC) [Mass/Vol] 35.2 g/dL See Below [place] [address] DO Work Phone: Comment on above: Reference Range: 32. 0 - 36.0 MCV (RBC) [Entitic vol] 86 fL 80 - 100 [facility] [employer] DO Work Phone: Platelets (Bld) [#/Vol] 203 10*3/uL 150 - 450 [place] [address] DO Work Phone: RBC (Bld) [#/Vol] 3.52 {x10E12/L} below low threshold See Below [facility] kori [employer] DO Work Phone: Comment on above: Reference Range: 4.0 0 - 5.20 WBC (Bld) [#/Vol] 14.7 10*3/uL above high threshold 4.4 - 11.3 [facility] [employer] DO Work Phone: Magnesium, Serumon 2 Magnesium [Mass/Vol] 1.89 mg/dL See Below [facility] [employer] kori [employer] DO Work Phone: Comment on above: Reference Range: 1.6 0 - 2.40 Magnesium [Mass/Vol] 1.97 mg/dL See Below [facility] [employer]Macarena kori 250 DO Work Phone: Comment on above: Reference Range: 1.6 0 - 2.40 No Panel Informationon 01-14 0.0 {/100_WBC} 0.0-0.0 [facility] kori 250 DO Work Phone: 0.0 {/100_WBC} 0.0-0.0 [facility] Services[facility] kori 250 DO Work Phone: Radiologyon 01-14-2022 XR Chest Single view Normal [facility] [employer] kori 250 DO Work Phone: Renal Function Panelon 01-14 Albumin BCP dye [Mass/Vol] 3.0 g/dL below low threshold 3.4 - 5.0 [facility] kori [employer] DO Work Phone: Anion gap [Moles/Vol] 12 mmol/L 10 - 20 [facility]TV[facility] ServicesSk[facility] [employer] DO Work Phone: Calcium [Mass/Vol] 8.0 mg/dL below low threshold 8.6 - 10.6 [facility] kori [employer] DO Work Phone: Chloride [Moles/Vol] 97 mmol/L below low threshold 98 - 107 [facility] ServicesUn[facility] kori 250 DO Work Phone: CO2 [Moles/Vol] 22 mmol/L 21 - 32 [facility] 250 DO Work Phone: Creatinine [Mass/Vol] 0.77 mg/dL See Below [facility] kori 250 DO Work Phone: Comment on above: Reference Range: 0.5 0 - 1.05 Glucose [Mass/Vol] 135 mg/dL above high threshold 74 - 99 [facility]TV[facility] ServicesSk[facility] 250 DO Work Phone: Phosphate [Mass/Vol] 2.6 mg/dL 2.5 - 4.9 [facility] kori [employer] DO Work Phone: Comment on above: The performance andra acteristics of phosphorus testing in heparinized plasma have been validated by the individual laboratory site where testing is performed. Testing on heparinized plasma is not approved by the FDA; however, such approval is not necessary. Potassium [Moles/Vol] 4.1 mmol/L 3.5 - 5.3 [place] [address] DO Work Phone: Sodium [Moles/Vol] 127 mmol/L below low threshold 136 - 145 [place] [address] DO Work Phone: Urea nitrogen [Mass/Vol] 16 mg/dL 6 - 23 [place] [address] DO Work Phone: Renal Function Panel 78 {mL/min/1.73m2} >90 [place] [address] DO Work Phone: Comment on above: CALCULATIONS OF MOISES MATED GFR ARE PERFORMED USING THE 2020 CKD-EPI STUDY REFIT EQUATION WITHOUT THE RACE VARIABLE FOR THE IDMS-TRACEABLE CREATININE METHODS.https://jasn.asnjournals.org/content/early//A SN.6253422303 Albumin BCP dye [Mass/Vol] 2.9 g/dL below low threshold 3.4 - 5.0 [place] [address] DO Work Phone: Anion gap [Moles/Vol] 13 mmol/L 10 - 20 [place] [address] DO Work Phone: Calcium [Mass/Vol] 7.8 mg/dL below low threshold 8.6 - 10.6 [place] [address] DO Work Phone: Chloride [Moles/Vol] 98 mmol/L 98 - 107 [place] [address] DO Work Phone: CO2 [Moles/Vol] 22 mmol/L 21 - 32 [place] [address] DO Work Phone: Creatinine [Mass/Vol] 0.72 mg/dL See Below [place] [address] DO Work Phone: Comment on above: Reference Range: 0.5 0 - 1.05 Glucose [Mass/Vol] 99 mg/dL 74 - 99 [facility] 250 DO Work Phone: Phosphate [Mass/Vol] 2.7 mg/dL 2.5 - 4.9 [facility] 250 DO Work Phone: Comment on above: The performance andra acteristics of phosphorus testing in heparinized plasma have been validated by the individual laboratory site where testing is performed. Testing on heparinized plasma is not approved by the FDA; however, such approval is not necessary. Potassium [Moles/Vol] 4.1 mmol/L 3.5 - 5.3 [place] [address] DO Work Phone: Sodium [Moles/Vol] 129 mmol/L below low threshold 136 - 145 [place] [address] DO Work Phone: Urea nitrogen [Mass/Vol] 16 mg/dL 6 - 23 [place] [address] DO Work Phone: Renal Function Panel 85 {mL/min/1.73m2} >90 [place] [address] DO Work Phone: Comment on above: CALCULATIONS OF MOISES MATED GFR ARE PERFORMED USING THE 2020 CKD-EPI STUDY REFIT EQUATION WITHOUT THE RACE VARIABLE FOR THE IDMS-TRACEABLE CREATININE METHODS.https://jasn.asnjournals.org/content//A SN.5568179258 Albumin BCP dye [Mass/Vol] 3.0 g/dL below low threshold 3.4 - 5.0 [place] [address] DO Work Phone: Anion gap [Moles/Vol] 13 mmol/L 10 - 20 [facility] 250 DO Work Phone: Calcium [Mass/Vol] 7.9 mg/dL below low threshold 8.6 - 10.6 [facility] 250 DO Work Phone: Chloride [Moles/Vol] 97 mmol/L below low threshold 98 - 107 [place] [address] DO Work Phone: CO2 [Moles/Vol] 23 mmol/L 21 - 32 [place] [address] DO Work Phone: Creatinine [Mass/Vol] 0.81 mg/dL See Below [place] [address] DO Work Phone: Comment on above: Reference Range: 0.5 0 - 1.05 Glucose [Mass/Vol] 97 mg/dL 74 - 99 [facility] 250 DO Work Phone: Phosphate [Mass/Vol] 3.1 mg/dL 2.5 - 4.9 [facility] 250 DO Work Phone: Comment on above: The performance andra acteristics of phosphorus testing in heparinized plasma have been validated by the individual laboratory site where testing is performed. Testing on heparinized plasma is not approved by the FDA; however, such approval is not necessary. Potassium [Moles/Vol] 4.7 mmol/L 3.5 - 5.3 [place] [address] DO Work Phone: Sodium [Moles/Vol] 128 mmol/L below low threshold 136 - 145 [place] [address] DO Work Phone: Urea nitrogen [Mass/Vol] 16 mg/dL 6 - 23 [place] [address] DO Work Phone: Renal Function Panel 73 {mL/min/1.73m2} >90 [place] [address] DO Work Phone: Comment on above: CALCULATIONS OF MOISES MATED GFR ARE PERFORMED USING THE 2020 CKD-EPI STUDY REFIT EQUATION WITHOUT THE RACE VARIABLE FOR THE IDMS-TRACEABLE CREATININE METHODS.https://jasn.asnjournals.org/content//A SN.6902070280 Activated partial thrombopla stin time (aPTT) in platelet poor plasma by coagulation aOrdered By: Vandana Torres on 01-06-2022 aPTT Coag (PPP) [Time] 61.7 s 25.1-36.5 [facility] Creatinine and Glomerular fi ltration rate.predicted panel (S/P/Bld)Ordered By: Vandana Torres on 01-06-2022 Creatinine [Mass/Vol] 0.78 mg/dL 0.44-1.03 [facility] Estimated glomerular filtrat ion rate (GFR) non- AmericanOrdered By: Vandana Torres on 01-06-2022 GFR/1.73 sq M.predicted among non-blacks MDRD (S/P/Bld) [Vol rate/Area] > 60 mL/Min [facility] No Panel Informationon 01-06 [email or web address] ?RetrieveTestByDateTime?Pa npmgiWH=[id number]&Date=&Time=11%3a46%3a43% 3a00&TestType=ECG&Site=1&O utputType=PDF&Ext=PDF [facility] kori 250 DO Work Phone: Sinus rhythm with occasional Premature ventricular complexes [facility] kori 250 DO Work Phone: Abnormal [facility] kori 250 DO Work Phone: [phone] [facility] kori 250 DO Work Phone: [phone] [facility] kori 250 DO Work Phone: [phone] [facility] kori 250 DO Work Phone: [phone] [facility] kori 250 DO Work Phone: [phone] [facility] kori 250 DO Work Phone: [phone] 1 [facility] kori 250 DO Work Phone: 70 1 [facility] kori 250 DO Work Phone: [phone] [facility] kori 250 DO Work Phone: [phone] [facility] kori 250 DO Work Phone: [phone] [facility] kori 250 DO Work Phone: [phone] 1 [facility] kori 250 DO Work Phone: [phone] 1 [facility] kori 250 DO Work Phone: [phone] [facility] kori 250 DO Work Phone: No Panel InformationOrdered By: Vandana Torres on 01-06-2022 Estimated GFR () > 60 mL/Min [facility] Comment on above: GFR estimated refere nce range: According to KDOQI guidelines, <60 ml/min/1.73m2 is sufficient to diagnose a patient with chronic kidney disease. Pharmacy Creatinine Clearance (Chem 49.24 [facility] Serum or plasma anion gap de terminationOrdered By: Vandana Torres on 01-06-2022 Anion gap [Moles/Vol] 11.8 mmol/L 6.0-15.0 [facility] Serum or plasma calcium rashmi urement (mass/volume)Ordered By: Vandana Torres on 01-06-2022 Calcium [Mass/Vol] 8.5 mg/dL 8.2-10.2 [facility] Serum or plasma chloride reece surement (moles/volume)Ordered By: Vandana Torres on 01-06-2022 Chloride [Moles/Vol] 103 mmol/L 95-114 [facility] Serum or plasma glucose rashmi urement (mass/volume)Ordered By: Vandana Torres on 01-06-2022 Glucose [Mass/Vol] 108 mg/dL 70-100 [facility] Comment on above: ADA recommended refe rence rangeRandom Glucose Reference Range is dependent on time and content of last meal. Glucose of more than 200 mg/dL in a nonstressed, ambulatory subject supports the diagnosis of Diabetes Mellitus. Serum or plasma potassium me asurement (moles/volume)Ordered By: Vandana Torres on 01-06-2022 Potassium [Moles/Vol] 4.1 mmol/L 3.5-5.1 [facility] Serum or plasma sodium measu rement (moles/volume)Ordered By: Vandana Torres on 01-06-2022 Sodium [Moles/Vol] 131 mmol/L 136-146 [facility] Serum or plasma total carbon dioxide measurement (moles/volume)Ordered By: Vandana Torres on 01-06-2022 CO2 [Moles/Vol] 20.3 mmol/L 22.0-30.0 [facility] Serum or plasma urea nitroge n measurement (mass/volume)Ordered By: Vandana Torres on 01-06-2022 Urea nitrogen [Mass/Vol] 11 mg/dL 9-23 [facility] Basophils Auto (Bld) [#/Vol] Ordered By: Gold Patrick on 01-05-2022 Basophils (Bld) [#/Vol] 0.1 10*3/uL 0.0-0.2 [facility] Basophils/100 WBC Auto (Bld) Ordered By: Gold Patrick on 01-05-2022 Basophils/100 WBC (Bld) 1.0 % . [facility] Eosinophils Auto (Bld) [#/Vo l]Ordered By: Gold Patrick on 01-05-2022 Eosinophils (Bld) [#/Vol] 0.2 10*3/uL 0.0-0.45 [facility] Eosinophils/100 WBC Auto (Bl d)Ordered By: Gold Patrick on 01-05-2022 Eosinophils/100 WBC (Bld) 2.9 % . [facility] Erythrocyte distribution wid th Auto (RBC) [Ratio]Ordered By: Gold Patrick on 01-05-2022 Erythrocyte distribution width (RBC) [Ratio] 14.6 % 11.9-15.3 [facility] Hematocrit Auto (Bld) [Volum e fraction]Ordered By: Gold Patrick on 01-05-2022 Hematocrit (Bld) [Volume fraction] 38.3 % 34.0-46.4 [facility] Hemoglobin [Mass/volume] in BloodOrdered By: Gold Patrick on 01-05-2022 Hemoglobin (Bld) [Mass/Vol] 12.8 g/dL 11.8-15.4 [facility] Laboratory - CoagulationOrde red By: Gold Patrick on 01-05-2022 PT Coag (PPP) [Time] 12.4 s 9.0-12.9 [facility] Laboratory - Hematology and Cell countsOrdered By: Gold Patrick on 01-05-2022 Nucleated RBC/100 WBC (Bld) [Ratio] 0.0 % 0-0.5 [facility] Leukocytes [#/volume] in Blo od by Automated countOrdered By: Gold Patrick on 01-05-2022 WBC (Bld) [#/Vol] 7.9 10*3/uL 4.5-11.0 [facility] Lymphocytes Auto (Bld) [#/Vo l]Ordered By: Gold Patrick on 01-05-2022 Lymphocytes (Bld) [#/Vol] 2.0 10*3/uL 1.00-4.8 [facility] Lymphocytes/100 WBC Auto (Bl d)Ordered By: Gold Patrick on 01-05-2022 Lymphocytes/100 WBC (Bld) 25.1 % . [facility] MCH Auto (RBC) [Entitic mass ]Ordered By: Gold Patrick on 01-05-2022 MCH (RBC) [Entitic mass] 28.8 pg 24.7-34.3 [facility] MCHC Auto (RBC) [Mass/Vol]Or dered By: Gold Patrick on 01-05-2022 MCHC (RBC) [Mass/Vol] 33.4 g/dL 32.0-35.0 [facility] MCV Auto (RBC) [Entitic vol] Ordered By: Gold Patrick on 01-05-2022 MCV (RBC) [Entitic vol] 86.4 fL 80-100 [facility] Monocytes Auto (Bld) [#/Vol] Ordered By: Gold Patrick on 01-05-2022 Monocytes (Bld) [#/Vol] 0.7 10*3/uL 0.0-0.8 [facility] Monocytes/100 WBC Auto (Bld) Ordered By: Gold Patrick on 01-05-2022 Monocytes/100 WBC (Bld) 9.2 % . [facility] Neutrophils Auto (Bld) [#/Vo l]Ordered By: Gold Patrick on 01-05-2022 Neutrophils (Bld) [#/Vol] 4.9 10*3/uL 1.8-7.7 [facility] Neutrophils/100 WBC Auto (Bl d)Ordered By: Gold Patrick on 01-05-2022 Neutrophils/100 WBC (Bld) 61.8 % . [facility] No Panel InformationOrdered By: Vandana Torres on 01-05-2022 Urine Osmolality 211 mosm 250-900 [facility] Platelet mean volume Auto (B ld) [Entitic vol]Ordered By: Gold Patrick on 01-05-2022 Platelet mean volume (Bld) [Entitic vol] 9.1 fL 6.3-10.7 [facility] Platelet poor plasma interna tional normalized ratio (INR) by coagulation assay (relatOrdered By: Gold Patrick on 01-05-2022 INR Coag (PPP) [Relative time] 1.1 {INR} [facility] Comment on above: INR Therapeutic Rang e [...] 01-05-2022 Platelets (Bld) [#/Vol] 210 10*3/uL 150-450 [facility] RBC Auto (Bld) [#/Vol]Ordere d By: Gold Patrick on 01-05-2022 RBC (Bld) [#/Vol] 4.43 10*6/uL 3.60-5.00 [facility] Urine sodium measurement (mo les/volume)Ordered By: Vandana Torres on 01-05-2022 Sodium (U) [Moles/Vol] 30.0 mmol/L [facility] Comment on above: No reference range e stablished Cholesterol [Mass/volume] in Serum or PlasmaOrdered By: Jaya Bae on 01-03-2022 Cholesterol [Mass/Vol] 196 mg/dL 140-200 [facility] Comment on above: Chol less than 200 m g/dl low riskChol 201-239 mg/dl borderline riskChol 240 mg/dl and greater high risk Cholesterol in LDL Calc [Mas s/Vol]Ordered By: Jaya Bae on 01-03-2022 Cholesterol in LDL [Mass/Vol] 133 mg/dL 0-100 [facility] Comment on above: LDL ATP III CLASSIFI CATIONLDL less than 100 mg/dL OptimalLDL 100-129 mg/dL Near or above optimalLDL 130-159 mg/dL Borderline highLDL 160-189 mg/dL HighLDL greater than 189 mg/dL Very high Cholesterol in VLDL Calc [Ma ss/Vol]Ordered By: Jaya Bae on 01-03-2022 Cholesterol in VLDL [Mass/Vol] 14 mg/dL [facility] Laboratory - Chemistry and C hemistry - challengeOrdered By: Jaya Bae on 01-03-2022 Cobalamin (Vitamin B12) [Mass/Vol] 458 pg/mL 180-914 [facility] Magnesium [Mass/Vol] 2.0 mg/dL 1.6-2.6 [facility] No Panel InformationOrdered By: Jaya Bae on 01-03-2022 25-Hydroxy Vitamin D Total 42.8 ng/mL 30-100 [facility] Comment on above: VITAMIN D STATUS 25( [place])VITAMIN D RANGE (ng/mL) Deficient <20 Insufficient 20 to <30Sufficient 30 to 100Reference: Kasey MF,Ranjeet NC, Earl REYES, et al. Evaluation,treatment, and prevention of vitamin D deficiency; an Endocrine Society clinical practice guideline. JCEM. 2010; 96(7):1911-30. Serum or plasma high density lipoprotein (HDL) cholesterol measurementOrdered By: Jaya Bae on 01-03-2022 Cholesterol in HDL [Mass/Vol] 49 mg/dL 35-85 [facility] Comment on above: HDL CHOL ATP-III CLA SSIFICATION Cardiovascular RiskHDL > or equal to 60 mg/dL LOWHDL < 40 mg/dL HIGH Serum or plasma total choles terol/high density lipoprotein (HDL) cholesterol mass ratOrdered By: Jaya Bae on 01-03-2022 Cholesterol.total/Chol esterol in HDL [Mass ratio] 4.0 {ratio} <5.0 [facility] TSH DL <= 0.005 mIU/L QnOrde red By: Jaya Bae on 01-03-2022 TSH Qn 0.04 m[IU]/L 0.45-5.33 [facility] Triglyceride [Mass/volume] i n Serum or PlasmaOrdered By: Jaya Bae on 01-03-2022 Triglyceride [Mass/Vol] 70 mg/dL 35-149 [facility] Comment on above: TRIG ATP III CLASSIF [...] High sensitivity method [Mass/Vol] 7668 pg/mL 0-15 [facility] Comment on above: Results calledat 062 5 on 01/03/22 BNPon 01-02-2022 Natriuretic peptide B (Bld) [Mass/Vol] 971.0 pg/mL Normal <=1,800.0 Comment on above: Performed By: #### C MADM, BNP, CMP #### [facility] [address] [place] [address] [address] Marco Greer Body fluid albumin measureme nt (mass/volume)Ordered By: Jaya Bae on 01-02-2022 Albumin (Body fld) [Mass/Vol] 3.1 g/dL 3.2-5.5 [facility] CARDIAC BALJIT ADMITon 022 CK [Catalytic activity/Vol] 103 U/L Normal 26-192 Comment on above: Performed By: #### C MADM, BNP, CMP #### [facility] [address] [address] [address] Marco Greer CK.MB [Mass/Vol] 12.75 ng/mL Critically high <=3.60 [facility] Comment on above: Performed By: #### C MADM, BNP, CMP #### [facility] [address] [address] [address] Marco Greer HSTROP 2985.3 pg/mL Critically high 4.0-51.3 Comment on above: Result Comment: CUT- OFF POINTS HAVE BEEN ESTABLISHED BASED ON THE FOURTH UNIVERSAL DEFINITIONS OF MYOCARDIAL INFARCTION. THE UPPER REFERENCE LIMIT (URL) OF TROPONIN, DEFINED THE 99TH PERCENTILE OF cTnI DISTRIBUTION IN A REFERENCE POPULATION, HAS BEEN CONFIRMED THE DECISION THRESHOLD FOR ND DIAGNOSIS. Performed By: #### C MADM, BNP, CMP #### [facility] [address] [address] [address] Marco Greer MANINDER 282 ng/mL Critically high 9-82 Comment on above: Performed By: #### C MADM, BNP, CMP #### [facility] [address] [address] [address] Marco Greer CBC AUTO DIFFon 10-21-2022 BASO # 0.0 103/ul Normal 0.0-0.1 Comment on above: Performed By: #### C MP #### [facility] [address] [place] [address] Dr. Marco Greer Basophils/100 WBC (Bld) 0.4 % Normal 0.2-2.0 Comment on above: Performed By: #### C MP #### [facility] [address] [place] [address] Dr. Marco Greer EO # 0.1 103/ul Normal 0.0-0.7 [facility] Comment on above: Performed By: #### C MP #### [facility] [address] [place] [address] Dr. Marco Greer Eosinophils/100 WBC (Bld) 0.6 % Critically low 0.9-7.0 Comment on above: Performed By: #### C MP #### [facility] [address] [place] [address] Dr. Marco Greer Erythrocyte distribution width (RBC) [Ratio] 14.3 % Normal 11.0-15.0 Comment on above: Performed By: #### C MP #### [facility] [address] [place] [address] Dr. Marco Greer Hematocrit (Bld) [Volume fraction] 41.3 % Normal 36.0-48.0 Comment on above: Performed By: #### C MP #### [facility] [address] [place] [address] Dr. Marco Greer Hemoglobin (Bld) [Mass/Vol] 13.6 g/dL Normal 12.0-16.0 [facility] Comment on above: Performed By: #### C MP #### [facility] [address] [place] [address] Dr. Marco Greer IG # 0.04 10e3/ul Critically high 0.00-0.03 Comment on above: Performed By: #### C MP #### [facility] [address] [place] [address] Dr. Marco Greer IG % 0.4 % Normal 0.0-0.5 Comment on above: Performed By: #### C MP #### [facility] [address] [place] [address] Dr. Marco Greer LYMPH # 1.6 103/ul Normal 1.2-3.8 Comment on above: Performed By: #### C MP #### [facility] [address] [place] [address] Dr. Marco Greer Lymphocytes/100 WBC (Bld) 15.9 % Critically low 20.5-60.0 Comment on above: Performed By: #### C MP #### [facility] [address] [place] [address] Dr. Marco Greer MANUAL DIFF REQ NO Normal Comment on above: Performed By: #### C MP #### [facility] [address] [place] [address] Dr. Marco Greer MCH (RBC) [Entitic mass] 28.7 pg Normal 26.7-34.0 Comment on above: Performed By: #### C MP #### [facility] [address] [place] [address] Dr. Marco Greer MCHC (RBC) [Mass/Vol] 32.9 g/dL Normal 29.9-35.2 Comment on above: Performed By: #### C MP #### [facility] [address] [place] [address] Dr. Marco Greer MCV (RBC) [Entitic vol] 87.1 fL Normal 81.0-99.0 Comment on above: Performed By: #### C MP #### [facility] [address] [place] [address] Dr. Marco Greer MONO # 0.7 103/ul Normal 0.3-0.8 Comment on above: Performed By: #### C MP #### [facility] [address] [place] [address] Dr. Marco Greer Monocytes/100 WBC (Bld) 7.1 % Normal 1.7-12.0 [facility] Comment on above: Performed By: #### C MP #### [facility] [address] [address] [address] Marco Greer NEUT # 7.8 103/ul Critically high 1.4-6.5 Comment on above: Performed By: #### C MP #### [facility] [id number] Marco Greer Neutrophils/100 WBC (Bld) 75.6 % Critically high 43.0-75.0 Comment on above: Performed By: #### C MP #### [facility] [address] [address] [address] Marco Greer Platelet mean volume (Bld) [Entitic vol] 10.5 fL Normal 9.5-13.5 Comment on above: Performed By: #### C MP #### [facility] [address] [address] [address] Marco Greer PLT 233 103/ul Normal 150-450 [facility] Comment on above: Performed By: #### C MP #### [facility] [id number] Marco Greer RBC 4.74 106/ul Normal 4.20-5.40 [facility] Comment on above: Performed By: #### C MP #### [facility] [id number] Marco Greer WBC 10.3 103/ul Normal 4.0-11.0 [facility] Comment on above: Performed By: #### C MP #### [facility] [address] [place] [address] HEAD WO CONon 01-02-2022 CT [...] IRON ALANIS Date: 2022-01-02 13:37 Normal [facility] Covid-19 PCR ([facility])on 12-14 SARS-CoV-2 (COVID-19) RNA NADER+probe Ql (Unsp spec) Not detected Normal NOT DETECTED [facility] Comment on above: Result Comment: When diagnostic [...] for this test is supported by the [place] of Health and Human Service's declaration that [...] By: #### C MADM, BNP, CMP #### [facility] [address] [place] [address] Dr. Marco Greer Globulin Calc (S) [Mass/Vol] Ordered By: Jaya Bae on 01-02-2022 Globulin (S) [Mass/Vol] 3.9 g/dL [facility] PROF 14(COMP METB)on 022 Albumin [Mass/Vol] 3.0 g/dL Critically low 3.4-5.0 [facility] Comment on above: Performed By: #### C MADM, BNP, CMP #### [facility] [address] [address] [address] Marco Greer Albumin/Globulin [Mass ratio] 0.7 {ratio} Normal Comment on above: Performed By: #### C MADM, BNP, CMP #### [facility] [address] [address] [address] Marco Greer ALP [Catalytic activity/Vol] 68 U/L Normal 46-116 Comment on above: Performed By: #### C MADM, BNP, CMP #### [facility] [address] [place] [address] Dr. Marco Greer ALT [Catalytic activity/Vol] 19 U/L Normal 14-59 Comment on above: Performed By: #### C MADM, BNP, CMP #### [facility] [address] [address] [address] Marco Greer Anion gap [Moles/Vol] 11.2 mmol/L Normal [facility] Comment on above: Performed By: #### C MADM, BNP, CMP #### [facility] [address] [place] [address] Dr. Marco Greer AST [Catalytic activity/Vol] 24 U/L Normal 15-37 Comment on above: Performed By: #### C MADM, BNP, CMP #### [facility] [address] [place] [address] Dr. Marco Greer Bilirubin [Mass/Vol] 0.4 mg/dL Normal 0.2-1.0 Comment on above: Performed By: #### C MADM, BNP, CMP #### [facility] [address] [place] [address] Dr. Marco Greer Calcium [Mass/Vol] 9.1 mg/dL Normal 8.5-10.1 Comment on above: Performed By: #### C MADM, BNP, CMP #### [facility] [address] [place] [address] Dr. Marco Greer Chloride [Moles/Vol] 101 mmol/L Normal 98-107 Comment on above: Performed By: #### C MADM, BNP, CMP #### [facility] [address] [address] [address] Marco Greer CO2 [Moles/Vol] 24.1 mmol/L Normal 21.0-32.0 Comment on above: Performed By: #### C MADM, BNP, CMP #### [facility] [address] [address] [address] Marco Greer Creatinine [Mass/Vol] 0.99 mg/dL Normal 0.55-1.02 Comment on above: Performed By: #### C MADM, BNP, CMP #### [facility] [address] [address] [address] Marco Greer EGFR-AF NIGERIEN >60 Normal >=60 Comment on above: Performed By: #### C MADM, BNP, CMP #### [facility] [address] [address] [address] Marco Greer EGFR-NON AF NIGERIEN 54 mL/min/1.73m2 Critically low >=60 [facility] Comment on above: Performed By: #### C MADM, BNP, CMP #### [facility] [address] [place] [address] Dr. Marco Greer Globulin (S) [Mass/Vol] 4.5 g/dL Normal Comment on above: Performed By: #### C MADM, BNP, CMP #### [facility] [address] [address] [address] Marco Greer Glucose [Mass/Vol] 145 mg/dL Critically high 74-106 T [facility] Comment on above: Performed By: #### C MADM, BNP, CMP #### [facility] [address] [address] [address] Marco Greer Potassium [Moles/Vol] 3.3 mmol/L Critically low 3.5-5.1 Comment on above: Performed By: #### C MADM, BNP, CMP #### [facility] [address] [place] [address] Dr. Marco Greer Protein [Mass/Vol] 7.5 g/dL Normal 6.4-8.2 Comment on above: Performed By: #### C MADM, BNP, CMP #### [facility] [address] [place] [address] Dr. Marco Greer Sodium [Moles/Vol] 133 mmol/L Critically low 136-145 [facility] Comment on above: Performed By: #### C MADM, BNP, CMP #### [facility] [address] [place] [address] Dr. Marco Greer Urea nitrogen [Mass/Vol] 16.0 mg/dL Normal 7.0-18.0 Comment on above: Performed By: #### C MADM, BNP, CMP #### [facility] [address] [place] [address] Dr. Marco Greer Urea nitrogen/Creatinine [Mass ratio] 16.2 mg/mg Normal Comment on above: Performed By: #### C MADM, BNP, CMP #### [facility] [address] [place] [address] Dr. Marco Greer PROTIMEon 01-02-2022 INR Coag (PPP) [Relative time] 1.02 {INR} Normal Comment on above: Performed By: #### C MADM, BNP, CMP #### [facility] [address] [place] [address] Dr. Marco Greer INR GUIDELINES SEE BELOW Normal [facility] Comment on above: Result Comment: YULIET RED INR: 2.0 - 3.0 CONDITIONS NOT LISTED BELOW 2.5 - 3.5 FOR PROSTHETIC HEART VALVE REPLACEMENT 2.5 - 3.5 RECURRENT THROMBOSIS Performed By: #### C MADM, BNP, CMP #### [facility] [address] [place] [address] Dr. Marco Greer PT Coag (PPP) [Time] 11.0 s Normal 9.0-11.6 Comment on above: Performed By: #### C MADM, BNP, CMP #### [facility] [address] [place], [place] [address] Dr. Marco Greer PTTon 01-02-2022 aPTT Coag (Bld) [Time] 31.0 s Normal 22.3-36.2 [facility] Comment on above: Performed By: #### C MADM, BNP, CMP #### [facility] [address] [place], [place] [address] Dr. Marco Greer Protein [Mass/volume] in Ser um or PlasmaOrdered By: Jaya Bae on 01-02-2022 Protein [Mass/Vol] 7.0 g/dL 6.1-7.9 [facility] Serum or plasma alanine kenny otransferase measurement without P-5'-P (enzymatic activiOrdered By: Jaya Bae on 01-02-2022 ALT No additional P-5'-P [Catalytic activity/Vol] 20 U/L 60 [facility] Serum or plasma albumin/glob ulin mass ratioOrdered By: Jaya Bae on 01-02-2022 Albumin/Globulin [Mass ratio] 0.8 {ratio} [facility] Serum or plasma alkaline lisy sphatase measurement (enzymatic activity/volume)Ordered By: Jaya Bae on 01-02-2022 ALP [Catalytic activity/Vol] 58 U/L 32-92 [facility] Serum or plasma aspartate am inotransferase measurement (enzymatic activity/volume)Ordered By: Jaya Bae on 01-02-2022 AST [Catalytic activity/Vol] 59 U/L 10-42 [facility] Serum or plasma total biliru bin measurement (mass/volume)Ordered By: Jaya Bae on 01-02-2022 Bilirubin [Mass/Vol] 0.6 mg/dL 0.3-1.2 [facility] XR CHEST 1 Von 01-02-2022 XR [...] by: BUD BROUSSARD Date: 2022-01-02 13:42 Normal Albumin [Mass/volume] in Ser um or PlasmaOrdered By: Brianda Harris on 11-26-2021 Albumin [Mass/Vol] 3.1 g/dL 3.2-5.5 [facility] Basophils Auto (Bld) [#/Vol] Ordered By: Brianda Harris on 11-26-2021 Basophils (Bld) [#/Vol] 0.1 10*3/uL 0.0-0.2 [facility] Basophils/100 WBC Auto (Bld) Ordered By: Brianda Harris on 11-26-2021 Basophils/100 WBC (Bld) 0.4 % . [facility] Creatinine and Glomerular fi ltration rate.predicted panel (S/P/Bld)Ordered By: Brianda Harris on 11-26-2021 Creatinine [Mass/Vol] 0.69 mg/dL 0.44-1.03 [facility] Eosinophils Auto (Bld) [#/Vo l]Ordered By: Brianda Harris on 11-26-2021 Eosinophils (Bld) [#/Vol] 0.0 10*3/uL 0.0-0.45 [facility] Eosinophils/100 WBC Auto (Bl d)Ordered By: Brianda Harris on 11-26-2021 Eosinophils/100 WBC (Bld) 0.1 % . [facility] Erythrocyte distribution wid th Auto (RBC) [Ratio]Ordered By: Brianda Harris on 11-26-2021 Erythrocyte distribution width (RBC) [Ratio] 14.1 % 11.9-15.3 [facility] Erythrocyte sedimentation ra te by Photometric methodOrdered By: Brianda Harris on 11-26-2021 ESR Photometric method (Bld) [Velocity] 78 mm/hr 0-29 [facility] Estimated glomerular filtrat ion rate (GFR) non- AmericanOrdered By: Brianda Harris on 11-26-2021 GFR/1.73 sq M.predicted among non-blacks MDRD (S/P/Bld) [Vol rate/Area] > 60 mL/Min [facility] Globulin Calc (S) [Mass/Vol] Ordered By: Brianda Harris on 11-26-2021 Globulin (S) [Mass/Vol] 4.1 g/dL [facility] Hematocrit Auto (Bld) [Volum e fraction]Ordered By: Brianda Harris on 11-26-2021 Hematocrit (Bld) [Volume fraction] 40.4 % 34.0-46.4 [facility] Hemoglobin [Mass/volume] in BloodOrdered By: Brianda Harris on 11-26-2021 Hemoglobin (Bld) [Mass/Vol] 13.2 g/dL 11.8-15.4 [facility] Laboratory - Hematology and Cell countsOrdered By: Brianda Harris on 11-26-2021 Nucleated RBC/100 WBC (Bld) [Ratio] 0.1 % 0-0.5 [facility] Leukocytes [#/volume] in Blo od by Automated countOrdered By: Brianda Harris on 11-26-2021 WBC (Bld) [#/Vol] 15.8 10*3/uL 4.5-11.0 [facility] Lymphocytes Auto (Bld) [#/Vo l]Ordered By: Brianda Harris on 11-26-2021 Lymphocytes (Bld) [#/Vol] 1.2 10*3/uL 1.00-4.8 [facility] Lymphocytes/100 WBC Auto (Bl d)Ordered By: Brianda Harris on 11-26-2021 Lymphocytes/100 WBC (Bld) 7.8 % . [facility] MCH Auto (RBC) [Entitic mass ]Ordered By: Brianda Harris on 11-26-2021 MCH (RBC) [Entitic mass] 28.2 pg 24.7-34.3 [facility] MCHC Auto (RBC) [Mass/Vol]Or dered By: Brianda Harris on 11-26-2021 MCHC (RBC) [Mass/Vol] 32.6 g/dL 32.0-35.0 [facility] MCV Auto (RBC) [Entitic vol] Ordered By: Brianda Harris on 11-26-2021 MCV (RBC) [Entitic vol] 86.4 fL 80-100 [facility] Monocytes Auto (Bld) [#/Vol] Ordered By: Brianda Harris on 11-26-2021 Monocytes (Bld) [#/Vol] 0.8 10*3/uL 0.0-0.8 [facility] Monocytes/100 WBC Auto (Bld) Ordered By: Brianda Harris on 11-26-2021 Monocytes/100 WBC (Bld) 5.0 % . [facility] Neutrophils Auto (Bld) [#/Vo l]Ordered By: Brianda Harris on 11-26-2021 Neutrophils (Bld) [#/Vol] 13.7 10*3/uL 1.8-7.7 [facility] Neutrophils/100 WBC Auto (Bl d)Ordered By: Brianda Harris on 11-26-2021 Neutrophils/100 WBC (Bld) 86.7 % . [facility] No Panel InformationOrdered By: Brianda Harris on 11-26-2021 Estimated GFR () > 60 mL/Min [facility] Comment on above: GFR estimated refere nce range: According to KDOQI guidelines, <60 ml/min/1.73m2 is sufficient to diagnose a patient with chronic kidney disease. Pharmacy Creatinine Clearance (Chem N/A [facility] Platelet mean volume Auto (B ld) [Entitic vol]Ordered By: Brianda Harris on 11-26-2021 Platelet mean volume (Bld) [Entitic vol] 9.3 fL 6.3-10.7 [facility] Platelets Auto (Bld) [#/Vol] Ordered By: Brianda Harris on 11-26-2021 Platelets (Bld) [#/Vol] 277 10*3/uL 150-450 [facility] Protein [Mass/volume] in Ser um or PlasmaOrdered By: Brianda Harris on 11-26-2021 Protein [Mass/Vol] 7.2 g/dL 6.1-7.9 [facility] RBC Auto (Bld) [#/Vol]Ordere d By: Brianda Harris on 11-26-2021 RBC (Bld) [#/Vol] 4.68 10*6/uL 3.60-5.00 [facility] Serum or plasma alanine kenny otransferase measurement without P-5'-P (enzymatic activiOrdered By: Brianda Harris on 11-26-2021 ALT No additional P-5'-P [Catalytic activity/Vol] 20 U/L 10-60 [facility] Serum or plasma albumin/glob ulin mass ratioOrdered By: Brianda Harris on 11-26-2021 Albumin/Globulin [Mass ratio] 0.8 {ratio} [facility] Serum or plasma alkaline lisy sphatase measurement (enzymatic activity/volume)Ordered By: Brianda Harris on 11-26-2021 ALP [Catalytic activity/Vol] 60 U/L 32-92 [facility] Serum or plasma anion gap de terminationOrdered By: Brianda Harris on 11-26-2021 Anion gap [Moles/Vol] 18.5 mmol/L 6.0-15.0 [facility] Serum or plasma aspartate am inotransferase measurement (enzymatic activity/volume)Ordered By: Brianda Harris on 11-26-2021 AST [Catalytic activity/Vol] 28 U/L 10-42 [facility] Serum or plasma calcium rashmi urement (mass/volume)Ordered By: Brianda Harris on 11-26-2021 Calcium [Mass/Vol] 9.1 mg/dL 8.2-10.2 [facility] Serum or plasma chloride reece surement (moles/volume)Ordered By: Brianda Harris on 11-26-2021 Chloride [Moles/Vol] 90 mmol/L 95-114 [facility] Serum or plasma glucose rashmi urement (mass/volume)Ordered By: Brianda Harris on 11-26-2021 Glucose [Mass/Vol] 93 mg/dL 70-100 [facility] Comment on above: ADA recommended refe rence rangeRandom Glucose Reference Range is dependent on time and content of last meal. Glucose of more than 200 mg/dL in a nonstressed, ambulatory subject supports the diagnosis of Diabetes Mellitus. Serum or plasma potassium me asurement (moles/volume)Ordered By: Brianda Harris on 11-26-2021 Potassium [Moles/Vol] 3.7 mmol/L 3.5-5.1 [facility] Serum or plasma sodium measu rement (moles/volume)Ordered By: Brianda Harris on 11-26-2021 Sodium [Moles/Vol] 127 mmol/L 136-146 [facility] Serum or plasma total biliru bin measurement (mass/volume)Ordered By: Brianda Harris on 11-26-2021 Bilirubin [Mass/Vol] 0.3 mg/dL 0.3-1.2 [facility] Serum or plasma total carbon dioxide measurement (moles/volume)Ordered By: Brianda Harris on 11-26-2021 CO2 [Moles/Vol] 22.2 mmol/L 22.0-30.0 [facility] Serum or plasma urea nitroge n measurement (mass/volume)Ordered By: Brianda Harris on 11-26-2021 Urea nitrogen [Mass/Vol] 13 mg/dL 9- [facility] CBC AUTO DIFFon 08-25-2021 BASO # 0.0 103/ul Normal 0.0-0.1 Comment on above: Performed By: #### C MADM, BNP, CMP #### [facility] [address] [address] [address] Marco Greer Basophils/100 WBC (Bld) 0.8 % Normal 0.2-2.0 Comment on above: Performed By: #### C MADM, BNP, CMP #### [facility] [address] [address] [address] Marco Greer EO # 0.2 103/ul Normal 0.0-0.7 Comment on above: Performed By: #### C MADM, BNP, CMP #### [facility] [address] [place] [address] Dr. Marco Greer Eosinophils/100 WBC (Bld) 4.0 % Normal 0.9-7.0 Comment on above: Performed By: #### C MADM, BNP, CMP #### [facility] [address] [place] [address] Dr. Marco Greer Erythrocyte distribution width (RBC) [Ratio] 14.7 % Normal 11.0-15.0 [facility] Comment on above: Performed By: #### C MADM, BNP, CMP #### [facility] [address] [place] [address] Dr. Marco Greer Hematocrit (Bld) [Volume fraction] 40.4 % Normal 36.0-48.0 Comment on above: Performed By: #### C MADM, BNP, CMP #### [facility] [address] [place] [address] Dr. Marco Greer Hemoglobin (Bld) [Mass/Vol] 13.3 g/dL Normal 12.0-16.0 [facility] Comment on above: Performed By: #### C MADM, BNP, CMP #### [facility] [address] [place] [address] Dr. Marco Greer IG # 0.01 10e3/ul Normal 0.00-0.03 Comment on above: Performed By: #### C MADM, BNP, CMP #### [facility] [address] [place] [address] Dr. Marco Greer IG % 0.2 % Normal 0.0-0.5 [facility] Comment on above: Performed By: #### C MADM, BNP, CMP #### [facility] [address] [place] [address] Dr. Marco Greer LYMPH # 1.7 103/ul Normal 1.2-3.8 [facility] Comment on above: Performed By: #### C MADM, BNP, CMP #### [facility] [address] [place] [address] Dr. Marco Greer Lymphocytes/100 WBC (Bld) 36.1 % Normal 20.5-60.0 Comment on above: Performed By: #### C MADM, BNP, CMP #### [facility] [address] [place] [address] Dr. Marco Greer MANUAL DIFF REQ NO Normal Comment on above: Performed By: #### C MADM, BNP, CMP #### [facility] [address] [place] [address] Dr. Marco Greer MCH (RBC) [Entitic mass] 28.9 pg Normal 26.7-34.0 Comment on above: Performed By: #### C MADM, BNP, CMP #### [facility] [address] [place] [address] Dr. Marco Greer MCHC (RBC) [Mass/Vol] 32.9 g/dL Normal 29.9-35.2 [facility] Comment on above: Performed By: #### C MADM, BNP, CMP #### [facility] [address] [place] [address] Dr. Marco Greer MCV (RBC) [Entitic vol] 87.8 fL Normal 81.0-99.0 Comment on above: Performed By: #### C MADM, BNP, CMP #### [facility] [address] [place] [address] Dr. Marco Greer MONO # 0.9 103/ul Critically high 0.3-0.8 Comment on above: Performed By: #### C MADM, BNP, CMP #### [facility] [address] [place] [address] Dr. Marco Greer Monocytes/100 WBC (Bld) 19.0 % Critically high 1.7-12.0 Comment on above: Performed By: #### C MADM, BNP, CMP #### [facility] [address] [place] [address] Dr. Marco Greer NEUT # 1.9 103/ul Normal 1.4-6.5 Comment on above: Performed By: #### C MADM, BNP, CMP #### [facility] [address] [place] [address] Dr. Marco Greer Neutrophils/100 WBC (Bld) 39.9 % Critically low 43.0-75.0 Comment on above: Performed By: #### C MADM, BNP, CMP #### [facility] [address] [place] [address] Dr. Marco Greer Platelet mean volume (Bld) [Entitic vol] 11.1 fL Normal 9.5-13.5 Comment on above: Performed By: #### C MADM, BNP, CMP #### [facility] [address] [place] [address] Dr. Marco Greer PLT 230 103/ul Normal 150-450 Comment on above: Performed By: #### C MADM, BNP, CMP #### [facility] [address] [place] [address] Dr. Marco Greer RBC 4.60 106/ul Normal 4.20-5.40 Comment on above: Performed By: #### C MADM, BNP, CMP #### [facility] [address] [place] [address] Dr. Marco Greer WBC 4.7 103/ul Normal 4.0-11.0 Comment on above: Performed By: #### C MADM, BNP, CMP #### [facility] [address] [place] [address] Dr. Marco Greer PROF 14(COMP METB)on 022 Albumin [Mass/Vol] 3.1 g/dL Critically low 3.4-5.0 [facility] Comment on above: Performed By: #### C MP #### [facility] [address] [place] [address] Dr. Marco Greer Albumin/Globulin [Mass ratio] 0.8 {ratio} Normal Comment on above: Performed By: #### C MP #### [facility] [address] [place] [address] Dr. Marco Greer ALP [Catalytic activity/Vol] 65 U/L Normal 46-116 Comment on above: Performed By: #### C MP #### [facility] [address] [address] [address] Marco Greer ALT [Catalytic activity/Vol] 21 U/L Normal 14-59 Comment on above: Performed By: #### C MP #### [facility] [address] [address] [address] Marco Greer Anion gap [Moles/Vol] 12.0 mmol/L Normal Th [facility] Comment on above: Performed By: #### C MP #### [facility] [address] [address] [address] Marco Greer AST [Catalytic activity/Vol] 21 U/L Normal 15-37 Comment on above: Performed By: #### C MP #### [facility] [address] [place] [address] Dr. Marco Greer Bilirubin [Mass/Vol] 0.3 mg/dL Normal 0.2-1.0 Comment on above: Performed By: #### C MP #### [facility] [address] [place] [address] Dr. Marco Greer Calcium [Mass/Vol] 8.8 mg/dL Normal 8.5-10.1 Comment on above: Performed By: #### C MP #### [facility] [address] [place] [address] Dr. Marco Greer Chloride [Moles/Vol] 99 mmol/L Normal 98-107 [facility] Comment on above: Performed By: #### C MP #### [facility] [address] [address] [address] Marco Greer CO2 [Moles/Vol] 26.3 mmol/L Normal 21.0-32.0 [facility] Comment on above: Performed By: #### C MP #### [facility] [address] [place] [address] Dr. Marco Greer Creatinine [Mass/Vol] 0.80 mg/dL Normal 0.55-1.02 [facility] Comment on above: Performed By: #### C MP #### [facility] [address] [address] [address] Marco Greer EGFR-AF NIGERIEN >60 Normal >=60 Comment on above: Performed By: #### C MP #### [facility] [address] [address] [address] Marco Greer EGFR-NON AF NIGERIEN >60 Normal >=60 Comment on above: Performed By: #### C MP #### [facility] [address] [address] [address] Marco Greer Globulin (S) [Mass/Vol] 3.8 g/dL Normal Comment on above: Performed By: #### C MP #### [facility] [address] [place] [address] Dr. Marco Greer Glucose [Mass/Vol] 87 mg/dL Normal 74-106 Comment on above: Performed By: #### C MP #### [facility] [address] [place] [address] Dr. Marco Greer Potassium [Moles/Vol] 4.3 mmol/L Normal 3.5-5.1 Comment on above: Performed By: #### C MP #### [facility] [address] [place] [address] Dr. Marco Greer Protein [Mass/Vol] 6.9 g/dL Normal 6.4-8.2 Comment on above: Performed By: #### C MP #### [facility] [address] [place] [address] Dr. Marco Greer Sodium [Moles/Vol] 133 mmol/L Critically low 136-145 Th [facility] Comment on above: Performed By: #### C MP #### [facility] [address] [place] [address] Dr. Marco Greer Urea nitrogen [Mass/Vol] 10.0 mg/dL Normal 7.0-18.0 Comment on above: Performed By: #### C MP #### [facility] [address] [address] [address] Marco Greer Urea nitrogen/Creatinine [Mass ratio] 12.5 mg/mg Normal Comment on above: Performed By: #### C MP #### [facility] [address] [place], [place] [address] Dr. Marco Greer SED RATE [facility] 2021 SED RATE 38 mm/hr Critically high <=30 Comment on above: Performed By: #### C MADM, BNP, CMP #### [facility] [address] [id number] Marco Greer Vital Signs Date Time Vital Sign Value Performing Clinician Facility 05-11-2024 13:25-0500 Body height 162.6 cm Jonathon Kaur MD Work Phone: [facility] 05-11-2024 13:25-0500 Body mass index (BMI) [Ratio] 22.49 kg/m2 Jontahon Kaur MD Work Phone: [facility] 05-11-2024 13:25-0500 Body temperature 96.6 [degF] Jonathon Kaur MD Work Phone: [facility] 05-11-2024 13:25-0500 Body weight 59.42 kg Jonathon Kaur MD Work Phone: [facility] 05-11-2024 13:25-0500 Diastolic blood pressure 40 mm[Hg] Jonathon Kaur MD Work Phone: [facility] 05-11-2024 13:25-0500 Heart rate 54 /min Jon[facility] Kaur MD [facility] [facility] 05-11-2024 13:25-0500 Respiratory rate 20 /min Jonathon Kaur MD Work Phone: [facility] 05-11-2024 13:25-0500 SaO2% (BldA) [Mass fraction] 97 % Jonathon Kaur MD Work Phone: [facility] 05-11-2024 13:25-0500 Systolic blood pressure 130 mm[Hg] Jonathon Kaur MD Work Phone: [facility] 01-12-2024 10:49-0400 Body height 162.6 cm Jonathon Kaur MD Work Phone: [facility] 01-12-2024 10:49-0400 Body mass index (BMI) [Ratio] 22.49 kg/m2 Jonathon Kaur MD Work Phone: [facility] 01-12-2024 10:49-0400 Body temperature 97.11 [degF] Jonathon Kaur MD Work Phone: [facility] 01-12-2024 10:49-0400 Body weight 59.42 kg Jonathon Kaur MD Work Phone: [facility] 01-12-2024 10:49-0400 Diastolic blood pressure 54 mm[Hg] Jonathon Kaur MD Work Phone: [facility] 01-12-2024 10:49-0400 Heart rate 60 /min Jonathon Kaur MD Work Phone: [facility] 01-12-2024 10:49-0400 Respiratory rate 20 /min Jonathon Kaur MD Work Phone: [facility] 01-12-2024 10:49-0400 SaO2% (BldA) [Mass fraction] 98 % Jonathon Kaur MD Work Phone: [facility] 01-12-2024 10:49-0400 Systolic blood pressure 146 mm[Hg] Jonathon Kaur MD Work Phone: [facility] 12-06-2023 11:46-0400 Body height 162.56 cm MD Jonathon Kaur Work Phone: [facility] 12-06-2023 11:46-0400 Body mass index (BMI) [Ratio] 21.5 kg/m2 MD Jonathon Kaur Work Phone: [facility] 12-06-2023 11:46-0400 Body temperature 97.6 [degF] MD Jonathon Kaur Work Phone: [facility] 12-06-2023 11:46-0400 Body weight 57 kg MD Jonathon Kaur Work Phone: [facility] 12-06-2023 11:46-0400 Diastolic blood pressure 82 mm[Hg] MD Jonathon Kaur Work Phone: [facility] 12-06-2023 11:46-0400 Heart rate 50 /min MD Jonathon Kaur Work Phone: [facility] 12-06-2023 11:46-0400 Respiratory rate 16 /min MD Jonathon Kaur Work Phone: [facility] 12-06-2023 11:46-0400 SaO2% (BldA) [Mass fraction] 95 % MD Jonathon Kaur Work Phone: [facility] 12-06-2023 11:46-0400 Systolic blood pressure 124 mm[Hg] MD Jonathon Kaur Work Phone: [facility] 05-25-2023 12:53-0400 Body height 162.56 cm MD Jonathon Kaur Work Phone: [facility] 05-25-2023 12:53-0400 Body mass index (BMI) [Ratio] 21.6 kg/m2 MD Jonathon Kaur Work Phone: [facility] 05-25-2023 12:53-0400 Body temperature 96.4 [degF] MD Jonathon Kaur Work Phone: [facility] 05-25-2023 12:53-0400 Body weight 57.15 kg MD Jonathon Kaur Work Phone: [facility] 05-25-2023 12:53-0400 Diastolic blood pressure 68 mm[Hg] MD Jonathon Kaur Work Phone: [facility] 05-25-2023 12:53-0400 Heart rate 60 /min MD Jonathon Kaur Work Phone: [facility] 03-12-2024 12:53-0400 SaO2% (BldA) [Mass fraction] 99 % MD Jonathon Kaur Work Phone: [facility] 05-25-2023 12:53-0400 Systolic blood pressure 120 mm[Hg] MD Jonathon Kaur Work Phone: [facility] 04-21-2022 13:15-0500 Body height 162.56 cm Blake Buehrer Other [employer] [employer] Other 04-21-2022 13:15-0500 Body mass index (BMI) [Ratio] 20.42 kg/m2 Blake Buehrer Other [employer] [employer] Other 04-21-2022 13:15-0500 Body temperature 96.3 [degF] Blake Buehrer Other [employer] [employer] Other 04-21-2022 13:15-0500 Body weight 53.98 kg Blake Buehrer Other [employer] [employer] Other 04-21-2022 13:15-0500 Diastolic blood pressure 60 mm[Hg] Blake Buehrer Other [employer] [employer] Other 04-21-2022 13:15-0500 SaO2% (BldA) [Mass fraction] 98 % Blake Buehrer Other [address] [employer] Other 04-21-2022 13:15-0500 Systolic blood pressure 160 mm[Hg] Blake Buehrer Other [employer] [employer] Other 04-06-2022 10:45-0500 Body height 162.56 cm Blake Buehrer Other [employer] [employer] Other 04-06-2022 10:45-0500 Body mass index (BMI) [Ratio] 20.42 kg/m2 Blake Zhao Other [employer] [employer] Other 04-06-2022 10:45-0500 Body temperature 97.8 [degF] Blake Zhao Other [employer] [employer] Other 04-06-2022 10:45-0500 Body weight 53.98 kg Blake Zhao Other [employer] [employer] Other 04-06-2022 10:45-0500 Diastolic blood pressure 78 mm[Hg] Blake Zhao Other [address] [employer] Other 04-06-2022 10:45-0500 SaO2% (BldA) [Mass fraction] 95 % Blake Zhao Other [address] [employer] Other 04-06-2022 10:45-0500 Systolic blood pressure 112 mm[Hg] Blake Zhao Other [address] [employer] Other 03-27-2022 11:52-0500 Body height 162.56 cm Jonathon A Naderer Work Phone: ZJ-Cfavjvylcn-Ificud [place] [address] DO Work Phone: 03-27-2022 11:52-0500 Body mass index (BMI) [Ratio] 20.43 kg/m2 Jonathon A Naderer Work Phone: RA-Obahrksctt-Kfnaim [place] [address] [place] Work Phone: 03-27-2022 11:52-0500 Body surface area Derived from formula 1.57 m2 Jonathon A Naderer Work Phone: SN-Uvimuvztts-Bhctmp [place] [address] DO Work Phone: 03-27-2022 11:52-0500 Body weight 53.98 kg Jonathon Shaffer Naderer Work Phone: AE-Nzzrzusfdg-Hkhvsc [place] [address] DO Work Phone: 03-27-2022 11:52-0500 Diastolic blood pressure 70 mm[Hg] Jonathon Shaffer Naderer Work Phone: YQ-Ayckhdhugf-Bkusvv [place] [address] DO Work Phone: 03-27-2022 11:52-0500 Heart rate 60 /min Jonathon Shaffer Naderer Work Phone: DZ-Arhjkbwfbx-Obgume [place] [address] DO Work Phone: 03-27-2022 11:52-0500 Systolic blood pressure 168 mm[Hg] Jonathon Shaffer Naderer Work Phone: HM-Bejuqhmuec-Yndkfk [address] DO Work Phone: 02-27-2022 13:19-0500 Body height 162.56 cm Jonathon Shaffer Naderer Work Phone: KN-Qydxkodxye-ENM [facility] [address] [place] Work Phone: 02-27-2022 13:19-0500 Body mass index (BMI) [Ratio] 20.79 kg/m2 Jonathon Shaffer Naderer Work Phone: QU-Youtrwxhvn-XWS [facility] [address] [place] Work Phone: 02-27-2022 13:19-0500 Body surface area Derived from formula 1.58 m2 Jonathon Shaffer Naderer Work Phone: MR-Gzeubqmira-IOC [facility] [address] [place] Work Phone: 02-27-2022 13:19-0500 Body weight 54.94 kg Jonathon Shaffer Naderer Work Phone: EU-Jzmyprwkbo-KQW [facility] [address] [place] Work Phone: 02-27-2022 13:19-0500 Diastolic blood pressure 63 mm[Hg] Jonathon Kaur Work Phone: VV-Fiqyqpbomp-MJB [facility] [address] [place] Work Phone: 02-27-2022 13:19-0500 Heart rate 61 /min Jonathon Kaur Work Phone: XN-Fluxbnttzb-EUO [facility] [address] [place] Work Phone: 02-27-2022 13:19-0500 SaO2% (BldA) [Mass fraction] 95 % Jonathon Kaur Work Phone: UX-Uzhppwvzri-PTU [facility] [address] [place] Work Phone: 02-27-2022 13:19-0500 Systolic blood pressure 174 mm[Hg] Jonathon Leesr Work Phone: VB-Mtlpdcptfw-ZVK [facility] [address] [place] Work Phone: 02-27-2022 13:19-0500 0 1 Jonathon Kaur Work Phone: IZ-Ssuqrgxatx-ENN [facility] [address] [place] Work Phone: Comment on above: [employer] 02-17-2022 13:53-0500 Body height 162.56 cm Jonathon Leesr Work Phone: -[facility] Work Phone: 02-17-2022 13:53-0500 Body mass index (BMI) [Ratio] 21.89 kg/m2 Jonathon Leesr Work Phone: -[facility] Work Phone: 02-17-2022 13:53-0500 Body surface area Derived from formula 1.62 m2 Jonathon Leesr Work Phone: -[facility] Work Phone: 02-17-2022 13:53-0500 Body weight 57.83 kg Jonathon Mckeonerer Work Phone: [facility] Work Phone: 02-17-2022 13:53-0500 Diastolic blood pressure 90 mm[Hg] Jonathon Shaffer Naderer Work Phone: [facility] Work Phone: 02-17-2022 13:53-0500 Heart rate 54 /min Jonathon A Naderer Work Phone: [facility] Work Phone: 02-17-2022 13:53-0500 Systolic blood pressure 132 mm[Hg] Jonathon Shaffer Naderer Work Phone: [facility] Work Phone: 02-13-2022 11:46-0500 Diastolic blood pressure 84 mm[Hg] Jonathon Shaffer Naderer Work Phone: [facility] [address] [place] Work Phone: 02-13-2022 11:46-0500 Systolic blood pressure 192 mm[Hg] Jonathon Shaffer Naderer Work Phone: [facility] [address] [place] Work Phone: 02-13-2022 11:20-0500 Diastolic blood pressure 62 mm[Hg] Jonathon Shaffer Naderer Work Phone: [facility] [address] [place] Work Phone: 02-13-2022 11:20-0500 Systolic blood pressure 200 mm[Hg] Jonathon A Naderer Work Phone: [facility] [address] [place] Work Phone: 02-13-2022 11:15-0500 Body height 162.56 cm Jonathon A Naderer Work Phone: [facility] [address] [place] Work Phone: 02-13-2022 11:15-0500 Body mass index (BMI) [Ratio] 21.46 kg/m2 Jonathon A Naderer Work Phone: [facility] [address] [place] Work Phone: 02-13-2022 11:15-0500 Body surface area Derived from formula 1.6 m2 Jonathon Mckeonerer Work Phone: [facility] [address] [place] Work Phone: 02-13-2022 11:15-0500 Body weight 56.7 kg Jonathon Mckeonerer Work Phone: [facility] [address] DO Work Phone: 02-13-2022 11:15-0500 Diastolic blood pressure 70 mm[Hg] Jonathon Mckeonerer Work Phone: [facility] [address] DO Work Phone: 02-13-2022 11:15-0500 Heart rate 61 /min Jonathon Mckeonerer Work Phone: [facility] [address] DO Work Phone: 02-13-2022 11:15-0500 Systolic blood pressure 204 mm[Hg] Jonathon Mckeonerer Work Phone: [facility] [address] DO Work Phone: 01-28-2022 17:01-0500 Body temperature 98.6 [degF] Pcp Unknown [facility] 01-28-2022 17:01-0500 Diastolic blood pressure 68 mm[Hg] Pcp Unknown [facility] 01-28-2022 17:01-0500 Heart rate 75 /min Pcp Unknown [facility] 01-28-2022 17:01-0500 Respiratory rate 18 /min Pcp Unknown [facility] 01-28-2022 17:01-0500 SaO2% (BldA) [Mass fraction] 97 % Pcp Unknown [facility] 01-28-2022 17:01-0500 Systolic blood pressure 148 mm[Hg] Pcp Unknown [facility] 01-28-2022 03:27-0500 Body weight 62.2 kg Pcp Unknown [facility] 01-06-2022 08:00-0400 Body temperature 97.2 [degF] PHYSICIAN NO [facility] 01-06-2022 08:00-0400 Diastolic blood pressure 56 mm[Hg] PHYSICIAN NO [facility] 01-06-2022 08:00-0400 Heart rate 74 /min PHYSICIAN [facility] 01-06-2022 08:00-0400 Respiratory rate 18 /min PHYSICIAN [facility] 01-06-2022 08:00-0400 SaO2% (BldA) [Mass fraction] 97 % PHYSICIAN [facility] 01-06-2022 08:00-0400 Systolic blood pressure 125 mm[Hg] PHYSICIAN [facility] 01-06-2022 06:00-0400 Body weight 58.9 kg PHYSICIAN [facility] 01-02-2022 18:59-0400 Body height 162.56 cm PHYSICIAN NO [facility] Encounters Encounter Date Encounter Type Care Provider Facility Start: 05-11-2024 End: 05-11-2024 Bamboo flowsheet Jonathon Kaur MD Work Phone: [facility] Start: 05-11-2024 End: 05-11-[facility]aur MD Work Phone: [facility] Start: 05-11-2024 End: 05-11-2024 Patient encounter procedure Jonathon Kaur MD Work Phone: [facility] Work Phone: Start: 05-11-2024 End: 05-11-2024 Postop follow up visit related to original px Jonathon Kaur MD Work Phone: [facility] Comment on above: Medicare annual well ness visit, subsequent (Primary Dx); Stage 3a chronic kidney disease (CKD) ([facility]); Dyslipidemia ([facility]); Encounter for long-term (current) use of medications; Adult hypothyroidism ([facility]); Chronic HFrEF (heart failure with reduced ejection fraction) (CMS/HCC); Rheumatoid arthritis involving multiple sites, unspecified whether rheumatoid factor present (CMS/HCC); Essential hypertension, benign (CMS/HCC); Essential (primary) hypertension (CMS/HCC) Start: 03-28-2024 End: 03-28-2024 Telephone encounter Jonathon Kaur MD Work Phone: [facility] Comment on above: Med Refill Start: 03-21-2024 End: 03-21-2024 Patient encounter procedure Jonathon Kaur MD Work Phone: [facility] [address] Work Phone: Start: 03-21-2024 End: 03-21-2024 ambulatory Jonathon Kaur MD Work Phone: [facility] Work Phone: Start: 01-19-2024 End: 01-19-2024 Bamboo flowsheet Lorraine Russobley [employer] [facility] Start: 01-19-2024 End: 01-19-2024 Bamboo flowsheet Lorrainehoracio Russobley [employer] [facility] Start: 01-19-2024 End: 01-19-2024 ambulatory Lorraine Russobley [employer] [facility] Comment on above: Closed fracture of t ransverse process of lumbar vertebra, initial encounter ([facility]) (Primary Dx); Acute low back pain, unspecified back pain laterality, unspecified whether sciatica present Start: 01-13-2024 End: 01-13-2024 Patient encounter procedure MD Jonathon Kaur Work Phone: [facility] [address] Work Phone: Start: 01-13-2024 End: 01-13-2024 ambulatory MD Jonathon Kaur Work Phone: [facility] Work Phone: Start: 01-12-2024 End: 01-13-2024 ambulatory Paloma Maxwell PT [facility] Comment on above: Acute low back pain, unspecified back pain laterality, unspecified whether sciatica present (Primary Dx); Closed fracture of transverse process of lumbar vertebra, initial encounter (CMS/HCC) Start: 01-12-2024 End: 01-12-2024 Bamboo flowsheet Jonathon Kaur MD Work Phone: [facility] Start: 01-12-2024 End: 01-12-2024 Bamboo flowsheet Jonathon Kaur MD Work Phone: [facility] Start: 01-12-2024 End: 01-12-2024 Office outpatient visit 25 minutes Jonathon Kaur MD Work Phone: [facility] Comment on above: Closed fracture of t ransverse process of lumbar vertebra with routine healing (Primary Dx); Postmenopausal; Rheumatoid arthritis involving multiple sites, unspecified whether rheumatoid factor present (CMS/HCC); Essential hypertension, benign (CMS/HCC) Start: 01-12-2024 End: 01-12-2024 ambulatory JONATHON KAUR Not Available Start: 01-10-2024 End: 01-10-2024 ambulatory [facility] Start: 01-04-2024 Non-patient / Non-visit Jonathon alves MD Work Phone: [facility] Work Phone: Start: 12-06-2023 End: 12-06-2023 ambulatory MD Jonathon Kaur Work Phone: [facility] Work Phone: Start: 12-06-2023 End: 12-06-2023 Patient encounter procedure MD Jonathon Kaur Work Phone: [facility] Work Phone: Start: 11-11-2023 End: 11-11-2023 Clinisync Result Encounter Generic External Data Provider [facility] External Department Unsolicited Start: 11-11-2023 End: 11-11-2023 Clinisync Result Encounter Generic External Data Provider [facility] External Department Unsolicited Start: 10-18-2023 End: 10-18-2023 ambulatory [facility] Start: 10-12-2023 Non-patient / Non-visit MD Jaycee Kaur Work Phone: [facility] Phys[facility] Work Phone: Start: 10-07-2023 End: 10-07-2023 ambulatory JONATHON KAUR Not Available Start: 09-30-2023 End: 09-30-2023 ambulatory [facility] Start: 09-23-2023 End: 09-23-2023 Patient encounter procedure MD Jonathon Kaur Work Phone: [facility] [address] Work Phone: Start: 09-23-2023 End: 09-23-2023 ambulatory MD Jonathon Kaur Work Phone: [facility] Work Phone: Start: 07-19-2023 End: 07-19-2023 ambulatory [facility] Start: 07-14-2023 End: 07-14-2023 ambulatory JONATHON KAUR Not Available Start: 06-03-2023 End: 06-03-2023 Patient encounter procedure MD Jonathon Kaur Work Phone: [facility] [address] Work Phone: Start: 06-03-2023 End: 06-03-2023 ambulatory MD Jonathon Kaur Work Phone: [facility] Work Phone: Start: 05-25-2023 End: 05-25-2023 Patient encounter procedure MD Jonathon Kaur Work Phone: [facility] Work Phone: Start: 05-25-2023 End: 05-25-2023 ambulatory Jonathon Kaur Facility:[facility] Start: 12-15-2022 End: 12-15-2022 ambulatory MD Jonathon Kaur Work Phone: [facility] Work Phone: Start: 12-15-2022 End: 12-15-2022 Patient encounter procedure MD Jonathon Kaur Work Phone: [facility] [address] Work Phone: Start: 11-24-2022 End: 11-24-2022 ambulatory MD Jonathon Kaur Work Phone: [facility] Work Phone: Start: 11-24-2022 End: 11-24-2022 Patient encounter procedure MD Jonathon Kaur Work Phone: [facility] Start: 08-18-2022 Rx Renewal Jonathon Kaur Work Phone[facility] Work Phone: Start: 06-26-2022 End: 06-27-[address] DPAHNE MCGUIRE Facility:[facility] Start: 05-20-2022 Rx Renewal Jonathon Kaur Work Phone: [facility] [place] [facility] Work Phone: Start: 04-21-2022 End: 04-21-2022 ambulatory Blake Zhao Other [employer] [facility] [employer] Other Start: 04-21-2022 Office outpatient vi sit 25 minutes Blake Zhao [facility] Vascular Surgery Start: 04-13-2022 ambulatory Radha Copeland M.D. Facility : Start: 04-06-2022 End: 04-06-2022 ambulatory Blake Zhao Other [facility] [employer] Other Start: 04-06-2022 Office outpatient ne w 45 minutes Blake Zhao [facility] Vascular Surgery Start: 04-03-2022 End: 04-04-[address] DOCTOR PABON Facility:[facility] Start: 04-01-2022 Patient encounter procedure Jonathon Kaur Work Phone: [facility] [address] DO Work Phone: Start: 04-01-[address] Miri Hunt ty: Start: 03-27-2022 Office outpatient vi sit 25 minutes Jonathon Kaur Work Phone: XK-Gpewcorrmf-Afvqmpnl 250 DO Work Phone: Start: 03-27-[address] Miri Hunt ty: Start: 03-11-2022 End: 03-12-[address] JONATHON KAUR Facility: Start: 03-04-2022 End: 03-04-2022 ambulatory MD Jonathon Kaur Work Phone: [facility] Work Phone: Start: 03-04-2022 End: 03-04-2022 Patient encounter procedure MD Jonathon Kaur Work Phone: [facility] [address] Start: 02-27-2022 ambulatory ALBIN ABU-CHRISTIAN Facility :[facility] Start: 02-27-2022 Postop follow up vis it related to original px Jonathon Kaur Work Phone: [facility] [place] [address] [place] Work Phone: Start: 02-27-2022 ambulatory ALBIN ABU-CHRISTIAN Facility :[facility] Start: 02-27-2022 ambulatory ALBIN ABU-CHRISTIAN Facility :[facility] Start: 02-24-2022 End: 02-24-2022 Departed Referred MD Jonathon Kaur Work Phone: [facility] [place] Start: 02-17-2022 Office outpatient ne w 45 minutes Jonathon Kaur Work Phone: [facility] Work Phone: Start: 02-17-[address] Kvng Romo Facility:[id number] Start: 02-13-2022 Office outpatient ne w 45 minutes Jonathon Kaur Work Phone: [facility] [address] DO Work Phone: Start: 02-13-[address] Miri Hunt ty: Start: 02-10-2022 End: 02-11-[address] JONATHON KAUR Facility:[facility] Start: 01-06-2022 End: 01-06-2022 ambulatory UNKNOWN PROVIDER Facility:[facility] Start: 01-06-2022 End: 01-28-2022 Evaluation and management of inpatient Albin Cooku[facility] [id number] Rm [id number] Start: 01-02-2022 End: 01-06-2022 Evaluation and management of inpatient PHYSICIAN NO [facility] [place] [facility] Start: 01-02-2022 End: 01-02-[address] BUD BROUSSARD Facility:[facility] Start: 11-26-2021 End: 11-26-2021 Patient encounter procedure PHYSICIAN NO [facility] [address] Start: 08-25-2021 End: 08-26-[address] DOCTOR PABON Facility:[facility] Procedures Date Procedure Procedure Detail Performing Clinician Start: 12-06-2023 Doppler ultrasonogra phy of bilateral carotid arteries MD Jonathon Kaur Work Phone: Start: 11-11-2023 ALL BASIC METABOLIC PANEL Generic External Data Provider Start: 05-25-2023 Doppler ultrasonogra phy of bilateral [...] Treatment Date Care Activity Detail Author Start: 11-08-2024 End: 11-08-2024 Patient encounter procedure 11/08/2024 1:15 PM EDT Office Visit [facility] [address] [place] [address] Jonathon Kaur MD [address] [place] [id number] [facility] Start: 05-11-2024 End: 05-11-2025 Basic metabolic 1998 panel - Serum or Plasma Basic metabolic panel Lab Routine Stage 3a chronic kidney disease (CKD) (CMS/HCC) Expected: 05/11/2024 (Approximate), Expires: 05/11/2025 [facility] Work Phone: Comment on above: Expected: 05/11/2024 (Approximate), Expires: 05/11/2025 Start: 05-11-2024 End: 05-11-2025 CBC W Auto Differential panel - Blood CBC and differential Lab Routine Encounter for long-term (current) use of medications Expected: 05/11/2024 (Approximate), Expires: 05/11/2025 [facility] Comment on above: Expected: 05/11/2024 (Approximate), Expires: 05/11/2025 Start: 05-11-2024 End: 05-11-2025 Hepatic function 2000 panel - Serum or Plasma Hepatic function panel Lab Routine Encounter for long-term (current) use of medications Expected: 05/11/2024 (Approximate), Expires: 05/11/2025 [facility] Comment on above: Expected: 05/11/2024 (Approximate), Expires: 05/11/2025 Start: 05-11-2024 End: 05-11-2025 Lipid 1996 panel - Serum or Plasma Lipid panel Lab Routine Dyslipidemia ([facility]) Expected: 05/11/2024 (Approximate), Expires: 05/11/2025 [facility] Comment on above: Expected: 05/11/2024 (Approximate), Expires: 05/11/2025 Start: 05-11-2024 End: 05-11-2025 Thyrotropin [Units/volume] in Serum or Plasma TSH Lab Routine Adult hypothyroidism ([facility]) Expected: 05/11/2024 (Approximate), Expires: 05/11/2025 [facility] Comment on above: Expected: 05/11/2024 (Approximate), Expires: 05/11/2025 Start: 05-11-2024 End: 05-11-2025 Thyroxine (T4) free [Mass/volume] in Serum or Plasma T4, free Lab Routine Adult hypothyroidism ([facility]) Expected: 05/11/2024 (Approximate), Expires: 05/11/2025 [facility] Comment on above: Expected: 05/11/2024 (Approximate), Expires: 05/11/2025 Start: 05-11-2024 End: 05-11-2025 Triiodothyronine (T3) Free [Mass/volume] in Serum or Plasma T3, free Lab Routine Adult hypothyroidism ([facility]) Expected: 05/11/2024 (Approximate), Expires: 05/11/2025 [facility] Comment on above: Expected: 05/11/2024 (Approximate), Expires: 05/11/2025 Start: 04-03-2024 End: 04-03-2024 Patient encounter procedure 04/03/2024 2:00 PM EST Office Visit [facility] [address] [place] [address] Jonathon Kaur MD [address] [place] [address] [facility] Start: 03-20-2024 End: 03-20-2024 Patient encounter procedure 03/20/2024 1:30 PM EST Office Visit [facility] [address] [place] [address] Jonathon Kaur MD [address] [place] [phone] [facility] Start: 01-19-2024 End: 01-19-2024 ambulatory [facility] Comment on above: Arrived Start: 01-17-2024 End: 01-17-2024 Patient encounter procedure 01/17/2024 10:45 AM EST Office Visit [facility] [address] [place] [address] Jonathon Kaur MD [address] [place] [phone] [facility] Start: 01-12-2024 End: 01-12-2024 ambulatory 01/12/2024 4:30 PM EDT Evaluation [facility] [address] [place] [address] Jf Terrell, PT [address] [place] [address] [facility] Start: 01-12-2024 End: 01-12-2024 Patient encounter procedure 01/12/2024 10:45 AM EDT Office Visit [facility] [address] [place] [address] Jonathon Kaur MD [address] [place] [phone] Arrived [facility] Comment on above: Arrived Start: 12-06-2023 Doppler ultrasonogra phy of bilateral carotid arteries US carotid doppler BI [facility] Start: 11-14-2023 Influenza vaccination Influenza Vacc ine (#1) [facility] Start: 06-19-2022 FUV, Provider: Miri Hlil, Status: Pen, Time: 3:00 PM FUV, Provider: Miri Hill, Status: Pen, Time: 3:00 PM -[facility] DO Work Phone: Start: 04-03-2022 NPV, Provider: Sivakumar Corbett, Status: Pen, Time: 9:15 AM NPV, Provider: Sivakumar Corbett, Status: Pen, Time: 9:15 AM -[facility] DO Work Phone: Start: 04-03-2022 Patient encounter procedure [facility] Cardiology [place] Start: 04-02-2022 EVENT JEREMY, Provider : DEV [employer] 1,[id number], Status: Pen, Time: 1:30 PM EVENT JEREMY, Provider: DEV [employer] 1,[id number], Status: Pen, Time: 1:30 PM [facility] 250 DO Work Phone: Start: 02-27-2022 Patient encounter procedure [facility] [place] Start: 02-27-2022 POV, Provider: Albin Pierce, Status: Pen, Time: 1:00 PM POV, Provider: Albin Pierce, Status: Pen, Time: 1:00 PM [facility] DO Work Phone: Start: 02-17-2022 Patient encounter procedure [facility] Cardiology [place] Start: 02-17-2022 NPV, Provider: Kvng Romo, Status: Pen, Time: 1:45 PM NPV, Provider: Kvng Romo, Status: Pen, Time: 1:45 PM -[facility] DO Work Phone: Start: 02-17-2022 Patient encounter procedure [facility] Start: 02-13-2022 Patient encounter procedure [facility] Cardiology [place] Start: 01-12-2022 End: 01-13-2023 Bisacodyl Rectal 10 mg Suppository Daily PRN ; Suppository (DULCOLAX)DOSE = 10 mg Rectal Daily, PRN Constipation Start: 12-Jan-2022 End: 12-Jan-2023 Ordered: 12-Jan-2022 Jillian Hagan Intent [facility] Start: 01-08-2022 Preprocedural cardiovascular examination Preprocedural cardiovascular examination Date: 08-Jan-2022 [facility] Start: 01-06-2022 Cardiac ischemia Cardiac ische bo Date: 06-Jan-2022 [facility] Start: 01-06-2022 Carotid stenosis Carotid steno sis Date: 06-Jan-2022 [facility] Start: 01-06-2022 Pre-operative cardiovascular examination [facility] Start: 01-06-2022 PVD (peripheral vasc ular disease) PVD (peripheral vascular disease) Date: 06-Jan-2022 [facility] Start: 01-06-2022 [facility] Start: 01-05-2022 [facility] Start: 01-02-2022 Referral to law enforcement officer [facility] Start: 01-02-2022 Hospital admission [facility] Start: 01-02-2022 Fluoroscopy of Left Heart using Low Osmolar Contrast Fluoroscopy of Left Heart using Low Osmolar Contrast [facility] Start: 01-02-2022 Fluoroscopy of Multi ple Coronary Arteries using Low Osmolar Contrast Fluoroscopy of Multiple Coronary Arteries using Low Osmolar Contrast [facility] Start: 01-02-2022 Measurement of Cardi ac Sampling and Pressure, Left Heart, Percutaneous Approach Measurement of Cardiac Sampling and Pressure, Left Heart, Percutaneous Approach [facility] Start: 02-15-1946 Pneumococcal Vaccine : 65+ Years (1 of 2 - PCV) Pneumococcal Vaccine: 65+ Years (1 of 2 - PCV) [facility] Start: 1940 Medicare Annual Well ness (AWV) Medicare Annual Wellness (AWV) [facility] Patient referral [facility] Work Phone: US.doppler Carotid arteries - bilateral [facility] Payers Date Payer Category Payer Self-pay [id number] 2022 Private Health Insurance [facility] [id number] 2019 Unknown 2010 Unknown [id number] 2007 Medicare [id number] 1959 Medicare [id number] 1959 Unknown [id number] 1942 Unknown [id number] 2.16.840.1.563657.3.579. 2.732 1942 Unknown [id number] 2.16.840.1.894263.3.579. 2.593 1942 Unknown [id number] 2.16.840.1.670655.3.579. 2.593 1942 Unknown [id number] 2.16.840.1.926696.3.579. 2.593 1942 Unknown [id number] 2.16.840.1.143983.3.579. 2.593 1942 Unknown [id number] 2.16.840.1.478781.3.579. 2.593 1942 Unknown [id number] 2.16.840.1.318777.3.579. 2.593 1942 Unknown [id number] 2.16.840.1.151684.3.579. 2.356 1942 Unknown [id number] 2.16.840.1.905492.3.579. 2.356 1942 Unknown [id number] 2.16.840.1.405602.3.579. 2.356 1942 Unknown [id number] 2.16.840.1.192328.3.579. 2.356 1942 Unknown [id number] 2.16.840.1.467182.3.579. 2.356 1942 Unknown [id number] 2.16.840.1.181256.3.579. 2.356 1942 Unknown [id number] 2.16.840.1.965935.3.579. 2.356 1942 Unknown [id number] 2.16.840.1.132593.3.579. 2.356 1942 Unknown [id number] 2.16.840.1.553473.3.579. 2.1259 1942 Unknown [id number] 2.16.840.1.156888.3.579. 2.1259 1942 Unknown [id number] 2.16.840.1.829836.3.579. 2.1259 1942 Unknown [id number] 2.16.840.1.823315.3.579. 2.1259 1942 Unknown [id number] 2.16.840.1.886244.3.579. 2.1259 Unknown [id number] 2.16.840.1.430213.3.579. 2.531 Unknown [id number] 2.16.840.1.389606.3.579. 2.531 Unknown [id number] 2.16.840.1.860074.3.579. 2.531 Unknown [id number] 2.16.840.1.219050.3.579. 2.531 Unknown [id number] 2.16.840.1.896528.3.579. 2.531 Unknown [id number] 2.16.840.1.978850.3.579. 2.531 Social History Date Type Detail Facility Start: 01-03-2022 End: 07-14-2023 Tobacco smoking status NHIS Ex-smoker (finding) [facility] Start: 1940 Sex Assigned At Female [facility] Tobacco smoking consumption unknown [facility] Start: 10-07-2023 End: 05-11-2024 No alcohol use No alcohol use -[facility] DO Work Phone: Comment on above: 1 pack daily- Quit i n 1990s; Start: 10-07-2023 End: 05-11-2024 Sex Assigned At Merged With [facility] Other History of tobacco use Current smoker [facility] History of tobacco use Cigarette Smoker [facility] Start: 07-14-2023 Tobacco use and exposure Smokeless tobacco non-user [facility] Start: 1940 Sex assigned at Not on file [facility] Start: 03-22-2024 Sex Female (finding) [facility] Goals Date Patient Goal Desired Activity /State Functional Status Date Assessment Result Facility 01-02-2022 Functional status Patient at [facility] Work Phone: Bladder: fully continent [facility] Mental Status Date Assessment Result Facility 01-17-2022 Mentally alert [facility] 01-02-2022 Cognitive function Cognitive Sta tus Patient at [facility] Work Phone: Clinical Notes 01-02-2022 to 05-11-2024 Jonathon Kaur MD - 05/11/2024 1:47 PM Laila Kaur MD - 05/11/2024 1:00 PM ESTTeleCHARO Cash - 03/28/2024 1:03 PM Laila Kaur MD - 01/12/2024 11:30 AM EDT Note Date & Type Note Facility 05-11-2024 History of Presen t illness Narrative Associated Problem(s): Medicare annual wellness visit, subsequent Due for labs. Discussed proper diet and regular aerobic exercise. Need aerobic exercise 5-6 days a week for 30 minutes at a time. Smaller portions and limit total calories. Colonoscopy every 10 years. Tetanus every 10 years. Advised not to smoke. Images from the original note were not included. Subjective Patient ID: Cely Barbosa is a 84 y.o. female who presents for Medicare Annual Wellness Visit Subsequent (Wellness/). Presents for medicare annual wellness visit. Weight unchanged over the past year. Tries to stay active around house and walk several days a week. Tries to watch diet and eat healthy. Increased fruits and vegetables. Smaller portions and limits snacking. Tries to limit total daily calories. Due for labs. C/o lightheaded and dizzy when up and moving. Checking BP and at times low. BP slightly low today. Review of Systems Respiratory: Negative for cough, shortness of breath and wheezing. Cardiovascular: Negative for chest pain and palpitations. Gastrointestinal: Negative for abdominal pain, diarrhea, nausea and vomiting. Genitourinary: Negative for dysuria. Objective Physical Exam Constitutional: General: She is not in acute distress. Appearance: Normal appearance. HENT: Head: Normocephalic. Right Ear: Tympanic membrane normal. Left Ear: Tympanic membrane normal. Eyes: Extraocular Movements: Extraocular movements intact. Pupils: Pupils are equal, round, and reactive to light. Cardiovascular: Rate and Rhythm: Normal rate and regular rhythm. Heart sounds: No murmur heard. No friction rub. No gallop. Pulmonary: Effort: Pulmonary effort is normal. Breath sounds: Normal breath sounds. No wheezing, rhonchi or rales. Abdominal: General: Bowel sounds are normal. There is no distension. Palpations: Abdomen is soft. Tenderness: There is no abdominal tenderness. There is no guarding or rebound. Musculoskeletal: General: No swelling or tenderness. Cervical back: Neck supple. Right lower leg: No edema. Left lower leg: No edema. Skin: Findings: No erythema or rash. Neurological: General: No focal deficit present. Mental Status: She is alert and oriented to person, place, and time. Cranial Nerves: No cranial nerve deficit. Motor: No weakness. Gait: Gait normal. Assessment/Plan Problem List Items Addressed This Visit Essential hypertension, benign (CMS/HCC) Chronic HFrEF (heart failure with reduced ejection fraction) (CMS/HCC) Dyslipidemia (CMS/HCC) Relevant Orders Lipid panel Adult hypothyroidism ([facility]/HCC) Relevant Orders TSH T4, free T3, free Arthritis, rheumatoid ([facility]/HCC) Stage 3a chronic kidney disease (CKD) ([facility]/HCC) Relevant Orders Basic metabolic panel Encounter for long-term (current) use of medications Relevant Orders CBC and differential Hepatic function panel Medicare annual wellness visit, subsequent - Primary Due for labs. Discussed proper diet and regular aerobic exercise. Need aerobic exercise 5-6 days a week for 30 minutes at a time. Smaller portions and limit total calories. Colonoscopy every 10 years. Tetanus every 10 years. Advised not to smoke. Other Visit Diagnoses Essential (primary) hypertension (CMS/HCC) Relevant Medications amLODIPine (Norvasc) 5 MG tablet documented in this encounter [facility] 03-28-2024 Telephone encounter Note Patient called states when she was in hospital in Dec, the hospital doctor increased her amlodipine to 10 mg, she now needs a refill, and would like to stay at 10mg [facility] 03-28-2024 Miscellaneous Notes Patient called states when she was in hospital in Dec, the hospital doctor increased her amlodipine to 10 mg, she now needs a refill, and would like to stay at 10mg documented in this encounter [facility] 01-12-2024 History of Presen t illness Narrative Associated Problem(s): Essential hypertension, benign (CMS/HCC) BP controlled and monitor PRN. Associated Problem(s): Postmenopausal Due for DEXA and will call rheum. Associated Problem(s): Arthritis, rheumatoid (CMS/HCC) Mild stiffness and follow with rheumatology. Associated Problem(s): Closed fracture of transverse process of lumbar vertebra with routine healing Healing well and use OTC PRN. Start PT. Images from the original note were not included. Subjective Patient ID: Cely Barbosa is a 83 y.o. female who presents for Follow-up ([facility] hospital f/up broken back). Hospital follow up from 01/03-01/04 for lumbar transverse process fracture. Patient in yard and tripped on landscaping stones. Fell and landed on right hip and side. Pain in low back and hip but able to get up. Went inside and daughter brought to ER due to concerns of blood thinners. Did not hit head and no LOC. X-ray ankle negative. CT right hip negative. CT lumbar spine showed transverse process fracture and admitted. Discussed with ortho who recommended conservative management. Seen by PT and discharged. Pain much improved today. Mild pain in low back but able to sit better. Not using OTC. Will start PT today. History of RA and follows with rheum. Overdue for DEXA. Review of Systems Respiratory: Negative for cough, shortness of breath and wheezing. Cardiovascular: Negative for chest pain and palpitations. Gastrointestinal: Negative for abdominal pain, diarrhea, nausea and vomiting. Genitourinary: Negative for dysuria. Objective Physical Exam Constitutional: General: She is not in acute distress. Appearance: Normal appearance. HENT: Head: Normocephalic. Right Ear: Tympanic membrane normal. Left Ear: Tympanic membrane normal. Eyes: Extraocular Movements: Extraocular movements intact. Pupils: Pupils are equal, round, and reactive to light. Cardiovascular: Rate and Rhythm: Normal rate and regular rhythm. Heart sounds: No murmur heard. No friction rub. No gallop. Pulmonary: Effort: Pulmonary effort is normal. Breath sounds: Normal breath sounds. No wheezing, rhonchi or rales. Abdominal: General: Bowel sounds are normal. There is no distension. Palpations: Abdomen is soft. Tenderness: There is no abdominal tenderness. There is no guarding or rebound. Musculoskeletal: Cervical back: Neck supple. Right lower leg: No edema. Left lower leg: No edema. Neurological: Mental Status: She is alert. Assessment/Plan Problem List Items Addressed This Visit Essential hypertension, benign (CMS/HCC) BP controlled and monitor PRN. Arthritis, rheumatoid (CMS/HCC) Mild stiffness and follow with rheumatology. Closed fracture of transverse process of lumbar vertebra with routine healing - Primary Healing well and use OTC PRN. Start PT. Postmenopausal Due for DEXA and will call rheum. documented in this encounter [facility] 01-10-2024 Note [facility] Cardiology Clinic Note Chief Complaint: Patient here for 2 mo follow up CAD, HFrEF, and hypertension. She was started on chlorthalidone at last visit in Oct 2023. She wasn't able to tolerate this, so Dr. Mcguire started spironolactone. She wasn't able to tolerate this either due to dizziness, nausea, and fatigue. Patient was admitted to [facility] last week for fall. Amlodipine was doubled to 10mg, and lisinopril was doubled to 20mg daily. Denies chest pain and SOB. Says BP's since hospital discharge have been running 140-156 systolic. HPI: Cely Barbosa is a 83 y.o. female with a history of hypertension and dyslipidemia and recent coronary artery bypass graft surgery here to establish care. In December, she was feeling unwell, she was brought to the [facility] and found to have a non-ST elevation myocardial infarction. She was subsequently transferred to [facility] for cardiac catheterization and then [facility] for bypass surgery. She has been doing well since. She currently denies exertional symptoms UPDATE 07/19/2023 She presented to [facility] ED last month for BP over [...] encouraged to add salt at the table UPDATE 01/10/2024 Unfortunately, fell and had a back fracture - conservative management She could not tolerate spironolactone or chlorthalidone both of which caused significant blood pressure drops with symptoms of lightheadedness and dizziness She has no new cardiovascular symptoms Cardiology ROS: Review of Systems Respiratory: Positive [...] STOP METOPROLOL, Disp: 180 tablet, Rfl: 3 carvedilol (Coreg) 25 mg tablet, Take 25 mg by mouth with breakfast and with evening meal., Disp: , Rfl: chlorthalidone (Hygroton) 25 mg tablet, Take 0.5 tablets (12.5 mg) by mouth in the morning., Disp: 45 tablet, Rfl: 3 clopidogrel (Plavix) 75 mg [...] if needed for nausea., Disp: , Rfl: metoprolol succinate XL (Toprol-XL) 25 mg 24 hr tablet, Take 12.5 mg by mouth in the morning. Do not crush or chew., Disp: , Rfl: sodium chloride 1,000 mg tablet, Take 0.5 g by mouth once daily as directed., Disp: , Rfl: spironolactone (Aldactone) 25 mg tablet, Take 1 tablet (25 mg) by mouth once daily as directed., Disp: 90 tablet, Rfl: 3 Last Recorded Vitals BP 164/76 (BP Location: Left arm, Patient Position: Sitting) Pulse 69 Ht 1.626 m (5' 4 ) Wt 59 kg (130 lb) SpO2 98% BMI 22.31 kg/m??? Physical Examination: GENERAL: alert and oriented x3, well developed, in no acute distress. HEAD: atraumatic, normocephalic. EYES: GEORGE, EOMI. NECK: trachea midline, no JVD present, no carotid bruits present. CARDIAC: S1, S2 present. RRR. No murmur, rubs, or gallops. RESPIRATORY: CTAB, no increased effort of breathing, no rales, rhonchi, or wheezing. ABDOMEN: soft, nontender, nondistended. EXTREMITIES: no lower ext (more content not included)... [facility] 10-18-2023 Note [facility] Cardiology Clinic Note Chief Complaint: Patient here for 6 mo follow up CAD, chronic systolic heart failure, and hypertension. Had routine labs last week with lipid panel. She presented to [facility] ED last month for BP over [...] feeling unwell, she was brought to the [facility] and found to have a non-ST elevation myocardial infarction. She was subsequently transferred to [facility] for cardiac catheterization and then [facility] for bypass surgery. She has been doing well since. She currently denies exertional symptoms UPDATE 07/19/2023 She presented to [facility] ED last month for BP over [...] 70% stenosis Circumflex (more content not included)... [facility] 09-30-2023 Note [facility] Cardiology Clinic Note Chief Complaint: Patient here for 6 mo follow up CAD, chronic systolic heart failure, and hypertension. Had routine labs last week with lipid panel. She presented to [facility] ED last month for BP over [...] feeling unwell, she was brought to the [facility] and found to have a non-ST elevation myocardial infarction. She was subsequently transferred to [facility] for cardiac catheterization and then [facility] for bypass surgery. She has been doing well since. She currently denies exertional symptoms UPDATE 07/19/2023 She presented to [facility] ED last month for BP over [...] left anterior descend (more content not included)... [facility] 07-19-2023 Note [facility] Cardiology Clinic Note Chief Complaint: Patient here for 6 mo follow up CAD, chronic systolic heart failure, and hypertension. Had routine labs last week with lipid panel. She presented to [facility] ED last month for BP over 200 systolic. Denies chest pain, SOB, and palpitations. HPI: Cely Barbosa is a 83 y.o. female with a history of hypertension and dyslipidemia and recent coronary artery bypass graft surgery here to establish care. In December, she was feeling unwell, she was brought to the [facility] and found to have a non-ST elevation myocardial infarction. She was subsequently transferred to [facility] for cardiac catheterization and then [facility] for bypass surgery. She has been doing well since. She currently denies exertional symptoms UPDATE 07/19/2023 She presented to [facility] ED last month for BP over [...] lateral segment lef (more content not included)... [facility] 04-21-2022 Evaluation note Encounter Date [...] 6 months with a repeat duplex examination. [address] [employer] Other 01-23-2023 Evaluation note* Encounter Date Diagnosis [...] after discussion if her anatomy is acceptable. [address] [employer] [facility] 10-31-2022 History of Present illness Narrative* I reviewed her at the clinic today. She underwent coronary bypass grafting x3 on January 12 background of impaired left ventricular function. She has made an excellent recovery. At review today she had no complaints. * She has been followed up at the cardiology clinic and is keen to start rehab. [facility] [address] [place] Work Phone: [phone] Reason for referral (narrative)* Reason for Referral: OT re-eval s/p CABG x3 (01/12) [facility]10-24-2022 Progress note Author Vandana Torres [facility] January 05, 2022 11:26am Note Date/Time January 05, 2022 1 1:26am [facility] [address] [place] [address] Hospitalist Progress Note Signed Patient: Cely Barbosa MR#: [id number] : 1940 Acct:[id number] Age/Sex: 81 / F Adm Date: 2 Loc: Room: [address] [place] [address] Type: ADM IN Attending Dr: Vandana Torres MD Copies to: ~ Date of Service: 01/05/2022 Subjective Subjective Narrative: Patient examined bedside with no overnight event. She denies any chest pain. Seen by cardiology and scheduled for cardiac cath later today. ASSESSMENT AND PLAN: 81F with PMH of RA, Hypothyroidism who p/w fall to [facility] and transferred for the evaluation and treatment of possible NSTEMI NSTEMI with Cardiomyopathy No chest pain today at rest, Feeling better The patient presents with chest pain after a fall. Troponin is elevated up to 8000 CXR ([facility] ED) reported as no acute cardiopulmonary [...] with right elbow laceration Right elbow XR ([facility] ED) reported as no Fx CT brain ([facility] ED) reported no acute intracranial process CT cervical spine without contrast ([facility] ED) reported DJD no acutebony injury [...] signed by Vandana Torres MD> 01/05/22 [address] [facility] Work Phone: [phone] 307-761310-24-2022 Progress note Author Gold Patrick [facility] January 05, 2022 11:26am Note Date/Time January 05, 2022 1 1:26am [facility] [address] [place] [address] Cardiology Progress Note Signed Patient: Cely Barbosa MR#: [id number] : 1940 Acct:[id number] Age/Sex: 81 / F Adm Date: 2 Loc: Room: [address] [place] [address] Type: ADM IN Attending Dr: Vandana Torres [...] MPV Neut % (Auto) Lymph % (Auto) [place] % (Auto) Eos % (Auto) Baso % (Auto) Neut # (Auto) Lymph # (Auto) [place] # (Auto) Eos # (Auto) Baso # [...] % (Auto) 61.8 Lymph % (Auto) 25.1 [place] % (Auto) 9.2 Eos % (Auto) 2.9 Baso % (Auto) 1.0 Neut # (Auto) 4.9 Lymph # (Auto) 2.0 [place] # (Auto) 0.7 Eos # (Auto) 0.2 [...] MPV Neut % (Auto) Lymph % (Auto) [place] % (Auto) Eos % (Auto) Baso % (Auto) Neut # (Auto) Lymph # (Auto) [place] # (Auto) Eos # (Auto) Baso # [...] cardiac cath Documented By: Gold Patrick MD 01/05/22 1125 Signed By: <Electronically signed by MD Gold Patrick> 01/05/22 [address] [facility] Work Phone: [phone] 295-228610-24-2022 [facility] Progress note Author Jaya Bae [facility] January 04, 2022 6:30pm Note Date/Time January 04, 2022 6 :19pm [facility] [address] [place] [address] Hospitalist Progress Note Signed Patient: Cely Barbosa MR#: [id number] : 1940 Acct:[id number] Age/Sex: 81 / F Adm Date: 2 Loc: Room: [address] [place] [address] Type: ADM IN Attending Dr: Jaya Bae MD Copies to: ~ Date of Service: 01/04/2022 Subjective Subjective Narrative: Hospitalist Progress Note ASSESSMENT AND PLAN: 81F with PMH of RA, Hypothyroidism who p/w fall to [facility] and transferred for the evaluation and treatment of possible NSTEMI NSTEMI with Cardiomyopathy No chest pain today at rest, Feeling better The patient presents with chest pain after a fall. Troponin is elevated up to 8000 CXR ([facility] ED) reported as no acute cardiopulmonary abnormality Serial EKG shows NSR, no acute changes LDL 133, HDL 49 Mg wnl Echocardiogram shows EF 40%, severe hypokinesis of the mid to distal anteroseptal wall and apex, Nitroglycerin prn Morphine prn Telemetry Antiplatelet: Aspirin Anticoagulation: Heparin Drip Beta kristal therapy Cardiology was consulted, recommendation appreciated. For [facility] on Wednesday Mechanical Fall with right elbow laceration Right elbow XR ([facility] ED) reported as no Fx CT brain ([facility]) reported no acute intracranial process CT cervical spine without contrast ([facility]) reported DJD no acutebony injury [...] signed by Jaya Bae MD> 01/04/22 183 [facility] Work Phone: 1(175) 226-469610-23-2022 Progress note Author Gold Patrick [facility] January 04, 2022 11:39am Note Date/Time January 04, 2022 1 1:38am [facility] [address] [place] [address] Cardiology Progress Note Signed Patient: Cely Barbosa MR#: [id number] : 1940 Acct:[id number] Age/Sex: 81 / F Adm Date: 2 Loc: Room: [address] [place] [address] Type: ADM IN Attending Dr: Jaya Bae [...] MPV Neut % (Auto) Lymph % (Auto) [place] % (Auto) Eos % (Auto) Baso % (Auto) Neut # (Auto) Lymph # (Auto) [place] # (Auto) Eos # (Auto) Baso # [...] % (Auto) 53.5 Lymph % (Auto) 32.1 [place] % (Auto) 10.5 Eos % (Auto) 2.9 Baso % (Auto) 1.0 Neut # (Auto) 3.0 Lymph # (Auto) 1.8 [place] # (Auto) 0.6 Eos # (Auto) 0.2 [...] MPV Neut % (Auto) Lymph % (Auto) [place] % (Auto) Eos % (Auto) Baso % (Auto) Neut # (Auto) Lymph # (Auto) [place] # (Auto) Eos # (Auto) Baso # [...] cardiac cath Documented By: Gold Patrick MD 01/04/22 1138 Signed By: <Electronically signed by MD Gold Patrick> 01/04/22 1139 [facility] Work Phone: 1(383) 282-656710-23-2022 Progress note Author Jaya Bae [facility] January 04, 2022 12:52am Note Date/Time January 03, 2022 7 :13pm [facility] [address] [place] [address] Hospitalist Progress Note Signed Patient: Cely Barbosa MR#: [id number] : 1940 Acct:[id number] Age/Sex: 81 / F Adm Date: 2 Loc: Room: [address] [place] [address] Type: ADM IN Attending Dr: Jaya Bae MD Copies to: ~ Date of Service: 01/03/2022 Subjective Subjective Narrative: Hospitalist Progress Note ASSESSMENT AND PLAN: 81F with PMH of RA, Hypothyroidism who p/w fall to [facility] and transferred for the evaluation and treatment of possible NSTEMI NSTEMI with Cardiomyopathy No chest pain today at rest The patient presents with chest pain after a fall. Troponin is elevated up to 8000 CXR ([facility] ED) reported as no acute cardiopulmonary abnormality Serial EKG shows NSR, no acute changes LDL 133, HDL 49 Mg wnl Echocardiogram shows EF 40%, severe hypokinesis of the mid to distal anteroseptal wall and apex, Nitroglycerin prn Morphine prn Telemetry Antiplatelet: Aspirin Anticoagulation: Heparin Drip Beta kristal therapy Cardiology was consulted, recommendation appreciated. For [facility] on Wednesday Mechanical Fall with right elbow laceration Right elbow XR ([facility]) reported as no Fx CT brain ([facility]) reported no acute intracranial process CT cervical spine without contrast ([facility]) reported DJD no acutebony injury [...] bed. feeling little . anxious about the [facility] will add xanax as needed ROS: Denies [...] By: <Electronically signed by Jaya Bae MD> 01/04/2251 [facility] Work Phone: 1(456) 581-465510-22-2022 Consult note Author Gold Patrick [facility] January 03, 2022 1:48pm Note Date/Time January 03, 2022 1 :39pm [facility] [address] [place] [address] Cardiology Consult Note Signed Patient: Cely Barbosa MR#: [id number] : 1940 Acct:[id number] Age/Sex: 81 / F Adm Date: 2 Loc: Room: 6C1592-7 Type: ADM IN Attending Dr: Jaya Bae [...] to her around 11:00. She went to [facility] where a suspicion of acute coronary [...] Lymph # (Auto) 1.3 2.1 (1.00-4.8) x10E3/uL [place] # (Auto) 0.4 0.8 (0.0-0.8) x10E3/uL Eos [...] we will proceed with cardiac catheterization on Kadeem. Risk, benefit alternative reviewed with the patient. If patient had any recurrence of her ischemic symptomatology will consider urgent cardiac cath Documented By: Gold Patrick MD 01/03/22 1337 Signed By: <Electronically signed by MD Gold Patrick> 01/03/22 1348 [facility] Work Phone: [phone] 971-583710-22-2022 History and physical note Author Jaya Bae [facility] January 02, 2022 11:51pm Note Date/Time January 02, 2022 1 1:51pm [facility] [address] [place] [address] Hospitalist H&P Signed Patient: Cely Barbosa MR#: [id number] : 1940 Acct:[id number] Age/Sex: 81 / F Adm Date: 2 Loc: Room: [address] [place] [address] Type: ADM IN Attending Dr: Kyree Blair MD Copies to: MD Jonathon Smith MD Marwan Wassouf, MD~ [facility] DATE OF EXAMINATION: 01/02/22 HISTORY OF PRESENT ILLNESS: This is a pleasant 81F with PMH of RA, Hypothyroidism who p/w fall to [facility] and transferred for the evaluation and [...] elbowafter the fall. as per record form [facility] she had one episode of nausea and vomited there. She denies any vision changes, weakness, loss of consciousness, slurred speech. no exacerbating or alleviating factors. no similar symptoms in the past. Her father at the age of 82 of ND. no historyof any CAD or stress tests. [...] % (Auto) 15.9 % (.) 01/02/22 20:45 [place] % (Auto) 5.5 % (.) 01/02/22 20:45 Eos % (Auto) 0.1 % (.) 01/02/22 20:45 Baso % (Auto) 0.6 % (.) 01/02/22 20:45 Neut # (Auto) 6.3 x10E3/uL (1.8-7.7) 01/02/22 20:45 Lymph # (Auto) 1.3 x10E3/uL (1.00-4.8) 01/02/22 20:45 [place] # (Auto) 0.4 x10E3/uL (0.0-0.8) 01/02/22 20:45 [...] of RA, Hypothyroidism who p/w fall to [facility] ED and transferred for the evaluation and treatment of possible NSTEMI NSTEMI No chest pain now The patient presents with chest pain after a fall . Troponin is elevated She was given aspirin in the ambulance. Her EKG reported some ectopy (no EKG wassent with the patient) she supposed to be on heparin drip but she arrived not onany drip CXR ([facility]) reported as no acute cardiopulmonary abnormality EKG was ordered on arrival (i personally reviewed it) shows NSR@68 bpm no acute changes Nitroglycerin prn Morphine prn Telemetry Antiplatelet: Aspirin Anticoagulation: start Heparin Drip Beta kristal therapy Serial EKGs Repeat Troponin Lipid panel in am Echocardiogram Cardiology consult Mechanical Fall with right elbow laceration Right elbow XR ([facility]) reported as no Fx CT brain ([facility]) reported no acute intracranial process CT cervical spine without contrast ([facility]) reported DJD no acutebony injury [...] <Electronically signed by Jaya Bae MD> 01/02/22 9321 [facility] Work Phone: 1([phone]) 595-499010-21-2022 NotePROCEDURE: XR ELBOW RT MIN 3 VIEWS COMPARISON: 09/02/2020 HISTORY: Falls FINDINGS: BONES:Remote traumatic injury of the distal humerus with internal fixation utilizing 2 plates and screws. Severe degenerative changes with [id number] articulation and marginal osteophyte formation. No definite acute fracture or dislocation SOFT TISSUES:Negative. No visible soft tissue swelling. EFFUSION:None visible. OTHER: Limited nonstandard, nonorthogonal projections IMPRESSION: No acute fracture Electronically authenticated by: BUD BROUSSARD Date: 2022-01-02 13:4410-21-2022 NotePROCEDURE: CT CSPINE WO CON COMPARISON: None. [...] Electronically authenticated by: BUD BROUSSARD Date: 2022-01-02 13:41The [facility] Author Vandana Torres [facility] January 06, 2022 1:35pm Note Date/Time January 06, 2022 1 :31pm [facility] [address] [place] [address] Discharge Summary Signed Patient: Cely Barbosa MR#: [id number] : 1940 Acct:[id number] Age/Sex: 81 / F Adm Date: 2 Loc: Room: [address] [place] [address]: Vandana Torres MD Copies to: [...] facility due to concern for non-ST elevated ND. She initially presented to ER after a fall leading to chest pain with diaphoresis. Her labs showed elevated troponin and was transferred to [facility] for further management. ED she remained pain-free [...] by cardiology. Patient has been accepted at [facility] for bypass surgery and transferred upon availability [...] Other Diet: Low-Fat and Low-Sodium Additional Instructions: [facility] to manage care: - Full code - [...] and as needed. DISCHARGE INSTRUCTIONS FOR CARDIAC LABOR AND DELIVERY NURSE PHONE NUMBER OF YOUR PHYSICIAN: [phone] PROCEDURE: Heart Cath The following instructions have [...] cold, numb, blue or white, call the law enforcement officer immediately. 4. ACTIVITY: You are advised to [...] bottle, follow the instructions on the bottle. [facility] is not responsible for incorrect prescription information [...] signed by Vandana Torres MD> 01/06/22 1335 [facility] Work Phone: Evaluation note* Diagnosis Onset Date Resolution Status Hypertension acute Hypothyroid acute Ischemic cardiomyopathy acut e NSTEMI (non-ST elevated myocardial infarction) acute Rheumatoid arthritis acute [facility] Work Phone: Evaluation note* Extremities: pitting LE edema R>L; well perfusedNeurological: awake; A&Ox4; no focal defPsychological: Appropriate mood and behaviorSkin: warm and dryINCISIONS: midsternal, R leg ECHOCARDIOLOGIST, well approx, w/o s/s infectionEyes: clear scleraRespiratory/Thorax: nonlabored; fair inspir effort and cough; mildly diminished bases; on RAsternum stableHead/Neck: neck suppleCardiovascular: RRR, no m/g/rTele: SR 60s-80sepicardial wires cappedGastrointestinal: soft, non-tender, mildly distended, +BS, +BMGenitourinary: voiding w/o difficulty; denies dysuriaMusculoskeletal: ROSSI, generalized weakness and deconditioningENMT: mucous membranes moist, denturesConstitutional: Awake, NAD, alert and cooperative,laying in bed * Skin comment:Skin comment: Right SVG is ECHOCARDIOLOGIST Left groin site is SOPHIE Pt has generalized bruising. [facility] assessment information available [facility] Work Phone: Evaluation note* Diagnosis Onset Date Resolution Status Bilateral carotid artery stenosis acute [facility] Work Phone: Evaluation note* Diagnosis Onset Date Resolution Status Occlusion and stenosis of bilateral carotid arteries acute [facility] Work Phone: Evaluation note* Diagnosis Essential hypertension, benign ([facility]/HCC)- Primary Essential hypertension, benign Chronic HFrEF (heart failure with reduced ejection fraction) ([facility]) Adult hypothyroidism ([facility]) Unspecified hypothyroidism Atherosclerosis of [place] coronary artery of [place] heart without angina pectoris ([facility]) Rheumatoid arthritis involving multiple sites, unspecified whether rheumatoid factor present ([facility]) Dyslipidemia ([facility]) Other and unspecified hyperlipidemia Stage 3a chronic kidney disease (CKD) ([facility]) Encounter for long-term (current) use of medications Encounter for long-term (current) use of other medications Essential hypertension, benign ([facility])- Primary Essential hypertension, benign Hyponatremia Hyposmolality and/or hyponatremia Adult hypothyroidism ([facility]) Unspecified hypothyroidism Encounter for long-term (current) use of medications Encounter for long-term (current) use of other medications Closed fracture of transverse process of lumbar vertebra with routine healing- Primary Postmenopausal Asymptomatic postmenopausal status (age-related) (natural) Rheumatoid arthritis involving multiple sites, unspecified whether rheumatoid factor present ([facility]) Essential hypertension, benign ([facility]) Essential hypertension, benign documented in this encounter [facility] HealthcareEvaluation note* Diagnosis Essential hypertension, benign ([facility])- Primary Essential hypertension, benign Chronic HFrEF (heart failure with reduced ejection fraction) ([facility]) Adult hypothyroidism ([facility]) Unspecified hypothyroidism Atherosclerosis of [place] coronary artery of [place] heart without angina pectoris ([facility]) Rheumatoid arthritis involving multiple sites, unspecified whether rheumatoid factor present ([facility]) Dyslipidemia ([facility]) Other and unspecified hyperlipidemia Stage 3a chronic kidney disease (CKD) ([facility]) Encounter for long-term (current) use of medications Encounter for long-term (current) use of other medications Essential hypertension, benign ([facility])- Primary Essential hypertension, benign Hyponatremia Hyposmolality and/or hyponatremia Adult hypothyroidism ([facility]) Unspecified hypothyroidism Encounter for long-term (current) use of medications Encounter for long-term (current) use of other medications Closed fracture of transverse process of lumbar vertebra with routine healing- Primary Postmenopausal Asymptomatic postmenopausal status (age-related) (natural) Rheumatoid arthritis involving multiple sites, unspecified whether rheumatoid factor present ([facility]) Essential hypertension, benign ([facility]) Essential hypertension, benign Acute low back pain, unspecified back pain laterality, unspecified whether sciatica present- Primary Closed fracture of transverse process of lumbar vertebra, initial encounter ([facility]) documented in this encounter [facility] HealthcareEvaluation note* Diagnosis Essential hypertension, benign ([facility])- Primary Essential hypertension, benign Chronic HFrEF (heart failure with reduced ejection fraction) ([facility]) Adult hypothyroidism ([facility]) Unspecified hypothyroidism Atherosclerosis of [place] coronary artery of [place] heart without angina pectoris ([facility]) Rheumatoid arthritis involving multiple sites, unspecified whether rheumatoid factor present ([facility]) Dyslipidemia ([facility]) Other and unspecified hyperlipidemia Stage 3a chronic kidney disease (CKD) ([facility]) Encounter for long-term (current) use of medications Encounter for long-term (current) use of other medications Essential hypertension, benign ([facility])- Primary Essential hypertension, benign Hyponatremia Hyposmolality and/or hyponatremia Adult hypothyroidism ([facility]) Unspecified hypothyroidism Encounter for long-term (current) use of medications Encounter for long-term (current) use of other medications Closed fracture of transverse process of lumbar vertebra with routine healing- Primary Postmenopausal Asymptomatic postmenopausal status (age-related) (natural) Rheumatoid arthritis involving multiple sites, unspecified whether rheumatoid factor present ([facility]) Essential hypertension, benign ([facility]) Essential hypertension, benign Closed fracture of transverse process of lumbar vertebra, initial encounter ([facility])- Primary Acute low back pain, unspecified back pain laterality, unspecified whether sciatica present documented in this encounter [facility]* Diagnosis Essential hypertension, benign ([facility])- Primary Essential hypertension, benign Chronic HFrEF (heart failure with reduced ejection fraction) ([facility]) Adult hypothyroidism ([facility]) Unspecified hypothyroidism Atherosclerosis of [place] coronary artery of [place] heart without angina pectoris ([facility]) Rheumatoid arthritis involving multiple sites, unspecified whether rheumatoid factor present ([facility]) Dyslipidemia ([facility]) Other and unspecified hyperlipidemia Stage 3a chronic kidney disease (CKD) ([facility]) Encounter for long-term (current) use of medications Encounter for long-term (current) use of other medications Essential hypertension, benign ([facility])- Primary Essential hypertension, benign Hyponatremia Hyposmolality and/or hyponatremia Adult hypothyroidism ([facility]) Unspecified hypothyroidism Encounter for long-term (current) use of medications Encounter for long-term (current) use of other medications Closed fracture of transverse process of lumbar vertebra with routine healing- Primary Postmenopausal Asymptomatic postmenopausal status (age-related) (natural) Rheumatoid arthritis involving multiple sites, unspecified whether rheumatoid factor present ([facility]) Essential hypertension, benign ([facility]) Essential hypertension, benign Essential (primary) hypertension ([facility]) Unspecified essential hypertension documented in [facility] encounter [facility]* Diagnosis Essential hypertension, benign ([facility])- Primary Essential hypertension, benign Chronic HFrEF (heart failure with reduced ejection fraction) ([facility]) Adult hypothyroidism ([facility]) Unspecified hypothyroidism Atherosclerosis of [place] coronary artery of [place] heart without angina pectoris ([facility]) Rheumatoid arthritis involving multiple sites, unspecified whether rheumatoid factor present (CMS/HCC) Dyslipidemia (CMS/HCC) Other and unspecified hyperlipidemia Stage 3a chronic kidney disease (CKD) ([facility]) Encounter for long-term (current) use of medications Encounter for long-term (current) use of other medications Essential hypertension, benign (CMS/HCC)- Primary Essential hypertension, benign Hyponatremia Hyposmolality and/or hyponatremia Adult hypothyroidism ([facility]) Unspecified hypothyroidism Encounter for long-term (current) use of medications Encounter for long-term (current) use of other medications Closed fracture of transverse process of lumbar vertebra with routine healing- Primary Postmenopausal Asymptomatic postmenopausal status (age-related) (natural) Rheumatoid arthritis involving multiple sites, unspecified whether rheumatoid factor present ([facility]) Essential hypertension, benign ([facility]) Essential hypertension, benign Medicare annual wellness visit, subsequent- Primary Stage 3a chronic kidney disease (CKD) (CMS/HCC) Dyslipidemia (CMS/HCC) Other and unspecified hyperlipidemia Encounter for long-term (current) use of medications Encounter for long-term (current) use of other medications Adult hypothyroidism ([facility]) Unspecified hypothyroidism Chronic HFrEF (heart failure with reduced ejection fraction) ([facility]) Rheumatoid arthritis involving multiple sites, unspecified whether rheumatoid factor present (CMS/HCC) Essential hypertension, benign ([facility]/HCC) Essential hypertension, benign Essential (primary) hypertension ([facility]) Unspecified essential hypertension documented in this encounter [facility] Narrative - Reported* Type Description Date Medical History Hypertension Surgical History cholecystectomy 2012 Surgical History CABG 2021 Hospitalization History See Above [address] [employer] Other History of Present illness [id number] yo female here to establish care. Recently [...] s/p vein harvesting. No chest pain, SOB, palpitations.-[facility] [address] DO Work Phone: History of Present illness Narrative* She is here for a new patient visit * She is here for follow-up after being admitted at [facility] after a mechanical fall andpeace underwent a coronary artery bypass graft surgery. * She was seen also secondary to hyponatremia she has chronic hyponatremia per records with baseline sodium per the records of 04 12- * She was on urea packets, Lasix as needed and a sodium bicarbonate when she was in the hospital in [place] * In December a urine osmolality was [...] fluid intake with 6 cups per day. [facility] Work Phone: History of Present illness [id number] yo female here for follow-up. She was recently participating in cardiac rehab as she is s/p CABGand was noted to have frequent PVCs during that time. She states she was asymptomatic during this episode. She was advised to f/u with cardiology. She was also seen by nephrology who is managing hyponatremia.YH-Beukiikrnl-Fxodozzi 250 DO Work Phone: Hospital Discharge instructionsAmbulatory Orders* DME Home Medical Equipment Time Frame: 1 Day, Location: Determined By Patient Additional Instructions [facility] to manage care: - Full code - [...] and as needed. DISCHARGE INSTRUCTIONS FOR CARDIAC LABOR AND DELIVERY NURSE PHONE NUMBER OF YOUR PHYSICIAN: [phone] PROCEDURE: Heart Cath The following instructions have [...] cold, numb, blue or white, call the law enforcement officer immediately. 4. ACTIVITY: You are advised to [...] bottle, follow the instructions on the bottle. [facility] is not responsible for incorrect prescription information provided by the patient during their visit. Do not stop your medications without consulting your health care provider. Please take the list with you to your next doctor's appointment.[facility] Work Phone: Hospital Discharge instructions* Activity:Weight- bearing Instructions: weight-bearing as tolerated. Other activity instructions: As part of your recovery process you will be referred to cardiac rehab as an outpatient. After your discharge from the hospital and home recovery period, you will have your follow up visit with your law enforcement officer. They will clear you to exercise and further refer you to an outpatient cardiac rehab facility. Please call [facility] at [phone] extension [phone] to set up future appointments. * Labs 1 (Modify Template):Lab Test(s): Basic Metabolic Panel, CBC, MagnesiumDate To Be Drawn: Twice weekly on Mondays and while in nursing home/ rehab * Oxygen:Other Instructions incentive spirometer 10x/ hr while awake. * Additional Orders:Vital Signs: Every shiftWeight: daily weights; keep a log and bring to all of your appointmentsAdditional Instructions: Keep Your Move in the Tube!! And think of a [email or web address] dinosaur! Please refer to the Move in [...] arms out of the tube as long asyou remain pain free. Some activities of daily living examples are dressing, personal care, showering, washing hair, and toilet hygiene. * Activity:- Continue to increase activity and use incentive spirometer, cough and deep breathing. - Pace activities as tolerated. Avoid heavy physical exertion and lifting. Balance rest periods with activity. - All medication refills will be obtained from the Primary Care Provider or Solid Waste Facility Operator. -For severe chest pain, extreme shortness of [...] of the previous wires. No NSAIDs (common odom-gxg-xvfqkfi NSAIDs are ibuprofen/Motrin/Advil, naproxen/Naprosyn/Aleve) for 3 months after cardiac surgery; ifNSAIDs needed after 3 months, clear use with law enforcement officer before starting. * Wound Instructions:- Cleanse incisions with soap and water daily. No dressing, leave open to air. No lotions, creams or tub soaks/swimming until healed. * Call Provider If:- Redness, drainage or other problems with incisions, notify the Cardiac Surgeon'soffice. - Signs and symptoms of Heart Failure: call your Solid Waste Facility Operator if you have weight gain of 3 [...] Albin Champagne, cardiac surgeonScheduled Date/Time: 27-Feb-2022 12:00[facility] [phone]: 02/27at 12pm for chest xray in [facility] 5th floor radiology, then 1pm for appointment in [place] [address] * Follow Up Appointment 2:Physician/Dept/Service: Dr. Jonathon Kaur, [facility]; [address], [place] [address]Knkel Number: [phone] * Follow Up Appointment 3:Physician/Dept/Service: Dr. Miri Hill, CardiologyReshriners hospitals for children for Referral: Heart Failure and General CardiologyScheduled Date/Time: 13-Feb-2022 11:15Location: [facility]; [address], [address] [address]Vgfoi Number: [phone]: Please bring insurance information and photo ID * Follow Up Appointment 4:Physician/Dept/Service: Dr. Sivakumar Corbett, Vascular SurgeryReason for Referral: carotid stenosisScheduled Date/Time: 03-Apr-2022 09:15Location: [address], [address] [address]Vylck Number: [phone]: Please bring insurance information and photo ID * Follow Up Appointment 5:Physician/Dept/Service: Dr. Kvng Romo, NephrologyScheduled Date/Time: 17-Feb-2022 13:45Location: [address], [facility] [address] [address]Qcieb Number: [phone]: Please bring insurance information and photo ID * IV Hydration:Type Of Vascular Access: Peripheral IVPeripheral IV #1 Insertion Date: [id number] IV #1 Location: left basilic vein (medial side of arm)Device #1: butterfly cathPeripheral IV #1 Gauge: 22 gauge * Safety:Siderails: noRestraints: noSitter: noFall Risk: dizziness, weakness * Incision 1:Location: MidsternumAppearance: WNLDressing: SOPHIE * Community Support:Support System: Family [facility] for visit Narrative* Rehabilitation - Outpatient (Routine) - Authorized Specialty Diagnoses / Procedures Referred By Maria Elena mayorga Referred To Contact Physical Therapy Diagnoses Fx transverse process lumbar vertebra; Lumbar fx Procedures OR PHYSICAL THERAPY EVALUATION LOW COMPLEX 20 MINS Shaikh Landeros MD [address] [place] [address] Phone: tel: fax: Jf Terrell, PT [address] [facility] [address] [place] [address] Phone: tel: fax: Referral ID Status Reason Start Date Expiration Date V isits Requested Visits Authorized [id number] Authorized 01/12/2024 07/10/2024 30 30 [facility] HealthcareReason for visit Narrative* Rehabilitation - Outpatient (Routine) - Closed Specialty Diagnoses / Procedures Referred By Maria Elena mayorga Referred To Contact Physical Therapy Diagnoses Fx transverse process lumbar vertebra; Lumbar fx Procedures OR PHYSICAL THERAPY EVALUATION LOW COMPLEX 20 MINS Shaikh Landeros MD [address] [place] [address] Phone: tel: fax: Paloma Maxwell PT Referral ID Status Reason Start Date Expiration Date Visits Re quested Visits Authorized [id number] Closed 01/12/2024 07/10/2024 30 30 [facility] Healthcare Summary Purpose Family History Relationship Condition Age at Onset Recorded Date/T [...] Unknown father Unknown mother Unknown Advance Directives Advance Directive Response Recorded Date/ Time Advance [...] is of bilateral carotid arteries Chief Complaint 6 MO F/U CAR U/S 120 0 I65.23 Reason for Visit 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 Chief Complaint Admit Date M05.79 M15.0 Z79.899 January 13, 2024 10:26am M05.79 March 21, 2024 12 :12pm Chief Complaint CELY BARBOSA is being seen [...] and content) DATE CREATED AUTHOR 01/07/2022 [employer] DATE CREATED AUTHOR AUTHOR'S ORGANIZ ATION 04/13/2022 [employer] DATE CREATED AUTHOR AUTHOR'S ORGANIZ ATION 07/02/2022 [facility] DATE CREATED AUTHOR AUTHOR'S ORGANIZ ATION 02/11/2023 [facility] DATE CREATED AUTHOR AUTHOR'S ORGANIZ ATION 01/11/2024 [facility] DATE CREATED AUTHOR AUTHOR'S ORGANIZ ATION 01/21/2024 [facility] EPIC DATE CREATED AUTHOR AUTHOR'S ORGANIZ ATION 03/30/2024 [facility] Care Teams (unrecognized sec tion and content) Team Status: Active Member Role Status Dates Jonathon Kaur MD Primary Care Provider Active Team Status: Active Member Role Status Dates Jonathon Kaur MD Primary Care Provider Active S tart: January 04, 2024 Sivakumar Tyson DO Attending Provider Active Sta rt: January 04, 2024 Team Status: Inactive Member Role Status Dates Jonathon Kaur MD Primary Care Provider Active S tart: January 13, 2024 End: January 13, 2024 Rakan Jackson MD Attending Provider Active St art: January 13, 2024 End: January 13, 2024 Team Status: Inactive Member Role Status Dates Jonathon Kaur MD Primary Care Provider Active S tart: March 21, 2024 End: March 21, 2024 DIANA Merida Attending Provider Active Start: March 21, 2024 End: March 21, 2024 Team Status: Inactive Member Role Status Dates [...] MD Other Provider Active Noelle Ramírez , CUSTOMER ENGAGEMENT SPECIALIST-BC Other Provider Active Miri Hill MD Other Provider Active Vandana Torres MD Attending Provider Active Team Status: Inactive [...] Provider Active S tart: December 06, 2023 [employer] Installer Relationship Specialty Start Date End Date Jonathon Kaur MD [address] [place] [phone] PCP - General Family Medicine 07/14/23 [employer] Installer Relationship Specialty Start Date End Date Jonathon Kaur MD [address] [place] [phone] PCP - General Family Medicine 07/14/23 [employer] Installer Relationship Specialty Start Date End Date Jonathon Kaur MD [address] [place] [phone] PCP - General Family Medicine 05/11/24 [employer] Installer Relationship Specialty Start Date End Date Jonathon Kaur MD [address] [place] [phone] PCP - General Family [facility] 05/11/24 <item> Privacy Markings (unrecogniz ed section and content) Section Author: Ronda Vazquez PROHIBITION ON REDISCLOSURE OF CONFIDENTIAL INFORMATION This notice accompanies a disclosure of information concerning a client made to you with the consent of such client. Reason for Visit (unrecogniz ed section and content) Reason Comments Follow-up [facility] f/up br oken back Reason Onset Date Comments Med Refill 03/28/2024 Reason Comments Medicare Annual Wellness Visit Subsequen t Wellness Goals (unrecognized section and content) Goals may [...] BE BASED ON THE PRIMARY CLINICAL RECORDS. [employer] [facility]. provides no warranty or guarantee of the accuracy or completeness of information in this document.
[2024-05-12 09:58] LABS: Basophils Absolute Auto 0.1 10^3/uL (0.0-0.1); Basophils Percent Auto 0.7 % (0.2-2.0); Eosinophils Absolute Auto 0.2 10^3/uL (0.0-0.7); Hematocrit 41.9 % (36.0-48.0); Immature Granulocytes Abs Auto 0.02 10^3/uL (0.00-0.03); Immature Granulocytes Pct Auto 0.3 % (0.0-0.5); Lymphocytes Absolute Auto 1.3 10^3/uL (1.2-3.8); Lymphocytes Percent Auto 19.3 % (20.5-60.0); Mean Corpuscular HGB Conc 33.4 g/dL (29.9-35.2); Mean Corpuscular Hemoglobin 29.9 pg (26.7-34.0); Mean Corpuscular Volume 89.3 fL (81.0-99.0); Mean Platelet Volume 10.6 fL (9.5-13.5); Monocytes Absolute Auto 0.8 10^3/uL (0.3-0.8); Monocytes Percent Auto 11.9 % (1.7-12.0); Neutrophils Absolute Auto 4.3 10^3/uL (1.4-6.5); Neutrophils Percent Auto 64.8 % (43.0-75.0); Platelet Count 278 10^3/uL (150-450); Red Blood Count 4.69 10^6/uL (4.20-5.40); Red Cell Distribution Width 13.5 % (11.0-15.0); White Blood Count 6.7 10^3/uL (4.0-11.0)
[2024-05-12 10:58] LABS: Free T4 1.43 ng/dL (0.76-1.46)
[2024-05-12 11:13] LABS: Alanine Aminotransferase 15 U/L (14-59); Albumin Globulin Ratio 0.9; Albumin Level 3.4 g/dL (3.4-5.0); Alkaline Phosphatase 78 U/L (46-116); Anion Gap 12.3; Aspartate Amino Transferase 14 U/L (15-37); BUN Creatinine Ratio 19.1; Bilirubin Direct 0.1 mg/dL (0.0-0.2); Bilirubin Total 0.5 mg/dL (0.2-1.0); Calcium 9.3 mg/dL (8.5-10.1); Carbon Dioxide 27.2 mmol/L (21.0-32.0); Chloride 100 mmol/L (98-107); Chol HDL Ratio 3.3; Cholesterol 214 mg/dL (<=200); Estimated GFR (African America 58 (>=60 mL/min/1.73m^2); Estimated GFR (Non-African Ame 48 (>=60 mL/min/1.73m^2); Globulin 3.9 g/dL; Glucose 103 mg/dL (74-106); HDL Cholesterol 64 mg/dL (40-60); Potassium 4.5 mmol/L (3.5-5.1); Sodium 135 mmol/L (136-145); Thyroid Stimulating Hormone 1.608 uIU/mL (0.358-3.740); Total Protein 7.3 g/dL (6.4-8.2); Triglycerides 94 mg/dL (<=150); VLDL CHOLESTEROL 18.8 mg/dL
== END 2024-05-12 09:33 | disposition home or self-care (01) ==
LOC: LAB 09:34
PROVIDERS: Family Provider Internal Medicine Interventional Cardiology; PCP Family Medicine; Visit Provider Family Medicine
DX: N18.31 Chronic kidney disease, stage 3a (principal); Z79.899 Other long term (current) drug therapy; E78.5 Hyperlipidemia, unspecified; E03.9 Hypothyroidism, unspecified
CPT/HCPCS: 36415; 80048; 80061; 80076; 84439; 84443; 84481; 85025

== ENCOUNTER 2024-05-31 17:29 | Emergency (ER) | payer MEDICARE, OTHER, SELFPAY ==
[2024-05-31 17:37] VITALS: BP 174/61; PULSE 72; TEMP 36.6; O2SAT 97; BMI 21.5
--- NOTE | 2024-05-31 18:07 | ECG_ITS ---
[facility] Test Date: 2024-05-31 Pat Name: MARISOL BARBOSA Department: Room: - Gender: Female Chiropractic Care: : 1940 Requested By: [id number] Order Number: [id number] Reading MD: QUENTIN SANFORD M.D. Measurements Intervals [place] Rate: 68 P: 73 NE: 192 QRS: 6 QRSD: 84 T: 61 QT: 384 QTc: 402 Interpretive Statements 1100 Sinus rhythm 1570 with occasional ventricular premature complexes 2420 RSR (QR) in lead V1/V2, consistent with right ventricular conduction delay 9140 abnormal rhythm ECG Compared to ECG 01/04/2024 21:53:21 Ventricular premature complex(es) now present Left ventricular hypertrophy no longer present Electronically Signed On 05-31-2024 19:12:11 EDT by QUENTIN SANFORD M.D.
--- NOTE | 2024-05-31 18:20 | ED.GENADUL1 ---
HPI HPI - General Adult General Chief complaint: Weakness Stated complaint: HIGH BP Time Seen by Provider: 05/31/24 17:37 Mode of arrival: walk-in History of Present Illness HPI narrative: Presents to ED complaining of some dizziness and overall not feeling well. Patient states she started getting sick 2 weeks ago and she had a cough and upper respiratory infection. She thinks maybe she had the flu. Her cough is lingering although it has gotten much better over the past 2 weeks. She still reports that she gets a little bit short of breath and she has noticed recently that her blood pressure is higher than it typically runs. She has also been reporting dizziness today. She states it feels like the room is spinning and that she cannot focus that well. She did ambulate to the bathroom in the ER with very light assistance but she said she felt dizzy while walking. She does have a cardiology appointment tomorrow. 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 She has a regular checkup with her motorcycle delivery driver tomorrow. She is on multiple blood pressure medications. She said she recently had some blood work done by her family doctor and they told her her kidney function was slightly off but not that bad. This was according to the nurse that called her with the results. The patient denies any chest pain. No syncope. No weakness in her extremities no numbness or tingling in her extremities. She denies any confusion or vision changes. She does report some mild nausea and just complained of having no appetite at all. She is alert and answering questions appropriately and here with her family member. Related Data Home Medications ?Medication ?Instructions ?Recorded ?Confirmed atorvastatin 80 mg tablet 40 mg PO .qhs 06/19/23 05/31/24 clopidogrel 75 mg tablet 75 mg PO DAILY 06/19/23 05/31/24 carvedilol 12.5 mg tablet 12.5 mg PO Q12H 09/26/23 05/31/24 sodium chloride 1,000 mg soluble 1,000 mg PO BID 09/26/23 05/31/24 tablet levothyroxine 88 mcg tablet 88 mcg PO .ACB 01/05/24 05/31/24 amlodipine 10 mg tablet 5 mg PO DAILY 05/31/24 05/31/24 Previous Rx's ?Medication ?Instructions ?Recorded lisinopril 20 mg tablet 20 mg PO DAILY #30 tabs 01/05/24 Allergies Allergy/AdvReac Type Severity Reaction Status Date / Time No Known Drug Allergies Allergy Verified 06/19/23 10:51 Opioid HPI Opioid Management Most Recent Opioid Data: Last Pain Scale 0 01/05/24 11:27 01/05/24 Last ORT Total Score 0 01/04/24 22:20 01/04/24 Last ORT Risk Category Low Risk 01/04/24 22:20 01/04/24 Review of Systems ROS Status of ROS 10 or more systems reviewed and unremarkable except as noted in history and below PFSH PFS Medical History (Updated 01/09/24 @ 00:00 by ) Degenerative disc disease, lumbar ?M51.369 - Other intervertebral disc degeneration, lumbar region without mention of lumbar back pain or lower extremity pain (ICD-10) Fracture of transverse process of lumbar vertebra ?S32.009A - Unspecified fracture of unspecified lumbar vertebra, initial encounter for closed fracture (ICD-10) Contusion of hip ?S70.00XA - Contusion of unspecified hip, initial encounter (ICD-10) Fall ?W19.XXXA - Unspecified fall, initial encounter (ICD-10) Rheumatoid arthritis ?M06.9 - Rheumatoid arthritis, unspecified (ICD-10) HLD (hyperlipidemia) ?E78.5 - Hyperlipidemia, unspecified (ICD-10) Hypertension ?I10 - Essential (primary) hypertension (ICD-10) Hypertension ?I10 - Essential (primary) hypertension (ICD-10) Coronary artery disease ?I25.10 - Atherosclerotic heart disease of [place] coronary artery without angina pectoris (ICD-10) Hyponatremia ?E87.1 - Hypo-osmolality and hyponatremia (ICD-10) Weakness ?R53.1 - Weakness (ICD-10) Surgical History (Updated 09/26/23 @ 15:17 by Lorraine Mallory) History of open heart surgery (~12/2021) ?Z98.890 - Other specified postprocedural states (ICD-10) Family History (Updated 01/04/24 @ 22:26 by Goldie Nieves RN) Father Family history of myocardial infarction Family history of hypertension Sister Family history of diabetes mellitus Brother Family history of hypertension Social History (Updated 01/04/24 @ 22:28 by Goldie Nieves RN) Within the past year, how often did you have a drink containing alcohol: never Score interpretation: A score less than 3 is consistent with normal alcohol consumption. Smoking status: Former smoker Non-prescribed substance use: denies use Known occupational exposures/hazards: No Highest level of school completed/degree received: high school graduate Are you now , , , , never or living with a partner: In a typical week, how many times do you talk on the telephone with family, friends, or neighbors: 3 or more times per week How often do you get together with friends or relatives: 3 or more times per week Little interest or pleasure in doing things: not at all Feeling down, depressed, or hopeless: not at all Feel stressed/tense/nervous/anxious/difficulty sleeping: not at all Do you think of yourself as: straight/heterosexual Gender Identity: female Exam Narrative Exam Narrative: Time Seen: [] Vital Signs: [Per nurse's notes.] General: [Alert] Skin: [Warm, dry, no rash.] Head: [Normocephalic, atraumatic.] Neck: [Supple, trachea midline.] Eye: [Pupils are equal, round and reactive to light, extraocular movements are intact, normal conjunctiva.] Ears, nose, mouth and throat: oral mucosa moist. Cardiovascular: [Regular rate and rhythm, no murmur.] Respiratory: [Lungs are clear to auscultation, respirations are non-labored, breath sounds are equal.] Chest wall: [No tenderness, no deformity.] Gastrointestinal: [Soft, nontender, non distended, normal bowel sounds.] MSK: 5 out of 5 muscle strength x 4 extremities no calf pain or edema Lymphatics: [No lymphadenopathy.] Psychiatric: [Cooperative, appropriate mood & affect.] Neurological: [Alert and oriented to person, place, time, and situation, no focal neurological deficit observed.] Constitutional Vital Signs, click to edit/add: Last Vital Signs Temp 97.9 F 05/31/24 17:37 Pulse 72 05/31/24 17:37 Resp 18 05/31/24 17:37 BP 174/61 H 05/31/24 17:37 Pulse Ox 97 05/31/24 17:37 O2 Del Method Room Air 05/31/24 17:37 Course Vital Signs Vital signs: Vital Signs Temperature 97.9 F 05/31/24 17:37 Pulse Rate 72 05/31/24 17:37 Respiratory Rate 18 05/31/24 17:37 Blood Pressure 174/61 H 05/31/24 17:37 Pulse Oximetry 97 05/31/24 17:37 Oxygen Delivery Method Room Air 05/31/24 17:37 Temperature 97.9 F 05/31/24 17:37 Pulse Rate 72 05/31/24 17:37 Respiratory Rate 18 05/31/24 17:37 Blood Pressure 174/61 H 05/31/24 17:37 Pulse Oximetry 97 05/31/24 17:37 Oxygen Delivery Method Room Air 05/31/24 17:37 Medical Decision Making ECG Data Attestation: ?I have reviewed the pertinent ECG results. Interpretation: EKG INTERPRETATION Time: [] 1814 Rate: [] 68 Rhythm: _ [] Normal sinus rhythm ST segments: _ [] Occasional PVC no acute ST elevation or depression T waves: _ [] Ectopy: _ [] P wave/SD interval: _ [] QRS interval: _ [] QT interval: _ [] Comparison: _ [] Comparison EKG date: [] Performed by: [self] Discharge Plan Discharge Chief Complaint: Weakness Prescriptions / Home Meds: No Action atorvastatin 80 mg tablet 40 mg PO .qhs clopidogrel 75 mg tablet 75 mg PO DAILY levothyroxine 88 mcg tablet 88 mcg PO .ACB lisinopril 20 mg tablet 20 mg PO DAILY Qty: 30 0RF amlodipine 10 mg tablet 5 mg PO DAILY sodium chloride 1,000 mg tablet,soluble 1,000 mg PO BID carvedilol 12.5 mg tablet 12.5 mg PO Q12H Print Language: Yoruba Referrals: Jonathon Alvarez MD [Primary Care Provider] - 1 week
[2024-05-31] MEDS: 0.9 % SODIUM CHLORIDE 500 ML IV (18:30)
[2024-05-31 18:54] LABS: Basophils Absolute Auto 0.1 10^3/uL (0.0-0.1); Basophils Percent Auto 0.5 % (0.2-2.0); Eosinophils Absolute Auto 0.3 10^3/uL (0.0-0.7); Eosinophils Percent Auto 2.3 % (0.9-7.0); Hematocrit 41.9 % (36.0-48.0); Hemoglobin 14.5 g/dL (12.0-16.0); Immature Granulocytes Abs Auto 0.05 10^3/uL (0.00-0.03); Immature Granulocytes Pct Auto 0.5 % (0.0-0.5); Lymphocytes Absolute Auto 2.5 10^3/uL (1.2-3.8); Lymphocytes Percent Auto 23.4 % (20.5-60.0); Mean Corpuscular HGB Conc 34.6 g/dL (29.9-35.2); Mean Corpuscular Hemoglobin 29.7 pg (26.7-34.0); Mean Corpuscular Volume 85.7 fL (81.0-99.0); Mean Platelet Volume 10.4 fL (9.5-13.5); Monocytes Absolute Auto 1.1 10^3/uL (0.3-0.8); Monocytes Percent Auto 10.4 % (1.7-12.0); Neutrophils Absolute Auto 6.8 10^3/uL (1.4-6.5); Neutrophils Percent Auto 62.9 % (43.0-75.0); Platelet Count 267 10^3/uL (150-450); Red Blood Count 4.89 10^6/uL (4.20-5.40); Red Cell Distribution Width 12.9 % (11.0-15.0); White Blood Count 10.8 10^3/uL (4.0-11.0)
[2024-05-31 19:05] LABS: Influenza Virus A Antigen Negative; Influenza Virus B Antigen Negative; Internal Control Within Normal Limits; SARS-CoV-2 Ag NEGATIVE (NEGATIVE)
[2024-05-31 19:10] LABS: Alanine Aminotransferase 23 U/L (14-59); Albumin Globulin Ratio 0.8; Albumin Level 3.3 g/dL (3.4-5.0); Alkaline Phosphatase 79 U/L (46-116); Anion Gap 13.2; Aspartate Amino Transferase 18 U/L (15-37); BUN Creatinine Ratio 25.3; Bilirubin Total 0.4 mg/dL (0.2-1.0); Calcium 8.9 mg/dL (8.5-10.1); Carbon Dioxide 26.4 mmol/L (21.0-32.0); Chloride 91 mmol/L (98-107); Estimated GFR (African America >60 (>=60 mL/min/1.73m^2); Estimated GFR (Non-African Ame >60 (>=60 mL/min/1.73m^2); Globulin 4.1 g/dL; Glucose 104 mg/dL (74-106); Potassium 4.6 mmol/L (3.5-5.1); Sodium 126 mmol/L (136-145); Total Protein 7.4 g/dL (6.4-8.2); Troponin I High Sensitivity 47.8 pg/mL (4.0-51.3)
--- NOTE | 2024-05-31 20:01 | ED.GENADUL1 ---
HPI HPI - General Adult General Chief complaint: Weakness Stated complaint: HIGH BP Time Seen by Provider: 05/31/24 17:37 Mode of arrival: walk-in History of Present Illness HPI narrative: 84-year-old female presented to the emergency department and was initially seen by Dr. Medellin for dizziness. Please see her full history and physical exam. Related Data Home Medications ?Medication ?Instructions ?Recorded ?Confirmed atorvastatin 80 mg tablet 40 mg PO .qhs 06/19/23 05/31/24 clopidogrel 75 mg tablet 75 mg PO DAILY 06/19/23 05/31/24 carvedilol 12.5 mg tablet 12.5 mg PO Q12H 09/26/23 05/31/24 sodium chloride 1,000 mg soluble 1,000 mg PO BID 09/26/23 05/31/24 tablet levothyroxine 88 mcg tablet 88 mcg PO .ACB 01/05/24 05/31/24 amlodipine 10 mg tablet 5 mg PO DAILY 05/31/24 05/31/24 Previous Rx's ?Medication ?Instructions ?Recorded lisinopril 20 mg tablet 20 mg PO DAILY #30 tabs 01/05/24 Allergies Allergy/AdvReac Type Severity Reaction Status Date / Time No Known Drug Allergies Allergy Verified 06/19/23 10:51 Opioid HPI Opioid Management Most Recent Opioid Data: Last Pain Scale 0 01/05/24 11:27 01/05/24 Last ORT Total Score 0 01/04/24 22:20 01/04/24 Last ORT Risk Category Low Risk 01/04/24 22:20 01/04/24 [facility] Medical History (Updated 05/31/24 @ 20:01 by Keagan Alba MD) Degenerative disc disease, lumbar ?M51.369 - Other intervertebral disc degeneration, lumbar region without mention of lumbar back pain or lower extremity pain (ICD-10) Fracture of transverse process of lumbar vertebra ?S32.009A - Unspecified fracture of unspecified lumbar vertebra, initial encounter for closed fracture (ICD-10) Contusion of hip ?S70.00XA - Contusion of unspecified hip, initial encounter (ICD-10) Fall ?W19.XXXA - Unspecified fall, initial encounter (ICD-10) Rheumatoid arthritis ?M06.9 - Rheumatoid arthritis, unspecified (ICD-10) HLD (hyperlipidemia) ?E78.5 - Hyperlipidemia, unspecified (ICD-10) Hypertension ?I10 - Essential (primary) hypertension (ICD-10) Hypertension ?I10 - Essential (primary) hypertension (ICD-10) Coronary artery disease ?I25.10 - Atherosclerotic heart disease of [place] coronary artery without angina pectoris (ICD-10) Hyponatremia ?E87.1 - Hypo-osmolality and hyponatremia (ICD-10) Weakness ?R53.1 - Weakness (ICD-10) Surgical History (Updated 09/26/23 @ 15:17 by Lorraine Mallory) History of open heart surgery (~12/2021) ?Z98.890 - Other specified postprocedural states (ICD-10) Family History (Updated 01/04/24 @ 22:26 by Goldie Nieves RN) Father Family history of myocardial infarction Family history of hypertension Sister Family history of diabetes mellitus Brother Family history of hypertension Social History (Updated 01/04/24 @ 22:28 by Goldie Nieves RN) Within the past year, how often did you have a drink containing alcohol: never Score interpretation: A score less than 3 is consistent with normal alcohol consumption. Smoking status: Former smoker Non-prescribed substance use: denies use Known occupational exposures/hazards: No Highest level of school completed/degree received: high school graduate Are you now , , , , never or living with a partner: In a typical week, how many times do you talk on the telephone with family, friends, or neighbors: 3 or more times per week How often do you get together with friends or relatives: 3 or more times per week Little interest or pleasure in doing things: not at all Feeling down, depressed, or hopeless: not at all Feel stressed/tense/nervous/anxious/difficulty sleeping: not at all Do you think of yourself as: straight/heterosexual Gender Identity: female Exam Constitutional Vital Signs, click to edit/add: Last Vital Signs Temp 97.9 F 05/31/24 17:37 Pulse 72 05/31/24 17:37 Resp 18 05/31/24 17:37 BP 174/61 H 05/31/24 17:37 Pulse Ox 97 05/31/24 17:37 O2 Del Method Room Air 05/31/24 17:37 Course Vital Signs Vital signs: Vital Signs Temperature 97.9 F 05/31/24 17:37 Pulse Rate 72 05/31/24 17:37 Respiratory Rate 18 05/31/24 17:37 Blood Pressure 174/61 H 05/31/24 17:37 Pulse Oximetry 97 05/31/24 17:37 Oxygen Delivery Method Room Air 05/31/24 17:37 Temperature 97.9 F 05/31/24 17:37 Pulse Rate 72 05/31/24 17:37 Respiratory Rate 18 05/31/24 17:37 Blood Pressure 174/61 H 05/31/24 17:37 Pulse Oximetry 97 05/31/24 17:37 Oxygen Delivery Method Room Air 05/31/24 17:37 Medical Decision Making MDM Narrative Medical decision making narrative: Testing shows a mildly low sodium of 126. She has had issues like this in the past. Blood pressure is improving without intervention. She has an appointment with her mosaic technician tomorrow and she will keep that appointment. Treatment diagnosis and follow-up were discussed thoroughly. Differential Diagnosis Differential Diagnosis: Hyponatremia, anemia, acute kidney injury Lab Data Lab results reviewed: Yes I reviewed the patient's lab results Labs: Lab Results 05/31/24 05/31/24 Range/Units 18:15 18:44 WBC 10.8 (4.0-11.0) 10^3/uL RBC 4.89 (4.20-5.40) 10^6/uL Hgb 14.5 (12.0-16.0) g/dL Hct 41.9 (36.0-48.0) % MCV 85.7 (81.0-99.0) fL MCH 29.7 (26.7-34.0) pg MCHC 34.6 (29.9-35.2) g/dL RDW 12.9 (11.0-15.0) % Plt Count 267 (150-450) 10^3/uL MPV 10.4 (9.5-13.5) fL Neut % (Auto) 62.9 (43.0-75.0) % Lymph % (Auto) 23.4 (20.5-60.0) % [place] % (Auto) 10.4 (1.7-12.0) % Eos % (Auto) 2.3 (0.9-7.0) % Baso % (Auto) 0.5 (0.2-2.0) % Neut # (Auto) 6.8 H (1.4-6.5) 10^3/uL Lymph # (Auto) 2.5 (1.2-3.8) 10^3/uL [place] # (Auto) 1.1 H (0.3-0.8) 10^3/uL Eos # (Auto) 0.3 (0.0-0.7) 10^3/uL Baso # (Auto) 0.1 (0.0-0.1) 10^3/uL Abs Immat Gran (auto) 0.05 H (0.00-0.03) 10^3/uL Imm/Tot Granulo (auto) 0.5 (0.0-0.5) % Sodium 126 L (136-145) mmol/L Potassium 4.6 (3.5-5.1) mmol/L Chloride 91 L (98-107) mmol/L Carbon Dioxide 26.4 (21.0-32.0) mmol/L Anion Gap 13.2 BUN 19.0 H (7.0-18.0) mg/dL Creatinine 0.75 (0.55-1.02) mg/dL Est GFR ( Amer) >60 (>=60 mL/min/1.73m^2) Est GFR (Non-Af Amer) >60 (>=60 mL/min/1.73m^2) BUN/Creatinine Ratio 25.3 Glucose 104 (74-106) mg/dL Calcium 8.9 (8.5-10.1) mg/dL Total Bilirubin 0.4 (0.2-1.0) mg/dL AST 18 (15-37) U/L ALT 23 (14-59) U/L Alkaline Phosphatase 79 (46-116) U/L Troponin I High Sens 47.8 (4.0-51.3) pg/mL Total Protein 7.4 (6.4-8.2) g/dL Albumin 3.3 L (3.4-5.0) g/dL Globulin 4.1 g/dL Albumin/Globulin Ratio 0.8 Influenza Type A Ag Negative Influenza Type B Ag Negative SARS-CoV-2 Ag (CV2AG) Negative (NEGATIVE) Imaging Data CT brain and chest x-ray: Radiologist's impression: CT head: No acute intracranial process Chest x-ray: No acute cardiopulmonary process ECG Data Attestation: I personally reviewed and interpreted this ECG as follows: (EKG on my interpretation shows normal sinus rhythm with a rate of 68 and a PVC. No acute change.) Discharge Plan Discharge Chief Complaint: Weakness Clinical Impression: Hyponatremia Patient Disposition: Home, Self-Care Time of Disposition Decision: 20:00 Condition: Good Mode of Transportation: Private Vehicle Prescriptions / Home Meds: No Action atorvastatin 80 mg tablet 40 mg PO .qhs clopidogrel 75 mg tablet 75 mg PO DAILY levothyroxine 88 mcg tablet 88 mcg PO .ACB lisinopril 20 mg tablet 20 mg PO DAILY Qty: 30 0RF amlodipine 10 mg tablet 5 mg PO DAILY sodium chloride 1,000 mg tablet,soluble 1,000 mg PO BID carvedilol 12.5 mg tablet 12.5 mg PO Q12H Print Language: Greek Instructions: Hyponatremia (ED) Additional Instructions: See your mosaic technician at your appointment tomorrow. Referrals: Jonathon Alvarez MD [Primary Care Provider] - 1 week
== END 2024-05-31 20:10 | disposition home or self-care (01) ==
PROVIDERS: Emergency Medicine; Emergency Provider Emergency Medicine; Family Provider Internal Medicine Interventional Cardiology; PCP Family Medicine
DX: E87.1 Hypo-osmolality and hyponatremia (principal); R42 Dizziness and giddiness; Z87.891 Personal history of nicotine dependence; R06.02 Shortness of breath; Z95.1 Presence of aortocoronary bypass graft; Z79.899 Other long term (current) drug therapy
CPT/HCPCS: 36415; 70450; 71045; 80053; 84484; 85025; 87804; 87811; 93005; 99285

== ENCOUNTER 2024-06-08 23:02 | Emergency (ER) | payer MEDICARE, OTHER, SELFPAY ==
[2024-06-08] VITALS (7 sets, daily range): BP systolic 167–190; BP diastolic 66–74; PULSE 66–73; TEMP 37; O2SAT 97–99; BMI 22.3
--- NOTE | 2024-06-08 23:14 | ECG_ITS ---
[facility] Test Date: 2024-06-08 Pat Name: MARISOL BARBOSA Department: Room: - Gender: Female Project Design Engineer: : [id number] Requested By: [id number] Order Number: [id number] Reading MD: QUENTIN SANFORD M.D. Measurements Intervals Pratt Rate: 69 P: 67 OR: 194 QRS: 59 QRSD: 86 T: 65 QT: 380 QTc: 400 Interpretive Statements 1100 Sinus rhythm 1570 with occasional ventricular premature complexes 9140 abnormal rhythm ECG Compared to ECG 05/31/2024 18:15:58 No significant changes Electronically Signed On 06-09-2024 19:23:40 EDT by QUENTIN SANFORD M.D.
--- OUTSIDE RECORDS SUMMARY | 2024-06-08 23:31 | XMS_ITS | CCD ---
Author Organization [facility] Care Team Providers Care Client Business Manager Name Role Phone PROVIDER, UNKNOWN Attending Unavailable [...] Provider MD Wilmer Guzman Other Provider Desiree [facility] Noelle Box Other Provider [phone] MD Miri Hill Other Provider [phone] [...] Provider MD Wilmer Guzman Other Provider Desiree [facility]- Noelle Box Other Provider [phone] MD Miri Hill Other Provider MD Vandana Torres Attending Provider [phone] DO Kvng Romo Attending Provider MEME Harris-Keira [...] Consulting Unavailable RENETTA, DR BUSCH Consulting Unavailable [place], DR BUD Hogan Consulting Unavailable MIKEEREKeagan, DR [...] Unavailable Natasha, MD Holt Primary Care Provider MD Blake Zhao Attending Provider [phone] DIANA Harris Attending Provider Fidmargarito, Dr. Chery [...] Care MD Jonathon Sutton Primary Care Provider [phone] MD Blake Zhao Attending Provider [phone] DIANA Harris Attending Provider MD Jonathon Kaur Primary Care Provider [phone] DIANA Harris Attending Provider MD Blake Zhao Attending Provider Jonathon Kaur MD Primary Care Provider [phone] Unavailable Primary Care Provider UnavailMD Jonathon Casarez Primary Care Provider MD Rakan Del Toro Attending Provider Natasha BURKETT, Jonathon Primary Care Provider [phone] Rakan Del Toro MD Attending Provider Obermeyer RESIDENTIAL SUPPORT SPECIALIST-C, Brianda L Attending Provider Obermeyer, Brianda L Admitting Unavailable Obermeyer, Brianda L Attending Unavailable Mikeerekeagan, Jonathon Primary Care Unavailable Obermeyer, Brianda L Admitting Unavailable Obermeyer, Brianda L Attending Unavailable Mikeerekeagan, Jonathon Primary Care Unavailable Renetta, Rakan Admitting Unavailable Renetta, Rakan Attending Unavailable Mikeerekeagan, Jonathon Primary Care Unavailable Obermeyer, Brianda L Admitting Unavailable Obermeyer, Brianda Box Attending Unavailable Natasha, Jonathon Primary Care Unavailable Natasha, Jonathon Primary Care Unavailable Blake Zhao Admitting Unavailable Blake Zhao Attending Unavailable Natasha, Jonathon Primary Care Unavailable Blake Zhao Admitting Unavailable Blake Zhao Attending Unavailable Jonathon Kaur MD Primary Care Provider JONATHON KAUR Attending Unavailable LORRAINE CHURCH Attending Unavailable SHAIKH LANDEROS Referring Unavailable SHAIKH LANDEROS Referring Unavailable PALOMA MAXWELL Attending Unavailable JONATHON KAUR Attending Unavailable JONATHON KAUR Attending Unavailable JONATHON KAUR Attending Unavailable ELTAHAWY, EHAB Attending Unavailable [place]HAWY, EHAB Attending Unavailable [place], EHAB Attending Unavailable [place], EHAB Attending Unavailable [place], EHAB Attending Unavailable Allergies Allergy Classification Reported Allergen(s) Allergy Type Date of Onset Reaction(s) Facility (1 source) Chlorthalidone; Translations: [CHLORTHALIDONE] Drug Allergy 01-10-2024 [facility] Repository (1 source) Spironolactone; Translations: [SPIRONOLACTONE] Drug Allergy 01-10-2024 [facility] Repository Medications Current Medications Medication Drug Class(es) [...] Platelet Aggregation Inhibitor, Nonsteroidal Anti-inflammatory Drug Start: 11-04-20 22 take 1 tablet by mouth once daily Aspirin Enteric Coated 81 mg oral delayed release tablet ; 1 tab(s) orally once a day Quantity: 0 Refills: 0 Ordered: 16-Jan-2022 RudyrenayStephania Start: 16-Jan-2022 Generic Substitution Allowed atorvastatin 80 mg oral tablet (20 sources) HMG-CoA Reductase Inhibitor Start: 02-14-20 24 take 0.5 tablet by mouth at bedtime [...] DO Active carvedilol 12.5 mg oral tablet (12 sources) alpha-Adrenergic Kristal, beta-Adrenergic Kristal take 2 [...] MG tablet Indications: 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) TAKE [...] day Quantity: 0 Refills: 0 Ordered: 08-Jan-2022 Mallika, Sammie Generic Substitution Allowed lisinopril 10 mg oral [...] package Quantity: 0 Refills: 0 Ordered: 08-Jan-2022 Curt Tenain Status: Discontinued Generic Substitution Allowed 24 hr [...] 16-Jan-2022 Generic Substitution Allowed polyethylene glycol 3350 85450 mg powder for oral solution (1 source) [...] Start: 01-16-2022 take 1 capsule by mo [facility] twice daily as needed docusate [...] cl 25,000 unit/250 mL Parenteral Solution Discontinued 68018 UNIT IV .Q24H January 05, 2022 11:00pm [...] Active Start: 01-27-2022 take 1 capsule by [facility] once daily iron polysaccharide (as elemental iron) [...] Active Start: 01-27-2022 take 1 tablet by [facility] twice daily sodium bicarbonate 650 mg [...] [Other premature beats] Chronic Chronic kidney disease (14 sources) Chronic kidney disease stage 3A ; Translations: [Stage 3a chronic kidney disease (CKD)] Onset: 07-14-2023 07-14-2023 Chronic Coagulation and hemorrhagic disorders (1 source) Thrombocytopenic disorder; Translations: [Thrombocytopenia, unspecified] 01-09-2022 Chronic Conditions associated with dizziness or vertigo (4 sources) Lightheadedness; Translations: [Dizziness and giddiness] Episodic Congestive heart failure; nonhypertensive (16 sources) Left heart failure; Translations: [Left heart failure] Onset: 01-12-2022 01-13-2022 Chronic Congestive heart failure; nonhypertensive (5 sources) Congestive heart failure; nonhypertensive 01-06-2022 Coronary atherosclerosis and other heart disease (20 sources) Ischemic myocardial dysfunction; Translations: [Ischemic cardiomyopathy] Onset: 01-13-2022 01-04-2022 Chronic Comment on above: Problem List clean-u p per request of Phys. EHR Cmte Coronary atherosclerosis and other heart disease (6 sources) Presence of aortocoronary bypass graft; Translations: [Presence of aortocoronary bypass graft] Onset: 02-27-2022 Episodic Deficiency and other anemia (1 source) Anemia due to blood loss; Translations: [Iron deficiency anemia secondary to blood loss (chronic)] 01-16-2022 Chronic Deficiency and other anemia (1 source) Deficiency and other anemia 01-16-2022 Disorders of lipid metabolism (17 sources) Hyperlipidemia, unspecified; Translations: [Dyslipidemia] Onset: 06-24-2022 07-14-2023 Chronic Essential hypertension (20 sources) Hypertensive [...] 01-09-2022 Episodic Other aftercare (5 sources) Other marine oil terminal superintendent (current) drug therapy; Translations: [OTH RETAIL ACCOUNT REPRESENTATIVE CURRENT DRUG THERAPY] Onset: 03-11-2022 Episodic Other [...] of Phys. EHR Cmte Unclassified (2 sources) 35745; CABG X2/3 PABLO VEIN; CAD 01-08-2022 Comment on above: 57024; CABG X2/3 ESPINOZA A VEIN; CAD Unclassified [...] EXPOS COVID-19] Onset: 01-06-2022 Unclassified (1 source) Occlusion and stenosis of bilateral carotid arteries; Translations: [Occlusion and stenosis of bilateral carotid arteries] Onset: 05-25-2023 Unclassified (1 source) Resistant hypertension; Translations: [Resistant hypertension] Onset: 10-18-2023 Past or Other Problems Problem Classification Problem Date Documented Date Episodic/Chronic E Codes: Fall (1 source) Unspecified fall, initial encounter; Translations: [UNSPECIFIED FALL INITIAL ENCOUNTER] Onset: 01-06-2022 Episodic Fluid and electrolyte disorders (20 sources) Hyponatremia; Translations: [Hyposmolality and/or hyponatremia] Onset: 04-03-2022 01-16-2022 Episodic Immunizations and screening for infectious disease (1 source) Encounter for immunization; Translations: [ENCOUNTER FOR IMMUNIZATION] Onset: 01-06-2022 Episodic Mood disorders (3 sources) Mood disorders Onset: 05-11-2024 05-11-2024 Nonspecific chest pain (3 sources) Chest pain, unspecified; Translations: [CHEST PAIN UNSPECIFIED] Onset: 01-02-2022 Episodic Open wounds of extremities (1 source) Laceration without foreign body of right elbow, initial encounter; Translations: [LACERATION W/O FB RT ELBOW INITIAL] Onset: 01-06-2022 Episodic Other aftercare (13 sources) Long-term current use of drug therapy; Translations: [Other marine oil terminal superintendent (current) drug therapy] Onset: 07-14-2023 07-14-2023 Episodic Other aftercare (1 source) Patient encounter status; Translations: [Other marine oil terminal superintendent (current) drug therapy] Onset: 07-14-2023 07-14-2023 Episodic Other fractures (14 sources) Closed fracture lumbar vertebra, transverse process ; Translations: [Unspecified fracture of unspecified lumbar vertebra, subsequent encounter for fracture with routine healing] Onset: 01-12-2024 01-12-2024 Episodic Pleurisy; pneumothorax; pulmonary collapse (1 source) Atelectasis; Translations: [Atelectasis] Onset: 02-27-2022 Episodic Residual codes; unclassified (12 sources) Postmenopausal state; Translations: [Asymptomatic menopausal state] Onset: 01-12-2024 01-12-2024 Episodic Unclassified (1 source) CAD 01-08-2022 Comment on above: CAD Unclassified (1 source) Resistant hypertension; Translations: [Resistant hypertension] Onset: 06-01-2024 Results Test Name Value Interpretation Reference Range Facility Office Visiton 06-01-2024 Follow-up visit [id number] Lorraine Finch 1940 F Date Provider Department Center 06/01/2024 Demarco-DAPHNE MCGUIRE CARD Cristóbal Champion Family History Problem Relation Age of Onset Valvular heart disease Mother Heart attack Father Heart attack Brother Coronary artery disease Brother Family Status - Relation Status Age at Mother Father Brother Level of Service:18613 [place] OFFICE/OUTPATIENT ESTABLISHED MOD MDM 30 MIN Normal [facility] Orders Onlyon 06-01-2024 Orders Only [id number] Lorraine Finch 1940 F Date Provider Department Center 06/01/2024 TIARA BERKOWITZ CARD Cristóbal Hos Family History Problem Relation Age of Onset Valvular heart disease Mother Heart attack Father Heart attack Brother Coronary artery disease Brother Family Status - Relation Status Age at Mother Father Brother Normal [facility] ALL CBC WITH AUTO DIFFon BASOPHILS ABSOLUTE AUTO 0.1 [facility] Basophils/100 WBC (Bld) 0.7 % 0.2 - 2.0 % [facility] Eosinophils/100 WBC (Bld) 3 % 0.9 - 7.0 % [facility] Erythrocyte distribution width (RBC) [Ratio] 13.5 % 11.0 - 15.0 % [facility] Hematocrit (Bld) [Volume fraction] 41.9 % 36.0 - 48.0 % [facility] Hemoglobin (Bld) [Mass/Vol] 14 g/dL 12.0 - 16.0 g/dL [facility] IMMATURE GRANULOCYTES ABS AUTO 0.02 [facility] Immature granulocytes/100 WBC (Bld) 0.3 % 0.0 - 0.5 % [facility] Interpretation and review of laboratory results Abnormal [facility] LYMPHOCYTES ABSOLUTE AUTO 1.3 [facility] Lymphocytes/100 WBC (Bld) 19.3 % Low 20.5 - 60.0 % [facility] MCH (RBC) [Entitic mass] 29.9 pg 26.7 - 34.0 pg [facility] MCHC (RBC) [Mass/Vol] 33.4 g/dL 29.9 - 35.2 g/dL [facility] MCV (RBC) [Entitic vol] 89.3 fL 81.0 - 99.0 fL [facility] MONOCYTES ABSOLUTE AUTO 0.8 [facility] Monocytes/100 WBC (Bld) 11.9 % 1.7 - 12.0 % [facility] NEUTROPHILS ABSOLUTE AUTO 4.3 [facility] Neutrophils/100 WBC (Bld) 64.8 % 43.0 - 75.0 % [facility] Platelet mean volume (Bld) [Entitic vol] 10.6 fL 9.5 - 13.5 fL [facility] TBH EO # 0.2 [facility]H PLT 278 [facility]H RBC 4.69 [facility]H WBC 6.7 [facility] Alanine aminotransferase [En zymatic activity/volume] in Serum or PlasmaOrdered By: Brianda Harris on 03-21-2024 ALT [Catalytic activity/Vol] Alanine aminotransferase [Enzymatic activity/volume] in Serum or Plasma 7-52 [facility] Albumin [Mass/volume] in Ser um or Plasma by Bromocresol green (BCG) dye binding methoOrdered By: Brianda Harris on 03-21-2024 Albumin BCG dye [Mass/Vol] Albumin [Mass/volume] in Serum or Plasma by Bromocresol green (BCG) dye binding metho 3.5-5.7 [facility] Alkaline phosphatase [Enzyma tic activity/volume] in Serum or PlasmaOrdered By: Brianda Harris on 03-21-2024 ALP [Catalytic activity/Vol] Alkaline phosphatase [Enzymatic activity/volume] in Serum or Plasma 34-104 [facility] Aspartate aminotransferase [ Enzymatic activity/volume] in Serum or PlasmaOrdered By: Brianda Harris on 03-21-2024 AST [Catalytic activity/Vol] Aspartate aminotransferase [Enzymatic activity/volume] in Serum or Plasma 13-39 [facility] Basophils Auto (Bld) [#/Vol] Ordered By: Brianda Harris on 03-21-2024 Basophils (Bld) [#/Vol] Automated basophil count 0.0-0.2 [facility] Basophils/100 WBC Auto (Bld) Ordered By: Brianda Harris on 03-21-2024 Basophils/100 WBC (Bld) Automated basophil % . [facility] Bilirubin.total [Mass/volume ] in Serum or PlasmaOrdered By: Brianda Harris on 03-21-2024 Bilirubin [Mass/Vol] Bilirubin.total [Mass/volume] in Serum or Plasma 0.3-1.0 [facility] Calcium [Mass/volume] in Ser um or PlasmaOrdered By: Brianda Harris on 03-21-2024 Calcium [Mass/Vol] Calcium [Mass/volume ] in Serum or Plasma 8.6-10.3 [facility] Carbon dioxide, total [Moles /volume] in Serum or PlasmaOrdered By: Brianda Harris on 03-21-2024 CO2 [Moles/Vol] Carbon dioxide, tota l [Moles/volume] in Serum or Plasma 21.0-31.0 [facility] Chloride [Moles/volume] in S sarwat or PlasmaOrdered By: Brianda Harris on 03-21-2024 Chloride [Moles/Vol] Chloride [Moles/vol ume] in Serum or Plasma 98-107 [facility] Complete Blood Count Auto Di ffon 03-21-2024 Basophils (Bld) [#/Vol] 0.1 10*3/uL Normal 0.0-0.2 The Count Includes [facility] Comment on above: Performed By: #### C MP, ESR, CBC #### [facility] [address] [place] [address] [place] Basophils/100 WBC (Bld) 0.8 % Normal . The Count Includes [facility] Comment on above: Performed By: #### C MP, ESR, CBC #### [facility] [address] [place] [address] [place] Eosinophils (Bld) [#/Vol] 0.2 10*3/uL Normal 0.0-0.45 The Count Includes [facility] Comment on above: Performed By: #### C MP, ESR, CBC #### [facility] [address] [place] [address] [place] Eosinophils/100 WBC (Bld) 2.2 % Normal . The Count Includes [facility] Comment on above: Performed By: #### C MP, ESR, CBC #### [address] Erythrocyte distribution width (RBC) [Ratio] 14.3 % Normal 11.9-15.3 The Count Includes [facility] Comment on above: Performed By: #### C MP, ESR, CBC #### [facility] [address] Hematocrit (Bld) [Volume fraction] 40.1 % Normal 34.0-46.4 The Count Includes [facility] Comment on above: Performed By: #### C MP, ESR, CBC #### [address] Hemoglobin (Bld) [Mass/Vol] 13.5 g/dL Normal 11.8-15.4 The Count Includes [facility] Comment on above: Performed By: #### C MP, ESR, CBC #### [facility] [address] Lymphocytes (Bld) [#/Vol] 1.5 10*3/uL Normal 1.00-4.8 The Count Includes [facility] Comment on above: Performed By: #### C MP, ESR, CBC #### [address] Lymphocytes/100 WBC (Bld) 18.8 % Normal . The Count Includes [facility] Comment on above: Performed By: #### C MP, ESR, CBC #### [address] MCH (RBC) [Entitic mass] 30.4 pg Normal 24.7-34.3 The Count Includes [facility] Comment on above: Performed By: #### C MP, ESR, CBC #### [address] MCV (RBC) [Entitic vol] 90.2 fL Normal 80-100 The Count Includes [facility] Comment on above: Performed By: #### C MP, ESR, CBC #### [address] Mean Corpuscular HGB Conc 33.7 g/dL Normal 32.0-35.0 The Count Includes [facility] Comment on above: Performed By: #### C MP, ESR, CBC #### [address] Monocytes (Bld) [#/Vol] 0.8 10*3/uL Normal 0.0-0.8 The Count Includes [facility] Comment on above: Performed By: #### C MP, ESR, CBC #### [place] [address] [place] Monocytes/100 WBC (Bld) 10.3 % Normal . The Count Includes [facility] Comment on above: Performed By: #### C MP, ESR, CBC #### [address] Neutrophils (Bld) [#/Vol] 5.5 10*3/uL Normal 1.8-7.7 The Count Includes [facility] Comment on above: Performed By: #### C MP, ESR, CBC #### [address] Neutrophils/100 WBC (Bld) 67.9 % Normal . The Count Includes [facility] Comment on above: Performed By: #### C MP, ESR, CBC #### [address] NRBC% 0.1 /100{WBC} Normal 0-0.5 The Count Includes [facility] Comment on above: Performed By: #### C MP, ESR, CBC #### [address] Platelet mean volume (Bld) [Entitic vol] 9.4 fL Normal 6.3-10.7 The Count Includes [facility] Comment on above: Performed By: #### C MP, ESR, CBC #### [address] Platelets (Bld) [#/Vol] 254 10*3/uL Normal 150-450 The Count Includes [facility] Comment on above: Performed By: #### C MP, ESR, CBC #### [address] RBC (Bld) [#/Vol] 4.45 10*6/uL Normal 3.60-5.00 The Count Includes [facility] Comment on above: Performed By: #### C MP, ESR, CBC #### [address] WBC (Bld) [#/Vol] 8.1 10*3/uL Normal 3.8-11.6 The Count Includes [facility] Comment on above: Performed By: #### C MP, ESR, CBC #### [address] Comprehensive Metabolic Pane radha 03-21-2024 Albumin [Mass/Vol] 4.0 g/dL Normal 3.5-5.7 The Count Includes [facility] Comment on above: Performed By: #### C MP, ESR, CBC #### [address] [address] [place] Albumin/Globulin [Mass ratio] 1.3 {ratio} Normal The Count Includes [facility] Comment on above: Performed By: #### C MP, ESR, CBC #### [address] ALP [Catalytic activity/Vol] 55 U/L Normal 34-104 The Count Includes [facility] Comment on above: Result Comment: PERF ORMED BY: [place] [address] PATHOLOGIST WEB DESIGNER BRIAN BARROW M.D. Performed By: #### C MP, ESR, CBC #### [address] ALT [Catalytic activity/Vol] 14 U/L Normal 7-52 The Count Includes [facility] Comment on above: Performed By: #### C MP, ESR, CBC #### [address] Anion gap [Moles/Vol] 10.8 mmol/L Normal 6.0-15.0 [facility] Comment on above: Performed By: #### C MP, ESR, CBC #### [address] AST [Catalytic activity/Vol] 23 U/L Normal 13-39 The Count Includes [facility] Comment on above: Performed By: #### C MP, ESR, CBC #### [address] Bilirubin [Mass/Vol] 0.3 mg/dL Normal 0.3-1.0 The Count Includes [facility] Comment on above: Performed By: #### C MP, ESR, CBC #### [address] Calcium [Mass/Vol] 9.5 mg/dL Normal 8.6-10.3 The Count Includes [facility] Comment on above: Performed By: #### C MP, ESR, CBC #### [address] Chloride [Moles/Vol] 102 mmol/L Normal 98-107 The Count Includes [facility] Comment on above: Performed By: #### C MP, ESR, CBC #### [facility] [address] CO2 [Moles/Vol] 24.5 mmol/L Normal 21.0-31.0 The Count Includes [facility] Comment on above: Performed By: #### C MP, ESR, CBC #### [facility] [address] Creatinine [Mass/Vol] 0.89 mg/dL Normal 0.60-1.20 The Count Includes [facility] Comment on above: Performed By: #### C MP, ESR, CBC #### [place] [address] [place] GFR/1.73 sq M.predicted MDRD (S/P/Bld) [Vol rate/Area] mL/min/{1.73_m2} Normal The Count Includes [facility] Comment on above: Performed By: #### C MP, ESR, CBC #### [address] Globulin (S) [Mass/Vol] 3.1 g/dL Normal The Count Includes [facility] Comment on above: Performed By: #### C MP, ESR, CBC #### [address] Glucose [Mass/Vol] 84 mg/dL Normal 70-100 The Count Includes [facility] Comment on above: Result Comment: [place] Glucose Reference Range is dependent on time and content of last meal. Glucose of more than 200 mg/dL in a nonstressed, ambulatory subject supports the diagnosis of Diabetes Mellitus. ADA recommended reference range Performed By: #### C MP, ESR, CBC #### [address] Potassium [Moles/Vol] 4.3 mmol/L Normal 3.5-5.1 The Count Includes [facility] Comment on above: Performed By: #### C MP, ESR, CBC #### [address] Protein [Mass/Vol] 7.1 g/dL Normal 6.4-8.9 The Count Includes [facility] Comment on above: Performed By: #### C MP, ESR, CBC #### [address] Sodium [Moles/Vol] 133 mmol/L Low 136-145 The Count Includes [facility] Comment on above: Performed By: #### C MP, ESR, CBC #### [facility] [address] Urea nitrogen [Mass/Vol] 21 mg/dL Normal 7-25 The Count Includes [facility] Comment on above: Performed By: #### C MP, ESR, CBC #### [address] Creatinine [Mass/volume] in Serum or PlasmaOrdered By: Brianda Harris on 03-21-2024 Creatinine [Mass/Vol] Creatinine [Mass/v olume] in Serum or Plasma 0.60-1.20 [facility] Eosinophils Auto (Bld) [#/Vo l]Ordered By: Brianda Harris on 03-21-2024 Eosinophils (Bld) [#/Vol] Automated eosinophil count 0.0-0.45 [facility] Eosinophils/100 WBC Auto (Bl d)Ordered By: Brianda Harris on 03-21-2024 Eosinophils/100 WBC (Bld) Automated eosinophil % . [facility] Erythrocyte Sedimentation Ra moose 03-21-2024 ESR (Bld) [Velocity] 54 mm/h High 0-29 The Count Includes [facility] Comment on above: Result Comment: PERF ORMED BY: [address] [place] [address] PATHOLOGIST WEB DESIGNER BRIAN BARROW M.D. Performed By: #### C BC, CMP, ESR #### [address] Erythrocyte distribution wid th Auto (RBC) [Ratio]Ordered By: Brianda Harris on 03-21-2024 Erythrocyte distribution width (RBC) [Ratio] Erythrocyte distribution width [Ratio] by Automated count 11.9-15.3 [facility] Erythrocyte sedimentation ra te by Photometric methodOrdered By: Brianda Harris on 03-21-2024 ESR Photometric method (Bld) [Velocity] Erythrocyte sedimentation rate by Photometric method High 0-29 [facility] Globulin Calc (S) [Mass/Vol] Ordered By: Brianda Harris on 03-21-2024 Globulin (S) [Mass/Vol] Serum globulin measurement by calculation (mass/volume) [facility] Glucose [Mass/volume] in Ser um or PlasmaOrdered By: Brianda Harris on 03-21-2024 Glucose [Mass/Vol] Glucose [Mass/volume ] in Serum or Plasma 70-100 [facility] Comment on above: ADA recommended refe rence rangeRandom Glucose Reference Range is dependent on time and content of last meal. Glucose of more than 200 mg/dL in a nonstressed, ambulatory subject supports the diagnosis of Diabetes Mellitus. Hematocrit Auto (Bld) [Volum e fraction]Ordered By: Brianda Harris on 03-21-2024 Hematocrit (Bld) [Volume fraction] Hematocrit [Volume Fraction] of Blood by Automated count 34.0-46.4 [facility] Hemoglobin [Mass/volume] in BloodOrdered By: Brianda Harris on 03-21-2024 Hemoglobin (Bld) [Mass/Vol] Hemoglobin [Mass/volume] in Blood 11.8-15.4 [facility] Leukocytes [#/volume] correc abena for nucleated erythrocytes in Blood by Automated counOrdered By: Brianda Harris on 03-21-2024 WBC corrected for nucl RBC Auto (Bld) [#/Vol] Leukocytes [#/volume] corrected for nucleated erythrocytes in Blood by Automated coun 3.8-11.6 [facility] Lymphocytes Auto (Bld) [#/Vo l]Ordered By: Brianda Harris on 03-21-2024 Lymphocytes (Bld) [#/Vol] Lymphocytes [#/volume] in Blood by Automated count 1.00-4.8 [facility] Lymphocytes/100 WBC Auto (Bl d)Ordered By: Brianda Harris on 03-21-2024 Lymphocytes/100 WBC (Bld) Lymphocytes/100 leukocytes in Blood by Automated count . [facility] MCH Auto (RBC) [Entitic mass ]Ordered By: Brianda Harris on 03-21-2024 MCH (RBC) [Entitic mass] MCH [Entitic mass] by Automated count 24.7-34.3 [facility] MCHC Auto (RBC) [Mass/Vol]Or dered By: Brainda Harris on 03-21-2024 MCHC (RBC) [Mass/Vol] MCHC [Mass/volume] by Automated count 32.0-35.0 [facility] MCV Auto (RBC) [Entitic vol] Ordered By: Brianda Harris on 03-21-2024 MCV (RBC) [Entitic vol] MCV [Entitic volume] by Automated count 80-100 [facility] Monocytes Auto (Bld) [#/Vol] Ordered By: Brianda Harris on 03-21-2024 Monocytes (Bld) [#/Vol] Automated blood monocyte count 0.0-0.8 [facility] Monocytes/100 WBC Auto (Bld) Ordered By: Brianda Harris on 03-21-2024 Monocytes/100 WBC (Bld) Automated monocyte % . [facility] Neutrophils Auto (Bld) [#/Vo l]Ordered By: Brianda Harris on 03-21-2024 Neutrophils (Bld) [#/Vol] Neutrophils [#/volume] in Blood by Automated count 1.8-7.7 [facility] Neutrophils/100 WBC Auto (Bl d)Ordered By: Brianda Harris on 03-21-2024 Neutrophils/100 WBC (Bld) Automated neutrophil % . [facility] No Panel InformationOrdered By: Brianda Harris on 03-21-2024 Estimated GFR (CKD-EPI) > 60.0 mL/Min [facility] Creatinine Clearance (Chem N/A [facility] Nucleated erythrocytes [Pres ence] in Blood by Automated countOrdered By: Brianda Harris on 03-21-2024 Nucleated RBC Auto Ql (Bld) Nucleated erythrocytes [Presence] in Blood by Automated count 0-0.5 [facility] Platelet mean volume Auto (B ld) [Entitic vol]Ordered By: Brianda Harris on 03-21-2024 Platelet mean volume (Bld) [Entitic vol] Platelet mean volume [Entitic volume] in Blood by Automated count 6.3-10.7 [facility] Platelets Auto (Bld) [#/Vol] Ordered By: Brianda Harris on 03-21-2024 Platelets (Bld) [#/Vol] Platelets [#/volume] in Blood by Automated count 150-450 [facility] Potassium [Moles/volume] in Serum or PlasmaOrdered By: Brianda Harris on 03-21-2024 Potassium [Moles/Vol] Potassium [Moles/v olume] in Serum or Plasma 3.5-5.1 [facility] Protein [Mass/volume] in Ser um or PlasmaOrdered By: Brianda Harris on 03-21-2024 Protein [Mass/Vol] Protein [Mass/volume ] in Serum or Plasma 6.4-8.9 [facility] RBC Auto (Bld) [#/Vol]Ordere d By: Brianda Harris on 03-21-2024 RBC (Bld) [#/Vol] Erythrocytes [#/volu me] in Blood by Automated count 3.60-5.00 [facility] Serum or plasma albumin/glob ulin mass ratioOrdered By: Brianda Harris on 03-21-2024 Albumin/Globulin [Mass ratio] Serum or plasma albumin/globulin mass ratio [facility] Serum or plasma anion gap de terminationOrdered By: Brianda Harris on 03-21-2024 Anion gap [Moles/Vol] Serum or plasma an ion gap determination 6.0-15.0 [facility] Sodium [Moles/volume] in Ser um or PlasmaOrdered By: Brianda Harris on 03-21-2024 Sodium [Moles/Vol] Sodium [Moles/volume ] in Serum or Plasma Low 136-145 [facility] Urea nitrogen [Mass/volume] in Serum or PlasmaOrdered By: Brianda Harris on 03-21-2024 Urea nitrogen [Mass/Vol] Urea nitrogen [Mass/volume] in Serum or Plasma 7-25 [facility] WBC Auto (Bld) [#/Vol]Ordere d By: Brianda Harris on 03-21-2024 WBC (Bld) [#/Vol] Leukocytes [#/volume ] in Blood by Automated count 3.8-11.6 [facility] Alanine aminotransferase [En zymatic activity/volume] in Serum or PlasmaOrdered By: Rakan Del Toro on 01-13-2024 ALT [Catalytic activity/Vol] 15 U/L Normal [facility] Comment on above: Performed By: #### C MP, ESR, CBC #### [address] ALT [Catalytic activity/Vol] Alanine aminotransferase [Enzymatic activity/volume] in Serum or Plasma [facility] Albumin [Mass/volume] in Ser um or Plasma by Bromocresol green (BCG) dye binding methoOrdered By: Rakan Del Toro on 01-13-2024 Albumin BCG dye [Mass/Vol] 4.2 g/dL 3.5-5.7 [facility] Albumin BCG dye [Mass/Vol] Albumin [Mass/volume] in Serum or Plasma by Bromocresol green (BCG) dye binding metho 3.5-5.7 [facility] Alkaline phosphatase [Enzyma tic activity/volume] in Serum or PlasmaOrdered By: Rakan Del Toro on 01-13-2024 ALP [Catalytic activity/Vol] 63 U/L Normal 34 [facility] Comment on above: Result Comment: PERF ORMED BY: [place] [address] PATHOLOGIST WEB DESIGNER RENE BOWSER M.D. Performed By: #### C MP, ESR, CBC #### [address] ALP [Catalytic activity/Vol] Alkaline phosphatase [Enzymatic activity/volume] in Serum or Plasma [address] [facility] Aspartate aminotransferase [ Enzymatic activity/volume] in Serum or PlasmaOrdered By: Rakan Del Toro on 01-13-2024 AST [Catalytic activity/Vol] 21 U/L Normal 13-39 [facility] Comment on above: Performed By: #### C MP, ESR, CBC #### [address] AST [Catalytic activity/Vol] Aspartate aminotransferase [Enzymatic activity/volume] in Serum or Plasma 13-39 [facility] Automated basophil %Ordered By: Rakan Del Toro on 01-13-2024 Basophils/100 WBC (Bld) 0.9 % Normal . [facility] Comment on above: Performed By: #### C MP, ESR, CBC #### [address] Automated basophil countOrde red By: Rakan Del Toro on 01-13-2024 Basophils (Bld) [#/Vol] 0.1 10*3/uL Normal 0.0-0.2 [facility] Comment on above: Performed By: #### C MP, ESR, CBC #### [address] Automated blood monocyte cou ntOrdered By: Rakan Coxrow on 01-13-2024 Monocytes (Bld) [#/Vol] 0.7 10*3/uL Normal 0.0-0.8 [facility] Comment on above: Performed By: #### C MP, ESR, CBC #### [address] Automated eosinophil %Ordere d By: Rakan Coxrow on 01-13-2024 Eosinophils/100 WBC (Bld) 3.2 % Normal . [facility] Comment on above: Performed By: #### C MP, ESR, CBC #### [address] Automated eosinophil countOr dered By: Rakan oCxrow on 01-13-2024 Eosinophils (Bld) [#/Vol] 0.2 10*3/uL Normal 0.0-0.45 [facility] Comment on above: Performed By: #### C MP, ESR, CBC #### [address] Automated monocyte %Ordered By: Rakan Coxrow on 01-13-2024 Monocytes/100 WBC (Bld) 9.7 % Normal . [facility] Comment on above: Performed By: #### C MP, ESR, CBC #### [address] [place] [address] [place] Automated neutrophil %Ordere d By: Rakan Del Toro on 01-13-2024 Neutrophils/100 WBC (Bld) 66.5 % Normal . [facility] Comment on above: Performed By: #### C MP, ESR, CBC #### [facility] [address] Basophils Auto (Bld) [#/Vol] Ordered By: Rakan Coxrow on 01-13-2024 Basophils (Bld) [#/Vol] Automated basophil count 0.0-0.2 [facility] Basophils/100 WBC Auto (Bld) Ordered By: Rakan Coxrow on 01-13-2024 Basophils/100 WBC (Bld) Automated basophil % . [facility] Bilirubin.total [Mass/volume ] in Serum or PlasmaOrdered By: Rakan Renetta on 01-13-2024 Bilirubin [Mass/Vol] 0.3 mg/dL Normal 0.3-1.0 [facility] Comment on above: Performed By: #### C MP, ESR, CBC #### [address] Bilirubin [Mass/Vol] Bilirubin.total [Mass/volume] in Serum or Plasma 0.3-1.0 [facility] Calcium [Mass/volume] in Ser um or PlasmaOrdered By: Rakan Del Toro on 01-13-2024 Calcium [Mass/Vol] 9.3 mg/dL Normal 8.6-10.3 [facility] Comment on above: Performed By: #### C MP, ESR, CBC #### [address] Calcium [Mass/Vol] Calcium [Mass/volume ] in Serum or Plasma 8.6-10.3 [facility] Carbon dioxide, total [Moles /volume] in Serum or PlasmaOrdered By: Rakananahi Del Toro on 01-13-2024 CO2 [Moles/Vol] 24.6 mmol/L Normal 21.0-31.0 [facility] Comment on above: Performed By: #### C MP, ESR, CBC #### [address] CO2 [Moles/Vol] Carbon dioxide, tota l [Moles/volume] in Serum or Plasma 21.0-31.0 [facility] Chloride [Moles/volume] in S sarwat or PlasmaOrdered By: Rakan Del Toro on 01-13-2024 Chloride [Moles/Vol] 99 mmol/L Normal 98-107 [facility] Comment on above: Performed By: #### C MP, ESR, CBC #### [address] Chloride [Moles/Vol] Chloride [Moles/vol ume] in Serum or Plasma 98-107 [facility] Complete Blood Count Auto Di ffon 01-13-2024 Mean Corpuscular HGB Conc 33.7 g/dL Normal 32.0-35.0 The Count Includes [facility] Comment on above: Performed By: #### C MP, ESR, CBC #### [address] NRBC% 0.1 /100{WBC} Normal 0-0.5 The Count Includes [facility] Comment on above: Performed By: #### C MP, ESR, CBC #### [address] Comprehensive Metabolic Pane radha 01-13-2024 Albumin [Mass/Vol] 4.2 g/dL Normal 3.5-5.7 The Count Includes [facility] Comment on above: Performed By: #### C MP, ESR, CBC #### [address] GFR/1.73 sq M.predicted MDRD (S/P/Bld) [Vol rate/Area] mL/min/{1.73_m2} Normal The Count Includes [facility] Comment on above: Performed By: #### C MP, ESR, CBC #### [address] Creatinine [Mass/volume] in Serum or PlasmaOrdered By: Rakan Del Toro on 01-13-2024 Creatinine [Mass/Vol] 0.78 mg/dL Normal 0.60-1.20 [facility] Comment on above: Performed By: #### C MP, ESR, CBC #### [facility] [address] Creatinine [Mass/Vol] Creatinine [Mass/v olume] in Serum or Plasma 0.60-1.20 [facility] Eosinophils Auto (Bld) [#/Vo l]Ordered By: Rakan Del Toro on 01-13-2024 Eosinophils (Bld) [#/Vol] Automated eosinophil count 0.0-0.45 [facility] Eosinophils/100 WBC Auto (Bl d)Ordered By: Rakan Del Toro on 01-13-2024 Eosinophils/100 WBC (Bld) Automated eosinophil % . [facility] Erythrocyte Sedimentation Ra moose 01-13-2024 ESR (Bld) [Velocity] 46 mm/h High 0-29 The Count Includes [facility] Comment on above: Result Comment: PERF ORMED BY: [place] [address] PATHOLOGIST WEB DESIGNER RENE BOWSER M.D. Performed By: #### C MP, ESR, CBC #### [facility] [address] [place] [address] Erythrocyte distribution wid th Auto (RBC) [Ratio]Ordered By: Rakan Del Toro on 01-13-2024 Erythrocyte distribution width (RBC) [Ratio] Erythrocyte distribution width [Ratio] by Automated count High 11.9-15.3 [facility] Erythrocyte distribution wid th [Ratio] by Automated countOrdered By: Rakan Del Toro on 01-13-2024 Erythrocyte distribution width (RBC) [Ratio] 15.4 % High 11.9-15.3 [facility] Comment on above: Performed By: #### C MP, ESR, CBC #### [facility] [address] [place] [address] Erythrocyte sedimentation ra te by Photometric methodOrdered By: Rakan Del Toro on 01-13-2024 ESR Photometric method (Bld) [Velocity] 46 mm/hr High 0-29 [facility] ESR Photometric method (Bld) [Velocity] Erythrocyte sedimentation rate by Photometric method High 0-29 [facility] Erythrocytes [#/volume] in B lood by Automated countOrdered By: Rakan Del Toro on 01-13-2024 RBC (Bld) [#/Vol] 4.40 10*6/uL Normal 3.60-5.00 [facility] Comment on above: Performed By: #### C MP, ESR, CBC #### [facility] [address] Globulin Calc (S) [Mass/Vol] Ordered By: Rakan Del Toro on 01-13-2024 Globulin (S) [Mass/Vol] Serum globulin measurement by calculation (mass/volume) [facility] Glucose [Mass/volume] in Ser um or PlasmaOrdered By: Rakan Del Toro on 01-13-2024 Glucose [Mass/Vol] 85 mg/dL Normal 70-100 [facility] Comment on above: ADA recommended refe rence rangeRandom Glucose Reference Range is dependent on time and content of last meal. Glucose of more than 200 mg/dL in a nonstressed, ambulatory subject supports the diagnosis of Diabetes Mellitus. Result Comment: [place] Glucose Reference Range is dependent on time and content of last meal. Glucose of more than 200 mg/dL in a nonstressed, ambulatory subject supports the diagnosis of Diabetes Mellitus. ADA recommended reference range Performed By: #### C MP, ESR, CBC #### [facility] [address] [place], [place] [id number] [facility] Glucose [Mass/Vol] Glucose [Mass/volume ] in Serum or Plasma 70-100 [facility] Comment on above: ADA recommended refe rence rangeRandom Glucose Reference Range is dependent on time and content of last meal. Glucose of more than 200 mg/dL in a nonstressed, ambulatory subject supports the diagnosis of Diabetes Mellitus. Hematocrit Auto (Bld) [Volum e fraction]Ordered By: Rakan Del Toro on 01-13-2024 Hematocrit (Bld) [Volume fraction] Hematocrit [Volume Fraction] of Blood by Automated count 34.0-46.4 [facility] Hematocrit [Volume Fraction] of Blood by Automated countOrdered By: Rakan Del Toro on 01-13-2024 Hematocrit (Bld) [Volume fraction] 39.0 % Normal 34.0-46.4 [facility] Comment on above: Performed By: #### C MP, ESR, CBC #### [facility] [address] [place] [address] Hemoglobin [Mass/volume] in BloodOrdered By: Rakan Del Toro on 01-13-2024 Hemoglobin (Bld) [Mass/Vol] 13.2 g/dL Normal 11.8-15.4 [facility] Comment on above: Performed By: #### C MP, ESR, CBC #### [address] Hemoglobin (Bld) [Mass/Vol] Hemoglobin [Mass/volume] in Blood 11.8-15.4 [facility] Leukocytes [#/volume] correc abena for nucleated erythrocytes in Blood by Automated counOrdered By: Rakan Del Toro on 01-13-2024 WBC corrected for nucl RBC Auto (Bld) [#/Vol] 7.5 10*3/uL 3.8-11.6 [facility] WBC corrected for nucl RBC Auto (Bld) [#/Vol] Leukocytes [#/volume] corrected for nucleated erythrocytes in Blood by Automated coun 3.8-11.6 [facility] Leukocytes [#/volume] in Blo od by Automated countOrdered By: Rakan Del Toro on 01-13-2024 WBC (Bld) [#/Vol] 7.5 10*3/uL Normal 3.8-11.6 [facility] Comment on above: Performed By: #### C MP, ESR, CBC #### [facility] [address] [place] [address] Lymphocytes Auto (Bld) [#/Vo l]Ordered By: Rakan Del Toro on 01-13-2024 Lymphocytes (Bld) [#/Vol] Lymphocytes [#/volume] in Blood by Automated count 1.00-4.8 [facility] Lymphocytes [#/volume] in Bl ood by Automated countOrdered By: Rakan Del Toro on 01-13-2024 Lymphocytes (Bld) [#/Vol] 1.5 10*3/uL Normal 1.00-4.8 [facility] Comment on above: Performed By: #### C MP, ESR, CBC #### [facility] [address] Lymphocytes/100 WBC Auto (Bl d)Ordered By: Rakan Del Toro on 01-13-2024 Lymphocytes/100 WBC (Bld) Lymphocytes/100 leukocytes in Blood by Automated count . [facility] Lymphocytes/100 leukocytes i n Blood by Automated countOrdered By: Rakan Del Toro on 01-13-2024 Lymphocytes/100 WBC (Bld) 19.7 % Normal . [facility] Comment on above: Performed By: #### C MP, ESR, CBC #### [address] MCH Auto (RBC) [Entitic mass ]Ordered By: Rakan Del Toro on 01-13-2024 MCH (RBC) [Entitic mass] MCH [Entitic mass] by Automated count 24.7-34.3 [facility] MCH [Entitic mass] by Automa abena countOrdered By: Rakan Del Toro on 01-13-2024 MCH (RBC) [Entitic mass] 29.9 pg Normal 24.7-34.3 [facility] Comment on above: Performed By: #### C MP, ESR, CBC #### [facility] [address] [place] [address] MCHC Auto (RBC) [Mass/Vol]Or dered By: Rakan Del Toro on 01-13-2024 MCHC (RBC) [Mass/Vol] 33.7 g/dL 32.0-35.0 [facility] MCHC (RBC) [Mass/Vol] MCHC [Mass/volume] by Automated count 32.0-35.0 [facility] MCV Auto (RBC) [Entitic vol] Ordered By: Rakan Del Toro on 01-13-2024 MCV (RBC) [Entitic vol] MCV [Entitic volume] by Automated count 80-100 [facility] MCV [Entitic volume] by Auto mated countOrdered By: Rakan Del Toro on 01-13-2024 MCV (RBC) [Entitic vol] 88.6 fL Normal 80-100 [facility] Comment on above: Performed By: #### C MP, ESR, CBC #### [facility] [address] [place] [address] [place] Monocytes Auto (Bld) [#/Vol] Ordered By: Rakan Del Toro on 01-13-2024 Monocytes (Bld) [#/Vol] Automated blood monocyte count 0.0-0.8 [facility] Monocytes/100 WBC Auto (Bld) Ordered By: Rakan Del Toro on 01-13-2024 Monocytes/100 WBC (Bld) Automated monocyte % . [facility] Neutrophils Auto (Bld) [#/Vo l]Ordered By: Rakan Del Toro on 01-13-2024 Neutrophils (Bld) [#/Vol] Neutrophils [#/volume] in Blood by Automated count 1.8-7.7 [facility] Neutrophils [#/volume] in Bl ood by Automated countOrdered By: Rakan Del Toro on 01-13-2024 Neutrophils (Bld) [#/Vol] 5.0 10*3/uL Normal 1.8-7.7 [facility] Comment on above: Performed By: #### C MP, ESR, CBC #### [facility] [address] Neutrophils/100 WBC Auto (Bl d)Ordered By: Rakan Del Toro on 01-13-2024 Neutrophils/100 WBC (Bld) Automated neutrophil % . [facility] No Panel InformationOrdered By: Rakan Del Toro on 01-13-2024 Estimated GFR (CKD-EPI) > 60.0 mL/Min [facility] Creatinine Clearance (Chem N/A [facility] Nucleated erythrocytes [Pres ence] in Blood by Automated countOrdered By: Rakan Del Toro on 01-13-2024 Nucleated RBC Auto Ql (Bld) 0.1 /100{WBC} 0-0.5 [facility] Nucleated RBC Auto Ql (Bld) Nucleated erythrocytes [Presence] in Blood by Automated count 0-0.5 [facility] Platelet mean volume Auto (B ld) [Entitic vol]Ordered By: Rakan Del Toro on 01-13-2024 Platelet mean volume (Bld) [Entitic vol] Platelet mean volume [Entitic volume] in Blood by Automated count 6.3-10.7 [facility] Platelet mean volume [Entiti c volume] in Blood by Automated countOrdered By: Rakan Coxrow on 01-13-2024 Platelet mean volume (Bld) [Entitic vol] 8.9 fL Normal 6.3-10.7 [facility] Comment on above: Performed By: #### C MP, ESR, CBC #### [address] Platelets Auto (Bld) [#/Vol] Ordered By: Rakan Renetta on 01-13-2024 Platelets (Bld) [#/Vol] Platelets [#/volume] in Blood by Automated count 150-450 [facility] Platelets [#/volume] in Bloo d by Automated countOrdered By: Rakan Renetta on 01-13-2024 Platelets (Bld) [#/Vol] 312 10*3/uL Normal 150-450 [facility] Comment on above: Performed By: #### C MP, ESR, CBC #### [address] Potassium [Moles/volume] in Serum or PlasmaOrdered By: Rakan Renetta on 01-13-2024 Potassium [Moles/Vol] 4.4 mmol/L Normal 3.5-5.1 [facility] Comment on above: Performed By: #### C MP, ESR, CBC #### [address] Potassium [Moles/Vol] Potassium [Moles/v olume] in Serum or Plasma 3.5-5.1 [facility] Protein [Mass/volume] in Ser um or PlasmaOrdered By: Rakan Del Toro on 01-13-2024 Protein [Mass/Vol] 7.5 g/dL Normal 6.4-8.9 [facility] Comment on above: Performed By: #### C MP, ESR, CBC #### [place] [address] [place] Protein [Mass/Vol] Protein [Mass/volume ] in Serum or Plasma 6.4-8.9 [facility] RBC Auto (Bld) [#/Vol]Ordere d By: Rakan Del Toro on 01-13-2024 RBC (Bld) [#/Vol] Erythrocytes [#/volu me] in Blood by Automated count 3.60-5.00 [facility] Serum globulin measurement b y calculation (mass/volume)Ordered By: Rakan Del Toro on 01-13-2024 Globulin (S) [Mass/Vol] 3.3 g/dL Normal [facility] Comment on above: Performed By: #### C MP, ESR, CBC #### [address] Serum or plasma albumin/glob ulin mass ratioOrdered By: Rakan Del Toro on 01-13-2024 Albumin/Globulin [Mass ratio] 1.3 {ratio} [facility] Comment on above: Performed By: #### C MP, ESR, CBC #### [address] Albumin/Globulin [Mass ratio] Serum or plasma albumin/globulin mass ratio [facility] Serum or plasma anion gap de terminationOrdered By: Rakan Del Toro on 01-13-2024 Anion gap [Moles/Vol] 11.8 mmol/L Normal 6.0-15.0 [facility] Comment on above: Performed By: #### C MP, ESR, CBC #### [address] Anion gap [Moles/Vol] Serum or plasma an ion gap determination 6.0-15.0 [facility] Sodium [Moles/volume] in Ser um or PlasmaOrdered By: Rakan Del Toro on 01-13-2024 Sodium [Moles/Vol] 131 mmol/L Low 136-145 [facility] Comment on above: Performed By: #### C MP, ESR, CBC #### [address] Sodium [Moles/Vol] Sodium [Moles/volume ] in Serum or Plasma Low 136-145 [facility] Urea nitrogen [Mass/volume] in Serum or PlasmaOrdered By: Rakan Del Toro on 01-13-2024 Urea nitrogen [Mass/Vol] 16 mg/dL Normal 10-06 [facility] Comment on above: Performed By: #### C MP, ESR, CBC #### [facility] [address] Urea nitrogen [Mass/Vol] Urea nitrogen [Mass/volume] in Serum or Plasma 10-06 [facility] WBC Auto (Bld) [#/Vol]Ordere d By: Rakan Del Toro on 01-13-2024 WBC (Bld) [#/Vol] Leukocytes [#/volume ] in Blood by Automated count 3.8-11.6 [facility] Office Visiton 01-10-2024 Follow-up visit [id number] Lorraine Finch 1940 F Date Provider Department Center 01/10/2024 [facility] Cristóbal Champion Family History Problem Relation Age of Onset Valvular heart disease Mother Heart attack Father Heart attack Brother Coronary artery disease Brother Family Status - Relation Status Age at Mother Father Brother Level of Service:023[address] [place] OFFICE/OUTPATIENT ESTABLISHED LOW MDM 20 MIN Normal [facility] US carotid doppler BIon 11-14 US carotid doppler BI [facility] [address] [place] [address] Ultrasound Report Signed Patient: Nenita Finch MR#: [id number] 8 : 1940 Acct:[id number] Age/Sex: 83 / F ADM Date: 12/06/23 Loc: [facility] Room: Type: [facility] Attending Dr: Blake Zhao MD Ordering [...] Blake Zhao M.D.12/06/2023 12:38 PM Dictation Location: [place] [address] Tech: Jannie Nieto Transcribed By: TORIN 12/06/23 1238 Dictated By: Blake Zhao MD 12/06/23 1237 Signed By: 12/06/23 1238 Normal The Count Includes [facility] ALL BASIC METABOLIC PANELon 11-11-2023 Anion gap [Moles/Vol] 12.4 mmol/L [facility] Calcium [Mass/Vol] 8.9 mg/dL 8.5 - 10. 1 mg/dL [facility] Chloride [Moles/Vol] 95 mmol/L Low 98 - 10 7 mmol/L [facility] CO2 [Moles/Vol] 25.9 mmol/L 21.0 - 32.0 mmol/L [facility] Creatinine [Mass/Vol] 0.83 mg/dL 0.55 - 1.02 mg/dL [facility] GFR/1.73 sq M.predicted CKD-EPI (S/P/Bld) [Vol rate/Area] >60 60 - PINF [facility] Glucose [Mass/Vol] 72 mg/dL Low 74 - 106 mg/dL [facility] Interpretation and review of laboratory results Abnormal [facility] Potassium [Moles/Vol] 4.3 mmol/L 3.5 - 5.1 mmol/L [facility] Sodium [Moles/Vol] 129 mmol/L Low 136 - 145 mmol/L [facility] TBH EGFR-NON AF MALAYSIAN >60 60 - PINF [facility] Urea nitrogen [Mass/Vol] 21.0 mg/dL High 7.0 - 18.0 mg/dL [facility] Urea nitrogen/Creatinine [Mass ratio] 25.3 mg/mg [facility] 36on 11-03-2023 36 Patient returned my call this morning and was made aware of medication changes per Dr. Mcguire. She will have labs 1 week later. RX and lab order sent. [facility] 11-02-2023 36 LM on patient's jennifer segundo number for her to return my call. [facility] 11-01-2023 36 Patient called to jessica garcia you aware that she's not tolerating the addition of chlorthalidone. She's been nauseous since she started it. She did have labs recently. Did you want to make any changes? Please advise. Thanks. [facility] Office Visiton 10-18-2023 Follow-up visit [id number] Lorraine Finch 1940 F Date Provider Department Center 10/18/2023 Demarco-DAPHNE MCGUIRE CARD [facility] Family History Problem Relation Age of Onset Valvular heart disease Mother Heart attack Father Heart attack Brother Coronary artery disease Brother Family Status - Relation Status Age at Mother Father Brother Level of Service:95960 [place] OFFICE/OUTPATIENT ESTABLISHED MOD MDM 30 MIN Normal [facility] Office Visiton 09-30-2023 Follow-up visit [id number] Lorraine Finch 1940 F Date Provider Department Center 09/30/2023 271-AMANDA, MESFINAB CARD [facility] Family History Problem Relation Age of Onset Valvular heart disease Mother Heart attack Father Heart attack Brother Coronary artery disease Brother Family Status - Relation Status Age at Mother Father Brother Level of Service:59499 [place] OFFICE/OUTPATIENT ESTABLISHED LOW MDM 20 MIN Normal [facility] Alanine aminotransferase [En zymatic activity/volume] in Serum or PlasmaOrdered By: Rakan Del Toro on 09-23-2023 ALT [Catalytic activity/Vol] 14 U/L Normal 7-52 [facility] Comment on above: Performed By: #### C BC, CMP, ESR #### [facility] [address] [place] [address] [place] Albumin [Mass/volume] in Ser um or Plasma by Bromocresol green (BCG) dye binding methoOrdered By: Rakan Del Toro on 09-23-2023 Albumin BCG dye [Mass/Vol] 3.8 g/dL 3.5-5.7 [facility] Alkaline phosphatase [Enzyma tic activity/volume] in Serum or PlasmaOrdered By: Rakan Del Toro on 09-23-2023 ALP [Catalytic activity/Vol] 63 U/L Normal 34-104 [facility] Comment on above: Result Comment: PERF ORMED BY: [place] [address] PATHOLOGIST WEB DESIGNER RENE BOWSER M.D. Performed By: #### C BC, CMP, ESR #### [facility] [address] [place] [id number] [place] Aspartate aminotransferase [ Enzymatic activity/volume] in Serum or PlasmaOrdered By: Rakan Del Toro on 09-23-2023 AST [Catalytic activity/Vol] 22 U/L Normal 13-39 [facility] Comment on above: Performed By: #### C BC, CMP, ESR #### [address] Automated basophil %Ordered By: Rakan Del Toro on 09-23-2023 Basophils/100 WBC (Bld) 0.8 % Normal . [facility] Comment on above: Performed By: #### C BC, CMP, ESR #### [address] Automated basophil countOrde red By: Rakan Del Toro on 09-23-2023 Basophils (Bld) [#/Vol] 0.1 10*3/uL Normal 0.0-0.2 [facility] Comment on above: Performed By: #### C BC, CMP, ESR #### [address] Automated blood monocyte cou ntOrdered By: Rakan Coxrow on 09-23-2023 Monocytes (Bld) [#/Vol] 0.9 10*3/uL High 0.0-0.8 [facility] Comment on above: Performed By: #### C BC, CMP, ESR #### [address] Automated eosinophil %Ordere d By: Rakan Coxrow on 09-23-2023 Eosinophils/100 WBC (Bld) 2.7 % Normal . [facility] Comment on above: Performed By: #### C BC, CMP, ESR #### [address] Automated eosinophil countOr dered By: Rakan Coxrow on 09-23-2023 Eosinophils (Bld) [#/Vol] 0.2 10*3/uL Normal 0.0-0.45 [facility] Comment on above: Performed By: #### C BC, CMP, ESR #### [address] Automated monocyte %Ordered By: Rakan Coxrow on 09-23-2023 Monocytes/100 WBC (Bld) 11.3 % Normal . [facility] Comment on above: Performed By: #### C BC, CMP, ESR #### [address] Automated neutrophil %Ordere d By: Rakan Del Toro on 09-23-2023 Neutrophils/100 WBC (Bld) 67.2 % Normal . [facility] Comment on above: Performed By: #### C BC, CMP, ESR #### [facility] [address] Bilirubin.total [Mass/volume ] in Serum or PlasmaOrdered By: Rakan Coxrow on 09-23-2023 Bilirubin [Mass/Vol] 0.4 mg/dL Normal 0.3-1.0 [facility] Comment on above: Performed By: #### C BC, CMP, ESR #### [facility] [address] Calcium [Mass/volume] in Ser um or PlasmaOrdered By: Rakan Coxrow on 09-23-2023 Calcium [Mass/Vol] 9.3 mg/dL Normal 8.6-10.3 [facility] Comment on above: Performed By: #### C BC, CMP, ESR #### [facility] [address] Carbon dioxide, total [Moles /volume] in Serum or PlasmaOrdered By: Rakan Coxrow on 09-23-2023 CO2 [Moles/Vol] 24.9 mmol/L Normal 21.0-31.0 [facility] Comment on above: Performed By: #### C BC, CMP, ESR #### [facility] [address] [place] [address] [place] Chloride [Moles/volume] in S sarwat or PlasmaOrdered By: Rakan Coxrow on 09-23-2023 Chloride [Moles/Vol] 96 mmol/L Low 98-107 [facility] Comment on above: Performed By: #### C BC, CMP, ESR #### [facility] [address] Complete Blood Count Auto Di ffon 09-23-2023 Mean Corpuscular HGB Conc 33.9 g/dL Normal 32.0-35.0 The Count Includes [facility] Comment on above: Performed By: #### C BC, CMP, ESR #### [address] NRBC% 0.1 /100{WBC} Normal 0-0.5 The Count Includes [facility] Comment on above: Performed By: #### C BC, CMP, ESR #### [address] Comprehensive Metabolic Pane radha 09-23-2023 Albumin [Mass/Vol] 3.8 g/dL Normal 3.5-5.7 The Count Includes [facility] Comment on above: Performed By: #### C BC, CMP, ESR #### [place] [address] [place] GFR/1.73 sq M.predicted MDRD (S/P/Bld) [Vol rate/Area] mL/min/{1.73_m2} Normal The Count Includes [facility] Comment on above: Performed By: #### C BC, CMP, ESR #### [address] Creatinine [Mass/volume] in Serum or PlasmaOrdered By: Rakan Del Toro on 09-23-2023 Creatinine [Mass/Vol] 0.84 mg/dL Normal 0.60-1.20 [facility] Comment on above: Performed By: #### C BC, CMP, ESR #### [address] Erythrocyte Sedimentation Ra moose 09-23-2023 ESR (Bld) [Velocity] 50 mm/h High 0-29 The Count Includes [facility] Comment on above: Result Comment: PERF ORMED BY: [place] [address] PATHOLOGIST WEB DESIGNER RENE BOWSER M.D. Performed By: #### C BC, CMP, ESR #### [address] Erythrocyte distribution wid th [Ratio] by Automated countOrdered By: Rakan Del Toro on 09-23-2023 Erythrocyte distribution width (RBC) [Ratio] 14.6 % Normal 11.9-15.3 [facility] Comment on above: Performed By: #### C BC, CMP, ESR #### [facility] [address] Erythrocyte sedimentation ra te by Photometric methodOrdered By: Rakan Del Toro on 09-23-2023 ESR Photometric method (Bld) [Velocity] 50 mm/hr High 0-29 [facility] Erythrocytes [#/volume] in B lood by Automated countOrdered By: Rakan Del Toro on 09-23-2023 RBC (Bld) [#/Vol] 4.53 10*6/uL Normal 3.60-5.00 [facility] Comment on above: Performed By: #### C LONG, CMP, ESR #### [facility] [address] Glucose [Mass/volume] in Ser um or PlasmaOrdered By: Rakan Del Toro on 09-23-2023 Glucose [Mass/Vol] 106 mg/dL High 70-100 [facility] Comment on above: ADA recommended refe rence rangeRandom Glucose Reference Range is dependent on time and content of last meal. Glucose of more than 200 mg/dL in a nonstressed, ambulatory subject supports the diagnosis of Diabetes Mellitus. Result Comment: [place] Glucose Reference Range is dependent on time and content of last meal. Glucose of more than 200 mg/dL in a nonstressed, ambulatory subject supports the diagnosis of Diabetes Mellitus. ADA recommended reference range Performed By: #### C ANALILIA ALVES, ESR #### [facility] [address] [place] [address] [place] Hematocrit [Volume Fraction] of Blood by Automated countOrdered By: Rakan Del Toro on 09-23-2023 Hematocrit (Bld) [Volume fraction] 38.8 % Normal 34.0-46.4 [facility] Comment on above: Performed By: #### C LONG CMP, ESR #### [address] Hemoglobin [Mass/volume] in BloodOrdered By: Rakan Del Toro on 09-23-2023 Hemoglobin (Bld) [Mass/Vol] 13.2 g/dL Normal 11.8-15.4 [facility] Comment on above: Performed By: #### C ANALILIA ALVES, ESR #### [address] Leukocytes [#/volume] correc abena for nucleated erythrocytes in Blood by Automated counOrdered By: Rakan Coxrow on 09-23-2023 WBC corrected for nucl RBC Auto (Bld) [#/Vol] 8.2 10*3/uL 3.8-11.6 [facility] Leukocytes [#/volume] in Blo od by Automated countOrdered By: Rakan Coxrow on 09-23-2023 WBC (Bld) [#/Vol] 8.2 10*3/uL Normal 3.8-11.6 [facility] Comment on above: Performed By: #### C BC, CMP, ESR #### [address] Lymphocytes [#/volume] in Bl ood by Automated countOrdered By: Rakan Renetta on 09-23-2023 Lymphocytes (Bld) [#/Vol] 1.5 10*3/uL Normal 1.00-4.8 [facility] Comment on above: Performed By: #### C BC, CMP, ESR #### [address] Lymphocytes/100 leukocytes i n Blood by Automated countOrdered By: Rakan Renetta on 09-23-2023 Lymphocytes/100 WBC (Bld) 18.0 % Normal . [facility] Comment on above: Performed By: #### C BC, CMP, ESR #### [address] MCH [Entitic mass] by Automa abena countOrdered By: Rakan Renetta on 09-23-2023 MCH (RBC) [Entitic mass] 29.1 pg Normal 24.7-34.3 [facility] Comment on above: Performed By: #### C BC, CMP, ESR #### [address] MCHC Auto (RBC) [Mass/Vol]Or dered By: Rakan Del Toro on 09-23-2023 MCHC (RBC) [Mass/Vol] 33.9 g/dL 32.0-35.0 [facility] MCV [Entitic volume] by Auto mated countOrdered By: Rakan Coxrow on 09-23-2023 MCV (RBC) [Entitic vol] 85.7 fL Normal 80-100 [facility] Comment on above: Performed By: #### C BC, CMP, ESR #### [address] Neutrophils [#/volume] in Bl ood by Automated countOrdered By: Rakan Renetta on 09-23-2023 Neutrophils (Bld) [#/Vol] 5.5 10*3/uL Normal 1.8-7.7 [facility] Comment on above: Performed By: #### C BC, CMP, ESR #### [address] No Panel InformationOrdered By: Rakan Del Toro on 09-23-2023 Estimated GFR (CKD-EPI) > 60.0 mL/Min [facility] Creatinine Clearance (Chem N/A [facility] Nucleated erythrocytes [Pres ence] in Blood by Automated countOrdered By: Rakan Renetta on 09-23-2023 Nucleated RBC Auto Ql (Bld) 0.1 /100{WBC} 0-0.5 [facility] Platelet mean volume [Entiti c volume] in Blood by Automated countOrdered By: Rakan Renetta on 09-23-2023 Platelet mean volume (Bld) [Entitic vol] 9.3 fL Normal 6.3-10.7 [facility] Comment on above: Performed By: #### C BC, CMP, ESR #### [address] Platelets [#/volume] in Bloo d by Automated countOrdered By: Rakananahi Del Toro on 09-23-2023 Platelets (Bld) [#/Vol] 239 10*3/uL Normal 150-450 [facility] Comment on above: Performed By: #### C BC, CMP, ESR #### [address] Potassium [Moles/volume] in Serum or PlasmaOrdered By: Rakan Del Toro on 09-23-2023 Potassium [Moles/Vol] 4.3 mmol/L Normal 3.5-5.1 [facility] Comment on above: Performed By: #### C BC CMP, ESR #### [address] Protein [Mass/volume] in Ser um or PlasmaOrdered By: Rakan Del Toro on 09-23-2023 Protein [Mass/Vol] 7.3 g/dL Normal 6.4-8.9 [facility] Comment on above: Performed By: #### C LONG, CMP, ESR #### [address] Serum globulin measurement b y calculation (mass/volume)Ordered By: Rakan Del Toro on 09-23-2023 Globulin (S) [Mass/Vol] 3.5 g/dL [facility] Comment on above: Performed By: #### C LONG CMP, ESR #### [address] Serum or plasma albumin/glob ulin mass ratioOrdered By: Rakan Del Toro on 09-23-2023 Albumin/Globulin [Mass ratio] 1.1 {ratio} [facility] Comment on above: Performed By: #### C BC, CMP, ESR #### [address] Serum or plasma anion gap de terminationOrdered By: Rakan Del Toro on 09-23-2023 Anion gap [Moles/Vol] 11.4 mmol/L Normal 6.0-15.0 [facility] Comment on above: Performed By: #### C BC, CMP, ESR #### [place] [address] [place] Sodium [Moles/volume] in Ser um or PlasmaOrdered By: Rakan Del Toro on 09-23-2023 Sodium [Moles/Vol] 128 mmol/L Low 136-145 [facility] Comment on above: Performed By: #### C BC, CMP, ESR #### [address] [place] [address] [facility] Urea nitrogen [Mass/volume] in Serum or PlasmaOrdered By: Rakan Del Toro on 09-23-2023 Urea nitrogen [Mass/Vol] 19 mg/dL Normal 7-25 [facility] Comment on above: Performed By: #### C BC, CMP, ESR #### [facility] [address] [place] [address] [facility] Office Visiton 07-19-2023 Follow-up visit [id number] Lorraine Finchu 1940 F Date Provider Department Center 07/19/2023 271-[place], EHAB CARD [facility] Family History Problem Relation Age of Onset Valvular heart disease Mother Heart attack Father Heart attack Brother Coronary artery disease Brother Family Status - Relation Status Age at Mother Father Brother Level of Service:19957 [place] OFFICE/OUTPATIENT ESTABLISHED MOD MDM 30 MIN Normal [facility] Alanine aminotransferase [En zymatic activity/volume] in Serum or PlasmaOrdered By: Brianda Harris on 06-03-2023 ALT [Catalytic activity/Vol] 16 U/L Normal 7-52 [facility] Comment on above: Performed By: #### C BC, CMP, ESR #### [facility] [address] [place] [id number] [facility] Albumin [Mass/volume] in Ser um or Plasma by Bromocresol green (BCG) dye binding methoOrdered By: Brianda Harris on 06-03-2023 Albumin BCG dye [Mass/Vol] 4.1 g/dL 3.5-5.7 [facility] Alkaline phosphatase [Enzyma tic activity/volume] in Serum or PlasmaOrdered By: Brianda Harris on 06-03-2023 ALP [Catalytic activity/Vol] 69 U/L Normal 34-104 [facility] Comment on above: Result Comment: PERF ORMED BY: [place] [address] PATHOLOGIST WEB DESIGNER RENE BOWSER M.D. Performed By: #### C BC, CMP, ESR #### [facility] [address] [place] [id number] [facility] Aspartate aminotransferase [ Enzymatic activity/volume] in Serum or PlasmaOrdered By: Brianda Harris on 06-03-2023 AST [Catalytic activity/Vol] 23 U/L Normal 13-39 [facility] Comment on above: Performed By: #### C BC, CMP, ESR #### [address] Automated basophil %Ordered By: Brianda Harris on 06-03-2023 Basophils/100 WBC (Bld) 0.9 % Normal . [facility] Comment on above: Performed By: #### C BC, CMP, ESR #### [address] Automated basophil countOrde red By: Brianda Harris on 06-03-2023 Basophils (Bld) [#/Vol] 0.1 10*3/uL Normal 0.0-0.2 [facility] Comment on above: Performed By: #### C BC, CMP, ESR #### [address] Automated blood monocyte cou ntOrdered By: Brianda Harris on 06-03-2023 Monocytes (Bld) [#/Vol] 0.9 10*3/uL High 0.0-0.8 [facility] Comment on above: Performed By: #### C BC, CMP, ESR #### [address] Automated eosinophil %Ordere d By: Brianda Harris on 06-03-2023 Eosinophils/100 WBC (Bld) 2.4 % Normal . [facility] Comment on above: Performed By: #### C BC, CMP, ESR #### [address] Automated eosinophil countOr dered By: Brianda Harris on 06-03-2023 Eosinophils (Bld) [#/Vol] 0.2 10*3/uL Normal 0.0-0.45 [facility] Comment on above: Performed By: #### C BC, CMP, ESR #### [address] [place] [address] [place] Automated monocyte %Ordered By: Brianda Harris on 06-03-2023 Monocytes/100 WBC (Bld) 11.1 % Normal . [facility] Comment on above: Performed By: #### C BC, CMP, ESR #### [facility] [address] Automated neutrophil %Ordere d By: Brianda Harris on 06-03-2023 Neutrophils/100 WBC (Bld) 66.3 % Normal . [facility] Comment on above: Performed By: #### C BC, CMP, ESR #### [facility] [address] Bilirubin.total [Mass/volume ] in Serum or PlasmaOrdered By: Brianda Harris on 06-03-2023 Bilirubin [Mass/Vol] 0.5 mg/dL Normal 0.3-1.0 [facility] Comment on above: Performed By: #### C BC, CMP, ESR #### [place] [address] [place] Calcium [Mass/volume] in Ser um or PlasmaOrdered By: Brianda Harris on 06-03-2023 Calcium [Mass/Vol] 9.4 mg/dL Normal 8.6-10.3 [facility] Comment on above: Performed By: #### C BC, CMP, ESR #### [facility] [address] [place] [address] [place] Carbon dioxide, total [Moles /volume] in Serum or PlasmaOrdered By: Brianda Harris on 06-03-2023 CO2 [Moles/Vol] 25.4 mmol/L Normal 21.0-31.0 [facility] Comment on above: Performed By: #### C BC, CMP, ESR #### [place] [address] [place] Chloride [Moles/volume] in S sarwat or PlasmaOrdered By: Brianda Hugheser on 06-03-2023 Chloride [Moles/Vol] 102 mmol/L Normal 98-107 [facility] Comment on above: Performed By: #### C BC, CMP, ESR #### [address] Complete Blood Count Auto Di ffon 06-03-2023 Mean Corpuscular HGB Conc 32.9 g/dL Normal 32.0-35.0 The Count Includes [facility] Comment on above: Performed By: #### C BC, CMP, ESR #### [address] NRBC% 0.1 /100{WBC} Normal 0-0.5 The Count Includes [facility] Comment on above: Performed By: #### C BC, CMP, ESR #### [address] Comprehensive Metabolic Pane radha 06-03-2023 Albumin [Mass/Vol] 4.1 g/dL Normal 3.5-5.7 The Count Includes [facility] Comment on above: Performed By: #### C BC, CMP, ESR #### [address] GFR/1.73 sq M.predicted MDRD (S/P/Bld) [Vol rate/Area] mL/min/{1.73_m2} Normal The Count Includes [facility] Comment on above: Performed By: #### C BC, CMP, ESR #### [address] Creatinine [Mass/volume] in Serum or PlasmaOrdered By: Brianda Harris on 06-03-2023 Creatinine [Mass/Vol] 0.89 mg/dL Normal 0.60-1.20 [facility] Comment on above: Performed By: #### C BC, CMP, ESR #### [address] Erythrocyte Sedimentation Ra moose 06-03-2023 ESR (Bld) [Velocity] 42 mm/h High 0-29 The Count Includes [facility] Comment on above: Result Comment: PERF ORMED BY: [place] [address] PATHOLOGIST WEB DESIGNER RENE BOWSER M.D. Performed By: #### C ANALILIA ALVES, ESR #### [facility] [address] Erythrocyte distribution wid th [Ratio] by Automated countOrdered By: Brianda Harris on 06-03-2023 Erythrocyte distribution width (RBC) [Ratio] 14.1 % Normal 11.9-15.3 [facility] Comment on above: Performed By: #### C ANALILIA ALVES, ESR #### [facility] [address] Erythrocyte sedimentation ra te by Photometric methodOrdered By: Brianda Harris on 06-03-2023 ESR Photometric method (Bld) [Velocity] 42 mm/hr 0-29 [facility] Erythrocytes [#/volume] in B lood by Automated countOrdered By: Brianda Harris on 06-03-2023 RBC (Bld) [#/Vol] 4.80 10*6/uL Normal 3.60-5.00 [facility] Comment on above: Performed By: #### C ANALILIA ALVES, ESR #### [facility] [address] Glucose [Mass/volume] in Ser um or PlasmaOrdered By: Brianda Harris on 06-03-2023 Glucose [Mass/Vol] 91 mg/dL Normal 70-100 [facility] Comment on above: ADA recommended refe rence rangeRandom Glucose Reference Range is dependent on time and content of last meal. Glucose of more than 200 mg/dL in a nonstressed, ambulatory subject supports the diagnosis of Diabetes Mellitus. Result Comment: [place] Glucose Reference Range is dependent on time and content of last meal. Glucose of more than 200 mg/dL in a nonstressed, ambulatory subject supports the diagnosis of Diabetes Mellitus. ADA recommended reference range Performed By: #### C ANALILIA ALVES, ESR #### [facility] [address] Hematocrit [Volume Fraction] of Blood by Automated countOrdered By: Brianda Harris on 06-03-2023 Hematocrit (Bld) [Volume fraction] 41.8 % Normal 34.0-46.4 [facility] Comment on above: Performed By: #### C BC, CMP, ESR #### [facility] [address] Hemoglobin [Mass/volume] in BloodOrdered By: Brianda Harris on 06-03-2023 Hemoglobin (Bld) [Mass/Vol] 13.8 g/dL Normal 11.8-15.4 [facility] Comment on above: Performed By: #### C BC, CMP, ESR #### [facility] [address] Leukocytes [#/volume] correc abena for nucleated erythrocytes in Blood by Automated counOrdered By: Brianda Harris on 06-03-2023 WBC corrected for nucl RBC Auto (Bld) [#/Vol] 8.3 10*3/uL 3.8-11.6 [facility] Leukocytes [#/volume] in Blo od by Automated countOrdered By: Brianda Harris on 06-03-2023 WBC (Bld) [#/Vol] 8.3 10*3/uL Normal 3.8-11.6 [facility] Comment on above: Performed By: #### C BC, CMP, ESR #### [address] Lymphocytes [#/volume] in Bl ood by Automated countOrdered By: Brianda Harris on 06-03-2023 Lymphocytes (Bld) [#/Vol] 1.6 10*3/uL Normal 1.00-4.8 [facility] Comment on above: Performed By: #### C BC, CMP, ESR #### [facility] [facility] [address] [place] [address] [place] Lymphocytes/100 leukocytes i n Blood by Automated countOrdered By: Brianda Harris on 06-03-2023 Lymphocytes/100 WBC (Bld) 19.3 % Normal . [facility] Comment on above: Performed By: #### C BC, CMP, ESR #### [place] [address] [place] MCH [Entitic mass] by Automa abena countOrdered By: Brianda Harris on 06-03-2023 MCH (RBC) [Entitic mass] 28.7 pg Normal 24.7-34.3 [facility] Comment on above: Performed By: #### C BC, CMP, ESR #### [facility] [address] [place] [address] MCHC Auto (RBC) [Mass/Vol]Or dered By: Brianda Harris on 06-03-2023 MCHC (RBC) [Mass/Vol] 32.9 g/dL 32.0-35.0 [facility] MCV [Entitic volume] by Auto mated countOrdered By: Brianda Harris on 06-03-2023 MCV (RBC) [Entitic vol] 87.0 fL Normal 80-100 [facility] Comment on above: Performed By: #### C BC, CMP, ESR #### [facility] [address] [place] [address] Neutrophils [#/volume] in Bl ood by Automated countOrdered By: Brianda Harris on 06-03-2023 Neutrophils (Bld) [#/Vol] 5.5 10*3/uL Normal 1.8-7.7 [facility] Comment on above: Performed By: #### C BC, CMP, ESR #### [facility] [address] [place] [address] No Panel InformationOrdered By: Brianda Harris on 06-03-2023 Estimated GFR (CKD-EPI) > 60.0 mL/Min [facility] Creatinine Clearance (Chem N/A [facility] Nucleated erythrocytes [Pres ence] in Blood by Automated countOrdered By: Brianda Harris on 06-03-2023 Nucleated RBC Auto Ql (Bld) 0.1 /100{WBC} 0-0.5 [facility] Platelet mean volume [Entiti c volume] in Blood by Automated countOrdered By: Brianda Harris on 06-03-2023 Platelet mean volume (Bld) [Entitic vol] 9.3 fL Normal 6.3-10.7 [facility] Comment on above: Performed By: #### C BC, CMP, ESR #### [facility] [address] Platelets [#/volume] in Bloo d by Automated countOrdered By: Brianda Harris on 06-03-2023 Platelets (Bld) [#/Vol] 251 10*3/uL Normal 150-450 [facility] Comment on above: Performed By: #### C BC, CMP, ESR #### [address] Potassium [Moles/volume] in Serum or PlasmaOrdered By: Brianda Harris on 06-03-2023 Potassium [Moles/Vol] 3.8 mmol/L Normal 3.5-5.1 [facility] Comment on above: Performed By: #### C BC, CMP, ESR #### [address] Protein [Mass/volume] in Ser um or PlasmaOrdered By: Brianda Harris on 06-03-2023 Protein [Mass/Vol] 7.1 g/dL Normal 6.4-8.9 [facility] Comment on above: Performed By: #### C BC, CMP, ESR #### [address] Serum globulin measurement b y calculation (mass/volume)Ordered By: Brianda Harris on 06-03-2023 Globulin (S) [Mass/Vol] 3.0 g/dL [facility] Comment on above: Performed By: #### C BC, CMP, ESR #### [address] Serum or plasma albumin/glob ulin mass ratioOrdered By: Brianda Harris on 06-03-2023 Albumin/Globulin [Mass ratio] 1.4 {ratio} [facility] Comment on above: Performed By: #### C BC, CMP, ESR #### [address] Serum or plasma anion gap de terminationOrdered By: Brianda Harris on 06-03-2023 Anion gap [Moles/Vol] 11.4 mmol/L Normal 6.0-15.0 [facility] Comment on above: Performed By: #### C LONG CMP, ESR #### [facility] [address] Sodium [Moles/volume] in Ser um or PlasmaOrdered By: Brianda Harrsi on 06-03-2023 Sodium [Moles/Vol] 135 mmol/L Low 136-145 [facility] Comment on above: Performed By: #### C LONG, CMP, ESR #### [facility] [address] Urea nitrogen [Mass/volume] in Serum or PlasmaOrdered By: Brianda Harris on 06-03-2023 Urea nitrogen [Mass/Vol] 24 mg/dL Normal 7-25 [facility] Comment on above: Performed By: #### C LONG, CMP, ESR #### [facility] [address] US carotid doppler BIon 05-13 US carotid doppler BI [facility] Main [place] [address] [place] [address] Ultrasound Report Signed Patient: Cely Finch MR#: [id number] : 1940 Acct:[id number] Age/Sex: 83 / F ADM Date: 05/25/23 Loc: [facility] Room: Type: [facility] Attending Dr: Blake Zhao MD Ordering Provider: [...] Blake Zhao M.D.05/31/2023 12:47 PM Dictation Location: [place] [address] Tech: Juliana Riosce Transcribed By: TORIN 05/31/23 124 Dictated By: Blake Zhao MD 05/31/23 124 Signed By: 05/31/23 124 Normal The Count Includes [facility] Alanine aminotransferase [En zymatic activity/volume] in Serum or PlasmaOrdered By: Brianda Harris on 12-15-2022 ALT [Catalytic activity/Vol] 16 U/L 7-52 [facility] Albumin [Mass/volume] in Ser um or Plasma by Bromocresol green (BCG) dye binding methoOrdered By: Brianda Harris on 12-15-2022 Albumin BCG dye [Mass/Vol] 3.8 g/dL 3.5-5.7 [facility] Alkaline phosphatase [Enzyma tic activity/volume] in Serum or PlasmaOrdered By: Brianda Harris on 12-15-2022 ALP [Catalytic activity/Vol] 60 U/L 34-104 [facility] Aspartate aminotransferase [ Enzymatic activity/volume] in Serum or PlasmaOrdered By: Brianda Harris on 12-15-2022 AST [Catalytic activity/Vol] 20 U/L 13-39 [facility] Basophils Auto (Bld) [#/Vol] Ordered By: Brianda Harris on 12-15-2022 Basophils (Bld) [#/Vol] 0.1 10*3/uL 0.0-0.2 [facility] Basophils/100 WBC Auto (Bld) Ordered By: Brianda Harris on 12-15-2022 Basophils/100 WBC (Bld) 0.6 % . [facility] Bilirubin.total [Mass/volume ] in Serum or PlasmaOrdered By: Brianda Harris on 12-15-2022 Bilirubin [Mass/Vol] 0.3 mg/dL 0.3-1.0 [facility] Calcium [Mass/volume] in Ser um or PlasmaOrdered By: Brainda Harris on 12-15-2022 Calcium [Mass/Vol] 9.3 mg/dL 8.6-10.3 [facility] Carbon dioxide, total [Moles /volume] in Serum or PlasmaOrdered By: Brianda Harris on 12-15-2022 CO2 [Moles/Vol] 26.6 mmol/L 21.0-31.0 [facility] Chloride [Moles/volume] in S sarwat or PlasmaOrdered By: Brianda Harris on 12-15-2022 Chloride [Moles/Vol] 102 mmol/L 98-107 [facility] Creatinine [Mass/volume] in Serum or PlasmaOrdered By: Brianda Harris on 12-15-2022 Creatinine [Mass/Vol] 0.87 mg/dL 0.60-1.20 [facility] Eosinophils Auto (Bld) [#/Vo l]Ordered By: Brianda Harris on 12-15-2022 Eosinophils (Bld) [#/Vol] 0.2 10*3/uL 0.0-0.45 [facility] Eosinophils/100 WBC Auto (Bl d)Ordered By: Brianda Harris on 12-15-2022 Eosinophils/100 WBC (Bld) 1.5 % . [facility] Erythrocyte distribution wid th Auto (RBC) [Ratio]Ordered By: Brianda Harris on 12-15-2022 Erythrocyte distribution width (RBC) [Ratio] 14.7 % 11.9-15.3 [facility] Erythrocyte sedimentation ra te by Photometric methodOrdered By: Brianda Harris on 12-15-2022 ESR Photometric method (Bld) [Velocity] 44 mm/hr 0-29 [facility] Globulin Calc (S) [Mass/Vol] Ordered By: Brianda Harris on 12-15-2022 Globulin (S) [Mass/Vol] 3.0 g/dL [facility] Glucose [Mass/volume] in Ser um or PlasmaOrdered By: Brianda Harris on 12-15-2022 Glucose [Mass/Vol] 69 mg/dL 70-100 [facility] Comment on above: ADA recommended refe rence rangeRandom Glucose Reference Range is dependent on time and content of last meal. Glucose of more than 200 mg/dL in a nonstressed, ambulatory subject supports the diagnosis of Diabetes Mellitus. Hematocrit Auto (Bld) [Volum e fraction]Ordered By: Brianda Harris on 12-15-2022 Hematocrit (Bld) [Volume fraction] 43.3 % 34.0-46.4 [facility] Hemoglobin [Mass/volume] in BloodOrdered By: Brianda Harris on 12-15-2022 Hemoglobin (Bld) [Mass/Vol] 14.5 g/dL 11.8-15.4 [facility] Leukocytes [#/volume] correc abena for nucleated erythrocytes in Blood by Automated counOrdered By: Brianda Harris on 12-15-2022 WBC corrected for nucl RBC Auto (Bld) [#/Vol] 11.5 10*3/uL 3.8-11.6 [facility] Lymphocytes Auto (Bld) [#/Vo l]Ordered By: Brianda Harris on 12-15-2022 Lymphocytes (Bld) [#/Vol] 2.9 10*3/uL 1.00-4.8 [facility] Lymphocytes/100 WBC Auto (Bl d)Ordered By: Brianda Harris on 12-15-2022 Lymphocytes/100 WBC (Bld) 25.0 % . [facility] MCH Auto (RBC) [Entitic mass ]Ordered By: Brianda Harris on 12-15-2022 MCH (RBC) [Entitic mass] 29.0 pg 24.7-34.3 [facility] MCHC Auto (RBC) [Mass/Vol]Or dered By: Brianda Harris on 12-15-2022 MCHC (RBC) [Mass/Vol] 33.5 g/dL 32.0-35.0 [facility] MCV Auto (RBC) [Entitic vol] Ordered By: Brianda Harris on 12-15-2022 MCV (RBC) [Entitic vol] 86.4 fL 80-100 [facility] Monocytes Auto (Bld) [#/Vol] Ordered By: Brianda Harris on 12-15-2022 Monocytes (Bld) [#/Vol] 1.2 10*3/uL 0.0-0.8 [facility] Monocytes/100 WBC Auto (Bld) Ordered By: Brianda Harris on 12-15-2022 Monocytes/100 WBC (Bld) 10.6 % . [facility] Neutrophils Auto (Bld) [#/Vo l]Ordered By: Brianda Harris on 12-15-2022 Neutrophils (Bld) [#/Vol] 7.1 10*3/uL 1.8-7.7 [facility] Neutrophils/100 WBC Auto (Bl d)Ordered By: Brianda Harris on 12-15-2022 Neutrophils/100 WBC (Bld) 62.3 % . [facility] No Panel InformationOrdered By: Brianda Harris on 12-15-2022 Estimated GFR (CKD-EPI) > 60.0 mL/Min [facility] Creatinine Clearance (Chem N/A [facility] Nucleated erythrocytes [Pres ence] in Blood by Automated countOrdered By: Brianda Harris on 12-15-2022 Nucleated RBC Auto Ql (Bld) 0.1 /100{WBC} 0-0.5 [facility] Platelet mean volume Auto (B ld) [Entitic vol]Ordered By: Brianda Harris on 12-15-2022 Platelet mean volume (Bld) [Entitic vol] 9.2 fL 6.3-10.7 [facility] Platelets Auto (Bld) [#/Vol] Ordered By: Brianda Harris on 12-15-2022 Platelets (Bld) [#/Vol] 305 10*3/uL 150-450 [facility] Potassium [Moles/volume] in Serum or PlasmaOrdered By: Brianda Harris on 12-15-2022 Potassium [Moles/Vol] 3.8 mmol/L 3.5-5.1 [facility] Protein [Mass/volume] in Ser um or PlasmaOrdered By: Brianda Harris on 12-15-2022 Protein [Mass/Vol] 6.8 g/dL 6.4-8.9 [facility] RBC Auto (Bld) [#/Vol]Ordere d By: Brianda Harris on 12-15-2022 RBC (Bld) [#/Vol] 5.01 10*6/uL 3.60-5.00 [facility] Serum or plasma albumin/glob ulin mass ratioOrdered By: Brianda Harris on 12-15-2022 Albumin/Globulin [Mass ratio] 1.3 {ratio} [facility] Serum or plasma anion gap de terminationOrdered By: Brianda Harris on 12-15-2022 Anion gap [Moles/Vol] 12.2 mmol/L 6.0-15.0 [facility] Sodium [Moles/volume] in Ser um or PlasmaOrdered By: Brianda Harris on 12-15-2022 Sodium [Moles/Vol] 137 mmol/L 136-145 [facility] Urea nitrogen [Mass/volume] in Serum or PlasmaOrdered By: Brianda Harris on 12-15-2022 Urea nitrogen [Mass/Vol] 27 mg/dL 7-25 [facility] WBC Auto (Bld) [#/Vol]Ordere d By: Brianda Harris on 12-15-2022 WBC (Bld) [#/Vol] 11.5 10*3/uL 3.8-11.6 [facility] CBC AUTO DIFFon 06-26-2022 BASO # 0.1 103/ul Normal 0.0-0.1 [facility] Comment on above: Performed By: #### C MADM, BNP, CMP #### [facility] [address] [place] [address] Dr. Marco Greer Basophils/100 WBC (Bld) 0.6 % Normal 0.2-2.0 [facility] Comment on above: Performed By: #### C MADM, BNP, CMP #### [facility] [address] [place] [address] Dr. Marco Greer EO # 0.2 103/ul Normal 0.0-0.7 [facility] Comment on above: Performed By: #### C MADM, BNP, CMP #### [facility] [address] [place] [address] Dr. Marco Greer Eosinophils/100 WBC (Bld) 2.1 % Normal 0.9-7.0 [facility] Comment on above: Performed By: #### C MADM, BNP, CMP #### [facility] [address] [place] [address] Dr. Marco Greer Erythrocyte distribution width (RBC) [Ratio] 17.3 % Critically high 11.0-15.0 [facility] Comment on above: Performed By: #### C MADM, BNP, CMP #### [facility] [address] [place] [address] Dr. Marco Greer Hematocrit (Bld) [Volume fraction] 40.2 % Normal 36.0-48.0 [facility] Comment on above: Performed By: #### C MADM, BNP, CMP #### [facility] [address] [place] [address] Dr. Marco Greer Hemoglobin (Bld) [Mass/Vol] 13.0 g/dL Normal 12.0-16.0 [facility] Comment on above: Performed By: #### C MADM, BNP, CMP #### [facility] [address] [place] [address] Dr. aMrco Greer IG # 0.06 10e3/ul Critically high 0.00-0.03 [facility] Comment on above: Performed By: #### C MADM, BNP, CMP #### [facility] [address] [place] [address] Dr. Marco Greer IG % 0.6 % Critically high 0.0-0.5 [facility] Comment on above: Performed By: #### C MADM, BNP, CMP #### [facility] [address] [place] [address] Dr. Maroc Greer LYMPH # 2.1 103/ul Normal 1.2-3.8 [facility] Comment on above: Performed By: #### C MADM, BNP, CMP #### [facility] [address] [place] [address] Dr. Marco Greer Lymphocytes/100 WBC (Bld) 19.6 % Critically low 20.5-60.0 [facility] Comment on above: Performed By: #### C MADM, BNP, CMP #### [facility] [address] [place] [address] Dr. Marco Greer MANUAL DIFF REQ NO Normal [facility] Comment on above: Performed By: #### C MADM, BNP, CMP #### [facility] [address] [place] [address] Dr. Marco Greer MCH (RBC) [Entitic mass] 27.3 pg Normal 26.7-34.0 [facility] Comment on above: Performed By: #### C MADM, BNP, CMP #### [facility] [address] [place] [address] Dr. Marco Greer MCHC (RBC) [Mass/Vol] 32.3 g/dL Normal 29.9-35.2 [facility] Comment on above: Performed By: #### C MADM, BNP, CMP #### [facility] [address] [place] [address] Dr. Marco Greer MCV (RBC) [Entitic vol] 84.5 fL Normal 81.0-99.0 [facility] Comment on above: Performed By: #### C MADM, BNP, CMP #### [facility] [address] [place] [address] Dr. Marco Greer MONO # 0.9 103/ul Critically high 0.3-0.8 [facility] Comment on above: Performed By: #### C MADM, BNP, CMP #### [facility] [address] [place] [address] Dr. Marco Greer Monocytes/100 WBC (Bld) 8.6 % Normal 1.7-12.0 [facility] Comment on above: Performed By: #### C MADM, BNP, CMP #### [facility] [address] [place] [address] Dr. Marco Greer NEUT # 7.4 103/ul Critically high 1.4-6.5 [facility] Comment on above: Performed By: #### C MADM, BNP, CMP #### [facility] [address] [place] [address] Dr. Marco Greer Neutrophils/100 WBC (Bld) 68.5 % Normal 43.0-75.0 [facility] Comment on above: Performed By: #### C MADM, BNP, CMP #### [facility] [address] [place] [address] Dr. Marco Greer Platelet mean volume (Bld) [Entitic vol] 9.6 fL Normal 9.5-13.5 [facility] Comment on above: Performed By: #### C MADM, BNP, CMP #### [facility] [address] [place] [address] [address] Marco Greer PLT 283 103/ul Normal 150-450 [facility] Comment on above: Performed By: #### C MADM, BNP, CMP #### [facility] [address] [place] [address] [address] Marco Greer RBC 4.76 106/ul Normal 4.20-5.40 [facility] Comment on above: Performed By: #### C MADM, BNP, CMP #### [facility] [address] [place] [address] Dr. Marco Greer WBC 10.7 103/ul Normal 4.0-11.0 [facility] Comment on above: Performed By: #### C MADM, BNP, CMP #### [facility] [address] [place] [address] Dr. Marco Greer FREE T3on 06-26-2022 FREE T3 2.47 pg/mlL Normal 2.18-3.98 [facility] Comment on above: Performed By: #### C MADM, BNP, CMP #### [facility] [address] [place] [address] Dr. Marco Greer FREE T4on 06-26-2022 Free T4 [Mass/Vol] 1.39 ng/dL Normal 0.76-1.46 [facility] Comment on above: Performed By: #### C MP #### [facility] [address] [place] [address] Dr. Marco Greer LIPID PROFILEon 06-26-2022 CHOL-HDL RATIO NORM SEE BELOW Normal The [facility] Comment on above: Result Comment: 3.3 - 4.4 LOW RISK 4.4 - 7.1 AVERAGE RISK 7.1 - 11.0 MODERATE RISK >11.0 HIGH RISK Performed By: #### C MADM, BNP, CMP #### [facility] [address] [place] [address] Dr. Marco Greer Cholesterol [Mass/Vol] 234 mg/dL Critically high <=200 [facility] Comment on above: Performed By: #### C MADM, BNP, CMP #### [facility] [address] [place] [address] [address] Marco Greer Cholesterol in HDL [Mass/Vol] 63 mg/dL Critically high 40-60 [facility] Comment on above: Performed By: #### C MADM, BNP, CMP #### [facility] [address] [place] [address] [address] Marco Greer Cholesterol in LDL [Mass/Vol] 139.2 mg/dL Normal [facility] Comment on above: Performed By: #### C MADM, BNP, CMP #### [facility] [address] [place] [address] [address] Marco Greer Cholesterol.total/Chol esterol in HDL [Mass ratio] 3.7 {ratio} Normal [facility] Comment on above: Performed By: #### C MADM, BNP, CMP #### [facility] [address] [place] [address] [address] Marco Greer HDL NORMAL > or = 60 mg/dl - LO W CARDIOVASCULAR RISK <40 mg/dl - HIGH CARDIOVASCULAR RISK Normal [facility] Comment on above: Performed By: #### C MADM, BNP, CMP #### [facility] [address] [place] [address] [address] Marco Greer LDL CALC NORMAL SEE BELOW Normal [facility] Comment on above: Result Comment: <100 mg/dl OPTIMAL 100 - 129 mg/dl NEAR OR ABOVE OPTIMAL 130 - 159 mg/dl BORDERLINE HIGH 160 - 189 mg/dl HIGH >190 mg/dl VERY HIGH Performed By: #### C MADM, BNP, CMP #### [facility] [address] [place] [address] [address] Marco Greer Triglyceride [Mass/Vol] 159 mg/dL Critically high <=150 [facility] Comment on above: Performed By: #### C MADM, BNP, CMP #### [facility] [address] [address] [address] Marco Greer VLDL CALC 31.8 mg/dL Normal [facility] Comment on above: Performed By: #### C MADM, BNP, CMP #### [facility] [address] [place] [address] [address] Marco Greer LIVER PROFILEon 06-26-2022 Albumin [Mass/Vol] 3.1 g/dL Critically low 3.4-5.0 Th e [facility] Comment on above: Performed By: #### C MADM, BNP, CMP #### [facility] [address] [place] [address] [address] Marco Greer Albumin/Globulin [Mass ratio] 0.7 {ratio} Normal [facility] Comment on above: Performed By: #### C MADM, BNP, CMP #### [facility] [address] [place] [address] [address] Marco Greer ALP [Catalytic activity/Vol] 75 U/L Normal 46-116 [facility] Comment on above: Performed By: #### C MADM, BNP, CMP #### [facility] [address] [place] [address] [address] Marco Greer ALT [Catalytic activity/Vol] 28 U/L Normal 14-59 [facility] Comment on above: Performed By: #### C MADM, BNP, CMP #### [facility] [address] [address] [address] Marco Greer AST [Catalytic activity/Vol] 22 U/L Normal 15-37 [facility] Comment on above: Performed By: #### C MADM, BNP, CMP #### [facility] [address] [address] [address] Marco Greer BILI, CONJUGATED 0.1 mg/dL Normal 0.0-0.2 [facility] Comment on above: Performed By: #### C MADM, BNP, CMP #### [facility] [address] [address] [address] Marco Greer Bilirubin [Mass/Vol] 0.3 mg/dL Normal 0.2-1.0 [facility] Comment on above: Performed By: #### C MADM, BNP, CMP #### [facility] [address] [address] [address] Marco Greer Globulin (S) [Mass/Vol] 4.3 g/dL Normal [facility] Comment on above: Performed By: #### C MADM, BNP, CMP #### [facility] [address] [place] [address] Dr. Marco Greer Protein [Mass/Vol] 7.4 g/dL Normal 6.4-8.2 [facility] Comment on above: Performed By: #### C MADM, BNP, CMP #### [facility] [address] [place] [address] Dr. Marco Greer PROF CHEM 8 (BAS METB)on Anion gap [Moles/Vol] 14.3 mmol/L Normal [facility] Comment on above: Performed By: #### F T3, TSH, BMP, LIVER, LIPID #### [facility] [address] [place] [address] Dr. Marco Greer Calcium [Mass/Vol] 9.2 mg/dL Normal 8.5-10.1 [facility] Comment on above: Performed By: #### F T3, TSH, BMP, LIVER, LIPID #### [facility] [address] [place] [address] Dr. Marco Greer Chloride [Moles/Vol] 100 mmol/L Normal 98-107 [facility] Comment on above: Performed By: #### F T3, TSH, BMP, LIVER, LIPID #### [facility] [address] [place] [address] Dr. Marco Greer CO2 [Moles/Vol] 27.2 mmol/L Normal 21.0-32.0 [facility] Comment on above: Performed By: #### F T3, TSH, BMP, LIVER, LIPID #### [facility] [address] [place] [address] Dr. Marco Greer Creatinine [Mass/Vol] 0.94 mg/dL Normal 0.55-1.02 The [facility] Comment on above: Performed By: #### F T3, TSH, BMP, LIVER, LIPID #### [facility] [address] [place] [address] Dr. Marco Greer EGFR-AF MALAYSIAN >60 Normal >=60 [facility] Comment on above: Performed By: #### F T3, TSH, BMP, LIVER, LIPID #### [facility] [address] [address] [address] Marco Greer EGFR-NON AF MALAYSIAN 57 mL/min/1.73m2 Critically low >=60 [facility] Comment on above: Performed By: #### F T3, TSH, BMP, LIVER, LIPID #### [facility] [address] [address] [address] Marco Greer Glucose [Mass/Vol] 84 mg/dL Normal 74-106 [facility] Comment on above: Performed By: #### F T3, TSH, BMP, LIVER, LIPID #### [facility] [address] [address] [address] Marco Greer Potassium [Moles/Vol] 4.5 mmol/L Normal 3.5-5.1 [facility] Comment on above: Performed By: #### F T3, TSH, BMP, LIVER, LIPID #### [facility] [address] [place] [address] Dr. Marco Greer Sodium [Moles/Vol] 137 mmol/L Normal 136-145 [facility] Comment on above: Performed By: #### F T3, TSH, BMP, LIVER, LIPID #### [facility] [address] [address] [address] Marco Greer Urea nitrogen [Mass/Vol] 21.0 mg/dL Critically high 7.0-18.0 [facility] Comment on above: Performed By: #### F T3, TSH, BMP, LIVER, LIPID #### [facility] [address] [place] [address] Dr. Marco Greer Urea nitrogen/Creatinine [Mass ratio] 22.3 mg/mg Normal [facility] Comment on above: Performed By: #### F T3, TSH, BMP, LIVER, LIPID #### [facility] [address] [place] [address] Dr. Marco Greer SED RATE WELLSVILLEERGRENon 2022 SED RATE 56 mm/hr Critically high <=30 [facility] Comment on above: Performed By: #### C MP #### [facility] [address] [place] [address] Dr. Marco Greer TSHon 06-26-2022 TSH 0.286 uIU/mL Critically low 0.358-3.74 0 [facility] Comment on above: Performed By: #### C MADM, BNP, CMP #### [facility] [address] [address] [address] Marco Greer PROF CHEM 8 (BAS METB)on Anion gap [Moles/Vol] 14.2 mmol/L Normal Th [facility] Comment on above: Performed By: #### C MADM, BNP, CMP #### [facility] [address] [address] [address] Marco Greer Calcium [Mass/Vol] 9.0 mg/dL Normal 8.5-10.1 [facility] Comment on above: Performed By: #### C MADM, BNP, CMP #### [facility] [address] [place] [address] Dr. Marco Greer Chloride [Moles/Vol] 102 mmol/L Normal 98-107 [facility] Comment on above: Performed By: #### C MADM, BNP, CMP #### [facility] [address] [address] [address] Marco Greer CO2 [Moles/Vol] 27.3 mmol/L Normal 21.0-32.0 [facility] Comment on above: Performed By: #### C MADM, BNP, CMP #### [facility] [address] [address] [address] Marco Greer Creatinine [Mass/Vol] 1.18 mg/dL Critically high 0.55-1.02 [facility] Comment on above: Performed By: #### C MADM, BNP, CMP #### [facility] [address] [address] [address] Marco Greer EGFR-AF MALAYSIAN 53 mL/min/1.73m2 Critically low >=60 [facility] Comment on above: Performed By: #### C MADM, BNP, CMP #### [facility] [address] [address] [address] Marco Greer EGFR-NON AF MALAYSIAN 44 mL/min/1.73m2 Critically low >=60 [facility] Comment on above: Performed By: #### C MADM, BNP, CMP #### [facility] [address] [address] [address] Marco Greer Glucose [Mass/Vol] 115 mg/dL Critically high 74-106 [facility] Comment on above: Performed By: #### C MADM, BNP, CMP #### [facility] [address] [place] [address] Dr. Marco Greer Potassium [Moles/Vol] 3.5 mmol/L Normal 3.5-5.1 [facility] Comment on above: Performed By: #### C MADM, BNP, CMP #### [facility] [address] [place] [address] Dr. Marco Greer Sodium [Moles/Vol] 140 mmol/L Normal 136-145 [facility] Comment on above: Performed By: #### C MADM, BNP, CMP #### [facility] [address] [place] [address] Dr. Marco Greer Urea nitrogen [Mass/Vol] 31.0 mg/dL Critically high 7.0-18.0 [facility] Comment on above: Performed By: #### C MADM, BNP, CMP #### [facility] [address] [place] [address] Dr. Marco Greer Urea nitrogen/Creatinine [Mass ratio] 26.3 mg/mg Normal [facility] Comment on above: Performed By: #### C MADM, BNP, CMP #### [facility] [address] [place] [address] Dr. Marco Greer Cardiovasc Arrhythmia Result son 04-01-2022 Cardiovasc Arrhythmia Results Reason For Visit Event Monitor: Costa is only wearing monitor for 5 days CELY is here for the application of a 30 day event monitor in office., Diagnosis: lightheaded and PVC Ordering Physician: Dr. Miri Hlil MD Enrollment sent to: [employer] Monitor number [id number] applied. Procedure Date I received for dictation [...] (I49.3) Future Appointments Date/TimeProviderSpecialty Site 06/19/2022 03:00 PMFlindsey, Miri, [id number] [facility] [address] DO Signatures Electronically signed by : Radha Copeland MD; Apr 13 2022 9:10AM EST (Author) Normal [facility] Office Visit (Cardiology)on 03-27-2022 Follow-up visit Diagnoses/Problems [...] days; Status:Active - Perform Order,Retrospective Authorization; Requested for:[id number]; SocHx: Former smoker Tobacco Use Screening; Status:Complete; Done: [id number] Patient Instructions Please bring all medicines, vitamins, [...] Medication No Known Drug Allergies Recorded By: aYnira Lazaro; 02/13/2022 11:12:05 AM Social History Problems [...] Recorded: 27Mar2022 11:52AM Heart Rate60, L Radial Ahamkyof523, LUE, Sitting Muodmehek39, LUE, Sitting Height5 ft 4 in [id number] lb BMI Ollzeurmuo35.43 kg/m2 BSA Calculated1.57 Tobacco Useb) No PHQ-2 [...] office re (more content not included)... Normal [facility] Tobacco Screening.on 023 Adult depression screening assessment No [facility] 250 DO Work Phone: Fall risk assessment a) No falls within the last year [facility] [facility] DO Work Phone: Tobacco use status CPHS b) No [facility] 250 DO Work Phone: CBC AUTO DIFFon 03-11-2022 BASO # 0.1 103/ul Normal 0.0-0.1 [facility] Comment on above: Performed By: #### C MADM, BNP, CMP #### [facility] [address] [place] [address] Dr. Marco Greer Basophils/100 WBC (Bld) 0.9 % Normal 0.2-2.0 [facility] Comment on above: Performed By: #### C MADM, BNP, CMP #### [facility] [address] [place] [address] Dr. Marco Greer EO # 0.9 103/ul Critically high 0.0-0.7 [facility] Comment on above: Performed By: #### C MADM, BNP, CMP #### [facility] [address] [place] [address] Dr. Marco Greer Eosinophils/100 WBC (Bld) 9.3 % Critically high 0.9-7.0 [facility] Comment on above: Performed By: #### C MADM, BNP, CMP #### [facility] [address] [place] [address] Dr. Marco Greer Erythrocyte distribution width (RBC) [Ratio] 15.5 % Critically high 11.0-15.0 [facility] Comment on above: Performed By: #### C MADM, BNP, CMP #### [facility] [address] [place] [address] Dr. Marco Greer Hematocrit (Bld) [Volume fraction] 37.4 % Normal 36.0-48.0 [facility] Comment on above: Performed By: #### C MADM, BNP, CMP #### [facility] [address] [place] [address] Dr. aMrco Greer Hemoglobin (Bld) [Mass/Vol] 11.9 g/dL Critically low 12.0-16.0 [facility] Comment on above: Performed By: #### C MADM, BNP, CMP #### [facility] [address] [place] [address] Dr. Marco Greer IG # 0.03 10e3/ul Normal 0.00-0.03 [facility] Comment on above: Performed By: #### C MADM, BNP, CMP #### [facility] [address] [place] [address] Dr. Marco Greer IG % 0.3 % Normal 0.0-0.5 [facility] Comment on above: Performed By: #### C MADM, BNP, CMP #### [facility] [address] [address] [address] Marco Greer LYMPH # 2.0 103/ul Normal 1.2-3.8 [facility] Comment on above: Performed By: #### C MADM, BNP, CMP #### [facility] [address] [place] [address] Dr. Marco Greer Lymphocytes/100 WBC (Bld) 20.9 % Normal 20.5-60.0 [facility] Comment on above: Performed By: #### C MADM, BNP, CMP #### [facility] [address] [place] [address] Dr. Marco Greer MANUAL DIFF REQ NO Normal [facility] Comment on above: Performed By: #### C MADM, BNP, CMP #### [facility] [address] [place] [address] Dr. Marco Greer MCH (RBC) [Entitic mass] 27.2 pg Normal 26.7-34.0 [facility] Comment on above: Performed By: #### C MADM, BNP, CMP #### [facility] [address] [place] [address] Dr. Marco Greer MCHC (RBC) [Mass/Vol] 31.8 g/dL Normal 29.9-35.2 [facility] Comment on above: Performed By: #### C MADM, BNP, CMP #### [facility] [address] [place] [address] Dr. Marco Greer MCV (RBC) [Entitic vol] 85.6 fL Normal 81.0-99.0 [facility] Comment on above: Performed By: #### C MADM, BNP, CMP #### [facility] [address] [place] [address] Dr. Marco Greer MONO # 0.9 103/ul Critically high 0.3-0.8 [facility] Comment on above: Performed By: #### C MADM, BNP, CMP #### [facility] [address] [place] [address] Dr. Marco Greer Monocytes/100 WBC (Bld) 9.1 % Normal 1.7-12.0 [facility] Comment on above: Performed By: #### C MADM, BNP, CMP #### [facility] [address] [place] [address] Dr. Marco Greer NEUT # 5.6 103/ul Normal 1.4-6.5 [facility] Comment on above: Performed By: #### C MADM, BNP, CMP #### [facility] [address] [place] [address] Dr. Marco Greer Neutrophils/100 WBC (Bld) 59.5 % Normal 43.0-75.0 [facility] Comment on above: Performed By: #### C MADM, BNP, CMP #### [facility] [address] [place] [address] Dr. Marco Greer Platelet mean volume (Bld) [Entitic vol] 9.9 fL Normal 9.5-13.5 [facility] Comment on above: Performed By: #### C MADM, BNP, CMP #### [facility] [address] [place] [address] Dr. Marco Greer PLT 343 103/ul Normal 150-450 [facility] Comment on above: Performed By: #### C MADM, BNP, CMP #### [facility] [address] [place] [address] Dr. Marco Greer RBC 4.37 106/ul Normal 4.20-5.40 [facility] Comment on above: Performed By: #### C MADM, BNP, CMP #### [facility] [address] [place] [address] Dr. Marco Greer WBC 9.4 103/ul Normal 4.0-11.0 [facility] Comment on above: Performed By: #### C MADM, BNP, CMP #### [facility] [address] [place] [address] Dr. Marco Greer CRPon 03-11-2022 CRP [Mass/Vol] mg/L Normal <=1.0 [facility] Comment on above: Performed By: #### C MP #### [facility] [address] [place] [address] Dr. Marco Greer FREE T3on 03-11-2022 FREE T3 2.74 pg/mlL Normal 2.18-3.98 [facility] Comment on above: Performed By: #### C MP #### [facility] [address] [place] [address] Dr. Marco Greer FREE T4on 03-11-2022 Free T4 [Mass/Vol] 1.41 ng/dL Normal 0.76-1.46 [facility] Comment on above: Performed By: #### C MADM, BNP, CMP #### [facility] [address] [place] [address] Dr. Marco Greer LIVER PROFILEon 03-11-2022 Albumin [Mass/Vol] 3.0 g/dL Critically low 3.4-5.0 Th [facility] Comment on above: Performed By: #### C MP #### [facility] [address] [place] [address] Dr. Marco Greer Albumin/Globulin [Mass ratio] 0.9 {ratio} Normal [facility] Comment on above: Performed By: #### C MP #### [facility] [address] [place] [address] Dr. Marco Greer ALP [Catalytic activity/Vol] 89 U/L Normal 46-116 [facility] Comment on above: Performed By: #### C MP #### [facility] [address] [place] [address] Dr. Marco Greer ALT [Catalytic activity/Vol] 19 U/L Normal 14-59 [facility] Comment on above: Performed By: #### C MP #### [facility] [address] [place] [address] Dr. Marco Greer AST [Catalytic activity/Vol] 22 U/L Normal 15-37 [facility] Comment on above: Performed By: #### C MP #### [facility] [address] [address] [address] Marco Greer BILI, CONJUGATED 0.1 mg/dL Normal 0.0-0.2 [facility] Comment on above: Performed By: #### C MP #### [facility] [address] [place] [address] Dr. Marco Greer Bilirubin [Mass/Vol] 0.3 mg/dL Normal 0.2-1.0 [facility] Comment on above: Performed By: #### C MP #### [facility] [address] [place] [address] Dr. Marco Greer Globulin (S) [Mass/Vol] 3.5 g/dL Normal [facility] Comment on above: Performed By: #### C MP #### [facility] [address] [place] [address] Dr. Marco Greer Protein [Mass/Vol] 6.5 g/dL Normal 6.4-8.2 [facility] Comment on above: Performed By: #### C MP #### [facility] [address] [place] [address] Dr. Marco Greer PROF CHEM 8 (BAS METB)on Anion gap [Moles/Vol] 11.3 mmol/L Normal [facility] Comment on above: Performed By: #### C MP #### [facility] [address] [place] [address] Dr. Marco Greer Calcium [Mass/Vol] 8.7 mg/dL Normal 8.5-10.1 [facility] Comment on above: Performed By: #### C MP #### [facility] [address] [place] [address] Dr. Marco Greer Chloride [Moles/Vol] 103 mmol/L Normal 98-107 [facility] Comment on above: Performed By: #### C MP #### [facility] [address] [place] [address] Dr. Marco Greer CO2 [Moles/Vol] 26.6 mmol/L Normal 21.0-32.0 [facility] Comment on above: Performed By: #### C MP #### [facility] [address] [place] [address] Dr. Marco Greer Creatinine [Mass/Vol] 0.88 mg/dL Normal 0.55-1.02 [facility] Comment on above: Performed By: #### C MP #### [facility] [address] [address] [address] Marco Greer EGFR-AF MALAYSIAN >60 Normal >=60 [facility] Comment on above: Performed By: #### C MP #### [facility] [address] [place] [address] Dr. Marco Greer EGFR-NON AF MALAYSIAN >60 Normal >=60 [facility] Comment on above: Performed By: #### C MP #### [facility] [address] [place] [address] Dr. Marco Greer Glucose [Mass/Vol] 91 mg/dL Normal 74-106 [facility] Comment on above: Performed By: #### C MP #### [facility] [address] [place] [address] Dr. Marco Greer Potassium [Moles/Vol] 3.9 mmol/L Normal 3.5-5.1 [facility] Comment on above: Performed By: #### C MP #### [facility] [address] [place] [address] Dr. Marco Greer Sodium [Moles/Vol] 137 mmol/L Normal 136-145 [facility] Comment on above: Performed By: #### C MP #### [facility] [address] [place] [address] Dr. Marco Greer Urea nitrogen [Mass/Vol] 20.0 mg/dL Critically high 7.0-18.0 [facility] Comment on above: Performed By: #### C MP #### [facility] [address] [place] [address] Dr. Marco Greer Urea nitrogen/Creatinine [Mass ratio] 22.7 mg/mg Normal [facility] Comment on above: Performed By: #### C MP #### [facility] [address] [place] [address] Dr. Marco Greer SED RATE WESTERGRENon 2021 SED RATE 60 mm/hr Critically high <=30 [facility] Comment on above: Performed By: #### C MADM, BNP, CMP #### [facility] [address] [address] [address] Marco Greer TSHon 03-11-2022 TSH 0.600 uIU/mL Normal 0.358-3.74 0 [facility] Comment on above: Performed By: #### C MP #### [facility] [address] [address] [address] Marco Greer Albumin [Mass/volume] in Ser um or PlasmaOrdered By: Brianda Harris on 03-04-2022 Albumin [Mass/Vol] 3.1 g/dL 3.2-5.5 [facility] Basophils Auto (Bld) [#/Vol] Ordered By: Brianda Harris on 03-04-2022 Basophils (Bld) [#/Vol] 0.1 10*3/uL 0.0-0.2 [facility] Basophils/100 WBC Auto (Bld) Ordered By: Brianda Harris on 03-04-2022 Basophils/100 WBC (Bld) 0.5 % . [facility] Creatinine and Glomerular fi ltration rate.predicted panel (S/P/Bld)Ordered By: Brianda Harris on 03-04-2022 Creatinine [Mass/Vol] 0.88 mg/dL 0.44-1.03 [facility] Eosinophils Auto (Bld) [#/Vo l]Ordered By: Brianda Harris on 03-04-2022 Eosinophils (Bld) [#/Vol] 0.0 10*3/uL 0.0-0.45 [facility] Eosinophils/100 WBC Auto (Bl d)Ordered By: Brianda Harris on 03-04-2022 Eosinophils/100 WBC (Bld) 0.4 % . [facility] Erythrocyte distribution wid th Auto (RBC) [Ratio]Ordered By: Brianda Harris on 03-04-2022 Erythrocyte distribution width (RBC) [Ratio] 15.7 % 11.9-15.3 [facility] Erythrocyte sedimentation ra te by Photometric methodOrdered By: Brianda Harris on 03-04-2022 ESR Photometric method (Bld) [Velocity] 59 mm/hr 0-29 [facility] Estimated glomerular filtrat ion rate (GFR) non- AmericanOrdered By: Brianda Harris on 03-04-2022 GFR/1.73 sq M.predicted among non-blacks MDRD (S/P/Bld) [Vol rate/Area] > 60 mL/Min [facility] Globulin Calc (S) [Mass/Vol] Ordered By: Brianda Harris on 03-04-2022 Globulin (S) [Mass/Vol] 3.7 g/dL [facility] Hematocrit Auto (Bld) [Volum e fraction]Ordered By: Brianda Harris on 03-04-2022 Hematocrit (Bld) [Volume fraction] 36.5 % 34.0-46.4 [facility] Hemoglobin [Mass/volume] in BloodOrdered By: Brianda Harris on 03-04-2022 Hemoglobin (Bld) [Mass/Vol] 11.7 g/dL 11.8-15.4 [facility] Leukocytes [#/volume] correc abena for nucleated erythrocytes in Blood by Automated counOrdered By: Brianda Harris on 03-04-2022 WBC corrected for nucl RBC Auto (Bld) [#/Vol] 10.4 10*3/uL 3.8-11.6 [facility] Lymphocytes Auto (Bld) [#/Vo l]Ordered By: Brianda Harris on 03-04-2022 Lymphocytes (Bld) [#/Vol] 0.9 10*3/uL 1.00-4.8 [facility] Lymphocytes/100 WBC Auto (Bl d)Ordered By: Brianda Harris on 03-04-2022 Lymphocytes/100 WBC (Bld) 8.5 % . [facility] MCH Auto (RBC) [Entitic mass ]Ordered By: Brianda Harris on 03-04-2022 MCH (RBC) [Entitic mass] 26.7 pg 24.7-34.3 [facility] MCHC Auto (RBC) [Mass/Vol]Or dered By: Brianda Harris on 03-04-2022 MCHC (RBC) [Mass/Vol] 31.9 g/dL 32.0-35.0 [facility] MCV Auto (RBC) [Entitic vol] Ordered By: Brianda Harris on 03-04-2022 MCV (RBC) [Entitic vol] 83.8 fL 80-100 [facility] Monocytes Auto (Bld) [#/Vol] Ordered By: Brianda Harris on 03-04-2022 Monocytes (Bld) [#/Vol] 0.2 10*3/uL 0.0-0.8 [facility] Monocytes/100 WBC Auto (Bld) Ordered By: Brianda Harris on 03-04-2022 Monocytes/100 WBC (Bld) 2.3 % . [facility] Neutrophils Auto (Bld) [#/Vo l]Ordered By: Brianda Harris on 03-04-2022 Neutrophils (Bld) [#/Vol] 9.2 10*3/uL 1.8-7.7 [facility] Neutrophils/100 WBC Auto (Bl d)Ordered By: Brianda Harris on 03-04-2022 Neutrophils/100 WBC (Bld) 88.3 % . [facility] No Panel InformationOrdered By: Brianda Harris on 03-04-2022 Estimated GFR () > 60 mL/Min [facility] Comment on above: GFR estimated refere nce range: According to KDOQI guidelines, <60 ml/min/1.73m2 is sufficient to diagnose a patient with chronic kidney disease. Pharmacy Creatinine Clearance (Chem N/A [facility] Nucleated erythrocytes [Pres ence] in Blood by Automated countOrdered By: Brianda Harris on 03-04-2022 Nucleated RBC Auto Ql (Bld) 0.0 /100{WBC} 0-0.5 [facility] Platelet mean volume Auto (B ld) [Entitic vol]Ordered By: Brianda Harris on 03-04-2022 Platelet mean volume (Bld) [Entitic vol] 8.5 fL 6.3-10.7 [facility] Platelets Auto (Bld) [#/Vol] Ordered By: Brianda Harris on 03-04-2022 Platelets (Bld) [#/Vol] 395 10*3/uL 150-450 [facility] Protein [Mass/volume] in Ser um or PlasmaOrdered By: Brianda Harris on 03-04-2022 Protein [Mass/Vol] 6.8 g/dL 6.1-7.9 [facility] RBC Auto (Bld) [#/Vol]Ordere d By: Brianda Harris on 03-04-2022 RBC (Bld) [#/Vol] 4.36 10*6/uL 3.60-5.00 [facility] Serum or plasma alanine kenny otransferase measurement without P-5'-P (enzymatic activiOrdered By: Brianda Harris on 03-04-2022 ALT No additional P-5'-P [Catalytic activity/Vol] 25 U/L 10-60 [facility] Serum or plasma albumin/glob ulin mass ratioOrdered By: Brianda Harris on 03-04-2022 Albumin/Globulin [Mass ratio] 0.8 {ratio} [facility] Serum or plasma alkaline lisy sphatase measurement (enzymatic activity/volume)Ordered By: Brianda Harris on 03-04-2022 ALP [Catalytic activity/Vol] 87 U/L 32-92 [facility] Serum or plasma anion gap de terminationOrdered By: Brianda Harris on 03-04-2022 Anion gap [Moles/Vol] 12.6 mmol/L 6.0-15.0 [facility] Serum or plasma aspartate am inotransferase measurement (enzymatic activity/volume)Ordered By: Brianda Harris on 03-04-2022 AST [Catalytic activity/Vol] 29 U/L 10-42 [facility] Serum or plasma calcium rashmi urement (mass/volume)Ordered By: Brianda Harris on 03-04-2022 Calcium [Mass/Vol] 8.9 mg/dL 8.2-10.2 [facility] Serum or plasma chloride reece surement (moles/volume)Ordered By: Brianda Harris on 03-04-2022 Chloride [Moles/Vol] 98 mmol/L 95-114 [facility] Serum or plasma glucose rashmi urement (mass/volume)Ordered By: Brianda Harris on 03-04-2022 Glucose [Mass/Vol] 109 mg/dL 70-100 [facility] Comment on above: ADA recommended refe rence rangeRandom Glucose Reference Range is dependent on time and content of last meal. Glucose of more than 200 mg/dL in a nonstressed, ambulatory subject supports the diagnosis of Diabetes Mellitus. Serum or plasma potassium me asurement (moles/volume)Ordered By: Brianda Harris on 03-04-2022 Potassium [Moles/Vol] 3.6 mmol/L 3.5-5.1 [facility] Serum or plasma sodium measu rement (moles/volume)Ordered By: Brianda Harris on 03-04-2022 Sodium [Moles/Vol] 131 mmol/L 136-146 [facility] Serum or plasma total biliru bin measurement (mass/volume)Ordered By: Brianda Harris on 03-04-2022 Bilirubin [Mass/Vol] 0.5 mg/dL 0.3-1.2 [facility] Serum or plasma total carbon dioxide measurement (moles/volume)Ordered By: Brianda Harris on 03-04-2022 CO2 [Moles/Vol] 24.0 mmol/L 22.0-30.0 [facility] Serum or plasma urea nitroge n measurement (mass/volume)Ordered By: Brianda Harris on 03-04-2022 Urea nitrogen [Mass/Vol] 15 mg/dL 9- [facility] WBC Auto (Bld) [#/Vol]Ordere d By: Brianda Harris on 03-04-2022 WBC (Bld) [#/Vol] 10.4 10*3/uL 3.8-11.6 [facility] Electrocardiogram 12 Leadon 02-27-2022 Electrocardiogram 12 Lead Ventricular Rate 61 Atrial Rate 61 P-R Interval 172 QRS Duration 90 Q-T Interval 446 QTC Calculation(Bazett) 448 P [place] 64 R [place] 27 T [place] 95 QRS Count 11 Q Onset 221 [...] in Anterior-lateral leads Confirmed by Jan Gaona ([id number]) on 03/02/2022 2:16:11 PM Normal [facility] No Panel Informationon 02-27 [email or web address] ?RetrieveTestByDateTime?Pa ounwbSS=[id number]&Date=&Time=13%3a11%3a48% 3a00&TestType=ECG&Site=1&O utputType=PDF&Ext=PDF [facility] 250 DO Work Phone: Sinus rhythm with occasional Premature ventricular complexes [facility] 250 DO Work Phone: Abnormal [facility] 250 DO Work Phone: 448 1 [facility] 250 DO Work Phone: [phone] 1 [facility] 250 DO Work Phone: 188 1 [facility] 250 DO Work Phone: 135 1 [facility] 250 DO Work Phone: 221 1 [facility] 250 DO Work Phone: 11 1 [facility] 250 DO Work Phone: 95 1 [facility] 250 DO Work Phone: 27 1 [facility] 250 DO Work Phone: 64 1 [facility] 250 DO Work Phone: 446 1 [facility] 250 DO Work Phone: 90 1 [facility] 250 DO Work Phone: 172 1 [facility] 250 DO Work Phone: 61 1 [facility] 250 DO Work Phone: Office Visit (Cardiac Surger y)on 02-27-2022 Follow-up visit Diagnoses/Problems Assessed CAD (coronary artery disease) (414.00) (I25.10) S/P CABG x 3 (V45.81) (Z95.1) Orders CAD (coronary artery disease) Electrocardiogram 12 Lead; Status:Complete; Done: 32Vas1300 01:23PM S/P CABG x 3 Cardiac Rehab Referral Evaluation and Treatment BELLVUE Status: Hold For - Scheduling,Retrospective By Protocol Authorization Requested for: [id number] Agreement : I agree to have my [...] x3 done on January 12, 2022. Rehan Fraser BSN, RN-BC. History of Present IllnessI reviewed her [...] 1 tablet 2x/day. Vitals Vital Signs Recorded: [id number] 01:19PM Heart Rate61 Uxauqwom915, LUE, Sitting Djqyitjrh51, LUE, Sitting Height5 ft 4 in Sdhztu315 lb 2 oz BMI Gmapevzxlp66.79 kg/m2 BSA Calculated1.58 Tobacco Useb) No Falls Screening (Age 18+)a) No falls within the last year O2 Bbqnkonkdc35, RA Pain Scale0/10 Physical Exam On examination [...] Feb 27 2022 2:11PM EST (Author) Normal [facility] 02-27-2022 XR Chest 2 Views Please click on the link to view the study images Normal [facility] [address] [place] Work Phone: TH CHEST 2 VIEW PA AND LATon 02-27-2022 TH CHEST 2 VIEW PA AND LAT Patient Name: CELY FINCH STUDY: TH CHEST 2 VIEW PA AND LAT; 02/27/2022 11:28 am INDICATION: P/OP Z95.1: S/P CABG x 3. COMPARISON: Chest radiograph 01/24/2022 ACCESSION NUMBER(S): [id number] ORDERING CLINICIAN: ALBIN PIERCE FINDINGS: PA and [...] as stated. This study was interpreted at [facility], [place], [place]. Electronically signed by: Keagan ROSARIO MD Normal [facility] Tobacco Screening.on 022 Fall risk assessment a) No falls within the last year [facility] [address] [place] Work Phone: Tobacco use status [facility] b) No [facility] [address] [place] Work Phone: Creatinine and Glomerular fi ltration rate.predicted panel (S/P/Bld)Ordered By: Kvng Romo on 02-24-2022 Creatinine [Mass/Vol] 0.81 mg/dL 0.44-1.03 [facility] Estimated glomerular filtrat ion rate (GFR) non- AmericanOrdered By: Kvng Romo on 02-24-2022 GFR/1.73 sq M.predicted among non-blacks MDRD (S/P/Bld) [Vol rate/Area] > 60 mL/Min [facility] No Panel InformationOrdered By: Kvng Romo on 02-24-2022 Estimated GFR () > 60 mL/Min [facility] Comment on above: GFR estimated refere nce range: According to KDOQI guidelines, <60 ml/min/1.73m2 is sufficient to diagnose a patient with chronic kidney disease. Pharmacy Creatinine Clearance (Chem N/A [facility] Serum or plasma anion gap de terminationOrdered By: Kvng Romo on 02-24-2022 Anion gap [Moles/Vol] 15.0 mmol/L 6.0-15.0 [facility] Serum or plasma calcium rashmi urement (mass/volume)Ordered By: Kvng Romo on 02-24-2022 Calcium [Mass/Vol] 9.1 mg/dL 8.2-10.2 [facility] Serum or plasma chloride reece surement (moles/volume)Ordered By: Kvng Romo on 02-24-2022 Chloride [Moles/Vol] 96 mmol/L 95-114 [facility] Serum or plasma glucose rashmi urement (mass/volume)Ordered By: Kvng Romo on 02-24-2022 Glucose [Mass/Vol] 77 mg/dL 70-100 [facility] Comment on above: ADA recommended refe rence rangeRandom Glucose Reference Range is dependent on time and content of last meal. Glucose of more than 200 mg/dL in a nonstressed, ambulatory subject supports the diagnosis of Diabetes Mellitus. Serum or plasma potassium me asurement (moles/volume)Ordered By: Kvng Romo on 02-24-2022 Potassium [Moles/Vol] 3.9 mmol/L 3.5-5.1 [facility] Serum or plasma sodium measu rement (moles/volume)Ordered By: Kvng Romo on 02-24-2022 Sodium [Moles/Vol] 129 mmol/L 136-146 [facility] Serum or plasma total carbon dioxide measurement (moles/volume)Ordered By: Kvng Romo on 02-24-2022 CO2 [Moles/Vol] 21.9 mmol/L 22.0-30.0 [facility] Serum or plasma urea nitroge n measurement (mass/volume)Ordered By: Kvng Romo on 02-24-2022 Urea nitrogen [Mass/Vol] 10 mg/dL 9-23 [facility] Initial Visit (Nephrology)on 02-17-2022 Initial Visit (Nephrology) Diagnoses/Problems Benign essential hypertension (401.1) (I10) S/P CABG x 3 (V45.81) (Z95.1) 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 She was seen also secondary to hyponatremia she has chronic hyponatremia per records with baseline sodium per the records of 04 12- She was on urea packets, Lasix as needed and a sodium bicarbonate when she was in the hospital in [place] In December a urine osmolality was measured [...] MOUTH DA (more content not included)... Normal [facility] Tobacco Screening.on 022 Fall risk assessment a) No falls within the last year [facility] Work Phone: Tobacco use status [facility] b) No [facility] Work Phone: Office Visit (Cardiology)on [...] IO EKG Electrocardiogram- 12 Lead; Status:Complete; Done: [id number] CAD (coronary artery disease), S/P CABG x 3 Renew: Aspirin 81 MG Oral Tablet Delayed Release; TAKE 1 TABLET DAILY Renew: Atorvastatin Calcium 80 MG Oral Tablet; TAKE 1 TABLET BY MOUTH DAILY SocHx: Former smoker Tobacco Use Screening; Status:Complete; Done: [id number] Patient Instructions Please bring all medicines, vitamins, [...] Signs Patient: CELY FINCH; : 1940; Recorded: 09Uja2753 11:46AMRecorded: 64Mru6561 11:20AMRecorded: 48Hkf5899 11:15AM Sbocjwnn062, LUE, Si (more content not included)... Normal [facility] Tobacco Screening.on 022 Adult depression screening assessment No [facility] [employer] 250 DO Work Phone: Fall risk assessment b) One or more fall s in the last year [facility] [employer] 250 DO Work Phone: Tobacco use status [facility] b) No [facility] [employer] 250 DO Work Phone: CBC AUTO DIFFon 02-10-2022 BASO # 0.1 103/ul Normal 0.0-0.1 [facility] Comment on above: Performed By: #### C MADM, BNP, CMP #### [facility] [address] [place] [address] Dr. Marco Greer Basophils/100 WBC (Bld) 1.1 % Normal 0.2-2.0 [facility] Comment on above: Performed By: #### C MADM, BNP, CMP #### [facility] [address] [place] [address] Dr. Marco Greer EO # 0.5 103/ul Normal 0.0-0.7 [facility] Comment on above: Performed By: #### C MADM, BNP, CMP #### [facility] [address] [place] [address] Dr. Marco Greer Eosinophils/100 WBC (Bld) 6.0 % Normal 0.9-7.0 [facility] Comment on above: Performed By: #### C MADM, BNP, CMP #### [facility] [address] [place] [address] Dr. Marco Greer Erythrocyte distribution width (RBC) [Ratio] 15.2 % Critically high 11.0-15.0 [facility] Comment on above: Performed By: #### C MADM, BNP, CMP #### [facility] [address] [place] [address] Dr. Marco Greer Hematocrit (Bld) [Volume fraction] 39.6 % Normal 36.0-48.0 [facility] Comment on above: Performed By: #### C MADM, BNP, CMP #### [facility] [address] [place] [address] Dr. Marco Greer Hemoglobin (Bld) [Mass/Vol] 12.4 g/dL Normal 12.0-16.0 [facility] Comment on above: Performed By: #### C MADM, BNP, CMP #### [facility] [address] [place] [address] Dr. Marco Greer IG # 0.02 10e3/ul Normal 0.00-0.03 [facility] Comment on above: Performed By: #### C MADM, BNP, CMP #### [facility] [address] [place] [address] Dr. Marco Greer IG % 0.3 % Normal 0.0-0.5 [facility] Comment on above: Performed By: #### C MADM, BNP, CMP #### [facility] [address] [place] [address] Dr. Marco Greer LYMPH # 1.2 103/ul Normal 1.2-3.8 [facility] Comment on above: Performed By: #### C MADM, BNP, CMP #### [facility] [address] [place] [address] Dr. Marco Greer Lymphocytes/100 WBC (Bld) 15.5 % Critically low 20.5-60.0 [facility] Comment on above: Performed By: #### C MADM, BNP, CMP #### [facility] [address] [place] [address] Dr. Marco Greer MANUAL DIFF REQ NO Normal [facility] Comment on above: Performed By: #### C MADM, BNP, CMP #### [facility] [address] [place] [address] Dr. Marco Greer MCH (RBC) [Entitic mass] 28.1 pg Normal 26.7-34.0 [facility] Comment on above: Performed By: #### C MADM, BNP, CMP #### [facility] [address] [place] [address] Dr. Marco Greer MCHC (RBC) [Mass/Vol] 31.3 g/dL Normal 29.9-35.2 [facility] Comment on above: Performed By: #### C MADM, BNP, CMP #### [facility] [address] [place] [address] Dr. Marco Greer MCV (RBC) [Entitic vol] 89.6 fL Normal 81.0-99.0 [facility] Comment on above: Performed By: #### C MADM, BNP, CMP #### [facility] [address] [place] [address] Dr. Marco Greer MONO # 0.7 103/ul Normal 0.3-0.8 [facility] Comment on above: Performed By: #### C MADM, BNP, CMP #### [facility] [address] [place] [address] Dr. Marco Greer Monocytes/100 WBC (Bld) 8.9 % Normal 1.7-12.0 [facility] Comment on above: Performed By: #### C MADM, BNP, CMP #### [facility] [address] [place] [address] Dr. Marco Greer NEUT # 5.4 103/ul Normal 1.4-6.5 [facility] Comment on above: Performed By: #### C MADM, BNP, CMP #### [facility] [address] [place] [address] Dr. Marco Greer Neutrophils/100 WBC (Bld) 68.2 % Normal 43.0-75.0 [facility] Comment on above: Performed By: #### C MADM, BNP, CMP #### [facility] [address] [address] [address] Marco Greer Platelet mean volume (Bld) [Entitic vol] 10.1 fL Normal 9.5-13.5 [facility] Comment on above: Performed By: #### C MADM, BNP, CMP #### [facility] [address] [place] [address] Dr. Marco Greer PLT 518 103/ul Critically high 150-450 [facility] Comment on above: Performed By: #### C MADM, BNP, CMP #### [facility] [address] [place] [address] Dr. Marco Greer RBC 4.42 106/ul Normal 4.20-5.40 [facility] Comment on above: Performed By: #### C MADM, BNP, CMP #### [facility] [address] [place] [address] Dr. Marco Greer WBC 7.9 103/ul Normal 4.0-11.0 [facility] Comment on above: Performed By: #### C MADM, BNP, CMP #### [facility] [address] [place] [address] Dr. Marco Greer CRPon 02-10-2022 CRP 1.6 mg/dL Critically high <=1.0 [facility] Comment on above: Performed By: #### C RP, LIVER, TSH, BMP, FT3 #### [facility] [address] [place] [address] Dr. Marco Greer FREE T3on 02-10-2022 FREE T3 1.99 pg/mlL Critically low 2.18-3.98 [facility] Comment on above: Performed By: #### C RP, LIVER, TSH, BMP, FT3 #### [facility] [address] [place] [address] Dr. Marco Greer FREE T4on 02-10-2022 Free T4 [Mass/Vol] 1.43 ng/dL Normal 0.76-1.46 [facility] Comment on above: Performed By: #### C MP #### [facility] [address] [place] [address] Dr. Marco Greer LIVER PROFILEon 02-10-2022 Albumin [Mass/Vol] 3.2 g/dL Critically low 3.4-5.0 [facility] Comment on above: Performed By: #### C RP, LIVER, TSH, BMP, FT3 #### [facility] [address] [address] [address] Marco Greer Albumin/Globulin [Mass ratio] 0.7 {ratio} Normal [facility] Comment on above: Performed By: #### C RP, LIVER, TSH, BMP, FT3 #### [facility] [address] [place] [address] Dr. Marco Greer ALP [Catalytic activity/Vol] 109 U/L Normal 46-116 [facility] Comment on above: Performed By: #### C RP, LIVER, TSH, BMP, FT3 #### [facility] [address] [address] [address] Marco Greer ALT [Catalytic activity/Vol] 22 U/L Normal 14-59 [facility] Comment on above: Performed By: #### C RP, LIVER, TSH, BMP, FT3 #### [facility] [address] [address] [address] Marco Greer AST [Catalytic activity/Vol] 24 U/L Normal 15-37 [facility] Comment on above: Performed By: #### C RP, LIVER, TSH, BMP, FT3 #### [facility] [address] [address] [address] Marco Greer BILI, CONJUGATED 0.2 mg/dL Normal 0.0-0.2 [facility] Comment on above: Performed By: #### C RP, LIVER, TSH, BMP, FT3 #### [facility] [address] [place] [address] Dr. Marco Greer Bilirubin [Mass/Vol] 0.5 mg/dL Normal 0.2-1.0 [facility] Comment on above: Performed By: #### C RP, LIVER, TSH, BMP, FT3 #### [facility] [address] [place] [address] Dr. Marco Greer Globulin (S) [Mass/Vol] 4.3 g/dL Normal [facility] Comment on above: Performed By: #### C RP, LIVER, TSH, BMP, FT3 #### [facility] [address] [place] [address] Dr. Marco Greer Protein [Mass/Vol] 7.5 g/dL Normal 6.4-8.2 [facility] Comment on above: Performed By: #### C RP, LIVER, TSH, BMP, FT3 #### [facility] [address] [place] [address] Dr. Marco Greer PROF CHEM 8 (BAS METB)on Anion gap [Moles/Vol] 13.8 mmol/L Normal [facility] Comment on above: Performed By: #### C RP, LIVER, TSH, BMP, FT3 #### [facility] [address] [place] [address] Dr. Marco Greer Calcium [Mass/Vol] 9.3 mg/dL Normal 8.5-10.1 [facility] Comment on above: Performed By: #### C RP, LIVER, TSH, BMP, FT3 #### [facility] [address] [place] [address] Dr. Marco Greer Chloride [Moles/Vol] 97 mmol/L Critically low 98-107 [facility] Comment on above: Performed By: #### C RP, LIVER, TSH, BMP, FT3 #### [facility] [address] [place] [address] Dr. Marco Greer CO2 [Moles/Vol] 25.4 mmol/L Normal 21.0-32.0 [facility] Comment on above: Performed By: #### C RP, LIVER, TSH, BMP, FT3 #### [facility] [address] [place] [address] Dr. Marco Greer Creatinine [Mass/Vol] 0.77 mg/dL Normal 0.55-1.02 [facility] Comment on above: Performed By: #### C RP, LIVER, TSH, BMP, FT3 #### [facility] [address] [address] [address] Marco Greer EGFR-AF MALAYSIAN >60 Normal >=60 [facility] Comment on above: Performed By: #### C RP, LIVER, TSH, BMP, FT3 #### [facility] [address] [address] [address] Marco Greer EGFR-NON AF MALAYSIAN >60 Normal >=60 [facility] Comment on above: Performed By: #### C RP, LIVER, TSH, BMP, FT3 #### [facility] [address] [place] [address] Dr. Marco Greer Glucose [Mass/Vol] 78 mg/dL Normal 74-106 [facility] Comment on above: Performed By: #### C RP, LIVER, TSH, BMP, FT3 #### [facility] [address] [place] [address] Dr. Marco Greer Potassium [Moles/Vol] 3.2 mmol/L Critically low 3.5-5.1 [facility] Comment on above: Performed By: #### C RP, LIVER, TSH, BMP, FT3 #### [facility] [address] [place] [address] Dr. Marco Greer Sodium [Moles/Vol] 133 mmol/L Critically low 136-145 Th [facility] Comment on above: Performed By: #### C RP, LIVER, TSH, BMP, FT3 #### [facility] [address] [place] [address] Dr. Marco Greer Urea nitrogen [Mass/Vol] 13.0 mg/dL Normal 7.0-18.0 [facility] Comment on above: Performed By: #### C RP, LIVER, TSH, BMP, FT3 #### [facility] [address] [place] [address] Dr. Marco Greer Urea nitrogen/Creatinine [Mass ratio] 16.9 mg/mg Normal [facility] Comment on above: Performed By: #### C RP, LIVER, TSH, BMP, FT3 #### [facility] [address] [address] [address] Marco Greer [facility] 2021 SED RATE 83 mm/hr Critically high <=30 [facility] Comment on above: Performed By: #### C MADM, BNP, CMP #### [facility] [address] [place] [address] Dr. Marco Greer TSHon 02-10-2022 TSH 4.983 uIU/mL Critically high 0.358-3.74 0 [facility] Comment on above: Performed By: #### C RP, LIVER, TSH, BMP, FT3 #### [facility] [address] [place] [address] Dr. Marco Greer Laboratory - Hematology and Cell countson 01-28-2022 Erythrocyte distribution width (RBC) [Ratio] 15.9 % above high threshold See Below [facility] [place] DO Work Phone: Comment on above: Reference Range: 11. 5 - 14.5 Hematocrit (Bld) [Volume fraction] 29.8 % below low threshold See Below [place] [address] DO Work Phone: Comment on above: Reference Range: 36. 0 - 46.0 Hemoglobin (Bld) [Mass/Vol] 9.8 g/dL below low threshold See Below [facility] [place] DO Work Phone: Comment on above: Reference Range: 12. 0 - 16.0 MCHC (RBC) [Mass/Vol] 32.9 g/dL See Below [place] [address] DO Work Phone: Comment on above: Reference Range: 32. 0 - 36.0 MCV (RBC) [Entitic vol] 92 fL 80 - 100 [place] [address] DO Work Phone: Platelets (Bld) [#/Vol] 435 10*3/uL 150 - 450 [place] [address] DO Work Phone: RBC (Bld) [#/Vol] 3.25 {x10E12/L} below low threshold See Below [facility] [employer] 250 DO Work Phone: Comment on above: Reference Range: 4.0 0 - 5.20 WBC (Bld) [#/Vol] 9.2 10*3/uL 4.4 - 11.3 [facility] [employer] 250 DO Work Phone: Magnesium, Serumon 2 Magnesium [Mass/Vol] 2.02 mg/dL See Below [facility] [employer] 250 DO Work Phone: Comment on above: Reference Range: 1.6 0 - 2.40 No Panel Informationon 01-28 0.0 {/100_WBC} 0.0-0.0 [facility] [employer] 250 DO Work Phone: Renal Function Panelon 01-28 Albumin BCP dye [Mass/Vol] 2.8 g/dL below low threshold 3.4 - 5.0 [facility] [employer] 250 DO Work Phone: Anion gap [Moles/Vol] 16 mmol/L 10 - 20 [facility] [employer] 250 DO Work Phone: Calcium [Mass/Vol] 8.5 mg/dL below low threshold 8.6 - 10.6 [facility] [employer] 250 DO Work Phone: Chloride [Moles/Vol] 99 mmol/L 98 - 107 [facility] [employer] kori 250 DO Work Phone: CO2 [Moles/Vol] 23 mmol/L 21 - 32 [facility] [employer] kori 250 DO Work Phone: Creatinine [Mass/Vol] 0.71 mg/dL See Below [facility] [employer] kori 250 DO Work Phone: Comment on above: Reference Range: 0.5 0 - 1.05 Glucose [Mass/Vol] 71 mg/dL below low threshold 74 - 99 [facility] kori Ostara DO Work Phone: Phosphate [Mass/Vol] 3.8 mg/dL 2.5 - 4.9 [facility] Ostara DO Work Phone: Comment on above: The performance andra acteristics of phosphorus testing in heparinized plasma have been validated by the individual laboratory site where testing is performed. Testing on heparinized plasma is not approved by the FDA; however, such approval is not necessary. Potassium [Moles/Vol] 4.9 mmol/L 3.5 - 5.3 [place] [address] DO Work Phone: Sodium [Moles/Vol] 133 mmol/L below low threshold 136 - 145 [place] [address] DO Work Phone: Urea nitrogen [Mass/Vol] 48 mg/dL above high threshold 6 - 23 [place] [address] DO Work Phone: Renal Function Panel 86 {mL/min/1.73m2} >90 [place] [address] DO Work Phone: Comment on above: CALCULATIONS OF MOISES MATED GFR ARE PERFORMED USING THE 2020 CKD-EPI STUDY REFIT EQUATION WITHOUT THE RACE VARIABLE FOR THE IDMS-TRACEABLE CREATININE METHODS.https://jasn.asnjournals.org/content//A .2262309524 Coronavirus 2019 RNA by PCR, Screening Asymptomticon 01-27-2022 Coronavirus 2019 RNA by PCR, Screening Asymptomtic Not detected Normal See Below [facility] Ostara DO Work Phone: Comment on above: SOURCE: [...] this test method. Fact sheet for providers: www.fda.gov/media/268302/downloadFact sheet for patients: www.fda.gov/media/308807/downloadThis test has received FDA Emergency Use Authorization (EUA) and has been verified by [facility] ([facility]). This test is only authorized for the duration of time that circumstances exist to justify the authorization of the emergency use of in vitro diagnostic tests for the detection of SARS-CoV-2 virus and/or diagnosis of COVID-19 infection under section 564(b)(1) of the Act, 21 U.S.C. 360bbb-3(b)(1), unless the authorization is terminated or revoked sooner. [facility] is certified under CLIA-88 as qualified to perform high complexity testing. Testing is performed in the [facility] laboratories located at [address] [place] [address]. Laboratory - Hematology and Cell countson 01-27-2022 Erythrocyte distribution width (RBC) [Ratio] 15.6 % above high threshold See Below [facility] [employer] DO Work Phone: Comment on above: Reference Range: 11. 5 - 14.5 Hematocrit (Bld) [Volume fraction] 28.3 % below low threshold See Below [facility] kori Ostara DO Work Phone: Comment on above: Reference Range: 36. 0 - 46.0 Hemoglobin (Bld) [Mass/Vol] 9.5 g/dL below low threshold See Below [facility] kori Ostara DO Work Phone: Comment on above: Reference Range: 12. 0 - 16.0 MCHC (RBC) [Mass/Vol] 33.6 g/dL See Below [facility] kori Ostara DO Work Phone: Comment on above: Reference Range: 32. 0 - 36.0 MCV (RBC) [Entitic vol] 90 fL 80 - 100 [facility] Ostara DO Work Phone: Platelets (Bld) [#/Vol] 462 10*3/uL above high threshold 150 - 450 [facility] [employer] kori 250 DO Work Phone: RBC (Bld) [#/Vol] 3.16 {x10E12/L} below low threshold See Below [facility] 250 DO Work Phone: Comment on above: Reference Range: 4.0 0 - 5.20 WBC (Bld) [#/Vol] 10.4 10*3/uL 4.4 - 11.3 MP-No [facility] kori 250 DO Work Phone: Magnesium, Serumon 2 Magnesium [Mass/Vol] 1.99 mg/dL See Below [facility] [employer] kori 250 DO Work Phone: Comment on above: Reference Range: 1.6 0 - 2.40 No Panel Informationon 01-27 0.0 {/100_WBC} 0.0-0.0 [facility] [address] DO Work Phone: Renal Function Panelon 01-27 Albumin BCP dye [Mass/Vol] 2.7 g/dL below low threshold 3.4 - 5.0 [facility] 250 DO Work Phone: Anion gap [Moles/Vol] 12 mmol/L 10 - 20 [place] [address] DO Work Phone: Calcium [Mass/Vol] 8.3 mg/dL below low threshold 8.6 - 10.6 [facility] 250 DO Work Phone: Chloride [Moles/Vol] 95 mmol/L below low threshold 98 - 107 [facility] 250 DO Work Phone: CO2 [Moles/Vol] 26 mmol/L 21 - 32 [place] [address] DO Work Phone: Creatinine [Mass/Vol] 0.73 mg/dL See Below [facility] Ostara DO Work Phone: Comment on above: Reference Range: 0.5 0 - 1.05 Glucose [Mass/Vol] 77 mg/dL 74 - 99 [employer] 250 DO Work Phone: Phosphate [Mass/Vol] 4.2 mg/dL 2.5 - 4.9 [facility] 250 DO Work Phone: Comment on above: The performance andra acteristics of phosphorus testing in heparinized plasma have been validated by the individual laboratory site where testing is performed. Testing on heparinized plasma is not approved by the FDA; however, such approval is not necessary. Potassium [Moles/Vol] 4.9 mmol/L 3.5 - 5.3 [place] [address] DO Work Phone: Sodium [Moles/Vol] 128 mmol/L below low threshold 136 - 145 [place] [address] DO Work Phone: Urea nitrogen [Mass/Vol] 48 mg/dL above high threshold 6 - 23 [place] [address] DO Work Phone: Renal Function Panel 83 {mL/min/1.73m2} >90 [place] [address] DO Work Phone: Comment on above: CALCULATIONS OF MOISES MATED GFR ARE PERFORMED USING THE 2020 CKD-EPI STUDY REFIT EQUATION WITHOUT THE RACE VARIABLE FOR THE IDMS-TRACEABLE CREATININE METHODS.https://jasn.asnjournals.org/content/early/A .9198348942 Laboratory - Hematology and Cell countson 01-26-2022 Erythrocyte distribution width (RBC) [Ratio] 15.5 % above high threshold See Below [facility] Ostara DO Work Phone: Comment on above: Reference Range: 11. 5 - 14.5 Hematocrit (Bld) [Volume fraction] 30.3 % below low threshold See Below [place] [address] DO Work Phone: Comment on above: Reference Range: 36. 0 - 46.0 Hemoglobin (Bld) [Mass/Vol] 10.0 g/dL below low threshold See Below [facility] [employer] 250 DO Work Phone: Comment on above: Reference Range: 12. 0 - 16.0 MCHC (RBC) [Mass/Vol] 33.0 g/dL See Below [facility] [employer] [facility] [employer] DO Work Phone: Comment on above: Reference Range: 32. 0 - 36.0 MCV (RBC) [Entitic vol] 90 fL 80 - 100 [facility] [employer] DO Work Phone: Platelets (Bld) [#/Vol] 454 10*3/uL above high threshold 150 - 450 [facility] kori Ostara DO Work Phone: RBC (Bld) [#/Vol] 3.36 {x10E12/L} below low threshold See Below [facility] [employer] DO Work Phone: Comment on above: Reference Range: 4.0 0 - 5.20 WBC (Bld) [#/Vol] 12.6 10*3/uL above high threshold 4.4 - 11.3 [facility] [employer] DO Work Phone: Magnesium, Serumon 2 Magnesium [Mass/Vol] 2.00 mg/dL See Below [facility] [employer] kori 250 DO Work Phone: Comment on above: Reference Range: 1.6 0 - 2.40 No Panel Informationon 01-26 0.0 {/100_WBC} 0.0-0.0 [facility] [employer] DO Work Phone: Renal Function Panelon 01-26 Albumin BCP dye [Mass/Vol] 3.1 g/dL below low threshold 3.4 - 5.0 [facility] kori Ostara DO Work Phone: Anion gap [Moles/Vol] 16 mmol/L 10 - 20 [facility] 250 DO Work Phone: Calcium [Mass/Vol] 8.7 mg/dL 8.6 - 10.6 [facility] kori 250 DO Work Phone: Chloride [Moles/Vol] 92 mmol/L below low threshold 98 - 107 [facility] 250 DO Work Phone: CO2 [Moles/Vol] 24 mmol/L 21 - 32 [facility] 250 DO Work Phone: Creatinine [Mass/Vol] 0.82 mg/dL See Below [facility] 250 DO Work Phone: Comment on above: Reference Range: 0.5 0 - 1.05 Glucose [Mass/Vol] 113 mg/dL above high threshold 74 - 99 [facility] 250 DO Work Phone: Phosphate [Mass/Vol] 4.2 mg/dL 2.5 - 4.9 [facility] kori 250 DO Work Phone: Comment on above: The performance andra acteristics of phosphorus testing in heparinized plasma have been validated by the individual laboratory site where testing is performed. Testing on heparinized plasma is not approved by the FDA; however, such approval is not necessary. Potassium [Moles/Vol] 4.3 mmol/L 3.5 - 5.3 [facility] kori 250 DO Work Phone: Sodium [Moles/Vol] 128 mmol/L below low threshold 136 - 145 [facility] 250 DO Work Phone: Urea nitrogen [Mass/Vol] 46 mg/dL above high threshold 6 - 23 [facility] 250 DO Work Phone: Renal Function Panel 72 {mL/min/1.73m2} >90 [facility] 250 DO Work Phone: Comment on above: CALCULATIONS OF MOISES MATED GFR ARE PERFORMED USING THE 2020 CKD-EPI STUDY REFIT EQUATION WITHOUT THE RACE VARIABLE FOR THE IDMS-TRACEABLE CREATININE METHODS.https://jasn.asnjournals.org/content//A SN.6251016662 Albumin BCP dye [Mass/Vol] 2.9 g/dL below low threshold 3.4 - 5.0 [facility] [employer] DO Work Phone: Anion gap [Moles/Vol] 14 mmol/L 10 - 20 [place] [address] DO Work Phone: Calcium [Mass/Vol] 8.4 mg/dL below low threshold 8.6 - 10.6 [place] [address] DO Work Phone: Chloride [Moles/Vol] 92 mmol/L below low threshold 98 - 107 [facility] kori Ostara DO Work Phone: CO2 [Moles/Vol] 25 mmol/L 21 - 32 [place] [address] DO Work Phone: Creatinine [Mass/Vol] 0.73 mg/dL See Below [place] [address] DO Work Phone: Comment on above: Reference Range: 0.5 0 - 1.05 Glucose [Mass/Vol] 79 mg/dL 74 - 99 [facility] [employer] 250 DO Work Phone: Phosphate [Mass/Vol] 4.4 mg/dL 2.5 - 4.9 [facility] [employer] kori 250 DO Work Phone: Comment on above: The performance andra acteristics of phosphorus testing in heparinized plasma have been validated by the individual laboratory site where testing is performed. Testing on heparinized plasma is not approved by the FDA; however, such approval is not necessary. Potassium [Moles/Vol] 5.2 mmol/L 3.5 - 5.3 [facility] kori 250 DO Work Phone: Sodium [Moles/Vol] 126 mmol/L below low threshold 136 - 145 [facility] [employer] DO Work Phone: Urea nitrogen [Mass/Vol] 40 mg/dL above high threshold 6 - 23 [facility] kori Ostara DO Work Phone: Renal Function Panel 83 {mL/min/1.73m2} >90 [facility] [employer] DO Work Phone: Comment on above: CALCULATIONS OF MOISES MATED GFR ARE PERFORMED USING THE 2020 CKD-EPI STUDY REFIT EQUATION WITHOUT THE RACE VARIABLE FOR THE IDMS-TRACEABLE CREATININE METHODS.https://jasn.asnjournals.org/content/early//A SN.0336298446 Laboratory - Hematology and Cell countson 01-25-2022 Erythrocyte distribution width (RBC) [Ratio] 15.2 % above high threshold See Below [facility] [employer] DO Work Phone: Comment on above: Reference Range: 11. 5 - 14.5 Hematocrit (Bld) [Volume fraction] 29.7 % below low threshold See Below [facility] [employer] DO Work Phone: Comment on above: Reference Range: 36. 0 - 46.0 Hemoglobin (Bld) [Mass/Vol] 9.9 g/dL below low threshold See Below [facility] [employer] DO Work Phone: Comment on above: Reference Range: 12. 0 - 16.0 MCHC (RBC) [Mass/Vol] 33.3 g/dL See Below [facility] [employer] DO Work Phone: Comment on above: Reference Range: 32. 0 - 36.0 MCV (RBC) [Entitic vol] 89 fL 80 - 100 [facility] kori Ostara DO Work Phone: Platelets (Bld) [#/Vol] 490 10*3/uL above high threshold 150 - 450 [facility] [employer] kori 250 DO Work Phone: RBC (Bld) [#/Vol] 3.33 {x10E12/L} below low threshold See Below [facility] [employer]Vin[employer] padillay Jhonny DO Work Phone: Comment on above: Reference Range: 4.0 0 - 5.20 WBC (Bld) [#/Vol] 15.4 10*3/uL above high threshold 4.4 - 11.3 [facility] [employer] kori 250 DO Work Phone: Magnesium, Serumon 2 Magnesium [Mass/Vol] 1.89 mg/dL See Below [facility] Pitt[employer]lloGuerita kori 250 DO Work Phone: Comment on above: Reference Range: 1.6 0 - 2.40 No Panel Informationon 01-25 0.0 {/100_WBC} 0.0-0.0 [facility] Ost[place] DO Work Phone: Renal Function Panelon 01-25 Albumin BCP dye [Mass/Vol] 3.1 g/dL below low threshold 3.4 - 5.0 [facility] Ostara DO Work Phone: Anion gap [Moles/Vol] 16 mmol/L 10 - 20 [facility] Ostara DO Work Phone: Calcium [Mass/Vol] 8.5 mg/dL below low threshold 8.6 - 10.6 [facility] Ostara DO Work Phone: Chloride [Moles/Vol] 91 mmol/L below low threshold 98 - 107 [facility] Ostara DO Work Phone: CO2 [Moles/Vol] 22 mmol/L 21 - 32 [facility] Ostara DO Work Phone: Creatinine [Mass/Vol] 0.72 mg/dL See Below [facility] Ostara DO Work Phone: Comment on above: Reference Range: 0.5 0 - 1.05 Glucose [Mass/Vol] 94 mg/dL 74 - 99 [employer] 250 DO Work Phone: Phosphate [Mass/Vol] 4.5 mg/dL 2.5 - 4.9 [facility] kori 250 DO Work Phone: Comment on above: The performance andra acteristics of phosphorus testing in heparinized plasma have been validated by the individual laboratory site where testing is performed. Testing on heparinized plasma is not approved by the FDA; however, such approval is not necessary. Potassium [Moles/Vol] 5.1 mmol/L 3.5 - 5.3 [place] [address] DO Work Phone: Sodium [Moles/Vol] 124 mmol/L below low threshold 136 - 145 [place] [address] DO Work Phone: Urea nitrogen [Mass/Vol] 40 mg/dL above high threshold 6 - 23 [place] [address] DO Work Phone: Renal Function Panel 84 {mL/min/1.73m2} >90 [place] [address] DO Work Phone: Comment on above: CALCULATIONS OF MOISES MATED GFR ARE PERFORMED USING THE 2020 CKD-EPI STUDY REFIT EQUATION WITHOUT THE RACE VARIABLE FOR THE IDMS-TRACEABLE CREATININE METHODS.https://jasn.asnjournals.org/content/early/A .4517453489 Albumin BCP dye [Mass/Vol] 3.1 g/dL below low threshold 3.4 - 5.0 [facility] Ostara DO Work Phone: Anion gap [Moles/Vol] 15 mmol/L 10 - 20 [place] [address] DO Work Phone: Calcium [Mass/Vol] 8.6 mg/dL 8.6 - 10.6 [employer] 250 DO Work Phone: Chloride [Moles/Vol] 92 mmol/L below low threshold 98 - 107 [facility] 250 DO Work Phone: CO2 [Moles/Vol] 21 mmol/L 21 - 32 [place] [address] DO Work Phone: Creatinine [Mass/Vol] 0.74 mg/dL See Below [place] [address] DO Work Phone: Comment on above: Reference Range: 0.5 0 - 1.05 Glucose [Mass/Vol] 85 mg/dL 74 - 99 [employer] 250 DO Work Phone: Phosphate [Mass/Vol] 3.9 mg/dL 2.5 - 4.9 [facility] 250 DO Work Phone: Comment on above: The performance andra acteristics of phosphorus testing in heparinized plasma have been validated by the individual laboratory site where testing is performed. Testing on heparinized plasma is not approved by the FDA; however, such approval is not necessary. Potassium [Moles/Vol] 5.3 mmol/L 3.5 - 5.3 [place] [address] DO Work Phone: Sodium [Moles/Vol] 123 mmol/L below low threshold 136 - 145 [place] [address] DO Work Phone: Urea nitrogen [Mass/Vol] 17 mg/dL 6 - 23 [place] [address] DO Work Phone: Renal Function Panel 82 {mL/min/1.73m2} >90 [place] [address] DO Work Phone: Comment on above: CALCULATIONS OF MOISES MATED GFR ARE PERFORMED USING THE 2020 CKD-EPI STUDY REFIT EQUATION WITHOUT THE RACE VARIABLE FOR THE IDMS-TRACEABLE CREATININE METHODS.https://jasn.asnjournals.org/content//A SN.1586292083 Cortisol, Unspecifiedon 11-2 Cortisol [Mass/Vol] 18.4 ug/dL 2.5 - 20.0 -No [place] [address] DO Work Phone: Laboratory - Chemistry and C hemistry - challengeon 01-24-2022 Creatinine (U) [Mass/Vol] 71.9 mg/dL See Below [place] [address] DO Work Phone: Comment on above: Reference Range: 20. 0 - 320.0 Osmolality (U) [Osmolality] 646 mosm/kg 200 - 1200 [place] [address] DO Work Phone: Potassium (U) [Moles/Vol] 48 mmol/L See Below [place] [address] DO Work Phone: Comment on above: Reference Range: Not Established Potassium/Creatinine (U) [Molar ratio] 67 {mmol/g_Creat} See Below [place] [address] DO Work Phone: Comment on above: Reference Range: Not Established Sodium (U) [Moles/Vol] 131 mmol/L See Below [place] [address] DO Work Phone: Comment on above: Reference Range: Not Established Sodium/Creatinine (U) [Ratio] 182 {mmol/g_Creat} See Below [place] [address] DO Work Phone: Comment on above: Reference Range: Not Established Urea nitrogen (U) [Mass/Vol] 671 mg/dL See Below [place] [address] DO Work Phone: Comment on above: Reference Range: Not Established Urea/Creatinine (U) [Molar ratio] 9.3 {g/g_Creat} See Below [place] [address] DO Work Phone: Comment on above: Reference Range: Not Established Laboratory - Hematology and Cell countson 01-24-2022 Erythrocyte distribution width (RBC) [Ratio] 15.2 % above high threshold See Below [facility] 250 DO Work Phone: Comment on above: Reference Range: 11. 5 - 14.5 Hematocrit (Bld) [Volume fraction] 29.8 % below low threshold See Below [facility] [employer] 250 DO Work Phone: Comment on above: Reference Range: 36. 0 - 46.0 Hemoglobin (Bld) [Mass/Vol] 10.0 g/dL below low threshold See Below [facility] [employer] kori 250 DO Work Phone: Comment on above: Reference Range: 12. 0 - 16.0 MCHC (RBC) [Mass/Vol] 33.6 g/dL See Below [facility]lloNew [facility] HospitalBeyond [facility] DO Work Phone: Comment on above: Reference Range: 32. 0 - 36.0 MCV (RBC) [Entitic vol] 89 fL 80 - 100 [facility] Ostara DO Work Phone: Platelets (Bld) [#/Vol] 463 10*3/uL above high threshold 150 - 450 [facility] Ostara DO Work Phone: RBC (Bld) [#/Vol] 3.33 {x10E12/L} below low threshold See Below [facility] [employer] DO Work Phone: Comment on above: Reference Range: 4.0 0 - 5.20 WBC (Bld) [#/Vol] 12.6 10*3/uL above high threshold 4.4 - 11.3 [facility] [employer] k[employer] 250 DO Work Phone: Magnesium, Serumon 2 Magnesium [Mass/Vol] 1.85 mg/dL See Below [facility] [employer]ori 250 DO Work Phone: Comment on above: Reference Range: 1.6 0 - 2.40 No Panel Informationon 01-24 210 {mmol/g_Creat} 38 - 318 [facility] [employer] 250 DO Work Phone: 151 mmol/L See Below [facility] [employer] kori 250 DO Work Phone: Comment on above: Reference Range: Not Established 0.0 {/100_WBC} 0.0-0.0 [facility] 250 DO Work Phone: Osmolality, Serumon 01-25-20 22 Osmolality [Osmolality] 260 {mOsm/kg_H2O} below low threshold 280 - 300 [facility] kori 250 DO Work Phone: Radiologyon 01-24-2022 XR Chest Single view Normal [facility] 250 DO Work Phone: Renal Function Panelon 01-24 Albumin BCP dye [Mass/Vol] 3.0 g/dL below low threshold 3.4 - 5.0 [place] [address] DO Work Phone: Anion gap [Moles/Vol] 13 mmol/L 10 - 20 [facility] kori 250 DO Work Phone: Calcium [Mass/Vol] 8.2 mg/dL below low threshold 8.6 - 10.6 [facility] 250 DO Work Phone: Chloride [Moles/Vol] 95 mmol/L below low threshold 98 - 107 [place] [address] DO Work Phone: CO2 [Moles/Vol] 20 mmol/L below low threshold 21 - 32 [facility] 250 DO Work Phone: Creatinine [Mass/Vol] 0.73 mg/dL See Below [facility] 250 DO Work Phone: Comment on above: Reference Range: 0.5 0 - 1.05 Glucose [Mass/Vol] 88 mg/dL 74 - 99 [facility] [employer] 250 DO Work Phone: Phosphate [Mass/Vol] 3.4 mg/dL 2.5 - 4.9 [facility] [employer] DO Work Phone: Comment on above: The performance andra acteristics of phosphorus testing in heparinized plasma have been validated by the individual laboratory site where testing is performed. Testing on heparinized plasma is not approved by the FDA; however, such approval is not necessary. Potassium [Moles/Vol] 5.1 mmol/L 3.5 - 5.3 [facility] kori Ostara DO Work Phone: Sodium [Moles/Vol] 123 mmol/L below low threshold 136 - 145 [place] [address] DO Work Phone: Urea nitrogen [Mass/Vol] 17 mg/dL 6 - 23 [place] [address] DO Work Phone: Renal Function Panel 83 {mL/min/1.73m2} >90 [place] [address] DO Work Phone: Comment on above: CALCULATIONS OF MOISES MATED GFR ARE PERFORMED USING THE 2020 CKD-EPI STUDY REFIT EQUATION WITHOUT THE RACE VARIABLE FOR THE IDMS-TRACEABLE CREATININE METHODS.https://jasn.asnjournals.org/content//A .1712254365 Laboratory - Hematology and Cell countson 01-23-2022 Erythrocyte distribution width (RBC) [Ratio] 15.5 % above high threshold See Below [facility] kori Ostara DO Work Phone: Comment on above: Reference Range: 11. 5 - 14.5 Hematocrit (Bld) [Volume fraction] 32.9 % below low threshold See Below [facility] Ostara DO Work Phone: Comment on above: Reference Range: 36. 0 - 46.0 Hemoglobin (Bld) [Mass/Vol] 10.6 g/dL below low threshold See Below [facility] kori Ostara DO Work Phone: Comment on above: Reference Range: 12. 0 - 16.0 MCHC (RBC) [Mass/Vol] 32.2 g/dL See Below [facility] Sai sheikh 250 DO Work Phone: Comment on above: Reference Range: 32. 0 - 36.0 MCV (RBC) [Entitic vol] 95 fL 80 - 100 [facility] Sai sheikh 250 DO Work Phone: Platelets (Bld) [#/Vol] 420 10*3/uL 150 - 450 [facility] kori 250 DO Work Phone: RBC (Bld) [#/Vol] 3.47 {x10E12/L} below low threshold See Below [facility] kori Jhonny DO Work Phone: Comment on above: Reference Range: 4.0 0 - 5.20 WBC (Bld) [#/Vol] 11.9 10*3/uL above high threshold 4.4 - 11.3 [facility] kori Jhonny DO Work Phone: Magnesium, Serumon 2 Magnesium [Mass/Vol] 1.95 mg/dL See Below [facility] [employer] 250 DO Work Phone: Comment on above: Reference Range: 1.6 0 - 2.40 No Panel Informationon 01-23 0.0 {/100_WBC} 0.0-0.0 [facility] k[facility] Jhonny DO Work Phone: Renal Function Panelon 01-23 Albumin BCP dye [Mass/Vol] 2.9 g/dL below low threshold 3.4 - 5.0 [facility] Ostara DO Work Phone: Anion gap [Moles/Vol] 14 mmol/L 10 - 20 [facility] Ostara DO Work Phone: Calcium [Mass/Vol] 8.5 mg/dL below low threshold 8.6 - 10.6 [facility] kori Jhonny DO Work Phone: Chloride [Moles/Vol] 96 mmol/L below low threshold 98 - 107 [facility] k[facility] Ostara DO Work Phone: CO2 [Moles/Vol] 20 mmol/L below low threshold 21 - 32 [facility] 250 DO Work Phone: Creatinine [Mass/Vol] 0.80 mg/dL See Below [place] [address] DO Work Phone: Comment on above: Reference Range: 0.5 0 - 1.05 Glucose [Mass/Vol] 78 mg/dL 74 - 99 [facility] kori 250 DO Work Phone: Phosphate [Mass/Vol] 4.2 mg/dL 2.5 - 4.9 [facility] [employer] [facility] kori 250 DO Work Phone: Comment on above: The performance andra acteristics of phosphorus testing in heparinized plasma have been validated by the individual laboratory site where testing is performed. Testing on heparinized plasma is not approved by the FDA; however, such approval is not necessary. Potassium [Moles/Vol] 5.4 mmol/L above high threshold 3.5 - 5.3 [place] [address] DO Work Phone: Sodium [Moles/Vol] 125 mmol/L below low threshold 136 - 145 [place] [address] DO Work Phone: Urea nitrogen [Mass/Vol] 15 mg/dL 6 - 23 [place] [address] DO Work Phone: Renal Function Panel 74 {mL/min/1.73m2} >90 [place] [address] DO Work Phone: Comment on above: CALCULATIONS OF MOISES MATED GFR ARE PERFORMED USING THE 2020 CKD-EPI STUDY REFIT EQUATION WITHOUT THE RACE VARIABLE FOR THE IDMS-TRACEABLE CREATININE METHODS.https://jasn.asnjournals.org/content//A SN.6621239915 Coronavirus 2019 RNA by PCR, Screening Asymptomticon 01-22-2022 Coronavirus 2019 RNA by PCR, Screening Asymptomtic Not detected Normal See Below [facility] [employer] DO Work Phone: Comment on above: SOURCE: [...] this test method. Fact sheet for providers: www.fda.gov/media/200644/downloadFact sheet for patients: www.Buxfer.gov/media/639117/downloadThis test has received FDA Emergency Use Authorization (EUA) and has been verified by [facility] ([facility]). This test is only authorized for the duration of time that circumstances exist to justify the authorization of the emergency use of in vitro diagnostic tests for the detection of SARS-CoV-2 virus and/or diagnosis of COVID-19 infection under section 564(b)(1) of the Act, 21 U.S.C. 360bbb-3(b)(1), unless the authorization is terminated or revoked sooner. [facility] is certified under CLIA-88 as qualified to perform high complexity testing. Testing is performed in the [facility] laboratories located at [address] [place] [address]. Laboratory - Hematology and Cell countson 01-22-2022 Erythrocyte distribution width (RBC) [Ratio] 15.2 % above high threshold See Below [facility] [employer] DO Work Phone: Comment on above: Reference Range: 11. 5 - 14.5 Hematocrit (Bld) [Volume fraction] 31.2 % below low threshold See Below [facility] [employer] DO Work Phone: Comment on above: Reference Range: 36. 0 - 46.0 Hemoglobin (Bld) [Mass/Vol] 10.0 g/dL below low threshold See Below [facility] [employer] DO Work Phone: Comment on above: Reference Range: 12. 0 - 16.0 MCHC (RBC) [Mass/Vol] 32.1 g/dL See Below [facility] [employer] kori 250 DO Work Phone: Comment on above: Reference Range: 32. 0 - 36.0 MCV (RBC) [Entitic vol] 94 fL 80 - 100 [facility] [employer] DO Work Phone: Platelets (Bld) [#/Vol] 409 10*3/uL 150 - 450 [facility] [employer] DO Work Phone: RBC (Bld) [#/Vol] 3.33 {x10E12/L} below low threshold See Below [facility] [employer] DO Work Phone: Comment on above: Reference Range: 4.0 0 - 5.20 WBC (Bld) [#/Vol] 12.4 10*3/uL above high threshold 4.4 - 11.3 [facility] [employer] DO Work Phone: Magnesium, Serumon 2 Magnesium [Mass/Vol] 1.94 mg/dL See Below [facility] [employer] kori 250 DO Work Phone: Comment on above: Reference Range: 1.6 0 - 2.40 No Panel Informationon 01-22 0.0 {/100_WBC} 0.0-0.0 [facility] Pitt[employer]lloGuerita [employer] DO Work Phone: Renal Function Panelon 01-22 Albumin BCP dye [Mass/Vol] 3.1 g/dL below low threshold 3.4 - 5.0 [facility] [employer] DO Work Phone: Anion gap [Moles/Vol] 13 mmol/L 10 - 20 [facility] [employer] DO Work Phone: Calcium [Mass/Vol] 8.7 mg/dL 8.6 - 10.6 [facility] 250 DO Work Phone: Chloride [Moles/Vol] 97 mmol/L below low threshold 98 - 107 [place] [address] DO Work Phone: CO2 [Moles/Vol] 19 mmol/L below low threshold 21 - 32 [place] [address] DO Work Phone: Creatinine [Mass/Vol] 0.81 mg/dL See Below [place] [address] DO Work Phone: Comment on above: Reference Range: 0.5 0 - 1.05 Glucose [Mass/Vol] 90 mg/dL 74 - 99 [employer] Ostara DO Work Phone: Phosphate [Mass/Vol] 4.3 mg/dL 2.5 - 4.9 [facility] Ostara DO Work Phone: Comment on above: The performance andra acteristics of phosphorus testing in heparinized plasma have been validated by the individual laboratory site where testing is performed. Testing on heparinized plasma is not approved by the FDA; however, such approval is not necessary. Potassium [Moles/Vol] 5.3 mmol/L 3.5 - 5.3 [place] [address] DO Work Phone: Urea nitrogen [Mass/Vol] 15 mg/dL 6 - 23 [place] [address] DO Work Phone: Renal Function Panel 73 {mL/min/1.73m2} >90 [place] [address] DO Work Phone: Comment on above: CALCULATIONS OF MOISES MATED GFR ARE PERFORMED USING THE 2020 CKD-EPI STUDY REFIT EQUATION WITHOUT THE RACE VARIABLE FOR THE IDMS-TRACEABLE CREATININE METHODS.https://jasn.asnjournals.org/content//A SN.2337248052 Albumin BCP dye [Mass/Vol] 2.8 g/dL below low threshold 3.4 - 5.0 [place] [address] DO Work Phone: Anion gap [Moles/Vol] 14 mmol/L 10 - 20 [facility] kori 250 DO Work Phone: Calcium [Mass/Vol] 7.9 mg/dL below low threshold 8.6 - 10.6 [facility] kori 250 DO Work Phone: Chloride [Moles/Vol] 96 mmol/L below low threshold 98 - 107 [facility] kori 250 DO Work Phone: CO2 [Moles/Vol] 20 mmol/L below low threshold 21 - 32 [place] [address] DO Work Phone: Creatinine [Mass/Vol] 0.77 mg/dL See Below [place] [address] DO Work Phone: Comment on above: Reference Range: 0.5 0 - 1.05 Glucose [Mass/Vol] 79 mg/dL 74 - 99 [facility] [employer] DO Work Phone: Phosphate [Mass/Vol] 3.9 mg/dL 2.5 - 4.9 [facility] [employer] DO Work Phone: Comment on above: The performance andra acteristics of phosphorus testing in heparinized plasma have been validated by the individual laboratory site where testing is performed. Testing on heparinized plasma is not approved by the FDA; however, such approval is not necessary. Potassium [Moles/Vol] 5.8 mmol/L above high threshold 3.5 - 5.3 [facility] kori Ostara DO Work Phone: Sodium [Moles/Vol] 124 mmol/L below low threshold 136 - 145 [facility] 250 DO Work Phone: Urea nitrogen [Mass/Vol] 11 mg/dL 6 - 23 [place] [address] DO Work Phone: Renal Function Panel 78 {mL/min/1.73m2} >90 [facility] [employer] DO Work Phone: Comment on above: CALCULATIONS OF MOISES MATED GFR ARE PERFORMED USING THE 2020 CKD-EPI STUDY REFIT EQUATION WITHOUT THE RACE VARIABLE FOR THE IDMS-TRACEABLE CREATININE METHODS.https://jasn.asnjournals.org/content/early/A SN.1273015303 Laboratory - Hematology and Cell countson 01-21-2022 Erythrocyte distribution width (RBC) [Ratio] 14.8 % above high threshold See Below [facility] [employer] DO Work Phone: Comment on above: Reference Range: 11. 5 - 14.5 Hematocrit (Bld) [Volume fraction] 33.4 % below low threshold See Below [facility] [employer] DO Work Phone: Comment on above: Reference Range: 36. 0 - 46.0 Hemoglobin (Bld) [Mass/Vol] 10.8 g/dL below low threshold See Below [facility] [employer] DO Work Phone: Comment on above: Reference Range: 12. 0 - 16.0 MCHC (RBC) [Mass/Vol] 32.3 g/dL See Below [facility] [employer] DO Work Phone: Comment on above: Reference Range: 32. 0 - 36.0 MCV (RBC) [Entitic vol] 91 fL 80 - 100 [facility] [employer] DO Work Phone: Platelets (Bld) [#/Vol] 393 10*3/uL 150 - 450 [facility] kori Ostara DO Work Phone: RBC (Bld) [#/Vol] 3.67 {x10E12/L} below low threshold See Below [facility] [employer] DO Work Phone: Comment on above: Reference Range: 4.0 0 - 5.20 WBC (Bld) [#/Vol] 13.1 10*3/uL above high threshold 4.4 - 11.3 [facility] kori 250 DO Work Phone: Magnesium, Serumon 2 Magnesium [Mass/Vol] 1.94 mg/dL See Below [facility] kori 250 DO Work Phone: Comment on above: Reference Range: 1.6 0 - 2.40 No Panel Informationon 01-21 0.0 {/100_WBC} 0.0-0.0 [facility] kori 250 DO Work Phone: Renal Function Panelon 01-21 Albumin BCP dye [Mass/Vol] 3.1 g/dL below low threshold 3.4 - 5.0 [place] [address] DO Work Phone: Anion gap [Moles/Vol] 14 mmol/L 10 - 20 [place] [address] DO Work Phone: Calcium [Mass/Vol] 8.1 mg/dL below low threshold 8.6 - 10.6 [facility] Ostara DO Work Phone: Chloride [Moles/Vol] 93 mmol/L below low threshold 98 - 107 [facility] Ostara DO Work Phone: CO2 [Moles/Vol] 20 mmol/L below low threshold 21 - 32 [place] [address] DO Work Phone: Creatinine [Mass/Vol] 0.70 mg/dL See Below [facility] Ostara DO Work Phone: Comment on above: Reference Range: 0.5 0 - 1.05 Glucose [Mass/Vol] 117 mg/dL above high threshold 74 - 99 [facility] Ostara DO Work Phone: Phosphate [Mass/Vol] 2.9 mg/dL 2.5 - 4.9 [facility] kori 250 DO Work Phone: Comment [...] Potassium [Moles/Vol] 5.1 mmol/L 3.5 - 5.3 [facility] [employer] DO Work Phone: Comment on above: MILD HEMOLYSIS DETEC ABENA. The result may be falsely elevated due tohemolysis or other interferents. Clinical correlation is recommended.Repeat testing may be considered. Sodium [Moles/Vol] 122 mmol/L below low threshold 136 - 145 [facility] [employer] DO Work Phone: Urea nitrogen [Mass/Vol] 8 mg/dL 6 - 23 [facility] kori Ostara DO Work Phone: Renal Function Panel 87 {mL/min/1.73m2} >90 [facility] kori Ostara DO Work Phone: Comment on above: CALCULATIONS OF MOISES MATED GFR ARE PERFORMED USING THE 2020 CKD-EPI STUDY REFIT EQUATION WITHOUT THE RACE VARIABLE FOR THE IDMS-TRACEABLE CREATININE METHODS.https://jasn.asnjournals.org/content//A .4663608032 Laboratory - Hematology and Cell countson 01-20-2022 Erythrocyte distribution width (RBC) [Ratio] 14.2 % See Below [facility] [employer] DO Work Phone: Comment on above: Reference Range: 11. 5 - 14.5 Hematocrit (Bld) [Volume fraction] 30.7 % below low threshold See Below [facility] [employer] DO Work Phone: Comment on above: Reference Range: 36. 0 - 46.0 Hemoglobin (Bld) [Mass/Vol] 11.1 g/dL below low threshold See Below [facility] [employer] DO Work Phone: Comment on above: Reference Range: 12. 0 - 16.0 MCHC (RBC) [Mass/Vol] 36.2 g/dL above high threshold See Below [facility] PittarelloMacarena kori 250 DO Work Phone: Comment on above: Reference Range: 32. 0 - 36.0 MCV (RBC) [Entitic vol] 84 fL 80 - 100 [facility] 250 DO Work Phone: Platelets (Bld) [#/Vol] 382 10*3/uL 150 - 450 [facility] 250 DO Work Phone: RBC (Bld) [#/Vol] 3.65 {x10E12/L} below low threshold See Below [facility] Jhonny DO Work Phone: Comment on above: Reference Range: 4.0 0 - 5.20 WBC (Bld) [#/Vol] 14.9 10*3/uL above high threshold 4.4 - 11.3 [facility] kori Ostara DO Work Phone: Magnesium, Serumon 2 Magnesium [Mass/Vol] 1.77 mg/dL See Below [facility] Pitt[employer]lloGuerita kori 250 DO Work Phone: Comment on above: Reference Range: 1.6 0 - 2.40 No Panel Informationon 01-20 0.0 {/100_WBC} 0.0-0.0 [facility] 250 DO Work Phone: Radiologyon 01-20-2022 XR Chest 2 Views Normal [place] [address] DO Work Phone: Renal Function Panelon 01-20 Albumin BCP dye [Mass/Vol] 3.1 g/dL below low threshold 3.4 - 5.0 [place] [address] DO Work Phone: Anion gap [Moles/Vol] 12 mmol/L 10 - 20 [facility] 250 DO Work Phone: Calcium [Mass/Vol] 8.2 mg/dL below low threshold 8.6 - 10.6 [place] [address] DO Work Phone: Chloride [Moles/Vol] 92 mmol/L below low threshold 98 - 107 [place] [address] DO Work Phone: CO2 [Moles/Vol] 22 mmol/L 21 - 32 [place] [address] DO Work Phone: Creatinine [Mass/Vol] 0.71 mg/dL See Below [place] [address] DO Work Phone: Comment on above: Reference Range: 0.5 0 - 1.05 Glucose [Mass/Vol] 77 mg/dL 74 - 99 [facility] kori Ostara DO Work Phone: Phosphate [Mass/Vol] 3.2 mg/dL 2.5 - 4.9 [facility] kori Ostara DO Work Phone: Comment on above: The performance andra acteristics of phosphorus testing in heparinized plasma have been validated by the individual laboratory site where testing is performed. Testing on heparinized plasma is not approved by the FDA; however, such approval is not necessary. Potassium [Moles/Vol] 4.4 mmol/L 3.5 - 5.3 [place] [address] DO Work Phone: Sodium [Moles/Vol] 122 mmol/L below low threshold 136 - 145 [place] [address] DO Work Phone: Urea nitrogen [Mass/Vol] 9 mg/dL 6 - 23 [place] [address] DO Work Phone: Renal Function Panel 86 {mL/min/1.73m2} >90 [place] [address] DO Work Phone: Comment on above: CALCULATIONS OF MOISES MATED GFR ARE PERFORMED USING THE 2020 CKD-EPI STUDY REFIT EQUATION WITHOUT THE RACE VARIABLE FOR THE IDMS-TRACEABLE CREATININE METHODS.https://jasn.asnjournals.org/content//A .7332130846 Albumin BCP dye [Mass/Vol] 3.1 g/dL below low threshold 3.4 - 5.0 [facility] kori Ostara DO Work Phone: Anion gap [Moles/Vol] 16 mmol/L 10 - 20 [place] [address] DO Work Phone: Calcium [Mass/Vol] 8.1 mg/dL below low threshold 8.6 - 10.6 [place] [address] DO Work Phone: Chloride [Moles/Vol] 91 mmol/L below low threshold 98 - 107 [place] [address] DO Work Phone: CO2 [Moles/Vol] 19 mmol/L below low threshold 21 - 32 [place] [address] DO Work Phone: Creatinine [Mass/Vol] 0.64 mg/dL See Below [place] [address] DO Work Phone: Comment on above: Reference Range: 0.5 0 - 1.05 Glucose [Mass/Vol] 72 mg/dL below low threshold 74 - 99 [place] [address] DO Work Phone: Phosphate [Mass/Vol] 3.6 mg/dL 2.5 - 4.9 [facility] kori Ostara DO Work Phone: Comment on above: The performance andra acteristics of phosphorus testing in heparinized plasma have been validated by the individual laboratory site where testing is performed. Testing on heparinized plasma is not approved by the FDA; however, such approval is not necessary. Potassium [Moles/Vol] 4.9 mmol/L 3.5 - 5.3 [place] [address] DO Work Phone: Sodium [Moles/Vol] 121 mmol/L below low threshold 136 - 145 [facility] 250 DO Work Phone: Urea nitrogen [Mass/Vol] 8 mg/dL 6 - 23 [place] [address] DO Work Phone: Renal Function Panel 89 {mL/min/1.73m2} >90 [place] [address] DO Work Phone: Comment on above: CALCULATIONS OF MOISES MATED GFR ARE PERFORMED USING THE 2020 CKD-EPI STUDY REFIT EQUATION WITHOUT THE RACE VARIABLE FOR THE IDMS-TRACEABLE CREATININE METHODS.https://jasn.asnjournals.org/content/early/A SN.3424582463 Amylase, Body Fluidon 2021 Amylase (Body fld) [Catalytic activity/Vol] 10 U/L [place] [address] DO Work Phone: Comment on above: SOURCE: Pleural flui d (thoracentesis fld)REF VALUENOT ESTABLISHEDThe performance characteristics of this test have beenvalidated by the [facility] laboratory. This test has not been approved by the FDA; however, such approval is not necessary. Cell Count + Differential, B heather Fluidon 01-19-2022 WBC (Bld) [#/Vol] 0.614 10*3/uL [facility] 250 DO Work Phone: Cell Count + Differential, Body Fluid 100 1 [facility] 250 DO Work Phone: [phone] Cell Count + Differential, Body Fluid 1 % [facility] 250 DO Work Phone: Cell Count + Differential, Body Fluid 47 % [facility] 250 DO Work Phone: Cell Count + Differential, Body Fluid 16 % [facility] 250 DO Work Phone: Cell Count + Differential, Body Fluid 36 % [facility] 250 DO Work Phone: Cell Count + Differential, Body Fluid [id number] /uL [place] [address] DO Work Phone: [phone] Cell Count, Fluidon 01-20-20 22 WBC (Bld) [#/Vol] 0.605 10*3/uL [facility] 250 DO Work Phone: [phone] Cell Count, Fluid 936814 /uL [facility] 250 DO Work Phone: [phone] Cell Count, Fluid Cloudy CLEAR [facility] 250 DO Work Phone: [phone] Cell Count, Fluid Red YELLOW [facility] 250 DO Work Phone: Comment on above: SOURCE: Pleural flui d (thoracentesis fld) Cult, AFB, Misc.+ smearon Mycobacterium sp identified Org specific cx Nom (Unsp spec) [place] [address] DO Work Phone: Cult, Body Fluid, + smearon 01-19-2022 Bacteria identified Cx Nom (Body fld) [place] [address] DO Work Phone: Cult, Fungus +smearon 2021 Fungus identified Cx Nom (Unsp spec) [place] [address] DO Work Phone: Cult, Urineon 01-19-2022 Bacteria identified Cx Nom (U) Abnormal [place] [address] DO Work Phone: Glucose, Fluidon 01-19-2022 Glucose (Body fld) [Mass/Vol] 134 mg/dL [place] [address] DO Work Phone: Comment on above: SOURCE: Pleural flui d (thoracentesis fld)REF VALUENOT ESTABLISHEDThe performance characteristics of this test have beenvalidated by the [facility] laboratory. This test has not been approved by the FDA; however, such approval is not necessary. Laboratory - Chemistry and C hemistry - challengeon 01-19-2022 Creatinine (U) [Mass/Vol] 49.0 mg/dL See Below [place] [address] DO Work Phone: Comment on above: Reference Range: 20. 0 - 320.0 Osmolality (U) [Osmolality] 250 mosm/kg 200 - 1200 [place] [address] DO Work Phone: Potassium (U) [Moles/Vol] 27 mmol/L See Below [place] [address] DO Work Phone: Comment on above: Reference Range: Not Established Potassium/Creatinine (U) [Molar ratio] 55 {mmol/g_Creat} See Below [place] [address] DO Work Phone: Comment on above: Reference Range: Not Established Sodium (U) [Moles/Vol] 41 mmol/L See Below [place] [address] DO Work Phone: Comment on above: Reference Range: Not Established Sodium/Creatinine (U) [Ratio] 84 {mmol/g_Creat} See Below [place] [address] DO Work Phone: Comment on above: Reference Range: Not Established Urea nitrogen (U) [Mass/Vol] 250 mg/dL See Below [place] [address] DO Work Phone: Comment on above: Reference Range: Not Established Urea/Creatinine (U) [Molar ratio] 5.1 {g/g_Creat} See Below [place] [address] DO Work Phone: Comment on above: Reference Range: Not Established Laboratory - Hematology and Cell countson 01-19-2022 Erythrocyte distribution width (RBC) [Ratio] 14.6 % above high threshold See Below [place] [address] DO Work Phone: Comment on above: Reference Range: 11. 5 - 14.5 Hematocrit (Bld) [Volume fraction] 34.4 % below low threshold See Below [place] [address] DO Work Phone: Comment on above: Reference Range: 36. 0 - 46.0 Hemoglobin (Bld) [Mass/Vol] 11.6 g/dL below low threshold See Below [facility] Sai sheikh 250 DO Work Phone: Comment on above: Reference Range: 12. 0 - 16.0 MCHC (RBC) [Mass/Vol] 33.7 g/dL See Below [facility] NickGuerita kori 250 DO Work Phone: Comment on above: Reference Range: 32. 0 - 36.0 MCV (RBC) [Entitic vol] 89 fL 80 - 100 [facility] 250 DO Work Phone: Platelets (Bld) [#/Vol] 392 10*3/uL 150 - 450 [facility] DO Work Phone: RBC (Bld) [#/Vol] 3.85 {x10E12/L} below low threshold See Below [facility] Sai sheikh 250 DO Work Phone: Comment on above: Reference Range: 4.0 0 - 5.20 WBC (Bld) [#/Vol] 19.0 10*3/uL above high threshold 4.4 - 11.3 [facility] Sai padillay Jhonny DO Work Phone: Magnesium, Serumon 2 Magnesium [Mass/Vol] 1.74 mg/dL See Below [facility] Sai padillay 250 DO Work Phone: Comment on above: Reference Range: 1.6 0 - 2.40 No Panel Informationon 01-19 84 {mmol/g_Creat} 38 - 318 [facility] Sai sheikh 250 DO Work Phone: 41 mmol/L See Below [facility] NickGuerita kori Jhonny DO Work Phone: Comment on above: Reference Range: Not Established Normal [facility] Jhonny DO Work Phone: 230 U/L [facility] kori 250 DO Work Phone: Comment on above: SOURCE: Pleural flui d (thoracentesis fld)REF VALUENOT ESTABLISHEDThe performance characteristics of this test have beenvalidated by the [facility] laboratory. This test has not been approved by the FDA; however, such approval is not necessary. 0.0 {/100_WBC} 0.0-0.0 [facility] 250 DO Work Phone: Osmolality, Serumon 01-20-20 22 Osmolality [Osmolality] 252 {mOsm/kg_H2O} below low threshold 280 - 300 [place] [address] DO Work Phone: Radiologyon 01-19-2022 XR Chest Single view Normal [facility] 250 DO Work Phone: Renal Function Panelon 01-19 Albumin BCP dye [Mass/Vol] 3.3 g/dL below low threshold 3.4 - 5.0 [facility] Ostara DO Work Phone: Anion gap [Moles/Vol] 14 mmol/L 10 - 20 [facility] 250 DO Work Phone: Calcium [Mass/Vol] 7.5 mg/dL below low threshold 8.6 - 10.6 [place] [address] DO Work Phone: Chloride [Moles/Vol] 88 mmol/L below low threshold 98 - 107 [facility] 250 DO Work Phone: CO2 [Moles/Vol] 23 mmol/L 21 - 32 [facility] 250 DO Work Phone: Creatinine [Mass/Vol] 0.58 mg/dL See Below [facility] 250 DO Work Phone: Comment on above: Reference Range: 0.5 0 - 1.05 Glucose [Mass/Vol] 82 mg/dL 74 - 99 [facility] kori 250 DO Work Phone: Phosphate [Mass/Vol] 3.0 mg/dL 2.5 - 4.9 [facility] 250 DO Work Phone: Comment on above: The performance andra acteristics of phosphorus testing in heparinized plasma have been validated by the individual laboratory site where testing is performed. Testing on heparinized plasma is not approved by the FDA; however, such approval is not necessary. Potassium [Moles/Vol] 4.4 mmol/L 3.5 - 5.3 [place] [address] DO Work Phone: Sodium [Moles/Vol] 121 mmol/L below low threshold 136 - 145 [place] [address] DO Work Phone: Urea nitrogen [Mass/Vol] 8 mg/dL 6 - 23 [place] [address] DO Work Phone: Renal Function Panel >90 >90 [place] [address] DO Work Phone: Comment on above: CALCULATIONS OF MOISES MATED GFR ARE PERFORMED USING THE 2020 CKD-EPI STUDY REFIT EQUATION WITHOUT THE RACE VARIABLE FOR THE IDMS-TRACEABLE CREATININE METHODS.https://jasn.asnjournals.org/content//A SN.[id number] Albumin BCP dye [Mass/Vol] 3.1 g/dL below low threshold 3.4 - 5.0 [facility] 250 DO Work Phone: Anion gap [Moles/Vol] 16 mmol/L 10 - 20 [place] [address] DO Work Phone: Calcium [Mass/Vol] 7.9 mg/dL below low threshold 8.6 - 10.6 [place] [address] DO Work Phone: Chloride [Moles/Vol] 91 mmol/L below low threshold 98 - 107 [facility] 250 DO Work Phone: CO2 [Moles/Vol] 19 mmol/L below low threshold 21 - 32 [place] [address] DO Work Phone: Creatinine [Mass/Vol] 0.58 mg/dL See Below [place] [address] DO Work Phone: Comment on above: Reference Range: 0.5 0 - 1.05 Glucose [Mass/Vol] 125 mg/dL above high threshold 74 - 99 [place] [address] DO Work Phone: Phosphate [Mass/Vol] 3.0 mg/dL 2.5 - 4.9 [place] [address] DO Work Phone: Comment on above: The performance andra acteristics of phosphorus testing in heparinized plasma have been validated by the individual laboratory site where testing is performed. Testing on heparinized plasma is not approved by the FDA; however, such approval is not necessary. Potassium [Moles/Vol] 4.6 mmol/L 3.5 - 5.3 [place] [address] DO Work Phone: Sodium [Moles/Vol] 121 mmol/L below low threshold 136 - 145 [place] [address] DO Work Phone: Urea nitrogen [Mass/Vol] 9 mg/dL 6 - 23 [place] [address] DO Work Phone: Renal Function Panel >90 >90 [place] [address] DO Work Phone: Comment on above: CALCULATIONS OF MOISES MATED GFR ARE PERFORMED USING THE 2020 CKD-EPI STUDY REFIT EQUATION WITHOUT THE RACE VARIABLE FOR THE IDMS-TRACEABLE CREATININE METHODS.https://jasn.asnjournals.org/content//A SN.7295965736 Total Protein, Body Fluidon 01-19-2022 Protein (Body fld) [Mass/Vol] 2.7 g/dL [place] [address] DO Work Phone: Comment on above: SOURCE: Pleural flui d (thoracentesis fld)REF VALUENOT ESTABLISHEDThe performance characteristics of this test have beenvalidated by the [facility] laboratory. This test has not been approved by the FDA; however, such approval is not necessary. URINALYSIS WITH CULTURE IF I NDICATEDon 01-19-2022 Protein (U) [Mass/Vol] 100 (2+) Abnormal NEGATIVE [facility] [employer] 250 DO Work Phone: Specific gravity (U) [Rel density] 1.011 1 See Below [facility] [employer] 250 DO Work Phone: Comment on above: Reference Range: 1.0 05 - 1.035 Uric Acid, Serumon 2 Urate [Mass/Vol] 4.2 mg/dL 2.3 - 6.7 [facility] [employer] 250 DO Work Phone: Comment on above: Venipuncture immedia tely after or during the administration of Metamizole may lead to falsely low results. Testing should be performed immediately prior to Metamizole dosing. Urinalysison 01-19-2022 Color (U) YELLOW See Below [facility] [employer] 250 DO Work Phone: Comment on above: Reference Range: STR AW,YELLOW Glucose Ql (U) Negative NEGATIVE [facility] [employer] 250 DO Work Phone: Ketones Ql (U) Negative NEGATIVE [facility] [employer] 250 DO Work Phone: Leukocyte esterase Test strip Ql (U) LARGE (3+) Abnormal NEGATIVE [facility] [employer] 250 DO Work Phone: pH (U) 7.0 [pH] 5.0 - 8.0 [facility] [employer] 250 DO Work Phone: Protein (U) [Mass/Vol] 30 (1+) Abnormal NEGATIVE [facility] [employer] 250 DO Work Phone: RBC (U) [#/Vol] LARGE (3+) Abnormal NEGATIVE [facility] [employer] 250 DO Work Phone: Specific gravity (U) [Rel density] 1.010 1 See Below [facility] [employer] 250 DO Work Phone: Comment on above: Reference Range: 1.0 05 - 1.035 Urinalysis Negative NEGATIVE [facility] [employer] 250 DO Work Phone: Urinalysis <2.0 0.0 - 1.9 [facility] [employer] 250 DO Work Phone: Urinalysis HAZY CLEAR [facility] [employer] 250 DO Work Phone: Urinalysis, Microscopicon Urinalysis, Microscopic <1 [facility] [employer] 250 DO Work Phone: [phone] Urinalysis, Microscopic >182 Abnormal 0-5 [facility] [employer] 250 DO Work Phone: Urinalysis, Microscopic RARE [facility] [employer] 250 DO Work Phone: Urinalysis, Microscopic 1+ [facility] [employer] 250 DO Work Phone: Urinalysis, Microscopic 396 {/HPF} Abnormal 0-5 [facility] [employer] 250 DO Work Phone: Urinalysis, Microscopic 658 {/HPF} Abnormal 0-5 [facility] [employer] 250 DO Work Phone: Laboratory - Hematology and Cell countson 01-18-2022 Erythrocyte distribution width (RBC) [Ratio] 14.5 % See Below [facility] [employer] 250 DO Work Phone: Comment on above: Reference Range: 11. 5 - 14.5 Hematocrit (Bld) [Volume fraction] 35.0 % below low threshold See Below [facility] [employer] 250 DO Work Phone: Comment on above: Reference Range: 36. 0 - 46.0 Hemoglobin (Bld) [Mass/Vol] 11.7 g/dL below low threshold See Below [facility] [employer] 250 DO Work Phone: Comment on above: Reference Range: 12. 0 - 16.0 MCHC (RBC) [Mass/Vol] 33.4 g/dL See Below [facility] Ostara DO Work Phone: Comment on above: Reference Range: 32. 0 - 36.0 MCV (RBC) [Entitic vol] 90 fL 80 - 100 [facility] kori Ostara DO Work Phone: Platelets (Bld) [#/Vol] 390 10*3/uL 150 - 450 [facility] Ostara DO Work Phone: RBC (Bld) [#/Vol] 3.90 {x10E12/L} below low threshold See Below [facility] [employer] kori Ostara DO Work Phone: Comment on above: Reference Range: 4.0 0 - 5.20 WBC (Bld) [#/Vol] 14.4 10*3/uL above high threshold 4.4 - 11.3 [facility] [employer] kori Ostara DO Work Phone: Magnesium, Serumon 2 Magnesium [Mass/Vol] 1.82 mg/dL See Below [facility] [employer] 250 DO Work Phone: Comment on above: Reference Range: 1.6 0 - 2.40 No Panel Informationon 01-18 0.0 {/100_WBC} 0.0-0.0 [facility] k[facility] [place]ara DO Work Phone: Radiologyon 01-18-2022 XR Chest Single view Normal [facility] 250 DO Work Phone: Renal Function Panelon 01-18 Albumin BCP dye [Mass/Vol] 3.3 g/dL below low threshold 3.4 - 5.0 [facility] kori 250 DO Work Phone: Anion gap [Moles/Vol] 14 mmol/L 10 - 20 [facility] 250 DO Work Phone: Calcium [Mass/Vol] 8.2 mg/dL below low threshold 8.6 - 10.6 [place] [address] DO Work Phone: [phone] Chloride [Moles/Vol] 91 mmol/L below low threshold 98 - 107 [facility] 250 DO Work Phone: CO2 [Moles/Vol] 23 mmol/L 21 - 32 [place] [address] DO Work Phone: Creatinine [Mass/Vol] 0.73 mg/dL See Below [place] [address] DO Work Phone: Comment on above: Reference Range: 0.5 0 - 1.05 Glucose [Mass/Vol] 90 mg/dL 74 - 99 [facility] kori 250 DO Work Phone: Phosphate [Mass/Vol] 3.3 mg/dL 2.5 - 4.9 [facility] 250 DO Work Phone: Comment on above: The performance andra acteristics of phosphorus testing in heparinized plasma have been validated by the individual laboratory site where testing is performed. Testing on heparinized plasma is not approved by the FDA; however, such approval is not necessary. Potassium [Moles/Vol] 4.1 mmol/L 3.5 - 5.3 [facility] Ostara DO Work Phone: Sodium [Moles/Vol] 124 mmol/L below low threshold 136 - 145 [place] [address] DO Work Phone: Urea nitrogen [Mass/Vol] 10 mg/dL 6 - 23 [place] [address] DO Work Phone: Renal Function Panel 83 {mL/min/1.73m2} >90 [facility] [employer] DO Work Phone: Comment on above: CALCULATIONS OF MOISES MATED GFR ARE PERFORMED USING THE 2020 CKD-EPI STUDY REFIT EQUATION WITHOUT THE RACE VARIABLE FOR THE IDMS-TRACEABLE CREATININE METHODS.https://jasn.asnjournals.org/content//A SN.[email or web address] Laboratory - Hematology and Cell countson 01-17-2022 Erythrocyte distribution width (RBC) [Ratio] 14.4 % See Below [facility] [employer] DO Work Phone: Comment on above: Reference Range: 11. 5 - 14.5 Hematocrit (Bld) [Volume fraction] 33.4 % below low threshold See Below [facility] [employer] DO Work Phone: Comment on above: Reference Range: 36. 0 - 46.0 Hemoglobin (Bld) [Mass/Vol] 11.2 g/dL below low threshold See Below [facility] [employer] DO Work Phone: Comment on above: Reference Range: 12. 0 - 16.0 MCHC (RBC) [Mass/Vol] 33.5 g/dL See Below [facility] [employer] DO Work Phone: Comment on above: Reference Range: 32. 0 - 36.0 MCV (RBC) [Entitic vol] 90 fL 80 - 100 [facility] [employer] DO Work Phone: Platelets (Bld) [#/Vol] 325 10*3/uL 150 - 450 [facility] [employer] DO Work Phone: RBC (Bld) [#/Vol] 3.73 {x10E12/L} below low threshold See Below [facility] [employer] DO Work Phone: Comment on above: Reference Range: 4.0 0 - 5.20 WBC (Bld) [#/Vol] 13.2 10*3/uL above high threshold 4.4 - 11.3 [facility] [employer] kori 250 DO Work Phone: Magnesium, Serumon 2 Magnesium [Mass/Vol] 1.83 mg/dL See Below [facility] [employer] 250 DO Work Phone: Comment on above: Reference Range: 1.6 0 - 2.40 No Panel Informationon 01-17 0.0 {/100_WBC} 0.0-0.0 [facility] [employer] 250 DO Work Phone: Renal Function Panelon 01-17 Albumin BCP dye [Mass/Vol] 2.8 g/dL below low threshold 3.4 - 5.0 [facility] 250 DO Work Phone: Anion gap [Moles/Vol] 14 mmol/L 10 - 20 [facility] 250 DO Work Phone: Calcium [Mass/Vol] 8.1 mg/dL below low threshold 8.6 - 10.6 [facility] [place] DO Work Phone: Chloride [Moles/Vol] 96 mmol/L below low threshold 98 - 107 [facility] 250 DO Work Phone: CO2 [Moles/Vol] 21 mmol/L 21 - 32 [facility] 250 DO Work Phone: Creatinine [Mass/Vol] 0.64 mg/dL See Below [facility] kori 250 DO Work Phone: Comment on above: Reference Range: 0.5 0 - 1.05 Glucose [Mass/Vol] 79 mg/dL 74 - 99 [facility] 250 DO Work Phone: Phosphate [Mass/Vol] 3.5 mg/dL 2.5 - 4.9 [facility] [employer] 250 DO Work Phone: Comment on above: The performance andra acteristics of phosphorus testing in heparinized plasma have been validated by the individual laboratory site where testing is performed. Testing on heparinized plasma is not approved by the FDA; however, such approval is not necessary. Potassium [Moles/Vol] 4.3 mmol/L 3.5 - 5.3 [facility] kori Ostara DO Work Phone: Sodium [Moles/Vol] 127 mmol/L below low threshold 136 - 145 [facility] Ostara DO Work Phone: Urea nitrogen [Mass/Vol] 11 mg/dL 6 - 23 [place] [address] DO Work Phone: Renal Function Panel 89 {mL/min/1.73m2} >90 [place] [address] DO Work Phone: Comment on above: CALCULATIONS OF MOISES MATED GFR ARE PERFORMED USING THE 2020 CKD-EPI STUDY REFIT EQUATION WITHOUT THE RACE VARIABLE FOR THE IDMS-TRACEABLE CREATININE METHODS.https://jasn.asnjournals.org/content/early//A .[email or web address] Laboratory - Hematology and Cell countson 01-16-2022 Erythrocyte distribution width (RBC) [Ratio] 14.6 % above high threshold See Below [place] [address] DO Work Phone: Comment on above: Reference Range: 11. 5 - 14.5 Hematocrit (Bld) [Volume fraction] 33.9 % below low threshold See Below [facility] Ostara DO Work Phone: Comment on above: Reference Range: 36. 0 - 46.0 Hemoglobin (Bld) [Mass/Vol] 11.7 g/dL below low threshold See Below [facility] Ostara DO Work Phone: Comment on above: Reference Range: 12. 0 - 16.0 MCHC (RBC) [Mass/Vol] 34.5 g/dL See Below [place] [address] DO Work Phone: Comment on above: Reference Range: 32. 0 - 36.0 MCV (RBC) [Entitic vol] 89 fL 80 - 100 [facility] [employer] 250 DO Work Phone: Platelets (Bld) [#/Vol] 285 10*3/uL 150 - 450 [facility] kori 250 DO Work Phone: RBC (Bld) [#/Vol] 3.80 {x10E12/L} below low threshold See Below [facility] [employer] kori Jhonny DO Work Phone: Comment on above: Reference Range: 4.0 0 - 5.20 WBC (Bld) [#/Vol] 12.4 10*3/uL above high threshold 4.4 - 11.3 [facility] Jhonny DO Work Phone: Magnesium, Serumon 2 Magnesium [Mass/Vol] 1.85 mg/dL See Below [facility] [employer] kori Ostara DO Work Phone: Comment on above: Reference Range: 1.6 0 - 2.40 No Panel Informationon 01-16 0.0 {/100_WBC} 0.0-0.0 [facility] [place] DO Work Phone: Renal Function Panelon 01-16 Albumin BCP dye [Mass/Vol] 2.9 g/dL below low threshold 3.4 - 5.0 [facility] 250 DO Work Phone: Anion gap [Moles/Vol] 14 mmol/L 10 - 20 [facility] 250 DO Work Phone: Calcium [Mass/Vol] 8.3 mg/dL below low threshold 8.6 - 10.6 [facility] 250 DO Work Phone: Chloride [Moles/Vol] 97 mmol/L below low threshold 98 - 107 [facility] Ostara DO Work Phone: CO2 [Moles/Vol] 23 mmol/L 21 - 32 [place] [address] DO Work Phone: Creatinine [Mass/Vol] 0.53 mg/dL See Below [place] [address] DO Work Phone: Comment on above: Reference Range: 0.5 0 - 1.05 Glucose [Mass/Vol] 81 mg/dL 74 - 99 [employer] 250 DO Work Phone: Phosphate [Mass/Vol] 2.8 mg/dL 2.5 - 4.9 [place] [address] DO Work Phone: Comment on above: The performance andra acteristics of phosphorus testing in heparinized plasma have been validated by the individual laboratory site where testing is performed. Testing on heparinized plasma is not approved by the FDA; however, such approval is not necessary. Potassium [Moles/Vol] 4.8 mmol/L 3.5 - 5.3 [place] [address] DO Work Phone: Sodium [Moles/Vol] 129 mmol/L below low threshold 136 - 145 [place] [address] DO Work Phone: Urea nitrogen [Mass/Vol] 13 mg/dL 6 - 23 [place] [address] DO Work Phone: Renal Function Panel >90 >90 [place] [address] DO Work Phone: Comment on above: CALCULATIONS OF MOISES MATED GFR ARE PERFORMED USING THE 2020 CKD-EPI STUDY REFIT EQUATION WITHOUT THE RACE VARIABLE FOR THE IDMS-TRACEABLE CREATININE METHODS.https://jasn.asnjournals.org/content//A SN.8196281537 Laboratory - Chemistry and C hemistry - challengeon 01-15-2022 Glucose [Mass/Vol] 128 mg/dL above high threshold 74 - 99 [place] [address] DO Work Phone: Glucose [Mass/Vol] 141 mg/dL above high threshold 74 - 99 [facility] [employer] 250 DO Work Phone: Glucose [Mass/Vol] 75 mg/dL 74 - 99 [facility] [employer] 250 DO Work Phone: Glucose [Mass/Vol] 83 mg/dL 74 - 99 [facility] DO Work Phone: Laboratory - Hematology and Cell countson 01-15-2022 Erythrocyte distribution width (RBC) [Ratio] 14.7 % above high threshold See Below [facility] [employer] kori Jhonny DO Work Phone: Comment on above: Reference Range: 11. 5 - 14.5 Hematocrit (Bld) [Volume fraction] 31.5 % below low threshold See Below [facility] k[facility] Barry DO Work Phone: Comment on above: Reference Range: 36. 0 - 46.0 Hemoglobin (Bld) [Mass/Vol] 10.6 g/dL below low threshold See Below [facility] [employer] kori [place]ara DO Work Phone: Comment on above: Reference Range: 12. 0 - 16.0 MCHC (RBC) [Mass/Vol] 33.7 g/dL See Below [facility] [employer] kori Jhonny DO Work Phone: Comment on above: Reference Range: 32. 0 - 36.0 MCV (RBC) [Entitic vol] 89 fL 80 - 100 [facility] [place] DO Work Phone: Platelets (Bld) [#/Vol] 234 10*3/uL 150 - 450 [facility] Ostara DO Work Phone: RBC (Bld) [#/Vol] 3.52 {x10E12/L} below low threshold See Below [facility] kori Jhonny DO Work Phone: Comment on above: Reference Range: 4.0 0 - 5.20 WBC (Bld) [#/Vol] 12.6 10*3/uL above high threshold 4.4 - 11.3 [facility] [employer] 250 DO Work Phone: Magnesium, Serumon Magnesium [Mass/Vol] 1.96 mg/dL See Below [facility] [employer] 250 DO Work Phone: Comment on above: Reference Range: 1.6 0 - 2.40 No Panel Informationon 01-15 0.0 {/100_WBC} 0.0-0.0 [facility] [employer] DO Work Phone: Radiologyon 01-15-2022 XR Chest 2 Views Normal [facility] DO Work Phone: Renal Function Panelon 01-15 Albumin BCP dye [Mass/Vol] 2.9 g/dL below low threshold 3.4 - 5.0 [facility] [employer] DO Work Phone: Anion gap [Moles/Vol] 13 mmol/L 10 - 20 [facility] [employer] kori Ostara DO Work Phone: Calcium [Mass/Vol] 8.1 mg/dL below low threshold 8.6 - 10.6 [facility] [employer] DO Work Phone: Chloride [Moles/Vol] 100 mmol/L 98 - 107 [facility] [employer] 250 DO Work Phone: CO2 [Moles/Vol] 22 mmol/L 21 - 32 [facility] [employer] 250 DO Work Phone: Creatinine [Mass/Vol] 0.67 mg/dL See Below [facility] Ost[place] DO Work Phone: Comment on above: Reference Range: 0.5 0 - 1.05 Glucose [Mass/Vol] 74 mg/dL 74 - 99 [facility] [employer] 250 DO Work Phone: Phosphate [Mass/Vol] 2.8 mg/dL 2.5 - 4.9 [facility] [employer] DO Work Phone: Comment on above: The performance andra acteristics of phosphorus testing in heparinized plasma have been validated by the individual laboratory site where testing is performed. Testing on heparinized plasma is not approved by the FDA; however, such approval is not necessary. Potassium [Moles/Vol] 4.1 mmol/L 3.5 - 5.3 [facility] [employer] DO Work Phone: Sodium [Moles/Vol] 131 mmol/L below low threshold 136 - 145 [facility] Work Phone: Urea nitrogen [Mass/Vol] 15 mg/dL 6 - 23 [facility] Work Phone: Renal Function Panel 88 {mL/min/1.73m2} >90 [facility] Work Phone: Comment on above: CALCULATIONS OF MOISES MATED GFR ARE PERFORMED USING THE 2020 CKD-EPI STUDY REFIT EQUATION WITHOUT THE RACE VARIABLE FOR THE IDMS-TRACEABLE CREATININE METHODS.https://jasn.asnjournals.org/content/early//A SN.3107891709 URINALYSIS WITH CULTURE IF I NDICATEDon 01-15-2022 Color (U) YELLOW See Below [facility] [employer] DO Work Phone: Comment on above: Reference Range: STR AW,YELLOW Glucose Ql (U) Negative NEGATIVE [facility] [employer] DO Work Phone: Ketones Ql (U) 5 (TRACE) Abnormal NEGATIVE [facility] [employer] DO Work Phone: Leukocyte esterase Test strip Ql (U) Negative NEGATIVE [facility] Work Phone: pH (U) 7.0 [pH] 5.0 - 8.0 [facility] [employer] DO Work Phone: Protein (U) [Mass/Vol] Negative NEGATIVE [facility] [employer] 250 DO Work Phone: RBC (U) [#/Vol] SMALL (1+) Abnormal NEGATIVE [facility]ori 250 DO Work Phone: Specific gravity (U) [Rel density] 1.011 1 See Below [facility] Ostara DO Work Phone: Comment on above: Reference Range: 1.0 05 - 1.035 URINALYSIS WITH CULTURE IF INDICATED Negative NEGATIVE [facility] [employer]ori 250 DO Work Phone: URINALYSIS WITH CULTURE IF INDICATED <2.0 0.0 - 1.9 [facility] [employer]ori 250 DO Work Phone: URINALYSIS WITH CULTURE IF INDICATED CLEAR CLEAR [facility] kroi [facility] DO Work Phone: Urinalysis, Microscopicon Urinalysis, Microscopic <1 0-5 [facility] kori 250 DO Work Phone: Urinalysis, Microscopic 18 {/HPF} Abnormal 0-5 [facility] [employer] 250 DO Work Phone: Calcium, Ionized Levelon Calcium, Ionized Level 1.12 mmol/L See Below [facility] [employer] kori Ostara DO Work Phone: Comment on above: Reference Range: 1.1 0 - 1.33 The performance characteristics of ionized calcium tested in heparinized plasma or serum have been validated by the individual laboratory site where testing is performed. Testing on heparinized plasma or serum is not approved by the FDA; however, such approval is not necessary. Calcium, Ionized Level 1.13 mmol/L See Below [facility] [employer] 250 DO Work Phone: Comment on [...] Glucose [Mass/Vol] 88 mg/dL 74 - 99 [facility] [employer] 250 DO Work Phone: Glucose [Mass/Vol] 105 mg/dL above high threshold 74 - 99 [facility] 250 DO Work Phone: Glucose [Mass/Vol] 96 mg/dL 74 - 99 [employer] 250 DO Work Phone: Glucose [Mass/Vol] 83 mg/dL 74 - 99 [employer] 250 DO Work Phone: Glucose [Mass/Vol] 85 mg/dL 74 - 99 [employer] 250 DO Work Phone: Laboratory - Hematology and Cell countson 01-14-2022 Erythrocyte distribution width (RBC) [Ratio] 14.6 % above high threshold See Below [place] [address] DO Work Phone: Comment on above: Reference Range: 11. 5 - 14.5 Hematocrit (Bld) [Volume fraction] 28.8 % below low threshold See Below [place] [address] DO Work Phone: Comment on above: Reference Range: 36. 0 - 46.0 Hemoglobin (Bld) [Mass/Vol] 9.8 g/dL below low threshold See Below [place] [address] DO Work Phone: Comment on above: Reference Range: 12. 0 - 16.0 MCHC (RBC) [Mass/Vol] 34.0 g/dL See Below [place] [address] DO Work Phone: Comment on above: Reference Range: 32. 0 - 36.0 MCV (RBC) [Entitic vol] 88 fL 80 - 100 [place] [address] DO Work Phone: Platelets (Bld) [#/Vol] 209 10*3/uL 150 - 450 [facility] [employer] 250 DO Work Phone: RBC (Bld) [#/Vol] 3.26 {x10E12/L} below low threshold See Below [facility] [employer] 250 DO Work Phone: Comment on above: Reference Range: 4.0 0 - 5.20 WBC (Bld) [#/Vol] 13.8 10*3/uL above high threshold 4.4 - 11.3 [facility] [employer] DO Work Phone: Erythrocyte distribution width (RBC) [Ratio] 14.6 % above high threshold See Below [facility] [employer] DO Work Phone: Comment on above: Reference Range: 11. 5 - 14.5 Hematocrit (Bld) [Volume fraction] 30.4 % below low threshold See Below [facility] [employer] DO Work Phone: Comment on above: Reference Range: 36. 0 - 46.0 Hemoglobin (Bld) [Mass/Vol] 10.7 g/dL below low threshold See Below [facility] [employer] DO Work Phone: Comment on above: Reference Range: 12. 0 - 16.0 MCHC (RBC) [Mass/Vol] 35.2 g/dL See Below [facility] [employer] DO Work Phone: Comment on above: Reference Range: 32. 0 - 36.0 MCV (RBC) [Entitic vol] 86 fL 80 - 100 [facility] [employer] DO Work Phone: Platelets (Bld) [#/Vol] 203 10*3/uL 150 - 450 [facility] [employer] DO Work Phone: [phone] RBC (Bld) [#/Vol] 3.52 {x10E12/L} below low threshold See Below [facility] Sai sheikh 250 DO Work Phone: Comment on above: Reference Range: 4.0 0 - 5.20 WBC (Bld) [#/Vol] 14.7 10*3/uL above high threshold 4.4 - 11.3 [facility] Sai sheikh 250 DO Work Phone: Magnesium, Serumon Magnesium [Mass/Vol] 1.89 mg/dL See Below -[place] Sai sheikh 250 DO Work Phone: Comment on above: Reference Range: 1.6 0 - 2.40 Magnesium [Mass/Vol] 1.97 mg/dL See Below [facility] [place] Sai sheikh 250 DO Work Phone: Comment on above: Reference Range: 1.6 0 - 2.40 No Panel Informationon 01-14 0.0 {/100_WBC} 0.0-0.0 [facility] Sai sheikh 250 DO Work Phone: 0.0 {/100_WBC} 0.0-0.0 [facility] Sai sheikh 250 DO Work Phone: Radiologyon 01-14-2022 XR Chest Single view Normal [facility] [place] Sai sheikh 250 DO Work Phone: Renal Function Panelon 01-14 Albumin BCP dye [Mass/Vol] 3.0 g/dL below low threshold 3.4 - 5.0 [facility] Sai sheikh 250 DO Work Phone: Anion gap [Moles/Vol] 12 mmol/L 10 - 20 [facility] Sai sheikh 250 DO Work Phone: Calcium [Mass/Vol] 8.0 mg/dL below low threshold 8.6 - 10.6 [facility] Sai sheikh 250 DO Work Phone: Chloride [Moles/Vol] 97 mmol/L below low threshold 98 - 107 [facility] Sai sheikh 250 DO Work Phone: CO2 [Moles/Vol] 22 mmol/L 21 - 32 [place] [address] DO Work Phone: Creatinine [Mass/Vol] 0.77 mg/dL See Below [place] [address] DO Work Phone: Comment on above: Reference Range: 0.5 0 - 1.05 Glucose [Mass/Vol] 135 mg/dL above high threshold 74 - 99 [place] [address] DO Work Phone: Phosphate [Mass/Vol] 2.6 mg/dL 2.5 - 4.9 [place] [address] DO Work Phone: Comment on above: The performance andra acteristics of phosphorus testing in heparinized plasma have been validated by the individual laboratory site where testing is performed. Testing on heparinized plasma is not approved by the FDA; however, such approval is not necessary. Potassium [Moles/Vol] 4.1 mmol/L 3.5 - 5.3 [place] [address] DO Work Phone: Sodium [Moles/Vol] 127 mmol/L below low threshold 136 - 145 [place] [address] DO Work Phone: Urea nitrogen [Mass/Vol] 16 mg/dL 6 - 23 [place] [address] DO Work Phone: Renal Function Panel 78 {mL/min/1.73m2} >90 [place] [address] DO Work Phone: Comment on above: CALCULATIONS OF MOISES MATED GFR ARE PERFORMED USING THE 2020 CKD-EPI STUDY REFIT EQUATION WITHOUT THE RACE VARIABLE FOR THE IDMS-TRACEABLE CREATININE METHODS.https://jasn.asnjournals.org/content//A SN.0021462126 Albumin BCP dye [Mass/Vol] 2.9 g/dL below low threshold 3.4 - 5.0 [place] [address] DO Work Phone: Anion gap [Moles/Vol] 13 mmol/L 10 - 20 [place] [address] DO Work Phone: Calcium [Mass/Vol] 7.8 mg/dL below low threshold 8.6 - 10.6 [place] [address] DO Work Phone: Chloride [Moles/Vol] 98 mmol/L 98 - 107 [facility] 250 DO Work Phone: CO2 [Moles/Vol] 22 mmol/L 21 - 32 [place] [address] DO Work Phone: Creatinine [Mass/Vol] 0.72 mg/dL See Below [place] [address] DO Work Phone: Comment on above: Reference Range: 0.5 0 - 1.05 Glucose [Mass/Vol] 99 mg/dL 74 - 99 [employer] 250 DO Work Phone: Phosphate [Mass/Vol] 2.7 mg/dL 2.5 - 4.9 [place] [address] DO Work Phone: Comment on above: The performance andra acteristics of phosphorus testing in heparinized plasma have been validated by the individual laboratory site where testing is performed. Testing on heparinized plasma is not approved by the FDA; however, such approval is not necessary. Potassium [Moles/Vol] 4.1 mmol/L 3.5 - 5.3 [facility] 250 DO Work Phone: Sodium [Moles/Vol] 129 mmol/L below low threshold 136 - 145 [facility] 250 DO Work Phone: Urea nitrogen [Mass/Vol] 16 mg/dL 6 - 23 [place] [address] DO Work Phone: Renal Function Panel 85 {mL/min/1.73m2} >90 [place] [address] DO Work Phone: Comment on above: CALCULATIONS OF MOISES MATED GFR ARE PERFORMED USING THE 2020 CKD-EPI STUDY REFIT EQUATION WITHOUT THE RACE VARIABLE FOR THE IDMS-TRACEABLE CREATININE METHODS.https://jasn.asnjournals.org/content//A SN.9894343727 Albumin BCP dye [Mass/Vol] 3.0 g/dL below low threshold 3.4 - 5.0 [facility] [employer] DO Work Phone: Anion gap [Moles/Vol] 13 mmol/L 10 - 20 [place] [address] DO Work Phone: Calcium [Mass/Vol] 7.9 mg/dL below low threshold 8.6 - 10.6 [place] [address] DO Work Phone: Chloride [Moles/Vol] 97 mmol/L below low threshold 98 - 107 [facility] kori Ostara DO Work Phone: CO2 [Moles/Vol] 23 mmol/L 21 - 32 [place] [address] DO Work Phone: Creatinine [Mass/Vol] 0.81 mg/dL See Below [place] [address] DO Work Phone: Comment on above: Reference Range: 0.5 0 - 1.05 Glucose [Mass/Vol] 97 mg/dL 74 - 99 [facility] Work Phone: Phosphate [Mass/Vol] 3.1 mg/dL 2.5 - 4.9 [facility] [employer] 250 DO Work Phone: Comment on above: The performance andra acteristics of phosphorus testing in heparinized plasma have been validated by the individual laboratory site where testing is performed. Testing on heparinized plasma is not approved by the FDA; however, such approval is not necessary. Potassium [Moles/Vol] 4.7 mmol/L 3.5 - 5.3 [facility] [employer] DO Work Phone: Sodium [Moles/Vol] 128 mmol/L below low threshold 136 - 145 [facility] [employer] 250 DO Work Phone: Urea nitrogen [Mass/Vol] 16 mg/dL 6 - 23 [facility] [employer] 250 DO Work Phone: Renal Function Panel 73 {mL/min/1.73m2} >90 [facility] [employer] 250 DO Work Phone: Comment on above: CALCULATIONS OF MOISES MATED GFR ARE PERFORMED USING THE 2020 CKD-EPI STUDY REFIT EQUATION WITHOUT THE RACE VARIABLE FOR THE IDMS-TRACEABLE CREATININE METHODS.https://jasn.asnjournals.org/content/early//A SN.5405395659 Activated partial thrombopla stin time (aPTT) in platelet poor plasma by coagulation aOrdered By: Vandana Torres on 01-06-2022 aPTT Coag (PPP) [Time] 61.7 s 25.1-36.5 [facility] Creatinine and Glomerular fi ltration rate.predicted panel (S/P/Bld)Ordered By: Vandana Torres on 01-06-2022 Creatinine [Mass/Vol] 0.78 mg/dL 0.44-1.03 [facility] Estimated glomerular filtrat ion rate (GFR) non- AmericanOrdered By: Vandana Torres on 01-06-2022 GFR/1.73 sq M.predicted among non-blacks MDRD (S/P/Bld) [Vol rate/Area] > 60 mL/Min [facility] No Panel Informationon 01-06 [email or web address] ?RetrieveTestByDateTime?Pa [email or web address]=[id number]&Date=&Time=11%3a46%3a43% 3a00&TestType=ECG&Site=1&O utputType=PDF&Ext=PDF [facility] [employer] DO Work Phone: Sinus rhythm with occasional Premature ventricular complexes [facility] [employer] 250 DO Work Phone: [phone] [facility] 250 DO Work Phone: [phone] [facility] 250 DO Work Phone: [phone] [facility] 250 DO Work Phone: [phone] [facility] 250 DO Work Phone: [phone] [facility] 250 DO Work Phone: [phone] 1 [facility] 250 DO Work Phone: [phone] 1 [facility] 250 DO Work Phone: [phone] 1 [facility] 250 DO Work Phone: [phone] [facility] 250 DO Work Phone: [phone] 1 [facility] 250 DO Work Phone: [phone] [facility] 250 DO Work Phone: [phone] [facility] 250 DO Work Phone: [phone] [facility] 250 DO Work Phone: [phone] [facility] 250 DO Work Phone: No Panel InformationOrdered By: Vandana Torres on 01-06-2022 Estimated GFR () > 60 mL/Min [facility] Comment on above: GFR estimated refere nce range: According to KDOQI guidelines, <60 ml/min/1.73m2 is sufficient to diagnose a patient with chronic kidney disease. Pharmacy Creatinine Clearance (Chem 49.24 [facility] Serum or plasma anion gap de terminationOrdered By: Vandana Torres on 01-06-2022 Anion gap [Moles/Vol] 11.8 mmol/L 6.0-15.0 [facility] Serum or plasma calcium rashmi urement (mass/volume)Ordered By: Vandana Torres on 01-06-2022 Calcium [Mass/Vol] 8.5 mg/dL 8.2-10.2 [facility] Serum or plasma chloride reece surement (moles/volume)Ordered By: Vandana Torres on 01-06-2022 Chloride [Moles/Vol] 103 mmol/L 95-114 [facility] Serum or plasma glucose rashmi urement (mass/volume)Ordered By: Vandana Torres on 01-06-2022 Glucose [Mass/Vol] 108 mg/dL 70-100 [facility] Comment on above: ADA recommended refe rence rangeRandom Glucose Reference Range is dependent on time and content of last meal. Glucose of more than 200 mg/dL in a nonstressed, ambulatory subject supports the diagnosis of Diabetes Mellitus. Serum or plasma potassium me asurement (moles/volume)Ordered By: Vandana Torres on 01-06-2022 Potassium [Moles/Vol] 4.1 mmol/L 3.5-5.1 [facility] Serum or plasma sodium measu rement (moles/volume)Ordered By: Vandana Torres on 01-06-2022 Sodium [Moles/Vol] 131 mmol/L 136-146 [facility] Serum or plasma total carbon dioxide measurement (moles/volume)Ordered By: Vandana Torres on 01-06-2022 CO2 [Moles/Vol] 20.3 mmol/L 22.0-30.0 [facility] Serum or plasma urea nitroge n measurement (mass/volume)Ordered By: Vandana Torres on 01-06-2022 Urea nitrogen [Mass/Vol] 11 mg/dL 9-23 [facility] Basophils Auto (Bld) [#/Vol] Ordered By: Gold Patrick on 01-05-2022 Basophils (Bld) [#/Vol] 0.1 10*3/uL 0.0-0.2 [facility] Basophils/100 WBC Auto (Bld) Ordered By: Gold Patrick on 01-05-2022 Basophils/100 WBC (Bld) 1.0 % . [facility] Eosinophils Auto (Bld) [#/Vo l]Ordered By: Gold Patrick on 01-05-2022 Eosinophils (Bld) [#/Vol] 0.2 10*3/uL 0.0-0.45 [facility] Eosinophils/100 WBC Auto (Bl d)Ordered By: Gold Patrick on 01-05-2022 Eosinophils/100 WBC (Bld) 2.9 % . [facility] Erythrocyte distribution wid th Auto (RBC) [Ratio]Ordered By: Gold Patrick on 01-05-2022 Erythrocyte distribution width (RBC) [Ratio] 14.6 % 11.9-15.3 [facility] Hematocrit Auto (Bld) [Volum e fraction]Ordered By: Gold Patrick on 01-05-2022 Hematocrit (Bld) [Volume fraction] 38.3 % 34.0-46.4 [facility] Hemoglobin [Mass/volume] in BloodOrdered By: Gold Patrick on 01-05-2022 Hemoglobin (Bld) [Mass/Vol] 12.8 g/dL 11.8-15.4 [facility] Laboratory - CoagulationOrde red By: Gold Patrick on 01-05-2022 PT Coag (PPP) [Time] 12.4 s 9.0-12.9 [facility] Laboratory - Hematology and Cell countsOrdered By: Gold Patrick on 01-05-2022 Nucleated RBC/100 WBC (Bld) [Ratio] 0.0 % 0-0.5 [facility] Leukocytes [#/volume] in Blo od by Automated countOrdered By: Gold Patrick on 01-05-2022 WBC (Bld) [#/Vol] 7.9 10*3/uL 4.5-11.0 [facility] Lymphocytes Auto (Bld) [#/Vo l]Ordered By: Glod Patrick on 01-05-2022 Lymphocytes (Bld) [#/Vol] 2.0 10*3/uL 1.00-4.8 [facility] Lymphocytes/100 WBC Auto (Bl d)Ordered By: Gold Patrick on 01-05-2022 Lymphocytes/100 WBC (Bld) 25.1 % . [facility] MCH Auto (RBC) [Entitic mass ]Ordered By: Gold Patrick on 01-05-2022 MCH (RBC) [Entitic mass] 28.8 pg 24.7-34.3 [facility] MCHC Auto (RBC) [Mass/Vol]Or dered By: Gold Patrick on 01-05-2022 MCHC (RBC) [Mass/Vol] 33.4 g/dL 32.0-35.0 [facility] MCV Auto (RBC) [Entitic vol] Ordered By: Gold Patrick on 01-05-2022 MCV (RBC) [Entitic vol] 86.4 fL 80-100 [facility] Monocytes Auto (Bld) [#/Vol] Ordered By: Gold Patrick on 01-05-2022 Monocytes (Bld) [#/Vol] 0.7 10*3/uL 0.0-0.8 [facility] Monocytes/100 WBC Auto (Bld) Ordered By: Gold Patrick on 01-05-2022 Monocytes/100 WBC (Bld) 9.2 % . [facility] Neutrophils Auto (Bld) [#/Vo l]Ordered By: Gold Patrick on 01-05-2022 Neutrophils (Bld) [#/Vol] 4.9 10*3/uL 1.8-7.7 [facility] Neutrophils/100 WBC Auto (Bl d)Ordered By: Gold Patrick on 01-05-2022 Neutrophils/100 WBC (Bld) 61.8 % . [facility] No Panel InformationOrdered By: Vandana Torres on 01-05-2022 Urine Osmolality 211 mosm 250-900 [facility] Platelet mean volume Auto (B ld) [Entitic vol]Ordered By: Gold Patrick on 01-05-2022 Platelet mean volume (Bld) [Entitic vol] 9.1 fL 6.3-10.7 [facility] Platelet poor plasma interna tional normalized ratio (INR) by coagulation assay (relatOrdered By: Gold Patrick on 01-05-2022 INR Coag (PPP) [Relative time] 1.1 {INR} [facility] Comment on above: INR Therapeutic [...] 01-05-2022 Platelets (Bld) [#/Vol] 210 10*3/uL 150-450 [facility] RBC Auto (Bld) [#/Vol]Ordere d By: Gold Patrick on 01-05-2022 RBC (Bld) [#/Vol] 4.43 10*6/uL 3.60-5.00 [facility] Urine sodium measurement (mo les/volume)Ordered By: Vandana Torres on 01-05-2022 Sodium (U) [Moles/Vol] 30.0 mmol/L [facility] Comment on above: No reference range e stablished Cholesterol [Mass/volume] in Serum or PlasmaOrdered By: Jaya Bae on 01-03-2022 Cholesterol [Mass/Vol] 196 mg/dL 140-200 [facility] Comment on above: Chol less than 200 m g/dl low riskChol 201-239 mg/dl borderline riskChol 240 mg/dl and greater high risk Cholesterol in LDL Calc [Mas s/Vol]Ordered By: Jaya Bae on 01-03-2022 Cholesterol in LDL [Mass/Vol] 133 mg/dL 0-100 [facility] Comment on above: LDL ATP III CLASSIFI CATIONLDL less than 100 mg/dL OptimalLDL 100-129 mg/dL Near or above optimalLDL 130-159 mg/dL Borderline highLDL 160-189 mg/dL HighLDL greater than 189 mg/dL Very high Cholesterol in VLDL Calc [Ma ss/Vol]Ordered By: aJya Bae on 01-03-2022 Cholesterol in VLDL [Mass/Vol] 14 mg/dL [facility] Laboratory - Chemistry and C hemistry - challengeOrdered By: Jaya Bae on 01-03-2022 Cobalamin (Vitamin B12) [Mass/Vol] 458 pg/mL 180-914 [facility] Magnesium [Mass/Vol] 2.0 mg/dL 1.6-2.6 [facility] No Panel InformationOrdered By: Jaya Bae on 01-03-2022 25-Hydroxy Vitamin D Total 42.8 ng/mL 30-100 [facility] Comment on above: VITAMIN D STATUS 25( OH)VITAMIN D RANGE (ng/mL) Deficient <20 Insufficient 20 to <30Sufficient 30 to 100Reference: Kasey MF,Ranjeet PAGE, Earl REYES, et al. Evaluation,treatment, and prevention of vitamin D deficiency; an Endocrine Society clinical practice guideline. JCEM. 2010; 96(7):1911-30. Serum or plasma high density lipoprotein (HDL) cholesterol measurementOrdered By: Jaya Bae on 01-03-2022 Cholesterol in HDL [Mass/Vol] 49 mg/dL 35-85 [facility] Comment on above: HDL CHOL ATP-III CLA SSIFICATION Cardiovascular RiskHDL > or equal to 60 mg/dL LOWHDL < 40 mg/dL HIGH Serum or plasma total choles terol/high density lipoprotein (HDL) cholesterol mass ratOrdered By: Jaya Bae on 01-03-2022 Cholesterol.total/Chol esterol in HDL [Mass ratio] 4.0 {ratio} <5.0 [facility] TSH DL <= 0.005 mIU/L QnOrde red By: Jaya Bae on 01-03-2022 TSH Qn 0.04 m[IU]/L 0.45-5.33 [facility] Triglyceride [Mass/volume] i n Serum or PlasmaOrdered By: Jaya Bae on 10-22-2022 Triglyceride [Mass/Vol] 70 mg/dL 35-149 [facility] Comment on above: TRIG ATP [...] High sensitivity method [Mass/Vol] 7668 pg/mL 0-15 [facility] Comment on above: Results calledat 062 5 on 01/03/22 BNPon 01-02-2022 Natriuretic peptide B (Bld) [Mass/Vol] 971.0 pg/mL Normal <=1,800.0 [facility] Comment on above: Performed By: #### C MADM, BNP, CMP #### [facility] [address] [place] [address] [address] Marco Greer Body fluid albumin measureme nt (mass/volume)Ordered By: Jaya Bae on 01-02-2022 Albumin (Body fld) [Mass/Vol] 3.1 g/dL 3.2-5.5 [facility] CARDIAC BALJIT ADMITon 022 CK [Catalytic activity/Vol] 103 U/L Normal 26-192 [facility] Comment on above: Performed By: #### C MADM, BNP, CMP #### [facility] [address] [place] [address] [address] Marco Greer CK.MB [Mass/Vol] 12.75 ng/mL Critically high <=3.60 [facility] Comment on above: Performed By: #### C MADM, BNP, CMP #### [facility] [address] [place] [address] [address] Marco Greer HSTROP 2985.3 pg/mL Critically high 4.0-51.3 [facility] Comment on above: Result Comment: CUT- OFF POINTS HAVE BEEN ESTABLISHED BASED ON THE FOURTH UNIVERSAL DEFINITIONS OF MYOCARDIAL INFARCTION. THE UPPER REFERENCE LIMIT (URL) OF TROPONIN, DEFINED THE 99TH PERCENTILE OF cTnI DISTRIBUTION IN A REFERENCE POPULATION, HAS BEEN CONFIRMED THE DECISION THRESHOLD FOR AK DIAGNOSIS. Performed By: #### C MADM, BNP, CMP #### [facility] [address] [place] [address] Dr. Marco Greer MANINDER 282 ng/mL Critically high 9-82 [facility] Comment on above: Performed By: #### C MADM, BNP, CMP #### [facility] [address] [place] [address] Dr. Marco Greer CBC AUTO DIFFon 01-02-2022 BASO # 0.0 103/ul Normal 0.0-0.1 [facility] Comment on above: Performed By: #### C MP #### [facility] [address] [place] [address] Dr. Marco Greer Basophils/100 WBC (Bld) 0.4 % Normal 0.2-2.0 [facility] Comment on above: Performed By: #### C MP #### [facility] [address] [place] [address] Dr. Marco Greer EO # 0.1 103/ul Normal 0.0-0.7 [facility] Comment on above: Performed By: #### C MP #### [facility] [address] [place] [address] Dr. Marco Greer Eosinophils/100 WBC (Bld) 0.6 % Critically low 0.9-7.0 [facility] Comment on above: Performed By: #### C MP #### [facility] [address] [place] [address] Dr. Marco Greer Erythrocyte distribution width (RBC) [Ratio] 14.3 % Normal 11.0-15.0 [facility] Comment on above: Performed By: #### C MP #### [facility] [address] [place] [address] Dr. Marco Greer Hematocrit (Bld) [Volume fraction] 41.3 % Normal 36.0-48.0 [facility] Comment on above: Performed By: #### C MP #### [facility] [address] [place] [address] Dr. Marco Greer Hemoglobin (Bld) [Mass/Vol] 13.6 g/dL Normal 12.0-16.0 [facility] Comment on above: Performed By: #### C MP #### [facility] [address] [place] [address] Dr. Marco Greer IG # 0.04 10e3/ul Critically high 0.00-0.03 [facility] Comment on above: Performed By: #### C MP #### [facility] [address] [place] [address] Dr. Marco Greer IG % 0.4 % Normal 0.0-0.5 [facility] Comment on above: Performed By: #### C MP #### [facility] [address] [place] [address] Dr. Marco Greer LYMPH # 1.6 103/ul Normal 1.2-3.8 [facility] Comment on above: Performed By: #### C MP #### [facility] [address] [place] [address] Dr. Marco Greer Lymphocytes/100 WBC (Bld) 15.9 % Critically low 20.5-60.0 [facility] Comment on above: Performed By: #### C MP #### [facility] [address] [place] [address] Dr. Marco Greer MANUAL DIFF REQ NO Normal [facility] Comment on above: Performed By: #### C MP #### [facility] [address] [place] [address] Dr. Marco Greer MCH (RBC) [Entitic mass] 28.7 pg Normal 26.7-34.0 [facility] Comment on above: Performed By: #### C MP #### [facility] [address] [place] [address] Dr. Marco Greer MCHC (RBC) [Mass/Vol] 32.9 g/dL Normal 29.9-35.2 [facility] Comment on above: Performed By: #### C MP #### [facility] [address] [place] [address] Dr. Marco Greer MCV (RBC) [Entitic vol] 87.1 fL Normal 81.0-99.0 [facility] Comment on above: Performed By: #### C MP #### [facility] [address] [place] [address] Dr. Marco Greer MONO # 0.7 103/ul Normal 0.3-0.8 [facility] Comment on above: Performed By: #### C MP #### [facility] [address] [place] [address] Dr. Marco Greer Monocytes/100 WBC (Bld) 7.1 % Normal 1.7-12.0 [facility] Comment on above: Performed By: #### C MP #### [facility] [address] [place] [address] Dr. Marco Greer NEUT # 7.8 103/ul Critically high 1.4-6.5 [facility] Comment on above: Performed By: #### C MP #### [facility] [address] [place] [address] Dr. Marco Greer Neutrophils/100 WBC (Bld) 75.6 % Critically high 43.0-75.0 [facility] Comment on above: Performed By: #### C MP #### [facility] [address] [place] [address] Dr. Marco Greer Platelet mean volume (Bld) [Entitic vol] 10.5 fL Normal 9.5-13.5 [facility] Comment on above: Performed By: #### C MP #### [facility] [address] [place] [address] Dr. Marco Greer PLT 233 103/ul Normal 150-450 [facility] Comment on above: Performed By: #### C MP #### [facility] [address] [place] [address] Dr. Marco Greer RBC 4.74 106/ul Normal 4.20-5.40 [facility] Comment on above: Performed By: #### C MP #### [facility] [address] [place] [address] Dr. Marco Greer WBC 10.3 103/ul Normal 4.0-11.0 [facility] Comment on above: Performed By: #### C #### [facility] [address] HEAD WO CONon [...] IRON ALANIS Date: 2022-01-02 13:37 Normal [facility]14 SARS-CoV-2 (COVID-19) RNA NADER+probe Ql (Unsp spec) Not detected Normal NOT DETECTED [facility] Comment on above: Result Comment: When [...] for this test is supported by the [employer] of Health and Human Service's declaration that [...] By: #### C MADM, BNP, CMP #### [facility] [address] [address] [address] Marco Greer Globulin Calc (S) [Mass/Vol] Ordered By: Jaya Bae on 01-02-2022 Globulin (S) [Mass/Vol] 3.9 g/dL [facility] PROF 14(COMP METB)on Albumin [Mass/Vol] 3.0 g/dL Critically low 3.4-5.0 [facility] Comment on above: Performed By: #### C MADM, BNP, CMP #### [facility] [address] [place] [address] Dr. Marco Greer Albumin/Globulin [Mass ratio] 0.7 {ratio} Normal [facility] Comment on above: Performed By: #### C MADM, BNP, CMP #### [facility] [address] [address] [address] Marco Greer ALP [Catalytic activity/Vol] 68 U/L Normal 46-116 [facility] Comment on above: Performed By: #### C MADM, BNP, CMP #### [facility] [address] [place] [address] Dr. Marco Greer ALT [Catalytic activity/Vol] 19 U/L Normal 14-59 [facility] Comment on above: Performed By: #### C MADM, BNP, CMP #### [facility] [address] [address] [address] Marco Greer Anion gap [Moles/Vol] 11.2 mmol/L Normal [facility] Comment on above: Performed By: #### C MADM, BNP, CMP #### [facility] [address] [place] [address] Dr. Marco Greer AST [Catalytic activity/Vol] 24 U/L Normal 15-37 [facility] Comment on above: Performed By: #### C MADM, BNP, CMP #### [facility] [address] [place] [address] Dr. Marco Greer Bilirubin [Mass/Vol] 0.4 mg/dL Normal 0.2-1.0 [facility] Comment on above: Performed By: #### C MADM, BNP, CMP #### [facility] [facility] [address] [place] [address] Dr. Marco Greer Calcium [Mass/Vol] 9.1 mg/dL Normal 8.5-10.1 [facility] Comment on above: Performed By: #### C MADM, BNP, CMP #### [facility] [address] [place] [address] Dr. Marco Greer Chloride [Moles/Vol] 101 mmol/L Normal 98-107 [facility] Comment on above: Performed By: #### C MADM, BNP, CMP #### [facility] [address] [place] [address] Dr. Marco Greer CO2 [Moles/Vol] 24.1 mmol/L Normal 21.0-32.0 [facility] Comment on above: Performed By: #### C MADM, BNP, CMP #### [facility] [address] [place] [address] Dr. Marco Greer Creatinine [Mass/Vol] 0.99 mg/dL Normal 0.55-1.02 [facility] Comment on above: Performed By: #### C MADM, BNP, CMP #### [facility] [address] [place] [address] Dr. Marco Greer EGFR-AF MALAYSIAN >60 Normal >=60 [facility] Comment on above: Performed By: #### C MADM, BNP, CMP #### [facility] [address] [place] [address] Dr. Marco Greer EGFR-NON AF MALAYSIAN 54 mL/min/1.73m2 Critically low >=60 [facility] Comment on above: Performed By: #### C MADM, BNP, CMP #### [facility] [address] [place] [address] Dr. Marco Greer Globulin (S) [Mass/Vol] 4.5 g/dL Normal [facility] Comment on above: Performed By: #### C MADM, BNP, CMP #### [facility] [address] [address] [address] Marco Greer Glucose [Mass/Vol] 145 mg/dL Critically high 74-106 [facility] Comment on above: Performed By: #### C MADM, BNP, CMP #### [facility] [address] [place] [address] Dr. Marco Greer Potassium [Moles/Vol] 3.3 mmol/L Critically low 3.5-5.1 [facility] Comment on above: Performed By: #### C MADM, BNP, CMP #### [facility] [address] [place] [address] Dr. Marco Greer Protein [Mass/Vol] 7.5 g/dL Normal 6.4-8.2 [facility] Comment on above: Performed By: #### C MADM, BNP, CMP #### [facility] [address] [place] [address] Dr. Marco Greer Sodium [Moles/Vol] 133 mmol/L Critically low 136-145 [facility] Comment on above: Performed By: #### C MADM, BNP, CMP #### [facility] [address] [place] [address] Dr. Marco Greer Urea nitrogen [Mass/Vol] 16.0 mg/dL Normal 7.0-18.0 [facility] Comment on above: Performed By: #### C MADM, BNP, CMP #### [facility] [address] [place] [address] Dr. Marco Greer Urea nitrogen/Creatinine [Mass ratio] 16.2 mg/mg Normal [facility] Comment on above: Performed By: #### C MADM, BNP, CMP #### [facility] [address] [place] [address] Dr. Marco Greer PROTIMEon 01-02-2022 INR Coag (PPP) [Relative time] 1.02 {INR} Normal [facility] Comment on above: Performed By: #### C MADM, BNP, CMP #### [facility] [address] [place] [address] Dr. Marco Greer INR GUIDELINES SEE BELOW Normal [facility] Comment on above: Result Comment: YULIET RED INR: 2.0 - 3.0 CONDITIONS NOT LISTED BELOW 2.5 - 3.5 FOR PROSTHETIC HEART VALVE REPLACEMENT 2.5 - 3.5 RECURRENT THROMBOSIS Performed By: #### C MADM, BNP, CMP #### [facility] [address] [place], [place] [address] Dr. Marco Greer PT Coag (PPP) [Time] 11.0 s Normal 9.0-11.6 [facility] Comment on above: Performed By: #### C MADM, BNP, CMP #### [facility] [id number] Marco Greer PTTon 01-02-2022 aPTT Coag (Bld) [Time] 31.0 s Normal 22.3-36.2 [facility] Comment on above: Performed By: #### C MADM, BNP, CMP #### [facility] [address] [address] [address] Marco Greer Protein [Mass/volume] in Ser um or PlasmaOrdered By: Jaya Bae on 01-02-2022 Protein [Mass/Vol] 7.0 g/dL 6.1-7.9 [facility] Serum or plasma alanine kenny otransferase measurement without P-5'-P (enzymatic activiOrdered By: Jaya Bae on 01-02-2022 ALT No additional P-5'-P [Catalytic activity/Vol] 20 U/L [facility] Serum or plasma albumin/glob ulin mass ratioOrdered By: Jaya Bae on 01-02-2022 Albumin/Globulin [Mass ratio] 0.8 {ratio} [facility] Serum or plasma alkaline lisy sphatase measurement (enzymatic activity/volume)Ordered By: Jaya Bae on 01-02-2022 ALP [Catalytic activity/Vol] 58 U/L [facility] Serum or plasma aspartate am inotransferase measurement (enzymatic activity/volume)Ordered By: Jaya Bae on 01-02-2022 AST [Catalytic activity/Vol] 59 U/L [facility] Serum or plasma total biliru bin measurement (mass/volume)Ordered By: Jaya Bae on 01-02-2022 Bilirubin [Mass/Vol] 0.6 mg/dL 0.3-1.2 [facility] XR CHEST 1 Von 01-02-2022 XR CHEST [...] by: BUD BROUSSARD Date: 2022-01-02 13:42 Normal [facility] Albumin [Mass/volume] in Ser um or PlasmaOrdered By: Brianda Harris on 11-26-2021 Albumin [Mass/Vol] 3.1 g/dL 3.2-5.5 [facility] Basophils Auto (Bld) [#/Vol] Ordered By: Brianda Harris on 11-26-2021 Basophils (Bld) [#/Vol] 0.1 10*3/uL 0.0-0.2 [facility] Basophils/100 WBC Auto (Bld) Ordered By: Brianda Harris on 11-26-2021 Basophils/100 WBC (Bld) 0.4 % . [facility] Creatinine and Glomerular fi ltration rate.predicted panel (S/P/Bld)Ordered By: Brianda Harris on 11-26-2021 Creatinine [Mass/Vol] 0.69 mg/dL 0.44-1.03 [facility] Eosinophils Auto (Bld) [#/Vo l]Ordered By: Brianda Harris on 11-26-2021 Eosinophils (Bld) [#/Vol] 0.0 10*3/uL 0.0-0.45 [facility] Eosinophils/100 WBC Auto (Bl d)Ordered By: Brianda Harris on 11-26-2021 Eosinophils/100 WBC (Bld) 0.1 % . [facility] Erythrocyte distribution wid th Auto (RBC) [Ratio]Ordered By: Brianda Harris on 11-26-2021 Erythrocyte distribution width (RBC) [Ratio] 14.1 % 11.9-15.3 [facility] Erythrocyte sedimentation ra te by Photometric methodOrdered By: Brianda Harris on 11-26-2021 ESR Photometric method (Bld) [Velocity] 78 mm/hr 0-29 [facility] Estimated glomerular filtrat ion rate (GFR) non- AmericanOrdered By: Brianda Harris on 11-26-2021 GFR/1.73 sq M.predicted among non-blacks MDRD (S/P/Bld) [Vol rate/Area] > 60 mL/Min [facility] Globulin Calc (S) [Mass/Vol] Ordered By: Brianda Harris on 11-26-2021 Globulin (S) [Mass/Vol] 4.1 g/dL [facility] Hematocrit Auto (Bld) [Volum e fraction]Ordered By: Brianda Harris on 11-26-2021 Hematocrit (Bld) [Volume fraction] 40.4 % 34.0-46.4 [facility] Hemoglobin [Mass/volume] in BloodOrdered By: Brianda Harris on 11-26-2021 Hemoglobin (Bld) [Mass/Vol] 13.2 g/dL 11.8-15.4 [facility] Laboratory - Hematology and Cell countsOrdered By: Brianda Harris on 11-26-2021 Nucleated RBC/100 WBC (Bld) [Ratio] 0.1 % 0-0.5 [facility] Leukocytes [#/volume] in Blo od by Automated countOrdered By: Brianda Harris on 11-26-2021 WBC (Bld) [#/Vol] 15.8 10*3/uL 4.5-11.0 [facility] Lymphocytes Auto (Bld) [#/Vo l]Ordered By: Brianda Harris on 11-26-2021 Lymphocytes (Bld) [#/Vol] 1.2 10*3/uL 1.00-4.8 [facility] Lymphocytes/100 WBC Auto (Bl d)Ordered By: Brianda Harris on 11-26-2021 Lymphocytes/100 WBC (Bld) 7.8 % . [facility] MCH Auto (RBC) [Entitic mass ]Ordered By: Brianda Harris on 11-26-2021 MCH (RBC) [Entitic mass] 28.2 pg 24.7-34.3 [facility] MCHC Auto (RBC) [Mass/Vol]Or dered By: Brianda Harris on 11-26-2021 MCHC (RBC) [Mass/Vol] 32.6 g/dL 32.0-35.0 [facility] MCV Auto (RBC) [Entitic vol] Ordered By: Brianda Harris on 11-26-2021 MCV (RBC) [Entitic vol] 86.4 fL 80-100 [facility] Monocytes Auto (Bld) [#/Vol] Ordered By: Brianda Harris on 11-26-2021 Monocytes (Bld) [#/Vol] 0.8 10*3/uL 0.0-0.8 [facility] Monocytes/100 WBC Auto (Bld) Ordered By: Brianda Harris on 11-26-2021 Monocytes/100 WBC (Bld) 5.0 % . [facility] Neutrophils Auto (Bld) [#/Vo l]Ordered By: Brianda Harris on 11-26-2021 Neutrophils (Bld) [#/Vol] 13.7 10*3/uL 1.8-7.7 [facility] Neutrophils/100 WBC Auto (Bl d)Ordered By: Brianda Harris on 11-26-2021 Neutrophils/100 WBC (Bld) 86.7 % . [facility] No Panel InformationOrdered By: Brianda Harris on 11-26-2021 Estimated GFR () > 60 mL/Min [facility] Comment on above: GFR estimated refere nce range: According to KDOQI guidelines, <60 ml/min/1.73m2 is sufficient to diagnose a patient with chronic kidney disease. Pharmacy Creatinine Clearance (Chem N/A [facility] Platelet mean volume Auto (B ld) [Entitic vol]Ordered By: Brianda Harris on 11-26-2021 Platelet mean volume (Bld) [Entitic vol] 9.3 fL 6.3-10.7 [facility] Platelets Auto (Bld) [#/Vol] Ordered By: Brianda Harris on 11-26-2021 Platelets (Bld) [#/Vol] 277 10*3/uL 150-450 [facility] Protein [Mass/volume] in Ser um or PlasmaOrdered By: Brianda Harris on 11-26-2021 Protein [Mass/Vol] 7.2 g/dL 6.1-7.9 [facility] RBC Auto (Bld) [#/Vol]Ordere d By: Brianda Harris on 11-26-2021 RBC (Bld) [#/Vol] 4.68 10*6/uL 3.60-5.00 [facility] Serum or plasma alanine kenny otransferase measurement without P-5'-P (enzymatic activiOrdered By: Brianda Harris on 11-26-2021 ALT No additional P-5'-P [Catalytic activity/Vol] 20 U/L 10-60 [facility] Serum or plasma albumin/glob ulin mass ratioOrdered By: Brianda Harris on 11-26-2021 Albumin/Globulin [Mass ratio] 0.8 {ratio} [facility] Serum or plasma alkaline lisy sphatase measurement (enzymatic activity/volume)Ordered By: Brianda Harris on 11-26-2021 ALP [Catalytic activity/Vol] 60 U/L 32-92 [facility] Serum or plasma anion gap de terminationOrdered By: Brianda Harris on 11-26-2021 Anion gap [Moles/Vol] 18.5 mmol/L 6.0-15.0 [facility] Serum or plasma aspartate am inotransferase measurement (enzymatic activity/volume)Ordered By: Brianda Harris on 11-26-2021 AST [Catalytic activity/Vol] 28 U/L 10-42 [facility] Serum or plasma calcium rashmi urement (mass/volume)Ordered By: Brianda Harris on 11-26-2021 Calcium [Mass/Vol] 9.1 mg/dL 8.2-10.2 [facility] Serum or plasma chloride reece surement (moles/volume)Ordered By: Brianda Harris on 11-26-2021 Chloride [Moles/Vol] 90 mmol/L 95-114 [facility] Serum or plasma glucose rashmi urement (mass/volume)Ordered By: Brianda Harris on 11-26-2021 Glucose [Mass/Vol] 93 mg/dL 70-100 [facility] Comment on above: ADA recommended refe rence rangeRandom Glucose Reference Range is dependent on time and content of last meal. Glucose of more than 200 mg/dL in a nonstressed, ambulatory subject supports the diagnosis of Diabetes Mellitus. Serum or plasma potassium me asurement (moles/volume)Ordered By: Brianda Harris on 11-26-2021 Potassium [Moles/Vol] 3.7 mmol/L 3.5-5.1 [facility] Serum or plasma sodium measu rement (moles/volume)Ordered By: Brianda Harris on 11-26-2021 Sodium [Moles/Vol] 127 mmol/L 136-146 [facility] Serum or plasma total biliru bin measurement (mass/volume)Ordered By: Brianda Harris on 11-26-2021 Bilirubin [Mass/Vol] 0.3 mg/dL 0.3-1.2 [facility] Serum or plasma total carbon dioxide measurement (moles/volume)Ordered By: Brianda Harris on 11-26-2021 CO2 [Moles/Vol] 22.2 mmol/L 22.0-30.0 [facility] Serum or plasma urea nitroge n measurement (mass/volume)Ordered By: Brianda Harris on 11-26-2021 Urea nitrogen [Mass/Vol] 13 mg/dL 12-05 [facility] CBC AUTO DIFFon 08-25-2021 BASO # 0.0 103/ul Normal 0.0-0.1 [facility] Comment on above: Performed By: #### C MADM, BNP, CMP #### [facility] [address] [place] [address] Dr. Marco Greer Basophils/100 WBC (Bld) 0.8 % Normal 0.2-2.0 [facility] Comment on above: Performed By: #### C MADM, BNP, CMP #### [facility] [address] [place] [address] Dr. Marco Greer EO # 0.2 103/ul Normal 0.0-0.7 [facility] Comment on above: Performed By: #### C MADM, BNP, CMP #### [facility] [address] [place] [address] Dr. Marco Greer Eosinophils/100 WBC (Bld) 4.0 % Normal 0.9-7.0 [facility] Comment on above: Performed By: #### C MADM, BNP, CMP #### [facility] [address] [place] [address] Dr. Marco Greer Erythrocyte distribution width (RBC) [Ratio] 14.7 % Normal 11.0-15.0 [facility] Comment on above: Performed By: #### C MADM, BNP, CMP #### [facility] [address] [place] [address] Dr. Marco Greer Hematocrit (Bld) [Volume fraction] 40.4 % Normal 36.0-48.0 [facility] Comment on above: Performed By: #### C MADM, BNP, CMP #### [facility] [address] [place] [address] Dr. Marco Greer Hemoglobin (Bld) [Mass/Vol] 13.3 g/dL Normal 12.0-16.0 [facility] Comment on above: Performed By: #### C MADM, BNP, CMP #### [facility] [address] [place] [address] Dr. Marco Greer IG # 0.01 10e3/ul Normal 0.00-0.03 [facility] Comment on above: Performed By: #### C MADM, BNP, CMP #### [facility] [address] [place] [address] Dr. Marco Greer IG % 0.2 % Normal 0.0-0.5 [facility] Comment on above: Performed By: #### C MADM, BNP, CMP #### [facility] [address] [place] [address] Dr. Marco Greer LYMPH # 1.7 103/ul Normal 1.2-3.8 [facility] Comment on above: Performed By: #### C MADM, BNP, CMP #### [facility] [address] [place] [address] Dr. Marco Greer Lymphocytes/100 WBC (Bld) 36.1 % Normal 20.5-60.0 [facility] Comment on above: Performed By: #### C MADM, BNP, CMP #### [facility] [address] [place] [address] Dr. Marco Greer MANUAL DIFF REQ NO Normal [facility] Comment on above: Performed By: #### C MADM, BNP, CMP #### [facility] [address] [place] [address] Dr. Marco Greer MCH (RBC) [Entitic mass] 28.9 pg Normal 26.7-34.0 [facility] Comment on above: Performed By: #### C MADM, BNP, CMP #### [facility] [address] [place] [address] Dr. Marco Greer MCHC (RBC) [Mass/Vol] 32.9 g/dL Normal 29.9-35.2 [facility] Comment on above: Performed By: #### C MADM, BNP, CMP #### [facility] [address] [place] [address] Dr. Marco Greer MCV (RBC) [Entitic vol] 87.8 fL Normal 81.0-99.0 [facility] Comment on above: Performed By: #### C MADM, BNP, CMP #### [facility] [address] [place] [address] Dr. Marco Greer MONO # 0.9 103/ul Critically high 0.3-0.8 [facility] Comment on above: Performed By: #### C MADM, BNP, CMP #### [facility] [address] [address] [address] Marco Greer Monocytes/100 WBC (Bld) 19.0 % Critically high 1.7-12.0 [facility] Comment on above: Performed By: #### C MADM, BNP, CMP #### [facility] [address] [place] [address] Dr. Marco Greer NEUT # 1.9 103/ul Normal 1.4-6.5 [facility] Comment on above: Performed By: #### C MADM, BNP, CMP #### [facility] [address] [place] [address] Dr. Marco Greer Neutrophils/100 WBC (Bld) 39.9 % Critically low 43.0-75.0 [facility] Comment on above: Performed By: #### C MADM, BNP, CMP #### [facility] [address] [place] [address] Dr. Marco Greer Platelet mean volume (Bld) [Entitic vol] 11.1 fL Normal 9.5-13.5 [facility] Comment on above: Performed By: #### C MADM, BNP, CMP #### [facility] [address] [place] [address] Dr. Marco Greer PLT 230 103/ul Normal 150-450 [facility] Comment on above: Performed By: #### C MADM, BNP, CMP #### [facility] [address] [place] [address] Dr. Marco Greer RBC 4.60 106/ul Normal 4.20-5.40 [facility] Comment on above: Performed By: #### C MADM, BNP, CMP #### [facility] [address] [place] [address] Dr. Marco Greer WBC 4.7 103/ul Normal 4.0-11.0 [facility] Comment on above: Performed By: #### C MADM, BNP, CMP #### [facility] [address] [place] [address] Dr. Marco Greer PROF 14(COMP METB)on 022 Albumin [Mass/Vol] 3.1 g/dL Critically low 3.4-5.0 [facility] Comment on above: Performed By: #### C MP #### [facility] [address] [place] [address] Dr. Marco Greer Albumin/Globulin [Mass ratio] 0.8 {ratio} Normal [facility] Comment on above: Performed By: #### C MP #### [facility] [address] [address] [address] Marco Greer ALP [Catalytic activity/Vol] 65 U/L Normal 46-116 [facility] Comment on above: Performed By: #### C MP #### [facility] [address] [place] [address] Dr. Marco Greer ALT [Catalytic activity/Vol] 21 U/L Normal 14-59 [facility] Comment on above: Performed By: #### C MP #### [facility] [address] [place] [address] Dr. Marco Greer Anion gap [Moles/Vol] 12.0 mmol/L Normal [facility] Comment on above: Performed By: #### C MP #### [facility] [address] [place] [address] Dr. Marco Greer AST [Catalytic activity/Vol] 21 U/L Normal 15-37 [facility] Comment on above: Performed By: #### C MP #### [facility] [address] [place] [address] Dr. Marco Greer Bilirubin [Mass/Vol] 0.3 mg/dL Normal 0.2-1.0 [facility] Comment on above: Performed By: #### C MP #### [facility] [address] [place] [address] Dr. Marco Greer Calcium [Mass/Vol] 8.8 mg/dL Normal 8.5-10.1 [facility] Comment on above: Performed By: #### C MP #### [facility] [address] [place] [address] Dr. Marco Greer Chloride [Moles/Vol] 99 mmol/L Normal 98-107 [facility] Comment on above: Performed By: #### C MP #### [facility] [address] [address] [address] Marco Greer CO2 [Moles/Vol] 26.3 mmol/L Normal 21.0-32.0 [facility] Comment on above: Performed By: #### C MP #### [facility] [address] [address] [address] Marco Greer Creatinine [Mass/Vol] 0.80 mg/dL Normal 0.55-1.02 [facility] Comment on above: Performed By: #### C MP #### [facility] [address] [address] [address] Marco Greer EGFR-AF MALAYSIAN >60 Normal >=60 [facility] Comment on above: Performed By: #### C MP #### [facility] [address] [place] [address] Dr. Marco Greer EGFR-NON AF MALAYSIAN >60 Normal >=60 [facility] Comment on above: Performed By: #### C MP #### [facility] [address] [place] [address] Dr. Marco Greer Globulin (S) [Mass/Vol] 3.8 g/dL Normal [facility] Comment on above: Performed By: #### C MP #### [facility] [address] [place] [address] Dr. Marco Greer Glucose [Mass/Vol] 87 mg/dL Normal 74-106 [facility] Comment on above: Performed By: #### C MP #### [facility] [address] [address] [address] Marco Greer Potassium [Moles/Vol] 4.3 mmol/L Normal 3.5-5.1 [facility] Comment on above: Performed By: #### C MP #### [facility] [address] [place] [address] Dr. Marco Greer Protein [Mass/Vol] 6.9 g/dL Normal 6.4-8.2 [facility] Comment on above: Performed By: #### C MP #### [facility] [address] [place] [address] Dr. Marco Greer Sodium [Moles/Vol] 133 mmol/L Critically low 136-145 Th [facility] Comment on above: Performed By: #### C MP #### [facility] [address] [place], [place] [address] Dr. Marco Greer Urea nitrogen [Mass/Vol] 10.0 mg/dL Normal 7.0-18.0 [facility] Comment on above: Performed By: #### C MP #### [facility] [id number] Marco Greer Urea nitrogen/Creatinine [Mass ratio] 12.5 mg/mg Normal [facility] Comment on above: Performed By: #### C MP #### [facility] [address] [place], [place] [id number] Dr. Marco Greer SED RATE [facility] 2021 SED RATE 38 mm/hr Critically high <=30 [facility] Comment on above: Performed By: #### C MADM, BNP, CMP #### [facility] [address] [place], [place] [id number] Dr. Marco Greer Vital Signs Date Time Vital Sign Value Performing Clinician Facility 05-11-2024 13:25-0500 Body height 162.6 cm Jonathon Kaur MD Work Phone: [facility] 05-11-2024 13:25-0500 Body mass index (BMI) [Ratio] 22.49 kg/m2 Jonathon Kaur MD Work Phone: [facility] 05-11-2024 13:25-0500 Body temperature 96.6 [degF] Jonathon Kaur MD Work Phone: [facility] 05-11-2024 13:25-0500 Body weight 59.42 kg Jonatohn Kaur MD Work Phone: [facility] 05-11-2024 13:25-0500 Diastolic blood pressure 40 mm[Hg] Jonathon Kaur MD Work Phone: [facility] 05-11-2024 13:25-0500 Heart rate 54 /min Jonathon Kaur MD Work Phone: [facility] 05-11-2024 13:25-0500 Respiratory rate 20 /min Jonathon Kaur MD Work Phone: [facility] 05-11-2024 13:25-0500 SaO2% (BldA) [Mass fraction] 97 % Jonathon Kaur MD Work Phone: [facility] 05-11-2024 13:25-0500 Systolic blood pressure 130 mm[Hg] Jonathon Kaur MD Work Phone: [facility] 01-12-2024 10:49-0400 Body height 162.6 cm Jonathon Kaur MD Work Phone: [facility] 01-12-2024 10:49-0400 Body mass index (BMI) [Ratio] 22.49 kg/m2 Jonathon Kaur MD Work Phone: [facility] 01-12-2024 10:49-0400 Body temperature 97.11 [degF] Jonathon Kaur MD Work Phone: [facility] 01-12-2024 10:49-0400 Body weight 59.42 kg Jonathon Kaur MD Work Phone: [facility] 01-12-2024 10:49-0400 Diastolic blood pressure 54 mm[Hg] Jonathon Kaur MD Work Phone: [facility] 01-12-2024 10:49-0400 Heart rate 60 /min Jonathon Kaur MD Work Phone: [facility] 01-12-2024 10:49-0400 Respiratory rate 20 /min Jonathon Kaur MD Work Phone: [facility] 01-12-2024 10:49-0400 SaO2% (BldA) [Mass fraction] 98 % Jonathon Kaur MD Work Phone: [facility] 01-12-2024 10:49-0400 Systolic blood pressure 146 mm[Hg] Jonathon Kaur MD Work Phone: [facility] 12-06-2023 11:46-0400 Body height 162.56 cm MD Jonathon Kaur Work Phone: [facility] 12-06-2023 11:46-0400 Body mass index (BMI) [Ratio] 21.5 kg/m2 MD Jonathon Kaur Work Phone: [facility] 12-06-2023 11:46-0400 Body temperature 97.6 [degF] MD Jonathon Kaur Work Phone: [facility] 12-06-2023 11:46-0400 Body weight 57 kg MD Jonathon Kaur Work Phone: [facility] 12-06-2023 11:46-0400 Diastolic blood pressure 82 mm[Hg] MD Jonathon Kaur Work Phone: [facility] 12-06-2023 11:46-0400 Heart rate 50 /min MD Jonathon Kaur Work Phone: [facility] 12-06-2023 11:46-0400 Respiratory rate 16 /min MD Jonathon Kaur Work Phone: [facility] 12-06-2023 11:46-0400 SaO2% (BldA) [Mass fraction] 95 % MD Jonathon Kaur Work Phone: [facility] 12-06-2023 11:46-0400 Systolic blood pressure 124 mm[Hg] MD Jonathon Kaur Work Phone: [facility] 05-25-2023 12:53-0400 Body height 162.56 cm MD Jonathon Kaur Work Phone: [facility] 05-25-2023 12:53-0400 Body mass index (BMI) [Ratio] 21.6 kg/m2 MD Jonathon Kaur Work Phone: [facility] 05-25-2023 12:53-0400 Body temperature 96.4 [degF] MD Jonathon Kaur Work Phone: [facility] 05-25-2023 12:53-0400 Body weight 57.15 kg MD Jonathon Kaur Work Phone: [facility] 05-25-2023 12:53-0400 Diastolic blood pressure 68 mm[Hg] MD Jonathon Kaur Work Phone: [facility] 05-25-2023 12:53-0400 Heart rate 60 /min MD Jonathon Kaur Work Phone: [facility] 05-25-2023 12:53-0400 SaO2% (BldA) [Mass fraction] 99 % MD Jonathon Kaur Work Phone: [facility] 05-25-2023 12:53-0400 Systolic blood pressure 120 mm[Hg] MD Jonathon Kaur Work Phone: [facility] 04-21-2022 13:15-0500 Body height 162.56 cm Blake Zhao Other [employer] Other 04-21-2022 13:15-0500 Body mass index (BMI) [Ratio] 20.42 kg/m2 Blake Zhao Other [employer] Other 04-21-2022 13:15-0500 Body temperature 96.3 [degF] Blake Zhao Other [employer] Other 04-21-2022 13:15-0500 Body weight 53.98 kg Blake Zhao Other [employer] Other 04-21-2022 13:15-0500 Diastolic blood pressure 60 mm[Hg] Blake Zhao Other [employer] Other 04-21-2022 13:15-0500 SaO2% (BldA) [Mass fraction] 98 % Blake Buehrer Other [employer] Other 04-21-2022 13:15-0500 Systolic blood pressure 160 mm[Hg] Blake Buehrer Other [employer] Other 04-06-2022 10:45-0500 Body height 162.56 cm Blake Buehrer Other [employer] Other 04-06-2022 10:45-0500 Body mass index (BMI) [Ratio] 20.42 kg/m2 Blake Buehrer Other [employer] Other 04-06-2022 10:45-0500 Body temperature 97.8 [degF] Blake Anayaehrer Other [employer] Other 04-06-2022 10:45-0500 Body weight 53.98 kg Blake Anayaehrer Other [employer] Other 04-06-2022 10:45-0500 Diastolic blood pressure 78 mm[Hg] Blake Anayaehrer Other [employer] Other 04-06-2022 10:45-0500 SaO2% (BldA) [Mass fraction] 95 % Blake Buehrer Other [employer] Other 04-06-2022 10:45-0500 Systolic blood pressure 112 mm[Hg] Blake Buehrer Other [employer] Other 03-27-2022 11:52-0500 Body height 162.56 cm Jonathon Shaffer Naderer Work Phone: GN-Imdwimyqdu-Ycmywa raghav 250 DO Work Phone: 03-27-2022 11:52-0500 Body mass index (BMI) [Ratio] 20.43 kg/m2 Jonathon Mckeonerer Work Phone: AB-Wumsughabl-Vbrpyu raghav 250 DO Work Phone: 03-27-2022 11:52-0500 Body surface area Derived from formula 1.57 m2 Jonathon Mckeonerer Work Phone: NU-Vzdwvuocvy-Lqvmbh raghav 250 DO Work Phone: 03-27-2022 11:52-0500 Body weight 53.98 kg Jonathon Mckeonerer Work Phone: YW-Lsawpjlqsh-Agdivq [address] 250 DO Work Phone: 03-27-2022 11:52-0500 Diastolic blood pressure 70 mm[Hg] Jonathon Mckeonerer Work Phone: KR-Bsvdpsfcxt-Fwvumc raghav 250 DO Work Phone: 03-27-2022 11:52-0500 Heart rate 60 /min Jonathon Mckeonerer Work Phone: QA-Nxwcyufapq-Xnnzyl [address] 250 DO Work Phone: 03-27-2022 11:52-0500 Systolic blood pressure 168 mm[Hg] Jonathon Mckeonerer Work Phone: LG-Oejiilnpqr-Xzevuv raghav 250 DO Work Phone: 02-27-2022 13:19-0500 Body height 162.56 cm Jonathon Shaffer Naderer Work Phone: MB-Bfquyhhapu-MGA [facility] [address] [place] Work Phone: 02-27-2022 13:19-0500 Body mass index (BMI) [Ratio] 20.79 kg/m2 Jonathon Shaffer Naderer Work Phone: TL-Euaytfvrhx-OMB [facility] [address] [place] Work Phone: 02-27-2022 13:19-0500 Body surface area Derived from formula 1.58 m2 Jonathon Mckeonerer Work Phone: GM-Hvskfzfgle-FNU [facility] [address] [place] Work Phone: 02-27-2022 13:19-0500 Body weight 54.94 kg Jonathon Mckeonerer Work Phone: YY-Raioiettfj-ISG [facility] [address] [place] Work Phone: 02-27-2022 13:19-0500 Diastolic blood pressure 63 mm[Hg] Jonathon Mckeonerer Work Phone: LN-Batnwnhhve-NMB [facility] [address] [place] Work Phone: 02-27-2022 13:19-0500 Heart rate 61 /min Jonathon Leesr Work Phone: LV-Coimwyxahm-UUH [facility] [address] [place] Work Phone: 02-27-2022 13:19-0500 SaO2% (BldA) [Mass fraction] 95 % Jonathon Mckeonerer Work Phone: GR-Iruidnbwrb-QCL [facility] [address] [place] Work Phone: 02-27-2022 13:19-0500 Systolic blood pressure 174 mm[Hg] Jonathon Mckeonerer Work Phone: VL-Isevtghlrd-YZY [facility] [address] [place] Work Phone: 02-27-2022 13:19-0500 0 1 Jonathon Mckeonerer Work Phone: WH-Fykgxiaxhv-SCJ [facility] [address] [place] Work Phone: Comment on above: [employer] 02-17-2022 13:53-0500 Body height 162.56 cm Jonathon Leesr Work Phone: [facility] Work Phone: 02-17-2022 13:53-0500 Body mass index (BMI) [Ratio] 21.89 kg/m2 Jonathon A Naderer Work Phone: [facility] Work Phone: 02-17-2022 13:53-0500 Body surface area Derived from formula 1.62 m2 Jonathon A Naderer Work Phone: [facility] Work Phone: 02-17-2022 13:53-0500 Body weight 57.83 kg Jonathon A Naderer Work Phone: [facility] Work Phone: 02-17-2022 13:53-0500 Diastolic blood pressure 90 mm[Hg] Jonathon A Naderer Work Phone: [facility] Work Phone: 02-17-2022 13:53-0500 Heart rate 54 /min Jonathon A Naderer Work Phone: [facility] Work Phone: 02-17-2022 13:53-0500 Systolic blood pressure 132 mm[Hg] Jonathon A Naderer Work Phone: [facility] Work Phone: 02-13-2022 11:46-0500 Diastolic blood pressure 84 mm[Hg] Jonathon A Naderer Work Phone: [facility] [address] [place] Work Phone: 02-13-2022 11:46-0500 Systolic blood pressure 192 mm[Hg] Jonathon A Naderer Work Phone: [facility] [address] DO Work Phone: 02-13-2022 11:20-0500 Diastolic blood pressure 62 mm[Hg] Jonathon A Naderer Work Phone: [facility] [address] DO Work Phone: 02-13-2022 11:20-0500 Systolic blood pressure 200 mm[Hg] Jonathon Mckeonerer Work Phone: [facility] [address] DO Work Phone: 02-13-2022 11:15-0500 Body height 162.56 cm Jonathon Mckeonerer Work Phone: [facility] [address] DO Work Phone: 02-13-2022 11:15-0500 Body mass index (BMI) [Ratio] 21.46 kg/m2 Jonathon Mckeonerer Work Phone: [facility] [address] DO Work Phone: 02-13-2022 11:15-0500 Body surface area Derived from formula 1.6 m2 Jonathon Mckeonerer Work Phone: [facility] [employer] 250 DO Work Phone: 02-13-2022 11:15-0500 Body weight 56.7 kg Jonathon Mckeonerer Work Phone: [facility] [address] DO Work Phone: 02-13-2022 11:15-0500 Diastolic blood pressure 70 mm[Hg] Jonathon Mckeonerer Work Phone: [facility] [address] DO Work Phone: 02-13-2022 11:15-0500 Heart rate 61 /min Jonathon Mckeonerer Work Phone: [facility] [address] DO Work Phone: 02-13-2022 11:15-0500 Systolic blood pressure 204 mm[Hg] Jonathon Edmund Mckeonerer Work Phone: [facility] [address] DO Work Phone: 01-28-2022 17:01-0500 Body temperature 98.6 [degF] Pcp Unknown [facility] 01-28-2022 17:01-0500 Diastolic blood pressure 68 mm[Hg] Pcp Unknown [facility] 01-28-2022 17:01-0500 Heart rate 75 /min Pcp Unknown [facility] 01-28-2022 17:01-0500 Respiratory rate 18 /min Pcp Unknown [facility] 01-28-2022 17:01-0500 SaO2% (BldA) [Mass fraction] 97 % Pcp Unknown [facility] 01-28-2022 17:01-0500 Systolic blood pressure 148 mm[Hg] Pcp Unknown [facility] 01-28-2022 03:27-0500 Body weight 62.2 kg Pcp Unknown [facility] 01-06-2022 08:00-0400 Body temperature 97.2 [degF] PHYSICIAN NO [facility] 01-06-2022 08:00-0400 Diastolic blood pressure 56 mm[Hg] PHYSICIAN NO [facility] 01-06-2022 08:00-0400 Heart rate 74 /min PHYSICIAN NO [facility] 01-06-2022 08:00-0400 Respiratory rate 18 /min PHYSICIAN NO [facility] 01-06-2022 08:00-0400 SaO2% (BldA) [Mass fraction] 97 % PHYSICIAN NO [facility] 01-06-2022 08:00-0400 Systolic blood pressure 125 mm[Hg] PHYSICIAN NO [facility] 01-06-2022 06:00-0400 Body weight 58.9 kg PHYSICIAN NO [facility] 01-02-2022 18:59-0400 Body height 162.56 cm PHYSICIAN NO [facility] Encounters Encounter Date Encounter Type Care Provider Facility Start: 06-01-2024 End: 06-01-2024 ambulatory EHAB [facility] Start: 05-12-2024 End: 05-12-2024 Clinisync Result Encounter Jonathon Kaur MD Work Phone: [facility] Unsolicited Start: 05-12-2024 End: 05-12-2024 Clinisync Result Encounter Jonathon Kaur MD Work Phone: [facility] Unsolicited Start: 05-11-2024 End: 05-11-2024 Bamboo flowsheet Jonathon Kaur MD Work Phone: [facility] Start: 05-11-2024 End: 05-11-2024 Bamboo flowsheet Jonathon Kaur MD Work Phone: [facility] Start: 05-11-2024 End: 05-11-2024 ambulatory JONATHON KAUR Not Available Start: 05-11-2024 End: 05-11-2024 Patient encounter procedure Jonathon Kaur MD Work Phone: [facility] Work Phone: Start: 05-11-2024 End: 05-11-2024 Postop follow up visit related to original px Jonathon Kaur MD Work Phone: [facility] Comment on above: Medicare annual well ness visit, subsequent (Primary Dx); Stage 3a chronic kidney disease (CKD) (CMS/HCC); Dyslipidemia (CMS/HCC); Encounter for long-term (current) use of medications; Adult hypothyroidism (CMS/HCC); Chronic HFrEF (heart failure with reduced ejection fraction) (CMS/HCC); Rheumatoid arthritis involving multiple sites, unspecified whether rheumatoid factor present (CMS/HCC); Essential hypertension, benign (CMS/HCC); Essential (primary) hypertension (CMS/HCC) Start: 03-28-2024 End: 03-28-2024 Telephone encounter Jonathon Kaur MD Work Phone: [facility] Comment on above: Med Refill Start: 03-21-2024 End: 03-21-2024 Patient encounter procedure Jonathon Kaur MD Work Phone: [facility] [address] Work Phone: Start: 03-21-2024 End: 03-21-2024 ambulatory Jonathon Kaur MD Work Phone: [facility] Work Phone: Start: 01-19-2024 End: 01-19-2024 Bamboo flowsheet Lorraine Church [employer] [facility]ER [facility] Start: 01-19-2024 End: 01-19-2024 Bamboo flowsheet Lorraine Church [facility] [facility] Start: 01-19-2024 End: 01-19-2024 ambulatory Lorraine Church [facility] [facility]ER [facility] Comment on above: Closed fracture of t ransverse process of lumbar vertebra, initial encounter (CMS/[facility]) (Primary Dx); Acute low back pain, unspecified back pain laterality, unspecified whether sciatica present Start: 01-13-2024 End: 01-13-2024 Patient encounter procedure MD Jonathon Kaur Work Phone: [facility] [address] Work Phone: Start: 01-13-2024 End: 01-13-2024 ambulatory MD Jonathon Kaur Work Phone: [facility] Work Phone: Start: 01-12-2024 End: 01-13-2024 [...] Not Available Start: 01-10-2024 End: 01-10-2024 ambulatory [facility] Start: 01-04-2024 Non-patient / Non-visit Jonathon alves MD Work Phone: [facility] Work Phone: Start: 12-06-2023 End: 12-06-2023 ambulatory MD Jonathon Kaur Work Phone: [facility] Work Phone: Start: 12-06-2023 End: 12-06-2023 Patient encounter procedure MD Jonathon Kaur Work Phone: [facility] Work Phone: Start: 11-11-2023 End: 11-11-2023 Clinisync Result Encounter Generic External Data Provider [facility] Unsolicited Start: 11-11-2023 End: 11-11-2023 Clinisync Result Encounter Generic External Data Provider [facility] External [facility] Unsolicited Start: 10-18-2023 End: 10-18-2023 ambulatory [facility] Start: 10-12-2023 Non-patient / Non-visit MD Jaycee Kaur Work Phone: [facility] Work Phone: Start: 10-07-2023 End: 10-07-2023 ambulatory JONATHON KAUR Not Available Start: 09-30-2023 End: 09-30-2023 ambulatory [facility] Start: 09-23-2023 End: 09-23-2023 Patient encounter procedure MD Jonathon Kaur Work Phone: [facility] [address] Work Phone: Start: 09-23-2023 End: 09-23-2023 ambulatory MD Jonathon Kaur Work Phone: [facility] Work Phone: Start: 07-19-2023 End: 07-19-2023 ambulatory EHAB [facility] Start: 07-14-2023 End: 07-14-2023 ambulatory JONATHON KAUR Not Available Start: 06-03-2023 End: 06-03-2023 Patient encounter procedure MD Jonathon Kaur Work Phone: [facility] [address] Work Phone: Start: 06-03-2023 End: 06-03-2023 ambulatory MD Jonathon Kaur Work Phone: [facility] Work Phone: Start: 05-25-2023 End: 05-25-2023 Patient encounter procedure MD Jonathon Kaur Work Phone: [facility] Includes [facility] Work Phone: Start: 05-25-2023 End: 05-25-2023 ambulatory Jonathon Kaur Facility:[facility] Start: 12-15-2022 End: 12-15-2022 ambulatory MD Jonathon Kaur Work Phone: [facility] Work Phone: Start: 12-15-2022 End: 12-15-2022 Patient encounter procedure MD Jonathon Kaur Work Phone: [facility] [address] Work Phone: Start: 11-24-2022 End: 11-24-2022 ambulatory MD Jonathon Kaur Work Phone: [facility] Work Phone: Start: 11-24-2022 End: 11-24-2022 Patient encounter procedure MD Jonathon Kaur Work Phone: [facility]-Ultrasound [facility] Start: 08-18-2022 Rx Renewal Jonathon Kaur Work Phone: [facility] [address] DO Work Phone: Start: 06-26-2022 End: 06-27-[address] DAPHNE MCGUIRE Facility:[facility] Start: 05-20-2022 Rx Renewal Jonathon Kaur Work Phone: [facility] [address] DO Work Phone: Start: 04-21-2022 End: 04-21-2022 ambulatory Blake Zhao Other [employer] [facility] [employer] Other Start: 04-21-2022 Office outpatient vi sit 25 minutes Blake Zhao [facility] Start: 04-13-2022 ambulatory Radha Copeland M.D. Facility : Start: 04-06-2022 End: 04-06-2022 ambulatory Blake Zhao Other [place] [employer] Other Start: 04-06-2022 Office outpatient ne w 45 minutes Blake Zhao [facility] Start: 04-03-2022 End: 04-04-[address] DOCTOR PABON Facility:[facility] Start: 04-01-2022 Patient encounter procedure Jonathon Kaur Work Phone: [facility] 250 DO Work Phone: Start: 04-01-[address] Miri Hunt ty: Start: 03-27-2022 Office outpatient vi sit 25 minutes Jonathon Kaur Work Phone: LW-Azcisgyktg-Lhhfqqvk 250 DO Work Phone: Start: 03-27-[address] Miri Hunt ty: Start: 03-11-2022 End: 03-12-[address] JONATHON KAUR Facility:[facility] Start: 03-04-2022 End: 03-04-2022 ambulatory MD Jonathon Kaur Work Phone: [facility] Work Phone: Start: 03-04-2022 End: 03-04-2022 Patient encounter procedure MD Jonathon Kaur Work Phone: [facility] [address] Start: 02-27-2022 ambulatory ALBIN ABU-CHRISTIAN Facility :[facility] Start: 02-27-2022 Postop follow up vis it related to original px Jonathon Kaur Work Phone: VL-Myjuvdsimv-LK[facility] [address] [place] Work Phone: Start: 02-27-2022 ambulatory ALBIN ABU-CHRISTIAN Facility :[facility] Start: 02-27-2022 ambulatory ALBIN ABU-CHRISTIAN Facility :[facility] Start: 02-24-2022 End: 02-24-2022 Departed Referred MD Jonathon Kaur Work Phone: [facility] [address] [place] Start: 02-17-2022 Office outpatient ne w 45 minutes Jonathon Kaur Work Phone: [facility] Work Phone: Start: 02-17-[address] Kvng Romo Facility:[id number] Start: 02-13-2022 Office outpatient ne w 45 minutes Jonathon Kaur Work Phone: [facility] 250 DO Work Phone: Start: 02-13-[address] Miri Hunt ty:[id number] Start: 02-10-2022 End: 02-11-[address] JONATHON KAUR Facility: Start: 01-06-2022 End: 01-06-2022 ambulatory UNKNOWN PROVIDER Facility:[facility] Start: 01-06-2022 End: 01-28-2022 Evaluation and management of inpatient Albin Abu-Christian [facility] Dinesh [id number] Rm [id number] Start: 01-02-2022 End: 01-06-2022 Evaluation and management of inpatient PHYSICIAN DIVYA [facility] [place] [facility] Start: 01-02-2022 End: 01-02-[address] BUD BROUSSARD Facility:[facility] Start: 11-26-2021 End: 11-26-2021 Patient encounter procedure PHYSICIAN NO FAMILY [facility] [address] Start: 08-25-2021 End: 08-26-[address] DOCTOR PABON Facility:[facility] Procedures Date Procedure Procedure Detail Performing Clinician Start: 05-12-2024 ALL CBC WITH AUTO DIFF Jonathon Kaur MD Work Phone: Start: 12-06-2023 Doppler ultrasonogra phy of bilateral [...] procedure 11/08/2024 1:15 PM EDT Office Visit [facility] [address] [place] [phone] Jonathon Kaur MD [address] [place] [phone] [facility] Start: 05-11-2024 End: 05-11-2025 Basic metabolic 1998 panel - Serum or Plasma Basic metabolic panel Lab Routine Stage 3a chronic kidney disease (CKD) (CMS/HCC) Expected: 05/11/2024 (Approximate), Expires: 05/11/2025 [facility] Work Phone: Comment on above: Expected: 05/11/2024 (Approximate), Expires: 05/11/2025 Start: 05-11-2024 End: 05-11-2025 CBC W Auto Differential panel - Blood CBC and differential Lab Routine Encounter for long-term (current) use of medications Expected: 05/11/2024 (Approximate), Expires: 05/11/2025 [facility] Comment on above: Expected: 05/11/2024 (Approximate), Expires: 05/11/2025 Start: 05-11-2024 End: 05-11-2025 Hepatic function 2000 panel - Serum or Plasma Hepatic function panel Lab Routine Encounter for long-term (current) use of medications Expected: 05/11/2024 (Approximate), Expires: 05/11/2025 [facility] Comment on above: Expected: 05/11/2024 (Approximate), Expires: 05/11/2025 Start: 05-11-2024 End: 05-11-2025 Lipid 1996 panel - Serum or Plasma Lipid panel Lab Routine Dyslipidemia ([facility]/HCC) Expected: 05/11/2024 (Approximate), Expires: 05/11/2025 [facility] Comment on above: Expected: 05/11/2024 (Approximate), Expires: 05/11/2025 Start: 05-11-2024 End: 05-11-2025 Thyrotropin [Units/volume] in Serum or Plasma TSH Lab Routine Adult hypothyroidism (CMS/HCC) Expected: 05/11/2024 (Approximate), Expires: 05/11/2025 [facility] Comment on above: Expected: 05/11/2024 (Approximate), Expires: 05/11/2025 Start: 05-11-2024 End: 05-11-2025 Thyroxine (T4) free [Mass/volume] in Serum or Plasma T4, free Lab Routine Adult hypothyroidism (CMS/HCC) Expected: 05/11/2024 (Approximate), Expires: 05/11/2025 [facility] Comment on above: Expected: 05/11/2024 (Approximate), Expires: 05/11/2025 Start: 05-11-2024 End: 05-11-2025 Triiodothyronine (T3) Free [Mass/volume] in Serum or Plasma T3, free Lab Routine Adult hypothyroidism (CMS/HCC) Expected: 05/11/2024 (Approximate), Expires: 05/11/2025 [facility] Comment on above: Expected: 05/11/2024 (Approximate), Expires: 05/11/2025 Start: 04-03-2024 End: 04-03-2024 Patient encounter procedure 04/03/2024 2:00 PM EST Office Visit [facility] [address] [place] [address] Jonathon Kaur MD [address] [place] [address] [facility] Start: 03-20-2024 End: 03-20-2024 Patient encounter procedure 03/20/2024 1:30 PM EST Office Visit [facility] [address] [place] [address] Jonathon Kaur MD [address] [place] [address] [facility] Start: 01-19-2024 End: 01-19-2024 ambulatory [facility] Comment on above: Arrived Start: 01-17-2024 End: 01-17-2024 Patient encounter procedure 01/17/2024 10:45 AM EST Office Visit [facility] [address] [place] [address] Jonathon Kaur MD [address] [place] [phone] [facility] Start: 01-12-2024 End: 01-12-2024 ambulatory 01/12/2024 4:30 PM EDT Evaluation [facility] [address] [place] [address] Jf Terrell, PT [address] [place] [address] [facility] Start: 01-12-2024 End: 01-12-2024 Patient encounter procedure 01/12/2024 10:45 AM EDT Office Visit [facility] [address] [place] [address] Jonathon Kaur MD [address] [place] [phone] Arrived [facility] Comment on above: Arrived Start: 12-06-2023 Doppler ultrasonogra phy of bilateral carotid arteries US carotid doppler [facility] Start: 11-14-2023 Influenza vaccination Influenza Vacc ine (#1) [facility] Start: 06-19-2022 FUV, Provider: Miri Hill, Status: Pen, Time: 3:00 PM FUV, Provider: Miri Hill, Status: Pen, Time: 3:00 PM [facility] [address] DO Work Phone: Start: 04-03-2022 NPV, Provider: Sivakumar Corbett, Status: Pen, Time: 9:15 AM NPV, Provider: Sivakumar Corbett, Status: Pen, Time: 9:15 AM [facility] 250 DO Work Phone: Start: 04-03-2022 Patient encounter procedure [facility] Start: 04-02-2022 EVENT JEREMY, Provider : DEV PEPPER TELEVISION SCRIPT WRITER 1,[id number], Status: Pen, Time: 1:30 PM EVENT JEREMY, Provider: DEV PEPPER TELEVISION SCRIPT WRITER 1,[id number], Status: Pen, Time: 1:30 PM HQ-Olvdupqiwp-Fqpyv kori 250 DO Work Phone: Start: 02-27-2022 Patient encounter procedure [facility] [place] Start: 02-27-2022 POV, Provider: Albin Pierce, Status: Pen, Time: 1:00 PM POV, Provider: Albin Pierce, Status: Pen, Time: 1:00 PM -[facility] 250 DO Work Phone: Start: 02-17-2022 Patient encounter procedure [facility] Cardiology [place] Start: 02-17-2022 NPV, Provider: Kvng Romo, Status: Pen, Time: 1:45 PM NPV, Provider: Kvng Romo, Status: Pen, Time: 1:45 PM -[facility] 250 DO Work Phone: Start: 02-17-2022 Patient encounter procedure [facility] U[facility] [place] Start: 02-13-2022 Patient encounter procedure [facility] Cardiology [place] Start: 01-12-2022 End: 01-13-2023 Bisacodyl Rectal 10 mg Suppository Daily PRN ; Suppository (DULCOLAX)DOSE = 10 mg Rectal Daily, PRN Constipation Start: 12-Jan-2022 End: 12-Jan-2023 Ordered: 12-Jan-2022 Jillian Hagan Intent [facility] Start: 01-08-2022 Preprocedural cardiovascular examination Preprocedural cardiovascular examination Date: 08-Jan-2022 [facility] Start: 01-06-2022 Cardiac ischemia Cardiac ische bo Date: 06-Jan-2022 [facility] Start: 01-06-2022 Carotid stenosis Carotid steno sis Date: 06-Jan-2022 [facility] Start: 01-06-2022 Pre-operative cardiovascular examination [facility] Start: 01-06-2022 PVD (peripheral vasc ular disease) PVD (peripheral vascular disease) Date: 06-Jan-2022 [facility] Start: 01-06-2022 [facility] Start: 01-05-2022 [facility] Start: 01-02-2022 Referral to burner shaft [facility] Start: 01-02-2022 Hospital admission [facility] Start: 01-02-2022 Fluoroscopy of Left Heart using Low Osmolar Contrast Fluoroscopy of Left Heart using Low Osmolar Contrast [facility] Start: 01-02-2022 Fluoroscopy of Multi ple Coronary Arteries using Low Osmolar Contrast Fluoroscopy of Multiple Coronary Arteries using Low Osmolar Contrast [facility] Start: 01-02-2022 Measurement of Cardi ac Sampling and Pressure, Left Heart, Percutaneous Approach Measurement of Cardiac Sampling and Pressure, Left Heart, Percutaneous Approach [facility] Start: 02-15-1946 Pneumococcal Vaccine : 65+ Years (1 of 2 - PCV) Pneumococcal Vaccine: 65+ Years (1 of 2 - PCV) [facility] Start: 1940 Medicare Annual Well ness (AWV) Medicare Annual Wellness (AWV) [facility] Healthcare Patient referral [facility] Work Phone: [email or web address].doppler Carotid arteries - bilateral [facility] Payers Date Payer Category Payer Self-pay [id number] 2022 Private Health Insurance [facility] [place] [id number] 2019 Unknown 2010 Unknown [id number] 2007 Medicare [id number] 1959 Medicare [id number] 1959 Unknown [id number] 1942 Unknown [id number] 2.16.840.1.741122.3.579. 2.732 1942 Unknown [id number] 2.16.840.1.902810.3.579. 2.593 1942 Unknown [id number] 2.16.840.1.879823.3.579. 2.593 1942 Unknown [id number] 2.16.840.1.285676.3.579. 2.593 1942 Unknown [id number] 2.16.840.1.901866.3.579. 2.593 1942 Unknown [id number] 2.16.840.1.995246.3.579. 2.593 1942 Unknown [id number] 2.16.840.1.951732.3.579. 2.593 1942 Unknown [id number] 2.16.840.1.766728.3.579. 2.356 1942 Unknown [id number] 2.16.840.1.461656.3.579. 2.356 1942 Unknown [id number] 2.16.840.1.459603.3.579. 2.356 1942 Unknown [id number] 2.16.840.1.736593.3.579. 2.356 1942 Unknown [id number] 2.16.840.1.125578.3.579. 2.356 1942 Unknown [id number] 2.16.840.1.158121.3.579. 2.356 1942 Unknown [id number] 2.16.840.1.089658.3.579. 2.356 1942 Unknown [id number] 2.16.840.1.499642.3.579. 2.356 1942 Unknown [id number] 2.16.840.1.732949.3.579. 2.1259 1942 Unknown [id number] 2.16.840.1.824206.3.579. 2.1259 1942 Unknown [id number] 2.16.840.1.866047.3.579. 2.1259 1942 Unknown [id number] 2.16.840.1.934573.3.579. 2.1259 1942 Unknown [id number] 2.16.840.1.361172.3.579. 2.1259 1942 Unknown [id number] 2.16.840.1.416929.3.579. 2.1259 Unknown [id number] 2.16.840.1.331074.3.579. 2.531 Unknown [id number] 2.16.840.1.865897.3.579. 2.531 Unknown [id number] 2.16.840.1.041758.3.579. 2.531 Unknown [id number] 2.16.840.1.741573.3.579. 2.531 Unknown [id number] 2.16.840.1.431579.3.579. 2.531 Unknown [id number] 2.16.840.1.597418.3.579. 2.531 Social History Date Type Detail Facility Start: 01-03-2022 End: 07-14-2023 Tobacco smoking status NHIS Ex-smoker (finding) [facility] Start: 1940 Sex Assigned At Female [facility] Tobacco smoking consumption unknown [facility] Start: 10-07-2023 End: 05-11-2024 No alcohol use No alcohol use -[facility] 250 DO Work Phone: Comment on above: 1 pack daily- Quit i n 1990s; Start: 10-07-2023 End: 05-11-2024 Sex Assigned At [facility] [employer] Other History of tobacco use Current smoker [facility] History of tobacco use Cigarette Smoker [facility] Start: 07-14-2023 Tobacco use and exposure Smokeless tobacco non-user [facility] Start: 1940 Sex assigned at Not on file [facility] Start: 03-22-2024 Sex Female (finding) [facility] Goals Date Patient Goal Desired Activity /State Functional Status Date Assessment Result Facility 01-02-2022 Functional status Patient at Baseline [facility] Work Phone: Bladder: fully continent [facility] Mental Status Date Assessment Result Facility 01-17-2022 Mentally alert [facility] 01-02-2022 Cognitive function Cognitive Sta tus Patient at Baseline [facility] Work Phone: Clinical Notes 01-02-2022 to 06-01-2024 Jonathon Kaur MD - 05/11/2024 1:47 PM Laila Kaur MD - 05/11/2024 1:00 PM ESTTelephone Encounter - CHARO SAHNI - 03/28/2024 1:03 PM Laila Kaur MD - 01/12/2024 11:30 AM EDT Note Date & Type Note Facility 06-01-2024 Note [facility] Cardiology Clinic Note Chief Complaint: Patient here for 5 mo follow up CAD, HFrEF, and hypertension. She was seen in [facility] ED yesterday. BP was 174/60 in the ED. Says at home before she went in, her BP was [address] Kaur reduced amlodipine to 5mg a few weeks ago she said. BP was 130/40 at his office. Denies chest pain and palpitations. C/o intermittent DICKERSON and lightheadedness. She is not taking aspirin. HPI: Cely Finch is a 84 y.o. female with a history of hypertension and dyslipidemia and recent coronary artery bypass graft surgery here to establish care. In December, she was feeling unwell, she was brought to the [facility] and found to have a non-ST elevation myocardial infarction. She was subsequently transferred to [facility] for cardiac catheterization and then [facility] for bypass surgery. She has been doing well since. She currently denies exertional symptoms UPDATE 07/19/2023 She presented to [facility] ED last month for BP over [...] dizziness She has no new cardiovascular symptoms UPDATE 06/01/2024 As above Cardiology ROS: Review of Systems Cardiovascular: Positive for dyspnea on exertion. Hematologic/Lymphatic: Bruises/bleeds easily. Musculoskeletal: Positive for arthritis and joint pain. Neurological: Positive for dizziness and light-headedness. All other systems reviewed and are negative. Past Medical History She has a past medical history of Abnormal ECG, Arrhythmia, Carotid artery stenosis, Coronary artery disease, Hyperlipidemia, Hypertension, Hyponatremia, Myocardial infarction (CMS/HCC), and PVC (premature ventricular contraction). Surgical History She has a past surgical history that includes Cardiac catheterization; Coronary artery bypass graft; Cholecystectomy; and Elbow surgery. Social History She reports that she has quit smoking. Her smoking use included cigarettes. She has never used smokeless tobacco. She reports that she does not currently use alcohol. She reports that she does not use drugs. Family History Family History Problem Relation Name Age of Onset Valvular heart disease Mother Heart attack Father Heart attack Brother Coronary artery disease Brother Allergies Chlorthalidone and Spironolactone Medications Current Outpatient Medications: amLODIPine (Norvasc) 5 mg tablet, Take 10 mg by mouth in the morning., Disp: , Rfl: aspirin 81 mg EC tablet, Take 81 mg by mouth in the morning., Disp: , Rfl: atorvastatin (Lipitor) 80 mg tablet, Take 80 mg by mouth at bedtime., Disp: , Rfl: carvedilol (Coreg) 12.5 mg tablet, TAKE 1 TABLET BY MOUTH TWICE DAILY (WITH BREAKFAST and WITH evening meal) *STOP METOPROLOL*, Disp: 180 tablet, Rfl: 3 carvedilol (Coreg) 25 mg tablet, Take 25 mg by mouth with breakfast and with evening meal., Disp: , Rfl: chlorthalidone (Hygroton) 25 mg tablet, Take 0.5 tablets (12.5 mg) by mouth in the morning. (Patient not taking: Reported on 01/10/2024), Disp: 45 tablet, Rfl: 3 clopidogrel (Plavix) 75 mg tablet, Take 75 mg by mouth in the morning., Disp: , Rfl: inFLIXimab (Remicade) 100 mg injection, Infuse into a venous catheter., Disp: , Rfl: levothyroxine (Synthroid, Levoxyl) 100 mcg tablet, Take 88 mcg by mouth in the morning., Disp: [...] (25 mg) by mouth once daily as directed. (Patient not taking: Reported on 01/10/2024), Disp: 90 tablet, Rfl: 3 Last Recorded Vitals BP 162/72 (BP Location: Left arm, Patient Position: Sitting) Pulse 69 Ht 1.626 m (5' 4 ) Wt 59 kg (130 lb) SpO2 97% BMI 22.31 kg/m??? Physical Examination: GENERAL: alert and oriented x3, well developed, in no acute distress. HEAD: atraumatic, normocephalic. EYES: GEORGE, EOMI. NECK: trachea midline, no JVD present, no carotid bruits present. CARDIAC: S1, S2 present. RRR. No murmur, rubs, or gallops. RESPIRATORY: CTAB, no increased effort of breathing, no rales, rhonchi, or wheezing. ABDOMEN: soft, nontender, nondistended. EXTREMITIES: no (more content not included)... [facility] 05-11-2024 History of Presen t illness Narrative [...] were not included. Subjective Patient ID: Cely Finch is a 84 y.o. female who presents [...] (CMS/HCC) Relevant Orders Lipid panel Adult hypothyroidism (CMS/HCC) Relevant Orders TSH T4, free T3, free Arthritis, rheumatoid (CMS/HCC) Stage 3a chronic kidney disease (CKD) ([facility]/HCC) Relevant Orders Basic metabolic panel Encounter for [...] 5 MG tablet documented in this encounter [facility] 03-28-2024 Telephone encounter Note Patient called states when she was in hospital in Dec, the hospital doctor increased her amlodipine to 10 mg, she now needs a refill, and would like to stay at 10mg [facility] 03-28-2024 Miscellaneous Notes Patient called states when she was in hospital in Dec, the hospital doctor increased her amlodipine to 10 mg, she now needs a refill, and would like to stay at 10mg documented in this encounter [facility] 01-12-2024 History of Presen t illness Narrative Associated Problem(s): Essential hypertension, benign (CMS/HCC) BP controlled and monitor PRN. Associated Problem(s): Postmenopausal Due for DEXA and will call rheum. Associated Problem(s): Arthritis, rheumatoid ([facility]) Mild stiffness and follow with rheumatology. Associated Problem(s): Closed fracture of transverse process of lumbar vertebra with routine healing Healing well and use OTC PRN. Start PT. Images from the original note were not included. Subjective Patient ID: Cely Finch is a 83 y.o. female who presents for Follow-up ([facility] f/up broken back). Hospital follow up from [...] will call rheum. documented in this encounter [facility] 01-10-2024 Note [facility] Cardiology Clinic Note Chief Complaint: Patient here for 2 mo follow up CAD, HFrEF, and hypertension. She was started on chlorthalidone at last visit in Oct 2023. She wasn't able to tolerate this, so Dr. Mcguire started spironolactone. She wasn't able to tolerate this either due to dizziness, nausea, and fatigue. Patient was admitted to [facility] last week for fall. Amlodipine was doubled to 10mg, and lisinopril was doubled to 20mg daily. Denies chest pain and SOB. Says BP's since hospital discharge have been running 140-156 systolic. HPI: Cely Finch is a 83 y.o. female with a history of hypertension and dyslipidemia and recent coronary artery bypass graft surgery here to establish care. In December, she was feeling unwell, she was brought to the [facility] and found to have a non-ST elevation myocardial infarction. She was subsequently transferred to [facility] for cardiac catheterization and then [facility] for bypass surgery. She has been doing well since. She currently denies exertional symptoms UPDATE 07/19/2023 She presented to [facility] ED last month for BP over [...] no lower ext (more content not included)... [facility] 10-18-2023 Note [facility] Cardiology Clinic Note Chief Complaint: Patient here for 6 mo follow up CAD, chronic systolic heart failure, and hypertension. Had routine labs last week with lipid panel. She presented to [facility] ED last month for BP over [...] feeling unwell, she was brought to the [facility] and found to have a non-ST elevation myocardial infarction. She was subsequently transferred to [facility] for cardiac catheterization and then [facility] for bypass surgery. She has been doing well since. She currently denies exertional symptoms UPDATE 07/19/2023 She presented to [facility] ED last month for BP over [...] 70% stenosis Circumflex (more content not included)... [facility] 09-30-2023 Note [facility] Cardiology Clinic Note Chief Complaint: Patient here for 6 mo follow up CAD, chronic systolic heart failure, and hypertension. Had routine labs last week with lipid panel. She presented to [facility] ED last month for BP over [...] feeling unwell, she was brought to the [facility] and found to have a non-ST elevation myocardial infarction. She was subsequently transferred to [facility] for cardiac catheterization and then [facility] for bypass surgery. She has been doing well since. She currently denies exertional symptoms UPDATE 07/19/2023 She presented to [facility] ED last month for BP over [...] left anterior descend (more content not included)... [facility] 07-19-2023 Note [facility] Cardiology Clinic Note Chief Complaint: Patient here for 6 mo follow up CAD, chronic systolic heart failure, and hypertension. Had routine labs last week with lipid panel. She presented to [facility] ED last month for BP over 200 systolic. Denies chest pain, SOB, and palpitations. HPI: Cely Finch is a 83 y.o. female with a history of hypertension and dyslipidemia and recent coronary artery bypass graft surgery here to establish care. In December, she was feeling unwell, she was brought to the [facility] and found to have a non-ST elevation myocardial infarction. She was subsequently transferred to [facility] for cardiac catheterization and then [facility] for bypass surgery. She has been doing well since. She currently denies exertional symptoms UPDATE 07/19/2023 She presented to [facility] ED last month for BP over [...] lateral segment lef (more content not included)... [facility] 04-21-2022 Evaluation note Encounter Date Diagnosis [...] 6 months with a repeat duplex examination. [facility] Other 01-23-2023 Evaluation note* Encounter Date Diagnosis [...] after discussion if her anatomy is acceptable. [facility] Other 10-31-2022 History of Present illness Narrative* I reviewed her at the clinic today. She underwent coronary bypass grafting x3 on January 12 background of impaired left ventricular function. She has made an excellent recovery. At review today she had no complaints. * She has been followed up at the cardiology clinic and is keen to start rehab. [id number] Tierar [address] [place] Work Phone: 1(824) 214-506410-31-2022 Reason for referral (narrative)* Reason for Referral: OT re-eval s/p CABG x3 (01/12) [facility]10-24-2022 Progress note Author Vandana Torres [facility] January 05, 2022 11:26am Note Date/Time January 05, 2022 1 1:26am [facility] [address] [place] [address] Hospitalist Progress Note Signed Patient: Cely Finch MR#: [id number] : 1940 Acct:[id number] Age/Sex: 81 / F Adm Date: 2 Loc: Room: 2O1253-2 Type: ADM IN Attending Dr: Vandana Torres MD Copies to: ~ Date of Service: 01/05/2022 Subjective Subjective Narrative: Patient examined bedside with no overnight event. She denies any chest pain. Seen by cardiology and scheduled for cardiac cath later today. ASSESSMENT AND PLAN: 81F with PMH of RA, Hypothyroidism who p/w fall to [facility] and transferred for the evaluation and treatment of possible NSTEMI NSTEMI with Cardiomyopathy No chest pain today at rest, Feeling better The patient presents with chest pain after a fall. Troponin is elevated up to 8000 CXR ([facility] ED) reported as no acute cardiopulmonary [...] with right elbow laceration Right elbow XR ([facility]) reported as no Fx CT brain ([facility]) reported no acute intracranial process CT cervical spine without contrast ([facility]) reported DJD no acutebony injury [...] signed by Vandana Torres MD> 01/05/22 [address] [facility] Work Phone: 1(952) 983-949410-24-2022 Progress note Author Gold Patrick [facility] January 05, 2022 11:26am Note Date/Time January 05, 2022 1 1:26am [facility] [address] [place] [address] Cardiology Progress Note Signed Patient: Cely Finch MR#: [id number] : 1940 Acct:[id number] Age/Sex: 81 / F Adm Date: 2 Loc: Room: [address] [place] [address] Type: ADM IN Attending Dr: Vandana Torres [...] MPV Neut % (Auto) Lymph % (Auto) [place] % (Auto) Eos % (Auto) Baso % (Auto) Neut # (Auto) Lymph # (Auto) [place] # (Auto) Eos # (Auto) Baso # [...] % (Auto) 61.8 Lymph % (Auto) 25.1 [place] % (Auto) 9.2 Eos % (Auto) 2.9 Baso % (Auto) 1.0 Neut # (Auto) 4.9 Lymph # (Auto) 2.0 [place] # (Auto) 0.7 Eos # (Auto) 0.2 [...] MPV Neut % (Auto) Lymph % (Auto) [place] % (Auto) Eos % (Auto) Baso % (Auto) Neut # (Auto) Lymph # (Auto) [place] # (Auto) Eos # (Auto) Baso # [...] signed by MD Gold Patrick> 01/05/22 [address] [facility] Work Phone: 1(447) 556-703610-24-[address] [facility]10-23-2022 Progress note Author Jaya Bae [facility] January 04, 2022 6:30pm Note Date/Time January 04, 2022 6 :19pm [facility] [address] [place] [address] Hospitalist Progress Note Signed Patient: Cely Finch MR#: [id number] : 1940 Acct:[id number] Age/Sex: 81 / F Adm Date: 2 Loc: Room: [address] [place] [address] Type: ADM IN Attending Dr: Jaya Bae MD Copies to: ~ Date of Service: 01/04/2022 Subjective Subjective Narrative: Hospitalist Progress Note ASSESSMENT AND PLAN: 81F with PMH of RA, Hypothyroidism who p/w fall to [facility] and transferred for the evaluation and treatment of possible NSTEMI NSTEMI with Cardiomyopathy No chest pain today at rest, Feeling better The patient presents with chest pain after a fall. Troponin is elevated up to 8000 CXR ([facility] ED) reported as no acute cardiopulmonary [...] with right elbow laceration Right elbow XR ([facility]) reported as no Fx CT brain ([facility]) reported no acute intracranial process CT cervical spine without contrast ([facility]) reported DJD no acutebony injury [...] signed by Jaya Bae MD> 01/04/22 [address] [facility] Work Phone: 1(543) 182-110910-23-2022 Progress note Author Gold Patrick [facility] January 04, 2022 11:39am Note Date/Time January 04, 2022 1 1:38am [facility] [address] [place] [address] Cardiology Progress Note Signed Patient: Cely Finch MR#: [id number] : 1940 Acct:[id number] Age/Sex: 81 / F Adm Date: 2 Loc: Room: [address] [place] [address] Type: ADM IN Attending Dr: Jaya Bae [...] MPV Neut % (Auto) Lymph % (Auto) [place] % (Auto) Eos % (Auto) Baso % (Auto) Neut # (Auto) Lymph # (Auto) [place] # (Auto) Eos # (Auto) Baso # [...] % (Auto) 53.5 Lymph % (Auto) 32.1 [place] % (Auto) 10.5 Eos % (Auto) 2.9 Baso % (Auto) 1.0 Neut # (Auto) 3.0 Lymph # (Auto) 1.8 [place] # (Auto) 0.6 Eos # (Auto) 0.2 [...] MPV Neut % (Auto) Lymph % (Auto) [place] % (Auto) Eos % (Auto) Baso % (Auto) Neut # (Auto) Lymph # (Auto) [place] # (Auto) Eos # (Auto) Baso # [...] By: <Electronically signed by MD Gold Patrick> 01/04/221138 [facility] Work Phone: 1(535) 703-776910-23-2022 Progress note Author Jaya Bae [facility] January 04, 2022 12:52am Note Date/Time January 03, 2022 7 :13pm [facility] [address] [place] [address] Hospitalist Progress Note Signed Patient: Cely Finch MR#: [id number] : 1940 Acct:[id number] Age/Sex: 81 / F Adm Date: 2 Loc: Room: [address] [place] [address] Type: ADM IN Attending Dr: Jaya Bae MD Copies to: ~ Date of Service: 01/03/2022 Subjective Subjective Narrative: Hospitalist Progress Note ASSESSMENT AND PLAN: 81F with PMH of RA, Hypothyroidism who p/w fall to [facility] and transferred for the evaluation and treatment of possible NSTEMI NSTEMI with Cardiomyopathy No chest pain today at rest The patient presents with chest pain after a fall. Troponin is elevated up to 8000 CXR ([facility] ED) reported as no acute cardiopulmonary abnormality Serial EKG shows NSR, no acute changes LDL 133, HDL 49 Mg wnl Echocardiogram shows EF 40%, severe hypokinesis of the mid to distal anteroseptal wall and apex, Nitroglycerin prn Morphine prn Telemetry Antiplatelet: Aspirin Anticoagulation: Heparin Drip Beta kristal therapy Cardiology was consulted, recommendation appreciated. For [facility] on Wednesday Mechanical Fall with right elbow laceration Right elbow XR ([facility]) reported as no Fx CT brain ([facility]) reported no acute intracranial process CT cervical spine without contrast ([facility]) reported DJD no acutebony injury [...] bed. feeling little . anxious about the [facility] will add xanax as needed ROS: [...] By: <Electronically signed by Jaya Bae MD> 01/04/222 [facility] Work Phone: 1(945) 651-243310-22-2022 Consult note Author Gold Patrick [facility] January 03, 2022 1:48pm Note Date/Time January 03, 2022 1 :39pm [facility] [address] [place] [address] Cardiology Consult Note Signed Patient: Cely Finch MR#: [id number] : 1940 Acct:[id number] Age/Sex: 81 / F Adm Date: 2 Loc: 4P Room: 1D8212-7 Type: ADM IN Attending Dr: Jaya Bae [...] to her around 11:00. She went to [facility] where a suspicion of acute coronary [...] Lymph # (Auto) 1.3 2.1 (1.00-4.8) x10E3/uL [place] # (Auto) 0.4 0.8 (0.0-0.8) x10E3/uL Eos [...] <Electronically signed by MD Gold Patrick> 01/03/22 7197 [facility] Work Phone: 1(890) 482-472210-22-2022 History and physical note Author Jaya Bae [facility] January 02, 2022 11:51pm Note Date/Time January 02, 2022 1 1:51pm [facility] [address] [place] [address] Hospitalist H&P Signed Patient: Cely Finch MR#: [id number] : 1940 Acct:[id number] Age/Sex: 81 / F Adm Date: 2 Loc: Room: [address] [place] [address] Type: ADM IN Attending Dr: Kyree Blair MD Copies to: MD Jonathon Smith MD Marwan Wassouf, MD~ HPI DATE OF EXAMINATION: 01/02/22 HISTORY OF PRESENT ILLNESS: This is a pleasant 81F with PMH of RA, Hypothyroidism who p/w fall to [facility] and transferred for the evaluation and [...] elbowafter the fall. as per record form [facility] she had one episode of nausea and vomited there. She denies any vision changes, weakness, loss of consciousness, slurred speech. no exacerbating or alleviating factors. no similar symptoms in the past. Her father at the age of 82 of [place]. no historyof any CAD or stress tests. [...] % (Auto) 15.9 % (.) 01/02/22 20:45 [place] % (Auto) 5.5 % (.) 01/02/22 20:45 Eos % (Auto) 0.1 % (.) 01/02/22 20:45 Baso % (Auto) 0.6 % (.) 01/02/22 20:45 Neut # (Auto) 6.3 x10E3/uL (1.8-7.7) 01/02/22 20:45 Lymph # (Auto) 1.3 x10E3/uL (1.00-4.8) 01/02/22 20:45 [place] # (Auto) 0.4 x10E3/uL (0.0-0.8) 01/02/22 20:45 [...] of RA, Hypothyroidism who p/w fall to [facility] ED and transferred for the evaluation and treatment of possible NSTEMI NSTEMI No chest pain now The patient presents with chest pain after a fall . Troponin is elevated She was given aspirin in the ambulance. Her EKG reported some ectopy (no EKG wassent with the patient) she supposed to be on heparin drip but she arrived not onany drip CXR ([facility] ED) reported as no acute cardiopulmonary abnormality EKG was ordered on arrival (i personally reviewed it) shows NSR@68 bpm no acute changes Nitroglycerin prn Morphine prn Telemetry Antiplatelet: Aspirin Anticoagulation: start Heparin Drip Beta kristal therapy Serial EKGs Repeat Troponin Lipid panel in am Echocardiogram Cardiology consult Mechanical Fall with right elbow laceration Right elbow XR ([facility] ED) reported as no Fx CT brain ([facility] ED) reported no acute intracranial process CT cervical spine without contrast ([facility] ED) reported DJD no acutebony injury [...] <Electronically signed by Jaya Bae MD> 01/02/22 1968 [facility] Work Phone: [phone]) 122-749410-21-2022 NotePROCEDURE: XR ELBOW RT MIN 3 VIEWS COMPARISON: 09/02/2020 HISTORY: Falls FINDINGS: BONES:Remote traumatic injury of the distal humerus with internal fixation utilizing 2 plates and screws. Severe degenerative changes with lffu-vi-skfi articulation and marginal osteophyte formation. No definite acute fracture or dislocation SOFT TISSUES:Negative. No visible soft tissue swelling. EFFUSION:None visible. OTHER: Limited nonstandard, nonorthogonal projections IMPRESSION: No acute fracture Electronically authenticated by: BUD BROUSSARD Date: 2022-01-02 13:44[facility]10-21-2022 NotePROCEDURE: CT CSPINE WO CON COMPARISON: None. [...] Electronically authenticated by: BUD BROUSSARD Date: 2022-01-02 13:41[facility] Author Vandana Torres [facility] January 06, 2022 1:35pm Note Date/Time January 06, 2022 1 :31pm [facility] [address] [place] [address] Discharge Summary Signed Patient: Cely Finch MR#: [id number] : 1940 Acct:[id number] Age/Sex: 81 / F Adm Date: 2 Loc: Room: [address] [place] [address]: Vandana Torres MD Copies to: [...] facility due to concern for non-ST elevated AK. She initially presented to ER after a fall leading to chest pain with diaphoresis. Her labs showed elevated troponin and was transferred to [facility] for further management. ED she [...] by cardiology. Patient has [facility] and transferred upon [...] Other Diet: Low-Fat and Low-Sodium Additional Instructions: [facility] to manage care: - Full code [...] and as needed. DISCHARGE INSTRUCTIONS FOR CARDIAC INVESTIGATIVE AGENT PHONE NUMBER OF YOUR PHYSICIAN: [phone] PROCEDURE: Heart Cath The following instructions have [...] cold, numb, blue or white, call the burner shaft immediately. 4. ACTIVITY: You are advised to [...] bottle, follow the instructions on the bottle. [facility] is not responsible for incorrect [...] - Documented By: Vandana Torres MD 01/06/22 1327 Signed By: <Electronically signed by Vandana Torres MD> 01/06/22 4812 [facility] Work Phone: Evaluation note* Diagnosis Onset Date Resolution Status Hypertension acute Hypothyroid acute Ischemic cardiomyopathy acut e NSTEMI (non-ST elevated myocardial infarction) acute Rheumatoid arthritis acute [facility] Work Phone: Evaluation note* Extremities: pitting LE edema R>L; well perfusedNeurological: awake; A&Ox4; no focal defPsychological: Appropriate mood and behaviorSkin: warm and dryINCISIONS: midsternal, R leg SENIOR RESEARCH ANALYST, well approx, w/o s/s infectionEyes: clear scleraRespiratory/Thorax: nonlabored; fair inspir effort and cough; mildly diminished bases; on RAsternum stableHead/Neck: neck suppleCardiovascular: RRR, no m/g/rTele: SR 60s-80sepicardial wires cappedGastrointestinal: soft, non-tender, mildly distended, +BS, +BMGenitourinary: voiding w/o difficulty; denies dysuriaMusculoskeletal: ROSSI, generalized weakness and deconditioningENMT: mucous membranes moist, denturesConstitutional: Awake, NAD, alert and cooperative,laying in bed * Skin comment:Skin comment: Right SVG is SENIOR RESEARCH ANALYST Left groin site is SOPHIE Pt has generalized bruising. [facility] noteNo assessment information available [facility] Work Phone: Evaluation note* Diagnosis Onset Date Resolution Status Bilateral carotid artery stenosis acute [facility] Work Phone: Evaluation note* Diagnosis Onset Date Resolution Status Occlusion and stenosis of bilateral carotid arteries acute [facility] Work Phone: Evaluation note* Diagnosis Essential hypertension, benign ([facility]/HCC)- Primary Essential hypertension, benign Chronic HFrEF (heart failure with reduced ejection fraction) ([facility]) Adult hypothyroidism ([facility]) Unspecified hypothyroidism Atherosclerosis of [place] coronary artery of [place] heart without angina pectoris ([facility]) Rheumatoid arthritis involving multiple sites, unspecified whether rheumatoid factor present ([facility]) Dyslipidemia ([facility]) Other and unspecified hyperlipidemia Stage 3a chronic kidney disease (CKD) ([facility]) Encounter for long-term (current) use of medications Encounter for long-term (current) use of other medications Essential hypertension, benign ([facility]/HCC)- Primary Essential hypertension, benign Hyponatremia Hyposmolality and/or hyponatremia Adult hypothyroidism ([facility]) Unspecified hypothyroidism Encounter for long-term (current) use of medications Encounter for long-term (current) use of other medications Closed fracture of transverse process of lumbar vertebra with routine healing- Primary Postmenopausal Asymptomatic postmenopausal status (age-related) (natural) Rheumatoid arthritis involving multiple sites, unspecified whether rheumatoid factor present ([facility]) Essential hypertension, benign ([facility]) Essential hypertension, benign documented in this encounter [facility] HealthcareEvaluation note* Diagnosis Essential hypertension, benign ([facility]/HCC)- Primary Essential hypertension, benign Chronic HFrEF (heart failure with reduced ejection fraction) ([facility]) Adult hypothyroidism ([facility]) Unspecified hypothyroidism Atherosclerosis of [place] coronary artery of [place] heart without angina pectoris ([facility]) Rheumatoid arthritis involving multiple sites, unspecified whether rheumatoid factor present ([facility]) Dyslipidemia ([facility]) Other and unspecified hyperlipidemia Stage 3a chronic kidney disease (CKD) ([facility]) Encounter for long-term (current) use of medications Encounter for long-term (current) use of other medications Essential hypertension, benign ([facility])- Primary Essential hypertension, benign Hyponatremia Hyposmolality and/or hyponatremia Adult hypothyroidism ([facility]) Unspecified hypothyroidism Encounter for long-term (current) use of medications Encounter for long-term (current) use of other medications Closed fracture of transverse process of lumbar vertebra with routine healing- Primary Postmenopausal Asymptomatic postmenopausal status (age-related) (natural) Rheumatoid arthritis involving multiple sites, unspecified whether rheumatoid factor present ([facility]) Essential hypertension, benign ([facility]) Essential hypertension, benign Acute low back pain, unspecified back pain laterality, unspecified whether sciatica present- Primary Closed fracture of transverse process of lumbar vertebra, initial encounter ([facility]) documented in this encounter [facility] HealthcareEvaluation note* Diagnosis Essential hypertension, benign ([facility])- Primary Essential hypertension, benign Chronic HFrEF (heart failure with reduced ejection fraction) ([facility]) Adult hypothyroidism ([facility]) Unspecified hypothyroidism Atherosclerosis of [place] coronary artery of [place] heart without angina pectoris ([facility]) Rheumatoid arthritis involving multiple sites, unspecified whether rheumatoid factor present ([facility]) Dyslipidemia ([facility]) Other and unspecified hyperlipidemia Stage 3a chronic kidney disease (CKD) ([facility]) Encounter for long-term (current) use of medications Encounter for long-term (current) use of other medications Essential hypertension, benign ([facility])- Primary Essential hypertension, benign Hyponatremia Hyposmolality and/or hyponatremia Adult hypothyroidism ([facility]) Unspecified hypothyroidism Encounter for long-term (current) use of medications Encounter for long-term (current) use of other medications Closed fracture of transverse process of lumbar vertebra with routine healing- Primary Postmenopausal Asymptomatic postmenopausal status (age-related) (natural) Rheumatoid arthritis involving multiple sites, unspecified whether rheumatoid factor present ([facility]) Essential hypertension, benign ([facility]) Essential hypertension, benign Closed fracture of transverse process of lumbar vertebra, initial encounter ([facility])- Primary Acute low back pain, unspecified back pain laterality, unspecified whether sciatica present documented in this encounter [facility] HealthcareEvaluation note* Diagnosis Essential hypertension, benign ([facility])- Primary Essential hypertension, benign Chronic HFrEF (heart failure with reduced ejection fraction) ([facility]) Adult hypothyroidism ([facility] Unspecified hypothyroidism Atherosclerosis of [place] coronary artery of [place] heart without angina pectoris ([facility]) Rheumatoid arthritis involving multiple sites, unspecified whether rheumatoid factor present ([facility]) Dyslipidemia ([facility]) Other and unspecified hyperlipidemia Stage 3a chronic kidney disease (CKD) ([facility]) Encounter for long-term (current) use of medications Encounter for long-term (current) use of other medications Essential hypertension, benign ([facility])- Primary Essential hypertension, benign Hyponatremia Hyposmolality and/or hyponatremia Adult hypothyroidism ([facility]) Unspecified hypothyroidism Encounter for long-term (current) use of medications Encounter for long-term (current) use of other medications Closed fracture of transverse process of lumbar vertebra with routine healing- Primary Postmenopausal Asymptomatic postmenopausal status (age-related) (natural) Rheumatoid arthritis involving multiple sites, unspecified whether rheumatoid factor present ([facility]) Essential hypertension, benign ([facility]) Essential hypertension, benign Essential (primary) hypertension ([facility]) Unspecified essential hypertension documented in this encounter [facility]* Diagnosis Essential hypertension, benign ([facility])- Primary Essential hypertension, benign Chronic HFrEF (heart failure with reduced ejection fraction) ([facility]) Adult hypothyroidism ([facility] Unspecified hypothyroidism Atherosclerosis of [place] coronary artery of [place] heart without angina pectoris ([facility]) Rheumatoid arthritis involving multiple sites, unspecified whether rheumatoid factor present ([facility]/HCC) Dyslipidemia ([facility]) Other and unspecified hyperlipidemia Stage 3a chronic kidney disease (CKD) ([facility]) Encounter for long-term (current) use of medications Encounter for long-term (current) use of other medications Essential hypertension, benign (CMS/HCC)- Primary Essential hypertension, benign Hyponatremia Hyposmolality and/or hyponatremia Adult hypothyroidism ([facility]) Unspecified hypothyroidism Encounter for long-term (current) use of medications Encounter for long-term (current) use of other medications Closed fracture of transverse process of lumbar vertebra with routine healing- Primary Postmenopausal Asymptomatic postmenopausal status (age-related) (natural) Rheumatoid arthritis involving multiple sites, unspecified whether rheumatoid factor present ([facility]) Essential hypertension, benign ([facility]) Essential hypertension, benign Medicare annual wellness visit, subsequent- Primary Stage 3a chronic kidney disease (CKD) ([facility]) Dyslipidemia ([facility]) Other and unspecified hyperlipidemia Encounter for long-term (current) use of medications Encounter for long-term (current) use of other medications Adult hypothyroidism ([facility]) Unspecified hypothyroidism Chronic HFrEF (heart failure with reduced ejection fraction) ([facility]) Rheumatoid arthritis involving multiple sites, unspecified whether rheumatoid factor present ([facility]) Essential hypertension, benign ([facility]/HCC) Essential hypertension, benign Essential (primary) hypertension ([facility]) Unspecified essential hypertension documented in this encounter [facility] HealthcareHistory general Narrative - Reported* Type Description Date Medical History Hypertension Surgical History cholecystectomy 2012 Surgical History CABG 2021 Hospitalization History See Above [employer] Call Other History of Present illness [id number] yo female here to establish care. Recently [...] s/p vein harvesting. No chest pain, SOB, palpitations.-[facility] [place] [address] DO Work Phone: History of Present illness Narrative* She is here for a new patient visit * She is here for follow-up after being admitted at [facility] after a mechanical fall andshe underwent a coronary artery bypass graft surgery. * She was seen also secondary to hyponatremia she has chronic hyponatremia per records with baseline sodium per the records of 04 12- * She was on urea packets, Lasix as needed and a sodium bicarbonate when she was in the hospital in [place] * In December a urine osmolality was [...] fluid intake with 6 cups per day. [facility] Work Phone: History of Present illness [id number] yo female here for follow-up. She was recently participating in cardiac rehab as she is s/p CABGand was noted to have frequent PVCs during that time. She states she was asymptomatic during this episode. She was advised to f/u with cardiology. She was also seen by nephrology who is managing hyponatremia.[facility] DO Work Phone: Hospital Discharge instructionsAmbulatory Orders* DME Home Medical Equipment Time Frame: 1 Day, Location: Determined By Patient Additional Instructions [facility] to manage care: - Full code [...] and as needed. DISCHARGE INSTRUCTIONS FOR CARDIAC INVESTIGATIVE AGENT PHONE NUMBER OF YOUR PHYSICIAN: [phone] PROCEDURE: Heart Cath The following instructions have [...] cold, numb, blue or white, call the burner shaft immediately. 4. ACTIVITY: You are advised to [...] bottle, follow the instructions on the bottle. [facility] is not responsible for incorrect prescription information provided by the patient during their visit. Do not stop your medications without consulting your health care provider. Please take the list with you to your next doctor's appointment.[facility] Work Phone: Hospital Discharge instructions* Activity:Weight- bearing Instructions: weight-bearing as tolerated. Other activity instructions: As part of your recovery process you will be referred to cardiac rehab as an outpatient. After your discharge from the hospital and home recovery period, you will have your follow up visit with your burner shaft. They will clear you to exercise and further refer you to an outpatient cardiac rehab facility. Please call [facility] Cardiac Rehabilitation at [phone] extension [phone] to set up future appointments. * Labs 1 (Modify Template):Lab Test(s): Basic Metabolic Panel, CBC, MagnesiumDate To Be Drawn: Twice weekly on Mondays and while in care home/ rehab * Oxygen:Other Instructions incentive spirometer 10x/ hr while awake. * Additional Orders:Vital Signs: Every shiftWeight: daily weights; keep a log and bring to all of your appointmentsAdditional Instructions: Keep Your Move in the Tube!! And think of a [employer] dinosaur! Please refer to the Move in [...] obtained from the Primary Care Provider or Senior Project Controls Specialist. -For severe chest pain, extreme shortness of [...] of the previous wires. No NSAIDs (common wpah-fxa-tpbzksp NSAIDs are ibuprofen/Motrin/Advil, naproxen/Naprosyn/Aleve) for 3 months after cardiac surgery; ifNSAIDs needed after 3 months, clear use with burner shaft before starting. * Wound Instructions:- Cleanse incisions with soap and water daily. No dressing, leave open to air. No lotions, creams or tub soaks/swimming until healed. * Call Provider If:- Redness, drainage or other problems with incisions, notify the Cardiac Surgeon'soffice. - Signs and symptoms of Heart Failure: call your Senior Project Controls Specialist if you have weight gain of 3 [...] Therapy Orders:Occupational Therapy Orders: Eval and Treat ([facility]), dailyPhysical Therapy Orders: Eval and Treat ([facility]), daily * Follow Up Appointment 1:Physician/Dept/Service: Dr. Albin Champagne, cardiac surgeonScheduled Date/Time: 27-Feb-2022 12:00[facility]: [phone]: 02/27at 12pm for chest xray in [facility] 5th floor radiology, then 1pm for appointment in [facility] 1800 * Follow Up Appointment 2:Physician/Dept/Service: Dr. Jonathon Kaur, PCPLocation: [place] [facility]; [address], [place] [address]Ypojf Number: [phone] * Follow Up Appointment 3:Physician/Dept/Service: Dr. Miri Hill, CardiologyReason for Referral: Heart Failure and General CardiologyScheduled Date/Time: 13-Feb-2022 11:15Location: [facility]; [address], [address] [address]Qmoin Number: [phone]: Please bring insurance information and photo ID * Follow Up Appointment 4:Physician/Dept/Service: Dr. Sivakumar Corbett, Vascular SurgeryReason for Referral: carotid stenosisScheduled Date/Time: 03-Apr-2022 09:15Location: [address] [address]Jyjxr Number: [phone]: Please bring insurance information and photo ID * Follow Up Appointment 5:Physician/Dept/Service: Dr. Kvng Romo, NephrologyScheduled Date/Time: 17-Feb-2022 13:45Location: [address] [facility] [address]Ttgik Number: [phone]: Please bring insurance information and photo ID * IV Hydration:Type Of Vascular Access: Peripheral IVPeripheral IV #1 Insertion Date: 32-[id number]-4734Jshyohquop IV #1 Location: left basilic vein (medial side of arm)Device #1: butterfly cathPeripheral IV #1 Gauge: 22 gauge * Safety:Siderails: noRestraints: noSitter: noFall Risk: dizziness, weakness * Incision 1:Location: MidsternumAppearance: WNLDressing: SOPHIE * Community Support:Support System: Family [facility] for visit Narrative* Rehabilitation - Outpatient (Routine) - Authorized Specialty Diagnoses / Procedures Referred By Contac t Referred To Contact Physical Therapy Diagnoses Fx transverse process lumbar vertebra; Lumbar fx Procedures AK PHYSICAL THERAPY EVALUATION LOW COMPLEX 20 MINS Shaikh Landeros MD [address] [place] [address] Phone: tel: fax: Jf Terrell, PT [address] [place] [address] Phone: tel: fax: Referral ID Status Reason Start Date Expiration Date V isits Requested Visits Authorized [id number] Authorized 01/12/2024 07/10/2024 30 30 [facility] HealthcareReason for visit Narrative* Rehabilitation - Outpatient (Routine) - Closed Specialty Diagnoses / Procedures Referred By Maria Elena mayorga Referred To Contact Physical Therapy Diagnoses Fx transverse process lumbar vertebra; Lumbar fx Procedures AK PHYSICAL THERAPY EVALUATION LOW COMPLEX 20 MINS Shaikh Landeros MD [address] [place] [address] Phone: tel: fax: Paloma Maxwell PT Referral ID Status Reason Start Date Expiration Date Visits Re quested Visits Authorized [id number] Closed 01/12/2024 07/10/2024 30 30 [facility] Summary Purpose Family History No Family History [...] March 21, 2024 12 :12pm Chief Complaint CELYAsa FINCH is being seen for Dr. Albin Pierce- Post CABG, HF, HTN.* NPV- Hospital follow up/ Hyponatremia * Labs 02/11/2022 Patient is here for a P/OP visit following CABG x3 done on January 12, 2022. Rehan CASTAÑEDAN, RN-BC.CELY FINCH is being seen for a medication change. Dizzness and fatigue. Additional Source Comments INFORMATION SOURCE (unrecogn ized section and content) DATE CREATED AUTHOR 01/07/2022 [facility] DATE CREATED AUTHOR AUTHOR'S ORGANIZ ATION 04/13/2022 [employer] DATE CREATED AUTHOR AUTHOR'S ORGANIZ ATION 07/02/2022 [facility] DATE CREATED AUTHOR AUTHOR'S ORGANIZ ATION 02/11/2023 [facility] DATE CREATED AUTHOR AUTHOR'S ORGANIZ ATION 03/30/2024 [facility] DATE CREATED AUTHOR AUTHOR'S ORGANIZ ATION 05/13/2024 [facility] EPIC DATE CREATED AUTHOR AUTHOR'S ORGANIZ ATION 06/05/2024 [facility] Care Teams (unrecognized sec tion and content) [...] 13, 2024 End: January 13, 2024 Rakan Del Toro MD Attending Provider Active St art: January [...] Active Wilmer Guzman MD Other Provider Active SHEA BradshawP- Other Provider Active Miri Hill MD Other [...] Provider Active S tart: December 06, 2023 Client Business Manager Relationship Specialty Start Date End Date Jonathon Kaur MD [address] [place] [phone] PCP - General Family Medicine 07/14/23 Client Business Manager Relationship Specialty Start Date End Date Jonathon Kaur MD [address] [place] [phone] PCP - General Family Medicine 07/14/23 Client Business Manager Relationship Specialty Start Date End Date Jonathon Kaur MD [address] [place] [phone] PCP - General Family Medicine 05/11/24 Client Business Manager Relationship Specialty Start Date End Date Jonathon Kaur MD [address] [place] [phone] PCP - General Family Medicine 05/11/24 Client Business Manager Relationship Specialty Start Date End Date Jonathon Kaur MD [address] [place] [address] PCP - General Family Medicine 05/11/24 <item> Privacy Markings (unrecogniz ed section and content) Section Author: Ronda Vazquez PROHIBITION ON REDISCLOSURE OF CONFIDENTIAL INFORMATION This notice accompanies a disclosure of information concerning a client made to you with the consent of such client. Reason for Visit (unrecogniz ed section and content) Reason Comments Follow-up [facility] f/up br oken back Reason Onset Date [...] BE BASED ON THE PRIMARY CLINICAL RECORDS. [facility]. provides no warranty or guarantee of the accuracy or completeness of information in this document.
--- NOTE | 2024-06-08 23:40 | ED.DIZZY1 ---
HPI - Dizziness General Chief Complaint: Dizziness Stated Complaint: HIGH BLOOD PRESSURE, NAUSEA Time Seen by Provider: 06/08/24 23:32 Source: patient Mode of arrival: ambulance Limitations: no limitations History of Present Illness HPI Narrative: patient presents complaining of feeling ill for the past month. Describes recurrent nausea and light headed dizziness. States yesterday she felt well but today the nausea and dizziness returned. she does not have a headache or extremity weakness. She came by Squad because she did not feel she could walk to the car because of the dizziness. Also complains of abdominal bloating. No diarrhea Related Data Home Medications ?Medication ?Instructions ?Recorded ?Confirmed atorvastatin 80 mg tablet 40 mg PO .qhs 06/19/23 05/31/24 clopidogrel 75 mg tablet 75 mg PO DAILY 06/19/23 05/31/24 carvedilol 12.5 mg tablet 12.5 mg PO Q12H 09/26/23 05/31/24 sodium chloride 1,000 mg soluble 1,000 mg PO BID 09/26/23 05/31/24 tablet levothyroxine 88 mcg tablet 88 mcg PO .ACB 01/05/24 05/31/24 amlodipine 10 mg tablet 5 mg PO DAILY 05/31/24 05/31/24 Previous Rx's ?Medication ?Instructions ?Recorded lisinopril 20 mg tablet 20 mg PO DAILY #30 tabs 01/05/24 Allergies Allergy/AdvReac Type Severity Reaction Status Date / Time No Known Drug Allergies Allergy Verified 06/08/24 23:15 Review of Systems ROS Status of ROS 10 or more systems reviewed and unremarkable except as noted in history and below [facility] Medical History (Updated 06/09/24 @ 03:07 by Channing Rasmussen MD) Degenerative disc disease, lumbar ?M51.369 - Other intervertebral disc degeneration, lumbar region without mention of lumbar back pain or lower extremity pain (ICD-10) Fracture of transverse process of lumbar vertebra ?S32.009A - Unspecified fracture of unspecified lumbar vertebra, initial encounter for closed fracture (ICD-10) Contusion of hip ?S70.00XA - Contusion of unspecified hip, initial encounter (ICD-10) Fall ?W19.XXXA - Unspecified fall, initial encounter (ICD-10) Rheumatoid arthritis ?M06.9 - Rheumatoid arthritis, unspecified (ICD-10) HLD (hyperlipidemia) ?E78.5 - Hyperlipidemia, unspecified (ICD-10) Hypertension ?I10 - Essential (primary) hypertension (ICD-10) Hypertension ?I10 - Essential (primary) hypertension (ICD-10) Coronary artery disease ?I25.10 - Atherosclerotic heart disease of qagan tayagungin coronary artery without angina pectoris (ICD-10) Hyponatremia ?E87.1 - Hypo-osmolality and hyponatremia (ICD-10) Weakness ?R53.1 - Weakness (ICD-10) Surgical History (Updated 09/26/23 @ 15:17 by Lorraine Mallory) History of open heart surgery (~12/2021) ?Z98.890 - Other specified postprocedural states (ICD-10) Family History (Updated 01/04/24 @ 22:26 by Goldie Nieves RN) Father Family history of myocardial infarction Family history of hypertension Sister Family history of diabetes mellitus Brother Family history of hypertension Social History (Updated 01/04/24 @ 22:28 by Goldie Nieves RN) Within the past year, how often did you have a drink containing alcohol: never Score interpretation: A score less than 3 is consistent with normal alcohol consumption. Smoking status: Former smoker Non-prescribed substance use: denies use Known occupational exposures/hazards: No Highest level of school completed/degree received: high school graduate Are you now , , , , never or living with a partner: In a typical week, how many times do you talk on the telephone with family, friends, or neighbors: 3 or more times per week How often do you get together with friends or relatives: 3 or more times per week Little interest or pleasure in doing things: not at all Feeling down, depressed, or hopeless: not at all Feel stressed/tense/nervous/anxious/difficulty sleeping: not at all Do you think of yourself as: straight/heterosexual Gender Identity: female Exam Constitutional Vital Signs, click to edit/add: Last Vital Signs Temp 98.6 F 06/08/24 23:15 Pulse 56 L 06/09/24 02:00 Resp 28 H 06/09/24 02:00 BP 123/51 06/09/24 02:00 Pulse Ox 97 06/09/24 02:00 O2 Del Method Room Air 06/08/24 23:15 Common normals: no apparent distress, average body habitus, oriented x3, no limitations, healthy appearing, alert and well nourished [facility] Common normals: normocephalic and head/scalp atraumatic Eye Common normals: PERRL, EOMs intact bilaterally and conjunctivae normal Respiratory Common normals: normal respiratory effort, no retractions, no use of accessory muscles and clear to auscultation bilaterally Cardio Common normals: regular rate, regular rhythm, S1 normal heart sound and S2 normal heart sound GI Common normals: Normal to inspection, nondistended, normoactive bowel sounds present, soft to palpation and non-tender Extremity Common normals: normal to inspection and full ROM Neuro Common normals: oriented x3, CN's II-XII intact bilaterally, moves all extremities and no focal motor deficits Other: dizziness reproduced when rising from supine to sitting position Course Vital Signs Vital signs: Vital Signs Blood Pressure 190/74 H 06/08/24 23:11 Pulse Oximetry 99 06/08/24 23:11 Temperature 98.6 F 06/08/24 23:15 Pulse Rate 56 L 06/09/24 02:00 Respiratory Rate 28 H 06/09/24 02:00 Blood Pressure 123/51 06/09/24 02:00 Pulse Oximetry 97 06/09/24 02:00 Oxygen Delivery Method Room Air 06/08/24 23:15 MDM - Dizziness MDM Narrative Medical decision making narrative: presents complaining of dizziness and nausea. No neuro deficits on exam except dizziness reproduced when rising from supine to sitting position. Treated with antivert and ativan with resolution of symptoms. Found to have serum sodium 128. Has chronic hyponatremia and takes sodium supplement daily. She is feeling better and discharged home in the care of her family to follow up with her PCP Lab Data Labs: Lab Results 06/08/24 06/09/24 Range/Units 23:30 02:20 WBC 7.4 (4.0-11.0) 10^3/uL RBC 4.58 (4.20-5.40) 10^6/uL Hgb 13.8 (12.0-16.0) g/dL Hct 39.4 (36.0-48.0) % MCV 86.0 (81.0-99.0) fL MCH 30.1 (26.7-34.0) pg MCHC 35.0 (29.9-35.2) g/dL RDW 13.3 (11.0-15.0) % Plt Count 281 (150-450) 10^3/uL MPV 10.6 (9.5-13.5) fL Neut % (Auto) 57.0 (43.0-75.0) % Lymph % (Auto) 27.0 (20.5-60.0) % Craven % (Auto) 11.3 (1.7-12.0) % Eos % (Auto) 3.7 (0.9-7.0) % Baso % (Auto) 0.7 (0.2-2.0) % Neut # (Auto) 4.2 (1.4-6.5) 10^3/uL Lymph # (Auto) 2.0 (1.2-3.8) 10^3/uL Craven # (Auto) 0.8 (0.3-0.8) 10^3/uL Eos # (Auto) 0.3 (0.0-0.7) 10^3/uL Baso # (Auto) 0.1 (0.0-0.1) 10^3/uL Abs Immat Gran (auto) 0.02 (0.00-0.03) 10^3/uL Imm/Tot Granulo (auto) 0.3 (0.0-0.5) % Sodium 128 L (136-145) mmol/L Potassium 3.9 (3.5-5.1) mmol/L Chloride 93 L (98-107) mmol/L Carbon Dioxide 25.5 (21.0-32.0) mmol/L Anion Gap 13.4 BUN 16.0 (7.0-18.0) mg/dL Creatinine 0.77 (0.55-1.02) mg/dL Est GFR ( Amer) >60 (>=60 mL/min/1.73m^2) Est GFR (Non-Af Amer) >60 (>=60 mL/min/1.73m^2) BUN/Creatinine Ratio 20.8 Glucose 115 H (74-106) mg/dL Calcium 8.9 (8.5-10.1) mg/dL Troponin I High Sens 28.4 (4.0-51.3) pg/mL Urine Color Lt. yellow (YELLOW) Urine Clarity Clear (CLEAR) Urine pH 7.0 (5.0-9.0) Ur Specific [place] 1.010 (1.005-1.025) Urine Protein Negative (NEG/TRACE) mg/dL Urine Glucose (UA) Negative (NEGATIVE) mg/dL Urine Ketones Negative (NEGATIVE) mg/dL Urine Occult Blood Negative (NEGATIVE) Urine Nitrite Negative (NEGATIVE) Urine Bilirubin Negative (NEGATIVE) Urine Urobilinogen 0.2 (0.2-1.0) EU/dL Ur Leukocyte Esterase Negative (NEGATIVE) Urine RBC 0-2 (0-2) #/HPF Urine WBC 0-2 A (NONE SEEN) #/HPF Ur Squamous Epith Cells None seen (NONE/RARE) #/LPF Urine Crystals None seen (None Seen) #/HPF Urine Bacteria None seen (NONE SEEN) #/HPF Urine Casts None seen (NONE SEEN) #/LPF Urine Mucus None seen (NONE SEEN) Ur Culture Indicated? No Discharge Plan Discharge Chief Complaint: Dizziness Clinical Impression: Hyponatremia, Dizziness Patient Disposition: Home, Self-Care Prescriptions / Home Meds: No Action atorvastatin 80 mg tablet 40 mg PO .qhs clopidogrel 75 mg tablet 75 mg PO DAILY levothyroxine 88 mcg tablet 88 mcg PO .ACB lisinopril 20 mg tablet 20 mg PO DAILY Qty: 30 0RF amlodipine 10 mg tablet 5 mg PO DAILY sodium chloride 1,000 mg tablet,soluble 1,000 mg PO BID carvedilol 12.5 mg tablet 12.5 mg PO Q12H Print Language: Venezuelan Instructions: Hyponatremia (ED), Dizziness (ED) Additional Instructions: follow up with Dr Alvarez early next week Referrals: Jonathon Alvarez MD [Primary Care Provider] - 1 week
[2024-06-09] VITALS (20 sets, daily range): BP systolic 118–164; BP diastolic 50–66; PULSE 53–75; O2SAT 96–98
[2024-06-09 00:04] LABS: Basophils Absolute Auto 0.1 10^3/uL (0.0-0.1); Basophils Percent Auto 0.7 % (0.2-2.0); Eosinophils Absolute Auto 0.3 10^3/uL (0.0-0.7); Eosinophils Percent Auto 3.7 % (0.9-7.0); Hematocrit 39.4 % (36.0-48.0); Hemoglobin 13.8 g/dL (12.0-16.0); Immature Granulocytes Abs Auto 0.02 10^3/uL (0.00-0.03); Immature Granulocytes Pct Auto 0.3 % (0.0-0.5); Mean Corpuscular Hemoglobin 30.1 pg (26.7-34.0); Mean Platelet Volume 10.6 fL (9.5-13.5); Monocytes Absolute Auto 0.8 10^3/uL (0.3-0.8); Monocytes Percent Auto 11.3 % (1.7-12.0); Neutrophils Absolute Auto 4.2 10^3/uL (1.4-6.5); Platelet Count 281 10^3/uL (150-450); Red Blood Count 4.58 10^6/uL (4.20-5.40); Red Cell Distribution Width 13.3 % (11.0-15.0); White Blood Count 7.4 10^3/uL (4.0-11.0)
[2024-06-09 00:18] LABS: Anion Gap 13.4; BUN Creatinine Ratio 20.8; Calcium 8.9 mg/dL (8.5-10.1); Carbon Dioxide 25.5 mmol/L (21.0-32.0); Chloride 93 mmol/L (98-107); Estimated GFR (African America >60 (>=60 mL/min/1.73m^2); Estimated GFR (Non-African Ame >60 (>=60 mL/min/1.73m^2); Glucose 115 mg/dL (74-106); Potassium 3.9 mmol/L (3.5-5.1); Sodium 128 mmol/L (136-145); Troponin I High Sensitivity 28.4 pg/mL (4.0-51.3)
[2024-06-09] MEDS: MECLIZINE HCL 12.5 MG TABLET 25 MG PO ×2 (00:21→03:27)
--- NOTE | 2024-06-09 00:25 | PC.NURSE ---
this patient refused CT order
[2024-06-09] MEDS: LORAZEPAM 2 MG/ML VIAL 0.5 MG IV (01:21)
[2024-06-09 02:36] LABS: Bilirubin Urine NEGATIVE (NEGATIVE); Blood Urine NEGATIVE (NEGATIVE); Clarity Urine CLEAR (CLEAR); Color Urine LT. YELLOW (YELLOW); Glucose Urine UA NEGATIVE (NEGATIVE); Ketones Urine NEGATIVE (NEGATIVE); Leukocyte Esterase Urine NEGATIVE (NEGATIVE); Nitrite Urine NEGATIVE (NEGATIVE); Protein Urine NEGATIVE (NEG/TRACE); Urobilinogen Urine 0.2 EU/dL (0.2-1.0)
[2024-06-09 02:42] LABS: Bacteria Urine NONE SEEN #/HPF (NONE SEEN); Cast Seen? NONE SEEN #/LPF (NONE SEEN); Crystals Seen? None Seen #/HPF (None Seen); Mucus Urine NONE SEEN (NONE SEEN); RBC Urine 0-2 #/HPF (0-2); Squamous Epithelial Cell Urine NONE SEEN #/LPF (NONE/RARE); Urine Culture Indicated NO; WBC Urine 0-2 #/HPF (NONE SEEN)
--- NOTE | 2024-06-09 03:31 | PC.NURSE ---
i gave this patient verbal and written discharge orders along with 1 Rx and medication to go home with, this patient voices yes to understanding these. at time of discharge this patient voices no concerns and shows no signs of distress
== END 2024-06-09 03:31 | disposition home or self-care (01) ==
PROVIDERS: Emergency Provider Internal Medicine; Family Provider Internal Medicine Interventional Cardiology; PCP Family Medicine
DX: R42 Dizziness and giddiness (principal); E87.1 Hypo-osmolality and hyponatremia; R14.0 Abdominal distension (gaseous); Z87.891 Personal history of nicotine dependence; R11.0 Nausea
CPT/HCPCS: 36415; 80048; 81001; 84484; 85025; 93005; 96374; 99284; J2060

== ENCOUNTER 2024-06-20 14:04 | Outpatient (OUT) | payer MEDICARE, OTHER, SELFPAY ==
[2024-06-20 14:31] LABS: Albumin Level 3.2 g/dL (3.4-5.0); Anion Gap 11.9; BUN Creatinine Ratio 38.5; Calcium 9.2 mg/dL (8.5-10.1); Carbon Dioxide 29.1 mmol/L (21.0-32.0); Chloride 100 mmol/L (98-107); Estimated GFR (African America >60 (>=60 mL/min/1.73m^2); Estimated GFR (Non-African Ame 56 (>=60 mL/min/1.73m^2); Glucose 93 mg/dL (74-106); Sodium 136 mmol/L (136-145)
== END 2024-06-20 14:05 | disposition home or self-care (01) ==
PROVIDERS: Family Provider Internal Medicine Interventional Cardiology; PCP Family Medicine; Visit Provider Internal Medicine Nephrology
DX: E87.1 Hypo-osmolality and hyponatremia (principal); I10 Essential (primary) hypertension
CPT/HCPCS: 36415; 80069

== ENCOUNTER 2024-09-13 10:25 | Outpatient (OUT) | payer MEDICARE, OTHER, SELFPAY ==
[2024-09-13 11:06] LABS: Albumin Level 3.0 g/dL (3.4-5.0); Anion Gap 9.7; Blood Urea Nitrogen 30.0 mg/dL (7.0-18.0); Calcium 9.0 mg/dL (8.5-10.1); Carbon Dioxide 29.5 mmol/L (21.0-32.0); Chloride 103 mmol/L (98-107); Estimated GFR (African America 59 (>=60 mL/min/1.73m^2); Estimated GFR (Non-African Ame 49 (>=60 mL/min/1.73m^2); Glucose 108 mg/dL (74-106); Magnesium 2.1 mg/dL (1.8-2.4); Potassium 4.2 mmol/L (3.5-5.1); Sodium 138 mmol/L (136-145); Uric Acid 6.9 mg/dL (2.6-6.0)
== END 2024-09-13 10:26 | disposition home or self-care (01) ==
LOC: LAB 10:25
PROVIDERS: Family Provider Internal Medicine Interventional Cardiology; PCP Family Medicine; Visit Provider Internal Medicine Nephrology
DX: E87.1 Hypo-osmolality and hyponatremia (principal); I10 Essential (primary) hypertension
CPT/HCPCS: 36415; 80069; 83735; 84550

== ENCOUNTER 2025-03-13 11:37 | Outpatient (OUT) | payer MEDICARE, OTHER, SELFPAY ==
--- OUTSIDE RECORDS SUMMARY | 2025-03-13 11:39 | XMS_ITS | Clinical Summary ---
Author Organization [facility] Healthcare Address [address] [place] [address] Care Team Providers Care Pharmaceutical Sales Specialist Name Role Phone Jonathon Alvarez MD Primary Care Provider [phone] Allergies No known active allergies Medications MedicationSigDispense QuantityRefillsLast FilledStart DateEnd DateStatus carvedilol (Coreg) 12.5 MG tablet Take 25 mg by mouth in the morning and 25 mg in the evening. Take with meals. Active lisinopril 10 MG tablet Indications:Essential hypertension, benignTAKE 1 TABLET BY MOUTH DAILY 30 tablet 4Active amLODIPine (Norvasc) 5 MG tablet Indications:Essential (primary) hypertensionTake 1 tablet (5 mg) by mouth Daily 90 tablet 5Active sodium chloride 1 g tablet Indications:Encounter for long-term (current) use of medicationsTAKE 1 TABLET BY MOUTH IN THE MORNING and ONE TABLET BY MOUTH BEFORE bedtime 60 tablet 1105Active clopidogrel (Plavix) 75 MG tablet Indications:Atherosclerotic heart disease of tangirnaq coronary artery without angina pectorisTAKE 1 TABLET BY MOUTH DAILY 30 tablet 1105Active atorvastatin (Lipitor) 80 MG tablet Indications:Hyperlipidemia, unspecifiedTAKE 1/2 (ONE-HALF) OF A TABLET BY MOUTH AT BEDTIME 15 tablet 1105Active levothyroxine (Synthroid, Levoxyl) 100 MCG tablet Indications:Hypothyroidism, unspecifiedTAKE 1 TABLET BY MOUTH DAILY 30 tablet 5Active levothyroxine (Synthroid, Levoxyl) 88 MCG tablet Indications:Adult hypothyroidismTAKE 1 TABLET BY MOUTH DAILY 30 tablet 5Active Active Problems ProblemNoted DateDiagnosed DateMedicare annual wellness visit, subsequent 05/11/2024 Assessment & Plan (05/11/2024 1:47 PM EST): Due for labs. Discussed proper diet and regular aerobic exercise. Need aerobic exercise 5-6 days a week for 30 minutes at a time. Smaller portions and limit total calories. Colonoscopy every 10 years. Tetanus every 10 years. Advised not to smoke. Closed fracture of transverse process of lumbar vertebra with routine healing 01/12/2024 Assessment & Plan (01/12/2024 11:30 AM EDT): Healing well and use OTC PRN. Start PT. Gnyxmqlhrxebek28/30/2024 Assessment & Plan (01/12/2024 11:30 AM EDT): Due for DEXA and will call rheum. Essential hypertension, imtebh6507/14/2023 Assessment & Plan (01/12/2024 11:30 AM EDT): BP controlled and monitor PRN. Assessment & Plan (10/07/2023 12:21 PM EDT): BP low and decrease lisinopril. Continue coreg and norvasc. Follow with cardiology. Assessment & Plan (07/14/2023 10:59 AM EDT): BP controlled and monitor PRN. Chronic HFrEF (heart failure with reduced ejection fraction)07/14/2023 Assessment & Plan (07/14/2023 10:59 AM EDT): No edema and continue medication. Follow with cardiology. Rmlbshyzbpfa32/01/8463Avaoowwsvqjs18/01/2024 Assessment & Plan (10/07/2023 12:21 PM EDT): Repeat labs. Adult oghpkhsavpbzhi73/01/2024 Assessment & Plan (10/07/2023 12:21 PM EDT): Decrease synthroid. Assessment & Plan (07/14/2023 10:59 AM EDT): No signs of low thyroid and due for labs. Ischemic uageyhwasqzavc14/01/2024rthritis, rxugrmnxeq77/01/2024 Assessment & Plan (01/12/2024 11:30 AM EDT): Mild stiffness and follow with rheumatology. Assessment & Plan (07/14/2023 10:59 AM EDT): Mild stiffness and follow with rheumatology. Stage 3a chronic kidney disease (CKD)07/14/2023Encounter for long-term (current) use of feubwbhncid96/01/2024therosclerosis of tangirnaq coronary artery of tangirnaq heart04/13/2022 Assessment & Plan (07/14/2023 10:59 AM EDT): No pain and follow with cardiology. Social History Tobacco UseTypesPacks/DayYears UsedDateSmoking Tobacco: FormerCigarettes Smokeless Tobacco: Never Tobacco Cessation:Counseling Given: Not Answered PHQ-2AnswerDate RecordedPatient Health Questionnaire-2 Hujml831 CommentsUnknownSex and Gender InformationValueDate RecordedSex Assigned at Not on fileLegal GkbHjcemo10/15/2023 7:39 PM EDTGender IdentityNot on fileSexual OrientationNot on file Last Filed Vital Signs Vital SignReadingTime TakenCommentsBlood Fcscasut708/40005/11/2024 1:25 PM EST Zoque702005/11/2024 1:25 PM GIUZnnuafpvchq17.9 ??C (96.6 ??F)05/11/2024 1:25 PM ESTRespiratory Kxql573005/11/2024 1:25 PM ESTOxygen Txollrkzzz52%05/11/2024 1:25 PM ESTInhaled Oxygen Concentration--Jaocxy12.4 kg (131 lb)05/11/2024 1:25 PM EST Vavjbn497.6 cm (5' 4 )05/11/2024 1:25 PM ESTBody Mass Index22.49005/11/2024 1:25 PM EST Plan of Treatment Not on [place] [phone] Care Teams Team MemberRelationshipSpecialtyStart DateEnd Date Jonathon Alvarez MD PCP - GeneralFamily Medicine05/11/24
--- OUTSIDE RECORDS SUMMARY | 2025-03-13 11:39 | XMS_ITS | Clinical Summary ---
Author Organization [facility] Address [id number] [place] [address] Care Team Providers Care Geoscience Technician Name Role Phone Unavailable Primary Care Provider Unavailabl e Allergies Active AllergyReactionsCriticalityNoted DateCommentsNo Known Drug Allergies 06/17/2016 Medications MedicationSigDispense QuantityRefillsLast FilledStart DateEnd DateStatus levothyroxine (SYNTHROID, LEVOTHROID) 75 MCG tablet Take 75 mcg by mouth daily.Active inFLIXimab (REMICADE) 10 mg/mL injection Infuse into a venous catheter once. EVERY 2-6 WEEKSActive methotrexate 2.5 mg chemo tablet Take 2.5 mg by mouth once a week. TAKE 8Active folic acid (FOLVITE) 1 mg tablet Take 1 mg by mouth daily.Active Active Problems ProblemNoted DateDiagnosed DateS/P CABG (coronary artery bypass graft)04/13/2022 Atherosclerosis of autologous vein coronary artery bypass graft04/13/2022cute myocardial infarction, subendocardial infarction, subsequent episode of care 04/13/2022therosclerosis of knik coronary artery of knik heart04/13/2022 Jqnslnyahblq70/30/2023Heart izyxspj3804/13/2022Rheumatoid bqnustwwy63/30/2023 Essential hypertension, vbjbfh9004/13/2022hronic jqykdzicw56/30/2023 Tksctdowoblfpb22/30/2023Other abnormalities of gait and yluevpsc56/30/2023nemia 04/13/2022 Family History Medical HistoryRelationNameCommentsHeart diseaseBrotherThyroid diseaseDaughter Heart diseaseFatherHypertensionMotherDiabetesSisterRelationNameStatusComments BrotherDaughterFatherDeceasedMotherDeceasedSister Social History Tobacco UseTypesPacks/DayYears UsedDateSmoking Tobacco: DysjroHlybhzjidu88 02/22/1980 - 02/22/2000Alcohol UseStandard Drinks/WeekCommentsNo0 (1 standard drink = 0.6 oz pure alcohol)ChildcareAnswerDate RecordedChildcareUnknown 08/24/2018EmploymentAnswerDate RikkhtbbYkpxcxwdkwEzczovi79/12/2019 CommentsUnknownSex and Gender InformationValueDate RecordedSex Assigned at Not on fileLegal VeiScfkxv68/06/2015 11:46 AM EDTGender IdentityNot on file Sexual OrientationNot on file Last Filed Vital Signs Vital SignReadingTime TakenCommentsBlood Rrarmyej568/60004/01/2016 2:16 PM EST Baodn582004/01/2016 2:16 PM ESTTemperature--Respiratory Ntxe066004/01/2016 2:16 PM ESTOxygen Bptttgyggf96%04/01/2016 2:16 PM ESTInhaled Oxygen Concentration-- Ycorgi60.6 kg (138 lb)04/01/2016 2:16 PM CSGZjuwos296.3 cm (5' 3.5 )04/01/2016 2:16 PM ESTBody Mass Index24.0604/01/2016 2:16 PM EST Plan of Treatment Health MaintenanceDue DateLast DoneCommentsDepression Dlboagccn78/03/1954Tobacco Xurtdkqfm63/03/1954DTaP,Tdap and Td Vaccines (1 - Tdap)1961Zoster (Shingles) Vaccine (1 of 2)1961Fall Risk Jynyikvlw04/03/2007RSV ( or age 60+ yrs) (1 - 1-dose 75+ series)2017Influenza Hogafhf4411/13/2024 Medical Devices [place] [id number]
--- OUTSIDE RECORDS SUMMARY | 2025-03-13 11:39 | XMS_ITS | Clinical Summary ---
Author Organization [facility] Address [address] [place] [address] Care Team Providers Care Squeezer Operator Name Role Phone Jonathon Alvarez MD Primary Care Provider [phone] Allergies Active AllergyReactionsCriticalityNoted DateCommentsChlorthalidoneNausea Only, Ujmkuvliv03/28/2024SpironolactoneNausea Only,Kufgrsymd99/28/2024 Medications MedicationSigDispense QuantityRefillsLast FilledStart DateEnd DateStatus atorvastatin (Lipitor) 80 mg tablet Take 80 mg by mouth at bedtime.05/29/2022ctive clopidogrel (Plavix) 75 mg tablet Take 75 mg by mouth in the morning.05/29/2022ctive levothyroxine (Synthroid, Levoxyl) 100 mcg tablet Take 88 mcg by mouth in the morning.05/29/2022ctive inFLIXimab (Remicade) 100 mg injection Infuse into a venous catheter.Active sodium chloride 1,000 mg tablet Take 0.5 g by mouth once daily as directed.06/01/2022ctive aspirin 81 mg EC tablet Take 81 mg by mouth in the morning.Active amLODIPine (Norvasc) 5 mg tablet Take 5 mg by mouth in the morning.11/26/2022ctive lisinopril 20 mg tablet Take 20 mg by mouth in the morning.09/27/2023ctive meclizine (Antivert) 12.5 mg tablet Take 12.5 mg by mouth every 6 (six) hours if needed for nausea.09/27/2023ctive chlorthalidone (Hygroton) 25 mg tablet Indications:Essential hypertensionTake 0.5 tablets (12.5 mg) by mouth in the morning. 45 tablet ctive Additional Information Patient not taking.Reported on 01/31/2025 spironolactone (Aldactone) 25 mg tablet Indications:Benign hypertensive heart disease without congestive heart failure Take 1 tablet (25 mg) by mouth once daily as directed. 90 tablet 4Active Additional Information Patient not taking.Reported on 01/31/2025 carvedilol (Coreg) 12.5 mg tablet Indications:Essential hypertensionTAKE 1 TABLET BY MOUTH TWICE DAILY (WITH BREAKFAST and WITH evening meal) *STOP METOPROLOL* 180 tablet 5Active hydrALAZINE (Apresoline) 25 mg tablet Indications:Essential hypertensionTake 1 tablet (25 mg) by mouth two times daily. 180 tablet 6Active Additional Information Patient not taking.Reported on 01/31/2025 furosemide (Lasix) 20 mg tablet Take 1 tablet by mouth Twice daily at 6am and 6pm.5Active Active Problems ProblemNoted DateDiagnosed DateMedicare annual wellness visit, subsequent 05/11/2024losed fracture of transverse process of lumbar vertebra with routine glyujhp9301/12/20243985Ujcnyqsykujpfj86/30/6130Prlrtwubmdji48/05/2024NSTEMI (non-ST elevated myocardial infarction)10/18/2023Occlusion and stenosis of bilateral carotid nquxqcvd55/05/2024dult tgljyrmzejbsdj91 Overview (07/19/2023): Last Assessment & Plan: No signs of low thyroid and due for labs. Chronic HFrEF (heart failure with reduced ejection fraction)/08/2023 Overview (07/19/2023): Last Assessment & Plan: No edema and continue medication. Follow with cardiology. Hwjlhogpzhvx11Encounter for long-term (current) use of gkyttwcvqtb28/01/202405/08/2023Ischemic elfrhrklczfxwl54Stage 3a chronic kidney disease (CKD)cute myocardial infarction, subendocardial infarction, subsequent episode of care04/13/20222813Mmlplk97/30/2023 Atherosclerosis of autologous vein coronary artery bypass graft04/13/2022 Atherosclerosis of nightm[place] coronary artery of [place] heart04/13/2022Essential hypertension, lcyfsr0404/13/2022Heart bjbqdqw9804/13/20225135Bkyebkbxjcqiom67/30/2023 Ldabawrkytuw97/30/2023Other abnormalities of gait and /30/2023hronic pihmuzpwt55/30/2023Rheumatoid lueipyyba63/30/2023S/P CABG (coronary artery bypass graft)04/13/2022 Encounters DateTypeDepartmentCare YpxfVwyndlafkem29/19/2025 1:45 PM ESTOffice Visit [facility] [address] [place] [address] Amy Mcguire MD Hx of CABG (Primary Dx); Resistant hypertension; Coronary artery disease involving nightmute coronary artery of nightmute heart without angina pectoris; Mixed hyperlipidemiafrom Last 3 Months Family History Medical HistoryRelationNameCommentsCoronary artery diseaseBrotherHeart attack BrotherHeart attackFatherValvular heart diseaseMotherRelationNameStatusComments BrotherFatherDeceasedMotherDeceased Social History Tobacco UseTypesPacks/DayYears UsedDateSmoking Tobacco: FormerCigarettesPassive Smoke Exposure: PastSmokeless Tobacco: Never Tobacco Cessation:Counseling Given: Not Answered Alcohol UseStandard Drinks/WeekCommentsNot Currently0 (1 standard drink = 0.6 oz pure alcohol)ID Safety & EnvironmentAnswerDate RecordedFear of Current or Ex-PartnerNot on file05/06/2023Emotionally AbusedNot on file05/06/2023hysically AbusedNot on file05/06/2023Sexually AbusedNot on file05/06/2023hysically or Sexually AbusedNot on file05/06/2023CommentsUnknownSex and Gender InformationValueDate RecordedSex Assigned at WhhhlHzdwoh53/17/2025 12:17 PM EST Legal NigLbberr29/29/2022 10:06 PM EDTGender WgmlliopQnpvmf38/17/2025 12:17 PM ESTSexual OrientationHeterosexual or Vvcnduml03/17/2025 12:17 PM EST Last Filed Vital Signs Vital SignReadingTime TakenCommentsBlood Qbfzvuin413/6501/31/2025 1:48 PM EST Zllkh053001/31/2025 1:48 PM ESTTemperature--Respiratory Jdxo968109/30/2023 2:11 PM EDTOxygen Ikaqagjgpc06%01/31/2025 1:48 PM ESTInhaled Oxygen Concentration-- Inutpu61.4 kg (120 lb)01/31/2025 1:48 PM DUNZkxilh627.6 cm (5' 4 )01/31/2025 1:48 PM ESTBody Mass Index20.6104/02/2024 1:48 PM EST Plan of Treatment Health MaintenanceDue DateLast DoneCommentsMedicare Annual Wellness (AWV) 2Depression Ekhkrhcup31[birth year]03/1952Pneumococcal Vaccine: 50+ Years (1 of 2 - PCV)1Adult Jjrtjmd8202/15/1964Zoster Vaccines (1 of 2)02/15/1992Fall Risk Kojhqsxjt80/03/2007COVID-19 Vaccine (1 - season)2024Influenza Vaccine (#1)2024HIB VaccinesAged OutNo longer eligible based on patient's age to complete this topicHPV VaccinesAged OutNo longer eligible based on patient's age to complete this topicIPV VaccinesAged OutNo longer eligible based on patient's age to complete this topicMeningococcal B VaccineAged OutNo longer eligible based on patient's age to complete this topicMeningococcal VaccineAged OutNo longer eligible based on patient's age to complete this topicRotavirus VaccinesAged OutNo longer eligible based on patient's age to complete this topic Insurance MemberSubscriberPlan / Payer (Effective 2007-Present)Name:Cely Finch Member ID:[id number] Relation to Subscriber:SelfName:Cely Finch Subscriber ID:[id number] Payer ID:[id number] Group ID:Not on file Type:Medicare Address: [facility] [id number] [place] [address] Care Teams Team MemberRelationshipSpecialtyStart DateEnd Date Jonathon Alvarez MD [address] [place] [address] [facility]06/24/22
--- OUTSIDE RECORDS SUMMARY | 2025-03-13 11:39 | XMS_ITS | Clinical Summary ---
Author Organization [facility] Address [address] [place] [address] Phone Care Team Providers Care Senior Communications Specialist Name Role Phone Jonathon Alvarez MD Primary Care Provider + Social History Tobacco UseTypesPacks/DayYears UsedDateSmoking Tobacco: Never Assessed CommentsUnknownSex and Gender InformationValueDate RecordedSex Assigned at Not on fileLegal VudRejsdg40/25/2022 10:22 AM ESTGender IdentityNot on file Sexual OrientationNot on file Last Filed Vital Signs Vital SignReadingTime TakenCommentsBlood Prsumdrl034/70003/27/2022 11:52 AM EST Qqxgi8787/13/2023 11:52 AM ESTTemperature--Respiratory Rate--Oxygen Saturation 95%02/27/2022 1:19 PM ESTInhaled Oxygen Concentration--Mljxpe60 kg (119 lb) 03/27/2022 11:52 AM ROARjbfwd409.6 cm (5' 4 )03/27/2022 11:52 AM ESTBody Mass Index20.43003/27/2022 11:52 AM EST Plan of Treatment Health MaintenanceDue DateLast DoneCommentsPneumococcal Vaccine (1 of 1 - PCV) 02/15/1992Zoster Vaccines (1 of 2)02/15/1992RSV High Risk: (Elderly (60+) or Population) (1 - 1-dose 75+ series)2017Bone Density Scan /04/2018Yearly Adult Uyvjianj65/OVID-19 Vaccine (1 - 2024-26 season)2024Influenza Vaccine (#1)2024Lipid Panel01/06/2027 2DTaP/Tdap/Td Vaccines (2 - Td or Tdap)HIB Vaccines Aged OutNo longer eligible based on patient's age to complete this topicHPV VaccinesAged OutNo longer eligible based on patient's age to complete this topic Hepatitis A VaccinesAged OutNo longer eligible based on patient's age to complete this topicHepatitis B VaccinesAged OutNo longer eligible based on patient's age to complete this topicIPV VaccinesAged OutNo longer eligible based on patient's age to complete this topicMeningococcal VaccineAged OutNo longer eligible based on patient's age to complete this topicRotavirus VaccinesAged Out No longer eligible based on patient's age to complete this topic Medical Devices ImplantedTypeAreaManufacturerDevice IdentifierShelf Expiration DateModel / Serial / LotLead, Pacing, Myocardial, Bipolar, Temporary Case [id number] Implanted:Qty: 1 on 01/12/2022 by Gil Johnson MD PhDCardiac Pacemaker [employer] [id number] / / Description:Converted from [facility]. Please see archived information for full log information.Lead, Pacing, Cardiac, Temporary, W/Suture, Flexon, 2-0, 24 Case [id number] Implanted:Qty: 2 on 01/12/2022 by Gil Johnson MD PhDCardiac PacemakerFORMERLY [id number] / / [id number]:Converted from [facility]. Please see archived information for full log information.Lead, Pacing, Myocardial, Bipolar, Temporary Case [id number] Implanted:Qty: 1 on 01/12/2022 by Gil Johnson MD [employer]DCardiac Pacemaker [employer] [id number] / / Description:Converted from [facility]. Please see archived information for full log information. Procedures Procedure NamePriorityDate/TimeAssociated DiagnosisCommentsLIPID PANELRoutine 01/06/2022 12:12 PM EDT from Last 3 Months or Most Recently Relevant to Health Maintenance Results * (ABNORMAL) Lipid Panel (01/06/2022 12:12 PM EDT)ComponentValueRef RangeTest MethodAnalysis TimePerformed AtPathologist GblpqmhfoUjzireamacx0882 - 199 mg/dLUHCMC LABComment: . ?AGE ?DESIRABLE ?? BORDERLINE HIGH ?? HIGH 0-19 Y 0 - 169 170 - 199 >/= 200 20-24 Y 0 - 189 190 - 224 >/= 225 >24 Y 0 - 199 200 - 239 >/= 240 All ranges are based on fasting samples. Specific therapeutic targets will vary based on patient-specific cardiac risk. . Pediatric guidelines reference:Pediatrics 2011, 128(S5). Adult guidelines reference: NCEP ATPIII Guidelines, ??ZARIA 2001, 258:2486-97 . Venipuncture immediately after or during the administration of Metamizole may lead to falsely low results. Testing should be performed immediately prior to Metamizole dosing. HDL39.4(A)mg/dLATRIUM HEALTHC LABComment: . ?AGE ?VERY LOW ?? LOW ? NORMAL ?HIGH ?? 0-19 Y < 35 < 40 40-45 ---- 20-24 Y ---- < 40 >45 ---- >24 Y ---- < 40 40-60 >60 . Cholesterol/HDL Ratio3.6[facility] LABComment: REF VALUES DESIRABLE < 3.4 HIGH RISK > 5.0 ZBD635 - 99 mg/dLCMC LABComment: . ? NEAR ?BORD ?AGE ?DESIRABLE ??OPTIMAL ?HIGH ? HIGH ? VERY HIGH 0-19 Y 0 - 109 --- 110-129 >/= 130 ---- 20-24 Y 0 - 119 --- 120-159 >/= 160 ---- >24 Y 0 - 99 100-129 130-159 160-189 >/=190 . JDPL768 - 40 mg/dLCMC KTDEqjiwqxbtyqfx2678 - 149 mg/dLCMC LABComment: . ?AGE ?DESIRABLE ?? BORDERLINE HIGH ?? HIGH ? VERY HIGH 0 D-90 D ?19 - 174 ? ---- ? ---- ?---- 91 D- 9 Y 0 - 74 75 - 99 >/= 100 ---- 10-19 Y 0 - 89 90 - 129 >/= 130 ---- 20-24 Y 0 - 114 115 - 149 >/= 150 ---- >24 Y 0 - 149 150 - 199 200- 499 >/= 500 . Venipuncture immediately after or during the administration of Metamizole may lead to falsely low results. Testing should be performed immediately prior to Metamizole dosing. Specimen (Source)Anatomical Location / LateralityCollection Method / Volume Collection TimeReceived Time01/06/2022 12:12 PM EDT1 1:46 PM EDT Narrative Authorizing ProviderResult TypeResult StatusTalambrocio Blum APRN-[facility] BLOOD ORDERABLESFinal ResultPerforming OrganizationAddressCity/State/ZIP CodePhone Number [facility] [address] [phone] from Last 3 Months or Most Recently Relevant to Health Maintenance Care Teams Team MemberRelationshipSpecialtyStart DateEnd Date Jonathon Alvarez MD PCP - Rtmupoe43/2/22
[2025-03-13 12:11] LABS: Albumin Level 3.2 g/dL (3.4-5.0); Anion Gap 13.8; Blood Urea Nitrogen 33.0 mg/dL (7.0-18.0); Calcium 9.0 mg/dL (8.5-10.1); Carbon Dioxide 28.3 mmol/L (21.0-32.0); Chloride 102 mmol/L (98-107); Estimated GFR (African America 52 (>=60 mL/min/1.73m^2); Estimated GFR (Non-African Ame 43 (>=60 mL/min/1.73m^2); Glucose 94 mg/dL (74-106); Potassium 4.1 mmol/L (3.5-5.1); Sodium 140 mmol/L (136-145)
== END 2025-03-13 11:38 | disposition home or self-care (01) ==
PROVIDERS: Family Provider Internal Medicine Interventional Cardiology; PCP Family Medicine; Visit Provider Internal Medicine Nephrology
DX: E87.1 Hypo-osmolality and hyponatremia (principal); I10 Essential (primary) hypertension
CPT/HCPCS: 36415; 80069